=== PATIENT | female | born 1950 | race Caucasian/White ===

== ENCOUNTER 2020-03-21 10:30 | Outpatient (REF) | payer MEDICARE, SELFPAY ==
--- NOTE | 2020-03-21 | XR_ITS ---
EXAMINATION: XR CHEST CLINICAL INFORMATION: Asthma COMPARISON: 06/15/2019 TECHNIQUE: 2 views of the chest were obtained. FINDINGS: No focal consolidation, pulmonary edema, or pleural effusion. The lungs are hyperinflated. Stable cardiomediastinal silhouette. IMPRESSION: No acute cardiopulmonary findings. COPD.
== END 2020-03-21 10:31 | disposition home or self-care (01) ==
LOC: HO.HMGCX 10:30
PROVIDERS: PCP Family Medicine; Visit Provider Internal Medicine
DX: J45.40 Moderate persistent asthma, uncomplicated (principal)
CPT/HCPCS: 71046

== ENCOUNTER → 2020-07-17 11:40 | Outpatient (BNV) | payer MEDICARE, SELFPAY | PROVIDERS: Visit Provider Internal Medicine Medical Oncology | DX: D64.9 Anemia, unspecified (principal); D51.9 Vitamin B12 deficiency anemia, unspecified | CPT/HCPCS: 99213; 99214; 99443 ==

== ENCOUNTER → 2020-07-23 08:25 | Outpatient (BNVA) | payer MEDICARE, SELFPAY | PROVIDERS: PCP Nurse Practitioner Family; Referring Provider Nurse Practitioner Family; Visit Provider Internal Medicine Endocrinology, Diabetes & Metabolism | DX: M81.0 Age-related osteoporosis without current pathological fracture (principal); E03.9 Hypothyroidism, unspecified; E55.9 Vitamin D deficiency, unspecified | CPT/HCPCS: 99212 ==

== ENCOUNTER 2020-07-23 09:04 | Outpatient (REF) | payer MEDICARE, SELFPAY ==
[2020-07-23 10:10] LABS: Basophils Percent Auto 1.2 % (0-2); Eosinophils Absolute Auto 0.1 X10*3/uL (0.0-0.4); Eosinophils Percent Auto 2.4 % (0-4); Hematocrit 33.9 % (37-47); Hemoglobin 10.5 g/dl (12.0-16.0); Lymphocytes Absolute Auto 1.3 X10*3/uL (1.2-4.9); Lymphocytes Percent Auto 39.4 % (20-40); MANUAL DIFF FLAG NO; Mean Corpuscular Hemoglobin 28.1 pg (27.0-33.0); Mean Corpuscular Volume 90.6 fL (80-98); Mean Platelet Volume 10.5 fL (9.4-12.3); Monocytes Absolute Auto 0.4 X10*3/uL (0.1-1.2); Monocytes Percent Auto 11.6 % (2-11); Neutrophils Absolute Auto 1.5 X10*3/uL (2.0-8.3); Neutrophils Percent Auto 45.4 % (45-73); Platelet Count 278 X10*3/uL (160-400); Red Blood Count 3.74 X10*6/uL (4.20-5.50); Red Cell Distribution Width 14.9 % (11.0-16.0); White Blood Count 3.4 X10*3/uL (4.8-10.8)
[2020-07-23 11:09] LABS: Ferritin 7 ng/mL (10-250)
[2020-07-23 11:20] LABS: Alanine Aminotransferase 12 U/L (0-31); Albumin Level 4.1 g/dL (3.5-5.0); Alkaline Phosphatase 48 U/L (39-117); Anion Gap 10 (12-20); Aspartate Amino Transferase 20 U/L (5-31); Bilirubin Total 0.4 mg/dL (0.0-1.0); Blood Urea Nitrogen 18 mg/dL (9-16); Calcium 9.3 mg/dL (8.4-10.2); Carbon Dioxide 26 mmol/L (22-29); Chloride 108 mmol/L (96-108); Estimated Glomerular Filt Rate 59; Glucose Random 125 mg/dL (60-115); Iron 69 mcg/dL (30-160); Percent Iron Saturation 17 % (15-50); Sodium 139 mmol/L (135-145); Total Iron Binding Capacity 409 mcg/dL (228-428); Total Protein 6.6 g/dL (6.5-8.0); Unsaturated Iron Binding 340 ug/dL
[2020-07-23 11:21] LABS: Folate > 20.0 ng/mL (> or = 4.0); Vitamin B12 165 pg/mL (200-900)
[2020-07-23 11:30] LABS: Free T4 (Free Thyroxine) 1.44 ng/dL (0.71-1.85); Thyroid Stimulating Hormone 0.07 uIU/mL (0.32-4.0); Vitamin D 25-OH Total 115.8 ng/mL (>30)
[2020-07-24 09:53] LABS: Calcium (PTHI) 9.7 mg/dL (8.6-10.4); PTHI 34 pg/mL (14-64)
[2020-07-27 14:56] LABS: N-Telopeptide 38 (see note); NTXCreaRU 123 mg/dL (20-275)
== END 2020-07-23 09:05 | disposition home or self-care (01) ==
LOC: HO.10HDL 09:04
PROVIDERS: Internal Medicine Medical Oncology; Visit Provider Internal Medicine Endocrinology, Diabetes & Metabolism
DX: M81.0 Age-related osteoporosis without current pathological fracture (principal); D50.9 Iron deficiency anemia, unspecified
CPT/HCPCS: 36415; 80053; 82306; 82523; 82607; 82728; 82746; 83540; 83970; 84439; 84443; 85025

== ENCOUNTER 2020-08-06 10:15 | Outpatient (REF) | payer MEDICARE, SELFPAY ==
[2020-08-06 12:56] LABS: Glucose Urine UA NEG (NEG); Leukocyte Esterase Urine 1+ (NEG); Nitrite Urine POS (NEG); PH 6.5 (5.0-8.0); Urine Blood NEG (NEG); Urine Ketones NEG (NEG); Urine Protein NEG (NEG-TRACE)
[2020-08-06 13:03] LABS: Bacteria Urine 3+ /LPF; Mucus Urine TRACE /LPF; RBC Urine 0 /HPF (0); Squamous Epithelial Cell Urine TRACE /LPF
[2020-08-06 13:56] LABS: Appearance Urine CLOUDY; Color Urine YELLOW
== END 2020-08-06 10:16 | disposition home or self-care (01) ==
LOC: HO.LAB 10:15
PROVIDERS: PCP Family Medicine; Visit Provider Internal Medicine
DX: R30.0 Dysuria (principal); E03.9 Hypothyroidism, unspecified; E53.8 Deficiency of other specified B group vitamins; E55.9 Vitamin D deficiency, unspecified; D50.9 Iron deficiency anemia, unspecified; M81.0 Age-related osteoporosis without current pathological fracture; Z79.82 Long term (current) use of aspirin; Z79.84 Long term (current) use of oral hypoglycemic drugs; Z79.899 Other long term (current) drug therapy
CPT/HCPCS: 81001; 87040; 87086; 87186; Q3014

== ENCOUNTER → 2020-08-10 10:25 | Outpatient (BNVA) | payer MEDICARE, SELFPAY | PROVIDERS: PCP Family Medicine; Visit Provider Nurse Practitioner | DX: Z13.89 Encounter for screening for other disorder (principal) | CPT/HCPCS: Q3014 ==

== ENCOUNTER → 2020-09-11 10:27 | Outpatient (BNVA) | payer MEDICARE, SELFPAY | PROVIDERS: PCP Family Medicine; Visit Provider Nurse Practitioner | DX: K59.04 Chronic idiopathic constipation (principal); K21.9 Gastro-esophageal reflux disease without esophagitis; K31.84 Gastroparesis | CPT/HCPCS: Q3014 ==

== ENCOUNTER → 2020-09-12 13:35 | Outpatient (BNVA) | payer MEDICARE, SELFPAY | PROVIDERS: PCP Family Medicine; Visit Provider Urology | DX: N39.0 Urinary tract infection, site not specified (principal) | CPT/HCPCS: 81002; 99202 ==

== ENCOUNTER 2020-09-19 09:05 | Outpatient (REF) | payer MEDICARE, SELFPAY ==
--- NOTE | ~2020-09-19 | MM_ITS ---
EXAMINATION: BONE DENSITOMETRY CLINICAL INDICATION: Osteoporosis. COMPARISON: Previous BD dated 09/10/2018 and baseline BD dated 09/29/2008. TECHNIQUE: Using a [employer] DXA System (software version: 13.1) manufactured by [employer], dual-energy x-ray absorptiometry was performed of the lumbar spine and left hip. The images are of good technical quality. Summary results are attached. FINDINGS: AP SPINE L1-L4: Current: BMD 0.707 g/cm2, Z-score -1.7, T-score -3.9, osteoporosis, 4.6% decrease from previous, 24.2% decrease from baseline (<5% change is not significant). Prior: BMD 0.741 g/cm2. Baseline: BMD 0.933 g/cm2. LEFT FEMUR, NECK: Current: BMD 0.783 g/cm2, Z-score 0.2, T-score -1.8, osteopenia. Prior: BMD 0.813 g/cm2. Baseline: BMD 0.914 g/cm2. LEFT FEMUR, TOTAL: Current: BMD 0.872 g/cm2, Z-score 0.7, T-score -1.1, osteopenia, 2.9% decrease from previous, 12.2% decrease from baseline (<5% change is not significant). Prior: BMD 0.898 g/cm2. Baseline: BMD 0.993 g/cm2. IDENTIFIED RISK FACTORS: Early menopause, osteoporosis, renal, rheumatoid arthritis, secondary osteoporosis, anticonvulsant. HISTORY OF FRACTURE: None listed. MEDICATIONS: Calcium, vitamin D. MM/XR DEXA axial skeleton IMPRESSION: 1. DIAGNOSIS: Osteoporosis based on the lowest T-score value of -3.9 in the lumbar spine applying World Health Organization criteria. 2. 10-YEAR FRACTURE RISK PREDICTION, FRAX: According to the guidelines, FRAX calculation should only be performed on patients in the osteopenia bone density category. Therefore, FRAX was not performed on this patient. 3. Treatment Recommendations: NOF guidelines recommend consideration for treatment in postmenopausal women and men age 50 and older presenting with the following: -A hip or vertebral (clinical or morphometric) fracture. -T-score less than or equal to -2.5 at the femoral neck or spine after appropriate evaluation to exclude secondary causes. -Low bone mass at the hip or spine and a 10-year fracture probability by FRAX of greater than or equal to 3% for hip fracture or greater than or equal to 20% for major osteoporotic fracture based on the [place] adapted WHO algorithm. 4. Other Recommendations: All treatment decisions require clinical judgment and consideration of individual patient factors, including patient preferences, comorbidities, previous drug use, risk factors not captured in the FRAX model (e.g. frailty, falls, vitamin D deficiency, increased bone turnover, interval significant decline in bone density) and possible under or overestimation of fracture risk by FRAX. Additional medical evaluation for secondary cause of low bone mineral density may be appropriate. FUTURE SCAN RECOMMENDATION: People with diagnosed cases of osteoporosis or at high risk for fracture should have regular bone mineral density tests. For patients eligible for Medicare, routine testing is allowed once every 2 years. The testing frequency can be increased to one year for patients who have rapidly progressing disease, those who are receiving or discontinuing medical therapy to restore bone mass, or have additional risk factors.
== END 2020-09-19 09:06 | disposition home or self-care (01) ==
LOC: HO.MAMMO 09:05
PROVIDERS: PCP Family Medicine; Visit Provider Internal Medicine Endocrinology, Diabetes & Metabolism
DX: M81.0 Age-related osteoporosis without current pathological fracture (principal); M06.9 Rheumatoid arthritis, unspecified; Z78.0 Asymptomatic menopausal state; Z79.899 Other long term (current) drug therapy
CPT/HCPCS: 77080

== ENCOUNTER 2020-10-04 10:32 | Emergency (ER) | payer MEDICARE, SELFPAY ==
--- NOTE | ~2020-10-04 | XR_ITS ---
EXAMINATION: XR LUMBOSACRAL SPINE CLINICAL INFORMATION: Pain. No trauma. COMPARISON: February 28, 2019 TECHNIQUE: Three views of the lumbosacral spine. FINDINGS: There is osteopenia visualized bones. There are 5 nonrib bearing lumbar vertebra. No acute fracture identified. There is narrowing of the L5-S1 disc space with mild grade 1 spondylolisthesis L5-S1. There is bilateral facet arthropathy at L5-S1. Pedicles intact. No evidence of widening or fusion of the sacroiliac joints. Status post previous abdominal surgery. There are prominent vascular calcifications present. XR/XR lumbar spine 2-3V IMPRESSION: No acute fracture identified. Osteopenia. Degenerative disc disease with bilateral facet arthropathy L5-S1
[2020-10-04 10:49] VITALS: BP 124/64; PULSE 84; RESP 18; TEMP 36.1; O2SAT 100; BMI 18.6
--- NOTE | 2020-10-04 10:50 | ED.BACK ---
HPI - Back Pain/Injury General Chief Complaint: General Medical Stated Complaint: back pain Time Seen by Provider: 10/04/20 10:38 Source: patient and educational interpreter Mode of arrival: ambulatory Limitations: language barrier History of Present Illness HPI Narrative: 69 yo female with a past medical history of hypertension, hyperlipidemia, hypothyroidism, fibromyalgia, diabetes, asthma, iron deficiency anemia, recurrent urinary tract infection, GERD, osteoporosis, IBS, vitamin-D deficiency here with complaints of entire back pain for 4 days. No injury or trauma. Taking tramadol with continued pain. Also having some suprapubic discomfort with urinary frequency. No dysuria, flank pain, nausea, vomiting, fevers, chills. Pain radiates to bilateral legs. There is no numbness or tingling. No bowel or bladder incontinence. MD elicited complaint: back pain Related Data Home Medications Medication Instructions Recorded Confirmed ascorbic acid (vitamin C) [Vitamin 500 mg PO BID 07/17/20 09/11/20 C] aspirin [Aspir-81] 81 mg PO DAILY 07/17/20 09/11/20 clonazepam 0.5 mg PO TID 07/17/20 09/11/20 cyanocobalamin (vitamin B-12) 1,000 mcg PO DAILY 07/17/20 09/11/20 ferrous sulfate [Iron (ferrous 325 mg PO TID 07/17/20 09/11/20 sulfate)] gabapentin 100 mg PO TID 07/17/20 09/11/20 metformin 500 mg PO DAILY 07/17/20 09/11/20 metoprolol succinate 25 mg PO DAILY 07/17/20 09/11/20 zolpidem 5 mg PO BEDTIME PRN 07/17/20 09/11/20 topiramate 50 mg tablet 0 mg PO 07/23/20 09/11/20 cyanocobalamin (vitamin B-12) 1,000 mcg SUBLINGUAL DAILY 08/10/20 09/11/20 1,000 mcg sublingual tablet fluticasone 500 mcg-salmeterol 50 ea INHALATION 08/10/20 09/11/20 mcg/dose blistr powdr for inhalation montelukast 10 mg tablet 10 mg PO DAILY 08/10/20 09/11/20 venlafaxine 150 mg 150 mg PO DAILY 08/10/20 09/11/20 capsule,extended release 24 hr zolpidem 10 mg tablet 10 mg PO BEDTIME PRN 08/10/20 09/11/20 blood sugar diagnostic #10 ea 09/12/20 calcium citrate 200 mg 2 tab PO BID 09/12/20 calcium-vitamin D3 6.25 mcg (250 unit) tablet clonazepam 1 mg tablet 1 mg PO TID PRN 09/12/20 dulaglutide 0.75 mg/0.5 mL 1.5 mg SUBCUT QWEEK 09/12/20 subcutaneous pen injector folic acid 1 mg tablet 1 mg PO DAILY 09/12/20 gabapentin 400 mg capsule 400 mg PO BID 09/12/20 lancets 33 gauge #100 ea 09/12/20 metformin 500 mg tablet,extended 500 mg PO BID 09/12/20 release 24 hr multivitamin-ferrous 0 tab PO 09/12/20 fumarate-folic acid 18 mg-400 mcg tablet sennosides 8.6 mg tablet 17.2 mg PO BEDTIME PRN 09/12/20 tiotropium bromide 1.25 2 puff PO DAILY 09/12/20 mcg/actuation mist for inhalation venlafaxine 75 mg capsule,extended 75 mg PO DAILY 09/12/20 release 24 hr Previous Rx's Medication Instructions Recorded prucalopride 2 mg tablet 2 mg PO DAILY #30 tab 03/21/20 tramadol 50 mg tablet 50 mg PO Q6H #120 tab 05/02/20 Tirosint 112 mcg capsule 112 mcg PO DAILY 30 Days #30 cap NS 07/23/20 cholecalciferol (vitamin D3) 50 50 mcg PO DAILY 30 Days #30 cap 07/23/20 mcg (2,000 unit) capsule calcium citrate 500 mg PO BID 30 Days #120 tab 08/10/20 metoclopramide HCl 10 mg tablet 10 mg PO .tid ac 30 Days #90 tab 08/10/20 omeprazole 40 mg capsule,delayed 40 mg PO BID 30 Days #60 cap 08/10/20 release sennosides 8.6 mg capsule 17.2 mg PO BEDTIME 30 Days #60 cap 08/10/20 simethicone 180 mg capsule 180 mg PO QID 30 Days #120 cap 08/10/20 methenamine hippurate 1 gram tablet 1 g PO BID 30 Days #60 tab 09/12/20 sulfamethoxazole 800 1 tab PO BID 14 Days #28 tab 03/31/21 mg-trimethoprim 160 mg tablet sulfamethoxazole 800 1 tab PO BID 14 Days #28 tab 09/12/20 mg-trimethoprim 160 mg tablet [id number] 1 cap PO QID #120 cap 09/27/20 24,000-76,000-120,000 unit capsule,delayed rel oxycodone 5 mg PO Q6H PRN #5 tab 10/04/20 sulfamethoxazole-trimethoprim 1 tab PO BID #14 tab 10/04/20 [Bactrim DS] Allergies Allergy/AdvReac Type Severity Reaction Status Date / Time No Known Allergies Allergy Verified 09/11/20 10:29 [No Known Allergies*] Review of Systems Review of Systems: Yes all other systems are reviewed and are negative Constitutional: Constitutional: Reports no additional constitutional complaints, Denies body ache(s), Denies chills, Denies fever(s), Denies headache(s) and Denies weakness Eyes: Eyes: Reports no additional eye complaints and Denies change in vision ENT: Reports system reviewed and no additional complaints, except as documented, Denies dizziness, Denies headache(s), Denies nasal congestion, Denies nasal discharge and Denies neck pain Cardiovascular: Cardiovascular: Reports no additional cardiovascular complaints, Denies chest pain, Denies leg edema and Denies dyspnea Respiratory: Respiratory: Reports no additional respiratory complaints, Denies cough and Denies dyspnea Gastrointestinal: Gastrointestinal: Reports no additional gastrointestinal complaints, Denies abdominal pain, Denies diarrhea, Denies nausea and Denies vomiting Comments: +suprapubic discomfort Genitourinary: Genitourinary: Reports no additional female genitourinary complaints and Denies urinary incontinence Musculoskeletal: Musculoskeletal: Reports no additional musculoskeletal complaints, Reports back pain, Denies arthralgias, Denies joint swelling, Denies neck pain, Denies numbness and Denies tingling Integumentary/Breasts: Skin/Breast: Reports system reviewed and no additional complaints, except as docu and Denies rash Neurologic: Reports system reviewed and no additional complaints, except as documented, Denies Abnormal speech present, Denies dizziness, Denies headache(s), Denies numbness, Denies tingling and Denies weakness PMFSH Past Medical History Medical History B12 deficiency Dysuria Hypothyroidism Iron deficiency anemia Osteoporosis Vitamin D deficiency Surgical History History of arthroscopy of left shoulder History of esophagogastroduodenoscopy (EGD) Hx of colonoscopy Family History Family History Father No problems noted. Mother Heart attack Diabetes mellitus CVD (cardiovascular disease) Arthritis of knee Stomach cancer Sister ROZ-19 Social History Social History Household Members: None Alcohol intake: current Alcohol intake frequency: does not drink Smoking Status: Never smoker Advance Directives: No Advance Directives Information Provided: No Physical Exam Vital Signs: Vital Signs: Last Vital Signs Temp 97.0 F 10/04/20 10:49 Pulse 84 10/04/20 10:49 Resp 18 10/04/20 10:49 BP 124/64 10/04/20 10:49 Pulse Ox 100 10/04/20 10:49 Body Mass Index 18.6 Const: General: cooperative, healthy appearing, comfortable and no acute distress Orientation/consciousness: patient oriented x3 Limitations: no limitations HENMT: Head: Yes normal to inspection Ears: hearing grossly normal bilaterally General nose exam: Normal external nose present Face and sinus: Yes normal facial exam Mouth: Normal oral and palatal mucosa present Throat: Yes posterior oropharynx normal Eyes: General: appearance normal, both eyes and all related structures Pupils: Equal, round and reactive pupils present Neck: Neck: Yes normal visual inspection Chest: Chest palpation & inspection: normal inspection of the chest Resp: Effort & Inspection: normal respiratory effort Auscultation: clear to auscultation bilaterally Cardio: Rate: regular rate Rhythm: regular rhythm Peripheral pulses: Peripheral pulses 2+ throughout GI: Inspection: Yes normal to inspection Palpation (GI): Soft to palpation and nontender Auscultation: normal bowel sounds Back/Spine/Pelvis: Other: Entire back tenderness more focal in the lumbar mid spine with no step-offs deformities. No flank pain. No upper midline tenderness. Pain is worsened with flexion and extension of the lumbar spine. Worsened with straight leg raise Thoracic/Lumbar Spine: thoracic and lumbar spine normal to inspection Skin: General skin exam: no rashes or lesions noted Neuro: General: patient oriented x3, no focal motor deficits and normal sensation to monofilament Cranial nerves: Yes Equal, round and reactive pupils present Cognition (Neuro): normal cognition Speech: No Abnormal speech present Gait exam (Neuro): Normal gait present Motor exam (neuro): 5/5 motor strength present throughout Sensory Exam: Normal double simultaneous stimulation for sensation Deep tendon reflexes (DTR's): Right patellar reflex intensity grade: 2+ and Left patellar reflex intensity grade: 2+ Extrem: General: Yes normal to inspection Course Course Course Narrative: 69-year-old female here with atraumatic back pain. Will check x-rays, UA. 1240-x-ray showed no acute bony abnormality. UA is consistent with the UTI. Patient has urine cultures with ESBL. Sensitive to Bactrim only. Will give course of Bactrim. There is no CVA tenderness, vomiting, fever. Patient is well-appearing. Less likely pyelonephritis. Reviewed worrisome signs and symptoms with patient with japanese interpreter. Comfortable with discharge home. Spoke to pharmacy. D/t contraindication will hold methenamine when taking bactrim. MDM - Back Pain/Injury Medical Records Attestation: I reviewed the patient's medical records. Lab Data Attestation: I reviewed the patient's lab results. Labs: Lab Results 10/04/20 Range/Units 11:23 Urine Color YELLOW Urine Appearance HAZY Urine pH 5.5 (5.0-8.0) Ur Specific [place] >= 1.030 H (1.005-1.025) Urine Protein NEG (NEG-TRACE) MG/DL Urine Glucose (UA) NEG (NEG) MG/DL Urine Ketones NEG (NEG) MG/DL Urine Blood NEG (NEG) Urine Nitrite POS H (NEG) Ur Leukocyte Esterase NEG (NEG) Urine RBC 0 (0) /HPF Urine WBC 10-14 H (0-4) /HPF Ur Squamous Epith Cells TRACE /LPF Urine Bacteria 4+ /LPF Imaging Data lumbar xray: Attestation: I personally reviewed and interpreted this imaging study as follows: Radiologist's impression: [address] [id number] ReportSigned Patient: Slade MarcaMR#: [id number]: 2Acct:[id number]/Sex: 69 / FADM Date: 10/04/20Loc: HO.EDAttending Dr: Ordering Physician: PHILIPPE GREENE NP Date of Service: 10/04/20 Procedure(s): XR lumbar spine 2-3V Accession Number(s): [id number] cc: PHILIPPE GREENE NP~ EXAMINATION: XR LUMBOSACRAL SPINE CLINICAL INFORMATION: Pain. No trauma. COMPARISON: February 28, 2019 TECHNIQUE: Three views of the lumbosacral spine. FINDINGS: There is osteopenia visualized bones. There are 5 nonrib bearing lumbar vertebra. No acute fracture identified. There is narrowing of the L5-S1 disc space with mild grade 1 spondylolisthesis L5-S1. There is bilateral facet arthropathy at L5-S1. Pedicles intact. No evidence of widening or fusion of the sacroiliac joints. Status post previous abdominal surgery. There are prominent vascular calcifications present. XR/XR lumbar spine 2-3V IMPRESSION: No acute fracture identified. Osteopenia. Degenerative disc disease with bilateral facet arthropathy L5-S1 Discharge Plan Discharge Clinical Impression: Recurrent UTI (urinary tract infection), Lumbar back pain Patient Disposition: Home, Self-Care Instructions: Back Pain (ED), Urinary Tract Infection in Older Adults (ED) Additional Instructions: Heat or ice Gentle stretching Start antibiotics today Follow with Urology for your recurrent urinary tract infections Return for fever greater than 100.4, 2 or more episodes of vomiting Prescriptions: New sulfamethoxazole-trimethoprim [Bactrim DS] 800-160 mg tablet 1 tab PO BID Qty: 14 RF: 0 oxycodone 5 mg tablet 5 mg PO Q6H PRN (Reason: pain) Qty: 5 RF: 0 No Action Motegrity 2 mg tablet 2 mg PO DAILY Qty: 30 RF: 3 tramadol 50 mg tablet 50 mg PO Q6H Qty: 120 RF: 5 levothyroxine [Tirosint] 112 mcg capsule 112 mcg PO DAILY 30 Days Qty: 30 RF: 6 cholecalciferol (vitamin D3) 50 mcg (2,000 unit) capsule 50 mcg PO DAILY 30 Days Qty: 30 RF: 6 calcium citrate 250 mg calcium tablet 500 mg PO BID 30 Days Qty: 120 RF: 6 methenamine hippurate 1 gram tablet 1 g PO BID 30 Days Qty: 60 RF: 11 [id number] [Creon] 24,000-76,000 -120,000 unit capsule,delayed release(DR/EC) 1 cap PO QID Qty: 120 RF: 0 metformin 500 mg Tablet 500 mg PO DAILY RF: 0 clonazepam 0.5 mg Tablet 0.5 mg PO TID RF: 0 aspirin [Aspir-81] 81 mg Tablet,Delayed Release (Dr/Ec) 81 mg PO DAILY RF: 0 ascorbic acid (vitamin C) [Vitamin C] 500 mg Tablet 500 mg PO BID RF: 0 ferrous sulfate [Iron (ferrous sulfate)] 325 mg (65 mg iron) Tablet 325 mg PO TID RF: 0 zolpidem 5 mg Tablet 5 mg PO BEDTIME PRN (Reason: Insomnia) RF: 0 gabapentin 100 mg Capsule 100 mg PO TID RF: 0 metoprolol succinate 25 mg Tablet Extended Release 24 Hr 25 mg PO DAILY RF: 0 cyanocobalamin (vitamin B-12) 1,000 mcg Capsule 1,000 mcg PO DAILY RF: 0 sulfamethoxazole-trimethoprim [Bactrim DS] 800-160 mg tablet 1 tab PO BID 14 Days Qty: 28 RF: 0 sulfamethoxazole-trimethoprim [Bactrim DS] 800-160 mg tablet 1 tab PO BID 14 Days Qty: 28 RF: 0 topiramate 50 mg tablet 0 mg PO RF: 0 montelukast 10 mg tablet 10 mg PO DAILY RF: 0 cyanocobalamin (vitamin B-12) 1,000 mcg tablet, sublingual 1,000 mcg sublingual DAILY RF: 0 fluticasone propion-salmeterol 500-50 mcg/dose blister with device inhalation RF: 0 venlafaxine 150 mg capsule,extended release 24hr 150 mg PO DAILY RF: 0 zolpidem 10 mg tablet 10 mg PO BEDTIME PRNRF: 0 omeprazole 40 mg capsule,delayed release(DR/EC) 40 mg PO BID 30 Days Qty: 60 RF: 4 metoclopramide HCl [Reglan] 10 mg tablet 10 mg PO .tid ac 30 Days Qty: 90 RF: 4 senna 8.6 mg capsule 17.2 mg PO BEDTIME 30 Days Qty: 60 RF: 3 simethicone 180 mg capsule 180 mg PO QID 30 Days Qty: 120 RF: 3 Referrals: Ryan Burrows MD [Physician] - 2 days Interventions: ED Discharge Assessment Last Done: 10/04/20 12:20 Discharge Date/Time: 10/04/20 12:22 Print Language: Beninese
[2020-10-04 11:52] LABS: Glucose Urine UA NEG (NEG); Leukocyte Esterase Urine NEG (NEG); Nitrite Urine POS (NEG); PH 5.5 (5.0-8.0); Specific Gravity - Urine >= 1.030 (1.005-1.025); UACC Culture Trigger YES; Urine Blood NEG (NEG); Urine Ketones NEG (NEG); Urine Protein NEG (NEG-TRACE)
[2020-10-04 11:55] LABS: Appearance Urine HAZY; Color Urine YELLOW
[2020-10-04 12:08] LABS: Bacteria Urine 4+ /LPF; RBC Urine 0 /HPF (0); Squamous Epithelial Cell Urine TRACE /LPF
== END 2020-10-04 12:22 | disposition home or self-care (01) ==
PROVIDERS: Nurse Practitioner Family; Emergency Provider Emergency Medicine; PCP Family Medicine
DX: N39.0 Urinary tract infection, site not specified (principal); Z87.440 Personal history of urinary (tract) infections; M54.5 Low back pain
CPT/HCPCS: 72100; 81001; 81003; 87086; 87088; 87186; 99283

== ENCOUNTER → 2020-10-05 08:29 | Outpatient (BNVA) | payer MEDICARE, SELFPAY | PROVIDERS: PCP Family Medicine; Visit Provider Student in an Organized Health Care Education/Training Program | DX: M54.40 Lumbago with sciatica, unspecified side (principal) | CPT/HCPCS: 99212 ==

== ENCOUNTER 2020-10-09 07:51 | Inpatient (IN) | payer MEDICARE, SELFPAY ==
--- NOTE | ~2020-10-09 | CT_ITS ---
EXAMINATION: CT HEAD WITHOUT CONTRAST CT CERVICAL SPINE WITHOUT CONTRAST CLINICAL INFORMATION: Fall. COMPARISON: Previous head and cervical spine CT February 2019 TECHNIQUE: Axial images through the head and cervical spine without contrast. Sagittal and coronal reconstructions on the technologist workstation were performed. Patient Dose: 593 plus 272 mGy-cm. This CT examination was performed using dose optimization techniques as appropriate, variously including the following: *Automated exposure control *Adjustment of mA and/or kV according to patient size (this includes techniques or standardized protocols for targeted exams where dose is matched to indication/reason for exam; i.e. extremities or head) *Use of iterative reconstruction technique FINDINGS: HEAD CT: There is no evidence of an extra-axial collection. There is no evidence of intra-axial or extra-axial hemorrhage. The ventricles and extra-axial CSF spaces are prominent suggestive of mild generalized atrophy. There is low-attenuation seen in the periventricular white matter. There is a small right basal ganglia lacunar infarct. No mass, mass effect or acute infarct is seen. Review of bone windows is normal. No skull fracture is seen. Visualized paranasal sinuses are clear. The middle ears are clear. There is increased sclerosis and soft tissue opacification of the right mastoid air cells. This is unchanged from previous exams. CERVICAL SPINE: Bone alignment is normal. No fracture or dislocation is seen. There are postsurgical changes with anterior fusion hardware seen at C3-C4. There is bony ankylosis of the C3-C4 disc space level. There is degenerative spondylosis and degenerative disc disease at C4-C5. There is degenerative spondylosis at C5-C6. There are soft tissue calcifications or ossifications adjacent to the C5 and C6 spinous processes likely related to old soft tissue trauma. Prevertebral soft tissues are normal. There is bilateral carotid calcification. There is airspace disease seen in the right upper lobe. There is well-corticated soft tissue ossification adjacent to the right medial superior clavicular head likely related to old trauma. CT/CT cervical spine wo con IMPRESSION: HEAD CT: No acute findings. Mild generalized atrophy and nonspecific periventricular white matter disease. CERVICAL SPINE CT: No fracture or dislocation seen. Postsurgical changes at C3-C4 and degenerative changes. Airspace disease in the right upper lobe questionable for pneumonia.
--- NOTE | ~2020-10-09 | CT_ITS ---
EXAM: CT scan of the chest, abdomen, and pelvis. INDICATION: Fall down stairs COMPARISON: Chest x-ray March 21, [address] abdomen pelvis June 15, 2019 TECHNIQUE: Multidetector helical imaging of the chest, abdomen, and pelvis was obtained from the thoracic inlet through the pubic symphysis. Coronal and sagittal reformatted images that were obtained were also reviewed. Evaluation of solid organs is limited given lack of IV contrast. DLP: 775 mGy-cm FINDINGS: CHEST: Nodular airspace disease is present within the right upper and lower lobes. There is no pleural effusion. No pneumothorax identified. Mild dependent atelectasis is appreciated. The heart is normal in size. Coronary artery calcifications are present. There is no pericardial effusion. No gross mediastinal lymphadenopathy appreciated on today's noncontrast imaging. ABDOMEN/PELVIS: The liver is normal in size. The gallbladder is surgically absent. Fatty atrophy of the pancreas. The spleen and adrenal glands are unremarkable. Symmetrically enhancing kidneys without renal calculi or hydronephrosis. Postsurgical changes of the stomach consistent with gastric bypass. Normal caliber loops of small bowel. Moderate stool burden throughout the entirety of the colon. Normal appendix. Nonaneurysmal abdominal aorta. The bladder is well-distended but otherwise unremarkable in appearance. Unremarkable CT appearance of the uterus. No gross free pelvic fluid. No inguinal lymphadenopathy. OSSEOUS STRUCTURES Diffuse osteopenia. Mild to moderate diffuse degenerative changes of the thoracolumbar spine. No rib fracture identified. Small sclerotic foci within the bony pelvis are stable and likely benign. CT/CT abdomen pelvis wo con IMPRESSION: 1. Nodular airspace disease is present within the right upper and lower lobe. Findings are most suggestive of multilobar pneumonia. Clinical correlation recommended. Follow-up imaging suggested status post treatment to ensure resolution. 2. No CT evidence for acute abnormality within the abdomen or pelvis. This CT examination was performed using dose optimization techniques as appropriate, variously including the following: *Automated exposure control *Adjustment of mA and/or kV according to patient size (this includes techniques or standardized protocols for targeted exams where dose is matched to indication/reason for exam; i.e. extremities or head) *Use of iterative reconstruction technique
--- NOTE | ~2020-10-09 | FL_ITS ---
EXAMINATION: FL MODIFIED BARIUM SWALLOW CLINICAL INFORMATION: Possible aspiration. Difficulty swallowing. COMPARISON: CT chest non-contrast 10/09/2020. TECHNIQUE: Modified barium swallow examination is performed with imaging in the lateral view and the presence of the speech pathologist using a variety of barium consistencies. The exam is performed with fluoroscopic evaluation, videofluoroscopy, and some fluoroscopic spot views. Fluoroscopy time: 2.8 minutes DAP: 1.12 Gycm2 Fluoroscopic spot images: 2 FINDINGS: There is no aspiration or laryngeal penetration. No nasopharyngeal reflux. There is intermittent posterior lingual escape with contrast entering the vallecula and piriform sinuses prior to intentional swallowing. A few episodes of mild retention of contrast in the vallecula is present after swallowing with thicker barium consistencies. See speech pathologist report for further assessment and recommendation. FL/FL barium swallow modified IMPRESSION: 1. No aspiration or laryngeal penetration. 2. See speech pathologist report for further assessment and recommendation.
--- NOTE | 2020-10-09 08:08 | ECG_ITS ---
Test Reason : FALL Blood Pressure : / mmHG Vent. Rate : 102 BPM Atrial Rate : 102 BPM P-R Int : 152 ms QRS Dur : 084 ms QT Int : 334 ms P-R-T Axes : 060 027 022 degrees QTc Int : 435 ms Sinus tachycardia Otherwise normal ECG When compared with ECG of 15-JUN-2019 11:51, Non-specific change in ST segment in Anterior leads Referred By: Mariela Almonte Electronically Signed By:CINDY WASHINGTON MD
[2020-10-09 08:13] LABS: Glucose, Whole Blood 71 mg/dL (60-115)
[2020-10-09 08:28] VITALS: BP 127/64; PULSE 100; RESP 18; TEMP 38.5; O2SAT 98; BMI 18.7
--- NOTE | 2020-10-09 08:28 | ED_ITS ---
HPI - Altered Mental Status General Chief Complaint: Fall Stated Complaint: FALL,BACK/NECK PAIN Time Seen by Provider: 10/09/20 08:06 Source: patient, EMS and house visitor Mode of arrival: EMS Limitations: altered mental status History of Present Illness HPI narrative: 69 yo female with recurrent ESBL+ UTI, GERD, IBS, back pain - just dx with E. Coli UTI S to bactrim (+ESBL) only started on 10/04 - comes in with c/o fall but unsure when family stated today she notes 1 month ago but she is confused, c/o back pain MD complaint: altered mental status, confusion and other (fall) Onset (ago): unknown Severity: moderate Consistency of symptoms: constant Context: history of similar presentation, trauma and other (recurrent UTI) Associated symptoms: chills, malaise and weakness Related Data Home Medications Medication Instructions Recorded Confirmed ascorbic acid (vitamin C) [Vitamin 500 mg PO BID 07/17/20 10/09/20 C] aspirin [Aspir-81] 81 mg PO DAILY 07/17/20 10/09/20 ferrous sulfate [Iron (ferrous 325 mg PO TID 07/17/20 10/09/20 sulfate)] topiramate 50 mg tablet 50 mg PO BEDTIME 07/23/20 10/09/20 cyanocobalamin (vitamin B-12) 1,000 mcg SUBLINGUAL DAILY 08/10/20 10/09/20 1,000 mcg sublingual tablet fluticasone 500 mcg-salmeterol 50 1 inh INHALATION BID 08/10/20 10/09/20 mcg/dose blistr powdr for inhalation montelukast 10 mg tablet 10 mg PO BEDTIME 08/10/20 10/09/20 venlafaxine 150 mg 150 mg PO DAILY 08/10/20 10/09/20 capsule,extended release 24 hr zolpidem 10 mg tablet 10 mg PO BEDTIME 08/10/20 10/09/20 blood sugar diagnostic #10 ea 09/12/20 calcium citrate 200 mg 2 tab PO BID 09/12/20 10/09/20 calcium-vitamin D3 6.25 mcg (250 unit) tablet clonazepam 1 mg tablet 1 mg PO TID PRN 09/12/20 10/09/20 dulaglutide 0.75 mg/0.5 mL 0.75 mg SUBCUT QWEEK 09/12/20 10/09/20 subcutaneous pen injector folic acid 1 mg tablet 1 mg PO DAILY 09/12/20 10/09/20 gabapentin 400 mg capsule 400 mg PO TID 09/12/20 10/09/20 lancets 33 gauge #100 ea 09/12/20 metformin 500 mg tablet,extended 500 mg PO BID 09/12/20 10/09/20 release 24 hr multivitamin-ferrous 1 tab PO DAILY 09/12/20 10/09/20 fumarate-folic acid 18 mg-400 mcg tablet sennosides 8.6 mg tablet 17.2 mg PO BEDTIME PRN 09/12/20 10/09/20 tiotropium bromide 1.25 2 puff PO DAILY 09/12/20 10/09/20 mcg/actuation mist for inhalation venlafaxine 75 mg capsule,extended 75 mg PO DAILY 09/12/20 10/09/20 release 24 hr Creon 1 cap PO QIDWMHS 10/09/20 10/09/20 metoclopramide HCl [Reglan] 10 mg PO TIDAC 10/09/20 10/09/20 oxycodone 5 mg PO Q6H PRN 10/09/20 10/09/20 Previous Rx's Medication Instructions Recorded Tirosint 112 mcg capsule 112 mcg PO DAILY 30 Days #30 cap NS 07/23/20 cholecalciferol (vitamin D3) 50 50 mcg PO DAILY 30 Days #30 cap 07/23/20 mcg (2,000 unit) capsule omeprazole 40 mg capsule,delayed 40 mg PO BID 30 Days #60 cap 08/10/20 release simethicone 180 mg capsule 180 mg PO QID 30 Days #120 cap 08/10/20 sulfamethoxazole-trimethoprim 1 tab PO BID #14 tab 10/04/20 [Bactrim DS] tramadol 50 mg tablet 50 mg PO Q6H #120 tab 10/05/20 Allergies Allergy/AdvReac Type Severity Reaction Status Date / Time No Known Allergies Allergy Verified 10/05/20 08:34 [No Known Allergies*] Review of Systems Review of Systems: ROS unable to be obtained due to altered mental status PMFSH Past Medical History Attestation statement: The following information was validated with the patient. Medical History B12 deficiency Dysuria Hypothyroidism Iron deficiency anemia Osteoporosis Vitamin D deficiency Surgical History History of arthroscopy of left shoulder History of esophagogastroduodenoscopy (EGD) Hx of colonoscopy Family History Family History Father No problems noted. Mother Heart attack Diabetes mellitus CVD (cardiovascular disease) Arthritis of knee Stomach cancer Sister COVID-19 Social History Social History Household Members: None Alcohol intake: current Alcohol intake frequency: does not drink Smoking Status: Never smoker Advance Directives: No Advance Directives Information Provided: No Physical Exam Vital Signs: Vital Signs: Last Vital Signs Temp 98.6 F 10/09/20 11:43 Pulse 92 10/09/20 11:43 Resp 22 H 10/09/20 11:43 BP 108/50 L 10/09/20 11:43 Pulse Ox 98 10/09/20 11:43 Body Mass Index 18.7 Appearance: Alert. Oriented X2. Mild acute distress. Eyes: Pupils equal, round and reactive to light. ENT: Pharynx normal. Neck: Normal inspection. Neck supple. cevical collar in place CVS: tachycardic heart rate and rhythm. Pulses normal. Respiratory: No respiratory distress. Breath sounds normal. Abdomen: Soft and nontender. Back: ttp along lower lumbar spine Skin: Skin warm and dry. Normal skin color. Normal skin turgor. Extremities: No lower extremity edema. No calf ttp Neuro: Oriented X 2. No motor deficit. No sensory deficit. Course Course Course Narrative: added on doxy for possible pneumonia, planned admit, still has bacteria in her urine MDM - Altered Mental Status MDM Narrative Medical decision making narrative: 69 yo female comes in with c/o fall one month ago c/o back pain since then she is febrile and altered at this time, no obvious trauma but limited history will obtain trauma imaging of brain/cspine/chest/abdomen - she just had UTI with +ESBL started on bactrim but has had failure in the past labs, cultures, COVID swab, empiric meropenem likely admssion suspect her encephalopathy is from her UTI and fever, planned admit Lab Data Result diagrams: 10/09/20 08:46 10/09/20 08:46 Labs: Lab Results 10/09/20 10/09/20 10/09/20 Range/Units 08:10 08:27 08:44 WBC (4.8-10.8) X10*3/uL RBC (4.20-5.50) X10*6/uL Hgb (12.0-16.0) g/dl Hct (37-47) % MCV (80-98) fL MCH (27.0-33.0) pg MCHC (31.0-35.0) g/dl RDW (11.0-16.0) % Plt Count (160-400) X10*3/uL MPV (9.4-12.3) fL Immature Gran % (Auto) (0.0-0.4) % Neut % (Auto) (45-73) % Lymph % (Auto) (20-40) % [place] % (Auto) (2-11) % Eos % (Auto) (0-4) % Baso % (Auto) (0-2) % Lymph # (Auto) (1.2-4.9) X10*3/uL [place] # (Auto) (0.1-1.2) X10*3/uL Eos # (Auto) (0.0-0.4) X10*3/uL Baso # (Auto) (0.0-0.2) X10*3/uL Abs Immat Gran (auto) (0.00-0.03) X10*3/uL Absolute Neuts (auto) (2.0-8.3) X10*3/uL Absolute Nucleated RBC (0.0-0.012) X10*3/uL Nucleated RBC % (auto) (0.0-0.2) /100WBC PT (10.8-13.0) SEC INR (0.9-1.1) APTT (24.1-38.0) SEC Sodium (135-145) mmol/L Potassium (3.3-5.1) mmol/L Chloride (96-108) mmol/L Carbon Dioxide (22-29) mmol/L Anion Gap (12-20) BUN (9-16) mg/dL Creatinine (0.5-1.4) mg/dL Estim Creat Clear Calc Estimated GFR POC Glucose 71 (60-115) mg/dL Random Glucose (60-115) mg/dL Lactic Acid (0.5-2.0) mmol/L Calcium (8.4-10.2) mg/dL Magnesium (1.6-2.6) mg/dL Total Bilirubin (0.0-1.0) mg/dL Direct Bilirubin (0.0-0.5) mg/dL AST (5-31) U/L ALT (0-31) U/L Alkaline Phosphatase (39-117) U/L Total Creatine Kinase (26-140) U/L Troponin I High Sens (<3.5-17.0) ng/L Total Protein (6.5-8.0) g/dL Albumin (3.5-5.0) g/dL Lipase (8-78) U/L Urine Color STRAW Urine Appearance HAZY Urine pH 7.0 (5.0-8.0) Ur Specific [place] 1.015 (1.005-1.025) Urine Protein NEG (NEG-TRACE) MG/DL Urine Glucose (UA) NEG (NEG) MG/DL Urine Ketones NEG (NEG) MG/DL Urine Blood TRACE (NEG) Urine Nitrite NEG (NEG) Ur Leukocyte Esterase NEG (NEG) Urine RBC 1-4 (0) /HPF Urine WBC 1-4 (0-4) /HPF Ur Squamous Epith Cells TRACE /LPF Urine Bacteria 3+ /LPF COVID-19 (MARLY) Negative (Negative) COVID-19 Clin Com See Note 10/09/20 10/09/20 10/09/20 Range/Units 08:46 08:46 08:46 WBC 12.1 H (4.8-10.8) X10*3/uL RBC 3.88 L (4.20-5.50) X10*6/uL Hgb 10.7 L (12.0-16.0) g/dl Hct 33.8 L (37-47) % MCV 87.1 (80-98) fL MCH 27.6 (27.0-33.0) pg MCHC 31.7 (31.0-35.0) g/dl RDW 15.0 (11.0-16.0) % Plt Count 256 (160-400) X10*3/uL MPV 10.4 (9.4-12.3) fL Immature Gran % (Auto) 0.7 H (0.0-0.4) % Neut % (Auto) 85.7 H (45-73) % Lymph % (Auto) 5.8 L (20-40) % [place] % (Auto) 7.5 (2-11) % Eos % (Auto) 0.1 (0-4) % Baso % (Auto) 0.2 (0-2) % Lymph # (Auto) 0.7 L (1.2-4.9) X10*3/uL [place] # (Auto) 0.9 (0.1-1.2) X10*3/uL Eos # (Auto) 0.0 (0.0-0.4) X10*3/uL Baso # (Auto) 0.0 (0.0-0.2) X10*3/uL Abs Immat Gran (auto) 0.08 H (0.00-0.03) X10*3/uL Absolute Neuts (auto) 10.4 H (2.0-8.3) X10*3/uL Absolute Nucleated RBC 0.000 (0.0-0.012) X10*3/uL Nucleated RBC % (auto) 0.0 (0.0-0.2) /100WBC PT 11.5 (10.8-13.0) SEC INR 1.0 (0.9-1.1) APTT 29.8 (24.1-38.0) SEC Sodium 139 (135-145) mmol/L Potassium 3.9 D (3.3-5.1) mmol/L Chloride 105 (96-108) mmol/L Carbon Dioxide 25 (22-29) mmol/L Anion Gap 13 (12-20) BUN 15 (9-16) mg/dL Creatinine 0.86 (0.5-1.4) mg/dL Estim Creat Clear Calc 43.0 Estimated GFR > 60 POC Glucose (60-115) mg/dL Random Glucose 83 D (60-115) mg/dL Lactic Acid (0.5-2.0) mmol/L Calcium 9.5 (8.4-10.2) mg/dL Magnesium 1.9 (1.6-2.6) mg/dL Total Bilirubin 0.7 (0.0-1.0) mg/dL Direct Bilirubin 0.3 (0.0-0.5) mg/dL AST 35 H D (5-31) U/L ALT 36 H (0-31) U/L Alkaline Phosphatase 65 D (39-117) U/L Total Creatine Kinase 105 (26-140) U/L Troponin I High Sens (<3.5-17.0) ng/L Total Protein 6.6 (6.5-8.0) g/dL Albumin 4.1 (3.5-5.0) g/dL Lipase 8 (8-78) U/L Urine Color Urine Appearance Urine pH (5.0-8.0) Ur Specific [place] (1.005-1.025) Urine Protein (NEG-TRACE) MG/DL Urine Glucose (UA) (NEG) MG/DL Urine Ketones (NEG) MG/DL Urine Blood (NEG) Urine Nitrite (NEG) Ur Leukocyte Esterase (NEG) Urine RBC (0) /HPF Urine WBC (0-4) /HPF Ur Squamous Epith Cells /LPF Urine Bacteria /LPF COVID-19 (MALRY) (Negative) COVID-19 Clin Com 10/09/20 10/09/20 Range/Units 08:46 08:46 WBC (4.8-10.8) X10*3/uL RBC (4.20-5.50) X10*6/uL Hgb (12.0-16.0) g/dl Hct (37-47) % MCV (80-98) fL MCH (27.0-33.0) pg MCHC (31.0-35.0) g/dl RDW (11.0-16.0) % Plt Count (160-400) X10*3/uL MPV (9.4-12.3) fL Immature Gran % (Auto) (0.0-0.4) % Neut % (Auto) (45-73) % Lymph % (Auto) (20-40) % [place] % (Auto) (2-11) % Eos % (Auto) (0-4) % Baso % (Auto) (0-2) % Lymph # (Auto) (1.2-4.9) X10*3/uL [place] # (Auto) (0.1-1.2) X10*3/uL Eos # (Auto) (0.0-0.4) X10*3/uL Baso # (Auto) (0.0-0.2) X10*3/uL Abs Immat Gran (auto) (0.00-0.03) X10*3/uL Absolute Neuts (auto) (2.0-8.3) X10*3/uL Absolute Nucleated RBC (0.0-0.012) X10*3/uL Nucleated RBC % (auto) (0.0-0.2) /100WBC PT (10.8-13.0) SEC INR (0.9-1.1) APTT (24.1-38.0) SEC Sodium (135-145) mmol/L Potassium (3.3-5.1) mmol/L Chloride (96-108) mmol/L Carbon Dioxide (22-29) mmol/L Anion Gap (12-20) BUN (9-16) mg/dL Creatinine (0.5-1.4) mg/dL Estim Creat Clear Calc Estimated GFR POC Glucose (60-115) mg/dL Random Glucose (60-115) mg/dL Lactic Acid 1.1 (0.5-2.0) mmol/L Calcium (8.4-10.2) mg/dL Magnesium (1.6-2.6) mg/dL Total Bilirubin (0.0-1.0) mg/dL Direct Bilirubin (0.0-0.5) mg/dL AST (5-31) U/L ALT (0-31) U/L Alkaline Phosphatase (39-117) U/L Total Creatine Kinase (26-140) U/L Troponin I High Sens 10.3 (<3.5-17.0) ng/L Total Protein (6.5-8.0) g/dL Albumin (3.5-5.0) g/dL Lipase (8-78) U/L Urine Color Urine Appearance Urine pH (5.0-8.0) Ur Specific [place] (1.005-1.025) Urine Protein (NEG-TRACE) MG/DL Urine Glucose (UA) (NEG) MG/DL Urine Ketones (NEG) MG/DL Urine Blood (NEG) Urine Nitrite (NEG) Ur Leukocyte Esterase (NEG) Urine RBC (0) /HPF Urine WBC (0-4) /HPF Ur Squamous Epith Cells /LPF Urine Bacteria /LPF COVID-19 (MARLY) (Negative) COVID-19 Clin Com ECG Data ECG #1: Attestation: I personally reviewed and interpreted this ECG as follows: ECG interpretation date: 10/09/20 ECG interpretation time: 08:29 Interpretation: Rate: 102 Rhythm: sinus tachycardia [place]: normal Normal P waves. Normal SOHA. Normal QRS complex. ST T wave : no JORY, nonspecific qTC: normal prior studies: no sig change, artifact noted The study has been interpreted contemporaneously by me. . Discharge Plan Discharge Clinical Impression: Fever, Cystitis, Leukocytosis, Toxic encephalopathy, Pneumonia Patient Disposition: Admitted As Inpatient
[2020-10-09 08:37] LABS: Glucose Urine UA NEG (NEG); Leukocyte Esterase Urine NEG (NEG); Nitrite Urine NEG (NEG); Specific Gravity - Urine 1.015 (1.005-1.025); Urine Blood TRACE (NEG); Urine Ketones NEG (NEG); Urine Protein NEG (NEG-TRACE)
[2020-10-09 08:39] LABS: Appearance Urine HAZY; Color Urine STRAW
[2020-10-09 08:43] LABS: Bacteria Urine 3+ /LPF; Squamous Epithelial Cell Urine TRACE /LPF
[2020-10-09 08:51] LABS: MANUAL DIFF FLAG NO
[2020-10-09 08:56] LABS: Basophils Percent Auto 0.2 % (0-2); Eosinophils Percent Auto 0.1 % (0-4); Hematocrit 33.8 % (37-47); Hemoglobin 10.7 g/dl (12.0-16.0); Imm Gran Abs Auto 0.08 X10*3/uL (0.00-0.03); Imm Gran Pct Auto 0.7 % (0.0-0.4); Lymphocytes Absolute Auto 0.7 X10*3/uL (1.2-4.9); Lymphocytes Percent Auto 5.8 % (20-40); Mean Corpuscular HGB Conc 31.7 g/dl (31.0-35.0); Mean Corpuscular Hemoglobin 27.6 pg (27.0-33.0); Mean Corpuscular Volume 87.1 fL (80-98); Mean Platelet Volume 10.4 fL (9.4-12.3); Monocytes Absolute Auto 0.9 X10*3/uL (0.1-1.2); Monocytes Percent Auto 7.5 % (2-11); Neutrophils Absolute Auto 10.4 X10*3/uL (2.0-8.3); Neutrophils Percent Auto 85.7 % (45-73); Platelet Count 256 X10*3/uL (160-400); Red Blood Count 3.88 X10*6/uL (4.20-5.50); White Blood Count 12.1 X10*3/uL (4.8-10.8)
[2020-10-09 09:02] LABS: Prothrombin Time 11.5 SEC (10.8-13.0)
[2020-10-09 09:04] LABS: Partial Thromboplastin Time 29.8 SEC (24.1-38.0)
[2020-10-09 09:10] LABS: COVID-19 Test Negative (Negative)
[2020-10-09 09:20] LABS: Lactic Acid 1.1 mmol/L (0.5-2.0)
[2020-10-09 09:27] LABS: Alanine Aminotransferase 36 U/L (0-31); Albumin Level 4.1 g/dL (3.5-5.0); Alkaline Phosphatase 65 U/L (39-117); Anion Gap 13 (12-20); Aspartate Amino Transferase 35 U/L (5-31); Bilirubin Direct 0.3 mg/dL (0.0-0.5); Bilirubin Total 0.7 mg/dL (0.0-1.0); Blood Urea Nitrogen 15 mg/dL (9-16); Calcium 9.5 mg/dL (8.4-10.2); Carbon Dioxide 25 mmol/L (22-29); Chloride 105 mmol/L (96-108); Estimated Glomerular Filt Rate > 60; Glucose Random 83 mg/dL (60-115); Lipase 8 U/L (8-78); Magnesium 1.9 mg/dL (1.6-2.6); Potassium 3.9 mmol/L (3.3-5.1); Sodium 139 mmol/L (135-145); Total Protein 6.6 g/dL (6.5-8.0)
[2020-10-09 09:30] LABS: Troponin-I High Sensitivity 10.3 ng/L (<3.5-17.0)
[2020-10-09] MEDS: 0.9 % Sodium Chloride 500 ML IV (10:08)
[2020-10-09] MEDS: Acetaminophen 325 MG TABLET 650 MG PO ×2 (10:08→16:56)
[2020-10-09] MEDS: Doxycycline Hyclate 100 MG in 0.9 % Sodium Chloride 250 ML 166.67 MG IV ×2 (11:41→22:31)
[2020-10-09 11:43] VITALS: BP 108/50; PULSE 92; RESP 22; TEMP 37; O2SAT 98
[2020-10-09] MEDS: Gabapentin 400 MG CAPSULE PO ×2 (14:00→20:27)
[2020-10-09] MEDS: Ferrous Sulfate 324 MG TABLET.DR 325 MG PO ×2 (14:00→20:28)
[2020-10-09] MEDS: traMADoL HCL 50 MG TABLET PO ×2 (14:00→20:27)
--- NOTE | 2020-10-09 14:07 | P.EN_ITS ---
Event Note Date of Service: 10/09/20 Event Note: Attending Admission Note: Patient seen and examined independently. I was present during aragon portion of E/M service. Agree with Gaudencio Montes NP's history, physical, assessment, and plan. History obtained with the help of a american sign language interpreter. In brief, this is a 69 yo F with a PMH of recurrent history of ESBL UTI who presents to the hospital with multiple complaints including back and neck pain, generalized weakness and malaise, productive cough (yellow/green sputum). Patient was treated with oral Bactrim for her history of ESBL E. Coli (sensitive to bactrim) for what appears to be multiple courses. She was in the ED about 5 days ago at which point she was diagnosed with UTI and was discharged from the ED with another course of Bactrim. During this ED, she was noted to be febrile to 101.3 with leukocytosis of 12 (10% Bands). CT scan of the chest showed right sided infiltrates. Do to her history of ESBL, she was given a dose of Merrem along with Doxy for pneumonia coverage and admission was requested. Assessment & Plan: 69 yo F with recurrent ESBL resistant UTI. Now presenting with multitude of complaints. She meets sepsis criteria with leukocytosis/bandemia + fevers. Source not entirely clear -- vs Pulmonary. 1. Continue IV antibiotics and consult ID 2. F/U cultures 3. Remainder per H&P
[2020-10-09 16:46] VITALS: BP 105/54; PULSE 88; RESP 22; TEMP 37.4; O2SAT 96
[2020-10-09] MEDS: Metoclopramide HCl 10 MG TABLET PO (16:52)
--- NOTE | 2020-10-09 18:23 | P.HPHOSP_ITS ---
History of Present Illness Date of Service: 10/09/20 Chief Complaint: uti 69-year-old Monegasque-speaking woman presented with multiple complaints including back and neck pain. She presented with a productive cough with yellow-green sputum. She denied chest pain, shortness of breath, nausea, vomiting, diarrhea. She was recently treated with Bactrim for ESBL E coli urinary tract infection, appears to have had multiple courses of this, possible failure. She presented with fever, leukocytosis, tachycardia, tachypnea. Chest CT did show right-sided infiltrates multi lobar pneumonia likely aspiration. Blood pressure noted to be in the softer side. She was started on ertapenem, doxycycline given half a L of IV fluid. She will be admitted for further management and treatment of aspiration pneumonia and ESBL UTI with sepsis. Review of Systems Review of Systems: Denies any recent fever chills or decrease in appetite respiratory denies any shortness of breath coverage production cardiovascular is adjustment of any PND or edema gastrointestinal denies any dysphagia abdominal pain nausea vomiting or diarrhea genitourinary See HPI musculoskeletal Chronic back pain neuropsych denies any weakness or seizures all other systems reviewed are negative [facility] Medical History B12 deficiency Dysuria Hypothyroidism Iron deficiency anemia Osteoporosis Vitamin D deficiency Family History Father No problems noted. Mother Heart attack Diabetes mellitus CVD (cardiovascular disease) Arthritis of knee Stomach cancer Sister COVID-19 Surgical History History of arthroscopy of left shoulder History of esophagogastroduodenoscopy (EGD) Hx of colonoscopy Social History Household Members: None Alcohol intake: current Alcohol intake frequency: does not drink Smoking Status: Never smoker Advance Directives: No Advance Directives Information Provided: No Meds Allergies Allergy/AdvReac Type Severity Reaction Status Date / Time No Known Allergies Allergy Verified 10/05/20 08:34 [No Known Allergies*] Active Medications: Current Medications Generic Name Dose Route Start Last Admin Trade Name Freq PRN Reason Stop Dose Admin Acetaminophen 650 mg 10/09/20 12:10 10/09/20 16:56 Acetaminophen 325 Mg Tablet PO 650 mg Q6H PRN Administration Pain, Mild (Pain Scale 1-3) Lipase/Protease/Amylase 1 cap 10/09/20 17:00 Lipase/Prot/Amylase 24/76/120k 1 Cap Capsule. PO QIDWMHS [facility] Ascorbic Acid 500 mg 10/09/20 21:00 Ascorbic Acid 500 Mg Tablet PO BID [facility] Aspirin 81 mg 10/10/20 09:00 Aspirin Enteric Coated 81 Mg Tablet. PO DAILY [facility] Clonazepam 1 mg 10/09/20 12:10 Clonazepam 1 Mg Tablet PO TID PRN Anxiety Cyanocobalamin 1,000 mcg 10/10/20 09:00 Cyanocobalamin (Vitamin B-12) 1,000 Mcg Tablet PO DAILY [facility] Ferrous Sulfate 325 mg 10/09/20 15:00 10/09/20 14:00 Ferrous Sulfate 324 Mg Tablet. PO 325 mg TID AMINA Administration Fluticasone/Vilanterol 1 puff 10/10/20 08:00 Fluticasone/Vilanterol 200/25 Blst.W.Dev INHALE RDAILY [facility] Folic Acid 1 mg 10/10/20 09:00 Folic Acid 1 Mg Tablet PO DAILY [facility] Gabapentin 400 mg 10/09/20 15:00 10/09/20 14:00 Gabapentin 400 Mg Capsule PO 400 mg TID [facility] Administration Doxycycline Hyclate 100 mg/ 250 mls @ 166.67 mls/hr 10/09/20 22:00 Sodium Chloride IV Q12H [facility] Meropenem 1 gm/ Sodium 100 mls @ 100 mls/hr 10/09/20 16:00 10/09/20 16:49 Chloride IV 100 mls/hr Q8H [facility] Administration Levothyroxine Sodium 112 mcg 10/10/20 09:00 Levothyroxine Sodium 112 Mcg Tablet PO DAILY [facility] Metoclopramide HCl 10 mg 10/09/20 16:30 10/09/20 16:52 Metoclopramide Hcl 10 Mg Tablet PO 10 mg TIDAC [facility] Administration Montelukast Sodium 10 mg 10/09/20 21:00 Montelukast Sodium 10 Mg Tablet PO BEDTIME [facility] Multivitamins/Minerals 1 tab 10/10/20 09:00 Multivitamin With Minerals Tablet PO DAILY [facility] Non-Formulary Medication 0.75 mg 10/09/20 12:15 Dulaglutide SUBCUT Q7D [facility] Non-Formulary Medication 180 mg 10/09/20 13:00 Simethicone PO QID [facility] Omeprazole 40 mg 10/09/20 21:00 Omeprazole 40 Mg Capsule.Dr PO BID [facility] Oxycodone HCl 5 mg 10/09/20 12:10 Oxycodone Hcl Immed Release 5 Mg Tablet PO Q6H PRN Pain, Severe Pharmacy Consult 1 each 10/09/20 08:06 Consult Rx Perform Med Rec MISCELLANE ONCE PRN Consult order Senna 17.2 mg 10/09/20 12:10 Sennosides 8.6 Mg Tablet PO BEDTIME PRN constipation Sodium Chloride 3 ml 10/09/20 16:00 10/09/20 16:49 0.9 % Sodium Chloride Flush 3 Ml Syringe IVFLUSH Not Given QSHIFT [facility] Topiramate 50 mg 10/09/20 21:00 Topiramate 25 Mg Tablet PO BEDTIME [facility] Tramadol HCl 50 mg 10/09/20 13:00 10/09/20 14:00 Tramadol Hcl 50 Mg Tablet PO 50 mg Q6H [facility] Administration Venlafaxine HCl 75 mg 10/10/20 09:00 Venlafaxine Hcl Er 75 Mg Cap.Er.24h PO DAILY [facility] Venlafaxine HCl 150 mg 10/10/20 09:00 Venlafaxine Hcl Er 150 Mg Cap.Er.24h PO DAILY [facility] Vitamin D 50 mcg 10/10/20 09:00 Cholecalciferol (Vitamin D3) 25 Mcg Tablet PO DAILY [facility] Zolpidem Tartrate 10 mg 10/09/20 21:00 Zolpidem Tartrate 5 Mg Tablet PO BEDTIME [facility] Home Medications Medication Instructions Recorded Confirmed Last Taken Type ascorbic acid (vitamin C) [Vitamin 500 mg PO BID 07/17/20 10/09/20 Unknown History C] aspirin [Aspir-81] 81 mg PO DAILY 07/17/20 10/09/20 Unknown History ferrous sulfate [Iron (ferrous 325 mg PO TID 07/17/20 10/09/20 Unknown History sulfate)] topiramate 50 mg tablet 50 mg PO BEDTIME 07/23/20 10/09/20 Unknown History cyanocobalamin (vitamin B-12) 1,000 mcg SUBLINGUAL DAILY 08/10/20 10/09/20 Unknown History 1,000 mcg sublingual tablet fluticasone 500 mcg-salmeterol 50 1 inh INHALATION BID 08/10/20 10/09/20 Unknown History mcg/dose blistr powdr for inhalation montelukast 10 mg tablet 10 mg PO BEDTIME 08/10/20 10/09/20 Unknown History venlafaxine 150 mg 150 mg PO DAILY 08/10/20 10/09/20 Unknown History capsule,extended release 24 hr zolpidem 10 mg tablet 10 mg PO BEDTIME 08/10/20 10/09/20 Unknown History blood sugar diagnostic #10 ea 09/12/20 Unknown History calcium citrate 200 mg 2 tab PO BID 09/12/20 10/09/20 Unknown History calcium-vitamin D3 6.25 mcg (250 unit) tablet clonazepam 1 mg tablet 1 mg PO TID PRN 09/12/20 10/09/20 Unknown History dulaglutide 0.75 mg/0.5 mL 0.75 mg SUBCUT QWEEK 09/12/20 10/09/20 Unknown History subcutaneous pen injector folic acid 1 mg tablet 1 mg PO DAILY 09/12/20 10/09/20 Unknown History gabapentin 400 mg capsule 400 mg PO TID 09/12/20 10/09/20 Unknown History lancets 33 gauge #100 ea 09/12/20 Unknown History metformin 500 mg tablet,extended 500 mg PO BID 09/12/20 10/09/20 Unknown History release 24 hr multivitamin-ferrous 1 tab PO DAILY 09/12/20 10/09/20 Unknown History fumarate-folic acid 18 mg-400 mcg tablet sennosides 8.6 mg tablet 17.2 mg PO BEDTIME PRN 09/12/20 10/09/20 Unknown History tiotropium bromide 1.25 2 puff PO DAILY 09/12/20 10/09/20 Unknown History mcg/actuation mist for inhalation venlafaxine 75 mg capsule,extended 75 mg PO DAILY 09/12/20 10/09/20 Unknown History release 24 hr Creon 1 cap PO QIDWMHS 10/09/20 10/09/20 Unknown History metoclopramide HCl [Reglan] 10 mg PO TIDAC 10/09/20 10/09/20 Unknown History oxycodone 5 mg PO Q6H PRN 10/09/20 10/09/20 Unknown History Physical Exam Vital Signs and Narrative: Vital Signs: Last Vital Signs Temp 99.4 F 10/09/20 16:46 Pulse 88 10/09/20 16:46 Resp 22 H 10/09/20 16:46 BP 105/54 L 10/09/20 16:46 Pulse Ox 96 10/09/20 16:46 Body Mass Index 18.7 Appearing in no acute distress head is normocephalic atraumatic eyes pupils are PERRLA sclera is anicteric mouth throat mucous membranes are intact and moist neck is supple no lymphadenopathy, no JVD noted lung sounds are clear to auscultation heart regular rate rhythm, clear S1, S2 positive bowel sounds, abdomen is soft, nontender neuro patient is alert x3, no focal deficits Results Labs CBC and Chem 7: 10/09/20 08:46 10/09/20 08:46 Labs: Laboratory Results - last 24 hr 10/09/20 10/09/20 10/09/20 08:10 08:27 08:44 MCV MCH MCHC RDW Plt Count MPV Immature Gran % (Auto) Neut % (Auto) Lymph % (Auto) Callahan % (Auto) Eos % (Auto) Baso % (Auto) Lymph # (Auto) Callahan # (Auto) Eos # (Auto) Baso # (Auto) Abs Immat Gran (auto) Absolute Neuts (auto) Absolute Nucleated RBC Nucleated RBC % (auto) PT INR APTT Anion Gap Estim Creat Clear Calc Estimated GFR POC Glucose 71 Random Glucose Lactic Acid Calcium Magnesium Total Bilirubin Direct Bilirubin AST ALT Alkaline Phosphatase Total Creatine Kinase Troponin I High Sens Total Protein Albumin Lipase Urine Color STRAW Urine Appearance HAZY Urine pH 7.0 Ur Specific [place] 1.015 Urine Protein NEG Urine Glucose (UA) NEG Urine Ketones NEG Urine Blood TRACE Urine Nitrite NEG Ur Leukocyte Esterase NEG Urine RBC 1-4 Urine WBC 1-4 Ur Squamous Epith Cells TRACE Urine Bacteria 3+ COVID-19 (MARLY) Negative COVID-19 Clin Com See Note 10/09/20 10/09/20 10/09/20 08:46 08:46 08:46 MCV 87.1 MCH 27.6 MCHC 31.7 RDW 15.0 Plt Count 256 MPV 10.4 Immature Gran % (Auto) 0.7 H Neut % (Auto) 85.7 H Lymph % (Auto) 5.8 L [place] % (Auto) 7.5 Eos % (Auto) 0.1 Baso % (Auto) 0.2 Lymph # (Auto) 0.7 L [place] # (Auto) 0.9 Eos # (Auto) 0.0 Baso # (Auto) 0.0 Abs Immat Gran (auto) 0.08 H Absolute Neuts (auto) 10.4 H Absolute Nucleated RBC 0.000 Nucleated RBC % (auto) 0.0 PT 11.5 INR 1.0 APTT 29.8 Anion Gap 13 Estim Creat Clear Calc 43.0 Estimated GFR > 60 POC Glucose Random Glucose 83 D Lactic Acid Calcium 9.5 Magnesium 1.9 Total Bilirubin 0.7 Direct Bilirubin 0.3 AST 35 H D ALT 36 H Alkaline Phosphatase 65 D Total Creatine Kinase 105 Troponin I High Sens Total Protein 6.6 Albumin 4.1 Lipase 8 Urine Color Urine Appearance Urine pH Ur Specific [place] Urine Protein Urine Glucose (UA) Urine Ketones Urine Blood Urine Nitrite Ur Leukocyte Esterase Urine RBC Urine WBC Ur Squamous Epith Cells Urine Bacteria COVID-19 (MARLY) COVID-19 WISErg Com 10/09/20 10/09/20 08:46 08:46 MCV MCH MCHC RDW Plt Count MPV Immature Gran % (Auto) Neut % (Auto) Lymph % (Auto) Callahan % (Auto) Eos % (Auto) Baso % (Auto) Lymph # (Auto) [place]ahan # (Auto) Eos # (Auto) Baso # (Auto) Abs Immat Gran (auto) Absolute Neuts (auto) Absolute Nucleated RBC Nucleated RBC % (auto) PT INR APTT Anion Gap Estim Creat Clear Calc Estimated GFR POC Glucose Random Glucose Lactic Acid 1.1 Calcium Magnesium Total Bilirubin Direct Bilirubin AST ALT Alkaline Phosphatase Total Creatine Kinase Troponin I High Sens 10.3 Total Protein Albumin Lipase Urine Color Urine Appearance Urine pH Ur Specific [place] Urine Protein Urine Glucose (UA) Urine Ketones Urine Blood Urine Nitrite Ur Leukocyte Esterase Urine RBC Urine WBC Ur Squamous Epith Cells Urine Bacteria COVID-19 (MARLY) COVID-19 Clin Com Imaging Radiologist's Impressions: Impressions Abdomen/Pelvis CT 10/09/20 08:08 IMPRESSION: 1. Nodular airspace disease is present within the right upper and lower lobe. Findings are most suggestive of multilobar pneumonia. Clinical correlation recommended. Follow-up imaging suggested status post treatment to ensure resolution. 2. No CT evidence for acute abnormality within the abdomen or pelvis. This CT examination was performed using dose optimization techniques as appropriate, variously including the following: *Automated exposure control *Adjustment of mA and/or kV according to patient size (this includes techniques or standardized protocols for targeted exams where dose is matched to indication/reason for exam; i.e. extremities or head) *Use of iterative reconstruction technique Cervical Spine CT 10/09/20 08:08 IMPRESSION: HEAD CT: No acute findings. Mild generalized atrophy and nonspecific periventricular white matter disease. CERVICAL SPINE CT: No fracture or dislocation seen. Postsurgical changes at C3-C4 and degenerative changes. Airspace disease in the right upper lobe questionable for pneumonia. Chest CT 10/09/20 08:08 IMPRESSION: 1. Nodular airspace disease is present within the right upper and lower lobe. Findings are most suggestive of multilobar pneumonia. Clinical correlation recommended. Follow-up imaging suggested status post treatment to ensure resolution. 2. No CT evidence for acute abnormality within the abdomen or pelvis. This CT examination was performed using dose optimization techniques as appropriate, variously including the following: *Automated exposure control *Adjustment of mA and/or kV according to patient size (this includes techniques or standardized protocols for targeted exams where dose is matched to indication/reason for exam; i.e. extremities or head) *Use of iterative reconstruction technique Head CT 10/09/20 08:08 IMPRESSION: HEAD CT: No acute findings. Mild generalized atrophy and nonspecific periventricular white matter disease. CERVICAL SPINE CT: No fracture or dislocation seen. Postsurgical changes at C3-C4 and degenerative changes. Airspace disease in the right upper lobe questionable for pneumonia. Assessment and Plan (1) Cystitis: Status: Acute 69-year-old Monegasque-speaking woman admitted to the hospital with likely aspiration pneumonia and ESBL urinary tract infection failed outpatient treatment with Bactrim Sepsis. Fever, tachycardia, tachypnea, leukocytosis. Normal lactic acid. -follow blood and urine cultures ESBL UTI. Has had recurrent urinary tract infections. Has failed Bactrim in t he past most recently started a few days ago. -meropenem -id consult -follow urine cultures Aspiration pneumonia. Right-sided multilobar pneumonia noted on chest CT. Also septic. -will be treated with meropenem for urinary tract infections with should cover will also add doxycycline. -Follow blood cultures -no hypoxia noted but may use supplemental oxygen if needed Diabetes mellitus. - sliding scale -ADA diet GERD -ppi Chronic pain -continue oxycodone, gabapentin Depression/anxiety -continue home medications DVT prophylaxis with Lovenox Attending: Dr. Nuñez
[2020-10-09 19:22] LABS: Glucose, Whole Blood 74 mg/dL (60-115)
[2020-10-09] MEDS: Topiramate 25 MG TABLET 50 MG PO (20:28)
[2020-10-09] MEDS: Montelukast Sodium 10 MG TABLET PO (20:28)
[2020-10-09] MEDS: Enoxaparin Sodium 40 MG/0.4 ML SYRINGE SUBCUT (20:29)
[2020-10-09] MEDS: Ascorbic Acid 500 MG TABLET PO (20:29)
[2020-10-09] MEDS: Zolpidem Tartrate 5 MG TABLET 10 MG PO (20:29)
[2020-10-09] MEDS: Omeprazole 40 MG CAPSULE.DR PO (20:29)
[2020-10-09] MEDS: Lipase/Prot/Amylase 24/76/120K 1 CAP CAPSULE.DR PO (20:30)
[2020-10-09 20:37] VITALS: BP 100/53; PULSE 87; RESP 16; O2SAT 97
--- NOTE | 2020-10-09 20:37 | PC.NURSE ---
PATIENT AMBULATED TO THE BATHROOM WITH A STEADY GAIT, CLEANED SELF UP. MEDICATED PER ORDERS.
--- NOTE | 2020-10-09 20:39 | PC.NURSE ---
attempted to call report- private secretary is paging the RN and will call back
[2020-10-09 20:41] LABS: Glucose, Whole Blood 66 mg/dL (60-115)
[2020-10-09] MEDS: clonazePAM 1 MG TABLET PO (22:08)
[2020-10-10] MEDS: traMADoL HCL 50 MG TABLET PO ×4 (00:44→20:27)
[2020-10-10 03:39] VITALS: BP 113/67; PULSE 83; RESP 18; TEMP 37; O2SAT 98
[2020-10-10 06:11] LABS: MANUAL DIFF FLAG NO
[2020-10-10 06:17] LABS: Basophils Percent Auto 0.2 % (0-2); Eosinophils Absolute Auto 0.3 X10*3/uL (0.0-0.4); Hematocrit 30.4 % (37-47); Hemoglobin 9.5 g/dl (12.0-16.0); Imm Gran Abs Auto 0.07 X10*3/uL (0.00-0.03); Imm Gran Pct Auto 0.5 % (0.0-0.4); Lymphocytes Absolute Auto 1.5 X10*3/uL (1.2-4.9); Lymphocytes Percent Auto 11.4 % (20-40); Mean Corpuscular HGB Conc 31.3 g/dl (31.0-35.0); Mean Corpuscular Hemoglobin 27.6 pg (27.0-33.0); Mean Corpuscular Volume 88.4 fL (80-98); Mean Platelet Volume 10.9 fL (9.4-12.3); Monocytes Percent Auto 7.8 % (2-11); Neutrophils Absolute Auto 9.9 X10*3/uL (2.0-8.3); Neutrophils Percent Auto 78.1 % (45-73); Platelet Count 234 X10*3/uL (160-400); Red Blood Count 3.44 X10*6/uL (4.20-5.50); Red Cell Distribution Width 15.1 % (11.0-16.0); White Blood Count 12.8 X10*3/uL (4.8-10.8)
[2020-10-10 06:50] LABS: Anion Gap 10 (12-20); Blood Urea Nitrogen 15 mg/dL (9-16); Calcium 8.4 mg/dL (8.4-10.2); Carbon Dioxide 24 mmol/L (22-29); Chloride 111 mmol/L (96-108); Creatinine Clr Calc Pharmacy 47.4; Estimated Glomerular Filt Rate > 60; Glucose Random 67 mg/dL (60-115); Potassium 4.2 mmol/L (3.3-5.1); Sodium 141 mmol/L (135-145)
[2020-10-10 07:13] VITALS: BP 114/56; PULSE 80; RESP 18; TEMP 36.8; O2SAT 99
[2020-10-10 07:13] LABS: Glucose, Whole Blood 74 mg/dL (60-115)
[2020-10-10] MEDS: Fluticasone/Vilanterol 200/25 BLST.W.DEV 1 PUFF INHALE (07:14)
--- NOTE | 2020-10-10 08:34 | P.CDIC_ITS ---
CDI Concurrent Query Service Date: 10/10/20 Documentation Clarification: Please clarify if you are treating a proba ble/suspected/likely or confirmed: Toxic encephalopathy (POA, resolved) Metabolic encephalopathy Septic encephalopathy Please specify if known or other Not encephalopathic Provider Response: Other Other Diagnosis: Not encephalopathic PLEASE DO NOT DELETE/MODIFY EXISTING CONTENT Additional information is needed in order to code to the highest accuracy and appropriate Severity of Illness (SOI). Please clarify the information noted below in your progress notes and discharge summary. Risk Factors/Clinical Indicators/Treatments ED: Suspected encephalopathy is from her UTI, fever altered mental status/Sepsis Temp 101.3 IV antibiotics CDS: Shira Perez CCS, CDIS Contact Number: Please Review the information above and exercise your independent professional judgment in responding to the query. If you concur, pleas document in the PROGRESS NOTES and DISCHARGE SUMMARY. If you do not agree with the query, please document in the query above. THIS QUERY IS PART OF THE PERMANENT MEDICAL RECORD
[2020-10-10] MEDS: Ascorbic Acid 500 MG TABLET PO ×2 (09:26→20:28)
[2020-10-10] MEDS: Venlafaxine HCl ER 150 MG CAP.ER.24H PO (09:26)
[2020-10-10] MEDS: Lipase/Prot/Amylase 24/76/120K 1 CAP CAPSULE.DR PO ×3 (09:26→20:28)
[2020-10-10] MEDS: Cyanocobalamin (Vitamin B-12) 1,000 MCG TABLET 1000 MCG PO (09:27)
[2020-10-10] MEDS: Cholecalciferol (Vitamin D3) 25 MCG TABLET 50 MCG PO (09:27)
[2020-10-10] MEDS: Venlafaxine HCl ER 75 MG CAP.ER.24H PO (09:27)
[2020-10-10] MEDS: Gabapentin 400 MG CAPSULE PO ×3 (09:27→20:26)
[2020-10-10] MEDS: Levothyroxine Sodium 112 MCG TABLET PO (09:27)
[2020-10-10] MEDS: Aspirin Enteric Coated 81 MG TABLET.DR PO (09:27)
[2020-10-10] MEDS: Folic Acid 1 MG TABLET PO (09:27)
[2020-10-10] MEDS: Omeprazole 40 MG CAPSULE.DR PO ×2 (09:27→20:26)
[2020-10-10] MEDS: 0.9 % Sodium Chloride Flush 3 ML SYRINGE IVFLUSH ×3 (09:28→20:29)
[2020-10-10] MEDS: Ferrous Sulfate 324 MG TABLET.DR PO ×3 (09:29→20:28)
--- NOTE | 2020-10-10 09:47 | MHC.CM.PN ---
with interpertaor met with pt who reports thta she has [facility] [employer] [facility] ,pt reports hs ehas a ride home whendcd
[2020-10-10] MEDS: Doxycycline Hyclate 100 MG in 0.9 % Sodium Chloride 250 ML 166.67 MG IV ×2 (10:10→22:26)
[2020-10-10 11:02] VITALS: BP 120/53; PULSE 89; RESP 18; TEMP 36.7; O2SAT 99
[2020-10-10 11:07] LABS: Glucose, Whole Blood 181 mg/dL (60-115)
[2020-10-10] MEDS: Metoclopramide HCl 10 MG TABLET PO ×2 (11:28→16:19)
[2020-10-10] MEDS: Insulin Lispro 100 UNIT/ML 3 ML VIAL SUBCUT (11:28)
[2020-10-10] MEDS: Simethicone 80 MG TAB.CHEW 160 MG PO ×3 (14:35→20:29)
[2020-10-10 15:04] VITALS: BP 112/57; PULSE 80; RESP 18; TEMP 36.7; O2SAT 97
--- NOTE | 2020-10-10 15:33 | P.PNIM_ITS ---
Subjective Subjective Date of Service: 10/10/20 <Ladi Montes NP - Last Filed: 10/10/20 15:44> 10/16/20 <Scout Nuñez MD - Last Filed: 10/16/20 08:04> Interval History: Follow up aspiration pna and uti. No pain or sob, mild cough <Ladi Montes NP - Last Filed: 10/10/20 15:44> Physical Exam Vital Signs: Vital Signs: Last Vital Signs Temp 98.1 F 10/10/20 15:04 Pulse 80 10/10/20 15:04 Resp 18 10/10/20 15:04 BP 112/57 L 10/10/20 15:04 Pulse Ox 97 10/10/20 15:04 Body Mass Index 18.7 <Ladi Montes NP - Last Filed: 10/10/20 15:44> Appearing in no acute distress lung sounds are clear to auscultation heart regular rate rhythm, clear S1, S2 positive bowel sounds, abdomen is soft, nontender neuro patient is alert x3, no focal deficits <Ladi Montes NP - Last Filed: 10/10/20 15:44> Objective Data Current Medications Generic Name Dose Route Start Last Admin Trade Name Freq PRN Reason Stop Dose Admin Acetaminophen 650 mg 10/09/20 12:10 10/09/20 16:56 Acetaminophen 325 Mg Tablet PO 650 mg Q6H PRN Administration Pain, Mild (Pain Scale 1-3) Lipase/Protease/Amylase 1 cap 10/09/20 17:00 10/10/20 12:07 Lipase/Prot/Amylase 24/76/120k 1 Cap Capsule. PO Not Given QIDWMHS [facility] Ascorbic Acid 500 mg 10/09/20 21:00 10/10/20 09:26 Ascorbic Acid 500 Mg Tablet PO 500 mg BID [facility] Administration Aspirin 81 mg 10/10/20 09:00 10/10/20 09:27 Aspirin Enteric Coated 81 Mg Tablet. PO 81 mg DAILY [facility] Administration Clonazepam 1 mg 10/09/20 12:10 10/09/20 22:08 Clonazepam 1 Mg Tablet PO 1 mg TID PRN Administration Anxiety Cyanocobalamin 1,000 mcg 10/10/20 09:00 10/10/20 09:27 Cyanocobalamin (Vitamin B-12) 1,000 Mcg Tablet PO 1,000 mcg DAILY [facility] Administration Enoxaparin Sodium 40 mg 10/09/20 18:45 10/09/20 20:29 Enoxaparin Sodium 40 Mg/0.4 Ml Syringe SUBCUT 40 mg Q24H [facility] Administration Ferrous Sulfate 324 mg 10/10/20 15:00 10/10/20 14:35 Ferrous Sulfate 324 Mg Tablet.Dr PO 324 mg TID [facility] Administration Fluticasone/Vilanterol 1 puff 10/10/20 08:00 10/10/20 07:14 Fluticasone/Vilanterol 200/25 Blst.W.Dev INHALE 1 puff RDAILY [facility] Administration Folic Acid 1 mg 10/10/20 09:00 10/10/20 09:27 Folic Acid 1 Mg Tablet PO 1 mg DAILY [facility] Administration Gabapentin 400 mg 10/09/20 15:00 10/10/20 14:35 Gabapentin 400 Mg Capsule PO 400 mg TID [facility] Administration Doxycycline Hyclate 100 mg/ 250 mls @ 166.67 mls/hr 10/09/20 22:00 10/10/20 12:08 Sodium Chloride IV Infused Q12H [facility] Infusion Meropenem 1 gm/ Sodium 100 mls @ 100 mls/hr 10/09/20 16:00 10/10/20 10:36 Chloride IV Infused Q8H [facility] Infusion Insulin Human Lispro 0 unit 10/09/20 21:00 10/10/20 11:28 Insulin Lispro 100 Unit/Ml 3 Ml Vial SUBCUT 2 unit QIDACHS [facility] Administration Protocol Levothyroxine Sodium 112 mcg 10/10/20 09:00 10/10/20 09:27 Levothyroxine Sodium 112 Mcg Tablet PO 112 mcg DAILY [facility] Administration Metoclopramide HCl 10 mg 10/09/20 16:30 10/10/20 11:28 Metoclopramide Hcl 10 Mg Tablet PO 10 mg TIDAC [facility] Administration Montelukast Sodium 10 mg 10/09/20 21:00 10/09/20 20:28 Montelukast Sodium 10 Mg Tablet PO 10 mg BEDTIME [facility] Administration Multivitamins/Minerals 1 tab 10/10/20 09:00 10/10/20 09:27 Multivitamin With Minerals Tablet PO 1 tab DAILY [facility] Administration Non-Formulary Medication 0.75 mg 10/09/20 12:15 Dulaglutide SUBCUT Q7D [facility] Omeprazole 40 mg 10/09/20 21:00 10/10/20 09:27 Omeprazole 40 Mg Capsule.Dr PO 40 mg BID [facility] Administration Oxycodone HCl 5 mg 10/09/20 12:10 Oxycodone Hcl Immed Release 5 Mg Tablet PO Q6H PRN Pain, Severe Pharmacy Consult 1 each 10/09/20 08:06 Consult Rx Perform Med Rec MISCELLANE ONCE PRN Consult order Senna 17.2 mg 10/09/20 12:10 Sennosides 8.6 Mg Tablet PO BEDTIME PRN constipation Simethicone 160 mg 10/10/20 13:00 10/10/20 14:35 Simethicone 80 Mg Tab.Chew PO 160 mg QID [facility] Administration Sodium Chloride 3 ml 10/09/20 16:00 10/10/20 09:28 0.9 % Sodium Chloride Flush 3 Ml Syringe IVFLUSH 3 ml QSHIFT [facility] Administration Topiramate 50 mg 10/09/20 21:00 10/09/20 20:28 Topiramate 25 Mg Tablet PO 50 mg BEDTIME [facility] Administration Tramadol HCl 50 mg 10/09/20 13:00 10/10/20 14:34 Tramadol Hcl 50 Mg Tablet PO 50 mg Q6H [facility] Administration Venlafaxine HCl 75 mg 10/10/20 09:00 10/10/20 09:27 Venlafaxine Hcl Er 75 Mg Cap.Er.24h PO 75 mg DAILY [facility] Administration Venlafaxine HCl 150 mg 10/10/20 09:00 10/10/20 09:26 Venlafaxine Hcl Er 150 Mg Cap.Er.24h PO 150 mg DAILY [facility] Administration Vitamin D 50 mcg 10/10/20 09:00 10/10/20 09:27 Cholecalciferol (Vitamin D3) 25 Mcg Tablet PO 50 mcg DAILY [facility] Administration Zolpidem Tartrate 10 mg 10/09/20 21:00 10/09/20 20:29 Zolpidem Tartrate 5 Mg Tablet PO 10 mg BEDTIME [facility] Administration <Ladi Montes NP - Last Filed: 10/10/20 15:44> Labs CBC & Chem 7: : 10/11/20 05:39 10/12/20 07:00 <Ladi Montes NP - Last Filed: 10/10/20 15:44> Microbiology Microbiology Results: Microbiology 10/09/20 08:51 Blood - Venous Blood Culture - Preliminary No growth after 24 hours. 10/09/20 08:46 Blood - Venous Blood Culture - Preliminary No growth after 24 hours. <Ladi Montes NP - Last Filed: 10/10/20 15:44> Assessment and Plan (1) Cystitis: Assessment and Plan: 69-year-old Kittitian-speaking woman admitted to the hospital with likely aspiration pneumonia and ESBL urinary tract infection failed outpatient treatment with Bactrim Sepsis. Resolved. -follow blood cx -urine cx from 10/04 showed ESBL ecoli ESBL UTI. Has had recurrent urinary tract infections. Has failed Bactrim in the past most recently started a few days ago. -meropenem -id consult -follow urine cultures Aspiration pneumonia. Right-sided multilobar pneumonia noted on chest CT. Also septic. -will be treated with meropenem for urinary tract infections with should cover will also add doxycycline. -Follow blood cultures -no hypoxia noted but may use supplemental oxygen if needed -cough -[employer] eval Diabetes mellitus. - sliding scale -ADA diet GERD -ppi Chronic pain -continue oxycodone, gabapentin Depression/anxiety -continue home medications DVT prophylaxis with Lovenox Attending: Dr. Nuñez <Ladi Montes NP - Last Filed: 10/10/20 15:44>
[2020-10-10 16:00] LABS: Glucose, Whole Blood 86 mg/dL (60-115)
[2020-10-10] MEDS: Enoxaparin Sodium 40 MG/0.4 ML SYRINGE SUBCUT (17:41)
[2020-10-10 19:01] VITALS: BP 135/64; PULSE 85; RESP 18; TEMP 36.9; O2SAT 96
[2020-10-10 20:13] LABS: Glucose, Whole Blood 90 mg/dL (60-115)
[2020-10-10] MEDS: Montelukast Sodium 10 MG TABLET PO (20:26)
[2020-10-10] MEDS: Zolpidem Tartrate 5 MG TABLET 10 MG PO (20:26)
[2020-10-10] MEDS: Topiramate 25 MG TABLET 50 MG PO (20:28)
--- NOTE | 2020-10-10 22:13 | P.CNID_ITS ---
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 She has abdominal discomfort and dysuria for two days and no hematuria Review of Systems Review of Systems: Yes all other systems are reviewed and are negative PMFSH Past Medical History Medical History B12 deficiency Dysuria Hypothyroidism Iron deficiency anemia Osteoporosis Vitamin D deficiency Family History Family History Father No problems noted. Mother Heart attack Diabetes mellitus CVD (cardiovascular disease) Arthritis of knee Stomach cancer Sister COVID-19 Surgical History Surgical History History of arthroscopy of left shoulder History of esophagogastroduodenoscopy (EGD) Hx of colonoscopy Social History Social History Household Members: Spouse Housing: House Unable to assess alcohol history related to: Unknown Alcohol intake: current Alcohol intake frequency: does not drink Smoking Status: Never smoker Use of substances other than those prescribed or required for medical reasons: Unknown Currently Displaying Signs/Symptoms of Drug Intoxication Withdrawal: No Advance Directives: No Advance Directives Information Provided: No Do you have thoughts of harming others: None Do you have a plan to hurt others: No Plan Recently lost weight without trying: Unsure service: No Meds Allergies Allergy/AdvReac Type Severity Reaction Status Date / Time No Known Allergies Allergy Verified 10/05/20 08:34 [No Known Allergies*] Active Medications: Current Medications Generic Name Dose Route Start Last Admin Trade Name Freq PRN Reason Stop Dose Admin Acetaminophen 650 mg 10/09/20 12:10 10/09/20 16:56 Acetaminophen 325 Mg Tablet PO 650 mg Q6H PRN Administration Pain, Mild (Pain Scale 1-3) Lipase/Protease/Amylase 1 cap 10/09/20 17:00 10/10/20 20:28 Lipase/Prot/Amylase 24/76/120k 1 Cap Capsule.Dr PO 1 cap QIDWMHS [facility]INA Administration Ascorbic Acid 500 mg 10/09/20 21:00 10/10/20 20:28 Ascorbic Acid 500 Mg Tablet PO 500 mg BID [facility] Administration Aspirin 81 mg 10/10/20 09:00 10/10/20 09:27 Aspirin Enteric Coated 81 Mg Tablet. PO 81 mg DAILY [facility] Administration Clonazepam 1 mg 10/09/20 12:10 10/09/20 22:08 Clonazepam 1 Mg Tablet PO 1 mg TID PRN Administration Anxiety Cyanocobalamin 1,000 mcg 10/10/20 09:00 10/10/20 09:27 Cyanocobalamin (Vitamin B-12) 1,000 Mcg Tablet PO 1,000 mcg DAILY [facility] Administration Enoxaparin Sodium 40 mg 10/09/20 18:45 10/10/20 17:41 Enoxaparin Sodium 40 Mg/0.4 Ml Syringe SUBCUT 40 mg Q24H [facility] Administration Ferrous Sulfate 324 mg 10/10/20 15:00 10/10/20 20:28 Ferrous Sulfate 324 Mg Tablet. PO 324 mg TID [facility] Administration Fluticasone/Vilanterol 1 puff 10/10/20 08:00 10/10/20 07:14 Fluticasone/Vilanterol 200/25 Blst.W.Dev INHALE 1 puff RDAILY [facility] Administration Folic Acid 1 mg 10/10/20 09:00 10/10/20 09:27 Folic Acid 1 Mg Tablet PO 1 mg DAILY AMINA Administration Gabapentin 400 mg 10/09/20 15:00 10/10/20 20:26 Gabapentin 400 Mg Capsule PO 400 mg TID [facility] Administration Doxycycline Hyclate 100 mg/ 250 mls @ 166.67 mls/hr 10/09/20 22:00 10/10/20 12:08 Sodium Chloride IV Infused Q12H [facility] Infusion Meropenem 1 gm/ Sodium 100 mls @ 100 mls/hr 10/09/20 16:00 10/10/20 17:23 Chloride IV Infused Q8H [facility] Infusion Insulin Human Lispro 0 unit 10/09/20 21:00 10/10/20 20:29 Insulin Lispro 100 Unit/Ml 3 Ml Vial SUBCUT Not Given QIDACHS [facility] Protocol Levothyroxine Sodium 112 mcg 10/10/20 09:00 10/10/20 09:27 Levothyroxine Sodium 112 Mcg Tablet PO 112 mcg DAILY [facility] Administration Metoclopramide HCl 10 mg 10/09/20 16:30 10/10/20 16:19 Metoclopramide Hcl 10 Mg Tablet PO 10 mg TIDAC [facility] Administration Montelukast Sodium 10 mg 10/09/20 21:00 10/10/20 20:26 Montelukast Sodium 10 Mg Tablet PO 10 mg BEDTIME [facility] Administration Multivitamins/Minerals 1 tab 10/10/20 09:00 10/10/20 09:27 Multivitamin With Minerals Tablet PO 1 tab DAILY [facility] Administration Non-Formulary Medication 0.75 mg 10/09/20 12:15 Dulaglutide SUBCUT Q7D [facility] Omeprazole 40 mg 10/09/20 21:00 10/10/20 20:26 Omeprazole 40 Mg Capsule.Dr PO 40 mg BID [facility] Administration Oxycodone HCl 5 mg 10/09/20 12:10 Oxycodone Hcl Immed Release 5 Mg Tablet PO Q6H PRN Pain, Severe Pharmacy Consult 1 each 10/09/20 08:06 Consult Rx Perform Med Rec MISCELLANE ONCE PRN Consult order Senna 17.2 mg 10/09/20 12:10 Sennosides 8.6 Mg Tablet PO BEDTIME PRN constipation Simethicone 160 mg 10/10/20 13:00 10/10/20 20:29 Simethicone 80 Mg Tab.Chew PO 160 mg QID [facility] Administration Sodium Chloride 3 ml 10/09/20 16:00 10/10/20 20:29 0.9 % Sodium Chloride Flush 3 Ml Syringe IVFLUSH 3 ml QSHIFT [facility] Administration Topiramate 50 mg 10/09/20 21:00 10/10/20 20:28 Topiramate 25 Mg Tablet PO 50 mg BEDTIME [facility] Administration Tramadol HCl 50 mg 10/09/20 13:00 10/10/20 20:27 Tramadol Hcl 50 Mg Tablet PO 50 mg Q6H [facility] Administration Venlafaxine HCl 75 mg 10/10/20 09:00 10/10/20 09:27 Venlafaxine Hcl Er 75 Mg Cap.Er.24h PO 75 mg DAILY [facility] Administration Venlafaxine HCl 150 mg 10/10/20 09:00 10/10/20 09:26 Venlafaxine Hcl Er 150 Mg Cap.Er.24h PO 150 mg DAILY [facility] Administration Vitamin D 50 mcg 10/10/20 09:00 10/10/20 09:27 Cholecalciferol (Vitamin D3) 25 Mcg Tablet PO 50 mcg DAILY [facility] Administration Zolpidem Tartrate 10 mg 10/09/20 21:00 10/10/20 20:26 Zolpidem Tartrate 5 Mg Tablet PO 10 mg BEDTIME [facility] Administration Home Medications Medication Instructions Recorded Confirmed Last Taken Type ascorbic acid (vitamin C) [Vitamin 500 mg PO BID 07/17/20 10/09/20 Unknown History C] aspirin [Aspir-81] 81 mg PO DAILY 07/17/20 10/09/20 Unknown History ferrous sulfate [Iron (ferrous 325 mg PO TID 07/17/20 10/09/20 Unknown History sulfate)] topiramate 50 mg tablet 50 mg PO BEDTIME 07/23/20 10/09/20 Unknown History cyanocobalamin (vitamin B-12) 1,000 mcg SUBLINGUAL DAILY 08/10/20 10/09/20 Unknown History 1,000 mcg sublingual tablet fluticasone 500 mcg-salmeterol 50 1 inh INHALATION BID 08/10/20 10/09/20 Unknown History mcg/dose blistr powdr for inhalation montelukast 10 mg tablet 10 mg PO BEDTIME 08/10/20 10/09/20 Unknown History venlafaxine 150 mg 150 mg PO DAILY 08/10/20 10/09/20 Unknown History capsule,extended release 24 hr zolpidem 10 mg tablet 10 mg PO BEDTIME 08/10/20 10/09/20 Unknown History blood sugar diagnostic #10 ea 09/12/20 Unknown History calcium citrate 200 mg 2 tab PO BID 09/12/20 10/09/20 Unknown History calcium-vitamin D3 6.25 mcg (250 unit) tablet clonazepam 1 mg tablet 1 mg PO TID PRN 09/12/20 10/09/20 Unknown History dulaglutide 0.75 mg/0.5 mL 0.75 mg SUBCUT QWEEK 09/12/20 10/09/20 Unknown History subcutaneous pen injector folic acid 1 mg tablet 1 mg PO DAILY 09/12/20 10/09/20 Unknown History gabapentin 400 mg capsule 400 mg PO TID 09/12/20 10/09/20 Unknown History lancets 33 gauge #100 ea 09/12/20 Unknown History metformin 500 mg tablet,extended 500 mg PO BID 09/12/20 10/09/20 Unknown History release 24 hr multivitamin-ferrous 1 tab PO DAILY 09/12/20 10/09/20 Unknown History fumarate-folic acid 18 mg-400 mcg tablet sennosides 8.6 mg tablet 17.2 mg PO BEDTIME PRN 09/12/20 10/09/20 Unknown History tiotropium bromide 1.25 2 puff PO DAILY 09/12/20 10/09/20 Unknown History mcg/actuation mist for inhalation venlafaxine 75 mg capsule,extended 75 mg PO DAILY 09/12/20 10/09/20 Unknown History release 24 hr Creon 1 cap PO QIDWMHS 10/09/20 10/09/20 Unknown History metoclopramide HCl [Reglan] 10 mg PO TIDAC 10/09/20 10/09/20 Unknown History oxycodone 5 mg PO Q6H PRN 10/09/20 10/09/20 Unknown History Physical Exam Vital Signs: Vital Signs: Last Vital Signs Temp 98.5 F 10/10/20 19:01 Pulse 85 10/10/20 19:01 Resp 18 10/10/20 19:01 BP 135/64 10/10/20 19:01 Pulse Ox 96 10/10/20 19:01 Body Mass Index 18.7 Const: General: cooperative HENMT: Head: Yes normal to inspection Mouth: Normal oral and palatal mucosa present Eyes: General: appearance normal, both eyes and all related structures Resp: Effort & Inspection: normal respiratory effort Cardio: Rate: regular rate Rhythm: regular rhythm GI: Palpation (GI): Soft to palpation and nontender Skin: General skin exam: no rashes or lesions noted Extrem: General: Yes normal to inspection Results Labs CBC & Chem 7: 10/10/20 05:31 10/10/20 05:31 Labs: Short CBC 10/10/20 Range/Units 05:31 WBC 12.8 H (4.8-10.8) X10*3/uL Hgb 9.5 L (12.0-16.0) g/dl Hct 30.4 L (37-47) % Plt Count 234 (160-400) X10*3/uL BMP 10/10/20 05:31 Sodium 141 Potassium 4.2 Chloride 111 H Carbon Dioxide 24 BUN 15 Creatinine 0.78 Calcium 8.4 D Microbiology Microbiology Results: Microbiology 10/09/20 08:51 Blood - Venous Blood Culture - Preliminary No growth after 24 hours. 10/09/20 08:46 Blood - Venous Blood Culture - Preliminary No growth after 24 hours. Assessment and Plan (1) Leukocytosis: Qualifiers: Leukocytosis type: unspecified Qualified Code(s): D72.829 - Elevated white blood cell count, unspecified Status: Acute (2) Toxic encephalopathy: Problem details: Unfortunately,urine likely cause of encephalopathy E coli ESBL concern She has possible sensitivity to merepenem Status: Acute Continue Merem Await blood and urine cultures May need IV antibiotics 14 days Ertapenem as outpatient if sensitive but recurrence may occur Need to improve urinary flow,see Urology while in house
[2020-10-10 23:14] VITALS: BP 113/55; PULSE 102; RESP 18; TEMP 37.3; O2SAT 98
[2020-10-11] VITALS (7 sets, daily range): BP systolic 108–149; BP diastolic 55–75; PULSE 78–98; RESP 18–20; TEMP 36.1–36.8; O2SAT 94–98
[2020-10-11] MEDS: traMADoL HCL 50 MG TABLET PO ×3 (01:32→20:53)
[2020-10-11 06:57] LABS: Basophils Percent Auto 0.2 % (0-2); Eosinophils Absolute Auto 0.2 X10*3/uL (0.0-0.4); Eosinophils Percent Auto 2.2 % (0-4); Hematocrit 29.1 % (37-47); Hemoglobin 9.2 g/dl (12.0-16.0); Imm Gran Abs Auto 0.04 X10*3/uL (0.00-0.03); Imm Gran Pct Auto 0.4 % (0.0-0.4); Lymphocytes Absolute Auto 1.6 X10*3/uL (1.2-4.9); Lymphocytes Percent Auto 16.9 % (20-40); MANUAL DIFF FLAG NO; Mean Corpuscular HGB Conc 31.6 g/dl (31.0-35.0); Mean Corpuscular Hemoglobin 27.7 pg (27.0-33.0); Mean Corpuscular Volume 87.7 fL (80-98); Mean Platelet Volume 11.1 fL (9.4-12.3); Monocytes Absolute Auto 1.1 X10*3/uL (0.1-1.2); Monocytes Percent Auto 11.5 % (2-11); Neutrophils Absolute Auto 6.7 X10*3/uL (2.0-8.3); Neutrophils Percent Auto 68.8 % (45-73); Platelet Count 232 X10*3/uL (160-400); Red Blood Count 3.32 X10*6/uL (4.20-5.50); Red Cell Distribution Width 15.4 % (11.0-16.0); White Blood Count 9.7 X10*3/uL (4.8-10.8)
[2020-10-11 07:29] LABS: Glucose, Whole Blood 61 mg/dL (60-115)
[2020-10-11 07:37] LABS: Anion Gap 10 (12-20); Blood Urea Nitrogen 12 mg/dL (9-16); Calcium 8.3 mg/dL (8.4-10.2); Carbon Dioxide 26 mmol/L (22-29); Chloride 110 mmol/L (96-108); Creatinine Clr Calc Pharmacy 49.3; Estimated Glomerular Filt Rate > 60; Glucose Random 55 mg/dL (60-115); Potassium 4.5 mmol/L (3.3-5.1); Sodium 141 mmol/L (135-145)
[2020-10-11] MEDS: Fluticasone/Vilanterol 200/25 BLST.W.DEV 1 PUFF INHALE (07:59)
[2020-10-11] MEDS: Simethicone 80 MG TAB.CHEW 160 MG PO ×4 (09:17→20:53)
[2020-10-11] MEDS: 0.9 % Sodium Chloride Flush 3 ML SYRINGE IVFLUSH ×3 (09:17→20:54)
[2020-10-11] MEDS: Lipase/Prot/Amylase 24/76/120K 1 CAP CAPSULE.DR PO ×4 (09:18→20:51)
[2020-10-11] MEDS: Aspirin Enteric Coated 81 MG TABLET.DR PO (09:18)
[2020-10-11] MEDS: Ascorbic Acid 500 MG TABLET PO ×2 (09:18→20:53)
[2020-10-11] MEDS: Metoclopramide HCl 10 MG TABLET PO ×3 (09:18→16:51)
[2020-10-11] MEDS: Gabapentin 400 MG CAPSULE PO ×3 (09:18→20:53)
[2020-10-11] MEDS: Venlafaxine HCl ER 75 MG CAP.ER.24H PO (09:18)
[2020-10-11] MEDS: Venlafaxine HCl ER 150 MG CAP.ER.24H PO (09:18)
[2020-10-11] MEDS: Ferrous Sulfate 324 MG TABLET.DR PO ×3 (09:18→20:53)
[2020-10-11] MEDS: Levothyroxine Sodium 112 MCG TABLET PO (09:18)
[2020-10-11] MEDS: Cyanocobalamin (Vitamin B-12) 1,000 MCG TABLET 1000 MCG PO (09:18)
[2020-10-11] MEDS: Folic Acid 1 MG TABLET PO (09:19)
[2020-10-11] MEDS: Cholecalciferol (Vitamin D3) 25 MCG TABLET 50 MCG PO (09:19)
[2020-10-11] MEDS: Omeprazole 40 MG CAPSULE.DR PO ×2 (09:19→20:53)
[2020-10-11] MEDS: Doxycycline Hyclate 100 MG in 0.9 % Sodium Chloride 250 ML 166.67 MG IV ×2 (10:30→21:04)
[2020-10-11 10:31] LABS: Glucose, Whole Blood 140 mg/dL (60-115)
--- NOTE | 2020-10-11 10:51 | MHC.SL.SWA ---
Speech Pathologist Impression: Risk of Aspiration Oralpharyngeal Dysphagia Dysphasia Diet Status: Downgrade Liquid Consistency and Strategies for Safe Swallow: Liquid Intake Recommendation: Thin Liquid Intake Strategies: Double Swallow Solid Food Consistency: Dietary Recommendations: Chopped/Advanced (NDD3) Oral Medication Intake: Whole with Puree Compensatory Strategies and Precautions to be Taken for Safe Swallow: Sitting Upright (90 deg) Double Swallow Small Bites and Sips Alternate Liquids/Solids Rate of Ingestion Change Supervision While Eating and Drinking for Safe Swallow: Total Supervision (1:1) Swallowing Recommended Treatments: Compens. Strategy Educat. Recommendation for Speech: Inpatient Speech Therapy Modified Barium Swallow Study - Inpatient Modified Barium Swallow Study - Outpatient Comment: ADMIN ASSISTANT will continue to follow to monitor tolerance. No overt s/s of aspiration at bedside. However, chest CT right upper and lower lobe airspace disease is concerning for aspiration pneumonia. Patient complains of globus sensation with solids and liquids. Patient may benefit from MBSS on inpatient or outpatient basis to rule in/out silent aspiration. Chair Frame Builder Clinican/Clinical Fellow: No Supervisory Statement: I have reviewed and agree with the student/clinical fellow's documentation: N/A Speech Language Pathologist: Senait Nguyen M.A., CCC-ADMIN ASSISTANT
--- NOTE | 2020-10-11 11:03 | MHC.CM.PN ---
CM attempted to call Patient's Son/Gilberto @ [phone] to discuss dc planning and to determine what Patient's support system is but CM was unable to leave a message, mailbox is full. Per RN, Patient has a Sitter r/t Confusion and risk for elopement and would not likely be able to manage home IV ABT. CM will continue to attempt to reach Gilberto to determine if home with VNA & LT IVABT VS STR is the best dc plan.
--- NOTE | 2020-10-11 11:29 | MHC.CM.PN ---
CM was able to speak with Son/Gilberto. Patient lives with Gilberto and her . Gilberto is willing and prefers to be taught how to administer IV ABT at home, instead of considering a SNF. CM has made a new referral to [facility] (will need [facility] approval to use [facility]) and to [facility] Medical has been made aware of who Patient has for home support and that the goal for dc is to return home with services and family support. Gilberto has indicated that Patient's Daughter from [place] will be visiting and can also assist with care. CM will follow for possible need to adjust the dc plan.
[2020-10-11 11:34] LABS: Glucose, Whole Blood 62 mg/dL (60-115)
--- NOTE | 2020-10-11 11:56 | P.CNUR_ITS ---
History of Present Illness Consult details Consult date: 10/11/20 Narrative: Hayley is a Haitian-speaking female Known to Urology Was evaluated in August for recurring UTI Prescribed Estrace cream in order to be used 3 times weekly for the foreseeable future This is not on her current medication list Would make sure that she is on Estrace cream as this is 1 of the few things that will prevent these recurrences Is seen by infectious disease who is suggesting up to 14 days with IV therapy Would also add methenamine with her vitamin C to try to create a more hostile urine environment Difficult to determine if has issues with bladder emptying - recommend PVR x3 to determine emptying PMFSH Past Medical History Medical History B12 deficiency Dysuria Hypothyroidism Iron deficiency anemia Osteoporosis Vitamin D deficiency Family History Family History Father No problems noted. Mother Heart attack Diabetes mellitus CVD (cardiovascular disease) Arthritis of knee Stomach cancer Sister COVID-19 Surgical History Surgical History History of arthroscopy of left shoulder History of esophagogastroduodenoscopy (EGD) Hx of colonoscopy Social History Social History Household Members: Spouse Housing: House Alcohol intake: current Alcohol intake frequency: does not drink Smoking Status: Never smoker service: No Meds Allergies Allergy/AdvReac Type Severity Reaction Status Date / Time No Known Allergies Allergy Verified 10/05/20 08:34 [No Known Allergies*] Active Medications: Current Medications Generic Name Dose Route Start Last Admin Trade Name Freq PRN Reason Stop Dose Admin Acetaminophen 650 mg 10/09/20 12:10 10/09/20 16:56 Acetaminophen 325 Mg Tablet PO 650 mg Q6H PRN Administration Pain, Mild (Pain Scale 1-3) Lipase/Protease/Amylase 1 cap 10/09/20 17:00 10/11/20 09:18 Lipase/Prot/Amylase 24/76/120k 1 Cap Capsule. PO 1 cap QIDWMHS AMINA Administration Ascorbic Acid 500 mg 10/09/20 21:00 10/11/20 09:18 Ascorbic Acid 500 Mg Tablet PO 500 mg BID AMINA Administration Aspirin 81 mg 10/10/20 09:00 10/11/20 09:18 Aspirin Enteric Coated 81 Mg Tablet. PO 81 mg DAILY AMINA Administration Clonazepam 1 mg 10/09/20 12:10 10/09/20 22:08 Clonazepam 1 Mg Tablet PO 1 mg TID PRN Administration Anxiety Cyanocobalamin 1,000 mcg 10/10/20 09:00 10/11/20 09:18 Cyanocobalamin (Vitamin B-12) 1,000 Mcg Tablet PO 1,000 mcg DAILY AMINA Administration Enoxaparin Sodium 40 mg 10/09/20 18:45 10/10/20 17:41 Enoxaparin Sodium 40 Mg/0.4 Ml Syringe SUBCUT 40 mg Q24H AMINA Administration Ferrous Sulfate 324 mg 10/10/20 15:00 10/11/20 09:18 Ferrous Sulfate 324 Mg Tablet. PO 324 mg TID AMINA Administration Fluticasone/Vilanterol 1 puff 10/10/20 08:00 10/11/20 07:59 Fluticasone/Vilanterol 200/25 Blst.W.Dev INHALE 1 puff RDAILY AMINA Administration Folic Acid 1 mg 10/10/20 09:00 10/11/20 09:19 Folic Acid 1 Mg Tablet PO 1 mg DAILY AMINA Administration Gabapentin 400 mg 10/09/20 15:00 10/11/20 09:18 Gabapentin 400 Mg Capsule PO 400 mg TID AMINA Administration Doxycycline Hyclate 100 mg/ 250 mls @ 166.67 mls/hr 10/09/20 22:00 10/11/20 01:32 Sodium Chloride IV Infused Q12H AMINA Infusion Meropenem 1 gm/ Sodium 100 mls @ 100 mls/hr 10/09/20 16:00 10/11/20 10:17 Chloride IV Infused Q8H AMINA Infusion Insulin Human Lispro 0 unit 10/09/20 21:00 10/11/20 11:44 Insulin Lispro 100 Unit/Ml 3 Ml Vial SUBCUT Not Given QIDACHS [facility] Protocol Levothyroxine Sodium 112 mcg 10/10/20 09:00 10/11/20 09:18 Levothyroxine Sodium 112 Mcg Tablet PO 112 mcg DAILY AMINA Administration Metoclopramide HCl 10 mg 10/09/20 16:30 10/11/20 09:18 Metoclopramide Hcl 10 Mg Tablet PO 10 mg TIDAC AMINA Administration Montelukast Sodium 10 mg 10/09/20 21:00 10/10/20 20:26 Montelukast Sodium 10 Mg Tablet PO 10 mg BEDTIME AMINA Administration Multivitamins/Minerals 1 tab 10/10/20 09:00 10/11/20 09:18 Multivitamin With Minerals Tablet PO 1 tab DAILY AMINA Administration Omeprazole 40 mg 10/09/20 21:00 10/11/20 09:19 Omeprazole 40 Mg Capsule.Dr PO 40 mg BID AMINA Administration Oxycodone HCl 5 mg 10/09/20 12:10 Oxycodone Hcl Immed Release 5 Mg Tablet PO Q6H PRN Pain, Severe Pharmacy Consult 1 each 10/09/20 08:06 Consult Rx Perform Med Rec MISCELLANE ONCE PRN Consult order Senna 17.2 mg 10/09/20 12:10 Sennosides 8.6 Mg Tablet PO BEDTIME PRN constipation Simethicone 160 mg 10/10/20 13:00 10/11/20 09:17 Simethicone 80 Mg Tab.Chew PO 160 mg QID AMINA Administration Sodium Chloride 3 ml 10/09/20 16:00 10/11/20 09:17 0.9 % Sodium Chloride Flush 3 Ml Syringe IVFLUSH 3 ml QSHIFT AMINA Administration Topiramate 50 mg 10/09/20 21:00 10/10/20 20:28 Topiramate 25 Mg Tablet PO 50 mg BEDTIME AMINA Administration Tramadol HCl 50 mg 10/09/20 13:00 10/11/20 05:46 Tramadol Hcl 50 Mg Tablet PO Not Given Q6H AMINA Venlafaxine HCl 75 mg 10/10/20 09:00 10/11/20 09:18 Venlafaxine Hcl Er 75 Mg Cap.Er.24h PO 75 mg DAILY AMINA Administration Venlafaxine HCl 150 mg 10/10/20 09:00 10/11/20 09:18 Venlafaxine Hcl Er 150 Mg Cap.Er.24h PO 150 mg DAILY AMINA Administration Vitamin D 50 mcg 10/10/20 09:00 10/11/20 09:19 Cholecalciferol (Vitamin D3) 25 Mcg Tablet PO 50 mcg DAILY AMINA Administration Zolpidem Tartrate 10 mg 10/09/20 21:00 10/10/20 20:26 Zolpidem Tartrate 5 Mg Tablet PO 10 mg BEDTIME AMINA Administration Home Medications Medication Instructions Recorded Confirmed Last Taken Type ascorbic acid (vitamin C) [Vitamin 500 mg PO BID 07/17/20 10/09/20 Unknown His tory C] aspirin [Aspir-81] 81 mg PO DAILY 07/17/20 10/09/20 Unknown History ferrous sulfate [Iron (ferrous 325 mg PO TID 07/17/20 10/09/20 Unknown History sulfate)] topiramate 50 mg tablet 50 mg PO BEDTIME 07/23/20 10/09/20 Unknown History cyanocobalamin (vitamin B-12) 1,000 mcg SUBLINGUAL DAILY 08/10/20 10/09/20 Unknown History 1,000 mcg sublingual tablet fluticasone 500 mcg-salmeterol 50 1 inh INHALATION BID 08/10/20 10/09/20 Unknown History mcg/dose blistr powdr for inhalation montelukast 10 mg tablet 10 mg PO BEDTIME 08/10/20 10/09/20 Unknown History venlafaxine 150 mg 150 mg PO DAILY 08/10/20 10/09/20 Unknown History capsule,extended release 24 hr zolpidem 10 mg tablet 10 mg PO BEDTIME 08/10/20 10/09/20 Unknown History blood sugar diagnostic #10 ea 09/12/20 Unknown History calcium citrate 200 mg 2 tab PO BID 09/12/20 10/09/20 Unknown History calcium-vitamin D3 6.25 mcg (250 unit) tablet clonazepam 1 mg tablet 1 mg PO TID PRN 09/12/20 10/09/20 Unknown History dulaglutide 0.75 mg/0.5 mL 0.75 mg SUBCUT QWEEK 09/12/20 10/09/20 Unknown History subcutaneous pen injector folic acid 1 mg tablet 1 mg PO DAILY 09/12/20 10/09/20 Unknown History gabapentin 400 mg capsule 400 mg PO TID 09/12/20 10/09/20 Unknown History lancets 33 gauge #100 ea 09/12/20 Unknown History metformin 500 mg tablet,extended 500 mg PO BID 09/12/20 10/09/20 Unknown History release 24 hr multivitamin-ferrous 1 tab PO DAILY 09/12/20 10/09/20 Unknown History fumarate-folic acid 18 mg-400 mcg tablet sennosides 8.6 mg tablet 17.2 mg PO BEDTIME PRN 09/12/20 10/09/20 Unknown History tiotropium bromide 1.25 2 puff PO DAILY 09/12/20 10/09/20 Unknown History mcg/actuation mist for inhalation venlafaxine 75 mg capsule,extended 75 mg PO DAILY 09/12/20 10/09/20 Unknown History release 24 hr Creon 1 cap PO QIDWMHS 10/09/20 10/09/20 Unknown History metoclopramide HCl [Reglan] 10 mg PO TIDAC 10/09/20 10/09/20 Unknown History oxycodone 5 mg PO Q6H PRN 10/09/20 10/09/20 Unknown History Physical Exam Vital Signs: Vital Signs: Last Vital Signs Temp 98.1 F 10/11/20 10:47 Pulse 83 10/11/20 10:47 Resp 18 10/11/20 10:47 BP 111/56 L 10/11/20 10:47 Pulse Ox 95 10/11/20 10:47 Body Mass Index 18.7 Const: General: cooperative, healthy appearing, comfortable and no acute distress Nutritional Appearance: average body habitus Orientation/consci ousness: oriented to person, oriented to place and oriented to time Eyes: General: appearance normal, both eyes and all related structures Chest: Chest palpation & inspection: normal inspection of the chest Resp: Effort & Inspection: normal respiratory effort Cardio: Rate: regular rate GI: Inspection: Yes normal to inspection Skin: Hair: normal Neuro: General: oriented to person, oriented to place and oriented to time Extrem: General: Yes normal to inspection Results Labs Result diagrams: 10/11/20 05:39 10/11/20 05:39 Labs: Abnormal lab results 10/11/20 10/11/20 10/11/20 Range/Units 05:39 05:39 10:28 RBC 3.32 L (4.20-5.50) X10*6/uL Hgb 9.2 L (12.0-16.0) g/dl Hct 29.1 L (37-47) % Lymph % (Auto) 16.9 L (20-40) % [place] % (Auto) 11.5 H (2-11) % Abs Immat Gran (auto) 0.04 H (0.00-0.03) X10*3/uL Chloride 110 H (96-108) mmol/L Anion Gap 10 L (12-20) POC Glucose 140 H (60-115) mg/dL Random Glucose 55 L* (60-115) mg/dL Calcium 8.3 L (8.4-10.2) mg/dL Short CBC 10/11/20 Range/Units 05:39 WBC 9.7 (4.8-10.8) X10*3/uL Hgb 9.2 L (12.0-16.0) g/dl Hct 29.1 L (37-47) % Plt Count 232 (160-400) X10*3/uL BMP 10/11/20 05:39 Sodium 141 Potassium 4.5 Chloride 110 H Carbon Dioxide 26 BUN 12 Creatinine 0.75 Calcium 8.3 L Urine 10/09/20 Range/Units 08:27 Urine Color STRAW Urine Appearance HAZY Urine pH 7.0 (5.0-8.0) Ur Specific [place] 1.015 (1.005-1.025) Urine Protein NEG (NEG-TRACE) MG/DL Urine Glucose (UA) NEG (NEG) MG/DL All other labs normal. Assessment and Plan (1) Recurrent UTI (urinary tract infection): Status: Acute In-hospital follow ID recommendations for treatment On discharge needs to use methenamine 1 g p.o. daily and restart Estrace cream Given UTI recurrence would suggest Estrace applied daily for 1-2 months
--- NOTE | 2020-10-11 12:28 | HO.PM.IMPN ---
Subjective Subjective Date of Service: 10/11/20 Interval History: follow up pneumonia, UTI reports decreased energy this morning, decreased PO intake - doesn't like hospital food some abdominal pain, nausea; no vomiting no shortness of breath, some cough Physical Exam Vital Signs: Vital Signs: Last Vital Signs Temp 98.1 F 10/11/20 10:47 Pulse 83 10/11/20 10:47 Resp 18 10/11/20 10:47 BP 111/56 L 10/11/20 10:47 Pulse Ox 95 10/11/20 10:47 Body Mass Index 18.7 Const: General: comfortable, no acute distress, alert and awake Nutritional Appearance: well nourished HENMT: Head: Yes normocephalic and Yes atraumatic Eyes: Sclerae: sclerae normal Chest: Chest palpation & inspection: normal inspection of the chest Resp: Effort & Inspection: normal respiratory effort and no respiratory distress Cardio: Rate: regular rate Rhythm: regular rhythm GI: Palpation (GI): Soft to palpation Neuro: Cranial nerves: Yes CN's II-XII intact bilaterally and Yes Bilaterally intact EOM present Extrem: General: Yes normal to inspection Objective Data Current Medications Generic Name Dose Route Start Last Admin Trade Name Freq PRN Reason Stop Dose Admin Acetaminophen 650 mg 10/09/20 12:10 10/09/20 16:56 Acetaminophen 325 Mg Tablet PO 650 mg Q6H PRN Administration Pain, Mild (Pain Scale 1-3) Lipase/Protease/Amylase 1 cap 10/09/20 17:00 10/11/20 11:51 Lipase/Prot/Amylase 24/76/120k 1 Cap Capsule. PO 1 cap QIDWMHS AMINA Administration Ascorbic Acid 500 mg 10/09/20 21:00 10/11/20 09:18 Ascorbic Acid 500 Mg Tablet PO 500 mg BID AMINA Administration Aspirin 81 mg 10/10/20 09:00 10/11/20 09:18 Aspirin Enteric Coated 81 Mg Tablet. PO 81 mg DAILY MAINA Administration Clonazepam 1 mg 10/09/20 12:10 10/09/20 22:08 Clonazepam 1 Mg Tablet PO 1 mg TID PRN Administration Anxiety Cyanocobalamin 1,000 mcg 10/10/20 09:00 10/11/20 09:18 Cyanocobalamin (Vitamin B-12) 1,000 Mcg Tablet PO 1,000 mcg DAILY AMINA Administration Enoxaparin Sodium 40 mg 10/09/20 18:45 10/10/20 17:41 Enoxaparin Sodium 40 Mg/0.4 Ml Syringe SUBCUT 40 mg Q24H AMINA Administration Ferrous Sulfate 324 mg 10/10/20 15:00 10/11/20 09:18 Ferrous Sulfate 324 Mg Tablet. PO 324 mg TID AMINA Administration Fluticasone/Vilanterol 1 puff 10/10/20 08:00 10/11/20 07:59 Fluticasone/Vilanterol 200/25 Blst.W.Dev INHALE 1 puff RDAILY AMINA Administration Folic Acid 1 mg 10/10/20 09:00 10/11/20 09:19 Folic Acid 1 Mg Tablet PO 1 mg DAILY AMINA Administration Gabapentin 400 mg 10/09/20 15:00 10/11/20 09:18 Gabapentin 400 Mg Capsule PO 400 mg TID AMINA Administration Doxycycline Hyclate 100 mg/ 250 mls @ 166.67 mls/hr 10/09/20 22:00 10/11/20 10:30 Sodium Chloride IV 166.67 mls/hr Q12H AMINA Administration Meropenem 1 gm/ Sodium 100 mls @ 100 mls/hr 10/09/20 16:00 10/11/20 10:17 Chloride IV Infused Q8H AMINA Infusion Insulin Human Lispro 0 unit 10/09/20 21:00 10/11/20 11:44 Insulin Lispro 100 Unit/Ml 3 Ml Vial SUBCUT Not Given QIDACHS [facility] Protocol Levothyroxine Sodium 112 mcg 10/10/20 09:00 10/11/20 09:18 Levothyroxine Sodium 112 Mcg Tablet PO 112 mcg DAILY AMINA Administration Metoclopramide HCl 10 mg 10/09/20 16:30 10/11/20 11:50 Metoclopramide Hcl 10 Mg Tablet PO 10 mg TIDAC AMINA Administration Montelukast Sodium 10 mg 10/09/20 21:00 10/10/20 20:26 Montelukast Sodium 10 Mg Tablet PO 10 mg BEDTIME AMINA Administration Multivitamins/Minerals 1 tab 10/10/20 09:00 10/11/20 09:18 Multivitamin With Minerals Tablet PO 1 tab DAILY AMINA Administration Omeprazole 40 mg 10/09/20 21:00 10/11/20 09:19 Omeprazole 40 Mg Capsule.Dr PO 40 mg BID AMINA Administration Oxycodone HCl 5 mg 10/09/20 12:10 Oxycodone Hcl Immed Release 5 Mg Tablet PO Q6H PRN Pain, Severe Pharmacy Consult 1 each 10/09/20 08:06 Consult Rx Perform Med Rec MISCELLANE ONCE PRN Consult order Senna 17.2 mg 10/09/20 12:10 Sennosides 8.6 Mg Tablet PO BEDTIME PRN constipation Simethicone 160 mg 10/10/20 13:00 10/11/20 11:51 Simethicone 80 Mg Tab.Chew PO 160 mg QID AMINA Administration Sodium Chloride 3 ml 10/09/20 16:00 10/11/20 09:17 0.9 % Sodium Chloride Flush 3 Ml Syringe IVFLUSH 3 ml QSHIFT AMINA Administration Topiramate 50 mg 10/09/20 21:00 10/10/20 20:28 Topiramate 25 Mg Tablet PO 50 mg BEDTIME AMINA Administration Tramadol HCl 50 mg 10/09/20 13:00 10/11/20 11:50 Tramadol Hcl 50 Mg Tablet PO 50 mg Q6H AMINA Administration Venlafaxine HCl 75 mg 10/10/20 09:00 10/11/20 09:18 Venlafaxine Hcl Er 75 Mg Cap.Er.24h PO 75 mg DAILY AMINA Administration Venlafaxine HCl 150 mg 10/10/20 09:00 10/11/20 09:18 Venlafaxine Hcl Er 150 Mg Cap.Er.24h PO 150 mg DAILY AMINA Administration Vitamin D 50 mcg 10/10/20 09:00 10/11/20 09:19 Cholecalciferol (Vitamin D3) 25 Mcg Tablet PO 50 mcg DAILY AMINA Administration Zolpidem Tartrate 10 mg 10/09/20 21:00 10/10/20 20:26 Zolpidem Tartrate 5 Mg Tablet PO 10 mg BEDTIME AMINA Administration Labs CBC & Chem 7: 10/11/20 05:39 10/11/20 05:39 Microbiology Microbiology Results: Microbiology 10/09/20 08:51 Blood - Venous Blood Culture - Preliminary No growth after 48 hours. 10/09/20 08:46 Blood - Venous Blood Culture - Preliminary No growth after 48 hours. Assessment and Plan (1) Cystitis: Status: Acute Assessment and Plan: 69-year-old German-speaking woman admitted to the hospital with likely aspiration pneumonia and ESBL urinary tract infection failed outpatient treatment with Bactrim Sepsis. Resolved. poa underlying pneumonia, uti BCx neg x 48 hours ESBL UTI. h/o recurrent UTIs. Has failed Bactrim in past, most recently started a few days ago. Final UCx susceptible to ertapenem, will need midline for IV abx on d/c -Continue IV meropenem started on 10/09 -ID following, rec inpatient urology evaluation -seen by urology rec, estrace cream 3x/week and methanamine on discharge; check PVR x 3 -midline for IV abx Aspiration pneumonia. Right-sided multilobar pneumonia noted on chest CT. -will be treated with meropenem for urinary tract infections with should cover will also add doxycycline. 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 hold metformin -SSI, POCs -ADA diet GERD -ppi Chronic pain -continue oxycodone, gabapentin, tramadol Depression/anxiety -continue clonazepam, venlafaxine Hypothyroidism -continue levothyroxine DVT prophylaxis with Lovenox disposition - home with [facility]NA when medically ready, possibly tomorrow Attending: Dr. Nuñez
--- NOTE | 2020-10-11 13:12 | MHC.CM.PN ---
Patient's Son/Gilberto will receive his first, TEACH, for home IV ABT administration tomorrow at 1 PM in Patient's room. [employer] Metallurgist may need assist reaching a Wheel Polisher.
[2020-10-11 15:42] LABS: Glucose, Whole Blood 100 mg/dL (60-115)
--- NOTE | 2020-10-11 15:47 | HO.MIDLINE_ITS ---
PICC Line Insertion MIDLINE INSERTION Diagnosis: ESBL UTI Indication: QUALITY ASSURANCE SPECIALIST IV ANTIBIOTICS Pertinent Labs: REVIEWED Technique: Using sterile technique including cap and mask, glove and drape, the RIGHT arm was prepped and draped in the usual sterile fashion of full barrier technique with CHG. Using ultrasound guidance, BASILIC vein access was obtained IN SINGLE ATTEMPT BY THIS RN. A SINGLE LUMEN, NON-PASV, (20G x 8 CM) MIDLINE was positioned. The procedure was performed in 453-1. Ultrasound was used to document vein patency and for needle entry. A formal ultrasound picture was recorded. Vascular Biomedical Engineering Director has released the line for use and it is currently dressed with a StatLock, Tegaderm, and CHG disc. Verification has been performed for blood return and line patency. Arm Circumference: 26 CM Equipment: [employer] POWERGLIDE PRO MIDLINE Catheter Type: SINGLE LUMEN, NON-PASV, ([id number]) Lot #: [id number]
[2020-10-11] MEDS: Heparin Sodium,Porcine Flush 50 UNITS, 0.9 % Sodium Chloride Flush 5 ML IVFLUSH ×2 (16:51→21:49)
[2020-10-11] MEDS: Enoxaparin Sodium 40 MG/0.4 ML SYRINGE SUBCUT (18:04)
[2020-10-11 19:38] LABS: Glucose, Whole Blood 61 mg/dL (60-115)
[2020-10-11] MEDS: Montelukast Sodium 10 MG TABLET PO (20:51)
[2020-10-11] MEDS: Zolpidem Tartrate 5 MG TABLET 10 MG PO (20:52)
[2020-10-11] MEDS: Topiramate 25 MG TABLET 50 MG PO (20:53)
--- NOTE | 2020-10-12 01:45 | PC.NURSE ---
Pt cared for by this nurse for the past two nights 10/10 and 10/11. Upon first night pt was with a sitter, presenting A&O, calm and cooperative. dog or animal sitter was removed for this reason. Pt was medicated with scheduled bedtime meds and shortly after became anxious, confused, getting out of bed and trying to leave. Sitter was placed back. Pt once again calm and cooperative. On the second night with this patient, she is once again calm and with sitter. This time sitter remained with patient after this nurse gave her scheduled bedtime medications. Shortly after this patient became very confused and hallucinating similar to previous night. Sitter reported significant change in patient behavior. Pt is better re-oriented with a sitter but ? if bedtime medication regimen should be reviewed. Will report to oncoming RN to pass to day team.
[2020-10-12 04:00] VITALS: BP 138/68; PULSE 78; RESP 18; TEMP 36.3; O2SAT 96
[2020-10-12 07:11] VITALS: BP 114/60; PULSE 76; RESP 17; TEMP 37.3; O2SAT 96
[2020-10-12 07:16] LABS: Glucose, Whole Blood 75 mg/dL (60-115)
[2020-10-12] MEDS: Fluticasone/Vilanterol 200/25 BLST.W.DEV 1 PUFF INHALE (07:27)
[2020-10-12 07:29] VITALS: PULSE 84; O2SAT 96
[2020-10-12] MEDS: Metoclopramide HCl 10 MG TABLET PO ×2 (07:41→11:36)
[2020-10-12] MEDS: Lipase/Prot/Amylase 24/76/120K 1 CAP CAPSULE.DR PO ×2 (07:41→11:36)
[2020-10-12] MEDS: traMADoL HCL 50 MG TABLET PO ×2 (07:41→14:21)
[2020-10-12 07:46] LABS: Estimated Glomerular Filt Rate > 60
[2020-10-12] MEDS: Levothyroxine Sodium 112 MCG TABLET PO (09:05)
[2020-10-12] MEDS: Venlafaxine HCl ER 75 MG CAP.ER.24H PO (09:05)
[2020-10-12] MEDS: Gabapentin 400 MG CAPSULE PO ×2 (09:06→14:22)
[2020-10-12] MEDS: Ascorbic Acid 500 MG TABLET PO (09:06)
[2020-10-12] MEDS: Omeprazole 40 MG CAPSULE.DR PO (09:06)
[2020-10-12] MEDS: Cyanocobalamin (Vitamin B-12) 1,000 MCG TABLET 1000 MCG PO (09:06)
[2020-10-12] MEDS: Venlafaxine HCl ER 150 MG CAP.ER.24H PO (09:06)
[2020-10-12] MEDS: Folic Acid 1 MG TABLET PO (09:06)
[2020-10-12] MEDS: Cholecalciferol (Vitamin D3) 25 MCG TABLET 50 MCG PO (09:07)
[2020-10-12] MEDS: Simethicone 80 MG TAB.CHEW 160 MG PO ×2 (09:07→14:21)
[2020-10-12] MEDS: Aspirin Enteric Coated 81 MG TABLET.DR PO (09:08)
[2020-10-12] MEDS: Heparin Sodium,Porcine Flush 50 UNITS, 0.9 % Sodium Chloride Flush 5 ML IVFLUSH ×2 (09:09→14:22)
[2020-10-12] MEDS: Doxycycline Hyclate 100 MG in 0.9 % Sodium Chloride 250 ML 166.67 MG IV (09:10)
[2020-10-12] MEDS: Ferrous Sulfate 324 MG TABLET.DR PO ×2 (09:18→14:22)
--- NOTE | 2020-10-12 09:37 | P.DS_ITS ---
DS: Providers Provider Date of Service: 10/12/20 Date of admission: 10/09/20 12:10 Primary care physician: Natalee Rooney MD Consults: 10/09/20 12:10 Consult to Infectious Diseases Routine Consulting Provider: Luh Johnson Reason for consultation: ASPIRATION PNA, ESBL UTI Has provider been notified: No Consult to Infectious Diseases Routine Consulting Provider: Luh Johnson Reason for consultation: ASPIRATION, ESBL UTI Has provider been notified: No 10/11/20 08:27 Consult to Urology Routine Consulting Provider: Ryan Burrows Reason for consultation: recurrent uti Has provider been notified: No DS: Diagnosis Discharge Diagnosis (1) Sepsis: Status: Acute (2) Cystitis: Status: Acute (3) Pneumonia: Status: Acute (4) Dysphagia: Status: Acute DS: Medications Discharge Medications Home Medications: Home Medications Medication Instructions Recorded Confirmed ascorbic acid (vitamin C) [Vitamin 500 mg PO BID 07/17/20 10/09/20 C] aspirin [Aspir-81] 81 mg PO DAILY 07/17/20 10/09/20 ferrous sulfate [Iron (ferrous 325 mg PO TID 07/17/20 10/09/20 sulfate)] topiramate 50 mg tablet 50 mg PO BEDTIME 07/23/20 10/09/20 cyanocobalamin (vitamin B-12) 1,000 mcg SUBLINGUAL DAILY 08/10/20 10/09/20 1,000 mcg sublingual tablet fluticasone 500 mcg-salmeterol 50 1 inh INHALATION BID 08/10/20 10/09/20 mcg/dose blistr powdr for inhalation montelukast 10 mg tablet 10 mg PO BEDTIME 08/10/20 10/09/20 venlafaxine 150 mg 150 mg PO DAILY 08/10/20 10/09/20 capsule,extended release 24 hr zolpidem 10 mg tablet 10 mg PO BEDTIME 08/10/20 10/09/20 blood sugar diagnostic #10 ea 09/12/20 calcium citrate 200 mg 2 tab PO BID 09/12/20 10/09/20 calcium-vitamin D3 6.25 mcg (250 unit) tablet clonazepam 1 mg tablet 1 mg PO TID PRN 09/12/20 10/09/20 dulaglutide 0.75 mg/0.5 mL 0.75 mg SUBCUT QWEEK 09/12/20 10/09/20 subcutaneous pen injector folic acid 1 mg tablet 1 mg PO DAILY 09/12/20 10/09/20 gabapentin 400 mg capsule 400 mg PO TID 09/12/20 10/09/20 lancets 33 gauge #100 ea 09/12/20 metformin 500 mg tablet,extended 500 mg PO BID 09/12/20 10/09/20 release 24 hr multivitamin-ferrous 1 tab PO DAILY 09/12/20 10/09/20 fumarate-folic acid 18 mg-400 mcg tablet sennosides 8.6 mg tablet 17.2 mg PO BEDTIME PRN 09/12/20 10/09/20 tiotropium bromide 1.25 2 puff PO DAILY 09/12/20 10/09/20 mcg/actuation mist for inhalation venlafaxine 75 mg capsule,extended 75 mg PO DAILY 09/12/20 10/09/20 release 24 hr Creon 1 cap PO QIDWMHS 10/09/20 10/09/20 metoclopramide HCl [Reglan] 10 mg PO TIDAC 10/09/20 10/09/20 oxycodone 5 mg PO Q6H PRN 10/09/20 10/09/20 estradiol 1 g VAGINAL 3XW 10/11/20 10/11/20 Previous Rx's Medication Instructions Recorded Tirosint 112 mcg capsule 112 mcg PO DAILY 30 Days #30 cap NS 07/23/20 cholecalciferol (vitamin D3) 50 50 mcg PO DAILY 30 Days #30 cap 07/23/20 mcg (2,000 unit) capsule omeprazole 40 mg capsule,delayed 40 mg PO BID 30 Days #60 cap 08/10/20 release simethicone 180 mg capsule 180 mg PO QID 30 Days #120 cap 08/10/20 sulfamethoxazole-trimethoprim 1 tab PO BID #14 tab 10/04/20 [Bactrim DS] tramadol 50 mg tablet 50 mg PO Q6H #120 tab 10/05/20 DS: Summary Hospital Course Hospital Course: This is a 69-year-old Macedonian-speaking woman presented with multiple complaints including back and neck pain. She presented with a productive cough with yellow-green sputum. She denied chest pain, shortness of breath, nausea, vomiting, diarrhea. She was recently treated with Bactrim for ESBL E coli urinary tract infection, appears to have had multiple courses of this, possible failure. She presented with fever, leukocytosis, tachycardia, tachypnea. Chest CT did show right-sided infiltrates multi lobar pneumonia likely aspiration. Blood pressure noted to be in the softer side. She was started on ertapenem, doxycycline given half a L of IV fluid. She will be admitted for further management and treatment of aspiration pneumonia and ESBL UTI with sepsis. Sepsis patient met sepsis criteria on admission. Source urine vs pulmonary. She was sta rted on antibiotics to cover UTI as well as pneumonia. Blood cultures remain negative. Patient has been afebrile since day of admission. UTI UCx grew ESBL positive E coli sensitive to ertapenem. She was started on meropenem in the hospital. She was seen in consultation by Infectious Diseases who recommended 14 days of IV antibiotics. She will be transitioned to IV ertapenem to complete total of 14 days as an outpatient. A midline was placed 10/11. She was evaluated by Urology who recommended resuming Estrace cream and starting methenamine 1 gm daily due to recurrent UTIs. She should call to schedule follow up appointment with urology. She will be discharged home with visiting nursing. Blood cultures have remained negative. PNA CT scan on admission showed multi lobar pneumonia. She was treated with antibiotics and will be discharged home to complete course. She had no hypoxia during hospital stay. Dysphagia Patient was evaluated by speech who recommended MBSS. No aspiration or laryngeal penetration. Speech recommended ground diet with thin liquids and bills crushed with puree. Can consider outpatient GI evaluation. Time Spent with Patient Time attestation: Total time spent providing and/or coordinating discharge services: Discharge coordination time: Greater than 30 minutes Physical Exam Vital Signs: Vital Signs: Last Vital Signs Temp 99.2 F 10/12/20 07:11 Pulse 76 10/12/20 07:11 Resp 17 10/12/20 07:11 BP 114/60 10/12/20 07:11 Pulse Ox 96 10/12/20 07:11 Body Mass Index 18.7 Const: General: comfortable, no acute distress, alert and awake Nutritional Appearance: well nourished and thin HENMT: Head: Yes normocephalic and Yes atraumatic Eyes: Sclerae: sclerae normal Chest: Chest palpation & inspection: normal inspection of the chest Resp: Effort & Inspection: normal respiratory effort and no respiratory distress GI: Palpation (GI): Soft to palpation and nontender Neuro: Cranial nerves: Yes CN's II-XII intact bilaterally and Yes Bilaterally intact EOM present DS: Data Data Completed and Pending Labs on day of discharge: Laboratory Results - last 24 hr 10/11/20 10/11/20 10/11/20 10:28 11:29 15:38 Creatinine Estim Creat Clear Calc Estimated GFR POC Glucose 140 H 62 100 10/11/20 10/12/20 10/12/20 19:34 07:00 07:09 Creatinine 0.74 Estim Creat Clear Calc 50.0 Estimated GFR > 60 POC Glucose 61 75 Preliminary micro results at discharge 10/09/20 08:51 Blood Culture - Preliminary Blood - Venous No growth after 48 hours. 10/09/20 08:46 Blood Culture - Preliminary Blood - Venous No growth after 48 hours. Discharge Plan Discharge Patient Disposition: Home Health Service Discharge Diagnosis: Sepsis UTI Pneumonia Dysphagia Referrals: [facility] [Other] - 1 Week Tequ[facility] [Outside] - 1 Week Ryan Burrows MD [Physician] - 1 Week Natalee Rooney MD [Primary Care Provider] - 1 Week Discharge Medications: New ertapenem 1 gram recon soln 1 g IV DAILY 11 Days RF: 0 methenamine hippurate 1 gram tablet 1 g PO DAILY 30 Days Qty: 30 RF: 0 doxycycline hyclate 100 mg capsule 100 mg PO BID 2 Days Qty: 4 RF: 0 Continued levothyroxine [Tirosint] 112 mcg capsule 112 mcg PO DAILY 30 Days Qty: 30 RF: 6 cholecalciferol (vitamin D3) 50 mcg (2,000 unit) capsule 50 mcg PO DAILY 30 Days Qty: 30 RF: 6 tramadol 50 mg tablet 50 mg PO Q6H Qty: 120 RF: 5 aspirin 81 mg Tablet,Delayed Release (Dr/Ec) 81 mg PO DAILY RF: 0 ascorbic acid (vitamin C) [Vitamin C] 500 mg Tablet 500 mg PO BID RF: 0 ferrous sulfate [Iron (ferrous sulfate)] 325 mg (65 mg iron) Tablet 325 mg PO TID RF: 0 metoclopramide HCl [Reglan] 10 mg tablet 10 mg PO TIDAC RF: 0 Creon 24,000-76,000 -120,000 unit capsule,delayed release(DR/EC) 1 cap PO QIDWMHS RF: 0 oxycodone 5 mg tablet 5 mg PO Q6H PRN (Reason: Pain, Severe) RF: 0 estradiol 0.01 % (0.1 mg/gram) cream 1 g vaginal 3XW RF: 0 clonazepam 1 mg tablet 1 mg PO TID PRN (Reason: Anxiety) RF: 0 dulaglutide 0.75 mg/0.5 mL pen injector 0.75 mg subcut QWEEK RF: 0 tiotropium bromide 1.25 mcg/actuation mist 2 puff PO DAILY RF: 0 gabapentin 400 mg capsule 400 mg PO TID RF: 0 venlafaxine 75 mg capsule,extended release 24hr 75 mg PO DAILY RF: 0 sennosides 8.6 mg tablet 17.2 mg PO BEDTIME PRN (Reason: constipation) RF: 0 (DME) lancets 33 gauge misc See Rx Instructions ea Not Applicable BID Qty: 100 RF: 0 (DME) blood sugar diagnostic Strip See Rx Instructions strip Not Applicable BID Qty: 10 RF: 0 calcium citrate-vitamin D3 200 mg-6.25 mcg (250 unit) tablet 2 tab PO BID RF: 0 cnjgttbktkns-dzyp-wbnbs acid 18-400 mg-mcg tablet 1 tab PO DAILY RF: 0 metformin 500 mg tablet extended release 24 hr 500 mg PO BID RF: 0 folic acid 1 mg tablet 1 mg PO DAILY RF: 0 topiramate 50 mg tablet 50 mg PO BEDTIME RF: 0 montelukast 10 mg tablet 10 mg PO BEDTIME RF: 0 cyanocobalamin (vitamin B-12) 1,000 mcg tablet, sublingual 1,000 mcg sublingual DAILY RF: 0 fluticasone propion-salmeterol 500-50 mcg/dose blister with device 1 inh inhalation BID RF: 0 venlafaxine 150 mg capsule,extended release 24hr 150 mg PO DAILY RF: 0 zolpidem 10 mg tablet 10 mg PO BEDTIME RF: 0 omeprazole 40 mg capsule,delayed release(DR/EC) 40 mg PO BID 30 Days Qty: 60 RF: 4 simethicone 180 mg capsule 180 mg PO QID 30 Days Qty: 120 RF: 3 Discontinued sulfamethoxazole-trimethoprim [Bactrim DS] 800-160 mg tablet 1 tab PO BID Qty: 14 RF: 0 Discharge Orders: Discharge Order (Routine); Ordered 10/12/20 Ordered By: Charlee Arnold Diet: other Activity on Discharge: As tolerated Stand Alone Forms: Patient Portal Discharge page Care Plan Goals: See below Health Concerns: Sepsis UTI Dysphagia PNA Plan of Treatment: UTI - Finish course of antibiotics. Resume using estrace cream, start methenamine. Call urology to schedule follow up appointment Pneumonia - Finish course of antibiotics Dysphagia - you have been seen by the speech pathologist who has recommended: -Ground diet with foods to be served with sauce or gravy when possible. Soft foods. -Sit upright at 90 degree angle during meals and for at least 30 minutes after -Avoid use of straws due to delay in swallow trigger -Take small bites and chew food well -Alternate each bite of food with sip of liquid -Multiple swallow strategy -Individual sips of liquid, no consecutive sips or ?chugging? of liquid Assessment: See discharge summary Discharge Date/Time: 10/12/20 16:16
[2020-10-12 11:19] LABS: Glucose, Whole Blood 82 mg/dL (60-115)
--- NOTE | 2020-10-12 11:24 | W.MHC.F2F ---
Service Date Service Date: 10/12/20 Encounter Date of encounter: 10/12/20 Reasons for Services Reason for senior living: administration of IV, SQ, or IM injection and medication management MD Overseeing Care: Natalee Rooney Homebound: Leaving the home is medically contraindicated at this time without the asist of a device and/or another person due th the listed conditions above and below. Reason homebound: weakness related to hospital stay Certification: Based on the above findings, I certify that this patient is confined to the home and needs intermittent senior living care, physical therapy and/or speech therapy, or continues to need occupational therapy. The patient is under my care, and I have initiated the establishment of the plan of care. The patient will be followed by a physician who will periodically review the plan of care.
[2020-10-12 11:54] VITALS: BP 124/83; PULSE 85; RESP 20; TEMP 36.6; O2SAT 97
--- NOTE | 2020-10-12 12:44 | MHC.SL.IMP ---
Date of Plan of Treatment: 10/11/20 Onset of Symptoms/Illness: 10/11/20 Date Treatment Started: 10/11/20 Admitting Diagnosis: Aspiration pneumonia, UTI Primary Speech & Language Diagnosis: R13.12 Oropharyngeal Phase Dysphagia Reason for Today's Visit: 52477 Modified Barium Swallow Study Pre-evaluation Dietary Consistencies: Regular Pre-evaluation Liquid Consistency: Thin Pre-evaluation Medication Administration: Whole with Liquid Medical History: Comments: Modified Barium Swallow Study Fluoroscopic Evaluation of Swallowing Function CPT Code 90993 Evaluation Year: 2020 Reason for Study: Patient reports globus sensation. Referring Physician: Scout Nuñez MD Evaluating Clinician: Senait Nguyen M.A., CCC-READING RECOVERY TEACHER Study Number: 1 Patient Name: Hayley Wang Status: Inpatient, Wheelchair Age: 69 Gender: Female MEDICAL HISTORY: Primary (admitting) Diagnosis: Aspiration pneumonia UTI Year of Onset or Diagnosis: 2020 Comorbidities: Recurrent UTI B12 deficiency Dysuria Hypothyroidism Iron deficiency anemia Osteoporosis Vitamin D deficiency Current (pre-evaluation) Intake/Diet: Route: PO Diet Grade: Regular Liquid Consistencies: Thin Pre-Study Functional Oral Intake Scale (FOIS): 5- Total oral intake of multiple consistencies requiring special preparation Pain: None reported at time of study SUBJECTIVE: Patient is a 69 year old woman who presented in the ED with complaints of neck and back pain, generalized weakness and malaise, productive cough with yellow/green sputum. Patient was admitted for fever, cystitis, leukocytosis, toxic encephalopathy, and pneumonia. Patient was recently discharged from ED 5 days ago diagnosed with UTI. Patient's head CT showed, no acute findings; mild generalized atrophy and nonspecific periventricular white matter disease. Chest CT showed, nodular airspace disease present within right upper and lower lobe suggestive of multilobar pneumonia. RN reports that patient swallowed several pills with water without difficulty. Patient reports globus sensation and needing to swallow several times for both solids and liquids. Oral Motor Exam Facial Symmetry: Symmetrical Facial Movement: Controlled Mouth Occlusion: Normal Oral-Facial Teeth Characteristics: Intact/Normal Oral-Facial Lip Pucker Description: Normal Oral-Facial Smile (Lips) Description: Normal Oral-Facial Puff Cheeks Description: Normal Tongue Size: Normal Tongue Frenum Length: Normal Tongue Excursion Description: Normal Tongue Range of Movement Description: Reduced Tongue Speed of Movement Description: Reduced Tongue Strength of Movement (against opposing pressure): Reduced Tongue Movement Characteristics: Normal/Absent Is patient able to manage secretions?: Yes Is patient able to produce volitional cough?: Yes Food and Liquid Trials: Oral Impairment: Lip Closure: 0=No labial escape Oral Impairment: Tongue Control During Bolus Hold: 2=Posterior escape of less than half of bolus Oral Impairment: Bolus Preparation/Mastication: 1=Slow prolonged chewing/mashing with complete re-collection Oral Impairment: Bolus Transport/Lingual Motion: 2=Slowed tongue motion Oral Impairment: Oral Residue: 2=Residue collection on oral structures Oral Impairment:Initiation of Pharyngeal Swallow: 3=Bolus head in pyriforms Pharyngeal Impairment: Soft Palate Elevation: 0=No bolus between soft palate (SP)/pharyngeal wall (PW) Pharyngeal Impairment: Laryngeal Elevation: 2=Minimal superior movement of thyroid cartilage (see description) Pharyngeal Impairment: Anterior Hyoid Excursion: 1=Partial anterior movement Pharyngeal Impairment: Epiglottic Movement: 1=Partial inversion Pharyngeal Impairment: Laryngeal Vestibular Closure:: 0=Complete: no air/contrast in laryngeal vestibule Pharyngeal Impairment: Pharyngeal Stripping Wave: 2=Absent Pharyngeal Impairment: Pharyngeal Contraction: Did not test Pharyngeal Impairment: Pharyngoesophageal Segment Openin=Partial distention/partial duration: partial obstruction of flow Pharyngeal Impairment: Tongue Base (TB) Retraction: 3=Wide column of contrast/air between TB and posterior PW Pharyngeal Impairment: Pharyngeal Residue: 3=Majority of contrast within or on pharyngeal structures Pharyngeal Impairment: Esophageal Clearance Upright Position: Did not test Impressions and Recommendations Clinical Observations: OBJECTIVE: Time-out: performed at 03:00 Evaluation Start: 02:45; Stop: 02:50 Patient Positioning: Seated 70-90 degrees Viewing Planes: LATERAL ONLY Contrast: MBSImP? Standardized Protocol using commercially prepared, standardized Barium viscosities, including: Varibar? THIN LIQUID (40% w/v, <15 cps) , Varibar? NECTAR (40% w/v, <150-450 cps) , Varibar? THIN HONEY (40% w/v, <800-1800 cps) , 1/2 Shortbread Cookie (1 x1 x.25 ) MBSImP ID: [id number] Results: Lip closure for intraoral bolus containment resulted in no labial escape. Tongue control during bolus hold resulted in posterior escape of less than half of the bolus. Bolus preparation and mastication resulted in slow, prolonged chewing/mashing but with complete re-collection. Bolus transport/lingual motion was with slowed tongue motion. Oral residue was a collection on oral structures. Initiation of the pharyngeal swallow occurred when the bolus head was in the pyriform sinuses. Soft palate elevation resulted in no bolus between the soft palate and the pharyngeal wall. Laryngeal elevation was incomplete, as indicated through minimal superior movement of the thyroid cartilage with minimal approximation of the arytenoids to the epiglottic petiole. Anterior hyoid excursion demonstrated partial anterior movement. Epiglottic movement resulted in partial inversion. Laryngeal vestibular closure was complete, as indicated by no air or contrast within the laryngeal vestibule at the height of the swallow. Pharyngeal stripping wave was absent. Pharyngeal contraction could not be determined due to logistical reasons not related to physiologic impairment. Pharyngoesophageal segment opening demonstrated partial distension/partial duration, with partial obstruction of bolus flow. Tongue base retraction allowed a wide column of contrast or air between the retracted tongue base and the posterior pharyngeal wall. Pharyngeal residue was the majority of contrast within or on pharyngeal structures. Esophageal clearance in the upright position could not be assessed due to logistical reasons not related to physiologic impairment. Oral Impairment Score: 10 Pharyngeal Impairment Score: 13 (absence of score, component 13) Esophageal Impairment Score: --- (absence of score, component 17) Laryngeal Penetration and Aspiration: Neither penetration nor aspiration was observed in today's study with Cookie, Honey-thick, [place]-thick, Thin. ASSESSMENT: This exam was conducted by speech language pathologist and radiologist. Patient was seated upright in chair for lateral view only. Patient trialed the following liquid and solid consistencies: -nectar thick liquid barium -honey thick liquid barium -thin liquid barium -pureed solid (applesauce mixed with barium paste) -ground solid (chicken salad mixed with barium paste) -regular solid (Yessenia Doone cookie coated in barium paste) Patient was able to feed herself without difficulty. Patient demonstrates mild to moderate oropharyngeal dysphagia, characterized by impairments in the following components of swallow physiology: ORAL PHASE: -posterior escape of less than half of bolus before pharyngeal swallow trigger -prolonged mastication -slow posterior tongue movement -mild to moderate oral residue when eating solids -delayed pharyngeal swallow trigger when bolus head reached pyriform sinuses PHARYNGEAL PHASE: -minimal to partial laryngeal elevation -partial anterior hyoid movement with partial epiglottic inversion -partial obstruction of flow/ partial distention through PES -reduced tongue base retraction -moderate pharyngeal retention in valleculae, pyriform sinuses, on tongue base, and on posterior pharyngeal wall No aspiration or penetration evident during this exam. Mastication was prolonged, and characterized by piece meal deglutition pattern. Patient chewed solid, swallowed, and continued to chew remainder of bolus. Multiple swallows with each bite to clear entire bolus. Significantly more residue on tongue base and along posterior pharyngeal wall when eating hard solids. This required 3 swallows to clear with patient requesting sip of liquid. Liquid wash effectively cleared residue. Improved clearance when patient trialed ground solid. Visualized pharyngeal retention, but cleared with multiple swallows. Patient swallowed 2-3 times each sip of liquid, which effectively eliminated pharyngeal pooling. Liquid Intake Recommendation: Thin Liquid Intake Strategies: Small Sips No Straws Dietary Recommendations: Grnd/Mech Altered (NDD2) Medication Administration: Crushed with Puree Compensatory Strategies Recommended: Sitting Upright (90 deg) Double Swallow No Straw Small Bites and Sips Alternate Liquids/Solids Rate of Ingestion Change Avoid Specific Foods Supervision during eating and or drinking: Intermittent Supervision Recommended Treatments: Pharyngeal Resistive Exer Recommendation for Speech Therapy: Inpatient Speech Therapy Text Comment: PLAN: Intake Recommendations: Route: PO Diet Grade: Mechanical Soft Liquid Consistencies: Thin Post-Study Functional Oral Intake Scale (FOIS): 5- Total oral intake of multiple consistencies requiring special preparation Patient complains of difficulty swallowing harder solids. She reports increased globus sensation when ?[she] does not chew food enough.? Evidence of pharyngeal retention on this exam. No evidence of aspiration or penetration. Recommend GROUND/MECH ALTERED (NDD2) solids. Food to be served with sauce or gravy when possible. Patient may consider chopped diet (advanced national dysphagia level 3) if she is able to self-select soft food items only. Following precautions apply: -sit upright at 90 degree angle during meals and for at least 30 minutes afterwards -avoid use of straws due to delay in swallow trigger -take small bites and chew food well -alternate each bite of food with sip of liquid -multiple swallow strategy -individual sips of liquid -no consecutive sips or ?chugging? of liquids READING RECOVERY TEACHER will continue to follow patient during inpatient stay to monitor tolerance and provide further support. Suggested Referrals: The patient might benefit from a referral to: Gastroenterology Therapy Recommendations: Therapy will be continued Prognosis for Improvement: The prognosis for the patient to meet nutritional needs by mouth is fair based on degree of impairment. Prison Goals: ? The patient and/or family will participate in further education for swallowing goals. Short Term Goals: ? Diet - The patient will tolerate a mechanical soft diet with thin liquids without signs or symptoms of penetration/aspiration 100% of the time. - The patient will participate in therapeutic PO trials with the READING RECOVERY TEACHER. ? Guidelines - The patient will comply with/recall the following guidelines/strategies 100% of the time with moderate cuing: Bolus Volume Change, Rate of Ingestion Change, Liquid Wash, Additional Swallow(s) per Bolus. ? Education - The patient, family, caregiver, nurse will verbalize/demonstrate understanding of the results of this evaluation, the above recommendations, and the swallowing guidelines. Clinician - Supplemental, Miscellaneous Communication: It is important to note MBSS objective studies are snapshots in time and Patient function might vary with factors such as time of day or concomitant medical conditions. For this reason, the final treatment plan for this patient should rest with their medical care team. Additional recommendations should be considered with the totality of the Patient in mind. Thank for the opportunity to participate in the care of this patient. If you have any questions about the content of this report, please contact the [facility] at [facility]. Education: Education regarding findings from today's study and plans for therapy were provided to Patient only through Verbal Instruction. Frequency/Duration: Date Range for Service Requested: Timeline to reassess: Bushing And Broach Operator Clinician/Clinical Fellow: No Supervisory Statement: N/A Speech Language Pathologist: Senait Nguyen M.A., [facility]-READING RECOVERY TEACHER
--- NOTE | 2020-10-12 12:46 | MHC.SLORD ---
Speech Language Pathology Order Status: GENERAL OFFICE ASSISTANT attempted to see patient this morning but patient was speaking on the phone. GENERAL OFFICE ASSISTANT checked in with RN this morning and briefly reviewed results of MBSS from yesterday. Checked diet order in [facility] and it has been changed to appropriate consistencies. Recommend GROUND/MECH ALTERED (NDD2) solids and THIN liquids. Please refer to full MBSS report from 10/11/20.
[2020-10-12] MEDS: Ertapenem Sodium 1 GM in 0.9 % Sodium Chloride 50 ML IV (13:43)
--- NOTE | 2020-10-12 14:27 | MHC.CM.PN ---
Patient will be discharged home today with [facility] services and [facility] for IV care. Family will provide transport. Patient, family and nurse are aware.
== END 2020-10-12 16:16 | disposition home health service (06) | DRG 871 ==
LOC: HO.ED 10:33 → HO.EDOVER 13:43 → HO.IMC 20:27
PROVIDERS: Internal Medicine; Nurse Practitioner Acute Care; Admitting Provider Family Medicine; Emergency Provider Emergency Medicine; PCP Family Medicine; Visit Provider Family Medicine
DX: A41.9 Sepsis, unspecified organism (principal); J18.1 Lobar pneumonia, unspecified organism; N39.0 Urinary tract infection, site not specified; Z16.12 Extended spectrum beta lactamase (ESBL) resistance; K21.9 Gastro-esophageal reflux disease without esophagitis; F41.9 Anxiety disorder, unspecified; F32.9 Major depressive disorder, single episode, unspecified; E11.9 Type 2 diabetes mellitus without complications; G89.29 Other chronic pain; E03.9 Hypothyroidism, unspecified; B96.20 Unspecified Escherichia coli [E. coli] as the cause of diseases classified elsewhere; Z87.440 Personal history of urinary (tract) infections; Z20.822 Contact with and (suspected) exposure to COVID-19; Z79.82 Long term (current) use of aspirin; Z79.51 Long term (current) use of inhaled steroids; Z79.899 Other long term (current) drug therapy
CPT/HCPCS: 36410; 36415; 70450; 71250; 72125; 74176; 74230; 80048; 80076; 81001; 82550; 82565; 82947; 83605; 83690; 83735; 84484; 85025; 85610; 85730; 87040; 87635; 92610; 92611; 93005; 96365; 96366; 96367; 96368; 99285; J1335; J1642; J1650; J2185

== ENCOUNTER 2020-10-17 16:57 | Emergency (ER) | payer MEDICARE, SELFPAY ==
--- NOTE | ~2020-10-17 | XR_ITS ---
EXAMINATION: XR CHEST CLINICAL INFORMATION: Right upper extremity PICC line assessment COMPARISON: Chest CT 10/09/2020 and chest x-ray 03/21/2020 TECHNIQUE: Frontal view of the chest was obtained. FINDINGS: Cardiac silhouette is normal in size. Atherosclerotic disease of the aortic arch. Lungs are well aerated. There is no lobar consolidation. No pleural effusion or pneumothorax. Mild degenerative changes of the spine. Suspected old posttraumatic changes of the left acromioclavicular joint. No PICC line appreciated. XR/XR chest 1V IMPRESSION: -No acute pulmonary pathology. -No PICC line appreciated.
[2020-10-17 18:07] VITALS: BP 133/72; PULSE 76; RESP 16; TEMP 36.8; O2SAT 100; BMI 18.7
--- NOTE | 2020-10-17 22:17 | ED.GENADULT ---
HPI - General Adult General Chief complaint: General Medical Stated complaint: ?PORT Time Seen by Provider: 10/17/20 22:17 Source: patient and desk manager Mode of arrival: ambulatory History of Present Illness HPI narrative: 69-year-old female currently receiving antibiotics via a right upper extremity midline and presents with some difficulty with infusing the antibiotic at home and comes in for evaluation., chills, shortness of breath, chest pain/palpitations, abdominal pain, redness/swelling at right upper extremity. In addition, she denies any numbness/tingling/weakness of the right upper extremity. Related Data Home Medications Medication Instructions Recorded Confirmed ascorbic acid (vitamin C) [Vitamin 500 mg PO BID 07/17/20 10/09/20 C] aspirin 81 mg PO DAILY 07/17/20 10/09/20 ferrous sulfate [Iron (ferrous 325 mg PO TID 07/17/20 10/09/20 sulfate)] topiramate 50 mg tablet 50 mg PO BEDTIME 07/23/20 10/09/20 cyanocobalamin (vitamin B-12) 1,000 mcg SUBLINGUAL DAILY 08/10/20 10/09/20 1,000 mcg sublingual tablet fluticasone 500 mcg-salmeterol 50 1 inh INHALATION BID 08/10/20 10/09/20 mcg/dose blistr powdr for inhalation montelukast 10 mg tablet 10 mg PO BEDTIME 08/10/20 10/09/20 venlafaxine 150 mg 150 mg PO DAILY 08/10/20 10/09/20 capsule,extended release 24 hr zolpidem 10 mg tablet 10 mg PO BEDTIME 08/10/20 10/09/20 blood sugar diagnostic #10 ea 09/12/20 calcium citrate 200 mg 2 tab PO BID 09/12/20 10/09/20 calcium-vitamin D3 6.25 mcg (250 unit) tablet clonazepam 1 mg tablet 1 mg PO TID PRN 09/12/20 10/09/20 dulaglutide 0.75 mg/0.5 mL 0.75 mg SUBCUT QWEEK 09/12/20 10/09/20 subcutaneous pen injector folic acid 1 mg tablet 1 mg PO DAILY 09/12/20 10/09/20 gabapentin 400 mg capsule 400 mg PO TID 09/12/20 10/09/20 lancets 33 gauge #100 ea 09/12/20 metformin 500 mg tablet,extended 500 mg PO BID 09/12/20 10/09/20 release 24 hr multivitamin-ferrous 1 tab PO DAILY 09/12/20 10/09/20 fumarate-folic acid 18 mg-400 mcg tablet sennosides 8.6 mg tablet 17.2 mg PO BEDTIME PRN 09/12/20 10/09/20 tiotropium bromide 1.25 2 puff PO DAILY 09/12/20 10/09/20 mcg/actuation mist for inhalation venlafaxine 75 mg capsule,extended 75 mg PO DAILY 09/12/20 10/09/20 release 24 hr Creon 1 cap PO QIDWMHS 10/09/20 10/09/20 metoclopramide HCl [Reglan] 10 mg PO TIDAC 10/09/20 10/09/20 oxycodone 5 mg PO Q6H PRN 10/09/20 10/09/20 estradiol 1 g VAGINAL 3XW 10/11/20 10/11/20 Previous Rx's Medication Instructions Recorded Tirosint 112 mcg capsule 112 mcg PO DAILY 30 Days #30 cap NS 07/23/20 cholecalciferol (vitamin D3) 50 50 mcg PO DAILY 30 Days #30 cap 07/23/20 mcg (2,000 unit) capsule omeprazole 40 mg capsule,delayed 40 mg PO BID 30 Days #60 cap 08/10/20 release simethicone 180 mg capsule 180 mg PO QID 30 Days #120 cap 08/10/20 tramadol 50 mg tablet 50 mg PO Q6H #120 tab 10/05/20 doxycycline hyclate 100 mg PO BID 2 Days #4 cap 10/12/20 ertapenem 1 g IV DAILY 11 Days ea 10/12/20 methenamine hippurate 1 g PO DAILY 30 Days #30 tab 10/12/20 Allergies Allergy/AdvReac Type Severity Reaction Status Date / Time No Known Allergies Allergy Verified 10/05/20 08:34 [No Known Allergies*] Review of Systems Review of Systems: Pertinent positives and negatives as stated in HPI 10 point review of systems otherwise negative. [facility] Past Medical History Source: nursing notes reviewed Medical History B12 deficiency Cystitis Dysuria Hypothyroidism Iron deficiency anemia Osteoporosis Pneumonia Recurrent UTI (urinary tract infection) Vitamin D deficiency Surgical History History of arthroscopy of left shoulder History of esophagogastroduodenoscopy (EGD) Hx of colonoscopy Family History Family History Father No problems noted. Mother Heart attack Diabetes mellitus CVD (cardiovascular disease) Arthritis of knee Stomach cancer Sister COVID-19 Social History Social History Household Members: Spouse Housing: House Alcohol intake: current Alcohol intake frequency: does not drink Smoking Status: Never smoker Advance Directives: No service: No Physical Exam Vital Signs: Vital Signs: Last Vital Signs Temp 98.3 F 10/17/20 18:07 Pulse 76 10/17/20 18:07 Resp 16 10/17/20 18:07 BP 133/72 10/17/20 18:07 Pulse Ox 100 10/17/20 18:07 Body Mass Index 18.7 VITAL SIGNS: Reviewed. GENERAL: Well developed, well nourished, in no acute distress. HEAD: Normocephalic/atraumatic OROPHARYNX: no oral lesions noted, posterior pharynx clear NECK: Supple, no adenopathy LUNGS: Normal breath sounds. No adventitious sounds or accessory muscle use. SpO2<100> CARDIOVASCULAR: Regular rate and rhythm without noted murmurs ABDOMEN: Soft, non-tender, non-distended with bowel sounds. RIGHT UPPER EXTREMITY: No erythema/swelling/induration noted at the site, neurovascularly intact distal, no cords palpated SKIN: Inspection of the skin reveals no rashes NEUROLOGIC: Alert and oriented x 4. Course Course Course Narrative: 69-year-old female with history and clinical presentation concerning for possible clogged midline, however nursing staff was able to successfully flush the line. Decision was made to administer patient is scheduled dose of ertapenem for the day here in the ER and instructed to then follow up outpatient as scheduled with the visiting nurse tomorrow morning. On re-evaluation and review of x-ray there are no acute findings, patient received infusion of antibiotics without complications and will be discharged home in stable condition. Discharge Plan Discharge Clinical Impression: Malfunction of peripheral inserted central catheter Patient Disposition: Home, Self-Care Additional Instructions: Resume all home medication. Return to the emergency department for any acute worsening of symptoms. Prescriptions: No Action levothyroxine [Tirosint] 112 mcg capsule 112 mcg PO DAILY 30 Days Qty: 30 RF: 6 cholecalciferol (vitamin D3) 50 mcg (2,000 unit) capsule 50 mcg PO DAILY 30 Days Qty: 30 RF: 6 tramadol 50 mg tablet 50 mg PO Q6H Qty: 120 RF: 5 aspirin 81 mg Tablet,Delayed Release (Dr/Ec) 81 mg PO DAILY RF: 0 ascorbic acid (vitamin C) [Vitamin C] 500 mg Tablet 500 mg PO BID RF: 0 ferrous sulfate [Iron (ferrous sulfate)] 325 mg (65 mg iron) Tablet 325 mg PO TID RF: 0 metoclopramide HCl [Reglan] 10 mg tablet 10 mg PO TIDAC RF: 0 Creon 24,000-76,000 -120,000 unit capsule,delayed release(DR/EC) 1 cap PO QIDWMHS RF: 0 oxycodone 5 mg tablet 5 mg PO Q6H PRN (Reason: Pain, Severe) RF: 0 estradiol 0.01 % (0.1 mg/gram) cream 1 g vaginal 3XW RF: 0 ertapenem 1 gram recon soln 1 g IV DAILY 11 Days RF: 0 methenamine hippurate 1 gram tablet 1 g PO DAILY 30 Days Qty: 30 RF: 0 doxycycline hyclate 100 mg capsule 100 mg PO BID 2 Days Qty: 4 RF: 0 clonazepam 1 mg tablet 1 mg PO TID PRN (Reason: Anxiety) RF: 0 dulaglutide 0.75 mg/0.5 mL pen injector 0.75 mg subcut QWEEK RF: 0 tiotropium bromide 1.25 mcg/actuation mist 2 puff PO DAILY RF: 0 gabapentin 400 mg capsule 400 mg PO TID RF: 0 venlafaxine 75 mg capsule,extended release 24hr 75 mg PO DAILY RF: 0 sennosides 8.6 mg tablet 17.2 mg PO BEDTIME PRN (Reason: constipation) RF: 0 (DME) lancets 33 gauge misc See Rx Instructions ea Not Applicable BID Qty: 100 RF: 0 (DME) blood sugar diagnostic Strip See Rx Instructions strip Not Applicable BID Qty: 10 RF: 0 calcium citrate-vitamin D3 200 mg-6.25 mcg (250 unit) tablet 2 tab PO BID RF: 0 vxjwlejemxdj-gfjf-vpekx acid 18-400 mg-mcg tablet 1 tab PO DAILY RF: 0 metformin 500 mg tablet extended release 24 hr 500 mg PO BID RF: 0 folic acid 1 mg tablet 1 mg PO DAILY RF: 0 topiramate 50 mg tablet 50 mg PO BEDTIME RF: 0 montelukast 10 mg tablet 10 mg PO BEDTIME RF: 0 cyanocobalamin (vitamin B-12) 1,000 mcg tablet, sublingual 1,000 mcg sublingual DAILY RF: 0 fluticasone propion-salmeterol 500-50 mcg/dose blister with device 1 inh inhalation BID RF: 0 venlafaxine 150 mg capsule,extended release 24hr 150 mg PO DAILY RF: 0 zolpidem 10 mg tablet 10 mg PO BEDTIME RF: 0 omeprazole 40 mg capsule,delayed release(DR/EC) 40 mg PO BID 30 Days Qty: 60 RF: 4 simethicone 180 mg capsule 180 mg PO QID 30 Days Qty: 120 RF: 3 Referrals: Natalee Rooney MD [Primary Care Provider] - 2 days (Re-evaluation after seen in the ER for malfunctioning midline catheter in the right upper extremity for antibiotics at home. Catheter is working fine.) Print Language: Lao
[2020-10-17] MEDS: Ertapenem Sodium 1 GM in 0.9 % Sodium Chloride 50 ML IV (22:25)
--- NOTE | 2020-10-17 22:56 | PC.NURSE ---
This RN able to flush peripheral IV access with saline flush. IV is patent/functional but positional. No infiltration, pain, discoloration, or other complications noted. Invanz infusing as ordered, with plan to follow up with home nurse tomorrow for new dressing application.
== END 2020-10-18 00:17 | disposition home or self-care (01) ==
PROVIDERS: Emergency Provider Student in an Organized Health Care Education/Training Program; PCP Family Medicine
DX: T82.898A Other specified complication of vascular prosthetic devices, implants and grafts, initial encounter (principal); X58.XXXA Exposure to other specified factors, initial encounter; Z87.440 Personal history of urinary (tract) infections; Z79.2 Long term (current) use of antibiotics; Z79.82 Long term (current) use of aspirin
CPT/HCPCS: 71045; 96365; 99283; 99284; J1335

== ENCOUNTER → 2020-10-18 08:28 | Outpatient (BNVA) | payer MEDICARE, SELFPAY | PROVIDERS: PCP Family Medicine; Visit Provider Urology | DX: N39.0 Urinary tract infection, site not specified (principal) | CPT/HCPCS: 81002; 99212 ==

== ENCOUNTER → 2020-10-29 15:07 | Outpatient (BNVA) | payer MEDICARE, SELFPAY | PROVIDERS: PCP Family Medicine; Visit Provider Internal Medicine | DX: N39.0 Urinary tract infection, site not specified (principal) | CPT/HCPCS: 99212 ==

== ENCOUNTER 2020-11-27 10:29 | Outpatient (REF) | payer MEDICARE, SELFPAY ==
[2020-11-27 14:00] LABS: Glucose Urine UA NEG (NEG); Leukocyte Esterase Urine NEG (NEG); Nitrite Urine NEG (NEG); Specific Gravity - Urine >= 1.030 (1.005-1.025); Urine Blood NEG (NEG); Urine Ketones NEG (NEG); Urine Protein NEG (NEG-TRACE)
[2020-11-27 14:18] LABS: Appearance Urine HAZY; Color Urine YELLOW
[2020-11-27 14:46] LABS: Mucus Urine 3+ /LPF; Squamous Epithelial Cell Urine 1+ /LPF
== END 2020-11-27 10:30 | disposition home or self-care (01) ==
LOC: HO.LAB 10:29
PROVIDERS: PCP Family Medicine; Visit Provider Internal Medicine
DX: N39.0 Urinary tract infection, site not specified (principal)
CPT/HCPCS: 81001; 87086; 99212

== ENCOUNTER 2020-12-03 11:28 | Outpatient (REF) | payer MEDICARE, SELFPAY ==
--- NOTE | ~2020-12-03 | MM_ITS ---
EXAMINATION: MM SCREENING DIGITAL BREAST TOMOSYNTHESIS, BILATERAL CLINICAL INFORMATION: Screening. Asymptomatic. The lifetime risk of breast cancer based on the Tyrer-Cuzick Model is 2%. COMPARISON: Mammography: 09/10/2018, 07/29/2017, 05/07/2016 TECHNIQUE: Digital breast tomosynthesis is performed in both the craniocaudal and mediolateral oblique views along with computer-aided detection (CAD). Synthesized 2D images are generated from the tomosynthesis. FINDINGS: There are scattered areas of fibroglandular density (ACR BI-RADS breast composition Category b). There are no significant masses, abnormal calcifications, or other abnormalities. The axilla and skin contours are unremarkable. MM/MM tomosynthesis screening BI IMPRESSION: No mammographic evidence of malignancy. ASSESSMENT: BI-RADS 1: Negative RECOMMENDATION: Routine annual mammography screening. This patient's information was entered into a reminder system with a target due date for their next mammogram.
== END 2020-12-03 11:29 | disposition home or self-care (01) ==
LOC: HO.MAMMO 11:28
PROVIDERS: Visit Provider Family Medicine
DX: Z12.31 Encounter for screening mammogram for malignant neoplasm of breast (principal)
CPT/HCPCS: 77063; 77067

== ENCOUNTER → 2020-12-25 10:19 | Outpatient (BNVA) | payer MEDICARE, SELFPAY | PROVIDERS: PCP Family Medicine; Visit Provider Internal Medicine | DX: N39.0 Urinary tract infection, site not specified (principal) | CPT/HCPCS: 99212 ==

== ENCOUNTER → 2020-12-27 08:58 | Outpatient (BNVA) | payer MEDICARE, SELFPAY | PROVIDERS: PCP Family Medicine; Visit Provider Nurse Practitioner | DX: Z13.89 Encounter for screening for other disorder (principal) | CPT/HCPCS: Q3014 ==

== ENCOUNTER → 2021-01-10 13:20 | Outpatient (BNVA) | payer MEDICARE, SELFPAY | PROVIDERS: PCP Family Medicine; Visit Provider Nurse Practitioner | DX: R13.10 Dysphagia, unspecified (principal); K59.04 Chronic idiopathic constipation; K21.9 Gastro-esophageal reflux disease without esophagitis; K58.9 Irritable bowel syndrome, unspecified; K31.84 Gastroparesis | CPT/HCPCS: Q3014 ==

== ENCOUNTER → 2021-01-25 09:24 | Outpatient (BNVA) | payer MEDICARE, SELFPAY | PROVIDERS: PCP Family Medicine; Visit Provider Nurse Practitioner | DX: K59.04 Chronic idiopathic constipation (principal); K21.9 Gastro-esophageal reflux disease without esophagitis; K31.84 Gastroparesis; K28.9 Gastrojejunal ulcer, unspecified as acute or chronic, without hemorrhage or perforation; R13.10 Dysphagia, unspecified | CPT/HCPCS: Q3014 ==

== ENCOUNTER 2021-02-13 09:15 | Outpatient (REF) | payer MEDICARE, SELFPAY ==
[2021-02-13 10:21] LABS: MANUAL DIFF FLAG NO
[2021-02-13 10:29] LABS: Basophils Percent Auto 0.8 % (0-2); Eosinophils Absolute Auto 0.1 X10*3/uL (0.0-0.4); Eosinophils Percent Auto 2.3 % (0-4); Hematocrit 35.1 % (37-47); Hemoglobin 10.9 g/dl (12.0-16.0); Imm Gran Abs Auto 0.01 X10*3/uL (0.00-0.03); Imm Gran Pct Auto 0.3 % (0.0-0.4); Lymphocytes Absolute Auto 1.1 X10*3/uL (1.2-4.9); Lymphocytes Percent Auto 31.6 % (20-40); Mean Corpuscular HGB Conc 31.1 g/dl (31.0-35.0); Mean Corpuscular Hemoglobin 27.7 pg (27.0-33.0); Mean Corpuscular Volume 89.3 fL (80-98); Monocytes Absolute Auto 0.4 X10*3/uL (0.1-1.2); Monocytes Percent Auto 9.9 % (2-11); Neutrophils Percent Auto 55.1 % (45-73); Platelet Count 330 X10*3/uL (160-400); Red Blood Count 3.93 X10*6/uL (4.20-5.50); Red Cell Distribution Width 16.3 % (11.0-16.0); White Blood Count 3.5 X10*3/uL (4.8-10.8)
[2021-02-13 11:37] LABS: Appearance Urine CLEAR; Color Urine YELLOW; Glucose Urine UA NEG (NEG); Leukocyte Esterase Urine NEG (NEG); Nitrite Urine NEG (NEG); PH 6.5 (5.0-8.0); Specific Gravity - Urine 1.015 (1.005-1.025); Urine Blood NEG (NEG); Urine Ketones NEG (NEG); Urine Protein NEG (NEG-TRACE)
[2021-02-13 11:40] LABS: Vitamin D 25-OH Total 60.7 ng/mL (>30)
[2021-02-13 11:41] LABS: Albumin Level 4.1 g/dL (3.5-5.0); Anion Gap 12 (12-20); Blood Urea Nitrogen 11 mg/dL (9-16); Carbon Dioxide 26 mmol/L (22-29); Chloride 108 mmol/L (96-108); Estimated Glomerular Filt Rate > 60; Iron 52 mcg/dL (30-160); Magnesium 2.5 mg/dL (1.6-2.6); Percent Iron Saturation 13 % (15-50); Phosphorus 3.9 mg/dL (2.7-4.5); Potassium 4.9 mmol/L (3.3-5.1); Sodium 141 mmol/L (135-145); Total Iron Binding Capacity 416 mcg/dL (228-428); Unsaturated Iron Binding 364 ug/dL
[2021-02-13 11:59] LABS: Creatinine Urine 91.67 mg/dL; Microalbum/Creatinine Ratio Ur 5.4 ug/mg cr; Protein/Creatinine Ratio, Ur 0.09 (<0.2); Total Protein Urine Random 8 mg/dL (<12)
[2021-02-14 16:16] LABS: Calcium (PTHI) 9.7 mg/dL (8.6-10.4); PTHI 33 pg/mL (14-64)
== END 2021-02-13 09:16 | disposition home or self-care (01) ==
LOC: HO.LAB 09:15
PROVIDERS: PCP Family Medicine; Visit Provider Internal Medicine Nephrology
DX: I12.9 Hypertensive chronic kidney disease with stage 1 through stage 4 chronic kidney disease, or unspecified chronic kidney disease (principal); N18.2 Chronic kidney disease, stage 2 (mild); E11.22 Type 2 diabetes mellitus with diabetic chronic kidney disease; E11.21 Type 2 diabetes mellitus with diabetic nephropathy
CPT/HCPCS: 36415; 80051; 81003; 82040; 82043; 82306; 82310; 82565; 83540; 83735; 83970; 84100; 84156; 84520; 85025; 87086

== ENCOUNTER → 2021-03-08 15:18 | Outpatient (BNVA) | payer MEDICARE, SELFPAY | PROVIDERS: PCP Family Medicine; Visit Provider Nurse Practitioner | DX: Z13.89 Encounter for screening for other disorder (principal) | CPT/HCPCS: Q3014 ==

== ENCOUNTER 2021-03-20 11:17 | Emergency (ER) | payer MEDICARE, SELFPAY ==
[2021-03-20] VITALS (8 sets, daily range): BP systolic 127–178; BP diastolic 54–87; PULSE 64–78; RESP 14–16; TEMP 36.1–37.1; O2SAT 96–100; BMI 20.7
--- NOTE | ~2021-03-20 | XR_ITS ---
EXAMINATION: XR ELBOW, RIGHT CLINICAL INFORMATION: Fall. Right elbow pain. COMPARISON: None TECHNIQUE: AP, lateral, and oblique views of the right elbow. FINDINGS: The bones and soft tissues are normal. No fracture or joint effusion. Alignment is anatomic. Joint spaces are maintained. XR/XR elbow RT min 3V IMPRESSION: Unremarkable examination.
--- NOTE | ~2021-03-20 | CT_ITS ---
EXAMINATION: CT HEAD WITHOUT CONTRAST CT CERVICAL SPINE WITHOUT CONTRAST CLINICAL INFORMATION: Dizziness. Falls. Weakness. COMPARISON: CT head and cervical spine dated 10/09/2020. TECHNIQUE: Contiguous axial imaging was performed from the skull base to vertex without intravenous administration of contrast. Contiguous axial CT images of the cervical spine were obtained without contrast. Sagittal and coronal reformats were provided and reviewed. This CT examination was performed using dose optimization techniques as appropriate, variously including the following: *Automated exposure control *Adjustment of mA and/or kV according to patient size (this includes techniques or standardized protocols for targeted exams where dose is matched to indication/reason for exam; i.e. extremities or head) *Use of iterative reconstruction technique DLP: 760 mGy-cm FINDINGS: HEAD: There is no evidence of acute intracranial hemorrhage or territorial infarction. No abnormal mass effect or midline shift is seen. Davis to white matter differentiation is well preserved. No extra-axial fluid collections are identified. The ventricles are normal in size. There is no abnormal attenuation within the brain parenchyma. The osseous structures and soft tissues are normal. The mastoid air cells and visualized portions of the paranasal sinuses are well aerated. CERVICAL SPINE: Normal vertebral body alignment. The normal cervical lordosis is maintained. No acute fracture or subluxation. Anterior stabilization hardware with fusion of the vertebral bodies redemonstrated at C3-C4. No hardware fracture or perihardware lucency to suggest loosening or infection. Prominent loss of intervertebral disc height with endplate osteophytes at C5-C6, unchanged. Mild multilevel bilateral neural foraminal stenosis is unchanged. No lytic or blastic osseous lesion. Unremarkable prevertebral soft tissues. No abnormal soft tissue mass or fluid collection. Thyroid is atrophic. Visualized lung apices are clear. Mild bilateral neural foraminal stenosis at C5-C6, unchanged. CT/CT cervical spine wo con IMPRESSION: HEAD: No acute intracranial hemorrhage or mass effect. CERVICAL SPINE: No acute fracture or subluxation. Anterior stabilization hardware at C3-C4 without evidence of hardware complication. Degenerative disc disease with bilateral facet arthropathy and neural foraminal stenosis at C5-C6, unchanged.
--- NOTE | 2021-03-20 11:34 | ECG_ITS ---
Test Reason : DIZINESS Blood Pressure : / mmHG Vent. Rate : 065 BPM Atrial Rate : 065 BPM P-R Int : 146 ms QRS Dur : 080 ms QT Int : 412 ms P-R-T Axes : 060 022 038 degrees QTc Int : 428 ms Normal sinus rhythm Normal ECG When compared with ECG of 09-OCT-2020 08:14, Vent. rate has decreased BY 37 BPM Non-specific change in ST segment in Anterior leads Nonspecific T wave abnormality, improved in Inferior leads Referred By: Pauly Mehta Electronically Signed By:JARRED RICH
--- NOTE | 2021-03-20 11:35 | ED_ITS ---
HPI - Dizziness General Chief Complaint: Dizziness Stated Complaint: NAUSEA AND VOMITING Time Seen by Provider: 03/20/21 11:31 Source: patient Mode of arrival: ambulatory Limitations: no limitations History of Present Illness HPI Narrative: 70 y/o female with history of recurring UTIs (hx ESBL), history of aspiration pneumonia, history of dysphagia, hypothyroidism, anemia, irritable bowel syndrome, sciatica who presents to the ER from her primary care doctor's office via ambulance with ongoing dizziness for the last 8 days as well as a fall at home. Patient reports for the last 8 days she has felt like the room is spinning intermittently. She feels like she cannot get her balance. She does not recall what she was doing when her dizziness started. She fell a few days ago onto her right elbow and has some pain in her elbow and neck. She has had a very poor appetite and not eating and drinking very well. She feels generally weak, no weakness, numbness, tingling in any of her extremities. She has had no fever, chills, nausea, vomiting, abdominal pain, shortness of breath, urinary symptoms. MD elicited complaint: dizziness Onset (ago): day(s) (8) Timing: gradual onset Severity: severe Description: room spinning History of similar symptoms: No Exacerbating factors: movement/ambulation and change in body position Relieving factors: remaining still Associated symptoms: malaise and weakness Related Data Home Medications Medication Instructions Recorded Confirmed ascorbic acid (vitamin C) 500 mg 500 mg PO BID 07/17/20 03/20/21 tablet (Vitamin C) aspirin 81 mg tablet,delayed 81 mg PO DAILY 07/17/20 03/20/21 release cyanocobalamin (vitamin B-12) 1,000 mcg SUBLINGUAL DAILY 08/10/20 03/20/21 1,000 mcg sublingual tablet fluticasone 500 mcg-salmeterol 50 1 inh INHALATION BID 08/10/20 03/20/21 mcg/dose blistr powdr for inhalation montelukast 10 mg tablet 10 mg PO BEDTIME 08/10/20 03/20/21 venlafaxine 150 mg 150 mg PO DAILY 08/10/20 03/20/21 capsule,extended release 24 hr blood sugar diagnostic #10 ea 09/12/20 03/20/21 clonazepam 1 mg tablet 1 mg PO TID PRN 09/12/20 03/20/21 dulaglutide 0.75 mg/0.5 mL 0.75 mg SUBCUT QWEEK 09/12/20 03/20/21 subcutaneous pen injector folic acid 1 mg tablet 1 mg PO DAILY 09/12/20 03/20/21 gabapentin 400 mg capsule 400 mg PO TID 09/12/20 03/20/21 lancets 33 gauge #100 ea 09/12/20 03/20/21 metformin 500 mg tablet,extended 500 mg PO BID 09/12/20 03/20/21 release 24 hr venlafaxine 75 mg capsule,extended 75 mg PO DAILY 09/12/20 03/20/21 release 24 hr estradiol 1 g VAGINAL 3XW 10/11/20 03/20/21 plecanatide 3 mg tablet (Trulance) 1 tab PO QAM 03/20/21 03/20/21 zolpidem 10 mg tablet 1 tab PO BEDTIME 03/20/21 03/20/21 Previous Rx's Medication Instructions Recorded cholecalciferol (vitamin D3) 50 50 mcg PO DAILY 30 Days #30 cap 07/23/20 mcg (2,000 unit) capsule tramadol 50 mg tablet 50 mg PO Q6H #120 tab 10/05/20 methenamine hippurate 1 gram tablet 1 g PO DAILY 90 Days #90 tab 10/18/20 [id number] 1 cap PO QID #120 cap 12/05/20 24,000-76,000-120,000 unit capsule,delayed rel (Creon) plecanatide 3 mg tablet (Trulance) 3 mg PO DAILY 30 Days #30 tab 12/27/20 omeprazole 40 mg capsule,delayed 40 mg PO BID 30 Days #60 cap 01/21/21 release famotidine 20 mg tablet (Pepcid) 20 mg PO BID 30 Days #60 tab 01/25/21 Tirosint 112 mcg capsule 112 mcg PO DAILY 30 Days #30 cap NS 02/19/21 (levothyroxine) sennosides 8.6 mg tablet (senna) 17.2 mg PO BEDTIME PRN #60 tab 02/19/21 simethicone 180 mg capsule 180 mg PO QID 30 Days #120 cap 02/19/21 dicyclomine 20 mg tablet 40 mg PO QIDACHS 30 Days #240 tab 03/08/21 Allergies Allergy/AdvReac Type Severity Reaction Status Date / Time No Known Allergies Allergy Verified 01/25/21 09:25 [No Known Allergies*] Review of Systems Review of Systems: Constitutional: No Fever, No Chills ENT/Mouth: No sore throat, No Rhinorrhea, No Swallowing Difficulty Eyes: No Eye Pain, No Swelling, No Redness Cardiovascular: No Chest Pain, No SOB, No Orthopnea, No Edema Respiratory: No Cough, No Sputum, No Wheezing, No dyspnea Gastrointestinal: No Nausea, No Vomiting, No Diarrhea, No abdominal Pain, No Hematochezia, No Melena Genitourinary: No Dysuria, No Urinary Frequency, No Hematuria Musculoskeletal: No joint pain, No Myalgias Skin: No Skin Lesions, No rash Neuro: + Weakness, No Numbness, + Dizziness, No Headache Psych: No Anxiety/Panic, + Depression Heme/Lymph: No Bruising, No Lymphadenopathy Endocrine: No Polyuria, No Polydipsia PMFSH Past Medical History Attestation statement: The following information was validated with the patient. Medical History B12 deficiency Cystitis Dysuria Hypothyroidism Iron deficiency anemia Osteoporosis Pneumonia Recurrent UTI (urinary tract infection) Vitamin D deficiency Surgical History History of arthroscopy of left shoulder History of esophagogastroduodenoscopy (EGD) Hx of colonoscopy Family History Family History Father No problems noted. Mother Heart attack Diabetes mellitus CVD (cardiovascular disease) Arthritis of knee Stomach cancer Sister COVID-19 Social History Social History Household Members: Spouse Housing: House Unable to assess alcohol history related to: Unknown Alcohol intake: current Alcohol intake frequency: does not drink Advance Directives: No service: No Physical Exam Vital Signs: Vital Signs: Last Vital Signs Temp 97.8 F 03/20/21 15:33 Pulse 78 03/20/21 17:03 Resp 16 03/20/21 15:33 BP 137/64 03/20/21 17:03 Pulse Ox 99 03/20/21 15:33 Body Mass Index 20.7 Appearance: Alert. Oriented X3. No acute distress. Frail elderly female, appears older than stated age. Head: Normocephalic, atraumatic. Eyes: Pupils equal, round and reactive to light. EOMI, no nystagmus. ENT: Pharynx normal. Neck: Normal inspection. Neck supple. CVS: Normal heart rate and rhythm. Pulses normal. Respiratory: No respiratory distress. Breath sounds normal. Abdomen: Soft and nontender. +BS x4 Skin: Skin warm and dry. Normal skin color. Normal skin turgor. No rashes. Extremities: No lower extremity edema. Atraumatic x4. Neuro: Oriented X 3. Bilateral lower extremity weakness, she is able to lift her legs slightly off the bed but not against resistance. She is able to perform heel to ahn and finger to nose tasks bilaterally. Equal and symmetrical upper extremity strength. No sensory deficits. Course Course Course Narrative: 70-year-old female with multiple medical problems presents to the ER with 8 days of dizziness, generalized weakness, poor p.o. intake. POC arrival to the ER is 77. The only thing she had today was coffee, no breakfast or lunch. Will check basic labs, CT head, EKG, orthostatics vital signs. She has a nonfocal neuro exam but complains of vertigo type dizziness. Will give her IV fluids and a dose of meclizine and reassess. Reevaluation(s) Reevaluation #1: Labs showing mild hyperkalemia with potassium of 5.5, her last potassium was 5.4 less than a month ago. She has no peaked T-waves or EKG changes. Her H&H is at her baseline. Her troponin is negative. Show no acute injury or strokes. She has hardware in her neck without hardware complication. X-ray is normal. Her orthostatic vital signs are positive. Will give 2nd L of IV fluids and reassess. She may require admission to the hospital. Reevaluation #2: After 2nd L of IV fluids patient's orthostatic vital signs are negative. She denies dizziness after dose of meclizine. Doubt posterior circulation stroke. She continues to feel generally weak but is nonfocal on exam. Her fingersticks are 70s to 80s. Given a sandwich. Given her ongoing generalized weakness and fall at home will have Physical therapy evaluate her for possible placement to short-term rehab. Consult for PT and Case Management have been placed. Patient updated on plan of care. Physician observation started at 5:15pm. Patient placed in physician observation because patient is awaiting PT evaluation for the possible need short term rehab. At the time observation was started patient's vital signs were stable. Patient is alert and oriented. Neuro exam is non-focal. CV: RRR and lungs are clear. Will continue to monitor. MDM - Dizziness Differential Diagnosis Differential diagnosis: Likely adverse reaction to drug, benign paroxysmal positional vertigo, vertebral basilar insufficiency and cerebrovascular accident Medical Records Attestation: I reviewed the patient's medical records. Lab Data Attestation: I reviewed the patient's lab results. Result diagrams: 03/20/21 11:46 03/20/21 11:46 Labs: Lab Results 03/20/21 03/20/21 03/20/21 Range/Units 11:44 11:46 11:46 WBC 4.7 L (4.8-10.8) X10*3/uL RBC 3.86 L (4.20-5.50) X10*6/uL Hgb 10.8 L (12.0-16.0) g/dl Hct 34.5 L (37-47) % MCV 89.4 (80-98) fL MCH 28.0 (27.0-33.0) pg MCHC 31.3 (31.0-35.0) g/dl RDW 15.9 (11.0-16.0) % Plt Count 335 (160-400) X10*3/uL MPV 10.1 (9.4-12.3) fL Immature Gran % (Auto) 0.2 (0.0-0.4) % Neut % (Auto) 47.9 (45-73) % Lymph % (Auto) 37.7 (20-40) % Placer % (Auto) 12.1 H (2-11) % Eos % (Auto) 1.7 (0-4) % Baso % (Auto) 0.4 (0-2) % Lymph # (Auto) 1.8 (1.2-4.9) X10*3/uL Placer # (Auto) 0.6 (0.1-1.2) X10*3/uL Eos # (Auto) 0.1 (0.0-0.4) X10*3/uL Baso # (Auto) 0.0 (0.0-0.2) X10*3/uL Abs Immat Gran (auto) 0.01 (0.00-0.03) X10*3/uL Absolute Neuts (auto) 2.3 (2.0-8.3) X10*3/uL Absolute Nucleated RBC 0.000 (0.0-0.012) X10*3/uL Nucleated RBC % (auto) 0.0 (0.0-0.2) /100WBC Sodium 139 (135-145) mmol/L Potassium 5.5 H (3.3-5.1) mmol/L Chloride 107 (96-108) mmol/L Carbon Dioxide 27 (22-29) mmol/L Anion Gap 11 L (12-20) BUN 13 (9-16) mg/dL Creatinine 0.84 (0.5-1.4) mg/dL Estim Creat Clear Calc 52.3 Estimated GFR > 60 POC Glucose 77 (60-115) mg/dL Random Glucose 86 (60-115) mg/dL Calcium 9.5 (8.4-10.2) mg/dL Magnesium 2.5 (1.6-2.6) mg/dL Total Bilirubin 0.5 (0.0-1.0) mg/dL Direct Bilirubin 0.2 (0.0-0.5) mg/dL AST 35 H D (5-31) U/L ALT 25 (0-31) U/L Alkaline Phosphatase 64 (39-117) U/L Troponin I High Sens (<3.5-17.0) ng/L Total Protein 6.9 (6.5-8.0) g/dL Albumin 4.2 (3.5-5.0) g/dL Urine Color Urine Appearance Urine pH (5.0-8.0) Ur Specific [place] (1.005-1.025) Urine Protein (NEG-TRACE) MG/DL Urine Glucose (UA) (NEG) MG/DL Urine Ketones (NEG) MG/DL Urine Blood (NEG) Urine Nitrite (NEG) Ur Leukocyte Esterase (NEG) Urine Opiates Screen (Not Detect) Urine Fentanyl Screen (Not Detect) Ur Barbiturates Screen (Not Detect) Ur Phencyclidine Scrn (Not Detect) Ur Amphetamines Screen (Not Detect) U Benzodiazepines Scrn (Not Detect) Urine Cocaine Screen (Not Detect) U Marijuana (THC) Screen (Not Detect) COVID-19 (MARLY) (Negative) COVID-19 Clin Com 03/20/21 03/20/21 03/20/21 Range/Units 11:46 11:46 13:09 WBC (4.8-10.8) X10*3/uL RBC (4.20-5.50) X10*6/uL Hgb (12.0-16.0) g/dl Hct (37-47) % MCV (80-98) fL MCH (27.0-33.0) pg MCHC (31.0-35.0) g/dl RDW (11.0-16.0) % Plt Count (160-400) X10*3/uL MPV (9.4-12.3) fL Immature Gran % (Auto) (0.0-0.4) % Neut % (Auto) (45-73) % Lymph % (Auto) (20-40) % Placer % (Auto) (2-11) % Eos % (Auto) (0-4) % Baso % (Auto) (0-2) % Lymph # (Auto) (1.2-4.9) X10*3/uL Placer # (Auto) (0.1-1.2) X10*3/uL Eos # (Auto) (0.0-0.4) X10*3/uL Baso # (Auto) (0.0-0.2) X10*3/uL Abs Immat Gran (auto) (0.00-0.03) X10*3/uL Absolute Neuts (auto) (2.0-8.3) X10*3/uL Absolute Nucleated RBC (0.0-0.012) X10*3/uL Nucleated RBC % (auto) (0.0-0.2) /100WBC Sodium (135-145) mmol/L Potassium (3.3-5.1) mmol/L Chloride (96-108) mmol/L Carbon Dioxide (22-29) mmol/L Anion Gap (12-20) BUN (9-16) mg/dL Creatinine (0.5-1.4) mg/dL Estim Creat Clear Calc Estimated GFR POC Glucose 71 (60-115) mg/dL Random Glucose (60-115) mg/dL Calcium (8.4-10.2) mg/dL Magnesium (1.6-2.6) mg/dL Total Bilirubin (0.0-1.0) mg/dL Direct Bilirubin (0.0-0.5) mg/dL AST (5-31) U/L ALT (0-31) U/L Alkaline Phosphatase (39-117) U/L Troponin I High Sens < 3.5 (<3.5-17.0) ng/L Total Protein (6.5-8.0) g/dL Albumin (3.5-5.0) g/dL Urine Color Urine Appearance Urine pH (5.0-8.0) Ur Specific [place] (1.005-1.025) Urine Protein (NEG-TRACE) MG/DL Urine Glucose (UA) (NEG) MG/DL Urine Ketones (NEG) MG/DL Urine Blood (NEG) Urine Nitrite (NEG) Ur Leukocyte Esterase (NEG) Urine Opiates Screen (Not Detect) Urine Fentanyl Screen (Not Detect) Ur Barbiturates Screen (Not Detect) Ur Phencyclidine Scrn (Not Detect) Ur Amphetamines Screen (Not Detect) U Benzodiazepines Scrn (Not Detect) Urine Cocaine Screen (Not Detect) U Marijuana (THC) Screen (Not Detect) COVID-19 (MARLY) Negative (Negative) COVID-19 Clin Com See Note 03/20/21 03/20/21 03/20/21 Range/Units 13:12 13:12 15:42 WBC (4.8-10.8) X10*3/uL RBC (4.20-5.50) X10*6/uL Hgb (12.0-16.0) g/dl Hct (37-47) % MCV (80-98) fL MCH (27.0-33.0) pg MCHC (31.0-35.0) g/dl RDW (11.0-16.0) % Plt Count (160-400) X10*3/uL MPV (9.4-12.3) fL Immature Gran % (Auto) (0.0-0.4) % Neut % (Auto) (45-73) % Lymph % (Auto) (20-40) % Placer % (Auto) (2-11) % Eos % (Auto) (0-4) % Baso % (Auto) (0-2) % Lymph # (Auto) (1.2-4.9) X10*3/uL Placer # (Auto) (0.1-1.2) X10*3/uL Eos # (Auto) (0.0-0.4) X10*3/uL Baso # (Auto) (0.0-0.2) X10*3/uL Abs Immat Gran (auto) (0.00-0.03) X10*3/uL Absolute Neuts (auto) (2.0-8.3) X10*3/uL Absolute Nucleated RBC (0.0-0.012) X10*3/uL Nucleated RBC % (auto) (0.0-0.2) /100WBC Sodium (135-145) mmol/L Potassium (3.3-5.1) mmol/L Chloride (96-108) mmol/L Carbon Dioxide (22-29) mmol/L Anion Gap (12-20) BUN (9-16) mg/dL Creatinine (0.5-1.4) mg/dL Estim Creat Clear Calc Estimated GFR POC Glucose 86 (60-115) mg/dL Random Glucose (60-115) mg/dL Calcium (8.4-10.2) mg/dL Magnesium (1.6-2.6) mg/dL Total Bilirubin (0.0-1.0) mg/dL Direct Bilirubin (0.0-0.5) mg/dL AST (5-31) U/L ALT (0-31) U/L Alkaline Phosphatase (39-117) U/L Troponin I High Sens (<3.5-17.0) ng/L Total Protein (6.5-8.0) g/dL Albumin (3.5-5.0) g/dL Urine Color YELLOW Urine Appearance CLEAR Urine pH 6.0 (5.0-8.0) Ur Specific [place] <= 1.005 (1.005-1.025) Urine Protein NEG (NEG-TRACE) MG/DL Urine Glucose (UA) NEG (NEG) MG/DL Urine Ketones NEG (NEG) MG/DL Urine Blood NEG (NEG) Urine Nitrite NEG (NEG) Ur Leukocyte Esterase NEG (NEG) Urine Opiates Screen Not Detected (Not Detect) Urine Fentanyl Screen Not Detected (Not Detect) Ur Barbiturates Screen Not Detected (Not Detect) Ur Phencyclidine Scrn Not Detected (Not Detect) Ur Amphetamines Screen Not Detected (Not Detect) U Benzodiazepines Scrn Not Detected (Not Detect) Urine Cocaine Screen Not Detected (Not Detect) U Marijuana (THC) Screen Not Detected (Not Detect) COVID-19 (MARLY) (Negative) COVID-19 Clin Com ECG Data Attestation: I personally reviewed and interpreted this ECG as follows: ECG interpretation date: 03/20/21 ECG interpretation time: 15:16 Prior ECG tracings: available for review Interpretation: Normal sinus rhythm, heart rate 65 beats per minute, nonspecific ST changes in the anterior leads, t-wave inversion in lead V1. Critical Care Time Critical Care Time Critical Care Time: Yes Total Critical Care Time: 38 Attestation: I have personally provided critical care time exclusive of time spent on separately billable procedures. Time includes review of lab data, radiology results, discussion with consultants, and monitoring for potential decompensation. Intervention performed as documented. Discharge Plan Discharge Clinical Impression: Dizziness, Weakness, Poor fluid intake Prescriptions: No Action cholecalciferol (vitamin D3) 50 mcg (2,000 unit) capsule 50 mcg PO DAILY 30 Days Qty: 30 RF: 6 tramadol 50 mg tablet 50 mg PO Q6H Qty: 120 RF: 5 [id number] [Creon] 24,000-76,000 -120,000 unit capsule,delayed release(DR/EC) 1 cap PO QID Qty: 120 RF: 2 omeprazole 40 mg capsule,delayed release(DR/EC) 40 mg PO BID 30 Days Qty: 60 RF: 4 levothyroxine [Tirosint] 112 mcg capsule 112 mcg PO DAILY 30 Days Qty: 30 RF: 1 simethicone 180 mg capsule 180 mg PO QID 30 Days Qty: 120 RF: 2 sennosides [senna] 8.6 mg tablet 17.2 mg PO BEDTIME PRN (Reason: for constipation) Qty: 60 RF: 2 aspirin 81 mg Tablet,Delayed Release (Dr/Ec) 81 mg PO DAILY RF: 0 ascorbic acid (vitamin C) [Vitamin C] 500 mg Tablet 500 mg PO BID RF: 0 estradiol 0.01 % (0.1 mg/gram) cream 1 g vaginal 3XW RF: 0 zolpidem 10 mg tablet 1 tab PO BEDTIME RF: 0 Trulance 3 mg tablet 1 tab PO QAM RF: 0 clonazepam 1 mg tablet 1 mg PO TID PRN (Reason: Anxiety) RF: 0 dulaglutide 0.75 mg/0.5 mL pen injector 0.75 mg subcut QWEEK RF: 0 gabapentin 400 mg capsule 400 mg PO TID RF: 0 venlafaxine 75 mg capsule,extended release 24hr 75 mg PO DAILY RF: 0 (DME) lancets 33 gauge misc See Rx Instructions ea Not Applicable BID Qty: 100 RF: 0 (DME) blood sugar diagnostic Strip See Rx Instructions strip Not Applicable BID Qty: 10 RF: 0 metformin 500 mg tablet extended release 24 hr 500 mg PO BID RF: 0 folic acid 1 mg tablet 1 mg PO DAILY RF: 0 Trulance 3 mg tablet 3 mg PO DAILY 30 Days Qty: 30 RF: 6 famotidine [Pepcid] 20 mg tablet 20 mg PO BID 30 Days Qty: 60 RF: 6 montelukast 10 mg tablet 10 mg PO BEDTIME RF: 0 cyanocobalamin (vitamin B-12) 1,000 mcg tablet, sublingual 1,000 mcg sublingual DAILY RF: 0 fluticasone propion-salmeterol 500-50 mcg/dose blister with device 1 inh inhalation BID RF: 0 venlafaxine 150 mg capsule,extended release 24hr 150 mg PO DAILY RF: 0 methenamine hippurate 1 gram tablet 1 g PO DAILY 90 Days Qty: 90 RF: 1 dicyclomine 20 mg tablet 40 mg PO QIDACHS 30 Days Qty: 240 RF: 3
[2021-03-20 11:48] LABS: Glucose, Whole Blood 77 mg/dL (60-115)
[2021-03-20 11:50] LABS: MANUAL DIFF FLAG NO
[2021-03-20] MEDS: 0.9 % Sodium Chloride 1,000 ML 999 ML IVCONT ×2 (11:50→16:04)
[2021-03-20 11:54] LABS: Basophils Percent Auto 0.4 % (0-2); Eosinophils Absolute Auto 0.1 X10*3/uL (0.0-0.4); Eosinophils Percent Auto 1.7 % (0-4); Hematocrit 34.5 % (37-47); Hemoglobin 10.8 g/dl (12.0-16.0); Imm Gran Abs Auto 0.01 X10*3/uL (0.00-0.03); Imm Gran Pct Auto 0.2 % (0.0-0.4); Lymphocytes Absolute Auto 1.8 X10*3/uL (1.2-4.9); Lymphocytes Percent Auto 37.7 % (20-40); Mean Corpuscular HGB Conc 31.3 g/dl (31.0-35.0); Mean Corpuscular Volume 89.4 fL (80-98); Mean Platelet Volume 10.1 fL (9.4-12.3); Monocytes Absolute Auto 0.6 X10*3/uL (0.1-1.2); Monocytes Percent Auto 12.1 % (2-11); Neutrophils Absolute Auto 2.3 X10*3/uL (2.0-8.3); Neutrophils Percent Auto 47.9 % (45-73); Platelet Count 335 X10*3/uL (160-400); Red Blood Count 3.86 X10*6/uL (4.20-5.50); Red Cell Distribution Width 15.9 % (11.0-16.0); White Blood Count 4.7 X10*3/uL (4.8-10.8)
[2021-03-20 12:14] LABS: Alanine Aminotransferase 25 U/L (0-31); Albumin Level 4.2 g/dL (3.5-5.0); Alkaline Phosphatase 64 U/L (39-117); Anion Gap 11 (12-20); Aspartate Amino Transferase 35 U/L (5-31); Bilirubin Direct 0.2 mg/dL (0.0-0.5); Bilirubin Total 0.5 mg/dL (0.0-1.0); Blood Urea Nitrogen 13 mg/dL (9-16); Calcium 9.5 mg/dL (8.4-10.2); Carbon Dioxide 27 mmol/L (22-29); Chloride 107 mmol/L (96-108); Creatinine Clr Calc Pharmacy 52.3; Estimated Glomerular Filt Rate > 60; Glucose Random 86 mg/dL (60-115); Magnesium 2.5 mg/dL (1.6-2.6); Potassium 5.5 mmol/L (3.3-5.1); Sodium 139 mmol/L (135-145); Total Protein 6.9 g/dL (6.5-8.0)
[2021-03-20 12:18] LABS: Troponin-I High Sensitivity < 3.5 ng/L (<3.5-17.0)
[2021-03-20 12:25] LABS: COVID-19 Test Negative (Negative)
--- NOTE | 2021-03-20 13:10 | PC.NURSE ---
pt ambulated well to bathroom. on way back pt became shaky and weak. pt unable to bear weight. stretcher brought to bathroom. poc 72 and vss
[2021-03-20 13:12] LABS: Glucose, Whole Blood 71 mg/dL (60-115)
[2021-03-20 13:24] LABS: Appearance Urine CLEAR; Color Urine YELLOW; Glucose Urine UA NEG (NEG); Leukocyte Esterase Urine NEG (NEG); Nitrite Urine NEG (NEG); Specific Gravity - Urine <= 1.005 (1.005-1.025); Urine Blood NEG (NEG); Urine Ketones NEG (NEG); Urine Protein NEG (NEG-TRACE)
[2021-03-20 13:38] LABS: Amphetamine Screen Urine Not Detected (Not Detect); Barbiturates, Urine Not Detected (Not Detect); Benzodiazepines Screen Urine Not Detected (Not Detect); Cannabinoid Screen Urine Not Detected (Not Detect); Cocaine Screen Urine Not Detected (Not Detect); Fentanyl, urine Not Detected (Not Detect); Opiate Screen Urine Not Detected (Not Detect); Phencyclidine Screen Urine Not Detected (Not Detect)
--- NOTE | 2021-03-20 15:42 | PC.NURSE ---
PATIENT WAS ASSISTED UNTO BED SIDE COMMODE BY THIS PCT ,PATIENT HAD A HAM SANDWICH AND ORANGE JUICE .
[2021-03-20 15:58] LABS: Glucose, Whole Blood 86 mg/dL (60-115)
[2021-03-20] MEDS: Meclizine HCl 25 MG TABLET PO (16:13)
--- NOTE | 2021-03-20 16:13 | PC.NURSE ---
PT RESTING QUIETLY. SECOND LITER INFUSING . MEDICATED FOR CONTINUED DIZZINESS
--- NOTE | 2021-03-20 19:43 | MHC.CM.ED ---
CM met with patient at request of Pauly Emery hourly sign language interpreter used as pt is Occitan Speaking only. Pt is requesting to go home. Pt is refusing STR. Pt states she has a PT evaluation scheduled at home for 03/29 from [facility]. Pt states she is safe to go home. Pt lives alone. Uses a cane and walker. Has 3 hours of [employer] services, 7 days/week. Pt states her son Gilberto also helps her. Pt is fully vaccinated with Moderna. Pt is A&O. Dr. Bryant aware of above and will d/c patient home. Pt to arrange transportation home. Pt encouraged to call her son and let him know she will be going home. RN aware of above. CM to follow for d/c needs.
--- NOTE | 2021-03-20 19:53 | MHC.CM.ED ---
Pt called family for transportation home. Pt dressed herself and is ready to go. Happy to be going home.
== END 2021-03-20 20:07 | disposition home or self-care (01) ==
PROVIDERS: Physician Assistant; Emergency Provider Emergency Medicine
DX: R42 Dizziness and giddiness (principal); R53.1 Weakness; R63.8 Other symptoms and signs concerning food and fluid intake; E87.5 Hyperkalemia; Z79.82 Long term (current) use of aspirin; Z79.899 Other long term (current) drug therapy; Z91.81 History of falling; Z20.822 Contact with and (suspected) exposure to COVID-19
CPT/HCPCS: 36415; 70450; 72125; 73080; 80048; 80076; 80307; 81003; 82947; 83735; 84484; 85025; 87635; 93005; 96360; 96361; 99284; 99285; 99291

== ENCOUNTER → 2021-04-19 15:36 | Outpatient (BNVA) | payer MEDICARE, SELFPAY | PROVIDERS: Visit Provider Nurse Practitioner | DX: Z13.89 Encounter for screening for other disorder (principal) | CPT/HCPCS: Q3014 ==

== ENCOUNTER → 2021-05-13 10:23 | Outpatient (BNVA) | payer MEDICARE, SELFPAY | PROVIDERS: Visit Provider Internal Medicine | DX: B53.8 Other malaria, not elsewhere classified (principal); E03.9 Hypothyroidism, unspecified; D50.9 Iron deficiency anemia, unspecified; M81.0 Age-related osteoporosis without current pathological fracture; E55.9 Vitamin D deficiency, unspecified; N39.0 Urinary tract infection, site not specified | CPT/HCPCS: 99212 ==

== ENCOUNTER → 2021-05-17 15:39 | Outpatient (BNVA) | payer MEDICARE, SELFPAY | PROVIDERS: Visit Provider Nurse Practitioner | CPT/HCPCS: Q3014 ==

== ENCOUNTER → 2021-06-20 13:51 | Outpatient (BNVA) | payer MEDICARE, SELFPAY | PROVIDERS: Visit Provider Nurse Practitioner ==

== ENCOUNTER 2021-06-26 08:52 | Emergency (ER) | payer MEDICARE, SELFPAY ==
--- NOTE | ~2021-06-26 | CT_ITS ---
EXAMINATION: CT ABDOMEN AND PELVIS WITH CONTRAST CLINICAL INFORMATION: Right lower quadrant abdominal pain. COMPARISON: CT scan abdomen pelvis 10/09/2020 TECHNIQUE: Multidetector volumetric images were obtained from the superior aspect of the liver through the pubic symphysis following administration 85 mL of Omnipaque 350 intravenous contrast. Sagittal and coronal reformatted images were obtained on the technologist's workstation. Oral contrast: No This CT examination was performed using dose optimization techniques as appropriate, variously including the following: *Automated exposure control *Adjustment of mA and/or kV according to patient size (this includes techniques or standardized protocols for targeted exams where dose is matched to indication/reason for exam; i.e. extremities or head) *Use of iterative reconstruction technique DLP: 427 mGy-cm FINDINGS: LUNG BASES: The visualized lung bases are unremarkable. LIVER, GALLBLADDER, AND BILIARY TREE: The liver is normal in size, shape, and attenuation. No focal hepatic lesion or biliary ductal dilatation is present. Status post cholecystectomy. PANCREAS: Unremarkable. SPLEEN: Unremarkable. ADRENAL GLANDS: Unremarkable. KIDNEYS AND URETERS: The kidneys are normal in size, shape, and attenuation. No hydronephrosis, hydroureter, or calculi seen. No perinephric stranding. BLADDER: Unremarkable. GASTROINTESTINAL TRACT: No acute change of bowel. There is no bowel wall thickening /edema. There is no bowel obstruction. There is a moderate to large volume of stool in the colon. The appendix is normal . Status post gastric bypass surgery. There is no hiatal hernia. ABDOMINAL WALL: No significant hernia is appreciated. LYMPH NODES: Normal. VASCULAR: Atherosclerotic vascular calcifications of aorta and iliac arteries. There is no aneurysm. PELVIC VISCERA: Uterus is anteverted and atrophic. There is no adnexal abnormality. OSSEOUS STRUCTURES: Unremarkable. CT/CT abdomen pelvis w con IMPRESSION: No acute abnormality CT scan abdomen pelvis. Fleischner guidelines were followed.
[2021-06-26 09:20] VITALS: BP 137/68; PULSE 78; RESP 19; TEMP 36.6; O2SAT 100; BMI 28.3
[2021-06-26 12:44] LABS: MANUAL DIFF FLAG NO
[2021-06-26 12:48] LABS: Basophils Percent Auto 0.4 % (0-2); Eosinophils Absolute Auto 0.1 X10*3/uL (0.0-0.4); Eosinophils Percent Auto 1.3 % (0-4); Hematocrit 38.1 % (37.0-47.0); Hemoglobin 11.8 g/dl (12.0-16.0); Imm Gran Abs Auto 0.01 X10*3/uL (0.00-0.03); Imm Gran Pct Auto 0.2 % (0.0-0.4); Lymphocytes Absolute Auto 1.8 X10*3/uL (1.2-4.9); Lymphocytes Percent Auto 39.3 % (20-40); Mean Corpuscular Hemoglobin 27.9 pg (27.0-33.0); Mean Corpuscular Volume 90.1 fL (80.0-98.0); Mean Platelet Volume 10.1 fL (9.4-12.3); Monocytes Absolute Auto 0.4 X10*3/uL (0.1-1.2); Monocytes Percent Auto 9.9 % (2-11); Neutrophils Absolute Auto 2.2 x10*3/uL (2.0-8.3); Neutrophils Percent Auto 48.9 % (45-73); Platelet Count 291 X10*3/uL (160-400); Red Blood Count 4.23 X10*6/uL (4.20-5.50); Red Cell Distribution Width 15.9 % (11.0-16.0); White Blood Count 4.5 X10*3/uL (4.8-10.8)
[2021-06-26 13:00] LABS: COVID-19 Test Negative (Negative)
[2021-06-26 13:01] LABS: Alanine Aminotransferase 20 U/L (0-31); Albumin Level 4.2 g/dL (3.5-5.0); Alkaline Phosphatase 66 U/L (39-117); Anion Gap 13 (12-20); Aspartate Amino Transferase 27 U/L (5-31); Bilirubin Direct 0.2 mg/dL (0.0-0.5); Bilirubin Total 0.6 mg/dL (0.0-1.0); Blood Urea Nitrogen 12 mg/dL (9-16); Calcium 9.8 mg/dL (8.4-10.2); Carbon Dioxide 27 mmol/L (22-29); Chloride 109 mmol/L (96-108); Creatinine Clr Calc Pharmacy 52.8; Estimated Glomerular Filt Rate > 60; Glucose Random 100 mg/dL (60-115); Lipase 18 U/L (8-78); Potassium 4.8 mmol/L (3.3-5.1); Sodium 144 mmol/L (135-145); Total Protein 7.1 g/dL (6.5-8.0)
[2021-06-26 13:15] LABS: Appearance Urine CLEAR; Color Urine YELLOW; Glucose Urine UA NEG (NEG); Leukocyte Esterase Urine NEG (NEG); Nitrite Urine NEG (NEG); Specific Gravity - Urine 1.025 (1.005-1.025); UACC Culture Trigger NO; Urine Blood TRACE (NEG); Urine Ketones NEG (NEG); Urine Protein NEG (NEG-TRACE)
[2021-06-26 13:25] LABS: Granular Casts Urine 0-2 /LPF; Mucus Urine 2+ /LPF; Squamous Epithelial Cell Urine 1+ /LPF; WBC Urine 0-2 /HPF (0-4)
[2021-06-26 15:10] VITALS: BP 159/56; PULSE 55; RESP 16; TEMP 36.4; O2SAT 98
--- NOTE | 2021-06-26 15:43 | ED_ITS ---
HPI - Abdominal Pain General Chief Complaint: Abdominal Pain Stated Complaint: sore throat Time Seen by Provider: 06/26/21 15:32 Source: patient and old records reviewed History of Present Illness HPI narrative: Patient complains of right lower quadrant abdominal pain radiating to her umbilicus for the past 2 and half weeks. No prior history of pain in this area before. Positive nausea and vomiting which is worse than her baseline. Patient has a history of chronic abdominal pain which is typically epigastric. She has a remote history of gastric bypass surgery and cholecystectomy over 20 years ago. No fevers or chills No diarrhea No causative factors that she knows of She called her PCP who recommended she come to the emergency department for CT scan to rule out appendicitis. No urinary symptoms Related Data Home Medications Medication Instructions Recorded Confirmed ascorbic acid (vitamin C) 500 mg 500 mg PO BID 07/17/20 03/20/21 tablet (Vitamin C) aspirin 81 mg tablet,delayed 81 mg PO DAILY 07/17/20 03/20/21 release cyanocobalamin (vitamin B-12) 1,000 mcg SUBLINGUAL DAILY 08/10/20 03/20/21 1,000 mcg sublingual tablet fluticasone 500 mcg-salmeterol 50 1 inh INHALATION BID 08/10/20 03/20/21 mcg/dose blistr powdr for inhalation montelukast 10 mg tablet 10 mg PO BEDTIME 08/10/20 03/20/21 venlafaxine 150 mg 150 mg PO DAILY 08/10/20 03/20/21 capsule,extended release 24 hr blood sugar diagnostic #10 ea 09/12/20 03/20/21 clonazepam 1 mg tablet 1 mg PO TID PRN 09/12/20 03/20/21 dulaglutide 0.75 mg/0.5 mL 0.75 mg SUBCUT QWEEK 09/12/20 03/20/21 subcutaneous pen injector folic acid 1 mg tablet 1 mg PO DAILY 09/12/20 03/20/21 gabapentin 400 mg capsule 400 mg PO TID 09/12/20 03/20/21 lancets 33 gauge #100 ea 09/12/20 03/20/21 metformin 500 mg tablet,extended 500 mg PO BID 09/12/20 03/20/21 release 24 hr venlafaxine 75 mg capsule,extended 75 mg PO DAILY 09/12/20 03/20/21 release 24 hr estradiol 1 g VAGINAL 3XW 10/11/20 03/20/21 zolpidem 10 mg tablet 1 tab PO BEDTIME 03/20/21 03/20/21 Previous Rx's Medication Instructions Recorded cholecalciferol (vitamin D3) 50 50 mcg PO DAILY 30 Days #30 cap 07/23/20 mcg (2,000 unit) capsule Tirosint 112 mcg capsule 112 mcg PO DAILY 30 Days #30 cap NS 02/19/21 (levothyroxine) meclizine 12.5 mg tablet 12.5 mg PO TID PRN #20 tab 03/20/21 tramadol 50 mg tablet 50 mg PO Q6H #120 tab 04/05/21 dicyclomine 20 mg tablet 20 mg PO QIDACHS 30 Days #240 tab 04/19/21 metoclopramide HCl 10 mg tablet 10 mg PO .TIDAC 30 Days #90 tab 04/19/21 (Reglan) methenamine hippurate 1 gram tablet 1 g PO DAILY 90 Days #90 tab 04/24/21 bisacodyl 5 mg tablet,delayed 10 mg PO BEDTIME 30 Days #60 tab 05/17/21 release (Dulcolax (bisacodyl)) famotidine 20 mg tablet (Pepcid) 20 mg PO DAILY 30 Days #30 tab 05/17/21 omeprazole 40 mg capsule,delayed 40 mg PO BID 30 Days #60 cap 05/17/21 release plecanatide 3 mg tablet (Trulance) 3 mg PO DAILY 30 Days #30 tab 05/17/21 simethicone 180 mg capsule 180 mg PO QID #120 cap 06/12/21 magnesium citrate 300 ml PO DAILY PRN #296 ml 06/26/21 Allergies Allergy/AdvReac Type Severity Reaction Status Date / Time No Known Allergies Allergy Verified 06/20/21 14:53 [No Known Allergies*] Review of Systems Comments: No fevers or chills. Positive general malaise Comments: No chest pain Comments: No cough or dyspnea Comments: Abdominal pain is described Comments: No dysuria hesitancy frequency Comments: No musculoskeletal complaint Comments: No rash Comments: No focal neuro deficits Comments: No diabetes. Positive weight loss, unintentional, over the past few months Physical Exam Vital Signs: Vital Signs: Last Vital Signs Temp 97.5 F 06/26/21 15:10 Pulse 55 06/26/21 15:10 Resp 16 06/26/21 15:10 BP 159/56 H 06/26/21 15:10 Pulse Ox 98 06/26/21 15:10 BMI result Body Mass Index 28.3 Const: Other: Awake alert no acute distress. Thin Resp: Other: Clear and equal bilaterally without wheezes rales or rhonchi Cardio: Other: Regular rate and rhythm without murmurs rubs or gallops GI: Other: Soft and nondistended but very tender to palpation in the right lower quadrant with guarding and rebound. No left-sided abdominal tenderness. No upper abdominal tenderness. No flank tenderness Skin: Other: Warm pink and dry with poor turgor. No rash Neuro: Other: Nonfocal Extrem: Other: Normal Course Course Course Narrative: Abdominal pain Appendicitis Urinary tract infection Kidney stone Diverticulitis Adhesions Bowel obstruction IV fluids IV Zofran Lab work shows low normal white count. Chemistries include creatinine are normal. LFTs are normal. Lipase is normal CT scan ordered 6:06 p.m.. Workup shows normal white count of 4.9 Chemistries are normal. Urinalysis is normal An CT scan is without evidence of appendicitis. There is evidence of constipation however. No other pathologic findings to explain the pain. Will discharge home with treatment for abdominal pain and constipation. MDM - Abdominal Pain Lab Data Result diagrams: 06/26/21 12:39 06/26/21 12:39 Labs: Lab Results 06/26/21 06/26/21 06/26/21 Range/Units 12:39 12:39 12:39 WBC 4.5 L (4.8-10.8) X10*3/uL RBC 4.23 (4.20-5.50) X10*6/uL Hgb 11.8 L (12.0-16.0) g/dl Hct 38.1 (37.0-47.0) % MCV 90.1 (80.0-98.0) fL MCH 27.9 (27.0-33.0) pg MCHC 31.0 (31.0-35.0) g/dl RDW 15.9 (11.0-16.0) % Plt Count 291 (160-400) X10*3/uL MPV 10.1 (9.4-12.3) fL Immature Gran % (Auto) 0.2 (0.0-0.4) % Neut % (Auto) 48.9 (45-73) % Lymph % (Auto) 39.3 (20-40) % [place]undy % (Auto) 9.9 (2-11) % Eos % (Auto) 1.3 (0-4) % Baso % (Auto) 0.4 (0-2) % Lymph # (Auto) 1.8 (1.2-4.9) X10*3/uL [place] # (Auto) 0.4 (0.1-1.2) X10*3/uL Eos # (Auto) 0.1 (0.0-0.4) X10*3/uL Baso # (Auto) 0.0 (0.0-0.2) X10*3/uL Abs Immat Gran (auto) 0.01 (0.00-0.03) X10*3/uL Absolute Neuts (auto) 2.2 (2.0-8.3) x10*3/uL Absolute Nucleated RBC 0.000 (0.0-0.012) X10*3/uL Nucleated RBC % (auto) 0.0 (0.0-0.2) /100WBC Sodium 144 (135-145) mmol/L Potassium 4.8 (3.3-5.1) mmol/L Chloride 109 H (96-108) mmol/L Carbon Dioxide 27 (22-29) mmol/L Anion Gap 13 (12-20) BUN 12 (9-16) mg/dL Creatinine 0.85 (0.5-1.4) mg/dL Estim Creat Clear Calc 52.8 Estimated GFR > 60 Random Glucose 100 (60-115) mg/dL Calcium 9.8 (8.4-10.2) mg/dL Total Bilirubin 0.6 (0.0-1.0) mg/dL Direct Bilirubin 0.2 (0.0-0.5) mg/dL AST 27 (5-31) U/L ALT 20 (0-31) U/L Alkaline Phosphatase 66 (39-117) U/L Total Protein 7.1 (6.5-8.0) g/dL Albumin 4.2 (3.5-5.0) g/dL Lipase 18 (8-78) U/L Urine Color Urine Appearance Urine pH (5.0-8.0) Ur Specific [place] (1.005-1.025) Urine Protein (NEG-TRACE) MG/DL Urine Glucose (UA) (NEG) MG/DL Urine Ketones (NEG) MG/DL Urine Blood (NEG) Urine Nitrite (NEG) Ur Leukocyte Esterase (NEG) Urine RBC (0) /HPF Urine WBC (0-4) /HPF Ur Squamous Epith Cells /LPF Urine Bacteria /LPF Granular Casts /LPF Urine Mucus /LPF COVID-19 (MARLY) Negative (Negative) COVID-19 Clin Com See Note 06/26/21 Range/Units 12:56 WBC (4.8-10.8) X10*3/uL RBC (4.20-5.50) X10*6/uL Hgb (12.0-16.0) g/dl Hct (37.0-47.0) % MCV (80.0-98.0) fL MCH (27.0-33.0) pg MCHC (31.0-35.0) g/dl RDW (11.0-16.0) % Plt Count (160-400) X10*3/uL MPV (9.4-12.3) fL Immature Gran % (Auto) (0.0-0.4) % Neut % (Auto) (45-73) % Lymph % (Auto) (20-40) % [place] % (Auto) (2-11) % Eos % (Auto) (0-4) % Baso % (Auto) (0-2) % Lymph # (Auto) (1.2-4.9) X10*3/uL [place] # (Auto) (0.1-1.2) X10*3/uL Eos # (Auto) (0.0-0.4) X10*3/uL Baso # (Auto) (0.0-0.2) X10*3/uL Abs Immat Gran (auto) (0.00-0.03) X10*3/uL Absolute Neuts (auto) (2.0-8.3) x10*3/uL Absolute Nucleated RBC (0.0-0.012) X10*3/uL Nucleated RBC % (auto) (0.0-0.2) /100WBC Sodium (135-145) mmol/L Potassium (3.3-5.1) mmol/L Chloride (96-108) mmol/L Carbon Dioxide (22-29) mmol/L Anion Gap (12-20) BUN (9-16) mg/dL Creatinine (0.5-1.4) mg/dL Estim Creat Clear Calc Estimated GFR Random Glucose (60-115) mg/dL Calcium (8.4-10.2) mg/dL Total Bilirubin (0.0-1.0) mg/dL Direct Bilirubin (0.0-0.5) mg/dL AST (5-31) U/L ALT (0-31) U/L Alkaline Phosphatase (39-117) U/L Total Protein (6.5-8.0) g/dL Albumin (3.5-5.0) g/dL Lipase (8-78) U/L Urine Color YELLOW Urine Appearance CLEAR Urine pH 6.0 (5.0-8.0) Ur Specific [place] 1.025 (1.005-1.025) Urine Protein NEG (NEG-TRACE) MG/DL Urine Glucose (UA) NEG (NEG) MG/DL Urine Ketones NEG (NEG) MG/DL Urine Blood TRACE (NEG) Urine Nitrite NEG (NEG) Ur Leukocyte Esterase NEG (NEG) Urine RBC 1-4 (0) /HPF Urine WBC 0-2 (0-4) /HPF Ur Squamous Epith Cells 1+ /LPF Urine Bacteria NONE /LPF Granular Casts 0-2 /LPF Urine Mucus 2+ /LPF COVID-19 (MARLY) (Negative) COVID-19 Clin Com Discharge Plan Discharge Clinical Impression: Abdominal pain, Constipation Patient Disposition: Home, Self-Care Instructions: Constipation (ED), Abdominal Pain (ED) Prescriptions: New magnesium citrate Solution 300 ml PO DAILY PRN (Reason: constipation) Qty: 296 RF: 0 No Action cholecalciferol (vitamin D3) 50 mcg (2,000 unit) capsule 50 mcg PO DAILY 30 Days Qty: 30 RF: 6 levothyroxine [Tirosint] 112 mcg capsule 112 mcg PO DAILY 30 Days Qty: 30 RF: 1 tramadol 50 mg tablet 50 mg PO Q6H Qty: 120 RF: 5 methenamine hippurate 1 gram tablet 1 g PO DAILY 90 Days Qty: 90 RF: 1 simethicone 180 mg capsule 180 mg PO QID Qty: 120 RF: 2 aspirin 81 mg Tablet,Delayed Release (Dr/Ec) 81 mg PO DAILY RF: 0 ascorbic acid (vitamin C) [Vitamin C] 500 mg Tablet 500 mg PO BID RF: 0 estradiol 0.01 % (0.1 mg/gram) cream 1 g vaginal 3XW RF: 0 zolpidem 10 mg tablet 1 tab PO BEDTIME RF: 0 meclizine 12.5 mg tablet 12.5 mg PO TID PRN (Reason: dizziness) Qty: 20 RF: 0 clonazepam 1 mg tablet 1 mg PO TID PRN (Reason: Anxiety) RF: 0 dulaglutide 0.75 mg/0.5 mL pen injector 0.75 mg subcut QWEEK RF: 0 gabapentin 400 mg capsule 400 mg PO TID RF: 0 venlafaxine 75 mg capsule,extended release 24hr 75 mg PO DAILY RF: 0 (DME) lancets 33 gauge misc See Rx Instructions ea Not Applicable BID Qty: 100 RF: 0 (DME) blood sugar diagnostic Strip See Rx Instructions strip Not Applicable BID Qty: 10 RF: 0 metformin 500 mg tablet extended release 24 hr 500 mg PO BID RF: 0 folic acid 1 mg tablet 1 mg PO DAILY RF: 0 montelukast 10 mg tablet 10 mg PO BEDTIME RF: 0 cyanocobalamin (vitamin B-12) 1,000 mcg tablet, sublingual 1,000 mcg sublingual DAILY RF: 0 fluticasone propion-salmeterol 500-50 mcg/dose blister with device 1 inh inhalation BID RF: 0 venlafaxine 150 mg capsule,extended release 24hr 150 mg PO DAILY RF: 0 metoclopramide HCl [Reglan] 10 mg tablet 10 mg PO .TIDAC 30 Days Qty: 90 RF: 6 dicyclomine 20 mg tablet 20 mg PO QIDACHS 30 Days Qty: 240 RF: 3 bisacodyl [Dulcolax (bisacodyl)] 5 mg tablet,delayed release (DR/EC) 10 mg PO BEDTIME 30 Days Qty: 60 RF: 6 Trulance 3 mg tablet 3 mg PO DAILY 30 Days Qty: 30 RF: 6 omeprazole 40 mg capsule,delayed release(DR/EC) 40 mg PO BID 30 Days Qty: 60 RF: 6 famotidine [Pepcid] 20 mg tablet 20 mg PO DAILY 30 Days Qty: 30 RF: 6 PMFSH Past Medical History Medical History B12 deficiency Cystitis Dysuria Hypothyroidism Iron deficiency anemia Osteoporosis Pneumonia Recurrent UTI (urinary tract infection) Vitamin D deficiency Surgical History History of arthroscopy of left shoulder History of esophagogastroduodenoscopy (EGD) Hx of colonoscopy Family History Family History Father No problems noted. Mother Heart attack Diabetes mellitus CVD (cardiovascular disease) Arthritis of knee Stomach cancer Sister COVID-19 Social History Social History Household Members: Spouse Housing: House Unable to assess alcohol history related to: Unknown Alcohol intake: current Alcohol intake frequency: does not drink Advance Directives: No Advance Directives Information Provided: No service: No
[2021-06-26] MEDS: iohexoL 350 MG/ML 100 ML INFUS..BTL 85 ML IV (17:05)
[2021-06-26] MEDS: 0.9 % Sodium Chloride 1,000 ML 999 ML IV (17:15)
[2021-06-26] MEDS: ondansetron HCL 4 MG/2 ML VIAL IVPUSH (17:15)
== END 2021-06-26 18:26 | disposition home or self-care (01) ==
PROVIDERS: Emergency Provider Emergency Medicine; PCP Internal Medicine
DX: R10.9 Unspecified abdominal pain (principal); K59.00 Constipation, unspecified; Z20.822 Contact with and (suspected) exposure to COVID-19; Z98.84 Bariatric surgery status; Z90.49 Acquired absence of other specified parts of digestive tract; Z79.82 Long term (current) use of aspirin
CPT/HCPCS: 74177; 80048; 80076; 81001; 83690; 85025; 87635; 96361; 96374; 99284; J2405; Q9967

== ENCOUNTER → 2021-09-17 08:49 | Outpatient (BNVA) | payer OTHER, SELFPAY | PROVIDERS: PCP Nurse Practitioner Family; Referring Provider Nurse Practitioner Family; Visit Provider Nurse Practitioner | DX: K59.04 Chronic idiopathic constipation (principal); K21.9 Gastro-esophageal reflux disease without esophagitis | CPT/HCPCS: 99212 ==

== ENCOUNTER 2021-09-26 12:45 | Outpatient (REF) | payer MEDICARE, SELFPAY ==
--- NOTE | ~2021-09-26 | MM_ITS ---
EXAMINATION: MM DIAGNOSTIC DIGITAL BREAST TOMOSYNTHESIS, BILATERAL US DIAGNOSTIC ULTRASOUND BREAST, RIGHT CLINICAL INFORMATION: Right breast tenderness lower outer breast. Also palpable area on clinical exam right parasternal region. Due for yearly. The lifetime risk of breast cancer based on the Tyrer-Cuzick Model is 5%. COMPARISON: Mammography: 12/03/2020, 11/10/2018, 07/29/2017 TECHNIQUE: Digital breast tomosynthesis is performed in both the craniocaudal and mediolateral oblique views along with computer-aided detection (CAD). Synthesized 2D images are generated from the tomosynthesis. Additional right MLO view is provided. Ultrasound right breast is targeted to the inferior lateral breast as well as the right parasternal region. Grayscale imaging and color Doppler are performed without and with harmonics. FINDINGS: There are scattered areas of fibroglandular density (ACR BI-RADS breast composition Category b). Parenchymal pattern is similar to prior studies. There is no developing density or interval mass or architectural abnormality. There is no skin thickening or coarsening of the Sanchez's ligaments. The axilla and skin contours are unremarkable. Ultrasound demonstrates no cystic or solid mass or architectural abnormality. There is no skin thickening or edema tracking in soft tissue planes. Results are discussed with the patient at time of visit. MM/MM tomosynthesis diagnostic BI IMPRESSION: -No mammographic evidence of malignancy or inflammatory changes. -Unremarkable targeted right breast ultrasound. ASSESSMENT: BI-RADS 1: Negative RECOMMENDATION: 1. Patient should be managed based on the clinical impression. If there is still clinically palpable concern, surgical consult may be considered for further assessment. Decision to proceed with biopsy should be based on clinical grounds and degree of clinical concern. 2. Otherwise, routine annual screening mammography. This patient's information was entered into a reminder system with a target due date for their next mammogram.
== END 2021-09-26 12:46 | disposition home or self-care (01) ==
LOC: HO.MAMMO 12:45
PROVIDERS: PCP Nurse Practitioner Family; Visit Provider Nurse Practitioner Family
DX: N64.4 Mastodynia (principal)
CPT/HCPCS: 76642; 77062; 77066

== ENCOUNTER 2021-10-09 09:26 | Outpatient (REF) | payer OTHER, SELFPAY ==
--- NOTE | ~2021-10-09 | XR_ITS ---
EXAMINATION: XR KNEE, RIGHT CLINICAL INFORMATION: Pain COMPARISON: Knee x-ray May 2017 TECHNIQUE: 3 views of the right knee. FINDINGS: Bones and soft tissues are normal. No fracture or joint effusion. Alignment is anatomic. Joint spaces are well maintained. There is atherosclerotic disease. XR/XR knee RT 3V IMPRESSION: Normal right knee.
== END 2021-10-09 09:27 | disposition home or self-care (01) ==
LOC: HO.XRAY 09:26
PROVIDERS: PCP Nurse Practitioner Family; Visit Provider Nurse Practitioner Family
DX: M25.561 Pain in right knee (principal); M54.40 Lumbago with sciatica, unspecified side
CPT/HCPCS: 73562; 99212

== ENCOUNTER 2021-11-01 08:34 | Outpatient (REF) | payer OTHER, SELFPAY ==
--- NOTE | ~2021-11-01 | XR_ITS ---
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 COMPARISON: None TECHNIQUE: Frontal, both oblique, lateral views of the lumbosacral spine were obtained. Lateral views were obtained in neutral, flexion and extension positions. Frontal, lateral views of the sacrococcygeal spine were also obtained. FINDINGS: Lumbosacral spine: Mild mid to upper lumbar dextroscoliosis is present. Mild diffuse osteopenia is noted. Grade 1 anterolisthesis of L5 over S1 vertebral body is noted. The remainder of the lumbar spine show satisfactory alignment. The heights are normal. The posterior appendages are intact. No evidence of any compression fracture. No significant neural foraminal narrowing is noted on either side. There is no change in alignment noted between neutral, flexion and extension lateral views. Sacrococcygeal spine: Mild diffuse osteopenia is noted. The bony alignments are intact. The cortices are intact. The soft tissues are unremarkable. XR/XR lumbar spine 6V w bending IMPRESSION: 1. Mild diffuse osteopenia. 2. The lumbosacral spine shows mild mid to upper lumbar dextroscoliosis and grade 1 anterolisthesis of L5 over S1 vertebral body. 3. No radiographic evidence of any change in alignment between the neutral, flexion and extension lateral view 4. Intact sacrococcygeal spine.
--- NOTE | ~2021-11-01 | XR_ITS ---
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 COMPARISON: None TECHNIQUE: Frontal, both oblique, lateral views of the lumbosacral spine were obtained. Lateral views were obtained in neutral, flexion and extension positions. Frontal, lateral views of the sacrococcygeal spine were also obtained. FINDINGS: Lumbosacral spine: Mild mid to upper lumbar dextroscoliosis is present. Mild diffuse osteopenia is noted. Grade 1 anterolisthesis of L5 over S1 vertebral body is noted. The remainder of the lumbar spine show satisfactory alignment. The heights are normal. The posterior appendages are intact. No evidence of any compression fracture. No significant neural foraminal narrowing is noted on either side. There is no change in alignment noted between neutral, flexion and extension lateral views. Sacrococcygeal spine: Mild diffuse osteopenia is noted. The bony alignments are intact. The cortices are intact. The soft tissues are unremarkable. XR/XR sacrum coccyx min 2V IMPRESSION: 1. Mild diffuse osteopenia. 2. The lumbosacral spine shows mild mid to upper lumbar dextroscoliosis and grade 1 anterolisthesis of L5 over S1 vertebral body. 3. No radiographic evidence of any change in alignment between the neutral, flexion and extension lateral view 4. Intact sacrococcygeal spine.
== END 2021-11-01 08:35 | disposition home or self-care (01) ==
LOC: HO.XRAY 08:34
PROVIDERS: PCP Nurse Practitioner Family; Visit Provider Nurse Practitioner Family
DX: M47.816 Spondylosis without myelopathy or radiculopathy, lumbar region (principal); M54.16 Radiculopathy, lumbar region; M53.3 Sacrococcygeal disorders, not elsewhere classified; R29.6 Repeated falls
CPT/HCPCS: 72114; 72220; 99212

== ENCOUNTER → 2021-12-02 14:17 | Outpatient (BNVA) | payer OTHER, SELFPAY | PROVIDERS: PCP Nurse Practitioner Family; Visit Provider Nurse Practitioner Family | DX: M53.3 Sacrococcygeal disorders, not elsewhere classified (principal); M25.561 Pain in right knee; M25.512 Pain in left shoulder; M54.16 Radiculopathy, lumbar region; M47.816 Spondylosis without myelopathy or radiculopathy, lumbar region; G89.29 Other chronic pain | CPT/HCPCS: 99212 ==

== ENCOUNTER 2021-12-06 07:27 | Outpatient (REF) | payer OTHER, SELFPAY ==
--- NOTE | ~2021-12-06 | XR_ITS ---
EXAMINATION: XR SHOULDER, LEFT CLINICAL INFORMATION: Pain. COMPARISON: None TECHNIQUE: AP external rotation, Grashey, scapular Y, and axillary views of the left shoulder. FINDINGS: The glenohumeral joint space is maintained normal. There the left acromion is incompletely developed or fragmented from previous injury. The AC joint space is maintained normal considering the fragmented acromion is unchanged since chest X-ray of 10/17/2020. The soft tissues are normal. No bony erosive changes or loose body seen. XR/XR shoulder LT min 2V IMPRESSION: Deformity of the acromion with fragmentation likely old injury or developmental. It is unchanged to 10/17/2020 chest x-ray. Rest of the left shoulder is unremarkable.
== END 2021-12-06 07:28 | disposition home or self-care (01) ==
LOC: HO.HOSX 07:27
PROVIDERS: Visit Provider Physician Assistant
DX: M25.512 Pain in left shoulder (principal); M54.12 Radiculopathy, cervical region
CPT/HCPCS: 73030; 99202

== ENCOUNTER 2021-12-09 08:46 | Outpatient (REF) | payer OTHER, SELFPAY ==
--- NOTE | ~2021-12-09 | MR_ITS ---
MR LUMBAR SPINE WITHOUT CONTRAST CLINICAL INFORMATION: Repeated falls. COMPARISON: Lumbar spine radiographs 11/01/2021 and lumbar spine MRI 11/22/2016. TECHNIQUE: MRI of the lumbar spine was obtained using routine sequences without contrast. FINDINGS: There are 5 nonrib-bearing lumbar-type vertebral bodies. S1 is lumbarized, sharing a rudimentary disc with S2. There is heterogeneous bone marrow signal throughout the anterior and posterior elements of the lumbar spine, the partially imaged thoracic spine, and the partially imaged sacrum and bony pelvis. A whole-body bone scan would be helpful in assessing for evidence of malignant bone marrow placement. Findings could alternatively be seen in the setting of anemia/red marrow conversion and can be correlated with CBC. Vertebral body heights are maintained. There is grade 1 degenerative anterolisthesis of L5 on S1. There is moderate disc volume loss at L5-S1. There is disc desiccation at all lumbar levels. There are no significant extraspinal soft tissue findings. Conus terminates at the L1-L2 level. L1-L2: Diffuse annular disc bulge. There is no central canal stenosis and there is no foraminal stenosis. L2-L3: Disc contour is normal. Mild bilateral facet arthropathy. No central canal stenosis. There is mild foraminal encroachment bilaterally. L3-L4: There is a right lateral disc osteophyte complex resulting in mass effect on the extraforaminal right L3 nerve root. There is no central canal stenosis. Mild foraminal encroachment bilaterally. L4-L5: Diffuse annular disc bulge and moderate bilateral hypertrophic facet arthropathy. No central canal stenosis and no foraminal stenosis. L5-S1: Grade 1 degenerative anterolisthesis. Severe bilateral facet arthropathy and ligamentum flavum thickening. Uncovered disc with a superimposed diffuse annular disc bulge. Findings in concert result in bilateral subarticular zone stenosis with mass effect on the traversing S1 nerve roots bilaterally and a right lateral disc protrusion results in severe right-sided foraminal stenosis with compression of the exiting right L5 nerve root. Mild to moderate left foraminal encroachment. MR/MR lumbar spine wo con IMPRESSION: - There is heterogeneous bone marrow signal throughout the anterior and posterior elements of the lumbar spine, the partially imaged thoracic spine, and the partially imaged sacrum and bony pelvis. A whole-body bone scan would be helpful in assessing for evidence of malignant bone marrow placement to suggest underlying metastatic disease or alternative malignant pathology. Findings could alternatively be seen in the setting of anemia/red marrow conversion and can be correlated with CBC. - At L5-S1, there is grade 1 degenerative anterolisthesis in the setting of advanced bilateral facet arthropathy that along with uncovered disc results in bilateral subarticular zone stenosis with mass effect on the traversing S1 nerve roots bilaterally. A right lateral disc protrusion at L5-S1 results in severe right-sided foraminal stenosis with compression of the exiting right L5 nerve root. - At L3-L4, a right lateral disc osteophyte protrusion results in mass effect on the extraforaminal right L3 nerve root.
== END 2021-12-09 08:47 | disposition home or self-care (01) ==
LOC: HO.MRI 08:46
PROVIDERS: Visit Provider Nurse Practitioner Family
DX: M47.816 Spondylosis without myelopathy or radiculopathy, lumbar region (principal); M54.16 Radiculopathy, lumbar region; R29.6 Repeated falls
CPT/HCPCS: 72148

== ENCOUNTER → 2021-12-17 10:08 | Outpatient (BNVA) | payer OTHER, SELFPAY | PROVIDERS: PCP Nurse Practitioner Family; Visit Provider Nurse Practitioner Family | DX: M47.26 Other spondylosis with radiculopathy, lumbar region (principal); M53.3 Sacrococcygeal disorders, not elsewhere classified; G89.29 Other chronic pain; M25.561 Pain in right knee; M25.512 Pain in left shoulder | CPT/HCPCS: 99212 ==

== ENCOUNTER → 2021-12-27 10:11 | Outpatient (REF) | payer OTHER, SELFPAY ==
--- NOTE | ~2021-12-27 | NM_ITS ---
EXAMINATION: NM BONE SCAN OF THE WHOLE BODY CLINICAL INFORMATION: Abnormal MRI the spine. COMPARISON: No previous bone scan is available for comparison. Radiographs of the left shoulder dated 12/06/2021 and the lumbar spine and sacrum dated 11/01/2021 are available for comparison. MRI of the lumbar spine dated 12/09/2021 is available for comparison. TECHNIQUE: Multiple gamma scintillation camera images of the whole body were performed 3 hours following the intravenous administration of 21 mCi Tc-99m MDP. FINDINGS: In the head, there is mildly increased activity in a bilaterally symmetrical distribution in the frontal skull. This is probably due to hyperostosis frontalis interna. In the thoracic cage and upper extremities, there is mildly increased activity in the right acromioclavicular and sternoclavicular joints an very faintly in the glenohumeral articulations of both shoulders, all likely arthritic or degenerative. In the spine, there is mildly increased activity bilaterally in the posterior elements at L5/S1, probably due to facet arthropathy. In the pelvis, no significant abnormalities are present. In the lower extremities, there is mildly increased activity in the patellar compartments of both knees and very faintly in the mid feet bilaterally. No other definite bony abnormalities are noted. The urinary bladder and faint visualization of both kidneys are noted. The 12/09/2021 MRI of the lumbar spine show diffuse heterogeneous marrow uptake. No corresponding abnormalities on this bone scan are present in the vertebral bodies. There is moderately severe bilateral facet arthropathy that corresponds to the bone scan abnormalities at this level described above. NM/SC bone scan whole body IMPRESSION: 1. No significant lumbar spine vertebral body abnormalities are present that correspond to the heterogeneous signal visualized on the 12/09/2021 MRI. 2. A few mild nonspecific abnormalities are noted as described above and these are all likely arthritic or traumatic in etiology. None of these abnormalities is strongly suspicious for metastatic disease.
== END ==
LOC: HO.NUCMED 10:11
PROVIDERS: PCP Nurse Practitioner Family; Visit Provider Internal Medicine Medical Oncology
DX: R93.7 Abnormal findings on diagnostic imaging of other parts of musculoskeletal system (principal)
CPT/HCPCS: 78306; A9503

== ENCOUNTER → 2022-02-11 11:26 | Outpatient (BNVA) | payer OTHER, SELFPAY | PROVIDERS: PCP Nurse Practitioner Family; Visit Provider Nurse Practitioner | DX: K21.9 Gastro-esophageal reflux disease without esophagitis (principal); K31.84 Gastroparesis; K59.04 Chronic idiopathic constipation; R11.2 Nausea with vomiting, unspecified | CPT/HCPCS: 99212 ==

== ENCOUNTER → 2022-03-04 12:16 | Outpatient (BNVA) | payer OTHER, SELFPAY | PROVIDERS: PCP Nurse Practitioner Family; Visit Provider Nurse Practitioner | DX: K59.04 Chronic idiopathic constipation (principal); K21.9 Gastro-esophageal reflux disease without esophagitis; K28.9 Gastrojejunal ulcer, unspecified as acute or chronic, without hemorrhage or perforation; R11.2 Nausea with vomiting, unspecified | CPT/HCPCS: 99212 ==

== ENCOUNTER → 2022-03-21 08:05 | Outpatient (BNVA) | payer OTHER, SELFPAY | PROVIDERS: PCP Internal Medicine; Visit Provider Nurse Practitioner Family | DX: M47.816 Spondylosis without myelopathy or radiculopathy, lumbar region (principal); M51.36 Other intervertebral disc degeneration, lumbar region; M48.062 Spinal stenosis, lumbar region with neurogenic claudication; M81.0 Age-related osteoporosis without current pathological fracture | CPT/HCPCS: 99212 ==

== ENCOUNTER → 2022-04-10 08:28 | Outpatient (BNVA) | payer OTHER, SELFPAY | PROVIDERS: PCP Nurse Practitioner Family; Visit Provider Nurse Practitioner Family | DX: M54.40 Lumbago with sciatica, unspecified side (principal); M25.561 Pain in right knee; M51.36 Other intervertebral disc degeneration, lumbar region; M54.12 Radiculopathy, cervical region; M47.816 Spondylosis without myelopathy or radiculopathy, lumbar region | CPT/HCPCS: 99212 ==

== ENCOUNTER 2022-04-16 09:40 | Outpatient (REF) | payer OTHER, SELFPAY ==
[2022-04-16 09:55] LABS: MANUAL DIFF FLAG NO
[2022-04-16 10:27] LABS: Basophils Percent Auto 0.5 % (0-2); Eosinophils Absolute Auto 0.1 X10*3/uL (0.0-0.4); Eosinophils Percent Auto 2.1 % (0-4); Hematocrit 37.1 % (37.0-47.0); Hemoglobin 11.7 g/dl (12.0-16.0); Imm Gran Abs Auto 0.01 X10*3/uL (0.00-0.03); Imm Gran Pct Auto 0.3 % (0.0-0.4); Lymphocytes Absolute Auto 1.4 X10*3/uL (1.2-4.9); Lymphocytes Percent Auto 36.6 % (20-40); Mean Corpuscular HGB Conc 31.5 g/dl (31.0-35.0); Mean Corpuscular Volume 91.8 fL (80.0-98.0); Mean Platelet Volume 10.5 fL (9.4-12.3); Monocytes Absolute Auto 0.4 X10*3/uL (0.1-1.2); Neutrophils Absolute Auto 1.9 x10*3/uL (2.0-8.3); Neutrophils Percent Auto 50.5 % (45-73); Platelet Count 267 X10*3/uL (160-400); Red Blood Count 4.04 X10*6/uL (4.20-5.50); Red Cell Distribution Width 16.1 % (11.0-16.0); White Blood Count 3.8 X10*3/uL (4.8-10.8)
[2022-04-16 11:13] LABS: Alanine Aminotransferase 58 U/L (0-31); Albumin Level 4.1 g/dL (3.5-5.0); Alkaline Phosphatase 80 U/L (39-117); Anion Gap 15 (12-20); Aspartate Amino Transferase 71 U/L (5-31); Bilirubin Total 0.5 mg/dL (0.0-1.0); Blood Urea Nitrogen 13 mg/dL (9-16); Calcium 9.2 mg/dL (8.4-10.2); Carbon Dioxide 24 mmol/L (22-29); Chloride 107 mmol/L (96-108); Estimated Glomerular Filt Rate > 60; Gamma Glutamyl Transpeptidase 149 U/L (7-33); Glucose Random 127 mg/dL (60-115); Potassium 5.3 mmol/L (3.3-5.1); Sodium 141 mmol/L (135-145); Total Protein 6.6 g/dL (6.5-8.0)
[2022-04-16 11:23] LABS: HBS Num1 9.21 mIU/mL (0-7.99); HBc Num1 0.06 S/CO (0.00-0.79); HBsAGNum1 0.25 S/CO (0.00-0.99); HIV AB/AG Nonreactive (Nonreactive); HIV Num 1 0.07 S/CO (0.00-0.99); Hepatitis A Antibody IgM 0.16 Index (0-0.79); Hepatitis B Core Antibody Nonreactive (Nonreactive); Hepatitis B Surface Antigen Negative (Negative); ~HepC Num1 0.06 S/CO (0.00-0.79); ~Hepatitis A Antibody IgM Nonreactive (Nonreactive); ~Hepatitis C Antibody Nonreactive (Nonreactive)
[2022-04-16 11:29] LABS: Estimated Average Glucose 131 mg/dL; Hemoglobin A1c % 6.2 %
[2022-04-16 11:30] LABS: Ferritin 21 ng/mL (10-250)
[2022-04-16 12:18] LABS: HBS Num2 6.83 mIU/mL (0-7.99); HBS Num3 7.11 mIU/mL (0-7.99); ~Hepatitis B Surface Antibody NONREACTIVE (Nonreactive)
[2022-04-18 13:56] LABS: Alpha Fetoprotein 4.8 ng/mL
[2022-04-21 11:23] LABS: Mitochondrial Antibodies NEGATIVE (NEGATIVE)
[2022-04-22 06:57] LABS: Smooth Muscle Antibody <20 U (<20)
== END 2022-04-16 09:41 | disposition home or self-care (01) ==
LOC: HO.LAB 09:40
PROVIDERS: PCP Internal Medicine; Visit Provider Nurse Practitioner
DX: Z11.4 Encounter for screening for human immunodeficiency virus [HIV] (principal); K59.04 Chronic idiopathic constipation; K21.9 Gastro-esophageal reflux disease without esophagitis; K22.4 Dyskinesia of esophagus; K28.9 Gastrojejunal ulcer, unspecified as acute or chronic, without hemorrhage or perforation; R13.10 Dysphagia, unspecified; R11.2 Nausea with vomiting, unspecified; R79.89 Other specified abnormal findings of blood chemistry
CPT/HCPCS: 36415; 80053; 82105; 82728; 82977; 83036; 85025; 86015; 86255; 86256; 86704; 86706; 86709; 86803; 87340; 87389; 99212

== ENCOUNTER 2022-05-02 11:18 | Outpatient (REF) | payer OTHER, SELFPAY ==
--- NOTE | ~2022-05-02 | XR_ITS ---
EXAMINATION: XR CHEST CLINICAL INFORMATION: Difficulty breathing and chest pain COMPARISON: None TECHNIQUE: 2 views of the chest were obtained. FINDINGS: Lungs grossly are clear. No pleural effusions. Heart and pulmonary vessels normal. Postsurgical change seen in the C-spine. There are surgical clips in the upper abdomen. XR/XR chest 2V IMPRESSION: No active disease.
[2022-05-02 12:34] LABS: B Type Natriuretic Peptide 59 pg/mL (<100)
[2022-05-02 12:42] LABS: Anion Gap 14 (12-20); Blood Urea Nitrogen 16 mg/dL (9-16); Calcium 9.7 mg/dL (8.4-10.2); Carbon Dioxide 25 mmol/L (22-29); Chloride 108 mmol/L (96-108); Estimated Glomerular Filt Rate > 60; Glucose Random 115 mg/dL (60-115); Potassium 5.4 mmol/L (3.3-5.1); Sodium 142 mmol/L (135-145)
== END 2022-05-02 11:19 | disposition home or self-care (01) ==
LOC: HO.XRAY 11:18
PROVIDERS: PCP Internal Medicine; Visit Provider Internal Medicine Cardiovascular Disease
DX: R07.9 Chest pain, unspecified (principal)
CPT/HCPCS: 36415; 71046; 80048; 83880

== ENCOUNTER 2022-05-15 11:33 | Day surgery (SDC) | payer OTHER, SELFPAY ==
[2022-05-12 15:23] VITALS: BMI 25.8
--- NOTE | 2022-05-14 12:28 | P.CONAN_ITS ---
Documented by User: Jessica Martel NP 05/14/22 12:29 HPI - Anesthesia Eval Consult details Narrative: 71yo F for Upper Endoscopy PMFSH Active Problems Active Problems: All Active Problems (Updated 05/12/22 @ 15:27 by Poornima Milligan RN) IBS (irritable bowel syndrome) (Acute) Anemia (Acute) GERD (gastroesophageal reflux disease) (Acute) Chronic idiopathic constipation (Acute) Lumbago with sciatica (Acute) Sepsis (Acute) Dysphagia (Acute) Chronic UTI (urinary tract infection) (Acute) Esophageal candidiasis (Acute) Esophageal dysmotilities (Acute) Anastomotic ulcer (Acute) Lumbar spondylosis (Acute) Right lumbar radiculopathy (Acute) Recurrent falls while walking (Acute) Coccygodynia (Acute) Right anterior knee pain (Acute) Patellofemoral arthralgia of right knee (Acute) Chronic left shoulder pain (Acute) Radiculopathy of cervical spine (Acute) Abnormal findings on diagnostic imaging of musculoskeletal system (Acute) Nausea and vomiting (Acute) Lumbar degenerative disc disease (Acute) Elevated LFTs (Acute) Dysuria (Acute) Vitamin D deficiency (Acute) Hypothyroidism (Acute) Osteoporosis (Chronic) Past Medical History Medical History (Updated 05/12/22 @ 15:27 by Poornima Milligan RN) B12 deficiency Cystitis Diabetes Dysuria Hypothyroidism Iron deficiency anemia Osteoporosis Pneumonia Recurrent UTI (urinary tract infection) Vitamin D deficiency Family History Family History Father No problems noted. Mother Stomach cancer Diabetes mellitus CVD (cardiovascular disease) Heart attack Arthritis of knee Sister COVID-19 Paternal Aunt Cancer Maternal Aunt Cancer Paternal Uncle Cancer Surgical History Surgical History (Updated 05/12/22 @ 15:21 by Poornima Milligan RN) History of arthroscopy of left shoulder History of esophagogastroduodenoscopy (EGD) Hx of colonoscopy Hx of gastric bypass Social History Social History Household Members: Spouse Housing: House Are you a primary director of healthcare systems to a significant other at home: No Do you presently have visiting nurse or other home services: No (unable to determine) Unable to assess alcohol history related to: Unknown Alcohol intake: current Alcohol intake frequency: does not drink Patient Tobacco Use Status: Never used Tobacco service: No Current occupational status: disabled Meds Allergies Allergy/AdvReac Type Severity Reaction Status Date / Time No Known Allergies Allergy Verified 04/16/22 08:43 [No Known Allergies*] Home Medications Medication Instructions Recorded Confirmed Last Taken Type ascorbic acid (vitamin C) 500 mg 500 mg PO BID 07/17/20 03/13/22 Unknown History tablet (Vitamin C) aspirin 81 mg tablet,delayed 81 mg PO DAILY 07/17/20 03/13/22 Unknown History release montelukast 10 mg tablet 10 mg PO BEDTIME 08/10/20 03/13/22 Unknown History blood sugar diagnostic #10 ea 09/12/20 03/13/22 Unknown History clonazepam 1 mg tablet 1 mg PO TID PRN Anxiety 09/12/20 03/13/22 Unknown History dulaglutide 0.75 mg/0.5 mL 0.75 mg subcut QWEEK 09/12/20 03/13/22 Unknown History subcutaneous pen injector gabapentin 400 mg capsule 400 mg PO TID 09/12/20 03/13/22 Unknown History lancets 33 gauge #100 ea 09/12/20 03/13/22 Unknown History metformin 500 mg tablet,extended 500 mg PO BID 09/12/20 03/13/22 Unknown History release 24 hr venlafaxine 75 mg capsule,extended 75 mg PO DAILY 09/12/20 03/13/22 Unknown History release 24 hr estradiol 0.01% (0.1 mg/gram) 1 g vaginal 3XW 10/11/20 03/13/22 Unknown History vaginal cream zolpidem 10 mg tablet 1 tab PO BEDTIME 03/20/21 03/13/22 Unknown History acetaminophen 500 mg tablet 500 mg PO Q6-8H PRN Pain 12/02/21 03/13/22 Unknown History albuterol sulfate 90 mcg/actuation 0 mcg inhalation DAILY 12/02/21 03/13/22 Unknown History aerosol inhaler (Ventolin HFA) amlodipine 5 mg tablet 5 mg PO QAM 12/02/21 03/13/22 Unknown History levothyroxine 125 mcg tablet 125 mcg PO QAM 12/02/21 03/13/22 Unknown History (Synthroid) mupirocin 2 % topical ointment 1 appl topical TID 12/02/21 03/13/22 Unknown History rosuvastatin 40 mg tablet 40 mg PO DAILY 12/02/21 03/13/22 Unknown History topiramate 50 mg tablet 50 mg PO BEDTIME 12/02/21 03/13/22 Unknown History fluticasone fur. 100 mcg-umeclid 1 ea inhalation DAILY 12/17/21 03/13/22 Unknown History 62.5 mcg-vilant 25 mcg inhalat.powder (Trelegy Ellipta) ipratropium 0.5 mg-albuterol 3 mg 3 ml inhalation QID 12/17/21 03/13/22 Unknown History (2.5 mg base)/3 mL nebulization soln multivitamin-ferrous 1 tab PO DAILY 12/17/21 03/13/22 Unknown History fumarate-folic acid 18 mg-400 mcg tablet (Certavite-Antioxidant) diclofenac sodium 1 % topical gel 1 g topical BID 02/11/22 03/13/22 Unknown History methenamine hippurate 1 gram tablet 1 g PO DAILY 02/11/22 03/13/22 Unknown History venlafaxine 150 mg 150 mg PO DAILY 03/21/22 Unknown History capsule,extended release 24 hr sstemc-[id number]-nxtpmai 1 cap PO BID 04/16/22 04/16/22 Unknown History 24,000-76,000-120,000 unit capsule,delayed rel (Creon) Exam Exam Date and Time: May 14, 2022 1228 Height,Weight and Vital Signs: Height 5 ft Weight 60 kg Pertinent Lab Results Pertinent Lab Results: Laboratory Tests 04/16/22 05/02/22 09:54 11:34 WBC 3.8 L Hgb 11.7 L Hct 37.1 Plt Count 267 Carbon Dioxide 25 BUN 16 Creatinine 0.86 Assessment and Plan Assessment Anesthesia Assessment: Chart Reviewed Documented by User: Ronnie Salazar MD 05/15/22 17:42 HPI - Anesthesia Eval Consult details Narrative: 71yo F for Upper Endoscopy Chronic hyperkalemia , case discussed with . He will follow-up with the patient and PCP . patient asymptomatic , patient counselled to seek medical attention immediately if starting to feel any symptoms. [facility] Past Medical History Medical History (Updated 05/12/22 @ 15:27 by Poornima Milligan RN) B12 deficiency Cystitis Diabetes Dysuria Hypothyroidism Iron deficiency anemia Osteoporosis Pneumonia Recurrent UTI (urinary tract infection) Vitamin D deficiency Functional capacity: independent ambulation Family History Family History Father No problems noted. Mother Stomach cancer Diabetes mellitus CVD (cardiovascular disease) Heart attack Arthritis of knee Sister COVID-19 Paternal Aunt Cancer Maternal Aunt Cancer Paternal Uncle Cancer Family history of problems with anesthesia: No Surgical History Surgical History (Updated 05/12/22 @ 15:21 by Poornima Milligan RN) History of arthroscopy of left shoulder History of esophagogastroduodenoscopy (EGD) Hx of colonoscopy Hx of gastric bypass History of Problems with Anesthesia: No Social History Social History Household Members: Spouse Housing: House Are you a primary director of healthcare systems to a significant other at home: No Do you presently have visiting nurse or other home services: No (unable to determine) Unable to assess alcohol history related to: Unknown Alcohol intake: current Alcohol intake frequency: does not drink Patient Tobacco Use Status: Never used Tobacco service: No Current occupational status: disabled Meds Allergies Allergy/AdvReac Type Severity Reaction Status Date / Time No Known Allergies Allergy Verified 04/16/22 08:43 [No Known Allergies*] Home Medications Medication Instructions Recorded Confirmed Last Taken Type ascorbic acid (vitamin C) 500 mg 500 mg PO BID 07/17/20 03/13/22 Unknown History tablet (Vitamin C) aspirin 81 mg tablet,delayed 81 mg PO DAILY 07/17/20 03/13/22 Unknown History release montelukast 10 mg tablet 10 mg PO BEDTIME 08/10/20 03/13/22 Unknown History blood sugar diagnostic #10 ea 09/12/20 03/13/22 Unknown History clonazepam 1 mg tablet 1 mg PO TID PRN Anxiety 09/12/20 03/13/22 Unknown History dulaglutide 0.75 mg/0.5 mL 0.75 mg subcut QWEEK 09/12/20 03/13/22 Unknown History subcutaneous pen injector gabapentin 400 mg capsule 400 mg PO TID 09/12/20 03/13/22 Unknown History lancets 33 gauge #100 ea 09/12/20 03/13/22 Unknown History metformin 500 mg tablet,extended 500 mg PO BID 09/12/20 03/13/22 Unknown History release 24 hr venlafaxine 75 mg capsule,extended 75 mg PO DAILY 09/12/20 03/13/22 Unknown History release 24 hr estradiol 0.01% (0.1 mg/gram) 1 g vaginal 3XW 10/11/20 03/13/22 Unknown History vaginal cream zolpidem 10 mg tablet 1 tab PO BEDTIME 03/20/21 03/13/22 Unknown History acetaminophen 500 mg tablet 500 mg PO Q6-8H PRN Pain 12/02/21 03/13/22 Unknown History albuterol sulfate 90 mcg/actuation 0 mcg inhalation DAILY 12/02/21 03/13/22 Unknown History aerosol inhaler (Ventolin HFA) amlodipine 5 mg tablet 5 mg PO QAM 12/02/21 03/13/22 Unknown History levothyroxine 125 mcg tablet 125 mcg PO QAM 12/02/21 03/13/22 Unknown History (Synthroid) mupirocin 2 % topical ointment 1 appl topical TID 12/02/21 03/13/22 Unknown History rosuvastatin 40 mg tablet 40 mg PO DAILY 12/02/21 03/13/22 Unknown History topiramate 50 mg tablet 50 mg PO BEDTIME 12/02/21 03/13/22 Unknown History fluticasone fur. 100 mcg-umeclid 1 ea inhalation DAILY 12/17/21 03/13/22 Unknown History 62.5 mcg-vilant 25 mcg inhalat.powder (Trelegy Ellipta) ipratropium 0.5 mg-albuterol 3 mg 3 ml inhalation QID 12/17/21 03/13/22 Unknown History (2.5 mg base)/3 mL nebulization soln multivitamin-ferrous 1 tab PO DAILY 12/17/21 03/13/22 Unknown History fumarate-folic acid 18 mg-400 mcg tablet (Certavite-Antioxidant) diclofenac sodium 1 % topical gel 1 g topical BID 02/11/22 03/13/22 Unknown History methenamine hippurate 1 gram tablet 1 g PO DAILY 02/11/22 03/13/22 Unknown History venlafaxine 150 mg 150 mg PO DAILY 03/21/22 Unknown History capsule,extended release 24 hr nqeaac-roisttpx-qrdamqk 1 cap PO BID 04/16/22 04/16/22 Unknown History 24,000-76,000-120,000 unit capsule,delayed rel (Creon) Exam Airway Mallampati Class: III TM Dist: >3cm Denture: Upper and Lower Loose/Missing/Broken Teeth: Yes Heart: S1,S2 Lungs: b/l breath sounds Assessment and Plan Assessment Anesthesia Assessment: Anesthesia Plan Discussed Final Anesthetic Review Family History of Problems with Anesthesia: No History of Problems with Anesthesia: No NPO: Yes ASA Class: III Final Preanesthetic Review: Meds/Allgs Chart Reviewed, Consent Obtained/Reviewed and Anes Risks/Benef Reviewed Patient Risk: Intermediate Procedure Risk: Intermediate Anesthetic Plan Anesthetic Plan: MAC: Disposition: Standard PACU
[2022-05-15 12:24] VITALS: BP 141/55; PULSE 62; RESP 16; TEMP 36.7; O2SAT 97
[2022-05-15 12:26] LABS: Glucose, Whole Blood 107 mg/dL (60-115)
[2022-05-15 12:29] LABS: Anion Gap 16 (12-20); Carbon Dioxide 24 mmol/L (22-29); Chloride 107 mmol/L (96-108); Potassium 5.5 mmol/L (3.3-5.1); Sodium 141 mmol/L (135-145)
[2022-05-15] MEDS: Lactated Ringers 1,000 ML 100 ML IVCONT (12:33)
--- NOTE | 2022-05-15 12:58 | MHC.SHP ---
Pre-Procedural Eval Section A Date of Service: 05/15/22 Section B Chief Complaint: reflux,constipation Relevant Family History (Specify if Yes): No Relevant Social History: None Present Medications: see Short Stay Collaborative assessment Medical History: Significant History (B12 deficiency Cystitis Diabetes Dysuria Hypothyroidism Iron deficiency anemia Osteoporosis Pneumonia Recurrent UTI (urinary tract infection) Vitamin D deficiency) History of Previous Operations: Relevant previous surgery/procedure and date(s) (History of arthroscopy of left shoulder History of esophagogastroduodenoscopy (EGD) Hx of colonoscopy Hx of gastric bypass) Allergies: Allergies Allergy/AdvReac Type Severity Reaction Status Date / Time No Known Allergies Allergy Verified 04/16/22 08:43 [No Known Allergies*] Review of Systems Sugical H&P ROS: Negative: Constitution, Cardiovascular, Respiratory, Neurological, Psychiatric, Hem-Onc, Allergic/Immunologic, Gastrointestinal, Genitourinary, Musculoskeletal, Integumentary, Endocrine and Eyes/Ears/Nose/Throat Exam Surgical H&P Exam: Normal: HEENT, Normal: Heart, Normal: Lungs, Normal: Extremities, Normal: Abdomen, Normal: Skin and Normal: Neurological Plan Diagnosis/Plan: Unchanged I have reviewed the history and physical and performed a pertinent physical examination on my patient. No changes have occurred unless specified.
--- NOTE | 2022-05-15 14:35 | W.PM.OPN ---
Operative Note Operative Note Date of Service: 05/15/22 Narrative: Procedure Description: EGD Indication: [] Anesthesia: MAC FLEXIBLE TRANSORAL UPPER GASTROINTESTINAL ENDOSCOPY UPPER ENDOSCOPY Consent: Indications for the procedure and potential complications of bleeding, perforation, reaction to medications and missed diagnosis were discussed with the patient and informed consent was obtained. Instrument: Olympus GIF H 190 J mid size upper endoscope Monitoring: Vital signs and clinical assessment, continuous EKG monitoring, Pulse oximetry, Carbon Dioxide monitoring and blood pressure monitoring were done throughout the procedure. Procedure: The patient was placed in the left lateral decubitis position and pre-procedure medications were administered and a bite block was placed. The endoscope was inserted into the mouth and advanced under direct vision to the third part of duodenum. A careful inspection was made as the upper endoscope was withdrawn including a retroflexed examination of the proximal stomach; Findings and interventions are described below. Hx of gastric bypass Findings: Larynx:normal Esophagus: GE junction at 32 cm, diaphragm hiatus at 34 cm, consistent with 2 cm sliding hiatal hernia, mild esophagitis and schatzki ring noted, bx taken from GEJ and distal esophagus Stomach: Patchy gastric erythema in gastric pouch which was short. Biopsies were obtained. Grade 2 flap valve on retroflexed examination of the cardia. jejunum: Normal bulb, bx taken Intervention: Biopsies as noted above Impression/Findings: gastritis esophagitis schatzki ring PLAN: await path might need PPI (capsule form, opening capsule and mixing contents with apple sauce to improve absorption) if h pylori pos then treat
[2022-05-15 14:40] VITALS: BP 126/60; PULSE 82; RESP 16; TEMP 36.6; O2SAT 99
[2022-05-15 14:55] VITALS: BP 137/55; PULSE 63; RESP 16; TEMP 36.6; O2SAT 100
[2022-05-15 15:10] VITALS: BP 132/59; PULSE 58; RESP 16; TEMP 36.6; O2SAT 100
== END 2022-05-15 16:01 | disposition home or self-care (01) ==
PROVIDERS: Nurse Practitioner; PCP Internal Medicine; Visit Provider Internal Medicine Gastroenterology
PROC: 0DJ08ZZ Inspection of Upper Intestinal Tract, Via Natural or Artificial Opening Endoscopic (ICD-10-PCS; CPT 43235; principal; 2022-05-15 14:10)
DX: K21.9 Gastro-esophageal reflux disease without esophagitis (principal); K59.04 Chronic idiopathic constipation; K20.90 Esophagitis, unspecified without bleeding; K22.2 Esophageal obstruction; K22.4 Dyskinesia of esophagus; K44.9 Diaphragmatic hernia without obstruction or gangrene; K28.9 Gastrojejunal ulcer, unspecified as acute or chronic, without hemorrhage or perforation; D50.9 Iron deficiency anemia, unspecified; M81.0 Age-related osteoporosis without current pathological fracture; E11.9 Type 2 diabetes mellitus without complications; R79.89 Other specified abnormal findings of blood chemistry; Z79.84 Long term (current) use of oral hypoglycemic drugs; Z79.51 Long term (current) use of inhaled steroids; Z79.82 Long term (current) use of aspirin; Z79.899 Other long term (current) drug therapy; Z98.84 Bariatric surgery status
CPT/HCPCS: 43239; 36415; 80051; 82947; 88305; 88342

== ENCOUNTER 2022-05-23 07:56 | Outpatient (REF) | payer OTHER, SELFPAY ==
--- NOTE | ~2022-05-23 | US_ITS ---
EXAMINATION: US COMPLETE ABDOMEN WITH LIVER ELASTOGRAPHY CLINICAL INFORMATION: Other specified abnormal findings of blood chemistry. COMPARISON: None. TECHNIQUE: Real-time imaging of the abdominal viscera. Noninvasive ultrasound liver fibrosis assessment is performed using Dirk ElastPQ point quantification shear wave elastography (2D-SWE) with a C5-2 MHz transducer. Multiple elastography samples are obtained. FINDINGS: PANCREAS: The pancreas appears unremarkable, without masses or ductal dilatation, with the exception of the tail which is obscured by bowel gas. ABDOMINAL AORTA: The proximal and distal aortic segments are normal in caliber. Mid aorta it was obscured by bowel gas. INFERIOR VENA CAVA: Visualized portions are normal. LIVER: Normal. The liver demonstrates normal size, contour and echogenicity. No focal lesion or intrahepatic biliary duct dilatation. The right lobe measures 13.2 cm in length. The left lobe measures 10.6 cm in length. Portal flow is hepatopedal. Shear wave liver elastography median stiffness is 1.38 m/s (reference: normal median stiffness is 1.3 m/s or less). IQR/median stiffness to assess sampling precision is 0.14 (reference: good quality data set is IQR/median stiffness of 0.15 or less). GALLBLADDER: Status post cholecystectomy COMMON BILE DUCT: Normal in caliber measuring 0.3 cm in diameter. RIGHT KIDNEY: No hydronephrosis. No renal calculi or focal parenchymal lesions. The kidney measures 9.4 cm in maximum dimension. LEFT KIDNEY: No hydronephrosis. No renal calculi or focal parenchymal lesions. The kidney measures 10.5 cm in maximum dimension. SPLEEN: Normal. The spleen measures 8.7 cm in maximum dimension. FREE FLUID: None. US/US abdomen comp w elastography IMPRESSION: 1. Echogenic liver consistent with hepatic steatosis. 2. Liver elastography: In the absence of other known clinical signs, measurements rule out compensated advanced chronic liver disease. If there are known clinical signs, further testing may be needed for confirmation. REFERENCE: Society of Radiologists in Ultrasound Liver Stiffness Thresholds (2020): LIVER STIFFNESS THRESHOLDS: *Liver Stiffness equal or less than 1.3 m/s: High probability of being normal. *Liver Stiffness less than 1.7 m/s: In the absence of other known clinical signs, rules out compensated advanced chronic liver disease. *Liver Stiffness 1.7-2.1 m/s: Suggestive of compensated advanced chronic liver disease but need further test for confirmation. *Liver Stiffness over 2.1 m/s: Rules in compensated advanced chronic liver disease. *Liver Stiffness over 2.4 m/s: Suggestive of clinically significant portal hypertension. QUALITY OF DATA SET: *IQR/Median value equal or less than 0.15 implies a quality data set. *IQR/Median value over 0.15 implies a poor quality data set. SIGNIFICANT CHANGE FROM PRIOR EXAM: Significant change if liver stiffness measurement is 10% or greater from prior exam. OTHER CONSIDERATIONS: The stage of liver fibrosis may be overestimated in the setting of acute hepatitis, liver inflammation, elevated liver function tests, hepatic vascular congestion, obstructive cholestasis, non-fasting state, and infiltrative diseases such as amyloidosis and lymphoma. In some patients with NAFLD, the liver stiffness thresholds for compensated advanced chronic liver disease may be lower. In causes other than viral hepatitis and NAFLD, liver stiffness thresholds are not well established.
== END 2022-05-23 07:57 | disposition home or self-care (01) ==
LOC: HO.US 07:56
PROVIDERS: Visit Provider Nurse Practitioner
DX: R79.89 Other specified abnormal findings of blood chemistry (principal)
CPT/HCPCS: 76705; 76981

== ENCOUNTER → 2022-05-27 09:17 | Outpatient (BNVA) | payer OTHER, SELFPAY | PROVIDERS: PCP Internal Medicine; Visit Provider Nurse Practitioner | DX: K59.04 Chronic idiopathic constipation (principal); K21.9 Gastro-esophageal reflux disease without esophagitis; B37.81 Candidal esophagitis; B37.0 Candidal stomatitis; K75.81 Nonalcoholic steatohepatitis (NASH) | CPT/HCPCS: 99212 ==

== ENCOUNTER 2022-05-30 11:47 | Day surgery (SDC) | payer OTHER, SELFPAY ==
--- NOTE | 2022-05-29 10:32 | HO.ANESPROP2 ---
Documented by User: Jessica Martel NP 05/29/22 10:48 HPI - Anesthesia Eval Consult details Narrative: 71yo F for L5-S1 Interlaminar Epidural Steroid Injection midline s/p EGD 05/15/22 with MAC Per anesthesia preop eval Chronic hyperkalemia , ? case discussed with . He will follow-up with the patient and PCP . patient asymptomatic , patient counselled to seek medical attention immediately if starting to feel any symptoms. [facility] Active Problems Active Problems: All Active Problems (Updated 05/27/22 @ 17:07 by ABE Breen) VAZQUEZ (nonalcoholic steatohepatitis) (Acute) Candidiasis of mouth and esophagus (Acute) Anemia (Acute) GERD (gastroesophageal reflux disease) (Acute) Chronic idiopathic constipation (Acute) Lumbago with sciatica (Acute) Sepsis (Acute) Dysphagia (Acute) Chronic UTI (urinary tract infection) (Acute) Anastomotic ulcer (Acute) Lumbar spondylosis (Acute) Right lumbar radiculopathy (Acute) Recurrent falls while walking (Acute) Coccygodynia (Acute) Right anterior knee pain (Acute) Patellofemoral arthralgia of right knee (Acute) Chronic left shoulder pain (Acute) Radiculopathy of cervical spine (Acute) Abnormal findings on diagnostic imaging of musculoskeletal system (Acute) Nausea and vomiting (Acute) Lumbar degenerative disc disease (Acute) Dysuria (Acute) Vitamin D deficiency (Acute) Hypothyroidism (Acute) Osteoporosis (Chronic) Past Medical History Medical History B12 deficiency Cystitis Diabetes Dysuria Esophageal candidiasis Esophageal dysmotilities Hypothyroidism IBS (irritable bowel syndrome) Iron deficiency anemia Osteoporosis Pneumonia Recurrent UTI (urinary tract infection) Vitamin D deficiency Family History Family History Father No problems noted. Mother Stomach cancer Diabetes mellitus CVD (cardiovascular disease) Heart attack Arthritis of knee Sister COVID-19 Paternal Aunt Cancer Maternal Aunt Cancer Paternal Uncle Cancer Family history of problems with anesthesia: No Surgical History Surgical History History of arthroscopy of left shoulder History of esophagogastroduodenoscopy (EGD) Hx of colonoscopy Hx of gastric bypass History of Problems with Anesthesia: No Social History Social History Household Members: Spouse Housing: House Are you a primary home health care provider to a significant other at home: No Do you presently have visiting nurse or other home services: No (unable to determine) Unable to assess alcohol history related to: Unknown Alcohol intake: current Alcohol intake frequency: does not drink Patient Tobacco Use Status: Never used Tobacco Are you DNR?: No Advance Directives: No Advance Directives Information Provided: Yes Nutrition Risks: No Nutritional Risk service: No Current occupational status: disabled Meds Allergies Allergy/AdvReac Type Severity Reaction Status Date / Time No Known Allergies Allergy Verified 05/30/22 14:51 [No Known Allergies*] Home Medications Medication Instructions Recorded Confirmed Last Taken Type ascorbic acid (vitamin C) 500 mg 500 mg PO BID 07/17/20 05/30/22 Unknown History tablet (Vitamin C) aspirin 81 mg tablet,delayed 81 mg PO DAILY 07/17/20 05/30/22 05/15/22 History release montelukast 10 mg tablet 10 mg PO BEDTIME 08/10/20 05/30/22 Unknown History blood sugar diagnostic #10 ea 09/12/20 03/13/22 Unknown History clonazepam 1 mg tablet 1 mg PO TID PRN Anxiety 09/12/20 05/30/22 Unknown History dulaglutide 0.75 mg/0.5 mL 0.75 mg subcut QWEEK 09/12/20 05/30/22 Unknown History subcutaneous pen injector gabapentin 400 mg capsule 400 mg PO TID 09/12/20 05/30/22 Unknown History lancets 33 gauge #100 ea 09/12/20 03/13/22 Unknown History metformin 500 mg tablet,extended 500 mg PO BID 09/12/20 05/30/22 Unknown History release 24 hr venlafaxine 75 mg capsule,extended 75 mg PO DAILY 09/12/20 05/30/22 Unknown History release 24 hr estradiol 0.01% (0.1 mg/gram) 1 g vaginal 3XW 10/11/20 05/30/22 Unknown History vaginal cream zolpidem 10 mg tablet 1 tab PO BEDTIME 03/20/21 05/30/22 Unknown History acetaminophen 500 mg tablet 500 mg PO Q6-8H PRN Pain 12/02/21 05/30/22 Unknown History albuterol sulfate 90 mcg/actuation 0 mcg inhalation DAILY 12/02/21 05/30/22 Unknown History aerosol inhaler (Ventolin HFA) amlodipine 5 mg tablet 5 mg PO QAM 12/02/21 05/30/22 Unknown History levothyroxine 125 mcg tablet 125 mcg PO QAM 12/02/21 05/30/22 Unknown History (Synthroid) mupirocin 2 % topical ointment 1 appl topical TID 12/02/21 05/30/22 Unknown History rosuvastatin 40 mg tablet 40 mg PO DAILY 12/02/21 05/30/22 Unknown History topiramate 50 mg tablet 50 mg PO BEDTIME 12/02/21 05/30/22 Unknown History fluticasone fur. 100 mcg-umeclid 1 ea inhalation DAILY 12/17/21 05/30/22 Unknown History 62.5 mcg-vilant 25 mcg inhalat.powder (Trelegy Ellipta) ipratropium 0.5 mg-albuterol 3 mg 3 ml inhalation QID 12/17/21 05/30/22 Unknown History (2.5 mg base)/3 mL nebulization soln multivitamin-ferrous 1 tab PO DAILY 12/17/21 05/30/22 Unknown History fumarate-folic acid 18 mg-400 mcg tablet (Certavite-Antioxidant) diclofenac sodium 1 % topical gel 1 g topical BID 02/11/22 05/30/22 Unknown History methenamine hippurate 1 gram tablet 1 g PO DAILY 02/11/22 05/30/22 Unknown History venlafaxine 150 mg 150 mg PO DAILY 03/21/22 05/30/22 Unknown History capsule,extended release 24 hr wirsow-acooaayv-jsjrmoj 1 cap PO BID 04/16/22 05/30/22 Unknown History 24,000-76,000-120,000 unit capsule,delayed rel (Creon) furosemide 20 mg tablet 20 mg PO DAILY 05/27/22 05/30/22 Unknown History Exam Exam Date and Time: May 29, 2022 1032 Pertinent Lab Results Pertinent Lab Results: Laboratory Tests 04/16/22 05/02/22 05/15/22 09:54 11:34 11:48 WBC 3.8 L Hgb 11.7 L Hct 37.1 Plt Count 267 Carbon Dioxide 24 BUN 16 Creatinine 0.86 Assessment and Plan Assessment Anesthesia Assessment: Chart Reviewed Final Anesthetic Review Family History of Problems with Anesthesia: No History of Problems with Anesthesia: No Documented by User: Yennifer Harris MD 05/30/22 16:52 [facility] Past Medical History Medical History B12 deficiency Cystitis Diabetes Dysuria Esophageal candidiasis Esophageal dysmotilities Hypothyroidism IBS (irritable bowel syndrome) Iron deficiency anemia Osteoporosis Pneumonia Recurrent UTI (urinary tract infection) Vitamin D deficiency Family History Family History Father No problems noted. Mother Stomach cancer Diabetes mellitus CVD (cardiovascular disease) Heart attack Arthritis of knee Sister COVID-19 Paternal Aunt Cancer Maternal Aunt Cancer Paternal Uncle Cancer Surgical History Surgical History History of arthroscopy of left shoulder History of esophagogastroduodenoscopy (EGD) Hx of colonoscopy Hx of gastric bypass Social History Social History Household Members: Spouse Housing: House Are you a primary home health care provider to a significant other at home: No Do you presently have visiting nurse or other home services: No (unable to determine) Unable to assess alcohol history related to: Unknown Alcohol intake: current Alcohol intake frequency: does not drink Patient Tobacco Use Status: Never used Tobacco Are you DNR?: No Advance Directives: No Advance Directives Information Provided: Yes Nutrition Risks: No Nutritional Risk service: No Current occupational status: disabled Meds Allergies Allergy/AdvReac Type Severity Reaction Status Date / Time No Known Allergies Allergy Verified 05/30/22 14:51 [No Known Allergies*] Home Medications Medication Instructions Recorded Confirmed Last Taken Type ascorbic acid (vitamin C) 500 mg 500 mg PO BID 07/17/20 05/30/22 Unknown History tablet (Vitamin C) aspirin 81 mg tablet,delayed 81 mg PO DAILY 07/17/20 05/30/22 05/15/22 History release montelukast 10 mg tablet 10 mg PO BEDTIME 08/10/20 05/30/22 Unknown History blood sugar diagnostic #10 ea 09/12/20 03/13/22 Unknown History clonazepam 1 mg tablet 1 mg PO TID PRN Anxiety 09/12/20 05/30/22 Unknown History dulaglutide 0.75 mg/0.5 mL 0.75 mg subcut QWEEK 09/12/20 05/30/22 Unknown History subcutaneous pen injector gabapentin 400 mg capsule 400 mg PO TID 09/12/20 05/30/22 Unknown History lancets 33 gauge #100 ea 09/12/20 03/13/22 Unknown History metformin 500 mg tablet,extended 500 mg PO BID 09/12/20 05/30/22 Unknown History release 24 hr venlafaxine 75 mg capsule,extended 75 mg PO DAILY 09/12/20 05/30/22 Unknown History release 24 hr estradiol 0.01% (0.1 mg/gram) 1 g vaginal 3XW 10/11/20 05/30/22 Unknown History vaginal cream zolpidem 10 mg tablet 1 tab PO BEDTIME 03/20/21 05/30/22 Unknown History acetaminophen 500 mg tablet 500 mg PO Q6-8H PRN Pain 12/02/21 05/30/22 Unknown History albuterol sulfate 90 mcg/actuation 0 mcg inhalation DAILY 12/02/21 05/30/22 Unknown History aerosol inhaler (Ventolin HFA) amlodipine 5 mg tablet 5 mg PO QAM 12/02/21 05/30/22 Unknown History levothyroxine 125 mcg tablet 125 mcg PO QAM 12/02/21 05/30/22 Unknown History (Synthroid) mupirocin 2 % topical ointment 1 appl topical TID 12/02/21 05/30/22 Unknown History rosuvastatin 40 mg tablet 40 mg PO DAILY 12/02/21 05/30/22 Unknown History topiramate 50 mg tablet 50 mg PO BEDTIME 12/02/21 05/30/22 Unknown History fluticasone fur. 100 mcg-umeclid 1 ea inhalation DAILY 12/17/21 05/30/22 Unknown History 62.5 mcg-vilant 25 mcg inhalat.powder (Trelegy Ellipta) ipratropium 0.5 mg-albuterol 3 mg 3 ml inhalation QID 12/17/21 05/30/22 Unknown History (2.5 mg base)/3 mL nebulization soln multivitamin-ferrous 1 tab PO DAILY 12/17/21 05/30/22 Unknown History fumarate-folic acid 18 mg-400 mcg tablet (Certavite-Antioxidant) diclofenac sodium 1 % topical gel 1 g topical BID 02/11/22 05/30/22 Unknown History methenamine hippurate 1 gram tablet 1 g PO DAILY 02/11/22 05/30/22 Unknown History venlafaxine 150 mg 150 mg PO DAILY 03/21/22 05/30/22 Unknown History capsule,extended release 24 hr nwhkyj-vahorbpd-cghmhoc 1 cap PO BID 04/16/22 05/30/22 Unknown History 24,000-76,000-120,000 unit capsule,delayed rel (Creon) furosemide 20 mg tablet 20 mg PO DAILY 05/27/22 05/30/22 Unknown History Exam Airway Loose/Missing/Broken Teeth: Yes, Upper and Lower Heart: rr Lungs: cta Assessment and Plan Final Anesthetic Review ASA Class: II Final Preanesthetic Review: No Changes in Pt Med Stat, Meds/Allgs Chart Reviewed, Consent Obtained/Reviewed and Anes Risks/Benef Reviewed Patient Risk: Low Procedure Risk: Low Anesthetic Plan Anesthetic Plan: MAC: Disposition: Standard PACU
--- NOTE | ~2022-05-30 | FL_ITS ---
EXAMINATION: XR FLUOROSCOPY WITH IMAGES CLINICAL INFORMATION: Intralaminar epidural steroid injection at L5-S1. COMPARISON: None. TECHNIQUE: Fluoroscopy Supervised By: Dr. Stiven Pizano Fluoroscopy Time: 0.4 minutes. Cumulative Dose: 9.25 mGy. DAP: 1.83 Gycm2. Images: 2. FINDINGS: Fluoroscopy guidance was provided to referring physician for pain management. There is contrast visualized within the spinal canal likely subdural. Visualized lumbar vertebral heights and disc spaces are normal. FL/FL guidance in OR IMPRESSION: Fluoroscopy guidance was provided to referring physician for pain management.
[2022-05-30 14:04] LABS: Glucose, Whole Blood 94 mg/dL (60-115)
[2022-05-30 14:29] VITALS: BMI 25.2
[2022-05-30 14:31] VITALS: BP 141/54; PULSE 64; RESP 18; TEMP 36.9; O2SAT 99
[2022-05-30] MEDS: Lactated Ringers 1,000 ML 100 ML IVCONT (14:32)
[2022-05-30 15:51] LABS: Anion Gap 12 (12-20); Carbon Dioxide 23 mmol/L (22-29); Chloride 112 mmol/L (96-108); Potassium 5.8 mmol/L (3.3-5.1); Sodium 141 mmol/L (135-145)
--- NOTE | 2022-05-30 16:01 | MHC.SHP ---
Pre-Procedural Eval Section A Date of Service: 05/30/22 The patient is an INPATIENT: No Changes since office visit: Yes Patient answered all questions The History & Physical has been completed within 30 days and I have reviewed it.: No Section B Chief Complaint: Spinal stenosis, lumbar region Details of Present Illness: as above Relevant Social History: None Present Medications: None Medical History: No relevant PMH History of Previous Operations: No relevant previous surgery Allergies: Allergies Allergy/AdvReac Type Severity Reaction Status Date / Time No Known Allergies Allergy Verified 05/30/22 14:51 [No Known Allergies*] Review of Systems Sugical H&P ROS: Negative: Constitution, Cardiovascular, Respiratory, Neurological, Psychiatric, Hem-Onc, Allergic/Immunologic, Gastrointestinal, Genitourinary, Musculoskeletal, Integumentary, Endocrine and Eyes/Ears/Nose/Throat Exam Surgical H&P Exam: Normal: HEENT, Normal: Heart, Normal: Lungs, Normal: Extremities, Normal: Abdomen, Normal: Skin and Normal: Neurological Plan Diagnosis/Plan: Unchanged I have reviewed the history and physical and performed a pertinent physical examination on my patient. No changes have occurred unless specified. Time Spent With Patient Time: Total time managing care of this patient today _10___ minutes.
[2022-05-30 17:23] VITALS: BP 125/62; PULSE 69; RESP 16; TEMP 37.1; O2SAT 100
--- NOTE | 2022-05-30 17:23 | PM.OP ---
Brief Operative Note Date of Service: 05/30/22 Pre-op diagnosis: disc degeneration lumbar with radiculopathy Post-op diagnosis: same Procedure: Interlaminar L5- S1 Epidural steroid injection Surgeon: Stiven Pizano MD Was an User Acceptance Tester used for this Procedure?: No Estimated blood loss (mL): 0 Condition: stable Disposition: PACU
--- NOTE | 2022-05-30 17:24 | P.OP_ITS ---
Operative Note Operative Note Date of Service: 05/30/22 Narrative: Interlaminar L5-S1 epidural steroid injection. Informed consent was thoroughly explained to the patient using hospital certified speech and language specialist arm under. All risks and benefits were delineated. All questions were answered. The patient was taking into the operating room where she was positioned prone wrapping table with pillow under her abdomen. The lower back was prepped with ChloraPrep and draped with sterile utility towels. C-arm was brought over the operating field and image of the L5 and S1 vertebra as were demonstrated on the screen. Tilting the C-arm cephalad the sq image of L5 vertebra was demonstrated on the screen. The target was chosen as the most medial upper portion of the lamina office 1 closed as much as possible to the spinous process. Projection of the point of interest to the skin was injected with lidocaine 1% 2 mL. After that 22 gauge 3 and half inch Touhy needle was advanced into the back of the patient under anterior posterior and lateral view using loss of resistance technique to air to locate epidural space. When on the lateral view the tip of the needle was advanced to the most posterior portion of the spinal canal loss of resistant was still not detected, injection of the contrast was performed and demonstrated intrathecal spread of the contrast. After that the needle gently withdrawn few mm and repeat of the injection of the contrast was performed this time demonstrating epidural space. After that injection of the 5 cc of lidocaine preservative-free mixed with Kenalog 40 mg was performed into the patient's epidural space. The patient tolerated procedure well. She was taking outside of the operating room to recovery room where she recovered uneventfully.
[2022-05-30 17:38] VITALS: BP 134/70; PULSE 71; RESP 16; TEMP 36.9; O2SAT 100
[2022-05-30 17:53] VITALS: BP 148/60; PULSE 66; RESP 18; TEMP 36.4; O2SAT 100
== END 2022-05-30 18:10 | disposition home or self-care (01) ==
PROVIDERS: Nurse Practitioner; PCP Internal Medicine; Visit Provider Anesthesiology
PROC: 3E0R33Z Introduction of Anti-inflammatory into Spinal Canal, Percutaneous Approach (ICD-10-PCS; CPT 62323; principal; 2022-05-30 13:30)
DX: M48.062 Spinal stenosis, lumbar region with neurogenic claudication (principal); M47.816 Spondylosis without myelopathy or radiculopathy, lumbar region; M51.36 Other intervertebral disc degeneration, lumbar region; M81.0 Age-related osteoporosis without current pathological fracture; E55.9 Vitamin D deficiency, unspecified; E53.8 Deficiency of other specified B group vitamins; D50.9 Iron deficiency anemia, unspecified; E11.9 Type 2 diabetes mellitus without complications; G47.9 Sleep disorder, unspecified; N39.0 Urinary tract infection, site not specified; Z87.01 Personal history of pneumonia (recurrent); Z91.81 History of falling; Z79.4 Long term (current) use of insulin; Z79.82 Long term (current) use of aspirin; Z79.899 Other long term (current) drug therapy
CPT/HCPCS: 62323; 36415; 80051; 82947; J3301

== ENCOUNTER → 2022-07-03 08:52 | Outpatient (BNVA) | payer OTHER, SELFPAY | PROVIDERS: PCP Internal Medicine; Visit Provider Nurse Practitioner Family | DX: M53.3 Sacrococcygeal disorders, not elsewhere classified (principal); M25.552 Pain in left hip; M47.816 Spondylosis without myelopathy or radiculopathy, lumbar region; M51.36 Other intervertebral disc degeneration, lumbar region; M48.062 Spinal stenosis, lumbar region with neurogenic claudication; M81.0 Age-related osteoporosis without current pathological fracture | CPT/HCPCS: 99212 ==

== ENCOUNTER → 2022-07-04 07:31 | Outpatient (REF) | payer OTHER, SELFPAY ==
--- NOTE | ~2022-07-04 | NM_ITS ---
Myocardial perfusion study Indication: Chest pain to evaluate for myocardial ischemia Technique: The patient was brought in for a Lexiscan perfusion study on 07/04/2022. Patient performed low-level exercise and was injected 0.4 mg of Lexiscan intravenously. Within a minute of injection, 25 mCi of sestamibi was given intravenously. Images were obtained using the SPECT gamma camera interlaced with the gating device. Images were obtained in supine position. Resting perfusion study was performed on 07/07/2022. Patient was administered 25 mCi of sestamibi intravenously at rest. Images were then obtained in supine position. Images obtained with and without CT attenuation. Total DLP 75 mGy-cm. Images were processed with the software and compared side to side in short axis, horizontal long axis and vertical long axis views. Findings: The stress perfusion study showed non attenuated images show minimal thinning of the basal and mid inferior wall of the LV myocardium. Remainder of the LV myocardium perfused. There is minimally reduced uptake in the apex of the LV myocardium.. The gated study shows normal LV systolic function with visually estimated LVEF of greater than 60%. LV cavity is normal in size. The gated study shows normal systolic wall thickening and contraction of segments. Resting study shows non attenuated images show improved uptake in the inferior wall. Attenuation corrected images show improved uptake in the apex. Gating at rest reveals normal systolic wall motion with ejection fraction at 57%. The findings are consistent with equivocal for apical ischemia. NM/NM gerardo perf SPECT rest & str Impression: 1. Myocardial perfusion imaging study shows equivocal for apical ischemia 2. Gated LVEF is 70% 3. Transient ischemic dilatation not present EKG is nondiagnostic for ischemia
--- NOTE | ~2022-07-04 | XR_ITS ---
EXAMINATION: XR BILATERAL HIPS WITH AP PELVIS CLINICAL INFORMATION: Pain COMPARISON: None TECHNIQUE: AP view of the pelvis and single views of each hip were obtained. FINDINGS: The bones and soft tissues are normal. No fracture. Sacroiliac and hip joints are normal. Pubic symphysis is normal. No abnormal soft tissue calcifications. XR/XR hip BI w PEL1V IMPRESSION: Normal pelvis and hips.
--- NOTE | 2022-07-04 07:35 | CA_ITS ---
Acquisition Time: 2022-07-04 08:03:03 Total Exercise Time: 00:02:00 Test Indications: CP Medications: SEE CHART Protocol: LEXISCAN Max HR: 088 BPM 58% of Pred: 150 BPM Max BP: 120/078 mmHG Max Work Load: 1.0 METS Pharmacological stress test with Lexiscan injection, while sitting and kicking her legs, without anginal symptoms, without arrythmia, with normotensive response to injection, with nondiagnostic EKG for ischemia. In recovery she was treated with aminophylline 75mg IVP to reverse Lexiscan. Nuclear images pending. Test reviewed with Dr Colindres. Referred By: Greg Leonard Overread By: BLANCA MASTERS
== END ==
LOC: HO.CARD 07:31
PROVIDERS: PCP Internal Medicine; Visit Provider Internal Medicine Cardiovascular Disease
DX: R07.9 Chest pain, unspecified (principal); M53.3 Sacrococcygeal disorders, not elsewhere classified; M25.552 Pain in left hip
CPT/HCPCS: 73521; 78452; 93017; A9500; J0280; J2785

== ENCOUNTER → 2022-07-08 09:18 | Outpatient (BNVA) | payer OTHER, SELFPAY | PROVIDERS: PCP Internal Medicine; Visit Provider Nurse Practitioner | DX: K59.04 Chronic idiopathic constipation (principal); K75.81 Nonalcoholic steatohepatitis (NASH); K21.9 Gastro-esophageal reflux disease without esophagitis; Z79.899 Other long term (current) drug therapy | CPT/HCPCS: 99212 ==

== ENCOUNTER 2022-08-08 09:03 | Outpatient (REF) | payer OTHER, SELFPAY ==
[2022-08-08 09:11] LABS: MANUAL DIFF FLAG NO
[2022-08-08 09:21] LABS: Basophils Percent Auto 0.9 % (0-2); Eosinophils Absolute Auto 0.1 X10*3/uL (0.0-0.4); Eosinophils Percent Auto 3.1 % (0-4); Hematocrit 39.2 % (37.0-47.0); Hemoglobin 12.4 g/dl (12.0-16.0); Imm Gran Abs Auto 0.01 X10*3/uL (0.00-0.03); Imm Gran Pct Auto 0.2 % (0.0-0.4); Lymphocytes Percent Auto 43.8 % (20-40); Mean Corpuscular HGB Conc 31.6 g/dl (31.0-35.0); Mean Corpuscular Hemoglobin 29.4 pg (27.0-33.0); Mean Corpuscular Volume 92.9 fL (80.0-98.0); Monocytes Absolute Auto 0.5 X10*3/uL (0.1-1.2); Monocytes Percent Auto 10.3 % (2-11); Neutrophils Absolute Auto 1.9 x10*3/uL (2.0-8.3); Neutrophils Percent Auto 41.7 % (45-73); Platelet Count 286 X10*3/uL (160-400); Red Blood Count 4.22 X10*6/uL (4.20-5.50); Red Cell Distribution Width 15.3 % (11.0-16.0); White Blood Count 4.5 X10*3/uL (4.8-10.8)
[2022-08-08 09:59] LABS: Alanine Aminotransferase 26 U/L (0-31); Alkaline Phosphatase 68 U/L (39-117); Anion Gap 10 (12-20); Aspartate Amino Transferase 29 U/L (5-31); Bilirubin Total 0.6 mg/dL (0.0-1.0); Blood Urea Nitrogen 11 mg/dL (9-16); Calcium 8.8 mg/dL (8.4-10.2); Carbon Dioxide 24 mmol/L (22-29); Chloride 113 mmol/L (96-108); Estimated Glomerular Filt Rate > 60; Glucose Random 164 mg/dL (60-115); Potassium 4.2 mmol/L (3.3-5.1); Sodium 143 mmol/L (135-145); Total Protein 6.2 g/dL (6.5-8.0)
[2022-08-08 10:31] LABS: Ferritin 20 ng/mL (10-250); Vitamin B12 522 pg/mL (200-900)
== END 2022-08-08 09:04 | disposition home or self-care (01) ==
LOC: HO.LAB 09:03
PROVIDERS: PCP Internal Medicine; Visit Provider Internal Medicine Medical Oncology
DX: D64.9 Anemia, unspecified (principal)
CPT/HCPCS: 36415; 80053; 82607; 82728; 85025

== ENCOUNTER 2022-09-18 09:08 | Outpatient (REF) | payer OTHER, SELFPAY ==
[2022-09-18 14:03] LABS: Amphetamine Screen Urine Not Detected (Not Detect); Barbiturates, Urine Not Detected (Not Detect); Benzodiazepines Screen Urine Not Detected (Not Detect); Cannabinoid Screen Urine Not Detected (Not Detect); Cocaine Screen Urine Not Detected (Not Detect); Fentanyl, urine Not Detected (Not Detect); Opiate Screen Urine Not Detected (Not Detect); Phencyclidine Screen Urine Not Detected (Not Detect)
[2022-09-24 07:52] LABS: Desmethyltramadol, Ur >10000
[2022-09-24 07:54] LABS: Tramadol, Ur >10000
== END 2022-09-18 09:09 | disposition home or self-care (01) ==
LOC: HO.LAB 09:08
PROVIDERS: PCP Internal Medicine; Visit Provider Nurse Practitioner Family
DX: D50.9 Iron deficiency anemia, unspecified (principal); Z51.81 Encounter for therapeutic drug level monitoring; Z79.899 Other long term (current) drug therapy
CPT/HCPCS: 36415; 80307; 80373

== ENCOUNTER 2022-10-09 08:18 | Outpatient (REF) | payer OTHER, SELFPAY ==
--- NOTE | ~2022-10-09 | XR_ITS ---
EXAMINATION: XR KNEE, RIGHT CLINICAL INFORMATION: Pain COMPARISON: None available. TECHNIQUE: AP, lateral and sunrise views of the right knee are submitted. FINDINGS: Bones and soft tissues are normal. No fracture or joint effusion. Alignment is anatomic. Joint spaces are well maintained. No abnormal soft tissue calcification. There are diffuse atherosclerotic calcifications. XR/XR knee RT 3V IMPRESSION: Normal right knee. EXAMINATION: XR KNEE, LEFT CLINICAL INFORMATION: Pain. COMPARISON: None available. TECHNIQUE: AP, lateral and sunrise views of the left knee are submitted. FINDINGS: Bones and soft tissues are normal. No fracture or joint effusion. Alignment is anatomic. Joint spaces are well maintained. No abnormal soft tissue calcification. There are diffuse atherosclerotic calcifications. IMPRESSION: Normal left knee.
--- NOTE | ~2022-10-09 | XR_ITS ---
EXAMINATION: XR KNEE, RIGHT CLINICAL INFORMATION: Pain COMPARISON: None available. TECHNIQUE: AP, lateral and sunrise views of the right knee are submitted. FINDINGS: Bones and soft tissues are normal. No fracture or joint effusion. Alignment is anatomic. Joint spaces are well maintained. No abnormal soft tissue calcification. There are diffuse atherosclerotic calcifications. XR/XR knee LT 3V IMPRESSION: Normal right knee. EXAMINATION: XR KNEE, LEFT CLINICAL INFORMATION: Pain. COMPARISON: None available. TECHNIQUE: AP, lateral and sunrise views of the left knee are submitted. FINDINGS: Bones and soft tissues are normal. No fracture or joint effusion. Alignment is anatomic. Joint spaces are well maintained. No abnormal soft tissue calcification. There are diffuse atherosclerotic calcifications. IMPRESSION: Normal left knee.
== END 2022-10-09 08:19 | disposition home or self-care (01) ==
LOC: HO.XRAY 08:18
PROVIDERS: PCP Internal Medicine; Visit Provider Nurse Practitioner Family
DX: M25.561 Pain in right knee (principal); M25.562 Pain in left knee; M51.36 Other intervertebral disc degeneration, lumbar region; M54.12 Radiculopathy, cervical region; M47.816 Spondylosis without myelopathy or radiculopathy, lumbar region; M54.40 Lumbago with sciatica, unspecified side
CPT/HCPCS: 73562; 99212

== ENCOUNTER → 2022-10-22 10:04 | Day surgery (SDC) | payer OTHER, SELFPAY ==
--- NOTE | 2022-10-21 10:55 | HO.ANESPROP2 ---
Documented by User: Jessica Martel NP 10/21/22 11:02 HPI - Anesthesia Eval Consult details Narrative: 71yo F for Bilateral Minimally Invasive Lumbar Decompression of L5-S1 s/p epidural injection 05/2022 with MAC Cardiac office visit 09/2022: recent eval for CP, palps with cardiac cath and echo nml. Started on imdur PMFSH Active Problems Active Problems: All Active Problems (Updated 10/20/22 @ 10:50 by Petty Prakash RN) Anemia (Acute) GERD (gastroesophageal reflux disease) (Acute) Chronic idiopathic constipation (Acute) Lumbago with sciatica (Acute) Sepsis (Acute) Dysphagia (Acute) Chronic UTI (urinary tract infection) (Acute) Anastomotic ulcer (Acute) Lumbar spondylosis (Acute) Right lumbar radiculopathy (Acute) Recurrent falls while walking (Acute) Coccygodynia (Acute) Right anterior knee pain (Acute) Patellofemoral arthralgia of right knee (Acute) Chronic left shoulder pain (Acute) Radiculopathy of cervical spine (Acute) Abnormal findings on diagnostic imaging of musculoskeletal system (Acute) Nausea and vomiting (Acute) Lumbar degenerative disc disease (Acute) Candidiasis of mouth and esophagus (Acute) VAZQUEZ (nonalcoholic steatohepatitis) (Acute) Medication monitoring encounter (Acute) Sacroiliac joint pain (Acute) Left hip pain (Acute) Dysuria (Acute) Vitamin D deficiency (Acute) Hypothyroidism (Acute) Osteoporosis (Chronic) Past Medical History Medical History (Updated 10/20/22 @ 10:50 by Petty Prakash RN) B12 deficiency Cystitis Diabetes Dysuria Esophageal candidiasis Esophageal dysmotilities Hypothyroidism IBS (irritable bowel syndrome) Iron deficiency anemia ANGIE (obstructive sleep apnea) Osteoporosis Pneumonia Recurrent UTI (urinary tract infection) Vitamin D deficiency Family History Family History Father No problems noted. Mother Stomach cancer Diabetes mellitus CVD (cardiovascular disease) Heart attack Arthritis of knee Sister COVID-19 Paternal Aunt Cancer Maternal Aunt Cancer Paternal Uncle Cancer Family history of problems with anesthesia: No Surgical History Surgical History History of arthroscopy of left shoulder History of esophagogastroduodenoscopy (EGD) Hx of colonoscopy Hx of gastric bypass History of Problems with Anesthesia: No Social History Social History Household Members: Spouse Housing: House Are you a primary healthcare project manager to a significant other at home: No Do you presently have visiting nurse or other home services: No (unable to determine) Unable to assess alcohol history related to: Unknown Alcohol intake: current Alcohol intake frequency: does not drink Patient Tobacco Use Status: Never used Tobacco Use of substances other than those prescribed or required for medical reasons: No Are you DNR?: No Advance Directives: No Advance Directives Information Provided: Yes service: No Current occupational status: disabled Meds Allergies Allergy/AdvReac Type Severity Reaction Status Date / Time No Known Allergies Allergy Verified 10/09/22 09:26 [No Known Allergies*] Home Medications Medication Instructions Recorded Confirmed Last Taken Type ascorbic acid (vitamin C) 500 mg 500 mg PO BID 07/17/20 10/09/22 Unknown History tablet (Vitamin C) aspirin 81 mg tablet,delayed 81 mg PO DAILY 07/17/20 10/09/22 05/15/22 History release montelukast 10 mg tablet 10 mg PO BEDTIME 08/10/20 10/09/22 Unknown History blood sugar diagnostic #10 ea 09/12/20 10/09/22 Unknown History clonazepam 1 mg tablet 1 mg PO TID PRN Anxiety 09/12/20 10/09/22 Unknown History dulaglutide 0.75 mg/0.5 mL 0.75 mg subcut QWEEK 09/12/20 10/09/22 Unknown History subcutaneous pen injector gabapentin 400 mg capsule 400 mg PO TID 09/12/20 10/09/22 Unknown History lancets 33 gauge #100 ea 09/12/20 10/09/22 Unknown History metformin 500 mg tablet,extended 500 mg PO BID 09/12/20 10/09/22 Unknown History release 24 hr venlafaxine 75 mg capsule,extended 75 mg PO DAILY 09/12/20 10/09/22 Unknown History release 24 hr estradiol 0.01% (0.1 mg/gram) 1 g vaginal 3XW 10/11/20 10/09/22 Unknown History vaginal cream zolpidem 10 mg tablet 1 tab PO BEDTIME 03/20/21 10/09/22 Unknown History acetaminophen 500 mg tablet 500 mg PO Q6-8H PRN Pain 12/02/21 10/09/22 Unknown History albuterol sulfate 90 mcg/actuation 0 mcg inhalation DAILY 12/02/21 10/09/22 Unknown History aerosol inhaler (Ventolin HFA) amlodipine 5 mg tablet 5 mg PO QAM 12/02/21 10/09/22 Unknown History levothyroxine 125 mcg tablet 125 mcg PO QAM 12/02/21 10/09/22 Unknown History (Synthroid) mupirocin 2 % topical ointment 1 appl topical TID 12/02/21 10/09/22 Unknown History rosuvastatin 40 mg tablet 40 mg PO DAILY 12/02/21 10/09/22 Unknown History topiramate 50 mg tablet 50 mg PO BEDTIME 12/02/21 10/09/22 Unknown History fluticasone fur. 100 mcg-umeclid 1 ea inhalation DAILY 12/17/21 10/09/22 Unknown History 62.5 mcg-vilant 25 mcg inhalat.powder (Trelegy Ellipta) ipratropium 0.5 mg-albuterol 3 mg 3 ml inhalation QID 12/17/21 10/09/22 Unknown History (2.5 mg base)/3 mL nebulization soln multivitamin-ferrous 1 tab PO DAILY 12/17/21 10/09/22 Unknown History fumarate-folic acid 18 mg-400 mcg tablet (Certavite-Antioxidant) diclofenac sodium 1 % topical gel 1 g topical BID 02/11/22 10/09/22 Unknown History methenamine hippurate 1 gram tablet 1 g PO DAILY 02/11/22 10/09/22 Unknown History venlafaxine 150 mg 150 mg PO DAILY 03/21/22 10/09/22 Unknown History capsule,extended release 24 hr furosemide 20 mg tablet 20 mg PO DAILY 05/27/22 10/09/22 Unknown History cyanocobalamin (vitamin B-12) 1,000 mcg PO DAILY 07/08/22 10/09/22 Unknown History 1,000 mcg tablet amlodipine 10 mg tablet 10 mg PO QAM 10/09/22 10/09/22 Unknown History isosorbide mononitrate 30 mg 30 mg PO DAILY 10/09/22 10/09/22 Unknown History tablet,extended release 24 hr fqsmxn-wfnyxspo-puuqykm 1 cap PO 10/09/22 10/09/22 Unknown History 24,000-76,000-120,000 unit capsule,delayed rel (Creon) metoprolol succinate 50 mg 50 mg PO DAILY 10/09/22 10/09/22 Unknown History tablet,extended release 24 hr Exam Exam Date and Time: October 21, 2022 1055 Pertinent Lab Results Pertinent Lab Results: Laboratory Tests 08/08/22 08/08/22 09:09 09:09 WBC 4.5 L Hgb 12.4 Hct 39.2 Plt Count 286 Sodium 143 Potassium 4.2 D Chloride 113 H Carbon Dioxide 24 BUN 11 Creatinine 0.84 Narrative Narrative: NM gerardo perf SPECT rest & str 06/2022 Impression: ? 1.? Myocardial perfusion imaging study shows equivocal for apical ischemia 2.? Gated LVEF is 70% 3. Transient ischemic dilatation not present ? EKG is nondiagnostic for ischemia Per 10/07/22 cardiac office visit note: Echo nml Cardiac cath: revealed nonobstructive CAD with 60% lesion that was FFR which was not significant. Rest of coronary anatomy is stable Assessment and Plan Final Anesthetic Review Family History of Problems with Anesthesia: No History of Problems with Anesthesia: No Documented by User: Safia Scott MD 10/22/22 11:02 [facility] Past Medical History Medical History (Updated 10/20/22 @ 10:50 by Petty Prakash RN) B12 deficiency Cystitis Diabetes Dysuria Esophageal candidiasis Esophageal dysmotilities Hypothyroidism IBS (irritable bowel syndrome) Iron deficiency anemia ANGIE (obstructive sleep apnea) Osteoporosis Pneumonia Recurrent UTI (urinary tract infection) Vitamin D deficiency Family History Family History Father No problems noted. Mother Stomach cancer Diabetes mellitus CVD (cardiovascular disease) Heart attack Arthritis of knee Sister COVID-19 Paternal Aunt Cancer Maternal Aunt Cancer Paternal Uncle Cancer Surgical History Surgical History History of arthroscopy of left shoulder History of esophagogastroduodenoscopy (EGD) Hx of colonoscopy Hx of gastric bypass Social History Social History Household Members: Spouse Housing: House Are you a primary healthcare project manager to a significant other at home: No Do you presently have visiting nurse or other home services: No (unable to determine) Unable to assess alcohol history related to: Unknown Alcohol intake: current Alcohol intake frequency: does not drink Patient Tobacco Use Status: Never used Tobacco Use of substances other than those prescribed or required for medical reasons: No Are you DNR?: No Advance Directives: No Advance Directives Information Provided: Yes service: No Current occupational status: disabled Meds Allergies Allergy/AdvReac Type Severity Reaction Status Date / Time No Known Allergies Allergy Verified 10/09/22 09:26 [No Known Allergies*] Home Medications Medication Instructions Recorded Confirmed Last Taken Type ascorbic acid (vitamin C) 500 mg 500 mg PO BID 07/17/20 10/09/22 Unknown History tablet (Vitamin C) aspirin 81 mg tablet,delayed 81 mg PO DAILY 07/17/20 10/09/22 05/15/22 History release montelukast 10 mg tablet 10 mg PO BEDTIME 08/10/20 10/09/22 Unknown History blood sugar diagnostic #10 ea 09/12/20 10/09/22 Unknown History clonazepam 1 mg tablet 1 mg PO TID PRN Anxiety 09/12/20 10/09/22 Unknown History dulaglutide 0.75 mg/0.5 mL 0.75 mg subcut QWEEK 09/12/20 10/09/22 Unknown History subcutaneous pen injector gabapentin 400 mg capsule 400 mg PO TID 09/12/20 10/09/22 Unknown History lancets 33 gauge #100 ea 09/12/20 10/09/22 Unknown History metformin 500 mg tablet,extended 500 mg PO BID 09/12/20 10/09/22 Unknown History release 24 hr venlafaxine 75 mg capsule,extended 75 mg PO DAILY 09/12/20 10/09/22 Unknown History release 24 hr estradiol 0.01% (0.1 mg/gram) 1 g vaginal 3XW 10/11/20 10/09/22 Unknown History vaginal cream zolpidem 10 mg tablet 1 tab PO BEDTIME 03/20/21 10/09/22 Unknown History acetaminophen 500 mg tablet 500 mg PO Q6-8H PRN Pain 12/02/21 10/09/22 Unknown History albuterol sulfate 90 mcg/actuation 0 mcg inhalation DAILY 12/02/21 10/09/22 Unknown History aerosol inhaler (Ventolin HFA) amlodipine 5 mg tablet 5 mg PO QAM 12/02/21 10/09/22 Unknown History levothyroxine 125 mcg tablet 125 mcg PO QAM 12/02/21 10/09/22 Unknown History (Synthroid) mupirocin 2 % topical ointment 1 appl topical TID 12/02/21 10/09/22 Unknown History rosuvastatin 40 mg tablet 40 mg PO DAILY 12/02/21 10/09/22 Unknown History topiramate 50 mg tablet 50 mg PO BEDTIME 12/02/21 10/09/22 Unknown History fluticasone fur. 100 mcg-umeclid 1 ea inhalation DAILY 12/17/21 10/09/22 Unknown History 62.5 mcg-vilant 25 mcg inhalat.powder (Trelegy Ellipta) ipratropium 0.5 mg-albuterol 3 mg 3 ml inhalation QID 12/17/21 10/09/22 Unknown History (2.5 mg base)/3 mL nebulization soln multivitamin-ferrous 1 tab PO DAILY 12/17/21 10/09/22 Unknown History fumarate-folic acid 18 mg-400 mcg tablet (Certavite-Antioxidant) diclofenac sodium 1 % topical gel 1 g topical BID 02/11/22 10/09/22 Unknown History methenamine hippurate 1 gram tablet 1 g PO DAILY 02/11/22 10/09/22 Unknown History venlafaxine 150 mg 150 mg PO DAILY 03/21/22 10/09/22 Unknown History capsule,extended release 24 hr furosemide 20 mg tablet 20 mg PO DAILY 05/27/22 10/09/22 Unknown History cyanocobalamin (vitamin B-12) 1,000 mcg PO DAILY 07/08/22 10/09/22 Unknown History 1,000 mcg tablet amlodipine 10 mg tablet 10 mg PO QAM 10/09/22 10/09/22 Unknown History isosorbide mononitrate 30 mg 30 mg PO DAILY 10/09/22 10/09/22 Unknown History tablet,extended release 24 hr vncyei-vndahsrr-zwwtvme 1 cap PO 10/09/22 10/09/22 Unknown History 24,000-76,000-120,000 unit capsule,delayed rel (Creon) metoprolol succinate 50 mg 50 mg PO DAILY 10/09/22 10/09/22 Unknown History tablet,extended release 24 hr Exam Airway Mallampati Class: II TM Dist: >3cm Neck ROM: Full Denture: Upper and Lower Heart: rrr Lungs: cta Assessment and Plan Assessment Anesthesia Assessment: Anesthesia Plan Discussed and Chart Reviewed Final Anesthetic Review NPO: Yes ASA Class: III Final Preanesthetic Review: No Changes in Pt Med Stat, Meds/Allgs Chart Reviewed, Consent Obtained/Reviewed and Anes Risks/Benef Reviewed Patient Risk: Intermediate Procedure Risk: Intermediate Anesthetic Plan Anesthetic Plan: MAC: Disposition: Standard PACU
--- NOTE | ~2022-10-22 | FL_ITS ---
EXAMINATION: XR FLUOROSCOPY WITH IMAGES CLINICAL INFORMATION: L5-S1 pain. COMPARISON: None available. TECHNIQUE: Fluoroscopy Supervised By: Dr. Jevon Hooks. Fluoroscopy Time: 8.9 minutes. Cumulative Dose: 171 mGy. DAP: 8.48 Gycm2. Images: 6. FINDINGS: There is a needle positioned posterior to L5-S1 disc level with contrast opacifying the epidural space. Visualized bones are grossly unremarkable. FL/FL guidance in OR IMPRESSION: Fluoroscopy was provided to referring physician for pain management.
[2022-10-22 10:41] VITALS: BP 138/52; PULSE 67; RESP 16; TEMP 36.7; O2SAT 98; BMI 23.2
[2022-10-22 10:42] LABS: Glucose, Whole Blood 163 mg/dL (60-115)
[2022-10-22] MEDS: Lactated Ringers 1,000 ML 100 ML IVCONT (11:01)
[2022-10-22 12:44] VITALS: BP 136/64; PULSE 70; RESP 16; TEMP 36.6; O2SAT 98
[2022-10-22 13:00] VITALS: BP 130/50; PULSE 60; RESP 16; O2SAT 98
[2022-10-22 13:15] VITALS: BP 142/79; PULSE 61; RESP 16; O2SAT 100
--- NOTE | 2022-10-22 13:17 | PM.EVENT ---
Documented by User: Lady Palacios MD 10/22/22 13:18 Event Note Date of Service: 10/22/22 Time Spent With Patient Time: Total time managing care of this patient today ____ minutes. Documented by User: Jevon Hooks MD 10/22/22 15:12 Event Note Date of Service: 10/22/22
[2022-10-22 13:30] VITALS: BP 113/54; PULSE 61; RESP 16; O2SAT 100
[2022-10-22 13:45] VITALS: BP 136/55; PULSE 65; RESP 18; TEMP 36.9; O2SAT 100
--- NOTE | 2022-10-22 15:12 | MHC.SHP ---
Pre-Procedural Eval Section A Date of Service: 10/22/22 The patient is an INPATIENT: No Changes since office visit: Yes Patient answered all questions The History & Physical has been completed within 30 days and I have reviewed it.: Yes Section B Chief Complaint: Spinal stenosis, intervertebral disc degeneration Relevant Family History (Specify if Yes): No Relevant Social History: None Present Medications: see Short Stay Collaborative assessment Medical History: No relevant PMH History of Previous Operations: No relevant previous surgery Allergies: Allergies Allergy/AdvReac Type Severity Reaction Status Date / Time No Known Allergies Allergy Verified 10/22/22 11:09 [No Known Allergies*] Review of Systems Sugical H&P ROS: Negative: Constitution, Cardiovascular and Respiratory Exam Surgical H&P Exam: Normal: HEENT, Normal: Heart and Normal: Lungs Plan Diagnosis/Plan: Unchanged I have reviewed the history and physical and performed a pertinent physical examination on my patient. No changes have occurred unless specified. Time Spent With Patient Time: Total time managing care of this patient today ____ minutes.
--- NOTE | 2022-10-22 15:12 | PM.OP ---
Brief Operative Note Date of Service: 10/22/22 Pre-op diagnosis: Lumbar spinal stenosis with neurogenic claudication Post-op diagnosis: same Procedure: L5-S1 bilateral minimally invasive lumbar decompression Implants: None Surgeon: Jevon Hooks MD Anesthesia: MAC Was an Window And Siding Craftsman used for this Procedure?: No Estimated blood loss (mL): 2 Pathology: none sent Condition: stable Disposition: same day
--- NOTE | 2022-10-22 15:13 | P.OP_ITS ---
Operative Note Operative Note Date of Service: 10/22/22 Narrative: Minimally Invasive Lumbar Decompression, Bilateral, L5/S1 After informed consent, patient was brought to the operating room. The patient was placed in the prone position in the fluoroscopy suite with blankets (bolster) under the hips to assist with reversing lordosis of the spine. Following IV sedation and antibiotic administration, the patient was prepped and draped in my usual standard fashion. Time-out was performed to confirm site and level of intervention. Ample amounts of local anesthetic were used to anesthetize the skin and deep facial planes after topographical landmarks were identified. Procedural safety barriers were established by utilizing a contralateral oblique (MARILU) view to visualize the ventral interlaminar line (VILL). Instruments remained posterior to the VILL during the percutaneous lumbar decompression procedure. A small midline incision was made with a sharp scalpel blade, and a trocar with portal was inserted percutaneously under fluoroscopic guidance to contact the la bartolome indicated. The trocar and portal were tugged to the right side to approach the right interlaminar space first. A bone-sculpting rongeur was inserted to remove adequate amounts of lamina (laminotomy) from the superior surface of the inferior operative lamina site and from the inferior aspect of the lamina above it. The laminotomy created a passage for the tissue sculpting instrument used in debulking the ligamentum flavum. The ligamentum flavum was debulked until diminished returns. A similar procedure was performed on the contralateral side. There were no complications or difficulties noted with these procedures. Upon completion of the procedure, instruments were removed, hemostasis was achieved by direct pressure, and wound closure was performed with dermabond and steristrips. The patient tolerated the procedure well. Upon transferring the patient to the recovery room, the patient?s vital signs remained stable and without any neurologic deficits. The patient was discharged with instructions to rest, continue with ice, and to demonstrate progressive mobility. The patient was given a follow-up exam time and date along with instructions and contact information for any questions or concerns. The patient is to be followed up in the office for further evaluation and treatment, as deemed appropriate and necessary, and for any concerns regarding the procedure.
== END | disposition home or self-care (01) ==
PROVIDERS: PCP Internal Medicine; Visit Provider Internal Medicine
PROC: (CPT 0275T; principal; 2022-10-22 11:30)
DX: M48.062 Spinal stenosis, lumbar region with neurogenic claudication (principal); M51.36 Other intervertebral disc degeneration, lumbar region; M47.816 Spondylosis without myelopathy or radiculopathy, lumbar region; M81.0 Age-related osteoporosis without current pathological fracture; Z00.6 Encounter for examination for normal comparison and control in clinical research program; I10 Essential (primary) hypertension; E11.9 Type 2 diabetes mellitus without complications; E78.5 Hyperlipidemia, unspecified; I86.8 Varicose veins of other specified sites; E03.9 Hypothyroidism, unspecified; D50.9 Iron deficiency anemia, unspecified; G47.33 Obstructive sleep apnea (adult) (pediatric); E55.9 Vitamin D deficiency, unspecified; Z79.82 Long term (current) use of aspirin; Z79.899 Other long term (current) drug therapy; Z79.84 Long term (current) use of oral hypoglycemic drugs; Z98.84 Bariatric surgery status
CPT/HCPCS: 0275T; 82947; C1889; J0690; J1020; J2795

== ENCOUNTER → 2022-11-04 12:47 | Outpatient (BNVA) | payer OTHER, SELFPAY | PROVIDERS: PCP Internal Medicine; Visit Provider Nurse Practitioner Family | DX: M54.16 Radiculopathy, lumbar region (principal); M47.816 Spondylosis without myelopathy or radiculopathy, lumbar region; M53.3 Sacrococcygeal disorders, not elsewhere classified; M48.062 Spinal stenosis, lumbar region with neurogenic claudication; G57.02 Lesion of sciatic nerve, left lower limb | CPT/HCPCS: 99212 ==

== ENCOUNTER → 2022-12-11 13:12 | Outpatient (BNVA) | payer OTHER, SELFPAY | PROVIDERS: PCP Internal Medicine; Visit Provider Orthopaedic Surgery | DX: M54.40 Lumbago with sciatica, unspecified side (principal); M54.16 Radiculopathy, lumbar region; M47.816 Spondylosis without myelopathy or radiculopathy, lumbar region; M53.3 Sacrococcygeal disorders, not elsewhere classified; M25.561 Pain in right knee | CPT/HCPCS: 99202 ==

== ENCOUNTER 2023-01-08 12:01 | Outpatient (REF) | payer OTHER, SELFPAY ==
--- NOTE | ~2023-01-08 | MM_ITS ---
EXAMINATION: MM SCREENING DIGITAL BREAST TOMOSYNTHESIS, BILATERAL CLINICAL INFORMATION: Screening. Asymptomatic. The lifetime risk of breast cancer based on the Tyrer-Cuzick Model is 1.7%. COMPARISON: Mammography: 09/26/2021, 12/03/2020, 11/10/2018, 07/29/2017 TECHNIQUE: Digital breast tomosynthesis is performed in both the craniocaudal and mediolateral oblique views along with computer-aided detection (CAD). Synthesized 2D images are generated from the tomosynthesis. An additional right 3-D MLO view was performed with nipple in profile. FINDINGS: There are scattered areas of fibroglandular density (ACR BI-RADS breast composition Category b). There are no suspicious masses, suspicious grouped calcifications, or areas of architectural distortion. The parenchymal pattern is stable from prior exams. There are bilateral vascular calcifications. MM/MM tomosynthesis screening BI IMPRESSION: No mammographic evidence of malignancy. ASSESSMENT: BI-RADS BI-RADS 2 - Benign Findings RECOMMENDATION: Routine annual mammography screening. 1 year F/U This examination should not preclude the clinical evaluation of a suspicious palpable abnormality. This patient's information was entered into a reminder system with a target due date for their next mammogram.
== END 2023-01-08 12:02 | disposition home or self-care (01) ==
LOC: HO.MAMMO 12:01
PROVIDERS: PCP Internal Medicine; Visit Provider Internal Medicine
DX: Z12.31 Encounter for screening mammogram for malignant neoplasm of breast (principal)
CPT/HCPCS: 77063; 77067

== ENCOUNTER → 2023-01-08 13:00 | Outpatient (BNV) | payer OTHER, SELFPAY | PROVIDERS: PCP Internal Medicine; Visit Provider Radiology Diagnostic Radiology | DX: Z12.31 Encounter for screening mammogram for malignant neoplasm of breast (principal) | CPT/HCPCS: 77063; 77067 ==

== ENCOUNTER 2023-01-16 07:43 | Outpatient (REF) | payer OTHER, SELFPAY ==
--- NOTE | ~2023-01-16 | MR_ITS ---
EXAMINATION: MR LUMBAR SPINE WITHOUT CONTRAST CLINICAL INFORMATION: Lower back pain, neurogenic claudication COMPARISON: MRI lumbar spine 12/09/2021, nuclear medicine bone scan 12/27/2021 TECHNIQUE: MRI of the lumbar spine was obtained using routine sequences without contrast. FINDINGS: Stable grade 1 anterolisthesis of L5 on S1. Stable heterogeneous marrow signal with areas of apparent fatty marrow as well as patchy T1 hypointense marrow signal, the latter of which may reflect sequela of red marrow reconversion given unremarkable nuclear medicine bone scan. The vertebral body heights are maintained. Mild multilevel disc desiccation and height loss, most pronounced at L5-S1. The conus medullaris terminates at the level of L2. The distal spinal cord is normal in appearance. The cauda equina nerve roots appear normal. No significant abnormalities of the paraspinal musculature. Limited evaluation of the intra-abdominal structures without significant abnormalities. The abdominal aorta is of normal contour and caliber. SPINAL LEVELS: T12-L1: No significant spinal canal or neural foraminal narrowing L1-L2: No significant spinal canal or neuroforaminal narrowing. L2-L3: Mild facet arthropathy. No significant central spinal canal stenosis. Stable mild bilateral neural foraminal narrowing. L3-L4: Shallow right eccentric disc bulge and mild facet arthropathy. No significant central spinal canal stenosis. Stable mild bilateral neural foraminal narrowing with possible extraforaminal impingement of the right L3 nerve root. L4-L5: No significant spinal canal or neuroforaminal narrowing. Minimal disc bulge and mild facet arthropathy. L5-S1: Moderate facet arthropathy. Anterolisthesis with posterior disc uncovering and superimposed disc bulge. Stable bilateral subarticular zone narrowing with likely mass effect on the traversing S1 nerve root, mild to moderate left neural foraminal narrowing and severe right neural foraminal narrowing with likely impingement of the exiting right L5 nerve root. MR/MR lumbar spine wo con IMPRESSION: 1. Stable appearance of heterogeneous marrow signal with possible areas of red marrow reconversion 2. At L5-S1, there is stable grade 1 anterolisthesis related to facet arthropathy with resultant subarticular zone narrowing with likely mass effect on the traversing S1 nerve roots, severe right neural foraminal narrowing with likely impingement of the exiting right L5 nerve root, and mild to moderate left neural foraminal narrowing. 3. Additional mild multilevel degenerative changes of the lumbar spine have not significantly progressed compared to MRI from 12/09/2021.
== END 2023-01-16 07:44 | disposition home or self-care (01) ==
LOC: HO.MRI 07:43
PROVIDERS: PCP Internal Medicine; Visit Provider Internal Medicine
DX: M48.061 Spinal stenosis, lumbar region without neurogenic claudication (principal)
CPT/HCPCS: 72148

== ENCOUNTER 2023-01-16 11:00 | Outpatient (RCR) | payer OTHER, SELFPAY ==
--- NOTE | 2022-12-23 08:57 | MHC.PT.EP ---
[facility] [place] [facility] [place] Office [place] Office [address] [phone] F: [phone] F: [phone] F: [phone] F: [phone] Physical Therapy Plan of Care Date of Evaluation: Date of Surgery: NA Diagnosis: WALDO KNEE PAIN Assessment: AMARILIS IS A PLEASANT 72 YO FEMALE WITH A COMPLEX MEDICAL HISTORY. SHE ARRIVES WITH DIAGNOSIS OF WALDO KNEE PAIN . ALONG LATERAL CALF THERE IS A SOFT TISSUE DEFECT WHICH MAY BE DUE TO PARTIAL TEAR OF GASTROC WHICH IS EXTREMELY TENDER TO PALPATE. HER LOW BACK IS ALSO IMPACTING WALDO LE WITH INCREASED RADICULAR PAIN AND SOME ALTERED SENSATION. UPON EXAM SHE DEMONSTRATES IMPAIRMENTS OF DECREASED STRENGTH OF CORE AND LOWER EXTREMITIES, DECREASED TRUNK ROM, ALTERED POSTURE AND POSITIONING, ALTERED GAIT PATTERN AND INCREASED PAIN. FUNCTIONAL LIMITATIONS INCLUDE DECREASED TOLERANCE TO HOMEMAKING AND SELF CARE TASKS, DECREASED ABILITY TO PERFORM LIFTING, BENDING, SQUATTING, PUSHING AND PULLING. SHE REPORTS DECREASED PARTICIPATION IN COMMUNITY AND RECREATIONAL ACTIVITIES. Frequency and Duration: The patient will be seen 2 X WEEK FOR 4 WEEKS Short Term Goals: INITIATE HEP AND PROMOTE SELF MANAGEMENT OF SYMPTOMS Warp Starter Goals: TO DEMONSTRATE FULL KNEE ROM, EQUAL WALDO TO DEMONSTRATE FULL LE STRENGTH, EQUAL WALDO TO ASCEND AND DESCEND STAIRS WITH RECIPROCAL GAIT WITHOUT PAIN GREATER THAN 2/10 TO AMBULATE AD RA ON LEVEL AND UNEVEN SURFACES FOR FITNESS WITHOUT PAIN GREATER THAN 2/1 Treatment Plan: Modalities to reduce pain, spasms and effusion. Manual therapy to restore motion and function. Therapeutic exercise to improve strength and flexibility. Neuromuscular re-education for posture and balance. Therapeutic activities to return to functional activities of daily living. Electronically signed by: UDAY RODRIGUEZ PT DPT Please sign and return to therapist. Thank you for your referral.
== END 2023-02-02 08:42 | disposition home or self-care (01) ==
LOC: HO.PT 11:00
PROVIDERS: PCP Internal Medicine; Visit Provider Nurse Practitioner Family
DX: M25.561 Pain in right knee (principal); M25.562 Pain in left knee
CPT/HCPCS: 97110; 97116; 97162; 97163

== ENCOUNTER 2023-01-21 06:04 | Outpatient (REF) | payer OTHER, SELFPAY ==
--- NOTE | ~2023-01-21 | FL_ITS ---
EXAMINATION: XR FLUOROSCOPY WITH IMAGES CLINICAL INFORMATION: Lesion of sciatic nerve, left lower limb. COMPARISON: None available. TECHNIQUE: Fluoroscopy Supervised By: Dr. Jevon Hooks. Fluoroscopy Time: 0.2 minutes. Cumulative Dose: 2.96 mGy. DAP: 0.517 Gycm2. Images: 2. FINDINGS: There is a needle positioned along the right greater sciatic notch with contrast opacifying the soft tissues. Visualized bones and the right hip joint appears unremarkable. FL/FL guidance in treatment room IMPRESSION: Fluoroscopy was provided to referring physician for pain management.
== END 2023-01-21 06:05 | disposition home or self-care (01) ==
LOC: CF 06:04
PROVIDERS: Visit Provider Internal Medicine
DX: G57.02 Lesion of sciatic nerve, left lower limb (principal); M79.18 Myalgia, other site
CPT/HCPCS: 20552; J3301

== ENCOUNTER 2023-01-21 09:42 | Outpatient (AMB) | payer OTHER, SELFPAY ==
[2023-01-21 09:49] VITALS: BP 98/60; PULSE 63; RESP 14; O2SAT 96; BMI 24.8
--- NOTE | 2023-01-21 09:49 | A.OFFVIS_ITS ---
Intake Vital Signs 01/21/23 09:49 01/21/23 10:57 Height 5 ft 5 ft Weight 127 lb 127 lb BMI 24.8 24.8 BP 98/60 112/70 Blood Pressure Location Rt brachial Rt brachial Position Sitting Sitting Respiration 14 14 Pulse 63 62 Pulse Source Pulse Oximeter Pulse Oximeter Pulse Oximetry (%) 96 100 Oxygen Delivery Method Room Air Room Air Comment Pre-op Post-op Intake Visit Reasons: LEFT PIRIFORMIS INJECTION Allergies No Known Allergies [No Known Allergies*] Allergy (Verified 01/21/23 10:58) HPI LEFT PIRIFORMIS INJECTION HPI Details Patient presents for scheduled procedure. Denies any recent cough, cold, infection, fever or other significant changes in medical history since last office visit. [facility] Medical History B12 deficiency Cystitis Diabetes Dysuria Esophageal candidiasis Esophageal dysmotilities Hypothyroidism IBS (irritable bowel syndrome) Iron deficiency anemia ANGIE (obstructive sleep apnea) Osteoporosis Pneumonia Recurrent UTI (urinary tract infection) Vitamin D deficiency Surgical History History of arthroscopy of left shoulder History of esophagogastroduodenoscopy (EGD) Hx of colonoscopy Hx of gastric bypass Family History Father No problems noted. Mother Stomach cancer Diabetes mellitus CVD (cardiovascular disease) Heart attack Arthritis of knee Sister COVID-19 Paternal Aunt Cancer Maternal Aunt Cancer Paternal Uncle Cancer Social History Household Members: Spouse Housing: House Are you a primary healthcare marketer to a significant other at home: No Do you presently have visiting nurse or other home services: No (unable to determine) Unable to assess alcohol history related to: Unknown Alcohol intake: current Alcohol intake frequency: does not drink Patient Tobacco Use Status: Never used Tobacco service: No Current occupational status: disabled Physical Exam Vital Signs: Last Vital Signs Pulse 62 01/21/23 10:57 Resp 14 01/21/23 10:57 BP 112/70 01/21/23 10:57 Pulse Ox 100 01/21/23 10:57 Oxygen Delivery Method Room Air 01/21/23 10:57 BMI result Body Mass Index 24.8 Office Procedures Injection-Therapetic Trigger Single Point: 49643-[id number] point injection, 1 or 2 Piriformis Muscle Injection, Left The procedure, its benefits, and its risks were explained and written informed consent was obtained from the patient. Immediately prior to starting the procedure, a time-out safety check was conducted. The patient's identification, procedure name, procedure site, and procedure laterality were confirmed with the patient. ? Patient was placed lateral on the fluoroscopy table and the lumbosacral area was prepped using ChloraPrep and draped with sterile drape in standard fashion. The C-arm was placed in an AP orientation. The skin and subcutaneous tissue was anesthetized using 1 mL of 0.75% plain lidocaine with 1.5-inch 25-gauge needle in the middle region of the line between the sacrum and greater trochanter.? A 3.5-inch 25-gauge spinal needle was slowly advanced towards the expected course of the muscle. Intra-muscular position was confirmed with contrast injection and spread pattern consistent with the piriformis muscle.? A total volume of 3 mL of solution containing 40 mg Kenalog and rest 0.5% of ropivacaine was injected intra-muscularly. The stylet was reinserted and needle was removed. The patient tolerated the procedure well. Patient denied any lower extremity weakness or numbness. Patient was observed for 30 min and was discharged after fulfilling the standard discharge criteria. Assessment & Plan Assessment & Plan (1) Piriformis syndrome of left side: Code(s): G57.02 - Lesion of sciatic nerve, left lower limb Plan Patient is status post left piriformis muscle injection. Patient tolerated procedure well and was discharged home in stable condition with discharge instructions. All questions were answered. We will follow-up via telephone or in clinic to assess response to therapy. A follow-up appointment was made during today's visit. Orders: Orders FL guidance in treatment room Today G57.02 - Lesion of sciatic nerve, left lower limb Coding Level of Care Code Procedure Only Diagnoses Piriformis syndrome of left side G57.02 CPT Codes Details - Trigger Single Point: [id number] point injection, 1 or 2 ([id number])
[2023-01-21 10:57] VITALS: BP 112/70; PULSE 62; RESP 14; O2SAT 100; BMI 24.8
== END 2023-01-21 10:38 | disposition home or self-care (01) ==
PROVIDERS: PCP Internal Medicine; Visit Provider Internal Medicine
DX: G57.02 Lesion of sciatic nerve, left lower limb (principal)
CPT/HCPCS: 20552

== ENCOUNTER 2023-01-26 08:56 | Outpatient (AMB) | payer OTHER, SELFPAY ==
--- NOTE | 2023-01-26 08:53 | A.OFFVIS_ITS ---
Intake Vital Signs 01/26/23 08:57 Height 5 ft BP 127/57 L Respiration 14 Pulse 68 Pulse Source Pulse Oximeter Pulse Oximetry (%) 98 Oxygen Delivery Method Room Air Intake Visit Reasons: s/p left Dx pirformis inj (Per Feliberto- ok to DB) Insurance Customer Service Specialist Required: Yes Insurance Customer Service Specialist Name: [id number] Allergies No Known Allergies [No Known Allergies*] Allergy (Verified 01/21/23 10:58) HPI s/p left Dx pirformis inj (Per Feliberto- ok to DB) HPI Details 72-year-old female who presents today in the office for a status post left Piriformis muscle injection. The patient reports 80% relief following the procedure. She currently denies any pain in her back region. She reports right knee pain, which is bothersome. She tried physical therapy in the past with no benefit. She also reports mild swelling in her leg. She has been using compression stockings and occasionally uses knee braces along with stockings. Past procedures: 01/21/23: Piriformis Muscle Injection, Left: 80% relief. 10/22/22; Minimally Invasive Lumbar Decompression, Bilateral, L5/S1: 70% relief. [facility] Medical History B12 deficiency Cystitis Diabetes Dysuria Esophageal candidiasis Esophageal dysmotilities Hypothyroidism IBS (irritable bowel syndrome) Iron deficiency anemia ANGIE (obstructive sleep apnea) Osteoporosis Pneumonia Recurrent UTI (urinary tract infection) Vitamin D deficiency Surgical History History of arthroscopy of left shoulder History of esophagogastroduodenoscopy (EGD) Hx of colonoscopy Hx of gastric bypass Family History Father No problems noted. Mother Stomach cancer Diabetes mellitus CVD (cardiovascular disease) Heart attack Arthritis of knee Sister COVID-19 Paternal Aunt Cancer Maternal Aunt Cancer Paternal Uncle Cancer Social History Household Members: Spouse Housing: House Are you a primary healthcare specialist to a significant other at home: No Do you presently have visiting nurse or other home services: No (unable to determine) Unable to assess alcohol history related to: Unknown Alcohol intake: current Alcohol intake frequency: does not drink Patient Tobacco Use Status: Never used Tobacco service: No Current occupational status: disabled Review of Systems Const All systems reviewed & are unremarkable except as noted in HPI and below Physical Exam Vital Signs: Last Vital Signs Pulse 68 01/26/23 08:57 Resp 14 01/26/23 08:57 BP 127/57 L 01/26/23 08:57 Pulse Ox 98 01/26/23 08:57 Oxygen Delivery Method Room Air 01/26/23 08:57 General: Appears afebrile. Alert and oriented. Mood and affect appropriate. Follows and participates in conversation appropriately. Respiratory effort is unlabored. Able to transition from sit to stand unassisted. Ambulates with bilaterally normal heel strike and toe off. Results Reviewed Results Reviewed: The x-ray of the knee was reviewed, showing normal knee joints, and the MRI of the lumbar spine revealed normal knee joints as well as L5 foraminal stenosis. Assessment & Plan Assessment & Plan (1) Right knee pain: Code(s): M25.561 - Pain in right knee (2) Lumbago with sciatica: Code(s): M54.40 - Lumbago with sciatica, unspecified side Plan The patient continues to have some right lower extremity pain, which is unclear if it is because of a knee source or from the foraminal stenosis at right L5 level. Her knee x-rays are within normal limits, but could still have a soft tissue injury. I offered a diagnostic right knee nerve block to differentiate between the knee and the lower back, but the patient declined that at this time. The patient will let us know when her pain is severe enough to merit an intervention. Scribed for Dr. Hooks by Petar Foley, medical research tech, on 01/26/2023. I, Dr. Hooks, have personally reviewed and agree with the information entered by the scribe. Coding Level of Care Code Est Pt Level 3 (40684) Diagnoses Right knee pain M25.561 Lumbago with sciatica M54.40
[2023-01-26 08:57] VITALS: BP 127/57; PULSE 68; RESP 14; O2SAT 98
== END 2023-01-26 09:28 | disposition home or self-care (01) ==
PROVIDERS: PCP Internal Medicine; Visit Provider Internal Medicine
DX: M25.561 Pain in right knee (principal); M54.41 Lumbago with sciatica, right side
CPT/HCPCS: 99213

== ENCOUNTER → 2023-01-26 08:56 | Outpatient (BNVA) | payer OTHER, SELFPAY | PROVIDERS: PCP Internal Medicine; Visit Provider Internal Medicine | DX: M25.561 Pain in right knee (principal); M54.40 Lumbago with sciatica, unspecified side | CPT/HCPCS: 99212 ==

== ENCOUNTER 2023-01-28 10:55 | Outpatient (AMB) | payer OTHER, SELFPAY ==
--- NOTE | 2023-01-28 10:58 | MHC.OFFVIS ---
Intake Vital Signs 01/28/23 10:59 Height 5 ft Weight 130 lb BMI 25.4 BP 107/63 Blood Pressure Location Rt brachial Pulse 74 Intake Visit Reasons: 6 month follow up Intake Note: Hayley presents in the office as a 6 months follow up of abdominal pain. CC: She c/o heartburn, constipation, and epigastric pain. Patient reports having imbalance. Denies other GI symptoms. Poultry Offal Icer Required: Yes Allergies No Known Allergies [No Known Allergies*] Allergy (Verified 01/28/23 11:01) HPI 6 month follow up HPI Details Assessment & Plan (1) Chronic idiopathic constipation: ?Code(s): K59.04 - Chronic idiopathic constipation ?Plan: CITIZ[place] live He is unclear about what medicine she taking.? We stopped the dicyclomine and the Creon but she has or yes, yes? every medicine when I ask her, despite the fact that I had every medicine written out for her in [place] to stop and start at the last visit. She is still complaining of a great deal of acid brash especially when she lays down at night. This is despite taking bid protonix and having pepcid 20mg for breakthrough and taking TUMS at night. She also claims to be taking the reglan 10mg qidachs. We review the diet and lifestyle changes needed to manage GERD since her medication therapy is maxed. I reiterate she should not eat 4 hours before bed and I print a diet for GERD from site. She just had a cardiac study at [facility] this week, so it is good given her lack of GERD resolution that atypical ACS is being ruled out. She continues on her LInzess and says she is moving her bowels well, she also has bisacodyl for breakthrough and simethicone. She asks about her next colonoscopy, and she had a normal study in 2018 and given her hx of TA she will be due in 2023. I will defer VAZQUEZ labs until her next visit, she had a CT in May and is a little out of step with this. ROV 6 mos. (2) GERD (gastroesophageal reflux disease): ?Code(s): K21.9 - Gastro-esophageal reflux disease without esophagitis (3) VAZQUEZ (nonalcoholic steatohepatitis): ?Comment: BASELINE LABS ?03/13/22 Plt Count 258 Estimated GFR > 60 Ferritin 43 Total Bilirubin 0.8 AST 179 H ALT 108 H Alkaline Phosphatase 106? D 04/16/22 Plt Count 267 Hemoglobin A1c % 6.2 Ferritin 21 Total Bilirubin 0.5 GGT 149 H AST 71 H ALT 58 H Anti-Mitochondrial Ab NEGATIVE Anti-Smooth Muscle Ab <20 Hepatitis A IgM Ab Nonreactive Hep Bs Antigen Negative Hep Bs Antibody NONREACTIVE Hep B Core Total Ab Nonreactive Hepatitis C Ab (EIA) Nonreactive HIV 1&2 Ab/P24 Ag 4thGn Nonreactive She does not drink ETOH ULTRASOUND THE ABDOMEN WITH ELASTOGRAPHY (F0-F1) ULTRASOUND THE ABDOMEN WITH ELASTOGRAPHY (F0-F1) 05/23/22? IMPRESSION: ? 1. Echogenic liver consistent with hepatic steatosis. ? 2. Liver elastography:? In the absence of other known clinical signs, measurements rule out compensated advanced chronic liver disease.? If there are known clinical signs, further testing may be needed for confirmation. ?Code(s): K75.81 - Nonalcoholic steatohepatitis (VAZQUEZ) ? ? ? Medications: Refilled pantoprazole (Prot ayaan) 40 mg? PO BID 30 d ays 60 tabs 6RF K21.9 - Gastro-eso phageal reflux dis ease without esoph agitis, K28.9 - Ga strojejunal ulcer, unspecified as ac ishmael or chronic, wi thout hemorrhage o r perforation ? simethicone 180 mg? PO QID 120 caps 2RF ? ? metoclopramide HCl 10 mg? PO QIDACHS 120 tabs 6RF K31.84 - Gastropar esis ? linaclotide (Linze ss) 290 mcg? PO QAM 30 days 30 caps 6RF K K59.04 - Chronic i diopathic constipa tion ? famotidine (Pepcid ) 20 mg? PO DAILY 30 days 30 tabs 6RF K K28.9 - Gastrojeju nal ulcer, unspeci fied as acute or c hronic, without he morrhage or perfor ation ? bisacodyl (Dulcola x (bisacodyl)) 15 mg (3 x 5 mg) P O BEDTIME 30 days 90 tabs 6RF K59.04 - Chronic i diopathic constipa tion ? Discontinued dicyclomine ?? Dis continued Reason:? Doctor's Order 20 mg? PO QID 120 tabs 3RF K21.9 - Gastro-eso phageal reflux dis ease without esoph agitis, K22.4 - Dy skinesia of esopha raquel, K58.9 - Irrit able bowel syndrom e without diarrhea ? fluconazole (Diflu can) ?? Pt advised to stop rouvastat in during this the rapy ?? Discontinu ed Reason:? Patien t Completed Course 100 mg? PO DAILY 1 0 days 10 tabs 0RF B37.0 - Candidal s tomatitis, B37.81 - Candidal esophag itis TODAY'S VISIT CITIZEN [place] She says her GERD is much better but since we did not change anything, and her metoprolol dose was changed I wonder if part of her problem was actually cardiac. She confirms that her pain also resolved with sub lingual nitro, so it seems this was mostly cardiac. She has an upcoming nuc stress test next week. She continues on her pantoprazole bid and simethicone. She is moving her bowels well with her LInzess and bisacodyl. She also takes reglan qidachs. She still does not know her medications well, but I describe the pills to her. She feels that she does not have much appetite, but wt records over the past few years do not support this. She was at a low of 109 in 2020 but she has been around 130 over the past 2 years only going up and down a few lbs. She does a lot of walking, she will walk to appts all the way from where she lives, close to the [facility] in [place]. She only drinks full caffeinated coffee, no water or non caffeinated beverages. Explains her CiC as well! She had a colonoscopy with us in 2019 that was negative, but she says she had a colonoscopy with polyps bu Dr. Pablo (I can't find the record) and her son has colon polyps, so I think we should err on the side of caution and repeat this next year in 2023. ROV 6 mos. [facility] Medical History B12 deficiency Cystitis Diabetes Dysuria Esophageal candidiasis Esophageal dysmotilities Hypothyroidism IBS (irritable bowel syndrome) Iron deficiency anemia ANGIE (obstructive sleep apnea) Osteoporosis Pneumonia Recurrent UTI (urinary tract infection) Vitamin D deficiency Surgical History History of arthroscopy of left shoulder History of esophagogastroduodenoscopy (EGD) Hx of colonoscopy Hx of gastric bypass Family History Father No problems noted. Mother Stomach cancer Diabetes mellitus CVD (cardiovascular disease) Heart attack Arthritis of knee Sister COVID-19 Paternal Aunt Cancer Maternal Aunt Cancer Paternal Uncle Cancer Social History Household Members: Spouse Housing: House Are you a primary child care coordinator to a significant other at home: No Do you presently have visiting nurse or other home services: No (unable to determine) Unable to assess alcohol history related to: Unknown Alcohol intake: current Alcohol intake frequency: does not drink Patient Tobacco Use Status: Never used Tobacco service: No Current occupational status: disabled Review of Systems Const Denies fatigue, Denies fever(s), Denies night sweats, Reports poor appetite and Denies weight loss ENT Reports Normal hearing present, Denies dental pain, Denies dysphagia, Denies hearing loss, Denies mouth pain, Denies odynophagia, Denies throat swelling, Denies tongue swelling and Reports other (Dentition adequate) Card Reports chest pain at rest Resp Reports no additional complaints GI Denies abdominal pain, Denies melena, Denies bloating, Denies hematochezia, Reports constipation, Denies GI cramping, Denies dysphagia, Denies excessive flatus, Denies early satiety, Reports heartburn, Denies diarrhea, Denies nausea, Denies odynophagia, Denies vomiting and Denies hematemesis Skin/Breast Denies pruritus, Denies lesions, Denies rash and Denies jaundice Neuro Reports Normal hearing present and Denies Abnormal speech present Endo Denies fatigue Aller/Immun Denies throat swelling and Denies tongue swelling Physical Exam Vital Signs: Last Vital Signs Pulse 74 01/28/23 10:59 BP 107/63 01/28/23 10:59 BMI result Body Mass Index 25.4 Const General: cooperative, no acute distress, well developed and well groomed Nutritional Appearance: average body habitus and well nourished Orientation/consciousness: oriented to person, oriented to place and oriented to time Limitations: language barrier HEENT Head: Yes normocephalic and Yes atraumatic Eyes General: appearance normal, both eyes and all related structures Pupils: Equal, round and reactive pupils present Neck Neck: Yes normal visual inspection and Yes no lymphadenopathy Thyroid: Thyroid normal Resp Effort & Inspection: normal respiratory effort and able to speak in complete sentences Auscultation: clear to auscultation bilaterally Cardio Rate: regular rate Rhythm: regular rhythm Heart sounds: Normal, physiologic split S2 sound present Peripheral pulses: radial pulses present and posterior tibial pulses present GI Inspection: No distended and No Abdominal panniculus present Palpation (GI): Soft to palpation, nontender, no guarding, not rigid and No hepatosplenomegaly present Percussion: Yes normal to percussion Auscultation: normal bowel sounds Rectal Exam - Female: deferred Skin General skin exam: no rashes or lesions noted, turgor normal, skin not dry, no jaundice, No spider nevi and no striae Rashes: no rashes Nails: normal Neuro General: oriented to person, oriented to place and oriented to time Cranial nerves: Yes Equal, round and reactive pupils present and Yes Normal hearing present Speech: No Abnormal speech present Extrem General: Yes normal to inspection, No clubbing, No cyanosis and No edema Psych Appearance: grossly normal and well kempt Mental Status: mental status grossly normal Speech and movement: Normal speech and movement present Affect: normal affect Attitude: cooperative Thought process: Normal thought process present and not confabulating Thought content: Normal thought content present Insight: Limited insight present (Psych) Judgement: Limited judgement present (Psych) Assessment & Plan Assessment & Plan (1) GERD (gastroesophageal reflux disease): Code(s): K21.9 - Gastro-esophageal reflux disease without esophagitis Plan: CITIZEN [place] She says her GERD is much better but since we did not change anything, and her metoprolol dose was changed I wonder if part of her problem was actually cardiac. She confirms that her pain also resolved with sub lingual nitro, so it seems this was mostly cardiac. She has an upcoming nuc stress test next week. She continues on her pantoprazole bid and simethicone. She is moving her bowels well with her LInzess and bisacodyl. She also takes reglan qidachs. She still does not know her medications well, but I describe the pills to her. She feels that she does not have much appetite, but wt records over the past few years do not support this. She was at a low of 109 in 2020 but she has been around 130 over the past 2 years only going up and down a few lbs. She does a lot of walking, she will walk to appts all the way from where she lives, close to the [facility] in [place]. She only drinks full caffeinated coffee, no water or non caffeinated beverages. Explains her CiC as well! She had a colonoscopy with us in 2018 that was negative, but she says she had a colonoscopy with polyps bu Dr. Pablo (I can't find the record) and her son has colon polyps, so I think we should err on the side of caution and repeat this next year in 2023. ROV 6 mos. (2) Chronic idiopathic constipation: Code(s): K59.04 - Chronic idiopathic constipation (3) VAZQUEZ (nonalcoholic steatohepatitis): Comment: BASELINE LABS 03/13/22 Plt Count 258 Estimated GFR > 60 Ferritin 43 Total Bilirubin 0.8 AST 179 H ALT 108 H Alkaline Phosphatase 106 D 04/16/22 Plt Count 267 Hemoglobin A1c % 6.2 Ferritin 21 Total Bilirubin 0.5 GGT 149 H AST 71 H ALT 58 H Anti-Mitochondrial Ab NEGATIVE Anti-Smooth Muscle Ab <20 Hepatitis A IgM Ab Nonreactive Hep Bs Antigen Negative Hep Bs Antibody NONREACTIVE Hep B Core Total Ab Nonreactive Hepatitis C Ab (EIA) Nonreactive HIV 1&2 Ab/P24 Ag 4thGn Nonreactive She does not drink ETOH ULTRASOUND THE ABDOMEN WITH ELASTOGRAPHY (F0-F1) ULTRASOUND THE ABDOMEN WITH ELASTOGRAPHY (F0-F1) 05/23/22? IMPRESSION: ? 1. Echogenic liver consistent with hepatic steatosis. ? 2. Liver elastography:? In the absence of other known clinical signs, measurements rule out compensated advanced chronic liver disease.? If there are known clinical signs, further testing may be needed for confirmation. Code(s): K75.81 - Nonalcoholic steatohepatitis (VAZQUEZ) Orders: Orders Alpha Fetoprotein Today K75.81 - Nonalcoholic steatohepatitis (VAZQUEZ) Liver Panel Today K75.81 - Nonalcoholic steatohepatitis (VAZQUEZ) US abdomen complete Today K75.81 - Nonalcoholic steatohepatitis (VAZQUEZ) Medications: Refilled pantoprazole (Protonix) 40 mg PO BID 30 days 60 tabs 6RF K21.9 - Gastro-esophageal reflux disease without esophagitis, K28.9 - Gastrojejunal ulcer, unspecified as acute or chronic, without hemorrhage or perforation simethicone 180 mg PO QID 120 caps 2RF metoclopramide HCl 10 mg PO QIDACHS 120 tabs 6RF K31.84 - Gastroparesis bisacodyl (Dulcolax (bisacodyl)) 15 mg (3 x 5 mg) PO BEDTIME 30 days 90 tabs 6RF K59.04 - Chronic idiopathic constipation famotidine (Pepcid) 20 mg PO DAILY 30 days 30 tabs 6RF K28.9 - Gastrojejunal ulcer, unspecified as acute or chronic, without hemorrhage or perforation linaclotide (Linzess) 290 mcg PO QAM 30 days 30 caps 6RF K59.04 - Chronic idiopathic constipation Discontinued magnesium citrate Discontinued Reason: Doctor's Order 300 mL PO DAILY PRN 296 mL 0RF constipation Coding Level of Care Code Est Pt Level 3 (07276) Diagnoses GERD (gastroesophageal reflux disease) K21.9 Chronic idiopathic constipation K59.04 VAZQUEZ (nonalcoholic steatohepatitis) K75.81
[2023-01-28 10:59] VITALS: BP 107/63; PULSE 74; BMI 25.4
== END 2023-01-28 11:51 | disposition home or self-care (01) ==
PROVIDERS: Visit Provider Nurse Practitioner
DX: K21.9 Gastro-esophageal reflux disease without esophagitis (principal); K59.04 Chronic idiopathic constipation; K75.81 Nonalcoholic steatohepatitis (NASH)
CPT/HCPCS: 99213

== ENCOUNTER → 2023-01-28 10:55 | Outpatient (BNVA) | payer OTHER, SELFPAY | PROVIDERS: Visit Provider Nurse Practitioner | DX: K21.9 Gastro-esophageal reflux disease without esophagitis (principal); K59.04 Chronic idiopathic constipation; K75.81 Nonalcoholic steatohepatitis (NASH) | CPT/HCPCS: 99212 ==

== ENCOUNTER 2023-02-18 07:48 | Outpatient (REF) | payer OTHER, SELFPAY ==
--- NOTE | ~2023-02-18 | US_ITS ---
EXAMINATION: US ABDOMEN COMPLETE CLINICAL INFORMATION: Nonalcoholic steatohepatitis. COMPARISON: Ultrasound abdomen complete 05/23/2022 and 03/28/2019. CT abdomen and pelvis 06/26/2021. TECHNIQUE: Real-time imaging of the abdominal viscera. FINDINGS: PANCREAS: Largely obscured by overlapping bowel gas. ABDOMINAL AORTA: The proximal segment is obscured by overlapping bowel gas. The mid and distal segments are normal in caliber. INFERIOR VENA CAVA: Visualized portions are normal. LIVER: The liver is normal in size. The liver contour is normal. There is diffuse increased liver parenchymal echogenicity. No focal hepatic lesion. There is no intrahepatic biliary duct dilatation seen. A right hepatic lobe capsular calcification is redemonstrated. GALLBLADDER: Surgically absent. COMMON BILE DUCT: Normal in caliber measuring 0.4 cm in diameter. RIGHT KIDNEY: Normal. No hydronephrosis. No renal calculi or focal parenchymal lesions. The kidney measures 9.6 cm in maximum dimension. LEFT KIDNEY: Normal. No hydronephrosis. No renal calculi or focal parenchymal lesions. The kidney measures 10.3 cm in maximum dimension. SPLEEN: Normal. The spleen measures 8.4 cm in maximum dimension. FREE FLUID: None. US/US abdomen complete IMPRESSION: 1. There is generalized increase in hepatic echotexture, consistent with fatty infiltration or hepatocellular disease. Please correlate clinically. No focal hepatic mass or intrahepatic biliary dilatation is seen. 2. The gallbladder is surgically absent. 3. Technically limited ultrasound examination of the pancreas and abdominal great vessels.
== END 2023-02-18 07:49 | disposition home or self-care (01) ==
LOC: HO.US 07:48
PROVIDERS: PCP Internal Medicine; Visit Provider Nurse Practitioner
DX: K75.81 Nonalcoholic steatohepatitis (NASH) (principal)
CPT/HCPCS: 76700

== ENCOUNTER 2023-02-24 09:01 | Outpatient (REF) | payer OTHER, SELFPAY ==
--- NOTE | ~2023-02-24 | XR_ITS ---
EXAMINATION: XR CHEST CLINICAL INFORMATION: Cough for one week, fever COMPARISON: 05/02/2022 TECHNIQUE: 2 views of the chest were obtained. FINDINGS: Aortic calcifications again identified. Heart, mediastinum and pulmonary vessels within normal limits. Mild increased markings at the right base on frontal view without reproduction on lateral view likely represent confluence of structures. Bony structures are intact. XR/XR chest 2V IMPRESSION: No acute cardiopulmonary disease.
[2023-02-24 18:32] LABS: Influenza A PCR NEGATIVE (Negative); Influenza B PCR NEGATIVE (Negative); Resp Syncy Virus RNA Qual PCR NEGATIVE (Negative); SARS COV2 PCR INHOUSE NEGATIVE (Negative)
== END 2023-02-24 09:02 | disposition home or self-care (01) ==
LOC: HO.HHCX 09:01
PROVIDERS: Visit Provider Emergency Medicine
DX: Z20.822 Contact with and (suspected) exposure to COVID-19 (principal); R68.89 Other general symptoms and signs
CPT/HCPCS: 0241U; 71046; 87070

== ENCOUNTER 2023-02-24 09:26 | Outpatient (REF) | payer OTHER, SELFPAY ==
[2023-02-24 11:43] LABS: Alanine Aminotransferase 53 U/L (0-31); Alkaline Phosphatase 57 U/L (39-117); Anion Gap 11 (12-20); Aspartate Amino Transferase 48 U/L (5-31); Bilirubin Total 0.5 mg/dL (0.0-1.0); Blood Urea Nitrogen 10 mg/dL (9-16); Calcium 9.3 mg/dL (8.4-10.2); Carbon Dioxide 24 mmol/L (22-29); Chloride 114 mmol/L (96-108); Estimated Glomerular Filt Rate > 60; Glucose Random 96 mg/dL (60-115); Potassium 4.5 mmol/L (3.3-5.1); Sodium 144 mmol/L (135-145)
[2023-02-24 12:36] LABS: Free T4 (Free Thyroxine) 0.89 ng/dL (0.71-1.85)
== END 2023-02-24 09:27 | disposition home or self-care (01) ==
LOC: HO.HHCL 09:26
PROVIDERS: Visit Provider Internal Medicine
DX: E03.9 Hypothyroidism, unspecified (principal); I12.9 Hypertensive chronic kidney disease with stage 1 through stage 4 chronic kidney disease, or unspecified chronic kidney disease; E11.22 Type 2 diabetes mellitus with diabetic chronic kidney disease; N18.9 Chronic kidney disease, unspecified
CPT/HCPCS: 36415; 80053; 84439; 84443

== ENCOUNTER 2023-03-24 09:59 | Outpatient (AMB) | payer OTHER, SELFPAY ==
[2023-03-24 10:30] VITALS: BP 110/70; PULSE 79; O2SAT 100; BMI 27.1
--- NOTE | 2023-03-24 10:30 | MHC.OFFVIS ---
Intake Vital Signs 03/24/23 10:30 Height 5 ft Weight 138 lb 14.259 oz BMI 27.1 BP 110/70 Blood Pressure Location Rt brachial Position Sitting Pulse 79 Pulse Source Pulse Oximeter Pulse Oximetry (%) 100 Oxygen Delivery Method Room Air Intake Visit Reasons: asthma/angie Video Engineer Required: No Allergies No Known Allergies [No Known Allergies*] Allergy (Verified 03/24/23 10:33) HPI HPI Comments History of Present Illness Details The patient is here for pulmonary evaluation. The patient is a 72-year-old woman with the history of asthma in addition to obstructive sleep apnea. Apparently she has been on the Trelegy inhaler in addition to her rescue inhaler. Seems like she is not using the Trelegy. She does not like the powder and this med is helping her. She does use a Ventolin inhaler multiple times a day however. Denies any significant cough chest congestion. She has many chest tightness and wheezing at times. I do believe that she may do better with Symbicort as it is more potent and she may feel the affects of bed and she understands that she will use it twice a day. In the meantime the patient also has underlying daytime drowsiness. Her Avon score is elevated 10/24. The patient does have significant snoring at nighttime. She did undergo a sleep study that was done back in 01/2023 demonstrating mild sleep apnea with significant hypoxia. The patient will benefit from starting CPAP at this time. She is looking for to using it and using a small mask. [facility] Medical History (Updated 03/24/23 @ 21:17 by Darrick Montes MD) Asthma ANGIE (obstructive sleep apnea) Diabetes Esophageal dysmotilities Esophageal candidiasis Pneumonia Cystitis Recurrent UTI (urinary tract infection) Dysuria Vitamin D deficiency Hypothyroidism Osteoporosis B12 deficiency Iron deficiency anemia IBS (irritable bowel syndrome) Surgical History Hx of gastric bypass History of esophagogastroduodenoscopy (EGD) Hx of colonoscopy History of arthroscopy of left shoulder Family History Father No problems noted. Mother Stomach cancer Diabetes mellitus CVD (cardiovascular disease) Heart attack Arthritis of knee Sister COVID-19 Paternal Aunt Cancer Maternal Aunt Cancer Paternal Uncle Cancer Social History Household Members: Spouse Housing: House Are you a primary manager urgent care to a significant other at home: No Do you presently have visiting nurse or other home services: No (unable to determine) Unable to assess alcohol history related to: Unknown Alcohol intake: current Alcohol intake frequency: does not drink Patient Tobacco Use Status: Never used Tobacco service: No Current occupational status: disabled Review of Systems Const Reports daytime sleepiness, Reports difficulty sleeping and Reports snoring ENT Reports nasal congestion and Reports nasal discharge Card Denies chest pain Resp Reports cough, Reports snoring and Reports wheezing GI Denies abdominal pain Musc Reports no additional complaints Skin/Breast Denies rash Neuro Reports no additional complaints Endo Reports no additional complaints Luis Miguel/Lymph Denies lymphadenopathy Aller/Immun Reports wheezing Physical Exam Vital Signs: Last Vital Signs Pulse 79 03/24/23 10:30 BP 110/70 03/24/23 10:30 Pulse Ox 100 03/24/23 10:30 Oxygen Delivery Method Room Air 03/24/23 10:30 BMI result Body Mass Index 27.1 Const General: comfortable HEENT Head: Yes normocephalic Eyes General: appearance normal, both eyes and all related structures Neck Neck: Yes supple Chest Chest palpation & inspection: normal inspection of the chest Resp Effort & Inspection: normal respiratory effort and prolonged expiratory phase Auscultation: diminished lung sounds Cardio Rate: regular rate Rhythm: regular rhythm Heart sounds: S1 normal heart sound present and S2 normal heart sound present GI Palpation (GI): Soft to palpation Skin General skin exam: no rashes or lesions noted Extrem General: Yes no clubbing, cyanosis or edema Assessment & Plan Assessment & Plan (1) Asthma: Code(s): J45.909 - Unspecified asthma, uncomplicated Qualifiers: Asthma severity: moderate Asthma persistence: persistent Asthma complication type: uncomplicated Qualified Code(s): J45.40 - Moderate persistent asthma, uncomplicated (2) ANGIE (obstructive sleep apnea): Code(s): G47.33 - Obstructive sleep apnea (adult) (pediatric) Plan Stop Trelegy start Symbicort AMANDA as needed start APAP F/U 3 months Medications: New budesonide-formoterol 160-4.5 mcg/actuation (Symbicort) 2 puffs inhalation BID 30 days 10.2 grams 11RF J44.89 - Other specified chronic obstructive pulmonary disease Coding Level of Care Code New Pt Level 4 (48673) Diagnoses Moderate persistent asthma without complication J45.40 Asthma severity: moderate Asthma persistence: persistent Asthma complication type: uncomplicated ANGIE (obstructive sleep apnea) G47.33 Time Spent (min) 35
== END 2023-03-24 10:54 | disposition home or self-care (01) ==
PROVIDERS: PCP Internal Medicine; Referring Provider Internal Medicine; Visit Provider Hospitalist
DX: J45.40 Moderate persistent asthma, uncomplicated (principal); G47.33 Obstructive sleep apnea (adult) (pediatric)
CPT/HCPCS: 99204

== ENCOUNTER → 2023-03-24 09:59 | Outpatient (BNVA) | payer OTHER, SELFPAY | PROVIDERS: PCP Internal Medicine; Visit Provider Hospitalist ==

== ENCOUNTER 2023-04-07 09:07 | Outpatient (AMB) | payer OTHER, SELFPAY ==
--- NOTE | 2023-04-07 09:09 | A.OFFVIS_ITS ---
Intake Vital Signs 04/07/23 09:10 Height 5 ft Weight 141 lb 15.643 oz BMI 27.7 BP 92/60 Blood Pressure Location Lt brachial Position Sitting Pulse 67 Pulse Source Pulse Oximeter Temp 97.6 F Temp Source Skin Pulse Oximetry (%) 98 Oxygen Delivery Method Room Air Intake Visit Reasons: Lumbar spondylosis Intake Note: Patient presents today to follow up on knee pain and lumbar spondylosis. Reports she thinks has been retaining fluid. States she drinks fluids and does not void during the day, only in the morning and at night, very minimally. Global Program Manager Required: Yes Global Program Manager Language: Remote Sensing Analyst Name: Rachael [id number] Information Interpreted: clinical only Accompanied by: Self / Same As Patient Allergies No Known Allergies [No Known Allergies*] Allergy (Verified 04/07/23 09:09) Medication List - Last Reconciled 04/07/23 by Abdoul Camacho MD acetaminophen 500 mg PO Q6-8H PRN albuterol sulfate 90 mcg/actuation (Ventolin HFA) 0 mcg inhalation DAILY amlodipine 5 mg PO QAM amlodipine 10 mg PO QAM ascorbic acid (vitamin C) (Vitamin C) 500 mg PO BID aspirin 81 mg PO DAILY bisacodyl (Dulcolax (bisacodyl)) 15 mg (3 x 5 mg) PO BEDTIME 30 days blood sugar diagnostic As directed budesonide-formoterol 160-4.5 mcg/actuation (Symbicort) 2 puffs inhalation BID 30 days cholecalciferol (vitamin D3) 50 mcg PO DAILY 30 days clonazepam 1 mg PO TID PRN CPAP (CPAP Machine/Device) As directed cyanocobalamin (vitamin B-12) 1,000 mcg PO DAILY diclofenac sodium 1% 1 g topical BID dulaglutide 0.75 mg subcut QWEEK estradiol 0.01%(0.1mg/gram) 1 g vaginal 3XW famotidine (Pepcid) 20 mg PO DAILY 30 days ferrous sulfate (iron) 325 mg PO DAILY folic acid 1 mg PO DAILY furosemide 20 mg PO DAILY gabapentin 600 mg PO TID ipratropium-albuterol 0.5 mg-3 mg(2.5 mg base)/3 mL 3 mL inhalation QID isosorbide mononitrate ER 60 mg PO DAILY lancets As directed levothyroxine 112 mcg PO DAILY lidocaine 5% 1 patch topical DAILY 30 days linaclotide (Linzess) 290 mcg PO QAM 30 days govgpl-eweccghv-tsuwhua 24,000-76,000 -120,000 unit (Creon) caps PO BID meclizine 12.5 mg PO TID PRN metformin ER 500 mg PO BID methenamine hippurate 1 g PO DAILY metoclopramide HCl 10 mg PO QIDACHS metoprolol succinate ER 50 mg PO DAILY montelukast 10 mg PO BEDTIME ogytrvoljlrt-tybl-mhvlj acid 18-400 mg-mcg (Certavite-Antioxidant) 1 tab PO DAILY mupirocin 2% 1 appl topical TID nitroglycerin 0.4 mg sublingual DAILY pantoprazole (Protonix) 40 mg PO BID 30 days rosuvastatin 40 mg PO DAILY simethicone 180 mg PO QID Tirosint (levothyroxine) 112 mcg PO DAILY 30 days NS topiramate 50 mg PO BEDTIME tramadol 50 mg PO Q6H PRN venlafaxine ER 75 mg PO DAILY venlafaxine ER 150 mg PO DAILY zolpidem 1 tab PO BEDTIME HPI HPI Comments History of Present Illness Details The patient returns for evaluation of her osteoarthritis and tramadol usage. The [employer] service was used to facilitate the visit. The patient has been on tramadol for a number of years for her osteoarthritis. Symptomatic regions include the left shoulder, right knee, and the lower back. She has received occasional corticosteroid injections from pain management that have been helpful for the back pain. Most of the back pain is in the left lumbar region with radiation to the left hip. That pain ih recent months has tended to radiate laterally and also into the left groin. It is worse with walking. She has a walker and a cane at home that she uses to get around. She is also on acetaminophen that she takes about 3 times a day. She says she gets a fever in the afternoons if she does not take the Tylenol. She says the fever problem has been present for about 3 years. It is not clear whether her body temperature has been measured lately. It sounds as if she had febrile illnesses in the past related to UTI. She is on multiple medications for diabetes. She is also taking gabapentin at 600 mg 3 times a day. She is also on venlafaxine and at zolpidem. She relates that the left shoulder was operated on in the past but I do not find any scars in the shoulder region. She was told that the problem with the shoulder was a complication of her diabetes. She uses the tramadol 50 mg 4 times a day. It does not seem to cause any sedation.. [facility] Medical History (Updated 03/24/23 @ 21:17 by Darrick Montes MD) Asthma ANGIE (obstructive sleep apnea) Diabetes Esophageal dysmotilities Esophageal candidiasis Pneumonia Cystitis Recurrent UTI (urinary tract infection) Dysuria Vitamin D deficiency Hypothyroidism Osteoporosis B12 deficiency Iron deficiency anemia IBS (irritable bowel syndrome) Surgical History Hx of gastric bypass History of esophagogastroduodenoscopy (EGD) Hx of colonoscopy History of arthroscopy of left shoulder Family History Father No problems noted. Mother Stomach cancer Diabetes mellitus CVD (cardiovascular disease) Heart attack Arthritis of knee Sister COVID-19 Paternal Aunt Cancer Maternal Aunt Cancer Paternal Uncle Cancer Social History (Updated 04/07/23 @ 09:13 by HAMZAH Melissa) Household Members: Spouse Housing: House Are you a primary healthcare analyst to a significant other at home: No Do you presently have visiting nurse or other home services: No (unable to determine) Alcohol intake: never Patient Tobacco Use Status: Never used Tobacco service: No Current occupational status: disabled Review of Systems Const Details: Low energy. Reportedly has fevers every afternoon for the past 3 years. She says her temperature goes up to 100.3. It is not clear she measures it that often. She has trouble walking because of hip pain and back pain. Negative for appetite change, weight change, chills, malaise Card Details: Negative chest pain, edema and syncope Resp Details: Negative for SOB, cough and wheezing GI Details: Negative indigestion/heartburn, nausea, abdominal pain, bowel changes, diarrhea, constipation and bloody stool. Details: Negative for dysuria, hematuria, nocturia, decreased force/flow and genital discharge Endo Details: Negative for polyuria and polydypsia Luis Miguel/Lymph Details: Negative for excessive bruising or bleeding. Physical Exam Vital Signs: Last Vital Signs Temp 97.6 F 04/07/23 09:10 Pulse 67 04/07/23 09:10 BP 92/60 04/07/23 09:10 Pulse Ox 98 04/07/23 09:10 Oxygen Delivery Method Room Air 04/07/23 09:10 BMI result Body Mass Index 27.7 APPEARANCE: Patient in no acute distress EYES no redness, pupils equal and reactive to light, eyelids normal. No temporal artery tenderness, redness or swelling. EXTREMITIES: No edema, no calf tenderness, normal peripheral pulses. SKIN: No inflammatory or neoplastic lesions. Normal color and turgor JOINT EXAM:.?? Cervical Spine:? Mild pain with extremes of normal range of motion with some cervical muscle tenderness. Thoracic Spine:? No tenderness on palpation. Lumbar Spine:? Alignment normal.?Able to flex forward up to 50-60 degrees and extend to 5 degrees before experiencing moderate lumbar pain. Tenderness to palpation over the left paraspinal muscle region. The Hands:? Normal pain-free range of motion without tenderness, swelling, increased warmth or erythema. 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 Wrists:? Normal pain-free range of motion without tenderness, swelling, increased warmth or erythema. Elbows: Normal pain-free range of motion without tenderness, swelling, increased warmth or erythema. Shoulders:? LEFT: Mild to moderate pain with abduction at 90 degrees. Passive motion beyond that is not possible. There is mild anterior and subacromial tenderness without swelling swelling, redness or effusion. Questionable abductor weakness but no adenopathy. RIGHT: Mild discomfort with extremes of range of motion. Slight anterior tenderness without weakness, adenopathy,, swelling, increased warmth or erythema. Hips: Full range of motion without pain. Hip bursa:? No tenderness. Knees: Left:? Pain with full extension. Tenderness to palpation of the medial and lateral joint line. No swelling, increased warmth or erythema.? There is no effusion or crepitation Right: Pain with full extension. Tenderness to palpation of the medial and lateral joint line. No swelling, increased warmth or erythema.? There is no effusion or crepitation Ankles:? Normal pain-free range of motion without tenderness, swelling, increased warmth or erythema. Feet: Normal pain-free range of motion without tenderness, swelling, increased warmth or erythema. Decreased sensation to light touch reported bilaterally extending just above the ankles Tender points: Mild tenderness to digital palpation at the occiput, trapezius, second rib, lateral epicondyle, knees, greater trochanter and gluteal area bilaterally. ? Results Reviewed Results Reviewed: [address] [address] XRay Report Signed Patient: Hayley Marc MR#: [id number] : 1950 Acct:[id number] Age/Sex: 71 / F ADM Date: 10/09/[address]: Aubrie Hardin NP Ordering Physician: Aubrie Hardin NP Date of Service: 10/09/22 Procedure(s): XR knee RT 3V Accession Number(s): [id number] cc: Aubrie Hardin [employer]BINES ASSEMBLER~ EXAMINATION: XR KNEE, RIGHT CLINICAL INFORMATION: Pain COMPARISON: None available. TECHNIQUE: AP, lateral and sunrise views of the right knee are submitted. FINDINGS: Bones and soft tissues are normal. No fracture or joint effusion. Alignment is anatomic. Joint spaces are well maintained. No abnormal soft tissue calcification. There are diffuse atherosclerotic calcifications. XR/XR knee RT 3V IMPRESSION: Normal right knee. EXAMINATION: XR KNEE, LEFT CLINICAL INFORMATION: Pain. COMPARISON: None available. TECHNIQUE: AP, lateral and sunrise views of the left knee are submitted. FINDINGS: Bones and soft tissues are normal. No fracture or joint effusion. Alignment is anatomic. Joint spaces are well maintained. No abnormal soft tissue calcification. There are diffuse atherosclerotic calcifications. IMPRESSION: Normal left knee. Dictated By: Darnell San MD [address] [address] XRay Report Signed Patient: Hayley Marc MR#: [id number] : 1950 Acct:[id number] Age/Sex: 71 / F ADM Date: 07/04/[address]: Greg Leonard MD Ordering Physician: Nandini Eisenberg Date of Service: 07/04/22 Procedure(s): XR hip BI w PEL1V Accession Number(s): [id number] cc: Nandini Eisenberg~ EXAMINATION: XR BILATERAL HIPS WITH AP PELVIS CLINICAL INFORMATION: Pain COMPARISON: None TECHNIQUE: AP view of the pelvis and single views of each hip were obtained. FINDINGS: The bones and soft tissues are normal. No fracture. Sacroiliac and hip joints are normal. Pubic symphysis is normal. No abnormal soft tissue calcifications. XR/XR hip BI w PEL1V IMPRESSION: Normal pelvis and hips. Dictated By: Cathy Clarke MD Signed By: <Electronically signed by Cathy Clarke MD in OV> 07/07/[address] [address] Magnetic Resonance Report Signed Patient: Hayley Marc MR#: [id number] : 1950 Acct:[id number] Age/Sex: 72 / F ADM Date: 01/16/[address]: Mary Rivera MD Ordering Physician: Mary Rod MD Date of Service: 01/16/23 Procedure(s): MR lumbar spine wo con Accession Number(s): [id number] cc: Mary Rod MD~ EXAMINATION: MR LUMBAR SPINE WITHOUT CONTRAST CLINICAL INFORMATION: Lower back pain, neurogenic claudication COMPARISON: MRI lumbar spine 12/09/2021, nuclear medicine bone scan 12/27/2021 TECHNIQUE: MRI of the lumbar spine was obtained using routine sequences without contrast. FINDINGS: Stable grade 1 anterolisthesis of L5 on S1. Stable heterogeneous marrow signal with areas of apparent fatty marrow as well as patchy T1 hypointense marrow signal, the latter of which may reflect sequela of red marrow reconversion given unremarkable nuclear medicine bone scan. The vertebral body heights are maintained. Mild multilevel disc desiccation and height loss, most pronounced at L5-S1. The conus medullaris terminates at the level of L2. The distal spinal cord is normal in appearance. The cauda equina nerve roots appear normal. No significant abnormalities of the paraspinal musculature. Limited evaluation of the intra-abdominal structures without significant abnormalities. The abdominal aorta is of normal contour and caliber. SPINAL LEVELS: T12-L1: No significant spinal canal or neural foraminal narrowing L1-L2: No significant spinal canal or neuroforaminal narrowing. L2-L3: Mild facet arthropathy. No significant central spinal canal stenosis. Stable mild bilateral neural foraminal narrowing. L3-L4: Shallow right eccentric disc bulge and mild facet arthropathy. No significant central spinal canal stenosis. Stable mild bilateral neural foraminal narrowing with possible extraforaminal impingement of the right L3 nerve root. L4-L5: No significant spinal canal or neuroforaminal narrowing. Minimal disc bulge and mild facet arthropathy. L5-S1: Moderate facet arthropathy. Anterolisthesis with posterior disc uncovering and superimposed disc bulge. Stable bilateral subarticular zone narrowing with likely mass effect on the traversing S1 nerve root, mild to moderate left neural foraminal narrowing and severe right neural foraminal narrowing with likely impingement of the exiting right L5 nerve root. MR/MR lumbar spine wo con IMPRESSION: 1. Stable appearance of heterogeneous marrow signal with possible areas of red marrow reconversion 2. At L5-S1, there is stable grade 1 anterolisthesis related to facet arthropathy with resultant subarticular zone narrowing with likely mass effect on the traversing S1 nerve roots, severe right neural foraminal narrowing with likely impingement of the exiting right L5 nerve root, and mild to moderate left neural foraminal narrowing. 3. Additional mild multilevel degenerative changes of the lumbar spine have not significantly progressed compared to MRI from 12/09/2021. Dictated By: Polol Anthony Signed By: <Electronically signed by Pollo Anthony in OV> Assessment & Plan Assessment & Plan (1) Chronic left shoulder pain: Code(s): M25.512 - Pain in left shoulder; G89.29 - Other chronic pain (2) Medication monitoring encounter: Comment: Tramadol pain contract [id number]/2022 Code(s): Z51.81 - Encounter for therapeutic drug level monitoring (3) Left hip pain: Code(s): M25.552 - Pain in left hip (4) Lumbar spondylosis: Code(s): M47.816 - Spondylosis without myelopathy or radiculopathy, lumbar region Plan She has had many years of pain mostly involving the lumbar spine where there is well documented lumbar osteoarthritis and degenerative disc disease. Interventions with pain management has been to some extent successful. She is still requiring the tramadol which she thinks is helpful. She seems to have no side effects with that and is compliant with the prescriptions so I think it can be continued. There are many tender points as well suggesting some underlying fibromyalgia. She is already on gabapentin and an antidepressant for that so I do not think additional treatment is appropriate for now. I encouraged her to continue with physical therapy exercises that have been taught to her. She que stions about electrical stimulators for the back pain; I suggested she review that with pain management. Looking at her chest x-ray it looks like the left shoulder is involved with osteoarthritis and perhaps rotator cuff damage. We will check an x-ray of that to try to confirm that. Additionally she has some painful range of motion in the left hip. Hip views on her sacroiliac films from earlier this year seem to show the joint was okay but I think a repeat hip x-ray seems reasonable at this point. We will continue to supply her with the prescriptions for the tramadol. A follow-up in 6 months seems reasonable. Orders: Orders XR hip LT min 2V Today M25.551 - Pain in right hip, M25.552 - Pain in left hip XR shoulder LT min 2V Today G89.29 - Other chronic pain, M25.512 - Pain in left shoulder Coding Level of Care Code Est Pt Level 3 (00139) Diagnoses Chronic left shoulder pain M25.512; G89.29 Medication monitoring encounter Z51.81 Left hip pain M25.552 Lumbar spondylosis M47.816
[2023-04-07 09:10] VITALS: BP 92/60; PULSE 67; TEMP 36.4; O2SAT 98; BMI 27.7
== END 2023-04-07 10:21 | disposition home or self-care (01) ==
PROVIDERS: PCP Internal Medicine; Referring Provider Internal Medicine; Visit Provider Internal Medicine Rheumatology
DX: M25.512 Pain in left shoulder (principal); G89.29 Other chronic pain; Z51.81 Encounter for therapeutic drug level monitoring; M25.552 Pain in left hip; M47.816 Spondylosis without myelopathy or radiculopathy, lumbar region
CPT/HCPCS: 99213

== ENCOUNTER → 2023-04-07 09:07 | Outpatient (BNVA) | payer OTHER, SELFPAY | PROVIDERS: PCP Internal Medicine; Visit Provider Internal Medicine Rheumatology | DX: M25.551 Pain in right hip (principal); M25.552 Pain in left hip; M25.512 Pain in left shoulder; G89.29 Other chronic pain; M47.816 Spondylosis without myelopathy or radiculopathy, lumbar region; Z79.899 Other long term (current) drug therapy; Z51.81 Encounter for therapeutic drug level monitoring | CPT/HCPCS: 99212 ==

== ENCOUNTER 2023-04-09 10:30 | Outpatient (REF) | payer OTHER, SELFPAY ==
--- NOTE | ~2023-04-09 | XR_ITS ---
EXAMINATION: XR HIP, LEFT XR SHOULDER, LEFT CLINICAL INFORMATION: Left hip pain. Left shoulder pain. COMPARISON: AP pelvis 07/04/2022 including hips. Left shoulder 12/06/2021. TECHNIQUE: AP and frog lateral views of the left hip. 3 views of the left shoulder. FINDINGS: LEFT SHOULDER: Glenohumeral joint space is maintained. Left acromioclavicular space appears similarly widened with interval increase of previously noted ossification/calcification projecting within the acromial space. The bones are diffusely demineralized. LEFT HIP: Advanced degenerative changes on limited images of the sacroiliac joint. Extensive vascular calcifications. Bones are diffusely demineralized. Moderate degenerative changes left hip with joint space narrowing and hypertrophic change. XR/XR hip LT min 2V IMPRESSION: 1. Appearance compatible with previously stated history of prior resection of the acromion with increased dystrophic ossification/calcification. 2. Moderate degenerative changes left hip. 3. Advanced degenerative changes on limited views of the left sacroiliac joint. Additional imaging with CT scan or MRI should be considered for better visualization as these modalities are much more sensitive for detection of fracture or other underlying pathology.
--- NOTE | ~2023-04-09 | XR_ITS ---
EXAMINATION: XR HIP, LEFT XR SHOULDER, LEFT CLINICAL INFORMATION: Left hip pain. Left shoulder pain. COMPARISON: AP pelvis 07/04/2022 including hips. Left shoulder 12/06/2021. TECHNIQUE: AP and frog lateral views of the left hip. 3 views of the left shoulder. FINDINGS: LEFT SHOULDER: Glenohumeral joint space is maintained. Left acromioclavicular space appears similarly widened with interval increase of previously noted ossification/calcification projecting within the acromial space. The bones are diffusely demineralized. LEFT HIP: Advanced degenerative changes on limited images of the sacroiliac joint. Extensive vascular calcifications. Bones are diffusely demineralized. Moderate degenerative changes left hip with joint space narrowing and hypertrophic change. XR/XR shoulder LT min 2V IMPRESSION: 1. Appearance compatible with previously stated history of prior resection of the acromion with increased dystrophic ossification/calcification. 2. Moderate degenerative changes left hip. 3. Advanced degenerative changes on limited views of the left sacroiliac joint. Additional imaging with CT scan or MRI should be considered for better visualization as these modalities are much more sensitive for detection of fracture or other underlying pathology.
== END 2023-04-09 10:31 | disposition home or self-care (01) ==
LOC: HO.XRAY 10:30
PROVIDERS: PCP Internal Medicine; Visit Provider Internal Medicine Rheumatology
DX: G89.29 Other chronic pain (principal); M25.512 Pain in left shoulder; M25.551 Pain in right hip; M25.552 Pain in left hip
CPT/HCPCS: 73030; 73502

== ENCOUNTER 2023-04-09 11:00 | Outpatient (RCR) | payer OTHER, SELFPAY ==
--- NOTE | 2023-03-03 12:31 | MHC.PT.EP ---
[facility] [place] [facility] [place] [facility] [place] [facility] [address] Dontrell Reaves [address] [phone] F: [phone] F: [phone] F: [phone] F: [phone] Physical Therapy Plan of Care Date of Evaluation: 03/03/23 Date of Surgery: 10/22/22 Diagnosis: LBP s/p minimally invasive lumbar decompression b/l L5-S1 Assessment: Pt is a 72yo female who is 3.5 months s/p MILD procedure who continues to have difficulty ambulating and is unable to sleep in her bed due to low back and hip pain. Skilled PT indicated to teach patient how to move safely and protect her low back, techniques to reduce pain, promote increased ROM of hips/low back, maximize hip and core strength to reduce risk for falls and improve functional mobility. Frequency and Duration: The patient will be seen 2x/week, x 4 weeks Short Term Goals: 1. Pt will be able to sit upright on edge of bed and activate TAC x 15 seconds. 2. Increase lumbar flexion AROM to 25%. 3. Pt will be able to complete sit>sidelying transfer and then assume hooklying position with log roll technique correctly with Min V/C's and no physical assist. Junk Removal Specialist Goals: 1. Pt will be able to ambulate x 500 feet without rest break with 4WW. 2. Pt will be able to go up and down 4 stairs with reciprocal pattern and UE support. 3. Pt will demonstrate overall improved function with score of <= 50% on CORAL. Treatment Plan: Modalities to reduce pain, spasms and effusion. Manual therapy to restore motion and function. Therapeutic exercise to improve strength and flexibility. Neuromuscular re-education for posture and balance. Therapeutic activities to return to functional activities of daily living. Electronically signed by: Alysia Up PT, DPT Please sign and return to therapist. Thank you for your referral.
== END 2023-05-20 12:53 | disposition home or self-care (01) ==
LOC: HO.PT 11:00
PROVIDERS: PCP Internal Medicine; Visit Provider Nurse Practitioner Family
DX: M54.40 Lumbago with sciatica, unspecified side (principal); M51.36 Other intervertebral disc degeneration, lumbar region; M54.16 Radiculopathy, lumbar region
CPT/HCPCS: 97014; 97110; 97112; 97140; 97162; 97530

== ENCOUNTER 2023-04-27 09:37 | Outpatient (AMB) | payer OTHER, SELFPAY ==
--- NOTE | 2023-04-27 09:40 | A.OFFVIS_ITS ---
Intake Vital Signs 04/27/23 09:42 Height 5 ft Weight 144 lb BMI 28.1 Blood Pressure Location Lt brachial Position Sitting Respiration 12 Pulse Source Pulse Oximeter Pulse Oximetry (%) 97 Oxygen Delivery Method Room Air Intake Visit Reasons: DISCUSSION FOR POSSIBLE HIP INJ/CONFIRMED Energy Infrastructure Engineer Required: Yes Energy Infrastructure Engineer Name: [id number] Marah Allergies No Known Allergies [No Known Allergies*] Allergy (Verified 04/27/23 09:44) HPI DISCUSSION FOR POSSIBLE HIP INJ/CONFIRMED HPI Details 72-year-old female who presents today to the office for a discussion regarding low back pain. A certified curriculum development manager was present during the visit. She states that her pain initially improved after the mild procedure, but it started worsening later. She has pain with her movements. Her pain is worse on the left side and radiates down to posterior side of the left leg. She has difficulty walking. She reports swelling in her leg. She used to wear compression socks in the past but discontinued them as they were not effective. She sleeps on the sofa. She is interested in trialing epidural steroid injection for her radicular symptoms. Past procedures: 01/21/23: Piriformis Muscle Injection, L eft: 80% relief. 10/22/22; Minimally Invasive Lumbar Deco mpression, Bilateral, L5/S1: 70% relief. [facility] Medical History (Updated 04/28/23 @ 11:59 by Jevon Hooks MD) Asthma ANGIE (obstructive sleep apnea) Diabetes Esophageal dysmotilities Esophageal candidiasis Pneumonia Cystitis Recurrent UTI (urinary tract infection) Dysuria Vitamin D deficiency Hypothyroidism Osteoporosis B12 deficiency Iron deficiency anemia IBS (irritable bowel syndrome) Surgical History Hx of gastric bypass History of esophagogastroduodenoscopy (EGD) Hx of colonoscopy History of arthroscopy of left shoulder Family History Father No problems noted. Mother Stomach cancer Diabetes mellitus CVD (cardiovascular disease) Heart attack Arthritis of knee Sister COVID-19 Paternal Aunt Cancer Maternal Aunt Cancer Paternal Uncle Cancer Social History (Updated 04/07/23 @ 09:13 by HAMZAH Melissa) Household Members: Spouse Housing: House Are you a primary manager urgent care to a significant other at home: No Do you presently have visiting nurse or other home services: No (unable to determine) Alcohol intake: never Patient Tobacco Use Status: Never used Tobacco service: No Current occupational status: disabled Review of Systems Const All systems reviewed & are unremarkable except as noted in HPI and below Physical Exam Vital Signs: Last Vital Signs Resp 12 04/27/23 09:42 Pulse Ox 97 04/27/23 09:42 Oxygen Delivery Method Room Air 04/27/23 09:42 BMI result Body Mass Index 28.1 General: Appears afebrile. Alert and oriented. Mood and affect appropriate. Follows and participates in conversation appropriately. Respiratory effort is unlabored. Able to transition from sit to stand unassisted. Ambulates with bilaterally normal heel strike and toe off. There is tenderness on the left sacroiliac joint more than the right sacroiliac joint. Results Reviewed Results Reviewed: No imaging is available for review. Assessment & Plan Assessment & Plan (1) Left lumbar radiculitis: Code(s): M54.16 - Radiculopathy, lumbar region (2) Sacroiliac joint dysfunction: Code(s): M53.3 - Sacrococcygeal disorders, not elsewhere classified Plan Symptoms appear to be a combination of sacroiliac joint dysfunction causing left axial low back pain as well as lumbar radiculitis causing left lower extremity symptoms. Will schedule her for a left sacroiliac joint injection followed by left L5-S1 TFESI if the SI joint injection does not relieve her lower extremity symptoms. Discussed the risks and benefits of the procedure with the patient in detail. All questions were answered. The patient is on board with the plan. Justification for interventional therapy: ? Patient with average pain > 6/10 ? Patient has exhausted conservative therapy ? Patient unable to tolerate physical therapy due to pain Scribed for Dr. Hooks by Petar Foley medical sales associate, on 04/27/2023. I, Dr. Hooks, have personally reviewed and agree with the information entered by the scribe. Coding Level of Care Code Est Pt Level 4 (50425) Diagnoses Left lumbar radiculitis M54.16 Sacroiliac joint dysfunction M53.3
[2023-04-27 09:42] VITALS: RESP 12; O2SAT 97; BMI 28.1
== END 2023-04-27 09:59 | disposition home or self-care (01) ==
PROVIDERS: PCP Internal Medicine; Visit Provider Internal Medicine
DX: M54.16 Radiculopathy, lumbar region (principal); M53.3 Sacrococcygeal disorders, not elsewhere classified
CPT/HCPCS: 99214

== ENCOUNTER → 2023-04-27 09:37 | Outpatient (BNVA) | payer OTHER, SELFPAY | PROVIDERS: PCP Internal Medicine; Visit Provider Internal Medicine | DX: M54.16 Radiculopathy, lumbar region (principal); M53.3 Sacrococcygeal disorders, not elsewhere classified | CPT/HCPCS: 99212 ==

== ENCOUNTER 2023-06-16 10:43 | Outpatient (REF) | payer OTHER, SELFPAY ==
[2023-06-16 12:56] LABS: TSH reflex Free T4 7.52 uIU/mL (0.32-4.0)
[2023-06-16 13:55] LABS: Free T4 (Free Thyroxine) 0.65 ng/dL (0.71-1.85)
== END 2023-06-16 10:44 | disposition home or self-care (01) ==
LOC: HO.LAB 10:43
PROVIDERS: PCP Internal Medicine; Visit Provider Internal Medicine
DX: E03.9 Hypothyroidism, unspecified (principal)
CPT/HCPCS: 36415; 84439; 84443

== ENCOUNTER 2023-06-22 08:58 | Outpatient (AMB) | payer OTHER, SELFPAY ==
--- NOTE | 2023-06-22 09:54 | MHC.OFFVIS ---
Intake Vital Signs 06/22/23 09:55 Height 5 ft Weight 153 lb 3.54 oz BMI 29.9 BP 102/60 Blood Pressure Location Lt brachial Position Sitting Pulse 66 Pulse Source Doppler Pulse Oximetry (%) 98 Oxygen Delivery Method Room Air Intake Visit Reasons: asthma/angie Allergies No Known Allergies [No Known Allergies*] Allergy (Verified 06/22/23 09:58) HPI HPI Comments History of Present Illness Details The patient is a 72-year-old woman with the history of asthma in addition to obstructive sleep apnea. Apparently she has been on the Trelegy inhaler in addition to her rescue inhaler. Seems like she is not using the Trelegy. She does not like the powder and this med is helping her. She does use a Ventolin inhaler multiple times a day however. Denies any significant cough chest congestion. She has many chest tightness and wheezing at times. I do believe that she may do better with Symbicort as it is more potent and she may feel the affects of bed and she understands that she will use it twice a day. In the meantime the patient also has underlying daytime drowsiness. Her Groom score is elevated 10/24. The patient does have significant snoring at nighttime. She did undergo a sleep study that was done back in 01/2023 demonstrating mild sleep apnea with significant hypoxia. The patient will benefit from starting CPAP at this time. She is looking for to using it and using a small mask. 06/22/2023 the patient is here for a pulmonary follow-up visit. Overall the patient has been doing fairly well from a respiratory status. She does have some musculoskeletal back pain when she is breathing and doing certain house chores. Otherwise, denies any wheezing or chest tightness. She continues on the inhalers with good response. In addition to that she does have daytime drowsiness. Her Groom score is elevated 11/24. She did get her new CPAP. However she does not know how to use it. She did bring it in. We did take time to teach her how to set up. We did set up with the right mask which is the N20 small mask with the slight and tubing and also decreased her pressures to 4-8 maximum. The patient may also benefit from a chin strap. The patient will start using her CPAP every night for 4 hours. She will return in a couple months with the machine needs we can help her further get used to it. It is difficult for to get used to the equipment, but, in no will help her when she gets comfortable with the equipment in the mask and we can set the right pressure settings for her. [facility] Medical History (Updated 04/28/23 @ 11:59 by Jevon Hooks MD) Asthma ANGIE (obstructive sleep apnea) Diabetes Esophageal dysmotilities Esophageal candidiasis Pneumonia Cystitis Recurrent UTI (urinary tract infection) Dysuria Vitamin D deficiency Hypothyroidism Osteoporosis B12 deficiency Iron deficiency anemia IBS (irritable bowel syndrome) Surgical History Hx of gastric bypass History of esophagogastroduodenoscopy (EGD) Hx of colonoscopy History of arthroscopy of left shoulder Family History Father No problems noted. 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 Patient Tobacco Use Status: Never used Tobacco service: No Current occupational status: disabled Review of Systems Const Reports daytime sleepiness, Reports difficulty sleeping and Reports snoring ENT Reports nasal congestion and Reports nasal discharge Card Denies chest pain Resp Reports cough, Reports snoring and Reports wheezing GI Denies abdominal pain Musc Reports no additional complaints Skin/Breast Denies rash Neuro Reports no additional complaints Endo Reports no additional complaints Luis Miguel/Lymph Denies lymphadenopathy Aller/Immun Reports wheezing Physical Exam Vital Signs: Last Vital Signs Pulse 66 06/22/23 09:55 BP 102/60 06/22/23 09:55 Pulse Ox 98 06/22/23 09:55 Oxygen Delivery Method Room Air 06/22/23 09:55 BMI result Body Mass Index 29.9 Const General: comfortable HEENT Head: Yes normocephalic Eyes General: appearance normal, both eyes and all related structures Neck Neck: Yes supple Chest Chest palpation & inspection: normal inspection of the chest Resp Effort & Inspection: normal respiratory effort and No prolonged expiratory phase Auscultation: diminished lung sounds Cardio Rate: regular rate Rhythm: regular rhythm Heart sounds: S1 normal heart sound present and S2 normal heart sound present GI Palpation (GI): Soft to palpation Skin General skin exam: no rashes or lesions noted Extrem General: Yes no clubbing, cyanosis or edema Assessment & Plan Assessment & Plan (1) Asthma: Code(s): J45.909 - Unspecified asthma, uncomplicated Qualifiers: Asthma severity: moderate Asthma persistence: persistent Asthma complication type: uncomplicated Qualified Code(s): J45.40 - Moderate persistent asthma, uncomplicated (2) ANGIE (obstructive sleep apnea): Code(s): G47.33 - Obstructive sleep apnea (adult) (pediatric) Plan continue Symbicort AMANDA as needed start APAP, adjusted pressures 4-8, N20 small F/U 2-3 months Coding Level of Care Code Est Pt Level 4 (77233) Diagnoses Moderate persistent asthma without complication J45.40 Asthma severity: moderate Asthma persistence: persistent Asthma complication type: uncomplicated ANGIE (obstructive sleep apnea) G47.33 Time Spent (min) 18
[2023-06-22 09:55] VITALS: BP 102/60; PULSE 66; O2SAT 98; BMI 29.9
== END 2023-06-22 10:19 | disposition home or self-care (01) ==
PROVIDERS: PCP Internal Medicine; Visit Provider Hospitalist
DX: J45.40 Moderate persistent asthma, uncomplicated (principal); G47.33 Obstructive sleep apnea (adult) (pediatric)
CPT/HCPCS: 99214

== ENCOUNTER → 2023-06-22 08:58 | Outpatient (BNVA) | payer OTHER, SELFPAY | PROVIDERS: PCP Internal Medicine; Visit Provider Hospitalist | DX: J45.40 Moderate persistent asthma, uncomplicated (principal); G47.33 Obstructive sleep apnea (adult) (pediatric) | CPT/HCPCS: 99212 ==

== ENCOUNTER 2023-07-07 12:01 | Outpatient (REF) | payer OTHER, SELFPAY ==
--- NOTE | ~2023-07-07 | US_ITS ---
EXAMINATION: US THYROID CLINICAL INFORMATION: Enlarged thyroid, problems swallowing. COMPARISON: None available. TECHNIQUE: Linear transducer melvin-scale and color Doppler examination with attention to the region of the thyroid. FINDINGS: SIZE: Measurements of the thyroid lobes and nodules are given in sagittal, anteroposterior and transverse dimensions respectively. Right Thyroid Lobe: 2.7 x 0.8 x 1.0 cm, volume 1.2 mL. Parenchyma: The gland echotexture is homogeneous. Thyroid vascularity is normal. Left Thyroid Lobe: 2.4 x 0.5 x 0.9 cm, volume 0.6 mL. Parenchyma: The gland echotexture is homogeneous. Thyroid vascularity is normal. Isthmus: 0.2 cm in maximum AP dimension. No focal thyroid nodule is seen. NODES: No lymphadenopathy is seen in the tissue surrounding the thyroid gland. US/US thyroid IMPRESSION: No significant thyroid nodule. No FNA or follow up. ACR TI-RADS RECOMMENDATION REFERENCE: Ultrasound-guided fine-needle aspiration, followup ultrasound, no further follow up. * TR1 (0 point) and TR2 (2 points): No FNA or follow up. * TR3 (3 points): FNA if more than or equal to 2.5 cm in maximum dimension, followup ultrasound in 1, 3 and 5 years if 1.5 to 2.4 cm in maximum dimension. * TR4 (4-6 points): FNA if more than or equal to 1.5 cm in maximum dimension, followup ultrasound in 1, 2, 3 and 5 years if 1 to 1.4 cm in maximum dimension. * TR5 (more than or equal to 7 points): FNA if more than or equal to 1 cm in maximum dimension, followup ultrasound every year for 5 years if 0.5 to 0.9 cm in maximum dimension. * TR3, TR4 or TR5 nodules that are below the size threshold for followup receive no follow up.
== END 2023-07-07 12:02 | disposition home or self-care (01) ==
LOC: HO.US 12:01
PROVIDERS: PCP Internal Medicine; Visit Provider Internal Medicine
DX: E04.9 Nontoxic goiter, unspecified (principal)
CPT/HCPCS: 76536

== ENCOUNTER 2023-07-10 09:24 | Outpatient (AMB) | payer OTHER, SELFPAY ==
--- NOTE | 2023-07-10 09:53 | MHC.OFFVIS ---
Intake Vital Signs 07/10/23 09:55 Height 5 ft Weight 150 lb BMI 29.3 BP 116/58 L Blood Pressure Location Lt brachial Position Sitting Respiration 12 Pulse 71 Pulse Source Pulse Oximeter Pulse Oximetry (%) 98 Oxygen Delivery Method Room Air Intake Visit Reasons: Follow Up/Back Pain Outside Food Server Required: Yes Outside Food Server Name: [id number] Allergies No Known Allergies [No Known Allergies*] Allergy (Verified 07/10/23 09:57) Medication List - Last Reconciled 07/10/23 by Jesenia Terrell LPN acetaminophen 500 mg PO Q6-8H PRN albuterol sulfate 90 mcg/actuation (Ventolin HFA) 0 mcg inhalation DAILY amlodipine 5 mg PO QAM amlodipine 10 mg PO QAM ascorbic acid (vitamin C) (Vitamin C) 500 mg PO BID aspirin 81 mg PO DAILY bisacodyl (Dulcolax (bisacodyl)) 15 mg (3 x 5 mg) PO BEDTIME 30 days blood sugar diagnostic As directed budesonide-formoterol 160-4.5 mcg/actuation (Symbicort) 2 puffs inhalation BID 30 days cholecalciferol (vitamin D3) 50 mcg PO DAILY 30 days clonazepam 1 mg PO TID PRN CPAP (CPAP Machine/Device) As directed cyanocobalamin (vitamin B-12) 1,000 mcg PO DAILY diclofenac sodium 1% 1 g topical BID dulaglutide 0.75 mg subcut QWEEK estradiol 0.01%(0.1mg/gram) 1 g vaginal 3XW famotidine (Pepcid) 20 mg PO DAILY 30 days ferrous sulfate (iron) 325 mg PO DAILY folic acid 1 mg PO DAILY furosemide 20 mg PO DAILY gabapentin 600 mg PO TID ipratropium-albuterol 0.5 mg-3 mg(2.5 mg base)/3 mL 3 mL inhalation QID isosorbide mononitrate ER 60 mg PO DAILY lancets As directed levothyroxine 112 mcg PO DAILY lidocaine 5% 1 patch topical DAILY 30 days linaclotide (Linzess) 290 mcg PO QAM 30 days [id number] 24,000-76,000 -120,000 unit (Creon) 24,000 caps PO BID meclizine 12.5 mg PO TID PRN metformin ER 500 mg PO BID methenamine hippurate 1 g PO DAILY metoclopramide HCl 10 mg PO QIDACHS metoprolol succinate ER 50 mg PO DAILY montelukast 10 mg PO BEDTIME rwkrdjahgqxl-[id number] acid 18-400 mg-mcg (Certavite-Antioxidant) 1 tab PO DAILY mupirocin 2% 1 appl topical TID nitroglycerin 0.4 mg sublingual DAILY pantoprazole (Protonix) 40 mg PO BID 30 days rosuvastatin 40 mg PO DAILY simethicone 180 mg PO QID Tirosint (levothyroxine) 112 mcg PO DAILY 30 days NS topiramate 50 mg PO BEDTIME tramadol 50 mg PO QID PRN venlafaxine ER 75 mg PO DAILY venlafaxine ER 150 mg PO DAILY zolpidem 1 tab PO BEDTIME HPI Follow Up/Back Pain HPI Details 72-year-old female who presents today to the office for a follow-up back pain. A certified spanish interpreter/translator was present during the visit. The patient reports severe bilateral low back pain. She is unable to tolerate the pain. She had difficulty walking. She has tried tramadol with no relief. She has difficulty sleeping and turning on the sides at night due to pain. She is walking with the help of a cane or walker. She had not received any calls to schedule injections that were discussed in the April 2023 visit. She has been following up with an oncologist for chronic anemia. She follows her oncologist with blood work every three months. Past procedures: 01/21/23: Piriformis Muscle Injection, Left: 80% relief. 10/22/22; Minimally Invasive Lumbar Decompression, Bilateral, L5/S1: 70% relief. [facility] Medical History (Updated 07/09/23 @ 09:47 by Charles Clemons MD) Asthma ANGIE (obstructive sleep apnea) Diabetes Esophageal dysmotilities Esophageal candidiasis Pneumonia Cystitis Recurrent UTI (urinary tract infection) Dysuria Vitamin D deficiency Hypothyroidism Osteoporosis B12 deficiency Iron deficiency anemia IBS (irritable bowel syndrome) Surgical History Hx of gastric bypass History of esophagogastroduodenoscopy (EGD) Hx of colonoscopy History of arthroscopy of left shoulder Family History Father No problems noted. 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 Alert and oriented. Mood and affect appropriate. Follows and participates in conversation appropriately. Respiratory effort is unlabored. Able to transition from sit to stand unassisted. Ambulates with bilaterally normal heel strike and toe off. Lumbar extension is severely limited. Facet loading is positive. Results Reviewed Results Reviewed: No imaging is available for review. Assessment & Plan Assessment & Plan (1) Lumbar spondylosis: Code(s): M47.816 - Spondylosis without myelopathy or radiculopathy, lumbar region Plan The patient is interested in proceeding with more diagnostic injections. Informed the patient that insurance approval is required. We will file a PA for approval and keep her updated. Once we receive the approval, we will schedule her for a bilateral diagnostic L3-L4-L5 medial branch block. Discussed the risks and benefits of the procedure with the patient in detail. All questions were answered. The patient is on board with the plan. Justification for interventional therapy: ? Patient with average pain > 6/10 ? Patient has exhausted conservative therapy Scribed for Dr. Hooks by Petar Foley, medical geneticist, on 07/10/2023. I, Dr. Hooks, have personally reviewed and agree with the information entered by the scribe. Coding Level of Care Code Est Pt Level 3 (95721) Diagnoses Lumbar spondylosis M47.816
[2023-07-10 09:55] VITALS: BP 116/58; PULSE 71; RESP 12; O2SAT 98; BMI 29.3
== END 2023-07-10 10:28 | disposition home or self-care (01) ==
PROVIDERS: PCP Internal Medicine; Visit Provider Internal Medicine
DX: M47.816 Spondylosis without myelopathy or radiculopathy, lumbar region (principal)
CPT/HCPCS: 99213

== ENCOUNTER → 2023-07-10 09:24 | Outpatient (BNVA) | payer OTHER, SELFPAY | PROVIDERS: PCP Internal Medicine; Visit Provider Internal Medicine | DX: M47.816 Spondylosis without myelopathy or radiculopathy, lumbar region (principal) | CPT/HCPCS: 99212 ==

== ENCOUNTER 2023-07-31 10:39 | Outpatient (AMB) | payer OTHER, SELFPAY ==
[2023-07-31 10:46] VITALS: BP 108/57; PULSE 69; BMI 29.9
--- NOTE | 2023-07-31 10:46 | A.OFFVIS_ITS ---
Intake Vital Signs 07/31/23 10:46 Height 5 ft Weight 153 lb 0.013 oz BMI 29.9 BP 108/57 L Blood Pressure Location Lt brachial Position Sitting Pulse 69 Intake Visit Reasons: 6 month fu Intake Note: Hayley presents in the office as a 6 months follow up of labs and US. CC: She states that she c/o heartburn, constipation, and epigastric pain. Per patient she would like to have EGD done. Patient c/o pain from left heel and irritation and lower back pain. Denies other GI symptoms. 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 She confirms that her pain also resolved with sub lingual nitro, so it seems this was mostly cardiac. She has an upcoming nuc stress test next week. She continues on her pantoprazole bid and simethicone. She is moving her bowels well with her LInzess and bisacodyl. She also takes reglan qidachs. She still does not know her medications well, but I describe the pills to her. She feels that she does not have much appetite, but wt records over the past few years do not support this. She was at a low of 109 in 2020 but she has been around 130 over the past 2 years only going up and down a few lbs. She does a lot of walking, she will walk to appts all the way from where she lives, close to the [facility]. She only drinks full caffeinated coffee, no water or non caffeinated beverages. Explains her CiC as well! She had a colonoscopy with us in 2019 that was negative, but she says she had a colonoscopy with polyps bu Dr. Pablo (I can't find the record) and her son has colon polyps, so I think we should err on the side of caution and repeat this next year in 2023. ROV 6 mos. (2) Chronic idiopathic constipation: Code(s): K59.04 - Chronic idiopathic constipation (3) VAZQUEZ (nonalcoholic steatohepatitis): Comment: BASELINE LABS 03/13/22 Plt Count 258 Estimated GFR > 60 Ferritin 43 Total Bilirubin 0.8 AST 179 H ALT 108 H Alkaline Phosphatase 106 D 04/16/22 Plt Count 267 Hemoglobin A1c % 6.2 Ferritin 21 Total Bilirubin 0.5 GGT 149 H AST 71 H ALT 58 H Anti-Mitochondrial Ab NEGATIVE Anti-Smooth Muscle Ab <20 Hepatitis A IgM Ab Nonreactive Hep Bs Antigen Negative Hep Bs Antibody NONREACTIVE Hep B Core Total Ab Nonreactive Hepatitis C Ab (EIA) Nonreactive HIV 1&2 Ab/P24 Ag 4thGn Nonreactive She does not drink ETOH ULTRASOUND THE ABDOMEN WITH ELASTOGRAPHY (F0-F1) ULTRASOUND THE ABDOMEN WITH ELASTOGRAPHY (F0-F1) 05/23/22? IMPRESSION: ? 1. Echogenic liver consistent with hepat ic steatosis. ? 2. Liver elastography:? In the absence o f other known clinical signs, measurements rule out compensated advanced chronic liver disease.? If there are known clinical signs, further testing may be needed for confirmation. Code(s): K75.81 - Nonalcoholic steatohepatitis (VAZQUEZ) Orders: Orders Alpha Fetoprotein Today K75.81 - Nonalcoho lic steatohepatiti s (VAZQUEZ) Liver Panel Today K75.81 - Nonalcoho lic steatohepatiti s (VAZQUEZ) US abdomen complet e Today K75.81 - Nonalcoho lic steatohepatiti s (VAZQUEZ) Medications: Refilled pantoprazole (Prot ayaan) 40 mg PO BID 30 d ays 60 tabs 6RF K21.9 - Gastro-eso phageal reflux dis ease without esoph agitis, K28.9 - Ga strojejunal ulcer, unspecified as ac cantwell or chronic, wi thout hemorrhage o r perforation simethicone 180 mg PO QID 120 caps 2RF metoclopramide HCl 10 mg PO QIDACHS 120 tabs 6RF K31.84 - Gastropar esis bisacodyl (Dulcola x (bisacodyl)) 15 mg (3 x 5 mg) P O BEDTIME 30 days 90 tabs 6RF K59.04 - Chronic i diopathic constipa tion famotidine (Pepcid ) 20 mg PO DAILY 30 days 30 tabs 6RF K28.9 - Gastrojeju nal ulcer, unspeci fied as acute or c hronic, without he morrhage or perfor ation linaclotide (Linze ss) 290 mcg PO QAM 30 days 30 caps 6RF K59.04 - Chronic i diopathic constipa tion Discontinued magnesium citrate Discontinued Re ason: Doctor's Or dennise 300 mL PO DAILY P RN 296 mL 0RF cons tipation Laboratory Tests 06/16/23 07/09/23 07/09/23 10:52 09:41 09:41 Estim Creat Clear Calc 41.4 Estimated GFR 50 Random Glucose 128 H Ferritin 62 Total Bilirubin 0.5 AST 35 H ALT 26 Alkaline Phosphata se 69 TSH 7.52 H Free T4 0.65 L US of abdomen 02/19/23 FINDINGS: PANCREAS: Largely obscured by overlapping bowel gas. ABDOMINAL AORTA: The proximal segment is obscured by overlapping bowel gas. The mid and distal segments are normal in caliber. INFERIOR VENA CAVA: Visualized portions are normal. LIVER: The liver is normal in size. The liver contour is normal. There is diffuse increased liver parenchymal echogenicity. No focal hepatic lesion. There is no intrahepatic biliary duct dilatation seen. A right hepatic lobe capsular calcification is redemonstrated. GALLBLADDER: Surgically absent. COMMON BILE DUCT: Normal in caliber measuring 0.4 cm in diameter. RIGHT KIDNEY: Normal. No hydronephrosis. No renal calculi or focal parenchymal lesions. The kidney measures 9.6 cm in maximum dimension. LEFT KIDNEY: Normal. No hydronephrosis. No renal calculi or focal parenchymal lesions. The kidney measures 10.3 cm in maximum dimension. SPLEEN: Normal. The spleen measures 8.4 cm in maximum dimension. FREE FLUID: None. US/US abdomen complete IMPRESSION: 1. There is generalized increase in hepa tic echotexture, consistent with fatty infiltration or hepatocellular disease. Please correlate clinically. No focal hepatic mass or intrahepatic biliary dilatation is seen. 2. The gallbladder is surgically absent. 3. Technically limited ultrasound examin ation of the pancreas and abdominal great vessels. TODAY'S VISIT MALAWIAN #Ana Maria Live She has had increasing trouble with CIC, but she also has seemingly, new onset thyroid disease. They seem to be in the process of titrating the replacement medication. This is severely complicating her constipation and causing her a lot of bloating pain and cramping especially periumbilically and in the lower abdomen. Also, she says she drinks a lot of water but when I question her more thoroughly she only seems to drink what might be an 8 oz glass twice a day. She also tells me she only urinates twice a day. Clearly she has not drinking anywhere near enough water and I educate her that she needs to fill a 2 L bottle with water and try to drink that amount slowly throughout the day. This will help her not only with her stooling (especially since we have maximized many chronic constipation medicines) but also with her recurrent urine tract infections and her general health. She continues on her pantoprazole bid, simethicone, LInzess and bisacodyl. She also takes reglan qidachs. She tells me her diabetes has also been more poorly controlled recently this may be also related to her thyroid. She has continuous trouble with opening fissures on her left foot, appears to be r/t diabetic skin and cracking. She is using a cream. She will be seeing a senior core java developer soon and I encouraged her to show this to them as well to see if they can do something to promote good healing. A med try adding lactulose to her already complex regimen of Linzess once a day bisacodyl 3 at night and metoclopramide 10 mg 4 times a day. She is also having worse acid reflux which would be expected given the severity of the constipation. For now she continues on her pantoprazole 40 mg in the day and famotidine at night. Return office visit in 4 weeks to evaluate her response to lactulose. [facility], LAT[facility] Medical History (Updated 08/05/23 @ 17:02 by ABE Breen) Asthma ANGIE (obstructive sleep apnea) Diabetes Esophageal dysmotilities Esophageal candidiasis Pneumonia Cystitis Recurrent UTI (urinary tract infection) Dysuria Vitamin D deficiency Hypothyroidism Osteoporosis B12 deficiency Iron deficiency anemia IBS (irritable bowel syndrome) Surgical History Hx of gastric bypass History of esophagogastroduodenoscopy (EGD) Hx of colonoscopy History of arthroscopy of left shoulder Family History Father No problems noted. 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 Patient Tobacco Use Status: Never used Tobacco service: No Current occupational status: disabled Review of Systems Const Denies fatigue, Denies fever(s), Denies night sweats, Denies poor appetite and Denies weight loss ENT Reports Normal hearing present, Denies dental pain, Denies dysphagia, Denies hearing loss, Denies mouth pain, Denies odynophagia, Denies throat swelling, Denies tongue swelling and Reports other (Dentition adequate) Card Reports no additional complaints Resp Reports no additional complaints GI Details: Denies abdominal pain, Denies melena, Reports bloating, Denies hematochezia, Reports constipation, Denies GI cramping, Denies dysphagia, Denies excessive flatus, Denies early satiety, Reports heartburn, Denies diarrhea, Denies nausea, Denies odynophagia, Denies vomiting and Denies hematemesis Skin/Breast Reports dry skin, Denies pruritus, Denies lesions, Reports new lesions, Denies rash and Denies jaundice Neuro Reports Normal hearing present and Denies Abnormal speech present Endo Denies fatigue Aller/Immun Denies throat swelling and Denies tongue swelling Physical Exam Vital Signs: Last Vital Signs Pulse 69 07/31/23 10:46 BP 108/57 L 07/31/23 10:46 BMI result Body Mass Index 29.9 Const General: cooperative, no acute distress, well developed and well groomed Nutritional Appearance: well nourished and overweight Orientation/consciousness: oriented to person, oriented to place and oriented to time Limitations: language barrier HEENT Head: Yes normocephalic and Yes atraumatic Eyes General: appearance normal, both eyes and all related structures Pupils: Equal, round and reactive pupils present Neck Neck: Yes normal visual inspection and Yes no lymphadenopathy Thyroid: Thyroid normal Resp Effort & Inspection: normal respiratory effort and able to speak in complete sentences Auscultation: clear to auscultation bilaterally Cardio Rate: regular rate Rhythm: regular rhythm Heart sounds: Normal, physiologic split S2 sound present Peripheral pulses: radial pulses present and posterior tibial pulses present GI Inspection: No distended, No Abdominal panniculus present and Yes obesity Palpation (GI): Soft to palpation, nontender, no guarding, not rigid and No hepatosplenomegaly present Percussion: Yes normal to percussion Auscultation: normal bowel sounds Rectal Exam - Female: deferred Skin Other: Dry cracking calluses on heel and soles of her feet General skin exam: dry skin, no jaundice, No spider nevi and no striae Rashes: no rashes Nails: normal Neuro General: oriented to person, oriented to place and oriented to time Cranial nerves: Yes Equal, round and reactive pupils present and Yes Normal hearing present Speech: No Abnormal speech present Extrem General: Yes normal to inspection, No clubbing, No cyanosis and No edema Psych Appearance: grossly normal and well kempt Mental Status: mental status grossly normal Speech and movement: Normal speech and movement present Affect: normal affect Attitude: cooperative Thought process: Normal thought process present and not confabulating Thought content: Normal thought content present Insight: Limited insight present (Psych) Judgement: Limited judgement present (Psych) Results Reviewed Results Reviewed: Laboratory Tests 06/16/23 07/09/23 07/09/23 10:52 09:41 09:41 Estim Creat Clear Calc 41.4 Estimated GFR 50 Random Glucose 128 H Ferritin 62 Total Bilirubin 0.5 AST 35 H ALT 26 Alkaline Phosphatase 69 TSH 7.52 H Free T4 0.65 L US of abdomen 02/19/23 FINDINGS: PANCREAS: Largely obscured by overlapping bowel gas. ABDOMINAL AORTA: The proximal segment is obscured by overlapping bowel gas. The mid and distal segments are normal in caliber. INFERIOR VENA CAVA: Visualized portions are normal. LIVER: The liver is normal in size. The liver contour is normal. There is diffuse increased liver parenchymal echogenicity. No focal hepatic lesion. There is no intrahepatic biliary duct dilatation seen. A right hepatic lobe capsular calcification is redemonstrated. GALLBLADDER: Surgically absent. COMMON BILE DUCT: Normal in caliber measuring 0.4 cm in diameter. RIGHT KIDNEY: Normal. No hydronephrosis. No renal calculi or focal parenchymal lesions. The kidney measures 9.6 cm in maximum dimension. LEFT KIDNEY: Normal. No hydronephrosis. No renal calculi or focal parenchymal lesions. The kidney measures 10.3 cm in maximum dimension. SPLEEN: Normal. The spleen measures 8.4 cm in maximum dimension. FREE FLUID: None. US/US abdomen complete IMPRESSION: 1. There is generalized increase in hepatic echotexture, consistent with fatty infiltration or hepatocellular disease. Please correlate clinically. No focal hepatic mass or intrahepatic biliary dilatation is seen. 2. The gallbladder is surgically absent. 3. Technically limited ultrasound examination of the pancreas and abdominal great vessels. Assessment & Plan Assessment & Plan (1) Chronic idiopathic constipation: Code(s): K59.04 - Chronic idiopathic constipation (2) VAZQUEZ (nonalcoholic steatohepatitis): Comment: BASELINE LABS 03/13/22 Plt Count 258 Estimated GFR > 60 Ferritin 43 Total Bilirubin 0.8 AST 179 H ALT 108 H Alkaline Phosphatase 106 D 04/16/22 Plt Count 267 Hemoglobin A1c % 6.2 Ferritin 21 Total Bilirubin 0.5 GGT 149 H AST 71 H ALT 58 H Anti-Mitochondrial Ab NEGATIVE Anti-Smooth Muscle Ab <20 Hepatitis A IgM Ab Nonreactive Hep Bs Antigen Negative Hep Bs Antibody NONREACTIVE Hep B Core Total Ab Nonreactive Hepatitis C Ab (EIA) Nonreactive HIV 1&2 Ab/P24 Ag 4thGn Nonreactive She does not drink ETOH ULTRASOUND THE ABDOMEN WITH ELASTOGRAPHY (F0-F1) CURRENT LABS ULTRASOUND THE ABDOMEN WITH ELASTOGRAPHY (F0-F1) 06/16/2400 10:5209:4109:41 Estim Creat Clear Calc 41.4 Estimated GFR 50 Random Glucose 128 H Ferritin 62 Total Bilirubin 0.5 AST 35 H ALT 26 Alkaline Phosphatase 69 TSH 7.52 H Free T4 0.65 L US of abdomen 02/19/23 US/US abdomen complete IMPRESSION: 1. There is generalized increase in hepatic echotexture, consistent with fatty infiltration or hepatocellular disease. Please correlate clinically. No focal hepatic mass or intrahepatic biliary dilatation is seen. 2. The gallbladder is surgically absent. 3. Technically limited ultrasound examination of the pancreas and abdominal great vessels. Code(s): K75.81 - Nonalcoholic steatohepatitis (VAZQUEZ) (3) GERD (gastroesophageal reflux disease): Code(s): K21.9 - Gastro-esophageal reflux disease without esophagitis Plan MALAWIAN #Ana Maria Live She has had increasing trouble with CIC, but she also has seemingly, new onset thyroid disease. They seem to be in the process of titrating the replacement medication. This is severely complicating her constipation and causing her a lot of bloating pain and cramping especially periumbilically and in the lower abdomen. Also, she says she drinks a lot of water but when I question her more thoroughly she only seems to drink what might be an 8 oz glass twice a day. She also tells me she only urinates twice a day. Clearly she has not drinking anywhere near enough water and I educate her that she needs to fill a 2 L bottle with water and try to drink that amount slowly throughout the day. This will help her not only with her stooling (especially since we have maximized many chronic constipation medicines) but also with her recurrent urine tract infections and her general health. She continues on her pantoprazole bid, simethicone, LInzess and bisacodyl. She also takes reglan qidachs. She tells me her diabetes has also been more poorly controlled recently this may be also related to her thyroid. She has continuous trouble with opening fissures on her left foot, appears to be r/t diabetic skin and cracking. She is using a cream. She will be seeing a senior core java developer soon and I encouraged her to show this to them as well to see if they can do something to promote good healing. A med try adding lactulose to her already complex regimen of Linzess once a day bisacodyl 3 at night and metoclopramide 10 mg 4 times a day. She is also having worse acid reflux which would be expected given the severity of the constipation. For now she continues on her pantoprazole 40 mg in the day and famotidine at night. Return office visit in 4 weeks to evaluate her response to lactulose. Medications: New lactulose 20 grams (30 mL) PO TID 3,000 mL 6RF K59.04 - Chronic idiopathic constipation Coding Level of Care Code Est Pt Level 3 (38419) Diagnoses Chronic idiopathic constipation K59.04 VAZQUEZ (nonalcoholic steatohepatitis) K75.81 GERD (gastroesophageal reflux disease) K21.9
== END 2023-07-31 11:22 | disposition home or self-care (01) ==
PROVIDERS: PCP Internal Medicine; Visit Provider Nurse Practitioner
DX: K59.04 Chronic idiopathic constipation (principal); K75.81 Nonalcoholic steatohepatitis (NASH); K21.9 Gastro-esophageal reflux disease without esophagitis
CPT/HCPCS: 99213

== ENCOUNTER → 2023-07-31 10:39 | Outpatient (BNVA) | payer OTHER, SELFPAY | PROVIDERS: PCP Internal Medicine; Visit Provider Nurse Practitioner | DX: K59.04 Chronic idiopathic constipation (principal); K75.81 Nonalcoholic steatohepatitis (NASH); K21.9 Gastro-esophageal reflux disease without esophagitis | CPT/HCPCS: 99212 ==

== ENCOUNTER 2023-08-20 06:16 | Outpatient (REF) | payer OTHER, SELFPAY ==
--- NOTE | ~2023-08-20 | FL_ITS ---
EXAMINATION: XR FLUOROSCOPY WITH IMAGES CLINICAL INFORMATION: Spondylosis without myelopathy or radiculopathy, lumbar region. COMPARISON: None available. TECHNIQUE: Fluoroscopy Supervised By: Dr. Hooks. Fluoroscopy Time: 0.1 min. Cumulative Dose: 2.10 mGy. DAP: 0.294 Gy-cm2. Images: 2. FINDINGS: 2 images demonstrate 4 needles overlying the lower lumbosacral spine with contrast injected near the needle tips. Please see Dr. Hooks' procedure report for full details. FL/FL guidance in treatment room IMPRESSION: Fluoroscopy and spot films provided during lumbar injection.
== END 2023-08-20 06:17 | disposition home or self-care (01) ==
LOC: CF 06:16
PROVIDERS: Visit Provider Internal Medicine
DX: M47.816 Spondylosis without myelopathy or radiculopathy, lumbar region (principal)
CPT/HCPCS: 64493; 64494; J2795; Q9967

== ENCOUNTER 2023-08-20 08:13 | Outpatient (AMB) | payer OTHER, SELFPAY ==
--- NOTE | 2023-08-20 08:21 | A.OFFVIS_ITS ---
Intake Vital Signs 08/20/23 08:22 08/20/23 09:33 Height 5 ft Weight 153 lb BMI 29.9 BP 126/70 124/60 Blood Pressure Location Lt brachial Lt brachial Position Sitting Sitting Respiration 18 18 Pulse 72 74 Pulse Source Pulse Oximeter Pulse Oximeter Pulse Oximetry (%) 96 98 Oxygen Delivery Method Room Air Room Air Comment Pre-Op Post-Op Intake Visit Reasons: BILATERAL DIAGNOSTIC L3, L4, DRL5 MBB Allergies No Known Allergies [No Known Allergies*] Allergy (Verified 07/31/23 10:51) HPI BILATERAL DIAGNOSTIC L3, L4, DRL5 MBB HPI Details Patient presents for scheduled procedure. Denies any recent cough, cold, infection, fever or other significant changes in medical history since last office visit. [facility] Medical History (Updated 08/05/23 @ 17:02 by ABE Breen) Asthma ANGIE (obstructive sleep apnea) Diabetes Esophageal dysmotilities Esophageal candidiasis Pneumonia Cystitis Recurrent UTI (urinary tract infection) Dysuria Vitamin D deficiency Hypothyroidism Osteoporosis B12 deficiency Iron deficiency anemia IBS (irritable bowel syndrome) Surgical History Hx of gastric bypass History of esophagogastroduodenoscopy (EGD) Hx of colonoscopy History of arthroscopy of left shoulder Family History Father No problems noted. 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 The patient was placed in a prone position. The respective lumbosacral area was prepped with chloraprep and draped in sterile fashion. The skin over the target medial branch nerves was anesthetized with 0.5% lidocaine. A 22 gauge 3.5 inch needle was inserted into the target medial branch nerve under fluoroscopic guidance. No paresthesias were elicited with needle placement and aspiration was negative for blood and CSF. Next, 0.2cc of omnipaque 180 was injected to verify positioning. Next 0.5 ml 0.5% ropivicaine was injected (0.5cc total per level). The identical procedure was performed at the remaining levels. The skin was cleansed and a sterile bandage was applied. Following the procedure the patient's vital signs were stable. The patient tolerated the procedure well and no complications were encountered. Following the procedure the patient's vital signs were stable. The patient was discharged home in good condition with post-procedural instructions. Time Out: Immediately prior to the procedure, the following was verbally confirmed that there is a signed consent form and that the correct patient, planned procedure, site and side are consistent with documentation and that necessary equipment and/or blood products are available prior to the start of the case. Complications: none EBL: <5 cc 17535 - second level, with Fluoroscopy (bilateral) Procedure code (CPT) selection complete Assessment & Plan Assessment & Plan (1) Lumbar spondylosis: Code(s): M47.816 - Spondylosis without myelopathy or radiculopathy, lumbar region Plan Patient is status post bilateral diagnostic L3, L4 medial branches and L5 dorsal ramus blocks. Patient tolerated procedure well and was discharged home in stable condition with discharge instructions. All questions were answered. We will follow-up via telephone or in clinic to assess response to therapy. A follow-up appointment was made during today's visit. Orders: Orders FL guidance in treatment room Today M47.816 - Spondylosis without myelopathy or radiculopathy, lumbar region Coding Level of Care Code Procedure Only Diagnoses Lumbar spondylosis M47.816 CPT Codes Facet Injection-Lumbar/Sacral - CPT: 48407 - second level, with Fluoroscopy ([id number])
[2023-08-20 08:22] VITALS: BP 126/70; PULSE 72; RESP 18; O2SAT 96; BMI 29.9
[2023-08-20 09:33] VITALS: BP 124/60; PULSE 74; RESP 18; O2SAT 98
== END 2023-08-20 09:30 | disposition home or self-care (01) ==
PROVIDERS: PCP Internal Medicine; Visit Provider Internal Medicine
DX: M47.816 Spondylosis without myelopathy or radiculopathy, lumbar region (principal)
CPT/HCPCS: 64493; 64494

== ENCOUNTER 2023-08-28 08:58 | Outpatient (AMB) | payer OTHER, SELFPAY ==
--- NOTE | 2023-08-28 09:04 | A.OFFVIS_ITS ---
Intake Vital Signs 08/28/23 09:05 Height 5 ft Weight 155 lb 10.342 oz BMI 30.4 BP 116/55 L Blood Pressure Location Rt brachial Position Sitting Pulse 79 Intake Visit Reasons: 4 week follow up Intake Note: Hayley returns to in office visit today in follow up of CIC. CC: Patient states that the Lactulose has helped her with constipation and she is feeling well. Denies having any new GI concerns today. Behavioral Assistant Required: Yes Allergies No Known Allergies [No Known Allergies*] Allergy (Verified 08/28/23 09:08) HPI 4 week follow up HPI Details Assessment & Plan (1) Chronic idiopathic constipation: Code(s): K59.04 - Chronic idiopathic constipation (2) VAZQUEZ (nonalcoholic steatohepatitis): Comment: BASELINE LABS 03/13/22 Plt Count 258 Estimated GFR > 60 Ferritin 43 Total Bilirubin 0.8 AST 179 H ALT 108 H Alkaline Phosphatase 106 D 04/16/22 Plt Count 267 Hemoglobin A1c % 6.2 Ferritin 21 Total Bilirubin 0.5 GGT 149 H AST 71 H ALT 58 H Anti-Mitochondrial Ab NEGATIVE Anti-Smooth Muscle Ab <20 Hepatitis A IgM Ab Nonreactive Hep Bs Antigen Negative Hep Bs Antibody NONREACTIVE Hep B Core Total Ab Nonreactive Hepatitis C Ab (EIA) Nonreactive HIV 1&2 Ab/P24 Ag 4thGn Nonreactive She does not drink ETOH ULTRASOUND THE ABDOMEN WITH ELASTOGRAPHY (F0-F1) CURRENT LABS ULTRASOUND THE ABDOMEN WITH ELASTOGRAPHY (F0-F1) 06/16/2400/ 10:5209:[id number]:41 Estim Creat Clear Calc 41.4 Estimated GFR 50 Random Glucose 128 H Ferritin 62 Total Bilirubin 0.5 AST 35 H ALT 26 Alkaline Phosphatase 69 TSH 7.52 H Free T4 0.65 L US of abdomen 02/19/23 US/US abdomen complete IMPRESSION: 1. There is generalized increase in hepa tic echotexture, consistent with fatty infiltration or hepatocellular disease. Please correlate clinically. No focal hepatic mass or intrahepatic biliary dilatation is seen. 2. The gallbladder is surgically absent. 3. Technically limited ultrasound examin ation of the pancreas and abdominal great vessels. Code(s): K75.81 - Nonalcoholic steatohepatitis (VAZQUEZ) (3) GERD (gastroesophageal reflux diseas e): Code(s): K21.9 - Gastro-esophageal reflux disease without esophagitis Plan [facility] She has had increasing trouble with CIC, but she also has seemingly, new onset thyroid disease. They seem to be in the process of titrating the replacement medication. This is severely complicating her constipation and causing her a lot of bloating pain and cramping especially periumbilically and in the lower abdomen. Also, she says she drinks a lot of water but when I question her more thoroughly she only seems to drink what might be an 8 oz glass twice a day. She also tells me she only urinates twice a day. Clearly she has not drinking anywhere near enough water and I educate her that she needs to fill a 2 L bottle with water and try to drink that amount slowly throughout the day. This will help her not only with her stooling (especially since we have maximized many chronic constipation medicines) but also with her recurrent urine tract infections and her general health. She continues on her pantoprazole bid, simethicone, LInzess and bisacodyl. She also takes reglan qidachs. She tells me her diabetes has also been more poorly controlled recently this may be also related to her thyroid. She has continuous trouble with opening fissures on her left foot, appears to be r/t diabetic skin and cracking. She is using a cream. She will be seeing a pathology lab technician soon and I encouraged her to show this to them as well to see if they can do something to promote good healing. A med try adding lactulose to her already complex regimen of Linzess once a day bisacodyl 3 at night and metoclopramide 10 mg 4 times a day. She is also having worse acid reflux which would be expected given the severity of the constipation. For now she continues on her pantoprazole 40 mg in the day and famotidine at night. Return office visit in 4 weeks to evaluate her response to lactulose. Medications: New lactulose 20 grams (30 mL) P O TID 3,000 mL 6RF K59.04 - Chronic i diopathic constipa tion TODAY'S VISIT [facility] She expresses concern that she needs a repeat colonoscopy, she thought she had a hx of polyps, but she has not had any scope that were not at this facility and I research back to 2011 and she has never had any colon polyps. She has had some gastric polyps biopsied in the past so I think this has confused her. The only family member who had polyps was a cousin. I advise her that she is not due until 2028 - I will send a note to her PCP who though that the pt was due but her last was in 2019. She continues on her pantoprazole bid, simethicone, LInzess and bisacodyl. She also takes reglan qidachs. She just had a back injection, she has not yet felt relief but this could take some time. ROV 6 mos. The lactulose along with her other medications is now controlling her CIC well. [facility], [facility] Medical History (Updated 08/28/23 @ 16:28 by ABE Breen) Asthma ANGIE (obstructive sleep apnea) Diabetes Esophageal dysmotilities Esophageal candidiasis Pneumonia Cystitis Recurrent UTI (urinary tract infection) Dysuria Vitamin D deficiency Hypothyroidism Osteoporosis B12 deficiency Iron deficiency anemia IBS (irritable bowel syndrome) Surgical History Hx of gastric bypass History of esophagogastroduodenoscopy (EGD) Hx of colonoscopy History of arthroscopy of left shoulder Family History Father No problems noted. 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 Patient Tobacco Use Status: Never used Tobacco service: No Current occupational status: disabled Review of Systems Const Denies fatigue, Denies fever(s), Denies night sweats, Denies poor appetite and Denies weight loss ENT Reports Normal hearing present, Denies dental pain, Denies dysphagia, Denies hearing loss, Denies mouth pain, Denies odynophagia, Denies throat swelling, Denies tongue swelling and Reports other (Dentition adequate) Card Reports no additional complaints Resp Reports no additional complaints GI Details: Denies abdominal pain, Denies melena, Reports bloating, Denies hematochezia, Reports constipation, Denies GI cramping, Denies dysphagia, Denies excessive flatus, Denies early satiety, Reports heartburn, Denies diarrhea, Denies nausea, Denies odynophagia, Denies vomiting and Denies hematemesis Skin/Breast Denies pruritus, Denies lesions, Denies rash and Denies jaundice Neuro Reports Normal hearing present and Denies Abnormal speech present Endo Denies fatigue Aller/Immun Denies throat swelling and Denies tongue swelling Physical Exam Vital Signs: Last Vital Signs Pulse 79 08/28/23 09:05 BP 116/55 L 08/28/23 09:05 BMI result Body Mass Index 30.4 Const General: cooperative, no acute distress, well developed and well groomed Nutritional Appearance: well nourished and obese Orientation/consciousness: oriented to person, oriented to place and oriented to time Limitations: language barrier HEENT Head: Yes normocephalic and Yes atraumatic Eyes General: appearance normal, both eyes and all related structures Pupils: Equal, round and reactive pupils present Neck Neck: Yes normal visual inspection and Yes no lymphadenopathy Thyroid: Thyroid normal Resp Effort & Inspection: normal respiratory effort and able to speak in complete sentences Auscultation: clear to auscultation bilaterally Cardio Rate: regular rate Rhythm: regular rhythm Heart sounds: Normal, physiologic split S2 sound present Peripheral pulses: radial pulses present and posterior tibial pulses present GI Inspection: No distended, No Abdominal panniculus present and Yes obesity Palpation (GI): Soft to palpation, nontender, no guarding, not rigid and No hepatosplenomegaly present Percussion: Yes normal to percussion Auscultation: normal bowel sounds Rectal Exam - Female: deferred Skin General skin exam: no rashes or lesions noted, turgor normal, skin not dry, no jaundice, No spider nevi and no striae Rashes: no rashes Nails: normal Neuro General: oriented to person, oriented to place and oriented to time Cranial nerves: Yes Equal, round and reactive pupils present and Yes Normal hearing present Speech: No Abnormal speech present Extrem General: Yes normal to inspection, No clubbing, No cyanosis and No edema Psych Appearance: grossly normal and well kempt Mental Status: mental status grossly normal Speech and movement: Normal speech and movement present Affect: normal affect Attitude: cooperative Thought process: Normal thought process present and not confabulating Thought content: Normal thought content present Insight: Limited insight present (Psych) Judgement: Limited judgement present (Psych) Results Reviewed Results Reviewed: Laboratory Tests 07/09/23 09:41 Total Bilirubin 0.5 AST 35 H ALT 26 Alkaline Phosphatase 69 ULTRASOUND OF THE ABDOMEN 02/19/23 IMPRESSION: 1. There is generalized increase in hepatic echotexture, consistent with fatty infiltration or hepatocellular disease. Please correlate clinically. No focal hepatic mass or intrahepatic biliary dilatation is seen. 2. The gallbladder is surgically absent. 3. Technically limited ultrasound examination of the pancreas and abdominal great vessels. Assessment & Plan Assessment & Plan (1) GERD (gastroesophageal reflux disease): Code(s): K21.9 - Gastro-esophageal reflux disease without esophagitis (2) Chronic idiopathic constipation: Code(s): K59.04 - Chronic idiopathic constipation (3) Dysphagia: Comment: . HE EGD 09/2019 Esophagus: Tortuous esophagus with increased tertiary contractions without stricture or ring. GE junction at 34 cms. No esophagitis or [place] s. Stomach: Maurice en Y gastric bypass status. Gastric remnant from 34 to 36 cms. Normal anastomosis without ulcers. Mild gastric erythema. Biopsies were obtained. BARIUM SWALLOW 09/2020 IMPRESSION: 1. No aspiration or laryngeal penetration. 2. See speech pathologist report for further assessment and recommendation. Code(s): R13.10 - Dysphagia, unspecified (4) VAZQUEZ (nonalcoholic steatohepatitis): Comment: HER liver enzymes are not terribly deranged this can be monitored by her primary care provider at 6 month intervals and she can be return to our service for surveillance if the transaminases become greater than twice the upper limit of n ormal BASELINE LABS 03/13/22 Plt Count 258 Estimated GFR > 60 Ferritin 43 Total Bilirubin 0.8 AST 179 H ALT 108 H Alkaline Phosphatase 106 D 04/16/22 Plt Count 267 Hemoglobin A1c % 6.2 Ferritin 21 Total Bilirubin 0.5 GGT 149 H AST 71 H ALT 58 H Anti-Mitochondrial Ab NEGATIVE Anti-Smooth Muscle Ab <20 Hepatitis A IgM Ab Nonreactive Hep Bs Antigen Negative Hep Bs Antibody NONREACTIVE Hep B Core Total Ab Nonreactive Hepatitis C Ab (EIA) Nonreactive HIV 1&2 Ab/P24 Ag 4thGn Nonreactive She does not drink ETOH ULTRASOUND THE ABDOMEN WITH ELASTOGRAPHY (F0-F1) Laboratory Tests 07/09/23 09:41 Total Bilirubin 0.5 AST 35 H ALT 26 Alkaline Phosphatase 69 ULTRASOUND OF THE ABDOMEN 02/19/23 IMPRESSION: 1. There is generalized increase in hepatic echotexture, consistent with fatty infiltration or hepatocellular disease. Please correlate clinically. No focal hepatic mass or intrahepatic biliary dilatation is seen. 2. The gallbladder is surgically absent. 3. Technically limited ultrasound examination of the pancreas and abdominal great vessels. Code(s): K75.81 - Nonalcoholic steatohepatitis (VAZQUEZ) Plan [facility] She expresses concern that she needs a repeat colonoscopy, she thought she had a hx of polyps, but she has not had any scope that were not at this facility and I research back to 2011 and she has never had any colon polyps. She has had some gastric polyps biopsied in the past so I think this has confused her. The only family member who had polyps was a cousin. I advise her that she is not due until 2028 - I will send a note to her PCP who though that the pt was due but her last was in 2019. She continues on her pantoprazole bid, simethicone, LInzess and bisacodyl. She also takes reglan qidachs. She just had a back injection, she has not yet felt relief but this could take some time. WE REVIEW THE LABS AND SINCE HER liver enzymes are not terribly deranged this can be monitored by her primary care provider at 6 month intervals and she can be return to our service for surveillance if the transaminases become greater than twice the upper limit of normal. ROV 6 mos. The lactulose along with her other medications is now controlling her CIC well. Coding Level of Care Code Est Pt Level 3 (74402) Diagnoses GERD (gastroesophageal reflux disease) K21.9 Chronic idiopathic constipation K59.04 Dysphagia R13.10 VAZQUEZ (nonalcoholic steatohepatitis) K75.81
[2023-08-28 09:05] VITALS: BP 116/55; PULSE 79; BMI 30.4
== END 2023-08-28 09:41 | disposition home or self-care (01) ==
PROVIDERS: PCP Internal Medicine; Visit Provider Nurse Practitioner
DX: K21.9 Gastro-esophageal reflux disease without esophagitis (principal); K59.04 Chronic idiopathic constipation; R13.10 Dysphagia, unspecified; K75.81 Nonalcoholic steatohepatitis (NASH)
CPT/HCPCS: 99213

== ENCOUNTER → 2023-08-28 08:58 | Outpatient (BNVA) | payer OTHER, SELFPAY | PROVIDERS: PCP Internal Medicine; Visit Provider Nurse Practitioner | DX: K59.04 Chronic idiopathic constipation (principal); K21.9 Gastro-esophageal reflux disease without esophagitis; R13.10 Dysphagia, unspecified; K75.81 Nonalcoholic steatohepatitis (NASH) | CPT/HCPCS: 99212 ==

== ENCOUNTER 2023-08-31 13:00 | Outpatient (RCR) | payer OTHER, SELFPAY | END 2023-10-16 08:23 | disposition home or self-care (01) | LOC: HO.PT 13:00 | PROVIDERS: PCP Internal Medicine; Visit Provider Internal Medicine | DX: M54.9 Dorsalgia, unspecified (principal) | CPT/HCPCS: 97140; 97162; 97530; 97535 ==

== ENCOUNTER 2023-09-06 11:11 | Emergency (ER) | payer OTHER, SELFPAY ==
--- NOTE | ~2023-09-06 | XR_ITS ---
EXAMINATION: XR CHEST CLINICAL INFORMATION: Chest pain. COMPARISON: 02/24/2023. TECHNIQUE: Portable AP view of the chest was obtained. FINDINGS: No significant abnormality is noted involving the heart, lungs, bony thorax or soft tissues. Mildly atherosclerotic aorta. No evidence of adenopathy. XR/XR chest 1V IMPRESSION: Essentially unremarkable examination.
--- NOTE | 2023-09-06 11:15 | ECG_ITS ---
Test Reason : CP Blood Pressure : / mmHG Vent. Rate : 063 BPM Atrial Rate : 063 BPM P-R Int : 150 ms QRS Dur : 082 ms QT Int : 398 ms P-R-T Axes : 044 -03 032 degrees QTc Int : 407 ms Normal sinus rhythm Minimal voltage criteria for LVH, may be normal variant ( R in aVL ) Borderline ECG When compared with ECG of 20-MAR-2021 11:30, Nonspecific T wave abnormality now evident in Anterior leads Referred By: Jesenia Ho Electronically Signed By:Elver Ashton
[2023-09-06 11:16] VITALS: BP 132/78; BP 138/52; PULSE 65; PULSE 66; RESP 18; TEMP 36.5; O2SAT 99; BMI 28.1
[2023-09-06 11:47] LABS: MANUAL DIFF FLAG NO
--- NOTE | 2023-09-06 11:47 | PC.NURSE ---
patient a&ox3, iv inserted, labs drawn, nasal swab obtained, ekg performed, deputy building guard applied, pt left heel looked at per pt request, noted was no open wound- however the skin looks to be peeling in sections- pt educated about keeping feet dry as she is diabetic. call [facility] within reach, will continue to monitor
[2023-09-06 11:53] LABS: Basophils Percent Auto 0.6 % (0-2); Eosinophils Absolute Auto 0.1 X10*3/uL (0.0-0.4); Eosinophils Percent Auto 1.3 % (0-4); Hematocrit 40.1 % (37.0-47.0); Hemoglobin 12.8 g/dl (12.0-16.0); Imm Gran Abs Auto 0.01 X10*3/uL (0.00-0.03); Imm Gran Pct Auto 0.2 % (0.0-0.4); Lymphocytes Absolute Auto 0.8 X10*3/uL (1.2-4.9); Lymphocytes Percent Auto 16.1 % (20-40); Mean Corpuscular HGB Conc 31.9 g/dl (31.0-35.0); Mean Corpuscular Hemoglobin 30.9 pg (27.0-33.0); Mean Corpuscular Volume 96.9 fL (80.0-98.0); Mean Platelet Volume 10.6 fL (9.4-12.3); Monocytes Absolute Auto 0.4 X10*3/uL (0.1-1.2); Monocytes Percent Auto 7.6 % (2-11); Neutrophils Absolute Auto 3.5 x10*3/uL (2.0-8.3); Neutrophils Percent Auto 74.2 % (45-73); Platelet Count 227 X10*3/uL (160-400); Red Blood Count 4.14 X10*6/uL (4.20-5.50); Red Cell Distribution Width 13.5 % (11.0-16.0); White Blood Count 4.7 X10*3/uL (4.8-10.8)
[2023-09-06 11:59] LABS: INTERNATIONAL NORM RATIO 0.9 (0.9-1.1); Prothrombin Time 10.9 SEC (11.1-13.3)
[2023-09-06 12:01] LABS: Partial Thromboplastin Time 27.7 SEC (26.0-36.8)
[2023-09-06 12:07] LABS: Alanine Aminotransferase 141 U/L (0-31); Albumin Level 3.7 g/dL (3.5-5.0); Alkaline Phosphatase 94 U/L (39-117); Anion Gap 10 (12-20); Aspartate Amino Transferase 215 U/L (5-31); Bilirubin Total 0.4 mg/dL (0.0-1.0); Blood Urea Nitrogen 20 mg/dL (9-16); Calcium 8.9 mg/dL (8.4-10.2); Carbon Dioxide 22 mmol/L (22-29); Chloride 114 mmol/L (96-108); Estimated Glomerular Filt Rate > 60; Glucose Random 299 mg/dL (60-115); Magnesium 2.1 mg/dL (1.6-2.6); Potassium 4.6 mmol/L (3.3-5.1); Sodium 141 mmol/L (135-145); Total Protein 6.3 g/dL (6.5-8.0)
[2023-09-06 12:18] LABS: Troponin-I High Sensitivity 3068.9 ng/L (<3.5-17.0)
[2023-09-06 12:31] LABS: Influenza A PCR NEGATIVE (Negative); Influenza B PCR NEGATIVE (Negative); Resp Syncy Virus RNA Qual PCR NEGATIVE (Negative); SARS COV2 PCR INHOUSE NEGATIVE (Negative)
[2023-09-06 12:46] VITALS: BP 121/63; PULSE 77; RESP 16; TEMP 36.7; O2SAT 100
[2023-09-06] MEDS: Metoprolol Tartrate 12.5 MG HALFTAB PO (12:49)
[2023-09-06] MEDS: Aspirin 81 MG TAB.CHEW PO (12:49)
[2023-09-06 12:54] VITALS: BP 95/65; O2SAT 100
--- NOTE | 2023-09-06 12:54 | ED_ITS ---
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 felt nauseous and had 1 time vomiting, No fever, no chills, no abdominal pain, no diarrhea. Pertinent history of HTN, HDL, thyroid disease, DM. Related Data Home Medications Medication Instructions Recorded Confirmed ascorbic acid (vitamin C) 500 mg 500 mg PO BID 07/17/20 07/10/23 tablet (Vitamin C) aspirin 81 mg tablet,delayed 81 mg PO DAILY 07/17/20 07/10/23 release montelukast 10 mg tablet 10 mg PO BEDTIME 08/10/20 07/10/23 blood sugar diagnostic #10 ea 09/12/20 07/10/23 clonazepam 1 mg tablet 1 mg PO TID PRN Anxiety 09/12/20 07/10/23 dulaglutide 0.75 mg/0.5 mL 0.75 mg subcut QWEEK 09/12/20 07/10/23 subcutaneous pen injector lancets 33 gauge #100 ea 09/12/20 07/10/23 metformin 500 mg tablet,extended 500 mg PO BID 09/12/20 07/10/23 release 24 hr estradiol 0.01% (0.1 mg/gram) 1 g vaginal 3XW 10/11/20 07/10/23 vaginal cream zolpidem 10 mg tablet 1 tab PO BEDTIME 03/20/21 07/10/23 acetaminophen 500 mg tablet 500 mg PO Q6-8H PRN Pain 12/02/21 07/10/23 albuterol sulfate 90 mcg/actuation 0 mcg inhalation DAILY 12/02/21 07/10/23 aerosol inhaler (Ventolin HFA) mupirocin 2 % topical ointment 1 appl topical TID 12/02/21 07/10/23 rosuvastatin 40 mg tablet 40 mg PO DAILY 12/02/21 07/10/23 topiramate 50 mg tablet 50 mg PO BEDTIME 12/02/21 07/10/23 ipratropium 0.5 mg-albuterol 3 mg 3 ml inhalation QID 12/17/21 07/10/23 (2.5 mg base)/3 mL nebulization soln multivitamin-ferrous 1 tab PO DAILY 12/17/21 07/10/23 fumarate-folic acid 18 mg-400 mcg tablet (Certavite-Antioxidant) diclofenac sodium 1 % topical gel 1 g topical BID 02/11/22 07/10/23 methenamine hippurate 1 gram tablet 1 g PO DAILY 02/11/22 07/10/23 furosemide 20 mg tablet 20 mg PO DAILY 05/27/22 07/10/23 amlodipine 10 mg tablet 10 mg PO QAM 10/09/22 07/10/23 metoprolol succinate 50 mg 50 mg PO DAILY 10/09/22 07/10/23 tablet,extended release 24 hr gabapentin 600 mg tablet 600 mg PO TID 11/04/22 07/10/23 nitroglycerin 0.4 mg sublingual 0.4 mg sublingual DAILY 11/04/22 07/10/23 tablet isosorbide mononitrate 60 mg 60 mg PO DAILY 01/28/23 07/10/23 tablet,extended release 24 hr CPAP (CPAP Machine/Device) 03/24/23 07/10/23 rhketo-pfchyxta-sxyxqlp 24,000 cap PO BID 04/07/23 07/10/23 24,000-76,000-120,000 unit capsule,delayed rel (Creon) CPAP (CPAP Machine/Device) 07/31/23 levothyroxine 125 mcg tablet 125 mcg PO DAILY 07/31/23 venlafaxine 75 mg capsule,extended 75 mg PO DAILY 08/28/23 release 24 hr Previous Rx's Medication Instructions Recorded cholecalciferol (vitamin D3) 50 50 mcg PO DAILY 30 days #30 caps 07/23/20 mcg (2,000 unit) capsule meclizine 12.5 mg tablet 12.5 mg PO TID PRN dizziness #20 03/20/21 tabs lidocaine 5 % topical patch 1 patch topical DAILY 30 days #30 11/01/21 ea ferrous sulfate 325 mg (65 mg 325 mg PO DAILY #90 tabs 04/01/22 iron) tablet (iron) bisacodyl 5 mg tablet,delayed 15 mg (3 x 5 mg) PO BEDTIME 30 01/28/23 release (Dulcolax (bisacodyl)) days #90 tabs famotidine 20 mg tablet (Pepcid) 20 mg PO DAILY 30 days #30 tabs 01/28/23 linaclotide 290 mcg capsule 290 mcg PO QAM 30 days #30 caps 01/28/23 (Linzess) metoclopramide HCl 10 mg tablet 10 mg PO QIDACHS #120 tabs 01/28/23 pantoprazole 40 mg tablet,delayed 40 mg PO BID 30 days #60 tabs 01/28/23 release (Protonix) budesonide-formoterol HFA 160 2 puff inhalation BID 30 days 03/24/23 mcg-4.5 mcg/actuation aerosol #10.2 grams inhaler (Symbicort) cyanocobalamin (vitamin B-12) 1,000 mcg PO DAILY 06/16/23 1,000 mcg tablet folic acid 1 mg tablet 1 mg PO DAILY #90 tabs 06/21/23 lactulose 20 gram/30 mL oral 20 g (30 mL) PO TID #3,000 mL 07/31/23 solution simethicone 180 mg capsule 180 mg PO QID #120 caps 08/13/23 tramadol 50 mg tablet 50 mg PO QID PRN pain #120 tabs 09/03/23 Allergies Allergy/AdvReac Type Severity Reaction Status Date / Time No Known Allergies Allergy Verified 09/06/23 11:16 [No Known Allergies*] Review of Systems 2 Review of Systems: All other systems are reviewed and are negative Constitutional: Reports as per HPI and Reports no additional constitutional complaints Eyes: Reports as per HPI and Reports no additional eye complaints Reports system reviewed and no additional complaints, except as documented Cardiovascular: Reports as per HPI and Reports no additional cardiovascular complaints Respiratory: Reports as per HPI and Reports no additional respiratory complaints Gastrointestinal: Reports as per HPI and Reports no additional gastrointestinal complaints Genitourinary: Reports no additional female genitourinary complaints Musculoskeletal: Reports no additional musculoskeletal complaints Skin/Breast: Reports system reviewed and no additional complaints, except as docu Psychiatric: Reports no additional psychiatric complaints Endocrine: Reports no additional endocrine complaints Hematologic/Lymphatic: Reports no additional hematologic/lymphatic complaints Allergic/Immunologic: Reports no additional allergic/immunologic complaints Reports system reviewed and no additional complaints, except as documented and Reports Abnormal speech present FOR[facility]LY [facility], [facility] Past Medical History Medical History Asthma ANGIE (obstructive sleep apnea) Diabetes Esophageal dysmotilities Esophageal candidiasis Pneumonia Cystitis Recurrent UTI (urinary tract infection) Dysuria Vitamin D deficiency Hypothyroidism Osteoporosis B12 deficiency Iron deficiency anemia IBS (irritable bowel syndrome) Surgical History Hx of gastric bypass History of esophagogastroduodenoscopy (EGD) Hx of colonoscopy History of arthroscopy of left shoulder Family History Family History Father No problems noted. 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 Blood pressure on the low normal limit.. Heart rate normal. Respiratory rate normal. Temperature normal. Oxygen saturation normal. Appearance: Alert. Oriented X3. No acute distress. Head: Normal external exam. Normocephalic. Atraumatic. No Swan signs noted. No raccoon eyes noted Eyes: PERRLA. EOMI. Conjunctiva and sclera normal. Eyelids normal. ENT: TM's Normal. Pharynx normal. Uvula midline. Moist mucous membranes. No trismus noted. No drooling noted. No muffled voice noted. Neck: Normal inspection. Neck supple. FROM. No adenopathy. Thyroid Normal. No meningeal signs. No neck mass noted. CVS: Normal heart rate and rhythm. Heart sound normal. No murmurs noted. Pulses normal throughout. Respiratory: No respiratory distress. Painless inspiration. Breath sounds normal. No wheezes/rales/rhonchi noted. Chest nontender. No accessory muscle usage noted or decreased air movement noted. Abdomen: Soft and nontender. Bowel sounds normal in all 4 quadrants. No distention noted. No organomegaly noted. No visible injury noted. Back: No CVA tenderness. Full range of motion noted. Skin: Skin warm and dry. Normal skin color. Normal skin turgor. No rashes/lesions/lacerations noted. Extremities: No lower extremity edema. Extremities exhibit normal range of motion. Extremities nontender. Neuro: Oriented X 3. Cranial nerve exam: II-XII are grossly intact No motor deficit. No sensory deficit. Reflexes normal. Course Reevaluation(s) Reevaluation #1: 72-year-old female speaking history of HTN, HDL, DM with NSTEMI, given ASA, metoprolol 1 dose, blood pressure is really borderline will start fluids, consider to start the patient on nitro drip If blood pressure permits, morphine p.r.n., heparin drip. A case discussed with Dr. Huerta who recommended to transfer the patient to [facility]. Time: 13:14 Reevaluation #2: the case was discussed with Dr. Cassidy at [facility] patient was accepted to PCU at [facility] will arrange for ALS ambulance for transport. Patient's blood pressure is at the lower side I do not think it will tolerate nitro drip, patient was given IV fluids and nitro paste with 1 mg of morphine that bring patient has pain from 10/10 to 5/10. Time: 14:09 Medications Administered Generic Name Dose Route Start Last Admin Trade Name Freq PRN Reason Stop Dose Admin Heparin Sodium/Sodium Chloride 25,000 unit in 250 mls @ 0 mls/hr 09/06/23 12:45 09/06/23 13:05 Heparin Sodium,Porcine/1/2ns IVCONT 12 units/kg/hr .Q0M AMINA 7.82 mls/hr Administration Protocol Per Protocol Discontinued Medications Generic Name Dose Route Start Last Admin Trade Name Julia PRN Reason Stop Dose Admin Aspirin 81 mg 09/06/23 12:33 09/06/23 12:49 Aspirin 81 Mg Tab.Chew PO 09/06/23 12:34 81 mg ONCE ONE Administration Sodium Chloride 1,000 mls @ 999 mls/hr 09/06/23 13:08 09/06/23 13:25 Ns IV 09/06/23 14:08 999 mls/hr .Q1H1M ONE Administration Metoprolol Tartrate 12.5 mg 09/06/23 12:33 09/06/23 12:49 Metoprolol Tartrate 12.5 Mg Halftab PO 09/06/23 12:34 12.5 mg ONCE ONE Administration Protocol Morphine Sulfate 1 mg 09/06/23 13:08 09/06/23 13:25 Morphine Sulfate 2 Mg/Ml Cartridge IVPUSH 09/06/23 13:09 1 mg ONCE ONE Administration Protocol Nitroglycerin 0.5 inch 09/06/23 12:33 09/06/23 12:54 Nitroglycerin 2 % Oint 1 Gm Packet TRANSDERMA 09/06/23 12:34 Not Given ONCE ONE Medical Decision Making Differential Diagnosis Differential Diagnoses: The differential diagnosis associated with the presentation includes ( Pneumonia, pneumothorax, pleural effusion, ACS, electrolyte derangement, Severe anemia.) Admission/Observation Consideration of admission/observation: Escalation of care including admission/observation considered Consult Healthcare Provider Management of the patient was discussed with: [employer] ( Dr. Huerta) Lab Data MDM Lab Attestation statement: I reviewed the patient's lab results. 09/06/23 11:43 09/06/23 11:43 Labs: Lab Results 09/06/23 Range/Units 11:43 WBC 4.7 L (4.8-10.8) X10*3/uL RBC 4.14 L (4.20-5.50) X10*6/uL Hgb 12.8 (12.0-16.0) g/dl Hct 40.1 (37.0-47.0) % MCV 96.9 (80.0-98.0) fL MCH 30.9 (27.0-33.0) pg MCHC 31.9 (31.0-35.0) g/dl RDW 13.5 (11.0-16.0) % Plt Count 227 (160-400) X10*3/uL MPV 10.6 (9.4-12.3) fL Immature Gran % (Auto) 0.2 (0.0-0.4) % Neut % (Auto) 74.2 H (45-73) % Lymph % (Auto) 16.1 L (20-40) % Delta % (Auto) 7.6 (2-11) % Eos % (Auto) 1.3 (0-4) % Baso % (Auto) 0.6 (0-2) % Lymph # (Auto) 0.8 L (1.2-4.9) X10*3/uL Delta # (Auto) 0.4 (0.1-1.2) X10*3/uL Eos # (Auto) 0.1 (0.0-0.4) X10*3/uL Baso # (Auto) 0.0 (0.0-0.2) X10*3/uL Abs Immat Gran (auto) 0.01 (0.00-0.03) X10*3/uL Absolute Neuts (auto) 3.5 (2.0-8.3) x10*3/uL Absolute Nucleated RBC 0.000 (0.0-0.012) X10*3/uL Nucleated RBC % (auto) 0.0 (0.0-0.2) /100WBC PT 10.9 L (11.1-13.3) SEC INR 0.9 (0.9-1.1) APTT 27.7 (26.0-36.8) SEC Sodium 141 (135-145) mmol/L Potassium 4.6 (3.3-5.1) mmol/L Chloride 114 H (96-108) mmol/L Carbon Dioxide 22 (22-29) mmol/L Anion Gap 10 L (12-20) BUN 20 H (9-16) mg/dL Creatinine 0.82 (0.5-1.4) mg/dL Estim Creat Clear Calc 53.0 Estimated GFR > 60 Random Glucose 299 H (60-115) mg/dL Calcium 8.9 (8.4-10.2) mg/dL Magnesium 2.1 (1.6-2.6) mg/dL Total Bilirubin 0.4 (0.0-1.0) mg/dL AST 215 H (5-31) U/L ALT 141 H (0-31) U/L Alkaline Phosphatase 94 (39-117) U/L Troponin I High Sens 3068.9 H* (<3.5-17.0) ng/L Total Protein 6.3 L (6.5-8.0) g/dL Albumin 3.7 (3.5-5.0) g/dL Influenza Type A (PCR) NEGATIVE (Negative) Influenza Type B (PCR) NEGATIVE (Negative) RSV RNA Qual (PCR) NEGATIVE (Negative) SARS-CoV-2 RNA (RT-PCR) NEGATIVE (Negative) Independent Interpretation I performed an independent interpretation of an: EKG ( Normal sinus rhythm at 63 beats per minutes. No ST-T changes.) and Plain X-Ray ( chest: Unremarkable x-ray.) Radiology Impression Discussion of test interpretation with radiology: I have reviewed the radiologist's reading. Chronic Conditions Patient?s care impacted by: Diabetes and Hypertension Critical Care Time Critical Care Time Critical Care Time: Yes Total Critical Care Time: 60 Attestation: I spent 60 minutes providing critical care service to the patient, this including time spent at the bedside to evaluate the patient, reassess the patient, monitoring vital signs, review labs, and radiographic studies, counseling the patient/family, discussing the case with consultants, disposition the patient. Discharge Plan Discharge Clinical Impression: Non-ST elevated myocardial infarction (non-STEMI) Patient Disposition: [facility] Transfer Details: CCU at [facility]. Prescriptions: No Action cholecalciferol (vitamin D3) 50 mcg (2,000 unit) capsule 50 mcg PO DAILY 30 Days Qty: 30 6RF Rx Instructions: Dose decreased to 2000 international units daily. cyanocobalamin (vitamin B-12) 1,000 mcg tablet 1,000 mcg PO DAILY 5RF folic acid 1 mg Tablet 1 mg PO DAILY Qty: 90 5RF simethicone 180 mg capsule 180 mg PO QID Qty: 120 2RF tramadol 50 mg tablet 50 mg PO QID PRN (Reason: pain) Qty: 120 3RF aspirin 81 mg Tablet,Delayed Release (Dr/Ec) 81 mg PO DAILY ascorbic acid (vitamin C) [Vitamin C] 500 mg Tablet 500 mg PO BID ferrous sulfate [iron] 325 mg (65 mg iron) Tablet 325 mg PO DAILY Qty: 90 3RF estradiol 0.01 % (0.1 mg/gram) cream 1 g vaginal 3XW Patient Comments: add as new rx upon dc zolpidem 10 mg tablet 1 tab PO BEDTIME meclizine 12.5 mg tablet 12.5 mg PO TID PRN (Reason: dizziness) Qty: 20 0RF clonazepam 1 mg tablet 1 mg PO TID PRN (Reason: Anxiety) dulaglutide 0.75 mg/0.5 mL pen injector 0.75 mg subcut QWEEK (DME) lancets 33 gauge misc See Rx Instructions Not Applicable BID Qty: 100 Rx Instructions: As directed (DME) blood sugar diagnostic Strip See Rx Instructions Not Applicable BID Qty: 10 Rx Instructions: As directed metformin 500 mg tablet extended release 24 hr 500 mg PO BID montelukast 10 mg tablet 10 mg PO BEDTIME lidocaine 5 % adhesive patch,medicated 1 patch topical DAILY 30 Days Qty: 30 0RF Rx Instructions: leave on most painful area for up to 12 hrs Certavite-Antioxidant 18-400 mg-mcg tablet 1 tab PO DAILY ipratropium-albuterol 0.5 mg-3 mg(2.5 mg base)/3 mL solution for nebulization 3 ml inhalation QID methenamine hippurate 1 gram tablet 1 g PO DAILY diclofenac sodium 1 % gel 1 g topical BID nitroglycerin 0.4 mg tablet, sublingual 0.4 mg sublingual DAILY gabapentin 600 mg tablet 600 mg PO TID albuterol sulfate [Ventolin HFA] 90 mcg/actuation HFA aerosol inhaler 0 mcg inhalation DAILY mupirocin 2 % ointment 1 appl topical TID acetaminophen 500 mg tablet 500 mg PO Q6-8H PRN (Reason: Pain) topiramate 50 mg tablet 50 mg PO BEDTIME rosuvastatin 40 mg tablet 40 mg PO DAILY furosemide 20 mg tablet 20 mg PO DAILY amlodipine 10 mg tablet 10 mg PO QAM metoprolol succinate 50 mg tablet extended release 24 hr 50 mg PO DAILY isosorbide mononitrate 60 mg tablet extended release 24 hr 60 mg PO DAILY pantoprazole [Protonix] 40 mg tablet,delayed release (DR/EC) 40 mg PO BID 30 Days Qty: 60 6RF metoclopramide HCl 10 mg tablet 10 mg PO QIDACHS Qty: 120 6RF bisacodyl [Dulcolax (bisacodyl)] 5 mg tablet,delayed release (DR/EC) 15 mg PO BEDTIME 30 Days Qty: 90 6RF famotidine [Pepcid] 20 mg tablet 20 mg PO DAILY 30 Days Qty: 30 6RF Linzess 290 mcg capsule 290 mcg PO QAM 30 Days Qty: 30 6RF Creon 24,000-76,000 -120,000 unit capsule,delayed release(DR/EC) 24,000 cap PO BID levothyroxine 125 mcg tablet 125 mcg PO DAILY (DME) CPAP Machine/Device Device See Rx Instructions .ROUTE Rx Instructions: As directed lactulose 20 gram/30 mL solution 20 g PO TID Qty: 3000 6RF venlafaxine 75 mg capsule,extended release 24hr 75 mg PO DAILY (DME) CPAP Machine/Device Device See Rx Instructions .Route Rx Instructions: As directed budesonide-formoterol [Symbicort] 160-4.5 mcg/actuation HFA aerosol inhaler 2 puff inhalation BID 30 Days Qty: 10.2 11RF
--- NOTE | 2023-09-06 12:54 | PC.NURSE ---
holding nitro per provider due to pt BP fluctuations
[2023-09-06] MEDS: Heparin Sodium,Porcine/1/2NS 25,000 UNIT/250 ML IV.SOLN 7.82 UNIT IVCONT (13:05)
[2023-09-06] MEDS: 0.9 % Sodium Chloride 1,000 ML 999 ML IV (13:25)
[2023-09-06] MEDS: Morphine Sulfate 2 MG/ML CARTRIDGE 1 MG IVPUSH (13:25)
--- NOTE | 2023-09-06 13:29 | PC.NURSE ---
ivf started per order, hep drip started per order, pt medicated for pain.
[2023-09-06 14:25] VITALS: BP 118/51; PULSE 61; RESP 16; TEMP 36.6; O2SAT 94
--- NOTE | 2023-09-06 14:27 | PC.NURSE ---
report called to [facility] to Angelica.
[2023-09-06 14:41] VITALS: BP 118/51; PULSE 61; RESP 16; TEMP 36.6; O2SAT 94
== END 2023-09-06 14:42 | disposition short-term general hospital (02) ==
PROVIDERS: Physician Assistant Medical; Emergency Provider Emergency Medicine
DX: I21.4 Non-ST elevation (NSTEMI) myocardial infarction (principal); E11.9 Type 2 diabetes mellitus without complications; I10 Essential (primary) hypertension; Z11.52 Encounter for screening for COVID-19; Z20.828 Contact with and (suspected) exposure to other viral communicable diseases
CPT/HCPCS: 0241U; 71045; 80053; 83735; 84484; 85025; 85610; 85730; 93005; 96361; 96374; 96375; 99285; J1644; J2270

== ENCOUNTER → 2023-09-06 11:15 | Outpatient (BNV) | payer OTHER, SELFPAY | PROVIDERS: Emergency Provider Emergency Medicine; Visit Provider Internal Medicine Cardiovascular Disease | DX: R07.9 Chest pain, unspecified (principal) | CPT/HCPCS: 93010 ==

== ENCOUNTER 2023-09-25 09:17 | Outpatient (AMB) | payer OTHER, SELFPAY ==
[2023-09-25 09:27] VITALS: BP 100/48; PULSE 62; O2SAT 98; BMI 29.3
--- NOTE | 2023-09-25 09:27 | MHC.OFFVIS ---
Intake Vital Signs 09/25/23 09:27 Height 5 ft Weight 150 lb BMI 29.3 BP 100/48 L Blood Pressure Location Lt brachial Position Sitting Pulse 62 Pulse Source Pulse Oximeter Pulse Oximetry (%) 98 Oxygen Delivery Method Room Air Intake Visit Reasons: asthma/angie Allergies No Known Allergies [No Known Allergies*] Allergy (Verified 09/25/23 09:29) HPI HPI Comments History of Present Illness Details The patient is a 72-year-old woman with the history of asthma in addition to obstructive sleep apnea. Apparently she has been on the Trelegy inhaler in addition to her rescue inhaler. Seems like she is not using the Trelegy. She does not like the powder and this med is helping her. She does use a Ventolin inhaler multiple times a day however. Denies any significant cough chest congestion. She has many chest tightness and wheezing at times. I do believe that she may do better with Symbicort as it is more potent and she may feel the affects of bed and she understands that she will use it twice a day. In the meantime the patient also has underlying daytime drowsiness. Her [place] score is elevated 10/24. The patient does have significant snoring at nighttime. She did undergo a sleep study that was done back in 01/2023 demonstrating mild sleep apnea with significant hypoxia. The patient will benefit from starting CPAP at this time. She is looking for to using it and using a small mask. 06/22/2023 the patient is here for a pulmonary follow-up visit. Overall the patient has been doing fairly well from a respiratory status. She does have some musculoskeletal back pain when she is breathing and doing certain house chores. Otherwise, denies any wheezing or chest tightness. She continues on the inhalers with good response. In addition to that she does have daytime drowsiness. Her [place] score is elevated 11/24. She did get her new CPAP. However she does not know how to use it. She did bring it in. We did take time to teach her how to set up. We did set up with the right mask which is the N20 small mask with the slight and tubing and also decreased her pressures to 4-8 maximum. The patient may also benefit from a chin strap. The patient will start using her CPAP every night for 4 hours. She will return in a couple months with the machine needs we can help her further get used to it. It is difficult for to get used to the equipment, but, in no will help her when she gets comfortable with the equipment in the mask and we can set the right pressure settings for her. 09/25/2023 the patient is here for pulmonary follow-up visit. Overall the patient is doing fair. She recently was hospitalized with a non ST elevation ID. She was initially evaluated at [facility] and then transferred over to [facility] where she underwent PCI. The patient had an echocardiogram with an EF of 40%. She is still weak and she still recovering. But she is feeling better. She has been using a new CPAP. The CPAP therapy has been affecting beneficial. She does use it for more than 4 hours a night. The average pressure comes out to be around 7 cm of pressure. The patient sometimes opens her mouth and she does have an air leak. I will request a chinstrap from her [employer], [place]. Her respiratory medications are stable right now. The patient overall has been recovering. She is awaiting to get a little stronger to go to rehabilitation. [facility] Medical History Asthma ANGIE (obstructive sleep apnea) Diabetes Esophageal dysmotilities Esophageal candidiasis Pneumonia Cystitis Recurrent UTI (urinary tract infection) Dysuria Vitamin D deficiency Hypothyroidism Osteoporosis B12 deficiency Iron deficiency anemia IBS (irritable bowel syndrome) Surgical History Hx of gastric bypass History of esophagogastroduodenoscopy (EGD) Hx of colonoscopy History of arthroscopy of left shoulder Family History Father No problems noted. 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 Patient Tobacco Use Status: Never used Tobacco service: No Current occupational status: disabled Review of Systems Const Denies daytime sleepiness, Reports difficulty sleeping and Denies snoring ENT Reports nasal congestion and Reports nasal discharge Card Denies chest pain Resp Reports cough, Denies snoring and Denies wheezing GI Denies abdominal pain Musc Reports no additional complaints Skin/Breast Denies rash Neuro Reports no additional complaints Endo Reports no additional complaints Luis Miguel/Lymph Denies lymphadenopathy Aller/Immun Denies wheezing Physical Exam Vital Signs: Last Vital Signs Pulse 62 09/25/23 09:27 BP 100/48 L 09/25/23 09:27 Pulse Ox 98 09/25/23 09:27 Oxygen Delivery Method Room Air 09/25/23 09:27 BMI result Body Mass Index 29.3 Const General: comfortable HEENT Head: Yes normocephalic Eyes General: appearance normal, both eyes and all related structures Neck Neck: Yes supple Chest Chest palpation & inspection: normal inspection of the chest Resp Effort & Inspection: normal respiratory effort and No prolonged expiratory phase Auscultation: diminished lung sounds Cardio Rate: regular rate Rhythm: regular rhythm Heart sounds: S1 normal heart sound present and S2 normal heart sound present GI Palpation (GI): Soft to palpation Skin General skin exam: no rashes or lesions noted Extrem General: Yes no clubbing, cyanosis or edema Assessment & Plan Assessment & Plan (1) Asthma: Code(s): J45.909 - Unspecified asthma, uncomplicated Qualifiers: Asthma complication type: uncomplicated Asthma persistence: persistent Asthma severity: moderate Qualified Code(s): J45.40 - Moderate persistent asthma, uncomplicated (2) ANGIE (obstructive sleep apnea): Code(s): G47.33 - Obstructive sleep apnea (adult) (pediatric) Plan continue Symbicort AMANDA as needed start APAP, adjusted pressures 4-8, N20 small. Needs a chin strap F/U 6-8 months Coding Level of Care Code Est Pt Level 4 (63647) Diagnoses Moderate persistent asthma without complication J45.40 Asthma complication type: uncomplicated Asthma persistence: persistent Asthma severity: moderate ANGIE (obstructive sleep apnea) G47.33 Time Spent (min) 17
== END 2023-09-25 09:43 | disposition home or self-care (01) ==
PROVIDERS: PCP Internal Medicine; Visit Provider Hospitalist
DX: J45.40 Moderate persistent asthma, uncomplicated (principal); G47.33 Obstructive sleep apnea (adult) (pediatric)
CPT/HCPCS: 99214

== ENCOUNTER → 2023-09-25 09:17 | Outpatient (BNVA) | payer OTHER, SELFPAY | PROVIDERS: PCP Internal Medicine; Visit Provider Hospitalist | DX: G47.33 Obstructive sleep apnea (adult) (pediatric) (principal); J45.40 Moderate persistent asthma, uncomplicated | CPT/HCPCS: 99212 ==

== ENCOUNTER → 2023-09-27 12:29 | Outpatient (BNV) | payer OTHER, SELFPAY | PROVIDERS: Emergency Provider Student in an Organized Health Care Education/Training Program; PCP Internal Medicine; Visit Provider Internal Medicine | DX: R07.9 Chest pain, unspecified (principal) | CPT/HCPCS: 93010 ==

== ENCOUNTER 2023-09-27 12:36 | Emergency (ER) | payer OTHER, SELFPAY ==
--- NOTE | ~2023-09-27 | XR_ITS ---
EXAMINATION: XR CHEST CLINICAL INFORMATION: Chest pain COMPARISON: None available. TECHNIQUE: Frontal view of the chest was obtained. FINDINGS: No significant abnormality is noted involving the heart, lungs, mediastinum, bony thorax or soft tissues. XR/XR chest 1V IMPRESSION: Unremarkable examination.
--- NOTE | ~2023-09-27 | CT_ITS ---
EXAMINATION: CT HEAD WITHOUT CONTRAST CLINICAL INFORMATION: Headache and dizziness COMPARISON: 03/20/2021 TECHNIQUE: Contiguous axial imaging was performed from the skull base to vertex without intravenous administration of contrast. This CT examination was performed using dose optimization techniques as appropriate, variously including the following: *Automated exposure control *Adjustment of mA and/or kV according to patient size (this includes techniques or standardized protocols for targeted exams where dose is matched to indication/reason for exam; i.e. extremities or head) *Use of iterative reconstruction technique DLP: 512 mGy-cm FINDINGS: There is no evidence of acute intracranial hemorrhage or territorial infarction. No abnormal mass effect or midline shift is seen. Davis to white matter differentiation is well preserved. No extra-axial fluid collections are identified. The ventricles are normal in size. Symmetrical white matter changes most consistent with terminal supply white matter chronic lacunar ischemic/infarct involving the wick radiata and centrum semiovale. The osseous structures and soft tissues are normal. The mastoid air cells and visualized portions of the paranasal sinuses are well-aerated. CT/CT head/brain wo IV con IMPRESSION: No acute intracranial pathology.
--- NOTE | 2023-09-27 12:29 | ECG_ITS ---
Test Reason : CHEST PAIN Blood Pressure : / mmHG Vent. Rate : 065 BPM Atrial Rate : 065 BPM P-R Int : 162 ms QRS Dur : 080 ms QT Int : 376 ms P-R-T Axes : 032 018 043 degrees QTc Int : 391 ms Normal sinus rhythm Normal ECG When compared with ECG of 06-SEP-2023 11:26, No significant change was found Referred By: Nya Adler Electronically Signed By:IVAN MARIN
--- NOTE | 2023-09-27 12:33 | ED_ITS ---
HPI - General Adult General Chief complaint: Chest Pain Stated complaint: CP DIZZINESS Time Seen by Provider: 09/27/23 16:26 Source: patient and EMS Mode of arrival: EMS Limitations: other (Poor historian) History of Present Illness HPI narrative: This is a 72-year-old female history of hypertension, NAGIE, asthma, recurrent UTIs, nonalcoholic steatohepatitis, hypothyroidism presenting to the emergency department with complaints of substernal chest pressure and difficulty with deep breathing x3 days. Patient reports very hard for her to take a deep breath in it does not bother her to take a breath out. Denies chest trauma. Not on a blood thinner. She is also reporting dizziness described as lightheadedness and room spinning it started 3 days ago and it is associated with diffuse headache with intermittent blurred vision. Not blurred at this time. Patient denies recent falls or trauma. Denies fevers, chills, nausea, vomiting, abdominal pain, diarrhea, weakness. LKWT - 3 days ago NIHSS-0 Related Data Home Medications ?Medication ?Instructions ?Recorded ?Confirmed ascorbic acid (vitamin C) 500 mg 500 mg PO BID 07/17/20 07/10/23 tablet (Vitamin C) aspirin 81 mg tablet,delayed 81 mg PO DAILY 07/17/20 07/10/23 release montelukast 10 mg tablet 10 mg PO BEDTIME 08/10/20 07/10/23 blood sugar diagnostic #10 ea 09/12/20 07/10/23 clonazepam 1 mg tablet 1 mg PO TID PRN Anxiety 09/12/20 07/10/23 dulaglutide 0.75 mg/0.5 mL 0.75 mg subcut QWEEK 09/12/20 07/10/23 subcutaneous pen injector lancets 33 gauge #100 ea 09/12/20 07/10/23 metformin 500 mg tablet,extended 500 mg PO BID 09/12/20 07/10/23 release 24 hr estradiol 0.01% (0.1 mg/gram) 1 g vaginal 3XW 10/11/20 07/10/23 vaginal cream zolpidem 10 mg tablet 1 tab PO BEDTIME 03/20/21 07/10/23 acetaminophen 500 mg tablet 500 mg PO Q6-8H PRN Pain 12/02/21 07/10/23 albuterol sulfate 90 mcg/actuation 0 mcg inhalation DAILY 12/02/21 07/10/23 aerosol inhaler (Ventolin HFA) mupirocin 2 % topical ointment 1 appl topical TID 12/02/21 07/10/23 rosuvastatin 40 mg tablet 40 mg PO DAILY 12/02/21 07/10/23 topiramate 50 mg tablet 50 mg PO BEDTIME 12/02/21 07/10/23 ipratropium 0.5 mg-albuterol 3 mg 3 ml inhalation QID 12/17/21 07/10/23 (2.5 mg base)/3 mL nebulization soln multivitamin-ferrous 1 tab PO DAILY 12/17/21 07/10/23 fumarate-folic acid 18 mg-400 mcg tablet (Certavite-Antioxidant) diclofenac sodium 1 % topical gel 1 g topical BID 02/11/22 07/10/23 methenamine hippurate 1 gram tablet 1 g PO DAILY 02/11/22 07/10/23 furosemide 20 mg tablet 20 mg PO DAILY 05/27/22 07/10/23 amlodipine 10 mg tablet 10 mg PO QAM 10/09/22 07/10/23 metoprolol succinate 50 mg 50 mg PO DAILY 10/09/22 07/10/23 tablet,extended release 24 hr gabapentin 600 mg tablet 600 mg PO TID 11/04/22 07/10/23 nitroglycerin 0.4 mg sublingual 0.4 mg sublingual DAILY 11/04/22 07/10/23 tablet isosorbide mononitrate 60 mg 60 mg PO DAILY 01/28/23 07/10/23 tablet,extended release 24 hr CPAP (CPAP Machine/Device) 03/24/23 07/10/23 [id number]-[id number] 24,000 cap PO BID 04/07/23 07/10/23 24,000-76,000-120,000 unit capsule,delayed rel (Creon) CPAP (CPAP Machine/Device) 07/31/23 levothyroxine 125 mcg tablet 125 mcg PO DAILY 07/31/23 venlafaxine 75 mg capsule,extended 75 mg PO DAILY 08/28/23 release 24 hr Previous Rx's ?Medication ?Instructions ?Recorded cholecalciferol (vitamin D3) 50 50 mcg PO DAILY 30 days #30 caps 07/23/20 mcg (2,000 unit) capsule meclizine 12.5 mg tablet 12.5 mg PO TID PRN dizziness #20 03/20/21 tabs lidocaine 5 % topical patch 1 patch topical DAILY 30 days #30 11/01/21 ea ferrous sulfate 325 mg (65 mg 325 mg PO DAILY #90 tabs 04/01/22 iron) tablet (iron) bisacodyl 5 mg tablet,delayed 15 mg (3 x 5 mg) PO BEDTIME 30 01/28/23 release (Dulcolax (bisacodyl)) days #90 tabs budesonide-formoterol HFA 160 2 puff inhalation BID 30 days 03/24/23 mcg-4.5 mcg/actuation aerosol #10.2 grams inhaler (Symbicort) cyanocobalamin (vitamin B-12) 1,000 mcg PO DAILY 06/16/23 1,000 mcg tablet folic acid 1 mg tablet 1 mg PO DAILY #90 tabs 06/21/23 lactulose 20 gram/30 mL oral 20 g (30 mL) PO TID #3,000 mL 07/31/23 solution simethicone 180 mg capsule 180 mg PO QID #120 caps 08/13/23 tramadol 50 mg tablet 50 mg PO QID PRN pain #120 tabs 09/03/23 famotidine 20 mg tablet 20 mg PO DAILY #30 tabs 09/07/23 linaclotide 290 mcg capsule 290 mcg PO QAM #30 caps 09/07/23 (Linzess) metoclopramide HCl 10 mg tablet 10 mg PO QID #120 tabs 09/07/23 pantoprazole 40 mg tablet,delayed 40 mg PO BID #60 tabs 09/07/23 release Allergies Allergy/AdvReac Type Severity Reaction Status Date / Time No Known Allergies Allergy Verified 09/27/23 12:41 [No Known Allergies*] Review of Systems 2 Review of Systems: Yes all other systems are reviewed and are negative PMFSH Past Medical History Attestation statement: The following information was validated with the patient. Source: old records reviewed and nursing notes reviewed Medical History Asthma ANGIE (obstructive sleep apnea) Diabetes Esophageal dysmotilities Esophageal candidiasis Pneumonia Cystitis Recurrent UTI (urinary tract infection) Dysuria Vitamin D deficiency Hypothyroidism Osteoporosis B12 deficiency Iron deficiency anemia IBS (irritable bowel syndrome) Surgical History Hx of gastric bypass History of esophagogastroduodenoscopy (EGD) Hx of colonoscopy History of arthroscopy of left shoulder Family History Family History Father No problems noted. 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 Oriented X3.? No acute distress.? Head: Normocephalic, atraumatic, no step-offs or deformities Eyes: Pupils equal, round and reactive to light.? ENT: Pharynx normal.? Neck: Normal inspection.? Neck supple.? CVS: Normal heart rate and rhythm.? Pulses normal.? Respiratory: No respiratory distress.? Breath sounds normal.? Abdomen: Soft and nontender.? Skin: Skin warm and dry.? Normal skin color.? Normal skin turgor.? Extremities: No lower extremity edema.? No calf ttp. Global weakness Back: No midline tenderness, no C-spine tenderness, full range of motion, no CVA tenderness bilaterally Neuro: Oriented X 3.? No motor deficit.? No sensory deficit. CN 2-12 intact . Negative Romberg and pronator drift. Normal arnbmr-ax-etss, axny-iq-vokq. Course Reevaluation(s) Reevaluation #1: CBC unremarkable. Chemistry with elevated potassium 5.610 of Lokelma ordered, transaminases elevated AST 466, ALT 350, no abdominal tenderness on exam, no indication for imaging patient does have chronically elevated transaminases however today slightly higher than usual. Patient's troponin 7.5, EKG nonischemic. Will obtain a 2nd troponin at the 3 hour jameel. BNP unremarkable. D-dimer 254, unlikely PE please refer to below results. Imaging, urine pending. Age-Adjusted D-dimer for Venous Thromboembolism (VTE) from [facility] on 09/27/2023 All calculations should be rechecked by clinician prior to use RESULT SUMMARY: 355 ?g/L Age-adjusted D-dimer cutoff, DDU VTE unlikely Reported D-dimer is less than or equal to cutoff; consider alternative diagnosis INPUTS: Age ?> 72 years D-dimer level reported by lab ?> 254 ?g/L D-dimer unit type ?> 1 = DDU (unadjusted cutoff typically 230-250 or 0.23-0.25) Time: 13:53 Reevaluation #2: Repeat troponin and repeat K pending Sign out to Madhuri NEWELL Time: 16:22 Medications Administered Discontinued Medications Generic Name Dose Route Start Last Admin Trade Name Freq PRN Reason Stop Dose Admin Acetaminophen 975 mg 09/27/23 12:32 09/27/23 13:14 Acetaminophen 325 Mg Tablet PO 09/27/23 12:33 975 mg ONCE ONE Administration Sodium Zirconium Cyclosilicate 10 gm 09/27/23 13:51 09/27/23 14:54 Sodium Zirconium Cyclosilicate 10 Gm Powd.Pack PO 09/27/23 13:52 10 gm ONCE ONE Administration Medical Decision Making Medical Decision Making [facility] Narrative: 1236 72-year-old female presents with substernal chest pressure, difficulty with deep breathing and dizziness times a week. Physical exam global weakness. NIH stroke scale 0. History and physical exam concerning for possible metabolic derangements versus viral illness versus vertigo versus BPPV. Unlikely ACS, PE, dissection, stroke, posterior stroke. Will rule out orthostatic hypotension Plan labs, urine, imaging, orthostatic vitals. Differential Diagnosis Differential Diagnoses: The differential diagnosis associated with the presentation includes History and physical exam concerning for possible metabolic derangements versus viral illness versus vertigo versus BPPV. Unlikely ACS, PE, dissection, stroke, posterior stroke. Will rule out orthostatic hypotension Admission/Observation Consideration of admission/observation: Escalation of care including admission/observation considered Lab Data [facility] Lab Attestation statement: I reviewed the patient's lab results. 09/27/23 12:53 09/27/23 12:53 Labs: Lab Results 09/27/23 09/27/23 Range/Units 12:53 12:54 WBC 5.3 (4.8-10.8) X10*3/uL RBC 4.22 (4.20-5.50) X10*6/uL Hgb 12.9 (12.0-16.0) g/dl Hct 38.9 (37.0-47.0) % MCV 92.2 (80.0-98.0) fL MCH 30.6 (27.0-33.0) pg MCHC 33.2 (31.0-35.0) g/dl RDW 14.0 (11.0-16.0) % Plt Count 291 D (160-400) X10*3/uL MPV 10.7 (9.4-12.3) fL Immature Gran % (Auto) 0.2 (0.0-0.4) % Neut % (Auto) 58.5 (45-73) % Lymph % (Auto) 26.3 (20-40) % [place] % (Auto) 11.6 H (2-11) % Eos % (Auto) 2.8 (0-4) % Baso % (Auto) 0.6 (0-2) % Lymph # (Auto) 1.4 (1.2-4.9) X10*3/uL [place] # (Auto) 0.6 (0.1-1.2) X10*3/uL Eos # (Auto) 0.2 (0.0-0.4) X10*3/uL Baso # (Auto) 0.0 (0.0-0.2) X10*3/uL Abs Immat Gran (auto) 0.01 (0.00-0.03) X10*3/uL Absolute Neuts (auto) 3.1 (2.0-8.3) x10*3/uL Absolute Nucleated RBC 0.000 (0.0-0.012) X10*3/uL Nucleated RBC % (auto) 0.0 (0.0-0.2) /100WBC PT 11.3 (11.1-13.3) SEC INR 0.9 (0.9-1.1) D-Dimer High Sensitivty 254 NG/ML Sodium 141 (135-145) mmol/L Potassium 5.6 H D (3.3-5.1) mmol/L Chloride 110 H (96-108) mmol/L Carbon Dioxide 24 (22-29) mmol/L Anion Gap 13 (12-20) BUN 16 (9-16) mg/dL Creatinine 0.93 (0.5-1.4) mg/dL Estim Creat Clear Calc 54.2 Estimated GFR 59 Random Glucose 92 (60-115) mg/dL Calcium 9.5 D (8.4-10.2) mg/dL Magnesium 2.5 (1.6-2.6) mg/dL Total Bilirubin 0.7 (0.0-1.0) mg/dL AST 466 H (5-31) U/L ALT 350 H (0-31) U/L Alkaline Phosphatase 145 H (39-117) U/L Troponin I High Sens 7.5 D (<3.5-17.0) ng/L B-Natriuretic Peptide 46 (<100) pg/mL Total Protein 6.8 (6.5-8.0) g/dL Albumin 3.8 (3.5-5.0) g/dL Independent Interpretation I performed an independent interpretation of an: Plain X-Ray ( XR/XR chest 1V IMPRESSION: Unremarkable examination. ) and CT Scan (CT/CT head/brain wo IV con IMPRESSION: No acute intracranial pathology.) Radiology Impression Discussion of test interpretation with radiology: I have reviewed the radiologist's reading. Chronic Conditions Patient?s care impacted by: Other (angie, asthma ) Critical Care Time Critical Care Time Critical Care Time: No Discharge Plan Discharge Clinical Impression: Chest pain Patient Disposition: Still a Patient Prescriptions: No Action cholecalciferol (vitamin D3) 50 mcg (2,000 unit) capsule 50 mcg PO DAILY 30 Days Qty: 30 6RF Rx Instructions: Dose decreased to 2000 international units daily. cyanocobalamin (vitamin B-12) 1,000 mcg tablet 1,000 mcg PO DAILY 5RF folic acid 1 mg Tablet 1 mg PO DAILY Qty: 90 5RF simethicone 180 mg capsule 180 mg PO QID Qty: 120 2RF tramadol 50 mg tablet 50 mg PO QID PRN (Reason: pain) Qty: 120 3RF famotidine 20 mg tablet 20 mg PO DAILY Qty: 30 6RF Linzess 290 mcg capsule 290 mcg PO QAM Qty: 30 6RF pantoprazole 40 mg tablet,delayed release (DR/EC) 40 mg PO BID Qty: 60 6RF metoclopramide HCl 10 mg tablet 10 mg PO QID Qty: 120 6RF aspirin 81 mg Tablet,Delayed Release (Dr/Ec) 81 mg PO DAILY ascorbic acid (vitamin C) [Vitamin C] 500 mg Tablet 500 mg PO BID ferrous sulfate [iron] 325 mg (65 mg iron) Tablet 325 mg PO DAILY Qty: 90 3RF estradiol 0.01 % (0.1 mg/gram) cream 1 g vaginal 3XW Patient Comments: add as new rx upon dc zolpidem 10 mg tablet 1 tab PO BEDTIME meclizine 12.5 mg tablet 12.5 mg PO TID PRN (Reason: dizziness) Qty: 20 0RF clonazepam 1 mg tablet 1 mg PO TID PRN (Reason: Anxiety) dulaglutide 0.75 mg/0.5 mL pen injector 0.75 mg subcut QWEEK (DME) lancets 33 gauge misc See Rx Instructions Not Applicable BID Qty: 100 Rx Instructions: As directed (DME) blood sugar diagnostic Strip See Rx Instructions Not Applicable BID Qty: 10 Rx Instructions: As directed metformin 500 mg tablet extended release 24 hr 500 mg PO BID montelukast 10 mg tablet 10 mg PO BEDTIME lidocaine 5 % adhesive patch,medicated 1 patch topical DAILY 30 Days Qty: 30 0RF Rx Instructions: leave on most painful area for up to 12 hrs Certavite-Antioxidant 18-400 mg-mcg tablet 1 tab PO DAILY ipratropium-albuterol 0.5 mg-3 mg(2.5 mg base)/3 mL solution for nebulization 3 ml inhalation QID methenamine hippurate 1 gram tablet 1 g PO DAILY diclofenac sodium 1 % gel 1 g topical BID nitroglycerin 0.4 mg tablet, sublingual 0.4 mg sublingual DAILY gabapentin 600 mg tablet 600 mg PO TID albuterol sulfate [Ventolin HFA] 90 mcg/actuation HFA aerosol inhaler 0 mcg inhalation DAILY mupirocin 2 % ointment 1 appl topical TID acetaminophen 500 mg tablet 500 mg PO Q6-8H PRN (Reason: Pain) topiramate 50 mg tablet 50 mg PO BEDTIME rosuvastatin 40 mg tablet 40 mg PO DAILY furosemide 20 mg tablet 20 mg PO DAILY amlodipine 10 mg tablet 10 mg PO QAM metoprolol succinate 50 mg tablet extended release 24 hr 50 mg PO DAILY isosorbide mononitrate 60 mg tablet extended release 24 hr 60 mg PO DAILY bisacodyl [Dulcolax (bisacodyl)] 5 mg tablet,delayed release (DR/EC) 15 mg PO BEDTIME 30 Days Qty: 90 6RF Creon 24,000-76,000 -120,000 unit capsule,delayed release(DR/EC) 24,000 cap PO BID levothyroxine 125 mcg tablet 125 mcg PO DAILY (DME) CPAP Machine/Device Device See Rx Instructions .ROUTE Rx Instructions: As directed lactulose 20 gram/30 mL solution 20 g PO TID Qty: 3000 6RF venlafaxine 75 mg capsule,extended release 24hr 75 mg PO DAILY (DME) CPAP Machine/Device Device See Rx Instructions .Route Rx Instructions: As directed budesonide-formoterol [Symbicort] 160-4.5 mcg/actuation HFA aerosol inhaler 2 puff inhalation BID 30 Days Qty: 10.2 11RF Print Language: Divehi
[2023-09-27 12:40] VITALS: BP 141/59; PULSE 64; RESP 16; TEMP 36.5; O2SAT 99; BMI 25.4
[2023-09-27 13:00] LABS: MANUAL DIFF FLAG NO
[2023-09-27 13:01] LABS: Basophils Percent Auto 0.6 % (0-2); Eosinophils Absolute Auto 0.2 X10*3/uL (0.0-0.4); Eosinophils Percent Auto 2.8 % (0-4); Hematocrit 38.9 % (37.0-47.0); Hemoglobin 12.9 g/dl (12.0-16.0); Imm Gran Abs Auto 0.01 X10*3/uL (0.00-0.03); Imm Gran Pct Auto 0.2 % (0.0-0.4); Lymphocytes Absolute Auto 1.4 X10*3/uL (1.2-4.9); Lymphocytes Percent Auto 26.3 % (20-40); Mean Corpuscular HGB Conc 33.2 g/dl (31.0-35.0); Mean Corpuscular Hemoglobin 30.6 pg (27.0-33.0); Mean Corpuscular Volume 92.2 fL (80.0-98.0); Mean Platelet Volume 10.7 fL (9.4-12.3); Monocytes Absolute Auto 0.6 X10*3/uL (0.1-1.2); Monocytes Percent Auto 11.6 % (2-11); Neutrophils Absolute Auto 3.1 x10*3/uL (2.0-8.3); Neutrophils Percent Auto 58.5 % (45-73); Platelet Count 291 X10*3/uL (160-400); Red Blood Count 4.22 X10*6/uL (4.20-5.50); White Blood Count 5.3 X10*3/uL (4.8-10.8)
[2023-09-27 13:05] LABS: INTERNATIONAL NORM RATIO 0.9 (0.9-1.1); Prothrombin Time 11.3 SEC (11.1-13.3)
--- OUTSIDE RECORDS SUMMARY | 2023-09-27 13:06 | XMS_ITS | Continuity of Care Document ---
Author Organization [facility] Address [address] [place] [id number]- Care Team Providers Care Firing Pin Gauger Name Role Phone Cherelle Rivera MD, Mary Espinal Primary Care Physici an Encounter [facility] [place] Date(s): 04/23/23 - 04/30/23 [facility] [address] [place] [address]- Attending Physician: Not on Staff, Attending MD Allergies, Adverse Reactions, Alerts No Known Allergies Medications 20/30 knee high compression stockings with zipper 20/30 knee high compression stockings with zipper, See Instructions, # 4 pair, Refills 4, Tot. Refills 4, Maintenance, Apply daily in the am and remove at bedtime, 03/26/17 9:37:30, Compound Start Date: 03/26/17 Status: Ordered Ambien 10 mg oral tablet 1 tablet = 10 mg, By Mouth, Daily at bedtime, 0 Refills, Maintenance Start Date: 03/02/12 Status: Ordered amitriptyline 100 mg oral tablet 1 tablet = 100 mg, By Mouth, Daily at bedtime, 0 Refills, Maintenance, 09/23/18 10:59:44 EDT Start Date: 09/23/18 Status: Ordered aspirin 81 mg oral enteric coated tablet 1 tablet = 81 mg, By Mouth, Daily, 0 Refills, Maintenance Start Date: 05/17/13 Status: Ordered Ativan 1 mg oral tablet See Instructions, take 1 tablet at bedtime the night before the procedure and 1 tablet 1-1/2 hour prior to the procedure, # 2 tablet, 0 Refills, Maintenance, 03/26/16 15:05:51, Tablet Start Date: 03/26/16 Status: Ordered cerovite cerovite, Refills 0, Maintenance, 09/11/17 8:56:15 EDT, Compound Start Date: 09/11/17 Status: Ordered clonazepam 0.5 mg oral tablet 1 tablet = 0.5 mg, By Mouth, 3 times a day, 0 Refills, Maintenance Start Date: 03/02/12 Status: Ordered Compression Stockings See Instructions, # 1 each, Refills 0, Tot. Refills 0, Maintenance, surgical, calf length 20-30 mm Hg, 04/14/22 13:46:00 EDT, Supply Start Date: 04/14/22 Status: Ordered Compression stockings Compression stockings, See Instructions, # 2 pair, Refills 2, Tot. 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, 12/02/13 9:58:22, Compound Start Date: 12/02/13 Status: Ordered cyanocobalamin 1000 mcg/ml injectable solution Intramuscular, Every 28 days, 0 Refills, Maintenance Start Date: 03/02/12 Status: Ordered folic acid 1 mg oral tablet 1 mg, 1, tablet, By Mouth, Daily, # 30 tablet, Refills 0, Maintenance, 01/04/19 10:15:51 EDT Start Date: 01/04/19 Status: Ordered gabapentin 400 mg oral capsule 1 capsule = 400 mg, By Mouth, 3 times a day, 0 Refills, Maintenance Start Date: 05/17/13 Status: Ordered glucose 4 gm oral tablet, chewable 4 tablet = 16 Gm, Once, 0 Refills, Maintenance Start Date: 03/02/12 Status: Ordered Juxtafit Knee-high Compression Garments(bilateral, left, right) with 2 pairs of liners Juxtafit Knee-high Compression Garments(bilateral, left, right) with 2 pairs of liners, See Instructions, # 1 kit, Refills 0, Tot. Refills 0, Maintenance, as directed 20/30 mmhg, 04/29/22 16:11:00 EST, Supply Start Date: 04/29/22 Status: Ordered levothyroxine 0.1 mg oral tablet 1 tablet = 100 mcg, By Mouth, Daily, 0 Refills, Maintenance Start Date: 03/02/12 Status: Ordered metformin 500 mg oral tablet 1 tablet = 500 mg, By Mouth, 2 times a day, 0 Refills, Maintenance Start Date: 03/02/12 Status: Ordered metoprolol 25 mg oral tablet 0.5 tablet = 12.5 mg, By Mouth, 2 times a day, # 30 tablet, 6 Refills, Maintenance, 09/28/13 15:19:29, Tablet, 0.5 tablet By Mouth 2 times a day,x30 days Start Date: 09/28/13 Stop Date: 04/26/14 Status: Ordered montelukast 10 mg oral tablet 10 mg, 1, tablet, By Mouth, Daily, Refills 0, Maintenance, 01/04/19 10:17:08 EDT Start Date: 01/04/19 Status: Ordered omeprazole 40 mg oral enteric coated capsule 1 capsule = 40 mg, By Mouth, Daily, 0 Refills, Maintenance, 09/23/18 11:00:23 EDT Start Date: 09/23/18 Status: Ordered Percocet-5/325 325 mg-5 mg oral tablet See Instructions, PRN, 1-2 tablet By Mouth at night, # 30 tablet, Refills 0, Tot. Refills 0, Maintenance, for pain, 04/29/16 15:05:58, Instructions Replace Required Details, Print Requisition, Tablet Start Date: 04/29/16 Status: Ordered ProAir HFA 90 mcg/inh inhalation aerosol with adapter 2 puffs, Inhalation, 4 times a day, 0 Refills, Maintenance Start Date: 03/02/12 Status: Ordered Protonix 40 mg oral enteric coated tablet 1 tablet = 40 mg, By Mouth, Daily, 0 Refills, Maintenance Start Date: 03/02/12 Status: Ordered Pulmicort Flexhaler 180 mcg Inhalation, 2 times a day, 0 Refills, Maintenance Start Date: 05/17/13 Status: Ordered Qvar 80 mcg/inh inhalation aerosol with adapter 1 puffs, Inhalation, 2 times a day, 0 Refills, Maintenance Start Date: 03/02/12 Status: Ordered rosuvastatin 40 mg oral tablet 1 tablet = 40 mg, By Mouth, Daily at bedtime, 0 Refills, Maintenance, 09/23/18 11:00:47 EDT Start Date: 09/23/18 Status: Ordered topiramate 100 mg oral tablet 1 tablet = 100 mg, By Mouth, 2 times a day, 0 Refills, Maintenance, 09/23/18 11:01:05 EDT Start Date: 09/23/18 Status: Ordered Tramadol By Mouth, 0 Refills, Maintenance, 01/04/19 10:30:20 EDT Start Date: 01/04/19 Status: Ordered Trulicity Pen Subcutaneous Infusion, Every week, 0 Refills, Maintenance, 04/14/22 13:15:00 EDT, Partial fill uponpatient request if the prescription is for a schedule II opioid drug. Start Date: 04/14/22 Status: Ordered Tums 500 = 1,250 mg, 3 times a day, 0 Refills, Maintenance Start Date: 03/02/12 Status: Ordered venlafaxine 75 mg oral capsule, extended release 75 mg, 1, capsule, By Mouth, Daily, Refills 0, Maintenance, 09/23/18 11:01:36 EDT Start Date: 09/23/18 Status: Ordered Vitamin D3 5000 intl units oral capsule 1 capsule = 5,000 International_Units, By Mouth, Daily, 0 Refills, Maintenance, 09/23/18 11:01:54 EDT Start Date: 09/23/18 Status: Ordered Zestril 5 mg oral tablet 1 tablet = 5 mg, By Mouth, Daily, 0 Refills, Maintenance Start Date: 03/02/12 Status: Ordered Problem List Condition Confirmation Course Effective Dates Status H ealth Status Informant Abdominal pain Confirmed Active Failure to thrive in adult Confirmed Active Rhinitis, allergic Confirmed Active Anemia Confirmed Active Asthma Confirmed Active Chronic kidney disease stage 2 Confirmed Active Constipation Confirmed Active Depression Confirmed Active Diabetes mellitus without mention of complication Confirmed Active Lower Urinary tract symptoms Confirmed Active Dyslipidemia Confirmed Active Dysphagia Confirmed Active Edema Confirmed Active GERD (gastroesophageal reflux disease) Confirmed Active Glaucoma Confirmed Active Gastric bypass status for obesity Confirmed Active S/p cholecystectomy Confirmed Active Hyperlipidemia Confirmed Active Essential (primary)Hypertension Confirmed Active HTN (hypertension) Confirmed Active unspeicified acquired Hypothyroidism Confirmed Active Pain in joint involving shoulder region Confirmed Active Anorexia Confirmed Active Nephritis NOS in other disease Confirmed Active Diabetic neuropathy Confirmed Active Obstructive sleep apnea Confirmed Active Osteoporosis Confirmed Active background Diabetic retinopathy Confirmed Active DM (diabetes mellitus), type 2 Confirmed Active Varicose vein Confirmed Active Varicose veins of left lower extremity Confirmed Active Vitamin B deficiency Confirmed Active Vitamin D deficiency Confirmed Active Vital Signs Most recent to oldest [Reference Range]: 1 Height 152.4 cm (04/23/23 1:33 PM) Weight 53.52 kg (04/23/23 1:33 PM) Oxygen Saturation [94-100 %] 99 % (04/23/23 1:33 PM) Pulse Rate [55-90 bpm] 81 bpm (04/23/23 1:33 PM) Body Mass Index [18.5-24.99 kg/m2] 23.04 kg/m2 (04/23/23 1:33 PM) Blood Pressure [90-138/55-84 mm Hg] 104/ 60mm Hg (04/23/23 1:33 PM) Mode of Delivery (Oxygen) Room air (04/23/23 1:33 PM) Blood pressure sites Arm, left (04/23/23 1:33 PM) Weight Obtained Via Patient/family state d (04/23/23 1:33 PM) Social History Social History Type Response Smoking Status Never smoker entered on: 11/26/16 Sex Note * Kelsie Perez: PERFORM, SIGN, VERIFY Event Display: Patient Education/Instruction Authored Date: [id number] [facility] *[facility] [address] Clinical Summary Name AMARILIS OG Age 72 Years 1950 PCP Mary Rod MD PCP Visit Date 04/23/2023 12:02:00 Additional Instructions: Scheduled Appointments?? Future Appointments ?No Future Appointments Scheduled Follow-Up Instructions ?? With: Address: When: [place], [place] Vancee Comments: as needed Diagnosis Medications: Please continue your medications until treatment is completed or stopped by your provider. Discuss any questions related to medications with your provider. Medications to Continue with No Changes These medications were not printed or sent to your pharmacy Albuterol (ProAir HFA 90 mcg/inh inhalation aerosol with adapter) 2 puff(s) Inhalation 4 times a day. Next Dose: amiTRIPTYLINE (amitriptyline 100 mg oral tablet) 1 tab(s) Oral Daily at Bedtime. Next Dose: Aspirin (aspirin 81 mg oral enteric coated tablet) 1 tab(s) Oral Daily. Next Dose: Beclomethasone (Qvar 80 mcg/inh inhalation aerosol with adapter) 1 puff(s) Inhalation twice a day. Next Dose: Budesonide (Pulmicort Flexhaler 180 mcg) Inhalation twice a day. Next Dose: Calcium Carbonate (Tums 500) 1,250 Milligram 3 times a day. Next Dose: Cholecalciferol (Vitamin D3 5000 intl units oral capsule) 1 capsule Oral Daily. Next Dose: Clonazepam (clonazepam 0.5 mg oral tablet) 1 tab(s) Oral 3 times a day. Next Dose: Cyanocobalamin (cyanocobalamin 1000 mcg/ml injectable solution) Intramuscular Every 28 days. Next Dose: dulaglutide (Trulicity Pen) Subcutaneous Infusion every week. Next Dose: Durable Medical Equipment (20/30 knee high compression stockings with zipper) Apply daily in the amand remove at bedtime. Refills: 4. 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 Refills: 2. Next Dose: Durable Medical Equipment (Compression Stockings) surgical, calf length 20-30 mm Hg. Refills: 0. Next Dose: Durable Medical Equipment (Juxtafit Knee-high Compression Garments(bilateral, left, right) with 2 pairs of liners) as directed 20/30 mmhg. Refills: 0. Next Dose: Folic Acid (folic acid 1 mg oral tablet) 1 tab(s) Oral Daily. Next Dose: Gabapentin (gabapentin 400 mg oral capsule) 1 capsule Oral 3 times a day. Next Dose: Glucose (glucose 4 gm oral tablet, chewable) 4 tab(s) once. Next Dose: Levothyroxine (levothyroxine 0.1 mg oral tablet) 1 tab(s) Oral Daily. Next Dose: Lisinopril (Zestril 5 mg oral tablet) 1 tab(s) Oral Daily. Next Dose: Lorazepam (Ativan 1 mg oral tablet) take 1 tablet at bedtime the night before the procedure and 1 tablet 1-1/2 hour prior to the procedure. Refills: 0. Next Dose: Metformin (metformin 500 mg oral tablet) 1 tab(s) Oral twice a day. Next Dose: Metoprolol (metoprolol 25 mg oral tablet) 0.5 tab(s) Oral twice a day for 30 Days. Refills: 6. Next Dose: Miscellaneous Rx (cerovite) Next Dose: Montelukast (montelukast 10 mg oral tablet) 1 tab(s) Oral Daily. Next Dose: Omeprazole (omeprazole 40 mg oral enteric coated capsule) 1 capsule Oral Daily. Next Dose: Oxycodone / Acetaminophen (Percocet-5/325 325 mg-5 mg oral tablet) 1-2 tablet By Mouth at night; asneeded for pain. Refills: 0. Next Dose: Pantoprazole (Protonix 40 mg oral enteric coated tablet) 1 tab(s) Oral Daily. Next Dose: Rosuvastatin (rosuvastatin 40 mg oral tablet) 1 tab(s) Oral Daily at Bedtime. Next Dose: Topiramate (topiramate 100 mg oral tablet) 1 tab(s) Oral twice a day. Next Dose: Tramadol Oral. Next Dose: Venlafaxine (venlafaxine 75 mg oral capsule, extended release) 1 capsule Oral Daily. Next Dose: Zolpidem (Ambien 10 mg oral tablet) 1 tab(s) Oral Daily at Bedtime. Next Dose: Allergy Info:?? NKA Medications Given This Visit Future Orders ?No future orders Vital Signs Height 152.4 cm Weight 53.52 kg BMI 23.04 kg/m2 Blood Pressure 104 mm Hg/60 mm Hg Temperature Pulse Rate 81 bpm Respiratory Rate 02 Sat Mode of Delivery 99 %/Room air You can now view a summary of your hospital visit from the comfort of your home through a free online portal called [facility]. [facility] is a website that allows you to securely view your medical information including discharge summary, medications and follow-up visits. ??You can alsosend a secure electronic message to your doctor???s office to request appointments, renew medications or just ask a question. You can enroll at [email or web address] or register during your next office visit. Disclaimer:?? The information provided is of a general nature and is intended to be used in conjunction with the recommendations and advice of your health care practitioner. ??Every effort has been made to ensure that the information provided is accurate and complete at the time it is provided to you however, as your needs change, or, as new ??information becomes available, different or additional instructions may be required. If you have questions, please consult with your primary care provider or pharmacist, as appropriate. ??This information is not intended to serve as substitution for assessment and evaluation by a qualified health care provider. If you do not have a primary care provider, you may find a [facility] provider by calling [facility] at [phone]. [facility], in keeping with [facility] guidance, no longer requires face masks for staff, patientsor visitors in most situations. Similar to time spent indoors at other locations, there is the chance that you were exposed to respiratory viruses during your time with us (such as flu or COVID-19).? If you develop symptoms concerning for a viral respiratory infection, please seek testing (and treatment if indicated) from your medical provider or home test kit. For information about the plan of care including goals and instructions for your diagnosis, please see the patient education orders section of this document. Patient Education Materials?? The content of this educational material or handout may have been modified, supplemented, or adapted from its original content and format to support your individualized medical care. Patient Care team information Care Team Personnel Name: Mary Rod MD Position: [facility] Outreach Member Role: PCP Address: Address: [address] [place] [address] [address] [place] [address]- Name: Yue Mazariegos RN Position: [facility] SN RN Member Role: Primary Care Nurse Care Team Related Persons Name: KARI ROMÁN Address: home [address] [place] [address] Name: AKOSUA PEREZ AND JERONIMO HERNANDEZ Address: home [address] [place] [address]
[2023-09-27 13:07] LABS: D Dimer High Sensitivity 254 NG/ML
--- OUTSIDE RECORDS SUMMARY | 2023-09-27 13:07 | XMS_ITS | Continuity of Care Document ---
Author Organization [facility] Address [address] [place] [address]- Care Team Providers Care Clip Baker Name Role Phone Cherelle Rivera MD, Mary Espinal Primary Care Physici an Encounter [facility] [place] Date(s): 04/20/23 - 05/20/23 [facility] [address] [place] [address]- Allergies, Adverse Reactions, Alerts No Known Allergies [...] Confirmed Active Vitamin D deficiency Confirmed Active Social History Social History Type Response Smoking Status Never smoker entered on: 11/26/16 Sex Patient Care team information Care Team Personnel Name: Mary Rod MD Position: [facility] Outreach Member Role: PCP Address: Address: [address] [place] [address] [address] [place] [address]- Name: Delilah RN, Yue Position: S SN RN Member Role: Primary Care Nurse Care Team Related Persons Name: ROMÁN PIERCE Address: home [address] [place] [address] Name: GUDELIA PEREZ Address: home [address] [place] [address]
--- OUTSIDE RECORDS SUMMARY | 2023-09-27 13:07 | XMS_ITS | Continuity of Care Document ---
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 Refills 4, Maintenance, Apply daily in the am and remove at bedtime, 03/26/17 9:37:30, Compound Start Date: 03/26/17 Status: Ordered Acetaminophen Tablet 650 mg, Tablet, By Mouth, Every 4 hours, PRN for Pain , Mild, Temperature Greater than 100.5, Routine, 09/06/23 15:43:00 EDT Start Date: 09/06/23 Stop Date: 09/10/23 Status: Discontinued albuterol-ipratropium 3 mg-0.5 mg/3 ml inhalation solution 3 mL, Neb, 4 times a day, # 30 each, 0 Refills, Maintenance, 09/06/23 15:38:00 EDT, Solution, Partial fill upon patient request if the prescription is for a schedule II opioid drug. Start Date: 09/06/23 Status: Ordered Ambien 10 mg oral tablet 1 tablet = 10 mg, By Mouth, Daily at bedtime, 0 Refills, Maintenance Start Date: 03/02/12 Status: Ordered aspirin 81 mg oral delayed release tablet 81 mg, 1, tablet, By Mouth, Daily, # 30 tablet, Refills 0, Tot. Refills 0, Maintenance, 09/09/23 14:59:00 EDT, Route to Pharmacy Electronically, [facility], Partial fill upon patient request if the prescription is for a schedule II opioi... Start Date: 09/09/23 Status: Ordered clonazepam 0.5 mg oral tablet 2 tablet = 1 mg, By Mouth, 3 times a day, 0 Refills, Maintenance, 03/02/12 13:26:38 EDT Start Date: 03/02/12 Status: Ordered Compression Stockings [...] 9:58:22, Compound Start Date: 12/02/13 Status: Ordered dapagliflozin 10 mg oral tablet = 10 mg, By Mouth, Daily, # 30 tablet, 3 Refills, Maintenance, 09/09/23 14:59:00 EDT, Tablet, [facility], Partial fill upon patient request if the prescription is for a schedule II opioid drug., 152.4, cm, 04/23/23 13:33:00 EST, Height,... Start Date: 09/09/23 Status: Ordered furosemide 20 mg oral tablet 20 mg, 1, tablet, By Mouth, Daily, # 30 tablet, Refills 0, Maintenance, 09/06/23 15:37:00 EDT, Partial fill upon patient request if the prescription is for a schedule II opioid drug. Start Date: 09/06/23 Status: Ordered gabapentin 300 mg oral capsule 600 mg, Capsule, By Mouth, 09/09/23 15:00:00 EDT Start Date: 09/09/23 Stop Date: 09/09/23 Status: Completed gabapentin 600 mg oral tablet 1 tablet = 600 mg, By Mouth, 3 times a day, # 90 tablet, 5 Refills, Maintenance, 09/06/23 15:37:00 EDT, Tablet, Partial fill upon patient request if the prescription is for a schedule II opioid drug. Start Date: 09/06/23 Status: Ordered Juxtafit Knee-high Compression Garments(bilateral, left, right) with 2 pairs of liners Juxtafit Knee-high Compression Garments(bilateral, left, right) with 2 pairs of liners, See Instructions, # 1 kit, Refills 0, Tot. Refills 0, Maintenance, as directed 20/30 mmhg, 04/29/22 16:11:00 EST, Supply Start Date: 04/29/22 Status: Ordered levothyroxine 125 mcg (0.125 mg) oral capsule 1 capsule = 125 mcg, By Mouth, Daily, # 30 capsule, 0 Refills, Maintenance, 09/06/23 15:35:00 EDT, Capsule, Partial fill upon patient request if the prescription is for a schedule II opioid drug. Start Date: 09/06/23 Status: Ordered losartan 25 mg oral tablet 25 mg, By Mouth, Daily, # 30 tablet, Refills 5, Tot. Refills 5, Maintenance, 09/09/23 14:59:00 EDT,Route to Pharmacy Electronically, [facility], Partial fill upon patient request if the prescription is for a schedule II opioid drug., 15... Start Date: 09/09/23 Status: Ordered losartan 25 mg oral tablet 25 mg, Tablet, By Mouth, 09/09/23 12:15:00 EDT Start Date: 09/09/23 Stop Date: 09/09/23 Status: Completed metformin 500 mg oral tablet 1 tablet = 500 mg, By Mouth, 2 times a day, 0 Refills, Maintenance Start Date: 03/02/12 Status: Ordered metoprolol 25 mg oral tablet, extended release 25 mg, XL Tablet, By Mouth, 09/09/23 9:00:00 EDT Start Date: 09/09/23 Stop Date: 09/09/23 Status: Completed Metoprolol Succinate ER 50 mg oral tablet, extended release 1 tablet = 50 mg, By Mouth, Daily, # 30 tablet, 0 Refills, Maintenance, 09/09/23 15:00:00 EDT, XL Tablet, [facility], Partial fill upon patient request if the prescription is for a schedule II opioid drug., 152.4, cm, 04/23/23 13:33:00 E... Start Date: 09/09/23 Status: Ordered montelukast 10 mg oral tablet 10 mg, 1, tablet, By Mouth, Daily, Refills 0, Maintenance, 01/04/19 10:17:08 EDT Start Date: 01/04/19 Status: Ordered nitroglycerin 0.4 mg sublingual tablet 1 tablet = 0.4 mg, Sublingual, Every 5 minutes, PRN as needed for chest pain, not to exceed 3 doses/15 min--if pain persists, seek medical attention, # 25 tablet, 0 Refills, Maintenance, 09/09/23 15:15:00 EDT, Tablet, [facility], Partial... Start Date: 09/09/23 Status: Ordered ProAir HFA 90 mcg/inh inhalation aerosol with adapter 2 puffs, Inhalation, 4 times a day, 0 Refills, Maintenance Start Date: 03/02/12 Status: Ordered Protonix 40 mg oral enteric coated tablet 1 tablet = 40 mg, By Mouth, Daily, 0 Refills, Maintenance Start Date: 03/02/12 Status: Ordered Qvar 80 mcg/inh inhalation aerosol with adapter 1 puffs, Inhalation, 2 times a day, 0 Refills, Maintenance Start Date: 03/02/12 Status: Ordered rosuvastatin 40 mg oral tablet 1 tablet = 40 mg, By Mouth, Daily at bedtime, # 30 tablet, 0 Refills, Maintenance, 09/09/23 15:00:00 EDT, Tablet, [facility], Partial fill upon patient request if the prescription is for a schedule II opioid drug., 152.4, cm, 04/23/23 13... Start Date: 09/09/23 Status: Ordered ticagrelor 90 mg oral tablet 1 tablet = 90 mg, By Mouth, 2 times a day, # 60 tablet, 0 Refills, Maintenance, 09/09/23 14:59:00 EDT, Tablet, [facility], Partial fill upon patient request if the prescription is for aschedule II opioid drug., 152.4, cm, 11/09/23 13:33... Start Date: 09/09/23 Status: Ordered topiramate 100 mg oral tablet 1 tablet = 100 mg, By Mouth, 2 times a day, 0 Refills, Maintenance, 09/23/18 11:01:05 EDT Start Date: 09/23/18 Status: Ordered Trulicity Pen Subcutaneous Infusion, Every week, 0 Refills, Maintenance, 04/14/22 13:15:00 EDT, Partial fill uponpatient request if the prescription is for a schedule II opioid drug. Start Date: 04/14/22 Status: Ordered venlafaxine 75 mg oral capsule, extended release 75 mg, 1, capsule, By Mouth, Daily, Refills 0, Maintenance, 09/23/18 11:01:36 EDT Start Date: 09/23/18 Status: Ordered Vitamin D3 5000 intl units oral capsule 1 capsule = 5,000 International_Units, By Mouth, Daily, 0 Refills, Maintenance, 09/23/18 11:01:54 EDT Start Date: 09/23/18 Status: Ordered Problem List Condition Confirmation Course [...] Confirmed Active Vitamin D deficiency Confirmed Active Results Radiology Reports * Exam Date Time Procedure Performing Provider Status 09/06/23 3:36 PM Chest Portable Juan Parsons; Auth (Ve rified) Notes: (Chest Portable) Reason For Exam: CHF RESULT: Chest Portable Chest Portable Reason: CHF; Clinical Question(s): CHF COMPARISON: None. FINDINGS: LINES AND TUBES: None. LUNGS AND PLEURA: Clear lungs. Normal pulmonary vascularity. No pleural effusion. No pneumothorax. HEART, MEDIASTINUM AND STEPHY: Heart is normal in size. Aorta is calcified. BONES AND SOFT TISSUES: No acute abnormality. Mild degenerative changes of the acromioclavicular joints bilaterally, left greater than right. Partially visualized lower cervical spine ACDF hardware. IMPRESSION: No radiographic evidence of an acute cardiopulmonary process. WSN: [id number] Ordering Physician: Demetrius Jenkins Dictated By: Pollo Drew MD Dictated Date/Time: 09/06/23 3:51 pm Reviewed By: Pollo Drew MD Signed By: Pollo Drew MD Signed Date/Time: 09/06/23 3:51 pm Transcribed By: GIANCARLO Transcribed Date/Time: 09/06/23 3:49 pm Vital Signs Most recent to oldest [Reference Range]: 1 2 3 Weight 69.0 kg (09/09/23 6:37 AM) 69.0 kg (09/08/23 4:04 AM) 69.2 kg (09/07/23 4:36 PM) Oxygen Saturation [94-100 %] 100 % (09/09/23 1:33 PM) 98 % (09/09/23 7:59 AM) 98 % (09/09/23 2:11 AM) Pulse Rate [55-90 bpm] 77 bpm (09/09/23 1:33 PM) 83 bpm (09/09/23 8:52 AM) 83 bpm (09/09/23 7:59 AM) Blood Pressure [90-138/55-84 mm Hg] 119/72mm Hg (09/09/23 2:01 PM) 119/72mm Hg (09/09/23 1:33 PM) 126/72mm Hg (09/09/23 8:52 AM) Respiratory Rate [16-30 br/min] 16 br/min (09/09/23 3:01 PM) 16 br/min (09/09/23 3:01 PM) 16 br/min (09/09/23 2:01 PM) Temperature [96.8-100.4 DegF] 97.8 DegF (09/09/23 1:33 PM) 97.6 DegF (09/09/23 7:59 AM) 97.1 DegF (09/09/23 2:11 AM) Mode of Delivery (Oxygen) Room air (09/09/23 1:33 PM) Room air (09/09/23 7:59 AM) Room air (09/09/23 2:11 AM) Blood pressure sites Arm, left (09/09/23 1:33 PM) Arm, left (09/09/23 7:59 AM) Arm, left (09/09/23 2:11 AM) Temperature Route Temporal (09/09/23 1:33 PM) Temporal (09/09/23 7:59 AM) Temporal (09/09/23 2:11 AM) Dry Weight 68.9 kg (09/06/23 3:15 PM) Weight Obtained Via Bed scale (09/09/23 6:37 AM) Bed scale (09/08/23 4:04 AM) Bed scale (09/07/23 4:36 PM) Dry Weight Obtained Via Bed scale (09/06/23 3:15 PM) Social History Social History Type Response Smoking Status Never smoker entered on: 11/26/16 Sex Note * Krista Adames RN: PERFORM Event Display: Discharge/Transfer Note Hospital Authored Date: [id number] Nursing Discharge Note Entered On: 09/09/2023 17:39 EDT Performed On: 09/09/2023 17:38 EDT by Krista Adames RN Nursing Discharge Note 2 Discharge Time : 09/09/2023 17:15 EDT Discharge Level of Care at Discharge : Homehealth/VNA Discharge VNA/Hospice/Home Care(v001) : [facility] [phone] Patient Left Unit Via : Wheelchair Patient Accompanied Off Unit with : Responsible adult DC Instructions Provided & Signed by Pt : Yes Patient Understands D/C Instructions : Yes Patient Instructions Discharge Signed : Yes Did Pt have Specialty Bed or Wound Vac : No Krista Adames RN - 09/09/2023 17:38 EDT * Guille Reed DO: PERFORM, MODIFY, MODIFY Event Display: Discharge/Transfer Note Hospital Authored Date: [id number] Patient: ??MINA CORNELIUSZQUEAMARILIS Sage ? Age:??72 Years?Sex:??Female?:??1950?? Patient Information Discharge Location: 7 Primary Care Physician: Mary Rod MD Admit Date/Time: 09/06/23 15:01 Discharge Date: 09/09/2023 Discharge Disposition Discharge Disposition: Home with Home Health Discharge Diagnosis NSTEMI (non-ST elevated myocardial infarction) (I21.4) ?? _ Discharge Medications Albuterol (ProAir HFA 90 mcg/inh inhalation aerosol with adapter)?2?puff(s)?Inhalation?4 times a day Albuterol/Ipratropium (albuterol-ipratropium 3 mg-0.5 mg/3 ml inhalation solution)?3?Milliliter?Neb?4 times a day Aspirin (aspirin 81 mg oral delayed release tablet)?81?Milligram?1?tablet?By Mouth?Daily Beclomethasone (Qvar 80 mcg/inh inhalation aerosol with adapter)?1?puff(s)?Inhalation?2times a day Cholecalciferol (Vitamin D3 5000 intl units oral capsule)?1?capsule?5,000?InternationalUnit?By Mouth?Daily Clonazepam (clonazepam 0.5 mg oral tablet)?2?tab(s)?1?Milligram?By Mouth?3 times a day dapagliflozin (dapagliflozin 10 mg oral tablet)?10?Milligram?By Mouth?Daily dulaglutide (Trulicity Pen)?Subcutaneous Infusion?Every week Furosemide (furosemide 20 mg oral tablet)?20?Milligram?1?tablet?By Mouth?Daily Gabapentin (gabapentin 600 mg oral tablet)?1?tab(s)?600?Milligram?By Mouth?3 times a day Levothyroxine (levothyroxine 125 mcg (0.125 mg) oral capsule)?1?capsule?125?Microgram?By Mouth?Daily Losartan (losartan 25 mg oral tablet)?25?Milligram?By Mouth?Daily Metformin (metformin 500 mg oral tablet)?1?tab(s)?500?Milligram?By Mouth?2 times a day Metoprolol (Metoprolol Succinate ER 50 mg oral tablet, extended release)?1?tab(s)?50?Milligram?By Mouth?Daily Montelukast (montelukast 10 mg oral tablet)?10?Milligram?1?tablet?By Mouth?Daily Nitroglycerin (nitroglycerin 0.4 mg sublingual tablet)?1?tab(s)?0.4?Milligram?Sublingual?Every 5 minutes?as needed?as needed for chest pain?not to exceed 3 doses/15 min--ifpain persists, seek medical attention Pantoprazole (Protonix 40 mg oral enteric coated tablet)?1?tab(s)?40?Milligram?By Mouth?Daily Rosuvastatin (rosuvastatin 40 mg oral tablet)?1?tab(s)?40?Milligram?By Mouth?Daily at bedtime Ticagrelor (ticagrelor 90 mg oral tablet)?1?tab(s)?90?Milligram?By Mouth?2 times a day Topiramate (topiramate 100 mg oral tablet)?1?tab(s)?100?Milligram?By Mouth?2 times a day Venlafaxine (venlafaxine 75 mg oral capsule, extended release)?75?Milligram?1?capsule?By Mouth?Daily Zolpidem (Ambien 10 mg oral tablet)?1?tab(s)?10?Milligram?By Mouth?Daily at bedtime Medications Started Aspirin (aspirin 81 mg oral delayed release tablet)?81?Milligram?1?tablet?By Mouth?Daily Dapagliflozin (dapagliflozin 10 mg oral tablet)?10?Milligram?By Mouth?Daily Losartan (losartan 25 mg oral tablet)?25?Milligram?By Mouth?Daily Metoprolol (Metoprolol Succinate ER 50 mg oral tablet, extended release)?1?tab(s)?50?Milligram?By Mouth?Daily Rosuvastatin (rosuvastatin 40 mg oral tablet)?1?tab(s)?40?Milligram?By Mouth?Daily at bedtime Ticagrelor (ticagrelor 90 mg oral tablet)?1?tab(s)?90?Milligram?By Mouth?2 times a day Nitroglycerin (nitroglycerin 0.4 mg sublingual tablet)?1?tab(s)?0.4?Milligram?Sublingual?Every 5 minutes?as needed?as needed for chest pain?not to exceed 3 doses/15 min--ifpain persists, seek medical attention Medications Discontinued Amlodipine 10 mg PO QD Isosorbide Mononitrate (isosorbide mononitrate 60 mg oral tablet, extended release)?1?tab(s)?60?Milligram?By Mouth?Daily in AM PCP Follow-Up/Heads-Up Patient was seen at [facility] in setting of NSTEMI. ??She??had a stent placed to mid LAD. ??She started on GDMT for??slightly reduced ejection fraction. ??Please follow-up with patient regarding medication??adherence??and titration.?? Please also repeat a basic metabolic panel to??assess kidney function and potassium levels.?? Please encourage patient to attend cardiac rehab. Hospital Course 72-year-old [place]an-speaking only female with a past medical history concerning for hypertension, hyperlipidemia, thyroid disease mild coronary disease, mild coronary artery disease diabetes mellitus, CKD, chronic lower back pain, anxiety/depression [facility] based on EKG. Cath with 90% stenosis at mid subsection of mid LAD which is culprit lesion confirming CHANA. Now s/p successful PCI of mid LAD. ?? Objective Assessment and Plan Non-ST Elevation Myocardial Infarction Occlusion??Miocardial Infarction Presented with 1 day history of chest pain, nausea/vomiting, diaphoresis + SOB EKG revealed??T wave inversion in Lead 3, minimal ST elevations not meeting criteria in Leads 2/3 Troponin of??3068 (troponin I at [place]) Does describe prior symptoms of angina + b/l LE swelling RF: HLD, HTN, DM, prior positive stress test, prior h/o CAD [facility] in September, revealing 60-70% RCA stenosis with IFR of 0.94; left system with <30% lesions IVUS guided successful PCI of the mid LAD on 09/05 LVEF 40-45% on echo ?? Recommendations: - continue metoprolol and lisinopril - Continue with aspirin and brilinta - Continue Rosuvastatin 40mg -??Stop Imdur -??Continue furosemide - SL NG - Cardiac Rehab - Manager Adobe regarding dietary modification, regular physical activity, weight loss, and smoking cessation ?? Chronic Medical Conditions: Levothyroxine: continue levothyroxine HTN: hold amlodipine Chronic pain (back/fibromyalgia): continue gabapentin Anxiety: continue clonazepam (scheduled) as patient takes daily, continue venlafaxine, continue topiramate Asthma: continue albuterol, PRN duonebs, Breo Ellipta inpatient (on beclomethasone outpatient) ?? Vital Signs?? Temperature: 97.8 DegF (09/09/23 13:33:00) Temperature Route: Temporal (09/09/23 13:33:00) Pulse Rate: 77 bpm (09/09/23 13:33:00) Pulse Rate, Lyin bpm (09/09/23 15:09:00) Systolic Blood Pressure, Lyin mm Hg (09/09/23 15:09:00) Diastolic Blood Pressure, Lyin mm Hg (09/09/23 15:09:00) Pulse Rate, Sittin bpm (09/09/23 15:09:00) Systolic Blood Pressure, Sittin mm Hg (09/09/23 15:09:00) Diastolic Blood Pressure, Sittin mm Hg (09/09/23 15:09:00) Pulse Rate, Standin bpm (09/09/23 15:09:00) Systolic Blood Pressure, Standin mm Hg (09/09/23 15:09:00) Diastolic Blood Pressure, Standin mm Hg (09/09/23 15:09:00) Respiratory Rate: 16 br/min (09/09/23 14:01:00) Systolic Blood Pressure: 119 mm Hg (09/09/23 14:01:00) Diastolic Blood Pressure: 72 mm Hg (09/09/23 14:01:00) Blood pressure sites: Arm, left (09/09/23 13:33:00) Mean Arterial Pressure: 88 mm Hg (09/09/23 13:33:00) Pulse Pressure: 47 mm Hg (09/09/23 13:33:00) Oxygen Saturation: 100 % (09/09/23 13:33:00) Mode of Delivery (Oxygen): Room air (09/09/23 13:33:00) Early Warning Score: 2 (09/09/23 14:05:37) ? . Physical Exam Constitutional: Alert, in no distress. Mental Status: Oriented to person, place and time. Respiratory: Clear to auscultation. No wheezing, rales or rhonchi. Cardiovascular: S1 S2 regular. No murmurs, rubs or gallops. Gastrointestinal: Abdomen soft, diffuse mild tenderness, non-distended. Normal bowel sounds. No pulsatile mass. No hepatosplenomegaly. Genitourinary: No costovertebral angle tenderness. Neurologic: Moves all extremities spontaneously. Sensation intact bilaterally. Psychiatric: Normal mood and affect Pending Results CBC ordered on 09/06/2023 Patient Education Titles Web[employer] Patient Education - Heart Health: What Is a Heart Attack??? Follow-Up Appointments Added Follow Up ?Time Frame ?Comments Cherelle Rivera MD, Mary Espinal?1 to 2 weeks Patient Instructions DIAGNOSIS:??Non-ST Elevation Myocardial??Infarction (Heart Attack) ? TEST RESULTS: Cardiac catheterization showed a blockage in one of the arteries supplying blood to your heart. This was treated with a stent to restore blood flow. ? 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 It is alsoencouraged that you attend a program called cardiac rehabilitation.?? Please take the medications??as prescribed. ? MEDICATIONS (what medications you should start (or stop) taking): Medications to Stop: Amlodipine 10 mg Isosorbide Mononitrate 60 mg ?? Medications to start: Aspirin 81 mg daily Brilinta (Ticagrelor) 90 mg twice per day Rosuvastatin 40 mg once per day Losartan 25 mg once per day Farxiga (Dapagliflozin) 10 mg once per day Home Health Face to Face *Denotes mandatory camacho ?? *I certify that this patient is under my care and that I or an allowed non- physician working with me had a face to face encounter with the patient on this date:??09/09/2023 15:19 ?? *The encounter with the patient was in whole, or in part, for the following medical condition, which is the primary diagnosis(es) for home health care:??NSTEMI (non-ST elevated myocardial infarction)(I21.4) ? *Select the indications for the discipline/s that are being arranged for this patient. Nursing (select all that apply): [_] None [X] Medication management (reconciliation, teaching)?? [_] Chronic disease management?? [_] Wound care and treatment?? [_] Home safety evaluation [_] Administer SQ/IM/IV medications?? [_] Cath care?? [_] Drain care?? [_] Trach or GT care?? Other _ Occupation Therapy (select all that apply): [_] None [_] ADL Management [_] Fall prevention training [_] Energy conservation [_] Cognitive training Other _ Physical Therapy (select all that apply): [_] None [X] Functional mobility training [X] Home exercise program to strengthen [X] Increase ROM?? [X] Falls prevention training [X] Home maintenance program for chronic disease Other _ Speech Therapy (select all that apply): [_] None [_] Swallow evaluation and training [_] Speech and language training [_] Cognitive training to process, organize, and/or recall information Other _ ? *Homebound due to (select all that apply): [_] Inability to leave home without assistance/supervision [_] Inability to ambulate without assistance [_] Pain [X] Decreased strength and endurance [_] Unsteady gait [_] Severe SOB and fatigue [_] Impaired transfers [_] Inability to negotiate stairs [_] Limited weight bearing [_] Mental status change? *Physician Signature:??Guille Reed, DO ?? *By signing this, I certify that I have personally evaluated the patient and agree with the findings and recommendations as documented above. ? Results Discharge Labs BLOOD COUNT & DIFF WBC 9.0 k/mm3 ()?? 09/09/2023 00:30 RBC 4.10 m/mm3 (Low)?? 09/09/2023 00:30 Hgb 12.3 Gm/dL ()?? 09/09/2023 00:30 Hct 38.2 % ()?? 09/09/2023 00:30 MCV 93.2 femtoliters ()?? 09/09/2023 00:30 MCH 30.0 pg ()?? 09/09/2023 00:30 MCHC 32.2 g/dL (Low)?? 09/09/2023 00:30 Platelet Count 229 k/mm3 ()?? 09/09/2023 00:30 RDW-SD 45.6 femtoliters ()?? 09/09/2023 00:30 MPV 11.3 femtoliters ()?? 09/09/2023 00:30 Nucleated RBC (Automated) 0.0 #/100 WBC'S ()?? 09/09/2023 00:30 Abs. NRBC 0.0 k/mm3 ()?? 09/09/2023 00:30 Abs. Neut 4.5 k/mm3 ()?? 09/06/2023 15:48 Abs. Lymph 1.7 k/mm3 ()?? 09/06/2023 15:48 Abs. Bell 0.4 k/mm3 ()?? 09/06/2023 15:48 Abs. Eo 0.1 k/mm3 ()?? 09/06/2023 15:48 Abs. Baso 0.0 k/mm3 ()?? 09/06/2023 15:48 Neut % 67.5 % ()?? 09/06/2023 15:48 Lymph % 24.6 % ()?? 09/06/2023 15:48 Bell % 6.3 % ()?? 09/06/2023 15:48 Eos % 0.9 % ()?? 09/06/2023 15:48 Baso % 0.4 % ()?? 09/06/2023 15:48 Imm Gran 0.3 % ()?? 09/06/2023 15:48 Abs. Imm Gran 0.0 k/mm3 ()?? 09/06/2023 15:48 ?? CARDIAC Nt-Probnp 466 pg/mL (High)?? 09/06/2023 15:48 High Sensitivity Troponin (HSTnT) 809 ng/L (Critical)?? 09/06/2023 15:48 ?? CHEM GENERAL Sodium 138 mmol/L ()?? 09/09/2023 06:58 Potassium 4.2 mmol/L ()?? 09/09/2023 06:58 Chloride 105 mmol/L ()?? 09/09/2023 06:58 Bicarbonate Level 22 mmol/L ()?? 09/09/2023 06:58 Anion Gap 11 ()?? 09/09/2023 06:58 Glucose Level 158 mg/dL (High)?? 09/09/2023 06:58 Glucose, POC 102 mg/dL (High)?? 09/09/2023 11:14 Hemoglobin A1C (Monitoring) 6.7 % (High)?? 09/06/2023 15:48 BUN 20 mg/dL ()?? 09/09/2023 06:58 Creatinine-Blood 0.9 mg/dL ()?? 09/09/2023 06:58 Estimated GFR Creatinine 66 ML/MIN/1.73 M2 ()?? 09/09/2023 06:58 Calcium 9.0 mg/dL ()?? 09/09/2023 06:58 Phosphorus 2.7 mg/dL ()?? 09/07/2023 00:21 Magnesium 2.2 mg/dL ()?? 09/09/2023 06:58 Protein, Total 5.9 Gm/dL (Low)?? 09/09/2023 06:58 Albumin 3.9 Gm/dL ()?? 09/09/2023 06:58 AG Ratio 2.0 ()?? 09/09/2023 06:58 Alkaline Phosphatase 104 units/L ()?? 09/09/2023 06:58 AST (SGOT) 139 units/L (High)?? 09/09/2023 06:58 ALT (SGPT) 118 units/L (High)?? 09/09/2023 06:58 Bilirubin, Total 0.5 mg/dL ()?? 09/09/2023 06:58 Lactate 1.0 mmol/L ()?? 09/06/2023 15:48 ?? COAG POC ACT-LR 283.0 seconds ()?? 09/06/2023 17:46 ? ENDOCRINE/TUMOR MARKER TSH 2.57 uIU/mL ()?? 09/06/2023 15:48 ? LIPID STUDIES Cholesterol 136 mg/dL ()?? 09/06/2023 15:48 Triglycerides 71 mg/dL ()?? 09/06/2023 15:48 HDL Cholesterol 62 mg/dL ()?? 09/06/2023 15:48 LDL Cholesterol 60 mg/dL ()?? 09/06/2023 15:48 Non HDL Cholesterol 74 mg/dL ()?? 09/06/2023 15:48 ? Procedures(s) ?Cardiac Seed [facility] Report ?? 09/06/2023 17:34??by Cristino Best MD ?Diagnostic Summary ??72-year-old female with history of hypertension, hyperlipidemia, diabetes ??mellitus type 2 who presented to the hospital with NSTEMI. ?? LVEDP 13 mmHg. ??No significant pullback gradient across aortic valve. ?? Diagnostic angiogram revealed mild luminal irregularities of the LMCA, 90% ??stenosis at the mid subsection of mid LAD just before the bifurcation with ??D2 which is the culprit lesion, 30% stenosis in the proximal subsection of ??OM 2 and 60% stenosis in the distal subsection of distal RCA which is ??unchanged from prior angiogram. ?? Proceed with intervention of the mid LAD culprit lesion. ?? Diagnostic Recommendations ??Proceed with intervention of the mid LAD culprit lesion. ?? Interventional Summary ??Mid LAD: ??IVUS guided successful PCI of the mid LAD using 3.0 mm X 15 mm Hobson frontier ??RENNY. ?? Interventional Recommendations ??Continue aspirin 81 mg p.o. indefinitely and Brilinta 90 mg p.o. twice daily ??1 year postintervention. ??Check lipid panel, echocardiogram tomorrow and hemoglobin A1c. ??Guideline directed medical management for coronary artery disease. ??Cardiac rehab as outpatient. ? Imaging(s) ?Chest Portable ?? 09/06/2023 15:36??by Pollo Drew MD ?IMPRESSION: ?? No radiographic evidence of an acute cardiopulmonary process. ?ECG 12-Lead ?? 09/07/2023 06:58??by [place] ARRIAGA, Gary Almonte ?Ventricular Rate: 67 BPM Atrial Rate: 67 BPM P-R Interval: 154 ms QRS Duration: 82 ms Q-T Interval: 426 ms QTC Calculation(Bazett): 450 ms P [place]: 28 degrees R [place]: 20 degrees T [place]: 76 degrees Normal sinus rhythm Low voltage QRS Nonspecific T wave abnormality Abnormal ECG When compared with ECG of 06-SEP-2023 15:18, No significant change ?Echocardiogram - Complete ?? 09/07/2023 11:37??by Wang Rashid MD ?Summary ??The left ventricle is poorly visualized but improved with contrast ??enhancement. The apical views are still foreshortened.The left ventricular ??size is normal. The left ventricular wall thickness is mildly increased. The ??LV systolic function is moderately reduced . The left ventricular ejection ??fraction is 35-40 %. The mid to distal anteroseptal, inferoseptal wall is ??akinetic . The apex is dyskinetic . There is no evidence of left ventricular ??thrombus. Grade I, mild diastolic dysfunction with impaired LV relaxation. ?? The right ventricular size and function appears normal. ? 38??minutes spent on discharge * Fercho Rodriguez MD: PERFORM Event Display: Discharge/Transfer Note Hospital Authored Date: Attending Attestation: I have seen and evaluated this patient??on the day that the below note was prepared.??I have discussed the case and its management with the house staff/advanced practitioner and agree with the findings and plan as documented in the above note with the following modifications/additions (if any): ?? 25 minutes personally spent on discharge activities. ?? The above note was prepared with the help of voice recognition software. Please excuse any grammatical or spelling errors that may have occurred. ?? Thank you for involving me in the care of this patient. Please do not hesitate to contact me with questions or concerns. ?? Fercho Rodriguez MD [facility] [phone] ?? [address] [place] [phone] ? * Becky Boland RN: PERFORM Event Display: Patient Education/Instruction Authored Date: Inpatient Adult Discharge Instructions. [address] [address] Name: AMARILIS MAJOR : 1950?? Visit: 09/06/2023 15:01?? Current Date: 09/09/2023 16:19 ?? Account: [id number]?? Inpatient Adult Discharge Instructions We would like to thank you for allowing us to assist you with your healthcare needs. The following includes patient education materials and information regarding your injury/illness. Our entire staffstrives to provide an excellent experience for our patients and their families. PLEASE ENSURE YOU FOLLOW-UP PER THE INSTRUCTIONS BELOW! ?? YOUR OPINION IS IMPORTANT TO US! Please complete the survey you may receive by mail or email. Your feedback will be used to make improvements to the healthcare experiences of our patients and their families. Surveys are administered by [employer] ?? If further treatment with your primary care physician or another doctor is recommended, it is important for you to keep the appointment. Call your primary care physician or return to the Emergency Department immediately if your condition worsens, fails to improve, or new symptoms develop. If you need to find a doctor, you can call [facility] Link for a referral at [phone] or toll free at [phone] ([phone]) or log in to [email or web address].. ?? [facility], in keeping with [facility] guidance, no longer requires face masks for staff, patientsor visitors in most situations. Similiar to time spent indoors at other locations, there is the chance that you were exposed to repiratory viruses during your time with us (such as flu or COVID-19). If you develop symptoms concerning for a viral respiratory infection, please seek testing (and treatment if indicated) from your medical provider or home test kit. ?? You can view and manage your care through the patient portal or by using a health care jen of your choosing. [employer] is a website that allows you to securely view your medical information including your hospital discharge summary, office visit summaries, medications and follow-up visits. You can also request appointments, renew medications, and request access to your medical information using a health care jen of your choosing, or just ask a question. You can enroll at [email or web address] or register during your next office visit. You have been discharged from [facility], Patient Care Unit: M7??. If you have any questions regarding these instructions, including results of studies pending, afteryou leave, please call us and we will be happy to assist you 05/01. [facility] Your Care Team Attending Physician Fercho Rodriguez MD?? Consulting Providers Fercho Rodriguez MD?? Discharging Providers Guille Reed DO Your Diagnosis NSTEMI (non-ST elevated myocardial infarction) Tests Performed Below is a partial list of the tests performed during your hospitalization. You may have had other tests and procedures not included in this list. Please discuss all test results with your provider. CBC CBC w/ Differential Comprehensive Metabolic Panel GLUCOSE POC Hemoglobin A1c, (Diagnostic) Lactate Level Lipid Panel Magnesium Level NT ProBNP Phosphorus Level POC Hemochron ACT-LR Troponin T, High Sensitivity TSH CXR Portable CBC?? Primary Care Provider Cherelle Rivera MD, Mary Espinal? Advance Directive Health Care Proxy on File Yes - Health Care Proxy Discharge Vitals Temperature: 97.8 DegF Weight: 69 kg Pulse Rate: 77 bpm ?? Respiratory Rate: 16 br/min ?? Systolic Blood Pressure: 119 mm Hg ?? Diastolic Blood Pressure: 72 mm Hg ?? Oxygen Saturation: 100 % ?? Studies Pending All studies ordered during this hospital stay have been completed unless listed below. Please discuss all pending results with your provider listed above in these instructions. ?? CBC?? What to do next Instructions From Your Doctor DIAGNOSIS:??Non-ST Elevation Myocardial??Infarction (Heart Attack) ? TEST RESULTS: Cardiac catheterization showed a blockage in one of the arteries supplying blood to your heart. This was treated with a stent to restore blood flow. ? 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 It is alsoencouraged that you attend a program called cardiac rehabilitation.?? Please take the medications??as prescribed. ? MEDICATIONS (what medications you should start (or stop) taking): Medications to Stop: Amlodipine 10 mg Isosorbide Mononitrate 60 mg ?? Medications to start: Aspirin 81 mg daily Brilinta (Ticagrelor) 90 mg twice per day Rosuvastatin 40 mg once per day Losartan 25 mg once per day Farxiga (Dapagliflozin) 10 mg once per day ?? Orders? 09/09/23 15:28:00 EDT?? Prescriptions??, ??09/09/23 15:28:00 EDT?? You Need to Schedule the Following Appointments Follow Up with??Cherelle Rivera MD, Mary Espinal When:??Within 1 to 2 weeks Where: [address] [place] [address] [address] [place] [address]- Discharge Medications AMARILIS OG :1950 Visit Date:09/06/2023 Medications: Please continue your medications until treatment is completed or stopped by your provider. Medications not listed below should be discontinued. Discuss any questions related to medications with your provider. What How Much When Why Instructions Next Dose New dapagliflozin (dapagliflozin 10 mg oral tablet) 10 Milligram Oral Daily Refills: 3 Pickup at [facility] 3 tomorrow at 8am New Losartan (losartan 25 mg oral tablet) 25 Milligram Oral Daily Refills: 5 Pickup at [facility] 3 tomorrow at 8am New Nitroglycerin (nitroglycerin 0.4 mg sublingual tablet) 1 tab(s) Sublingual Every 5 minutes as needed for as needed for chest pain not to exceed 3 doses/ 15 min--if pain persists, seek medical attention ?? Pickup at [facility] 3 Every 5 minutes as needed for as needed for chest pain ?? not to exceed 3 doses/ 15 min--if pain persists, seek medical attention New Ticagrelor (ticagrelor 90 mg oral tablet) 1 tab(s) Oral Twice a day Pickup at [facility] 3 tonight at 8pm Changed Aspirin (aspirin 81 mg oral delayed release tablet) 1 tab(s) Oral Daily Pickup at [place] [address] tomorrow at 8am Changed Gabapentin (gabapentin 600 mg oral tablet) 1 tab(s) Oral 3 times a day tonight at 10pm Changed Levothyroxine (levothyroxine 125 mcg (0.125 mg) oral capsule) 1 capsule Oral Daily tomorrow at 8am Changed Metoprolol (Metoprolol Succinate ER 50 mg oral tablet, extended release) 1 tab(s) Oral Daily Pickup at [place] [address] tomorrow at 8am Changed Rosuvastatin (rosuvastatin 40 mg oral tablet) 1 tab(s) Oral Daily at Bedtime Pickup at [place] [address] bedtime Unchanged Albuterol (ProAir HFA 90 mcg/ inh inhalation aerosol with adapter) 2 puff(s) Inhalation 4 times a day tonight at 10pm Unchanged Albuterol/ Ipratropium (albuterol-ipratropium 3 mg-0.5 mg/ 3 ml inhalation solution) 3 Milliliter Nebulized inhalation 4 times a day tonight at 10pm Unchanged Beclomethasone (Qvar 80 mcg/ inh inhalation aerosol with adapter) 1 puff(s) Inhalation Twice a day tonight at 8pm Unchanged Cholecalciferol (Vitamin D3 5000 intl units oral capsule) 1 capsule Oral Daily tomorrow at 8am Unchanged Clonazepam (clonazepam 0.5 mg oral tablet) 2 tab(s) Oral 3 times a day tonight at 10pm Unchanged dulaglutide (Trulicity Pen) Subcutaneous Infusion Every week resume prior schedule Unchanged Durable Medical Equipment (20/ 30 knee high compression stockings with zipper) See instructions Apply daily in the am and remove at bedtime ?? Equipment Unchanged Durable Medical Equipment (Compression stockings) See instructions Thigh high compression stockings strength 20-30 mmHG, Dx: deep and superficial vein reflux s/ p Right GSV ablation ?? Equipment Unchanged Durable Medical Equipment (Compression Stockings) See instructions surgical, calf length 20-30 mm Hg ?? Equipment Unchanged Durable Medical Equipment (Juxtafit Knee-high Compression Garments(bilateral, left, right) with 2 pairs of liners) See instructions Varicose veins of bilateral lower extremities with pain as directed 20/ 30 mmhg ?? Equipment Unchanged Furosemide (furosemide 20 mg oral tablet) 1 tab(s) Oral Daily tomorrow at 8am Unchanged Metformin (metformin 500 mg oral tablet) 1 tab(s) Oral Twice a day tonight at 8pm Unchanged Montelukast (montelukast 10 mg oral tablet) 1 tab(s) Oral Daily tomorrow at 8am Unchanged Pantoprazole (Protonix 40 mg oral enteric coated tablet) 1 tab(s) Oral Daily tomorrow at 8am Unchanged Topiramate (topiramate 100 mg oral tablet) 1 tab(s) Oral Twice a day tonight at 8pm Unchanged Venlafaxine (venlafaxine 75 mg oral capsule, extended release) 1 capsule Oral Daily tomorrow at 8am Unchanged Zolpidem (Ambien 10 mg oral tablet) 1 tab(s) Oral Daily at Bedtime bedtime [facility] Information [facility] [address], [place] [id number] [phone] ?? What How Much When Comments Stop Taking amiTRIPTYLINE (amitriptyline 100 mg oral tablet) 1 tab(s) Oral Daily at Bedtime stop Stop Taking Amlodipine (amLODIPine 10 mg oral tablet) 1 tab(s) Oral Daily stop Stop Taking Budesonide (Pulmicort Flexhaler 180 mcg) Inhalation Twice a day stop Stop Taking Calcium Carbonate (Tums 500) 1,250 Milligram 3 times a day stop Stop Taking Cyanocobalamin (cyanocobalamin 1000 mcg/ ml injectable solution) Intramuscular Every 28 days stop Stop Taking Folic Acid (folic acid 1 mg oral tablet) 1 tab(s) Oral Daily stop Stop Taking Glucose (glucose 4 gm oral tablet, chewable) 4 tab(s) Once stop Stop Taking Isosorbide Mononitrate (isosorbide mononitrate 60 mg oral tablet, extended release) 1 tab(s) Oral Daily in the morning stop Stop Taking Lisinopril (Zestril 5 mg oral tablet) 1 tab(s) Oral Daily stop Stop Taking Lorazepam (Ativan 1 mg oral tablet) See instructions take 1 tablet at bedtime the night before the procedure and 1 tablet 1-1/ 2 hour prior to the procedure ?? stop Stop Taking Miscellaneous Rx (cerovite) stop Stop Taking Omeprazole (omeprazole 40 mg oral enteric coated capsule) 1 capsule Oral Daily stop Stop Taking Oxycodone / Acetaminophen (Percocet-5/ 325 325 mg-5 mg oral tablet) See instructions 1-2 tablet By Mouth at night, As needed for for pain ?? stop Stop Taking Tramadol Oral stop Prescription Given During Visit Aspirin (aspirin 81 mg oral delayed release tablet) - 1 tablet = 81 mg, By Mouth, Daily, # 30 tablet, 0 Refills, [place] [address] [phone]?? Losartan (losartan 25 mg oral tablet) - 25 mg, By Mouth, Daily, # 30 tablet, 5 Refills, [place] [address] [phone]?? Metoprolol (Metoprolol Succinate ER 50 mg oral tablet, extended release) - 1 tablet = 50 mg, By Mouth, Daily, # 30 tablet, 0 Refills, [place] [address] [phone]?? Nitroglycerin (nitroglycerin 0.4 mg sublingual tablet) - 1 tablet = 0.4 mg, Sublingual, Every 5 minutes, # 25 tablet, 0 Refills, not to exceed 3 doses/15 min--if pain persists, seek medical attention, [place] [address] [phone]?? Rosuvastatin (rosuvastatin 40 mg oral tablet) - 1 tablet = 40 mg, By Mouth, Daily at bedtime, # 30 tablet, 0 Refills, [place] [address] [phone]?? Ticagrelor (ticagrelor 90 mg oral tablet) - 1 tablet = 90 mg, By Mouth, 2 times a day, # 60 tablet,0 Refills, [place] [address] [phone]?? dapagliflozin (dapagliflozin 10 mg oral tablet) - 10 mg, By Mouth, Daily, # 30 tablet, 3 Refills, [place] [address] [phone]?? Laboratory Results Below is a partial list of the most recent Laboratory test results done prior to this discharge. You may have had other tests and procedures not included in this list. Please discuss all test resultswith your provider. CBC (09/09/2023) ???WBC - 9.0 k/mm3???RBC - 4.10 m/mm3???Hgb - 12.3 Gm/dL???Hct - 38.2 %???MCV - 93.2 femtoliters???MCH - 30.0 pg???MCHC - 32.2 g/dL???Platelet Count - 229 k/mm3???RDW-SD - 45.6 femtoliters???MPV - 11.3 femtoliters???Nucleated RBC (Automated) - 0.0 #/100 WBC'S???Abs. NRBC - 0.0 k/mm3 CBC w/ Differential (09/06/2023) ???WBC - 6.7 k/mm3???RBC - 4.17 m/mm3???Hgb - 12.8 Gm/dL???Hct - 39.3 %???MCV - 94.2 femtoliters???MCH - 30.7 pg???MCHC - 32.6 g/dL???Platelet Count - 232 k/mm3???RDW-SD - 46.5 femtoliters???MPV - 10.9 femtoliters???Nucleated RBC (Automated) - 0.0 #/100 WBC'S???Abs. NRBC - 0.0 k/mm3???Abs. Neut - 4.5 k/mm3???Abs. Lymph - 1.7 k/mm3???Abs. Bell - 0.4 k/mm3???Abs. Eo - 0.1 k/mm3???Abs. Baso - 0.0 k/mm3???Neut % - 67.5 %???Lymph % - 24.6 %???Bell % - 6.3 %???Eos % - 0.9 %???Baso % - 0.4 %???Imm Gran - 0.3 %???Abs. Imm Gran - 0.0 k/mm3 Comprehensive Metabolic Panel (09/09/2023) ???Sodium - 138 mmol/L???Potassium - 4.2 mmol/L???Chloride - 105 mmol/L???Bicarbonate Level - 22 mmol/L???Anion Gap - 11???Glucose Level - 158 mg/dL???BUN - 20 mg/dL???Creatinine-Blood - 0.9 mg/dL???Estimated GFR Creatinine - 66 ML/MIN/1.73 M2???Calcium - 9.0 mg/dL???Protein, Total - 5.9 Gm/dL???Alb umin - 3.9 Gm/dL???AG Ratio - 2.0???Alkaline Phosphatase - 104 units/L???AST (SGOT) - 139 units/L???ALT (SGPT) - 118 units/L???Bilirubin, Total - 0.5 mg/dL GLUCOSE POC (09/09/2023) ???Glucose, POC - 102 mg/dL Hemoglobin A1c, (Diagnostic) (09/06/2023) ???Hemoglobin A1C (Monitoring) - 6.7 % Lactate Level (09/06/2023) ???Lactate - 1.0 mmol/L Lipid Panel (09/06/2023) ???Cholesterol - 136 mg/dL???Triglycerides - 71 mg/dL???HDL Cholesterol - 62 mg/dL???LDL Cholesterol - 60 mg/dL???Non HDL Cholesterol - 74 mg/dL Magnesium Level (09/09/2023) ???Magnesium - 2.2 mg/dL NT ProBNP (09/06/2023) ???Nt-Probnp - 466 pg/mL Phosphorus Level (09/07/2023) ???Phosphorus - 2.7 mg/dL POC Hemochron ACT-LR (09/06/2023) ???POC ACT-LR - 283.0 seconds Troponin T, High Sensitivity (09/06/2023) ???High Sensitivity Troponin (HSTnT) - 809 ng/L TSH (09/06/2023) ???TSH - 2.57 uIU/mL Allergies (NKA means No Known Allergies) NKA Problems Active Problems??(33) ??Lower Urinary tract symptoms?? Abdominal pain?? Anemia?? Anorexia?? Asthma?? background Diabetic retinopathy?? Chronic kidney disease stage 2?? Constipation?? Depression?? Diabetes mellitus without mention of complication?? Diabetic neuropathy?? DM (diabetes mellitus), type 2?? Dyslipidemia?? Dysphagia?? Edema?? Essential (primary)Hypertension?? Failure to thrive in adult?? Gastric bypass status for obesity?? GERD (gastroesophageal reflux disease)?? Glaucoma?? HTN (hypertension)?? Hyperlipidemia?? Nephritis NOS in other disease?? Obstructive sleep apnea?? Osteoporosis?? Pain in joint involving shoulder region?? Rhinitis, allergic?? S/p cholecystectomy?? unspeicified acquired Hypothyroidism?? Varicose vein?? Varicose veins of left lower extremity?? Vitamin B deficiency?? Vitamin D deficiency?? Education Materials Below is the list of Educational Leaflet Providered with your Discharge Instructions. [employer] Patient Education - What is a Heart Stent??? [employer] Patient Education - Understanding Transradial Cardiac Catheterization?? [employer] Patient Education - Rosuvastatin Oral Tablet?? [employer] Patient Education - Nitroglycerin Sublingual Tablet?? [employer] Patient Education - Dapagliflozin Oral Tablet?? [employer] Patient Education - Metoprolol Oral Tablet?? [employer] Patient Education - Losartan Oral Tablet?? [employer] Patient Education - Furosemide Oral Tablet?? [employer] Patient Education - Ticagrelor Oral Tablet?? [employer] Patient Education - Clonazepam Oral Tablet?? [employer] Patient Education - Heart Failure: Making Changes to Your Diet?? [employer] Patient Education - Heart Failure: Know Your Baselines?? [employer] Patient Education - Heart Failure?? [employer] Patient Education - Heart Failure Zones?? [employer] Patient Education - Understanding Coronary Artery Disease (CAD)?? Web[employer] Patient Education - Coronary Artery Disease?? [employer] Patient Education - Heart Health: What Is a Heart Attack??? Valuables and Belongings I fully understand and agree that [facility] accepts no responsibility for all my personal property including clothing, toilet articles, radios, jewelry, dentures, hearing aids, rings, money, or any other property that is in my possession or is brought to me after admission. I understand certain valuables may be placed in a hospital safe for a short period of time. I understand that the hospital is not liable for loss or damage due to accident, fire, or other natural occurrence while said property is in the safe. I accept full responsibility for any personal property that I keep with me, and will not hold the hospital responsible in case of loss or disappearance. I acknowledge that i have been encouraged to send valuables and belongings home. ? Other Discharge Information ? Case Management Discharge Plan?? Discharge Plan?? Discharge Agency Information?? Discharge Level of Care at Discharge: Homehealth/VNA Agency [facility]: Intake Discharge Rx Program: Discharge Prescription Program Service Categories #1: Physical Therapy, Senior Care Discharge VNA/Hospice/Home Care: [facility] [phone] Service Comments #1: A nurse will call you to arrange a visit with you at your home. If you do not hear from agency, please call them. ?? Pulmonary Rehab Status?? Pulmonary Rehab Discharge Status?? Respiratory Rate: 16 br/min ? Cardiac Rehab Assessment?? Cardiac Rehab Inpatient Assessment?? 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 Act FAST and Check for these signs: FACE Does the face look uneven? ARM Does one arm drift down? SPEECH Does their speech sound strange? TIME Call at any sign of stroke ?? Heart Attack Signs Chest discomfort: Most heart attacks involve discomfort in the center of the chest and lasts more than a few minutes, or goes away and comes back. It can feel like uncomfortable pressure, squeezing, fullness or pain. Discomfort in upper body: Symptoms can include pain or discomfort in one or both arms, back, neck, jaw or stomach. Shortness of breath: With or without discomfort. Other signs: Breaking out in a cold sweat, nausea, or lightheaded. Remember, MINUTES DO MATTER. If you experience any of these heart attack warning signs, call to get immediate medical attention! ?? Smoking can increase your chances of developing chronic health problems and can cause harmful effects to other family members in your house. If you smoke, you are strongly encouraged to quit. Please call [facility] Link at [phone] or [phone] ([phone]) or log in to [email or web address] for referrals to smoking cessation programs. ?? 020 Suicide & Crisis Lifeline is available 05/01 if you or someone you know needs to find a reason to keep living. By calling 198 you'll be connected to a skilled, trained counselor at a crisis center in your area. INPATIENT DISCHARGE INSTRUCTIONS SIGNATURE PAGE MINA CRAIGQUEAMARILIS Sage Location:[facility] Registration Date and Time:09/06/2023 15:01 EDT Primary Care Physician: Cherelle Rivera MD, Mary Espinal, Attending Physician: Michael ARRIAGA, Fercho Adair, I AMARILIS OG, have received the above patient education materials/instructions and have verbalized understanding. If ambulance or transport services are being used I further acknowledge being given a choice of service. ?? If you need to contact me, please call me at this number: . Patient/Supervisor [employer] Name: Patient/Supervisor [employer] Signature: Relationship to Patient: Witness Name/Signature: Date: * Becky Boland RN: PERFORM Event Display: Patient Education Leaflets Authored Date: What is a Heart Stent? ?? What is a Heart Stent? - Video See how two types of this forensic medical examiner are used to improve the health of your heart. To view the video go to this web address: [email or web address] Or, scan this QR code with your smart phone ?? [employer] ?? * Becky Boland RN: PERFORM Event Display: Patient Education Leaflets Authored Date: Understanding Transradial Cardiac Catheterization ?? 93772 Understanding Transradial Cardiac Catheterization Cardiac catheterization (cardiac cath) is a common, non-surgical procedure. During the procedure, your doctor will insert a long, thin tube (catheter) into an artery and move it up into your heart. Transradial means the catheter is inserted into an artery in the wrist (the radial artery) rather than the groin (the femoral artery). This procedure can be used to diagnose and treat certain heart problems. Why do I need a transradial cardiac cath? You may need a cardiac cath if signs indicate a problem with your heart. These may include: ??? Symptoms of chest pain, tightness, or heaviness (known as angina). This is a common symptom of blocked heart arteries, known as coronary artery disease. ??? Symptoms of weakness, dizziness, trouble breathing, or swollen legs or feet. These may be symptoms of a problem with a heart valve or the heart muscle. ??? Other test results show heart problems. Tests may include stress tests, heart scans, and echocardiography. During a cardiac cath, your doctor can see the condition of the coronary arteries and heart valves.They can also check how well the heart pumps and the flow of blood through the heart. Your doctor can also measure pressures and take blood samples. And, if needed, they can open blocked arteries. This can help reduce symptoms of angina. Cardiac cath is often done using a catheter inserted into an artery in the groin. During transradial cardiac cath, the catheter is inserted into an artery in the wrist. This can mean less bleeding and a faster recovery. Some people may have blockages in the groin arteries as well as in the heart arteries, making it hard to reach the heart. The transradial approach can be used to get around this problem.? What happens during a transradial cardiac cath? The procedure is done in the hospital or a surgery center. First, an IV line is put in your arm or hand to deliver fluids and medicines. You will likely be given medicine to relax you and make you drowsy. When the procedure starts: ??? You lie on an X-ray table. ??? The skin over the insertion sitein your wrist is numbed. ??? The doctor makes a tiny puncture or incision into the artery in the wrist. They then insert a catheter and threads it through the blood vessel into your heart. ? Thedoctor may inject a contrast fluid through the catheter into the arteries. This fluid makes the arteries show up better on X-rays. ??? Tests may be done to check the condition of your heart and arteries. If needed, the doctor can clear blockages in the arteries or do other repairs. ??? When the doctor is finished, they will remove the catheter and put pressure on the site to prevent bleeding. They could use a special device to reduce how long the pressure needs to be on. Or they could use an inflatable band to keep pressure on the site. Nursing staff will gradually reduce the pressure in the band after your procedure. ??? You will stay for a time to recover, and then go home. If this was anemergency procedure, you will likely stay in the hospital at least overnight. ?? What are the risks of transradial cardiac cath? These include: ??? Bleeding, bruising, infection, or blood clots ??? Damage to the radial artery that may cause injury to the hand ??? Nerve damage to the hand ??? Allergic reaction to the contrast fluid ??? Abnormal heartbeat (arrhythmia) ??? Damage to blood vessels or tissues ??? Kidney damage orfailure ??? The need for emergency heart surgery ??? Heart attack, stroke, or ?? Last Reviewed Date: 2021 ?? [employer]. All rights reserved. This information is not intended as a substitute for professional medical care. Always follow your healthcare professional's instructions. ?? * Becky Boland RN: PERFORM Event Display: Patient Education Leaflets Authored Date: [id number] Rosuvastatin Oral Tablet ?? [id number] Rosuvastatin Oral Tablet Brands: Crestor Us[employer] Para reducir los niveles altos de grasa en la kym. ?? Instrucciones Trague el medicamento sin aplastarlo o masticarlo. Violeta medicamento se puede madhu con o sin alimentos. Mantenga el medicamento a temperatura ambiente, alejado pino y el calor. No tome violeta medicamento con anti??cidos. Es importante que contin??e tomando todas las dosis de violeta medicamento a la hora indicada aunque se sienta rosita. Si olvida madhu lilian dosis a tiempo, t??samuel irizarry pronto lo recuerde. Si faltan menos de 12 horas para la siguiente dosis, no tome la dosis olvidada. Vuelva al horario normal de las dosis. No tome dos dosis al mismo tiempo. Informe a schuster m??dico y a schuster farmac??utico acerca de todos los medicamentos que usa. [place] incluye medicamentos con y sin receta m??dica, vitaminas y medicamentos a base de hierbas. Es muy importante que siga las instrucciones de schuster m??dico para todos los an??lisis de kym. ?? Precauciones Informe a schuster m??dico y a schuster farmac??utico si alguna vez jiménez tenido lilian reacci??n al??rgica a un medicamento. No use el medicamento m??s veces de lo indicado. Consulte a schuster m??dico antes de beber alcohol mientras usa violeta medicamento. Llame al m??dico si observa alg??n cambio en la cantidad de orina o si ??sta es oscura. No amamante mientras est?? usando violeta medicamento. Violeta medicamento puede pasar al beb?? a danny??edge stitcher la leche materna. Madeline el embarazo, violeta medicamento solo debe usarse cuando sea claramente necesario. Hable con schuster m??dico acerca de los riesgos y beneficios. No empiece ni deje de madhu otros medicamentos sin hablar fermin con el m??dico o farmac??utico. No comparta violeta medicamento con otras personas a quienes no se les recet??. ?? Efectos Secundarios Llame al m??dico u obtenga atenci??n m??dica de inmediato si nota cualquiera de estos efectos secundarios m??s graves: ??? falta de energ??a y cansancio ??? signos de da??o hep??yo (tales guy ojos o piel amarillentos, orina oscura o cansancio inusual) ??? dolor muscular ??? n??usea ??? indigesti??n estomacal o dolor abdominal Algunas personas podr??an tener reacciones al??rgicas a violeta medicamento. Entre los s??ntomas pueden incluirse: dificultad para respirar, erupci??n en la piel, comez??n, hinchaz??n o mareos intensos.Si nota algunos de estos s??ntomas, busque asistencia m??dica r??pidamente. ?? Extra Hable con schuster m??dico, enfermero o farmac??utico si tiene alguna pregunta acerca de violeta medicamento. ?? [email or web address] NOTA IMPORTANTE: En violeta documento hay lilian explicaci??n breve sobre c??mo usar el medicamento, perono incluye todo lo que hay que saber acerca del medicamento. Schuster m??dico o schuster farmac??utico podr??a suministrarle otros documentos acerca de schuster medicamento. Comun??quese con ellos si tiene alguna pregunta. Siga siempre uriel consejos. Lilian descripci??n m??s completa de violeta medicamento est?? disponibleen ingl??s. Escanee violeta c??digo en schuster tel??fono inteligente o en schuster tableta, o use la direcci??n web que aparece a continuaci??n. Tambi??n puede pedirle a schuster farmac??utico lilian copia impresa. Si tiene alguna pregunta, h??gasela a schuster farmac??utico. La exhibici??n y el uso de esta informaci??n sobre f??rmacos est?? sujeta a los T??rminos de Uso. Copyright(c) 2022 [employer] ?? 8480-8501 [employer]. All rights reserved. This information is not intended as a substitute for professional medical care. Always follow your healthcare professional's instructions. ?? * Event Display: Hemodynamic Procedure Report Authored Date: * Serg HASSAN, Tonya Payne: PERFORM, SIGN, VERIFY Event Display: Cardiac Rehab Note Authored Date: Patient: AMARILIS OG Age: 72 years Sex: Female : 1950 Associated Diagnoses: None Author: Serg HASSAN, Tonya Payne Diagnosis Cardiac Rehab Diagnosis: NSTEMI RENNY to LAD- Stratus Serging Machine Operator Vladimir, #[id number] assisted with translation during visit. Pre-exercise Vitals Vital Signs: 77 SR HR, 102/75 BP Supine, 100% room air SaO2. Vital Signs Comment: Reviewed in [facility]IS. Pre-exercise Physical Examination Neurologic: alert & oriented. Cardiovascular: heart rate regular. Lungs: Normal I:E. Activity Activity tolerance: Change in activity tolerance Pt states she has been ambulating back and forth to bathroom with minimal assist, uses walker at baseline at home. Assistive Devices Assistive Device: Wheeled walker. Compliance problems: Compliance problems: diet, exercise. . Patient Education Education: Route Contractor present, Written material included, Post procedure guidelines, Stent card reviewed, radial site care/ management, importance of taking anti-platelet medications, mediterranean diet discussed with pt. . Education topic Teachback comprehension 75% Topic: Pathophysiology, Lipid management, Diabetes management, Medication education, Role of exercise, Home activity guidelines/limits, Infarct recovery guidelines. Recommendation and Plan Ambulate: 4-6 times/day, with assistive device. Encourage: ADLs, AROM. Outpatient follow up recommended: Discussed option to attend outpatient phase 2 cardiac rehab with pt. Available at both [facility] and [facility]. Pt declines, does not have a car, has Parkinsons and also does not drive. Pt does not have transportation to attend. Pt provided with exercise routine to start with at home, starting with 5-10 minute walk with LPN CARE MANAGER twice a day, increasing as tole rated. Discussed goal of >150 minutes of exercise a week. . Cardiac Rehab: Will sign off at this time, Please page [phone] with questions or if pts condition changes. Cardiac catheterization study * Event Display: Cardiac [facility] Report Authored Date: Cardiac Diagnostic + PCI Report Demographics Patient Name MINA OLMOS Gender Female Corporate Race Unknown Facility Room Number M510 Height 60 inches Date of 1950 Weight 130.07 pounds Age 72 year(s) BSA 1.55 m2 Accession Number [id number] BMI 25.4 kg/m2 Referring Physician Blanquita Olmstead MD Date of Study 09/06/2023 Performing Physician Cristino Best MD Fellow Montana Eckert MD Interventional Physician Cristino Best MD Procedure Procedure Type Diagnostic procedure:Coronary Angiography with [facility] PCI procedure:Coronary IVUS, Stent (Drug Eluting) Miscellaneous:ACT [facility] Diagnostic Catheterization Status:Urgent [facility] Interventional Catheterization Status:Urgent Indications Indications: NSTEMI. Clinical History Clinical Evaluation Leading to Procedure - The patient's CAD presentation was assessed as: Non-STEMI. - The patient's anginal syndrome during the past two weeks was assessed as: Class III according to the [place] Cardiovascular Society Classification System (CCS). ACC Risk Factors The patient risk factors include:treated hypercholesterolemia, treated hypertension, diabetes mellitus, last creatinine: 0.7 mg/dl, creatinine clearance: 68.66 ml/min and dyslipidemia. Additional Clinical History:72-year-old female with history of hypertension, hyperlipidemia, diabetes mellitus type 2 who presented to the hospital with NSTEMI. She continued to have chest pain despite nitroglycerin drip. Initial troponin was 890. She is brought to cardiac [facility] emergently for unstable NSTEMI. Creatinine is 0.7 Procedure Data Procedure Date Date: 09/06/2023Start: 17:34End: 18:07 The procedure was explained in detail to the patient. Risks, complications and alternative treatments were reviewed. Written consent was obtained. Entry Locations - Retrograde Percutaneous access was performed through the Right Radial artery. A 6 Fr sheath was inserted. Hemostasis was successfully obtained using TR Band. Procedure Medications - Versed (Midazolam) I.V. 1 mg. - Fentanyl I.V. 50 mcg. - Oxygen NC 2 l/min. - Lidocaine 2% S.C. Right Wrist 5 ml. - Nitroglycerin I.A. 200 mcg. - Heparin I.V. 5000 units. - Ticagrelor P.O. 180 mg. - Heparin I.V. 2000 units. Sedation: My in-service moderate sedation time was from 1730 to 1804. Refer to the procedural log for detailed chronological information. Contrast Material - Omnipaque 45 ml Diagnostic Catheters - ADxTerity 5F 100 cm JR 4.0was used for: Left heart catheterization. - ADxTerity 5F 100 cm JR 4.0was used for: Right coronary angiography. - ADxTerity 5F 100 cm JL 3.5was used for: Left coronary angiography. - ALAUNCHER 6F 100 cm EBU 3.5was used for: PCI. Fluoroscopy Time: PCI: 7:31 minutes. Total: 7:31 minutes. Fluoroscopy Dose: PCI: 191 mGy. Total: 191 mGy. Dose Area Product:PCI: 60116 mGy/cm2. Total: 64948 mGy/cm2. Procedure Narrative Patient is seen and examined in the [facility]. The description of the procedure and the risk and benefit including bleeding, radial spasm, contrast-induced nephropathy, DC, stroke, , angioplasty related dissection or perforation were mentioned to the patient. The patient understood and agreed to proceed with the procedure. Right radial artery access was obtained and a 6 Lao sheath was placed. The diagnostic angiogram was performed with JL 3.5 and JR4 diagnostic catheter. LVEDP was measured along with pullback gradient across aortic valve. Additional heparin was given and ACT was achieved more than 250 seconds. A run-through coronary wire was advanced into the distal LAD and a standard coronary wire was placed in D1. The lesion was predilated with 2.5 mm X12 millimeter semicompliant balloon. Then IVUS was performed. Then we placed a 3.0 mm X 15 mm Bhanu frontier RENNY. Due to step up and step down, we decided not to postdilate the stent any further. At the end of the procedure, the sheath was removed and a TR band was placed. Angiographic Findings Cardiac Arteries and Lesion Findings LMCA: Mild luminal irregularities (<30%). LAD: Lesion in Mid LAD: Mid subsection.95% stenosis 8 mm length. Pre procedure SATISH III flow was noted. Good runoff was present.Culprit lesion. LCx: Lesion in 2nd Ob Bella: Proximal subsection.30% stenosis . RCA: Lesion in Dist RCA: Distal subsection.60% stenosis . Comments:Unchanged from prior angiogram. Hemodynamics Condition: Rest O2 Consumption: Estimated: 210.80Heart Rate: 121 bpm Pressures (mmHg) +-----+ + !Site !Pressure ! +-----+ + !LV !62/-2 ,13 ! +-----+ + !AO !133/59 (88)! +-----+ + !LV !93/0 ,12 ! +-----+ + !AO !138/57 (89)! +-----+ + Valve Gradients and Areas +------+----+----+----+-----+----+------+ !Valve !Peak!Mean!Area!Index!Flow!Source! +------+----+----+----+-----+----+------+ !Aortic!0 ! ! ! ! ! ! +------+----+----+----+-----+----+------+ !Aortic!0 ! ! ! ! ! ! +------+----+----+----+-----+----+------+ Shunts Oxygen Values O2 Consumption 210.8 Interventional Procedure Cardiac lesions LAD: Lesion in Mid LAD: Mid subsection.95% stenosis 8 mm length reduced to 0%. Pre procedure SATISH III flow was noted. Post Procedure SATISH III flow was present. Good runoff was present.The guidewire cross was successful.Culprit lesion. Devices used - Runthrough NS 0.014 in 180 cm Extra Floppy. Number of passes: 1. - Emerge 2.50 mm 12 mm RX. Diameter: 2.5 mm. Length: 12 mm. 1 inflation(s) to a max pressure of: 14 noemí. - [place] 2.9F/3.5F 150 cm .014 in. Number of passes: 1. - [place] 3.00 mm 15 mm RX. Diameter: 3 mm. Length: 15 mm. 1 inflation(s) to a max pressure of: 12 noemí. Conclusions Diagnostic Summary 72-year-old female with history of hypertension, hyperlipidemia, diabetes mellitus type 2 who presented to the hospital with NSTEMI. LVEDP 13 mmHg. No significant pullback gradient across aortic valve. Diagnostic angiogram revealed mild luminal irregularities of the LMCA, 90% stenosis at the mid subsection of mid LAD just before the bifurcation with D2 which is the culprit lesion, 30% stenosis in the proximal subsection of OM 2 and 60% stenosis in the distal subsection of distal RCA which is unchanged from prior angiogram. Proceed with intervention of the mid LAD culprit lesion. Diagnostic Recommendations Proceed with intervention of the mid LAD culprit lesion. Interventional Summary Mid LAD: IVUS guided successful PCI of the mid LAD using 3.0 mm X 15 mm Bhanu frontier RENNY. Interventional Recommendations Continue aspirin 81 mg p.o. indefinitely and Brilinta 90 mg p.o. twice daily 1 year postintervention. Check lipid panel, echocardiogram tomorrow and hemoglobin A1c. Guideline directed medical management for coronary artery disease. Cardiac rehab as outpatient. Signatures * Event Display: Cardiac [facility] Report Authored Date: Admission evaluation note * Demetrius Jenkins MD: MODIFY, MODIFY, MODIFY, PERFORM, MODIFY, MODIFY, MODIFY Event Display: Admission Note Authored Date: Patient: ??AMARILIS OG ? Age:??72 Years?Sex:??Female?:??1950?? Chief Complaint/Reason for Consultation NSTEMI History of Present Illness This is a case of a 72-year-old Comoran-speaking only female with a past medical history concerningfor hypertension, hyperlipidemia, thyroid disease mild coronary disease, mild coronary artery disease diabetes mellitus, CKD, chronic lower back pain, anxiety/depression who initially presented to [facility] in the setting of persistent chest pain.?? Patient states that she started experiencing central, inferior chest pressure yesterday on 09/04 that was associated with radiation to her left upper extremity and left lower extremity, in addition to her left jaw/face.?? She also endorses multiple episodes of vomiting, nausea, diaphoresis and shortness of breath.?? The patient otherwise denies fever, chills, abdominal pain, diarrhea/constipation. ?? She was initially evaluated at [facility] and was given 1 L fluids given borderline hypotensive blood pressures.?? IV morphine, heparin, metoprolol were given.?? The patient was found to have very minimal changes on EKG (compared to previous) including T wave inversion on lead III, withminimal ST elevations in inferior leads.?? The patient was also given aspirin 81 mg and given nitroglycerin topical paste (1 continues with minimal relief in chest pain.?? After speaking to cardiology [facility], the patient was transferred.?? Troponin I obtained at [place] was found to be >3000. ?? During my evaluation at bedside in the intermediate care unit, we continue to uptitrate the nitroglycerin with the patient's pain being relieved from 10/10 to 8/10 nearing 80 mcg/min of nitroglycerin.?? The patient states that this is the worst pain that she has felt and continues to feel chest pressure.The patient does not have any dynamic EKG changes when evaluated at bedside with this chest pain.?? Troponin obtained here was found to be 809.?? After evaluating about symptoms interventional cardiology, given RENNY her symptoms and elevated troponin known coronary disease, the decision was made to take the patient for urgent cardiac catheterization. ?Interventional Summary for [facility]??in September,: ??1. Right dominant circulation. ??2. Left main large sized vessel with no significant disease. ??3. LAD is a large sized vessel there is a 30% proximal LAD stenosis. There??is a 20% mid LAD stenosis. ??4. Circumflex is a large sized vessel. There is a 30% mid OM1 stenosis. ??5. RCA is a large sized vessel. There is a 60-70% distal RCA stenosis at the proximal bifurcationthat is hemodynamically insignificant by IFR assessment of 0.94. ??6. LVEDP is 4 mmHg. ?? Extensive medication reconciliation completed with patient. All medications are up to date. Review of Systems Constitutional:??No weight loss, fever, chills, weakness or fatigue. Respiratory:??Shortness of breath Cardiovascular:??Chest pain/pressure Gastrointestinal: Nausea/vomiting.??No abdominal pain or blood in stool. Genitourinary:??No burning micturition. No urinary frequency or incontinence. Neurologic:??No headache, dizziness, syncope, unilateral weakness, ataxia, numbness or tingling in the extremities. No change in bowel or bladder control. Psychiatric:??No depression or anxiety. Objective Vital Signs?? Temperature: 97.7 DegF (09/06/23 15:00:00) Temperature Route: Oral (09/06/23 15:00:00) Heart Rate Monitored: 66 bpm (09/06/23 16:00:00) Respiratory Rate:??15 br/min??Low (09/06/23 16:00:00) Systolic Blood Pressure:??149 mm Hg??High (09/06/23 16:00:00) Diastolic Blood Pressure:??87 mm Hg??High (09/06/23 16:00:00) Pulse Pressure: 62 mm Hg (09/06/23 16:00:00) Oxygen Saturation: 100 % (09/06/23 16:00:00) Mode of Delivery (Oxygen): Room air (09/06/23 15:55:00) Early Warning Score: 2 (09/06/23 16:32:12) ? Intake/Output? No Data Available ? Physical Exam Constitutional: Alert, in no distress. Mental Status: Oriented to person, place and time. Respiratory: Clear to auscultation. No wheezing, rales or rhonchi. Cardiovascular: S1 S2 regular. No murmurs, rubs or gallops. Gastrointestinal: Abdomen soft, non-tender, non-distended. Normal bowel sounds. No pulsatile mass. No hepatosplenomegaly. Genitourinary: No costovertebral angle tenderness. Neurologic: Moves all extremities spontaneously. Sensation intact bilaterally. Psychiatric: Normal mood and affect Assessment/Plan This is a case of a 72-year-old Comoran-speaking only female with a past medical history concerningfor hypertension, hyperlipidemia, thyroid disease mild coronary disease, mild coronary artery disease diabetes mellitus, CKD, chronic lower back pain, anxiety/depression who initially presented to [facility] in the setting of persistent chest pain.? Non-ST Elevation Myocardial Infarction Presented with 1 day history of chest pain, nausea/vomiting, diaphoresis + SOB EKG revealed??T wave inversion in Lead 3, minimal ST elevations not meeting criteria in Leads 2/3 Troponin of??3068 (troponin I at [place]) Does describe prior symptoms of angina + b/l LE swelling RF: HLD, HTN, DM, prior positive stress test, prior h/o CAD LHC in September, revealing 60-70% RCA stenosis with IFR of 0.94; left system with <30% lesions ?? Plan: - Continue heparin drip - Consult IC for??cardiac catheterization - Continue with aspirin (?+ DAPT depending on [facility]) - Continue Rosuvastatin 40mg - Hold Imdur/metoprolol - Hold furosemide - EKG PRN chest pain with SL NG - Echo,??A1c,??lipid panel - Cardiac Rehab - Manager Adobe regarding dietary modification, regular physical activity, weight loss, and smoking cessation ?? Chronic Medical Conditions: Levothyroxine: continue levothyroxine HTN: hold amlodipine Chronic pain (back/fibromyalgia): continue gabapentin Anxiety: continue clonazepam (scheduled) as patient takes daily, continue venlafaxine, continue topiramate Asthma: continue albuterol, PRN Maximiliano oliver Ellipta inpatient (on beclomethasone outpatient) ?? Quality Measures: Code Status:??Full resuscitation Diet:??NPO DVT Prophylaxis:??Heparin gtt ?? Patient has been??seen and discussed with Dr. Penn ?? Dr. Demetrius Jenkins PGY2 Pager: [phone]?? Histories Past Medical History/Problem List Active Problems(33) Lower Urinary tract symptoms Abdominal pain Anemia Anorexia Asthma background Diabetic retinopathy Chronic kidney disease stage 2 Constipation Depression Diabetes mellitus without mention of complication Diabetic neuropathy DM (diabetes mellitus), type 2 Dyslipidemia Dysphagia Edema Essential (primary)Hypertension Failure to thrive in adult Gastric bypass status for obesity GERD (gastroesophageal reflux disease) Glaucoma HTN (hypertension) Hyperlipidemia Nephritis NOS in other disease Obstructive sleep apnea Osteoporosis Pain in joint involving shoulder region Rhinitis, allergic S/p cholecystectomy unspeicified acquired Hypothyroidism Varicose vein Varicose veins of left lower extremity Vitamin B deficiency Vitamin D deficiency ? Past Surgical History No surgery history documented. ? Social History Alcohol Details:??Use: Never. Employment/School Details:??Status: Retired. 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 Hasn't worked since moving to [place]. Exercise Details:??Self assessment: Poor condition. Home/Environment Details:??Living situation: Home/Independent. ??Lives with: Significant other. ??Other: Carpet in home, baesboard heating; uses dust covers on mattress and pillows, no humidifier, uses air purifier;. Other Details:??Name: moved from [place] approx. 20 years ago. Substance Abuse Details:??Use: Never. Tobacco Details:??Never smoker ? Family History Mother: Cancer of stomach ? Medications Home Medications Albuterol (ProAir HFA 90 mcg/inh inhalation aerosol with adapter)?2?puff(s)?Inhalation?4 times a day Albuterol/Ipratropium (albuterol-ipratropium 3 mg-0.5 mg/3 ml inhalation solution)?3?Milliliter?Neb?4 times a day Amlodipine (amLODIPine 10 mg oral tablet)?1?tab(s)?10?Milligram?By Mouth?Daily Aspirin (aspirin 81 mg oral enteric coated tablet)?1?tab(s)?81?Milligram?By Mouth?Daily Beclomethasone (Qvar 80 mcg/inh inhalation aerosol with adapter)?1?puff(s)?Inhalation?2times a day Cholecalciferol (Vitamin D3 5000 intl units oral capsule)?1?capsule?5,000?InternationalUnit?By Mouth?Daily Clonazepam (clonazepam 0.5 mg oral tablet)?2?tab(s)?1?Milligram?By Mouth?3 times a day dulaglutide (Trulicity Pen)?Subcutaneous Infusion?Every week Durable Medical Equipment (Compression stockings)?See Instructions?Thigh high compression stockings strength 20-30 mmHG, Dx: deep and superficial vein reflux s/p Right GSV ablation Durable Medical Equipment (20/30 knee high compression stockings with zipper)?See Instructions?Apply daily in the am and remove at bedtime Durable Medical Equipment (Compression Stockings)?See Instructions?surgical, calf length 20-30 mm Hg Durable Medical Equipment (Juxtafit Knee-high Compression Garments(bilateral, left, right) with 2 pairs of liners)?See Instructions?as zxziqiti20/30 mmhg Furosemide (furosemide 20 mg oral tablet)?20?Milligram?1?tablet?By Mouth?Daily Gabapentin (gabapentin 600 mg oral tablet)?1?tab(s)?600?Milligram?By Mouth?3 times a day Isosorbide Mononitrate (isosorbide mononitrate 60 mg oral tablet, extended release)?1?tab(s)?60?Milligram?By Mouth?Daily in AM Levothyroxine (levothyroxine 125 mcg (0.125 mg) oral capsule)?1?capsule?125?Microgram?By Mouth?Daily Metformin (metformin 500 mg oral tablet)?1?tab(s)?500?Milligram?By Mouth?2 times a day Metoprolol (Metoprolol Succinate ER 50 mg oral tablet, extended release)?1?tab(s)?50?Milligram?By Mouth?Daily Montelukast (montelukast 10 mg oral tablet)?10?Milligram?1?tablet?By Mouth?Daily Pantoprazole (Protonix 40 mg oral enteric coated tablet)?1?tab(s)?40?Milligram?By Mouth?Daily Rosuvastatin (rosuvastatin 40 mg oral tablet)?1?tab(s)?40?Milligram?By Mouth?Daily at bedtime Topiramate (topiramate 100 mg oral tablet)?1?tab(s)?100?Milligram?By Mouth?2 times a day Venlafaxine (venlafaxine 75 mg oral capsule, extended release)?75?Milligram?1?capsule?By Mouth?Daily Zolpidem (Ambien 10 mg oral tablet)?1?tab(s)?10?Milligram?By Mouth?Daily at bedtime ? Inpatient Medications Medications (25) Active SCHEDULED: (11) Amitriptyline 25 mg Tablet (amitriptyline 25 mg oral tablet) ??100 mg, By Mouth, Daily at bedtime Aspirin 81 mg EC Tablet (aspirin 81 mg oral delayed release tablet) ??81 mg, By Mouth, Daily Clonazepam 1 mg Tablet (clonazePAM 1 mg oral tablet) ??1 mg, By Mouth, 3 times a day Gabapentin 300 mg Capsule (gabapentin 300 mg oral capsule) ??600 mg, By Mouth, 3 times a day Levothyroxine 125 mcg Tablet (levothyroxine 125 mcg (0.125 mg) oral tablet) ??125 mcg, By Mouth, Daily Montelukast 10 mg Tablet (montelukast 10 mg oral tablet) ??10 mg, By Mouth, Daily at bedtime NaCl 0.9% Flush 3ml (NaCL 0.9% Flush) ??3 mL, IV Push, Every 8 hours Pantoprazole 40 mg EC Tablet (Protonix 40 mg oral delayed release tablet) ??40 mg, By Mouth, Daily Rosuvastatin 20 mg Tablet (rosuvastatin 40 mg oral tablet) ??40 mg, By Mouth, Daily at bedtime Topiramate 100 mg Tablet (Topamax Tablet) ??100 mg, By Mouth, 2 times a day Venlafaxine 37.5 mg XR Capsule (venlafaxine 37.5 mg oral capsule, extended release) ??75 mg, By Mouth, Daily CONTINUOUS: (2) Heparin 25,000 units / 250 mL D5W premix 25,000 units [12 units/kg/hr] + D5%W Premixed IV 250 mL (Heparin 25,000 units in 250 mL Premix 25,000 units [12 units/kg/hr] + D5%W Premixed IV 250 mL) ??250 mL, IV Infusion, 8.27 mL/hr Nitroglycerin 100 mg Cont IV 100 mg (Nitroglycerin 100 mg/250 mL D5W 100 mg) ??100 mg 250 mL, IV Infusion PRN: (12) Acetaminophen 325 mg Tablet (Acetaminophen Tablet) ??650 mg, By Mouth, Every 4 hours Albuterol 90mcg/Inhalation Inhaler HFA (albuterol CFC free 90 mcg/inh inhalation aerosol) ??90 mcg 1 puffs, Inhalation, Every 4 hours Dextromethorphan-Guaifenesin 20 mg-200 mg/10 mL Liqu UD (Robitussin DM Liquid) ??10 mL, By Mouth, Every 4 hours Docusate Sodium 100 mg Capsule (Docusate Sodium Capsule) ??100 mg 1 capsule, By Mouth, 2 times a day Heparin 5000 units/mL Inj (1 mL) (Heparin Inj) ??4,000 units 0.8 mL, IV Push, Every 6 hours Heparin 5000 units/mL Inj (1 mL) (Heparin Inj) ??2,000 units 0.4 mL, IV Push, Every 6 hours Melatonin 3 mg Tablet (Melatonin Tablet) ??3 mg, By Mouth, Daily at bedtime NaCl 0.9% Flush 3ml (NaCL 0.9% Flush) ??3 mL, IV Push, Every 8 hours Polyethylene Glycol 17 Gm Powder (MiraLax Powder) ??17 Gm 1 pack/packet, By Mouth, Daily Senna Tablet ??8.6 mg 1 tablet, By Mouth, 2 times a day Simethicone 80 mg Chewable Tablet (Simethicone Tablet) ??80 mg, Chew, 3 times a day TraMADOL 50 mg Tablet (traMADol 50 mg oral tablet) ??50 mg, By Mouth, Every 6 hours ? Results Recent Labs BLOOD COUNT & DIFF WBC 6.7 k/mm3 ()?? 09/06/2023 15:48 RBC 4.17 m/mm3 (Low)?? 09/06/2023 15:48 Hgb 12.8 Gm/dL ()?? 09/06/2023 15:48 Hct 39.3 % ()?? 09/06/2023 15:48 MCV 94.2 femtoliters ()?? 09/06/2023 15:48 MCH 30.7 pg ()?? 09/06/2023 15:48 MCHC 32.6 g/dL (Low)?? 09/06/2023 15:48 Platelet Count 232 k/mm3 ()?? 09/06/2023 15:48 RDW-SD 46.5 femtoliters ()?? 09/06/2023 15:48 MPV 10.9 femtoliters ()?? 09/06/2023 15:48 Nucleated RBC (Automated) 0.0 #/100 WBC'S ()?? 09/06/2023 15:48 Abs. NRBC 0.0 k/mm3 ()?? 09/06/2023 15:48 Abs. Neut 4.5 k/mm3 ()?? 09/06/2023 15:48 Abs. Lymph 1.7 k/mm3 ()?? 09/06/2023 15:48 Abs. Bell 0.4 k/mm3 ()?? 09/06/2023 15:48 Abs. Eo 0.1 k/mm3 ()?? 09/06/2023 15:48 Abs. Baso 0.0 k/mm3 ()?? 09/06/2023 15:48 Neut % 67.5 % ()?? 09/06/2023 15:48 Lymph % 24.6 % ()?? 09/06/2023 15:48 Bell % 6.3 % ()?? 09/06/2023 15:48 Eos % 0.9 % ()?? 09/06/2023 15:48 Baso % 0.4 % ()?? 09/06/2023 15:48 Imm Gran 0.3 % ()?? 09/06/2023 15:48 Abs. Imm Gran 0.0 k/mm3 ()?? 09/06/2023 15:48 ?? CARDIAC High Sensitivity Troponin (HSTnT) 809 ng/L (Critical)?? 09/06/2023 15:48 ?? CHEM GENERAL Sodium 141 mmol/L ()?? 09/06/2023 15:48 Potassium 4.6 mmol/L ()?? 09/06/2023 15:48 Chloride 110 mmol/L (High)?? 09/06/2023 15:48 Bicarbonate Level 23 mmol/L ()?? 09/06/2023 15:48 Anion Gap 8 ()?? 09/06/2023 15:48 Glucose Level 112 mg/dL (High)?? 09/06/2023 15:48 BUN 17 mg/dL ()?? 09/06/2023 15:48 Creatinine-Blood 0.7 mg/dL ()?? 09/06/2023 15:48 Estimated GFR Creatinine 93 ML/MIN/1.73 M2 ()?? 09/06/2023 15:48 Calcium 8.9 mg/dL ()?? 09/06/2023 15:48 Protein, Total 6.3 Gm/dL ()?? 09/06/2023 15:48 Albumin 4.3 Gm/dL ()?? 09/06/2023 15:48 AG Ratio 2.2 ()?? 09/06/2023 15:48 Alkaline Phosphatase 107 units/L (High)?? 09/06/2023 15:48 AST (SGOT) 244 units/L (High)?? 09/06/2023 15:48 ALT (SGPT) 151 units/L (High)?? 09/06/2023 15:48 Bilirubin, Total 0.4 mg/dL ()?? 09/06/2023 15:48 Lactate 1.0 mmol/L ()?? 09/06/2023 15:48 ?? LIPID STUDIES Cholesterol 136 mg/dL ()?? 09/06/2023 15:48 Triglycerides 71 mg/dL ()?? 09/06/2023 15:48 HDL Cholesterol 62 mg/dL ()?? 09/06/2023 15:48 LDL Cholesterol 60 mg/dL ()?? 09/06/2023 15:48 Non HDL Cholesterol 74 mg/dL ()?? 09/06/2023 15:48 ? * Fili ARRIAGA, Mango N: PERFORM Event Display: Admission Note Authored Date: I have seen and evaluated the patient and discussed the plan as outlined??below with the mobile paramedical examiner. I have spent a substantive time in chart review, history, ROS, and physical exam. I have personally reviewed the patient's lab and imaging studies. I agree with the assessment and plan outlined below with any addendum/exception noted here (if any). 72F known moderate CAD multiple risk factors presents with acute onset CP since midnight, severe in intensity waxing and waning in nature. ECG with nonspecific changes. Trops ruled in for NSTEMI. Transferred from [place] to [facility] for IV NTG. Hadsoft BPs at [place] which seemed to have improved here. Initiated on IV NTG at high dose with persistent severe CP (slight improvement). Given ongoing CP, urgent cardiac cath recommended to evaluate for high suspicion of plaque rupture explaining her symptoms. After a long discussion with the patient utilizing a sewer tapper, patient agreed to proceed. I discussed the case with the on-callinterventional team who will be taking the patient to the lab director for an urgent coronary angiogramwith the intent of revascularization if necessary. Keep NPO. ?? CCT 95 mins ?? Mango Penn MD Interventional Cardiology - [facility] [id number] EKG study * Event Display: EKG Authored Date: * Event Display: ECG 12-Lead Authored Date: Please click on pdf link to open report * Event Display: ECG 12-Lead Authored Date: [id number] Ventricular Rate: 67 BPM Atrial Rate: 67 BPM P-R Interval: 154 ms QRS Duration: 82 ms Q-T Interval: 426 ms QTC Calculation(Bazett): 450 ms P [place]: 28 degrees R [place]: 20 degrees T [place]: 76 degrees Normal sinus rhythm Low voltage QRS Nonspecific T wave abnormality Abnormal ECG When compared with ECG of 06-SEP-2023 15:18, No significant change Confirmed by GARY BARLOW ([id number]) on 09/07/2023 7:35:11 AM [place]: GARY BARLOW * Event Display: ECG 12-Lead Authored Date: [id number] Please click on pdf link to open report * Event Display: ECG 12-Lead Authored Date: [id number] Ventricular Rate: 59 BPM Atrial Rate: 59 BPM P-R Interval: 152 ms QRS Duration: 78 ms Q-T Interval: 418 ms QTC Calculation(Bazett): 413 ms P [place]: 64 degrees R [place]: 27 degrees T [place]: 50 degrees Sinus bradycardia Low voltage QRS Nonspecific T wave abnormality Abnormal ECG When compared with ECG of 05-SEP-2022 12:38, Nonspecific T wave abnormality now evident in Anterior leads Confirmed by GARY BARLOW ([id number]) on 09/07/2023 7:34:27 AM [place]: GARY BARLOW US Heart * Event Display: Echocardiogram - Complete Authored Date: [id number] Transthoracic Echocardiography Report (TTE) Patient Demographics Patient Name MINA MAJOR, Date of Study 09/07/2023 AMARILIS [employer] Gender Female Facility Race Unknown Ethnicity or Date of 1950 Height: 60 inches Age 72 year(s) Weight: 130.07 pounds Accession Number [id number] BSA: 1.55 m2 Room Number [id number] BMI: 25.4 kg/m2 Referring Physician Gregory Romo MD Interpreting Wang Rashid MD Physician Manager Fine Dining Rose Mary Phillip MD Fellow Rose Mary Phillip MD [facility] Indications STEMI. Clinical History HLD. HTN. Diabetes. Chest pain. Study Data Type of Study TTE procedure:Echo Complete-(Doppler, Colorflow) with Contrast. Procedure Information:Definity was administered by Cooking Show Host . Study Date09/07/2023 Start Time: 11:37 AM Study Location: [facility] Adult Echo Study Status: Bedside Patient Status: Routine Technical Quality: Adequate due to body habitus. Blood Pressure:100/60 mmHg EKG: Within normal limits HR: 77 bpm Contrast Medium: Definity. Amount - 2 ml Allergies - No known allergies. 2D Measurements LV Diastolic Dimension: 3.87 cm LV Systolic Dimension: 3.06 cm LV Septum Diastolic: 1.07 cm LV PW Diastolic: 1.07 cm AO Root Dimension: 2.7 cm LA Dimension: 3 cm LVOT Stroke Volume: 44.41 ml LVOT: 1.82 cm Stroke Volume Index28.65 ml/m2 Ascending Aorta:3.2 cm Cardiac Index:2.21 l/min/m2 Doppler Measurements AV Peak Velocity: 112 cm/s MV Peak E-Wave: 55.3 cm/s AV Peak Gradient: 5.02 mmHg MV Peak A-Wave: 91.6 cm/s MV E/A Ratio: 0.6 LVOT Peak Velocity: 76.5 cm/s MV P1/2t: 69 msec LVOT VTI17.08 cm MV Deceleration Time: 243 msec TR Velocity:212 cm/s MV Area (PHT): 3.19 cm2 TR Gradient:17.98 mmHg PV Peak Velocity: 82.7 cm/s E' Septal Velocity: 4.57 cm/s PV Peak Gradient: 2.74 mmHg E' Lateral Velocity: 6.42 cm/s E/Med E':12.08597 E/Lat E':8.443770 Cardiac Anatomy Left Ventricle/Interventricular Septum The left ventricle is poorly visualized but improved with contrast enhancement. The apical views are still foreshortened.The left ventricular size is normal. The left ventricular wall thickness is mildly increased. The LV systolic function is moderately reduced . The left ventricular ejection fraction is 35-40 %. The mid to distal anteroseptal, inferoseptal wall is akinetic . The apex is dyskinetic . There is no evidence of left ventricular thrombus. Grade I, mild diastolic dysfunction with impaired LV relaxation. Left Atrium/Interatrial Septum The left atrium is normal in size. Aortic Valve The aortic valve is trileaflet. There is aortic sclerosis without stenosis. There is no aortic regurgitation. Mitral Valve The mitral valve leaflet excursion is normal. There is no significant stenosis or regurgitation. Aorta The ascending aorta and aortic root are normal in size. Right Ventricle The right ventricular size and function appears normal. Right Atrium The right atrium is normal in size. Pulmonic Valve The pulmonic valve is poorly visualized. The pulmonic valve is functionally normal. Tricuspid Valve The tricuspid valve appears normal. There is trace tricuspid regurgitation. Pumonary Artery The PASP is within normal limits. Venous Structures The inferior vena cava is poorly visualized. Pericardium/Extracardiac There is no pericardial effusion. Summary The left ventricle is poorly visualized but improved with contrast enhancement. The apical views are still foreshortened.The left ventricular size is normal. The left ventricular wall thickness is mildly increased. The LV systolic function is moderately reduced . The left ventricular ejection fraction is 35-40 %. The mid to distal anteroseptal, inferoseptal wall is akinetic . The apex is dyskinetic . There is no evidence of left ventricular thrombus. Grade I, mild diastolic dysfunction with impaired LV relaxation. The right ventricular size and function appears normal. Comparison No prior study available for comparison. Signature * Event Display: Echocardiogram - Complete Authored Date: Cardiology * Event Display: Cardiac Rhythm Strips Authored Date: * Event Display: Cardiac Rhythm Strips Authored Date: Hospital Progress note * Chele Crouch DO: PERFORM Event Display: Progress Note Hospital Authored Date: Patient: ??MINA MAJOR AMARILIS ? Age:??72 Years?Sex:??Female?:??1950?? Subjective overnight patient reporting some mild abdominal discomfort and nausea imprvoed some with zofran has not had BM in 5 days according to patient has some dizziness with ambulation denies SOB, chest pain, headache, increased swelling in extremities Review of Systems A 10 point review of systems has been completed and is otherwise negative except for HPI. Objective Vital Signs?? Temperature: 97.6 DegF (09/09/23 07:59:00) Temperature Route: Temporal (09/09/23 07:59:00) Pulse Rate: 83 bpm (09/09/23 08:52:00) Respiratory Rate: 16 br/min (09/09/23 08:51:00) Systolic Blood Pressure: 126 mm Hg (09/09/23 08:52:00) Diastolic Blood Pressure: 72 mm Hg (09/09/23 08:52:00) Blood pressure sites: Arm, left (09/09/23 07:59:00) Mean Arterial Pressure: 90 mm Hg (09/09/23 07:59:00) Pulse Pressure: 54 mm Hg (09/09/23 07:59:00) Oxygen Saturation: 98 % (09/09/23 07:59:00) Mode of Delivery (Oxygen): Room air (09/09/23 07:59:00) Early Warning Score: 2 (09/09/23 11:20:00) ? Physical Exam Constitutional: Alert, in no distress. Mental Status: Oriented to person, place and time. Respiratory: Clear to auscultation. No wheezing, rales or rhonchi. Cardiovascular: S1 S2 regular. No murmurs, rubs or gallops. Gastrointestinal: Abdomen soft, diffuse mild tenderness, non-distended. Normal bowel sounds. No pulsatile mass. No hepatosplenomegaly. Genitourinary: No costovertebral angle tenderness. Neurologic: Moves all extremities spontaneously. Sensation intact bilaterally. Psychiatric: Normal mood and affect Results Recent Labs BLOOD COUNT & DIFF WBC 9.0 k/mm3 ()?? 09/09/2023 00:30 RBC 4.10 m/mm3 (Low)?? 09/09/2023 00:30 Hgb 12.3 Gm/dL ()?? 09/09/2023 00:30 Hct 38.2 % ()?? 09/09/2023 00:30 MCV 93.2 femtoliters ()?? 09/09/2023 00:30 MCH 30.0 pg ()?? 09/09/2023 00:30 MCHC 32.2 g/dL (Low)?? 09/09/2023 00:30 Platelet Count 229 k/mm3 ()?? 09/09/2023 00:30 RDW-SD 45.6 femtoliters ()?? 09/09/2023 00:30 MPV 11.3 femtoliters ()?? 09/09/2023 00:30 Nucleated RBC (Automated) 0.0 #/100 WBC'S ()?? 09/09/2023 00:30 Abs. NRBC 0.0 k/mm3 ()?? 09/09/2023 00:30 ?? CHEM GENERAL Sodium 138 mmol/L ()?? 09/09/2023 06:58 Potassium 4.2 mmol/L ()?? 09/09/2023 06:58 Chloride 105 mmol/L ()?? 09/09/2023 06:58 Bicarbonate Level 22 mmol/L ()?? 09/09/2023 06:58 Anion Gap 11 ()?? 09/09/2023 06:58 Glucose Level 158 mg/dL (High)?? 09/09/2023 06:58 Glucose, POC 102 mg/dL (High)?? 09/09/2023 11:14 BUN 20 mg/dL ()?? 09/09/2023 06:58 Creatinine-Blood 0.9 mg/dL ()?? 09/09/2023 06:58 Estimated GFR Creatinine 66 ML/MIN/1.73 M2 ()?? 09/09/2023 06:58 Calcium 9.0 mg/dL ()?? 09/09/2023 06:58 Magnesium 2.2 mg/dL ()?? 09/09/2023 06:58 Protein, Total 5.9 Gm/dL (Low)?? 09/09/2023 06:58 Albumin 3.9 Gm/dL ()?? 09/09/2023 06:58 AG Ratio 2.0 ()?? 09/09/2023 06:58 Alkaline Phosphatase 104 units/L ()?? 09/09/2023 06:58 AST (SGOT) 139 units/L (High)?? 09/09/2023 06:58 ALT (SGPT) 118 units/L (High)?? 09/09/2023 06:58 Bilirubin, Total 0.5 mg/dL ()?? 09/09/2023 06:58 ? Assessment/Plan ??This is a case of a 72-year-old Comoran-speaking only female with a past medical history concerning for hypertension, hyperlipidemia, thyroid disease mild coronary disease, mild coronary artery disease diabetes mellitus, CKD, chronic lower back pain, anxiety/depression who initially presented to [facility] in the setting of persistent chest pain with presumed NSTEMI based on EKG. Cath with 90% stenosis at mid subsection of mid LAD which is culprit lesion confirming CHANA. Now s/p successful PCI of mid LAD. ?? Non-ST Elevation Myocardial Infarction Occlusion??Miocardial Infarction Presented with 1 day history of chest pain, nausea/vomiting, diaphoresis + SOB EKG revealed??T wave inversion in Lead 3, minimal ST elevations not meeting criteria in Leads 2/3 Troponin of??3068 (troponin I at [place]) Does describe prior symptoms of angina + b/l LE swelling RF: HLD, HTN, DM, prior positive stress test, prior h/o CAD [facility] in September, revealing 60-70% RCA stenosis with IFR of 0.94; left system with <30% lesions IVUS guided successful PCI of the mid LAD on 09/05 LVEF 40-45% on echo ?? Plan: - continue metoprolol and lisinopril - Continue with aspirin and brilinta - Continue Rosuvastatin 40mg - Hold Imdur - Hold furosemide - EKG PRN chest pain with SL NG - Cardiac Rehab - Manager Adobe regarding dietary modification, regular physical activity, weight loss, and smoking cessation ?? Chronic Medical Conditions: Levothyroxine: continue levothyroxine HTN: hold amlodipine Chronic pain (back/fibromyalgia): continue gabapentin Anxiety: continue clonazepam (scheduled) as patient takes daily, continue venlafaxine, continue topiramate Asthma: continue albuterol, PRN duonebs, Breo Ellipta inpatient (on beclomethasone outpatient) ?? Quality Measures: Code Status:??Full resuscitation Diet:??NPO DVT Prophylaxis:??Enoxaparin ?? Discharge planning: Orthostatics obtained due to dizziness PT evaluation Hopeful discharge tomorrow ?? Patient seen and discussed with the attending physician, Dr. Rodriguez Chele Crouch DO, [place] Emergency Medicine Resident Pager #[phone] ?? This note was dictated??by [employer] voice detection software,??for any errors??or clarifications, please do not hesitate to reach out for clarifications.?? * Michael ARRIAGA, Fercho Adair: PERFORM Event Display: Progress Note Hospital Authored Date: [id number] Attending Attestation: I have seen and evaluated this patient??on the day that the below note was prepared.??I have discussed the case and its management with the house staff/advanced practitioner and agree with the findings and plan as documented in the above note with the following modifications/additions (if any): ?? The above note was prepared with the help of voice recognition software. Please excuse any grammatical or spelling errors that may have occurred. ?? Thank you for involving me in the care of this patient. Please do not hesitate to contact me with questions or concerns. ?? Fercho Rodriguez MD [facility] [phone] ?? [address] [place] [phone] ? * Anca May RN: VERIFY, PERFORM, SIGN Event Display: Progress Note Hospital Authored Date: [id number] Patient: AMARILIS OG Age: 72 years Sex: Female : 1950 Associated Diagnoses: None Author: Anca May RN Findings Problem Related to Alteration in Cardiac Function (new) : Alteration in Cardiac Function/new 09/08/2023 21:00 EDT Alteration in Cardiac Status Related to Cardiac Procedure, Chest pain Goals & Outcomes, Cardiac Status Pt will resume/maintain adequate cardiac output, Pt will resume/maintain adequate hemodynamic status, Pt will resume/maintain adequate respiratory function, Pt will resume/maintain intact neuro function, Pt will maintain adequate GI/ function appropriate for pt, Pt will maintain adequate nutrition status, Pt/caregiver will state understanding of diagnosis, Pt/caregiver will state strategies to reduce risk factors Cardiac Interventions Implemented Assess/monitor cardiac status, Assess/monitor neuro status, Assess/monitor respiratory status BH Goals/Interventions, Cardiac Yes Cardiac, Problem Start 09/06/2023 16:00 Reviewed Plan with, Cardiac Status Patient Patient Progression, Cardiac Status Patient progressing according to plan . Nursing Data Cardiac Data. : Cardiac Data. 09/08/2023 20:00 EDT Cardiovascular Symptoms Edema present Heart Sounds S1, S2 Cardiac Rhythm Normal sinus rhythm Edema, Left Pretibial 1+ trace Edema, Right Pretibial 1+ trace Ankle, left 1+ trace Ankle, right 1+ trace Pedal, left 1+ trace Pedal, right 1+ trace health service worker Yes Cardiovascular WNL except . Neurological Data. : Neurological Data. 09/08/2023 22:30 EDT Stimulation None needed Pain Intensity 3 Pain relief acceptable Yes 09/08/2023 20:00 EDT Pain Location Abdomen, left upper, Abdomen, right upper Pain Intensity 5 1 - 10 Pain Scale Score 5 Quality Aching, Pressure Pain relief acceptable Yes Neuro WNL . Respiratory/Pulmonary Data. : Respiratory/Pulmonary Data. 09/09/2023 2:11 EDT Mode of Delivery (Oxygen) Room air 09/08/2023 20:00 EDT Respiratory Symptoms Dyspnea with exertion Left Upper Lobe Breath Sounds Clear Right Upper Lobe Breath Sounds Clear Right Middle Lobe Breath Sounds Clear Left Lower Lobe Breath Sounds Fine crackles Right Lower Lobe Breath Sounds Fine crackles Respiratory WNL except . Vital Signs : VITAL SIGNS SECTION 09/09/2023 2:11 EDT Early Warning Score 2.00 09/09/2023 2:11 EDT Temperature 97.1 DegF Temperature Route Temporal Pulse Rate 82 bpm Respiratory Rate 18 br/min Systolic Blood Pressure 102 mm Hg Diastolic Blood Pressure 56 mm Hg Blood pressure sites Arm, left Mean Arterial Pressure 71 mm Hg Pulse Pressure 46 mm Hg Oxygen Saturation 98 % Mode of Delivery (Oxygen) Room air 09/08/2023 19:58 EDT Temperature 97.7 DegF Temperature Route Temporal Pulse Rate 87 bpm Respiratory Rate 18 br/min Systolic Blood Pressure 107 mm Hg (Modified) Diastolic Blood Pressure 56 mm Hg (Modified) Blood pressure sites Arm, right (Modified) Mean Arterial Pressure 73 mm Hg (Modified) Pulse Pressure 51 mm Hg (Modified) Oxygen Saturation 97 % Mode of Delivery (Oxygen) Room air . Evaluation Pt received AO x 4. SR on tele. VS as noted above. Satting 97% on RA. LBM 09/04 - senna and colace given. Voiding yellow urine via primafit. Pt refused to get out of bed overnight. Skin intact. Explained meds and plan of care for the night to patient. Instructed patient to utilize call norton for assistance. Call norton and personal belongings within reach. Bed locked and in lowest position. . * Helder HASSAN , Vandana Monteiro: VERIFY, PERFORM, SIGN Event Display: Progress Note Hospital Authored Date: [id number] Patient: AMARILIS OG Age: 72 years Sex: Female : 1950 Associated Diagnoses: None Author: Helder HASSAN , Vandana Monteiro Findings Evaluation (Patient A+Ox3. Comoran speaking, bowling ball assembler accessed for translation. Denies pain. Tele monitor shows SR. Lungs clear,+BS, no edema. Right radial site dry and intact. Feeling weak. Resting in bed. Will monitor.) Patient Care team information Care Team Personnel Name: Mary Rod MD [facility] Outreach Member Role: PCP Address: Address: [address] [place] [address] [address] [place] [address]- Name: Yue Mazariegos RN Position[facility] SN RN Member Role: Primary Care Nurse Name: Mona Bello RN Position[facility] RN Member Role: Primary Care Nurse Name: Kelsie Kennedy RN [facility] RN Member Role: Primary Care Nurse Care Team Related Persons Name: ROMÁN PIERCE Address: [address] [place] [address] Name: AKOSUA PEREZ AND JERONIMO HERNANDEZ Address: [address] [place] [address]
--- OUTSIDE RECORDS SUMMARY | 2023-09-27 13:07 | XMS_ITS | Continuity of Care Document ---
Author Organization [facility] Address [address] [place] [address]- Care Team Providers Care Dust Brush Assembler Name Role Phone Cherelle Rivera MD, Mary Espinal Primary Care Physici an Encounter [facility] [place] Date(s): 04/23/23 - 05/23/23 [facility] [address] [place], [place] [address] Attending Physician: Jorge A Tony Admitting Physician: AdmtrJorge A Referring Physician: Admtr, ArLorene Allergies, Adverse Reactions, Alerts No Known Allergies [...] Team Personnel Name: Mary Rod MD Position: [facility] Outreach Member Role: PCP Address: Address: [address] [place] [address] [address] [place] [address]- Name: Yue Mazariegos RN Position: [facility] SN RN Member Role: Primary Care Nurse Care Team Related Persons Name: ROMÁN PIERCE Address: [address] [place] [address] Name: GUDELIA PEREZ Address: [address] [place] [address]
[2023-09-27] MEDS: Acetaminophen 325 MG TABLET 975 MG PO (13:14)
[2023-09-27 13:18] LABS: B Type Natriuretic Peptide 46 pg/mL (<100)
[2023-09-27 13:20] LABS: Alanine Aminotransferase 350 U/L (0-31); Albumin Level 3.8 g/dL (3.5-5.0); Alkaline Phosphatase 145 U/L (39-117); Anion Gap 13 (12-20); Aspartate Amino Transferase 466 U/L (5-31); Bilirubin Total 0.7 mg/dL (0.0-1.0); Blood Urea Nitrogen 16 mg/dL (9-16); Calcium 9.5 mg/dL (8.4-10.2); Carbon Dioxide 24 mmol/L (22-29); Chloride 110 mmol/L (96-108); Creatinine Clr Calc Pharmacy 54.2; Estimated Glomerular Filt Rate 59; Glucose Random 92 mg/dL (60-115); Magnesium 2.5 mg/dL (1.6-2.6); Potassium 5.6 mmol/L (3.3-5.1); Sodium 141 mmol/L (135-145); Total Protein 6.8 g/dL (6.5-8.0)
[2023-09-27 13:30] LABS: Troponin-I High Sensitivity 7.5 ng/L (<3.5-17.0)
[2023-09-27 14:54] VITALS: BP 134/69; PULSE 61; RESP 14; O2SAT 97
[2023-09-27] MEDS: Sodium Zirconium Cyclosilicate 10 GM POWD.PACK PO (14:54)
--- NOTE | 2023-09-27 15:02 | PC.NURSE ---
IV established, labs obtained and sent. patient medicated per the MAR, aware of need for repeat troponin. call norton remains within reach.
[2023-09-27 17:12] LABS: Anion Gap 13 (12-20); Blood Urea Nitrogen 17 mg/dL (9-16); Calcium 9.4 mg/dL (8.4-10.2); Carbon Dioxide 20 mmol/L (22-29); Chloride 110 mmol/L (96-108); Creatinine Clr Calc Pharmacy 58.7; Estimated Glomerular Filt Rate > 60; Glucose Random 75 mg/dL (60-115); Sodium 138 mmol/L (135-145)
[2023-09-27 17:20] LABS: Troponin-I High Sensitivity 9.2 ng/L (<3.5-17.0)
[2023-09-27 17:38] LABS: Influenza A PCR NEGATIVE (Negative); Influenza B PCR NEGATIVE (Negative); Resp Syncy Virus RNA Qual PCR NEGATIVE (Negative); SARS COV2 PCR INHOUSE NEGATIVE (Negative)
[2023-09-27] MEDS: Meclizine HCl 25 MG TABLET PO (18:14)
[2023-09-27 18:15] VITALS: BP 134/69; PULSE 61; RESP 16; TEMP 36.6; O2SAT 97
--- NOTE | 2023-09-28 11:41 | MHC.CM.PN ---
BILL RECEIVED FROM [facility] STATING THIS PT IS ACTIVE WITH THEM AND REQUESTING HER ED NOTE BE SENT TO THEM. DC NOTE SENT VIA [facility]
== END 2023-09-27 18:17 | disposition home or self-care (01) ==
PROVIDERS: Physician Assistant; Emergency Provider Student in an Organized Health Care Education/Training Program; PCP Internal Medicine
DX: R07.9 Chest pain, unspecified (principal); I10 Essential (primary) hypertension; E11.9 Type 2 diabetes mellitus without complications; J45.909 Unspecified asthma, uncomplicated; Z03.818 Encounter for observation for suspected exposure to other biological agents ruled out
CPT/HCPCS: 0241U; 36415; 70450; 71045; 80048; 80053; 83735; 83880; 84484; 85025; 85379; 85610; 93005; 99284; 99285

== ENCOUNTER 2023-09-30 09:07 | Outpatient (AMB) | payer OTHER, SELFPAY ==
--- NOTE | 2023-09-30 10:02 | MHC.OFFVIS ---
Vital Signs 09/30/23 10:14 Height 5 ft 5 in Weight 149 lb 11.102 oz BMI 24.9 BP 90/52 L Blood Pressure Location Rt brachial Position Sitting Pulse 74 Pulse Source Pulse Oximeter Pulse Oximetry (%) 97 Oxygen Delivery Method Room Air Intake Visit Reasons: oa on tramadol with shearer screen measurer and trimmer Intake Note: Patient last seen 04/07/23, presents today for follow up and test results. Reports having a heart attack. Seen at [facility], transferred to [facility] where she had heart surgery. Pt unable to provide accurate medication reconciliation. Client Technical Support Associate Required: Yes Client Technical Support Associate Language: Dispatcher Service Chief Name: Sean Edge290 Information Interpreted: non-clinical & clinical Accompanied by: Self / Same As Patient Allergies No Known Allergies [No Known Allergies*] Allergy (Verified 09/30/23 10:12) HPI Comments Details: Ms. Wang 72yoF returns for evaluation of her osteoarthritis and tramadol usage. The [employer] service was used to facilitate the visit. The patient has been on tramadol for a number of years for her osteoarthritis. Symptomatic regions include the left shoulder, right knee, and the lower back. She has received occasional corticosteroid injections from pain management that have been helpful for the back pain. Most of the back pain is in the left lumbar region with radiation to the left hip. That pain ih recent months has tended to radiate laterally and also into the left groin. It is worse with walking. She has a walker and a cane at home that she uses to get around. She is also on acetaminophen that she takes about 3 times a day. She continues to say she gets a fever in the afternoons if she does not take the Tylenol. She says the fever problem has been present for about 3 years. It is not clear whether her body temperature has been measured lately. Last UTI 4 months ago. She is on multiple medications for diabetes. She is also taking gabapentin at 600 mg 3 times a day. She is also on venlafaxine and at zolpidem. She relates that the left shoulder was operated on in the past but I do not find any scars in the shoulder region. She was told that the problem with the shoulder was a complication of her diabetes. She uses the tramadol 50 mg 4 times a day. It does not seem to cause any sedation. August 2023: Cardiac surgery - Stent and metal placed per patient [facility] Medical History (Updated 09/30/23 @ 10:47 by MONSE Vaughan) Elevated liver enzymes Myocardial infarction Asthma ANGIE (obstructive sleep apnea) Diabetes Esophageal dysmotilities Esophageal candidiasis Pneumonia Cystitis Recurrent UTI (urinary tract infection) Dysuria Vitamin D deficiency Hypothyroidism Osteoporosis B12 deficiency Iron deficiency anemia IBS (irritable bowel syndrome) Surgical History (Updated 09/30/23 @ 10:11 by HAMZAH Giron) H/O heart surgery Hx of gastric bypass History of esophagogastroduodenoscopy (EGD) Hx of colonoscopy History of arthroscopy of left shoulder Family History Father No problems noted. 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 Constitutional: Non-toxic appearing. No acute distress. Well-developed and well-nourished. HEENT: Normocephalic and atraumatic. External auditory canals without erythema or edema bilaterally. Dry mucous membranes. No pharyngeal erythema or exudates. Skin: Warm and dry. No rashes or lesions noted. Neck: Full and painless range of motion. No cervical lymphadenopathy. Cardio: Regular rate and rhythm. No murmurs, gallops, or rubs. No lower extremity edema. No JVD. Pulmonary: No respiratory distress. No accessory muscle usage. Gastrointestinal: Soft, nontender, and nondistended in all 4 quadrants. Normoactive bowel sounds in all 4 quadrants. Genitourinary: No CVA tenderness. Musculoskeletal: Normal range of motion in joints throughout the body. No deformity or other signs of injury. Neuro: Alert and oriented x4. Cranial nerves 2-12 grossly intact. No focal deficits appreciated. Assessment & Plan Assessment & Plan (1) Chronic left shoulder pain: Code(s): M25.512 - Pain in left shoulder; G89.29 - Other chronic pain Category: Medical (2) Medication monitoring encounter: Comment: Tramadol pain contract [id number]/2022 Code(s): Z51.81 - Encounter for therapeutic drug level monitoring Category: Medical (3) Left hip pain: Code(s): M25.552 - Pain in left hip Category: Medical (4) Lumbar spondylosis: Code(s): M47.816 - Spondylosis without myelopathy or radiculopathy, lumbar region Category: Medical (5) Elevated liver enzymes: Code(s): R74.8 - Abnormal levels of other serum enzymes Category: Medical Plan #OA/Multiple Joint pain: Ms Wang has had many years of pain mostly involving the lumbar spine where there is well documented lumbar osteoarthritis and degenerative disc disease. Interventions with pain management has been to some extent successful and she will follow as needed. She is still requiring the tramadol which she thinks is helpful. She seems to have no side effects with that and is compliant with the prescriptions so we will continue to prescribe. There are many tender points as well suggesting some underlying fibromyalgia. She continues on gabapentin and an antidepressant. She tries to do the physical therapy exercises that have been taught to her. We will continue to supply her with the prescriptions for the tramadol. #Elevated Liver Enzymes: The etiology of this is not clear. However, Tramadol is metabolized by the liver so I am concerned about toxicity at this point. The patient is not a good storyteller and cannot recount any relevant information concerning this. I will reach out to PCP and GI about this. A follow-up in 6 months seems reasonable. 20 minutes spent reviewing chart, evaluating patient and documenting Coding Level of Care Code Est Pt Level 3 (56249) Diagnoses Chronic left shoulder pain M25.512; G89.29 Medication monitoring encounter Z51.81 Left hip pain M25.552 Lumbar spondylosis M47.816 Elevated liver enzymes R74.8
[2023-09-30 10:14] VITALS: BP 90/52; PULSE 74; O2SAT 97; BMI 24.9
== END 2023-09-30 10:42 | disposition home or self-care (01) ==
PROVIDERS: PCP Internal Medicine; Visit Provider Nurse Practitioner Family
DX: M25.512 Pain in left shoulder (principal); G89.29 Other chronic pain; Z51.81 Encounter for therapeutic drug level monitoring; M25.552 Pain in left hip; M47.816 Spondylosis without myelopathy or radiculopathy, lumbar region; R74.8 Abnormal levels of other serum enzymes
CPT/HCPCS: 99213

== ENCOUNTER → 2023-09-30 09:07 | Outpatient (BNVA) | payer OTHER, SELFPAY | PROVIDERS: PCP Internal Medicine; Visit Provider Nurse Practitioner Family | DX: Z51.81 Encounter for therapeutic drug level monitoring (principal); F11.20 Opioid dependence, uncomplicated; M25.512 Pain in left shoulder; M25.552 Pain in left hip; M47.816 Spondylosis without myelopathy or radiculopathy, lumbar region; R74.8 Abnormal levels of other serum enzymes; G89.29 Other chronic pain | CPT/HCPCS: 99212 ==

== ENCOUNTER 2023-10-08 12:51 | Outpatient (REF) | payer OTHER, SELFPAY ==
[2023-10-08 14:34] LABS: B Type Natriuretic Peptide 59 pg/mL (<100)
[2023-10-08 15:16] LABS: Anion Gap 9 (12-20); Blood Urea Nitrogen 9 mg/dL (9-16); Calcium 9.2 mg/dL (8.4-10.2); Carbon Dioxide 25 mmol/L (22-29); Chloride 109 mmol/L (96-108); Estimated Glomerular Filt Rate 49; Glucose Random 208 mg/dL (60-115); Potassium 4.1 mmol/L (3.3-5.1); Sodium 139 mmol/L (135-145)
[2023-10-08 15:17] LABS: Anion Gap 8 (12-20); Blood Urea Nitrogen 9 mg/dL (9-16); Calcium 9.2 mg/dL (8.4-10.2); Carbon Dioxide 26 mmol/L (22-29); Chloride 109 mmol/L (96-108); Estimated Glomerular Filt Rate 49; Glucose Random 205 mg/dL (60-115); Potassium 3.4 mmol/L (3.3-5.1); Sodium 140 mmol/L (135-145)
== END 2023-10-08 12:52 | disposition home or self-care (01) ==
LOC: HO.LAB 12:51
PROVIDERS: Absent Provider Internal Medicine Cardiovascular Disease; PCP Internal Medicine; Visit Provider Internal Medicine
DX: I25.10 Atherosclerotic heart disease of native coronary artery without angina pectoris (principal); I10 Essential (primary) hypertension
CPT/HCPCS: 36415; 80048; 83880

== ENCOUNTER 2023-10-30 09:40 | Outpatient (REF) | payer OTHER, SELFPAY ==
--- NOTE | ~2023-10-30 | XR_ITS ---
EXAMINATION: XR CHEST CLINICAL INFORMATION: Dyspnea, recent KS, possible asthma exacerbation, rule out CHF. COMPARISON: 09/27/2023, 09/06/2023. TECHNIQUE: 3 views of the chest. FINDINGS: The lungs are well inflated. Heart size is normal. Dextroscoliosis of the thoracolumbar spine with multilevel degenerative changes. No gross pleural effusion. No focal consolidation to suggest pneumonia. Surgical clips in the upper abdomen. Mild degenerative changes in the thoracic spine. No new focal consolidation to suggest pneumonia. XR/XR chest 2V IMPRESSION: Well-inflated lungs. No evidence of pneumonia.
== END 2023-10-30 09:41 | disposition home or self-care (01) ==
LOC: HO.XRAY 09:40
PROVIDERS: PCP Internal Medicine; Visit Provider Student in an Organized Health Care Education/Training Program
DX: J45.41 Moderate persistent asthma with (acute) exacerbation (principal)
CPT/HCPCS: 71046

== ENCOUNTER 2023-12-07 08:22 | Outpatient (AMB) | payer OTHER, SELFPAY ==
--- NOTE | 2023-12-07 08:39 | MHC.OFFVIS ---
Vital Signs 12/07/23 08:42 Height 5 ft 5 in Weight 149 lb BMI 24.8 BP 112/62 Blood Pressure Location Lt brachial Position Sitting Respiration 14 Pulse 80 Pulse Source Pulse Oximeter Pulse Oximetry (%) 98 Oxygen Delivery Method Room Air Intake Visit Reasons: Low back pain Intake Note: [id number] [employer] Maintenance Technician Required: Yes Allergies No Known Allergies [No Known Allergies*] Allergy (Verified 12/07/23 08:43) Medication List - Last Reconciled 12/07/23 by Jesenia Terrell LPN acetaminophen 500 mg PO Q6-8H PRN albuterol sulfate 90 mcg/actuation (Ventolin HFA) 0 mcg inhalation DAILY amlodipine 10 mg PO QAM ascorbic acid (vitamin C) (Vitamin C) 500 mg PO BID aspirin 81 mg PO DAILY bisacodyl (Dulcolax (bisacodyl)) 15 mg (3 x 5 mg) PO BEDTIME 30 days blood sugar diagnostic As directed budesonide-formoterol 160-4.5 mcg/actuation (Symbicort) 2 puffs inhalation BID 30 days cholecalciferol (vitamin D3) 50 mcg PO DAILY 30 days clonazepam 1 mg PO TID PRN CPAP (CPAP Machine/Device) As directed CPAP (CPAP Machine/Device) As directed cyanocobalamin (vitamin B-12) 1,000 mcg PO DAILY dapagliflozin propanediol (Farxiga) 10 mg PO DAILY diclofenac sodium 1% 1 g topical BID dulaglutide 0.75 mg subcut QWEEK estradiol 0.01%(0.1mg/gram) 1 g vaginal 3XW famotidine 20 mg PO DAILY ferrous sulfate (iron) 325 mg PO DAILY folic acid 1 mg PO DAILY furosemide 20 mg PO DAILY gabapentin 600 mg PO TID ipratropium-albuterol 0.5 mg-3 mg(2.5 mg base)/3 mL 3 mL inhalation QID isosorbide mononitrate ER 60 mg PO DAILY lactulose 20 grams (30 mL) PO TID lancets As directed levothyroxine 125 mcg PO DAILY lidocaine 5% 1 patch topical DAILY 30 days linaclotide (Linzess) 290 mcg PO QAM tjfmsd-wwejedfa-kusjozy 24,000-76,000 -120,000 unit (Creon) 24,000 caps PO BID losartan 25 mg PO DAILY meclizine 12.5 mg PO TID PRN metformin ER 500 mg PO BID methenamine hippurate 1 g PO DAILY metoclopramide HCl 10 mg PO QID metoprolol succinate ER 50 mg PO DAILY montelukast 10 mg PO BEDTIME phtikgtyfwzi-cbyz-ofwgv acid 18-400 mg-mcg (Certavite-Antioxidant) 1 tab PO DAILY mupirocin 2% 1 appl topical TID nitroglycerin 0.4 mg sublingual DAILY pantoprazole 40 mg PO BID rosuvastatin 40 mg PO DAILY sacubitril-valsartan 24-26 mg (Entresto) 1 tab PO BID simethicone 180 mg PO QID ticagrelor (Brilinta) 90 mg PO BID topiramate 50 mg PO BEDTIME tramadol 50 mg PO QID PRN venlafaxine ER 75 mg PO DAILY zolpidem 1 tab PO BEDTIME HPI HPI Low back pain: Details: 73-year-old female who presents today to the office for follow-up on low back pain. A certified roughener was present during the visit. The patient reports more than 75 % relief following the last diagnostic medial branch block procedure. She then did not return for follow-up as she was doing well but has been experiencing worsening pain over the past few weeks. The pain is described in the axial low back that is now starting to travel towards the upper part of the lower back. It is similar in nature to her previous pain. She has been having difficulty with her daily activities. She previously had a bone scan that was unremarkable for metastatic disease. She has a scheduled appointment with the oncologist in late December; I am not sure if there is concern for some kind of metastatic bone process. She states she had a visit with an oncologist, who diagnosed her with anemia. She has a history of osteoporosis and never had any treatment. Past procedures 08/20/23: Lumbar Medial Branch Block, Bilateral L3, L4 medial branches and L5 Dorsal Ramus (2 levels, 3 nerves): >75% relief. 01/21/23: Piriformis Muscle Injection, Left: 80% relief. 10/22/22; Minimally Invasive Lumbar Decompression, Bilateral, L5/S1: 70% relief. [facility] Medical History (Updated 09/30/23 @ 10:47 by LUIS Vaughan-RASHID) Elevated liver enzymes Myocardial infarction Asthma ANGIE (obstructive sleep apnea) Diabetes Esophageal dysmotilities Esophageal candidiasis Pneumonia Cystitis Recurrent UTI (urinary tract infection) Dysuria Vitamin D deficiency Hypothyroidism Osteoporosis B12 deficiency Iron deficiency anemia IBS (irritable bowel syndrome) Surgical History (Updated 09/30/23 @ 10:11 by HAMZAH Giron) H/O heart surgery Hx of gastric bypass History of esophagogastroduodenoscopy (EGD) Hx of colonoscopy History of arthroscopy of left shoulder Family History Father No problems noted. 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 Alert and oriented. Mood and affect appropriate. Follows and participates in conversation appropriately. Respiratory effort is unlabored. Able to transition from sit to stand unassisted. Ambulates with bilaterally normal heel strike and toe off. Results Reviewed Results Reviewed: No imaging is available for review. Assessment & Plan Assessment & Plan (1) Lumbar spondylosis: Code(s): M47.816 - Spondylosis without myelopathy or radiculopathy, lumbar region Category: Medical Plan We will schedule her for a second round of Lumbar Medial Branch Block, Bilateral L3, L4 medial branches and L5 Dorsal Ramus (2 levels, 3 nerves) in consideration of potential lumbar medial branch radiofrequency ablation. Discussed the risks and benefits of the procedure with the patient in detail. All questions were answered. The patient is on board with the plan. I also counseled her to keep her appointment with oncology. She is not aware of any ongoing malignant process, and I cannot see any oncology notes, so I recommended that she keep the appointment so we could make sure that there is no malignant process in her spine that might be a source of her pain symptoms. I also recommended that she discuss treatment for her osteoporosis at her next appointment with a interlibrary loan services librarian. Her T score in 2020 was notable for severe osteoporosis, which was never treated. The patient expressed understanding of all of these points. Justification for interventional therapy: ? Patient with average pain > 6/10 ? Patient has exhausted conservative therapy ? Previous injection provided >75% relief . Patient has a good understanding of their pain condition and has appropriate mental and social support Scribed for Dr. Hooks by Petar Foley, medical communication specialist, on 12/07/2023. I, Dr. Hooks, have personally reviewed and agree with the information entered by the scribe. Coding Level of Care Code Est Pt Level 4 (35391) Diagnoses Lumbar spondylosis M47.816
[2023-12-07 08:42] VITALS: BP 112/62; PULSE 80; RESP 14; O2SAT 98; BMI 24.8
== END 2023-12-07 09:05 | disposition home or self-care (01) ==
PROVIDERS: PCP Internal Medicine; Visit Provider Internal Medicine
DX: M47.816 Spondylosis without myelopathy or radiculopathy, lumbar region (principal)
CPT/HCPCS: 99214

== ENCOUNTER → 2023-12-07 08:22 | Outpatient (BNVA) | payer OTHER, SELFPAY | PROVIDERS: PCP Internal Medicine; Visit Provider Internal Medicine | DX: M47.816 Spondylosis without myelopathy or radiculopathy, lumbar region (principal) | CPT/HCPCS: 99212 ==

== ENCOUNTER 2023-12-24 08:35 | Outpatient (REF) | payer OTHER, SELFPAY ==
[2023-12-24 12:08] LABS: Alanine Aminotransferase 131 U/L (0-31); Albumin Level 3.7 g/dL (3.5-5.0); Alkaline Phosphatase 85 U/L (39-117); Anion Gap 8 (12-20); Aspartate Amino Transferase 205 U/L (5-31); Bilirubin Direct 0.2 mg/dL (0.0-0.5); Bilirubin Total 0.5 mg/dL (0.0-1.0); Blood Urea Nitrogen 12 mg/dL (9-16); Calcium 9.6 mg/dL (8.4-10.2); Carbon Dioxide 26 mmol/L (22-29); Chloride 113 mmol/L (96-108); Estimated Glomerular Filt Rate 49; Glucose Random 154 mg/dL (60-115); Potassium 5.5 mmol/L (3.3-5.1); Sodium 141 mmol/L (135-145); Total Protein 6.4 g/dL (6.5-8.0)
[2023-12-24 12:24] LABS: B Type Natriuretic Peptide 90 pg/mL (<100)
[2023-12-25 12:43] LABS: Alpha Fetoprotein 3.8 ng/mL
== END 2023-12-24 08:36 | disposition home or self-care (01) ==
LOC: HO.HHCL 08:35
PROVIDERS: Visit Provider Nurse Practitioner
DX: K75.81 Nonalcoholic steatohepatitis (NASH) (principal)
CPT/HCPCS: 36415; 80048; 80076; 82105; 83880

== ENCOUNTER 2023-12-31 06:29 | Outpatient (REF) | payer OTHER, SELFPAY ==
--- NOTE | ~2023-12-31 | FL_ITS ---
EXAMINATION: XR FLUOROSCOPY WITH IMAGES CLINICAL INFORMATION: Lumbar spondylosis. COMPARISON: None available. TECHNIQUE: Fluoroscopy Supervised By: Dr. Jevon Hooks. Fluoroscopy Time: 0.2 minutes. Cumulative Dose: 1.57 mGy. DAP: 0.0185 Gy-cm2. Images: 2. FINDINGS: Intraoperative fluoroscopy and spot films were performed during a procedure in the OR. Transforaminal epidural needles are present at 2 consecutive levels bilaterally in the lumbar spine. Precise levels can not be ascertained secondary to marked coning of the images with lack of appropriate landmarks. Please correlate with Dr. Jevon Hooks' report for complete details as well as levels treated. FL/FL guidance in treatment room IMPRESSION: Intraoperative fluoroscopy and spot films were obtained. Please see Dr. Jevon Hooks' report for complete details.
== END 2023-12-31 06:30 | disposition home or self-care (01) ==
LOC: CF 06:29
PROVIDERS: Visit Provider Internal Medicine
DX: M47.816 Spondylosis without myelopathy or radiculopathy, lumbar region (principal)
CPT/HCPCS: 64493; 64494; J2795; Q9967

== ENCOUNTER 2023-12-31 13:44 | Outpatient (AMB) | payer OTHER, SELFPAY ==
[2023-12-31 13:45] VITALS: BP 89/64; PULSE 70; RESP 14; O2SAT 98; BMI 20.5
--- NOTE | 2023-12-31 13:45 | MHC.OFFVIS ---
Vital Signs 12/31/23 13:45 12/31/23 14:54 Height 5 ft 5 in Weight 123 lb BMI 20.5 BP 89/64 L 120/58 L Blood Pressure Location Lt brachial Lt brachial Position Sitting Sitting Respiration 14 14 Pulse 70 72 Pulse Source Pulse Oximeter Pulse Oximeter Pulse Oximetry (%) 98 98 Oxygen Delivery Method Room Air Room Air Comment Pre-Op Post-Op Intake Visit Reasons: repeat Chalo Dx L3-L4-DR-L5 MBB/ativan Cooker Sulfate Required: Yes Cooker Sulfate Language: Luxembourger Accompanied by: Self / Same As Patient Allergies No Known Allergies [No Known Allergies*] Allergy (Verified 12/31/23 13:46) HPI HPI repeat Chalo Dx L3-L4-DR-L5 MBB/ativan: Details: Patient presents for scheduled procedure. Denies any recent cough, cold, infection, fever or other significant changes in medical history since last office visit. [facility] Medical History (Updated 09/30/23 @ 10:47 by LUIS Vaughan-RASHID) Elevated liver enzymes Myocardial infarction Asthma ANGIE (obstructive sleep apnea) Diabetes Esophageal dysmotilities Esophageal candidiasis Pneumonia Cystitis Recurrent UTI (urinary tract infection) Dysuria Vitamin D deficiency Hypothyroidism Osteoporosis B12 deficiency Iron deficiency anemia IBS (irritable bowel syndrome) Surgical History (Updated 09/30/23 @ 10:11 by HAMZAH Giron) H/O heart surgery Hx of gastric bypass History of esophagogastroduodenoscopy (EGD) Hx of colonoscopy History of arthroscopy of left shoulder Family History Father No problems noted. 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 Patient Tobacco Use Status: Never used Tobacco service: No Current occupational status: disabled Physical Exam Vital Signs: Last Vital Signs Pulse 70 12/31/23 13:45 Resp 14 12/31/23 13:45 BP 89/64 L 12/31/23 13:45 Pulse Ox 98 12/31/23 13:45 Oxygen Delivery Method Room Air 12/31/23 13:45 BMI result Body Mass Index 20.5 Office Procedures Lumbar/Sacral Facet Inj Details: Lumbar Medial Branch Block, Bilateral L3, L4 medial branches and L5 Dorsal Ramus (2 levels, 3 nerves) After obtaining written consent, pre-procedure blood pressure and pulse were recorded and are in the nursing record for review. The patient was placed in a prone position. The respective lumbosacral area was prepped with chloraprep and draped in sterile fashion. The skin over the target medial branch nerves was anesthetized with 0.5% lidocaine. A 22 gauge 3.5 inch needle was inserted into the target medial branch nerve under fluoroscopic guidance. No paresthesias were elicited with needle placement and aspiration was negative for blood and CSF. Next, 0.2cc of omnipaque 180 was injected to verify positioning. Next 0.5 ml 0.5% ropivicaine was injected (0.5cc total per level). The identical procedure was performed at the remaining levels. The skin was cleansed and a sterile bandage was applied. Following the procedure the patient's vital signs were stable. The patient tolerated the procedure well and no complications were encountered. Following the procedure the patient's vital signs were stable. The patient was discharged home in good condition with post-procedural instructions. Time Out: Immediately prior to the procedure, the following was verbally confirmed that there is a signed consent form and that the correct patient, planned procedure, site and side are consistent with documentation and that necessary equipment and/or blood products are available prior to the start of the case. Complications: none EBL: <5 cc 63283 - with Fluoroscopy 84877 - second level, with Fluoroscopy (Bilateral) Procedure code (CPT) selection complete Assessment & Plan Assessment & Plan (1) Lumbar spondylosis: Code(s): M47.816 - Spondylosis without myelopathy or radiculopathy, lumbar region Category: Medical Plan Patient is status post bilateral diagnostic lumbar medial branch blocks. Patient tolerated procedure well and was discharged home in stable condition with discharge instructions. All questions were answered. We will follow-up via telephone or in clinic to assess response to therapy. A follow-up appointment was made during today's visit. Coding Level of Care Code Procedure Only Diagnoses Lumbar spondylosis M47.816 CPT Codes Facet Injection-Lumbar/Sacral - CPT: 78325 - with Fluoroscopy ([id number]) Facet Injection-Lumbar/Sacral - CPT: 62403 - second level, with Fluoroscopy ([id number])
--- OUTSIDE RECORDS SUMMARY | 2023-12-31 13:45 | XMS_ITS | Continuity of Care Document ---
Author Organization [facility] er Address [address] [place] [address]- Care Team Providers Care Online Banking Specialist Name Role Phone Cherelle Rivera MD, Mary Espinal Primary Care Physici an Encounter [facility] Date(s): 09/10/23 - 10/10/[address] [address]- Allergies, Adverse Reactions, Alerts No Known Allergies Medications 20/30 knee high compression stockings with zipper 20/30 knee high compression stockings with zipper, See Instructions, # 4 pair, Refills 4, Tot. Refills 4, Maintenance, Apply daily in the am and remove at bedtime, 03/26/17 9:37:30, Compound Start Date: 03/26/17 Status: Ordered albuterol-ipratropium 3 mg-0.5 mg/3 ml inhalation solution [...] 09/09/23 14:59:00 EDT, Route to Pharmacy Electronically, [facility], Partial fill upon patient request if [...] 3 Refills, Maintenance, 09/09/23 14:59:00 EDT, Tablet, [facility], Partial fill upon patient request if [...] drug. Start Date: 09/06/23 Status: Ordered gabapentin 600 mg oral tablet 1 tablet [...] Maintenance, 09/09/23 14:59:00 EDT,Route to Pharmacy Electronically, [facility], Partial fill upon patient request if the prescription is for a schedule II opioid drug., 15... Start Date: 09/09/23 Status: Ordered metformin 500 mg oral tablet 1 tablet = 500 mg, By Mouth, 2 times a day, 0 Refills, Maintenance Start Date: 03/02/12 Status: Ordered Metoprolol Succinate ER 50 mg oral tablet, extended release 1 tablet = 50 mg, By Mouth, Daily, # 30 tablet, 0 Refills, Maintenance, 09/09/23 15:00:00 EDT, XL Tablet, [facility], Partial fill upon patient request [...] 0 Refills, Maintenance, 09/09/23 15:15:00 EDT, Tablet, [facility], Partial... Start Date: 09/09/23 Status: Ordered [...] 0 Refills, Maintenance, 09/09/23 15:00:00 EDT, Tablet, [facility], Partial fill upon patient request if the prescription is for a schedule II opioid drug., 152.4, cm, 04/23/23 13... Start Date: 09/09/23 Status: Ordered ticagrelor 90 mg oral tablet 1 tablet = 90 mg, By Mouth, 2 times a day, # 60 tablet, 0 Refills, Maintenance, 09/09/23 14:59:00 EDT, Tablet, [facility], Partial fill upon patient request if the prescription is for aschedule II opioid drug., 152.4, cm, 04/23/23 13:33... Start Date: 09/09/23 Status: Ordered topiramate [...] Team Personnel Name: Mary Rod MD Position: [facility] Outreach Member Role: PCP Address: Address: [address] [place] [address] [address] [place] [address]- Name: Yue Mazariegos RN Position: [facility] RN Member Role: Primary Care Nurse Name: Mona Bello RN Position: S RN Member Role: Primary Care Nurse Care Team Related Persons Name: KARI ROMÁN Address: home [address] [place] [address] Name: AKOSUA PEREZ AND JERONIMO CORDELLCANELO Address: home [address] [place] [address]
--- OUTSIDE RECORDS SUMMARY | 2023-12-31 13:46 | XMS_ITS | Continuity of Care Document ---
Author Organization [facility] ter Address [address] [place] [address]- Care Team Providers Care Sizing Machine Operator Name Role Phone Cherelle Rivera MD, Mary Espinal Primary Care Physici an Encounter [facility] Date(s): 09/08/23 - 10/08/[address] [address]- Attending Physician: Not on Staff, Attending MD Admitting Physician: Not on Staff, Admitting MD Referring Physician: Not on Staff, Referring MD [...] 09/09/23 14:59:00 EDT, Route to Pharmacy Electronically, [facility], Partial fill upon patient [...] 3 Refills, Maintenance, 09/09/23 14:59:00 EDT, Tablet, [facility], Partial fill upon patient request [...] Maintenance, 09/09/23 14:59:00 EDT,Route to Pharmacy Electronically, [facility], Partial fill upon patient [...] Refills, Maintenance, 09/09/23 15:00:00 EDT, XL Tablet, [facility], Partial fill upon patient [...] 0 Refills, Maintenance, 09/09/23 15:15:00 EDT, Tablet, [facility], Partial... Start Date: 09/09/23 [...] 0 Refills, Maintenance, 09/09/23 15:00:00 EDT, Tablet, [facility], Partial fill upon patient request if the prescription is for a schedule II opioid drug., 152.4, cm, 04/23/23 13... Start Date: 09/09/23 Status: Ordered ticagrelor 90 mg oral tablet 1 tablet = 90 mg, By Mouth, 2 times a day, # 60 tablet, 0 Refills, Maintenance, 09/09/23 14:59:00 EDT, Tablet, [facility], Partial fill upon patient [...] Team Personnel Name: Mary Rod MD Position: [facility] Outreach Member Role: PCP Address: Address: [address] [place] [address] [address] [place] [address]- Name: Yue Mazariegos RN Position: [facility] RN Member Role: Primary Care Nurse Name: Mona Bello RN Position: [facility] RN Member Role: Primary Care Nurse Care Team Related Persons Name: ROMÁN PIERCE Address: home [address] [place] [address] Name: AKOSUA PEREZ AND JERONIMO HERNANDEZ Address: home [address] [place] [address]
--- OUTSIDE RECORDS SUMMARY | 2023-12-31 13:46 | XMS_ITS | Continuity of Care Document ---
Author Organization [facility] Address [address] [place] [address]- Care Team Providers Care Director [employer]gen [employer] Engineering Name Role Phone Cherelle Rivera MD, Mary Espianl Primary Care Physici an Encounter 09/10/23 - 10/16/23 [facility] [address] [place] [address]- Discharge Disposition: GOALS MET Allergies, Adverse Reactions, Alerts No Known Allergies [...] 09/09/23 14:59:00 EDT, Route to Pharmacy Electronically, [facility], Partial fill upon [...] 3 Refills, Maintenance, 09/09/23 14:59:00 EDT, Tablet, [facility], Partial fill upon patient request if [...] Maintenance, 09/09/23 14:59:00 EDT,Route to Pharmacy Electronically, [facility], Partial fill upon [...] Refills, Maintenance, 09/09/23 15:00:00 EDT, XL Tablet, [facility], Partial fill upon [...] 0 Refills, Maintenance, 09/09/23 15:15:00 EDT, Tablet, [facility], Partial... Start Date: [...] 0 Refills, Maintenance, 09/09/23 15:00:00 EDT, Tablet, [facility], Partial fill upon patient request if the prescription is for a schedule II opioid drug., 152.4, cm, 04/23/23 13... Start Date: 09/09/23 Status: Ordered ticagrelor 90 mg oral tablet 1 tablet = 90 mg, By Mouth, 2 times a day, # 60 tablet, 0 Refills, Maintenance, 09/09/23 14:59:00 EDT, Tablet, [facility], Partial fill upon [...] Team Personnel Name: Mary Rod MD Position: [facility] Outreach Member Role: PCP Address: Address: [address] [place] [address] [address] [place] [address]- Name: Yue Mazariegos RN Position: [facility] SN RN Member Role: Primary Care Nurse Name: Mona Bello RN Position: S RN Member Role: Primary Care Nurse Care Team Related Persons Name: ROMÁN PIERCE Address: home [address] [place] [address] Name: CONSTANTINO PEREZ TUCHRIS HERNANDEZ Address: home [address] [place] [address]
--- OUTSIDE RECORDS SUMMARY | 2023-12-31 13:46 | XMS_ITS | Continuity of Care Document ---
Author Organization [facility] Address [address] [place] [address]- Care Team Providers Care Fitting Room Associate Name Role Phone Cherelle Rivera MD, Mary Espinal Primary Care Physici an Encounter [facility] Date(s): 09/10/23 - 10/10/[address] [address]- Allergies, Adverse Reactions, Alerts No Known Allergies [...] 09/09/23 14:59:00 EDT, Route to Pharmacy Electronically, [facility], Partial fill upon patient request if [...] 3 Refills, Maintenance, 09/09/23 14:59:00 EDT, Tablet, [facility], Partial fill upon patient request if [...] Maintenance, 09/09/23 14:59:00 EDT,Route to Pharmacy Electronically, [facility], Partial fill upon patient [...] Refills, Maintenance, 09/09/23 15:00:00 EDT, XL Tablet, [facility], Partial fill upon patient [...] 0 Refills, Maintenance, 09/09/23 15:15:00 EDT, Tablet, [facility], Partial... Start Date: 09/09/23 [...] 0 Refills, Maintenance, 09/09/23 15:00:00 EDT, Tablet, [facility], Partial fill upon patient request if the prescription is for a schedule II opioid drug., 152.4, cm, 04/23/23 13... Start Date: 09/09/23 Status: Ordered ticagrelor 90 mg oral tablet 1 tablet = 90 mg, By Mouth, 2 times a day, # 60 tablet, 0 Refills, Maintenance, 09/09/23 14:59:00 EDT, Tablet, [facility], Partial fill upon patient [...] Team Personnel Name: Mary Rod MD Position: [facility] Outreach Member Role: PCP Address: Address: [address] [place] [address] [address] [place] [address]- Name: Yue Mazariegos RN Position: [facility] RN Member Role: Primary Care Nurse Name: Mona Bello RN Position: S RN Member Role: Primary Care Nurse Care Team Related Persons Name: KARI ROMÁN Address: home [address] [place] [address] Name: AKOSUA PEREZ AND JERONIMO CORDELLCANELO Address: home [address] [place] [address]
[2023-12-31 14:54] VITALS: BP 120/58; PULSE 72; RESP 14; O2SAT 98
== END 2023-12-31 14:51 | disposition home or self-care (01) ==
LOC: HO.PMCPRC 13:44
PROVIDERS: PCP Internal Medicine; Visit Provider Internal Medicine
DX: M47.816 Spondylosis without myelopathy or radiculopathy, lumbar region (principal)
CPT/HCPCS: 64493; 64494

== ENCOUNTER 2024-01-11 08:36 | Outpatient (AMB) | payer OTHER, SELFPAY ==
--- NOTE | 2024-01-11 08:42 | MHC.OFFVIS ---
Vital Signs 01/11/24 08:44 Height 5 ft 5 in Weight 123 lb BMI 20.5 BP 100/48 L Blood Pressure Location Lt brachial Position Sitting Respiration 14 Pulse 81 Pulse Source Pulse Oximeter Pulse Oximetry (%) 98 Oxygen Delivery Method Room Air Intake Visit Reasons: s/p repeat Chalo Dx L3-L4-DR-L5 MBB Director Of Resource Development Required: Yes Director Of Resource Development Name: [id number] Ninet Allergies No Known Allergies [No Known Allergies*] Allergy (Verified 01/11/24 08:47) Medication List - Last Reconciled 01/11/24 by Jesenia Terrell LPN acetaminophen 500 mg PO Q6-8H PRN albuterol sulfate 90 mcg/actuation (Ventolin HFA) 0 mcg inhalation DAILY amlodipine 10 mg PO QAM ascorbic acid (vitamin C) (Vitamin C) 500 mg PO BID aspirin 81 mg PO DAILY bisacodyl (Dulcolax (bisacodyl)) 15 mg (3 x 5 mg) PO BEDTIME 30 days blood sugar diagnostic As directed budesonide-formoterol 160-4.5 mcg/actuation (Symbicort) 2 puffs inhalation BID 30 days cholecalciferol (vitamin D3) 50 mcg PO DAILY 30 days clonazepam 1 mg PO TID PRN CPAP (CPAP Machine/Device) As directed CPAP (CPAP Machine/Device) As directed cyanocobalamin (vitamin B-12) 1,000 mcg PO DAILY dapagliflozin propanediol (Farxiga) 10 mg PO DAILY diclofenac sodium 1% 1 g topical BID dulaglutide 0.75 mg subcut QWEEK estradiol 0.01%(0.1mg/gram) 1 g vaginal 3XW famotidine 20 mg PO DAILY ferrous sulfate (iron) 325 mg PO DAILY folic acid 1 mg PO DAILY furosemide 20 mg PO DAILY gabapentin 600 mg PO TID ipratropium-albuterol 0.5 mg-3 mg(2.5 mg base)/3 mL 3 mL inhalation QID isosorbide mononitrate ER 60 mg PO DAILY lactulose 20 grams (30 mL) PO TID lancets As directed levothyroxine 125 mcg PO DAILY lidocaine 5% 1 patch topical DAILY 30 days linaclotide (Linzess) 290 mcg PO QAM loplel-lcyjvbrq-cjrelva 24,000-76,000 -120,000 unit (Creon) 24,000 caps PO BID lorazepam (Ativan) 1 mg PO ONCE losartan 25 mg PO DAILY meclizine 12.5 mg PO TID PRN metformin ER 500 mg PO BID methenamine hippurate 1 g PO DAILY metoclopramide HCl 10 mg PO QID metoprolol succinate ER 50 mg PO DAILY montelukast 10 mg PO BEDTIME svrdbhqajpde-yhjw-uloze acid 18-400 mg-mcg (Certavite-Antioxidant) 1 tab PO DAILY mupirocin 2% 1 appl topical TID nitroglycerin 0.4 mg sublingual DAILY pantoprazole 40 mg PO BID rosuvastatin 40 mg PO DAILY sacubitril-valsartan 24-26 mg (Entresto) 1 tab PO BID simethicone 180 mg PO QID ticagrelor (Brilinta) 90 mg PO BID topiramate 50 mg PO BEDTIME tramadol 50 mg PO QID PRN venlafaxine ER 75 mg PO DAILY zolpidem 1 tab PO BEDTIME HPI HPI s/p repeat Chalo Dx L3-L4-DR-L5 MBB: Details: 73-year-old female who presents today to the office for a status post repeat bilateral diagnostic L3-L4-L5 MBB The patient reports 80% relief following the procedure that is ongoing. She has similar pain relief as she had from the previous injection. Her left side pain is worse compared to the right side. She is amenable to proceed with radiofrequency ablation for senior care relief. She reports pain and pressure in her left leg. She has limited weight bearing on the left leg. Past procedures 12/31/23: Lumbar Medial Branch Block, Bilateral L3, L4 medial branches and L5 Dorsal Ramus (2 levels, 3 nerves): 80% relief. 08/20/23: Lumbar Medial Branch Block, Bilateral L3, L4 medial branches and L5 Dorsal Ramus (2 levels, 3 nerves): >75% relief. 01/21/23: Piriformis Muscle Injection, Left: 80% relief. 10/22/22; Minimally Invasive Lumbar Decompression, Bilateral, L5/S1: 70% relief. [facility] Medical History (Updated 09/30/23 @ 10:47 by MONSE Vaughan) Elevated liver enzymes Myocardial infarction Asthma ANGIE (obstructive sleep apnea) Diabetes Esophageal dysmotilities Esophageal candidiasis Pneumonia Cystitis Recurrent UTI (urinary tract infection) Dysuria Vitamin D deficiency Hypothyroidism Osteoporosis B12 deficiency Iron deficiency anemia IBS (irritable bowel syndrome) Surgical History (Updated 09/30/23 @ 10:11 by HAMZAH Giron) H/O heart surgery Hx of gastric bypass History of esophagogastroduodenoscopy (EGD) Hx of colonoscopy History of arthroscopy of left shoulder Family History Father No problems noted. 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 Alert and oriented. Mood and affect appropriate. Follows and participates in conversation appropriately. Respiratory effort is unlabored. Able to transition from sit to stand unassisted. Ambulates with bilaterally normal heel strike and toe off. Results Reviewed Results Reviewed: No imaging is available for review. Assessment & Plan Assessment & Plan (1) Lumbar spondylosis: Code(s): M47.816 - Spondylosis without myelopathy or radiculopathy, lumbar region Category: Medical Plan We will schedule her for a L3-L4 medial branch and L5-DR radiofrequency ablation. Discussed the risks and benefits of the procedure with the patient in detail. All questions were answered. The patient is on board with the plan. Justification for interventional therapy: ? Patient with average pain > 6/10 ? Patient has exhausted conservative therapy ? Patient unable to tolerate physical therapy due to pain. ? Previous diagnostic injection provided 80% relief. . Patient has a good understanding of their pain condition and has appropriate mental and social support Scribed for Dr. Hooks by Petar Foley, medical director, on 01/11/2024. I, Dr. Hooks, have personally reviewed and agree with the information entered by the scribe. Coding Level of Care Code Est Pt Level 3 (77183) Diagnoses Lumbar spondylosis M47.816
[2024-01-11 08:44] VITALS: BP 100/48; PULSE 81; RESP 14; O2SAT 98; BMI 20.5
== END 2024-01-11 09:04 | disposition home or self-care (01) ==
LOC: HO.PMC 08:36
PROVIDERS: PCP Internal Medicine; Visit Provider Internal Medicine
DX: M47.816 Spondylosis without myelopathy or radiculopathy, lumbar region (principal)
CPT/HCPCS: 99213

== ENCOUNTER → 2024-01-11 08:36 | Outpatient (BNVA) | payer OTHER, SELFPAY | PROVIDERS: PCP Internal Medicine; Visit Provider Internal Medicine | DX: M47.816 Spondylosis without myelopathy or radiculopathy, lumbar region (principal) | CPT/HCPCS: 99212 ==

== ENCOUNTER 2024-02-17 12:16 | Outpatient (REF) | payer OTHER, SELFPAY ==
[2024-02-17 14:08] LABS: TSH reflex Free T4 8.39 uIU/mL (0.32-4.0)
[2024-02-17 14:51] LABS: Free T4 (Free Thyroxine) 0.55 ng/dL (0.71-1.85)
== END 2024-02-17 12:17 | disposition home or self-care (01) ==
LOC: HO.HHCL 12:16
PROVIDERS: Visit Provider Internal Medicine
DX: E03.9 Hypothyroidism, unspecified (principal)
CPT/HCPCS: 36415; 84439; 84443

== ENCOUNTER 2024-03-07 06:56 | Outpatient (REF) | payer OTHER, SELFPAY ==
[2024-03-07 08:27] LABS: TSH reflex Free T4 8.87 uIU/mL (0.32-4.0)
[2024-03-07 09:20] LABS: Free T4 (Free Thyroxine) 0.97 ng/dL (0.71-1.85)
== END 2024-03-07 06:57 | disposition home or self-care (01) ==
LOC: HO.LAB 06:56
PROVIDERS: PCP Internal Medicine; Visit Provider Family Medicine
DX: E03.9 Hypothyroidism, unspecified (principal)
CPT/HCPCS: 36415; 84439; 84443

== ENCOUNTER → 2024-03-21 08:19 | Outpatient (BNVA) | payer OTHER, SELFPAY | PROVIDERS: PCP Internal Medicine; Visit Provider Internal Medicine ==

== ENCOUNTER 2024-03-24 12:54 | Outpatient (AMB) | payer OTHER, SELFPAY ==
--- NOTE | 2024-03-24 12:56 | MHC.OFFVIS ---
Vital Signs 03/24/24 13:17 Height 5 ft Weight 149 lb 14.629 oz BMI 29.3 BP 112/55 L Blood Pressure Location Lt brachial Position Sitting Pulse 74 Intake Visit Reasons: Follow up lab results r/s from 03/16 Intake Note: Hayley presents to in office follow up of abdominal pain. CC: Pt c/p constipation, epigastric pain, gain weight, and nausea sometimes. She also c/o bruising on different parts of her body. 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 HE EGD 09/2019 Esophagus: Tortuous esophagus with increased tertiary contractions without stricture or ring. GE junction at 34 cms. No esophagitis or Car[place]quillo s. Stomach: Maurice en Y gastric bypass status. Gastric remnant from 34 to 36 cms. Normal anastomosis without ulcers. Mild gastric erythema. Biopsies were obtained. BARIUM SWALLOW 09/2020 IMPRESSION: 1. No aspiration or laryngeal penetration. 2. See speech pathologist report for further assessment and recommendation. Code(s): R13.10 - Dysphagia, unspecified (4) VAZQUEZ (nonalcoholic steatohepatitis): Comment: HER liver enzymes are not terribly deranged this can be monitored by her primary care provider at 6 month intervals and she can be return to our service for surveillance if the transaminases become greater than twice the upper limit of normal BASELINE LABS 03/13/22 Plt Count 258 Estimated GFR > 60 Ferritin 43 Total Bilirubin 0.8 AST 179 H ALT 108 H Alkaline Phosphatase 106 D 04/16/22 Plt Count 267 Hemoglobin A1c % 6.2 Ferritin 21 Total Bilirubin 0.5 GGT 149 H AST 71 H ALT 58 H Anti-Mitochondrial Ab NEGATIVE Anti-Smooth Muscle Ab <20 Hepatitis A IgM Ab Nonreactive Hep Bs Antigen Negative Hep Bs Antibody NONREACTIVE Hep B Core Total Ab Nonreactive Hepatitis C Ab (EIA) Nonreactive HIV 1&2 Ab/P24 Ag 4thGn Nonreactive She does not drink ETOH ULTRASOUND THE ABDOMEN WITH ELASTOGRAPHY (F0-F1) Laboratory Tests 07/09/23 09:41 Total Bilirubin 0.5 AST 35 H ALT 26 Alkaline Phosphatase 69 ULTRASOUND OF THE ABDOMEN 02/19/23 IMPRESSION: 1. There is generalized increase in hepatic echotexture, consistent with fatty infiltration or hepatocellular disease. Please correlate clinically. No focal hepatic mass or intrahepatic biliary dilatation is seen. 2. The gallbladder is surgically absent. 3. Technically limited ultrasound examination of the pancreas and abdominal great vessels. Code(s): K75.81 - Nonalcoholic steatohepatitis (VAZQUEZ) Plan [place] #[employer] [employer] She expresses concern that she needs a repeat colonoscopy, she thought she had a hx of polyps, but she has not had any scope that were not at this facility and I research back to 2011 and she has never had any colon polyps. She has had some gastric polyps biopsied in the past so I think this has confused her. The only family member who had polyps was a cousin. I advise her that she is not due until 2028 - I will send a note to her PCP who though that the pt was due but her last was in 2019. She continues on her pantoprazole bid, simethicone, LInzess and bisacodyl. She also takes reglan qidachs. She just had a back injection, she has not yet felt relief but this could take some time. WE REVIEW THE LABS AND SINCE HER liver enzymes are not terribly deranged this can be monitored by her primary care provider at 6 month intervals and she can be return to our service for surveillance if the transaminases become greater than twice the upper limit of normal. ROV 6 mos. The lactulose along with her other medications is now controlling her CIC well. TODAY'S VISIT [place] #Natalee and Marta Armando She continues on her pantoprazole bid, simethicone, LInzess, lactulose and bisacodyl. She also takes reglan qidachs. 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 She continues to work with ortho about this, she had an injection that did not help. She asks me if we can change her Trulicity to Mounjaro because I keep gaining weight. I advise her that this needs to be addressed by her PCP who manages her diabetes. This is Mary Rivera. She is c/o easy bruising, but she is on brillenta and asa for cardiac prophylaxis which can cause this but it is more annoying than harmful. She has a cardiac stent. She was educated that this medication is necessary but will cause easy bruising that is more of an annoyance that it is harmful to her. She felt reassured by this Education. She confirms that she is satisfied with her current GI regimen and has no complaints as far as that goes. I will relay her concerns to her primary care provider/diabetes management provider. Return office visit in 6 months. [facility] Medical History (Updated 03/24/24 @ 17:15 by ABE Breen) Left hip pain Sacroiliac joint pain Elevated liver enzymes Right knee pain Left lumbar radiculitis Lumbago with sciatica Sepsis Right anterior knee pain Nausea and vomiting Candidiasis of mouth and esophagus Dysuria Medication monitoring encounter Abnormal findings on diagnostic imaging of musculoskeletal system Myocardial infarction Asthma ANGIE (obstructive sleep apnea) Diabetes Esophageal dysmotilities Esophageal candidiasis Pneumonia Cystitis Recurrent UTI (urinary tract infection) Vitamin D deficiency Hypothyroidism Osteoporosis B12 deficiency Iron deficiency anemia IBS (irritable bowel syndrome) Surgical History H/O heart surgery Hx of gastric bypass History of esophagogastroduodenoscopy (EGD) Hx of colonoscopy History of arthroscopy of left shoulder Family History Father No problems noted. 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 Tobacco Use Status: Never used Tobacco service: No Current occupational status: disabled Review of Systems Const Denies fatigue, Denies fever(s), Denies night sweats, Denies poor appetite, Reports weight gain and Denies weight loss ENT Reports Normal hearing present, Denies dental pain, Denies dysphagia, Denies hearing loss, Denies mouth pain, Denies odynophagia, Denies throat swelling, Denies tongue swelling and Reports other (Dentition adequate) Card Reports no additional complaints Resp Reports no additional complaints GI Details: Denies abdominal pain, Denies melena, Reports bloating, Denies hematochezia, Reports constipation, Denies GI cramping, Denies dysphagia, Denies excessive flatus, Reports early satiety, Reports heartburn, Denies diarrhea, Denies nausea, Denies odynophagia, Denies vomiting and Denies hematemesis Skin/Breast Denies pruritus, Denies lesions, Denies rash and Denies jaundice Neuro Reports Normal hearing present and Denies Abnormal speech present Endo Denies fatigue Luis Miguel/Lymph Reports easy bruising Aller/Immun Denies throat swelling and Denies tongue swelling Physical Exam Vital Signs: Last Vital Signs Pulse 74 03/24/24 13:17 BP 112/55 L 03/24/24 13:17 BMI result Body Mass Index 29.3 Const General: cooperative, no acute distress, well developed and well groomed Nutritional Appearance: well nourished and overweight Orientation/consciousness: oriented to person, oriented to place and oriented to time Limitations: language barrier HEENT Head: Yes normocephalic and Yes atraumatic Eyes General: appearance normal, both eyes and all related structures Pupils: Equal, round and reactive pupils present Neck Neck: Yes normal visual inspection and Yes no lymphadenopathy Thyroid: Thyroid normal Resp Effort & Inspection: normal respiratory effort and able to speak in complete sentences Auscultation: clear to auscultation bilaterally Cardio Rate: regular rate Rhythm: regular rhythm Heart sounds: Normal, physiologic split S2 sound present Peripheral pulses: radial pulses present and posterior tibial pulses present GI Inspection: No distended, No Abdominal panniculus present and Yes obesity Palpation (GI): Soft to palpation, nontender, no guarding, not rigid and No hepatosplenomegaly present Percussion: Yes normal to percussion Auscultation: normal bowel sounds Rectal Exam - Female: deferred Skin Other: Small areas of bruising on the back of the hand and forearm that are resolving well General skin exam: turgor normal, skin not dry, no jaundice, No spider nevi and no striae Rashes: no rashes Nails: normal Neuro General: oriented to person, oriented to place and oriented to time Cranial nerves: Yes Equal, round and reactive pupils present and Yes Normal hearing present Speech: No Abnormal speech present Extrem General: Yes normal to inspection, No clubbing, No cyanosis and No edema Psych Appearance: grossly normal and well kempt Mental Status: mental status grossly normal Speech and movement: Normal speech and movement present Affect: normal affect Attitude: cooperative Thought process: Circumstantial thought process present and not confabulating Thought content: Normal thought content present Insight: Limited insight present (Psych) Judgement: Limited judgement present (Psych) Assessment & Plan Assessment & Plan (1) GERD (gastroesophageal reflux disease): Code(s): K21.9 - Gastro-esophageal reflux disease without esophagitis Category: Medical (2) Chronic idiopathic constipation: Code(s): K59.04 - Chronic idiopathic constipation Category: Medical (3) Diabetes: Code(s): E11.9 - Type 2 diabetes mellitus without complications Category: Medical (4) Non-ST elevated myocardial infarction (non-STEMI): Code(s): I21.4 - Non-ST elevation (NSTEMI) myocardial infarction Category: Medical Plan [place] #Natalee and Marta LIve She continues on her pantoprazole bid, simethicone, LInzess, lactulose and bisacodyl. She also takes reglan qidachs. 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 She continues to work with ortho about this, she had an injection that did not help. She asks me if we can change her Trulicity to Mounjaro because I keep gaining weight. I advise her that this needs to be addressed by her PCP who manages her diabetes. This is Mary Rivera. She is c/o easy bruising, but she is on brillenta and asa for cardiac prophylaxis which can cause this but it is more annoying than harmful. She has a cardiac stent. She was educated that this medication is necessary but will cause easy bruising that is more of an annoyance that it is harmful to her. She felt reassured by this Education. She confirms that she is satisfied with her current GI regimen and has no complaints as far as that goes. I will relay her concerns to her primary care provider/diabetes management provider. Return office visit in 6 months. Medications: New pbucjp-xvybnthu-vtonest 24,000-76,000 -120,000 unit (Creon) 24,000 caps PO BID 120 caps 6RF Refilled linaclotide (Linzess) 290 mcg PO QAM 30 caps 6RF K59.04 - Chronic idiopathic constipation famotidine 20 mg PO DAILY 30 tabs 6RF K28.9 - Gastrojejunal ulcer, unspecified as acute or chronic, without hemorrhage or perforation metoclopramide HCl 10 mg PO QID 120 tabs 6RF K31.84 - Gastroparesis pantoprazole 40 mg PO BID 60 tabs 6RF K21.9 - Gastro-esophageal reflux disease without esophagitis, K28.9 - Gastrojejunal ulcer, unspecified as acute or chronic, without hemorrhage or perforation simethicone (Gas Relief (simethicone)) 180 mg PO QID 120 caps 2RF Coding Level of Care Code Est Pt Level 4 (80872) Diagnoses GERD (gastroesophageal reflux disease) K21.9 Chronic idiopathic constipation K59.04 Diabetes E11.9 Non-ST elevated myocardial infarction (non-STEMI) I21.4 Time Spent (min) 37
[2024-03-24 13:17] VITALS: BP 112/55; PULSE 74; BMI 29.3
== END 2024-03-24 13:36 | disposition home or self-care (01) ==
PROVIDERS: PCP Internal Medicine; Visit Provider Nurse Practitioner
DX: K21.9 Gastro-esophageal reflux disease without esophagitis (principal); K59.04 Chronic idiopathic constipation; E11.9 Type 2 diabetes mellitus without complications; I21.4 Non-ST elevation (NSTEMI) myocardial infarction
CPT/HCPCS: 99214

== ENCOUNTER → 2024-03-24 12:54 | Outpatient (BNVA) | payer OTHER, SELFPAY | PROVIDERS: PCP Internal Medicine; Visit Provider Nurse Practitioner | DX: K21.9 Gastro-esophageal reflux disease without esophagitis (principal); K59.04 Chronic idiopathic constipation; E11.9 Type 2 diabetes mellitus without complications; I21.4 Non-ST elevation (NSTEMI) myocardial infarction | CPT/HCPCS: 99212 ==

== ENCOUNTER 2024-03-29 09:00 | Outpatient (AMB) | payer OTHER, SELFPAY ==
--- NOTE | 2024-03-29 09:40 | A.OFFVIS_ITS ---
Vital Signs 03/29/24 09:41 Height 5 ft Weight 147 lb 14.883 oz BMI 28.9 BP 122/70 Blood Pressure Location Lt brachial Position Sitting Pulse 72 Pulse Source Pulse Oximeter Pulse Oximetry (%) 99 Oxygen Delivery Method Room Air Intake Visit Reasons: Asthma/ANGIE Set Up Technician Required: No Allergies No Known Allergies [No Known Allergies*] Allergy (Verified 03/29/24 09:44) HPI Comments Details: The patient is a 73-year-old woman with the history of asthma in addition to obstructive sleep apnea. Apparently she has been on the Trelegy inhaler in addition to her rescue inhaler. Seems like she is not using the Trelegy. She does not like the powder and this med is helping her. She does use a Ventolin inhaler multiple times a day however. Denies any significant cough chest congestion. She has many chest tightness and wheezing at times. I do believe that she may do better with Symbicort as it is more potent and she may feel the affects of bed and she understands that she will use it twice a day. In the meantime the patient also has underlying daytime drowsiness. Her [place] score is elevated 10/24. The patient does have significant snoring at nighttime. She did undergo a sleep study that was done back in 01/2023 demonstrating mild sleep apnea with significant hypoxia. The patient will benefit from starting CPAP at this time. She is looking for to using it and using a small mask. 06/22/2023 the patient is here for a pulmonary follow-up visit. Overall the patient has been doing fairly well from a respiratory status. She does have some musculoskeletal back pain when she is breathing and doing certain house chores. Otherwise, denies any wheezing or chest tightness. She continues on the inhalers with good response. In addition to that she does have daytime drowsiness. Her Lansing score is elevated 11/24. She did get her new CPAP. However she does not know how to use it. She did bring it in. We did take time to teach her how to set up. We did set up with the right mask which is the N20 small mask with the slight and tubing and also decreased her pressures to 4-8 maximum. The patient may also benefit from a chin strap. The patient will start using her CPAP every night for 4 hours. She will return in a couple months with the machine needs we can help her further get used to it. It is difficult for to get used to the equipment, but, in no will help her when she gets comfortable with the equipment in the mask and we can set the right pressure settings for her. 09/25/2023 the patient is here for pulmonary follow-up visit. Overall the patient is doing fair. She recently was hospitalized with a non ST elevation DC. She was initially evaluated at [facility] and then transferred over to [facility] where she underwent PCI. The patient had an echocardiogram with an EF of 40%. She is still weak and she still recovering. But she is feeling better. She has been using a new CPAP. The CPAP therapy has been affecting beneficial. She does use it for more than 4 hours a night. The average pressure comes out to be around 7 cm of pressure. The patient sometimes opens her mouth and she does have an air leak. I will request a chinstrap from her [employer], [employer]. Her respiratory medications are stable right now. The patient overall has been recovering. She is awaiting to get a little stronger to go to rehabilitation. 03/29/2024 the patient is here for a pulmonary follow-up visit. Overall the patient is doing okay. She did get the CPAP. The patient has not been using it as regularly. She still trying to get used to it. I will request access to her airway count in order to be able to adjust the machine accordingly. She understands that she needs to use it at least 4 hours a day. In addition to that the patient is taking a cardioprotective medications at this time because of her underlying heart attack and CAD. Her major complaint is the fact that she can not lose any weight. She feels that the weight is bothers her breathing and overall quality of life. She is on Trulicity. She is wondering about any other medications. I did give her some names but ultimately it would have to be discussed with her component engineer her doctors that are prescribing the medication. [facility], [facility] Medical History (Updated 03/24/24 @ 17:15 by ABE Breen) Left hip pain Sacroiliac joint pain Elevated liver enzymes Right knee pain Left lumbar radiculitis Lumbago with sciatica Sepsis Right anterior knee pain Nausea and vomiting Candidiasis of mouth and esophagus Dysuria Medication monitoring encounter Abnormal findings on diagnostic imaging of musculoskeletal system Myocardial infarction Asthma ANGIE (obstructive sleep apnea) Diabetes Esophageal dysmotilities Esophageal candidiasis Pneumonia Cystitis Recurrent UTI (urinary tract infection) Vitamin D deficiency Hypothyroidism Osteoporosis B12 deficiency Iron deficiency anemia IBS (irritable bowel syndrome) Surgical History H/O heart surgery Hx of gastric bypass History of esophagogastroduodenoscopy (EGD) Hx of colonoscopy History of arthroscopy of left shoulder Family History Father No problems noted. 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 Tobacco Use Status: Never used Tobacco service: No Current occupational status: disabled Review of Systems Const Denies daytime sleepiness, Reports difficulty sleeping and Denies snoring ENT Reports nasal congestion and Reports nasal discharge Card Denies chest pain Resp Reports cough, Denies snoring and Denies wheezing GI Denies abdominal pain Musc Reports no additional complaints Skin/Breast Denies rash Neuro Reports no additional complaints Endo Reports no additional complaints Luis Miguel/Lymph Denies lymphadenopathy Aller/Immun Denies wheezing Physical Exam Vital Signs: Last Vital Signs Pulse 72 03/29/24 09:41 BP 122/70 03/29/24 09:41 Pulse Ox 99 03/29/24 09:41 Oxygen Delivery Method Room Air 03/29/24 09:41 BMI result Body Mass Index 28.9 Const General: comfortable HEENT Head: Yes normocephalic Eyes General: appearance normal, both eyes and all related structures Neck Neck: Yes supple Chest Chest palpation & inspection: normal inspection of the chest Resp Effort & Inspection: normal respiratory effort and prolonged expiratory phase Auscultation: rhonchi, wheezes and diminished lung sounds Cardio Rate: regular rate Rhythm: regular rhythm Heart sounds: S1 normal heart sound present and S2 normal heart sound present GI Palpation (GI): Soft to palpation Skin General skin exam: no rashes or lesions noted Extrem General: Yes no clubbing, cyanosis or edema Assessment & Plan Assessment & Plan (1) Asthma: Code(s): J45.909 - Unspecified asthma, uncomplicated Category: Medical Qualifiers: Asthma complication type: uncomplicated Asthma persistence: persistent Asthma severity: moderate Qualified Code(s): J45.40 - Moderate persistent asthma, uncomplicated (2) ANGIE (obstructive sleep apnea): Code(s): G47.33 - Obstructive sleep apnea (adult) (pediatric) Category: Medical Plan stop spiriva start Trelegy AMANDA as needed continue APAP, adjusted pressures 4-8, N20 small. Needs a chin strap F/U 3-4 months Medications: New qglixmaimaj-rucylkait-ljxtyaix 200-62.5-25 mcg (Trelegy Ellipta) 1 inh inhalation DAILY 60 ea 12RF 30 days Coding Level of Care Code Est Pt Level 4 (81488) Diagnoses Moderate persistent asthma without complication J45.40 Asthma complication type: uncomplicated Asthma persistence: persistent Asthma severity: moderate ANGIE (obstructive sleep apnea) G47.33 Time Spent (min) 17
[2024-03-29 09:41] VITALS: BP 122/70; PULSE 72; O2SAT 99; BMI 28.9
== END 2024-03-29 10:00 | disposition home or self-care (01) ==
PROVIDERS: PCP Internal Medicine; Visit Provider Hospitalist
DX: J45.40 Moderate persistent asthma, uncomplicated (principal); G47.33 Obstructive sleep apnea (adult) (pediatric)
CPT/HCPCS: 99214

== ENCOUNTER → 2024-03-29 09:00 | Outpatient (BNVA) | payer OTHER, SELFPAY | PROVIDERS: PCP Internal Medicine; Visit Provider Hospitalist | DX: J45.40 Moderate persistent asthma, uncomplicated (principal); G47.33 Obstructive sleep apnea (adult) (pediatric) | CPT/HCPCS: 99212 ==

== ENCOUNTER 2024-03-31 08:21 | Emergency (ER) | payer OTHER, SELFPAY ==
[2024-03-31] VITALS (7 sets, daily range): BP systolic 108–123; BP diastolic 32–79; PULSE 63–74; RESP 16–20; TEMP 36.2–37; O2SAT 95–100; BMI 34.7
--- NOTE | ~2024-03-31 | XR_ITS ---
EXAMINATION: LEFT CHEST, LEFT SHOULDER, LEFT ELBOW, LEFT FOREARM, LEFT HAND AND WRIST CLINICAL INFORMATION: Pain after fall COMPARISON: None available. TECHNIQUE: Single view chest, 2 views left shoulder, single view elbow, 2 views left forearm, 2 views hand and wrist CHEST: No significant abnormality is seen involving the heart, lungs, mediastinum or bony thorax. Surgical clips are present in the gallbladder fossa. Mild degenerative changes are present in the spine. LEFT SHOULDER: No shoulder fracture or dislocation is seen. LEFT ELBOW: Limited views of the elbow show no evidence of a fracture. LEFT FOREARM, HAND AND WRIST: There is an impacted fracture mildly comminuted involving the distal radius with dorsal displacement of the distal fracture fragment along with dorsal angulation there is mild medial displacement as well. No ulnar fracture is visualized. No other fractures are seen. XR/XR forearm LT 2V IMPRESSION: Distal radial fracture as described above. Electronically signed by: Francisco Abdi MD 03/31/2024 12:28 PM EDT
--- NOTE | ~2024-03-31 | XR_ITS ---
EXAMINATION: LEFT CHEST, LEFT SHOULDER, LEFT ELBOW, LEFT FOREARM, LEFT HAND AND WRIST CLINICAL INFORMATION: Pain after fall COMPARISON: None available. TECHNIQUE: Single view chest, 2 views left shoulder, single view elbow, 2 views left forearm, 2 views hand and wrist CHEST: No significant abnormality is seen involving the heart, lungs, mediastinum or bony thorax. Surgical clips are present in the gallbladder fossa. Mild degenerative changes are present in the spine. LEFT SHOULDER: No shoulder fracture or dislocation is seen. LEFT ELBOW: Limited views of the elbow show no evidence of a fracture. LEFT FOREARM, HAND AND WRIST: There is an impacted fracture mildly comminuted involving the distal radius with dorsal displacement of the distal fracture fragment along with dorsal angulation there is mild medial displacement as well. No ulnar fracture is visualized. No other fractures are seen. XR/XR hand wrist LT IMPRESSION: Distal radial fracture as described above. Electronically signed by: Francisco Abdi MD 03/31/2024 12:28 PM EDT
--- NOTE | ~2024-03-31 | XR_ITS ---
EXAMINATION: XR WRIST, LEFT CLINICAL INFORMATION: Post reduction COMPARISON: None available. TECHNIQUE: Two views of the left wrist. FINDINGS: A cast has been placed and once again seen is a comminuted distal radial fracture with significantly improved and relatively normal in alignment compared with the prior study. There remains some mild lateral displacement of the distal fracture fragment. A relatively nondisplaced ulnar styloid fracture is better appreciated on these images. XR/XR wrist LT min 3V IMPRESSION: Improved alignment of distal radial fracture. Ulnar styloid fracture present as well. Electronically signed by: Francisco Abdi MD 03/31/2024 04:08 PM EDT
--- NOTE | ~2024-03-31 | XR_ITS ---
EXAMINATION: LEFT CHEST, LEFT SHOULDER, LEFT ELBOW, LEFT FOREARM, LEFT HAND AND WRIST CLINICAL INFORMATION: Pain after fall COMPARISON: None available. TECHNIQUE: Single view chest, 2 views left shoulder, single view elbow, 2 views left forearm, 2 views hand and wrist CHEST: No significant abnormality is seen involving the heart, lungs, mediastinum or bony thorax. Surgical clips are present in the gallbladder fossa. Mild degenerative changes are present in the spine. LEFT SHOULDER: No shoulder fracture or dislocation is seen. LEFT ELBOW: Limited views of the elbow show no evidence of a fracture. LEFT FOREARM, HAND AND WRIST: There is an impacted fracture mildly comminuted involving the distal radius with dorsal displacement of the distal fracture fragment along with dorsal angulation there is mild medial displacement as well. No ulnar fracture is visualized. No other fractures are seen. XR/XR elbow LT min 3V IMPRESSION: Distal radial fracture as described above. Electronically signed by: Francisco Abdi MD 03/31/2024 12:28 PM EDT RP
--- NOTE | ~2024-03-31 | XR_ITS ---
EXAMINATION: LEFT CHEST, LEFT SHOULDER, LEFT ELBOW, LEFT FOREARM, LEFT HAND AND WRIST CLINICAL INFORMATION: Pain after fall COMPARISON: None available. TECHNIQUE: Single view chest, 2 views left shoulder, single view elbow, 2 views left forearm, 2 views hand and wrist CHEST: No significant abnormality is seen involving the heart, lungs, mediastinum or bony thorax. Surgical clips are present in the gallbladder fossa. Mild degenerative changes are present in the spine. LEFT SHOULDER: No shoulder fracture or dislocation is seen. LEFT ELBOW: Limited views of the elbow show no evidence of a fracture. LEFT FOREARM, HAND AND WRIST: There is an impacted fracture mildly comminuted involving the distal radius with dorsal displacement of the distal fracture fragment along with dorsal angulation there is mild medial displacement as well. No ulnar fracture is visualized. No other fractures are seen. XR/XR chest 1V IMPRESSION: Distal radial fracture as described above. Electronically signed by: Francisco Abdi MD 03/31/2024 12:28 PM EDT
--- NOTE | ~2024-03-31 | CT_ITS ---
EXAM: Noncontrast CT scan of the head and cervical spine. INDICATION: Fall with head injury and pain. COMPARISON: Head CT September 27, 2023 TECHNIQUE: Axial slices were obtained from skull base to vertex and displayed. This was followed by helical, multislice, multidetector axial images from the occiput to the upper thorax. Coronal and sagittal reformats of the cervical spine in addition to coronal reformats of the head were obtained at the technologist workstation. DLP: 899 mGy-cm FINDINGS: HEAD: There is no evidence of acute intracranial hemorrhage or territorial infarction. No abnormal mass effect or midline shift is appreciated. Davis-white differentiation is well preserved. No extra-axial fluid collections. The ventricular system and cortical sulci are prominent, consistent with volume loss. There are areas of low density in the periventricular and subcortical white matter, most consistent with sequelae of microvascular ischemic change. The osseous structures and soft tissues are normal. There are calcifications of the cavernous internal carotid arteries. The visualized paranasal sinuses and mastoid air cells are well aerated. SPINE: Normal alignment of the cervical spine. Patient is status post anterior fusion of C3 on C4. Cervical vertebral body heights are maintained. There is mild narrowing of the C5/6 and C6/7 disc space heights. Small osteophytes are present within the lower cervical spine. Mild diffuse facet hypertrophy bilaterally. Visualized lung apices demonstrate mild emphysematous changes and suspected atelectasis. CT/CT head/brain wo IV con IMPRESSION: 1. No acute intracranial pathology. 2. No fractures or dislocations of the cervical spine. Electronically signed by: Herson Mann MD 03/31/2024 10:23 AM EDT
--- NOTE | ~2024-03-31 | CT_ITS ---
EXAM: Noncontrast CT scan of the head and cervical spine. INDICATION: Fall with head injury and pain. COMPARISON: Head CT September 27, 2023 TECHNIQUE: Axial slices were obtained from skull base to vertex and displayed. This was followed by helical, multislice, multidetector axial images from the occiput to the upper thorax. Coronal and sagittal reformats of the cervical spine in addition to coronal reformats of the head were obtained at the technologist workstation. DLP: 899 mGy-cm FINDINGS: HEAD: There is no evidence of acute intracranial hemorrhage or territorial infarction. No abnormal mass effect or midline shift is appreciated. Davis-white differentiation is well preserved. No extra-axial fluid collections. The ventricular system and cortical sulci are prominent, consistent with volume loss. There are areas of low density in the periventricular and subcortical white matter, most consistent with sequelae of microvascular ischemic change. The osseous structures and soft tissues are normal. There are calcifications of the cavernous internal carotid arteries. The visualized paranasal sinuses and mastoid air cells are well aerated. SPINE: Normal alignment of the cervical spine. Patient is status post anterior fusion of C3 on C4. Cervical vertebral body heights are maintained. There is mild narrowing of the C5/6 and C6/7 disc space heights. Small osteophytes are present within the lower cervical spine. Mild diffuse facet hypertrophy bilaterally. Visualized lung apices demonstrate mild emphysematous changes and suspected atelectasis. CT/CT cervical spine wo IV con IMPRESSION: 1. No acute intracranial pathology. 2. No fractures or dislocations of the cervical spine. Electronically signed by: Herson Mann MD 03/31/2024 10:23 AM EDT
--- NOTE | ~2024-03-31 | XR_ITS ---
EXAMINATION: LEFT CHEST, LEFT SHOULDER, LEFT ELBOW, LEFT FOREARM, LEFT HAND AND WRIST CLINICAL INFORMATION: Pain after fall COMPARISON: None available. TECHNIQUE: Single view chest, 2 views left shoulder, single view elbow, 2 views left forearm, 2 views hand and wrist CHEST: No significant abnormality is seen involving the heart, lungs, mediastinum or bony thorax. Surgical clips are present in the gallbladder fossa. Mild degenerative changes are present in the spine. LEFT SHOULDER: No shoulder fracture or dislocation is seen. LEFT ELBOW: Limited views of the elbow show no evidence of a fracture. LEFT FOREARM, HAND AND WRIST: There is an impacted fracture mildly comminuted involving the distal radius with dorsal displacement of the distal fracture fragment along with dorsal angulation there is mild medial displacement as well. No ulnar fracture is visualized. No other fractures are seen. XR/XR shoulder LT min 2V IMPRESSION: Distal radial fracture as described above. Electronically signed by: Francisco Abdi MD 03/31/2024 12:28 PM EDT RP
--- NOTE | 2024-03-31 08:53 | ED_ITS ---
HPI - General Adult General Chief complaint: Fall Stated complaint: TRIP/FALL,L WRIST PAIN/DEFORMITY,HIT HEAD PER EMS Time Seen by Provider: 03/31/24 08:53 Source: patient, family (patient's son), EMS and seismic interpreter (all interactions with this patient were facilitated with an [facility] park interpreter) Mode of arrival: EMS Limitations: language barrier (all interactions with this patient were facilitated with an [facility] park interpreter) History of Present Illness ED Provider: Jesenia Ho PA-C HPI narrative: Patient is a 73 year old assigned female at with a history of LAD stent in 08/2023 on Brilinta and ASA, asthma, anemia, GERD, and VAZQUEZ presenting to the emergency department today with left wrist pain after a fall. Patient states that she got up and opened the fridge, got dizzy, and fell landing on an out stretched left hand. Patient denies any dizziness, lightheadedness, abdominal pain, nausea, vomiting, fever, chills, blurry vision, double vision, loss of vision, chest pain, difficulty breathing, shortness of breath, back pain, night sweats, pain with urination, increased urinary frequency, increased urinary urgency, blood in his urine or stool, syncope or a near syncopal episode, bowel incontinence, bladder incontinence, or any other complaints at this time. Associated symptoms: denies other symptoms Treatments prior to arrival: none Related Data Home Medications ?Medication ?Instructions ?Recorded ?Confirmed ascorbic acid (vitamin C) 500 mg 500 mg PO BID 07/17/20 02/12/24 tablet (Vitamin C) aspirin 81 mg tablet,delayed 81 mg PO DAILY 07/17/20 02/12/24 release montelukast 10 mg tablet 10 mg PO BEDTIME 08/10/20 02/12/24 blood sugar diagnostic #10 ea 09/12/20 02/12/24 clonazepam 1 mg tablet 1 mg PO TID PRN Anxiety 09/12/20 02/12/24 dulaglutide 0.75 mg/0.5 mL 0.75 mg subcut QWEEK 09/12/20 02/12/24 subcutaneous pen injector lancets 33 gauge #100 ea 09/12/20 02/12/24 metformin 500 mg tablet,extended 500 mg PO BID 09/12/20 02/12/24 release 24 hr estradiol 0.01% (0.1 mg/gram) 1 g vaginal 3XW 10/11/20 02/12/24 vaginal cream zolpidem 10 mg tablet 1 tab PO BEDTIME 03/20/21 02/12/24 acetaminophen 500 mg tablet 500 mg PO Q6-8H PRN Pain 12/02/21 02/12/24 albuterol sulfate 90 mcg/actuation 0 mcg inhalation DAILY 12/02/21 02/12/24 aerosol inhaler (Ventolin HFA) mupirocin 2 % topical ointment 1 appl topical TID 12/02/21 02/12/24 rosuvastatin 40 mg tablet 40 mg PO DAILY 12/02/21 02/12/24 ipratropium 0.5 mg-albuterol 3 mg 3 ml inhalation QID 12/17/21 02/12/24 (2.5 mg base)/3 mL nebulization soln multivitamin-ferrous 1 tab PO DAILY 12/17/21 02/12/24 fumarate-folic acid 18 mg-400 mcg tablet (Certavite-Antioxidant) diclofenac sodium 1 % topical gel 1 g topical BID 02/11/22 02/12/24 methenamine hippurate 1 gram tablet 1 g PO DAILY 02/11/22 02/12/24 furosemide 20 mg tablet 20 mg PO DAILY 05/27/22 02/12/24 amlodipine 10 mg tablet 10 mg PO QAM 10/09/22 02/12/24 metoprolol succinate 50 mg 50 mg PO DAILY 10/09/22 02/12/24 tablet,extended release 24 hr gabapentin 600 mg tablet 600 mg PO TID 11/04/22 02/12/24 nitroglycerin 0.4 mg sublingual 0.4 mg sublingual DAILY 11/04/22 02/12/24 tablet CPAP (CPAP Machine/Device) 03/24/23 02/12/24 CPAP (CPAP Machine/Device) 07/31/23 02/12/24 levothyroxine 125 mcg tablet 125 mcg PO DAILY 07/31/23 02/12/24 dapagliflozin propanediol 10 mg 10 mg PO DAILY 09/30/23 02/12/24 tablet (Farxiga) losartan 25 mg tablet 25 mg PO DAILY 09/30/23 02/12/24 sacubitril 24 mg-valsartan 26 mg 1 tab PO BID 09/30/23 02/12/24 tablet (Entresto) ticagrelor 90 mg tablet (Brilinta) 90 mg PO BID 09/30/23 02/12/24 isosorbide mononitrate 30 mg 30 mg PO DAILY 03/24/24 tablet,extended release 24 hr topiramate 25 mg tablet 25 mg PO DAILY 03/24/24 venlafaxine 150 mg 150 mg PO DAILY 03/24/24 capsule,extended release 24 hr Previous Rx's ?Medication ?Instructions ?Recorded cholecalciferol (vitamin D3) 50 50 mcg PO DAILY 30 days #30 caps 07/23/20 mcg (2,000 unit) capsule meclizine 12.5 mg tablet 12.5 mg PO TID PRN dizziness #20 03/20/21 tabs lidocaine 5 % topical patch 1 patch topical DAILY 30 days #30 11/01/21 ea ferrous sulfate 325 mg (65 mg 325 mg PO DAILY #90 tabs 04/01/22 iron) tablet (iron) bisacodyl 5 mg tablet,delayed 15 mg (3 x 5 mg) PO BEDTIME 30 01/28/23 release (Dulcolax (bisacodyl)) days #90 tabs budesonide-formoterol HFA 160 2 puff inhalation BID 30 days 03/24/23 mcg-4.5 mcg/actuation aerosol #10.2 grams inhaler (Symbicort) cyanocobalamin (vitamin B-12) 1,000 mcg PO DAILY 06/16/23 1,000 mcg tablet folic acid 1 mg tablet 1 mg PO DAILY #90 tabs 06/21/23 lactulose 20 gram/30 mL oral 20 g (30 mL) PO TID #3,000 mL 07/31/23 solution lorazepam 1 mg tablet (Ativan) 1 mg PO ONCE anxiety #1 tab 12/28/23 tramadol 50 mg tablet 50 mg PO QID PRN pain #120 tabs 12/29/23 famotidine 20 mg tablet 20 mg PO DAILY #30 tabs 03/24/24 linaclotide 290 mcg capsule 290 mcg PO QAM #30 caps 03/24/24 (Linzess) hzqtli-eiuyefgi-nusyttw 24,000 cap PO BID #120 caps 03/24/24 24,000-76,000-120,000 unit capsule,delayed rel (Creon) metoclopramide HCl 10 mg tablet 10 mg PO QID #120 tabs 03/24/24 pantoprazole 40 mg tablet,delayed 40 mg PO BID #60 tabs 03/24/24 release simethicone 180 mg capsule (Gas 180 mg PO QID #120 caps 03/24/24 Relief (simethicone)) fluticasone fur. 200 mcg-umeclid 1 inh inhalation DAILY 30 days #60 03/29/24 62.5 mcg-vilant 25 mcg ea inhalat.powder (Trelegy Ellipta) Allergies Allergy/AdvReac Type Severity Reaction Status Date / Time No Known Allergies Allergy Verified 03/31/24 08:41 [No Known Allergies*] Review of Systems 2 Constitutional: Constitutional: Reports no additional constitutional complaints, Denies chills, Denies fever(s) and Denies night sweats Eyes: Eyes: Reports no additional eye complaints, Denies blurry vision, Denies change in vision, Denies diplopia, Denies eye discharge, Denies loss of vision and Denies eye pain ENT: Denies dizziness Cardiovascular: Cardiovascular: Reports no additional cardiovascular complaints, Denies chest pain, Denies lightheadedness, Denies Loss of Consciousness and Denies dyspnea Respiratory: Respiratory: Reports no additional respiratory complaints and Denies dyspnea Gastrointestinal: Gastrointestinal: Reports no additional gastrointestinal complaints, Denies abdominal pain, Denies melena, Denies hematochezia, Denies change in bowel habits and Denies change in stool character Genitourinary: Genitourinary: Denies hematuria, Denies urinary frequency, Denies dysuria, Denies urinary incontinence, Denies urinary hesitancy and Denies urinary urgency Musculoskeletal: Musculoskeletal: Reports no additional musculoskeletal complaints, Denies numbness and Denies tingling Comments: left wrist pain Neurologic: Denies dizziness, Denies loss of vision, Denies numbness and Denies tingling Psychiatric: Psychiatric: Reports no additional psychiatric complaints Endocrine: Endocrine: Reports no additional endocrine complaints Hematologic/Lymphatic: Hematologic/Lymphatic: Reports no additional hematologic/lymphatic complaints Allergic/Immunologic: Allergic/Immunologic: Reports no additional allergic/immunologic complaints PMFSH Past Medical History Attestation statement: The following information was validated with the patient. (patient's son validated all information) Source: old records reviewed, obtained from family (patient's son provided additional history and confirmed the history provided by the patient) and nursing notes reviewed Medical History Left hip pain Sacroiliac joint pain Elevated liver enzymes Right knee pain Left lumbar radiculitis Lumbago with sciatica Sepsis Right anterior knee pain Nausea and vomiting Candidiasis of mouth and esophagus Dysuria Medication monitoring encounter Abnormal findings on diagnostic imaging of musculoskeletal system Myocardial infarction Asthma ANGIE (obstructive sleep apnea) Diabetes Esophageal dysmotilities Esophageal candidiasis Pneumonia Cystitis Recurrent UTI (urinary tract infection) Vitamin D deficiency Hypothyroidism Osteoporosis B12 deficiency Iron deficiency anemia IBS (irritable bowel syndrome) Surgical History H/O heart surgery Hx of gastric bypass History of esophagogastroduodenoscopy (EGD) Hx of colonoscopy History of arthroscopy of left shoulder Family History Family History Father No problems noted. 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 Patient Tobacco Use Status: Never used Tobacco service: No Current occupational status: disabled Physical Exam ED Vital Signs: Vital Signs - 24 hr 03/31/24 08:37 03/31/24 08:49 03/31/24 09:46 Temperature 97.6 F 97.6 F Pulse Rate 73 73 66 Respiratory Rate 20 20 16 Blood Pressure 108/51 L 108/51 L 109/32 L Pulse Oximetry 100 100 95 Oxygen Delivery Method Room Air Room Air Room Air 03/31/24 10:21 03/31/24 11:18 03/31/24 13:37 Temperature 97.2 F Pulse Rate 69 70 64 Respiratory Rate 20 16 18 Blood Pressure 123/57 L 115/48 L Pulse Oximetry 98 97 98 Oxygen Delivery Method Room Air Room Air 03/31/24 15:09 Temperature 98.6 F Pulse Rate 63 Respiratory Rate 16 Blood Pressure 114/53 L Pulse Oximetry 97 Oxygen Delivery Method Room Air BMI result Body Mass Index 34.7 Const General: cooperative, no acute distress, alert and awake Nutritional Appearance: well nourished Orientation/consciousness: patient oriented x3 Limitations: no limitations HENMT Head: Yes normal to inspection and Yes atraumatic Ears: hearing grossly normal bilaterally and external ears normal General nose exam: Normal external nose present, no nasal discharge noted and no epistaxis Face and sinus: Yes normal facial exam, No abrasion and No laceration Mouth: Normal oral and palatal mucosa present, no drooling and no muffled voice Eyes General: appearance normal, both eyes and all related structures Periorbital: periorbital findings normal Eyelids: Yes eyelids normal Conjunctivae: conjunctivae normal Pupils: Equal, round and reactive pupils present EOM: EOMs intact bilaterally Neck Neck: Yes normal visual inspection, Yes full ROM and Yes no lymphadenopathy Chest Chest palpation & inspection: normal inspection of the chest Resp Effort & Inspection: normal respiratory effort and able to speak in complete sentences GI Inspection: Yes normal to inspection Neuro General: patient oriented x3 and moves all extremities Cranial nerves: Yes Equal, round and reactive pupils present Cognition (Neuro): normal cognition Extrem Other: left wrist deformity pain with left wrist ROM General: Yes capillary refill normal Psych Appearance: grossly normal Mental Status: mental status grossly normal Affect: normal affect Attitude: cooperative Thought process: Normal thought process present Thought content: Normal thought content present Insight: Good insight present (Psych) Medications Administered Discontinued Medications Generic Name Dose Route Start Last Admin Trade Name Freq PRN Reason Stop Dose Admin Fentanyl 25 mcg 03/31/24 09:42 03/31/24 10:38 Fentanyl Citrate/Pf 100 Mcg/2 Ml Vial IVPUSH 03/31/24 09:43 25 mcg ONCE ONE Administration Protocol Sodium Chloride 1,000 mls @ 999 mls/hr 03/31/24 10:30 03/31/24 11:31 Ns IV 03/31/24 11:30 Infused .Q1H1M AMINA Infusion Lorazepam 1 mg 03/31/24 10:28 03/31/24 10:35 Lorazepam 2 Mg/Ml Vial IVPUSH 03/31/24 10:29 1 mg ONCE ONE Administration Morphine Sulfate 4 mg 03/31/24 10:28 03/31/24 10:35 Morphine Sulfate 4 Mg/Ml Cartridge IVPUSH 03/31/24 10:29 4 mg ONCE ONE Administration Protocol Propofol 100 mg 03/31/24 12:54 03/31/24 13:40 Propofol 200 Mg/20 Ml Vial IVPUSH 03/31/24 12:55 50 mg ONCE ONE Administration Procedures Orthopedic Fracture Reduction Fracture #1: Time Out Performed: Yes Side: left Fracture Reduction Location: radius Analgesia: procedural sedation Technique: direct manipulation Post Reduction X-rays Demonstrate: anatomical reduction Post-reduction neuro exam: intact Post-reduction vascular exam: intact Splint Applied: Yes Patient Tolerated Procedure: well Orthopedic Splinting/Casting Injury #1: Side: left Upper Extremity Injury Location: wrist Upper Extremity Immobilizer: sling/shoulder immobilizer and sugar tong splint Procedural Sedation Indication: fracture/dislocation reduction ASA Class: III Mallampati Class: I Preparation: cardiac nurse applied, pulse oximeter, capnometry used, supplemental O2 applied, suction/airway equipment at bedside and IV secured IV Propofol dose (mg): 50 Patient Tolerated Procedure: well Complications: none Medical Decision Making Medical Decision Making MDM Narrative: Patient is a 73 year old assigned female at with a history of LAD stent in 08/2023 on Brilinta and ASA, asthma, anemia, GERD, and VAZQUEZ presenting to the emergency department today with left wrist pain after a fall. Patient's physical exam was as noted in the physical exam portion of this note. Patient's blood work showed a mild hyperkalemia of 5.3 but were otherwise unremarkable. Patient's EKG was unremarkable. Patient's left shoulder, left elbow, and chest x-rays showed no acute process. Patient's left wrist and forearm x-ray showed a distal radial fracture. Patient's CT head and c-spine showed no acute process. I spoke to the orthopedic team who recommended reduction in the ED, splinting, and having the patient follow up in the office on 04/05 at 1030 am. They recommended surgery on the left wrist on 04/07/2024 IF the patient holds her Bilinta appropriately. I spoke to the bindery worker about the patient holding her Brilinta prior to the surgery. He recommended having the patient's final dose of Brilinta on 04/03/2024. I explained my physical exam findings as well as all test results to the patient and the patient's son. I answered all questions asked by the patient and the patient's son. Patient received IV Fentanyl, morphine, and ativan which, upon re-evaluation, she stated it helped her symptoms significantly. My attending physician Dr. Almonte and I performed a conscious sedation reduction of the patient's left wrist fracture, without incident. Patient's repeat left wrist x-ray post reduction showed improved alignment of the radius and an ulnar styloid fracture. I applied a sugar tong splint to the left wrist and place the wrist in a sling, without incident. Patient's PMS was intact prior to and after reduction, splint, and sling placement.I stressed the importance of the patient taking her medication as directed (either prescribed or as the over the counter packaging recommends). I stressed the importance of the patient following up with her primary care provider and the orthopedic provider as scheduled. I stressed the importance of the patient returning to the emergency department immediately if her symptoms were to worsen or if she were to develop any dizziness, shortness of breath, difficulty breathing, chest pain, blurry vision, loss of vision, nausea, vomiting, abdominal pain, fever, chills, back pain, or any other complaints. Patient and the patient's son verbalized agreement and understanding with this treatment plan and discharge. Differential Diagnosis Differential Diagnoses: The differential diagnosis associated with the presentation includes Wrist fracture Fall Admission/Observation Consideration of admission/observation: Escalation of care including admission/observation considered Patient would have been admitted to the hospital had her work up had any findings where hospital admission was appropriate and her clinical presentation warranted hospital admission. Consult Healthcare Provider Management of the patient was discussed with: Distribution Spec (spoke to the orthopedic and blood typer as noted in the MDM Rationale portion of this note.) Lab Data [facility] Lab Attestation statement: I reviewed the patient's lab results. My interpretation of these results are in the MDM Rationale portion of this note. 03/31/24 09:35 03/31/24 09:35 Labs: Lab Results 03/31/24 Range/Units 09:35 WBC 8.1 (4.8-10.8) X10*3/uL RBC 3.87 L (4.20-5.50) X10*6/uL Hgb 12.0 (12.0-16.0) g/dl Hct 36.8 L (37.0-47.0) % MCV 95.1 (80.0-98.0) fL MCH 31.0 (27.0-33.0) pg MCHC 32.6 (31.0-35.0) g/dl RDW 15.5 (11.0-16.0) % Plt Count 245 (160-400) X10*3/uL MPV 10.6 (9.4-12.3) fL Immature Gran % (Auto) 0.4 (0.0-0.4) % Neut % (Auto) 69.0 (45-73) % Lymph % (Auto) 18.1 L (20-40) % Citrus % (Auto) 8.9 (2-11) % Eos % (Auto) 3.0 (0-4) % Baso % (Auto) 0.6 (0-2) % Lymph # (Auto) 1.5 (1.2-4.9) X10*3/uL Citrus # (Auto) 0.7 (0.1-1.2) X10*3/uL Eos # (Auto) 0.2 (0.0-0.4) X10*3/uL Baso # (Auto) 0.1 (0.0-0.2) X10*3/uL Abs Immat Gran (auto) 0.03 (0.00-0.03) X10*3/uL Absolute Neuts (auto) 5.6 (2.0-8.3) x10*3/uL Absolute Nucleated RBC 0.000 (0.0-0.012) X10*3/uL Nucleated RBC % (auto) 0.0 (0.0-0.2) /100WBC Sodium 139 (135-145) mmol/L Potassium 5.3 H D (3.3-5.1) mmol/L Chloride 109 H (96-108) mmol/L Carbon Dioxide 25 (22-29) mmol/L Anion Gap 10 L (12-20) BUN 14 (9-16) mg/dL Creatinine 1.23 (0.5-1.4) mg/dL Estim Creat Clear Calc 38.8 Estimated GFR 43 Random Glucose 95 (60-115) mg/dL Calcium 9.1 D (8.4-10.2) mg/dL Total Bilirubin 0.4 (0.0-1.0) mg/dL AST 31 (5-31) U/L ALT 17 (0-31) U/L Alkaline Phosphatase 63 (39-117) U/L Total Protein 6.4 L (6.5-8.0) g/dL Albumin 3.8 (3.5-5.0) g/dL Influenza Type A (PCR) NEGATIVE (Negative) Influenza Type B (PCR) NEGATIVE (Negative) RSV RNA Qual (PCR) NEGATIVE (Negative) SARS-CoV-2 RNA (RT-PCR) NEGATIVE (Negative) Independent Interpretation I performed an independent interpretation of an: EKG, Plain X-Ray and CT Scan Interpretation: My interpretation is in agreement with the radiologist's impression of these imaging studies. L EXAMINATION: LEFT CHEST, LEFT SHOULDER, LEFT ELBOW, LEFT FOREARM, LEFT HAND AND WRIST CLINICAL INFORMATION: Pain after fall COMPARISON: None available. TECHNIQUE: Single view chest, 2 views left shoulder, single view elbow, 2 views left forearm, 2 views hand and wrist CHEST: No significant abnormality is seen involving the heart, lungs, mediastinum or bony thorax. Surgical clips are present in the gallbladder fossa. Mild degenerative changes are present in the spine. LEFT SHOULDER: No shoulder fracture or dislocation is seen. LEFT ELBOW: Limited views of the elbow show no evidence of a fracture. LEFT FOREARM, HAND AND WRIST: There is an impacted fracture mildly comminuted involving the distal radius with dorsal displacement of the distal fracture fragment along with dorsal angulation there is mild medial displacement as well. No ulnar fracture is visualized. No other fractures are seen. XR/XR elbow LT min 3V IMPRESSION: Distal radial fracture as described above. Electronically signed by: Francisco Abdi MD 03/31/2024 12:28 PM EDT Dictated By: Francisco Abdi MD Signed By: Electronically signed by Francisco Abdi MD 03/31/24 1228 EXAM: Noncontrast CT scan of the head and cervical spine. INDICATION: Fall with head injury and pain. COMPARISON: Head CT September 27, 2023 TECHNIQUE: Axial slices were obtained from skull base to vertex and displayed. This was followed by helical, multislice, multidetector axial images from the occiput to the upper thorax. Coronal and sagittal reformats of the cervical spine in addition to coronal reformats of the head were obtained at the technologist workstation. DLP: 899 mGy-cm FINDINGS: HEAD: There is no evidence of acute intracranial hemorrhage or territorial infarction. No abnormal mass effect or midline shift is appreciated. Davis-white differentiation is well preserved. No extra-axial fluid collections. The ventricular system and cortical sulci are prominent, consistent with volume loss. There are areas of low density in the periventricular and subcortical white matter, most consistent with sequelae of microvascular ischemic change. The osseous structures and soft tissues are normal. There are calcifications of the cavernous internal carotid arteries. The visualized paranasal sinuses and mastoid air cells are well aerated. SPINE: Normal alignment of the cervical spine. Patient is status post anterior fusion of C3 on C4. Cervical vertebral body heights are maintained. There is mild narrowing of the C5/6 and C6/7 disc space heights. Small osteophytes are present within the lower cervical spine. Mild diffuse facet hypertrophy bilaterally. Visualized lung apices demonstrate mild emphysematous changes and suspected atelectasis. CT/CT head/brain wo IV con IMPRESSION: 1. No acute intracranial pathology. 2. No fractures or dislocations of the cervical spine. Electronically signed by: Herson Mann MD 03/31/2024 10:23 AM EDT Dictated By: Herson Mann MD Signed By: Electronically signed by Herson Mann MD 03/31/24 1023 EXAMINATION: XR WRIST, LEFT CLINICAL INFORMATION: Post reduction COMPARISON: None available. TECHNIQUE: Two views of the left wrist. FINDINGS: A cast has been placed and once again seen is a comminuted distal radial fracture with significantly improved and relatively normal in alignment compared with the prior study. There remains some mild lateral displacement of the distal fracture fragment. A relatively nondisplaced ulnar styloid fracture is better appreciated on these images. XR/XR wrist LT min 3V IMPRESSION: Improved alignment of distal radial fracture. Ulnar styloid fracture present as well. Electronically signed by: Francisco Abdi MD 03/31/2024 04:08 PM EDT RP Dictated By: Francisco Abdi MD Signed By: Electronically signed by Francisco Abdi MD 03/31/24 5499 Radiology Impression Discussion of test interpretation with radiology: I have reviewed the radiologist's reading. Independent Historian Clinical information obtained from an independent historian. History obtained from or confirmed by: EMS (EMS provided additional history and confirmed the history provided by the patient.) and Other (patient's son provided additional history and confirmed the history provided by the patient.) Critical Care Time Critical Care Time Critical Care Time: Yes Total Critical Care Time: 64 Attestation: I spent 64 minutes of Critical Care Time with this patient. This does not include time spent on separately reported billable procedures. Discharge Plan Discharge Clinical Impression: Fracture of wrist, Fall Patient Disposition: Home, Self-Care Instructions: Wrist Fracture in Adults (ED), Fall Prevention for Older Adults (ED) Additional Instructions: Do NOT remove the splint. Do NOT get the splint wet. If you start to have any numbness / tingling in your left fingers, you may loosen the outter ANTOIENTTE wrap of the splint. If you find yourself loosening to the point where you see white underneath - STOP and return to the ER immediately. Wear your sling when ambulating. YOUR LAST DOSE OF BRILINTA (ticagrelor) SHOULD BE ON 03/27/2024. DO NOT TAKE IT AFTER THAT UNTIL YOU ARE TOLD TO DO SO. This is critical for you to be able to have surgery next week. You have an appointment with the orthopedic doctor on 04/05/2024 at 1030am. Return to the emergency department immediately if your symptoms worsen or if you develop any dizziness, shortness of breath, difficulty breathing, chest pain, blurry vision, loss of vision, nausea, vomiting, abdominal pain, fever, chills, back pain, or any other complaints. NO retire la f?brandt. NO moje la f?brandt. Si empieza a tener entumecimiento / hormigueo en los dedos izquierdos, puede aflojar la envoltura ANTOINETTE exterior de la f?brandt. Si nota que se afloja hasta el punto de mary butterfield por debajo, DET?NGASE y vuelva a Urgencias inmediatamente. Lleve el cabestrillo cuando deambule. [place]AVA[place]UGH ?LTIMA DOSIS DE BRILINTA (ticagrelor) DEBER?A SER EL 27/03/2024. NO LO TOME DESPU?S HASTA QUE SE LO INDIQUEN. [place] es fundamental para que pueda operarse la semana que viene. Tiene thea con el traumat?logo el 05/04/2024 a las 10:30h. Vuelva al servicio de urgencias inmediatamente si uriel s?ntomas empeoran o si presenta mareos, falta de aliento, dificultad para respirar, dolor en el pecho, visi?n borrosa, p?rdida de visi?n, n?useas, v?mitos, dolor abdominal, fiebre, escalofr?os, dolor de espalda o cualquier otra molestia. Traducci?n realizada con la versi?n gratuita del traductor [email or web address] Prescriptions: No Action cholecalciferol (vitamin D3) 50 mcg (2,000 unit) capsule 50 mcg PO DAILY 30 Days Qty: 30 6RF Rx Instructions: Dose decreased to 2000 international units daily. cyanocobalamin (vitamin B-12) 1,000 mcg tablet 1,000 mcg PO DAILY 5RF folic acid 1 mg Tablet 1 mg PO DAILY Qty: 90 5RF lorazepam [Ativan] 1 mg tablet 1 mg PO ONCE Qty: 1 0RF Rx Instructions: Take 30 minutes prior to arrival to procedure tramadol 50 mg tablet 50 mg PO QID PRN (Reason: pain) Qty: 120 3RF aspirin 81 mg Tablet,Delayed Release (Dr/Ec) 81 mg PO DAILY ascorbic acid (vitamin C) [Vitamin C] 500 mg Tablet 500 mg PO BID ferrous sulfate [iron] 325 mg (65 mg iron) Tablet 325 mg PO DAILY Qty: 90 3RF estradiol 0.01 % (0.1 mg/gram) cream 1 g vaginal 3XW Patient Comments: add as new rx upon dc zolpidem 10 mg tablet 1 tab PO BEDTIME meclizine 12.5 mg tablet 12.5 mg PO TID PRN (Reason: dizziness) Qty: 20 0RF clonazepam 1 mg tablet 1 mg PO TID PRN (Reason: Anxiety) dulaglutide 0.75 mg/0.5 mL pen injector 0.75 mg subcut QWEEK (DME) lancets 33 gauge misc See Rx Instructions Not Applicable BID Qty: 100 Rx Instructions: As directed (DME) blood sugar diagnostic Strip See Rx Instructions Not Applicable BID Qty: 10 Rx Instructions: As directed metformin 500 mg tablet extended release 24 hr 500 mg PO BID montelukast 10 mg tablet 10 mg PO BEDTIME lidocaine 5 % adhesive patch,medicated 1 patch topical DAILY 30 Days Qty: 30 0RF Rx Instructions: leave on most painful area for up to 12 hrs Certavite-Antioxidant 18-400 mg-mcg tablet 1 tab PO DAILY ipratropium-albuterol 0.5 mg-3 mg(2.5 mg base)/3 mL solution for nebulization 3 ml inhalation QID methenamine hippurate 1 gram tablet 1 g PO DAILY diclofenac sodium 1 % gel 1 g topical BID nitroglycerin 0.4 mg tablet, sublingual 0.4 mg sublingual DAILY gabapentin 600 mg tablet 600 mg PO TID albuterol sulfate [Ventolin HFA] 90 mcg/actuation HFA aerosol inhaler 0 mcg inhalation DAILY mupirocin 2 % ointment 1 appl topical TID acetaminophen 500 mg tablet 500 mg PO Q6-8H PRN (Reason: Pain) rosuvastatin 40 mg tablet 40 mg PO DAILY furosemide 20 mg tablet 20 mg PO DAILY amlodipine 10 mg tablet 10 mg PO QAM metoprolol succinate 50 mg tablet extended release 24 hr 50 mg PO DAILY bisacodyl [Dulcolax (bisacodyl)] 5 mg tablet,delayed release (DR/EC) 15 mg PO BEDTIME 30 Days Qty: 90 6RF levothyroxine 125 mcg tablet 125 mcg PO DAILY (DME) CPAP Machine/Device Device See Rx Instructions .Route Rx Instructions: As directed lactulose 20 gram/30 mL solution 20 g PO TID Qty: 3000 6RF Entresto 24-26 mg tablet 1 tab PO BID dapagliflozin propanediol [Farxiga] 10 mg tablet 10 mg PO DAILY Brilinta 90 mg tablet 90 mg PO BID losartan 25 mg tablet 25 mg PO DAILY (DME) CPAP Machine/Device Device See Rx Instructions .Route Rx Instructions: As directed budesonide-formoterol [Symbicort] 160-4.5 mcg/actuation HFA aerosol inhaler 2 puff inhalation BID 30 Days Qty: 10.2 11RF Trelegy Ellipta 200-62.5-25 mcg blister with device 1 inh inhalation DAILY 30 Days Qty: 60 12RF topiramate 25 mg tablet 25 mg PO DAILY venlafaxine 150 mg capsule,extended release 24hr 150 mg PO DAILY isosorbide mononitrate 30 mg tablet extended release 24 hr 30 mg PO DAILY famotidine 20 mg tablet 20 mg PO DAILY Qty: 30 6RF Linzess 290 mcg capsule 290 mcg PO QAM Qty: 30 6RF metoclopramide HCl 10 mg tablet 10 mg PO QID Qty: 120 6RF pantoprazole 40 mg tablet,delayed release (DR/EC) 40 mg PO BID Qty: 60 6RF simethicone [Gas Relief (simethicone)] 180 mg capsule 180 mg PO QID Qty: 120 2RF Creon 24,000-76,000 -120,000 unit capsule,delayed release(DR/EC) 24,000 cap PO BID Qty: 120 6RF Referrals: [facility] [Provider Group] (You have an appointment on 04/05/2024 at 1030am. PLEASE DO NOT MISS THIS APPOINTMENT. Usted tiene lilian thea el 05/04/2024 a las 1030am. POR FAVOR NO FALTE A ESTA THEA.) Mary Rod MD [Primary Care Provider] - Interventions: ED Discharge Assessment Last Done: 03/31/24 15:09 Discharge Date/Time: 03/31/24 15:10 Print Language: Mozambican
--- NOTE | 2024-03-31 08:55 | ECG_ITS ---
Test Reason : fall/dizziness Blood Pressure : / mmHG Vent. Rate : 064 BPM Atrial Rate : 064 BPM P-R Int : 168 ms QRS Dur : 080 ms QT Int : 396 ms P-R-T Axes : 052 029 041 degrees QTc Int : 408 ms Normal sinus rhythm Normal EKG When compared with ECG of 27-SEP-2023 12:40, No significant change was found Referred By: Jesenia Ho Electronically Signed By:IVAN MARIN
[2024-03-31 09:41] LABS: MANUAL DIFF FLAG NO
[2024-03-31 09:44] LABS: Basophils Absolute Auto 0.1 X10*3/uL (0.0-0.2); Basophils Percent Auto 0.6 % (0-2); Eosinophils Absolute Auto 0.2 X10*3/uL (0.0-0.4); Hematocrit 36.8 % (37.0-47.0); Imm Gran Abs Auto 0.03 X10*3/uL (0.00-0.03); Imm Gran Pct Auto 0.4 % (0.0-0.4); Lymphocytes Absolute Auto 1.5 X10*3/uL (1.2-4.9); Lymphocytes Percent Auto 18.1 % (20-40); Mean Corpuscular HGB Conc 32.6 g/dl (31.0-35.0); Mean Corpuscular Volume 95.1 fL (80.0-98.0); Mean Platelet Volume 10.6 fL (9.4-12.3); Monocytes Absolute Auto 0.7 X10*3/uL (0.1-1.2); Monocytes Percent Auto 8.9 % (2-11); Neutrophils Absolute Auto 5.6 x10*3/uL (2.0-8.3); Platelet Count 245 X10*3/uL (160-400); Red Blood Count 3.87 X10*6/uL (4.20-5.50); Red Cell Distribution Width 15.5 % (11.0-16.0); White Blood Count 8.1 X10*3/uL (4.8-10.8)
[2024-03-31 09:58] LABS: Alanine Aminotransferase 17 U/L (0-31); Albumin Level 3.8 g/dL (3.5-5.0); Alkaline Phosphatase 63 U/L (39-117); Anion Gap 10 (12-20); Aspartate Amino Transferase 31 U/L (5-31); Bilirubin Total 0.4 mg/dL (0.0-1.0); Blood Urea Nitrogen 14 mg/dL (9-16); Calcium 9.1 mg/dL (8.4-10.2); Carbon Dioxide 25 mmol/L (22-29); Chloride 109 mmol/L (96-108); Creatinine Clr Calc Pharmacy 38.8; Estimated Glomerular Filt Rate 43; Glucose Random 95 mg/dL (60-115); Potassium 5.3 mmol/L (3.3-5.1); Sodium 139 mmol/L (135-145); Total Protein 6.4 g/dL (6.5-8.0)
[2024-03-31 10:22] LABS: Influenza A PCR NEGATIVE (Negative); Influenza B PCR NEGATIVE (Negative); Resp Syncy Virus RNA Qual PCR NEGATIVE (Negative); SARS COV2 PCR INHOUSE NEGATIVE (Negative)
[2024-03-31] MEDS: Morphine Sulfate 4 MG/ML CARTRIDGE IVPUSH (10:35)
[2024-03-31] MEDS: LORazepam 2 MG/ML VIAL 1 MG IVPUSH (10:35)
[2024-03-31] MEDS: 0.9 % Sodium Chloride 1,000 ML 999 ML IV (10:36)
[2024-03-31] MEDS: fentaNYL citrate/PF 100 MCG/2 ML VIAL 25 MCG IVPUSH (10:38)
--- NOTE | 2024-03-31 10:39 | PC.NURSE ---
notified Jesenia NEWELL of pts cold and purple discolored L hand, gave fentanyl 25mcg IVP immediately for reduction of wrist for improved circulation. improved circulation post reduction.
--- NOTE | 2024-03-31 13:02 | P.CONOP_ITS ---
History of Present Illness HPI Consult date: 03/31/24 Chief complaint: TRIP/FALL,L WRIST PAIN/DEFORMITY,HIT HEAD PER EMS Narrative: Patient is a 73-year-old female who presents to the emergency room after a fall earlier today. Since that time, the patient was noticed a very significant deformity in her left wrist, with associated pain. Patient was evaluated in the emergency department and x-rays were taken, revealing a displaced fracture of the left distal radius. Of note, while she was in the ED, she was noted to have a cold and purple hand, although this improved with attempted reduction of the fracture, however the patient was unable to tolerate further attempted reduction at that time, as she reported intractable pain. Of note, the patient also had a NSTEMI earlier this year, and is on Brilinta for anticoagulation as she has a stent in place. The patient also reports diminished sensation in the left hand. Patient was evaluated with Dr. Peterson in the emergency department. [facility] Past Medical History Medical History Left hip pain Sacroiliac joint pain Elevated liver enzymes Right knee pain Left lumbar radiculitis Lumbago with sciatica Sepsis Right anterior knee pain Nausea and vomiting Candidiasis of mouth and esophagus Dysuria Medication monitoring encounter Abnormal findings on diagnostic imaging of musculoskeletal system Myocardial infarction Asthma ANGIE (obstructive sleep apnea) Diabetes Esophageal dysmotilities Esophageal candidiasis Pneumonia Cystitis Recurrent UTI (urinary tract infection) Vitamin D deficiency Hypothyroidism Osteoporosis B12 deficiency Iron deficiency anemia IBS (irritable bowel syndrome) Family History Family History Father No problems noted. Mother Stomach cancer Diabetes mellitus CVD (cardiovascular disease) Heart attack Arthritis of knee Sister COVID-19 Paternal Aunt Cancer Maternal Aunt Cancer Paternal Uncle Cancer Surgical History Surgical History H/O heart surgery Hx of gastric bypass History of esophagogastroduodenoscopy (EGD) Hx of colonoscopy History of arthroscopy of left shoulder Social History Social History Household Members: Spouse Housing: House Are you a primary lawn care worker to a significant other at home: No Do you presently have visiting nurse or other home services: No (unable to determine) Alcohol intake: never 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 Patient Tobacco Use Status: Never used Tobacco service: No Current occupational status: disabled Meds Allergies Allergy/AdvReac Type Severity Reaction Status Date / Time No Known Allergies Allergy Verified 03/31/24 08:41 [No Known Allergies*] Home Medications ?Medication ?Instructions ?Recorded ?Confirmed ?Last Taken ?Type ascorbic acid (vitamin C) 500 mg 500 mg PO BID 07/17/20 02/12/24 Unknown History tablet (Vitamin C) aspirin 81 mg tablet,delayed 81 mg PO DAILY 07/17/20 02/12/24 10/15/22 History release montelukast 10 mg tablet 10 mg PO BEDTIME 08/10/20 02/12/24 Unknown History blood sugar diagnostic #10 ea 09/12/20 02/12/24 Unknown History clonazepam 1 mg tablet 1 mg PO TID PRN Anxiety 09/12/20 02/12/24 Unknown History dulaglutide 0.75 mg/0.5 mL 0.75 mg subcut QWEEK 09/12/20 02/12/24 10/19/22 History subcutaneous pen injector lancets 33 gauge #100 ea 09/12/20 02/12/24 Unknown History metformin 500 mg tablet,extended 500 mg PO BID 09/12/20 02/12/24 10/20/22 History release 24 hr estradiol 0.01% (0.1 mg/gram) 1 g vaginal 3XW 10/11/20 02/12/24 Unknown History vaginal cream zolpidem 10 mg tablet 1 tab PO BEDTIME 03/20/21 02/12/24 Unknown History acetaminophen 500 mg tablet 500 mg PO Q6-8H PRN Pain 12/02/21 02/12/24 Unknown History albuterol sulfate 90 mcg/actuation 0 mcg inhalation DAILY 12/02/21 02/12/24 Unknown History aerosol inhaler (Ventolin HFA) mupirocin 2 % topical ointment 1 appl topical TID 12/02/21 02/12/24 Unknown History rosuvastatin 40 mg tablet 40 mg PO DAILY 12/02/21 02/12/24 Unknown History ipratropium 0.5 mg-albuterol 3 mg 3 ml inhalation QID 12/17/21 02/12/24 Unknown History (2.5 mg base)/3 mL nebulization soln multivitamin-ferrous 1 tab PO DAILY 12/17/21 02/12/24 Unknown History fumarate-folic acid 18 mg-400 mcg tablet (Certavite-Antioxidant) diclofenac sodium 1 % topical gel 1 g topical BID 02/11/22 02/12/24 Unknown History methenamine hippurate 1 gram tablet 1 g PO DAILY 02/11/22 02/12/24 Unknown History furosemide 20 mg tablet 20 mg PO DAILY 05/27/22 02/12/24 Unknown History amlodipine 10 mg tablet 10 mg PO QAM 10/09/22 02/12/24 10/20/22 History metoprolol succinate 50 mg 50 mg PO DAILY 10/09/22 02/12/24 10/20/22 History tablet,extended release 24 hr gabapentin 600 mg tablet 600 mg PO TID 11/04/22 02/12/24 Unknown History nitroglycerin 0.4 mg sublingual 0.4 mg sublingual DAILY 11/04/22 02/12/24 Unknown History tablet CPAP (CPAP Machine/Device) 03/24/23 02/12/24 Unknown History CPAP (CPAP Machine/Device) 07/31/23 02/12/24 Unknown History levothyroxine 125 mcg tablet 125 mcg PO DAILY 07/31/23 02/12/24 Unknown History dapagliflozin propanediol 10 mg 10 mg PO DAILY 09/30/23 02/12/24 Unknown History tablet (Farxiga) losartan 25 mg tablet 25 mg PO DAILY 09/30/23 02/12/24 Unknown History sacubitril 24 mg-valsartan 26 mg 1 tab PO BID 09/30/23 02/12/24 Unknown History tablet (Entresto) ticagrelor 90 mg tablet (Brilinta) 90 mg PO BID 09/30/23 02/12/24 Unknown History isosorbide mononitrate 30 mg 30 mg PO DAILY 03/24/24 Unknown History tablet,extended release 24 hr topiramate 25 mg tablet 25 mg PO DAILY 03/24/24 Unknown History venlafaxine 150 mg 150 mg PO DAILY 03/24/24 Unknown History capsule,extended release 24 hr Physical Exam 2 Vital Signs: Vital Signs: Last Vital Signs Temp 97.6 F 03/31/24 08:49 Pulse 70 03/31/24 11:18 Resp 16 03/31/24 11:18 BP 123/57 L 03/31/24 11:18 Pulse Ox 97 03/31/24 11:18 O2 Del Method Room Air 03/31/24 11:18 BMI result Body Mass Index 34.7 Extrem: Other: Patient is alert, oriented, and in no acute distress. Neuro: Patient reports diminished sensation in the right hand at this time Vascular: Cap refill brisk Pain: Patient reports very significant tenderness to palpation throughout the entire left hand and wrist, and states that gentle palpation of the fingers of the left causes her very significant pain. Of note, when the patient was distracted, palpation of the fingers does not appear to cause significant discomfort. Skin: No lacerations or abrasions. General: There is ecchymosis noted circumferentially about the left wrist There is noted to be a significant visible deformity in the patient's left wrist No erythema, or evidence of infection. Psych: Appears grossly normal Affect normal Attitude cooperative Results Labs 03/31/24 09:35 03/31/24 09:35 Labs: Abnormal lab results 03/31/24 Range/Units 09:35 RBC 3.87 L (4.20-5.50) X10*6/uL Hct 36.8 L (37.0-47.0) % Lymph % (Auto) 18.1 L (20-40) % Potassium 5.3 H D (3.3-5.1) mmol/L Chloride 109 H (96-108) mmol/L Anion Gap 10 L (12-20) Total Protein 6.4 L (6.5-8.0) g/dL H & H 03/31/24 Range/Units 09:35 Hgb 12.0 (12.0-16.0) g/dl Hct 36.8 L (37.0-47.0) % All other labs normal. Diagnostic results Wrist/Hand x-ray: report reviewed and image reviewed (X-rays obtained in the office today and independently reviewed by me, Gerardo Brizuela PA-C, demonstrate displaced fracture of the left distal radius with significant dorsal angulation of the distal fracture fragment and intra-articular involvement. ) Assessment and Plan (1) Closed fracture of left distal radius: Status: Acute Plan 1. Left distal radius fracture Date of injury 03/31/2024 Patient is evaluated with Dr. Peterson, who is available to see the patient with me in the ED, and a collaborative treatment plan was formed: Closed reduction is to be attempted in the emergency department under conscious sedation to improve alignment of the fracture Patient will require open reduction internal fixation of her left distal radius in the coming few days However, patient is anticoagulated with Brilinta, and per Cardiology, this must be held for at least 3 days prior to surgery Plan is for Brilinta to be held starting Thursday, final dose on Thursday, for surgery on 04/07/2024 I educated the patient about the condition. I discussed both operative and nonoperative treatment options. The patient would like to proceed with surgery. The risks and benefits of operative treatment were discussed with the patient and the patient wishes to proceed with surgery. These risks include, but are not limited to, risk of damage to blood vessels, nerves, tendons, infection, recurrence, incomplete relief of preoperative symptoms, persistent pain, possible need for further surgery, and the risks associated with regional blocks and/or anesthesia. Plan is to take the patient to the operating room at some point in the next few days for the following procedures: 1. Left distal radius ORIF All of the preoperative paperwork was discussed today Patient will follow-up in our clinic with Dr. Peterson on 04/05/2024 for preoperative evaluation Patient was currently anticoagulated with Brilinta, which per cardiology will need to be held for 3 days prior to surgery, last dose Thursday Procedures Date of Service Date of Service: 03/31/24
[2024-03-31] MEDS: propofoL 200 MG/20 ML VIAL 100 MG IVPUSH (13:40)
--- NOTE | 2024-03-31 13:59 | PC.NURSE ---
L wrist reduction under conscious sedation 50 propofol given successful wRory Ba and Dr. Almonte. Patient tolerated procedure well, L arm wrapped, sling to be applied.
== END 2024-03-31 15:10 | disposition home or self-care (01) ==
PROVIDERS: Physician Assistant Medical; Emergency Provider Emergency Medicine; PCP Internal Medicine
DX: S62.102A Fracture of unspecified carpal bone, left wrist, initial encounter for closed fracture (principal); R42 Dizziness and giddiness; R51.9 Headache, unspecified; M54.2 Cervicalgia; M79.602 Pain in left arm; M79.601 Pain in right arm; M25.532 Pain in left wrist; R07.89 Other chest pain; W18.30XA Fall on same level, unspecified, initial encounter; Y93.89 Activity, other specified; Y92.89 Other specified places as the place of occurrence of the external cause; Y99.8 Other external cause status; Z03.818 Encounter for observation for suspected exposure to other biological agents ruled out; Z79.899 Other long term (current) drug therapy
CPT/HCPCS: 0241U; 25605; 29125; 36415; 70450; 71045; 72125; 73030; 73080; 73090; 73110; 73130; 80053; 85025; 93005; 96361; 96374; 96375; 99285; J2060; J2270; J2704; J3010

== ENCOUNTER → 2024-03-31 08:46 | Outpatient (BNV) | payer OTHER, SELFPAY | PROVIDERS: Emergency Provider Emergency Medicine; PCP Internal Medicine | DX: S52.502A Unspecified fracture of the lower end of left radius, initial encounter for closed fracture (principal) | CPT/HCPCS: 99284 ==

== ENCOUNTER → 2024-03-31 08:55 | Outpatient (BNV) | payer OTHER, SELFPAY | PROVIDERS: Emergency Provider Emergency Medicine; PCP Internal Medicine; Visit Provider Internal Medicine | DX: R55 Syncope and collapse (principal) | CPT/HCPCS: 93010 ==

== ENCOUNTER 2024-04-05 09:33 | Outpatient (AMB) | payer OTHER, SELFPAY ==
--- NOTE | 2024-04-05 10:42 | MHC.OFFVIS ---
Vital Signs 04/05/24 10:43 Height 5 ft Weight 177 lb BMI 34.6 Intake Visit Reasons: FC- ED f/u for L distal radius fx Intake Note: Hayley is a 73 yo right hand dominant female who presents today for a fracture care s/p left distal radius fracture, DOI 03/31/24. Patient states she got up and opened the fridge, got dizzy, and fell landing on her out stretched left hand. Patient is currently taking Tramadol for her pain. Reports numbness and tingling throughout the left hand and forearm. She is not able to move her fingers a lot. Patient also complains today the splint is too far back to her elbow and is irritating her skin. Patient denies any surgeries or injuries to the left hand or wrist? Nursing Program Director Required: Yes Nursing Program Director Services: Nursing Program Director Present Nursing Program Director Name: HAMZAH De Los Santos/RADHA Accompanied by: Daughter Allergies No Known Allergies [No Known Allergies*] Allergy (Verified 04/05/24 11:00) HPI HPI FC- ED f/u for L distal radius fx: Details: Hayley is a 73 year old right hand dominant Diabetic Azeri speaking woman who presents for a left distal radius fracture, S/P fall, DOI: 03/31/24. She was seen in the ED the same day where her fracture was reduced and she was placed in a Fibreglass splint. She complains of pain in her left hand & wrist. She says her current splint is causing her pain & irritation near her elbow. She complains of numbness to her left median nerve distribution, since her injury. She denies any numbness prior to her injury. She has a Hx of MO and had a Stent placed earlier this year. She is on Brilinta and has been holding this since Thursday night in order to proceed with surgery. [facility] Medical History (Updated 04/05/24 @ 11:20 by Kalpesh Garcia) Left hip pain Sacroiliac joint pain Elevated liver enzymes Right knee pain Left lumbar radiculitis Lumbago with sciatica Sepsis Right anterior knee pain Nausea and vomiting Candidiasis of mouth and esophagus Dysuria Medication monitoring encounter Abnormal findings on diagnostic imaging of musculoskeletal system Myocardial infarction Asthma ANGIE (obstructive sleep apnea) Diabetes Esophageal dysmotilities Esophageal candidiasis Pneumonia Cystitis Recurrent UTI (urinary tract infection) Vitamin D deficiency Hypothyroidism Osteoporosis B12 deficiency Iron deficiency anemia IBS (irritable bowel syndrome) Surgical History H/O heart surgery Hx of gastric bypass History of esophagogastroduodenoscopy (EGD) Hx of colonoscopy History of arthroscopy of left shoulder Family History Father No problems noted. 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 Patient Tobacco Use Status: Never used Tobacco service: No Current occupational status: disabled Review of Systems Const All systems reviewed & are unremarkable except as noted in HPI and below Physical Exam Vital Signs: BMI result Body Mass Index 34.6 Const General: cooperative, healthy appearing and no acute distress Orientation/consciousness: patient oriented x3 HEENT Head: Yes normocephalic and Yes atraumatic Eyes EOM: EOMs intact bilaterally Resp Effort & Inspection: normal respiratory effort and able to speak in complete sentences Cardio Jugular venous distension: no JVD Skin General skin exam: turgor normal Rashes: no rashes Neuro General: patient oriented x3 Extrem Other: Evaluation of Left Upper Extremity: The patient is alert, oriented, and in no acute distress She is in a sugar-tong splint and a sling which is all clean dry and intact. The sugar-tong splint goes around the thumb and the fingers with just the tips of the finger sticking out. Cap refill is brisk She has dense numbness in the median nerve distribution Radiographs: 3 views of the left wrist from 03/31/24 were reviewed by me. They show a left distal radius fracture with significantly improved alignment following reduction in the emergency department., Psych Appearance: grossly normal Affect: normal affect Attitude: cooperative Assessment & Plan Assessment & Plan (1) Closed fracture of left distal radius: Code(s): S52.502A - Unspecified fracture of the lower end of left radius, initial encounter for closed fracture Category: Medical (2) Numbness and tingling in left hand: Code(s): R20.0 - Anesthesia of skin; R20.2 - Paresthesia of skin Category: Medical (3) Diabetes: Code(s): E11.9 - Type 2 diabetes mellitus without complications Category: Medical (4) Myocardial infarction: Comment: S/P Stent, DOS: 08/2023 Code(s): I21.9 - Acute myocardial infarction, unspecified Category: Medical (5) Current use of anticoagulant therapy: Code(s): 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 Left distal radius fracture, S/P fall DOI: 03/31/24 Seen in ED, reduced, and splinted, on 03/31/24 2. Left hand numbness In the median nerve distribution Began S/P fall, DOI: 03/31/24 I educated her about this condition I discussed operative and non-operative treatment options The patient would like to proceed with surgery The risks and benefits of operative treatment were discussed with the patient and the patient wishes to proceed with surgery. These risks include, but are not limited to risk of damage to blood vessels, nerves, tendons, infection, recurrence, incomplete relief of preoperative symptoms, persistent pain, possible need for further surgery and the risks associated with regional blocks and anesthesia. The plan is to take the patient to the operating room sometime on 04/07/24 for the following procedures: 1. Left distal radius ORIF, under general 2. Left carpal tunnel release, under general All of the preoperative paperwork including the consent was reviewed today. All the patient's questions were answered. The patient understands that they will be contacted by our plastic surgery manager soon to schedule this procedure She denies any lung or kidney issues She is a Diabetic, which is well-controlled She has a Hx of MO, and has a stent. She is on Brilinta, which she has been holding since 04/02/24. This should be held for 3 days prior to surgery She has a Hx of Asthma and ANGIE, which she uses a CPAP machine for. Scribed for Ruth Peterson MD by Kalpesh Garcia, medical videographer, on 04/05/24 at 11:20 AM, EST. Coding Level of Care Code New Pt Level 4 (82143) Diagnoses Closed fracture of left distal radius S52.502A Numbness and tingling in left hand R20.0; R20.2 Diabetes E11.9 Myocardial infarction I21.9 Current use of anticoagulant therapy Z79.01
[2024-04-05 10:43] VITALS: BMI 34.6
== END 2024-04-05 11:55 | disposition home or self-care (01) ==
PROVIDERS: PCP Internal Medicine; Visit Provider Orthopaedic Surgery
DX: S52.502A Unspecified fracture of the lower end of left radius, initial encounter for closed fracture (principal); G56.02 Carpal tunnel syndrome, left upper limb; R20.2 Paresthesia of skin; E11.9 Type 2 diabetes mellitus without complications; I21.9 Acute myocardial infarction, unspecified; Z79.01 Long term (current) use of anticoagulants
CPT/HCPCS: 99214

== ENCOUNTER → 2024-04-05 09:33 | Outpatient (BNVA) | payer OTHER, SELFPAY | PROVIDERS: PCP Internal Medicine; Visit Provider Orthopaedic Surgery | DX: S52.502A Unspecified fracture of the lower end of left radius, initial encounter for closed fracture (principal); W18.39XA Other fall on same level, initial encounter; Y93.F9 Activity, other caregiving; Y92.000 Kitchen of unspecified non-institutional (private) residence as the place of occurrence of the external cause; Y99.9 Unspecified external cause status; R20.0 Anesthesia of skin; R20.2 Paresthesia of skin; E11.9 Type 2 diabetes mellitus without complications; I21.9 Acute myocardial infarction, unspecified; Z95.5 Presence of coronary angioplasty implant and graft; Z79.01 Long term (current) use of anticoagulants | CPT/HCPCS: 99212 ==

== ENCOUNTER 2024-04-07 05:42 | Day surgery (SDC) | payer OTHER, SELFPAY ==
--- NOTE | 2024-04-06 09:35 | P.CONAN_ITS ---
Documented by User: Jessica Martel NP 04/06/24 12:40 HPI - Anesthesia Eval Consult details Narrative: 73yo F for Left Radius Distal Fracture ORIF, Carpal Tunnel Release Follows [facility] Cardiology for CAD with CA s/p stent 08/2023. Last seen 02/2024 for CP. 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 EKG NSR Case reviewed with Dr Scott Anesthesia Pre-Procedure Meds Is the patient on any of the following meds?: GLP1/DPP4 and SGLT2 Inhib PMFSH Active Problems Active Problems: All Active Problems Current use of anticoagulant therapy (Acute) Myocardial infarction (Acute) Numbness and tingling in left hand (Acute) Closed fracture of left distal radius (Acute) Diabetes (Acute) Sacroiliac joint dysfunction (Acute) ANGIE (obstructive sleep apnea) (Acute) Asthma (Acute) Piriformis syndrome of left side (Acute) Anemia (Acute) GERD (gastroesophageal reflux disease) (Acute) Chronic idiopathic constipation (Acute) Dysphagia (Acute) Chronic UTI (urinary tract infection) (Acute) Anastomotic ulcer (Acute) Lumbar spondylosis (Acute) Right lumbar radiculopathy (Acute) Recurrent falls while walking (Acute) Coccygodynia (Acute) Patellofemoral arthralgia of right knee (Acute) Chronic left shoulder pain (Acute) Radiculopathy of cervical spine (Acute) Lumbar degenerative disc disease (Acute) VAZQUEZ (nonalcoholic steatohepatitis) (Acute) Vitamin D deficiency (Acute) Hypothyroidism (Acute) Osteoporosis (Chronic) Past Medical History Medical History (Updated 04/05/24 @ 11:20 by Kalpesh Garcia) Left hip pain Sacroiliac joint pain Elevated liver enzymes Right knee pain Left lumbar radiculitis Lumbago with sciatica Sepsis Right anterior knee pain Nausea and vomiting Candidiasis of mouth and esophagus Dysuria Medication monitoring encounter Abnormal findings on diagnostic imaging of musculoskeletal system Myocardial infarction Asthma ANGIE (obstructive sleep apnea) Diabetes Esophageal dysmotilities Esophageal candidiasis Pneumonia Cystitis Recurrent UTI (urinary tract infection) Vitamin D deficiency Hypothyroidism Osteoporosis B12 deficiency Iron deficiency anemia IBS (irritable bowel syndrome) Family History Family History Father No problems noted. Mother Stomach cancer Diabetes mellitus CVD (cardiovascular disease) Heart attack Arthritis of knee Sister COVID-19 Paternal Aunt Cancer Maternal Aunt Cancer Paternal Uncle Cancer Family history of problems with anesthesia: No Surgical History Surgical History H/O heart surgery Hx of gastric bypass History of esophagogastroduodenoscopy (EGD) Hx of colonoscopy History of arthroscopy of left shoulder History of Problems with Anesthesia: No Social History Social History Household Members: Spouse Housing: House Are you a primary wound care coordinator to a significant other at home: No Do you presently have visiting nurse or other home services: No (unable to determine) Alcohol intake: never 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 Patient Tobacco Use Status: Never used Tobacco service: No Current occupational status: [employer] Allergies Allergy/AdvReac Type Severity Reaction Status Date / Time No Known Allergies Allergy Verified 04/05/24 11:00 [No Known Allergies*] Home Medications ?Medication ?Instructions ?Recorded ?Confirmed ?Last Taken ?Type ascorbic acid (vitamin C) 500 mg 500 mg PO BID 07/17/20 02/12/24 Unknown History tablet (Vitamin C) aspirin 81 mg tablet,delayed 81 mg PO DAILY 07/17/20 02/12/24 10/15/22 History release montelukast 10 mg tablet 10 mg PO BEDTIME 08/10/20 02/12/24 Unknown History blood sugar diagnostic #10 ea 09/12/20 02/12/24 Unknown History clonazepam 1 mg tablet 1 mg PO TID PRN Anxiety 09/12/20 02/12/24 Unknown History dulaglutide 0.75 mg/0.5 mL 0.75 mg subcut QWEEK 09/12/20 02/12/24 10/19/22 History subcutaneous pen injector lancets 33 gauge #100 ea 09/12/20 02/12/24 Unknown History metformin 500 mg tablet,extended 500 mg PO BID 09/12/20 02/12/24 10/20/22 History release 24 hr estradiol 0.01% (0.1 mg/gram) 1 g vaginal 3XW 10/11/20 02/12/24 Unknown History vaginal cream zolpidem 10 mg tablet 1 tab PO BEDTIME 03/20/21 02/12/24 Unknown History acetaminophen 500 mg tablet 500 mg PO Q6-8H PRN Pain 12/02/21 02/12/24 Unknown History albuterol sulfate 90 mcg/actuation 0 mcg inhalation DAILY 12/02/21 02/12/24 Unknown History aerosol inhaler (Ventolin HFA) mupirocin 2 % topical ointment 1 appl topical TID 12/02/21 02/12/24 Unknown History rosuvastatin 40 mg tablet 40 mg PO DAILY 12/02/21 02/12/24 Unknown History ipratropium 0.5 mg-albuterol 3 mg 3 ml inhalation QID 12/17/21 02/12/24 Unknown History (2.5 mg base)/3 mL nebulization soln multivitamin-ferrous 1 tab PO DAILY 12/17/21 02/12/24 Unknown History fumarate-folic acid 18 mg-400 mcg tablet (Certavite-Antioxidant) diclofenac sodium 1 % topical gel 1 g topical BID 02/11/22 02/12/24 Unknown History methenamine hippurate 1 gram tablet 1 g PO DAILY 02/11/22 02/12/24 Unknown History furosemide 20 mg tablet 20 mg PO DAILY 05/27/22 02/12/24 Unknown History amlodipine 10 mg tablet 10 mg PO QAM 10/09/22 02/12/24 10/20/22 History metoprolol succinate 50 mg 50 mg PO DAILY 10/09/22 02/12/24 10/20/22 History tablet,extended release 24 hr gabapentin 600 mg tablet 600 mg PO TID 11/04/22 02/12/24 Unknown History nitroglycerin 0.4 mg sublingual 0.4 mg sublingual DAILY 11/04/22 02/12/24 Unknown History tablet CPAP (CPAP Machine/Device) 03/24/23 02/12/24 Unknown History CPAP (CPAP Machine/Device) 07/31/23 02/12/24 Unknown History levothyroxine 125 mcg tablet 125 mcg PO DAILY 07/31/23 02/12/24 Unknown History dapagliflozin propanediol 10 mg 10 mg PO DAILY 09/30/23 02/12/24 Unknown History tablet (Farxiga) losartan 25 mg tablet 25 mg PO DAILY 09/30/23 02/12/24 Unknown History sacubitril 24 mg-valsartan 26 mg 1 tab PO BID 09/30/23 02/12/24 Unknown History tablet (Entresto) ticagrelor 90 mg tablet (Brilinta) 90 mg PO BID 09/30/23 02/12/24 Unknown History isosorbide mononitrate 30 mg 30 mg PO DAILY 03/24/24 Unknown History tablet,extended release 24 hr topiramate 25 mg tablet 25 mg PO DAILY 03/24/24 Unknown History venlafaxine 150 mg 150 mg PO DAILY 03/24/24 Unknown History capsule,extended release 24 hr Exam Pertinent Lab Results Pertinent Lab Results: Laboratory Tests 03/31/24 09:35 WBC 8.1 Hgb 12.0 Hct 36.8 L Plt Count 245 Sodium 139 Potassium 5.3 H D Chloride 109 H Carbon Dioxide 25 BUN 14 Creatinine 1.23 Narrative Narrative: EKG 03/2024 Vent. Rate : 064 BPM Atrial Rate : 064 BPM P-R Int : 168 ms QRS Dur : 080 ms QT Int : 396 ms P-R-T Axes : 052 029 041 degrees QTc Int : 408 ms Normal sinus rhythm Normal EKG When compared with ECG of 27-SEP-2023 12:40, No significant change was found Assessment and Plan Assessment Anesthesia Assessment: Chart Reviewed Final Anesthetic Review Family History of Problems with Anesthesia: No History of Problems with Anesthesia: No Documented by User: Jean Paul Cantu MD 04/07/24 08:30 [facility] Past Medical History Medical History (Updated 04/05/24 @ 11:20 by Kalpesh Garcia) Left hip pain Sacroiliac joint pain Elevated liver enzymes Right knee pain Left lumbar radiculitis Lumbago with sciatica Sepsis Right anterior knee pain Nausea and vomiting Candidiasis of mouth and esophagus Dysuria Medication monitoring encounter Abnormal findings on diagnostic imaging of musculoskeletal system Myocardial infarction Asthma ANGIE (obstructive sleep apnea) Diabetes Esophageal dysmotilities Esophageal candidiasis Pneumonia Cystitis Recurrent UTI (urinary tract infection) Vitamin D deficiency Hypothyroidism Osteoporosis B12 deficiency Iron deficiency anemia IBS (irritable bowel syndrome) Family History Family History Father No problems noted. 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: never 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 Patient Tobacco Use Status: Never used Tobacco service: No Current occupational status: [employer] Allergies Allergy/AdvReac Type Severity Reaction Status Date / Time No Known Allergies Allergy Verified 04/05/24 11:00 [No Known Allergies*] Home Medications ?Medication ?Instructions ?Recorded ?Confirmed ?Last Taken ?Type ascorbic acid (vitamin C) 500 mg 500 mg PO BID 07/17/20 02/12/24 Unknown History tablet (Vitamin C) aspirin 81 mg tablet,delayed 81 mg PO DAILY 07/17/20 02/12/24 10/15/22 History release montelukast 10 mg tablet 10 mg PO BEDTIME 08/10/20 02/12/24 Unknown History blood sugar diagnostic #10 ea 09/12/20 02/12/24 Unknown History clonazepam 1 mg tablet 1 mg PO TID PRN Anxiety 09/12/20 02/12/24 Unknown History dulaglutide 0.75 mg/0.5 mL 0.75 mg subcut QWEEK 09/12/20 02/12/24 10/19/22 History subcutaneous pen injector lancets 33 gauge #100 ea 09/12/20 02/12/24 Unknown History metformin 500 mg tablet,extended 500 mg PO BID 09/12/20 02/12/24 10/20/22 History release 24 hr estradiol 0.01% (0.1 mg/gram) 1 g vaginal 3XW 10/11/20 02/12/24 Unknown History vaginal cream zolpidem 10 mg tablet 1 tab PO BEDTIME 03/20/21 02/12/24 Unknown History acetaminophen 500 mg tablet 500 mg PO Q6-8H PRN Pain 12/02/21 02/12/24 Unknown History albuterol sulfate 90 mcg/actuation 0 mcg inhalation DAILY 12/02/21 02/12/24 Unknown History aerosol inhaler (Ventolin HFA) mupirocin 2 % topical ointment 1 appl topical TID 12/02/21 02/12/24 Unknown History rosuvastatin 40 mg tablet 40 mg PO DAILY 12/02/21 02/12/24 Unknown History ipratropium 0.5 mg-albuterol 3 mg 3 ml inhalation QID 12/17/21 02/12/24 Unknown History (2.5 mg base)/3 mL nebulization soln multivitamin-ferrous 1 tab PO DAILY 12/17/21 02/12/24 Unknown History fumarate-folic acid 18 mg-400 mcg tablet (Certavite-Antioxidant) diclofenac sodium 1 % topical gel 1 g topical BID 02/11/22 02/12/24 Unknown History methenamine hippurate 1 gram tablet 1 g PO DAILY 02/11/22 02/12/24 Unknown History furosemide 20 mg tablet 20 mg PO DAILY 05/27/22 02/12/24 Unknown History amlodipine 10 mg tablet 10 mg PO QAM 10/09/22 02/12/24 10/20/22 History metoprolol succinate 50 mg 50 mg PO DAILY 10/09/22 02/12/24 10/20/22 History tablet,extended release 24 hr gabapentin 600 mg tablet 600 mg PO TID 11/04/22 02/12/24 Unknown History nitroglycerin 0.4 mg sublingual 0.4 mg sublingual DAILY 11/04/22 02/12/24 Unknown History tablet CPAP (CPAP Machine/Device) 03/24/23 02/12/24 Unknown History CPAP (CPAP Machine/Device) 07/31/23 02/12/24 Unknown History levothyroxine 125 mcg tablet 125 mcg PO DAILY 07/31/23 02/12/24 Unknown History dapagliflozin propanediol 10 mg 10 mg PO DAILY 09/30/23 02/12/24 Unknown History tablet (Farxiga) losartan 25 mg tablet 25 mg PO DAILY 09/30/23 02/12/24 Unknown History sacubitril 24 mg-valsartan 26 mg 1 tab PO BID 09/30/23 02/12/24 Unknown History tablet (Entresto) ticagrelor 90 mg tablet (Brilinta) 90 mg PO BID 09/30/23 02/12/24 Unknown History isosorbide mononitrate 30 mg 30 mg PO DAILY 03/24/24 Unknown History tablet,extended release 24 hr topiramate 25 mg tablet 25 mg PO DAILY 03/24/24 Unknown History venlafaxine 150 mg 150 mg PO DAILY 03/24/24 Unknown History capsule,extended release 24 hr Exam Airway Mallampati Class: II TM Dist: >3cm Neck ROM: Full Denture: Upper and Lower Heart: ok. see above. Lungs: ok Assessment and Plan Assessment Anesthesia Assessment: Anesthesia Plan Discussed Final Anesthetic Review NPO: Yes ASA Class: IV Final Preanesthetic Review: No Changes in Pt Med Stat, Meds/Allgs Chart Reviewed, Consent Obtained/Reviewed and Anes Risks/Benef Reviewed Patient Risk: High Procedure Risk: Low Anesthetic Plan Anesthetic Plan: GA, Regional Block and Agree w/ Assess. and Plan Disposition: Standard PACU
[2024-04-07] VITALS (8 sets, daily range): BP systolic 129–153; BP diastolic 52–80; PULSE 72–87; RESP 16–18; TEMP 36.3–36.5; O2SAT 94–99; BMI 24.2
[2024-04-07] MEDS: Lactated Ringers 1,000 ML 100 ML IVCONT (06:48)
[2024-04-07 06:49] LABS: Glucose, Whole Blood 110 mg/dL (60-115)
--- NOTE | 2024-04-07 07:42 | MHC.SHP ---
Pre-Procedural Eval Section A - 24 Hr Update-Section A only Date of Service: 04/07/24 The patient is an INPATIENT: No Changes since office visit: No Cold of Flu in the past 2 weeks, No New Medical Problems, No Changes in Medication and No Patient answered all questions The patient has been examined within 24 hours of the surgical procedure. The History & Physical has been completed within 30 days and I have reviewed it.: Yes Section B - Complete if H&P > 30 days Chief Complaint: fracture of the lower end of left,carpal tunnel Allergies: Allergies Allergy/AdvReac Type Severity Reaction Status Date / Time No Known Allergies Allergy Verified 04/05/24 11:00 [No Known Allergies*] Plan I have reviewed the history and physical and performed a pertinent physical examination on my patient. No changes have occurred unless specified. Time Spent With Patient Time: Total time managing care of this patient today ____ minutes.
--- NOTE | 2024-04-07 07:43 | W.PM.OPN ---
Operative Note Operative Note Date of Service: 04/07/24 Narrative: Operative Note Narrative: Preop diagnosis: 1. Left Distal radius fracture, intra-articular 2. Left ulnar styloid fracture 3. 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 Left Distal radius fracture open reduction internal fixation , 2 part intra-articular 2. Left DRUJ reduction and percutaneous pinning 3. Left carpal tunnel release Surgeon: Ruth Peterson MD Family Member Caretaker: Gerardo NEWELL Anesthesia: General anesthesia plus regional block Findings: DRUJ instability when tested after fixation of the distal radius. Implants: A 3 hole Accu Med volar locking plate, with 5 X 2.3 mm locking pegs/screws, and 3 x 3.5 mm cortical screws, and one 0.062 K-wire Tourniquet time: 75 minutes EBL: 5.0 ml Specimen: None Drains: None Complications: None Disposition: Brought to the recovery room in stable condition Plan: Follow-up in 10-14 days for wound check, suture removal and postop radiographs. Please note patient unable to pronate because of K-wire across DRUJ. The patient will be placed in a [place] cast with the wrist at supination. Anticipate removal of the [place] cast in K-wire at 5 weeks postop Encouraged no lifting of anything heavier than a cell phone. Please encourage active and passive range of motion of the digits. Indications: The patient is a 73 year old left woman with a distal radius fracture . The risks and benefits of operative treatment, including but not limited to risk of damage to blood vessels, nerves, tendons, infection, recurrence, persistent pain or numbness, incomplete resolution of preoperative symptoms, or need for further surgery were discussed with the patient and they wished to proceed with surgery. Procedure: Once consent was obtained patient was brought back to the operating suite and placed in the operating table in a supine position. A regional block was performed by the anesthesia team. Perioperative antibiotics and anesthesia was administered by the anesthesia team. A tourniquet was applied to the proximal aspect of the left upper extremity and the limb was prepped and draped in a standard surgical fashion. The limb was elevated exsanguinated with Esmarch bandage and the tourniquet inflated to 250 mm of mercury for a total tourniquet time of 75 minutes. The FluoroScan was used throughout the case to assess our reduction, and facilitate implant placement. A gentle closed reduction was 1st performed on the patient's left distal radius fracture. Was assessed radiographically before proceeding with the reduction internal fixation. I then made an 8 cm longitudinal incision over the distal aspect of the flexor carpi radialis tendon. The incision was made through the skin to the subcutaneous tissue using a 15. Blade. Then carefully dissected down to flexor carpi radialis tendon she tenotomy scissors. The FCR tendon sheath was then incised longitudinally using tenotomy scissors under direct visualization. The FCR tendon was then retracted ulnarly. I then made a longitudinal incision in the volar forearm fascia through the floor of FCR tendon sheath using tenotomy scissors under direct visualization. I identified the interval between the radial artery and the flexor tendons. This interval was developed further with my index finger, releasing some of the muscular fibers of the flexor pollicis longus. A dull weatlander retractor was then placed. I then created an ulnarly based flap of the pronator quadratus by releasing the radial and distal edges using a 15. Blade. A King elevator was used to elevate the pronator quadratus from the volar surface of the distal radius. This then revealed to us our distal radius fracture. The fracture also had an intra-articular split that was fairly stable. The fracture line also extended very distally as we proceeded towards the ulnar facet. I released the brachioradialis tendon from its insertion in the radial styloid to facilitate our reduction. An open reduction was then performed on our distal radius fracture. I secured it temporarily with a single retrograde 0.062 K-wire that was placed through the radial styloid, and advanced retrograde and obliquely across the fracture site. I then placed a short narrow [facility] on the volar surface of the distal radius. I placed 2 K-wires through the distal aspect of the plate and into the distal radius. This was assessed using fluoroscopic images. I was satisfied with the placement of our plate. I then placed 5 X 2.3 mm locking screws/pegs in the distal aspect of the plate and distal radius by 1st drilling bicortically with a 1.8 mm drill bit, measuring with a depth gauge, and placing the appropriate length locking screws/pegs. The placement of our plate and screws was then assessed again using fluoroscopic images. The once satisfied with the placement of the volar locking plate and screws on the distal aspect of the distal radius, the plate was then reduced to the shaft of the radius. I then placed 3 3.5 mm cortical screws to the proximal aspect of the plate and into the shaft of the radius. This was done by 1st drilling bicortically with a 2.8 mm drill bit, measuring with a depth gauge, and placing the appropriate length screw. The temporary K-wire through the radial styloid was removed prior to tightening of the 1st cortical screw in the shaft. Radiographs were then obtained. The DRUJ was assessed and found to be unstable on exam. I then placed the wrist into supination and placed a single 0.062 K-wire transversely through the head of the ulna, across the DRUJ and then across the metaphysis of the distal radius to secure our DRUJ. I was satisfied with our reduction and placement of all implants. The K-wire was then bent cut short had a pin cap applied. Final radiographs were then obtained. A 2.0 cm longitudinal incision was made centered over the left carpal tunnel. The incision was made through the skin to the subcutaneous tissues using a #15 blade. Dissection was made down to the level of the transverse carpal ligament with care being taken to protect the palmar cutaneous nerve. Once the transverse carpal ligament was clearly visualized, a longitudinal incision was made in the transverse carpal ligament 1st using a #15 blade, then using tenotomy scissors under direct visualization. Care was taken to look for and protect the motor branch of the median nerve when seen in this area. Once satisfied with our carpal tunnel release the wound was irrigated with normal saline. At this point the wounds were irrigated with normal saline. The tourniquet was then deflated and hemostasis was obtained with a brief period of local pressure and bipolar monopolar electrocautery. The subcutaneous layer was then reapproximated using some 4-0 Vicryl suture, and the skin edges were reapproximated using some 5 0 Prolene suture. The wounds were then infiltrated with some 1% lidocaine with epinephrine postop pain control. A sterile dressing and a sugar-tong splint holding the wrist in supination, and allowing for active flexion and extension of the digits was applied. The patient appears to have tolerated the procedure well and with no complications. All digits were well vascularized conclusion of the case.
[2024-04-07] MEDS: fentaNYL citrate/PF 100 MCG/2 ML VIAL 25 MCG IVPUSH (10:26)
== END 2024-04-07 12:05 | disposition home or self-care (01) ==
PROVIDERS: PCP Internal Medicine; Visit Provider Orthopaedic Surgery
PROC: (CPT 25608; principal; 2024-04-07 07:30)
PROC: (CPT 64721; 2024-04-07 07:30)
DX: S52.572A Other intraarticular fracture of lower end of left radius, initial encounter for closed fracture (principal); S52.612A Displaced fracture of left ulna styloid process, initial encounter for closed fracture; W01.0XXA Fall on same level from slipping, tripping and stumbling without subsequent striking against object, initial encounter; Y93.89 Activity, other specified; Y92.000 Kitchen of unspecified non-institutional (private) residence as the place of occurrence of the external cause; Y99.9 Unspecified external cause status; M25.332 Other instability, left wrist; G56.02 Carpal tunnel syndrome, left upper limb; R20.0 Anesthesia of skin; R20.2 Paresthesia of skin; E11.9 Type 2 diabetes mellitus without complications; I21.9 Acute myocardial infarction, unspecified; Z95.5 Presence of coronary angioplasty implant and graft; J45.909 Unspecified asthma, uncomplicated; G47.33 Obstructive sleep apnea (adult) (pediatric); Z79.01 Long term (current) use of anticoagulants; Z79.82 Long term (current) use of aspirin; Z79.84 Long term (current) use of oral hypoglycemic drugs; Z79.85 Long-term (current) use of injectable non-insulin antidiabetic drugs; Z79.899 Other long term (current) drug therapy; Z99.89 Dependence on other enabling machines and devices; Z98.84 Bariatric surgery status; Z98.890 Other specified postprocedural states
CPT/HCPCS: 25608; 25651; 64721; 82947; C1713; J0131; J0665; J0690; J1100; J2003; J2004; J2250; J2371; J2704; J3010

== ENCOUNTER → 2024-04-07 05:42 | Outpatient (BNV) | payer OTHER, SELFPAY | PROVIDERS: PCP Internal Medicine; Visit Provider Orthopaedic Surgery | DX: G56.02 Carpal tunnel syndrome, left upper limb (principal); S52.572A Other intraarticular fracture of lower end of left radius, initial encounter for closed fracture | CPT/HCPCS: 25608; 64721 ==

== ENCOUNTER 2024-04-07 06:16 | Outpatient (REF) | payer OTHER, SELFPAY | END 2024-04-07 06:17 | disposition home or self-care (01) | LOC: CF 06:16 | PROVIDERS: Visit Provider Internal Medicine | DX: Z13.89 Encounter for screening for other disorder (principal) ==

== ENCOUNTER 2024-04-08 11:01 | Outpatient (AMB) | payer OTHER, SELFPAY ==
--- NOTE | 2024-04-08 11:04 | A.OFFVIS_ITS ---
Intake Visit Reasons: PO-Lt Distal Rad ORIF 04/04/24 Intake Note: Hayley is a 73 year old female that presents in the office today for her first post operative appointment. Patient states the she is in extreme pain. Patient states that the kumar meds helps a little, but her arms is rubbing against the cast and its causes her not to sleep. Director Social Service Required: Yes Director Social Service Language: Global Position System Technician Services: Director Social Service Present Director Social Service Name: Magali CAROLA/RADHA Allergies No Known Allergies [No Known Allergies*] Allergy (Verified 04/08/24 11:10) HPI HPI PO-Lt Distal Rad ORIF 04/04/24: Details: Patient is a 73-year-old female who presents for splint change status post left distal radius ORIF, DOS 04/04/[address] Peterson. The patient states that the splint has been digging into her elbow, and this is causing her extreme discomfort and causing her to lose sleep. The patient reports that her pain at the surgery site by comparison is quite minimal. The patient states that the pain medication she was prescribed after surgery did help with her postoperative pain in her wrist, but did not help with the pain in her elbow. No other acute complaints or concerns at this time. [facility] Medical History (Updated 04/05/24 @ 11:20 by Kalpesh Garcia) Left hip pain Sacroiliac joint pain Elevated liver enzymes Right knee pain Left lumbar radiculitis Lumbago with sciatica Sepsis Right anterior knee pain Nausea and vomiting Candidiasis of mouth and esophagus Dysuria Medication monitoring encounter Abnormal findings on diagnostic imaging of musculoskeletal system Myocardial infarction Asthma ANGIE (obstructive sleep apnea) Diabetes Esophageal dysmotilities Esophageal candidiasis Pneumonia Cystitis Recurrent UTI (urinary tract infection) Vitamin D deficiency Hypothyroidism Osteoporosis B12 deficiency Iron deficiency anemia IBS (irritable bowel syndrome) Surgical History H/O heart surgery Hx of gastric bypass History of esophagogastroduodenoscopy (EGD) Hx of colonoscopy History of arthroscopy of left shoulder Family History Father No problems noted. 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 Neuro: Normal sensation of the tips of all digits of the L hand at this time Vascular: Cap refill brisk Pain: Patient reports very mild tenderness to palpation about the volar aspect of her left wrist The patient does report significant tenderness to palpation along the flexor surface and medial and lateral epicondyles of the left elbow, where there is significant irritation. Skin: Well approximated and well healing incision site noted on the volar aspect of the left wrist General: There is some erythematous irritation noted on the patient's left elbow in the area where the splint was irritating her skin. Psych: Appears grossly normal Affect normal Attitude cooperative Office Procedures Casting/Splints 05466-[place] Splint Application Procedure code (CPT) selection complete Assessment & Plan Assessment & Plan (1) Closed fracture of left distal radius: Code(s): S52.502A - Unspecified fracture of the lower end of left radius, initial encounter for closed fracture Category: Medical Plan 1. Left distal radius fracture status post ORIF 2. Left carpal tunnel syndrome status post carpal tunnel release DOS 04/04/[address] Peterson Splint changed in office today Patient reports that this is much more comfortable Patient was advised that she should continue to keep the splint clean, dry, intact just as she had the last 1 Patient expresses understanding of this Patient should keep previously scheduled postoperative appointment for re- evaluation and placement into a cast Coding Level of Care Code Global (10195) Diagnoses Closed fracture of left distal radius S52.502A CPT Codes Splint - CPT: 13317-Pjsazae Splint Application ([id number])
== END 2024-04-08 12:16 | disposition home or self-care (01) ==
PROVIDERS: PCP Internal Medicine
DX: S52.502A Unspecified fracture of the lower end of left radius, initial encounter for closed fracture (principal)
CPT/HCPCS: 29125; 99024

== ENCOUNTER → 2024-04-08 11:01 | Outpatient (BNVA) | payer OTHER, SELFPAY | PROVIDERS: PCP Internal Medicine | DX: S52.502A Unspecified fracture of the lower end of left radius, initial encounter for closed fracture (principal) | CPT/HCPCS: 99212 ==

== ENCOUNTER 2024-04-19 13:27 | Outpatient (REF) | payer OTHER, SELFPAY ==
--- NOTE | ~2024-04-19 | XR_ITS ---
EXAMINATION: XR WRIST LEFT 3 VIEWS CLINICAL INFORMATION: Pain in left wrist M25.532. COMPARISON: XR Left wrist 03/31/2024. TECHNIQUE: PA, lateral, and oblique views of the left wrist. FINDINGS: Distal radial stabilization plate with fixation screws. Orthopedic pin extending through the distal radius and distal ulna. No hardware fracture or perihilar where lucency to suggest loosening or infection. The previously seen distal radial fractures in improved anatomic alignment. Ulnar styloid fracture is redemonstrated. No new fracture or dislocation. Atherosclerotic calcifications. Mild circumferential soft tissue swelling. XR/XR wrist LT w scaphoid IMPRESSION: 1. Distal radial ORIF without evidence of hardware complication. Distal radial and ulnar fractures in improved anatomic alignment. 2. Ulnar styloid fracture redemonstrated. 3. Mild circumferential soft tissue swelling. Electronically signed by: Vance Manzano MD 06/24/2024 09:26 AM VLADISLAV SHORT
== END 2024-04-19 13:28 | disposition home or self-care (01) ==
LOC: HO.HOSX 13:27
PROVIDERS: PCP Internal Medicine
DX: M25.532 Pain in left wrist (principal); S52.502D Unspecified fracture of the lower end of left radius, subsequent encounter for closed fracture with routine healing; R20.0 Anesthesia of skin; Z98.890 Other specified postprocedural states
CPT/HCPCS: 29075; 73110; 99212

== ENCOUNTER 2024-04-19 13:27 | Outpatient (AMB) | payer OTHER, SELFPAY ==
--- NOTE | 2024-04-19 13:28 | A.OFFVIS_ITS ---
Intake Visit Reasons: PO-Lt Distal Rad ORIF 04/04/24 Intake Note: Hayley is a 73 year old right hand dominant female who presents today for a post operative visit s/p left distal radius fracture ORIF, left DRUJ reduction and percutaneous pinning, and left carpal tunnel release w/ Dr Peterson DOS: 04/07/2024. Patient reports that she is doing well, she still complains of pain in the arm. Denies numbness and tingling. Splint removed. reports that she ran out of medication Aircraft Instrument Tester Required: Yes Aircraft Instrument Tester Language: Pyrometer Temperature Regulator Name: Denia Barnes [id number] Allergies No Known Allergies [No Known Allergies*] Allergy (Verified 05/04/24 13:04) HPI HPI PO-Lt Distal Rad ORIF 04/04/24: Details: Patient is a 73-year-old female who presents for postoperative evaluation status post left distal radius ORIF and CRPP of DRUJ of the left wrist, DOS 04/04/[address] Peterson. Today, the patient reports that she is feeling better, but she is still experiencing significant pain in her left wrist. Patient reports that her new splint that was placed approximately 1 week ago is much more comfortable in the last one. Patient reports that she has been largely not moving the hand since previous evaluation. No numbness or tingling in the left hand. No other acute complaints or concerns at this time. [facility] Medical History (Updated 04/05/24 @ 11:20 by Kalpesh Garcia) Left hip pain Sacroiliac joint pain Elevated liver enzymes Right knee pain Left lumbar radiculitis Lumbago with sciatica Sepsis Right anterior knee pain Nausea and vomiting Candidiasis of mouth and esophagus Dysuria Medication monitoring encounter Abnormal findings on diagnostic imaging of musculoskeletal system Myocardial infarction Asthma ANGIE (obstructive sleep apnea) Diabetes Esophageal dysmotilities Esophageal candidiasis Pneumonia Cystitis Recurrent UTI (urinary tract infection) Vitamin D deficiency Hypothyroidism Osteoporosis B12 deficiency Iron deficiency anemia IBS (irritable bowel syndrome) Surgical History H/O heart surgery Hx of gastric bypass History of esophagogastroduodenoscopy (EGD) Hx of colonoscopy History of arthroscopy of left shoulder Family History Father No problems noted. 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 Neuro: Normal sensation of the tips of all digits of the L hand at this time Vascular: Cap refill brisk Pain: Patient reports very mild tenderness to palpation about the volar aspect of her left wrist The patient does report continued tenderness to palpation along the flexor surface and medial and lateral epicondyles of the left elbow, where there is irritation, but this has improved since last visit Skin: Well approximated and well healing incision site noted on the volar aspect of the left wrist General: There is some erythematous irritation noted on the patient's left elbow in the area where the splint was irritating her skin. Mild erythema also around the pin site Psych: Appears grossly normal Affect normal Attitude cooperative Office Procedures Casting/Splints Details: [place] cast 15137-Dotw[employer]z Cast Application Procedure code (CPT) selection complete Results Reviewed Results Reviewed: X-rays obtained in the office today and independently reviewed by me, Gerardo Brizuela PA-C, demonstrate surgically corrected fracture of the left distal radius in satisfactory clinical alignment and with all orthopedic hardware in place. Pin also noted to be in place across the DRUJ of the left wrist. Assessment & Plan Assessment & Plan (1) Closed fracture of left distal radius: Code(s): S52.502A - Unspecified fracture of the lower end of left radius, initial e ncounter for closed fracture Category: Medical (2) Numbness and tingling in left hand: Code(s): R20.0 - Anesthesia of skin; R20.2 - Paresthesia of skin Category: Medical Plan 1. Fracture of the left distal radius status post ORIF DOS 04/04/2024 Patient appears to be recovering moderately well postoperatively Patient is educated about the typical recovery course At this time, patient will be placed into a [place] cast to allow for flexion and extension of the elbow without allowing for pronation or supination in order to prevent snapping of the pin across the DRUJ of her right wrist Patient was amenable to this plan Patient is educated about proper cast care and precautions In the meantime, patient was educated that she should continue to attempt movement of her right hand, particularly of the fingers, to prevent stiffness Patient was amenable to this plan Patient will follow-up in 2 weeks with repeat x-rays, sooner with any acute concerns Orders: Orders XR wrist LT w scaphoid 04/19/24 M25.532 - Pain in left wrist Coding Level of Care Code Global (62863) Diagnoses Closed fracture of left distal radius S52.502A Numbness and tingling in left hand R20.0; R20.2 CPT Codes Casting - CPT: 48559-[place] Cast Application ([id number])
== END 2024-04-19 15:23 | disposition home or self-care (01) ==
LOC: HO.HOS 13:28
PROVIDERS: PCP Internal Medicine
DX: S52.502A Unspecified fracture of the lower end of left radius, initial encounter for closed fracture (principal)
CPT/HCPCS: 29075; 99024

== ENCOUNTER 2024-05-04 07:54 | Outpatient (REF) | payer OTHER, SELFPAY | END 2024-05-04 07:55 | disposition home or self-care (01) | LOC: HO.HOSX 07:54 | DX: M25.532 Pain in left wrist (principal); S52.502A Unspecified fracture of the lower end of left radius, initial encounter for closed fracture; R20.0 Anesthesia of skin; Z98.890 Other specified postprocedural states | CPT/HCPCS: 73110; 99212 ==

== ENCOUNTER 2024-05-04 12:42 | Outpatient (AMB) | payer OTHER, SELFPAY ==
--- NOTE | 2024-05-04 13:04 | A.OFFVIS_ITS ---
Intake Visit Reasons: PO-Lt Distal Rad/Ulnar Styloid ORIF & CTR04/07/24 Intake Note: Hayley is a 73 year old right hand dominant female who presents today for a post operative visit s/p left distal radius fracture ORIF, left DRUJ reduction and percutaneous pinning, and left carpal tunnel release w/ Dr Peterson DOS: 04/07/2024. Pt states she is still having a lot pain in her wrist and palm as well as some pain in her elbow. Water Plant Pump Operator Supervisor Required: Yes Water Plant Pump Operator Supervisor Language: Adoption Coordinator Services: Water Plant Pump Operator Supervisor Present Water Plant Pump Operator Supervisor Name: Candida([phone]) Allergies No Known Allergies [No Known Allergies*] Allergy (Verified 05/04/24 13:04) HPI HPI PO-Lt Distal Rad/Ulnar Styloid ORIF & CTR04/07/24: Details: Patient is a 73-year-old female who presents for postoperative evaluation status post left distal radius ORIF and CRPP of DRUJ of the left wrist, DOS 04/04/[address] Peterson. Today, the patient reports that she is feeling better, but she is still experiencing significant pain in her left wrist, extending all the way down to proximal forearm left. No numbness or tingling in the left hand. No other acute complaints or concerns at this time. [facility] Medical History (Updated 04/05/24 @ 11:20 by Kalpesh Garcia) Left hip pain Sacroiliac joint pain Elevated liver enzymes Right knee pain Left lumbar radiculitis Lumbago with sciatica Sepsis Right anterior knee pain Nausea and vomiting Candidiasis of mouth and esophagus Dysuria Medication monitoring encounter Abnormal findings on diagnostic imaging of musculoskeletal system Myocardial infarction Asthma ANGIE (obstructive sleep apnea) Diabetes Esophageal dysmotilities Esophageal candidiasis Pneumonia Cystitis Recurrent UTI (urinary tract infection) Vitamin D deficiency Hypothyroidism Osteoporosis B12 deficiency Iron deficiency anemia IBS (irritable bowel syndrome) Surgical History H/O heart surgery Hx of gastric bypass History of esophagogastroduodenoscopy (EGD) Hx of colonoscopy History of arthroscopy of left shoulder Family History Father No problems noted. 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 Neuro: Normal sensation of the tips of all digits of the L hand at this time Vascular: Cap refill brisk Pain: Patient reports very mild tenderness to palpation about the volar aspect of her left wrist The patient does report continued tenderness to palpation along the flexor surface and medial and lateral epicondyles of the left elbow, where there is irritation, but this has improved since last visit Skin: Well approximated and well healing incision site noted on the volar aspect of the left wrist General: There is some erythematous irritation noted on the patient's left elbow in the area where the splint was irritating her skin. Mild erythema also around the pin site Of note, there does appear to be some granulation tissue that has started to form around the pin, as well as some dry and skin Psych: Appears grossly normal Affect normal Attitude cooperative Results Reviewed Results Reviewed: X-rays obtained in the office today and independently reviewed by me, Gerardo Brizuela PA-C, demonstrate surgically corrected fracture of the left distal radius in satisfactory clinical alignment and with all orthopedic hardware in place. Pin also noted to be in place across the DRUJ of the left wrist. Assessment & Plan Assessment & Plan (1) Closed fracture of left distal radius: Code(s): S52.502A - Unspecified fracture of the lower end of left radius, initial encounter for closed fracture Category: Medical (2) Numbness and tingling in left hand: Code(s): R20.0 - Anesthesia of skin; R20.2 - Paresthesia of skin Category: Medical Plan 1. Fracture of the left distal radius status post ORIF DOS 04/04/2024 Patient is evaluated with Dr. Peterson, and a collaborative treatment plan was formed: Patient appears to be recovering moderately well postoperatively Patient is educated about the typical recovery course DRUJ pin pulled today Due to mild surrounding erythema of the pin site, patient's Augmentin prescription is refill Patient was amenable to this plan Patient was placed into a short-arm cast at this time, and is educated that she should not be doing any aggressive pronation or supination, but rather can begin to very gently pronate and supinate the left wrist Patient is educated about proper cast care and precautions In the meantime, patient was educated that she should continue to attempt movement of her right hand, particularly of the fingers, to prevent stiffness Patient was amenable to this plan Patient will follow-up in [address] Peterson with repeat x-rays, sooner with any acute concerns Orders: Orders XR wrist LT min 3V Today M25.532 - Pain in left wrist Medications: Refilled amoxicillin-pot clavulanate 875-125 mg 1 tab PO BID 14 days 28 tabs 0RF Coding Level of Care Code Global (05761) Diagnoses Closed fracture of left distal radius S52.502A Numbness and tingling in left hand R20.0; R20.2
== END 2024-05-04 14:01 | disposition home or self-care (01) ==
PROVIDERS: PCP Internal Medicine
DX: S52.502A Unspecified fracture of the lower end of left radius, initial encounter for closed fracture (principal); R20.0 Anesthesia of skin; R20.2 Paresthesia of skin
CPT/HCPCS: 99024

== ENCOUNTER 2024-05-18 09:00 | Outpatient (REF) | payer OTHER, SELFPAY | END 2024-05-18 09:01 | disposition home or self-care (01) | LOC: HO.HOSX 09:00 | PROVIDERS: Visit Provider Orthopaedic Surgery | DX: M25.532 Pain in left wrist (principal); S62.502A Fracture of unspecified phalanx of left thumb, initial encounter for closed fracture; S52.615S Nondisplaced fracture of left ulna styloid process, sequela; G56.02 Carpal tunnel syndrome, left upper limb; M25.339 Other instability, unspecified wrist; E11.9 Type 2 diabetes mellitus without complications | CPT/HCPCS: 73110; 97140; 99212 ==

== ENCOUNTER 2024-05-18 09:46 | Outpatient (AMB) | payer OTHER, SELFPAY ==
--- NOTE | 2024-05-18 10:06 | A.OFFVIS_ITS ---
Vital Signs 05/18/24 10:32 Height 5 ft Weight 140 lb BMI 27.3 Intake Visit Reasons: PO-Lt Distal Rad/Ulnar Styloid ORIF & CTR 04/07/24 Intake Note: Hayley is a 73 year old right hand dominant female who presents today postoperatively for a ROM check s/p left distal radius and ulnar styloid ORIF, left carpal tunnel release by Dr. Peterson, DOS: 04/07/2024. Patient reports she is still having pain especially in the night time. Cast removed and xrays updated. Allergies No Known Allergies [No Known Allergies*] Allergy (Verified 05/18/24 10:48) HPI HPI PO-Lt Distal Rad/Ulnar Styloid ORIF & CTR 04/07/24: Details: Hayley is a 73 year old right hand dominant Diabetic Syriac speaking woman who presents S/P left distal radius ORIF, DRUJ pinning, and carpal tunnel release, DOS: 04/07/24. She fell while at home on 03/31/24. She says she is doing fine. She has been trying to move her fingers at home but she has difficulty with stiffness. She reports some occasional pain in her wrist, primarily at night. She is happy to be out of her cast today. [facility] Medical History (Updated 05/18/24 @ 10:38 by Ruth Peterson MD) Left hip pain Sacroiliac joint pain Elevated liver enzymes Right knee pain Left lumbar radiculitis Lumbago with sciatica Sepsis Right anterior knee pain Nausea and vomiting Candidiasis of mouth and esophagus Dysuria Medication monitoring encounter Abnormal findings on diagnostic imaging of musculoskeletal system Myocardial infarction Asthma ANGIE (obstructive sleep apnea) Diabetes Esophageal dysmotilities Esophageal candidiasis Pneumonia Cystitis Recurrent UTI (urinary tract infection) Vitamin D deficiency Hypothyroidism Osteoporosis B12 deficiency Iron deficiency anemia IBS (irritable bowel syndrome) Surgical History H/O heart surgery Hx of gastric bypass History of esophagogastroduodenoscopy (EGD) Hx of colonoscopy History of arthroscopy of left shoulder Family History Father No problems noted. 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 Patient Tobacco Use Status: Never used Tobacco service: No Current occupational status: disabled Review of Systems Const All systems reviewed & are unremarkable except as noted in HPI and below Physical Exam Vital Signs: BMI result Body Mass Index 27.3 Const General: no acute distress and alert Orientation/consciousness: patient oriented x3 Neuro General: patient oriented x3 Extrem Other: Evaluation of Left Upper Extremity: The patient is alert, oriented, and in no acute distress Neuro: Median, Ulnar, Radial nerves motor and sensory intact and sensation is normal to the tips of all digits Vascular: Cap refill brisk ROM: She was anxious about moving her hand and wrist today in clinic. Her cast was removed today in clinic, so she has some wrist stiffness as expected She also has some stiffness in her hand, as I believe she finds it painful to move her fingers and is reticent to do so. With encouragement she could almost bring her fingers closed to a fist and back into extension More than 15 minutes was spent today working on hand and wrist range of motion exercises. Wrist ROM: ~40 degrees pronation ~30 degrees supination ~10 degrees extension ~20 degrees flexion DRUJ stable on exam Fracture site non-tender Radiographs: 3 views of the left wrist were taken & viewed by me today in clinic. They show a distal radius fracture with satisfactory fracture alignment and position of all implants. There is also an ulnar styloid fracture with satisfactory fracture alignment Psych Appearance: grossly normal Affect: normal affect Attitude: cooperative Office Procedures AMB Fracture Care Details: No fracture billing, manual therapy for hand and wrist more than 15 minutes [id number] Fracture Billing Code: Fracture Billing Code Assessment & Plan Assessment & Plan (1) Closed fracture of left distal radius: Code(s): S52.502A - Unspecified fracture of the lower end of left radius, initial encounter for closed fracture Category: Medical (2) Nondisplaced fracture of left ulna styloid process, sequela: Code(s): S52.615S - Nondisplaced fracture of left ulna styloid process, sequela Category: Medical (3) Carpal tunnel syndrome of left wrist: Code(s): G56.02 - Carpal tunnel syndrome, left upper limb Category: Medical (4) DRUJ (distal radioulnar joint) instability, post-traumatic: Code(s): M25.339 - Other instability, unspecified wrist Category: Medical (5) Diabetes: Code(s): E11.9 - Type 2 diabetes mellitus without complications Category: Medical Plan Assessment & Plan: 1. Left distal radius fracture, S/P ORIF & DRUJ pinning DOS: 04/07/24 2. Left carpal tunnel syndrome, S/P release DOS: 04/07/24 Now with normal sensation 3. Left ulnar styloid fracture This was managed non-operatively 4. DRUJ instability Status post DRUJ pinning, and removal of K-wire at 4 weeks S/P fall, DOI: 03/31/24 The patient appears to be doing well post-operatively I educated her about the post-operative course She was placed in a velcro wrist splint, to be worn when out of the house with daily activities for the next 4 weeks She will work on ROM exercises at home, out of her splint. She will also remove her splint when at rest & at night I discussed activity modification, she is to lift lightweight objects and slowly increase her weight limit as tolerated over the next 4 weeks We did work on range of motion exercises for her hand and wrist today, more than 15 minutes. I ordered OT hand therapy to work on ROM, and normalizing function She will follow up in 4 weeks for a ROM check with REECE Carrillo, no X-rays unless she has a new injury or fall Scribed for Ruth Peterson MD by Kalpesh Garcia, medical administrative specialist, on 05/18/24 at 10:45 AM, EST. Orders: Orders XR wrist LT min 3V Today M25.532 - Pain in left wrist OT Evaluation and Treatment Today G56.02 - Carpal tunnel syndrome, left upper limb, M25.339 - Other instability, unspecified wrist, S52.502A - Unspecified fracture of the lower end of left radius, initial encounter for closed fracture, S52.615S - Nondisplaced fracture of left ulna styloid process, sequela Scribe Plan - Not visible on output: Scribed for Ruth Peterson MD by Kalpesh Garcia, medical administrative specialist, on [ ] at [ ], EST. Coding Level of Care Code Global (45115) Diagnoses Closed fracture of left distal radius S52.502A Nondisplaced fracture of left ulna styloid process, sequela S52.615S Carpal tunnel syndrome of left wrist G56.02 DRUJ (distal radioulnar joint) instability, post-traumatic M25.339 Diabetes E11.9 CPT Codes Fracture Care - Fracture Billing Code: Fracture Billing Code ([id number])
[2024-05-18 10:32] VITALS: BMI 27.3
== END 2024-05-18 10:56 | disposition home or self-care (01) ==
PROVIDERS: PCP Internal Medicine; Visit Provider Orthopaedic Surgery
DX: S52.502A Unspecified fracture of the lower end of left radius, initial encounter for closed fracture (principal); S52.615S Nondisplaced fracture of left ulna styloid process, sequela; G56.02 Carpal tunnel syndrome, left upper limb; M25.339 Other instability, unspecified wrist; E11.9 Type 2 diabetes mellitus without complications
CPT/HCPCS: 99024

== ENCOUNTER 2024-06-07 09:07 | Outpatient (REF) | payer OTHER, SELFPAY ==
--- NOTE | ~2024-06-07 | XR_ITS ---
EXAMINATION: XR WRIST, LEFT CLINICAL INFORMATION: Pain in left wrist M25.532. COMPARISON: X-ray left wrist 05/18/2024. TECHNIQUE: 3 views of the left wrist. FINDINGS: Redemonstration of distal radial ORIF with stabilization plate with fixation screws spanning distal radial fractures. There appears to be more dorsal displacement of distal fracture fragments on the lateral view. Redemonstration of rounded lucency in the distal ulna, characteristic of postsurgical change. Redemonstration of fracture of the ulnar styloid. Diffuse soft tissue swelling at the wrist. Atherosclerotic calcifications. Diffuse demineralization. XR/XR wrist LT min 3V IMPRESSION: 1. Redemonstration of distal radial ORIF with stabilization plate with fixation screws spanning distal radial fractures. There appears to be more dorsal displacement of distal fracture fragments on the lateral view. 2. Redemonstration of rounded lucency in the distal ulna, characteristic of postsurgical change. Redemonstration of fracture of the ulnar styloid. Electronically signed by: Miriam Bonilla MD 06/29/2024 06:25 AM VLADISLAV SHORT
== END 2024-06-07 09:08 | disposition home or self-care (01) ==
LOC: HO.HOSX 09:07
DX: S52.502A Unspecified fracture of the lower end of left radius, initial encounter for closed fracture (principal); S52.615S Nondisplaced fracture of left ulna styloid process, sequela; G56.02 Carpal tunnel syndrome, left upper limb; M25.332 Other instability, left wrist; E11.9 Type 2 diabetes mellitus without complications
CPT/HCPCS: 73110; 99212

== ENCOUNTER 2024-06-07 11:06 | Outpatient (AMB) | payer OTHER, SELFPAY ==
--- NOTE | 2024-06-07 11:17 | MHC.OFFVIS ---
Intake Visit Reasons: PO-Lt Distal Rad/Ulnar Styloid ORIF & CTR 04/07/24 Intake Note: Hayley is a 73 year old right hand dominant female who presents today postoperatively for a ROM check s/p left distal radius and ulnar styloid ORIF, left carpal tunnel release by Dr. Peterson, DOS: 04/07/2024. At her last visit she was placed in a Velcro wrist splint to be worn when out of the house with daily activities for the next 4 weeks. Patient reports she has been trying to work on her ROM however she is having extreme pain on both the dorsal and volar aspect of the left wrist and her left digits. She is having extreme stiffness, unable to make a full closed fist. She reports she is unable to keep grey roll man of objects so she has been dropping things lately. She has had difficulty sleeping due to her symptoms. She says she starts OT on 06/09/24. Single Fold Machine Operator Required: Yes Single Fold Machine Operator Language: [employer] Name: [id number] Allergies No Known Allergies [No Known Allergies*] Allergy (Verified 06/07/24 11:19) HPI HPI PO-Lt Distal Rad/Ulnar Styloid ORIF & CTR 04/07/24: Details: Patient is a 73-year-old female who presents for postoperative evaluation status post left distal radius ORIF and carpal tunnel release, DOS 04/07/2024. Today, the patient reports that she is still experiencing significant pain in the left hand and wrist, and also has severely limited range of motion in this area. The patient reports that she has had a lot of apprehension and difficulty with practicing range of motion at home, and states that she is quite nervous about moving her wrist due to her previous injury. Patient states she has only had 1 appointment with occupational therapy so far. Denies any ongoing numbness or tingling in the left hand. No other acute complaints or concerns at this time [facility] Medical History Left hip pain Sacroiliac joint pain Elevated liver enzymes Right knee pain Left lumbar radiculitis Lumbago with sciatica Sepsis Right anterior knee pain Nausea and vomiting Candidiasis of mouth and esophagus Dysuria Medication monitoring encounter Abnormal findings on diagnostic imaging of musculoskeletal system Myocardial infarction Asthma ANGIE (obstructive sleep apnea) Diabetes Esophageal dysmotilities Esophageal candidiasis Pneumonia Cystitis Recurrent UTI (urinary tract infection) Vitamin D deficiency Hypothyroidism Osteoporosis B12 deficiency Iron deficiency anemia IBS (irritable bowel syndrome) Surgical History H/O heart surgery Hx of gastric bypass History of esophagogastroduodenoscopy (EGD) Hx of colonoscopy History of arthroscopy of left shoulder Family History Father No problems noted. 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 Patient Tobacco Use Status: Never used Tobacco service: No Current occupational status: disabled Review of Systems Const All systems reviewed & are unremarkable except as noted in HPI and below Physical Exam Const General: no acute distress and alert Orientation/consciousness: patient oriented x3 Neuro General: patient oriented x3 Extrem Other: Evaluation of Left Upper Extremity: The patient is alert, oriented, and in no acute distress Neuro: Median, Ulnar, Radial nerves motor and sensory intact and sensation is normal to the tips of all digits Vascular: Cap refill brisk ROM: She was anxious about moving her hand and wrist today in clinic. With encouragement she could almost bring her fingers closed to a fist and back into extension Patient does report significant pain when doing this Wrist ROM: ~50 degrees pronation ~50 degrees supination ~20 degrees extension ~20 degrees flexion DRUJ stable on exam Fracture site non-tender Radiographs: 3 views of the left wrist were taken & viewed by me today in clinic. They show a distal radius fracture with satisfactory fracture alignment and position of all implants. There is also an ulnar styloid fracture with satisfactory fracture alignment Psych Appearance: grossly normal Affect: normal affect Attitude: cooperative Assessment & Plan Assessment & Plan (1) Closed fracture of left distal radius: Code(s): S52.502A - Unspecified fracture of the lower end of left radius, initial encounter for closed fracture Category: Medical (2) Nondisplaced fracture of left ulna styloid process, sequela: Code(s): S52.615S - Nondisplaced fracture of left ulna styloid process, sequela Category: Medical (3) Carpal tunnel syndrome of left wrist: Code(s): G56.02 - Carpal tunnel syndrome, left upper limb Category: Medical (4) DRUJ (distal radioulnar joint) instability, post-traumatic: Code(s): M25.339 - Other instability, unspecified wrist Category: Medical (5) Diabetes: Code(s): E11.9 - Type 2 diabetes mellitus without complications Category: Medical Plan Assessment & Plan: 1. Left distal radius fracture, S/P ORIF & DRUJ pinning DOS: 04/07/24 2. Left carpal tunnel syndrome, S/P release DOS: 04/07/24 Now with normal sensation 3. Left ulnar styloid fracture This was managed non-operatively 4. DRUJ instability Status post DRUJ pinning, and removal of K-wire at 4 weeks S/P fall, DOI: 03/31/24 The patient appears to be doing well post-operatively I educated her about the post-operative course Patient was advised that she should only be wearing her Velcro wrist splint in high-risk or crowded situations at this time, and otherwise should not be wearing it and working on range of motion of her left hand and wrist She will work on ROM exercises at home, out of her splint. I discussed activity modification, she is to lift lightweight objects and slowly increase her weight limit as tolerated over the next 4 weeks Patient should continue with occupational therapy She will follow up in 6-8 weeks for a ROM check, sooner with any acute concerns Scribed for Ruth Peterson MD by Kalpesh Garcia, medical physics researcher, on 05/18/24 at 10:45 AM, EST. Orders: Orders XR wrist LT min 3V 06/07/24 M25.532 - Pain in left wrist Coding Level of Care Code Global (93274) Diagnoses Closed fracture of left distal radius S52.502A Nondisplaced fracture of left ulna styloid process, sequela S52.615S Carpal tunnel syndrome of left wrist G56.02 DRUJ (distal radioulnar joint) instability, post-traumatic M25.339 Diabetes E11.9
== END 2024-06-07 11:42 | disposition home or self-care (01) ==
PROVIDERS: PCP Internal Medicine
DX: S52.502A Unspecified fracture of the lower end of left radius, initial encounter for closed fracture (principal); S52.615S Nondisplaced fracture of left ulna styloid process, sequela; G56.02 Carpal tunnel syndrome, left upper limb; M25.339 Other instability, unspecified wrist; E11.9 Type 2 diabetes mellitus without complications
CPT/HCPCS: 99024

== ENCOUNTER 2024-06-20 11:14 | Outpatient (AMB) | payer OTHER, SELFPAY ==
--- NOTE | 2024-06-20 11:18 | A.OFFVIS_ITS ---
Intake Visit Reasons: PO-Lt Distal Rad/Ulnar Styloid ORIF & CTR 04/07/24 Intake Note: Hayley is a 73 year old right hand dominant female who presents today postoperatively for a ROM check s/p left distal radius and ulnar styloid ORIF, left carpal tunnel release by Dr. Petreson, DOS: 04/07/2024. Patient presents to day with complaints of pain on the ulnar aspect of her left wrist and swelling. She states she has not been able to lift or carrying things in the left hand due to her pain. She reports she is still in OT and finding little help. Graphic Specialist Required: Yes Graphic Specialist Language: Veterinary Manager Name: [phone] Allergies No Known Allergies [No Known Allergies*] Allergy (Verified 06/20/24 11:21) HPI HPI PO-Lt Distal Rad/Ulnar Styloid ORIF & CTR 04/07/24: Details: Patient is a 73-year-old female who presents for postoperative evaluation status post left distal radius ORIF and carpal tunnel release, DOS 04/07/2024. Today, the patient reports that she is still experiencing significant pain in the left hand and wrist, and also has severely limited range of motion in this area. Patient states that she has had improvement in her range of motion of her left wrist since starting occupational therapy, but she is still experiencing significant pain with motion of the left hand wrist. Patient also reports that her left wrist distal swollen. Denies any ongoing numbness or tingling in the left hand. No other acute complaints or concerns at this time [facility] Medical History Left hip pain Sacroiliac joint pain Elevated liver enzymes Right knee pain Left lumbar radiculitis Lumbago with sciatica Sepsis Right anterior knee pain Nausea and vomiting Candidiasis of mouth and esophagus Dysuria Medication monitoring encounter Abnormal findings on diagnostic imaging of musculoskeletal system Myocardial infarction Asthma ANGIE (obstructive sleep apnea) Diabetes Esophageal dysmotilities Esophageal candidiasis Pneumonia Cystitis Recurrent UTI (urinary tract infection) Vitamin D deficiency Hypothyroidism Osteoporosis B12 deficiency Iron deficiency anemia IBS (irritable bowel syndrome) Surgical History H/O heart surgery Hx of gastric bypass History of esophagogastroduodenoscopy (EGD) Hx of colonoscopy History of arthroscopy of left shoulder Family History Father No problems noted. Mother Stomach cancer Diabetes mellitus CVD (cardiovascular disease) Heart attack Arthritis of knee Sister COVID-19 Paternal Aunt Cancer Maternal Aunt Cancer Paternal Uncle Cancer Social History Household Members: Spouse Housing: House Are you a primary medical care manager to a significant other at home: No Do you presently have visiting nurse or other home services: No (unable to determine) Alcohol intake: never 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 Patient Tobacco Use Status: Never used Tobacco service: No Current occupational status: disabled Review of Systems Const All systems reviewed & are unremarkable except as noted in HPI and below Physical Exam Const General: no acute distress and alert Orientation/consciousness: patient oriented x3 Neuro General: patient oriented x3 Extrem Other: Evaluation of Left Upper Extremity: The patient is alert, oriented, and in no acute distress Neuro: Median, Ulnar, Radial nerves motor and sensory intact and sensation is normal to the tips of all digits Vascular: Cap refill brisk ROM: She was anxious about moving her hand and wrist today in clinic. With encouragement she could almost bring her fingers closed to a fist and back into extension Patient does report significant pain when doing this Wrist ROM: ~50 degrees pronation ~50 degrees supination ~15 degrees extension ~30 degrees flexion DRUJ stable on exam Fracture site non-tender Psych Appearance: grossly normal Affect: normal affect Attitude: cooperative Assessment & Plan Assessment & Plan (1) Closed fracture of left distal radius: Code(s): S52.502A - Unspecified fracture of the lower end of left radius, initial encounter for closed fracture Category: Medical (2) Nondisplaced fracture of left ulna styloid process, sequela: Code(s): S52.615S - Nondisplaced fracture of left ulna styloid process, sequela Category: Medical (3) Carpal tunnel syndrome of left wrist: Code(s): G56.02 - Carpal tunnel syndrome, left upper limb Category: Medical (4) DRUJ (distal radioulnar joint) instability, post-traumatic: Code(s): M25.339 - Other instability, unspecified wrist Category: Medical (5) Diabetes: Code(s): E11.9 - Type 2 diabetes mellitus without complications Category: Medical Plan Assessment & Plan: 1. Left distal radius fracture, S/P ORIF & DRUJ pinning DOS: 04/07/24 2. Left carpal tunnel syndrome, S/P release DOS: 04/07/24 Now with normal sensation 3. Left ulnar styloid fracture This was managed non-operatively 4. DRUJ instability Status post DRUJ pinning, and removal of K-wire at 4 weeks S/P fall, DOI: 03/31/24 The patient appears to be doing well post-operatively I educated her about the post-operative course Patient was advised that she should only be wearing her Velcro wrist splint in high-risk or crowded situations at this time, and otherwise should not be wearing it and working on range of motion of her left hand and wrist She will work on ROM exercises at home, out of her splint. I discussed activity modification, she is to lift lightweight objects and slowly increase her weight limit as tolerated over the next 4 weeks Patient should continue with occupational therapy She will follow up for previously scheduled ROM check, sooner with any acute concerns Scribed for Ruth Peterson MD by Kalpesh Garcia, medical office administrator, on 05/18/24 at 10:45 AM, EST. Coding Level of Care Code Global (02665) Diagnoses Closed fracture of left distal radius S52.502A Nondisplaced fracture of left ulna styloid process, sequela S52.615S Carpal tunnel syndrome of left wrist G56.02 DRUJ (distal radioulnar joint) instability, post-traumatic M25.339 Diabetes E11.9
== END 2024-06-20 11:34 | disposition home or self-care (01) ==
LOC: HO.HOS 11:14
PROVIDERS: PCP Internal Medicine
DX: S52.502A Unspecified fracture of the lower end of left radius, initial encounter for closed fracture (principal); S52.615S Nondisplaced fracture of left ulna styloid process, sequela; G56.02 Carpal tunnel syndrome, left upper limb; M25.339 Other instability, unspecified wrist; E11.9 Type 2 diabetes mellitus without complications
CPT/HCPCS: 99024

== ENCOUNTER → 2024-06-20 11:14 | Outpatient (BNVA) | payer OTHER, SELFPAY | PROVIDERS: PCP Internal Medicine | DX: Z47.89 Encounter for other orthopedic aftercare (principal); S52.502D Unspecified fracture of the lower end of left radius, subsequent encounter for closed fracture with routine healing; S52.615D Nondisplaced fracture of left ulna styloid process, subsequent encounter for closed fracture with routine healing; G56.02 Carpal tunnel syndrome, left upper limb; M25.339 Other instability, unspecified wrist; E11.9 Type 2 diabetes mellitus without complications | CPT/HCPCS: 99212 ==

== ENCOUNTER 2024-07-19 08:23 | Outpatient (AMB) | payer OTHER, SELFPAY ==
--- OUTSIDE RECORDS SUMMARY | 2024-07-19 08:38 | XMS_ITS | Encounter Summary ---
Author Organization [employer] Address [address] [facility] [address] [place] [address] Care Team Providers Care Check Writer Salesperson Name Role Phone Mary Rod MD Primary Care Provide r Reason for Visit * Reason Comments Med Refill Encounter Details Date Type Department Care Team (Late st Contact Info) Description 07/13/2024 Refill [facility] P[facility]S [address] [place], [place] [phone] Mary Rod MD [address] [place] [address] Social History Tobacco Use Types Packs/Day Years Used Date Smoking Tobacco: Never Passive Smoke Exposure: Never Smokeless Tobacco: Never Alcohol Use Standard Drinks/Week Comments Never 0 (1 standard drink = 0.6 oz pur e alcohol) Depression Answer Date Recorded Patient Health Questionnaire-9 Score 0 01/07/2024 Patient Health Questionnaire-9 Score 0 01/07/2024 Last PHQ-9: Questionnaire Data Not on file 0 01/07/2024 Housing Stability Answer Date Recorded What is your housing situation today? I have luisa caicedo 01/07/[address] you li ve. Do you have problems with any of the following? None of the above 01/07/2024 Food Insecurity Answer Date Recorded Within the past 12 months, y ou worried that your food would run out before you got money to buy more: Never True 01/07/2024 Within the past 12 months,th e food you bought just didn't last and you didn't have enough money to get more: Never True Transportation Answer Date Recorded In the past 12 months, has l ack of transportation kept you from medical appts, meetings, work or from getting things needed for daily living? No 01/07/2024 Utilities Answer Date Recorded In the past 12 months, has t he electric, gas, oil or water company threatened to shut off services in your home? No 01/07/2024 Depression Answer Date Recorded Patient Health Questionnaire-2 Score 0 01/07/2024 Internet Access Answer Date Recorded Internet Access Q1 No 02/12/2024 Internet Access Q2 I do not want or need it 01/15 Comments Unknown Sex and Gender Information Value Date Recorded Sex Assigned at Female 04/14/2022 10:15 AM EDT Legal Sex Female 10:15 AM EDT Gender Identity Female 04/14/2022 10:15 AM EDT Sexual Orientation Choose not to disclose 2021 10:15 AM EDT documented as of this encounter Plan of Treatment Upcoming Encounters Date Type Department Care Team (Late st Contact Info) Description 08/12/2024 11:15 AM EST Office Visit [facility] MEDICINE [address] [place] [address] Mary Rod MD [address] [place] [address] documented as of this encounter Goals Goal Patient Goal Type Associated Problems Recent Progress Patient-Stated? Author Record your blood pressure once per day Blood Pressure Giovany Dixon PharmD Note: When you receive your new BP monitor Short-term: Promote adherence to treatment regimen General Giovany Dixon PharmD documented as of this encounter Visit Diagnoses Not on filedocumented in this encounter Additional Health Concerns Assessment Noted Time PHQ-9 Depression Total Score: 0 01/07/20 24 9:26 AM EDT documented as of this encounter Care Teams Check Writer Salesperson Relationship Specialty Start Date End Date Mary Rod MD [address] [place] [address] PCP - General Family Medicine 02/07/22 documented as of this encounter
--- OUTSIDE RECORDS SUMMARY | 2024-07-19 08:38 | XMS_ITS | Encounter Summary ---
Author Organization [employer] Address [address] [facility] [address] [place] [address] Care Team Providers Care Biometrics Head Name Role Phone Mary Rod MD Primary Care Provide r Reason for Visit * Reason Comments Med Refill Encounter Details Date Type Department Care Team (Late st Contact Info) Description 06/21/2024 Refill [facility] MEDICINE [address] [place], [place] [phone] Mary Rod MD [address] [place] [address] Type 2 diabetes mellitus with chronic kidney disease, without long-term current use of insulin, unspecified CKD stage (CMS/HCC); Spinal stenosis of lumbar region, unspecified whether neurogenic claudication present Social History Tobacco Use Types Packs/Day Years [...] Description 08/12/2024 11:15 AM EST Office Visit [facility] MEDICINE [address] [place] [phone] Mary Rod MD [address] [place] [address] documented as of this encounter Goals Goal Patient Goal Type Associated Problems Recent Progress Patient-Stated? Author Record your blood pressure once per day Blood Pressure Giovany Dixon PharmD Note: When you receive your new BP monitor Short-term: Promote adherence to treatment regimen General No Giovany Lin PharmD documented as of this encounter Visit Diagnoses Diagnosis Type 2 diabetes mellitus with chronic kidney disease, without long-term current use of insulin, unspecified CKD stage (CMS/HCC) Spinal stenosis of lumbar region, unspecified whether neurogenic claudication present documented in this encounter Additional Health Concerns Assessment Noted Time PHQ-9 Depression Total Score: 0 01/07/20 24 9:26 AM EDT documented as of this encounter Care Teams Biometrics Head Relationship Specialty Start Date End Date Mary Rod MD [address] [place] [address] PCP - General Family Medicine 02/07/22 documented as of this encounter
--- OUTSIDE RECORDS SUMMARY | 2024-07-19 08:38 | XMS_ITS | Encounter Summary ---
Author Organization [employer] Address [address] [facility] [address] [place] [address] Care Team Providers Care Tower Climber Name Role Phone Mary Rod MD Primary Care Provide r Encounter Details Date Type Department Care Team (Late st Contact Info) Description 11/12/2022 [facility] Information Management [address] [place] [address] Mary Rod MD [address] [place] [address] Social History Tobacco Use Types Packs/Day Years Used Date Smoking Tobacco: Never Passive Smoke Exposure: Never Smokeless Tobacco: Never Depression Answer Date Recorded Patient Health Questionnaire-9 Score 0 10/28/2022 Depression Answer Date Recorded Patient Health Questionnaire-2 Score 0 10/28/2022 Comments Unknown Sex and Gender Information Value Date Recorded Sex Assigned at Female 04/14/2022 10:15 AM EDT Legal Sex Female 10:15 AM EDT Gender Identity Female 04/14/2022 10:15 AM EDT Sexual Orientation Choose not to disclose 2021 10:15 AM EDT COVID-19 Exposure Response Date Recorded In the last 10 days, have yo u been in contact with someone who was confirmed or suspected to have Coronavirus/COVID-19? No / Unsure 11/04/2022 10:33 AM EDT documented as of this encounter Plan of Treatment Upcoming Encounters Date Type Department Care Team (Late st Contact Info) Description 08/12/2024 11:15 AM EST Office Visit [facility] MEDICINE [address] [place] [address] Mary Rod MD [address] [place] [address] documented as of this encounter Goals Goal [...] Noted Time PHQ-9 Depression Total Score: 0 10/29/19 23 9:50 AM EDT documented as of this encounter Care Teams Tower Climber Relationship Specialty Start Date End Date Mary Rod MD [address] [place] [address] PCP - General Family Medicine 02/07/22 documented as of this encounter
--- OUTSIDE RECORDS SUMMARY | 2024-07-19 08:38 | XMS_ITS | Encounter Summary ---
Author Organization [employer] Address [address] [facility] [address] [place] [address] Care Team Providers Care Soda Dispenser Name Role Phone Mary Rod MD Primary Care Provide r Encounter Details Date Type Department Care Team (Late st Contact Info) Description 03/24/2023 Abstract [facility] MEDICINE [address] [place] [address] Tonia Cardoza Social History Tobacco Use Types Packs/Day Years Used Date Smoking Tobacco: Never Passive Smoke Exposure: Never Smokeless Tobacco: Never Alcohol Use Standard Drinks/Week Comments Never 0 (1 standard drink = 0.6 oz pur e alcohol) Depression Answer Date Recorded Patient Health Questionnaire-9 Score 0 10/28/2022 Housing Stability Answer Date Recorded What is your housing situation today? I have luisa caicedo 03/23/[address] you li ve. Do you have problems with any of the following? None of the above 03/23/2023 Food Insecurity Answer Date Recorded Within the past 12 months, y ou worried that your food would run out before you got money to buy more: Never True 03/23/2023 Within the past 12 months,th e food you bought just didn't last and you didn't have enough money to get more: Never True 02/2023 Transportation Answer Date Recorded In the past 12 months, has l ack of transportation kept you from medical appts, meetings, work or from getting things needed for daily living? No 03/23/2023 Utilities Answer Date Recorded In the past 12 months, has t he electric, gas, oil or water company threatened to shut off services in your home? No 03/23/2023 Depression Answer Date Recorded Patient Health Questionnaire-2 [...] 08/12/2024 11:15 AM EST Office Visit [facility] MEDICINE [address] [place], [place] [phone] Mary Rod MD [address] [place], [place] [phone] documented as of this encounter Goals Goal Patient Goal Type Associated Problems Recent Progress Patient-Stated? Author Record your blood pressure once per day Blood Pressure No Giovany Lin PharmD Note: When you receive your new BP monitor Short-term: Promote adherence to treatment regimen General No Giovany Lin, PharmD documented as of this encounter Visit Diagnoses Not on filedocumented in this encounter Additional Health Concerns Assessment Noted Time PHQ-9 Depression Total Score: 0 10/29/19 23 9:50 AM EDT documented as of this encounter Care Teams Soda Dispenser Relationship Specialty Start Date End Date Mary Rod MD [address] [place], [place] [phone] PCP - General Family Medicine 02/07/22 documented as of this encounter
--- OUTSIDE RECORDS SUMMARY | 2024-07-19 08:38 | XMS_ITS | Encounter Summary ---
Author Organization [employer] Address [address] [facility] [address] [place] [address] Care Team Providers Care Auto Collision Repair Instructor Name Role Phone Mary Rod MD Primary Care Provide r Encounter Details Date Type Department Care Team (Late st Contact Info) Description 04/19/2024 Orders Only [facility] External Provider, [facility] Social History Tobacco Use Types Packs/Day Years [...] Description 08/12/2024 11:15 AM EST Office Visit [facility] [address] [place], [place] [phone] Mary Rod MD [address] [place] [address] documented as of this encounter Goals Goal Patient Goal Type Associated Problems Recent Progress Patient-Stated? Author Record your blood pressure once per day Blood Pressure No Giovany Lin PharmD Note: When you receive your new BP monitor Short-term: Promote adherence to treatment regimen General No Giovany Lin PharmD documented as of this encounter Procedures Procedure Name Priority Date/Time Associated Diagnosis Comments XR WRIST LT W SCAPHOID Routine 04/19/2024 2:12 PM EST documented in this encounter Results * XR WRIST LT W SCAPHOID (04/19/2024 2:12 PM EST) Anatomical Region Laterality Modality Upper Extremities, Wrist Left Radiogr aphic Imaging 04/19/2024 2:12 PM EST Narrative 06/24/2024 9:28 AM EST ? [facility] ? [address] ?[place] [address] ?XRay Report ? Signed ? Patient: Shannon Felipe,Hayley ?MR#: [id number] ?? [id number] ? : 1950 ?Acct:[id number] ? Age/Sex: 73 / F ?ADM Date: 11/05/24 ? Loc: HO.HOSX ? Attending Dr: Gerardo NEWELL ? Ordering Physician: Gerardo Brizuela ?? Date of Service: 04/19/24 ?? Procedure(s): XR wrist LT w scaphoid ?? Accession Number(s): [id number] ? cc: Gerardo Brizuela; Mary Rod MD ? EXAMINATION: ?? XR WRIST LEFT 3 VIEWS ? CLINICAL INFORMATION: ?? Pain in left wrist M25.532. ? COMPARISON: ?? XR Left wrist 03/31/2024. ? TECHNIQUE: ?? PA, lateral, and oblique views of the left wrist. ? FINDINGS: ?? Distal radial stabilization plate with fixation screws. Orthopedic pin ?? extending through the distal radius and distal ulna. No hardware ?? fracture or perihilar where lucency to suggest loosening or infection. ?? The previously seen distal radial fractures in improved anatomic ?? alignment. Ulnar styloid fracture is redemonstrated. No new fracture or ?? dislocation. Atherosclerotic calcifications. Mild circumferential soft ?? tissue swelling. ? XR/XR wrist LT w scaphoid ?? IMPRESSION: ?? 1. Distal radial ORIF without evidence of hardware complication. Distal ?? radial and ulnar fractures in improved anatomic alignment. ?? 2. Ulnar styloid fracture redemonstrated. ?? 3. Mild circumferential soft tissue swelling. ? Electronically signed by: ??Vance Manzano MD ??06/24/2024 09:26 AM EST ? Dictated By: ?Vance Manzano MD ? Signed By: ?<Electronically signed by Vance Manzano MD in OV> ?06/24/24925 ? DD/ 1412 ? TD/TT: 04/19/24 1415 ? Shingles Roofer Helper: SR ? Procedure Note Yariel, Image - 06/24/2024 [facility] [address] [place] [address] [address] [place] [address] XRay Report Signed Patient: Susan Marc#: [id number] : 2Acct:[id number] Age/Sex: 73 / FADM Date: 04/19/24 Loc: HO.HOSX Attending Dr: Gerardo NEWELL Ordering Physician: Gerardo Brizuela Date of Service: 04/19/24 Procedure(s): XR wrist LT w scaphoid Accession Number(s): [id number] cc: Gerardo Brizuela; Mary Rod MD EXAMINATION: XR WRIST LEFT 3 VIEWS CLINICAL INFORMATION: Pain in left wrist M25.532. COMPARISON: XR Left wrist 03/31/2024. TECHNIQUE: PA, lateral, and oblique views of the left wrist. FINDINGS: Distal radial stabilization plate with fixation screws. Orthopedic pin extending through the distal radius and distal ulna. No hardware fracture or perihilar where lucency to suggest loosening or infection. The previously seen distal radial fractures in improved anatomic alignment. Ulnar styloid fracture is redemonstrated. No new fracture or dislocation. Atherosclerotic calcifications. Mild circumferential soft tissue swelling. XR/XR wrist LT w scaphoid IMPRESSION: 1. Distal radial ORIF without evidence of hardware complication. Distal radial and ulnar fractures in improved anatomic alignment. 2. Ulnar styloid fracture redemonstrated. 3. Mild circumferential soft tissue swelling. Electronically signed by: Vance Manzano MD 06/24/2024 09:26 AM [facility] Dictated By: Vance Manzano MD Signed By: <Electronically signed by Vance Manzano MD in OV> 06/24/24925 DD/ 1412 TD/TT: 04/19/24 1415 Shingles Roofer Helper: [facility] External Provider IMG XR PROCEDURES Final Result documented in this encounter Visit Diagnoses Not on filedocumented in this encounter Additional Health Concerns Assessment Noted Time PHQ-9 Depression Total Score: 0 01/07/20 9:26 AM EDT documented as of this encounter Care Teams Auto Collision Repair Instructor Relationship Specialty Start Date End Date Mary Rod MD [address] [place] [id number] PCP - General Family Medicine 02/07/22 documented as of this encounter
--- OUTSIDE RECORDS SUMMARY | 2024-07-19 08:38 | XMS_ITS | Encounter Summary ---
Author Organization [employer] Address [address] [facility] [address] [place] [address] Care Team Providers Care Autoclave Operator Name Role Phone Mary Rod MD Primary Care Provide r Encounter Details Date Type Department Care Team ([facility] st Contact Info) Description 03/25/2023 Orders Only [facility] [address] [place] [address] ProviderLinsey MD Social History Tobacco Use Types Packs/Day Years [...] Description 08/12/2024 11:15 AM EST Office Visit [facility] [address] [place], [place] [phone] Mary Rod MD [address] [place], [place] [phone] documented as of this encounter Goals Goal Patient Goal Type Associated Problems Recent Progress Patient-Stated? Author Record your blood pressure once per day Blood Pressure No Giovany Lin PharmD Note: When you receive your new BP monitor Short-term: Promote adherence to treatment regimen General No Giovany Lin PharmD documented as of this encounter Procedures Procedure Name Priority Date/Time Associated Diagnosis Comments HM COLONOSCOPY Routine 02/16/2023 documented in this encounter Results * Hm Colonoscopy (02/16/2023) Historical Provider HEALTH MAINTENANCE Final Result documented in this encounter Visit Diagnoses Not on filedocumented in this encounter Additional Health Concerns Assessment Noted Time PHQ-9 Depression Total Score: 0 10/29/19 23 9:50 AM EDT documented as of this encounter Care Teams Autoclave Operator Relationship Specialty Start Date End Date Mary Rod MD [address] [place], [place] [phone] PCP - General Family Medicine 02/07/22 documented as of this encounter
--- OUTSIDE RECORDS SUMMARY | 2024-07-19 08:38 | XMS_ITS | Clinical Summary ---
Author Organization [employer] Address [address] [place] [address] Care Team Providers Care Shelf Filler Name Role Phone Mary Rod MD Primary Care Provide r Allergies No known active allergies Medications Bisacodyl EC 5 MG EC tablet Take 3 tablets by mouth at bedtime. 023 Active clonazePAM (KlonoPIN) 1 MG tablet Take 1 tablet by mouth if needed in the morning, at noon, and at bedtime. 023 Active famotidine (Pepcid) 20 MG tablet Take 1 tablet by mouth 1 (one) time each day. 023 Active folic acid (Folvite) 1 MG tablet TAKE 1 TABLET BY MOUTH EVERY MORNING 023 Active FREESTYLE LITE test strip TEST BLOOD SUGAR TWICE DAILY 023 Active TRUEplus Lancets 33G misc TEST BLOOD SUGAR TWICE DAILY 023 Active Linzess 290 MCG capsule TAKE 1 CAPSULE BY MOUTH EVERY MORNING 023 Active metoclopramide (Reglan) 10 MG tablet TAKE 1 TABLET BY MOUTH FOUR TIMES DAILY (BEFORE MEALS AND AT BEDTIME) 023 Active mupirocin (Bactroban) 2 % ointment APPLY A THIN LAYER AFFECTED AREA(S) THREE TIMES DAILY 022 Active nitroglycerin (Nitrostat) 0.[address] 1 TABLET UNDER THE TONGUE NEEDED FOR CHEST PAIN - MAY REPEAT IN 5 MINUTES TWICE. IF NO RELIEF CALL 911 OR GO TO EMERGENCY ROOM. 023 Active pantoprazole (ProtoNix) 40 MG EC tablet Take 1 tablet by mouth 2 times daily. Active Simethicone Ultra Strength 180 MG capsule Take 1 capsule by mouth 4 times daily. Active traMADol (Ultram) 50 MG tablet Take 50 mg by mouth every 6 (six) hours if needed. Active venlafaxine XR (Effexor XR) 150 MG 24 hr capsule Take 1 capsule by mouth in the morning. Active venlafaxine XR (Effexor XR) 75 MG 24 hr capsule Take 1 capsule by mouth in the morning. Active zolpidem (Ambien) 10 MG tablet Take 1 tablet by mouth at bedtime. Active Blood Pressure Monitoring (Omron 3 Series BP Monitor) device USE DIRECTED ONCE DAILY 1 each Active acetaminophen (Tylenol) 500 MG tablet Take 2 tablets (1,000 mg) by mouth every 6 (six) hours if needed for moderate pain or fever for up to 25 doses. 40 tablet 023 Active ipratropium-albut heriberto (Duo-Neb) 0.5-2.5 mg/3 mL nebulizer solution INHALE 1 AMPULE USING A NEBULIZER FOUR TIMES DAILY 180 mL 1 023 Active terbinafine (LamISIL AT) 1 % creamIndications: Tinea pedis of both feet Apply topically 2 times daily. 30 g 023 Active Additional Information Patient not taking.Reported on 10/28/2023 dulaglutide (Trulicity) 0.75 MG/0.5ML solution pen-injector INJECT ONE PEN (=0.75MG) SUBCUTANEOUSLY ONCE A WEEK DIRECTED 6 mL 3 024 Active budesonide-formot heriberto (Symbicort) 160-4.5 MCG/ACT inhaler INHALE 2 PUFFS BY MOUTH TWICE DAILY. RINSE MOUTH AFTER USING. 024 Active sacubitril-valsar irizarry (Entresto) 24-26 MG tablet Take 1 tablet by mouth 2 times daily. Active rosuvastatin (Crestor) 40 MG tablet TAKE 1 TABLET BY MOUTH AT BEDTIME 90 tablet 3 Active aspirin (Aspirin Adult Low Strength) 81 MG EC tablet TAKE 1 TABLET BY MOUTH EVERY MORNING 90 tablet 3 Active metoprolol succinate XL (Toprol-XL) 50 MG 24 hr tabletIndications :Primary hypertension Take 1 tablet (50 mg) by mouth in the morning. 30 tablet 11 Active albuterol (Ventolin HFA) 108 (90 Base) MCG/ACT inhaler INHALE 2 PUFFS BY MOUTH EVERY 4 HOURS NEEDED 18 g 3 Active bacitracin 500 UNIT/GM ointment APPLY 1 GRAM TOPICALLY TWICE DAILY TO BOTH HEELS Active clotrimazole (Lotrimin) 1 % cream APPLY TO SKIN AND TOENAILS EVERY DAY FOR 12 WEEKS Active lactulose (Chronulac) 10 GM/15ML solution TAKE 30 ML BY MOUTH THREE TIMES DAILY Active Multiple Vitamins-Iron (Tab-A-Star/Iron/ Beta Carotene) tablet Take 1 tablet by mouth every morning with food Active cyanocobalamin (Vitamin B-12) 1000 MCG tablet Take 1,000 mcg by mouth Once per day. Active pancrelipase, Dzt-Hvhz-Xalm, (Creon) 95801-51381 units capsuleIndication s:Pancreatic insufficiency TAKE 1 CAPSULE BY MOUTH FOUR TIMES DAILY WITH FOOD AND 1 CAPSULE WITH SNACKS DO NOT BREAK, CRUSH, DISSOLVE OR CHEW 120 capsule 3 Active Nyamyc 458394 UNIT/GM powderIndications :Intertrigo APPLY TOPICALLY TO AFFECTED AREA(S) TWICE DAILY 60 g 1 Active levothyroxine (Synthroid, Levoxyl) 125 MCG tabletIndications :Acquired hypothyroidism TAKE 1 TABLET BY MOUTH EVERY MORNING BEFORE BREAKFAST 30 tablet 024 Active Brilinta 90 MG tabletIndications :Essential hypertension TAKE 1 TABLET BY MOUTH TWICE DAILY IN THE MORNING AND IN THE EVENING 60 tablet 3 Active montelukast (Singulair) 10 MG tablet TAKE 1 TABLET AT BEDTIME 30 tablet 3 024 Active lidocaine (Xylocaine) 5 % ointmentIndicatio ns:Closed fracture of distal end of left radius, unspecified fracture morphology, initial encounter Apply topically if needed for mild pain. 50 g 1 024 2024 Active Farxiga 10 MGIndications:Typ e 2 diabetes mellitus with chronic kidney disease, without long-term current use of insulin, unspecified CKD stage (CMS/HCC) TAKE 1 TABLET BY MOUTH EVERY MORNING 30 tablet 2 025 Active gabapentin (Neurontin) 600 MG tabletIndications :Spinal stenosis of lumbar region, unspecified whether neurogenic claudication present TAKE 1 TABLET BY MOUTH THREE TIMES DAILY IN THE MORNING, AT NOON, AND AT BEDTIME 90 tablet 2 025 Active topiramate (Topamax) 25 MG tablet TAKE 1 TABLET BY MOUTH EVERY EVENING 30 tablet 025 Active metFORMIN XR (Glucophage-XR) 500 MG 24 hr tablet TAKE 1 TABLET BY MOUTH TWICE DAILY IN THE MORNING AND IN THE EVENING WITH FOOD 180 tablet 025 Active Farxiga 10 MGIndications:Typ e 2 diabetes mellitus with chronic kidney disease, without long-term current use of insulin, unspecified CKD stage (CMS/HCC) TAKE 1 TABLET BY MOUTH EVERY MORNING 30 tablet 2 024 2024 Discontinued metFORMIN XR (Glucophage-XR) 500 MG 24 hr tablet TAKE 1 TABLET BY MOUTH TWICE DAILY IN THE MORNING AND IN THE EVENING WITH FOOD 180 tablet 1 024 2024 Discontinued topiramate (Topamax) 25 MG tablet Take 1 tablet (25 mg) by mouth Once per day. Take 1 tablet by mouth every evening 30 tablet 3 024 2024 Discontinued gabapentin (Neurontin) 600 MG tabletIndications :Spinal stenosis of lumbar region, unspecified whether neurogenic claudication present TAKE 1 TABLET BY MOUTH THREE TIMES DAILY IN THE MORNING, AT NOON, AND AT BEDTIME 90 tablet 024 2024 Discontinued Active Problems Problem Noted Date Diagnosed Date Unstable gait 05/20/2024 Assessment & Plan (05/24/2024 4:52 PM EST): I will prescribe for patient a quad cane Closed fracture of left distal radius 05/20/2024 Assessment & Plan (05/24/2024 4:53 PM EST): Continue to follow with specialist Coronary artery disease invo lving [place] coronary artery of [place] heart 05/20/2024 Ecchymoses, spontaneous 02/02/2024 Assessment & Plan (02/02/2024 12:00 PM EDT): - most likely side effect of ASA and Brilinta - discussed with pt relatively mild side effects of medications above compared to risk of discontinuing medications - reassurance, pt agreed to continue using ASA and Brilinta and will use heat to affected area and/or Diclofenac gel PRN Intertrigo 01/07/2024 Assessment & Plan (01/07/2024 10:12 AM EDT): Maintain area dry and clean Nystatin powder prescribed Moderate asthma with exacerbation 10/28/2023 Assessment & Plan (10/29/2023 10:19 AM EDT): 10/07 ProBNP wnl Symptoms are associated w asthma exacerbation,w bl wheezing , CV exam normal , no LE edema , no crackles on exam Here Flu and COVID 19 test are neg -referred for CXR today -continue AMANDA prn, symbicort 160/4.5 2 puffs BID ,Duoneb prn,.montelukast -Denies hx of GI bleeding---prednisone 40 daily for 5 days -contiue Ppis in fasting -alarm signs and symptoms discussed w pt if having CP not associated w SOB and wheezing which denies at this time and symptoms improve w Duoneb NBZ but 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 needed -has apt w toter in 12/2023 Hyperkalemia 09/30/2023 Assessment & Plan (09/30/2023 3:04 PM EDT): I will repeat BMP to monitor her K level NSTEMI (non-ST elevated myocardial infarction) 0 09/17/2023 Assessment & Plan (09/30/2023 3:02 PM EDT): Continue to follow with cardiology C/w cardiac rehab Assessment & Plan (09/17/2023 10:26 AM EDT): HDF appoitnments with me and pharmacy will be arrange for patient C/w brillinta and ASA Upper back pain on right side 07/20/2023 Assessment & Plan (07/20/2023 5:16 PM EST): Apply heat on affected area I added today flexeril and lidocaine patch PT referral Chronic pain of both feet 06/12/2023 Onychomycosis 06/12/2023 Tinea pedis of both feet 06/12/2023 Enlarged thyroid 06/12/2023 Acute kidney injury superimposed on CKD ([facility] ) 01/19/2023 Assessment & Plan (01/19/2023 4:49 PM EDT): maintain good control of blood pressure and glucose Do not take NSAIDs Drink plenty of water Other intervertebral disc degeneration, lumbar r egion 10/28/2022 Assessment & Plan (01/19/2023 4:46 PM EDT): I will generate prescription for recliner Assessment & Plan (10/28/2022 10:40 AM EDT): I incease her gabapentin to 600mg TID C/w tramadol 50mg Q 6hrs PRN C/w acetaminophen Continue with pain management Referral to neurosurgery for further input done today Spinal stenosis of lumbar region 10/28/2022 Assessment & Plan (09/17/2023 10:27 AM EDT): Continue to follow with pain management Patient ask for tramadol refill (it is prescribe by another provider but refill is ready for her at pharmacy) Assessment & Plan (03/18/2023 12:25 PM EDT): Continue PT Continue to follow with pain management Recliner prescription already done Assessment & Plan (01/19/2023 4:47 PM EDT): I will generate prescription for recliner Colon cancer screening 10/17/2022 Lower urinary tract symptoms 10/14/2022 Lumbar disc disease 07/15/2022 Overview (07/15/2022): S/p MILD procedure 06/2022 Assessment & Plan (09/30/2023 3:02 PM EDT): C/w tramadol PRN and f/u with pain management Assessment & Plan (01/19/2023 4:48 PM EDT): I will generate prescription for recliner C/w tramadol C/w acetaminophen C/w lidocaine patches Assessment & Plan (10/17/2022 2:56 PM EDT): I will try to find out what procedure she will have by pain management and if MRI is pending C/w tramadol and gabapentin I added today acetaminophen Abnormal magnetic resonance imaging study 2021 Obstructive sleep apnea syndrome 08/13/2021 Diffuse spasm of esophagus 06/25/2021 Gastroparesis 06/25/2021 Stage 3a chronic kidney disease 04/23/2021 Hypertensive renal disease 01/07/2021 Essential hypertension 03/30/2017 Assessment & Plan (05/24/2024 4:53 PM EST): Stable c/w current interventions Assessment & Plan (01/07/2024 10:11 AM EDT): Controlled it was advise: - Aerobic exercise to reduce BP. Initial goal of 30 min walk 3-5x/week. Increase as tolerated. - low-sodium diet (goal: <2g/day) and heart healthy diet such as DASH to reduce BP and prevent ASCVD. - Home BP monitoring 1-2 x day with goal of <140/90. - Seek immediate medical attention for chest pain, palpitations, SOB, syncope, or sudden changes in mental status. - Do not change or discontinue current prescriptions without first consulting health care provider Assessment & Plan (09/30/2023 3:02 PM EDT): C/w same interventions Assessment & Plan (09/17/2023 10:25 AM EDT): It was discontinue amlodipine and isosorbide, she will continue to take losartan 25mg daily, metoprolol 50mg daily Assessment & Plan (07/20/2023 5:14 PM EST): I have notice on several visits her BP is now on the low side, I decided to go down on her amlodipine Assessment & Plan (03/18/2023 12:23 PM EDT): - Aerobic exercise to reduce BP. Initial goal of 30 min walk 3-5x/week. Increase as tolerated. - low-sodium diet (goal: <2g/day) and heart healthy diet such as DASH to reduce BP and prevent ASCVD. - Home BP monitoring 1-2 x day with goal of <140/90. - Seek immediate medical attention for chest pain, palpitations, SOB, syncope, or sudden changes in mental status. - Do not change or discontinue current prescriptions without first consulting health care provider Assessment & Plan (01/19/2023 4:46 PM EDT): - Aerobic exercise to reduce BP. Initial goal of 30 min walk 3-5x/week. Increase as tolerated. - low-sodium diet (goal: <2g/day) and heart healthy diet such as DASH to reduce BP and prevent ASCVD. - Home BP monitoring 1-2 x day with goal of <140/90. - Seek immediate medical attention for chest pain, palpitations, SOB, syncope, or sudden changes in mental status. - Do not change or discontinue current prescriptions without first consulting health care provider Assessment & Plan (10/28/2022 10:39 AM EDT): Controlled continue with same interventions Assessment & Plan (10/17/2022 2:55 PM EDT): Maintenance: BMP: ordered today Lipid Panel: ordered today ASCVD Risk: Calculate pending updated labs EKG: Obtain baseline at f/u - Aerobic exercise to reduce BP. Initial goal of 30 min walk 3-5x/week. Increase as tolerated. - low-sodium diet (goal: <2g/day) and heart healthy diet such as DASH to reduce BP and prevent ASCVD. - Home BP monitoring 1-2 x day with goal of <140/90. - Seek immediate medical attention for chest pain, palpitations, SOB, syncope, or sudden changes in mental status. 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 Abdominal pain 01/12/2014 Dyslipidemia 09/14/2012 Hypertension 07/06/2012 Anemia 01/19/2012 Varicose veins of lower extremity 01/19/2012 Asthma 01/05/2012 Acquired hypothyroidism 12/11/2011 Assessment & Plan (03/18/2023 12:24 PM EDT): Medication recently adjusted synthroid decrease to 112mcg Adult failure to thrive syndrome 12/11/2011 Constipation 12/11/2011 Depressive disorder 12/11/2011 Assessment & Plan (09/30/2023 3:03 PM EDT): Continue to follow with psychiatry, medication adjustment as per discretion of specialist Diabetes mellitus 12/11/2011 Assessment & Plan (01/07/2024 10:12 AM EDT): Diabetes is: controlled - Lab Results Component Value Date HGBA1C 6.2 (A) 01/07/2024 HGBA1C 6.4 (A) 07/20/2023 HGBA1C 6.2 (A) 03/18/2023 - Lab Results Component Value Date MICROALBUR 0.6 04/19/2021 CREATININE 1.10 10/08/2023 CREATININE 1.09 10/08/2023 -Changes: none - Diabetic eye exam:referral today - Diabetic foot exam:up to date - Continue lifestyle modifications - Continue current medications - Follow up: 3 months Assessment & Plan (09/17/2023 10:21 AM EDT): Diabetes is: controlled - Lab Results Component Value Date HGBA1C 6.4 (A) 07/20/2023 HGBA1C 6.2 (A) 03/18/2023 HGBA1C 5.8 10/17/2022 - Lab Results Component Value Date MICROALBUR 0.6 04/19/2021 CREATININE 0.74 02/24/2023 -Changes: none - Diabetic eye exam: - Diabetic foot exam: - Continue lifestyle modifications - Continue current medications - Follow up: 3 months Assessment & Plan (07/20/2023 5:15 PM EST): - Lab Results Component Value Date HGBA1C 6.4 (A) 07/20/2023 HGBA1C 6.2 (A) 03/18/2023 HGBA1C 5.8 10/17/2022 - Lab Results Component Value Date MICROALBUR 0.6 04/19/2021 CREATININE 0.74 02/24/2023 - Diabetic eye exam: pending - Diabetic foot exam:up to date - Continue lifestyle modifications - Continue current medications Assessment & Plan (06/12/2023 1:14 PM EST): Controlled c/w current interventions Assessment & Plan (03/18/2023 12:24 PM EDT): - Lab Results Component Value Date HGBA1C 6.2 (A) 03/18/2023 HGBA1C 5.8 10/17/2022 HGBA1C 6.1 (H) 04/19/2021 - Lab Results Component Value Date MICROALBUR 0.6 04/19/2021 CREATININE 0.74 02/24/2023 - Continue lifestyle modifications - Continue current medications - Assessment & Plan (10/28/2022 10:39 AM EDT): Controlled continue with same interventions Assessment & Plan (10/17/2022 2:57 PM EDT): - Lab Results Component Value Date HGBA1C 5.8 10/17/2022 HGBA1C 6.1 (H) 04/19/2021 HGBA1C 5.9 (H) 03/02/2020 HGBA1C 5.9 (H) 03/02/2020 HGBA1C 5.9 (H) 03/02/2020 HGBA1C 5.9 (H) 03/02/2020 HGBA1C 5.9 (H) 03/02/2020 HGBA1C 5.9 (H) 03/02/2020 - Lab Results Component Value Date MICROALBUR 0.6 04/19/2021 CREATININE 0.84 08/08/2022 - - Diabetic eye exam: pending - Diabetic foot exam: pending - Continue lifestyle modifications - Continue current medications Dysphagia 12/11/2011 Loss of appetite 12/11/2011 Osteoporosis 12/11/2011 Shoulder joint pain 12/11/2011 Vitamin B deficiency 12/11/2011 Resolved Problems Problem Noted Date Diagnosed Date Resolved Date Glaucoma 05/22/2014 05/17/2024 Nonproliferative diabetic retinopathy 08/11/2013 05/17/2024 Encounters Date Type Department Care Team Description 07/13/2024 Refill [facility] [address] [place] [address] Mary Rod MD 07/10/2024 Refill [facility] [address] [place] [address] Mary Rod MD 06/21/2024 Refill [facility] [address] [place] [address] Mary Rod MD Type 2 diabetes mellitus with chronic kidney disease, without long-term current use of insulin, unspecified CKD stage ([facility]); Spinal stenosis of lumbar region, unspecified whether neurogenic claudication present 06/06/2024 Telephone [facility] [address] [place] [address] Mary Rod MD Nurse Triage 05/26/2024 Telephone [facility] [address] [place] [address] Clyde Prakash MA Durable Medical Equipment 05/23/2024 Telephone [facility] [address] [place] [address] Clyde Prakash [place] Durable Medical Equipment 05/20/2024 11:00 AM EST Telemedicine [facility] [address] [place] [address] Mary Rod MD Unstable gait (Primary Dx); Closed fracture of distal end of left radius, unspecified fracture morphology, initial encounter; Essential hypertension 05/20/2024 Travel 05/19/2024 Refill [facility] [address] [place] [address] Mary Rod MD Spinal stenosis of lumbar region, unspecified whether neurogenic claudication present 05/17/2024 9:00 AM EST Office Visit [facility] [address] [place] [address] Tonya Brennan, OD Visual field defect (Primary Dx); 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, without long-term current use of insulin ([facility]/HCC); Macular hole of left eye; Regular astigmatism of both eyes 05/17/2024 Travel 04/25/2024 Refill [facility] [address] [place] [address] Mary Rod MD Essential hypertension; Spinal stenosis of lumbar region, unspecified whether neurogenic claudication present 04/20/2024 Travel 04/19/2024 Orders Only [facility] External Provider, [facility] from Last 3 Months Immunizations Name Administration Dates Next Due Diphtheria antitoxin 04/22/2004 HPV, Quadrivalent 05/16/2009,01/31/2008,07/28/19 07 Influenza High-dose Quadriva lent Preservative Free 03/18/2023,03/10/2022,03/06/2020 Influenza Quadrivalent Adjuvanted 03/04/2021 Influenza injectable quadriv alent IIV4 with preservative 03/08/2015 Influenza injectable quadriv alent preservative free 03/19/2021,03/29/2019,03/30/2018,04/30 Influenza, High Dose Seasona l, Preservative Free 03/03/2017 Influenza, IIV3, injectable 03/20/2014, 7 Influenza, Injectable, MDCK, preservative free 08/23/2015 Influenza, Split (incl. sonia fied surface antigen) 03/09/2013 Influenza, Unspecified 03/10/2022,2019,03/20/2014,04/07 Influenza, seasonal, injecta ble, preservative free 04/05/2012 Novel [id number] 05/14/2016 Pfizer Covid-19 Vaccine 12+ 06/18/2023 Pneumococcal Conjugate PCV 13 04/23/2021 Pneumococcal Polysaccharide PPSV23 04/26,04/05/2012,04/17/2011,03/15 RSV Bivalent 07/20/2023 TD (adult), 2 Lf tetanus tox oid, preservative free, adsorbed 04/07/2007 Tdap 08/27/2017 Zoster, Recombinant 03/31/2022,01/28/2022 Zoster, live 03/31/2022,01/28/2022,03/21/2014 Family History Medical History Relation Name Comments Glaucoma Mother Relation Name Status Comments Mother Social History Tobacco Use Types Packs/Day Years Used Date Smoking Tobacco: Never Passive Smoke Exposure: Never Smokeless Tobacco: Never Tobacco Cessation:Counseling Given: Not Answered Alcohol Use Standard Drinks/Week Comments Never 0 [...] not to disclose 2021 10:15 AM EDT Last Filed Vital Signs Vital Sign Reading Time Taken Comments Blood Pressure 112/65 02/02/2024 11:01 AM EDT Pulse 62 02/02/2024 11:01 AM EDT Temperature 36.3 ??C (97.3 ??F) 02/02/2024 11:01 AM E DT Respiratory Rate 16 02/02/2024 11:01 AM EDT Oxygen Saturation 100% 02/02/2024 11:01 AM EDT Inhaled Oxygen Concentration - - Weight 65.3 kg (144 lb) 02/02/2024 11:01 AM EDT Height 154.9 cm (5' 1 ) 02/02/2024 11:01 AM EDT Body Mass Index 27.21 02/02/2024 11:01 AM EDT Plan of Treatment Upcoming Encounters Date Type Department Care Team (Late st Contact Info) Description 08/12/2024 11:15 AM EST Office Visit [facility] [address], [place] [id number] Mary Rod MD [address] [place] [address] Health Maintenance Due Date Last Done Comments CT Colonography 1951 FIT DNA/Cologuard 1951 FIT 1951 FOBT 1950 Sigmoidoscopy 1950 Diabetes: Foot Exam 11/14/1961 Alcohol/Substance Use Screening 1963 Hepatitis C Screening 11/14/1969 Hepatitis A Vaccines (1 of 2 - Risk 2-dose series) 11/14/1970 Hepatitis B Vaccines (1 of 3 - Risk 3-dose series) 2011 Lipid Panel 11/27/2023 11/26/2022, 11/0 10/2020, 03/02/2020 COVID-19 Vaccine ( season) 2024 06/18/2023, 03/21/2022, 10/08/2021, Additional history exists Influenza Vaccine (#1) 2024 , 03/10/2022, 03/10/2022, Additional history exists Diabetes: Hemoglobin A1C 07/09/2024 024, 07/20/2023, 03/18/2023, Additional history exists Depression Screening 01/06/2025 01/07/2024, 01/07/20 24 SDOH Screening 01/06/2025 01/07/2024 Mammogram 01/08/2025 01/08/2023, 09/13, 09/26/2021, Additional history exists Eye Exam 05/17/2025 05/17/2024, 08/2023, 05/17/2024, Additional history exists Tobacco Screening 05/17/2025 05/17/2024 DTaP/Tdap/Td Vaccines (2 - Td or Tdap) 08/28/2027 08/27/2017, 04/07/2007 Colonoscopy 02/17/2028 02/16/2023 Colorectal Cancer Screening 02/17/2028 HPV Vaccines Aged Out 05/16/2009, 01/13, 07/28/2006 No longer eligible based on patient's age to complete this topic Pneumococcal Vaccine: 50+ Years Completed 04/23/2021, 04/26/2017, 04/05/2012, Additional history exists Zoster Vaccines Completed 03/31/2022, 03/15, 01/28/2022, Additional history exists RSV Patients and Patients Aged 60 years or older Completed 07/20/2023 HIB Vaccines Aged Out No longer eligi ble based on patient's age to complete this topic IPV Vaccines Aged Out No longer eligi ble based on patient's age to complete this topic Meningococcal Vaccine Aged Out No andrea kenneth eligible based on patient's age to complete this topic RSV under 20 months Aged Out No longe r eligible based on patient's age to complete this topic Rotavirus Vaccines Aged Out No longer eligible based on patient's age to complete this topic Goals Goal Patient Goal Type Associated Problems Recent Progress Patient-Stated? 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, without long-term current use of insulin (CMS/HCC) Macular hole of left eye AUTOMATED VISUAL FIELD, EXTENDED - OU - BOTH EYES Routine 05/17/2024 9:00 AM EST Visual field defect XR WRIST LT W SCAPHOID Routine 04/19/2024 2:12 PM EST POCT GLYCATED HEMOGLOBIN, TOTAL Routine 01/07/2024 9:27 AM EDT Type 2 diabetes mellitus with chronic kidney disease, without long-term current use of insulin, unspecified CKD stage (CMS/HCC) HM COLONOSCOPY Routine 02/16/2023 BI MAMMOGRAM SCREENING TOMOSYNTHESIS BILATERAL Routine 01/08/2023 12:20 PM EDT LIPID PANEL, STANDARD Routine 11/26/2022 8:01 AM EDT Essential hypertension Type 2 diabetes mellitus with chronic kidney disease, without long-term current use of insulin, unspecified CKD stage (CMS/HCC) from Last 3 Months or Most Recently Relevant to Health Maintenance Results * OCT, Retina - OU - Both Eyes (05/17/2024 9:00 AM EST) Tonya Pascual, OD - 05/18/2024 2:13 PM EST OCT MACULA INTERPRETATION Optical Coherence Tomography Interpretation Report Reliability: OD: 65 (good quality image) OS: 69 (good quality image) Measurements: Subfoveal central thickness OD: ??235 microns OS: ??241 microns Test findings: OD: Grid laser page temporal to macula, one large exudate temporal, (-) IRF/SRF OS: Lamellar hole, (+) epiretinal membrane (ERM), extra-macular atrophy associated with laser page, (-) IRF/SRF Impression and Plan: Lamellar hole left eye (OS). RTC 4 months Ganglion Cell Analysis Report Reliable scans both eyes (OU) Right eye (OD): Some asymmetry along vertical midline with thinner ganglion cell layer (GCL) temporally, likely related to temporal laser page Left eye (OS): Some asymmetry along vertical midline with thinner ganglion cell layer (GCL) temporally, likely related to temporal laser page No homonymous ganglion cell layer (GCL) thinning - no indication of ischemic event Tonya Brennan OD OPHTH TOMOGRAPHY Edited * Automated Visual Field, Extended - OU - Both Eyes (05/17/2024 9:00 AM EST) Narrative Tonya Brennan, OD - 05/19/2024 8:49 AM EST VISUAL FIELD INTERPRETATION Visual Field Interpretation Reason for testing: Possible left inf homonymous quadranopsia on CFF Reliability Indices: False positive errors OD: 0/13 OS: 0/13 False negative errors OD: 10/14 (71%) OS: 9/13 (69%) Examiner comment on fixation: OD: Excessive head movement, had to recenter multiple times. Fixation OK OS: Excessive head movement, had to recenter multiple times. Fixation OK Reliability: OD: Poor reliability OS: Poor reliability Statistical Indices: MD: OD: 16.5 dB OS: 21.1 dB sLV/PSD: OD: 7.6 dB OS: 4.7 dB Impression: Right eye (OD): Diffusely reduced visual field (VF), slight clover leaf pattern? No significant deficit inferior nasal Left eye (OS): Diffusely reduced visual field (VF), Management Plan: No evidence of ischemic event affecting visual pathway us Tonya Brennan OD OPHTH VISUAL FIELD Final Result * XR WRIST LT W SCAPHOID (04/19/2024 2:12 PM EST) Anatomical Region Laterality Modality Upper Extremities, Wrist Left Radiogr aphic Imaging 04/19/2024 2:12 PM EST Narrative 06/24/2024 9:28 AM EST ? [facility] ? [address] ?[place] [address] ?XRay Report ? Signed ? Patient: Shannon Felipe,Hayley ?MR#: MM ?? [id number] ? : 1950 ?Acct:[id number] ? Age/Sex: 73 / F ?ADM Date: 11/05/24 ? Loc: HO.HOSX ? Attending Dr: Gerardo NEWELL ? Ordering Physician: Gerardo Brizuela ?? Date of Service: 04/19/24 ?? Procedure(s): XR wrist LT w scaphoid ?? Accession Number(s): [id number] ? cc: Gerardo Briuzela; Mary Rod MD ? EXAMINATION: ?? XR [...] DD/ 1412 ? TD/TT: 04/19/24 1415 ? Housekeeper And Laundry Assistant: SR ? Procedure Note Twila Saldivar - 06/24/2024 [facility] [address] [place] [address] [address] [place] [address] XRay Report Signed Patient: Susan Marc#: [id number] : 2Acct:[id number] Age/Sex: 73 / FADM Date: 04/19/24 Loc: TYREL Attending Dr: Gerardo NEWELL Ordering Physician: Gerardo Brizuela Date of Service: 04/19/24 Procedure(s): XR wrist LT w scaphoid Accession Number(s): [id number] cc: Gerardo Brizuela; Mary Rod MD EXAMINATION: [...] by: Vance Manzano MD 06/24/2024 09:26 AM EST Dictated By: Vance Manzano MD Signed By: <Electronically signed by Vance Manzano MD in OV> 06/24/24 0926 DD/ 1412 TD/TT: 04/19/24 1415 Housekeeper And Laundry Assistant: [facility] External Provider IMG XR PROCEDURES Final Result * (ABNORMAL) POCT HGB A1C (01/07/2024 9:27 AM EDT) Hemoglobin A1C 6.2(A) 4.0 - 6.0 % QC Media Lot # [id number] Lot# Expiration Date [id number] Blood 01/07/2024 9:27 AM EDT Mary Rivera MD POINT OF CARE TEST EN TER/EDIT ORDERABLES Final Result * Hm Colonoscopy (02/16/2023) Historical Provider HEALTH MAINTENANCE Final Result * BI Mammogram Screening Tomosynthesis Bilateral (01/08/2023 12:20 PM EDT) Anatomical Region Laterality Modality Breast Bilateral Mammography 01/08/2023 12:2 0 PM EDT Narrative 01/30/2023 10:10 AM EDT ? [facility] ? [address] [place] ?[place] [address] ? Mammography Report ? Signed ? Patient: Shannon Felipe,Hayley ?MR#: MM ?? [id number] ? : 1950 ?Acct:[id number] ? Age/Sex: 72 / F ?ADM Date: 01/08/23 ? Loc: HO.MAMMO ? Attending Dr: Mary Rivera MD ? Ordering Physician: Mary Rod MD ?Results: ? Date of Service: 01/08/23 ?Follow Up: ? Procedure(s): MM tomosynthesis screening BI ?? Accession Number(s): [id number] ? cc: Mary Rod MD ? EXAMINATION: ?? MM SCREENING DIGITAL BREAST TOMOSYNTHESIS, BILATERAL ? CLINICAL INFORMATION: ? Screening. Asymptomatic. ? The lifetime risk of breast cancer based on the Tyrer-Cuzick Model is ?? 1.7%. ? COMPARISON: ?? Mammography: 09/26/2021, 12/03/2020, 11/10/2018, 07/29/2017 ? TECHNIQUE: ?? Digital breast tomosynthesis is performed in both the craniocaudal and ?? mediolateral oblique views along with computer-aided detection (CAD). ?? Synthesized 2D images are generated from the tomosynthesis. ??An ?? additional right 3-D MLO view was performed with nipple in profile. ? FINDINGS: ?? There are scattered areas of fibroglandular density (ACR BI-RADS breast ?? composition Category b). ? There are no suspicious masses, suspicious grouped calcifications, or ?? areas of architectural distortion. The parenchymal pattern is stable ?? from prior exams. ??There are bilateral vascular calcifications. ? MM/MM tomosynthesis screening BI ?? IMPRESSION: ?? No mammographic evidence of malignancy. ? ASSESSMENT: ? BI-RADS BI-RADS 2 - Benign Findings ? RECOMMENDATION: ?? Routine annual mammography screening. ? 1 year F/U ? This examination should not preclude the clinical evaluation of a ?? suspicious palpable abnormality. ? This patient's information was entered into a reminder system with a ?? target due date for their next mammogram. ? Dictated By: ?Chris Adames MD ? Signed By: ?<Electronically signed by Chris Adames MD in OV> ?01/30/23 1007 ? DD/ 1220 ? TD/TT: ? Housekeeper And Laundry Assistant: ? Procedure Note Donayoangelinainterpreter, Image - 01/30/2023 [facility] [address] [place] [address] Mammography Report Signed Patient: Josselin MarcR#: [id number] : 2Acct:[id number] Age/Sex: 72 / FADM Date: 01/08/23 Loc: HO.MAMMO Attending Dr: Mary Rivera MD Ordering Physician: Mary Rodesults: Date of Service: 01/08/23Follow Up: Procedure(s): MM tomosynthesis screening BI Accession Number(s): [id number] cc: Mary Rod MD EXAMINATION: MM SCREENING DIGITAL BREAST TOMOSYNTHESIS, BILATERAL CLINICAL INFORMATION: Screening. Asymptomatic. The lifetime risk of breast cancer based on the Tyrer-Cuzick Model is 1.7%. COMPARISON: Mammography: 09/26/2021, 12/03/2020, 11/10/2018, 07/29/2017 TECHNIQUE: Digital breast tomosynthesis is performed in both the craniocaudal and mediolateral oblique views along with computer-aided detection (CAD). Synthesized 2D images are generated from the tomosynthesis. An additional right 3-D MLO view was performed with nipple in profile. FINDINGS: There are scattered areas of fibroglandular density (ACR BI-RADS breast composition Category b). There are no suspicious masses, suspicious grouped calcifications, or areas of architectural distortion. The parenchymal pattern is stable from prior exams. There are bilateral vascular calcifications. MM/MM tomosynthesis screening BI IMPRESSION: No mammographic evidence of malignancy. ASSESSMENT: BI-RADS BI-RADS 2 - Benign Findings RECOMMENDATION: Routine annual mammography screening. 1 year F/U This examination should not preclude the clinical evaluation of a suspicious palpable abnormality. This patient's information was entered into a reminder system with a target due date for their next mammogram. Dictated By: Chris Adames MD Signed By: <Electronically signed by Chris Adames MD in OV> 01/30/23 1007 DD/ 1220 TD/TT: Housekeeper And Laundry Assistant: Mary Rivera MD IMG BI PROCEDURES Kar peter Result - Final * Lipid Panel, Standard (11/26/2022 8:01 AM EDT) Cholesterol, Total 116 <200 mg/dL [facility] HDL Cholesterol 63 > OR = 50 mg/dL [facility] Triglycerides 63 <150 mg/dL [facility] LDL Cholesterol 39 mg/dL (calc) [facility] Comment: Reference range: <100 Desirable range <100 mg/dL for primary prevention; ?? <70 mg/dL for patients with CHD or diabetic patients with > or = 2 CHD risk factors. LDL-C is now calculated using the Kirill-Aguirre calculation, which is a validated novel method providing better accuracy than the Friedewald equation in the estimation of LDL-C. Kirill SS et al. ALEXANDER. 2013;310(19): 8277-1362 (http://education.[employer]/faq/MXJ725) Chol/HDLC Ratio 1.8 <5.0 (calc) [facility] Non-HDL Cholesterol 53 <130 mg/dL (calc) [facility] Comment: For patients with diabetes plus 1 major ASCVD risk factor, treating to a non-HDL-C goal of <100 mg/dL (LDL-C of <70 mg/dL) is considered a therapeutic option. Blood Venous blood specimen / Unknown 11/26/2022 8:01 AM EDT 11/26/2022 8:01 AM EDT Narrative [facility] - 11/26/2022 10:02 PM EDT FASTING:YES FASTING: YES Mary Rivera MD LAB BLOOD ORDERABLES Final Result [facility] [address], [place] [address] [facility] [place] [facility] [address] [place] [address] from Last 3 Months or Most Recently Relevant to Health Maintenance Insurance [facility] Care Teams Shelf Filler Relationship Specialty Start Date End Date Mary Rod MD [address] [place] [id number] PCP - General Family Medicine 02/07/22
--- OUTSIDE RECORDS SUMMARY | 2024-07-19 08:38 | XMS_ITS | Encounter Summary ---
Author Organization [facility] Address [address] [facility] [address] [place] [address] Care Team Providers Care Prosthetist Name Role Phone Mary Rod MD Primary Care Provide r Reason for Visit * Reason Comments Med Refill Encounter Details Date Type Department Care Team (Late st Contact Info) Description 07/10/2024 Refill [facility] MED[facility]INE [address] [place] [address] Mary Rod MD [address] [place] [address] Social History Tobacco Use Types Packs/Day Years [...] Description 08/12/2024 11:15 AM EST Office Visit [facility]INE [address] [place] [address] Mary Rod MD [address] [place] [address] documented as of this encounter Goals Goal [...] documented as of this encounter Care Teams Prosthetist Relationship Specialty Start Date End Date Mary Rod MD [address] [place] [address] PCP - General Family Medicine 02/07/22 documented as of this encounter
--- OUTSIDE RECORDS SUMMARY | 2024-07-19 08:39 | XMS_ITS | Encounter Summary ---
Author Organization [facility] Address [address] [facility] [address] [place] [address] Care Team Providers Care Welder Boilermaker Name Role Phone Mary Rod MD Primary Care Provide r Reason for Visit * Reason Comments Med Refill Encounter Details Date Type Department Care Team (Late st Contact Info) Description 04/13/2023 Refill [facility] MEDICINE [address] [place] [address] Yara Tompkins MD [address] [place] [address] Social History Tobacco Use Types Packs/Day Years Used Date Smoking Tobacco: Never Passive Smoke Exposure: Never Smokeless Tobacco: Never Alcohol Use Standard Drinks/Week Comments Never 0 (1 standard drink = 0.6 oz pur e alcohol) Depression Answer Date Recorded Patient Health Questionnaire-9 Score 0 10/28/2022 Housing Stability Answer Date Recorded What is your housing situation today? I have luisa sascha 04/07/[address] you li ve. Do you have problems with any of the following? None of the above 04/07/2023 Food Insecurity Answer Date Recorded Within the past 12 months, y ou worried that your food would run out before you got money to buy more: Never True 04/07/2023 Within the past 12 months,th e food you bought just didn't last and you didn't have enough money to get more: Never True Transportation Answer Date Recorded In the past 12 months, has l ack of transportation kept you from medical appts, meetings, work or from getting things needed for daily living? No 04/07/2023 Utilities Answer Date Recorded In the past 12 months, has t he electric, gas, oil or water company threatened to shut off services in your home? No 04/07/2023 Depression Answer Date Recorded Patient Health Questionnaire-2 [...] Description 08/12/2024 11:15 AM EST Office Visit [facility] [address] [place], [place] [phone] Mary Rod MD [address] [place], [place] [phone] documented as of this encounter Goals Goal [...] documented as of this encounter Care Teams Welder Boilermaker Relationship Specialty Start Date End Date Mary Rod MD [address] [place], [place] [phone] PCP - General Family Medicine 02/07/22 documented as of this encounter
--- OUTSIDE RECORDS SUMMARY | 2024-07-19 08:39 | XMS_ITS | Encounter Summary ---
Author Organization [facility] Address [address] [address] Phone Care Team Providers Care Marine Welder Name Role Phone Natalee Rooney MD Primary Care Provider [phone] Encounter Details Date Type Department Care Team (Late st Contact Info) Description 07/05/2024 Orders Only [facility] [address] [place] [address] Rober Acharya MD [address] [address] Stage 3a chronic kidney disease (HCC); Renal disorder due to type 2 diabetes mellitus <Diabetic nephropathy> (HCC) Social History Tobacco Use Types Packs/Day Years Used Date Smoking Tobacco: Never Smokeless Tobacco: Never Alcohol Use Standard Drinks/Week Comments No 0 (1 standard drink = 0.6 oz pur e alcohol) Comments Unknown Sex and Gender Information Value Date Recorded Sex Assigned at Not on file Legal Sex Female 5:23 PM EST Gender Identity Not on file Sexual Orientation Not on file documented as of this encounter Plan of Treatment Upcoming Encounters Date Type Department Care Team (Late st Contact Info) Description 10/10/2024 2:00 PM EDT Office Visit [facility] [address] [place] [address] Rober Acharya MD [address] [address] documented as of this encounter Visit Diagnoses Diagnosis Stage 3a chronic kidney disease (HCC) Renal disorder due to type 2 diabetes mellitus <Diabetic nephropathy> (HCC) documented in this encounter Care Teams Marine Welder Relationship Specialty Start Date End Date Natalee Rooney MD PCP - General Family Medicine 02/05/21 documented as of this encounter
--- OUTSIDE RECORDS SUMMARY | 2024-07-19 08:39 | XMS_ITS | Clinical Summary ---
Author Organization [facility] Address [address] [address] Care Team Providers Care Diabetes Educator Name Role Phone Natalee Rooney MD Primary Care Provider [phone] Allergies Active Allergy Reactions Criticality Noted Date Comments Oxycodone-Acetaminophen 01/07/2021 Medications aspirin (ST AMISHA) 81 MG EC tablet Take 81 mg by mouth 1 (one) time each day Active Multiple Vitamins-Minera ls (CENTRUM ADULTS PO) Take 1 tablet by mouth 1 (one) time each day Active venlafaxine XR (EFFEXOR-XR) 75 MG 24 hr capsule Take 75 mg by mouth 1 (one) time each day Active venlafaxine XR (EFFEXOR-XR) 150 MG 24 hr capsule Take 150 mg by mouth 1 (one) time each day 12/31/2020 Active folic acid (FOLVITE) 1 MG tablet Take 1,000 mcg by mouth 1 (one) time each day 12/31/2020 Active metFORMIN XR (GLUCOPHAGE-XR) 500 MG 24 hr tablet Take 500 mg by mouth 2 (two) times a day 12/31/2020 Active omeprazole (PriLOSEC) [address] capsule Take 40 mg by mouth 2 (two) times a day Active topiramate (TOPAMAX) 100 MG tablet Take 100 mg by mouth 1 (one) time each day Active calcium carbonate (Tums Ultra 1000) 1000 MG chewable tablet Chew 1 tablet 2 (two) times a day Active Acetaminophen (Tylenol) 325 MG capsule Take 2 capsules by mouth 4 (four) times a day if needed Active Cholecalciferol 125 MCG (5000 UT) tablet Take 2 tablets by mouth 1 (one) time each day Active gabapentin (NEURONTIN) 400 MG capsule Take 400 mg by mouth 3 (three) times a day Active Active Problems Problem Noted Date Diagnosed Date Type 2 diabetes mellitus 01/26/2023 023 Edema 01/26/2023 01/26/2023 Chronic kidney disease, stage 2 (mild) 3 Acute nontraumatic kidney injury 01/19/2023 Overview (01/26/2023): Last Assessment & Plan: maintain good control of blood pressure and glucose Do not take NSAIDs Drink plenty of water Degeneration of lumbar intervertebral disc 10/2801/26/2023 Overview (01/26/2023): Last Assessment & Plan: I will generate prescription for recliner Disorder of lumbar disc 07/15/2022 01/27/20 23 Overview (01/26/2023): S/p MILD procedure 06/2022 Last Assessment & Plan: I will generate prescription for recliner C/w tramadol C/w acetaminophen C/w lidocaine patches Stage 3a chronic kidney disease 01/07/2022 Diffuse spasm of esophagus 06/25/202101/26 Hypertensive renal disease 01/07/2021 Renal disorder due to type 2 diabetes mellitus 0 01/07/2021 Allergic rhinitis 05/22/2014 01/26/2023 Gastroesophageal reflux disease 05/22/2014 01/26/2023 Abdominal pain 01/12/2014 01/26/2023 Chronic kidney disease stage 2 12/29/2012 Dyslipidemia 09/14/2012 01/26/2023 Essential hypertension 07/06/2012 3 Overview (01/26/2023): Last Assessment & Plan: - Aerobic exercise to reduce BP. Initial [...] prescriptions without first consulting health care provider Anemia 01/19/2012 01/26/2023 Asthma 01/05/2012 01/26/2023 Depressive disorder 12/11/2011 01/26/2023 Constipation 12/11/2011 01/26/2023 Adult failure to thrive 12/11/2011 01/27/20 23 Acquired hypothyroidism 12/11/2011 01/27/20 23 Diabetes mellitus 12/11/2011 01/26/2023 Overview (01/26/2023): Last Assessment & Plan: Controlled continue with same interventions Dysphagia 12/11/2011 01/26/2023 Resolved Problems Problem Noted Date Diagnosed Date Resolved Date Left flank pain 01/07/2021 01/07/2021 Encounters Date Type Department Care Team Description 07/05/2024 Orders Only [facility] [address] [place], [place] [address] Rober Acharya MD Stage 3a chronic kidney disease (HCC); Renal disorder due to type 2 diabetes mellitus <Diabetic nephropathy> (HCC) from Last 3 Months Immunizations Name Administration Dates Next Due H1N1 Inj 05/14/2016 HPV, Quadrivalent 05/16/2009,01/31/2008,07/28/19 07 Influenza (IM) Preservative Free 04/05/2012 Influenza Split 03/09/2013 Influenza Split High Dose Pr eservative Free IM 03/03/2017 Influenza Vaccine, Quadrival ent, Adjuvanted 03/04/2021 Influenza, Injectable, Madin Franca Canine Kidney, Preservative Free 08/23/2015 Influenza, Quadrivalent, Pre servative Free 03/19/2021,03/29/2019,03/30/2018,04/30 Influenza, Quadrivalent, Wit h Preservative 03/08/2015 Influenza, Unspecified 03/10/2022,2019,03/20/2014,04/07 Pneumococcal Conjugate 13-Valent 04/23/2021 Pneumococcal Polysaccharide 04/26/2017,1 ,04/17/2011,03/15 Shingrix 03/31/2022,01/28/2022 Td 04/07/2007 Tdap 08/27/2017 Zoster 03/21/2014 Family History Medical History Relation Comments Cancer Mother stomach Diabetes Mother Kidney disease Mother Hypertension Sibling 1 Diabetes Sibling 2 Heart disease Sibling 3 Relation Status Comments Father Mother Sibling 1 Sibling 2 Sibling 3 Social History Tobacco Use Types Packs/Day Years Used Date Smoking Tobacco: Never Smokeless Tobacco: Never Alcohol Use Standard Drinks/Week Comments No 0 (1 standard drink = 0.6 oz pur e alcohol) Comments Unknown Sex and Gender Information Value Date Recorded Sex Assigned at Not on file Legal Sex Female 5:23 PM EST Gender Identity Not on file Sexual Orientation Not on file Last Filed Vital Signs Vital Sign Reading Time Taken Comments Blood Pressure 117/62 04/04/2024 3:25 PM EDT Pulse 97 04/04/2024 3:25 PM EDT Temperature - - Respiratory Rate - - Oxygen Saturation 97% 04/04/2024 3:25 PM EDT Inhaled Oxygen Concentration - - Weight 64.1 kg (141 lb 6.4 oz) 04/04/2024 3:25 P M EDT Height 152.4 cm (5') 04/04/2024 3:25 PM EDT Body Mass Index 27.62 04/04/2024 3:25 PM EDT Plan of Treatment Upcoming Encounters Date Type Department Care Team (Late st Contact Info) Description 10/10/2024 2:00 PM EDT Office Visit [facility] [address] [place] [address] Rober Acharya MD [address] [facility] [address] [place] [address] Health Maintenance Due Date Last Done Comments Breast Cancer Screening 1950 Colorectal Cancer Screening: Annual FOBT 11/14/2000 Colorectal Cancer Screening: Colonoscopy 11/14/2000 Colorectal Cancer Screening: Sigmoidoscopy 11/14/2000 Diabetes: Ophthalmology Exam 07/16/2020 Diabetes: Pedal Pulse Checked 07/16/2020 Diabetes: Sensory Foot Exam 07/16/2020 Diabetes: Visual Foot Exam 07/16/2020 Influenza Vaccine (#1) 2024 , 03/19/2021, 03/04/2021, Additional history exists Diabetes: Hemoglobin A1C 04/08/2024 01/07/2024 Pneumococcal Vaccine: 65+ Years Completed 04/23/2021, 04/26/2017, 04/05/2012, Additional history exists Hepatitis B Vaccine Aged Out No longe r eligible based on patient's age to complete this topic Insurance [facility] ([id number]) [facility] ([id number]) Care Teams Diabetes Educator Relationship Specialty Start Date End Date Natalee Rooney MD PCP - General Family Medicine 02/05/21
--- OUTSIDE RECORDS SUMMARY | 2024-07-19 08:39 | XMS_ITS | Data Portability ---
Author Organization [employer], [place] [facility] Address [address] [place] [address] Care Team Providers Care Physician Anesthesiologist Name Role Phone HIM [facility] OTHER [facility] Referring Provider Assessment Encounter Date Assessment Date Assessment LastModified by Organization Details LastModified Time 12/14/2023 12/14/2023 Ms. Hayley Shannon is a 73yoF w/ a PmHx of CHF (EF 20-30%), Dm2, CKD, recent NSTEMI who is seen today for further evaluation of a headache. Ms. Shannon reports that she has had a mild diffuse headache for the past few days that radiates towards her neck and shoulder. She has been taking OTC medication at home without significant relief and today requested an [facility] evaluation. No vision changes or trauma. She believes that her headache is 2/2 dehydration, noting that she just doesn't feel thirsty but has noticed that she had darker urine and just overall feels dehydrated. VSS> Medic on site reports no acute distress, no LE edema. Given 250cc of IVF which she tolerated well and then given an additional 250cc (total 500cc). She continues to endorse muscle pain and a headache and is given 1g of IV magnesium. Not a great toradol candidate given brilinta and underlying CHF and will avoid today. [email or web address] Not available 12/14/2023 12:22:02 06/06/2024 06/06/2024 I provided real -time medical direction via phone for this encounter, and was available for additional phone based assistance as needed. I have reviewed and agree with the Assessment and Plan as documented by the Program Supervisor. We discussed the diagnostic uncertainty of home visits and the risk associated with this. In this case the patient and I felt this to be an acceptable and reasonable amount of risk given the benefit of avoiding an ED visit. The patient given the opportunity to ask questions. Advised if develops increasing or changing CP/severe SOB/turning blue/uncontrolle d n/v/d or black/bloody emesis or stool/ AMS/ syncope/ hi fever unresponsive to APAP(patient has Tylenol at night advised may take it 4 times a day )to call 911- verbalized understanding of instruction [email or web address] Not available 06/06/2024 22:29:59 Plan of Treatment Reminders Order Date Submit Date Provider Last Modified By Organization Details Last Modified Time Details Appointments None recorded. Lab rapid flu (A+B) 2023 [email or web address] [facility], [address] [place] [address], [id number], 4 12:27:12 rapid SARS CoV 2 Ag, QL IA, respiratory specimen 2023 [email or web address] 0 [facility], [address] [place] [address], [id number], 4 12:27:12 rapid strep group A, throat 2023 [email or web address] 0 [facility], [address] [place] [address], [id number], 4 12:27:12 BMP, serum or plasma 2023 [email or web address] 0 [facility], [address] [place] [address], [id number], 12:27:12 Referral None recorded. Procedures None recorded. Surgeries None recorded. Imaging None recorded. Medication Orders albuterol sulfate 2.5 mg/3 mL (0.083 %) solution for nebulizatio n 2023 [email or web address] 0 Not available 12:27:12 azithromyci n 250 mg tablet 2023 024 [email or web address] 0 Not available 4 12:27:12 azithromyci n 250 mg tablet 2023 [facility], [address], [place], [id number], 4 10:06:34 potassium chloride ER 20 mEq tablet,exte nded release 2023 [email or web address] 0 Not available 4 12:27:12 prednisone 20 mg tablet 2023 [email or web address] Not available 4 12:27:12 prednisone 20 mg tablet 2023 [facility], [address] [place] [address], [id number], 4 10:06:35 Mucinex DM 30 mg-600 mg tablet,exte nded release 12 hr 2023 [facility], [address] [place] [address], [id number], 4 12:41:21 Patient TargetsNo targets recorded. Patient InstructionsNo instructions recorded. Reason for Referral None Reported. Results Created Date Observation Date Name Description Value Unit Range Abnormal Flag Note LastModifiedBy Organization Detail LastModifiedTime 06/06/20 24 06/06/2024 rapid strep group A, throa t Strep negati ve Not Available [facility] [address] [place] [address], [id number], 06/06/2024 11:26:51 06/06/20 24 06/06/2024 rapid SARS CoV 2 Ag, QL IA, respi rator y speci men rapid SARS CoV 2 Ag, QL IA, respiratory specimen negati ve Not Available [facility] [address] [place] [address], [id number], 06/06/2024 11:26:50 06/06/20 24 06/06/2024 rapid flu (A+B) Flu negati ve Not Available [facility] [address] [place] [address], [id number], 06/06/2024 11:26:49 Result Notes None recorded. Medical Equipment None Reported. Allergies No known drug allergies Medications Name Sig Start Date Stop Date Status Note LastModified by Organization Details LastModified Time medbox status USE DIRECTED active Not Available Not Available No t Available sorbugen/cet iriz/albuter ol 50 each RICARDO 10 CC/ML FRANCESCA GARVIN active Not Available Not Available N ot Available cyclobenzapr ine 10 mg tablet TAKE 1 TABLET BY MOUTH AT BEDTIME FOR 10 DAYS active Not Available Not Available No t Available amoxicillin 500 mg capsule TAKE 1 CAPSULE BY MOUTH EVERY MORNING, NOON, AND EVENING active Not Available Not Available No t Available terbinafine HCl 1 % topical cream APPLY TOPICALLY TO AFFECTED AREA(S) TWICE DAILY active Not Available Not Available Not Available acetaminophe n 325 mg tablet TAKE 2 TABLETS BY MOUTH EVERY 6 HOURS NEEDED FOR PAIN OR FEVER FOR FOURTEEN DAYS active Not Available Not Available No t Available venlafaxine ER 75 mg capsule,exte nded release 24 hr TAKE 1 CAPSULE BY MOUTH EVERY MORNING active Not Available Not Available No t Available gabapentin 600 mg tablet TAKE 1 TABLET BY MOUTH THREE TIMES DAILY IN THE MORNING, AT NOON, AND AT BEDTIME active Not Available Not Available N ot Available ipratropium 0.5 mg-albuterol 3 mg (2.5 mg base)/3 mL nebulization soln INHALE 1 AMPULE USING A NEBULIZER FOUR TIMES DAILY active Not Available Not Available No t Available albuterol sulfate 2.5 mg/3 mL (0.083 %) solution for nebulization Inhale 3 mL by nebulizatio n route. 2023 active Not Available Not Available Not Avai lable azithromycin 250 mg tablet TAKE 1 TABLET BY MOUTH EVERY DAY WITH FOOD FOR 4 DAYS. START 06/07. active Not Available Not Available No t Available nitroglyceri n 0.3 mg sublingual tablet DISSOLVE 1 TABLET UNDER THE TONGUE EVERY 5 MINUTES NEEDED FOR CHEST PAIN. CALL 911 IF NO RELIEF active Not Available Not Available No t Available metoprolol succinate ER 50 mg tablet,exten ded release 24 hr TAKE 1 TABLET BY MOUTH EVERY MORNING active Not Available Not Available No t Available prednisone 20 mg tablet TAKE 2 TABLETS BY MOUTH EVERY DAY FOR 3 DAYS. START 06/07. active Not Available Not Available No t Available isosorbide mononitrate ER 30 mg tablet,exten ded release 24 hr TAKE 1 TABLET BY MOUTH EVERY MORNING active Not Available Not Available No t Available clonazepam 1 mg tablet TAKE 1 TABLET BY MOUTH THREE TIMES DAILY NEEDED active Not Available Not Available No t Available venlafaxine ER 150 mg capsule,exte nded release 24 hr TAKE 1 CAPSULE BY MOUTH EVERY MORNING active Not Available Not Available No t Available cyanocobalam in (vit B-12) 1,000 mcg tablet TAKE 1 TABLET BY MOUTH EVERY MORNING active Not Available Not Available No t Available bacitracin 500 unit/gram topical ointment APPLY 1 GRAM TOPICALLY TWICE DAILY TO BOTH HEELS active Not Available Not Available No t Available topiramate 25 mg tablet TAKE 1 TABLET BY MOUTH EVERY EVENING active Not Available Not Available No t Available amlodipine 5 mg tablet TAKE 1 TABLET BY MOUTH EVERY MORNING active Not Available Not Available No t Available valacyclovir 500 mg tablet TAKE 1 TABLET BY MOUTH TWICE DAILY IN THE MORNING AND IN THE EVENING FOR 3 DAYS active Not Available Not Available No t Available aspirin 81 mg tablet,delay ed release TAKE 1 TABLET BY MOUTH EVERY MORNING active Not Available Not Available No t Available tramadol 50 mg tablet TAKE 1 TABLET BY MOUTH FOUR TIMES DAILY active Not Available Not Available Not Available acetaminophe n 500 mg tablet TAKE 2 TABLETS BY MOUTH EVERY 6 HOURS NEEDED FOR PAIN OR FEVER active Not Available Not Available No t Available acetaminophe n ER 650 mg tablet,exten ded release TAKE 2 TABLETS BY MOUTH EVERY 8 HOURS NEEDED FOR MILD PAIN. DO NOT BREAK, CRUSH, DISSOLVE OR CHEW. active Not Available Not Available No t Available oxycodone-ac etaminophen 5 mg-325 mg tablet TAKE 1 TABLET BY MOUTH EVERY 6 HOURS NEEDED FOR SEVERE PAIN active Not Available Not Available Not Available isosorbide mononitrate ER 60 mg tablet,exten ded release 24 hr TAKE 1 TABLET BY MOUTH EVERY MORNING active Not Available Not Available No t Available famotidine 20 mg tablet TAKE 1 TABLET BY MOUTH EVERY DAY active Not Available Not Available No t Available amlodipine 10 mg tablet TAKE 1 TABLET BY MOUTH EVERY MORNING active Not Available Not Available No t Available pantoprazole 40 mg tablet,delay ed release TAKE 1 TABLET BY MOUTH TWICE DAILY IN THE MORNING AND IN THE EVENING active Not Available Not Available No t Available levothyroxin e 125 mcg tablet TAKE 1 TABLET EVERY MORNING BEFORE BREAKFAST active Not Available Not Available No t Available lidocaine 5 % topical patch APPLY 1 PATCH TOPICALLY TO SKIN, LEAVE ON FOR 12 HOURS AND OFF FOR 12 HOURS DIRECTED active Not Available Not Available No t Available albuterol sulfate 2 mg/5 mL oral syrup active Not Available Not Available Not Available losartan 25 mg tablet TAKE 1 TABLET BY MOUTH DAILY active Not Available Not Available Not Available nitroglyceri n 0.4 mg sublingual tablet DISSOLVE 1 TABLET UNDER THE TONGUE EVERY 5 MINUTES NEEDED FOR CHEST PAIN. CALL 911 IF NO RELIEF. maximum 3 TABLETS active Not Available Not Available No t Available folic acid 1 mg tablet TAKE 1 TABLET BY MOUTH EVERY MORNING active Not Available Not Available No t Available montelukast 10 mg tablet TAKE 1 TABLET BY MOUTH AT BEDTIME active Not Available Not Available No t Available bisacodyl 5 mg tablet,delay ed release TAKE 3 TABLETS BY MOUTH EVERY DAY AT BEDTIME active Not Available Not Available No t Available furosemide 20 mg tablet TAKE 1 TABLET BY MOUTH EVERY OTHER DAY active Not Available Not Available No t Available lorazepam 1 mg tablet TAKE 1 TABLET BY MOUTH 30 MINUTES prior TO llegando a el procedimien to active Not Available Not Available No t Available zolpidem 10 mg tablet TAKE 1 TABLET BY MOUTH AT BEDTIME active Not Available Not Available No t Available metformin ER 500 mg tablet,exten ded release 24 hr TAKE 1 TABLET BY MOUTH TWICE DAILY IN THE MORNING AND IN THE EVENING WITH FOOD active Not Available Not Available No t Available clotrimazole 1 % topical cream APPLY TO SKIN AND TOENAILS EVERY DAY FOR 12 WEEKS active Not Available Not Available No t Available metocloprami de 10 mg tablet TAKE 1 TABLET BY MOUTH FOUR TIMES DAILY active Not Available Not Available Not Available levothyroxin e 112 mcg tablet TAKE 1 TABLET BY MOUTH EVERY DAY BEFORE BREAKFAST active Not Available Not Available No t Available amoxicillin 875 mg-potassium clavulanate 125 mg tablet TAKE 1 TABLET BY MOUTH TWICE DAILY FOR FOURTEEN DAYS active Not Available Not Available No t Available Ventolin HFA 90 mcg/actuatio n aerosol inhaler INHALE 2 PUFFS BY MOUTH EVERY 4 HOURS NEEDED active Not Available Not Available No t Available Gas Relief (simethicone ) 180 mg capsule TAKE 1 CAPSULE BY MOUTH FOUR TIMES DAILY active Not Available Not Available Not Available azithromycin 500 mg tablet TOME RAS TABLETA DIARIAMENTE active Not Available Not Available Not Available rosuvastatin 40 mg tablet TAKE 1 TABLET BY MOUTH AT BEDTIME active Not Available Not Available No t Available topiramate 50 mg tablet TAKE 1 TABLET BY MOUTH AT BEDTIME active Not Available Not Available No t Available Mucinex DM 30 mg-600 mg tablet,exten ded release 12 hr Take 1 tablet every 12 hours by oral route, for cough/conge stion. 2023 active Not Available Not Available Not Avai lable lactulose 10 gram/15 mL oral solution TAKE 30 ML BY MOUTH THREE TIMES DAILY active Not Available Not Available No t Available Nyamyc 100,000 unit/gram topical powder APPLY TO THE AFFECTED AREA(S) TOPICALLY TWICE DAILY active Not Available Not Available Not Available budesonide-f ormoterol HFA 160 mcg-4.5 mcg/actuatio n aerosol inhaler INHALE 2 PUFFS BY MOUTH TWICE DAILY. RINSE MOUTH AFTER USING. active Not Available Not Available No t Available FeroSul 325 mg (65 mg iron) tablet TAKE 1 TABLET BY MOUTH EVERY MORNING active Not Available Not Available No t Available diclofenac 1 % topical gel APPLY 2 GRAMS TO AFFECTED AREA(S) TWICE DAILY IN THE MORNING AND AT BEDTIME NEEDED FOR PAIN active Not Available Not Available No t Available Creon 24,000-76,00 0-120,000 unit capsule,samara yed release TAKE 1 CAPSULE BY MOUTH TWICE DAILY active Not Available Not Available No t Available Certavite-An tioxidant 18 mg-400 mcg tablet TAKE 1 TABLET BY MOUTH EVERY MORNING WITH FOOD active Not Available Not Available No t Available Brilinta 90 mg tablet TAKE 1 TABLET BY MOUTH TWICE DAILY IN THE MORNING AND IN THE EVENING active Not Available Not Available No t Available Linzess 290 mcg capsule TAKE 1 CAPSULE BY MOUTH EVERY MORNING active Not Available Not Available No t Available Farxiga 10 mg tablet TAKE 1 TABLET BY MOUTH EVERY MORNING active Not Available Not Available No t Available potassium chloride ER 20 mEq tablet,exten ded release Take 2 tablets by oral route. 2023 active Not Available Not Available Not Avai lable Trulicity 0.75 mg/0.5 mL subcutaneous pen injector INJECT ONE PEN (=0.75MG) SUBCUTANEOU SLY ONCE A WEEK DIRECTED active Not Available Not Available No t Available Entresto 24 mg-26 mg tablet TAKE 1 TABLET BY MOUTH TWICE DAILY IN THE MORNING AND IN THE EVENING active Not Available Not Available No t Available Dologesic (w-dexbromph enirmn) 500 mg-1 mg tablet TOME DOS TABLETA CADA SEIS HORAS active Not Available Not Available No t Available Trelepaddy Ellipta 200 mcg-62.5 mcg-25 mcg powder for inhalation INHALE 1 PUFF BY MOUTH EVERY DAY AT THE SAME TIME RINSE MOUTH AFTER USING active Not Available Not Available Not Available Vitals Date Recorded Body weight Respiratory rate Body temperature Body height Oxygen saturation Oxygen saturation in Arterial blood by Pulse oximetry Heart rate Systolic blood pressure Diastolic blood pressure Provider Name and Address Organization Details Last Updated DateTime 4 59703.0 4 g 16 /min 98 [degF] 152.4 cm 100 % 100 % 68 /min 100 mm[Hg] 69 mm[Hg] Not Available [facility] - [facility] 4 11:40:00 Date Recorded Heart rate Oxygen saturation Oxygen saturation in Arterial blood by Pulse oximetry Respiratory rate Body temperature Systolic blood pressure Diastolic blood pressure Provider Name and Address Organization Details Last Updated DateTime 4 78 /min 100 % 100 % 18 /min 98 [degF] 106 mm[Hg] 53 mm[Hg] Not Available [facility] 4 11:21:28 Date Recorded Body height Provider Name an d Address Organization Details Last Updated DateTime 06/06/2024 152.4 cm Suzy Caldera [address] [place] [address],[address], [place], [address], [place] [facility] 06/06/2024 12:10:31 Social History None recorded. Functional Status None recorded. Mental Status None recorded. Family History Nothing Reported. Medical History No medical history recorded. Gynecological HistoryNo gynecological history recorded. Obstetrics History GPAL:G 0 P 0 0 0 0 Past Encounters Encounter ID Performer Location Encounter Start Date Encounter Closed Date Diagnosis/Indication Diagnosis SNOMED-CT Code Diagnosis ICD10 Code Diagnosis Note [id number] Katelyn Rodriguez MD Main - [address] [address] 12/14/2023 11:35:06 12/14/2023 18:48:14 Headache 45030417 R51.9 [id number] Leilani Pendleton MD [facility] [address] [place] [phone] 06/06/2024 11:21:26 06/06/2024 23:50:20 Upper respiratory infection 95256611 J06.9 w/ exacerbati on of asthma- improved after neb lungs cta but increased cough Will cover with azithromyc in and steroids/v ia Ghanaian language line interprete r made patient aware prednisone will bump her blood sugar over the next few days-blood sugars currently in good control. Advised important to stay hydrated with sugar-free fluids/to use MDI every 4 hours she has 181 pumps left per medic-will call in Mucinex DM made patient aware it is not covered to help loosen sputum and decrease cough.Give n 1 dose long-actin g KCl as prednisone can lower potassium slightly/ and she is currently at 3.6Advised to follow-up with PCP later this week and please call us if she feels she wants/need s another visit. Allergies and pharmacy reviewed Health Concerns Section Related Observation LastModified by Organization Detai ls LastModified Time None Recorded Concern Status LastModified by Organization Details LastModified Time None Recorded Advance Directives Directive None Recorded Payers Encounter Date Sequence Insurance Name Policy Number Policy Vivar Covered Member ID Vivar Member ID Guarantor Name 12/14/2023 1 [facility] - DOS ON OR AFTER 2022 - DUAL ELIGIBLE - FDC OPTIONS AND ONE CARE (MEDICARE REPLACEMENT/ADV ANTAGE - HMO) Hayley Shannon [id number] Hayley Shannon 06/06/2024 1 [facility] - DOS ON OR AFTER 2022 - DUAL ELIGIBLE - FDC OPTIONS AND ONE CARE (MEDICARE REPLACEMENT/ADV ANTAGE - HMO) Hayley Shannon [id number] Hayley Shannon Notes Date Note Type Note Provider Name and Address Organization Details Recorded Time 12/14/2023 text/html HPI: Call returned to Hayley Wang to triage below. Reports having headache x 4 days. Pt also having dizziness. Pt has been using Tylenol and ibuprofen with mild relief. Per pt SBP 130-[address], fever, congestion. Per pt having some intermittent SOB. Pt also endorses back pain. No injury. Pt advised of disposition. Agrees to [facility] as not able to come into [facility]. Confirmed allergies and that no pets in home. Reviewed home care advise, ER precautions and reasons to call back. ................... ................... ................... ................... ................... ................... ................... ........ [facility] Nurse Triage Notes (Rachael Lo): Comments: HPI reviewed. No further information needed to process visit. Program Supervisor POC Test Results from [facility]ardo [facility] - [facility] iSTAT Chem8+ (13:24:48) Na: 142 mEq/L K: 5.0 mEq/L Cl: 110 mEq/L iCa: 1.21 mmol/L TCO2: 22 mmol/L Glu: 86 mg/dL BUN: 11 mg/dL Crea: 0.9 mg/dL Hct: 39 % Hb: 13.3 g/dL A ................... ................... ................... ................... ................... ................... ................... ........ Program Supervisor Note From Gerardo Lazar: [facility] visit for female patient. Pt presents conscious and alert. Pt Ghanaian speaking only so target protection specialist services were used. Pt reports 4 days of headache still present after taking tylenol and ibuprofen. Pt also having pain in area localized to her trapezius muscles bilaterally. Pt acknowledges poor PO intake, and has not been drinking that much water stating she doesn't feel thirsty . Dark colored urine reported. Pt also notes the pain in traps, no clear exertion or strain at onset. Traps palpated and noted to feel tense and inflamed, tender on palpation. V/S taken with BP a little bit low. Pt afebrile. Consulted with [facility] Dr. Rodriguez who advised blood drawn BMP and IV fluids. IV placed and BMP drawn and uploaded to [employer] jen. Dr. Rodriguez ordered 500 cc of normal saline in addition to 1 gram of IV magnesium, both given on scene. Reviewed red flags for ED and PT education provided. ................... ................... ................... ................... ................... ................... ................... ........ Disposition: Fulfilled Katelyn Rodriguez MD [address] [facility],[address], [place], [address], [facility] 12/14/2023 15:10:31 06/06/2024 text/html HPI: Call returned to Hayley Wang to triage below. Reports having asthma sx x 4 days. Pt having cough, fever and wheezing. Pt having to use inhaler Q4H. Pt also endorses ST. Pt had negative home kit for COVID-19 yesterday. Pt having chest tightness with cough. Pt advised of disposition, agrees to [facility] for eval as unable to come into walk in center. Confirmed demographics and allergies. ................... ................... ................... ................... ................... ................... ................... ........ [facility] Nurse Triage Notes (Nayely Arango - RN): Chief Complaints: Asthma, Cough PMH: COPD/Asthma, Hypertension, Hypothyroidism, Asthma, Diabetes Mellitus Type 2, Coronary Artery Disease Comments: HPI reviewed Program Supervisor Organization Information for [facility] Business Legal Name: [employer] Address: [address] [place] [address], Senior Energy Analyst: Mj Krause MD [place] No.: [id number] Program Supervisor POC Test Results from [facility] Rapid COVID antigen (11:12:56) COVID: - Rapid influenza antigen (11:12:57) Flu: - Rapid strep test (11:44:53) Strep: - iSTAT Chem8+ (11:45:02) Na: 144 mEq/L K: 3.6 mEq/L Cl: 110 mEq/L iCa: 1.22 mmol/L TCO2: 22 mmol/L Glu: 132 mg/dL BUN: 11 mg/dL Crea: 0.8 mg/dL Hct: 41 % Hb: 13.9 g/dL A Attachments uploaded as part of this test result can be found under Documents section. ................... ................... ................... ................... ................... ................... ................... ........ Program Supervisor Note From [facility]: [facility] makes pt contact a 73 yo FF CC of cough/cold like [facility] obtains vital signs, [facility] uses target protection specialist services due to language barrier. PT explains she has been sick for 9 days including a fever, cough, congestion, productive phlegm consisting of dark green, pt has a hx of asthma, pt has a metal plate in chest from a resuscitation 4 months ago. PT is complaining of chest pain from the cough and not being able to sleep. [facility] tests for flu and covid, negative, tests for strep negative. PT has no allergies, a medication list is provided to [facility] contacts [facility], [facility] requests an istat which is obtained via butterfly in the left AC and bandaged appropriately, and uploaded. [facility] advises pt has bronchitis. [facility] orders 500mg of azithromycin, 40mg of prednisone, 40meq of potassium which is given po. [facility] also orders a nebulized albuterol treatment, PT reports minor relief from albuterol although pts lungs on reassessment are free of any wheezes. PT is also prescribed antibiotics which she is instructed to began taking tomorrow. [facility] explains red flags such as severe chest pain, severe sob, uncontrolled fever she should call us back or go to the hospital. [facility] also explains pt should stay hydrated and use the prescribed cough syrup to try and loosen up the pehlgm and also reduce her coughing. PT understands. [facility] clears ................... ................... ................... ................... ................... ................... ................... ........ [facility] Consulted: Leilani Pendleton ................... ................... ................... ................... ................... ................... ................... ........ Disposition: Fulfilled Leilani Pendleton MD [address] [facility],[address] [facility], [place], [phone], [facility] [place] 06/06/2024 22:30:16 OBGyn Episode No OBEpisode recorded.
--- NOTE | 2024-07-19 08:54 | A.OFFVIS_ITS ---
Intake Visit Reasons: OV-Lt Distal Rad/Ulnar Styloid ORIF & CTR 04/07/24 Intake Note: Hayley is a 73 year old right hand dominant female who presents today for a follow up and ROM check of her left wrist. She is s/p Left Distal Radius & Ulnar Styloid CRPP & CTR 04/07/24 w/ AR. Patient report intermittent pain that comes and goes. She states OTC medication does not offer her any kind of relief. She finished OT on 07/21/24. Her pain in location on the ulnar aspect of the left wrist and on her left hand palm. Allergies No Known Allergies [No Known Allergies*] Allergy (Verified 07/19/24 08:56) HPI HPI OV-Lt Distal Rad/Ulnar Styloid ORIF & CTR 04/07/24: Details: Hayley is a 73 year old right hand dominant female who presents today for a follow up and ROM check of her left wrist. She is s/p Left Distal Radius & Ulnar Styloid CRPP & CTR 04/07/24 w/ AR. Patient report intermittent pain that comes and goes. She states OTC medication does not offer her any kind of relief. She finished OT on 07/21/24. Her pain in location on the ulnar aspect of the left wrist and on her left hand palm. [facility] Medical History Left hip pain Sacroiliac joint pain Elevated liver enzymes Right knee pain Left lumbar radiculitis Lumbago with sciatica Sepsis Right anterior knee pain Nausea and vomiting Candidiasis of mouth and esophagus Dysuria Medication monitoring encounter Abnormal findings on diagnostic imaging of musculoskeletal system Myocardial infarction Asthma ANGIE (obstructive sleep apnea) Diabetes Esophageal dysmotilities Esophageal candidiasis Pneumonia Cystitis Recurrent UTI (urinary tract infection) Vitamin D deficiency Hypothyroidism Osteoporosis B12 deficiency Iron deficiency anemia IBS (irritable bowel syndrome) Surgical History H/O heart surgery Hx of gastric bypass History of esophagogastroduodenoscopy (EGD) Hx of colonoscopy History of arthroscopy of left shoulder Family History Father No problems noted. 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 With encouragement she could almost bring her fingers closed to a fist and back into extension Patient does report significant pain when doing this Wrist ROM: ~80 degrees pronation ~50 degrees supination ~15 degrees extension ~30 degrees flexion DRUJ stable on exam Fracture site non-tender Psych Appearance: grossly normal Affect: normal affect Attitude: cooperative Assessment & Plan Assessment & Plan (1) Carpal tunnel syndrome of left wrist: Code(s): G56.02 - Carpal tunnel syndrome, left upper limb Category: Medical (2) Closed fracture of left distal radius: Code(s): S52.502A - Unspecified fracture of the lower end of left radius, initial encounter for closed fracture Category: Medical Plan 1. Severe stiffness of left hand and wrist status post left distal radius ORIF DOS 04/07/2024 Patient appears to be recovering fairly well postoperatively Patient is educated about the typical recovery course Occupational therapy reordered for this patient, as I do feel she is benefitting from it and should have more than 1 more appointment Patient is educated on the potential effects of not pushing past minimal discomfort for range of motion of the hand, such as permanent limited function by virtue of stiffness Patient states understanding of this Patient will follow-up in 6 weeks for repeat [id number] check, sooner with any acute concerns Orders: Orders OT Evaluation and Treatment Today G56.02 - Carpal tunnel syndrome, left upper limb, S52.502A - Unspecified fracture of the lower end of left radius, initial encounter for closed fracture Coding Level of Care Code Est Pt Level 3 (06076) Diagnoses Carpal tunnel syndrome of left wrist G56.02 Closed fracture of left distal radius S52.502A
== END 2024-07-19 09:16 | disposition home or self-care (01) ==
PROVIDERS: PCP Internal Medicine
DX: G56.02 Carpal tunnel syndrome, left upper limb (principal); S52.502A Unspecified fracture of the lower end of left radius, initial encounter for closed fracture
CPT/HCPCS: 99213

== ENCOUNTER → 2024-07-19 08:23 | Outpatient (BNVA) | payer OTHER, SELFPAY | PROVIDERS: PCP Internal Medicine | DX: S52.502D Unspecified fracture of the lower end of left radius, subsequent encounter for closed fracture with routine healing (principal); G56.02 Carpal tunnel syndrome, left upper limb | CPT/HCPCS: 99212 ==

== ENCOUNTER 2024-08-25 10:45 | Outpatient (RCR) | payer OTHER, SELFPAY ==
--- NOTE | 2024-06-10 10:24 | MHC.OT.OEV ---
[address] [phone] F: [phone] Occupational Therapy Evaluation Patient Name: Hayley Wang Diagnosis: (L)Ulna styloid process ORIF Date of Onset: 03/31/24 Date of Surgery: 04/07/24 Attending Provider: Ruth Peterson Prescribed Treatment: Follow Up Appointment: History of Current Condition: Patient is a 73 year old female with PMHX of but not limited to [place], DM, Osteoporosis who sustained syncopial episode fall on 03/31 resulting in a fracture of left ulna styloid process. She had a left distal radius ORIF, DRUJ pinning, and carpal tunnel release on 04/07. She was referred by Dr. Peterson for limited ROM and pain. Patient reports 7/10 pain at rest that comes and goes 10/10 with movement. She lives with who has health issues. Her son assist with her and now her. She reported her PLOF (I)ADLs/IADLS but now has difficulty with brushing, bathing, cooking and tying shoes. Significant Medical History: Left hip pain Sacroiliac joint pain Elevated liver enzymes Right knee pain Left lumbar radiculitis Lumbago with sciatica Sepsis Right anterior knee pain Nausea and vomiting Candidiasis of mouth and esophagus Dysuria Medication monitoring encounter Abnormal findings on diagnostic imaging of musculoskeletal system Myocardial infarction Asthma ANGIE (obstructive sleep apnea) Diabetes Esophageal dysmotilities Esophageal candidiasis Pneumonia Cystitis Recurrent UTI (urinary tract infection) Vitamin D deficiency Hypothyroidism Osteoporosis B12 deficiency Iron deficiency anemia IBS Precautions/Contraindications: s/p lumbar decompression Patient Goals: I was dizzy in the kitchen and fell. [place] [facility] [place] Dominance: Observations: QuickDASH Score: Prior Level of Function and Occupation Self Care, Employment, Leisure: (I)ADLs/IADLs watches T.V Living Situation, Family and/or Social Support: , son Current Level of Function and Occupation Self Care, Employment, Leisure: mod (A)ADLs/IADLs Sleep: Impacting sleep Driving: Vision: Balance: Pain Assessment Pain Score: (L)wrist Pain Scale Used: Pain Location and Description: 7/10 at rest that comes and goes 10/10 during movement Aggravating Factors: Alleviating Factors: Tylenol, using ice packs Skin and Soft Tissue Assessment Skin and Soft Tissue: Comments: Nerve assessment Ulnar Nerve: Median Nerve: Radial Nerve: Comments: Sensory Assessment Temperature: Light Touch: Proprioception: Vibration: Comments: Edema Assessment Upper Extremity: Left Impaired Lower Extremity: Comments: Edema Dexterity Assessment Dexterity: Comments: 9 Peg Hole Test= 55.43 Special Tests Comments: AROM(PROM) Strength Cervical Cervical Flexion: Cervical Extension: Cervical Lateral Flexion: Cervical Rotation: Comments: Shoulder Flexion: Extension: Abduction: Internal Rotation: External Rotation: Comments: Flexion: Extension: Abduction: Internal Rotation: External Rotation: Comments: Elbow Flexion: Extension: Pronation: Supination: Comments: Flexion: Extension: Pronation: Supination: Comments: Wrist Flexion: 26* Extension: 7* Ulnar Deviation: 5 Radial Deviation: 7* Comments: Flexion: Extension: Ulnar Deviation: Radial Deviation: Comments: Thumb Thumb CMC Flexion: Thumb MCP Flexion: Thumb IP Flexion: Radial Abduction: Palmar Abduction: [place] (Kapandji 0-10): Comments: Digits Index MCP: PIP: DIP: Long MCP: PIP: DIP: Ring MCP: PIP: DIP: Small MCP: PIP: DIP: Comments: Gross Grasp: Lateral Pinch: Two-Point Pinch: Three-Jaw Jose Martin: Comments: Patient Education Primary Language: Geriatric Case Manager Required: Yes Current Knowledge: Teaching Method: Education Needs Identified on Evaluation: How did patient/family demonstrate learning? Barriers to Learning: Readiness for Learning: Who was educated? Comments: Plan of Care Assessment: Based on initial evaluation patient presents with impaired ROM, pain, edema, and impaired strength. Her CLOF is mod(A) ADLs/IADLs and would benefit from skilled OT therapy in order for her to achieve her PLOF of (I) during self care tasks. Thank your for your referral. STG Duration: 2 weeks Short Term Goals: Patient will report 5/10 pain in wrist Patient will increase wrist extension by 10* Patient will increase wrist flexion by 10* Patient will be (I) with edema management techniques LTG Duration: 4 weeks Nutritional Assistant Goals: Patient will be (I) with HEP Patient will have full wrist AROM Frequency and Duration: The patient will be seen 2x a week for 4weeks Treatment Plan: Therapeutic Exercise Therapeutic Activity Home Exercise Program Patient Education Edema Control ADL Training Ultrasound NMES Iontophoresis Paraffin Fluidotherapy MHP Cold Packs Joint Mobilization Soft Tissue Mobilization Kinesiotaping Other (see comments) Electronically Signed By: Jessica Hemphill OTR/[place]mer, SCOTTT Reviewed/agree with student documentation: Therapist: Please sign and return to therapist, Thank you for your referral.
--- NOTE | 2024-07-29 14:56 | MHC.OT.OP ---
[address] [phone] F: [phone] Occupational Therapy Progress Note Patient Name: Hayley Wang Diagnosis: (L)Ulna styloid process ORIF Date of Surgery: 04/07/24 Date of Evaluation: 06/09/24 Treatments to Date: 11 Cancellations to Date: No Shows to Date: Subjective: It's a lot of pain. Pain Score: 7 Pain Location: (R)wrist Objective Measures: Quick DASH= 47.7 ROM: Wrist extension 15/ 34, flexion 35/59, UD 5, RD 5 Status: Progressing Assessment: Patient was seen for skilled OT progress note. Patient has been willing and eager to participate in therapy but is slowly progressing towards her goals. Since her initial evaluation she has increased her wrist flexion by 9* and extension by 8*. Edema is still present and patient reports sever pain, however it has been noted that when patient performs ROM exercises her pain dramatically decreases. Patient's frequency has been increased to work on ROM to regain function of hand and decrease edema. She continues to require skilled OT intervention for improved wrist ROM, edema management and pain management. Short Term Goals: Patient will report 5/10 pain in wrist Patient will increase wrist extension by 10* Patient will increase wrist flexion by 10* Patient will be (I) with edema management techniques Half-Way Goals: Patient will be (I) with HEP Patient will have full wrist AROM Frequency and Duration: The patient will be seen 3x a week for 4 weeks Treatment Plan: Therapeutic Exercise Therapeutic Activity Home Exercise Program Splinting Patient Education Desensitization/Sensory Re-ed ADL Training Ultrasound NMES Iontophoresis Paraffin Fluidotherapy MHP Cold Packs Joint Mobilization Soft Tissue Mobilization Kinesiotaping Other (see comments) Electronically Signed By: ADRIANE Montalvo/Elmer, CLT Reviewed/agree with student documentation: Therapist:
--- NOTE | 2024-10-11 10:54 | MHC.OT.DC ---
[address] [phone] F: [phone] Occupational Therapy Discharge Note Patient Name: Hayley Wang Provider: Ruth Peterson Diagnosis: (L)Ulna styloid process ORIF Date of Surgery: 04/07/24 Date of Evaluation: 06/09/24 Date of Discharge: Treatments to Date: 15 Cancellations to Date: No Shows to Date: Discharge Status: Discharge Summary: Patient did not return to therapy. Electronically Signed By: ADRIANE Montalvo/Elmer, CLT Reviewed/agree with student documentation: Therapist: Please Sign and return to therapist, thank you for your referral.
== END 2024-10-11 10:54 | disposition home or self-care (01) ==
LOC: HO.OT 10:45
PROVIDERS: PCP Internal Medicine; Visit Provider Orthopaedic Surgery
DX: S52.502D Unspecified fracture of the lower end of left radius, subsequent encounter for closed fracture with routine healing (principal); S52.615D Nondisplaced fracture of left ulna styloid process, subsequent encounter for closed fracture with routine healing; G56.02 Carpal tunnel syndrome, left upper limb
CPT/HCPCS: 97110; 97140; 97165

== ENCOUNTER 2024-09-19 13:22 | Outpatient (REF) | payer OTHER, SELFPAY ==
--- OUTSIDE RECORDS SUMMARY | 2024-09-19 15:51 | XMS_ITS | Clinical Summary ---
Author Organization [employer] Address [address] [place] [address] Care Team Providers Care Senior Systems Programmer Name Role Phone Mary Rod MD Primary [...] for up to 25 doses. 40 tablet Active ipratropium-albut heriberto (Duo-Neb) 0.5-2.5 mg/3 mL nebulizer solution INHALE 1 AMPULE USING A NEBULIZER FOUR TIMES DAILY 180 mL 1 Active terbinafine (LamISIL AT) 1 % creamIndications: Tinea pedis of both feet Apply topically 2 times daily. 30 g Active Additional Information Patient not taking.Reported on 10/28/2023 budesonide-formot heriebrto (Symbicort) 160-4.5 MCG/ACT inhaler INHALE 2 PUFFS BY MOUTH TWICE DAILY. RINSE MOUTH AFTER USING. Active sacubitril-valsar irizarry (Entresto) 24-26 MG tablet [...] mouth in the morning. 30 tablet 11 05/22/2 024 Active albuterol (Ventolin HFA) 108 (90 Base) MCG/ACT inhaler INHALE 2 PUFFS BY MOUTH EVERY 4 HOURS NEEDED 18 g 3 024 Active bacitracin 500 UNIT/GM ointment APPLY 1 [...] by mouth Once per day. Active pancrelipase, Zal-Hchg-Ogie, (Creon) 12020-16476 units capsuleIndication s:Pancreatic insufficiency TAKE 1 CAPSULE BY MOUTH FOUR TIMES DAILY WITH FOOD AND 1 CAPSULE WITH SNACKS DO NOT BREAK, CRUSH, DISSOLVE OR CHEW 120 capsule 3 Active Nyamyc 482955 UNIT/GM powderIndications :Intertrigo APPLY TOPICALLY TO AFFECTED AREA(S) TWICE DAILY 60 g 1 024 Active levothyroxine (Synthroid, Levoxyl) 125 MCG tabletIndications :Acquired hypothyroidism TAKE 1 TABLET BY MOUTH EVERY MORNING BEFORE BREAKFAST 30 tablet Active lidocaine (Xylocaine) 5 % ointmentIndicatio ns:Closed fracture of distal end of left radius, unspecified fracture morphology, initial encounter Apply topically if needed for mild pain. 50 g 1 024 2024 Active metFORMIN XR (Glucophage-XR) 500 MG 24 hr tablet TAKE 1 TABLET BY MOUTH TWICE DAILY IN THE MORNING AND IN THE EVENING WITH FOOD 180 tablet Active Brilinta 90 MG tabletIndications :Essential hypertension TAKE 1 TABLET BY MOUTH TWICE DAILY IN THE MORNING AND IN THE EVENING 60 tablet 3 025 Active montelukast (Singulair) 10 MG tablet TAKE 1 TABLET BY MOUTH AT BEDTIME 30 tablet 3 025 Active sucralfate (Carafate) 1 g tabletIndications :Epigastric pain Take 1 tablet (1 g) by mouth before breakfast, before lunch, before evening meal, and at bedtime. 120 tablet 025 2025 Active Diclofenac Sodium 1 % gelIndications:Le ft hand pain Apply 1 Application topically every 12 (twelve) hours if needed (apply on affected area). 100 g 1 025 Active topiramate (Topamax) 25 MG tablet TAKE 1 TABLET BY MOUTH EVERY EVENING 30 tablet 025 Active Trulicity 0.75 MG/0.5ML solution auto-injector INJECT ONE PEN (=0.75MG) SUBCUTANEOUSLY ONCE A WEEK DIRECTED 6 mL 3 025 Active Farxiga 10 MGIndications:Typ e 2 [...] AT BEDTIME 90 tablet 2 025 Active dulaglutide (Trulicity) 0.75 MG/0.5ML solution pen-injector INJECT ONE PEN (=0.75MG) SUBCUTANEOUSLY ONCE A WEEK DIRECTED 6 mL 3 024 2024 Discontinued Farxiga 10 MGIndications:Typ e 2 diabetes mellitus with chronic kidney disease, without long-term current use of insulin, unspecified CKD stage (CMS/HCC) TAKE 1 TABLET BY MOUTH EVERY MORNING 30 tablet 2 025 2024 Discontinued gabapentin (Neurontin) 600 MG tabletIndications :Spinal stenosis of lumbar region, unspecified whether neurogenic claudication present TAKE 1 TABLET BY MOUTH THREE TIMES DAILY IN THE MORNING, AT NOON, AND AT BEDTIME 90 tablet 2 025 2024 Discontinued Active Problems Problem Noted Date Diagnosed Date Epigastric pain 08/12/2024 Assessment & Plan (08/12/2024 4:25 PM EST): I advise patient to avoid NSAIDs, spicy and acid food, I advise to eat at the same time every day, I advise to elevate the head of the bed and take medications as prescribe Continue with pantoprazole twice daily I will add today sucralfate 1 g before meals as needed Patient will be tested for H. pylori Left hand pain 08/12/2024 Assessment & Plan (08/12/2024 4:25 PM EST): Continue with acetaminophen as needed I will prescribe today diclofenac gel to apply twice a day as needed Unstable gait 05/20/2024 Assessment & Plan (05/24/2024 4:52 PM EST): I will prescribe for patient a quad cane Closed fracture of left distal radius 05/20/2024 Assessment & Plan (05/24/2024 4:53 PM EST): Continue to follow with specialist Coronary artery disease invo lving [place] coronary artery of [place] heart 05/20/2024 Ecchymoses, spontaneous 02/02/2024 Assessment & [...] at this time and symptoms improve w Eduarda FELIX but advise to see her 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 superintendent if needed -has apt w administrative underwriter in 12/2023 Hyperkalemia 09/30/2023 Assessment & Plan [...] 06/12/2023 Acute kidney injury superimposed on CKD ([facility] 01/19/2023 Assessment & Plan (01/19/2023 4:49 [...] specialist Diabetes mellitus 12/11/2011 Assessment & Plan (08/12/2024 4:26 PM EST): Diabetes is: controlled - Lab Results Component Value Date HGBA1C 6.2 (A) 08/12/2024 HGBA1C 6.2 (A) 01/07/2024 HGBA1C 6.4 (A) 07/20/2023 - Lab Results Component Value Date MICROALBUR 0.6 04/19/2021 CREATININE 1.23 03/31/2024 -Changes: none - Diabetic eye exam:up to date - Diabetic foot exam:pending - Continue lifestyle modifications - Continue current medications - Follow up: 3 months Assessment & Plan (01/07/2024 10:12 AM EDT): [...] Encounters Date Type Department Care Team Description 09/09/2024 Refill [facility] [address] [place] [address] Mary Rod MD Type 2 diabetes mellitus with chronic kidney disease, without long-term current use of insulin, unspecified CKD stage (CMS/HCC); Spinal stenosis of lumbar region, unspecified whether neurogenic claudication present 09/07/2024 Refill [facility] [address] [place] [phone] Mary Rod MD 08/18/2024 10:50 AM EST Immunization [facility] [address] [place] [phone] Alexia Guthrie LPN Encounter for immunization (Primary Dx) 08/17/2024 Refill [facility] [address] [place] [phone] Yara Tompkins MD 08/12/2024 11:15 AM EST Office Visit [facility] [address] [place] [phone] Mary Rod MD Epigastric pain (Primary Dx); Type 2 diabetes mellitus with chronic kidney disease, without long-term current use of insulin, unspecified CKD stage (CMS/HCC); Left hand pain 08/12/2024 Travel 08/12/2024 Refill [facility] [address] [place] [phone] Mary Rod MD Essential hypertension 07/29/2024 Patient Outreach [facility] [address] [place] [phone] Mary Rod MD Pre-visit Planning ((Unable to reach for PVP screening, LVM)) 07/13/2024 Refill [facility] [address] [place], [place] [phone] Mary Rod MD 07/10/2024 Refill [facility] [address], [place] [phone] Mary Rod MD 06/21/2024 Refill [facility] [address] [place] [phone] Mary Rod MD Type 2 diabetes mellitus with chronic kidney disease, without long-term current use of insulin, unspecified CKD stage (CMS/HCC); Spinal stenosis of lumbar region, unspecified whether neurogenic claudication present from Last 3 Months Immunizations Name Administration Dates Next Due Diphtheria antitoxin 04/22/2004 HPV, Quadrivalent 05/16/2009,01/31/2008,07/28/19 07 Influenza High-dose Quadriva lent Preservative Free 03/18/2023,03/10/2022,03/06/2020 Influenza Quadrivalent Adjuvanted 03/04/2021 Influenza injectable quadriv alent IIV4 with preservative 03/08/2015 Influenza injectable quadriv alent preservative free 03/19/2021,03/29/2019,03/30/2018,04/30 Influenza, High Dose Seasona l, Preservative Free 08/18/2024,03/03/2017 Influenza, IIV3, injectable 03/20/2014, 7 Influenza, Injectable, MDCK, preservative free 08/23/2015 Influenza, Split (incl. sonia fied surface antigen) 03/09/2013 Influenza, Unspecified 03/10/2022,2019,03/20/2014,04/07 Influenza, seasonal, injecta ble, preservative free 04/05/2012 Novel [id number] 05/14/2016 Pfizer Covid-19 Vaccine 12+ 06/18/2023 Pneumococcal [...] Sign Reading Time Taken Comments Blood Pressure 105/65 08/12/2024 10:44 AM EST Pulse 78 08/12/2024 10:44 AM EST Temperature 37.1 ??C (98.7 ??F) 08/12/2024 10:[address] Respiratory Rate 14 08/12/2024 10:44 AM EST Oxygen Saturation 100% 02/02/2024 11:01 AM EDT Inhaled Oxygen Concentration - - Weight 60 kg (132 lb 3.2 oz) 08/12/2024 10:44 AM EST Height 154.9 cm (5' 1 ) 08/12/2024 10:44 AM EST Body Mass Index 24.98 08/12/2024 10:44 AM EST Plan of Treatment Health Maintenance Due Date Last Done Comments CT Colonography 1950 FIT DNA/Cologuard 1950 FIT 1950 FOBT 1950 Sigmoidoscopy 1950 Diabetes: Foot Exam 11/14/1961 Alcohol/Substance Use Screening 1963 Hepatitis C Screening 11/14/1969 Hepatitis A Vaccines (1 of 2 - Risk 2-dose series) 11/14/1970 Hepatitis B Vaccines (1 of 3 - Risk 3-dose series) 2011 Lipid Panel 11/27/2023 11/26/2022, 110 10/2020, 03/02/2020 COVID-19 Vaccine ( season) 2024 06/18/2023, 03/21/2022, 10/08/2021, Additional history exists Depression Screening 01/06/2025 01/07/2024, 01/07/20 24 SDOH Screening 01/06/2025 01/07/2024 Mammogram 01/08/2025 01/08/2023, 09/13, 09/26/2021, Additional history exists Diabetes: Hemoglobin A1C 02/09/2025 025, 01/07/2024, 07/20/2023, Additional history exists Eye Exam 05/17/2025 05/17/2024, [...] Aged 60 years or older Completed 07/20/2023 Influenza Vaccine Completed 08/18/2024, , 03/10/2022, Additional history exists HIB Vaccines Aged Out No longer eligi [...] Procedure Name Priority Date/Time Associated Diagnosis Comments POCT GLYCATED HEMOGLOBIN, TOTAL Routine 08/12/2024 10:46 AM EST Type 2 diabetes mellitus with chronic kidney disease, without long-term current use of insulin, unspecified CKD stage (CMS/HCC) POCT GLUCOSE Routine 08/12/2024 10:45 AM EST Type 2 diabetes mellitus with chronic kidney [...] Recently Relevant to Health Maintenance Results * (ABNORMAL) POCT HGB A1C (08/12/2024 10:46 AM EST) Hemoglobin A1C 6.2(A) 4.0 - 6.0 % QC Media Lot # [id number] Lot# Expiration Date 1187,026 Blood 08/12/2024 10:4 6 AM EST Mary Rivera MD POINT OF CARE TEST EN TER/EDIT ORDERABLES Final Result * POCT Glucose (08/12/2024 10:45 AM EST) Glucose Blood, POC 155 60 - 200 mg/dL Comment:Vinny BS QC Media Lot # [id number] Lot# Expiration Date [id number] Blood Capillary blood specimen / Unknown 08/12/2024 10:45 AM EST Mary Rivera MD POINT OF CARE TEST EN TER/EDIT ORDERABLES Final Result * Hm Colonoscopy (02/16/2023) Historical Provider HEALTH MAINTENANCE Final Result * BI Mammogram Screening Tomosynthesis Bilateral (01/08/2023 12:20 PM EDT) Anatomical Region Laterality Modality Breast Bilateral Mammography 01/08/2023 12:2 0 PM EDT Narrative 01/30/2023 10:10 AM EDT ? [facility] [place] ? [address] ?[place] [address] ? Mammography Report ? Signed ? Patient: Shannon Felipe,Hayley ?MR#: [id number] ?? [id number] ? : 1950 ?Acct:[id number] ? Age/Sex: 72 / F ?ADM Date: 07/27/23 ? Loc: HO.MAMMO ? Attending Dr: Mary Rivera MD ? Ordering Physician: Mary Rod MD ?Results: ? Date of Service: 01/08/23 ?Follow Up: ? Procedure(s): MM tomosynthesis screening BI ?? Accession Number(s): [id number] ? cc: Mary Rod MD ? EXAMINATION: [...] for their next mammogram. ? Dictated By: ?hCris Adames MD ? Signed By: ?<Electronically signed by Chris Adames MD in OV> ?01/30/23 1007 ? DD/ 1220 ? TD/TT: ? [place] Decorator: ? Procedure Note Donotuseinterpreter, Image - 01/30/2023 [place] [facility] [address] [place] [address] Mammography Report Signed Patient: Slade MarcaMR#: [id number] : 2Acct:[id number] Age/Sex: 72 / FADM Date: 01/08/23 Loc: HO.MAMMO Attending Dr: Mary Rivera MD Ordering Physician: Mary Rodesults: Date of Service: 01/08/23Follow Up: Procedure(s): MM tomosynthesis screening BI Accession Number(s): [id number] cc: Mary Rod MD EXAMINATION: MM SCREENING [...] in OV> 01/30/23 1007 DD/ 1220 TD/TT: [place] Decorator: Result [facility] Mary Rivera MD IMG BI PROCEDURES Kar peter Result - Final * Lipid Panel, Standard (11/26/2022 8:01 AM EDT) Cholesterol, Total 116 <200 mg/dL [employer] [place] [facility] HDL Cholesterol 63 > OR = 50 mg/dL [facility] [place] [facility] Triglycerides 63 <150 mg/dL [employer] [place] [facility] LDL Cholesterol 39 mg/dL (calc) [facility] Comment: Reference range: <100 Desirable range <100 mg/dL for primary prevention; ?? <70 mg/dL for patients with CHD or diabetic patients with > or = 2 CHD risk factors. LDL-C is now calculated using the Kirill-Aguirre calculation, which is a validated novel method providing better accuracy than the Friedewald equation in the estimation of LDL-C. Kirill SS et al. ALEXANDER. 2013;310(19): 9796-8878 (http://education.[employer].YellowHammer/faq/IVJ474) Chol/HDLC Ratio 1.8 <5.0 (calc) [employer] [place] [facility] Non-HDL Cholesterol 53 <130 mg/dL (calc) [facility] Comment: For patients with diabetes plus 1 major ASCVD risk factor, treating to a non-HDL-C goal of <100 mg/dL (LDL-C of <70 mg/dL) is considered a therapeutic option. Blood Venous blood specimen / Unknown 11/26/2022 8:01 AM EDT 11/26/2022 8:01 AM EDT Narrative [facility] - 11/26/2022 10:02 PM EDT FASTING:YES FASTING: YES Mary Rivera MD LAB BLOOD ORDERABLES Final Result [facility] [address] [facility], [place] [address] [facility] [address] [place] [phone] from Last 3 Months or Most Recently Relevant to Health Maintenance Insurance [facility] Care Teams Senior Systems Programmer Relationship Specialty Start Date End Date Mary Rod MD [address] [place] [phone] PCP - General Family Medicine 02/07/22
--- OUTSIDE RECORDS SUMMARY | 2024-09-19 15:51 | XMS_ITS | Encounter Summary ---
Author Organization [employer] Address [address] [place] [address] Care Team Providers Care Air Quality Manager Name Role Phone Mary Rod MD Primary Care Provide r Encounter Details Date Type Department Care Team (Late st Contact Info) Description 11/12/2022 [facility] Health Information Management [address] [place] [address] Mary Rod MD [address] [place] [address] Social History Tobacco Use Types Packs/Day Years [...] as of this encounter Plan of Treatment Not on file documented as of this encounter Goals Goal Patient Goal Type Associated Problems Recent Progress Patient-Stated? Author Record your blood pressure once per day Blood Pressure No Giovany Lin, PharmD Note: When you receive your new BP monitor Short-term: Promote adherence to treatment regimen General Giovany Dixon, PharmD documented as of this encounter Visit Diagnoses Not on filedocumented in this encounter Additional Health Concerns Assessment Noted Time PHQ-9 Depression Total Score: 0 10/29/19 23 9:50 AM EDT documented as of this encounter Care Teams Air Quality Manager Relationship Specialty Start Date End Date Mary Rod MD [address] [place] [phone] PCP - General Family Medicine 02/07/22 documented as of this encounter
--- OUTSIDE RECORDS SUMMARY | 2024-09-19 15:51 | XMS_ITS | Data Portability ---
Author Organization [employer], [place] [facility] [place] Address [address] [place] [address] Care Team Providers Care Sample Builder Name Role Phone HIM [facility] OTHER [facility] Referring Provider Assessment Encounter Date Assessment [...] Assessment and Plan as documented by the Retread Supervisor. We discussed the diagnostic uncertainty of [...] )to call 911- verbalized understanding of instruction [email or web address] Not available 06/06/2024 22:29:59 Plan of Treatment Reminders Order Date Submit Date Provider Last Modified By Organization Details Last Modified Time Details Appointments None recorded. Lab rapid flu (A+B) 2023 024 [email or web address] Main - [facility], [address] [place] [address], [id number] 4 12:27:12 rapid SARS CoV 2 Ag, QL IA, respiratory specimen 2023 024 [email or web address] 0 Main - [facility], [address] [place] [address], [id number] 4 12:27:12 rapid strep group A, throat 2023 024 [email or web address] 0 Main - [facility], [address] [place] [address], [id number] 4 12:27:12 BMP, serum or plasma 2023 024 [email or web address] 0 Main - [facility], [address] [place] [address], [id number] 4 12:27:12 Referral None recorded. Procedures None recorded. Surgeries None recorded. Imaging None recorded. Medication Orders albuterol sulfate 2.5 mg/3 mL (0.083 %) solution for nebulizatio n 2023 [email or web address] Not available 12:27:12 azithromyci n 250 mg tablet 2023 [email or web address] 0 Not available 12:27:12 azithromyci n 250 mg tablet 2023 [facility], [address] [place] [address], [id number], 10:06:34 potassium chloride ER 20 mEq tablet,exte nded release 2023 [email or web address] 0 Not available 4 12:27:12 prednisone 20 mg tablet 2023 [email or web address] 0 Not available 4 12:27:12 prednisone 20 mg tablet 2023 [facility], [address] [place] [address], [id number], 4 10:06:35 Mucinex DM 30 mg-600 mg tablet,exte nded release 12 hr 2023 [facility], [address] [place] [address], [id number], 5 11:34:59 Patient TargetsNo targets recorded. Patient InstructionsNo instructions recorded. Reason for Referral None Reported. Results Created Date Observation Date Name Description Value Unit Range Abnormal Flag Note LastModifiedBy Organization Detail LastModifiedTime 06/06/20 24 06/06/2024 rapid strep group A, throa t Strep negati ve Not Available Main - [facility] ed [address] [place] [address], [id number] 06/06/2024 11:26:51 06/06/20 24 06/06/2024 rapid SARS CoV 2 Ag, QL IA, respi rator y speci men rapid SARS CoV 2 Ag, QL IA, respiratory specimen negati ve Not Available Main - [facility] ed [address] [place] [address], [id number] 06/06/2024 11:26:50 06/06/20 24 06/06/2024 rapid flu (A+B) Flu negati ve Not Available Main - [facility] ed [address] [place] [address], [id number] 06/06/2024 11:26:49 Result Notes None recorded. Medical Equipment None Reported. Allergies No known drug allergies Medications Name Sig Start Date Stop Date Status Note LastModified by Organization Details LastModified Time medbox status USE DIRECTED active Not Available Not Available No t Available sorbugen/cet iriz/albuter ol 50 each RICARDO 10 CC/ML CADA SEIS HORAS active Not Available Not Available N ot [...] Not Available Not Available No t Available Trelegy Ellipta 200 mcg-62.5 mcg-25 mcg powder for [...] Address Organization Details Last Updated DateTime 4 93613.0 4 g 16 /min 98 [degF] 152.4 [...] Updated DateTime 06/06/2024 152.4 cm Suzy Caldera [address] [place] [address],[address], [place], [address], [facility] [employer] 06/06/2024 12:10:31 Social History None recorded. Functional Status None recorded. Mental Status None recorded. Family History Nothing Reported. Medical History No medical history recorded. Gynecological HistoryNo gynecological history recorded. Obstetrics History GPAL:G 0 P 0 0 0 0 Past Encounters Encounter ID Performer Location Encounter Start Date Encounter Closed Date Diagnosis/Indication Diagnosis SNOMED-CT Code Diagnosis ICD10 Code Diagnosis Note [id number] Katelyn Rodriguez MD [employer] [address] [place] [phone] 12/14/2023 11:35:06 12/14/2023 18:48:14 Headache 20894090 R51.9 [id number] [facility]ilani [facility]endleton [facility] [address] [place] [phone] 06/06/2024 11:21:26 06/06/2024 23:50:20 Upper respiratory infection 68490659 J06.9 w/ exacerbati on of asthma- improved after neb lungs cta but increased cough Will cover with azithromyc in and steroids/v ia Macanese language line interprete r made patient aware [...] Viv[employer] Member ID Guarantor Name 12/14/2023 1 [facility] - DOS ON OR AFTER 2022 - DUAL ELIGIBLE - PENITENTIARY OPTIONS AND ONE CARE (MEDICARE REPLACEMENT/ADV ANTAGE - HMO) Hayley Shannon [id number] Hayleyanthony Shannon 06/06/2024 1 [facility] - DOS ON OR AFTER 2022 - DUAL ELIGIBLE - PENITENTIARY OPTIONS AND ONE CARE (MEDICARE REPLACEMENT/ADV ANTAGE - HMO) Hayleyanthony Shannon [id number] [facility] Marian Shannon Notes Date Note Type Note Provider [...] injury. [facility]. [facility]. Confirmed allergies and that no pets in home. Reviewed home care advise, ER precautions and reasons to call back. ................... ................... ................... ................... ................... ................... ................... ........ CRC Nurse Triage Notes (Rachael Lo): Comments: HPI reviewed. No further information needed to process visit. Retread Supervisor POC Test Results from Gerardo Lazar - ALS iSTAT Chem8+ (13:24:48) Na: 142 mEq/L K: 5.0 mEq/L Cl: 110 mEq/L iCa: 1.21 mmol/L TCO2: 22 mmol/L Glu: 86 mg/dL BUN: 11 mg/dL Crea: 0.9 mg/dL Hct: 39 % Hb: 13.3 g/dL A ................... ................... ................... ................... ................... ................... ................... ........ Retread Supervisor Note From Gerardo Lazar: Smart[employer] visit for female patient. Pt presents conscious and alert. Pt Macanese speaking only so supervisor estimator and drafter services were used. Pt reports 4 days [...] little bit low. Pt afebrile. Consulted with [facility] Dr. Rodriguez who advised blood drawn BMP and IV fluids. IV placed and BMP drawn and uploaded to [facility] jen. Dr. Rodriguez ordered 500 cc of normal saline in addition to 1 gram of IV magnesium, both given on scene. Reviewed red flags for ED and PT education provided. ................... ................... ................... ................... ................... ................... ................... ........ Disposition: Fulfilled Katelyn Rodriguez MD [address] [facility],[address], [place], [address], [employer] 12/14/2023 15:10:31 06/06/2024 text/html HPI: Call returned to Hayley Wang to triage below. Reports having asthma sx x 4 days. Pt having cough, fever and wheezing. Pt having to use inhaler Q4H. Pt also endorses ST. Pt had negative home kit for COVID-19 yesterday. Pt having chest tightness with cough. Pt advised of disposition, agrees to [facility] for eval as unable to come into walk in center. Confirmed demographics and allergies. ................... ................... ................... ................... ................... ................... ................... ........ CRC Nurse Triage Notes (Nayely Arango - RN): Chief Complaints: Asthma, Cough PMH: COPD/Asthma, Hypertension, Hypothyroidism, Asthma, Diabetes Mellitus Type 2, Coronary Artery Disease Comments: HPI reviewed Retread Supervisor Organization Information for [employer] Legal Name: [employer] Address: [address] [place], [place] [address], [place] [address], Sld Inclusion Teacher: Mj Krause MD CLIA No.: [id number] Retread Supervisor POC Test Results from [employer] - ALS Rapid COVID antigen (11:12:56) COVID: - Rapid [...] ................... ................... ................... ................... ................... ................... ........ Retread Supervisor Note From [employer]: [facility] makes pt contact a 73 yo FF CC of cough/cold like [facility] obtains vital signs, [facility] uses supervisor estimator and drafter services due to language barrier. PT explains she has been sick for 9 days including a fever, cough, congestion, productive phlegm consisting of dark green, pt has a hx of asthma, pt has a metal plate in chest from a resuscitation 4 months ago. PT is complaining of chest pain from the cough and not being able to sleep. [facility] tests for flu and covid, negative, tests for strep negative. PT has no allergies, a medication list is provided to [facility] contacts [facility], [facility] requests an istat which is obtained via butterfly in the left AC and bandaged appropriately, and uploaded. [facility] advises pt has bronchitis. [facility] orders 500mg of azithromycin, 40mg of prednisone, 40meq of potassium which is given po. [facility] also orders a nebulized albuterol treatment, PT reports minor relief from albuterol although pts lungs on reassessment are free of any wheezes. PT is also prescribed antibiotics which she is instructed to began taking tomorrow. [facility] explains red flags such as severe chest pain, severe sob, uncontrolled fever she should call us back or go to the hospital. [facility] also explains pt should stay hydrated and use the prescribed cough syrup to try and loosen up the pehlgm and also reduce her coughing. PT understands. [facility] clears ................... ................... ................... ................... ................... ................... ................... ........ [facility] Consulted: Leilani Pendleton ................... ................... ................... ................... ................... ................... ................... ........ Disposition: Fulfilled Leilani Pendleton MD [address] [facility], [place], [address], [place] [employer] 06/06/2024 22:30:16 OBGyn Episode No OBEpisode recorded.
--- OUTSIDE RECORDS SUMMARY | 2024-09-19 15:51 | XMS_ITS | Encounter Summary ---
Author Organization [employer] Address [address] [facility] [address] [place] [address] Care Team Providers Care Acetylene Cylinder Packing Mixer Name Role Phone Mary Rod MD Primary Care Provide r Encounter Details Date Type Department Care Team (Late st Contact Info) Description 03/24/2023 Abstract [facility] MEDICINE [address] [place] [address] Tonia Cardoza Social History Tobacco Use Types [...] documented as of this encounter Care Teams Acetylene Cylinder Packing Mixer Relationship Specialty Start Date End Date Mary Rod MD [address] [place] [address] PCP - General Family Medicine 02/07/22 documented as of this encounter
--- OUTSIDE RECORDS SUMMARY | 2024-09-19 15:51 | XMS_ITS | Encounter Summary ---
Author Organization [employer] Address [address] [facility] [address] [place] [address] Care Team Providers Care Jewelry Bench Worker Name Role Phone Mary Rod MD Primary Care Provide r Encounter Details Date Type Department Care Team ([facility] st Contact Info) Description 03/25/2023 Orders Only [facility] MEDICINE [address] [place] [address] ProviderLinsey MD Social History Tobacco Use Types [...] documented as of this encounter Care Teams Jewelry Bench Worker Relationship Specialty Start Date End Date Mary Rod MD [address] [place] [address] PCP - General Family Medicine 02/07/22 documented as of this encounter
--- OUTSIDE RECORDS SUMMARY | 2024-09-19 15:52 | XMS_ITS | Clinical Summary ---
Author Organization [facility] Address [address] [address] Care Team Providers Care Admissions Clerk Name Role Phone Natalee Rooney MD Primary Care Provider [phone] Allergies Active Allergy Reactions Criticality Noted Date [...] Only [facility] [address] [place], [place] [address] Rober Acharya [...] Visit [facility] [address] [place] [address] Rober Acharya MD [address] [facility] [address] [place] [address] Health Maintenance Due Date Last Done Comments Breast Cancer Screening 1950 Colorectal Cancer Screening: Annual FOBT 11/14/2000 Colorectal Cancer Screening: Colonoscopy 11/14/2000 Colorectal Cancer Screening: Sigmoidoscopy 11/14/2000 Diabetes: Ophthalmology Exam 07/16/2020 Diabetes: Pedal Pulse Checked 07/16/2020 Diabetes: Sensory Foot Exam 07/16/2020 Diabetes: Visual Foot Exam 07/16/2020 Diabetes: Hemoglobin A1C 04/08/2024 01/07/2024 Influenza Vaccine (Season Ended) 2025 03/10/2022, 03/19/2021, 03/04/2021, Additional history exists Pneumococcal Vaccine: 65+ Years Completed 04/23/2021, 04/26/2017, 04/05/2012, Additional history exists Hepatitis B Vaccine Aged Out No longe r eligible based on patient's age to complete this topic Insurance [facility] MCR ([id number]) [facility] MCR ([id number]) Care Teams Admissions Clerk Relationship Specialty Start Date End Date Natalee Rooney MD PCP - General Family Medicine 02/05/21
--- OUTSIDE RECORDS SUMMARY | 2024-09-19 15:52 | XMS_ITS | Encounter Summary ---
Author Organization [employer] Address [address] [facility] [address] [place] [address] Care Team Providers Care Evaporative Cooler Installer Name Role Phone Mary Rod MD Primary Care Provide r Reason for Visit * Reason Comments Med Refill Encounter Details Date Type Department Care Team (Late st Contact Info) Description 04/13/2023 Refill [facility] MEDICINE [address] [place] [address] Yara Tompkins MD [address] [place] [address] Social History Tobacco Use Types Packs/Day Years [...] to treatment regimen General No Giovany Lin, JaredD documented as of this encounter Visit Diagnoses Not on filedocumented in this encounter Additional Health Concerns Assessment Noted Time PHQ-9 Depression Total Score: 0 10/29/19 23 9:50 AM EDT documented as of this encounter Care Teams Evaporative Cooler Installer Relationship Specialty Start Date End Date Mary Rod MD [address] [place] [id number] PCP - General Family Medicine 02/07/22 documented as of this encounter
== END 2024-09-19 13:23 | disposition home or self-care (01) ==
LOC: HO.LNP 13:22
PROVIDERS: Visit Provider Internal Medicine
DX: R10.13 Epigastric pain (principal)
CPT/HCPCS: 87338

== ENCOUNTER 2024-09-29 08:12 | Outpatient (AMB) | payer OTHER, SELFPAY ==
--- OUTSIDE RECORDS SUMMARY | 2024-09-29 08:26 | XMS_ITS | Data Portability ---
Author Organization [employer] [employer] [facility] [employer] Address [address] [place] [address] Care Team Providers Care Inside Sales Recruiter Name Role Phone HIM [facility] OTHER [facility] Referring Provider Assessment Encounter Date Assessment [...] Assessment and Plan as documented by the Pediatric Psychologist. We discussed the diagnostic uncertainty of home [...] )to call 911- verbalized understanding of instruction [email or web address] Not available 06/06/2024 22:29:59 Plan of Treatment Reminders Order Date Submit Date Provider Last Modified By Organization Details Last Modified Time Details Appointments None recorded. Lab rapid flu (A+B) 2023 024 [email or web address] Main - [facility], [address] [place] [address], [id number] 4 12:27:12 rapid SARS CoV 2 Ag, QL IA, respiratory specimen 2023 024 [email or web address] 0 Main - [facility], [address] [place] [address], [id number] 4 12:27:12 rapid strep group A, throat 2023 024 [email or web address] 0 Main - [facility], [address] [place] [address], [id number] 4 12:27:12 BMP, serum or plasma 2023 024 [email or web address] 0 Main - [facility], [address] [place] [address], [id number] 4 12:27:12 Referral None recorded. Procedures None recorded. Surgeries None recorded. Imaging None recorded. Medication Orders albuterol sulfate 2.5 mg/3 mL (0.083 %) solution for nebulizatio n 2023 [email or web address] Not available 12:27:12 azithromyci n 250 mg tablet 2023 [email or web address] 0 Not available 12:27:12 azithromyci n 250 mg tablet 2023 [facility], [address] [place] [address], [id number], 10:06:34 potassium chloride ER 20 mEq tablet,exte nded release 2023 [email or web address] 0 Not available 4 12:27:12 prednisone 20 mg tablet 2023 [email or web address] 0 Not available 4 12:27:12 prednisone 20 mg tablet 2023 [facility], [address] [place] [address], [id number], 4 10:06:35 Mucinex DM 30 mg-600 mg tablet,exte nded release 12 hr 2023 [facility], [address] [place] [address], [id number], 5 11:34:59 Patient TargetsNo targets recorded. Patient InstructionsNo instructions recorded. Reason for Referral None Reported. Results Created Date Observation Date Name Description Value Unit Range Abnormal Flag Note LastModifiedBy Organization Detail LastModifiedTime 06/06/20 24 06/06/2024 rapid strep group A, throa t Strep negati ve Not Available Main - [facility] ed [address] [place] [address], [id number] 06/06/2024 11:26:51 06/06/20 24 06/06/2024 rapid SARS CoV 2 Ag, QL IA, respi rator y speci men rapid SARS CoV 2 Ag, QL IA, respiratory specimen negati ve Not Available Main - [facility] ed [address] [place] [address], [id number] 06/06/2024 11:26:50 06/06/20 24 06/06/2024 rapid flu (A+B) Flu negati ve Not Available Main - [facility] ed [address] [place] [address], [id number] 06/06/2024 11:26:49 Result Notes None recorded. Medical [...] Address Organization Details Last Updated DateTime 4 17379.0 4 g 16 /min 98 [degF] 152.4 [...] Updated DateTime 06/06/2024 152.4 cm Suzy Caldera [address] [place] [address],[address], [place], [phone], [facility] [employer] 06/06/2024 12:10:31 Social History None recorded. Functional Status None recorded. Mental Status None recorded. Family History Nothing Reported. Medical History No medical history recorded. Gynecological HistoryNo gynecological history recorded. Obstetrics History GPAL:G 0 P 0 0 0 0 Past Encounters Encounter ID Performer Location Encounter Start Date Encounter Closed Date Diagnosis/Indication Diagnosis SNOMED-CT Code Diagnosis ICD10 Code Diagnosis Note [id number] Katelyn Rodriguez MD [facility] [address] [place] [id number] 12/14/2023 11:35:06 12/14/2023 18:48:14 Headache 62397777 R51.9 [id number] Leilani Pendleton MD [facility] [address] [place] [phone] 06/06/2024 11:21:26 06/06/2024 23:50:20 Upper respiratory infection 02577568 J06.9 w/ exacerbati on of asthma- improved after neb lungs cta but increased cough Will cover with azithromyc in and steroids/v ia Panamanian language line interprete r made patient aware [...] Vivar Member ID Guarantor Name 12/14/2023 1 [facility] - DOS ON OR AFTER 2022 - DUAL ELIGIBLE - [employer] OPTIONS AND ONE CARE (MEDICARE REPLACEMENT/ADV ANTAGE - HMO) Hayley Shannon [id number] Hayleyanthony Shannon 06/06/2024 1 [facility] - DOS ON OR AFTER 2022 - DUAL ELIGIBLE - [employer] OPTIONS AND ONE CARE (MEDICARE REPLACEMENT/ADV ANTAGE - HMO) Hayleyanthony Shannon [id number] [facility] Marian Shannon Notes Date Note Type Note [...] injury. [facility]. Confirmed allergies and that no pets in home. Reviewed home care advise, ER precautions and reasons to call back. ................... ................... ................... ................... ................... ................... ................... ........ CRC Nurse Triage Notes (Rachael Lo): Comments: HPI reviewed. No further information needed to process visit. Pediatric Psychologist POC Test Results from Gerardo Lazar - ALS iSTAT Chem8+ (13:24:48) Na: 142 mEq/L K: 5.0 mEq/L Cl: 110 mEq/L iCa: 1.21 mmol/L TCO2: 22 mmol/L Glu: 86 mg/dL BUN: 11 mg/dL Crea: 0.9 mg/dL Hct: 39 % Hb: 13.3 g/dL A ................... ................... ................... ................... ................... ................... ................... ........ Pediatric Psychologist Note From Gerardo Lazar: Smart[employer] visit for female patient. Pt presents conscious and alert. Pt Panamanian speaking only so qi specialist services were used. Pt reports 4 [...] little bit low. Pt afebrile. Consulted with [facility] Dr. Rodriguez who advised blood drawn BMP and IV fluids. IV placed and BMP drawn and uploaded to [employer] jen. Dr. Rodriguez ordered 500 cc of normal saline in addition to 1 gram of IV magnesium, both given on scene. Reviewed red flags for ED and PT education provided. ................... ................... ................... ................... ................... ................... ................... ........ Disposition: Fulfilled Katelyn Rodriguez MD [address] [facility],[address], [place], [address], [employer] 12/14/2023 15:10:31 06/06/2024 text/html HPI: Call returned [...] 2, Coronary Artery Disease Comments: HPI reviewed Pediatric Psychologist Organization Information for [facility] [employer] Legal Name: [facility].? Address: [address] [place], [place] [address], [place] [address], Travel Assistant: Mj Krause MD CLIA No.: [id number] Pediatric Psychologist POC Test Results from [facility] - [...] ................... ................... ................... ................... ................... ................... ........ Pediatric Psychologist Note From [facility]: [facility] makes pt contact a 73 yo FF CC of cough/cold like [facility] obtains vital signs, [facility] uses qi specialist services due to language barrier. PT explains she has been sick for 9 days including a fever, cough, congestion, productive phlegm consisting of dark green, pt has a hx of asthma, pt has a metal plate in chest from a resuscitation 4 months ago. PT is complaining of chest pain from the cough and not being able to sleep. [facility] tests for flu and covid, negative, tests for strep negative. PT has no allergies, a medication list is provided to [facility] contacts [facility], [facility] requests an istat which is obtained via butterfly in the left AC and bandaged appropriately, and uploaded. [facility] advises pt has bronchitis. [facility] orders 500mg of azithromycin, 40mg of prednisone, 40meq of potassium which is given po. [facility] also orders a nebulized albuterol treatment, PT reports minor relief from albuterol although pts lungs on reassessment are free of any wheezes. PT is also prescribed antibiotics which she is instructed to began taking tomorrow. [facility] explains red flags such as severe chest pain, severe sob, uncontrolled fever she should call us back or go to the hospital. [facility] also explains pt should stay hydrated and use the prescribed cough syrup to try and loosen up the pehlgm and also reduce her coughing. PT understands. [facility] clears ................... ................... ................... ................... ................... ................... ................... ........ [facility] Consulted: Leilani Pendleton ................... ................... ................... ................... ................... ................... ................... ........ Disposition: Fulfilled Leilani Pendleton MD [address] [facility],[address], [place], [address], [place] [employer] 06/06/2024 22:30:16 OBGyn Episode No OBEpisode recorded.
--- OUTSIDE RECORDS SUMMARY | 2024-09-29 08:26 | XMS_ITS | Clinical Summary ---
Author Organization [facility] Facility Address [address] [address] Care Team Providers Care Cloth Shrinking Machine Operator Helper Name Role Phone Natalee Rooney MD Primary Care Provider [phone] Allergies Active Allergy Reactions Criticality Noted Date [...] Only [facility] [address] [place], [place] [address] Rober Acharya MD Stage 3a chronic kidney disease (HCC); Renal disorder due to type 2 diabetes mellitus <Diabetic nephropathy> (HCC) from Last 3 Months Immunizations Immunization Administration Dates Next Due H1N1 Inj 05/14/2016 [...] Visit [facility] [address] [place] [address] Rober Acharya MD [address] [facility] [address] [place] [address] Health Maintenance Due Date Last [...] 03/19/2021, 03/04/2021, Additional history exists Pneumococcal Vaccine: 50+ Years Completed 04/23/2021, 04/26/2017, 04/05/2012, Additional history exists Pneumococcal Vaccine: Peds (0 to 5 Years) and At-Risk Patients (6 to 49 Years) Discontinued 04/23/2021, 04/26/2017, 04/05/2012, Additional history exists Hepatitis B Vaccine Aged Out No longe r eligible based on patient's age to complete this topic Insurance [facility] ([id number]) [facility] ([id number]) [place]EE[place]UMAS [phone] Care Teams Cloth Shrinking Machine Operator Helper Relationship Specialty Start Date End Date Natalee Rooney MD PCP - General Family Medicine 02/05/21
[2024-09-29 08:54] VITALS: BP 105/61; PULSE 65; BMI 26.3
--- NOTE | 2024-09-29 08:54 | A.OFFVIS_ITS ---
Vital Signs 3 09/29/24 08:54 Height 5 ft Weight 134 lb 14.766 oz BMI 26.3 BP 105/61 Blood Pressure Location Rt brachial Position Sitting Pulse 65 Intake Visit Reasons: Follow up 6 months Intake Note: Hayley presents to in office follow up of abdominal pain. CC: Patient c/o epigastric pain and feeling that food gets stuck in her throat. She states she is not eating much and c/o constipation, and nausea. Shank Inspector Required: Yes Shank Inspector Language: Turkish Accompanied by: Self / Same As Patient Allergies No Known Allergies [No Known Allergies*] Allergy (Verified 09/29/24 09:05) HPI HPI Follow up 6 months: Details: Assessment & Plan (1) GERD (gastroesophageal reflux disease): Code(s): K21.9 - Gastro-esophageal reflux disease without esophagitis Category: Medical (2) Chronic idiopathic constipation: Code(s): K59.04 - Chronic idiopathic constipation Category: Medical (3) Diabetes: Code(s): E11.9 - Type 2 diabetes mellitus without complications Category: Medical (4) Non-ST elevated myocardial infarction (non-STEMI): Code(s): I21.4 - Non-ST elevation (NSTEMI) myocardial infarction Category: Medical Plan BAHAMIAN #Natalee and Marta LIve She continues on her pantoprazole bid, simethicone, LInzess, lactulose and bisacodyl. She also takes reglan qidachs. 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 She continues to work with ortho about this, she had an injection that did not help. She asks me if we can change her Trulicity to Mounjaro because I keep gaining weight. I advise her that this needs to be addressed by her PCP who manages her diabetes. This is Mayr Rivera. She is c/o easy bruising, but she is on brillenta and asa for cardiac prophylaxis which can cause this but it is more annoying than harmful. She has a cardiac stent. She was educated that this medication is necessary but will cause easy bruising that is more of an annoyance that it is harmful to her. She felt reassured by this Education. She confirms that she is satisfied with her current GI regimen and has no complaints as far as that goes. I will relay her concerns to her primary care provider/diabetes management provider. Return office visit in 6 months. Medications: New nsbfci-fhubnvvo-woghsss 24,000-76,000 -120,000 unit (Creon) 24,000 caps PO BID 120 caps 6RF Refilled linaclotide (Linzess) 290 mcg PO QAM 30 caps 6RF K59.04 - Chronic idiopathic constipation famotidine 20 mg PO DAILY 30 tabs 6RF K28.9 - Gastrojejunal ulcer, unspecified as acute or chronic, without hemorrhage or perforation metoclopramide HCl 10 mg PO QID 120 tabs 6RF K31.84 - Gastroparesis pantoprazole 40 mg PO BID 60 tabs 6RF K21.9 - Gastro-esophageal reflux disease without esophagitis, K28.9 - Gastrojejunal ulcer, unspecified as acute or chronic, without hemorrhage or perforation simethicone (Gas Relief (simethicone)) 180 mg PO QID 120 caps 2RF TODAY'S VISIT BAHAMIAN #Rachel Roberts She says she is having burning in her stomach and nausea. She tells me she is hardly eating. With further conversation she is also not moving her bowels but she says she had a very bad fall in April and fractured her left arm falling on outstretched arm. This was followed by a cast and then emergency surgery. Since then she has had unrelenting pain in the left hand and weakness that causes her not to be able to close into a fist or hold anything. She is dropping objects quite a lot. She describes the pain as a stabbing pain in the hand feels like ?it wants to explode outside of itself. ? Strangely the pain seems to have some referred aspects into the ulnar aspect of her arm even though it was a distal radial fracture. She also has distal palmar pain. It is 8/10 at all times. She says that the pain is making her not sleep and causing a lot of her anxiety and lack of appetite. She is on top tramadol for the pain which is not helping nor do any of the kylr-qdq-wbaeiwyp. I think she has got a multifactorial problem here affecting her GI stability. I verify that she is taking all of her medications including metoclopramide as directed. I think we need to address her pain and since opiates are not a good option (although oxycodone work well for her) I think I am going to try adding something for neuropathic pain and sleep. We will give her imipramine 10 mg at night titrate to affect her side effect. I will keep in mind that tramadol does have some anticholinergic and neuropathic crossover so will have to watch carefully if there is any interactions or it makes her sleepy. In the meantime I advised her to take 3 bisacodyl at night and continue with her Linzess in the morning to see if moving her bowels helps with her stomach issues. Despite the burning I am reluctant to give her sucralfate because of the constipation. She continues on pantoprazole bid, simethicone, LInzess, lactulose and bisacodyl. She also takes reglan qidachs. ROV 2 weeks to eval imipramine. ? EMG if not improving to see if ulnar entrapment. PENDING SALE TO [facility] Medical History Left hip pain Sacroiliac joint pain Elevated liver enzymes Right knee pain Left lumbar radiculitis Lumbago with sciatica Sepsis Right anterior knee pain Nausea and vomiting Candidiasis of mouth and esophagus Dysuria Medication monitoring encounter Abnormal findings on diagnostic imaging of musculoskeletal system Myocardial infarction Asthma ANGIE (obstructive sleep apnea) Diabetes Esophageal dysmotilities Esophageal candidiasis Pneumonia Cystitis Recurrent UTI (urinary tract infection) Vitamin D deficiency Hypothyroidism Osteoporosis B12 deficiency Iron deficiency anemia IBS (irritable bowel syndrome) Surgical History H/O heart surgery Hx of gastric bypass History of esophagogastroduodenoscopy (EGD) Hx of colonoscopy History of arthroscopy of left shoulder Family History Father No problems noted. Mother Stomach cancer Diabetes mellitus CVD (cardiovascular disease) Heart attack Arthritis of knee Sister COVID-19 Paternal Aunt Cancer Maternal Aunt Cancer Paternal Uncle Cancer Social History Household Members: Spouse Housing: House Are you a primary assistant child care teacher to a significant other at home: No Do you presently have visiting nurse or other home services: No (unable to determine) Alcohol intake: never Comment: macrina Patient Tobacco Use Status: Never used Tobacco Use of substances other than those prescribed or required for medical reasons: No Have you been hit, kicked, punched, or otherwise hurt by someone within the past year? If so, by whom?: No Do you feel safe in your current relationship?: Yes Do you have thoughts of harming others: None Do you have a plan to hurt others: No Plan Do you have the means to hurt others: No Recently lost weight without trying: Yes How much weight loss: Unsure Eating poorly because of decreased appetite: Yes Nutrition screen score: 5 Patient : No service: No Current occupational status: disabled Review of Systems Const Denies fatigue, Denies fever(s), Denies night sweats, Reports poor appetite and Reports weight loss ENT Reports Normal hearing present, Denies dental pain, Denies dysphagia, Denies hearing loss, Denies mouth pain, Denies odynophagia, Denies throat swelling, Denies tongue swelling and Reports other (Dentition adequate) Card Reports no additional complaints Resp Reports no additional complaints GI Details: Reports abdominal pain, Denies melena, Reports bloating, Denies hematochezia, Reports constipation, Denies GI cramping, Denies dysphagia, Denies excessive flatus, Denies early satiety, Reports heartburn, Denies diarrhea, Denies nausea, Denies odynophagia, Denies vomiting and Denies hematemesis Musc Reports back pain and Reports radiating pain into limb Skin/Breast Denies pruritus, Denies lesions, Denies rash and Denies jaundice Neuro Reports Normal hearing present, Denies Abnormal speech present, Reports focal weakness and Reports paresthesias Endo Denies fatigue Aller/Immun Denies throat swelling and Denies tongue swelling Physical Exam Vital Signs: Last Vital Signs Pulse 65 09/29/24 08:54 BP 105/61 09/29/24 08:54 BMI result Body Mass Index 26.3 Const General: cooperative, no acute distress, well developed and well groomed Nutritional Appearance: average body habitus and well nourished Orientation/consciousness: oriented to person, oriented to place and oriented to time Limitations: language barrier and other limitations (Left hand generalized weakness) HEENT Head: Yes normocephalic and Yes atraumatic Eyes General: appearance normal, both eyes and all related structures Pupils: Equal, round and reactive pupils present Neck Neck: Yes normal visual inspection and Yes no lymphadenopathy Thyroid: Thyroid normal Resp Effort & Inspection: normal respiratory effort and able to speak in complete sentences Auscultation: clear to auscultation bilaterally Cardio Rate: regular rate Rhythm: regular rhythm Heart sounds: Normal, physiologic split S2 sound present Peripheral pulses: radial pulses present and posterior tibial pulses present GI Inspection: No distended, No Abdominal panniculus present and Yes obesity Palpation (GI): Soft to palpation, nontender, no guarding, not rigid and No hepatosplenomegaly present Percussion: Yes normal to percussion Auscultation: normal bowel sounds Rectal Exam - Female: deferred Skin General skin exam: no rashes or lesions noted, turgor normal, skin not dry, no jaundice, No spider nevi and no striae Rashes: no rashes Nails: normal Neuro General: oriented to person, oriented to place and oriented to time Cranial nerves: Yes Equal, round and reactive pupils present and Yes Normal hearing present Speech: No Abnormal speech present Extrem General: No full ROM, No clubbing, No cyanosis and No edema Right upper extremity: normal to inspection Left upper extremity: hand Details: neuromotor exam abnormal Details: wrist extension abnormal Details: weak and limited by pain and fingers 2-5 ABduction abnormal Details: weak, tenderness Location: of the palm Location: at the thenar eminence and centrally and abnormal ROM of finger Details: unable to flex Location: of all digits Elbow/forearm/wrist images: 2 1. surgical scar 2. Psych Appearance: grossly normal and well kempt Mental Status: mental status grossly normal Speech and movement: Normal speech and movement present Affect: Anxious affect present Attitude: cooperative Thought process: Circumstantial thought process present and not confabulating Thought content: Normal thought content present Insight: Limited insight present (Psych) Judgement: Limited judgement present (Psych) Assessment & Plan Assessment & Plan (1) Numbness and tingling in left hand: Code(s): R20.0 - Anesthesia of skin; R20.2 - Paresthesia of skin Category: Medical (2) GERD (gastroesophageal reflux disease): Code(s): K21.9 - Gastro-esophageal reflux disease without esophagitis Category: Medical (3) Chronic idiopathic constipation: Code(s): K59.04 - Chronic idiopathic constipation Category: Medical (4) Dysphagia: Comment: . HE EGD 09/2019 Esophagus: Tortuous esophagus with increased tertiary contractions without stricture or ring. GE junction at 34 cms. No esophagitis or Carrasquillo s. Stomach: Maurice en Y gastric bypass status. Gastric remnant from 34 to 36 cms. Normal anastomosis without ulcers. Mild gastric erythema. Biopsies were obtained. BARIUM SWALLOW 09/2020 IMPRESSION: 1. No aspiration or laryngeal penetration. 2. See speech pathologist report for further assessment and recommendation. Code(s): R13.10 - Dysphagia, unspecified Category: Medical Plan BAHAMIAN #Rachel Roberts She says she is having burning in her stomach and nausea. She tells me she is hardly eating. With further conversation she is also not moving her bowels but she says she had a very bad fall in April and fractured her left arm falling on outstretched arm. This was followed by a cast and then emergency surgery. Since then she has had unrelenting pain in the left hand and weakness that causes her not to be able to close into a fist or hold anything. She is dropping objects quite a lot. She describes the pain as a stabbing pain in the hand feels like ?it wants to explode outside of itself. ? Strangely the pain seems to have some referred aspects into the ulnar aspect of her arm even though it was a distal radial fracture. She also has distal palmar pain. It is 8/10 at all times. She says that the pain is making her not sleep and causing a lot of her anxiety and lack of appetite. She is on top tramadol for the pain which is not helping nor do any of the hxka-cyz-fcnldabn. I think she has got a multifactorial problem here affecting her GI stability. I verify that she is taking all of her medications including metoclopramide as directed. I think we need to address her pain and since opiates are not a good option (although oxycodone work well for her) I think I am going to try adding something for neuropathic pain and sleep. We will give her imipramine 10 mg at night titrate to affect her side effect. I will keep in mind that tramadol does have some anticholinergic and neuropathic crossover so will have to watch carefully if there is any interactions or it makes her sleepy. In the meantime I advised her to take 3 bisacodyl at night and continue with her Linzess in the morning to see if moving her bowels helps with her stomach issues. Despite the burning I am reluctant to give her sucralfate because of the constipation. She continues on pantoprazole bid, simethicone, LInzess, lactulose and bisacodyl. She also takes reglan qidachs. ROV 2 weeks to eval imipramine. ? EMG if not improving to see if ulnar entrapment. Medications: New 2 imipramine HCl 10 mg PO BEDTIME 30 tabs 3RF 30 days R20.0 - Anesthesia of skin, R20.2 - Paresthesia of skin Refilled 2 bisacodyl (Dulcolax (bisacodyl)) 15 mg (3 x 5 mg) PO BEDTIME 90 tabs 6RF 30 days K59.04 - Chronic idiopathic constipation imvayy-qxjwixmw-dlnzyoc 24,000-76,000 -120,000 unit (Creon) 24,000 caps PO BID 120 caps 6RF pantoprazole 40 mg PO BID 60 tabs 6RF K21.9 - Gastro-esophageal reflux disease without esophagitis, K28.9 - Gastrojejunal ulcer, unspecified as acute or chronic, without hemorrhage or perforation linaclotide (Linzess) 290 mcg PO QAM 30 caps 6RF K59.04 - Chronic idiopathic constipation lactulose 20 grams (30 mL) PO TID 3,000 mL 6RF K59.04 - Chronic idiopathic constipation metoclopramide HCl 10 mg PO QID 120 tabs 6RF K31.84 - Gastroparesis simethicone (Gas Relief (simethicone)) 180 mg PO QID 120 ea 2RF Coding Level of Care Code Est Pt Level 4 (19689) Diagnoses Numbness and tingling in left hand R20.0; R20.2 GERD (gastroesophageal reflux disease) K21.9 Chronic idiopathic constipation K59.04 Dysphagia R13.10
== END 2024-09-29 09:50 | disposition home or self-care (01) ==
LOC: HO.HGI 08:13
PROVIDERS: PCP Internal Medicine; Visit Provider Nurse Practitioner
DX: R20.0 Anesthesia of skin (principal); R20.2 Paresthesia of skin; K21.9 Gastro-esophageal reflux disease without esophagitis; K59.04 Chronic idiopathic constipation; R13.10 Dysphagia, unspecified
CPT/HCPCS: 99214

== ENCOUNTER → 2024-09-29 08:12 | Outpatient (BNVA) | payer OTHER, SELFPAY | PROVIDERS: PCP Internal Medicine; Visit Provider Nurse Practitioner | DX: K31.84 Gastroparesis (principal); K59.04 Chronic idiopathic constipation; K21.9 Gastro-esophageal reflux disease without esophagitis; R10.9 Unspecified abdominal pain; E11.9 Type 2 diabetes mellitus without complications; I21.4 Non-ST elevation (NSTEMI) myocardial infarction; R20.0 Anesthesia of skin; R20.2 Paresthesia of skin; R13.10 Dysphagia, unspecified | CPT/HCPCS: 99212 ==

== ENCOUNTER 2024-09-30 08:13 | Outpatient (REF) | payer OTHER, SELFPAY ==
--- OUTSIDE RECORDS SUMMARY | 2024-09-30 08:33 | XMS_ITS | Encounter Summary ---
Author Organization [employer] Address [address] [place] [address] Care Team Providers Care Metal Cut Off Saw Tender Name Role Phone Mary Rod MD Primary Care Provide r Reason for Visit * Reason Comments Med Refill Encounter Details Date Type Department Care Team (Late st Contact Info) Description 04/13/2023 Refill [facility] [address] [place] [address] Yara Tompkins MD [address] [place] [address] Social History Tobacco Use Types Packs/Day Years [...] Care Team (Late st Contact Info) Description 11/10/2024 10:30 AM EDT Office Visit [facility] [address] [place] [address] TarkaTonya, OD [address] [place] [address] documented as of this encounter Goals Goal [...] documented as of this encounter Care Teams Metal Cut Off Saw Tender Relationship Specialty Start Date End Date Mary Rod MD [address] [place] [address] PCP - General Family Medicine 02/07/22 documented as of this encounter
--- OUTSIDE RECORDS SUMMARY | 2024-09-30 08:33 | XMS_ITS | Encounter Summary ---
Author Organization [employer] Address [address] [place] [address] Care Team Providers Care Director Of Market Analysis Name Role Phone Mary Rod MD Primary Care Provide r Encounter Details Date Type Department Care Team (Late Contact Info) Description 11/12/2022 [facility] [address] [place] [address] Mary Rod MD [address] [place] [address] Social History Tobacco Use Types Packs/Day Years [...] Description 11/10/2024 10:30 AM EDT Office Visit [facility] [address] [place] [address] Tonya Brennan, OD [address] [place] [address] documented as of this encounter Goals Goal Patient Goal Type Associated Problems Recent Progress Patient-Stated? Author Record your blood pressure once per day Blood Pressure No Giovany Lin, Sindi Note: When you receive your new BP monitor Short-term: Promote adherence to treatment regimen General No Giovany Lin, Sindi documented as of this encounter Visit Diagnoses Not on filedocumented in this encounter Additional Health Concerns Assessment Noted Time PHQ-9 Depression Total Score: 0 10/29/19 23 9:50 AM EDT documented as of this encounter Care Teams Director Of Market Analysis Relationship Specialty Start Date End Date Mary Rod MD [address] [place] [id number] PCP - General Family Medicine 02/07/22 documented as of this encounter
--- OUTSIDE RECORDS SUMMARY | 2024-09-30 08:33 | XMS_ITS | Data Portability ---
Author Organization [employer], [email or web address] Address [address] [place] [address] Care Team Providers Care Inspector Packer [employer] Name Role Phone HIM [facility] OTHER [facility] Referring Provider Assessment Encounter Date Assessment Date [...] Assessment and Plan as documented by the Autocad Electrical Designer. We discussed the diagnostic uncertainty of home [...] )to call 911- verbalized understanding of instruction [email or web address] Not available 06/06/2024 22:29:59 Plan of Treatment Reminders Order Date Submit Date Provider Last Modified By Organization Details Last Modified Time Details Appointments None recorded. Lab rapid flu (A+B) 2023 024 [email or web address] Main - [facility], [address] [place] [address], [id number] 4 12:27:12 rapid SARS CoV 2 Ag, QL IA, respiratory specimen 2023 024 [email or web address] Main - [facility], [address] [place] [address], [id number] 4 12:27:12 rapid strep group A, throat 2023 024 [email or web address] 0 Main - [facility], [address] [place] [address], [id number] 4 12:27:12 BMP, serum or plasma 2023 024 [email or web address] 0 Main - [facility], [address] [place] [address], [id number] 4 12:27:12 Referral None recorded. Procedures None recorded. Surgeries None recorded. Imaging None recorded. Medication Orders albuterol sulfate 2.5 mg/3 mL (0.083 %) solution for nebulizatio n 2023 [email or web address] Not available 12:27:12 azithromyci n 250 mg tablet 2023 [email or web address] 0 Not available 12:27:12 azithromyci n 250 mg tablet 2023 [facility], [address] [place] [address], [id number], 10:06:34 potassium chloride ER 20 mEq tablet,exte nded release 2023 [email or web address] 0 Not available 4 12:27:12 prednisone 20 mg tablet 2023 [email or web address] Not available 4 12:27:12 prednisone 20 mg tablet 2023 [facility], [address] [place] [address], [id number], 4 10:06:35 Mucinex DM 30 mg-600 mg tablet,exte nded release 12 hr 2023 [facility], [address] [place] [address], [id number], 5 11:34:59 Patient TargetsNo targets recorded. Patient InstructionsNo instructions recorded. Reason for Referral None Reported. Results Created Date Observation Date Name Description Value Unit Range Abnormal Flag Note LastModifiedBy Organization Detail LastModifiedTime 06/06/20 24 06/06/2024 rapid strep group A, throa t Strep negati ve Not Available Main - [facility] ed [address] [place] [address], [id number] 06/06/2024 11:26:51 06/06/20 24 06/06/2024 rapid SARS CoV 2 Ag, QL IA, respi rator y speci men rapid SARS CoV 2 Ag, QL IA, respiratory specimen negati ve Not Available Main - [facility] ed [address] [place] [address], [id number] 06/06/2024 11:26:50 06/06/20 24 06/06/2024 rapid flu (A+B) Flu negati ve Not Available Main - [facility] ed [address] [place] [address], [id number] 06/06/2024 11:26:49 Result Notes None recorded. Medical [...] Address Organization Details Last Updated DateTime 4 93930.0 4 g 16 /min 98 [degF] 152.4 [...] Updated DateTime 06/06/2024 152.4 cm Suzy Caldera [address] [place] [address],[address], [place], [phone], [facility] [employer] 06/06/2024 12:10:31 Social History None recorded. Functional Status None recorded. Mental Status None recorded. Family History Nothing Reported. Medical History No medical history recorded. Gynecological HistoryNo gynecological history recorded. Obstetrics History GPAL:G 0 P 0 0 0 0 Past Encounters Encounter ID Performer Location Encounter Start Date Encounter Closed Date Diagnosis/Indication Diagnosis SNOMED-CT Code Diagnosis ICD10 Code Diagnosis Note [id number] Katelyn Rodriguez MD [facility] [address] [place] [phone] 12/14/2023 11:35:06 12/14/2023 18:48:14 Headache 47798204 R51.9 [id number] [email or web address] [address] [place] [phone] 06/06/2024 11:21:26 06/06/2024 23:50:20 Upper respiratory infection 49564894 J06.9 w/ exacerbati on of asthma- improved after neb lungs cta but increased cough Will cover with azithromyc in and steroids/v ia Kenyan language line interprete r made patient aware [...] Vivar Member ID Guarantor Name 12/14/[address] [facility] - DOS ON OR AFTER 2022 - DUAL ELIGIBLE - CORRECTION OPTIONS AND ONE CARE (MEDICARE REPLACEMENT/ADV ANTAGE - HMO) Hayley Shannon [id number] Hayleyanthony Shannon 06/06/[address] [facility] - DOS ON OR AFTER 2022 - DUAL ELIGIBLE - CORRECTION OPTIONS AND ONE CARE (MEDICARE REPLACEMENT/ADV ANTAGE - HMO) Hayleyanthony Shannon [id number] [facility] Marian Shannon Notes Date Note Type Note [...] injury. [facility]. [facility]. Confirmed allergies and that no pets in home. Reviewed home care advise, ER precautions and reasons to call back. ................... ................... ................... ................... ................... ................... ................... ........ [facility] Nurse Triage Notes (Rachael Lo): Comments: HPI reviewed. No further information needed to process visit. [employer]ocad Electrical Designer POC Test Results from Gerardo Lazar - ALS iSTAT Chem8+ (13:24:48) Na: 142 mEq/L K: 5.0 mEq/L Cl: 110 mEq/L iCa: 1.21 mmol/L TCO2: 22 mmol/L Glu: 86 mg/dL BUN: 11 mg/dL Crea: 0.9 mg/dL Hct: 39 % Hb: 13.3 g/dL A ................... ................... ................... ................... ................... ................... ................... ........ Autocad Electrical Designer Note From Gerardo Lazar: [facility] visit for female patient. Pt presents conscious and alert. Pt Kenyan speaking only so nail polish brush machine feeder services were used. Pt reports 4 days [...] little bit low. Pt afebrile. Consulted with [facility] Dr. Rodriguez who advised blood drawn BMP and IV fluids. IV placed and BMP drawn and uploaded to [employer] jen. Dr. Rodriguez ordered 500 cc of normal saline in addition to 1 gram of IV magnesium, both given on scene. Reviewed red flags for ED and PT education provided. ................... ................... ................... ................... ................... ................... ................... ........ Disposition: Fulfilled Katelyn Rodriguez MD [address] [facility],[address], [place], [phone], [employer] 12/14/2023 15:10:31 06/06/2024 text/html HPI: Call returned to Halyey Wang to triage below. Reports having asthma [...] 2, Coronary Artery Disease Comments: HPI reviewed [employer]ocad Electrical Designer Organization Information for [employer] Legal Name: [employer] Address: [address] [place], [place] [address], [place] [address], Order Picker: Mj Krause MD CLIA No.: [id number] [employer] Electrical Designer POC Test Results from [employer] - [...] ................... ................... ................... ................... ................... ................... ........ Autocad Electrical Designer Note From [employer]: [facility] makes pt contact a 73 yo FF CC of cough/cold like [facility] obtains vital signs, [facility] uses nail polish brush machine feeder services due to language barrier. PT explains she has been sick for 9 days including a fever, cough, congestion, productive phlegm consisting of dark green, pt has a hx of asthma, pt has a metal plate in chest from a resuscitation 4 months ago. PT is complaining of chest pain from the cough and not being able to sleep. [facility] tests for flu and covid, negative, tests for strep negative. PT has no allergies, a medication list is provided to [facility] contacts [facility], [facility] requests an istat which is obtained via butterfly in the left AC and bandaged appropriately, and uploaded. [facility] advises pt has bronchitis. [facility] orders 500mg of azithromycin, 40mg of prednisone, 40meq of potassium which is given po. [facility] also orders a nebulized albuterol treatment, PT reports minor relief from albuterol although pts lungs on reassessment are free of any wheezes. PT is also prescribed antibiotics which she is instructed to began taking tomorrow. [facility] explains red flags such as severe chest pain, severe sob, uncontrolled fever she should call us back or go to the hospital. [facility] also explains pt should stay hydrated and use the prescribed cough syrup to try and loosen up the pehlgm and also reduce her coughing. PT understands. [facility] clears ................... ................... ................... ................... ................... ................... ................... ........ [facility] Consulted: Leilani Pendleton ................... ................... ................... ................... ................... ................... ................... ........ Disposition: Fulfilled Leilani Pendleton MD [address] [facility],[address], [place], [address], [place] [facility] 06/06/2024 22:30:16 OBGyn Episode No OBEpisode recorded.
--- OUTSIDE RECORDS SUMMARY | 2024-09-30 08:33 | XMS_ITS | Encounter Summary ---
Author Organization [employer] Address [address] [facility] [address] [place] [address] Care Team Providers Care Eddy Current Inspector Name Role Phone Mary Rod MD Primary Care Provide r Encounter Details Date Type Department Care Team (Late st Contact Info) Description 03/24/2023 Abstract [facility] MED[facility] [address] [place] [address] Tonia Cardoza Social History Tobacco Use Types [...] Office Visit [facility] OPTOMETRY [address] [place], [place] [phone] Tarka, Tonya, OD [address] [place] [address] documented as of this encounter Goals Goal [...] documented as of this encounter Care Teams Eddy Current Inspector Relationship Specialty Start Date End Date Mary Rod MD [address] [place] [address] PCP - General Family Medicine 02/07/22 documented as of this encounter
--- OUTSIDE RECORDS SUMMARY | 2024-09-30 08:33 | XMS_ITS | Encounter Summary ---
Author Organization [employer] Address [address] [facility] [address] [place] [address] Care Team Providers Care Business Unit Leader Name Role Phone Mary Rod MD Primary Care Provide r Encounter Details Date Type Department Care Team ([facility] st Contact Info) Description 03/25/2023 Orders Only [facility] MEDICINE [address] [place] [address] ProviderLinsey MD Social History Tobacco Use Types [...] Description 11/10/2024 10:30 AM EDT Office Visit [facility] OPTOMETRY [address] [place], [place] [phone] Tarka, Tonya, OD [address] [place] [address] documented as of this encounter Goals Goal Patient Goal Type Associated Problems Recent Progress Patient-Stated? Author Record your blood pressure once per day Blood Pressure No Giovany Lin PharmD Note: When you receive your new BP monitor Short-term: Promote adherence to treatment regimen General No Giovany Lin, PharmD documented as of this encounter Procedures [...] documented as of this encounter Care Teams Business Unit Leader Relationship Specialty Start Date End Date Mary Rod MD [address] [place] [address] PCP - General Family Medicine 02/07/22 documented as of this encounter
--- OUTSIDE RECORDS SUMMARY | 2024-09-30 08:33 | XMS_ITS | Clinical Summary ---
Author Organization [facility] Address [address] [address] Care Team Providers Care Truck Leasing Manager Name Role Phone Natalee Rooney MD Primary Care Provider [phone] Allergies Active Allergy Reactions Criticality Noted Date [...] Only [facility] [address] [place], [place] [address] Rober Acharya [...] Visit [facility] [address] [place] [address] Rober Acharya MD [address] [facility] [address] [place] [address] Health Maintenance Due Date Last [...] patient's age to complete this topic Insurance [facility] ([id number]) [facility] ([id number]) REECE DUMAS [id number] Care Teams Truck Leasing Manager Relationship Specialty Start Date End Date Natalee Rooney MD PCP - General Family Medicine 02/05/21
--- OUTSIDE RECORDS SUMMARY | 2024-09-30 08:33 | XMS_ITS | Clinical Summary ---
Author Organization [employer] Address [address] [facility] [address] [place] [address] Care Team Providers Care Design Eng Name Role Phone Mary Rod MD Primary [...] Information Patient not taking.Reported on 10/28/2023 budesonide-formot heriberto (Symbicort) 160-4.5 MCG/ACT inhaler INHALE [...] 30 ML BY MOUTH THREE TIMES DAILY 024 Active Multiple Vitamins-Iron (Tab-A-Star/Iron/ Beta Carotene) tablet Take 1 tablet by mouth every morning with food Active cyanocobalamin (Vitamin B-12) 1000 MCG tablet Take 1,000 mcg by mouth Once per day. Active pancrelipase, Ypc-Pael-Wfyx, (Creon) 60440-75688 units capsuleIndication s:Pancreatic insufficiency TAKE 1 CAPSULE BY MOUTH FOUR TIMES DAILY WITH FOOD AND 1 CAPSULE WITH SNACKS DO NOT BREAK, CRUSH, DISSOLVE OR CHEW 120 capsule 3 024 Active Nyamyc 122734 UNIT/GM powderIndications :Intertrigo APPLY TOPICALLY TO AFFECTED AREA(S) TWICE DAILY 60 g 1 024 Active lidocaine (Xylocaine) 5 % ointmentIndicatio ns:Closed fracture of distal end of left radius, unspecified fracture morphology, initial encounter Apply topically if needed for mild pain. 50 g 1 024 2024 Active metFORMIN XR (Glucophage-XR) 500 MG 24 hr tablet TAKE 1 TABLET BY MOUTH TWICE DAILY IN THE MORNING AND IN THE EVENING WITH FOOD 180 tablet 025 Active Brilinta 90 MG tabletIndications :Essential hypertension TAKE 1 TABLET BY MOUTH TWICE DAILY IN THE MORNING AND IN THE EVENING 60 tablet 3 025 Active montelukast (Singulair) 10 MG tablet TAKE 1 TABLET BY MOUTH AT BEDTIME 30 tablet 3 025 Active Diclofenac Sodium 1 % gelIndications:Le ft hand pain Apply 1 Application topically every 12 (twelve) hours if needed (apply on affected area). 100 g 1 025 Active Trulicity 0.75 MG/0.5ML solution auto-injector INJECT ONE PEN (=0.75MG) SUBCUTANEOUSLY ONCE A WEEK DIRECTED 6 mL 3 025 Active Farxiga 10 MGIndications:Typ e 2 diabetes mellitus with chronic kidney disease, without long-term current use of insulin, unspecified CKD stage ([facility]) TAKE 1 TABLET BY MOUTH EVERY MORNING 30 tablet 2 Active gabapentin (Neurontin) 600 MG tabletIndications :Spinal stenosis of lumbar region, unspecified whether neurogenic claudication present TAKE 1 TABLET BY MOUTH THREE TIMES DAILY IN THE MORNING, AT NOON, AND AT BEDTIME 90 tablet 2 025 Active topiramate (Topamax) 25 MG tablet TAKE 1 TABLET BY MOUTH EVERY EVENING 30 tablet Active sucralfate (Carafate) 1 g tabletIndications :Epigastric pain TAKE 1 TABLET BY MOUTH FOUR TIMES DAILY BEFORE MEALS AND AT BEDTIME 120 tablet Active levothyroxine (Synthroid, Levoxyl) 125 MCG tabletIndications :Acquired hypothyroidism TAKE 1 TABLET EVERY MORNING BEFORE BREAKFAST 30 tablet Active dulaglutide (Trulicity) 0.75 MG/0.5ML solution pen-injector INJECT ONE PEN (=0.75MG) SUBCUTANEOUSLY ONCE A WEEK DIRECTED 6 mL 3 024 2024 Discontinued levothyroxine (Synthroid, Levoxyl) 125 MCG tabletIndications :Acquired hypothyroidism TAKE 1 TABLET BY MOUTH EVERY MORNING BEFORE BREAKFAST 30 tablet 024 2024 Discontinued Farxiga 10 MGIndications:Typ e 2 diabetes mellitus with chronic kidney disease, without long-term current use of insulin, unspecified CKD stage ([facility]) TAKE 1 TABLET BY MOUTH EVERY MORNING 30 tablet 2 025 2024 Discontinued gabapentin (Neurontin) 600 MG tabletIndications :Spinal stenosis of lumbar region, unspecified whether neurogenic claudication present TAKE 1 TABLET BY MOUTH THREE TIMES DAILY IN THE MORNING, AT NOON, AND AT BEDTIME 90 tablet 2 025 2024 Discontinued sucralfate (Carafate) 1 g tabletIndications :Epigastric pain Take 1 tablet (1 g) by mouth before breakfast, before lunch, before evening meal, and at bedtime. 120 tablet 025 2024 Discontinued topiramate (Topamax) 25 MG tablet TAKE 1 TABLET BY MOUTH EVERY EVENING 30 tablet 025 2024 Discontinued Active Problems Problem Noted [...] with specialist Coronary artery disease invo lving [place] coronary artery of [place] heart 05/20/2024 Ecchymoses, spontaneous 02/02/2024 Assessment & [...] Duoneb NBZ but advise to see her patient case manager if needed -has apt w [employer] developer in 12/2023 Hyperkalemia 09/30/2023 Assessment & Plan (09/30/2023 3:04 PM EDT): I will repeat BMP to monitor her K level NSTEMI (non-ST elevated myocardial infarction) 0 09/17/2023 Assessment & Plan (09/30/2023 3:02 PM EDT): Continue to follow with cardiology C/w cardiac rehab Assessment & Plan (09/17/2023 10:26 AM EDT): [facility] appoitnments with me and pharmacy will be [...] 06/12/2023 Acute kidney injury superimposed on CKD ([facility] ) 01/19/2023 Assessment & Plan (01/19/2023 [...] Encounters Date Type Department Care Team Description 09/20/2024 Refill [facility] MEDICINE [address] [place] [address] Mary Rod MD Epigastric pain; Acquired hypothyroidism 09/09/2024 Refill [facility] MEDICINE [address] [place] [address] Mary Rod MD Type 2 diabetes mellitus with chronic kidney disease, without long-term current use of insulin, unspecified CKD stage (CMS/HCC); Spinal stenosis of lumbar region, unspecified whether neurogenic claudication present 09/07/2024 Refill [facility] MEDICINE [address] [place] [address] Mary Rod MD 08/18/2024 10:50 AM EST Immunization [facility] MEDICINE [address] [place] [phone] Alexia Guthrie LPN Encounter for immunization (Primary Dx) 08/17/2024 Refill [facility] MEDICINE [address] [place] [address] Yara Tompkins MD 08/12/2024 11:15 AM EST Office Visit [facility] MEDICINE [address] [place] [phone] Mary Rod MD Epigastric pain (Primary Dx); Type 2 diabetes mellitus with chronic kidney disease, without long-term current use of insulin, unspecified CKD stage (CMS/HCC); Left hand pain 08/12/2024 Travel 08/12/2024 Refill [facility] MEDICINE [address] [place] [address] Mary Rod MD Essential hypertension 07/29/2024 Patient Outreach [facility]ICINE [address] [place] [address] Mary Rod MD Pre-visit Planning ((Unable to reach for PVP screening, LVM)) 07/13/2024 Refill [facility] MED & PEDS [address] [place] [address] Mary Rod MD 07/10/2024 Refill [facility] MEDICINE [address] [place] [address] Mary Rod MD from Last 3 Months Immunizations Name Administration [...] seasonal, injecta ble, preservative free 04/05/2012 Novel [id number] 05/14/2016 Pfizer Covid-19 Vaccine 12+ 06/18/2023 Pneumococcal [...] 08/12/2024 10:44 AM EST Plan of Treatment Upcoming Encounters Date Type Department Care Team (Late st Contact Info) Description 11/10/2024 10:30 AM EDT Office Visit [facility] OPTOMETRY [address] [place] [address] Joycemendoza Tonya, OD [address] [place] [address] Health Maintenance Due Date Last Done Comments CT Colonography 1950 FIT DNA/Cologuard 1950 FIT 1950 FOBT 1950 Sigmoidoscopy 1950 Diabetes: Foot Exam 11/14/1961 Alcohol/Substance Use Screening 1963 Hepatitis C Screening 11/14/1969 Hepatitis A Vaccines (1 of 2 - Risk 2-dose series) 11/14/1970 Hepatitis B Vaccines (1 of 3 - Risk 3-dose series) 2011 Lipid Panel 11/27/2023 11/26/2022, 10/2020, 03/02/2020 COVID-19 Vaccine ( season) 2024 [...] Procedure Name Priority Date/Time Associated Diagnosis Comments HELICOBACTER PYLORI AG, EIA, STOOL Routine 09/19/2024 7:30 AM EDT Epigastric pain POCT GLYCATED HEMOGLOBIN, TOTAL Routine 08/12/2024 10:46 [...] Recently Relevant to Health Maintenance Results * Helicobacter pylori??Antigen, EIA, Stool (09/19/2024 7:30 AM EDT) H pylori Ag Stool SEE NOTE [facility] Comment:HELICOBACTER PYLORI AG, EIA, STOOL Micro Number: [id number] Test Status: Final Specimen Source: Stool Specimen Quality: Adequate H.pylori Ag: Not Detected Antimicrobials, proton pump inhibitors, and bismuth preparations inhibit H. pylori and ingestion up to two weeks prior to testing may cause false negative results. If clinically indicated the test should be repeated on a new specimen obtained two weeks after discontinuing treatment. Reference Range: Not DetectedTHIS TEST WAS PERFORMED AT:[facility] [address] [id number] HO MD Stool Rectal contents / Unknown 09/19/2024 7:30 AM EDT 09/19/2024 1:23 PM EDT Mary Rivera MD LAB BODY FLUIDS AND S TOOLS ORDERABLES Final Result [facility] [address] [place] [phone] * (ABNORMAL) POCT HGB A1C (08/12/2024 10:46 AM EST) Hemoglobin A1C 6.2(A) 4.0 - 6.0 % QC Media Lot # [id number] Lot# Expiration Date [id number] Blood 08/12/2024 10:4 6 AM EST us Mary Rivera MD POINT OF CARE TEST EN TER/EDIT ORDERABLES Final Result * POCT Glucose (08/12/2024 10:45 AM EST) Glucose Blood, POC 155 60 - 200 mg/dL Comment:Vinny ALVAREZ QC Media Lot # [id number] Lot# Expiration Date 183 Blood Capillary blood specimen / Unknown 08/12/2024 10:45 AM EST us Mary Rivera MD POINT OF CARE TEST EN TER/EDIT ORDERABLES Final Result * Hm Colonoscopy (02/16/2023) Historical Provider HEALTH MAINTENANCE Final Result * BI Mammogram Screening Tomosynthesis Bilateral (01/08/2023 12:20 PM EDT) Anatomical Region Laterality Modality Breast Bilateral Mammography 01/08/2023 12:2 0 PM EDT Narrative 01/30/2023 10:10 AM EDT ? [facility] ? [address] ?[place] [address] ? Mammography Report ? Signed ? Patient: Shannon Felipe,Hayley ?MR#: [id number] ?? [id number] ? : 1950 ?Acct:[id number] ? Age/Sex: 72 / F ?ADM Date: 07/27/23 ? Loc: HO.MAMMO ? Attending Dr: Mary Rivera MD ? Ordering Physician: Mary Rod MD ?Results: ? Date of Service: 01/08/23 ?Follow Up: ? Procedure(s): MM tomosynthesis screening BI ?? Accession Number(s): [id number] ? cc: Mary Rod MD ? EXAMINATION: [...] 1007 ? DD/ 1220 ? TD/TT: ? Windrower Operator: ? Procedure Note Donotuseinterpreter, Image - 01/30/2023 Tequila [facility] [address] [place], [place] [address] Mammography Report Signed Patient: Slade MarcaMR#: [id number] : 2Acct:[id number] Age/Sex: 72 / FADM Date: 01/08/23 Loc: HO.MAMMO Attending Dr: Mary Rivera MD Ordering Physician: Mary Rod MDResults: Date of Service: 01/08/23Follow Up: Procedure(s): MM tomosynthesis screening BI Accession Number(s): [id number] cc: Mary Rod MD EXAMINATION: MM SCREENING [...] in OV> 01/30/23 1007 DD/ 1220 TD/TT: Windrower Operator: Mary Rivera MD IMG BI PROCEDURES Kar peter Result - Final * Lipid Panel, Standard (11/26/2022 8:01 AM EDT) Cholesterol, Total 116 <200 mg/dL [facility] HDL Cholesterol 63 > OR = 50 mg/dL [facility] Triglycerides 63 <150 mg/dL [facility] LDL Cholesterol 39 mg/dL (calc) [facility] Comment: Reference range: <100 Desirable range <100 mg/dL for primary prevention; ?? <70 mg/dL for patients with CHD or diabetic patients with > or = 2 CHD risk factors. LDL-C is now calculated using the Kirill-Aguirre calculation, which is a validated novel method providing better accuracy than the Friedewald equation in the estimation of LDL-C. Kirill SS et al. ALEXANDER. 2013;310(19): 6942-4963 (http://education.[employer]/faq/HBR820) Chol/HDLC Ratio 1.8 <5.0 (calc) [facility] Non-HDL Cholesterol 53 <130 mg/dL (calc) [facility] Comment: For patients with diabetes plus 1 major ASCVD risk factor, treating to a non-HDL-C goal of <100 mg/dL (LDL-C of <70 mg/dL) is considered a therapeutic option. Blood Venous blood specimen / Unknown 11/26/2022 8:01 AM EDT 11/26/2022 8:01 AM EDT Narrative [facility] - 11/26/2022 10:02 PM EDT FASTING:YES FASTING: YES Mary Rivera MD LAB BLOOD ORDERABLES Final Result [facility] [address] [facility], [place] [address] [facility] [address] [place] [address] from Last 3 Months or Most Recently Relevant to Health Maintenance Insurance [facility] Care Teams Design Eng Relationship Specialty Start Date End Date Mary Rod MD [address] [place] [address] PCP - General Family Medicine 02/07/22
[2024-09-30 08:47] LABS: Acetaminophen LAB < 3 mcg/mL (<30)
[2024-09-30 08:49] LABS: Alanine Aminotransferase 368 U/L (0-31); Albumin Level 3.7 g/dL (3.5-5.0); Alkaline Phosphatase 104 U/L (39-117); Amylase 61 U/L (28-100); Anion Gap 13 (12-20); Aspartate Amino Transferase 403 U/L (5-31); Bilirubin Direct 0.2 mg/dL (0.0-0.5); Bilirubin Total 0.5 mg/dL (0.0-1.0); Blood Urea Nitrogen 14 mg/dL (9-16); Calcium 8.5 mg/dL (8.4-10.2); Carbon Dioxide 22 mmol/L (22-29); Chloride 109 mmol/L (96-108); Estimated Glomerular Filt Rate > 60; Glucose Random 126 mg/dL (60-115); Lactate Dehydrogenase 527 U/L (122-220); Lipase 18 U/L (8-78); Potassium 4.5 mmol/L (3.3-5.1); Sodium 139 mmol/L (135-145); Total Protein 6.7 g/dL (6.5-8.0)
[2024-09-30 09:10] LABS: HBS Num1 6.91 mIU/mL (0-7.99); HBc Num1 0.06 S/CO (0.00-0.79); HBsAGNum1 0.24 S/CO (0.00-0.99); HIV AB/AG Nonreactive (Nonreactive); HIV Num 1 0.08 S/CO (0.00-0.99); Hepatitis B Core Antibody Nonreactive (Nonreactive); Hepatitis B Surface Antigen Negative (Negative); ~HepC Num1 0.09 S/CO (0.00-0.79); ~Hepatitis B Surface Antibody NONREACTIVE (Nonreactive); ~Hepatitis C Antibody Nonreactive (Nonreactive)
[2024-09-30 09:57] LABS: Monotest Negative (Negative)
[2024-10-04 08:39] LABS: Hepatitis A Antibody IgM 0.14 Index (0-0.79); ~Hepatitis A Antibody IgM Nonreactive (Nonreactive)
[2024-10-05 15:38] LABS: ANA Titer 2 1:40 titer; Anti Nuclear Antibody Pattern Nuclear, Speckled; Anti Nuclear Antibody Screen POSITIVE (NEGATIVE)
== END 2024-09-30 08:14 | disposition home or self-care (01) ==
LOC: HO.LAB 08:13
PROVIDERS: PCP Internal Medicine; Visit Provider Nurse Practitioner
DX: J45.40 Moderate persistent asthma, uncomplicated (principal); R74.01 Elevation of levels of liver transaminase levels; E11.22 Type 2 diabetes mellitus with diabetic chronic kidney disease
CPT/HCPCS: 36415; 80053; 80143; 82150; 82248; 83615; 83690; 86038; 86039; 86308; 86704; 86706; 86709; 86803; 87340; 87389; 99212

== ENCOUNTER 2024-09-30 08:33 | Outpatient (AMB) | payer OTHER, SELFPAY ==
--- OUTSIDE RECORDS SUMMARY | 2024-09-30 08:52 | XMS_ITS | Encounter Summary ---
Author Organization [employer] Address [address] [facility] [address] [place] [address] Care Team Providers Care Plug Drill Operator Name Role Phone Mary Rod MD Primary Care Provide r Encounter Details Date Type Department Care Team (Late st Contact Info) Description 09/30/2024 Orders Only GENERIC EXTERNAL DATA DEPARTMENT Provider, Generic External Data Social History Tobacco Use Types Packs/Day Years [...] is your housing situation today? I have luisamega caicedo 01/07/[address] you [...] Description 11/10/2024 10:30 AM EDT Office Visit [facility] OPTOMETRY [address] [place], [place] [phone] TarkaTonya, OD [address] [place] [address] documented as of this encounter Goals Goal Patient Goal Type Associated Problems Recent Progress Patient-Stated? Author Record your blood pressure once per day Blood Pressure No Giovany Lin PharmD Note: When you receive your new BP monitor Short-term: Promote adherence to treatment regimen General No Giovany Lin PharmD documented as of this encounter Procedures Procedure Name Priority Date/Time Associated Diagnosis Comments LIPASE Routine 09/30/2024 8:24 AM EDT LD Routine 09/30/2024 8:24 AM EDT AMYLASE Routine 09/30/2024 8:24 AM EDT ACETAMINOPHEN LEVEL Routine 09/30/2024 8 :24 AM EDT HEPATIC FUNCTION PANEL Routine 8:24 AM EDT COMPREHENSIVE METABOLIC PANEL Routine 09/30/2024 8:24 AM EDT documented in this encounter Results * Lipase (09/30/2024 8:24 AM EDT) Lipase 18 8 - 78 U/L [facility] 09/30/2024 8:24 AM EDT 09/30/2024 8:24 AM EDT Generic External Data Provider LAB BLOOD ORDERAB LES Final Result Performing Organization Address [facility] de Phone Number [facility] [address] [place] [phone] * Amylase (09/30/2024 8:24 AM EDT) Amylase 61 28 - 100 U/L [facility] 09/30/2024 8:24 AM EDT 09/30/2024 8:24 AM EDT Generic External Data Provider LAB BLOOD ORDERAB LES Final Result Performing Organization Address [facility] Phone Number [facility] [address] [place] [phone] * (ABNORMAL) Lactate Dehydrogenase (LD) (09/30/2024 8:24 AM EDT) Lactate Dehydrogenase 527(H) 122 - 220 U/L [facility] Comment:Slight Hemolysis.Int erpret result with caution. 09/30/2024 8:24 AM EDT 09/30/2024 8:24 AM EDT Generic External Data Provider LAB BLOOD ORDERAB LES Final Result Performing Organization Address [facility] de Phone Number [facility] [address] [place] [phone] * Hepatic Function Panel (09/30/2024 8:24 AM EDT) Bilirubin, Direct 0.2 0.0 - 0.5 mg/dL [facility] 09/30/2024 8:24 AM EDT 09/30/2024 8:24 AM EDT us Generic External Data Provider LAB BLOOD ORDERAB LES Final Result [facility] [address] [place] [phone] * (ABNORMAL) Comprehensive Metabolic Panel (09/30/2024 8:24 AM EDT) Sodium 139 135 - 145 mmol/L [facility] Potassium 4.5 3.3 - 5.1 mmol/L [facility] Comment:Slight Hemolysis.Int erpret result with caution. Chloride 109(H) 96 - 108 mmol/L [facility] Carbon Dioxide 22 22 - 29 mmol/L [facility] Anion Gap 13 12 - 20 [facility] Urea Nitrogen (BUN) 14 9 - 16 mg/dL [facility] Creatinine, Serum 0.76 0.5 - 1.4 mg/dL [facility] Estimated Glomerular Filt Rate >60 [facility] Comment:Chronic Kidney Disea se: Estimated GFR < 60 mL/min/1.79i8Hqnwuw Kidney Disease: Estimated GFR < 15 mL/min/1.73m2 Glucose 126(H) 60 - 115 mg/dL [facility] Calcium 8.5 8.4 - 10.2 mg/dL [facility] Bilirubin, Total 0.5 0.0 - 1.0 mg/dL [facility] Aspartate Amino Transferase 403(H) 5 - 31 U/L [facility] Comment:Slight Hemolysis.Int erpret result with caution. Alanine Aminotransferase 368(H) 0 - 31 U/L [facility] Total Protein 6.7 6.5 - 8.0 g/dL [facility] Albumin Level 3.7 3.5 - 5.0 g/dL [facility] Alkaline Phosphatase 104 39 - 117 U/L [facility] 09/30/2024 8:24 AM EDT 09/30/2024 8:24 AM EDT us Generic External Data Provider LAB BLOOD ORDERAB LES Final Result Performing Organization Address City/[facility]/ZIP Co de Phone Number [facility] [address] [place] [phone] * Acetaminophen level (09/30/2024 8:24 AM EDT) Acetaminophen LAB <3 <30 mcg/mL [facility] 09/30/2024 8:24 AM EDT 09/30/2024 8:24 AM EDT Generic External Data Provider LAB BLOOD ORDERAB LES Final Result Performing Organization Address [facility] Co de Phone Number [facility] [address] [place] [phone] documented in this encounter Visit Diagnoses Not on filedocumented in this encounter Additional Health Concerns Assessment Noted Time PHQ-9 Depression Total Score: 0 01/07/20 24 9:26 AM EDT documented as of this encounter Care Teams Plug Drill Operator Relationship Specialty Start Date End Date Mary Rod MD [address] [place] [phone] PCP - General Family Medicine 02/07/22 documented as of this encounter
[2024-09-30 09:28] VITALS: BP 110/52; PULSE 70; O2SAT 100; BMI 26.9
--- NOTE | 2024-09-30 09:28 | A.OFFVIS_ITS ---
Vital Signs 09/30/24 09:28 Height 5 ft Weight 137 lb 12.623 oz BMI 26.9 BP 110/52 L Blood Pressure Location Rt brachial Position Sitting Pulse 70 Pulse Source Pulse Oximeter Pulse Oximetry (%) 100 Oxygen Delivery Method Room Air Intake Visit Reasons: Asthma/ANGIE Allergies No Known Allergies [No Known Allergies*] Allergy (Verified 09/29/24 09:05) HPI Comments Details: The patient is a 73-year-old woman with the history of asthma in addition to obstructive sleep apnea. Apparently she has been on the Trelegy inhaler in addition to her rescue inhaler. Seems like she is not using the Trelegy. She does not like the powder and this med is helping her. She does use a Ventolin inhaler multiple times a day however. Denies any significant cough chest congestion. She has many chest tightness and wheezing at times. I do believe that she may do better with Symbicort as it is more potent and she may feel the affects of bed and she understands that she will use it twice a day. In the meantime the patient also has underlying daytime drowsiness. Her Guthrie score is elevated 10/24. The patient does have significant snoring at nighttime. She did undergo a sleep study that was done back in 01/2023 demonstrating mild sleep apnea with significant hypoxia. The patient will benefit from starting CPAP at this time. She is looking for to using it and using a small mask. 06/22/2023 the patient is here for a pulmonary follow-up visit. Overall the patient has been doing fairly well from a respiratory status. She does have some musculoskeletal back pain when she is breathing and doing certain house chores. Otherwise, denies any wheezing or chest tightness. She continues on the inhalers with good response. In addition to that she does have daytime drowsiness. Her Guthrie score is elevated 11/24. She did get her new CPAP. However she does not know how to use it. She did bring it in. We did take time to teach her how to set up. We did set up with the right mask which is the N20 small mask with the slight and tubing and also decreased her pressures to 4-8 maximum. The patient may also benefit from a chin strap. The patient will start using her CPAP every night for 4 hours. She will return in a couple months with the machine needs we can help her further get used to it. It is difficult for to get used to the equipment, but, in no will help her when she gets comfortable with the equipment in the mask and we can set the right pressure settings for her. 09/25/2023 the patient is here for pulmonary follow-up visit. Overall the patient is doing fair. She recently was hospitalized with a non ST elevation HI. She was initially evaluated at [place] and then transferred over to [facility] where she underwent PCI. The patient had an echocardiogram with an EF of 40%. She is still weak and she still recovering. But she is feeling better. She has been using a new CPAP. The CPAP therapy has been affecting beneficial. She does use it for more than 4 hours a night. The average pressure comes out to be around 7 cm of pressure. The patient sometimes opens her mouth and she does jiménez ve an air leak. I will request a chinstrap from her [employer] company, [email or web address]. Her respiratory medications are stable right now. The patient overall has been recovering. She is awaiting to get a little stronger to go to rehabilitation. 03/29/2024 the patient is here for a pulmonary follow-up visit. Overall the patient is doing okay. She did get the CPAP. The patient has not been using it as regularly. She still trying to get used to it. I will request access to her airway count in order to be able to adjust the machine accordingly. She understands that she needs to use it at least 4 hours a day. In addition to that the patient is taking a cardioprotective medications at this time because of her underlying heart attack and CAD. Her major complaint is the fact that she can not lose any weight. She feels that the weight is bothers her breathing and overall quality of life. She is on Trulicity. She is wondering about any other medications. 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 09/30/2024 the patient is here for a pulmonary follow-up visit. Overall the patient has been doing okay. She is recuperating after fracturing her left wrist. Number healed well. Having significant amount of pain. She is still working with orthopedic surgery. In addition to that she was having some GI symptoms. She was found to have significant hepatitis with significant elevation of the LFTs. She is following closely with GI. From a pulmonary standpoint she continues use her inhalers with good effect. Denies having to use any prednisone or rescue therapy. In addition to that she does use CPAP at night. CPAP therapy has been affecting beneficial. She does need to use more than 4 hours a night. Will request for supplies for her. [facility] Medical History Left hip pain Sacroiliac joint pain Elevated liver enzymes Right knee pain Left lumbar radiculitis Lumbago with sciatica Sepsis Right anterior knee pain Nausea and vomiting Candidiasis of mouth and esophagus Dysuria Medication monitoring encounter Abnormal findings on diagnostic imaging of musculoskeletal system Myocardial infarction Asthma ANGIE (obstructive sleep apnea) Diabetes Esophageal dysmotilities Esophageal candidiasis Pneumonia Cystitis Recurrent UTI (urinary tract infection) Vitamin D deficiency Hypothyroidism Osteoporosis B12 deficiency Iron deficiency anemia IBS (irritable bowel syndrome) Surgical History H/O heart surgery Hx of gastric bypass History of esophagogastroduodenoscopy (EGD) Hx of colonoscopy History of arthroscopy of left shoulder Family History Father No problems noted. 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 Patient Tobacco Use Status: Never used Tobacco service: No Current occupational status: disabled Review of Systems Const Denies daytime sleepiness, Reports difficulty sleeping and Denies snoring ENT Reports nasal congestion and Reports nasal discharge Card Denies chest pain Resp Reports cough, Denies snoring and Denies wheezing GI Denies abdominal pain Musc Reports no additional complaints Skin/Breast Denies rash Neuro Reports no additional complaints Endo Reports no additional complaints Luis Miguel/Lymph Denies lymphadenopathy Aller/Immun Denies wheezing Physical Exam Vital Signs: Last Vital Signs Pulse 70 09/30/24 09:28 BP 110/52 L 09/30/24 09:28 Pulse Ox 100 09/30/24 09:28 Oxygen Delivery Method Room Air 09/30/24 09:28 BMI result Body Mass Index 26.9 Const General: comfortable HEENT Head: Yes normocephalic Eyes General: appearance normal, both eyes and all related structures Neck Neck: Yes supple Chest Chest palpation & inspection: normal inspection of the chest Resp Effort & Inspection: normal respiratory effort and prolonged expiratory phase Auscultation: rhonchi, wheezes and diminished lung sounds Cardio Rate: regular rate Rhythm: regular rhythm Heart sounds: S1 normal heart sound present and S2 normal heart sound present GI Palpation (GI): Soft to palpation Skin General skin exam: no rashes or lesions noted Extrem General: Yes no clubbing, cyanosis or edema Assessment & Plan Assessment & Plan (1) Asthma: Code(s): J45.909 - Unspecified asthma, uncomplicated Category: Medical Qualifiers: Asthma complication type: uncomplicated Asthma persistence: persistent Asthma severity: moderate Qualified Code(s): J45.40 - Moderate persistent asthma, uncomplicated (2) ANGIE (obstructive sleep apnea): Code(s): G47.33 - Obstructive sleep apnea (adult) (pediatric) Category: Medical Plan Trelegy AMANDA as needed continue APAP, adjusted pressures 4-8, N20 small. Needs a chin strap F/U 8-12 months Coding Level of Care Code Est Pt Level 4 (48479) Diagnoses Moderate persistent asthma without complication J45.40 Asthma complication type: uncomplicated Asthma persistence: persistent Asthma severity: moderate ANGIE (obstructive sleep apnea) G47.33 Time Spent (min) 16
== END 2024-09-30 10:07 | disposition home or self-care (01) ==
LOC: HO.HPS 08:34
PROVIDERS: PCP Internal Medicine; Visit Provider Hospitalist
DX: J45.40 Moderate persistent asthma, uncomplicated (principal); G47.33 Obstructive sleep apnea (adult) (pediatric)
CPT/HCPCS: 99214

== ENCOUNTER 2024-10-12 09:39 | Outpatient (AMB) | payer OTHER, SELFPAY ==
--- NOTE | 2024-10-12 10:17 | MHC.OFFVIS ---
Vital Signs 10/12/24 10:22 Height 5 ft Weight 137 lb BMI 26.8 Intake Visit Reasons: OV- Lt Distal Rad/Ulnar Styloid ORIF&CTR 04/07/24 Intake Note: Hayley is a 73 year old right hand dominant female who presents today for a follow up of her left wrist. She is s/p Left Distal Radius & Ulnar Styloid CRPP & left Carpal Tunnel Release DOS: 04/07/[address] Ruth Peterson. States she is having weakness in hand, swelling and pain. Reports she has dropped about 8 plates and cups due to weakness and pain in hand. Hydraulic Jack Operator Name: Patti CCMA/LM Allergies No Known Allergies [No Known Allergies*] Allergy (Verified 10/14/24 09:42) HPI HPI OV- Lt Distal Rad/Ulnar Styloid ORIF&CTR 04/07/24: Details: Hayley is a 73 year old right hand dominant female who presents today for a follow up of her left wrist. She is s/p Left Distal Radius & Ulnar Styloid CRPP & left Carpal Tunnel Release DOS: 04/07/[address] Ruth Peterson. States she is having weakness in hand, swelling and pain. Reports she has dropped about 8 plates and cups due to weakness and pain in hand. [facility] Medical History (Updated 10/14/24 @ 10:30 by ABE Breen) Dysuria Myocardial infarction Left hip pain Sacroiliac joint pain Elevated liver enzymes Right knee pain Left lumbar radiculitis Lumbago with sciatica Sepsis Right anterior knee pain Nausea and vomiting Candidiasis of mouth and esophagus Medication monitoring encounter Abnormal findings on diagnostic imaging of musculoskeletal system Asthma ANGIE (obstructive sleep apnea) Diabetes Esophageal dysmotilities Esophageal candidiasis Pneumonia Cystitis Recurrent UTI (urinary tract infection) Vitamin D deficiency Hypothyroidism Osteoporosis B12 deficiency Iron deficiency anemia IBS (irritable bowel syndrome) Surgical History H/O heart surgery Hx of gastric bypass History of esophagogastroduodenoscopy (EGD) Hx of colonoscopy History of arthroscopy of left shoulder Family History Father No problems noted. 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 Patient Tobacco Use Status: Never used Tobacco service: No Current occupational status: disabled Review of Systems Const All systems reviewed & are unremarkable except as noted in HPI and below Physical Exam Vital Signs: BMI result Body Mass Index 26.8 Const General: no acute distress and alert Orientation/consciousness: patient oriented x3 Neuro General: patient oriented x3 Extrem Other: Evaluation of Left Upper Extremity: The patient is alert, oriented, and in no acute distress Neuro: Median, Ulnar, Radial nerves motor and sensory intact and sensation is normal to the tips of all digits Vascular: Cap refill brisk ROM: She was anxious about moving her hand and wrist today in clinic. With encouragement she could almost bring her fingers closed to a fist and back into extension Patient does report significant pain when doing this Wrist ROM: ~80 degrees pronation ~60 degrees supination ~ 20 degrees extension ~ 50 degrees flexion DRUJ stable on exam Fracture site non-tender Psych Appearance: grossly normal Affect: normal affect Attitude: cooperative Assessment & Plan Assessment & Plan (1) Carpal tunnel syndrome of left wrist: Code(s): G56.02 - Carpal tunnel syndrome, left upper limb Category: Medical (2) Nondisplaced fracture of left ulna styloid process, sequela: Code(s): S52.615S - Nondisplaced fracture of left ulna styloid process, sequela Category: Medical (3) Closed fracture of left distal radius: Code(s): S52.502A - Unspecified fracture of the lower end of left radius, initial encounter for closed fracture Category: Medical Plan 1. Severe stiffness of left hand and wrist status post left distal radius ORIF DOS 04/07/2024 Patient appears to be recovering fairly well postoperatively Patient is educated about the typical recovery course Occupational therapy reordered for this patient, as I do feel she is benefitting from it and should have more than 1 more appointment Patient is educated on the potential effects of not pushing past minimal discomfort for range of motion of the hand, such as permanent limited function by virtue of stiffness Patient states understanding of this Patient will follow-up in 6 weeks for repeat [id number] check, sooner with any acute concerns Orders: Orders OT Evaluation and Treatment 10/12/24 G56.02 - Carpal tunnel syndrome, left upper limb, S52.615S - Nondisplaced fracture of left ulna styloid process, sequela Coding Level of Care Code Est Pt Level 3 (59521) Diagnoses Carpal tunnel syndrome of left wrist G56.02 Nondisplaced fracture of left ulna styloid process, sequela S52.615S Closed fracture of left distal radius S52.502A
[2024-10-12 10:22] VITALS: BMI 26.8
--- OUTSIDE RECORDS SUMMARY | 2024-10-12 10:26 | XMS_ITS | Encounter Summary ---
Author Organization [employer] Address [address] [facility] [address] [place] [address] Care Team Providers Care Processing Manager Name Role Phone Mary Rod MD Primary Care Provide r Reason for Visit * Reason Comments Med Refill Encounter Details Date Type Department Care Team (Late st Contact Info) Description 10/11/2024 Refill [facility] MED & PEDS [address] [place], [place] [id number] [facility] [address] [place] [address] Social History Tobacco Use Types Packs/Day Years [...] Office Visit [facility] OPTOMETRY [address] [place] [address] TarkaTonya, OD [address] [place] [address] documented as of this encounter Goals Goal [...] documented as of this encounter Care Teams Processing Manager Relationship Specialty Start Date End Date Mary Rod MD [address] [place] [address] PCP - General Family Medicine 02/07/22 documented as of this encounter
--- OUTSIDE RECORDS SUMMARY | 2024-10-12 10:26 | XMS_ITS | Encounter Summary ---
Author Organization [employer] Address [address] [facility] [address] [place] [address] Care Team Providers Care Pure Culture Operator Name Role Phone Mary Rod MD Primary Care Provide r Encounter Details Date Type Department Care Team (Late st Contact Info) Description 03/24/2023 [facility] [address] [place] [address] Tonia Cardoza Social History Tobacco Use Types [...] Description 11/10/2024 10:30 AM EDT [facility] OPT[facility] [address] [place], [place] [phone] Tarka, Tonya, OD [address] [place] [address] documented as of this encounter Goals Goal [...] documented as of this encounter Care Teams Pure Culture Operator Relationship Specialty Start Date End Date Mary Rod MD [address] [place] [address] PCP - General Family Medicine 02/07/22 documented as of this encounter
--- OUTSIDE RECORDS SUMMARY | 2024-10-12 10:26 | XMS_ITS | Encounter Summary ---
Author Organization [employer] Address [address] [facility] [address] [address] Care Team Providers Care Justice Professor Name Role Phone Mary Rod MD Primary Care Provide r Reason for Visit * Reason Comments Med Refill Encounter Details Date Type Department Care Team (Late st Contact Info) Description 10/11/2024 Refill [facility] MEDICINE [address] [place] [address] Mary Rod MD [address] [place] [address] Social History Tobacco Use Types Packs/Day Years [...] 10:30 AM EDT Office Visit [facility] OPTOMETRY [address] [place] [address] TarkaTonya, OD [address] [place] [address] documented as of this encounter Goals Goal [...] documented as of this encounter Care Teams Justice Professor Relationship Specialty Start Date End Date Mary Rod MD [address] [place] [address] PCP - General Family Medicine 02/07/22 documented as of this encounter
--- OUTSIDE RECORDS SUMMARY | 2024-10-12 10:26 | XMS_ITS | Encounter Summary ---
Author Organization [facility] [employer] Address [address] [facility] [address] [address] Care Team Providers Care Supply Requirements Officer Name Role Phone Mary Rod MD Primary Care Provide r Encounter Details Date Type Department Care Team ([facility] st Contact Info) Description 03/25/2023 Orders Only [facility] MEDICINE [address] [place] [address] ProviderLinsey MD Social History Tobacco Use Types [...] Description 11/10/2024 10:30 AM EDT Office Visit [facility] OPTOMETRY [address] [place], [place] [phone] Tarka, Tonya, OD [address] [place] [address] documented as of this encounter Goals Goal [...] documented as of this encounter Care Teams Supply Requirements Officer Relationship Specialty Start Date End Date Mary Rod MD [address] [place] [address] PCP - General Family Medicine 02/07/22 documented as of this encounter
--- OUTSIDE RECORDS SUMMARY | 2024-10-12 10:26 | XMS_ITS | Encounter Summary ---
Author Organization [employer] Address [address] [facility] [address] [address] Care Team Providers Care Cpht Name Role Phone Mary Rod MD Primary Care Provide r Encounter Details Date Type Department Care Team (Late Contact Info) Description 11/12/2022 [facility] Health Information Management [address] [place] [address] Mary Rod MD [address] [place] [address] Social History Tobacco Use Types Packs/Day Years [...] Description 11/10/2024 10:30 AM EDT Office Visit [facility] OPTOMETRY [address] [place] [address] Tonya Brennan, OD [address] [place] [address] documented as of this encounter Goals Goal [...] documented as of this encounter Care Teams Cpht Relationship Specialty Start Date End Date Mary Rod MD [address] [place] [address] PCP - General Family Medicine 02/07/22 documented as of this encounter
--- OUTSIDE RECORDS SUMMARY | 2024-10-12 10:26 | XMS_ITS | Encounter Summary ---
Author Organization [employer] Address [address] [facility] [address] [place] [address] Care Team Providers Care Drying Room Operator Name Role Phone Mary Rod MD Primary Care Provide r Reason for Visit * Reason Onset Date Comments Med Refill 10/12/2024 Encounter Details Date Type Department Care Team ([facility] st Contact Info) Description 10/12/2024 Telephone [facility] MEDICINE [address] [place] [address] Mary Rod MD [address] [place] [address] Med Refill Social History Tobacco Use Types Packs/Day Years [...] AM EDT documented as of this encounter Miscellaneous Notes * Telephone Encounter - Catalina Nassar LPN - 10/12/2024 8:36 AM EDT MEDICAL RECEPTIONIST checked on 10/12/24 Ambien last filled on 08/04/24 by Mariaelena Yan. * Telephone Encounter - Michael Fabian - 10/12/2024 8:30 AM EDT TC from pt requesting medication refill. Medications needing refill : zolpidem (Ambien) 10 MG tablet To be sent to: [facility] - [place], [place] - [address] [facility] documented in this encounter Plan of Treatment Upcoming Encounters Date Type Department Care Team (Late st Contact Info) Description 11/10/2024 10:30 AM EDT Office Visit [facility] OPTOMETRY [address] [place] [address] Tonya Brennan, OD [address] [place] [address] documented as of this encounter Goals Goal [...] documented as of this encounter Care Teams Drying Room Operator Relationship Specialty Start Date End Date Mary Rod MD [address] [place] [address] PCP - General Family Medicine 02/07/22 documented as of this encounter
--- OUTSIDE RECORDS SUMMARY | 2024-10-12 10:27 | XMS_ITS | Clinical Summary ---
Author Organization [facility] Address [address] [address] Care Team Providers Care Program Manager Transportation Name Role Phone Natalee Rooney MD Primary Care Provider [phone] Allergies Active Allergy Reactions Criticality Noted Date [...] Resolved Date Left flank pain 01/07/2021 01/07/2021 Immunizations Immunization Administration Dates Next Due H1N1 [...] Care Team (Late st Contact Info) Description 05/15/2025 2:45 PM EST Office Visit [facility] [address] [place] [address] Rober Acharya MD [address] [facility] [address] [place] [address] Health Maintenance Due Date Last Done Comments Breast Cancer Screening 1950 Colorectal Cancer Screening: Annual FOBT 11/14/2000 Colorectal Cancer Screening: Colonoscopy 11/14/2000 Colorectal Cancer Screening: Sigmoidoscopy 11/14/2000 Diabetes: Ophthalmology Exam 07/16/2020 Diabetes: Pedal Pulse Checked 07/16/2020 Diabetes: Sensory Foot Exam 07/16/2020 Diabetes: Visual Foot Exam 07/16/2020 Diabetes: Hemoglobin A1C 11/09/2024 08/12/2024, 07/10/2023 Pneumococcal Vaccine: 50+ Years Completed 04/23/2021, 04/26/2017, 04/05/2012, Additional history exists Pneumococcal Vaccine: Peds (0 to 5 Years) and At-Risk Patients (6 to 49 Years) Discontinued 04/23/2021, 04/26/2017, 04/05/2012, Additional history exists Influenza Vaccine Completed 08/18/2024, , 03/19/2021, Additional history exists Hepatitis B Vaccine Aged Out No longe r eligible based on patient's age to complete this topic Insurance [facility] ([id number]) [facility] ([id number]) Care Teams Program Manager Transportation Relationship Specialty Start Date End Date Natalee Rooney MD PCP - General Family Medicine 02/05/21
--- OUTSIDE RECORDS SUMMARY | 2024-10-12 10:27 | XMS_ITS | Encounter Summary ---
Author Organization [employer] Address [address] [facility] [address] [place] [address] Care Team Providers Care [employer]erox Machine Operator Name Role Phone Mary Rod MD Primary Care Provide r Reason for Visit * Reason Comments Med Refill Encounter Details Date Type Department Care Team (Late st Contact Info) Description 04/13/2023 Refill [facility] MEDICINE [address] [place] [address] Yara Tompkins MD [address] [place] [address] Social History Tobacco Use Types Packs/Day Years [...] Description 11/10/2024 10:30 AM EDT Office Visit [facility] OPTOMETRY [address] [place] [address] TarkaTonya, OD [address] [place] [address] documented as of this encounter Goals Goal [...] documented as of this encounter Care Teams [employer] Machine Operator Relationship Specialty Start Date End Date Mary Rod MD [address] [place] [address] PCP - General Family Medicine 02/07/22 documented as of this encounter
--- OUTSIDE RECORDS SUMMARY | 2024-10-12 10:27 | XMS_ITS | Clinical Summary ---
Author Organization [employer] Address [address] [place] [address] Care Team Providers Care Senior Environmental Technician Name Role Phone Mary Rod MD Primary [...] to 25 doses. 40 tablet 023 Active ipratropium-albu terol (Duo-Neb) 0.5-2.5 mg/3 mL nebulizer solution INHALE 1 AMPULE USING A NEBULIZER FOUR TIMES DAILY 180 mL 1 Active terbinafine (LamISIL AT) 1 % creamIndications :Tinea pedis of both feet Apply topically 2 times daily. 30 g 023 Active Additional Information Patient not taking.Reported on 10/28/2023 budesonide-formo terol (Symbicort) 160-4.5 MCG/ACT inhaler INHALE 2 PUFFS BY MOUTH TWICE DAILY. RINSE MOUTH AFTER USING. Active sacubitril-valsa rtan (Entresto) 24-26 MG tablet Take 1 tablet by mouth 2 times daily. Active metoprolol succinate XL (Toprol-XL) 50 MG 24 hr tabletIndication s:Primary hypertension Take 1 tablet (50 mg) by [...] MOUTH THREE TIMES DAILY Active Multiple Vitamins-Iron (Tab-A-Star/Iron /Beta Carotene) tablet Take 1 tablet by mouth every morning with food Active cyanocobalamin (Vitamin B-12) 1000 MCG tablet Take 1,000 mcg by mouth Once per day. Active pancrelipase, Mvh-Ooun-Sfjq, (Creon) 21429-68705 units capsuleIndicatio ns:Pancreatic insufficiency TAKE 1 CAPSULE BY MOUTH FOUR TIMES DAILY WITH FOOD AND 1 CAPSULE WITH SNACKS DO NOT BREAK, CRUSH, DISSOLVE OR CHEW 120 capsule 3 Active Nyamyc [id number] UNIT/GM powderIndication s:Intertrigo APPLY TOPICALLY TO AFFECTED AREA(S) TWICE DAILY 60 g 1 Active lidocaine (Xylocaine) 5 % ointmentIndicati ons:Closed fracture of distal end of left radius, unspecified fracture morphology, initial encounter Apply topically if needed for mild pain. 50 g 1 024 2024 Active Brilinta 90 MG tabletIndication s:Essential hypertension TAKE 1 TABLET BY MOUTH TWICE DAILY IN THE MORNING AND IN THE EVENING 60 tablet 3 Active montelukast (Singulair) 10 MG tablet TAKE 1 TABLET BY MOUTH AT BEDTIME 30 tablet 3 Active Diclofenac Sodium 1 % gelIndications:L eft hand pain Apply 1 Application topically every 12 (twelve) hours if needed (apply on affected area). 100 g 1 Active Trulicity 0.75 MG/0.5ML solution auto-injector INJECT ONE PEN (=0.75MG) SUBCUTANEOUSLY ONCE A WEEK DIRECTED 6 mL 3 025 Active Farxiga 10 MGIndications:Ty pe 2 diabetes mellitus with chronic kidney disease, without long-term current use of insulin, unspecified CKD stage (CMS/HCC) TAKE 1 TABLET BY MOUTH EVERY MORNING 30 tablet 2 Active gabapentin (Neurontin) 600 MG tabletIndication s:Spinal stenosis of lumbar region, unspecified whether neurogenic claudication present TAKE 1 TABLET BY MOUTH THREE TIMES DAILY IN THE MORNING, AT NOON, AND AT BEDTIME 90 tablet 2 025 Active topiramate (Topamax) 25 MG tablet TAKE 1 TABLET BY MOUTH EVERY EVENING 30 tablet 025 Active sucralfate (Carafate) 1 g tabletIndication s:Epigastric pain TAKE 1 TABLET BY MOUTH FOUR TIMES DAILY BEFORE MEALS AND AT BEDTIME 120 tablet 025 Active levothyroxine (Synthroid, Levoxyl) 125 MCG tabletIndication s:Acquired hypothyroidism TAKE 1 TABLET EVERY MORNING BEFORE BREAKFAST 30 tablet Active aspirin (Aspirin Low Dose) 81 MG EC tablet TAKE 1 TABLET BY MOUTH EVERY MORNING 90 tablet 3 025 Active Multiple Vitamins-Mineral s (CertaVite/Antio xidants) tablet TAKE 1 TABLET BY MOUTH EVERY MORNING WITH FOOD 90 tablet 3 025 Active rosuvastatin (Crestor) 40 MG tablet TAKE 1 TABLET BY MOUTH AT BEDTIME 90 tablet 3 025 Active metFORMIN XR (Glucophage-XR) 500 MG 24 hr tablet TAKE 1 TABLET BY MOUTH TWICE DAILY IN THE MORNING AND IN THE EVENING WITH FOOD 180 tablet 025 Active rosuvastatin (Crestor) 40 MG tablet TAKE 1 TABLET BY MOUTH AT BEDTIME 90 tablet 3 024 2024 Discontinued aspirin (Aspirin Adult Low Strength) 81 MG EC tablet TAKE 1 TABLET BY MOUTH EVERY MORNING 90 tablet 3 024 2024 Discontinued levothyroxine (Synthroid, Levoxyl) 125 MCG tabletIndication s:Acquired hypothyroidism TAKE 1 TABLET BY MOUTH EVERY MORNING BEFORE BREAKFAST 30 tablet 024 2024 Discontinued metFORMIN XR (Glucophage-XR) 500 MG 24 hr tablet TAKE 1 TABLET BY MOUTH TWICE DAILY IN THE MORNING AND IN THE EVENING WITH FOOD 180 tablet 025 2024 Discontinued(R eorder (will not trigger notification to Pharmacy)) sucralfate (Carafate) 1 g tabletIndication s:Epigastric pain Take 1 tablet (1 g) by [...] with specialist Coronary artery disease invo lving [place] coronary artery of [place] heart 05/20/2024 Ecchymoses, spontaneous 02/02/2024 Assessment & [...] Duoneb NBZ but advise to see her heavy forger helper if needed -has apt w concrete block molder in 12/2023 Hyperkalemia 09/30/2023 Assessment & Plan (09/30/2023 3:04 PM EDT): I will repeat BMP to monitor her K level NSTEMI (non-ST elevated myocardial infarction) 0 09/17/2023 Assessment & Plan (09/30/2023 3:02 PM EDT): Continue to follow with cardiology C/w cardiac rehab Assessment & Plan (09/17/2023 10:26 AM EDT): [facility] appoitnments with me and pharmacy [...] 06/12/2023 Acute kidney injury superimposed on CKD ([facility] ) 01/19/2023 Assessment & Plan (01/19/2023 4:49 [...] Encounters Date Type Department Care Team Description 10/12/2024 Telephone [facility] [address] [place] [address] Mary Rod MD Med Refill 10/11/2024 Refill [facility] [address] [place] [address] [facility], [facility] 10/11/2024 Refill [facility] [address] [place] [address] Mary Rod MD 09/30/2024 Orders Only GENERIC EXTERNAL DATA DEPARTMENT Provider, Generic External Data 09/20/2024 Refill [facility] [address] [place] [address] Mary Rod MD Epigastric pain; Acquired hypothyroidism 09/09/2024 Refill [facility] [address] [place] [address] Mary Rod MD Type 2 diabetes mellitus with chronic kidney disease, without long-term current use of insulin, unspecified CKD stage ([facility]); Spinal stenosis of lumbar region, unspecified whether neurogenic claudication present 09/07/2024 Refill [facility] [address] [place] [address] Mary Rod MD 08/18/2024 10:50 AM EST Immunization [facility] [address] [place], [place] [phone] Alexia Guthrie LPN Encounter for immunization (Primary Dx) 08/17/2024 Refill [facility] [address] [place] [address] Zeinab Tompkins MD 08/12/2024 11:15 AM EST Office Visit [facility] [address] [place] [address] Mary Rod MD Epigastric pain (Primary Dx); Type 2 diabetes mellitus with chronic kidney disease, without long-term current use of insulin, unspecified CKD stage (CMS/HCC); Left hand pain 08/12/2024 Travel 08/12/2024 Refill [facility] [address] [place] [address] Mary Rod MD Essential hypertension 07/29/2024 Patient Outreach [facility] [address] [place] [address] Mary Rod MD Pre-visit Planning ((Unable to reach for PVP screening, LVM)) from Last 3 Months Immunizations Name Administration [...] seasonal, injecta ble, preservative free 04/05/2012 Novel [id number] 05/14/2016 Pfizer Covid-19 Vaccine 12+ 06/18/2023 Pneumococcal [...] Description 11/10/2024 10:30 AM EDT Office Visit [facility] [address] [place], [place] [phone] Tonya Brennan, OD [address] [place] [address] Health Maintenance Due Date Last Done Comments CT Colonography 1950 FIT DNA/Cologuard 1950 FIT 1950 FOBT 1950 Sigmoidoscopy 1950 Diabetes: Foot Exam 11/14/1961 Alcohol/Substance Use Screening 1962 Hepatitis A Vaccines (1 of 2 - [...] Completed 08/18/2024, , 03/10/2022, Additional history exists Hepatitis C Screening Completed 09/30/2024 HIB Vaccines Aged Out No longer eligi [...] Procedure Name Priority Date/Time Associated Diagnosis Comments ZEINAB SCREEN, IFA, W/REFL TITER AND PATTERN Routine 09/30/2024 8:24 AM EDT MONONUCLEOSIS TEST, QUALITATIVE Routine 09/30/2024 8:24 AM EDT HIV 1/2 ANTIGEN/ANTIBODY, FOURTH GENERATION W/RFL Routine 09/30/2024 8:24 AM EDT HEPATITIS PANEL, GENERAL Routine 09/30/2024 8:24 AM EDT LIPASE Routine 09/30/2024 8:24 AM EDT AMYLASE Routine 09/30/2024 8:24 AM EDT LD Routine 09/30/2024 8:24 AM EDT HEPATIC FUNCTION PANEL Routine 8:24 AM EDT COMPREHENSIVE METABOLIC PANEL Routine 09/30/2024 8:24 AM EDT ACETAMINOPHEN LEVEL Routine 09/30/2024 8 :24 AM EDT HELICOBACTER PYLORI AG, EIA, STOOL Routine 09/19/2024 [...] Recently Relevant to Health Maintenance Results * Hepatitis Panel, General (09/30/2024 8:24 AM EDT) Hepatitis A IgM Nonreactive Nonreactive [facility] Comment:IgM antibodies to LAZCANO V not detected; does not exclude earlyacute or recovered HAV infection. ~Hepatitis B Surface Antibody NONREACTIVE Nonreactive [facility] Comment:Nonreactive: < 8.00 mIU/mL Hepatitis B Core Antibody Nonreactive Nonreactive [facility] Hepatitis C Antibody Nonreactive Nonreactive [facility] Comment:Antibodies to HCV no t detected; does not exclude early acuteHCV infection. Hepatitis B Surface Ag Negative Negative [facility] 09/30/2024 8:24 AM EDT 09/30/2024 8:24 AM EDT Generic External Data Provider LAB BLOOD ORDERAB LES Final Result Performing Organization Address [facility]/ZIP Co de Phone Number [facility] [address] [place] [phone] * Mononucleosis Test, Qualitative (09/30/2024 8:24 AM EDT) Monotest Negative Negative [facility] 09/30/2024 8:24 AM EDT 09/30/2024 8:24 AM EDT Generic External Data Provider LAB BLOOD ORDERAB LES Final Result Performing Organization Address [facility] Co de Phone Number [facility] [address] [place] [phone] * HIV-1/2 Antigen and Antibodies, Fourth Generation, with Reflexes (09/30/2024 8:24 AM EDT) HIV AB/AG Nonreactive Nonreactive [facility] Comment:HIV-1 p24 Ag and/or HIV-1/HIV-2 Ab not detected.A test result that is nonreactive does not exclude thepossibility of exposure to or infection with HIV-1 and/orHIV-2. Nonreactive results in this assay for individualswith prior exposure to HIV-1 and/or HIV-2 may be due toantigen and antibody levels that are below the limit ofdetection of this assay.The [employer] HIV Ag/Ab Combo assay result andsupplemental assay results should be interpreted inconjunction with the patient's clinical presentation,history and other laboratory results. If the results areinconsistent with clinical evidence, additional testing issuggested to confirm the result. 09/30/2024 8:24 AM EDT 09/30/2024 8:24 AM EDT us Generic External Data Provider LAB BLOOD ORDERAB LES Final Result [facility] [address] [place] [phone] * (ABNORMAL) ZEINAB Screen,IFA, with Reflex to Titer and Pattern (09/30/2024 8:24 AM EDT) Anti Nuclear Antibody Screen POSITIVE (A) NEGATIVE [facility] Comment:ZEINAB IFA is a first l ine screen for detecting thepresence of up to approximately 150 autoantibodies invarious autoimmune diseases. A positive ZEINAB IFA resultis suggestive of autoimmune disease and reflexes totiter and pattern. Further laboratory testing may beconsidered if clinically indicated.For additional information, please refer tohttp://education.PerBlue/faq/HEH678(This link is being provided for informational/educational purposes only.) ZEINAB Titer 1:80(A) titer [facility] Comment:A low level ZEINAB tite r may be present in pre-clinicalautoimmune diseases and normal individuals. Reference Range <1:40 Negative 1:40-1:80 Low Antibody Level >1:80 Elevated Antibody Level ZEINAB Pattern Nuclear, Speckled (A) [facility] Comment:Speckled pattern is associated with mixed connectivetissue disease (MCTD), systemic lupus erythematosus(SLE), Sjogren's syndrome, dermatomyositis, andsystemic sclerosis/polymyositis overlap.AC-2,4,5,29: SpeckledInternational Consensus on ZEINAB Patterns(https://doi.org/10.1515/khac-1765-7858) ZEINAB TITER 2 (REF LAB) 1:40(A) titer [facility] Comment:A low level ZEINAB tite r may be present in pre-clinicalautoimmune diseases and normal individuals. Reference Range <1:40 Negative 1:40-1:80 Low Antibody Level >1:80 Elevated Antibody Level ZEINAB Pattern 2 (A) [facility] Comment:Cytoplasmic, Fine Sp eckled Abnormal Flag: AScattered small speckles in the cytoplasm mostly withhomogeneous or dense fine speckled background (e.g.,anti-Nicole-1). Pattern is associated with anti-synthetasesyndrome, polymyositis/dermatomyositis, limited systemicsclerosis, and idiopathic pleural effusion.AC-20: Fine SpeckledInternational Consensus on ZEINAB Patterns(https://doi.org/10.1515/aave-9388-4696)THIS TEST WAS PERFORMED AT:[facility] [place] [phone] HO MD ZEINAB TITER 3 TNP [facility] ZEINAB PATTERN 3 TNP [facility] 09/30/2024 8:24 AM EDT 09/30/2024 8:24 AM EDT us Generic External Data Provider LAB BLOOD ORDERAB LES Final Result Performing Organization Address [facility] Co de Phone Number [facility] [address] [place] [phone] * Lipase (09/30/2024 8:24 AM EDT) Lipase 18 8 - 78 U/L [facility] 09/30/2024 8:24 AM EDT 09/30/2024 8:24 AM EDT us Generic External Data Provider LAB BLOOD ORDERAB LES Final Result Performing Organization Address [facility] Co de Phone Number [facility] [address] [place] [phone] * (ABNORMAL) Lactate Dehydrogenase (LD) (09/30/2024 8:24 AM EDT) Lactate Dehydrogenase 527(H) 122 - 220 U/L [facility] Comment:Slight Hemolysis.Int erpret result with caution. 09/30/2024 8:24 AM EDT 09/30/2024 8:24 AM EDT us Generic External Data Provider LAB BLOOD ORDERAB LES Final Result Performing Organization Address [facility] Co de Phone Number [facility] [address] [place] [phone] * Amylase (09/30/2024 8:24 AM EDT) Amylase 61 28 - 100 U/L [facility] 09/30/2024 8:24 AM EDT 09/30/2024 8:24 AM EDT Generic External Data Provider LAB BLOOD ORDERAB LES Final Result Performing Organization Address [facility] Co de Phone Number [facility] [address] [place] [phone] * Acetaminophen level (09/30/2024 8:24 AM EDT) Acetaminophen LAB <3 <30 mcg/mL [facility] 09/30/2024 8:24 AM EDT 09/30/2024 8:24 AM EDT Generic External Data Provider LAB BLOOD ORDERAB LES Final Result Performing Organization Address [facility] de Phone Number [facility] [address] [place] [address] [phone] * Hepatic Function Panel (09/30/2024 8:24 AM EDT) Bilirubin, Direct 0.2 0.0 - 0.5 mg/dL [facility] 09/30/2024 8:24 AM EDT 09/30/2024 8:24 AM EDT us Generic External Data Provider LAB BLOOD ORDERAB LES Final Result [facility] [address] [place], [place] [phone] * (ABNORMAL) Comprehensive Metabolic Panel (09/30/2024 8:24 AM EDT) Sodium 139 135 - 145 mmol/L [facility] Potassium 4.5 3.3 - 5.1 mmol/L [facility] Comment:Slight Hemolysis.Int erpret result with caution. Chloride 109(H) 96 - 108 mmol/L [facility] Carbon Dioxide 22 22 - 29 mmol/L [facility] Anion Gap 13 12 - 20 [facility] Urea Nitrogen (BUN) 14 9 - 16 mg/dL [facility] Creatinine, Serum 0.76 0.5 - 1.4 mg/dL [facility] Estimated Glomerular Filt Rate >60 [facility] Comment:Chronic Kidney Disea se: Estimated GFR < 60 mL/min/1.70p1Icyqxh Kidney Disease: Estimated GFR < 15 mL/min/1.73m2 Glucose 126(H) 60 - 115 mg/dL [facility] Calcium 8.5 8.4 - 10.2 mg/dL [facility] Bilirubin, Total 0.5 0.0 - 1.0 mg/dL [facility] Aspartate Amino Transferase 403(H) 5 - 31 U/L [facility] Comment:Slight Hemolysis.Int erpret result with caution. Alanine Aminotransferase 368(H) 0 - 31 U/L [facility] Total Protein 6.7 6.5 - 8.0 g/dL [facility] Albumin Level 3.7 3.5 - 5.0 g/dL [facility] Alkaline Phosphatase 104 39 - 117 U/L [facility] 09/30/2024 8:24 AM EDT 09/30/2024 8:24 AM EDT us Generic External Data Provider LAB BLOOD ORDERAB LES Final Result Performing Organization Address [facility] Co de Phone Number [facility] [address] [place] [address] [phone] * Helicobacter pylori??Antigen, EIA, Stool (09/19/2024 7:30 AM EDT) H pylori Ag Stool SEE NOTE [facility] Comment:HELICOBACTER PYLORI AG, EIA, STOOL Micro Number: [id number] Test Status: Final Specimen Source: Stool Specimen Quality: Adequate H.pylori Ag: Not Detected Antimicrobials, proton pump inhibitors, and bismuth preparations inhibit H. pylori and ingestion up to two weeks prior to testing may cause false negative results. If clinically indicated the test should be repeated on a new specimen obtained two weeks after discontinuing treatment. Reference Range: Not DetectedTHIS TEST WAS PERFORMED AT:[facility] [place] [phone] HO MD Stool Rectal contents / Unknown 09/19/2024 7:30 AM EDT 09/19/2024 1:23 PM EDT us Mary Rivera MD LAB BODY FLUIDS AND S TOOLS ORDERABLES Final Result Performing Organization Address [facility] Co de Phone Number [facility] [address] [place] [address] [phone] * (ABNORMAL) POCT HGB A1C (08/12/2024 10:46 AM EST) Hemoglobin A1C 6.2(A) 4.0 - 6.0 % QC Media Lot # [id number] Lot# Expiration Date Blood 08/12/2024 10:4 6 AM EST us Mary Rivera MD POINT OF CARE TEST EN TER/EDIT ORDERABLES Final Result * POCT Glucose (08/12/2024 10:45 AM EST) Glucose Blood, POC 155 60 - 200 mg/dL Comment:Vinny ALVAREZ QC Media Lot # [id number] Lot# Expiration Date [id number] Blood Capillary blood specimen / Unknown 08/12/2024 10:45 AM EST us Mary Rivera MD POINT OF CARE TEST EN TER/EDIT ORDERABLES Final Result * Hm Colonoscopy (02/16/2023) us Historical Provider HEALTH MAINTENANCE Final Result * BI Mammogram Screening Tomosynthesis Bilateral (01/08/2023 12:20 PM EDT) Anatomical Region Laterality Modality Breast Bilateral Mammography 01/08/2023 12:2 0 PM EDT Narrative 01/30/2023 10:10 AM EDT ? [facility] ? [address] ?[place] [address] ? Mammography Report ? Signed ? Patient: Shiva Wang,Hayley ?MR#: [id number] ?? [id number] ? : 1950 ?Acct:[id number] ? Age/Sex: 72 / F ?ADM Date: 01/08/ ? Loc: HO.MAMMO ? Attending Dr: Mary Rivera MD ? Ordering Physician: Mary Rod MD ?Results: ? Date of Service: 01/08/23 ?Follow Up: ? Procedure(s): MM tomosynthesis screening BI ?? Accession Number(s): [id number] ? cc: Mary Rod MD ? EXAMINATION: [...] signed by Chris Adames MD in OV> ?08/18/23 1007 ? DD/ 1220 ? TD/TT: ? Chopper Operator: ? Procedure Note Donotuseinterpreter, Image - 01/30/2023 [facility] [address] [place] [address] Mammography Report Signed Patient: Josselin MarcR#: [id number] : 2Acct:[id number] Age/Sex: 72 / FADM Date: 01/08/23 Loc: HO.MAMMO Attending Dr: Mary Rivera MD Ordering Physician: Mary Rod MDResults: Date of Service: 01/08/23Follow Up: Procedure(s): MM tomosynthesis screening BI Accession Number(s): [id number] cc: Mary Rod MD EXAMINATION: MM SCREENING [...] in OV> 01/30/23 1007 DD/ 1220 TD/TT: Chopper Operator: Mary Rivera MD IMG BI PROCEDURES Kar peter Result - Final * Lipid Panel, Standard (11/26/2022 8:01 AM EDT) Cholesterol, Total 116 <200 mg/dL [facility] HDL Cholesterol 63 > OR = 50 mg/dL [facility] Triglycerides 63 <150 mg/dL [facility] LDL Cholesterol 39 mg/dL (calc) [facility] Comment: Reference range: <100 Desirable range <100 mg/dL for primary prevention; ?? <70 mg/dL for patients with CHD or diabetic patients with > or = 2 CHD risk factors. LDL-C is now calculated using the Sofie calculation, which is a validated novel method providing better accuracy than the Friedewald equation in the estimation of LDL-C. Kirill SS et al. ALEXANDER. 2013;310(19): 8447-0346 (http://education.PerBlue/faq/PQH094) Chol/HDLC Ratio 1.8 <5.0 (calc) [facility] Non-HDL Cholesterol 53 <130 mg/dL (calc) [facility] Comment: For patients with diabetes plus 1 major ASCVD risk factor, treating to a non-HDL-C goal of <100 mg/dL (LDL-C of <70 mg/dL) is considered a therapeutic option. Blood Venous blood specimen / Unknown 11/26/2022 8:01 AM EDT 11/26/2022 8:01 AM EDT Narrative [facility] - 11/26/2022 10:02 PM EDT FASTING:YES FASTING: YES Mary Rivera MD LAB BLOOD ORDERABLES Final Result [facility] [address], [place] [address] [facility] [address] [place] [phone] from Last 3 Months or Most Recently Relevant to Health Maintenance Insurance [facility] [employer] (HMO D-SNP) REECE DUMAS [id number] Care Teams Senior Environmental Technician Relationship Specialty Start Date End Date Mary Rod MD [address] [place] [phone] PCP - General Family Medicine 02/07/22
== END 2024-10-12 10:46 | disposition home or self-care (01) ==
LOC: HO.HOS 09:39
PROVIDERS: PCP Internal Medicine
DX: G56.02 Carpal tunnel syndrome, left upper limb (principal); S52.615S Nondisplaced fracture of left ulna styloid process, sequela; S52.502A Unspecified fracture of the lower end of left radius, initial encounter for closed fracture
CPT/HCPCS: 99213

== ENCOUNTER → 2024-10-12 09:39 | Outpatient (BNVA) | payer OTHER, SELFPAY | PROVIDERS: PCP Internal Medicine | DX: G56.02 Carpal tunnel syndrome, left upper limb (principal); S52.502S Unspecified fracture of the lower end of left radius, sequela; S52.615S Nondisplaced fracture of left ulna styloid process, sequela; X58.XXXS Exposure to other specified factors, sequela | CPT/HCPCS: 99212 ==

== ENCOUNTER 2024-10-14 09:39 | Outpatient (AMB) | payer OTHER, SELFPAY ==
--- NOTE | 2024-10-14 09:42 | MHC.OFFVIS ---
Vital Signs 10/14/24 09:43 Height 5 ft Weight 138 lb 7.205 oz BMI 27.0 BP 98/64 Blood Pressure Location Lt brachial Position Sitting Pulse 73 Pulse Source Pulse Oximeter Pulse Oximetry (%) 100 Oxygen Delivery Method Room Air Intake Visit Reasons: 2 wks, Per September, Epi & wrist pain Intake Note: Patient follow up for 2 wks, Per September, Epi & wrist pain and chronic constipation. Visitor Services Associate Required: Yes Visitor Services Associate Language: Data Communications Analyst Name: Singh ([id number]) Allergies No Known Allergies [No Known Allergies*] Allergy (Verified 10/14/24 09:42) HPI HPI 2 wks, Per September, Epi & wrist pain: Details: Assessment & Plan (1) Numbness and tingling in left hand: Code(s): R20.0 - Anesthesia of skin; R20.2 - Paresthesia of skin Category: Medical (2) GERD (gastroesophageal reflux disease): Code(s): K21.9 - Gastro-esophageal reflux disease without esophagitis Category: Medical (3) Chronic idiopathic constipation: Code(s): K59.04 - Chronic idiopathic constipation Category: Medical (4) Dysphagia: Comment: . HE EGD 09/2019 Esophagus: Tortuous esophagus with increased tertiary contractions without stricture or ring. GE junction at 34 cms. No esophagitis or Carrasquillo s. Stomach: Maurice en Y gastric bypass status. Gastric remnant from 34 to 36 cms. Normal anastomosis without ulcers. Mild gastric erythema. Biopsies were obtained. BARIUM SWALLOW 09/2020 IMPRESSION: 1. No aspiration or laryngeal penetration. 2. See speech pathologist report for further assessment and recommendation. Code(s): R13.10 - Dysphagia, unspecified Category: Medical Plan NIGERIEN #Rachel LIve She says she is having burning in her stomach and nausea. She tells me she is hardly eating. With further conversation she is also not moving her bowels but she says she had a very bad fall in April and fractured her left arm falling on outstretched arm. This was followed by a cast and then emergency surgery. Since then she has had unrelenting pain in the left hand and weakness that causes her not to be able to close into a fist or hold anything. She is dropping objects quite a lot. She describes the pain as a stabbing pain in the hand feels like ?it wants to explode outside of itself. ? Strangely the pain seems to have some referred aspects into the ulnar aspect of her arm even though it was a distal radial fracture. She also has distal palmar pain. It is 8/10 at all times. She says that the pain is making her not sleep and causing a lot of her anxiety and lack of appetite. She is on top tramadol for the pain which is not helping nor do any of the [id number]-mrugevmf. I think she has got a multifactorial problem here affecting her GI stability. I verify that she is taking all of her medications including metoclopramide as directed. I think we need to address her pain and since opiates are not a good option (although oxycodone work well for her) I think I am going to try adding something for neuropathic pain and sleep. We will give her imipramine 10 mg at night titrate to affect her side effect. I will keep in mind that tramadol does have some anticholinergic and neuropathic crossover so will have to watch carefully if there is any interactions or it makes her sleepy. In the meantime I advised her to take 3 bisacodyl at night and continue with her Linzess in the morning to see if moving her bowels helps with her stomach issues. Despite the burning I am reluctant to give her sucralfate because of the constipation. She continues on pantoprazole bid, simethicone, LInzess, lactulose and bisacodyl. She also takes reglan qidachs. ROV 2 weeks to eval imipramine. ? EMG if not improving to see if ulnar entrapment. Medications: New imipramine HCl 10 mg PO BEDTIME 30 tabs 3RF 30 days R20.0 - Anesthesia of skin, R20.2 - Paresthesia of skin Refilled bisacodyl (Dulcolax (bisacodyl)) 15 mg (3 x 5 mg) PO BEDTIME 90 tabs 6RF 30 days K59.04 - Chronic idiopathic constipation dxqtku-zblgunoa-wyfsgzw 24,000-76,000 -120,000 unit (Creon) 24,000 caps PO BID 120 caps 6RF pantoprazole 40 mg PO BID 60 tabs 6RF K21.9 - Gastro-esophageal reflux disease without esophagitis, K28.9 - Gastrojejunal ulcer, unspecified as acute or chronic, without hemorrhage or perforation linaclotide (Linzess) 290 mcg PO QAM 30 caps 6RF K59.04 - Chronic idiopathic constipation lactulose 20 grams (30 mL) PO TID 3,000 mL 6RF K59.04 - Chronic idiopathic constipation metoclopramide HCl 10 mg PO QID 120 tabs 6RF K31.84 - Gastroparesis simethicone (Gas Relief (simethicone)) 180 mg PO QID 120 ea 2RF Laboratory Tests 09/29/24 09/30/24 10:59 08:24 Estimated GFR > 60 Ferritin 304 H Total Bilirubin 0.5 Direct Bilirubin 0.2 AST 403 H ALT 368 H Alkaline Phosphatase 104 Lactate Dehydrogenase 527 H Amylase 61 Lipase 18 ZEINAB Screen POSITIVE A Hepatitis A IgM Ab Nonreactive Hep Bs Antigen Negative Hep Bs Antibody NONREACTIVE Hep B Core Total Ab Nonreactive Hepatitis C Ab (EIA) Nonreactive Monoscreen Negative HIV 1&2 Ab/P24 Ag 4thGn Nonreactive TODAY'S VISIT NIGERIEN #[id number], Singh (HOLD: monteleukast, rosuvastatin, entresto, metoprolol, reglan, metformin, losaartan, if pain not resolving with the imipramine) She is moving her bowels better. Overall her GI sx are improved, I believe that she was out of some of her GI medications and this was the problem with the N/V and burning pain. She continues to complain of her left hand pain and insomnia driven by this. This is status post distal ulnar fracture. I will increase the imipramine to 2 tabs qhs as she has tolerated it well. She is c/o dysuria and will get a UA. I noticed in passing that this has been a dramatic escalation of her transaminases, and this will bear further exploring. She has not gained a lot of weight so question whether this may be drug induced but we also need to screen for possible autoimmune escalation given a positive ZEINAB. We will have to address this at the next visit. She has no signs or symptoms reported of liver disease. ROV 4 weeks. [facility] Medical History (Reviewed 10/14/24 @ 09:47 by Josselin Jaime [facility]) Left hip pain Sacroiliac joint pain Elevated liver enzymes Right knee pain Left lumbar radiculitis Lumbago with sciatica Sepsis Right anterior knee pain Nausea and vomiting Candidiasis of mouth and esophagus Dysuria Medication monitoring encounter Abnormal findings on diagnostic imaging of musculoskeletal system Myocardial infarction Asthma ANGIE (obstructive sleep apnea) Diabetes Esophageal dysmotilities Esophageal candidiasis Pneumonia Cystitis Recurrent UTI (urinary tract infection) Vitamin D deficiency Hypothyroidism Osteoporosis B12 deficiency Iron deficiency anemia IBS (irritable bowel syndrome) Surgical History H/O heart surgery Hx of gastric bypass History of esophagogastroduodenoscopy (EGD) Hx of colonoscopy History of arthroscopy of left shoulder Family History Father No problems noted. 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 Patient Tobacco Use Status: Never used Tobacco service: No Current occupational status: disabled Review of Systems Const Reports difficulty sleeping, Denies fatigue, Denies fever(s), Denies night sweats, Denies poor appetite and Denies weight loss ENT Reports Normal hearing present, Denies dental pain, Denies dysphagia, Denies hearing loss, Denies mouth pain, Denies odynophagia, Denies throat swelling, Denies tongue swelling and Reports other (Dentition adequate) Card Reports no additional complaints Resp Reports no additional complaints GI Details: Denies abdominal pain, Denies melena, Denies bloating, Denies hematochezia, Denies constipation, Reports GI cramping, Denies dysphagia, Denies excessive flatus, Reports early satiety, Reports heartburn, Denies diarrhea, Denies nausea, Denies odynophagia, Denies vomiting and Denies hematemesis Reports urinary hesitancy Musc Reports deformity, Reports arthralgias, Reports muscle weakness and Reports tingling Skin/Breast Denies pruritus, Denies lesions, Denies rash and Denies jaundice Neuro Reports Normal hearing present, Denies Abnormal speech present and Reports tingling Endo Denies fatigue Aller/Immun Denies throat swelling and Denies tongue swelling Physical Exam Vital Signs: Last Vital Signs Pulse 73 10/14/24 09:43 BP 98/64 10/14/24 09:43 Pulse Ox 100 10/14/24 09:43 Oxygen Delivery Method Room Air 10/14/24 09:43 BMI result Body Mass Index 27.0 Const General: cooperative, no acute distress, well developed and well groomed Nutritional Appearance: average body habitus and well nourished Orientation/consciousness: oriented to person, oriented to place and oriented to time Limitations: language barrier and other limitations HEENT Head: Yes normocephalic and Yes atraumatic Eyes General: appearance normal, both eyes and all related structures Pupils: Equal, round and reactive pupils present Neck Neck: Yes normal visual inspection and Yes no lymphadenopathy Thyroid: Thyroid normal Resp Effort & Inspection: normal respiratory effort and able to speak in complete sentences Auscultation: clear to auscultation bilaterally Cardio Rate: regular rate Rhythm: regular rhythm Heart sounds: Normal, physiologic split S2 sound present Peripheral pulses: radial pulses present and posterior tibial pulses present GI Inspection: No distended, No Abdominal panniculus present and Yes obesity Palpation (GI): Soft to palpation, nontender, no guarding, not rigid and No hepatosplenomegaly present Percussion: Yes normal to percussion Auscultation: normal bowel sounds Rectal Exam - Female: deferred Skin General skin exam: no rashes or lesions noted, turgor normal, skin not dry, no jaundice, No spider nevi and no striae Rashes: no rashes Nails: normal Neuro General: oriented to person, oriented to place and oriented to time Cranial nerves: Yes Equal, round and reactive pupils present and Yes Normal hearing present Speech: No Abnormal speech present Extrem Other: Glove on left hand General: No clubbing, No cyanosis and No edema Psych Appearance: grossly normal and well kempt Mental Status: mental status grossly normal Speech and movement: Normal speech and movement present Affect: normal affect Attitude: cooperative Thought process: not confabulating and Impoverished thought process present Thought content: Normal thought content present Insight: Limited insight present (Psych) Judgement: Limited judgement present (Psych) Assessment & Plan Assessment & Plan (1) GERD (gastroesophageal reflux disease): Code(s): K21.9 - Gastro-esophageal reflux disease without esophagitis Category: Medical (2) Chronic idiopathic constipation: Code(s): K59.04 - Chronic idiopathic constipation Category: Medical (3) Dysuria: Comment: There is concern over recurrent persistent UTI She has no urinary obstruction seen She has appointment with Urology Code(s): R30.0 - Dysuria Category: Medical (4) Numbness and tingling in left hand: Code(s): R20.0 - Anesthesia of skin; R20.2 - Paresthesia of skin Category: Medical (5) VAZQUEZ (nonalcoholic steatohepatitis): Comment: HER liver enzymes are not terribly deranged this can be monitored by her primary care provider at 6 month intervals and she can be return to our service for surveillance if the transaminases become greater than twice the upper limit of normal BASELINE LABS 03/13/22 Plt Count 258 Estimated GFR > 60 Ferritin 43 Total Bilirubin 0.8 AST 179 H ALT 108 H Alkaline Phosphatase 106 D 04/16/22 Plt Count 267 Hemoglobin A1c % 6.2 Ferritin 21 Total Bilirubin 0.5 GGT 149 H AST 71 H ALT 58 H Anti-Mitochondrial Ab NEGATIVE Anti-Smooth Muscle Ab <20 Hepatitis A IgM Ab Nonreactive Hep Bs Antigen Negative Hep Bs Antibody NONREACTIVE Hep B Core Total Ab Nonreactive Hepatitis C Ab (EIA) Nonreactive HIV 1&2 Ab/P24 Ag 4thGn Nonreactive She does not drink ETOH ULTRASOUND THE ABDOMEN WITH ELASTOGRAPHY (F0-F1) Laboratory Tests 09/30/2503/18/25 10:5908:24 Estimated GFR > 60 Ferritin 304 H Total Bilirubin 0.5 Direct Bilirubin 0.2 AST 403 H ALT 368 H Alkaline Phosphatase 104 Lactate Dehydrogenase 527 H Amylase 61 Lipase 18 ZEINAB Screen POSITIVE A Hepatitis A IgM Ab Nonreactive Hep Bs Antigen Negative Hep Bs Antibody NONREACTIVE Hep B Core Total Ab Nonreactive Hepatitis C Ab (EIA) Nonreactive Monoscreen Negative HIV 1&2 Ab/P24 Ag 4thGn Nonreactive ULTRASOUND OF THE ABDOMEN 02/19/23 IMPRESSION: 1. There is generalized increase in hepatic echotexture, consistent with fatty infiltration or hepatocellular disease. Please correlate clinically. No focal hepatic mass or intrahepatic biliary dilatation is seen. 2. The gallbladder is surgically absent. 3. Technically limited ultrasound examination of the pancreas and abdominal great vessels. Code(s): K75.81 - Nonalcoholic steatohepatitis (VAZQUEZ) Category: Medical Plan NIGERIEN #[id number], Singh (HOLD: monteleukast, rosuvastatin, entresto, metoprolol, reglan, metformin, losaartan, if pain not resolving with the imipramine) She is moving her bowels better. Overall her GI sx are improved, I believe that she was out of some of her GI medications and this was the problem with the N/V and burning pain. She continues to complain of her left hand pain and insomnia driven by this. This is status post distal ulnar fracture. I will increase the imipramine to 2 tabs qhs as she has tolerated it well. She is c/o dysuria and will get a UA. I noticed in passing that this has been a dramatic escalation of her transaminases, and this will bear further exploring. She has not gained a lot of weight so question whether this may be drug induced but we also need to screen for possible autoimmune escalation given a positive ZEINAB. We will have to address this at the next visit. She has no signs or symptoms reported of liver disease. ROV 4 weeks. Orders: Orders UA CC w/rflx Micro + Cult Today R20.0 - Anesthesia of skin, R20.2 - Paresthesia of skin, R30.0 - Dysuria Medications: Changed From imipramine HCl 10 mg PO BEDTIME 30 days 30 tabs 3RF R20.0 - Anesthesia of skin, R20.2 - Paresthesia of skin To imipramine HCl 20 mg (2 x 10 mg) PO BEDTIME 30 days 60 tabs 3RF R20.0 - Anesthesia of skin, R20.2 - Paresthesia of skin Coding Level of Care Code Est Pt Level 3 (60694) Diagnoses GERD (gastroesophageal reflux disease) K21.9 Chronic idiopathic constipation K59.04 Dysuria R30.0 Numbness and tingling in left hand R20.0; R20.2 VAZQUEZ (nonalcoholic steatohepatitis) K75.81
[2024-10-14 09:43] VITALS: BP 98/64; PULSE 73; O2SAT 100; BMI 27.0
--- OUTSIDE RECORDS SUMMARY | 2024-10-14 10:27 | XMS_ITS | Encounter Summary ---
Author Organization [employer] Address [address] [facility] [address] [place] [address] Care Team Providers Care Discovery Guide Name Role Phone Mary Rod MD Primary Care Provide r Encounter Details Date Type Department Care Team (Late st Contact Info) Description 03/24/2023 Abstract [facility] MEDICINE [address] [place] [address] Tonia Cardoza Social History Tobacco Use Types [...] Description 11/10/2024 10:30 AM EDT Office Visit [facility] OPTOMETRY [address] [place], [place] [phone] Tarka, Tonya, OD [address] [place] [address] documented as of this encounter Goals Goal [...] documented as of this encounter Care Teams Discovery Guide Relationship Specialty Start Date End Date Mary Rod MD [address] [place] [address] PCP - General Family Medicine 02/07/22 documented as of this encounter
--- OUTSIDE RECORDS SUMMARY | 2024-10-14 10:27 | XMS_ITS | Encounter Summary ---
Author Organization [employer] Address [address] [facility] [address] [place] [address] Care Team Providers Care Insurance Verification Clerk Name Role Phone Mary Rod MD Primary Care Provide r Encounter Details Date Type Department Care Team (Late Contact Info) Description 11/12/2022 [facility] Health Information Management [address] [place] [address] Mary Rod MD [address] [place] [address] Social History Tobacco Use Types Packs/Day Years [...] Description 11/10/2024 10:30 AM EDT Office Visit [facility] OPTOMETRY [address] [place] [address] Tonya Brennan, OD [address] [place] [address] documented as of this encounter Goals Goal [...] documented as of this encounter Care Teams Insurance Verification Clerk Relationship Specialty Start Date End Date Mary Rod MD [address] [place] [id number] PCP - General Family Medicine 02/07/22 documented as of this encounter
--- OUTSIDE RECORDS SUMMARY | 2024-10-14 10:27 | XMS_ITS | Encounter Summary ---
Author Organization [employer] Address [address] [facility] [address] [place] [address] Care Team Providers Care Energy Conservation Specialist Name Role Phone Mary Rod MD Primary Care Provide r Reason for Visit * Reason Comments Med Refill Encounter Details Date Type Department Care Team (Late st Contact Info) Description 10/11/2024 Refill [facility] MEDICINE [address] [place] [address] Mary Rod MD [address] [place] [address] Social History Tobacco Use Types Packs/Day Years [...] Description 11/10/2024 10:30 AM EDT Office Visit [facility] OPTOMETRY [address] [place] [address] TarkaTonya, OD [address] [place] [address] documented as of this encounter Goals Goal [...] documented as of this encounter Care Teams Energy Conservation Specialist Relationship Specialty Start Date End Date Mary Rod MD [address] [place] [address] PCP - General Family Medicine 02/07/22 documented as of this encounter
--- OUTSIDE RECORDS SUMMARY | 2024-10-14 10:27 | XMS_ITS | Encounter Summary ---
Author Organization [employer] Address [address] [facility] [address] [place] [address] Care Team Providers Care Manager Enrollment Name Role Phone Mary Rod MD Primary Care Provide r Encounter Details Date Type Department Care Team ([facility] st Contact Info) Description 03/25/2023 Orders Only [facility] MEDICINE [address] [place] [address] ProviderLinsey MD Social History Tobacco Use Types [...] Description 11/10/2024 10:30 AM EDT Office Visit [facility] OPTOMETRY [address] [place], [place] [phone] Tarka, Tonya, OD [address] [place] [address] documented as of this encounter Goals Goal [...] documented as of this encounter Care Teams Manager Enrollment Relationship Specialty Start Date End Date Mary Rod MD [address] [place] [address] PCP - General Family Medicine 02/07/22 documented as of this encounter
--- OUTSIDE RECORDS SUMMARY | 2024-10-14 10:27 | XMS_ITS | Encounter Summary ---
Author Organization [employer] Address [address] [facility] [address] [place] [address] Care Team Providers Care Supervisor Soldering Name Role Phone Mary Rod MD Primary Care Provide r Reason for Visit * Reason Comments Med Refill Encounter Details Date Type Department Care Team (Late st Contact Info) Description 10/11/2024 Refill [facility] PEDS [address] [place], [place] [phone] [facility] [address] [place] [address] Social History Tobacco Use Types Packs/Day Years [...] 10:30 AM EDT Office Visit [facility] OPTOMETRY [address] [place] [address] TarkaTonya, OD [address] [place] [address] documented as of this encounter Goals Goal [...] documented as of this encounter Care Teams Supervisor Soldering Relationship Specialty Start Date End Date Mary Rod MD [address] [place] [address] PCP - General Family Medicine 02/07/22 documented as of this encounter
--- OUTSIDE RECORDS SUMMARY | 2024-10-14 10:27 | XMS_ITS | Encounter Summary ---
Author Organization [employer] Address [address] [facility] [address] [place] [address] Care Team Providers Care Pet Stylist Name Role Phone Mary Rod MD Primary Care Provide r Reason for Visit * Reason Onset Date Comments Med Refill 10/12/2024 Encounter Details Date Type Department Care Team ([facility] st Contact Info) Description 10/12/2024 Telephone [facility] MEDICINE [address] [place] [address] Mary Rod MD [address] [place] [address] Med Refill Social History Tobacco Use Types [...] Nassar LPN - 10/12/2024 8:36 AM EDT APPLICATIONS INTERN checked on 10/12/24 Ambien last filled on 08/04/24 by Mariaelena Yan. * Telephone Encounter - Michael Fabian - 10/12/2024 8:30 AM EDT TC from pt requesting medication refill. Medications needing refill : zolpidem (Ambien) 10 MG tablet To be sent to: [facility] - [place], [place] - [address] [facility] documented in this encounter Plan of Treatment Upcoming Encounters Date Type Department Care Team (Late st Contact Info) Description 11/10/2024 10:30 AM EDT Office Visit [facility] OPTOMETRY [address] [place] [address] Tonya Brennan, OD [address] [place] [address] documented as of this encounter Goals Goal [...] documented as of this encounter Care Teams Pet Stylist Relationship Specialty Start Date End Date Mary Rod MD [address] [place] [address] PCP - General Family Medicine 02/07/22 documented as of this encounter
--- OUTSIDE RECORDS SUMMARY | 2024-10-14 10:28 | XMS_ITS | Clinical Summary ---
Author Organization [facility] Facility Address [address] [address] Care Team Providers Care It Systems Engineer Name Role Phone Natalee Rooney MD Primary Care Provider [phone] Allergies Active Allergy Reactions Criticality Noted Date [...] Visit [facility] [address] [place] [address] Rober Acharya MD [address] [facility] [address] [place] [address] Health Maintenance Due Date Last Done Comments [...] patient's age to complete this topic Insurance [facility] ([id number]) [facility] ([id number]) Care Teams It Systems Engineer Relationship Specialty Start Date End Date Natalee Rooney MD PCP - General Family Medicine 02/05/21
--- OUTSIDE RECORDS SUMMARY | 2024-10-14 10:28 | XMS_ITS | Data Portability ---
Author Organization [employer] [employer] Address [address] [place] [address] Care Team Providers [facility] [employer] Team Member Name Role Phone HIM [facility] OTHER [facility] Referring Provider Assessment Encounter Date Assessment [...] Assessment and Plan as documented by the Security Assessor. We discussed the diagnostic uncertainty of home [...] )to call 911- verbalized understanding of instruction [email or web address] Not available 06/06/2024 22:29:59 Plan of Treatment Reminders Order Date Submit Date Provider Last Modified By Organization Details Last Modified Time Details Appointments None recorded. Lab rapid flu (A+B) 2023 024 [email or web address] [facility], [address] [place] [address], [id number] 4 12:27:12 rapid SARS CoV 2 Ag, QL IA, respiratory specimen 2023 024 [email or web address] 0 [facility] - [facility], [address] [place] [address], [id number] 4 12:27:12 rapid strep group A, throat 2023 024 [email or web address] 0 [facility] - [facility], [address] [place] [address], [id number] 4 12:27:12 BMP, serum or plasma 2023 024 [email or web address] 0 [facility], [address] [place] [address], [id number] 4 12:27:12 Referral None recorded. Procedures None recorded. Surgeries None recorded. Imaging None recorded. Medication Orders albuterol sulfate 2.5 mg/3 mL (0.083 %) solution for nebulizatio n 2023 [email or web address] 0 Not available 12:27:12 azithromyci n 250 mg tablet 2023 [email or web address] 0 Not available 12:27:12 azithromyci n 250 mg tablet 2023 [facility], [address] [place] [address], [id number], 10:06:34 potassium chloride ER 20 mEq tablet,exte nded release 2023 [email or web address] 0 Not available 4 12:27:12 prednisone 20 mg tablet 2023 [email or web address] 0 Not available 4 12:27:12 prednisone 20 mg tablet 2023 [facility], [address] [place] [address], [id number], 4 10:06:35 Mucinex DM 30 mg-600 mg tablet,exte nded release 12 hr 2023 [facility], [address] [place] [address], [id number], 5 11:34:59 Patient TargetsNo targets recorded. Patient InstructionsNo instructions recorded. Reason for Referral None Reported. Results Created Date Observation Date Name Description Value Unit Range Abnormal Flag Note LastModifiedBy Organization Detail LastModifiedTime 06/06/20 24 06/06/2024 rapid strep group A, throa t Strep negati ve Not Available [facility] - [facility] ed [address] [place] [address], [id number] 06/06/2024 11:26:51 06/06/20 24 06/06/2024 rapid SARS CoV 2 Ag, QL IA, respi rator y speci men rapid SARS CoV 2 Ag, QL IA, respiratory specimen negati ve Not Available [facility] - [facility] ed [address] [place] [address], [id number] 06/06/2024 11:26:50 06/06/20 24 06/06/2024 rapid flu (A+B) Flu negati ve Not Available [facility] - [facility] ed [address] [place] [address], [id number] 06/06/2024 11:26:49 Result Notes None recorded. Medical [...] Address Organization Details Last Updated DateTime 4 10929.0 4 g 16 /min 98 [degF] 152.4 [...] Updated DateTime 06/06/2024 152.4 cm Suzy Caldera [address] [place] [address],[address], [place], [phone], [facility] [employer] 06/06/2024 12:10:31 Social History None recorded. Functional Status None recorded. Mental Status None recorded. Family History Nothing Reported. Medical History No medical history recorded. Gynecological HistoryNo gynecological history recorded. Obstetrics History GPAL:G 0 P 0 0 0 0 Past Encounters Encounter ID Performer Location Encounter Start Date Encounter Closed Date Diagnosis/Indication Diagnosis SNOMED-CT Code Diagnosis ICD10 Code Diagnosis Note [id number] Katelyn Rodriguez MD [facility] [address] [place] [phone] 12/14/2023 11:35:06 12/14/2023 18:48:14 Headache 58273274 R51.9 [id number] [facility]endleton [facility] [address] [place] [phone] 06/06/2024 11:21:26 06/06/2024 23:50:20 Upper respiratory infection 88728898 J06.9 w/ exacerbati on of asthma- improved after neb lungs cta but increased cough Will cover with azithromyc in and steroids/v ia Albanian language line interprete r made patient aware [...] Member ID Guarantor Name 12/14/2023 1 [facility] - DOS ON OR AFTER 2022 - DUAL ELIGIBLE - CUSTODIAL OPTIONS AND ONE CARE (MEDICARE REPLACEMENT/ADV ANTAGE - HMO) Hayley Shannon [id number] Hayleyanthony Shannon 06/06/2024 1 [facility] - DOS ON OR AFTER 2022 - DUAL ELIGIBLE - CUSTODIAL OPTIONS AND ONE CARE (MEDICARE REPLACEMENT/ADV ANTAGE - HMO) Hayleyanthony Shannon [id number] [facility] Marian Shannon Notes Date Note [...] injury. [facility]. [facility]. Confirmed allergies and that no pets in home. Reviewed home care advise, ER precautions and reasons to call back. ................... ................... ................... ................... ................... ................... ................... ........ [facility] Nurse Triage Notes (Rachael Lo): Comments: HPI reviewed. No further information needed to process visit. Security Assessor POC Test Results from Gerardo Lazar - ALS iSTAT Chem8+ (13:24:48) Na: 142 mEq/L K: 5.0 mEq/L Cl: 110 mEq/L iCa: 1.21 mmol/L TCO2: 22 mmol/L Glu: 86 mg/dL BUN: 11 mg/dL Crea: 0.9 mg/dL Hct: 39 % Hb: 13.3 g/dL A ................... ................... ................... ................... ................... ................... ................... ........ Security Assessor Note From Gerardo Lazar: [employer] visit for female patient. Pt presents conscious and alert. Pt Albanian speaking only so interpreter translator services were used. Pt reports 4 days [...] little bit low. Pt afebrile. Consulted with [facility] Dr. Rodriguez who advised blood drawn BMP and IV fluids. IV placed and BMP drawn and uploaded to [facility]. Dr. Rodriguez ordered 500 cc of normal saline in addition to 1 gram of IV magnesium, both given on scene. Reviewed red flags for ED and PT education provided. ................... ................... ................... ................... ................... ................... ................... ........ Disposition: Fulfilled Katelyn Rodriguez MD [address] [facility],[address], [place], [address], [employer] [facility] [employer] 12/14/2023 15:10:31 06/06/2024 text/html HPI: Call returned [...] 2, Coronary Artery Disease Comments: HPI reviewed Security Assessor Organization Information for [employer] [facility] [employer] Legal Name: [employer] Address: [address] [place], [place] [address], [place] [address], Roll Operator: Mj Krause MD CLIA No.: [id number] Security Assessor POC Test Results from [facility] [facility] - [...] ................... ................... ................... ................... ................... ................... ........ Security Assessor Note From [facility]: [facility] makes pt contact a 73 yo FF CC of cough/cold like [facility] obtains vital signs, [facility] uses interpreter translator services due to language barrier. PT explains she has been sick for 9 days including a fever, cough, congestion, productive phlegm consisting of dark green, pt has a hx of asthma, pt has a metal plate in chest from a resuscitation 4 months ago. PT is complaining of chest pain from the cough and not being able to sleep. [facility] tests for flu and covid, negative, tests for strep negative. PT has no allergies, a medication list is provided to [facility] contacts [facility], [facility] requests an istat which is obtained via butterfly in the left AC and bandaged appropriately, and uploaded. [facility] advises pt has bronchitis. [facility] orders 500mg of azithromycin, 40mg of prednisone, 40meq of potassium which is given po. [facility] also orders a nebulized albuterol treatment, PT reports minor relief from albuterol although pts lungs on reassessment are free of any wheezes. PT is also prescribed antibiotics which she is instructed to began taking tomorrow. [facility] explains red flags such as severe chest pain, severe sob, uncontrolled fever she should call us back or go to the hospital. [facility] also explains pt should stay hydrated and use the prescribed cough syrup to try and loosen up the pehlgm and also reduce her coughing. PT understands. [facility] clears ................... ................... ................... ................... ................... ................... ................... ........ [facility] Consulted: Leilani Pendleton ................... ................... ................... ................... ................... ................... ................... ........ Disposition: Fulfilled Leilani Pendleton MD [address] [facility],[address], [place], [address], [place] [employer] 06/06/2024 22:30:16 OBGyn Episode No OBEpisode recorded.
--- OUTSIDE RECORDS SUMMARY | 2024-10-14 10:28 | XMS_ITS | Clinical Summary ---
Author Organization [employer] Address [address] [facility] [address] [place] [address] Care Team Providers Care [employer] Name Role Phone Mary Rod MD Primary [...] up to 25 doses. 40 tablet Active ipratropium-albu terol (Duo-Neb) 0.5-2.5 mg/3 mL [...] tablet by mouth 2 times daily. Active albuterol (Ventolin HFA) 108 (90 Base) [...] by mouth Once per day. Active pancrelipase, Pmv-Wkqh-Ugwx, (Creon) 10355-09830 units capsuleIndicatio ns:Pancreatic insufficiency TAKE 1 CAPSULE BY MOUTH FOUR TIMES DAILY WITH FOOD AND 1 CAPSULE WITH SNACKS DO NOT BREAK, CRUSH, DISSOLVE OR CHEW 120 capsule 3 Active Nyamyc 990997 UNIT/GM powderIndication s:Intertrigo APPLY TOPICALLY TO AFFECTED [...] 2 025 Active gabapentin (Neurontin) 600 MG tabletIndication s:Spinal stenosis of lumbar region, unspecified whether neurogenic claudication present TAKE 1 TABLET BY MOUTH THREE TIMES DAILY IN THE MORNING, AT NOON, AND AT BEDTIME 90 tablet 2 025 Active topiramate (Topamax) 25 MG tablet TAKE 1 TABLET BY MOUTH EVERY EVENING 30 tablet Active sucralfate (Carafate) 1 g tabletIndication s:Epigastric pain TAKE 1 TABLET BY MOUTH FOUR TIMES DAILY BEFORE MEALS AND AT BEDTIME 120 tablet 025 Active levothyroxine (Synthroid, Levoxyl) 125 MCG tabletIndication s:Acquired hypothyroidism TAKE 1 TABLET EVERY MORNING BEFORE BREAKFAST 30 tablet 025 Active aspirin (Aspirin Low Dose) 81 MG EC tablet TAKE 1 TABLET BY MOUTH EVERY MORNING 90 tablet 3 025 Active Multiple Vitamins-Mineral s (CertaVite/Antio xidants) tablet TAKE 1 TABLET BY MOUTH EVERY MORNING WITH FOOD 90 tablet 3 Active rosuvastatin (Crestor) 40 MG tablet TAKE 1 TABLET BY MOUTH AT BEDTIME 90 tablet 3 025 Active metFORMIN XR (Glucophage-XR) 500 MG 24 hr tablet TAKE 1 TABLET BY MOUTH TWICE DAILY IN THE MORNING AND IN THE EVENING WITH FOOD 180 tablet Active metoprolol succinate XL (Toprol-XL) 50 MG 24 hr tabletIndication s:Primary hypertension TAKE 1 TABLET BY MOUTH EVERY MORNING 30 tablet 11 025 Active rosuvastatin (Crestor) 40 MG tablet TAKE 1 TABLET BY MOUTH AT BEDTIME 90 tablet 3 024 2024 Discontinued aspirin (Aspirin Adult Low Strength) 81 MG EC tablet TAKE 1 TABLET BY MOUTH EVERY MORNING 90 tablet 3 024 2024 Discontinued metoprolol succinate XL (Toprol-XL) 50 MG 24 hr tabletIndication s:Primary hypertension Take 1 tablet (50 mg) by mouth in the morning. 30 tablet 11 024 2024 Discontinued levothyroxine (Synthroid, Levoxyl) 125 [...] with specialist Coronary artery disease invo lving zuni coronary artery of zuni heart 05/20/2024 Ecchymoses, spontaneous 02/02/2024 Assessment & [...] Duoneb NBZ but advise to see her budget analyst if needed -has apt w socket puller in 12/2023 Hyperkalemia 09/30/2023 Assessment & Plan (09/30/2023 3:04 PM EDT): I will repeat BMP to monitor her K level NSTEMI (non-ST elevated myocardial infarction) 0 09/17/2023 Assessment & Plan (09/30/2023 3:02 PM EDT): Continue to follow with cardiology C/w cardiac rehab Assessment & Plan (09/17/2023 10:26 AM EDT): F appoitnments with me and pharmacy will be [...] 06/12/2023 Acute kidney injury superimposed on CKD ([facility] ) 01/19/2023 Assessment & Plan (01/19/2023 4:49 [...] Encounters Date Type Department Care Team Description 10/13/[address] [facility] [address] [place] [address] Mary Rod MD Primary hypertension 10/12/[address] [facility] [address] [place] [address] Mary Rod MD Med Refill 10/11/[address] [facility] [address] [place], [place] [phone] [facility] 10/11/[address] [facility] [address] [place] [address] Mary Rod MD 09/30/2024 Orders Only GENERIC EXTERNAL DATA DEPARTMENT Provider, Generic External Data 09/20/[address] [facility] [address] [place] [address] Mary Rod MD Epigastric pain; Acquired hypothyroidism 09/09/[address] [facility] [address] [place] [address] Mary Rod MD Type 2 diabetes mellitus with chronic kidney disease, without long-term current use of insulin, unspecified CKD stage (CMS/HCC); Spinal stenosis of lumbar region, unspecified whether neurogenic claudication present 09/07/[address] [facility] [address] [place], [place] [phone] Mary Rod MD 08/18/2024 10:[address] [facility] [address] [place] [address] Alexia Guthrie LPN Encounter for immunization (Primary Dx) 08/17/[address] [facility] [address] [place] [address] Zeinab Tompkins MD 08/12/2024 11:15 AM EST Office Visit [facility] [address] [place] [address] Mary Rod MD Epigastric pain (Primary Dx); Type 2 diabetes mellitus with chronic kidney disease, without long-term current use of insulin, unspecified CKD stage (CMS/HCC); Left hand pain 08/12/2024 Travel 08/12/[address] [facility] [address] [place], [place] [phone] Mary Rod MD Essential hypertension 07/29/[address] [facility] [address] [place], [place] [phone] Mary Rod MD Pre-visit Planning ((Unable to [...] seasonal, injecta ble, preservative free 04/05/2012 Novel [id number] 05/14/2016 Pfizer Covid-19 Vaccine 12+ 06/18/2023 Pneumococcal [...] Description 11/10/2024 10:30 AM EDT Office Visit [facility] [address] [place] [address] Tonya Brennan, OD [address] [place] [address] Health Maintenance Due Date Last Done Comments [...] history exists Depression Screening 01/06/2025 01/07/2024, 01/07/20 SDOH Screening 01/06/2025 01/07/2024 Mammogram 01/08/2025 01/08/2023, [...] Promote adherence to treatment regimen General No Delia, Giovany, Sindi Procedures Procedure Name Priority Date/Time Associated Diagnosis [...] AM EDT) Hepatitis A IgM Nonreactive Nonreactive [facility] Comment:IgM antibodies to LAZCANO V not detected; does not exclude earlyacute or recovered HAV infection. ~Hepatitis B Surface Antibody NONREACTIVE Nonreactive [facility] Comment:Nonreactive: < 8.00 mIU/mL Hepatitis B Core Antibody Nonreactive Nonreactive [facility] Hepatitis C Antibody Nonreactive Nonreactive [facility] Comment:Antibodies to HCV no t detected; does not exclude early acuteHCV infection. Hepatitis B Surface Ag Negative Negative [facility] 09/30/2024 8:24 AM EDT 09/30/2024 8:24 AM EDT Generic External Data Provider LAB BLOOD ORDERAB LES Final Result Performing Organization Address City/[facility] Co de Phone Number [facility] [address] [place] [phone] * Mononucleosis Test, Qualitative (09/30/2024 8:24 AM EDT) Monotest Negative Negative [facility] 09/30/2024 8:24 AM EDT 09/30/2024 8:24 AM EDT us Generic External Data Provider LAB BLOOD ORDERAB LES Final Result Performing Organization Address [facility] Co de Phone Number [facility] [address] [place] [phone] * HIV-1/2 Antigen and Antibodies, Fourth Generation, with Reflexes (09/30/2024 8:24 AM EDT) HIV AB/AG Nonreactive Nonreactive [facility] Comment:HIV-1 p24 Ag and/or HIV-1/HIV-2 Ab not detected.A test result that is nonreactive does not exclude thepossibility of exposure to or infection with HIV-1 and/orHIV-2. Nonreactive results in this assay for individualswith prior exposure to HIV-1 and/or HIV-2 may be due toantigen and antibody levels that are below the limit ofdetection of this assay.The Naymit HIV Ag/Ab Combo assay result andsupplemental assay results should be interpreted inconjunction with the patient's clinical presentation,history and other laboratory results. If the results areinconsistent with clinical evidence, additional testing issuggested to confirm the result. 09/30/2024 8:24 AM EDT 09/30/2024 8:24 AM EDT us Generic External Data Provider LAB BLOOD ORDERAB LES Final Result [facility] [address] [place] [phone] * (ABNORMAL) ZEINAB Screen,IFA, with Reflex to Titer and Pattern (09/30/2024 8:24 AM EDT) Pathologist [facility] Anti Nuclear Antibody Screen POSITIVE (A) NEGATIVE [facility] Comment:ZEINAB IFA is a first l ine screen for detecting thepresence of up to approximately 150 autoantibodies invarious autoimmune diseases. A positive ZEINAB IFA resultis suggestive of autoimmune disease and reflexes totiter and pattern. Further laboratory testing may beconsidered if clinically indicated.For additional information, please refer tohttp://education.[employer]Kingmaker/faq/JZF786(This link is being provided for informational/educational purposes only.) ZEINAB Titer 1:80(A) titer [facility] Comment:A low level ZEINAB tite r may be present in pre-clinicalautoimmune diseases and normal individuals. Reference Range <1:40 Negative 1:40-1:80 Low Antibody Level >1:80 Elevated Antibody Level ZEINAB Pattern Nuclear, Speckled (A) [facility] Comment:Speckled pattern is associated with mixed connectivetissue disease (MCTD), systemic lupus erythematosus(SLE), Sjogren's syndrome, dermatomyositis, andsystemic sclerosis/polymyositis overlap.AC-2,4,5,29: SpeckledInternational Consensus on ZEINAB Patterns(https://doi.org/10.1515/zgas-9749-7173) ZEINAB TITER 2 (REF LAB) 1:40(A) titer [facility] Comment:A low level ZEINAB tite r may be present in pre-clinicalautoimmune diseases and normal individuals. Reference Range <1:40 Negative 1:40-1:80 Low Antibody Level >1:80 Elevated Antibody Level ZEINAB Pattern 2 (A) [facility] Comment:Cytoplasmic, Fine Sp eckled Abnormal Flag: AScattered small speckles in the cytoplasm mostly withhomogeneous or dense fine speckled background (e.g.,anti-Nicole-1). Pattern is associated with anti-synthetasesyndrome, polymyositis/dermatomyositis, limited systemicsclerosis, and idiopathic pleural effusion.AC-20: Fine SpeckledInternational Consensus on ZEINAB Patterns(https://doi.org/10.1515/edzm-8973-5695)THIS TEST WAS PERFORMED AT:[facility] [place] [phone] HO MD ZEINAB TITER 3 TNP [facility] ZEINAB PATTERN 3 [facility] 09/30/2024 8:24 AM EDT 09/30/2024 8:24 AM EDT us Generic External Data Provider LAB BLOOD ORDERAB LES Final Result [facility] [address] [place] [phone] [phone] * Lipase (09/30/2024 8:24 AM EDT) Lipase 18 8 - 78 U/L [facility] 09/30/2024 8:24 AM EDT 09/30/2024 8:24 AM EDT us Generic External Data Provider LAB BLOOD ORDERAB LES Final Result Performing Organization Address [facility] de Phone Number [facility] [address] [place] [phone] * (ABNORMAL) Lactate Dehydrogenase (LD) (09/30/2024 8:24 AM EDT) Lactate Dehydrogenase 527(H) 122 - 220 U/L [facility] Comment:Slight Hemolysis.Int erpret result with caution. 09/30/2024 8:24 AM EDT 09/30/2024 8:24 AM EDT us Generic External Data Provider LAB BLOOD ORDERAB LES Final Result Performing Organization Address [facility] de Phone Number [facility] [address] [place] [phone] * Amylase (09/30/2024 8:24 AM EDT) Amylase 61 28 - 100 U/L [facility] 09/30/2024 8:24 AM EDT 09/30/2024 8:24 AM EDT us Generic External Data Provider LAB BLOOD ORDERAB LES Final Result Performing Organization Address [facility] de Phone Number [facility] [address] [place] [phone] * Acetaminophen level (09/30/2024 8:24 AM EDT) Acetaminophen LAB <3 <30 mcg/mL [facility] 09/30/2024 8:24 AM EDT 09/30/2024 8:24 AM EDT Generic External Data Provider LAB BLOOD ORDERAB LES Final Result Performing Organization Address [facility]/ZIP Co de Phone Number [facility] [address] [place] [phone] * Hepatic Function Panel (09/30/2024 8:24 AM EDT) Bilirubin, Direct 0.2 0.0 - 0.5 mg/dL [facility] 09/30/2024 8:2 4 AM EDT 09/30/2024 8:24 AM EDT us Generic External Data Provider LAB BLOOD ORDERAB LES Final Result Performing Organization Address [facility] de Phone Number [facility] [address] [place] [address] [phone] * (ABNORMAL) Comprehensive Metabolic Panel (09/30/2024 8:24 AM EDT) [facility] Sodium 139 135 - 145 mmol/L [facility] Potassium 4.5 3.3 - 5.1 mmol/L [facility] Comment:Slight Hemolysis.Int erpret result with caution. Chloride 109(H) 96 - 108 mmol/L [facility] Carbon Dioxide 22 22 - 29 mmol/L [facility] Anion Gap 13 12 - 20 [facility] Urea Nitrogen (BUN) 14 9 - 16 mg/dL [facility] Creatinine, Serum 0.76 0.5 - 1.4 mg/dL [facility] Estimated Glomerular Filt Rate >60 [facility] Comment:Chronic Kidney Disea se: Estimated GFR < 60 mL/min/1.05o5Oobmmj Kidney Disease: Estimated GFR < 15 mL/min/1.73m2 Glucose 126(H) 60 - 115 mg/dL [facility] Calcium 8.5 8.4 - 10.2 mg/dL [facility] Bilirubin, Total 0.5 0.0 - 1.0 mg/dL [facility] Aspartate Amino Transferase 403(H) 5 - 31 U/L [facility] Comment:Slight Hemolysis.Int erpret result with caution. Alanine Aminotransferase 368(H) 0 - 31 U/L [facility] Total Protein 6.7 6.5 - 8.0 g/dL [facility] Albumin Level 3.7 3.5 - 5.0 g/dL [facility] Alkaline Phosphatase 104 39 - 117 U/L [facility] 09/30/2024 8:24 AM EDT 09/30/2024 8:24 AM EDT us Generic External Data Provider LAB BLOOD ORDERAB LES Final Result Performing Organization Address [facility] Co de Phone Number [facility] [address] [place] [phone] * Helicobacter pylori??Antigen, EIA, Stool (09/19/2024 7:30 AM EDT) H pylori Ag Stool SEE NOTE [facility] Comment:HELICOBACTER PYLORI AG, EIA, STOOL Micro Number: [id number] Test Status: Final Specimen Source: Stool Specimen Quality: Adequate H.pylori Ag: Not Detected Antimicrobials, proton pump inhibitors, and bismuth preparations inhibit H. pylori and ingestion up to two weeks prior to testing may cause false negative results. If clinically indicated the test should be repeated on a new specimen obtained two weeks after discontinuing treatment. Reference Range: Not DetectedTHIS TEST WAS PERFORMED AT:[facility] [place] [id number] HO MD Stool Rectal contents / Unknown 09/19/2024 7:30 AM EDT 09/19/2024 1:23 PM EDT us Mary Rivera MD LAB BODY FLUIDS AND S TOOLS ORDERABLES Final Result Performing Organization Address [facility] Co de Phone Number [facility] [address] [place] [phone] * (ABNORMAL) POCT HGB A1C (08/12/2024 10:46 AM EST) Hemoglobin A1C 6.2(A) 4.0 - 6.0 % QC Media Lot # [id number] Lot# Expiration Date [id number] Blood 08/12/2024 10:4 6 AM EST Mary Rivera MD POINT OF CARE TEST EN TER/EDIT ORDERABLES Final Result * POCT Glucose (08/12/2024 10:45 AM EST) Glucose Blood, POC 155 60 - 200 mg/dL Comment:Vinny ALVAREZ QC Media Lot # [id number] Lot# Expiration Date [id number] Blood Capillary blood specimen / Unknown 08/12/2024 10:45 AM EST Mary Rivera MD POINT OF CARE TEST EN TER/EDIT ORDERABLES Final Result * Hm Colonoscopy (02/16/2023) Historical Provider HEALTH MAINTENANCE Final Result * BI Mammogram Screening Tomosynthesis Bilateral (01/08/2023 12:20 PM EDT) Anatomical Region Laterality Modality Breast Bilateral Mammography 01/08/2023 12:2 0 PM EDT Narrative 01/30/2023 10:10 AM EDT ? [facility] ? [address] ?[place] [address] ? Mammography Report ? Signed ? Patient: Shannon Felipe,Hayley ?MR#: [id number] ?? [id number] ? : 1950 ?Acct:[id number] ? Age/Sex: 72 / F ?ADM Date: 07/27/23 ? Loc: HO.MAMMO ? Attending Dr: Mary Rivera MD ? Ordering Physician: Mary Rod MD ?Results: ? Date of Service: 01/08/23 ?Follow Up: ? Procedure(s): MM tomosynthesis screening BI ?? Accession Number(s): [id number] ? cc: Mary Rod MD ? EXAMINATION: [...] 1007 ? DD/ 1220 ? TD/TT: ? Corporate Safety Manager: ? Procedure Note Dondglenyter, Image - 01/30/2023 [facility] [address] [place] [address] Mammography Report Signed Patient: Slade MarcaMR#: [id number] : 1950cct:[id number] Age/Sex: 72 / FADM Date: 01/08/23 Loc: HO.MAMMO Attending Dr: Mary Rivera MD Ordering Physician: Mary Rodesults: Date of Service: 01/08/23Follow Up: Procedure(s): MM tomosynthesis screening BI Accession Number(s): [id number] cc: Mary Rod MD EXAMINATION: MM SCREENING [...] in OV> 01/30/23 1007 DD/ 1220 TD/TT: Corporate Safety Manager: Mary Rivera MD IMG BI PROCEDURES Kar peter Result - Final * Lipid Panel, Standard (11/26/2022 8:01 AM EDT) Cholesterol, Total 116 <200 mg/dL [facility] HDL Cholesterol 63 > OR = 50 mg/dL [facility] Triglycerides 63 <150 mg/dL [facility] LDL Cholesterol 39 mg/dL (calc) [facility] Comment: Reference range: <100 Desirable range <100 mg/dL for primary prevention; ?? <70 mg/dL for patients with CHD or diabetic patients with > or = 2 CHD risk factors. LDL-C is now calculated using the Kirill-Aguirre calculation, which is a validated novel method providing better accuracy than the Friedewald equation in the estimation of LDL-C. Kirill SS et al. ALEXANDER. 2013;310(19): 0926-6821 (http://education.[employer]Kingmaker/faq/VFT060) Chol/HDLC Ratio 1.8 <5.0 (calc) [facility] Non-HDL Cholesterol 53 <130 mg/dL (calc) [facility] Comment: For patients with diabetes plus 1 major ASCVD risk factor, treating to a non-HDL-C goal of <100 mg/dL (LDL-C of <70 mg/dL) is considered a therapeutic option. Blood Venous blood specimen / Unknown 11/26/2022 8:01 AM EDT 11/26/2022 8:01 AM EDT Narrative [facility] - 11/26/2022 10:02 PM EDT FASTING:YES FASTING: YES Mary Rivera MD LAB BLOOD ORDERABLES Final Result [facility] [address] [facility], [place] [address] [facility] [address] [place] [phone] from Last 3 Months or Most Recently Relevant to Health Maintenance Insurance [facility] [employer] (HMO D-SNP) REECE DUMAS [id number] Care Teams [employer] Relationship Specialty Start Date End Date Mary Rod MD [address] [place] [phone] PCP - General Family Medicine 02/07/22
--- OUTSIDE RECORDS SUMMARY | 2024-10-14 10:28 | XMS_ITS | Encounter Summary ---
Author Organization [employer] Address [address] [facility] [address] [place] [address] Care Team Providers Care Merchandise Examiner Name Role Phone Mary Rod MD Primary Care Provide r Reason for Visit * Reason Comments Med Refill Encounter Details Date Type Department Care Team (Late st Contact Info) Description 04/13/2023 Refill [facility] [address] [place] [address] Yara Tompkins MD [address] [place] [address] Social History Tobacco Use Types Packs/Day Years [...] Description 11/10/2024 10:30 AM EDT Office Visit [facility] [address] [place] [address] TarkaTonya, OD [address] [place] [address] documented as of this encounter Goals Goal [...] documented as of this encounter Care Teams Merchandise Examiner Relationship Specialty Start Date End Date Mary Rod MD [address] [place] [address] PCP - General Family Medicine 02/07/22 documented as of this encounter
--- OUTSIDE RECORDS SUMMARY | 2024-10-14 10:28 | XMS_ITS | Encounter Summary ---
Author Organization [employer] Address [address] [facility] [address] [place] [address] Care Team Providers Care Managed Care Liaison Name Role Phone Mary Rod MD Primary Care Provide r Reason for Visit * Reason Comments Med Refill Encounter Details Date Type Department Care Team (Late st Contact Info) Description 10/13/2024 Refill [facility] [address] [place] [address] Mary Rod MD [address] [place] [address] Primary hypertension Social History Tobacco Use Types Packs/Day Years [...] Description 11/10/2024 10:30 AM EDT Office Visit [facility] [address] [place] [address] TarkaXiaoTonya, OD [address] [place] [address] documented as of this encounter Goals Goal Patient Goal Type Associated Problems Recent Progress Patient-Stated? Author Record your blood pressure once per day Blood Pressure Giovany Dixon PharmD Note: When you receive your new BP monitor Short-term: Promote adherence to treatment regimen General No Giovany Lin PharmD documented as of this encounter Visit Diagnoses Diagnosis Primary hypertension Unspecified essential hypertension documented in this encounter Additional Health Concerns Assessment Noted Time PHQ-9 Depression Total Score: 0 01/07/20 24 9:26 AM EDT documented as of this encounter Care Teams Managed Care Liaison Relationship Specialty Start Date End Date Mary Rod MD [address] [place] [address] PCP - General Family Medicine 02/07/22 documented as of this encounter
== END 2024-10-14 10:25 | disposition home or self-care (01) ==
LOC: HO.HGI 09:40
PROVIDERS: PCP Internal Medicine; Visit Provider Nurse Practitioner
DX: K21.9 Gastro-esophageal reflux disease without esophagitis (principal); K59.04 Chronic idiopathic constipation; R30.0 Dysuria; R20.0 Anesthesia of skin; R20.2 Paresthesia of skin; K75.81 Nonalcoholic steatohepatitis (NASH)
CPT/HCPCS: 99213

== ENCOUNTER 2024-10-14 09:39 | Outpatient (REF) | payer OTHER, SELFPAY ==
--- OUTSIDE RECORDS SUMMARY | 2024-10-14 11:47 | XMS_ITS | Clinical Summary ---
Author Organization [facility] Address [address] [address] Care Team Providers Care Print Color Operator Name Role Phone Natalee Rooney MD Primary Care Provider [phone] Allergies Active Allergy Reactions Criticality Noted Date [...] Visit [facility] [address] [place] [address] Rober Acharya MD [address] [facility] [address] [place] [phone] Health Maintenance Due Date Last Done Comments [...] patient's age to complete this topic Insurance [facility] ([id number]) [facility] ([id number]) Care Teams Print Color Operator Relationship Specialty Start Date End Date Natalee Rooney MD PCP - General Family Medicine 02/05/21
--- OUTSIDE RECORDS SUMMARY | 2024-10-14 11:47 | XMS_ITS | Encounter Summary ---
Author Organization [employer] Address [address] [facility] [address] [place] [address] Care Team Providers Care Research Aide Name Role Phone Mary Rod MD Primary Care Provide r Encounter Details Date Type Department Care Team (Late Contact Info) Description 11/12/2022 [facility] Information Management [address] [place] [address] Mary Rod MD [address] [place] [address] Social History Tobacco Use Types Packs/Day Years [...] Description 11/10/2024 10:30 AM EDT Office Visit [facility] [address] [place] [address] Tonya Brennan, OD [address] [place] [address] documented as of this encounter Goals Goal [...] documented as of this encounter Care Teams Research Aide Relationship Specialty Start Date End Date Mary Rod MD [address] [place] [phone] PCP - General Family Medicine 02/07/22 documented as of this encounter
--- OUTSIDE RECORDS SUMMARY | 2024-10-14 11:47 | XMS_ITS | Encounter Summary ---
Author Organization [employer] Address 75 [facility] [address] [place] [address] Care Team Providers Care Resource Conservationist Name Role Phone Mary Rod MD Primary Care Provide r Reason for Visit * Reason Comments Med Refill Encounter Details Date Type Department Care Team (Late st Contact Info) Description 10/13/2024 Refill [facility] MEDICINE [address] [place] [address] Mary Rod MD [address] [place] [address] Primary hypertension Social History Tobacco Use Types [...] Description 11/10/2024 10:30 AM EDT Office Visit [facility] OPTOMETRY [address] [place] [address] TarkaXiaoTonya, OD 267 [place] [address] documented as of this encounter Goals Goal [...] documented as of this encounter Care Teams Resource Conservationist Relationship Specialty Start Date End Date Mary Rod MD 230 [place] [address] PCP - General Family Medicine 02/07/22 documented as of this encounter
--- OUTSIDE RECORDS SUMMARY | 2024-10-14 11:47 | XMS_ITS | Encounter Summary ---
Author Organization [employer] Address 75 [facility] [address] [place] [address] Care Team Providers Care Dining Room Cashier Name Role Phone Mary Rod MD Primary Care Provide r Reason for Visit * Reason Comments Med Refill Encounter Details Date Type Department Care Team (Late st Contact Info) Description 10/11/2024 Refill [facility] CHC MED & PEDS [address] [place], [place] [phone] [facility] 230 [place] [address] Social History Tobacco Use Types Packs/Day Years [...] Description 11/10/2024 10:30 AM EDT Office Visit [facility] OPTOMETRY [address] [place] [address] TarkaTonya, OD [address] [place] [address] documented as of this encounter Goals Goal [...] documented as of this encounter Care Teams Dining Room Cashier Relationship Specialty Start Date End Date Mary Rod MD [address] [place] [address] PCP - General Family Medicine 02/07/22 documented as of this encounter
--- OUTSIDE RECORDS SUMMARY | 2024-10-14 11:47 | XMS_ITS | Encounter Summary ---
Author Organization [employer] Address 75 [facility] [address] [address] Care Team Providers Care Applications Packager Name Role Phone Mary Rod MD Primary Care Provide r Reason for Visit * Reason Onset Date Comments Med Refill 10/12/2024 Encounter Details Date Type Department Care Team ([facility] st Contact Info) Description 10/12/2024 Telephone [facility] MEDICINE [address] [place] [address] Mary Rod MD 230 [place] [address] Med Refill Social History Tobacco Use Types [...] Nassar LPN - 10/12/2024 8:36 AM EDT KAIAWHINA KURA KAUPAPA MAORI checked on 10/12/24 Ambien last filled on 08/04/24 by Mariaelena Yan. * Telephone Encounter - Michael Fabian - 10/12/2024 8:30 AM EDT TC from pt requesting medication refill. Medications needing refill : zolpidem (Ambien) 10 MG tablet To be sent to: [facility] - [place], [place] - [address] [facility] documented in this encounter Plan of Treatment Upcoming Encounters Date Type Department Care Team (Late st Contact Info) Description 11/10/2024 10:30 AM EDT Office Visit [facility] OPTOMETRY [address] [place] [address] Tonya Brennan, OD [address] [place] [address] documented as of this encounter Goals Goal [...] documented as of this encounter Care Teams Applications Packager Relationship Specialty Start Date End Date Mary Rod MD 230 [place] [address] PCP - General Family Medicine 02/07/22 documented as of this encounter
--- OUTSIDE RECORDS SUMMARY | 2024-10-14 11:47 | XMS_ITS | Encounter Summary ---
Author Organization [employer] Address 75 [facility] [address] [address] Care Team Providers Care Mexican Food Maker Hand Name Role Phone Mary Rod MD Primary Care Provide r Encounter Details Date Type Department Care Team ([facility] st Contact Info) Description 03/25/2023 Orders Only [facility] MEDICINE [address] [place] [address] ProviderLinsey MD Social History Tobacco Use Types [...] Description 11/10/2024 10:30 AM EDT Office Visit [facility] OPTOMETRY [address] [place], [place] [phone] Tarka, Tonya, OD [address] [place] [address] documented as of this encounter Goals Goal [...] documented as of this encounter Care Teams Mexican Food Maker Hand Relationship Specialty Start Date End Date Mary Rod MD 230 [place] [address] PCP - General Family Medicine 02/07/22 documented as of this encounter
--- OUTSIDE RECORDS SUMMARY | 2024-10-14 11:47 | XMS_ITS | Encounter Summary ---
Author Organization [employer] Address 75 [facility] [address] [address] Care Team Providers Care Sheet Metal Duct Installer Name Role Phone Mary Rod MD Primary Care Provide r Encounter Details Date Type Department Care Team (Late st Contact Info) Description 03/24/[address] [facility] MEDICINE [address] [place] [address] Tonia Cardoza Social History Tobacco Use Types [...] 11/10/2024 10:30 AM EDT Office Visit [facility] OPTOMETRY [address] [place], [place] [phone] Tarka, Tonya, OD [address] [place] [address] documented as of this encounter Goals Goal [...] documented as of this encounter Care Teams Sheet Metal Duct Installer Relationship Specialty Start Date End Date Mary Rod MD 230 [place] [address] PCP - General Family Medicine 02/07/22 documented as of this encounter
--- OUTSIDE RECORDS SUMMARY | 2024-10-14 11:47 | XMS_ITS | Clinical Summary ---
Author Organization [employer] Address 75 [facility] [address] [address] Care Team Providers Care Pets Salesperson Name Role Phone Mary Rod MD [...] by mouth Once per day. Active pancrelipase, Wsf-Lobr-Hzzg, (Creon) 72800-38572 units capsuleIndicatio ns:Pancreatic insufficiency TAKE 1 CAPSULE BY MOUTH FOUR TIMES DAILY WITH FOOD AND 1 CAPSULE WITH SNACKS DO NOT BREAK, CRUSH, DISSOLVE OR CHEW 120 capsule 3 Active Nyamyc 426511 UNIT/GM powderIndication s:Intertrigo APPLY TOPICALLY TO AFFECTED [...] with specialist Coronary artery disease invo lving [place] coronary artery of [place] heart 05/20/2024 Ecchymoses, spontaneous 02/02/2024 Assessment & [...] Duoneb NBZ but advise to see her server engineer if needed -has apt w short order cook in 12/2023 Hyperkalemia 09/30/2023 Assessment & Plan [...] 06/12/2023 Acute kidney injury superimposed on CKD ([facility] ) 01/19/2023 Assessment & Plan [...] Type Department Care Team Description 10/13/2024 Refill [facility] MEDICINE [address] [place] [address] Mary Rod MD Primary hypertension 10/12/2024 Telephone [facility] MED[facility]INE [address] [place] [address] Mary Rod MD Med Refill 10/11/2024 Refill [facility] CHC MED & PEDS [address] [place], [place] [phone] [facility] 10/11/2024 Refill [facility] MEDICINE [address] [place] [address] Mary Rod MD 09/30/2024 Orders Only GENERIC EXTERNAL DATA DEPARTMENT Provider, Generic External Data 09/20/2024 Refill [facility] MED[facility] [address] [place] [address] Mary Rod MD Epigastric pain; Acquired hypothyroidism 09/09/2024 Refill [facility] [address] [place] [address] Mary Rod MD Type 2 diabetes mellitus with chronic kidney disease, without long-term current use of insulin, unspecified CKD stage (CMS/HCC); Spinal stenosis of lumbar region, unspecified whether neurogenic claudication present 09/07/2024 Refill [facility] MEDICINE [address] [place], [place] [phone] Mary Rod MD 08/18/2024 10:50 AM EST Immunization [facility] [address] [place] [address] Alexia Guthrie LPN Encounter for immunization (Primary Dx) 08/17/2024 Refill [facility] [address] [place] [address] Zeinab Tompkins MD 08/12/2024 11:15 AM EST Office Visit [facility] MEDICINE [address] [place] [address] Mary Rod MD Epigastric pain (Primary Dx); Type 2 diabetes mellitus with chronic kidney disease, without long-term current use of insulin, unspecified CKD stage (CMS/HCC); Left hand pain 08/12/2024 Travel 08/12/2024 Refill [facility] MED[facility]INE [address] [place], [place] [phone] Mary Rod MD Essential hypertension 07/29/2024 Patient Outreach [facility] [address] [place], [place] [phone] Mary Rod MD Pre-visit Planning ((Unable to [...] seasonal, injecta ble, preservative free 04/05/2012 Novel [id number] 05/14/2016 Pfizer Covid-19 Vaccine 12+ 06/18/2023 Pneumococcal [...] Office Visit [facility] OPTOMETRY [address] [place] [address] Tonya Brennan, OD [address] [place] [address] Health Maintenance Due Date Last Done Comments [...] AM EDT) Hepatitis A IgM Nonreactive Nonreactive [facility] Comment:IgM antibodies to LAZCANO V not detected; does not exclude earlyacute or recovered HAV infection. ~Hepatitis B Surface Antibody NONREACTIVE Nonreactive [facility] Comment:Nonreactive: < 8.00 mIU/mL Hepatitis B Core Antibody Nonreactive Nonreactive [facility] Hepatitis C Antibody Nonreactive Nonreactive [facility] Comment:Antibodies to HCV no t detected; does not exclude early acuteHCV infection. Hepatitis B Surface Ag Negative Negative [facility] 09/30/2024 8:24 AM EDT 09/30/2024 8:24 AM EDT Generic External Data Provider LAB BLOOD ORDERAB LES Final Result Performing Organization Address [facility] Co de Phone Number [facility] [address] [place] [phone] * Mononucleosis Test, Qualitative (09/30/2024 8:24 AM EDT) Monotest Negative Negative [facility] 09/30/2024 8:24 AM EDT 09/30/2024 8:24 AM EDT us Generic External Data Provider LAB BLOOD ORDERAB LES Final Result Performing Organization Address [facility] Co de Phone Number [facility] [address] [place] [phone] * HIV-1/2 Antigen and Antibodies, Fourth Generation, with Reflexes (09/30/2024 8:24 AM EDT) HIV AB/AG Nonreactive Nonreactive [facility] Comment:HIV-1 p24 Ag and/or HIV-1/HIV-2 Ab not detected.A test result that is nonreactive does not exclude thepossibility of exposure to or infection with HIV-1 and/orHIV-2. Nonreactive results in this assay for individualswith prior exposure to HIV-1 and/or HIV-2 may be due toantigen and antibody levels that are below the limit ofdetection of this assay.The [employer] HIV Ag/Ab Combo assay result andsupplemental assay results should be interpreted inconjunction with the patient's clinical presentation,history and other laboratory results. If the results areinconsistent with clinical evidence, additional testing issuggested to confirm the result. 09/30/2024 8:24 AM EDT 09/30/2024 8:24 AM EDT us Generic External Data Provider LAB BLOOD ORDERAB LES Final Result [facility] [address] [place] [phone] * (ABNORMAL) ZEINAB Screen,IFA, with Reflex to Titer and Pattern (09/30/2024 8:24 AM EDT) Pathologist [facility] Anti Nuclear Antibody Screen POSITIVE (A) NEGATIVE [facility] Comment:ZEINAB IFA is a first l ine screen for detecting thepresence of up to approximately 150 autoantibodies invarious autoimmune diseases. A positive ZEINAB IFA resultis suggestive of autoimmune disease and reflexes totiter and pattern. Further laboratory testing may beconsidered if clinically indicated.For additional information, please refer tohttp://education.SenseHere Technology.[email or web address] Energy/faq/ENP085(This link is being provided for informational/educational purposes only.) ZEINAB Titer 1:80(A) titer [facility] Comment:A low level ZEINAB tite r may be present in pre-clinicalautoimmune diseases and normal individuals. Reference Range <1:40 Negative 1:40-1:80 Low Antibody Level >1:80 Elevated Antibody Level ZEINAB Pattern Nuclear, Speckled (A) [facility] Comment:Speckled pattern is associated with mixed connectivetissue disease (MCTD), systemic lupus erythematosus(SLE), Sjogren's syndrome, dermatomyositis, andsystemic sclerosis/polymyositis overlap.AC-2,4,5,29: SpeckledInternational Consensus on ZEINAB Patterns(https://doi.org/10.1515/dulf-9637-8789) ZEINAB TITER 2 (REF LAB) 1:40(A) titer [facility] Comment:A low level ZEINAB tite r may be present in pre-clinicalautoimmune diseases and normal individuals. Reference Range <1:40 Negative 1:40-1:80 Low Antibody Level >1:80 Elevated Antibody Level ZEINAB Pattern 2 (A) [facility] Comment:Cytoplasmic, Fine Sp eckled Abnormal Flag: AScattered small speckles in the cytoplasm mostly withhomogeneous or dense fine speckled background (e.g.,anti-Nicole-1). Pattern is associated with anti-synthetasesyndrome, polymyositis/dermatomyositis, limited systemicsclerosis, and idiopathic pleural effusion.AC-20: Fine SpeckledInternational Consensus on ZEINAB Patterns(https://doi.org/10.1515/ubwn-2196-6228)THIS TEST WAS PERFORMED AT:[facility] [place] [phone] HO MD ZEINAB TITER 3 TNP [facility] ZEINAB PATTERN 3 [facility] 09/30/2024 8:24 AM EDT 09/30/2024 8:24 AM EDT us Generic External Data Provider LAB BLOOD ORDERAB LES Final Result [facility] [address] [place] [phone] [phone] * Lipase (09/30/2024 8:24 AM EDT) Lipase 18 8 - 78 U/L [facility] 09/30/2024 8:24 AM EDT 09/30/2024 8:24 AM EDT us Generic External Data Provider LAB BLOOD ORDERAB LES Final Result Performing Organization Address [facility] de Phone Number [facility] [address] [place] [phone] * (ABNORMAL) Lactate Dehydrogenase (LD) (09/30/2024 8:24 AM EDT) Lactate Dehydrogenase 527(H) 122 - 220 U/L [facility] Comment:Slight Hemolysis.Int erpret result with caution. 09/30/2024 8:24 AM EDT 09/30/2024 8:24 AM EDT us Generic External Data Provider LAB BLOOD ORDERAB LES Final Result Performing Organization Address [facility] de Phone Number [facility] [address] [place] [phone] * Amylase (09/30/2024 8:24 AM EDT) Amylase 61 28 - 100 U/L [facility] 09/30/2024 8:24 AM EDT 09/30/2024 8:24 AM EDT us Generic External Data Provider LAB BLOOD ORDERAB LES Final Result Performing Organization Address [facility] de Phone Number [facility] [address] [place] [phone] * Acetaminophen level (09/30/2024 8:24 AM EDT) Acetaminophen LAB <3 <30 mcg/mL [facility] 09/30/2024 8:24 AM EDT 09/30/2024 8:24 AM EDT Generic External Data Provider LAB BLOOD ORDERAB LES Final Result Performing Organization Address [facility]/ZIP Co de Phone Number [facility] [address] [place] [phone] * Hepatic Function Panel (09/30/2024 8:24 AM EDT) Bilirubin, Direct 0.2 0.0 - 0.5 mg/dL [facility] 09/30/2024 8:24 AM EDT 09/30/2024 8:24 AM EDT us Generic External Data Provider LAB BLOOD ORDERAB LES Final Result Performing Organization Address [facility] Co de Phone Number [facility] [address] [place] [phone] [phone] * (ABNORMAL) Comprehensive Metabolic Panel (09/30/2024 8:24 AM EDT) Pathologist [facility] Sodium 139 135 - 145 mmol/L [facility] Potassium 4.5 3.3 - 5.1 mmol/L [facility] Comment:Slight Hemolysis.Int erpret result with caution. Chloride 109(H) 96 - 108 mmol/L [facility] Carbon Dioxide 22 22 - 29 mmol/L [facility] Anion Gap 13 12 - 20 [facility] Urea Nitrogen (BUN) 14 9 - 16 mg/dL [facility] Creatinine, Serum 0.76 0.5 - 1.4 mg/dL [facility] Estimated Glomerular Filt Rate >60 [facility] Comment:Chronic Kidney Disea se: Estimated GFR < 60 mL/min/1.08y5Zqqrex Kidney Disease: Estimated GFR < 15 mL/min/1.73m2 Glucose 126(H) 60 - 115 mg/dL [facility] Calcium 8.5 8.4 - 10.2 mg/dL [facility] Bilirubin, Total 0.5 0.0 - 1.0 mg/dL [facility] Aspartate Amino Transferase 403(H) 5 - 31 U/L [facility] Comment:Slight Hemolysis.Int erpret result with caution. Alanine Aminotransferase 368(H) 0 - 31 U/L [facility] Total Protein 6.7 6.5 - 8.0 g/dL [facility] Albumin Level 3.7 3.5 - 5.0 g/dL [facility] Alkaline Phosphatase 104 39 - 117 U/L [facility] 09/30/2024 8:24 AM EDT 09/30/2024 8:24 AM EDT us Generic External Data Provider LAB BLOOD ORDERAB LES Final Result Performing Organization Address [facility] Co de Phone Number [facility] [address] [place] [phone] * Helicobacter pylori??Antigen, EIA, Stool (09/19/2024 7:30 AM EDT) H pylori Ag Stool SEE NOTE [facility] Comment:HELICOBACTER PYLORI AG, EIA, STOOL Micro Number: [id number] Test Status: Final Specimen Source: Stool Specimen Quality: Adequate H.pylori Ag: Not Detected Antimicrobials, proton pump inhibitors, and bismuth preparations inhibit H. pylori and ingestion up to two weeks prior to testing may cause false negative results. If clinically indicated the test should be repeated on a new specimen obtained two weeks after discontinuing treatment. Reference Range: Not DetectedTHIS TEST WAS PERFORMED AT:[facility] [place] [phone] HO MD Stool Rectal contents / Unknown 09/19/2024 7:30 AM EDT 09/19/2024 1:23 PM EDT us Mary Rivera MD LAB BODY FLUIDS AND S TOOLS ORDERABLES Final Result Performing Organization Address [facility] Co de Phone Number [facility] [address] [place] [phone] * (ABNORMAL) POCT HGB A1C (08/12/2024 10:46 AM EST) Hemoglobin A1C 6.2(A) 4.0 - 6.0 % QC Media Lot # [id number] Lot# Expiration Date [id number] Blood 08/12/2024 10:4 6 AM EST Mary Rivera MD POINT OF CARE TEST EN TER/EDIT ORDERABLES Final Result * POCT Glucose (08/12/2024 10:45 AM EST) Glucose Blood, POC 155 60 - 200 mg/dL Comment:Vinny ALVAREZ QC Media Lot # [id number] Lot# Expiration Date [id number] Blood Capillary blood specimen / Unknown 08/12/2024 10:45 AM EST Mary Rivera MD POINT OF CARE TEST EN TER/EDIT ORDERABLES Final Result * Hm Colonoscopy (02/16/2023) Historical Provider HEALTH MAINTENANCE Final Result * BI Mammogram Screening Tomosynthesis Bilateral (01/08/2023 12:20 PM EDT) Anatomical Region Laterality Modality Breast Bilateral Mammography 01/08/2023 12:2 0 PM EDT Narrative 01/30/2023 10:10 AM EDT ? [facility] [place] ? [address] ?[place] [address] ? Mammography Report ? Signed ? Patient: Shannon Felipe,Hayley ?MR#: [id number] ?? [id number] ? : 1950 ?Acct:[id number] ? Age/Sex: 72 / F ?ADM Date: 07/27/23 ? Loc: HO.MAMMO ? Attending Dr: Mary Rivera MD ? Ordering Physician: Mary Rod MD ?Results: ? Date of Service: 01/08/23 ?Follow Up: ? Procedure(s): MM tomosynthesis screening BI ?? Accession Number(s): [id number] ? cc: Mary Rod MD ? EXAMINATION: [...] 1007 ? DD/ 1220 ? TD/TT: ? Meter Reader Chief: ? Procedure Note Donotangelinainterpreter, Image - 01/30/2023 [facility] [address] [place], [place] [address] Mammography Report Signed Patient: Slade MarcaMR#: [id number] : 1950cct:[id number] Age/Sex: 72 / FADM Date: 01/08/23 Loc: HO.MAMMO Attending Dr: Mary Rivera MD Ordering Physician: Mary Rodesults: Date of Service: 01/08/23Follow Up: Procedure(s): MM tomosynthesis screening BI Accession Number(s): [id number] cc: Mary Rod MD EXAMINATION: MM SCREENING [...] in OV> 01/30/23 1007 DD/ 1220 TD/TT: Meter Reader Chief: Mary Rivera MD IMG BI PROCEDURES Kar peter Result - Final * Lipid Panel, Standard (11/26/2022 8:01 AM EDT) Cholesterol, Total 116 <200 mg/dL [facility] HDL Cholesterol 63 > OR = 50 mg/dL [facility] Triglycerides 63 <150 mg/dL [facility] LDL Cholesterol 39 mg/dL (calc) [facility] Comment: Reference range: <100 Desirable range <100 mg/dL for primary prevention; ?? <70 mg/dL for patients with CHD or diabetic patients with > or = 2 CHD risk factors. LDL-C is now calculated using the Kirill-Aguirre calculation, which is a validated novel method providing better accuracy than the Friedewald equation in the estimation of LDL-C. Kirill SS et al. ALEXANDER. 2013;310(19): 5018-9731 (http://education.EMOSpeech/faq/UTE858) Chol/HDLC Ratio 1.8 <5.0 (calc) [facility] Non-HDL Cholesterol 53 <130 mg/dL (calc) [facility] Comment: For patients with diabetes plus 1 major ASCVD risk factor, treating to a non-HDL-C goal of <100 mg/dL (LDL-C of <70 mg/dL) is considered a therapeutic option. Blood Venous blood specimen / Unknown 11/26/2022 8:01 AM EDT 11/26/2022 8:01 AM EDT Narrative [facility] - 11/26/2022 10:02 PM EDT FASTING:YES FASTING: YES Mary Rivera MD LAB BLOOD ORDERABLES Final Result [facility] [address] [facility], [facility], [place] [phone] [facility] [address] [place] [phone] from Last 3 Months or Most Recently Relevant to Health Maintenance Insurance [facility] [employer] OPTIONS (HMO D-SNP) REECE DUMAS [id number] Care Teams Pets Salesperson Relationship Specialty Start Date End Date Mary Rod MD [address] [place] [phone] PCP - General Family Medicine 02/07/22
--- OUTSIDE RECORDS SUMMARY | 2024-10-14 11:47 | XMS_ITS | Encounter Summary ---
Author Organization [employer] Address 75 [facility] [address] [place] [address] Care Team Providers Care Mushroom Growth Media Mixer Name Role Phone Mary Rod MD Primary Care Provide r Reason for Visit * Reason Comments Med Refill Encounter Details Date Type Department Care Team (Late st Contact Info) Description 10/11/[address] [facility] MEDICINE [address] [place] [address] Mary Rod MD [address] [place] [address] Social History Tobacco Use Types Packs/Day Years [...] Description 11/10/2024 10:30 AM EDT Office Visit [facility] OPTOMETRY [address] [place] [address] TarkaTonya, OD [address] [place] [address] documented as of this encounter Goals Goal [...] documented as of this encounter Care Teams Mushroom Growth Media Mixer Relationship Specialty Start Date End Date Mary Rod MD [address] [place] [address] PCP - General Family Medicine 02/07/22 documented as of this encounter
--- OUTSIDE RECORDS SUMMARY | 2024-10-14 11:47 | XMS_ITS | Encounter Summary ---
Author Organization [employer] Address 75 [facility] [address] [place] [address] Care Team Providers Care Manager Entry Name Role Phone Mary Rod MD Primary Care Provide r Reason for Visit * Reason Comments Med Refill Encounter Details Date Type Department Care Team (Late st Contact Info) Description 04/13/2023 Refill [facility] MEDICINE [address] [place] [address] Yara Tompkins MD [address] [place] [address] Social History Tobacco Use Types Packs/Day Years [...] Description 11/10/2024 10:30 AM EDT Office Visit [facility] OPTOMETRY [address] [place] [address] TarkaTonya, OD [address] [place] [address] documented as of this encounter Goals Goal [...] as of this encounter Care Teams Manager Entry Relationship Specialty Start Date End Date Mary Rod MD [address] [place] [address] PCP - General Family Medicine 02/07/22 documented as of this encounter
[2024-10-14 11:49] LABS: Appearance Urine Clear; Color Urine Yellow; Glucose Urine UA >=1000 mg/dL (Negative); Leukocyte Esterase Urine Negative (Negative); Nitrite Urine Negative (Negative); PH 5.5 (5.0-9.0); UMIC TRIGGER UACC YES; Urine Blood Negative (Negative); Urine Ketones Negative (Negative); Urine Protein Negative (Neg-Trace)
[2024-10-14 11:57] LABS: Bacteria Urine None Seen (None Seen); Hyaline Casts Urine 0-2 /LPF (0-2); RBC Urine 0-2 /HPF (0-2); Squamous Epithelial Cell Urine 0-2 /HPF (0-2); WBC Urine 0-5 /HPF (0-5)
== END 2024-10-14 09:40 | disposition home or self-care (01) ==
LOC: HO.LAB 09:39
PROVIDERS: PCP Internal Medicine; Visit Provider Nurse Practitioner
DX: K21.9 Gastro-esophageal reflux disease without esophagitis (principal); K59.04 Chronic idiopathic constipation; R30.0 Dysuria; R20.0 Anesthesia of skin; R20.2 Paresthesia of skin; K75.81 Nonalcoholic steatohepatitis (NASH)
CPT/HCPCS: 81001; 99212

== ENCOUNTER 2024-11-10 11:17 | Outpatient (REF) | payer OTHER, SELFPAY ==
--- NOTE | ~2024-11-10 | XR_ITS ---
EXAMINATION: XR WRIST, LEFT CLINICAL INFORMATION: Pain in left wrist COMPARISON: None available. TECHNIQUE: PA, lateral, and oblique views of the left wrist. FINDINGS: Redemonstration of volar plate and screw fixation of the distal radius, with fixation screws spanning distal radial fractures which appear healing. Stable alignment, which is anatomical. Hardware appears intact and well seated without complication. Ulnar styloid avulsion fracture, also healing. Soft tissue swelling has improved. Mild dorsal swelling persists. Vascular calcifications diffusely. XR/XR wrist LT min 3V IMPRESSION: 1. Redemonstration of distal radial ORIF with stabilization plate and fixation screws spanning distal radial fractures. There is healing appearance of the fractures in stable anatomical alignment. 2. Redemonstration of ulnar styloid avulsion fracture, also with appearance consistent with healing. 3. Mild residual dorsal soft tissue swelling. Electronically signed by: Chris Adames MD 11/10/2024 11:32 AM EDT
--- OUTSIDE RECORDS SUMMARY | 2024-11-10 11:41 | XMS_ITS | Encounter Summary ---
Author Organization [employer] Address [address] [facility] [address] [place] [address] Care Team Providers Care Rivet Machine Operator Name Role Phone Mary Rod MD Primary Care Provide r Encounter Details Date Type Department Care Team (Late st Contact Info) Description 03/24/2023 Abstract [facility] [address] [place], [place] [phone] Tonia Cardoza Social History Tobacco Use Types [...] Care Team (Late st Contact Info) Description 12/08/2024 1:45 PM EDT Office Visit [facility] [address] [place], [place] [phone] Mary Rod MD [address] [place], [place] [phone] documented as of this encounter Goals Goal [...] documented as of this encounter Care Teams Rivet Machine Operator Relationship Specialty Start Date End Date Mary Rod MD [address] [place], [place] [phone] PCP - General Family Medicine 02/07/22 documented as of this encounter
== END 2024-11-10 11:18 | disposition home or self-care (01) ==
LOC: HO.HHCX 11:17
PROVIDERS: PCP Internal Medicine; Visit Provider Family Medicine
DX: M25.532 Pain in left wrist (principal)
CPT/HCPCS: 73110

== ENCOUNTER → 2024-11-10 11:19 | Outpatient (BNV) | payer OTHER, SELFPAY | PROVIDERS: PCP Internal Medicine; Visit Provider Radiology Diagnostic Radiology | DX: M25.532 Pain in left wrist (principal); S52.612D Displaced fracture of left ulna styloid process, subsequent encounter for closed fracture with routine healing | CPT/HCPCS: 73110 ==

== ENCOUNTER 2024-11-11 08:50 | Outpatient (AMB) | payer OTHER, SELFPAY ==
--- OUTSIDE RECORDS SUMMARY | 2024-11-11 08:52 | XMS_ITS | Encounter Summary ---
Author Organization [employer] Address [address] [facility] [address] [place] [address] Care Team Providers Care Lump Maker Name Role Phone Mary Rod MD Primary Care Provide r Encounter Details Date Type Department Care Team (Late st Contact Info) Description 03/24/2023 Abstract [facility] [address] [place], [place] [phone] Tonia Cardoza Social History Tobacco Use Types [...] Description 12/08/2024 1:45 PM EDT Office Visit [facility] [address] [place], [place] [phone] Mary Rod MD [address] [place], [place] [phone] documented as of this encounter Goals Goal [...] documented as of this encounter Care Teams Lump Maker Relationship Specialty Start Date End Date Mary Rod MD [address] [place], [place] [phone] PCP - General Family Medicine 02/07/22 documented as of this encounter
--- NOTE | 2024-11-11 08:55 | MHC.OFFVIS ---
Vital Signs 11/11/24 09:14 Height 5 ft BMI Reason not done Patient refused/unable BP 110/58 L Blood Pressure Location Rt brachial Position Sitting Pulse 96 Pulse Source Pulse Oximeter Pulse Oximetry (%) 95 Oxygen Delivery Method Room Air Intake Visit Reasons: CIC, IBS, hand pain, insomna Intake Note: ESTABLISHED PATIENT for mgmt of CIC, IBS, hand pain, insomnia CC; C.O. severe nausea + vomiting, abd pain, diarrhea, lack of appetite. Pt states that she has been experiencing these sx for the last 3-4 days. Pt has not been consuming any solid foods but has been drinking water. Computer Trainer Required: Yes Computer Trainer Services: Computer Trainer Present Computer Trainer Name: [facility] + [phone] Information Interpreted: clinical only Accompanied by: Self / Same As Patient Allergies No Known Allergies [No Known Allergies*] Allergy (Verified 11/11/24 10:01) HPI HPI CIC, IBS, hand pain, insomna: Details: Assessment & Plan (1) GERD (gastroesophageal reflux disease): Code(s): K21.9 - Gastro-esophageal reflux disease without esophagitis Category: Medical (2) Chronic idiopathic constipation: Code(s): K59.04 - Chronic idiopathic constipation Category: Medical (3) Dysuria: Comment: There is concern over recurrent persistent UTI She has no urinary obstruction seen She has appointment with Urology Code(s): R30.0 - Dysuria Category: Medical (4) Numbness and tingling in left hand: Code(s): R20.0 - Anesthesia of skin; R20.2 - Paresthesia of skin Category: Medical (5) VAZQUEZ (nonalcoholic steatohepatitis): Comment: HER liver enzymes are not terribly deranged this can be monitored by her primary care provider at 6 month intervals and she can be return to our service for surveillance if the transaminases become greater than twice the upper limit of normal BASELINE LABS 03/13/22 Plt Count 258 Estimated GFR > 60 Ferritin 43 Total Bilirubin 0.8 AST 179 H ALT 108 H Alkaline Phosphatase 106 D 04/16/22 Plt Count 267 Hemoglobin A1c % 6.2 Ferritin 21 Total Bilirubin 0.5 GGT 149 H AST 71 H ALT 58 H Anti-Mitochondrial Ab NEGATIVE Anti-Smooth Muscle Ab <20 Hepatitis A IgM Ab Nonreactive Hep Bs Antigen Negative Hep Bs Antibody NONREACTIVE Hep B Core Total Ab Nonreactive Hepatitis C Ab (EIA) Nonreactive HIV 1&2 Ab/P24 Ag 4thGn Nonreactive She does not drink ETOH ULTRASOUND THE ABDOMEN WITH ELASTOGRAPHY (F0-F1) Laboratory Tests 09/30/2503/18/25 10:5908:24 Estimated GFR > 60 Ferritin 304 H Total Bilirubin 0.5 Direct Bilirubin 0.2 AST 403 H ALT 368 H Alkaline Phosphatase 104 Lactate Dehydrogenase 527 H Amylase 61 Lipase 18 ZEINAB Screen POSITIVE A Hepatitis A IgM Ab Nonreactive Hep Bs Antigen Negative Hep Bs Antibody NONREACTIVE Hep B Core Total Ab Nonreactive Hepatitis C Ab (EIA) Nonreactive Monoscreen Negative HIV 1&2 Ab/P24 Ag 4thGn Nonreactive ULTRASOUND OF THE ABDOMEN 02/19/23 IMPRESSION: 1. There is generalized increase in hepatic echotexture, consistent with fatty infiltration or hepatocellular disease. Please correlate clinically. No focal hepatic mass or intrahepatic biliary dilatation is seen. 2. The gallbladder is surgically absent. 3. Technically limited ultrasound examination of the pancreas and abdominal great vessels. Code(s): K75.81 - Nonalcoholic steatohepatitis (VAZQUEZ) Category: Medical Plan NIUEAN #[id number], Singh (HOLD: monteleukast, rosuvastatin, entresto, metoprolol, reglan, metformin, losaartan, if pain not resolving with the imipramine) She is moving her bowels better. Overall her GI sx are improved, I believe that she was out of some of her GI medications and this was the problem with the N/V and burning pain. She continues to complain of her left hand pain and insomnia driven by this. This is status post distal ulnar fracture. I will increase the imipramine to 2 tabs qhs as she has tolerated it well. She is c/o dysuria and will get a UA. I noticed in passing that this has been a dramatic escalation of her transaminases, and this will bear further exploring. She has not gained a lot of weight so question whether this may be drug induced but we also need to screen for possible autoimmune escalation given a positive ZEINAB. We will have to address this at the next visit. She has no signs or symptoms reported of liver disease. ROV 4 weeks. Orders: Orders UA CC w/rflx Micro + Cult Today R20.0 - Anesthesia of skin, R20.2 - Paresthesia of skin, R30.0 - Dysuria Medications: Changed From imipramine HCl 10 mg PO BEDTIME 30 days 30 tabs 3RF R20.0 - Anesthesia of skin, R20.2 - Paresthesia of skin To imipramine HCl 20 mg (2 x 10 mg) PO BEDTIME 30 days 60 tabs 3RF R20.0 - Anesthesia of skin, R20.2 - Paresthesia of skin LABS: Not obtained TODAY'S VISIT NIUEAN #Natalee Parish (HOLD: monteleukast, rosuvastatin, entresto, metoprolol, reglan, metformin, losaartan, as a consideration for something that could be affecting her liver enzymes? ?) She says she was seen in the ER but what she actually means is that she was seen at the [facility] walk in clinic. She says they only focused on her hand and did nothing else. Get, the metoclopramide at maximum dose of 10 mg is not helping her. SHe is slumped over in a chair and is dry heaving today. She has been vomiting for 4-5 days. This was of sudden onset. She is also very dizzy and weak. She says she has been able to take her metoclopramide but not many of her other medications. She seems to be acutely ill, so I have my staff take her down to the ER for acute work up and treatment. Of concern in the long run is she is has triple digit and apparently rising transaminases, and actually her alk-phos has bumped 40 points. Yet, her pancreatic enzymes seem to be normal. At the time I noticed the initial BUN by did a hepatitis AB and C panel that was negative, she has a positive ZEINAB but it is a low 1-80 titer and is more common for connective tissue disorder then autoimmune liver disease. Also in the past her AMA and SMA antibodies were normal. It is possible may need to consider liver biopsy. She is on multiple meds that could be driving this including her statin, her Farxiga and her Trulicity. At 1st I think we need to see what the ER comes up with. We call her for a follow-up depending on the outcome of her emergency presentation. [facility] Medical History (Updated 11/11/24 @ 13:24 by ABE Breen) Abdominal pain Dysuria Myocardial infarction Left hip pain Sacroiliac joint pain Elevated liver enzymes Right knee pain Left lumbar radiculitis Lumbago with sciatica Sepsis Right anterior knee pain Nausea and vomiting Candidiasis of mouth and esophagus Medication monitoring encounter Abnormal findings on diagnostic imaging of musculoskeletal system Asthma ANGIE (obstructive sleep apnea) Diabetes Esophageal dysmotilities Esophageal candidiasis Pneumonia Cystitis Recurrent UTI (urinary tract infection) Vitamin D deficiency Hypothyroidism Osteoporosis B12 deficiency Iron deficiency anemia IBS (irritable bowel syndrome) Surgical History H/O hand surgery H/O heart surgery Hx of gastric bypass History of esophagogastroduodenoscopy (EGD) Hx of colonoscopy History of arthroscopy of left shoulder Family History Father No problems noted. 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 Patient Tobacco Use Status: Never used Tobacco Advance Directives: No Advance Directives Information Provided: Yes Do you have a plan to hurt others: No Plan service: No Current occupational status: disabled Review of Systems Const Reports body aches, Reports fatigue, Denies fever(s), Reports malaise, Denies night sweats, Reports poor appetite, Reports weakness and Denies weight loss ENT Reports Normal hearing present, Denies dental pain, Denies dysphagia, Denies hearing loss, Denies mouth pain, Reports neck pain, Denies odynophagia, Denies throat swelling, Denies tongue swelling and Reports other (Dentition adequate) Card Reports chest pain Resp Reports no additional complaints GI Details: Reports abdominal pain, Denies melena, Denies bloating, Denies hematochezia, Denies constipation, Denies GI cramping, Denies dysphagia, Denies excessive flatus, Denies early satiety, Reports heartburn, Denies diarrhea, Reports nausea, Denies odynophagia, Reports vomiting and Denies hematemesis Musc Reports back pain, Reports myalgias, Reports arthralgias, Reports muscle weakness and Reports neck pain Skin/Breast Denies pruritus, Denies lesions, Denies rash and Denies jaundice Neuro Reports Normal hearing present, Denies Abnormal speech present and Reports weakness Psych Reports anxiety Endo Reports fatigue Aller/Immun Denies throat swelling and Denies tongue swelling Physical Exam Vital Signs: Last Vital Signs Pulse 96 11/11/24 09:14 BP 110/58 L 11/11/24 09:14 Pulse Ox 95 11/11/24 09:14 Oxygen Delivery Method Room Air 11/11/24 09:14 Const General: cooperative, well developed, in distress moderate, severe and other, ill appearing acutely, tired appearing and well groomed Nutritional Appearance: well nourished and obese Orientation/consciousness: oriented to person, oriented to place and oriented to time Limitations: language barrier and wheelchair HEENT Head: Yes normocephalic and Yes atraumatic Eyes General: appearance normal, both eyes and all related structures Pupils: Equal, round and reactive pupils present Neck Neck: Yes normal visual inspection and Yes no lymphadenopathy Thyroid: Thyroid normal Resp Effort & Inspection: normal respiratory effort and able to speak in complete sentences Auscultation: clear to auscultation bilaterally Cardio Rate: regular rate Rhythm: regular rhythm Heart sounds: Normal, physiologic split S2 sound present Peripheral pulses: radial pulses present and posterior tibial pulses present GI Inspection: No distended, Yes Abdominal panniculus present and Yes obesity Palpation (GI): Soft to palpation, Tenderness to palpation present (GI) (Diffusely), no guarding, not rigid and No hepatosplenomegaly present Percussion: Yes normal to percussion Auscultation: normal bowel sounds Rectal Exam - Female: deferred Skin General skin exam: no rashes or lesions noted, turgor normal, skin not dry, no jaundice, No spider nevi and no striae Rashes: no rashes Nails: normal Neuro General: oriented to person, oriented to place and oriented to time Cranial nerves: Yes Equal, round and reactive pupils present and Yes Normal hearing present Speech: No Abnormal speech present Extrem General: Yes normal to inspection, No clubbing, No cyanosis and No edema Psych Appearance: grossly normal and disheveled Mental Status: mental status grossly normal Speech and movement: Slowed speech present (Psych) Affect: Blunted affect present Attitude: cooperative Thought process: not confabulating and Impoverished thought process present Thought content: Normal thought content present Insight: Poor insight present (Psych) Judgement: Poor judgement present (Psych) Assessment & Plan Assessment & Plan (1) GERD (gastroesophageal reflux disease): Code(s): K21.9 - Gastro-esophageal reflux disease without esophagitis Category: Medical (2) Chronic idiopathic constipation: Code(s): K59.04 - Chronic idiopathic constipation Category: Medical (3) VAZQUEZ (nonalcoholic steatohepatitis): Comment: HER liver enzymes are not terribly deranged this can be monitored by her primary care provider at 6 month intervals and she can be return to our service for surveillance if the transaminases become greater than twice the upper limit of normal BASELINE LABS 03/13/22 Plt Count 258 Estimated GFR > 60 Ferritin 43 Total Bilirubin 0.8 AST 179 H ALT 108 H Alkaline Phosphatase 106 D 04/16/22 Plt Count 267 Hemoglobin A1c % 6.2 Ferritin 21 Total Bilirubin 0.5 GGT 149 H AST 71 H ALT 58 H Anti-Mitochondrial Ab NEGATIVE Anti-Smooth Muscle Ab <20 Hepatitis A IgM Ab Nonreactive Hep Bs Antigen Negative Hep Bs Antibody NONREACTIVE Hep B Core Total Ab Nonreactive Hepatitis C Ab (EIA) Nonreactive HIV 1&2 Ab/P24 Ag 4thGn Nonreactive She does not drink ETOH ULTRASOUND THE ABDOMEN WITH ELASTOGRAPHY (F0-F1) Laboratory Tests 09/30/2503/18/25 10:5908:24 Estimated GFR > 60 Ferritin 304 H Total Bilirubin 0.5 Direct Bilirubin 0.2 AST 403 H ALT 368 H Alkaline Phosphatase 104 Lactate Dehydrogenase 527 H Amylase 61 Lipase 18 ZEINAB Screen POSITIVE A Hepatitis A IgM Ab Nonreactive Hep Bs Antigen Negative Hep Bs Antibody NONREACTIVE Hep B Core Total Ab Nonreactive Hepatitis C Ab (EIA) Nonreactive Monoscreen Negative HIV 1&2 Ab/P24 Ag 4thGn Nonreactive ULTRASOUND OF THE ABDOMEN 02/19/23 IMPRESSION: 1. There is generalized increase in hepatic echotexture, consistent with fatty infiltration or hepatocellular disease. Please correlate clinically. No focal hepatic mass or intrahepatic biliary dilatation is seen. 2. The gallbladder is surgically absent. 3. Technically limited ultrasound examination of the pancreas and abdominal great vessels. Code(s): K75.81 - Nonalcoholic steatohepatitis (VAZQUEZ) Category: Medical (4) Intractable nausea and vomiting: Code(s): R11.2 - Nausea with vomiting, unspecified Category: Medical (5) Abdominal pain: Code(s): R10.9 - Unspecified abdominal pain Category: Medical Qualifiers: Abdominal location: right lower quadrant Qualified Code(s): R10.31 - Right lower quadrant pain Plan NIUEAN #Natalee Live (HOLD: monteleukast, rosuvastatin, entresto, metoprolol, reglan, metformin, losaartan, as a consideration for something that could be affecting her liver enzymes? ?) She says she was seen in the ER but what she actually means is that she was seen at the [facility] walk in clinic. She says they only focused on her hand and did nothing else. Get, the metoclopramide at maximum dose of 10 mg is not helping her. SHe is slumped over in a chair and is dry heaving today. She has been vomiting for 4-5 days. This was of sudden onset. She is also very dizzy and weak. She says she has been able to take her metoclopramide but not many of her other medications. She seems to be acutely ill, so I have my staff take her down to the ER for acute work up and treatment. Of concern in the long run is she is has triple digit and apparently rising transaminases, and actually her alk-phos has bumped 40 points. Yet, her pancreatic enzymes seem to be normal. At the time I noticed the initial BUN by did a hepatitis AB and C panel that was negative, she has a positive ZEINAB but it is a low 1-80 titer and is more common for connective tissue disorder then autoimmune liver disease. Also in the past her AMA and SMA antibodies were normal. It is possible may need to consider liver biopsy. She is on multiple meds that could be driving this including her statin, her Farxiga and her Trulicity. At 1st I think we need to see what the ER comes up with. We call her for a follow-up depending on the outcome of her emergency presentation. Coding Level of Care Code Est Pt Level 3 (13371) Diagnoses GERD (gastroesophageal reflux disease) K21.9 Chronic idiopathic constipation K59.04 VAZQUEZ (nonalcoholic steatohepatitis) K75.81 Intractable nausea and vomiting R11.2 Abdominal pain R10.31 Abdominal location: right lower quadrant
[2024-11-11 09:14] VITALS: BP 110/58; PULSE 96; O2SAT 95
== END 2024-11-11 09:50 | disposition home or self-care (01) ==
LOC: HO.HGI 08:51
PROVIDERS: PCP Internal Medicine; Visit Provider Nurse Practitioner
DX: K21.9 Gastro-esophageal reflux disease without esophagitis (principal); K59.04 Chronic idiopathic constipation; K75.81 Nonalcoholic steatohepatitis (NASH); R11.2 Nausea with vomiting, unspecified; R10.31 Right lower quadrant pain
CPT/HCPCS: 99213

== ENCOUNTER 2024-11-11 09:52 | Inpatient (IN) | payer OTHER, SELFPAY ==
--- NOTE | ~2024-11-11 | CT_ITS ---
EXAMINATION: CT ABDOMEN PELVIS WITH IV CONTRAST HISTORY: abdominal pain, constipation, vomiting hx of gastric bypass COMPARISON: Comparison is made with the prior examination dated 06/26/2021. TECHNIQUE: CT scan of the abdomen and pelvis was performed following administration of 85 mL Omnipaque 350 using standard departmental protocol. Coronal and sagittal reformatted images were generated and reviewed. Oral contrast material was not administered at the request of the referring physician. This CT exam was performed with one or more of the following dose reduction techniques: automated exposure control, adjustment of the mA and/or kV according to patient size, use of iterative reconstruction technique. DLP: 499 mGy-cm FINDINGS: LOWER CHEST: There is dependent atelectasis at both lung bases. There is no pleural effusion. CARDIOVASCULATURE: The heart is normal in size. There is no pericardial effusion. LIVER: The liver is normal in size and contour. No liver mass is identified. The hepatic and portal veins are patent. GALLBLADDER / BILE DUCTS: The patient is status post cholecystectomy. Again seen is mild intra and extrahepatic biliary ductal dilatation without significant change. SPLEEN: The spleen is normal in size. No focal splenic lesion is identified. PANCREAS: The pancreas is atrophic. ADRENAL GLANDS: Within normal limits. KIDNEYS/RETROPERITONEUM: No renal calculi are identified. There is no hydronephrosis. No renal masses are identified. LYMPH NODES: No abdominal or pelvic lymphadenopathy. VASCULATURE: The abdominal aorta demonstrates atherosclerotic calcification, but is normal in caliber. MESENTERY/PERITONEUM: No free fluid. No masses. There is no free intraperitoneal gas. STOMACH: There is a small hiatal hernia. The patient is status post gastric bypass procedure. SMALL BOWEL: There is a small bowel anastomosis in the left mid abdomen. Abnormal focal wall thickening is seen in this region (series 3, image 32 and series 5, image 31). There is no evidence of small bowel obstruction. COLON: There is a large amount of stool throughout the colon. APPENDIX: Normal. URINARY BLADDER/PELVIC ORGANS: The urinary bladder is unremarkable. There are vascular calcifications of the uterus. BONES / SOFT TISSUES: No suspicious bony or soft tissue abnormalities. CT/CT abdomen pelvis w IV con IMPRESSION: 1. Abnormal small bowel wall thickening adjacent to an anastomosis in the left midabdomen. Neoplasm in this region is not excluded. 2. Large amount of stool throughout the colon. Electronically signed by: Frank Andersen MD 11/11/2024 01:46 PM EDT RP
--- NOTE | ~2024-11-11 | XR_ITS ---
EXAMINATION: XR CHEST CLINICAL INFORMATION: chest pain COMPARISON: 03/31/2024. TECHNIQUE: Frontal view of the chest was obtained. FINDINGS: The cardiac, hilar, and mediastinal contours are normal. Aortic mural calcifications. The lungs are clear bilaterally. No pneumothorax or effusion. No focal osseous or soft tissue abnormality. Mild spinal degenerative changes. XR/XR chest 1V IMPRESSION: No active pulmonary disease. Electronically signed by: Chris Adames MD 11/11/2024 10:35 AM EDT
--- NOTE | ~2024-11-11 | MR_ITS ---
CLINICAL HISTORY: Dilated CBD MR of the abdomen without contrast. MRCP was also performed. No comparison imaging. Findings: There is motion artifact. Question previous gastric bypass. There is prominent stool in the visualized portion of the colon. Suspect previous cholecystectomy. The common bile duct measures 10 mm. No choledocholithiasis is identified. The pancreatic duct is nondilated. There are several small cystic lesions in the pancreas measuring up to 3 mm. There is diffuse pancreatic atrophy. Impression: Suspect previous cholecystectomy. Diameter of the common bile duct with is within normal limits in the setting. Small cystic lesions in the pancreas are likely incidental. If clinically warranted consider comparison to previous or follow-up MR to assess for long-term stability. This document has been electronically signed by: Gonzalo Dougherty MD on 11/14/2024 17:19:50
[2024-11-11 09:57] VITALS: BP 130/64; PULSE 89; RESP 20; TEMP 36.2; O2SAT 97; BMI 25.4
--- NOTE | 2024-11-11 10:04 | ECG_ITS ---
Test Reason : CHEST PAIN Blood Pressure : */* mmHG Vent. Rate : 92 BPM Atrial Rate : 92 BPM P-R Int : 146 ms QRS Dur : 80 ms QT Int : 378 ms P-R-T Axes : 52 15 18 degrees QTcB Int : 467 ms Normal sinus rhythm Normal ECG When compared with ECG of 31-Mar-2024 09:10, QT has lengthened Referred By: Generic ED Physician Electronically Signed By: CINDY WASHINGTON MD
[2024-11-11 10:43] LABS: MANUAL DIFF FLAG NO
[2024-11-11 10:47] LABS: Basophils Percent Auto 0.4 % (0-2); Eosinophils Absolute Auto 0.3 X10*3/uL (0.0-0.4); Eosinophils Percent Auto 3.4 % (0-4); Hemoglobin 11.9 g/dl (12.0-16.0); Imm Gran Abs Auto 0.03 X10*3/uL (0.00-0.03); Imm Gran Pct Auto 0.3 % (0.0-0.4); Lymphocytes Absolute Auto 2.2 X10*3/uL (1.2-4.9); Lymphocytes Percent Auto 22.9 % (20-40); Mean Corpuscular HGB Conc 32.2 g/dl (31.0-35.0); Mean Corpuscular Volume 93.2 fL (80.0-98.0); Monocytes Absolute Auto 0.6 X10*3/uL (0.1-1.2); Monocytes Percent Auto 6.3 % (2-11); Neutrophils Absolute Auto 6.3 x10*3/uL (2.0-8.3); Neutrophils Percent Auto 66.7 % (45-73); Platelet Count 256 X10*3/uL (160-400); Red Blood Count 3.97 X10*6/uL (4.20-5.50); Red Cell Distribution Width 15.4 % (11.0-16.0); White Blood Count 9.4 X10*3/uL (4.8-10.8)
[2024-11-11 11:03] LABS: Alanine Aminotransferase 102 U/L (0-31); Albumin Level 3.9 g/dL (3.5-5.0); Alkaline Phosphatase 146 U/L (39-117); Anion Gap 13 (12-20); Aspartate Amino Transferase 550 U/L (5-31); Bilirubin Direct 0.2 mg/dL (0.0-0.5); Bilirubin Total 0.5 mg/dL (0.0-1.0); Blood Urea Nitrogen 15 mg/dL (9-16); Calcium 9.1 mg/dL (8.4-10.2); Carbon Dioxide 22 mmol/L (22-29); Chloride 109 mmol/L (96-108); Creatinine Clr Calc Pharmacy 47.4; Estimated Glomerular Filt Rate > 60; Glucose Random 166 mg/dL (60-115); Lipase 9 U/L (8-78); Potassium 3.6 mmol/L (3.3-5.1); Sodium 140 mmol/L (135-145); Total Protein 6.6 g/dL (6.5-8.0)
--- NOTE | 2024-11-11 11:04 | ED.CHESTPAIN ---
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 No passing of flatus today. She notes she is taking all of her medications as prescribed. She was seen in GI office today who noted a rise in her LFTs and her pain n/v referred to ED. She feels mildly short of breath but no fevers/cough and no dysuria. She denies GIB symptoms. She notes she tried nitro SL last night with minimal relief. Has had 10lb weight loss unintentional in the last few months. MD complaint: chest pain (abd pain) Onset (ago): day(s) (3) Timing of current episode: constant Prior episodes: Yes Onset: during rest Pain location: substernal and epigastric Pain radiation: none Severity: moderate Quality: burning Relieving factors: nothing Exacerbating factors: eating Context: other Associated symptoms: nausea, vomiting and other (dyspnea) Treatment prior to arrival: nitroglycerin Related Data Home Medications ?Medication ?Instructions ?Recorded ?Confirmed ascorbic acid (vitamin C) 500 mg 500 mg PO BID 07/17/20 05/16/24 tablet (Vitamin C) aspirin 81 mg tablet,delayed 81 mg PO DAILY 07/17/20 05/16/24 release montelukast 10 mg tablet 10 mg PO BEDTIME 08/10/20 05/16/24 blood sugar diagnostic #10 ea 09/12/20 05/16/24 clonazepam 1 mg tablet 1 mg PO TID PRN Anxiety 09/12/20 05/16/24 dulaglutide 0.75 mg/0.5 mL 0.75 mg subcut QWEEK 09/12/20 05/16/24 subcutaneous pen injector lancets 33 gauge #100 ea 09/12/20 05/16/24 metformin 500 mg tablet,extended 500 mg PO BID 09/12/20 05/16/24 release 24 hr estradiol 0.01% (0.1 mg/gram) 1 g vaginal 3XW 10/11/20 05/16/24 vaginal cream zolpidem 10 mg tablet 1 tab PO BEDTIME 03/20/21 05/16/24 albuterol sulfate 90 mcg/actuation 0 mcg inhalation DAILY 12/02/21 05/16/24 aerosol inhaler (Ventolin HFA) mupirocin 2 % topical ointment 1 appl topical TID 12/02/21 05/16/24 rosuvastatin 40 mg tablet 40 mg PO DAILY 12/02/21 05/16/24 ipratropium 0.5 mg-albuterol 3 mg 3 ml inhalation QID 12/17/21 05/16/24 (2.5 mg base)/3 mL nebulization soln multivitamin-ferrous 1 tab PO DAILY 12/17/21 05/16/24 fumarate-folic acid 18 mg-400 mcg tablet (Certavite-Antioxidant) diclofenac sodium 1 % topical gel 1 g topical BID 02/11/22 05/16/24 methenamine hippurate 1 gram tablet 1 g PO DAILY 02/11/22 05/16/24 furosemide 20 mg tablet 20 mg PO DAILY 05/27/22 05/16/24 amlodipine 10 mg tablet 10 mg PO QAM 10/09/22 05/16/24 metoprolol succinate 50 mg 50 mg PO DAILY 10/09/22 05/16/24 tablet,extended release 24 hr gabapentin 600 mg tablet 600 mg PO TID 11/04/22 05/16/24 CPAP (CPAP Machine/Device) 03/24/23 05/16/24 CPAP (CPAP Machine/Device) 07/31/23 05/16/24 levothyroxine 125 mcg tablet 125 mcg PO DAILY 07/31/23 05/16/24 dapagliflozin propanediol 10 mg 10 mg PO DAILY 09/30/23 05/16/24 tablet (Farxiga) losartan 25 mg tablet 25 mg PO DAILY 09/30/23 05/16/24 sacubitril 24 mg-valsartan 26 mg 1 tab PO BID 09/30/23 05/16/24 tablet (Entresto) ticagrelor 90 mg tablet (Brilinta) 90 mg PO BID 09/30/23 05/16/24 isosorbide mononitrate 30 mg 30 mg PO DAILY 03/24/24 05/16/24 tablet,extended release 24 hr topiramate 25 mg tablet 25 mg PO DAILY 03/24/24 05/16/24 venlafaxine 75 mg capsule,extended 75 mg PO DAILY 09/29/24 release 24 hr nitroglycerin 0.3 mg sublingual 0.3 mg sublingual DIRECTED 11/11/24 tablet Previous Rx's ?Medication ?Instructions ?Recorded cholecalciferol (vitamin D3) 50 50 mcg PO DAILY 30 days #30 caps 07/23/20 mcg (2,000 unit) capsule meclizine 12.5 mg tablet 12.5 mg PO TID PRN dizziness #20 03/20/21 tabs lidocaine 5 % topical patch 1 patch topical DAILY 30 days #30 11/01/21 ea ferrous sulfate 325 mg (65 mg 325 mg PO DAILY #90 tabs 04/01/22 iron) tablet (iron) budesonide-formoterol HFA 160 2 puff inhalation BID 30 days 03/24/23 mcg-4.5 mcg/actuation aerosol #10.2 grams inhaler (Symbicort) cyanocobalamin (vitamin B-12) 1,000 mcg PO DAILY 06/16/23 1,000 mcg tablet fluticasone fur. 200 mcg-umeclid 1 inh inhalation DAILY 30 days #60 03/29/24 62.5 mcg-vilant 25 mcg ea inhalat.powder (Trelegy Ellipta) lorazepam 1 mg tablet (Ativan) 1 mg PO ONCE anxiety #1 tab 04/01/24 acetaminophen 325 mg tablet 650 mg (2 x 325 mg) PO Q6H PRN 04/21/24 fever or pain 14 days #120 tabs tramadol 50 mg tablet 50 mg PO QID #120 tabs 08/15/24 folic acid 1 mg tablet 1 mg PO DAILY #90 tabs 09/13/24 bisacodyl 5 mg tablet,delayed 15 mg (3 x 5 mg) PO BEDTIME 30 09/29/24 release (Dulcolax (bisacodyl)) days #90 tabs lactulose 20 gram/30 mL oral 20 g (30 mL) PO TID #3,000 mL 09/29/24 solution linaclotide 290 mcg capsule 290 mcg PO QAM #30 caps 09/29/24 (Linzess) cibevu-rkmeheic-vlddkbg 24,000 cap PO BID #120 caps 09/29/24 24,000-76,000-120,000 unit capsule,delayed rel (Creon) metoclopramide HCl 10 mg tablet 10 mg PO QID #120 tabs 09/29/24 pantoprazole 40 mg tablet,delayed 40 mg PO BID #60 tabs 09/29/24 release simethicone 180 mg capsule (Gas 180 mg PO QID #120 ea 09/29/24 Relief (simethicone)) famotidine 20 mg tablet 20 mg PO DAILY #30 tabs 10/13/24 imipramine HCl 10 mg tablet 20 mg (2 x 10 mg) PO BEDTIME 30 10/14/24 days #60 tabs Allergies Allergy/AdvReac Type Severity Reaction Status Date / Time No Known Allergies Allergy Verified 11/11/24 10:01 [No Known Allergies*] Review of Systems Review of Systems: Constitutional : No Weight loss, No Fever, No Chills ENT/Mouth : No sore throat, No Rhinorrhea Eyes: No Swelling, No Redness Cardiovascular : pos Chest Pain, pos SOB, NoEdema Respiratory : No Cough, No Sputum, No Wheezing Gastrointestinal : Positive Nausea, Positive Vomiting, no Diarrhea, positive abdominal Pain, No Hematochezia, No Melena Genitourinary : No Dysuria, No Urinary Frequency, No Hematuria, No Urgency Musculoskeletal : No joint pain, No Myalgias, No Joint Swelling Skin : No Skin Lesions, No rash Neuro : No Weakness, No Numbness, No Dizziness, No Headache Psych : No Anxiety/Panic, No Depression All other systems reviewed and are negative. [facility] Past Medical History Attestation statement: The following information was validated with the patient. Source: old records reviewed Medical History (Updated 11/11/24 @ 14:00 by Zuly Almonte DO) Abdominal pain Dysuria Myocardial infarction Left hip pain Sacroiliac joint pain Elevated liver enzymes Right knee pain Left lumbar radiculitis Lumbago with sciatica Sepsis Right anterior knee pain Nausea and vomiting Candidiasis of mouth and esophagus Medication monitoring encounter Abnormal findings on diagnostic imaging of musculoskeletal system Asthma ANGIE (obstructive sleep apnea) Diabetes Esophageal dysmotilities Esophageal candidiasis Pneumonia Cystitis Recurrent UTI (urinary tract infection) Vitamin D deficiency Hypothyroidism Osteoporosis B12 deficiency Iron deficiency anemia IBS (irritable bowel syndrome) Surgical History H/O hand surgery H/O heart surgery Hx of gastric bypass History of esophagogastroduodenoscopy (EGD) Hx of colonoscopy History of arthroscopy of left shoulder Family History Family History Father No problems noted. 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 Oriented X3. No acute distress. Eyes: Pupils equal, round and reactive to light. ENT: Pharynx normal. Neck: Normal inspection. Neck supple. CVS: Normal heart rate and rhythm. Pulses normal. Respiratory: No respiratory distress. Breath sounds normal. Abdomen: Soft with moderate diffuse ttp no rebound Skin: Skin warm and dry. Normal skin color. Normal skin turgor. Extremities: No lower extremity edema. No calf ttp Neuro: Oriented X 3. No motor deficit. No sensory deficit. CN2-12 intact Medications Administered Discontinued Medications Generic Name Dose Route Start Last Admin Trade Name Freq PRN Reason Stop Dose Admin Lactated Ringer's 1,000 mls @ 999 mls/hr 11/11/24 11:12 11/11/24 12:23 Lr IV 11/11/24 12:12 999 mls/hr .Q1H1M ONE Administration Iohexol 100 ml 11/11/24 13:17 11/11/24 13:18 Iohexol 350 Mg/Ml 100 Ml Infus..Btl IV 11/11/24 13:18 85 ml ONCE ONE Administration Morphine Sulfate 4 mg 11/11/24 11:12 11/11/24 12:22 Morphine Sulfate 4 Mg/Ml Cartridge IVPUSH 11/11/24 11:13 4 mg ONCE ONE Administration Protocol Ondansetron HCl 4 mg 11/11/24 11:12 11/11/24 12:22 Ondansetron Hcl 4 Mg/2 Ml Vial IVPUSH 11/11/24 11:13 4 mg ONCE ONE Administration Pantoprazole Sodium 40 mg 11/11/24 11:12 11/11/24 12:22 Pantoprazole Sodium 40 Mg/10 Ml Vial IVPUSH 11/11/24 11:13 40 mg ONCE ONE Administration Medical Decision Making Medical Decision Making [facility] Narrative: 73 yo female with PMH of DM, ANGIE, asthma, dysphagia, UTI, VAZQUEZ, gastric bypass, CAD s/p stent in 2003, hypothyroidism here with c/o burning chest pain and abdominal pain with n/v x 3 days she has no fevers, no GIB symptoms, denies dysuria. She has pain that is more suggestive of a GI pathology but given her CAD risk she will get EKG, trop x 1 as pain present x 3 days. She has no tachycardia, signs of DVT, hypoxia to suggest VTE. Suspect SBO, gastritis, esophagitis, pancreatitis, pathology related to gastric bypass, atypical ACS Differential Diagnosis Differential Diagnoses: The differential diagnosis associated with the presentation includes atypical chest pain, SBO, gastritis, esophagitis, pancreatitis, Admission/Observation Consideration of admission/observation: Escalation of care including admission/observation considered admit for intractable n/v as well as change in LFTs and possible SB mass with repeat visits to GI Consult Healthcare Provider Management of the patient was discussed with: Hospitalist (will admit) Lab Data [facility] Lab Attestation statement: I reviewed the patient's lab results. 11/11/24 10:18 11/11/24 10:18 Labs: Lab Results 11/11/24 Range/Units 10:18 WBC 9.4 (4.8-10.8) X10*3/uL RBC 3.97 L (4.20-5.50) X10*6/uL Hgb 11.9 L (12.0-16.0) g/dl Hct 37.0 (37.0-47.0) % MCV 93.2 (80.0-98.0) fL MCH 30.0 (27.0-33.0) pg MCHC 32.2 (31.0-35.0) g/dl RDW 15.4 (11.0-16.0) % Plt Count 256 (160-400) X10*3/uL MPV 11.0 (9.4-12.3) fL Immature Gran % (Auto) 0.3 (0.0-0.4) % Neut % (Auto) 66.7 (45-73) % Lymph % (Auto) 22.9 (20-40) % Shelby % (Auto) 6.3 (2-11) % Eos % (Auto) 3.4 (0-4) % Baso % (Auto) 0.4 (0-2) % Lymph # (Auto) 2.2 (1.2-4.9) X10*3/uL Shelby # (Auto) 0.6 (0.1-1.2) X10*3/uL Eos # (Auto) 0.3 (0.0-0.4) X10*3/uL Baso # (Auto) 0.0 (0.0-0.2) X10*3/uL Abs Immat Gran (auto) 0.03 (0.00-0.03) X10*3/uL Absolute Neuts (auto) 6.3 (2.0-8.3) x10*3/uL Absolute Nucleated RBC 0.000 (0.0-0.012) X10*3/uL Nucleated RBC % (auto) 0.0 (0.0-0.2) /100WBC Sodium 140 (135-145) mmol/L Potassium 3.6 (3.3-5.1) mmol/L Chloride 109 H (96-108) mmol/L Carbon Dioxide 22 (22-29) mmol/L Anion Gap 13 (12-20) BUN 15 (9-16) mg/dL Creatinine 0.86 (0.5-1.4) mg/dL Estim Creat Clear Calc 47.4 Estimated GFR > 60 Random Glucose 166 H (60-115) mg/dL Calcium 9.1 D (8.4-10.2) mg/dL Total Bilirubin 0.5 (0.0-1.0) mg/dL Direct Bilirubin 0.2 (0.0-0.5) mg/dL AST 550 H (5-31) U/L ALT 102 H (0-31) U/L Alkaline Phosphatase 146 H (39-117) U/L Troponin I High Sens < 2.7 D (<3.5-17.0) ng/L Total Protein 6.6 (6.5-8.0) g/dL Albumin 3.9 (3.5-5.0) g/dL Lipase 9 (8-78) U/L Independent Interpretation I performed an independent interpretation of an: EKG, Plain X-Ray (normal ) and CT Scan (abnormal possible SB mass) Interpretation: Rate: 92 Rhythm: NSR Ross: Normal P waves. Normal SOHA. Normal QRS complex. ST T wave : inverted t waves III and V3, no JORY qTC: 467 prior studies: new T wave inversions The study has been interpreted contemporaneously by me. . Radiology Impression Discussion of test interpretation with radiology: I have reviewed the radiologist's reading. External Record Review External record reviewed: Inpatient record and Outpatient record Critical Care Time Critical Care Time Critical Care Time: Yes Total Critical Care Time: 35 Attestation: Time is exclusive of separately billable procedures. Time includes: direct patient care, patient reassessment, coordination of patient care, interpretation of data (laboratory data, pulse oximetry, CT scans, review of patient's medical records, medical consultation and documentation of patient care. Repeat IV morphine with some improvement in pain. Procedures excluded from critical care time: electrocardiography. I attest to this time spent taking care of the patient Discharge Plan Discharge Clinical Impression: Abnormal transaminases, Abdominal pain, Atypical chest pain, Abnormal CT scan Patient Disposition: Admitted As Inpatient Print Language: Bahamian
[2024-11-11 11:06] LABS: Troponin-I High Sensitivity < 2.7 ng/L (<3.5-17.0)
[2024-11-11 11:14] VITALS: BP 120/54; PULSE 73; RESP 16; O2SAT 99
--- NOTE | 2024-11-11 11:42 | PC.NURSE ---
Addendum entered by Mabel Merrill RN 11/11/24 11:44: 73 yo female with PMH of DM, ANGIE, asthma, dysphagia, UTI, VAZQUEZ, gastric bypass, CAD s/p stent in 2003, hypothyroidism here with c/o sternal to belly button pain x 2 to 3 days with poor PO intake, burning pain, n/v and constipation. No passing of flatus today. She notes she is taking all of her medications as prescribed. She was seen in GI office today who noted a rise in her LFTs and her pain n/v referred to ED. She feels mildly short of breath but no fevers/cough and no dysuria. She denies GIB symptoms. She notes she tried nitro SL last night with minimal relief. Patient alert and oriented, primarily estonian speaking. Lungs essentially clear. Respirations even and non-labored. Abdomen soft, with positive bowel sounds. c/o epigatric pain. Wrist cock-up splint noted to left side. Positive pedal pulses with no edema noted. Original Note: Medical History Dysuria Myocardial infarction Left hip pain Sacroiliac joint pain Elevated liver enzymes Right knee pain Left lumbar radiculitis Lumbago with sciatica Sepsis Right anterior knee pain Nausea and vomiting Candidiasis of mouth and esophagus Medication monitoring encounter Abnormal findings on diagnostic imaging of musculoskeletal system Asthma ANGIE (obstructive sleep apnea) Diabetes Esophageal dysmotilities Esophageal candidiasis Pneumonia Cystitis Recurrent UTI (urinary tract infection) Vitamin D deficiency Hypothyroidism Osteoporosis B12 deficiency Iron deficiency anemia IBS (irritable bowel syndrome)
[2024-11-11 12:00] VITALS: BP 121/53; PULSE 78; RESP 14; O2SAT 98
[2024-11-11] MEDS: Morphine Sulfate 4 MG/ML CARTRIDGE IVPUSH ×2 (12:22→14:11)
[2024-11-11] MEDS: ondansetron HCL 4 MG/2 ML VIAL IVPUSH ×2 (12:22→14:11)
[2024-11-11] MEDS: Pantoprazole Sodium 40 MG/10 ML VIAL IVPUSH (12:22)
[2024-11-11] MEDS: Lactated Ringers 1,000 ML 999 ML IV (12:23)
[2024-11-11] MEDS: iohexoL 350 MG/ML 100 ML INFUS..BTL IV (13:18)
[2024-11-11 14:00] VITALS: BP 127/59; PULSE 78; RESP 14; O2SAT 100
--- NOTE | 2024-11-11 14:10 | PM.IMHP ---
History of Present Illness Date of Service: 11/11/24 Chief Complaint: abd pain, intractable vomiting A 73 years old lady with PMH of type II DM, asthma, VAZQUEZ, Hx Gastric vypass, CAD s\p PCI 2003, hypothyroid among others who presented to ED complaininf of abdominal and chest pain for the last 3 days. She was unable to tolerate food or drink with severe burning sensation associated with nausea and vomiting. no reported hematemesis or melena. No chest pain, palpitations, SOB, diarrhea or urinary symptoms. She reports weight loss of almost 10 lbs last 3-4 months. She was noted to have progressive transaminitis by GI provider and asked to come to ED for further work up and evaluation. In ED had a CT scan of abdomen showing signfiicant constipation and Abnormal small bowel wall thickening adjacent to an anastomosis in the left midabdomen. Neoplasm in this region is not excluded. she will be admitted for further evalaution and possible GI intervention. Review of Systems Review of Systems: No fever, chills but has generalized weakness No chest pain, palpitation No shortness of breath or coughing having abdominal pain, with nausea or vomiting No urinary symptoms No any rash or wounds PMFSH Medical History Abdominal pain Dysuria Myocardial infarction Left hip pain Sacroiliac joint pain Elevated liver enzymes Right knee pain Left lumbar radiculitis Lumbago with sciatica Sepsis Right anterior knee pain Nausea and vomiting Candidiasis of mouth and esophagus Medication monitoring encounter Abnormal findings on diagnostic imaging of musculoskeletal system Asthma ANGIE (obstructive sleep apnea) Diabetes Esophageal dysmotilities Esophageal candidiasis Pneumonia Cystitis Recurrent UTI (urinary tract infection) Vitamin D deficiency Hypothyroidism Osteoporosis B12 deficiency Iron deficiency anemia IBS (irritable bowel syndrome) Family History Father No problems noted. Mother Stomach cancer Diabetes mellitus CVD (cardiovascular disease) Heart attack Arthritis of knee Sister COVID-19 Paternal Aunt Cancer Maternal Aunt Cancer Paternal Uncle Cancer Surgical History H/O hand surgery H/O heart surgery Hx of gastric bypass History of esophagogastroduodenoscopy (EGD) Hx of colonoscopy History of arthroscopy of left shoulder Social History Household Members: Spouse Housing: House Are you a primary respiratory care technician to a significant other at home: No Do you presently have visiting nurse or other home services: Yes (SENIOR OFFICER.) Alcohol intake: never 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 If so, by whom?: No Do you feel safe in your current relationship?: Yes Is there a partner from a previous relationship who is making you feel unsafe now?: No Are you made to feel afraid or neglected: No Denominational Healthcare Practices: Hinduism. Advance Directives: No Advance Directives Information Provided: Yes Do you have a plan to hurt others: No Plan Recently lost weight without trying: Yes How much weight loss: 2-13 pounds Eating poorly because of decreased appetite: Yes Nutrition screen score: 4 Nutrition Risks: Poor intake 0-25% >4 days Patient : No : No Poor oral hygiene: No service: No Current occupational status: disabled Meds Allergies Allergy/AdvReac Type Severity Reaction Status Date / Time No Known Allergies Allergy Verified 11/11/24 10:01 [No Known Allergies*] Home Medications ?Medication ?Instructions ?Recorded ?Confirmed ?Last Taken ?Type ascorbic acid (vitamin C) 500 mg 500 mg PO BID 07/17/20 11/11/24 11/10/24 History tablet (Vitamin C) aspirin 81 mg tablet,delayed 81 mg PO DAILY 07/17/20 11/11/24 11/10/24 History release montelukast 10 mg tablet 10 mg PO BEDTIME 08/10/20 11/11/24 11/10/24 History blood sugar diagnostic #10 ea 09/12/20 05/16/24 Unknown History clonazepam 1 mg tablet 1 mg PO BID PRN Anxiety 09/12/20 11/11/24 Unknown History dulaglutide 0.75 mg/0.5 mL 0.75 mg subcut MO 09/12/20 11/11/24 11/07/24 History subcutaneous pen injector lancets 33 gauge #100 ea 09/12/20 05/16/24 Unknown History metformin 500 mg tablet,extended 500 mg PO BID 09/12/20 11/11/24 11/10/24 History release 24 hr albuterol sulfate 90 mcg/actuation 2 inh inhalation Q4H PRN Shortness 12/02/21 11/11/24 Unknown History aerosol inhaler (Ventolin HFA) Of Breath Or Wheezing rosuvastatin 40 mg tablet 40 mg PO DAILY 12/02/21 11/11/24 11/10/24 History multivitamin-ferrous 1 tab PO DAILY 12/17/21 11/11/24 11/10/24 History fumarate-folic acid 18 mg-400 mcg tablet (Certavite-Antioxidant) diclofenac sodium 1 % topical gel 1 g topical BID PRN Pain 02/11/22 11/11/24 Unknown History metoprolol succinate 50 mg 50 mg PO DAILY 10/09/22 11/11/24 11/10/24 History tablet,extended release 24 hr gabapentin 600 mg tablet 600 mg PO TID 11/04/22 11/11/24 11/10/24 History CPAP (CPAP Machine/Device) 03/24/23 05/16/24 Unknown History CPAP (CPAP Machine/Device) 07/31/23 05/16/24 Unknown History levothyroxine 125 mcg tablet 125 mcg PO DAILY@0600 07/31/23 11/11/24 11/10/24 History dapagliflozin propanediol 10 mg 10 mg PO DAILY 09/30/23 11/11/24 11/10/24 History tablet (Farxiga) ticagrelor 90 mg tablet (Brilinta) 90 mg PO BID 09/30/23 11/11/24 11/10/24 History isosorbide mononitrate 30 mg 30 mg PO DAILY 03/24/24 11/11/24 11/10/24 History tablet,extended release 24 hr topiramate 25 mg tablet 25 mg PO DAILY 03/24/24 11/11/24 11/10/24 History venlafaxine 75 mg capsule,extended 75 mg PO DAILY 09/29/24 11/11/24 11/10/24 History release 24 hr bisacodyl 5 mg tablet,delayed 15 mg PO BEDTIME PRN Constipation 11/11/24 11/11/24 Unknown History release (Dulcolax (bisacodyl)) clotrimazole 1 % topical cream 1 appl topical DAILY 11/11/24 11/11/24 11/10/24 History lactulose 10 gram/15 mL oral 30 ml PO TID PRN Constipation 11/11/24 11/11/24 11/10/24 History solution linaclotide 290 mcg capsule 290 mcg PO DAILY 11/11/24 11/11/24 11/10/24 History (Linzess) mirtazapine 7.5 mg tablet 7.5 mg PO BEDTIME 11/11/24 11/11/24 11/10/24 History nitroglycerin 0.3 mg sublingual 0.3 mg sublingual DIRECTED 11/11/24 11/11/24 11/10/24 History tablet nystatin 100,000 unit/gram topical 1 appl topical BID 11/11/24 11/11/24 11/10/24 History powder pantoprazole 40 mg tablet,delayed 40 mg PO BID@0630,1630 11/11/24 11/11/24 11/10/24 History release venlafaxine 150 mg 150 mg PO DAILY 11/11/24 11/11/24 11/10/24 History capsule,extended release 24 hr adrxmg-mdsvhnyh-hkjqrah 1 cap PO BID 11/12/24 11/12/24 11/10/24 History 24,000-76,000-120,000 unit capsule,delayed rel (Creon) Physical Exam Vital Signs and Narrative: Vital Signs: Last Vital Signs Temp 97.2 F 11/11/24 09:57 Pulse 78 11/11/24 14:00 Resp 14 11/11/24 14:00 BP 127/59 L 11/11/24 14:00 Pulse Ox 100 11/11/24 14:00 O2 Del Method Room Air 11/11/24 14:00 BMI result Body Mass Index 25.4 Const: Other: Constitutional : interactive, not in distress Cardiovascular : no JVP, no lower extremity edema Respiratory : bilateral chest movement, not in resp distress Gastrointestinal: soft, lax, generalized tenderness, no surgical signs Skin : Warm, Dry Neurological : Alert & oriented , No focal deficit Results Labs 11/12/24 07:53 11/12/24 07:53 Labs: Laboratory Results - last 24 hr 11/11/24 10:18 MCV 93.2 MCH 30.0 MCHC 32.2 RDW 15.4 Plt Count 256 MPV 11.0 Immature Gran % (Auto) 0.3 Neut % (Auto) 66.7 Lymph % (Auto) 22.9 [place] % (Auto) 6.3 Eos % (Auto) 3.4 Baso % (Auto) 0.4 Lymph # (Auto) 2.2 [place] # (Auto) 0.6 Eos # (Auto) 0.3 Baso # (Auto) 0.0 Abs Immat Gran (auto) 0.03 Absolute Neuts (auto) 6.3 Absolute Nucleated RBC 0.000 Nucleated RBC % (auto) 0.0 Anion Gap 13 Estim Creat Clear Calc 47.4 Estimated GFR > 60 Random Glucose 166 H Calcium 9.1 D Total Bilirubin 0.5 Direct Bilirubin 0.2 AST 550 H ALT 102 H Alkaline Phosphatase 146 H Troponin I High Sens < 2.7 D Total Protein 6.6 Albumin 3.9 Lipase 9 Imaging Radiologist's Impressions: Impressions Chest X-Ray 11/11/24 10:04 IMPRESSION: No active pulmonary disease. Electronically signed by: Chris Adames MD 11/11/2024 10:35 AM EDT RP Abdomen/Pelvis CT 11/11/24 13:09 IMPRESSION: 1. Abnormal small bowel wall thickening adjacent to an anastomosis in the left midabdomen. Neoplasm in this region is not excluded. 2. Large amount of stool throughout the colon. Electronically signed by: Frank Andersen MD 11/11/2024 01:46 PM EDT RP Assessment and Plan (1) Abnormal CT scan: Status: Acute (2) Atypical chest pain: Status: Acute (3) Abdominal pain: Status: Acute (4) Intractable nausea and vomiting: Status: Acute (5) Mural thickening of small intestine: Status: Acute Plan A 73 years old lady with PMH of type II DM, asthma, VAZQUEZ, Hx Gastric vypass, CAD s\p PCI 2003, hypothyroid among others who presented to ED complaininf of abdominal and chest pain for the last 3 days. Intractable nausea and vomiting could be related to peptic ulcer, mass CT scan of abd concerning for possible gastric mass EKG and Trop negative start IV Pantoprazole GI consult avoid NSAIDs IVF clear liquid, advance as tolerated Hold Brilinta and Aspirin for planned EGD Thursday morning Transaminitis Hx of Fatty liver , worsening overtime hold Statin concerning for malignancy per GI team check AFP monitor LFT DMII SSI , diabetic diet Constipation Lactulose Anxiety PRn clonazepam SNRI GERD PPI, Famotidine Neuropathy Gabapentin Hypothyroid Levothyroxine Hx CAD MEtoprolo, Statin, Imdur ASA and Brilinta on hold DVT PPx Lovenox The patient will need 2 overnight hospital stay for evaluation of abdominal pain, weight loss and suspected gastric mass pending advancing diet and tolerance of food Quality Stroke Does the patient have a stroke diagnosis?: No VTE Prior VTE?: No VTE Risk Level:: Medical - moderate - high VTE Device Contraindication: Treatment Not Indicated VTE Drug Contraindication: N/A - Med Ordered
[2024-11-11 14:29] LABS: Gamma Glutamyl Transpeptidase 221 U/L (7-33); Lactate Dehydrogenase 514 U/L (122-220)
--- NOTE | 2024-11-11 15:27 | P.CNGI_ITS ---
History of Present Illness Data of Consult Service Date: 11/11/24 Requesting physician: Neetu Esquivel Primary Care Provider: Mary Rivera MD HPI Reason for consult: Abdominal pain, gastric mass 73 year old Niuean-speaking female with type II DM, asthma, VAZQUEZ, Hx Gastric vypass, CAD s\p PCI 2004, hypothyroid among others seen at [facility] [place] ED on 11/11/24 with abdominal and chest pain for 2 weeks. She was unable to tolerate food or drink and unable to sleep due to severe burning sensation associated with nausea and vomiting. Pt reports she has noted similar symptoms in the past and were not as severe. She describes the pain as intermittent, stabbing and area feels numb and swollen, 9/10 in intensity on admission Pt notes intermittent heartburn dysphagia to solids and liquids. Pt complains of constipation and states she has not had a BM for the past 8 days. Pt complains of chills and sweating and denies hematemesis or melena, chest pain, palpitations, SOB, diarrhea or urinary symptoms. She reports weight loss of almost 10 lbs last 3-4 months. Pt was seen by Aniya Barahona NP in the GI clinic on 11/11/24 and advised to go to the ED for further work up and evaluation of progressive transaminitis. Pt denies smoking or ETOH abuse. Pt reports having a Lap Daniela and Gastric Bypass surgery at [facility] by Dr Hoff 20 years ago. Family Hx; Pt's son had cancerous polyps removed. Her mom at age 52 years with stomach cancer. She was admitted for further evalaution and possible GI intervention. 11/11/[address] SCAN SHOWED: 1. Abnormal small bowel wall thickening adjacent to an anastomosis in the left midabdomen. Neoplasm in this region is not excluded. 2. Large amount of stool throughout the colon. PAST GI HX BY REVIEW OF MEDICAL RECORDS: 08/2019 EGD SHOWED: Impression and Post Procedure Diagnosis: LARYNX Normal ESOPHAGUS: Tortuous esophagus with increased tertiary contractions without stricture. STOMACH: Maurice en Y gastric bypass status. Gastric remnant from 34 to 36 cms. Normal anastomosis without ulcers. Mild gastric erythema. Biopsies were obtained. JEJUNUM: Normal Plan: Continue present medications Patient has an appointment on 10/03/2019 in the GI Clinic with Aniya Barahona NP BIOPSIES SHOWED: A. Small bowel, biopsy: Small intestinal mucosa within normal limits. B. Stomach, biopsy: Oxyntic mucosa with moderate chronic, focally active, inflammation and focal intestinal metaplasia; no dysplasia seen; no Helicobacter organisms seen. 01/[address] Kellogg showed small gastric remnant, small hiatal hernia and anastomotic ulcers 2012 EGD and Colon were performed by Dr Pablo and showed small hiatal hernia, small gastric remnant, mild sigmoid diverticulosis and minimal internal hemorrhoids. Follow-up colonoscopy was advised in 5 years due to history of adenomatous colon polyps. Review of Systems 2 Review of Systems: Yes all other systems are reviewed and are negative [facility] Past Medical History Medical History Abdominal pain Dysuria Myocardial infarction Left hip pain Sacroiliac joint pain Elevated liver enzymes Right knee pain Left lumbar radiculitis Lumbago with sciatica Sepsis Right anterior knee pain Nausea and vomiting Candidiasis of mouth and esophagus Medication monitoring encounter Abnormal findings on diagnostic imaging of musculoskeletal system Asthma ANGIE (obstructive sleep apnea) Diabetes Esophageal dysmotilities Esophageal candidiasis Pneumonia Cystitis Recurrent UTI (urinary tract infection) Vitamin D deficiency Hypothyroidism Osteoporosis B12 deficiency Iron deficiency anemia IBS (irritable bowel syndrome) Family History Family History Father No problems noted. Mother Stomach cancer Diabetes mellitus CVD (cardiovascular disease) Heart attack Arthritis of knee Sister COVID-19 Paternal Aunt Cancer Maternal Aunt Cancer Paternal Uncle Cancer Surgical History Surgical History H/O hand surgery H/O heart surgery Hx of gastric bypass History of esophagogastroduodenoscopy (EGD) Hx of colonoscopy History of arthroscopy of left shoulder Social History Social History Household Members: Spouse Housing: House Are you a primary client care representative to a significant other at home: No Do you presently have visiting nurse or other home services: No Alcohol intake: never 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 If so, by whom?: No Do you feel safe in your current relationship?: Yes Advance Directives Date on File: 11/12/24 Do you have thoughts of harming others: None Do you have a plan to hurt others: No Plan Do you have the means to hurt others: No Recently lost weight without trying: Yes How much weight loss: Unsure Eating poorly because of decreased appetite: Yes Nutrition screen score: 5 Patient : No service: No Current occupational status: disabled Meds Allergies Allergy/AdvReac Type Severity Reaction Status Date / Time No Known Allergies Allergy Verified 11/14/24 13:02 [No Known Allergies*] Active Medications: Current Medications Acetaminophen (Acetaminophen 325 Mg Tablet) 650 mg PO Q6H PRN PRN Reason: Pain, Mild 1-3,fever,headache Calcium Carbonate (Calcium Carbonate 750 Mg Tab.Chew) 750 mg PO Q4H PRN PRN Reason: Heartburn Lactated Ringer's (Lr) 1,000 mls @ 100 mls/hr IVCONT .Q10H AMINA Lactulose (Lactulose 20 Gm/30 Ml Solution) 20 gm PO BID AMINA Magnesium Hydroxide (Milk Of Magnesia 30 Ml Oral.Susp) 30 ml PO DAILY PRN PRN Reason: Constipation Melatonin (Melatonin 3 Mg Tablet) 6 mg PO BEDTIME PRN PRN Reason: Insomnia Morphine Sulfate (Morphine Sulfate 4 Mg/Ml Cartridge) 2 mg IVPUSH Q4H PRN; Protocol PRN Reason: Pain, Severe (Pain Scale 7-10) Ondansetron HCl (Ondansetron Hcl 4 Mg/2 Ml Vial) 4 mg IVPUSH Q8H PRN PRN Reason: Nausea and Vomiting Sodium Chloride (0.9 % Sodium Chloride Flush 3 Ml Syringe) 3 ml IVFLUSH QSHICHI [facility] Home Medications ?Medication ?Instructions ?Recorded ?Confirmed ?Last Taken ?Type ascorbic acid (vitamin C) 500 mg 500 mg PO BID 07/17/20 11/11/24 11/10/24 History tablet (Vitamin C) aspirin 81 mg tablet,delayed 81 mg PO DAILY 07/17/20 11/11/24 11/10/24 History release montelukast 10 mg tablet 10 mg PO BEDTIME 08/10/20 11/11/24 11/10/24 History blood sugar diagnostic #10 ea 09/12/20 05/16/24 Unknown History clonazepam 1 mg tablet 1 mg PO BID PRN Anxiety 09/12/20 11/11/24 Unknown History dulaglutide 0.75 mg/0.5 mL 0.75 mg subcut QWEEK 09/12/20 11/14/24 11/07/24 History subcutaneous pen injector lancets 33 gauge #100 ea 09/12/20 05/16/24 Unknown History metformin 500 mg tablet,extended 500 mg PO BID 09/12/20 11/11/24 11/10/24 History release 24 hr albuterol sulfate 90 mcg/actuation 2 inh inhalation Q4H PRN Shortness 12/02/21 11/11/24 Unknown History aerosol inhaler (Ventolin HFA) Of Breath Or Wheezing rosuvastatin 40 mg tablet 40 mg PO DAILY 12/02/21 11/11/24 11/10/24 History multivitamin-ferrous 1 tab PO DAILY 12/17/21 11/11/24 11/10/24 History fumarate-folic acid 18 mg-400 mcg tablet (Certavite-Antioxidant) diclofenac sodium 1 % topical gel 1 g topical BID PRN Pain 02/11/22 11/11/24 Unknown History metoprolol succinate 50 mg 50 mg PO DAILY 10/09/22 11/11/24 11/10/24 History tablet,extended release 24 hr gabapentin 600 mg tablet 600 mg PO TID 11/04/22 11/11/24 11/10/24 History CPAP (CPAP Machine/Device) 03/24/23 05/16/24 Unknown History CPAP (CPAP Machine/Device) 07/31/23 05/16/24 Unknown History levothyroxine 125 mcg tablet 125 mcg PO DAILY@0600 07/31/23 11/11/24 11/10/24 History dapagliflozin propanediol 10 mg 10 mg PO DAILY 09/30/23 11/11/24 11/10/24 History tablet (Farxiga) isosorbide mononitrate 30 mg 30 mg PO DAILY 03/24/24 11/11/24 11/10/24 History tablet,extended release 24 hr topiramate 25 mg tablet 25 mg PO DAILY 03/24/24 11/11/24 11/10/24 History venlafaxine 75 mg capsule,extended 75 mg PO DAILY 09/29/24 11/11/24 11/10/24 History release 24 hr bisacodyl 5 mg tablet,delayed 15 mg PO BEDTIME PRN Constipation 11/11/24 11/11/24 Unknown History release (Dulcolax (bisacodyl)) clotrimazole 1 % topical cream 1 appl topical DAILY 11/11/24 11/11/24 11/10/24 History lactulose 10 gram/15 mL oral 30 ml PO TID PRN Constipation 11/11/24 11/11/24 11/10/24 History solution linaclotide 290 mcg capsule 290 mcg PO DAILY 11/11/24 11/11/24 11/10/24 History (Linzess) mirtazapine 7.5 mg tablet 7.5 mg PO BEDTIME 11/11/24 11/11/24 11/10/24 History nitroglycerin 0.3 mg sublingual 0.3 mg sublingual DIRECTED 11/11/24 11/11/24 11/10/24 History tablet nystatin 100,000 unit/gram topical 1 appl topical BID 11/11/24 11/11/24 11/10/24 History powder venlafaxine 150 mg 150 mg PO DAILY 11/11/24 11/11/24 11/10/24 History capsule,extended release 24 hr dzyqor-ifamsxbx-rnlzovr 1 cap PO BID 11/12/24 11/12/24 11/10/24 History 24,000-76,000-120,000 unit capsule,delayed rel (Creon) Physical Exam 2 Vital Signs: Vital Signs: Last Vital Signs Temp 97.2 F 11/11/24 09:57 Pulse 78 11/11/24 14:00 Resp 14 11/11/24 14:00 BP 127/59 L 11/11/24 14:00 Pulse Ox 100 11/11/24 14:00 O2 Del Method Room Air 11/11/24 14:00 BMI result Body Mass Index 25.4 Const: General: healthy appearing and no acute distress Nutritional Appearance: overweight Orientation/consciousness: patient oriented x3 L imitations: language barrier HEENT: Head: Yes normal to inspection Ears: hearing grossly normal bilaterally Mouth: Normal oral and palatal mucosa present Eyes: Sclerae: sclerae normal Pupils: Equal, round and reactive pupils present Neck: Neck: Yes normal visual inspection Chest: Chest palpation & inspection: normal inspection of the chest Resp: Effort & Inspection: normal respiratory effort Auscultation: clear to auscultation bilaterally Cardio: Palpation: normal PMI Rate: regular rate Rhythm: regular rhythm Heart sounds: S1 normal heart sound present, S2 normal heart sound present and no murmurs GI: Palpation (GI): Soft to palpation, Tenderness to palpation present (GI) (Mild generalized tenderness without rebound) and No hepatosplenomegaly present Auscultation: normal bowel sounds Rectal Exam - Female: deferred Skin: General skin exam: no rashes or lesions noted Neuro: General: patient oriented x3, gait normal and moves all extremities Cranial nerves: Yes Equal, round and reactive pupils present Psych: Appearance: grossly normal Mental Status: mental status grossly normal Results Labs 11/15/24 05:09 11/15/24 05:09 Labs: Short CBC 11/11/24 Range/Units 10:18 WBC 9.4 (4.8-10.8) X10*3/uL Hgb 11.9 L (12.0-16.0) g/dl Hct 37.0 (37.0-47.0) % Plt Count 256 (160-400) X10*3/uL BMP 11/11/24 10:18 Sodium 140 Potassium 3.6 Chloride 109 H Carbon Dioxide 22 BUN 15 Creatinine 0.86 Calcium 9.1 D Liver Function 11/11/24 Range/Units 10:18 Total Bilirubin 0.5 (0.0-1.0) mg/dL Direct Bilirubin 0.2 (0.0-0.5) mg/dL GGT 221 H (7-33) U/L AST 550 H (5-31) U/L ALT 102 H (0-31) U/L Alkaline Phosphatase 146 H (39-117) U/L Albumin 3.9 (3.5-5.0) g/dL Assessment and Plan (1) Dilated cbd, acquired: Status: Inactive (2) Mural thickening of small intestine: Status: Inactive (3) Intractable nausea and vomiting: Status: Resolved (4) Dysuria: Status: Resolved (5) Elevated LFTs: Status: Inactive Plan 73 year old Niuean-speaking female with type II DM, asthma, VAZQUEZ, Hx Gastric vypass, CAD s\p PCI 2003, hypothyroid among others seen at [facility] [facility] on 11/11/24 with abdominal and chest pain for 2 weeks. She was unable to tolerate food or drink and unable to sleep due to severe burning sensation associated with nausea and vomiting. Pt notes intermittent heartburn dysphagia to solids and liquids. Pt complains of constipation and states she has not had a BM for the past 8 days. She reports weight loss of almost 10 lbs last 3-4 months. Pt admits to history of sleep apnea and uses a CPAP machine. 11/11/[address] SCAN SHOWED: 1. Abnormal small bowel wall thickening adjacent to an anastomosis in the left midabdomen. Neoplasm in this region is not excluded. 2. Large amount of stool throughout the colon. Abdominal pain possibly due to recurrent anastomotic ulcers, narrowing/ulceration at Maurice loop anastomosis or related to constipation Elevated LFTs ? due to biliary obstuction RECOMMENDATIONS: 1. Agree with IV PPI, antiemetics, pain medications and lactulose. 2. MRCP since abd CT scan showed mild intra and extrahepatic biliary ductal dilatation 3. Pt will be scheduled for an EGD with small bowel enteroscopy on 11/14/2024 MRCP SHOWED: Suspect previous cholecystectomy. Diameter of the common bile duct with is within normal limits in the setting. Small cystic lesions in the pancreas are likely incidental. If clinically warranted consider comparison to previous or follow-up MR to assess for long- term stability. Procedures Date of Service Date of Service: 11/26/24
[2024-11-11] MEDS: Lactulose 20 GM/30 ML SOLUTION PO ×2 (16:30→21:26)
[2024-11-11] MEDS: Famotidine/PF 20 MG/2 ML VIAL IVPUSH (16:30)
[2024-11-11] MEDS: Lactated Ringers 1,000 ML 100 ML IVCONT (16:30)
--- NOTE | 2024-11-11 16:55 | PHA.MEDREC ---
Addendum entered by Mauro Gastelum [facility] 11/11/24 17:17: Med rec reviewed Original Note: Pharmacy Consult ? Medication Reconciliation Pharmacy has completed the medication reconciliation. Spoke with pt utilizing hand upper and bottom lacer and pt was poor historian and wasnt able to confirm her medications. Pt was able to confirm her Trulicity once a week on Mondays and confirmed she took it this past Thursday. Pt confirmed she fills all her medications at [facility]; I called [facility] and they were able to verbally confirm all the pt active medications with me.
[2024-11-11 18:13] VITALS: BMI 27.7
[2024-11-11 18:15] VITALS: BP 131/66; PULSE 69; RESP 18; TEMP 36.7; O2SAT 100
[2024-11-11 19:14] VITALS: BP 136/64; PULSE 75; RESP 20; TEMP 36.6; O2SAT 96
[2024-11-11 20:01] LABS: Glucose, Whole Blood 152 mg/dL (60-115)
[2024-11-11] MEDS: Insulin Lispro 100 UNIT/ML 3 ML VIAL SUBCUT (21:26)
[2024-11-11] MEDS: Melatonin 3 MG TABLET 6 MG PO (22:27)
[2024-11-11] MEDS: clonazePAM 1 MG TABLET PO (22:27)
[2024-11-12] VITALS (7 sets, daily range): BP systolic 114–137; BP diastolic 56–67; PULSE 63–85; RESP 14–18; TEMP 36.7–37.4; O2SAT 94–97
[2024-11-12] MEDS: Lactated Ringers 1,000 ML 100 ML IVCONT ×3 (02:03→20:20)
[2024-11-12] MEDS: Acetaminophen 325 MG TABLET 650 MG PO ×2 (06:17→15:58)
[2024-11-12] MEDS: Levothyroxine Sodium 125 MCG TABLET PO (06:47)
[2024-11-12] MEDS: Omeprazole 20 MG CAPSULE.DR PO ×2 (06:47→15:56)
[2024-11-12 07:35] LABS: Glucose, Whole Blood 77 mg/dL (60-115)
[2024-11-12 08:10] LABS: MANUAL DIFF FLAG NO
[2024-11-12 08:12] LABS: Basophils Percent Auto 0.4 % (0-2); Eosinophils Absolute Auto 0.4 X10*3/uL (0.0-0.4); Eosinophils Percent Auto 5.2 % (0-4); Hematocrit 34.6 % (37.0-47.0); Hemoglobin 11.5 g/dl (12.0-16.0); Imm Gran Abs Auto 0.03 X10*3/uL (0.00-0.03); Imm Gran Pct Auto 0.4 % (0.0-0.4); Lymphocytes Absolute Auto 1.1 X10*3/uL (1.2-4.9); Lymphocytes Percent Auto 14.6 % (20-40); Mean Corpuscular HGB Conc 33.2 g/dl (31.0-35.0); Mean Corpuscular Hemoglobin 30.5 pg (27.0-33.0); Mean Corpuscular Volume 91.8 fL (80.0-98.0); Mean Platelet Volume 10.4 fL (9.4-12.3); Monocytes Absolute Auto 0.7 X10*3/uL (0.1-1.2); Monocytes Percent Auto 10.3 % (2-11); Neutrophils Percent Auto 69.1 % (45-73); Platelet Count 248 X10*3/uL (160-400); Red Blood Count 3.77 X10*6/uL (4.20-5.50); Red Cell Distribution Width 15.4 % (11.0-16.0); White Blood Count 7.2 X10*3/uL (4.8-10.8)
[2024-11-12] MEDS: Metoprolol Succinate ER 50 MG TAB.ER.24H PO (08:14)
[2024-11-12] MEDS: Topiramate 25 MG TABLET PO (08:14)
[2024-11-12] MEDS: Venlafaxine HCl ER 75 MG CAP.ER.24H PO (08:17)
[2024-11-12] MEDS: Multivitamin TABLET 1 TAB PO (08:17)
[2024-11-12] MEDS: Gabapentin 600 MG TABLET PO ×3 (08:17→20:16)
[2024-11-12] MEDS: Famotidine 20 MG TABLET PO (08:17)
[2024-11-12] MEDS: Venlafaxine HCl ER 150 MG CAP.ER.24H PO (08:17)
[2024-11-12] MEDS: Folic Acid 1 MG TABLET PO (08:17)
[2024-11-12] MEDS: Isosorbide Mononitrate 30 MG TAB.ER.24H PO (08:17)
[2024-11-12] MEDS: Ascorbic Acid 500 MG TABLET PO ×2 (08:17→20:16)
[2024-11-12] MEDS: Cholecalciferol (Vitamin D3) 25 MCG TABLET 50 MCG PO (08:17)
[2024-11-12] MEDS: Lactulose 20 GM/30 ML SOLUTION PO ×2 (08:18→20:16)
[2024-11-12 08:33] LABS: Alanine Aminotransferase 403 U/L (0-31); Albumin Level 3.3 g/dL (3.5-5.0); Alkaline Phosphatase 149 U/L (39-117); Anion Gap 12 (12-20); Aspartate Amino Transferase 373 U/L (5-31); Bilirubin Direct 0.2 mg/dL (0.0-0.5); Bilirubin Total 0.4 mg/dL (0.0-1.0); Blood Urea Nitrogen 7 mg/dL (9-16); Calcium 8.7 mg/dL (8.4-10.2); Carbon Dioxide 26 mmol/L (22-29); Chloride 109 mmol/L (96-108); Creatinine Clr Calc Pharmacy 59.1; Estimated Glomerular Filt Rate > 60; Gamma Glutamyl Transpeptidase 217 U/L (7-33); Glucose Random 71 mg/dL (60-115); Potassium 4.6 mmol/L (3.3-5.1); Sodium 142 mmol/L (135-145); Total Protein 5.9 g/dL (6.5-8.0)
[2024-11-12] MEDS: Lipase/Prot/Amylase 24/76/120K 1 CAP CAPSULE.DR PO ×2 (10:00→20:16)
[2024-11-12 11:07] LABS: Glucose, Whole Blood 167 mg/dL (60-115)
--- NOTE | 2024-11-12 11:23 | MHC.CM.PN ---
PT LIVES W/ HAS A [employer] DAILY HAS OWN RIDE HOME DC PLAN HOME N/S
--- NOTE | 2024-11-12 11:24 | HO.PM.IMPN ---
Subjective Subjective Date of Service: 11/12/24 Interval History: seen and evaluated feels little better, less nausea tolerating clears plan for EGD Thursday Review of Systems Review of Systems: Yes all other systems are reviewed and are negative Physical Exam Vital Signs: Vital Signs: Last Vital Signs Temp 98.3 F 11/12/24 07:14 Pulse 67 11/12/24 08:14 Resp 14 11/12/24 07:14 BP 115/56 L 11/12/24 08:17 Pulse Ox 94 11/12/24 07:14 O2 Del Method Room Air 11/12/24 07:14 BMI result Body Mass Index 27.7 Const: Other: Constitutional : interactive, not in distress Cardiovascular : no JVP, no lower extremity edema Respiratory : bilateral chest movement, not in resp distress Gastrointestinal: soft, lax, mild generalized tenderness more in RUQ with no surgical signs Skin : Warm, Dry Neurological : Alert & oriented , No focal deficit Objective Data Active Medications Acetaminophen (Acetaminophen 325 Mg Tablet) 650 mg PO Q6H PRN PRN Reason: Pain, Mild 1-3,fever,headache Last Admin: 11/12/24 06:17 Dose: 650 mg Documented By: BEVERLY Lipase/Protease/Amylase (Lipase/Prot/Amylase 24/76/120k 1 Cap Capsule.) 1 cap PO BID COUNTS INCLUDE 234 BEDS AT THE [facility] Last Admin: 11/12/24 10:00 Dose: 1 cap Documented By: SONG Lipase/Protease/Amylase (Lipase/Prot/Amylase 24/76/120k 1 Cap Capsule.) 1 cap PO BID COUNTS INCLUDE 234 BEDS AT THE [facility] Ascorbic Acid (Ascorbic Acid 500 Mg Tablet) 500 mg PO BID COUNTS INCLUDE 234 BEDS AT THE [facility] Last Admin: 11/12/24 08:17 Dose: 500 mg Documented By: SONG Calcium Carbonate (Calcium Carbonate 750 Mg Tab.Chew) 750 mg PO Q4H PRN PRN Reason: Heartburn Clonazepam (Clonazepam 1 Mg Tablet) 1 mg PO BID PRN PRN Reason: Anxiety Clotrimazole (Clotrimazole 1 % Cream 15 Gm Tube) 1 appl TOPICAL DAILY COUNTS INCLUDE 234 BEDS AT THE [facility]; Protocol Last Admin: 11/12/24 08:26 Dose: Not Given Documented By: SONG Non-Admin Reason: Patient Refused Enoxaparin Sodium (Enoxaparin Sodium 40 Mg/0.4 Ml Syringe) 40 mg SUBCUT Q24H COUNTS INCLUDE 234 BEDS AT THE [facility] Famotidine (Famotidine 20 Mg Tablet) 20 mg PO DAILY COUNTS INCLUDE 234 BEDS AT THE [facility] Last Admin: 11/12/24 08:17 Dose: 20 mg Documented By: SONG Fluticasone/Umeclidinium/Vilanterol (Fluticasone/Umeclidinium/Vilanterol 200/62.5 Blst.W.Dev) 1 puff INHALE RDAILY COUNTS INCLUDE 234 BEDS AT THE [facility] Last Admin: 11/12/24 08:04 Dose: Not Given Documented By: BIB Non-Admin Reason: Patient Asleep Folic Acid (Folic Acid 1 Mg Tablet) 1 mg PO DAILY COUNTS INCLUDE 234 BEDS AT THE [facility] Last Admin: 11/12/24 08:17 Dose: 1 mg Documented By: SONG Gabapentin (Gabapentin 600 Mg Tablet) 600 mg PO TID COUNTS INCLUDE 234 BEDS AT THE [facility] Last Admin: 11/12/24 08:17 Dose: 600 mg Documented By: SONG Lactated Ringer's (Lr) 1,000 mls @ 100 mls/hr IVCONT .Q10H COUNTS INCLUDE 234 BEDS AT THE [facility] Last Admin: 11/12/24 10:00 Dose: 100 mls/hr Documented By: SONG Insulin Human Lispro (Insulin Lispro 100 Unit/Ml 3 Ml Vial) 0 unit SUBCUT QIDACHS COUNTS INCLUDE 234 BEDS AT THE [facility]; Protocol Last Admin: 11/12/24 08:04 Dose: Not Given Documented By: SONG Non-Admin Reason: No Insulin Coverage Isosorbide Mononitrate (Isosorbide Mononitrate 30 Mg Tab.Er.24h) 30 mg PO DAILY COUNTS INCLUDE 234 BEDS AT THE [facility]; Protocol Last Admin: 11/12/24 08:17 Dose: 30 mg Documented By: SONG Lactulose (Lactulose 20 Gm/30 Ml Solution) 20 gm PO BID COUNTS INCLUDE 234 BEDS AT THE [facility] Last Admin: 11/12/24 08:18 Dose: 20 gm Documented By: SONG Lactulose (Lactulose 20 Gm/30 Ml Solution) 20 gm PO TID PRN PRN Reason: Constipation Levothyroxine Sodium (Levothyroxine Sodium 125 Mcg Tablet) 125 mcg PO DAILY@0600 COUNTS INCLUDE 234 BEDS AT THE [facility] Last Admin: 11/12/24 06:47 Dose: 125 mcg Documented By: ALLIE-CUBA Magnesium Hydroxide (Milk Of Magnesia 30 Ml Oral.Susp) 30 ml PO DAILY PRN PRN Reason: Constipation Melatonin (Melatonin 3 Mg Tablet) 6 mg PO BEDTIME PRN PRN Reason: Insomnia Last Admin: 11/11/24 22:27 Dose: 6 mg Documented By: BEVERLY Metoprolol Succinate (Metoprolol Succinate Er 50 Mg Tab.Er.24h) 50 mg PO DAILY COUNTS INCLUDE 234 BEDS AT THE [facility]; Protocol Last Admin: 11/12/24 08:14 Dose: 50 mg Documented By: SONG Mirtazapine (Mirtazapine 7.5 Mg Tablet) 7.5 mg PO BEDTIME COUNTS INCLUDE 234 BEDS AT THE [facility] Montelukast Sodium (Montelukast Sodium 10 Mg Tablet) 10 mg PO BEDTIME COUNTS INCLUDE 234 BEDS AT THE [facility] Morphine Sulfate (Morphine Sulfate 4 Mg/Ml Cartridge) 2 mg IVPUSH Q4H PRN; Protocol PRN Reason: Pain, Severe (Pain Scale 7-10) Multivitamins/Vitamin C (Multivitamin Tablet) 1 tab PO DAILY COUNTS INCLUDE 234 BEDS AT THE [facility] Last Admin: 11/12/24 08:17 Dose: 1 tab Documented By: SONG Nystatin (Nystatin Powder 15 Gm Bottle) 1 appl TOPICAL BID COUNTS INCLUDE 234 BEDS AT THE [facility]; Protocol Last Admin: 11/12/24 08:26 Dose: Not Given Documented By: SONG Non-Admin Reason: Patient Refused Omeprazole (Omeprazole 20 Mg Capsule.) 20 mg PO BID@0630,1630 COUNTS INCLUDE 234 BEDS AT THE [facility] Last Admin: 11/12/24 06:47 Dose: 20 mg Documented By: BEVERLY Ondansetron HCl (Ondansetron Hcl 4 Mg/2 Ml Vial) 4 mg IVPUSH Q8H PRN PRN Reason: Nausea and Vomiting Sodium Chloride (0.9 % Sodium Chloride Flush 3 Ml Syringe) 3 ml IVFLUSH QSHIFT COUNTS INCLUDE 234 BEDS AT THE [facility] Last Admin: 11/12/24 08:14 Dose: Not Given Documented By: SONG Non-Admin Reason: IV Running Topiramate (Topiramate 25 Mg Tablet) 25 mg PO DAILY COUNTS INCLUDE 234 BEDS AT THE [facility] Last Admin: 11/12/24 08:14 Dose: 25 mg Documented By: SONG Venlafaxine HCl (Venlafaxine Hcl Er 150 Mg Cap.Er.24h) 150 mg PO DAILY COUNTS INCLUDE 234 BEDS AT THE [facility] Last Admin: 11/12/24 08:17 Dose: 150 mg Documented By: SONG Venlafaxine HCl (Venlafaxine Hcl Er 75 Mg Cap.Er.24h) 75 mg PO DAILY COUNTS INCLUDE 234 BEDS AT THE [facility] Last Admin: 11/12/24 08:17 Dose: 75 mg Documented By: SONG Vitamin D (Cholecalciferol (Vitamin D3) 25 Mcg Tablet) 50 mcg PO DAILY [facility] Last Admin: 11/12/24 08:17 Dose: 50 mcg Documented By: SONG Labs 11/12/24 07:53 11/12/24 07:53 Labs: Laboratory Results - last 24 hr 11/11/24 11/11/24 11/12/24 10:18 19:16 07:17 MCV MCH MCHC RDW Plt Count MPV Immature Gran % (Auto) Neut % (Auto) Lymph % (Auto) Forest % (Auto) Eos % (Auto) Baso % (Auto) Lymph # (Auto) Forest # (Auto) Eos # (Auto) Baso # (Auto) Abs Immat Gran (auto) Absolute Neuts (auto) Absolute Nucleated RBC Nucleated RBC % (auto) Anion Gap Estim Creat Clear Calc Estimated GFR POC Glucose 152 H 77 Random Glucose Calcium Total Bilirubin Direct Bilirubin GGT 221 H AST ALT Alkaline Phosphatase Lactate Dehydrogenase 514 H Total Protein Albumin Alpha Fetoprotein Cancelled Carcinoembryonic Ag 11/12/24 11/12/24 07:53 10:57 MCV 91.8 MCH 30.5 MCHC 33.2 RDW 15.4 Plt Count 248 MPV 10.4 Immature Gran % (Auto) 0.4 Neut % (Auto) 69.1 Lymph % (Auto) 14.6 L Forest % (Auto) 10.3 Eos % (Auto) 5.2 H Baso % (Auto) 0.4 Lymph # (Auto) 1.1 L Forest # (Auto) 0.7 Eos # (Auto) 0.4 Baso # (Auto) 0.0 Abs Immat Gran (auto) 0.03 Absolute Neuts (auto) 5.0 Absolute Nucleated RBC 0.000 Nucleated RBC % (auto) 0.0 Anion Gap 12 Estim Creat Clear Calc 59.1 Estimated GFR > 60 POC Glucose 167 H Random Glucose 71 Calcium 8.7 Total Bilirubin 0.4 Direct Bilirubin 0.2 GGT 217 H AST 373 H ALT 403 H Alkaline Phosphatase 149 H Lactate Dehydrogenase Total Protein 5.9 L Albumin 3.3 L Alpha Fetoprotein Carcinoembryonic Ag 4.80 Assessment and Plan (1) Mural thickening of small intestine: Status: Acute (2) Abnormal CT scan: Status: Acute (3) Atypical chest pain: Status: Acute (4) Abdominal pain: Status: Acute (5) Dilated cbd, acquired: Status: Acute Plan A 73 years old lady with PMH of type II DM, asthma, VAZQUEZ, Hx Gastric vypass, CAD s\p PCI 2003, hypothyroid among others who presented to ED complaininf of abdominal and chest pain for the last 3 days. Intractable nausea and vomiting could be related to peptic ulcer, mass CT scan of abd concerning for possible gastric mass EKG and Trop negative start IV Pantoprazole GI consult avoid NSAIDs IVF clear liquid, advance as tolerated Hold Brilinta and Aspirin for planned EGD Thursday morning NPO for Thursday EGD Transaminitis Hx of Fatty liver , worsening overtime CT reporting mild intra and extrahepatic biliary ductal dilatation without significant change. hold Statin to check MRCP Thursday per GI check AFP monitor LFT DMII SSI , diabetic diet Constipation Lactulose Anxiety PRn clonazepam SNRI GERD PPI, Famotidine Neuropathy Gabapentin Hypothyroid Levothyroxine Hx CAD MEtoprolo, Statin, Imdur ASA and Brilinta on hold DVT PPx Lovenox The patient will need overnight hospital stay for evaluation of abdominal pain, weight loss and suspected gastric mass pending advancing diet and tolerance of food Quality Stroke Does the patient have a stroke diagnosis?: No VTE Prior VTE?: No VTE Risk Level:: Medical - moderate - high VTE Device Contraindication: Treatment Not Indicated VTE Drug Contraindication: N/A - Med Ordered
[2024-11-12] MEDS: Enoxaparin Sodium 40 MG/0.4 ML SYRINGE SUBCUT (11:37)
[2024-11-12] MEDS: Insulin Lispro 100 UNIT/ML 3 ML VIAL SUBCUT (12:33)
[2024-11-12 14:29] LABS: Glucose, Whole Blood 36 mg/dL (60-115)
[2024-11-12] MEDS: Dextrose 50 % 25 GM/50 ML SYRINGE IVPUSH (14:30)
[2024-11-12 14:42] LABS: Glucose, Whole Blood 177 mg/dL (60-115)
[2024-11-12 15:03] LABS: Glucose, Whole Blood 169 mg/dL (60-115)
[2024-11-12 15:45] LABS: Glucose, Whole Blood 116 mg/dL (60-115)
[2024-11-12 16:19] LABS: Glucose, Whole Blood 113 mg/dL (60-115)
--- NOTE | 2024-11-12 17:01 | PC.NURSE ---
Patient called this Nurse, stated she was feeling dizzy and lightheadedness,and stated that her sugar was low. Pt. was pale looking, speaking one word at a time, POC checked was 36. Rapid response called, Provider at bedside, pt. alert and oriented, 8 oz juice given and D50% 12.5 g given. POC was rechecked in 15 minutes and it was 177. Hypoglycemic Protocol followed.
[2024-11-12 19:50] LABS: Glucose, Whole Blood 113 mg/dL (60-115)
[2024-11-12] MEDS: Montelukast Sodium 10 MG TABLET PO (20:16)
[2024-11-12] MEDS: Mirtazapine 7.5 MG TABLET PO (20:16)
[2024-11-13 03:19] VITALS: BP 126/61; PULSE 63; RESP 18; TEMP 37.4; O2SAT 94
[2024-11-13] MEDS: Levothyroxine Sodium 125 MCG TABLET PO (05:29)
[2024-11-13] MEDS: Omeprazole 20 MG CAPSULE.DR PO ×2 (05:29→16:48)
[2024-11-13] MEDS: Lactated Ringers 1,000 ML 100 ML IVCONT (05:29)
[2024-11-13] MEDS: Acetaminophen 325 MG TABLET 650 MG PO ×3 (05:34→21:25)
[2024-11-13 07:16] VITALS: BP 156/63; PULSE 66; RESP 14; TEMP 36.8; O2SAT 95
[2024-11-13] MEDS: Metoprolol Succinate ER 50 MG TAB.ER.24H PO (07:42)
[2024-11-13] MEDS: Folic Acid 1 MG TABLET PO (07:42)
[2024-11-13] MEDS: Venlafaxine HCl ER 75 MG CAP.ER.24H PO (07:42)
[2024-11-13] MEDS: Venlafaxine HCl ER 150 MG CAP.ER.24H PO (07:42)
[2024-11-13] MEDS: Ascorbic Acid 500 MG TABLET PO ×2 (07:42→19:51)
[2024-11-13] MEDS: Famotidine 20 MG TABLET PO (07:42)
[2024-11-13] MEDS: Gabapentin 600 MG TABLET PO ×3 (07:42→19:51)
[2024-11-13] MEDS: Cholecalciferol (Vitamin D3) 25 MCG TABLET 50 MCG PO (07:42)
[2024-11-13] MEDS: Lactulose 20 GM/30 ML SOLUTION PO ×2 (07:43→19:51)
[2024-11-13] MEDS: Topiramate 25 MG TABLET PO (07:43)
[2024-11-13] MEDS: Multivitamin TABLET 1 TAB PO (07:43)
[2024-11-13] MEDS: Isosorbide Mononitrate 30 MG TAB.ER.24H PO (07:43)
[2024-11-13] MEDS: Lipase/Prot/Amylase 24/76/120K 1 CAP CAPSULE.DR PO ×2 (07:43→19:51)
[2024-11-13 07:50] LABS: Glucose, Whole Blood 81 mg/dL (60-115)
[2024-11-13] MEDS: Fluticasone/Umeclidinium/Vilanterol 200/62.5/25 BLST.W.DEV 1 PUFF INHALE (07:58)
[2024-11-13 07:59] VITALS: PULSE 66; RESP 18; O2SAT 95
[2024-11-13 11:28] LABS: Glucose, Whole Blood 148 mg/dL (60-115)
[2024-11-13] MEDS: Enoxaparin Sodium 40 MG/0.4 ML SYRINGE SUBCUT (12:17)
--- NOTE | 2024-11-13 13:56 | P.PNIM_ITS ---
Subjective Subjective Date of Service: 11/13/24 Interval History: seen and evaluated feels little better, less nausea tolerating clears plan for EGD tomorrow Review of Systems Review of Systems: Yes all other systems are reviewed and are negative Physical Exam 2 Vital Signs: Vital Signs: Last Vital Signs Temp 98.3 F 11/13/24 07:16 Pulse 66 11/13/24 07:59 Resp 18 11/13/24 07:59 BP 156/63 H 11/13/24 07:16 Pulse Ox 95 11/13/24 07:16 O2 Del Method Room Air 11/13/24 07:16 BMI result Body Mass Index 27.7 Const: Other: Constitutional : interactive, not in distress Cardiovascular : no JVP, no lower extremity edema Respiratory : bilateral chest movement, not in resp distress Gastrointestinal: soft, lax, mild generalized tenderness more in RUQ with no surgical signs Skin : Warm, Dry Neurological : Alert & oriented , No focal deficit Objective Data Active Medications Acetaminophen (Acetaminophen 325 Mg Tablet) 650 mg PO Q6H PRN PRN Reason: Pain, Mild 1-3,fever,headache Last Admin: 11/13/24 05:34 Dose: 650 mg Documented By: BILLIE Lipase/Protease/Amylase (Lipase/Prot/Amylase 24/76/120k 1 Cap Capsule.Dr) 1 cap PO BID [facility] Last Admin: 11/13/24 07:43 Dose: 1 cap Documented By: SONG Ascorbic Acid (Ascorbic Acid 500 Mg Tablet) 500 mg PO BID [facility] Last Admin: 11/13/24 07:42 Dose: 500 mg Documented By: SONG Calcium Carbonate (Calcium Carbonate 750 Mg Tab.Chew) 750 mg PO Q4H PRN PRN Reason: Heartburn Clonazepam (Clonazepam 1 Mg Tablet) 1 mg PO BID PRN PRN Reason: Anxiety Clotrimazole (Clotrimazole 1 % Cream 15 Gm Tube) 1 appl TOPICAL DAILY [facility]; Protocol Last Admin: 11/13/24 08:03 Dose: Not Given Documented By: SONG Non-Admin Reason: Patient Refused Dextrose (Dextrose 50 % 25 Gm/50 Ml Syringe) 25 gm IVPUSH Q15M PRN; Protocol PRN Reason: per Hypoglycemia Standing Ord. Last Admin: 11/12/24 14:30 Dose: 12.5 gm Documented By: SONG Comments: MD order Enoxaparin Sodium (Enoxaparin Sodium 40 Mg/0.4 Ml Syringe) 40 mg SUBCUT Q24H [facility] Last Admin: 11/13/24 12:17 Dose: 40 mg Documented By: SONG Famotidine (Famotidine 20 Mg Tablet) 20 mg PO DAILY [facility] Last Admin: 11/13/24 07:42 Dose: 20 mg Documented By: SONG Fluticasone/Umeclidinium/Vilanterol (Fluticasone/Umeclidinium/Vilanterol 200/62.5/25 Blst.W.Dev) 1 puff INHALE RDAILY [facility] Last Admin: 11/13/24 07:58 Dose: 1 puff Documented By: BIB Folic Acid (Folic Acid 1 Mg Tablet) 1 mg PO DAILY [facility] Last Admin: 11/13/24 07:42 Dose: 1 mg Documented By: SONG Gabapentin (Gabapentin 600 Mg Tablet) 600 mg PO TID [facility] Last Admin: 11/13/24 07:42 Dose: 600 mg Documented By: SONG Lactated Ringer's (Lr) 1,000 mls @ 100 mls/hr IVCONT .Q10H [facility] Last Admin: 11/13/24 05:29 Dose: 100 mls/hr Documented By: BILLIE Insulin Human Lispro (Insulin Lispro 100 Unit/Ml 3 Ml Vial) 0 unit SUBCUT QIDACHS [facility]; Protocol Last Admin: 11/13/24 11:35 Dose: Not Given Documented By: SONG Non-Admin Reason: No Insulin Coverage Isosorbide Mononitrate (Isosorbide Mononitrate 30 Mg Tab.Er.24h) 30 mg PO DAILY [facility]; Protocol Last Admin: 11/13/24 07:43 Dose: 30 mg Documented By: SONG Lactulose (Lactulose 20 Gm/30 Ml Solution) 20 gm PO BID [facility] Last Admin: 11/13/24 07:43 Dose: 20 gm Documented By: SONG Lactulose (Lactulose 20 Gm/30 Ml Solution) 20 gm PO TID PRN PRN Reason: Constipation Levothyroxine Sodium (Levothyroxine Sodium 125 Mcg Tablet) 125 mcg PO DAILY@0600 [facility] Last Admin: 11/13/24 05:29 Dose: 125 mcg Documented By: BILLIE Magnesium Hydroxide (Milk Of Magnesia 30 Ml Oral.Susp) 30 ml PO DAILY PRN PRN Reason: Constipation Melatonin (Melatonin 3 Mg Tablet) 6 mg PO BEDTIME PRN PRN Reason: Insomnia Last Admin: 11/11/24 22:27 Dose: 6 mg Documented By: BEVERLY Metoprolol Succinate (Metoprolol Succinate Er 50 Mg Tab.Er.24h) 50 mg PO DAILY [facility]; Protocol Last Admin: 11/13/24 07:42 Dose: 50 mg Documented By: SONG Mirtazapine (Mirtazapine 7.5 Mg Tablet) 7.5 mg PO BEDTIME [facility] Last Admin: 11/12/24 20:16 Dose: 7.5 mg Documented By: BILLIE Montelukast Sodium (Montelukast Sodium 10 Mg Tablet) 10 mg PO BEDTIME [facility] Last Admin: 11/12/24 20:16 Dose: 10 mg Documented By: BILLIE Morphine Sulfate (Morphine Sulfate 4 Mg/Ml Cartridge) 2 mg IVPUSH Q4H PRN; Protocol PRN Reason: Pain, Severe (Pain Scale 7-10) Multivitamins/Vitamin C (Multivitamin Tablet) 1 tab PO DAILY [facility] Last Admin: 11/13/24 07:43 Dose: 1 tab Documented By: SONG Nystatin (Nystatin Powder 15 Gm Bottle) 1 appl TOPICAL BID [facility]; Protocol Last Admin: 11/13/24 08:03 Dose: Not Given Documented By: SOGN Non-Admin Reason: Patient Refused Omeprazole (Omeprazole 20 Mg Shanna.) 20 mg PO BID@1630,0836 [facility] Last Admin: 11/13/24 05:29 Dose: 20 mg Documented By: BILLIE Ondansetron HCl (Ondansetron Hcl 4 Mg/2 Ml Vial) 4 mg IVPUSH Q8H PRN PRN Reason: Nausea and Vomiting Sodium Chloride (0.9 % Sodium Chloride Flush 3 Ml Syringe) 3 ml IVFLUSH QSHIFT [facility] Last Admin: 11/13/24 07:45 Dose: Not Given Documented By: SONG Non-Admin Reason: IV Running Topiramate (Topiramate 25 Mg Tablet) 25 mg PO DAILY [facility] Last Admin: 11/13/24 07:43 Dose: 25 mg Documented By: SONG Venlafaxine HCl (Venlafaxine Hcl Er 150 Mg Cap.Er.24h) 150 mg PO DAILY [facility] Last Admin: 11/13/24 07:42 Dose: 150 mg Documented By: SONG Venlafaxine HCl (Venlafaxine Hcl Er 75 Mg Cap.Er.24h) 75 mg PO DAILY [facility] Last Admin: 11/13/24 07:42 Dose: 75 mg Documented By: SONG Vitamin D (Cholecalciferol (Vitamin D3) 25 Mcg Tablet) 50 mcg PO DAILY [facility] Last Admin: 11/13/24 07:42 Dose: 50 mcg Documented By: SONG Labs 11/12/24 07:53 11/12/24 07:53 Labs: Laboratory Results - last 24 hr 11/12/24 11/12/24 11/12/24 14:23 14:38 15:00 POC Glucose 36 L* 177 H 169 H 11/12/24 11/12/24 11/12/24 15:33 16:17 19:16 POC Glucose 116 H 113 113 11/13/24 11/13/24 07:18 11:02 POC Glucose 81 148 H Assessment and Plan (1) Dilated cbd, acquired: Status: Acute (2) Mural thickening of small intestine: Status: Acute (3) Abnormal CT scan: Status: Acute (4) Abdominal pain: Status: Acute Plan A 73 years old lady with PMH of type II DM, asthma, VAZQUEZ, Hx Gastric vypass, CAD s\p PCI 2003, hypothyroid among others who presented to ED complaininf of abdominal and chest pain for the last 3 days. Intractable nausea and vomiting could be related to peptic ulcer, mass CT scan of abd concerning for possible gastric mass EKG and Trop negative IV Pantoprazole GI consult avoid NSAIDs IVF clear liquid, advance to regular Hold Brilinta and Aspirin for planned EGD NPO for EGD tomorrow Transaminitis Hx of Fatty liver , worsening overtime CT reporting mild intra and extrahepatic biliary ductal dilatation without significant change. hold Statin to check MRCP Thursday per GI check AFP monitor LFT DMII with hypoglycemic event random of 30s with near syncope, responded to IV Dextrose switch fluids for RLD5 overnight SSI , diabetic diet Constipation Lactulose Anxiety PRn clonazepam SNRI GERD PPI, Famotidine Neuropathy Gabapentin Hypothyroid Levothyroxine Hx CAD MEtoprolo, Statin, Imdur ASA and Brilinta on hold DVT PPx Lovenox The patient will need overnight hospital stay for evaluation of abdominal pain, weight loss and suspected gastric mass pending advancing diet and tolerance of food Quality Stroke Does the patient have a stroke diagnosis?: No VTE Prior VTE?: No VTE Risk Level:: Medical - moderate - high VTE Device Contraindication: Treatment Not Indicated VTE Drug Contraindication: N/A - Med Ordered
[2024-11-13 14:00] VITALS: BP 168/68; PULSE 67; RESP 14; TEMP 36.4; O2SAT 96
[2024-11-13] MEDS: Dextrose 5 % and Lactated Ring 1,000 ML 80 ML IVCONT (14:21)
[2024-11-13 16:03] LABS: Glucose, Whole Blood 119 mg/dL (60-115)
[2024-11-13] MEDS: Mirtazapine 7.5 MG TABLET PO (19:51)
[2024-11-13] MEDS: Morphine Sulfate 4 MG/ML CARTRIDGE 2 MG IVPUSH (19:52)
[2024-11-13] MEDS: Montelukast Sodium 10 MG TABLET PO (19:52)
[2024-11-13 20:33] LABS: Glucose, Whole Blood 93 mg/dL (60-115)
[2024-11-13] MEDS: Nystatin Powder 15 GM BOTTLE 1 APPL TOPICAL (21:15)
[2024-11-13] MEDS: Melatonin 3 MG TABLET 6 MG PO (21:30)
[2024-11-13 21:50] VITALS: BP 138/63; PULSE 68; RESP 18; TEMP 36.9; O2SAT 95
[2024-11-14] VITALS (9 sets, daily range): BP systolic 114–154; BP diastolic 48–67; PULSE 64–75; RESP 16–18; TEMP 36.2–37.1; O2SAT 93–98
[2024-11-14] MEDS: Dextrose 5 % and Lactated Ring 1,000 ML 80 ML IVCONT ×2 (01:30→17:12)
[2024-11-14] MEDS: Omeprazole 20 MG CAPSULE.DR PO ×2 (05:33→17:12)
[2024-11-14] MEDS: Levothyroxine Sodium 125 MCG TABLET PO (05:33)
[2024-11-14 05:39] LABS: MANUAL DIFF FLAG NO
[2024-11-14 05:43] LABS: Basophils Percent Auto 0.6 % (0-2); Eosinophils Absolute Auto 0.3 X10*3/uL (0.0-0.4); Hematocrit 38.4 % (37.0-47.0); Hemoglobin 12.6 g/dl (12.0-16.0); Imm Gran Abs Auto 0.02 X10*3/uL (0.00-0.03); Imm Gran Pct Auto 0.4 % (0.0-0.4); Lymphocytes Absolute Auto 1.5 X10*3/uL (1.2-4.9); Lymphocytes Percent Auto 31.4 % (20-40); Mean Corpuscular HGB Conc 32.8 g/dl (31.0-35.0); Mean Corpuscular Hemoglobin 30.4 pg (27.0-33.0); Mean Corpuscular Volume 92.5 fL (80.0-98.0); Mean Platelet Volume 10.7 fL (9.4-12.3); Monocytes Absolute Auto 0.5 X10*3/uL (0.1-1.2); Monocytes Percent Auto 11.5 % (2-11); Neutrophils Absolute Auto 2.3 x10*3/uL (2.0-8.3); Neutrophils Percent Auto 49.1 % (45-73); Platelet Count 270 X10*3/uL (160-400); Red Blood Count 4.15 X10*6/uL (4.20-5.50); White Blood Count 4.7 X10*3/uL (4.8-10.8)
[2024-11-14 05:59] LABS: Anion Gap 11 (12-20); Blood Urea Nitrogen 6 mg/dL (9-16); Calcium 8.9 mg/dL (8.4-10.2); Carbon Dioxide 25 mmol/L (22-29); Chloride 111 mmol/L (96-108); Creatinine Clr Calc Pharmacy 57.4; Estimated Glomerular Filt Rate > 60; Glucose Random 91 mg/dL (60-115); Potassium 5.1 mmol/L (3.3-5.1); Sodium 142 mmol/L (135-145)
[2024-11-14 07:47] LABS: Glucose, Whole Blood 108 mg/dL (60-115)
[2024-11-14] MEDS: Fluticasone/Umeclidinium/Vilanterol 200/62.5/25 BLST.W.DEV 1 PUFF INHALE (07:58)
[2024-11-14] MEDS: Morphine Sulfate 4 MG/ML CARTRIDGE 2 MG IVPUSH ×2 (09:55→15:33)
[2024-11-14] MEDS: Folic Acid 1 MG TABLET PO (09:56)
[2024-11-14] MEDS: Multivitamin TABLET 1 TAB PO (09:56)
[2024-11-14] MEDS: Venlafaxine HCl ER 150 MG CAP.ER.24H PO (09:56)
[2024-11-14] MEDS: Ascorbic Acid 500 MG TABLET PO ×2 (09:56→20:01)
[2024-11-14] MEDS: Cholecalciferol (Vitamin D3) 25 MCG TABLET 50 MCG PO (09:56)
[2024-11-14] MEDS: Isosorbide Mononitrate 30 MG TAB.ER.24H PO (09:56)
[2024-11-14] MEDS: Gabapentin 600 MG TABLET PO ×3 (09:56→20:01)
[2024-11-14] MEDS: Famotidine 20 MG TABLET PO (09:56)
[2024-11-14] MEDS: Lipase/Prot/Amylase 24/76/120K 1 CAP CAPSULE.DR PO ×2 (09:56→20:01)
[2024-11-14] MEDS: Metoprolol Succinate ER 50 MG TAB.ER.24H PO (09:56)
[2024-11-14] MEDS: Topiramate 25 MG TABLET PO (09:57)
[2024-11-14] MEDS: Venlafaxine HCl ER 75 MG CAP.ER.24H PO (09:57)
[2024-11-14] MEDS: Nystatin Powder 15 GM BOTTLE 1 APPL TOPICAL (10:00)
[2024-11-14 11:32] LABS: Glucose, Whole Blood 109 mg/dL (60-115)
--- NOTE | 2024-11-14 11:32 | P.PNIM_ITS ---
Subjective Subjective Date of Service: 11/14/24 Interval History: seen and evaluated feels little better, less nausea tolerating diet plan for EGD today pending MRCP Review of Systems Review of Systems: Yes all other systems are reviewed and are negative Physical Exam 2 Vital Signs: Vital Signs: Last Vital Signs Temp 98.4 F 11/14/24 07:21 Pulse 69 11/14/24 08:00 Resp 16 11/14/24 08:00 BP 132/59 L 11/14/24 09:56 Pulse Ox 96 11/14/24 07:21 O2 Del Method Room Air 11/14/24 07:21 BMI result Body Mass Index 27.7 Const: Other: Constitutional : interactive, not in distress Cardiovascular : no JVP, no lower extremity edema Respiratory : bilateral chest movement, not in resp distress Gastrointestinal: soft, lax, mild generalized tenderness more in RUQ with no surgical signs Skin : Warm, Dry Neurological : Alert & oriented , No focal deficit Objective Data Active Medications Acetaminophen (Acetaminophen 325 Mg Tablet) 650 mg PO Q6H PRN PRN Reason: Pain, Mild 1-3,fever,headache Last Admin: 11/13/24 21:25 Dose: 650 mg Documented By: RAHEEL Lipase/Protease/Amylase (Lipase/Prot/Amylase 24/76/120k 1 Cap Capsule.Dr) 1 cap PO BID AMINA Last Admin: 11/14/24 09:56 Dose: 1 cap Documented By: REBEKAH Ascorbic Acid (Ascorbic Acid 500 Mg Tablet) 500 mg PO BID AMINA Last Admin: 11/14/24 09:56 Dose: 500 mg Documented By: REBEKAH Calcium Carbonate (Calcium Carbonate 750 Mg Tab.Chew) 750 mg PO Q4H PRN PRN Reason: Heartburn Clonazepam (Clonazepam 1 Mg Tablet) 1 mg PO BID PRN PRN Reason: Anxiety Clotrimazole (Clotrimazole 1 % Cream 15 Gm Tube) 1 appl TOPICAL DAILY [facility]INA; Protocol Last Admin: 11/14/24 10:00 Dose: Not Given Documented By: REBEKAH Non-Admin Reason: Patient Refused Dextrose (Dextrose 50 % 25 Gm/50 Ml Syringe) 25 gm IVPUSH Q15M PRN; Protocol PRN Reason: per Hypoglycemia Standing Ord. Last Admin: 11/12/24 14:30 Dose: 12.5 gm Documented By: SONG Comments: order Enoxaparin Sodium (Enoxaparin Sodium 40 Mg/0.4 Ml Syringe) 40 mg SUBCUT Q24H [facility] Last Admin: 11/13/24 12:17 Dose: 40 mg Documented By: SONG Famotidine (Famotidine 20 Mg Tablet) 20 mg PO DAILY [facility] Last Admin: 11/14/24 09:56 Dose: 20 mg Documented By: REBEKAH Fluticasone/Umeclidinium/Vilanterol (Fluticasone/Umeclidinium/Vilanterol 200/62.5/ Blst.W.Dev) 1 puff INHALE RDAILY [facility] Last Admin: 11/14/24 07:58 Dose: 1 puff Documented By: SUKI Folic Acid (Folic Acid 1 Mg Tablet) 1 mg PO DAILY [facility] Last Admin: 11/14/24 09:56 Dose: 1 mg Documented By: REBEKAH Gabapentin (Gabapentin 600 Mg Tablet) 600 mg PO TID [facility] Last Admin: 11/14/24 09:56 Dose: 600 mg Documented By: REBEKAH Dextrose/Lactated Ringer's (D5lr) 1,000 mls @ 80 mls/hr IVCONT .[id number] [facility] Last Admin: 11/14/24 01:30 Dose: 80 mls/hr Documented By: RAHEEL Insulin Human Lispro (Insulin Lispro 100 Unit/Ml 3 Ml Vial) 0 unit SUBCUT QIDACHS [facility]; Protocol Last Admin: 11/14/24 07:51 Dose: Not Given Documented By: REBEKAH Non-Admin Reason: IV Running Isosorbide Mononitrate (Isosorbide Mononitrate 30 Mg Tab.Er.24h) 30 mg PO DAILY [facility]; Protocol Last Admin: 11/14/24 09:56 Dose: 30 mg Documented By: REBEKAH Lactulose (Lactulose 20 Gm/30 Ml Solution) 20 gm PO BID [facility] Last Admin: 11/14/24 10:01 Dose: Not Given Documented By: REBEKAH Non-Admin Reason: Patient Refused Lactulose (Lactulose 20 Gm/30 Ml Solution) 20 gm PO TID PRN PRN Reason: Constipation Levothyroxine Sodium (Levothyroxine Sodium 125 Mcg Tablet) 125 mcg PO DAILY@0600 [facility] Last Admin: 11/14/24 05:33 Dose: 125 mcg Documented By: RAHEEL Magnesium Hydroxide (Milk Of Magnesia 30 Ml Oral.Susp) 30 ml PO DAILY PRN PRN Reason: Constipation Melatonin (Melatonin 3 Mg Tablet) 6 mg PO BEDTIME PRN PRN Reason: Insomnia Last Admin: 11/13/24 21:30 Dose: 6 mg Documented By: RAHEEL Metoprolol Succinate (Metoprolol Succinate Er 50 Mg Tab.Er.24h) 50 mg PO DAILY [facility]; Protocol Last Admin: 11/14/24 09:56 Dose: 50 mg Documented By: REBEKAH Mirtazapine (Mirtazapine 7.5 Mg Tablet) 7.5 mg PO BEDTIME [facility] Last Admin: 11/13/24 19:51 Dose: 7.5 mg Documented By: RAHEEL Montelukast Sodium (Montelukast Sodium 10 Mg Tablet) 10 mg PO BEDTIME [facility] Last Admin: 11/13/24 19:52 Dose: 10 mg Documented By: RAHEEL Morphine Sulfate (Morphine Sulfate 4 Mg/Ml Cartridge) 2 mg IVPUSH Q4H PRN; Protocol PRN Reason: Pain, Severe (Pain Scale 7-10) Last Admin: 11/14/24 09:55 Dose: 2 mg Documented By: REBEKAH Multivitamins/Vitamin C (Multivitamin Tablet) 1 tab PO DAILY [facility] Last Admin: 11/14/24 09:56 Dose: 1 tab Documented By: REBEKAH Nystatin (Nystatin Powder 15 Gm Bottle) 1 appl TOPICAL BID [facility]; Protocol Last Admin: 11/14/24 10:00 Dose: 1 appl Documented By: REBEKAH Omeprazole (Omeprazole 20 Mg Capsule.Dr) 20 mg PO BID@0630,1630 [facility] Last Admin: 11/14/24 05:33 Dose: 20 mg Documented By: RAHEEL Ondansetron HCl (Ondansetron Hcl 4 Mg/2 Ml Vial) 4 mg IVPUSH Q8H PRN PRN Reason: Nausea and Vomiting Sodium Chloride (0.9 % Sodium Chloride Flush 3 Ml Syringe) 3 ml IVFLUSH QSHIFT [facility] Last Admin: 11/14/24 07:15 Dose: Not Given Documented By: REBEKAH Non-Admin Reason: IV Running Topiramate (Topiramate 25 Mg Tablet) 25 mg PO DAILY [facility] Last Admin: 11/14/24 09:57 Dose: 25 mg Documented By: REBEKAH Venlafaxine HCl (Venlafaxine Hcl Er 150 Mg Cap.Er.24h) 150 mg PO DAILY [facility] Last Admin: 11/14/24 09:56 Dose: 150 mg Documented By: REBEKAH Venlafaxine HCl (Venlafaxine Hcl Er 75 Mg Cap.Er.24h) 75 mg PO DAILY [facility] Last Admin: 11/14/24 09:57 Dose: 75 mg Documented By: REBEKAH Vitamin D (Cholecalciferol (Vitamin D3) 25 Mcg Tablet) 50 mcg PO DAILY [facility] Last Admin: 11/14/24 09:56 Dose: 50 mcg Documented By: REBEKAH Labs 11/14/24 05:30 11/14/24 05:30 Labs: Laboratory Results - last 24 hr 11/13/24 11/13/24 11/14/24 15:58 20:29 05:30 MCV 92.5 MCH 30.4 MCHC 32.8 RDW 15.0 Plt Count 270 MPV 10.7 Immature Gran % (Auto) 0.4 Neut % (Auto) 49.1 Lymph % (Auto) 31.4 Blair % (Auto) 11.5 H Eos % (Auto) 7.0 H Baso % (Auto) 0.6 Lymph # (Auto) 1.5 Blair # (Auto) 0.5 Eos # (Auto) 0.3 Baso # (Auto) 0.0 Abs Immat Gran (auto) 0.02 Absolute Neuts (auto) 2.3 Absolute Nucleated RBC 0.000 Nucleated RBC % (auto) 0.0 Anion Gap 11 L Estim Creat Clear Calc 57.4 Estimated GFR > 60 POC Glucose 119 H 93 Random Glucose 91 Calcium 8.9 11/14/24 07:24 MCV MCH MCHC RDW Plt Count MPV Immature Gran % (Auto) Neut % (Auto) Lymph % (Auto) Blair % (Auto) Eos % (Auto) Baso % (Auto) Lymph # (Auto) Blair # (Auto) Eos # (Auto) Baso # (Auto) Abs Immat Gran (auto) Absolute Neuts (auto) Absolute Nucleated RBC Nucleated RBC % (auto) Anion Gap Estim Creat Clear Calc Estimated GFR POC Glucose 108 Random Glucose Calcium Assessment and Plan (1) Dilated cbd, acquired: Status: Acute (2) Mural thickening of small intestine: Status: Acute (3) Abnormal CT scan: Status: Acute Plan A 73 years old lady with PMH of type II DM, asthma, VAZQUEZ, Hx Gastric vypass, CAD s\p PCI 2003, hypothyroid among others who presented to ED complaininf of abdominal and chest pain for the last 3 days. Intractable nausea and vomiting could be related to peptic ulcer, mass CT scan of abd concerning for possible gastric mass EKG and Trop negative IV Pantoprazole GI consult avoid NSAIDs on IVF advance to regular Hold Brilinta and Aspirin for planned EGD NPO for EGD today Transaminitis Hx of Fatty liver , worsening overtime CT reporting mild intra and extrahepatic biliary ductal dilatation without significant change. hold Statin For MRCP later today\tomorrow check AFP monitor LFT DMII with hypoglycemic event random of 30s with near syncope, responded to IV Dextrose switch fluids for RLD5 overnight SSI , diabetic diet Constipation Lactulose Anxiety PRn clonazepam SNRI GERD PPI, Famotidine Neuropathy Gabapentin Hypothyroid Levothyroxine Hx CAD MEtoprolo, Statin, Imdur ASA and Brilinta on hold DVT PPx Lovenox The patient will need overnight hospital stay for evaluation of abdominal pain, weight loss and suspected gastric mass pending advancing diet and tolerance of food Quality Stroke Does the patient have a stroke diagnosis?: No VTE Prior VTE?: No VTE Risk Level:: Medical - moderate - high VTE Device Contraindication: Treatment Not Indicated VTE Drug Contraindication: N/A - Med Ordered
--- NOTE | 2024-11-14 12:41 | MHC.SHP ---
Pre-Procedural Eval Section A - 24 Hr Update-Section A only Date of Service: 11/14/24 The patient is an INPATIENT: Yes Changes since office visit: Yes New Medical Problems, Yes Changes in Medication and Yes Patient answered all questions; No Cold of Flu in the past 2 weeks The patient has been examined within 24 hours of the surgical procedure. The History & Physical has been completed within 30 days and I have reviewed it.: Yes Section B - Complete if H&P > 30 days Chief Complaint: abdominal pain, abnormal CT scan Allergies: Allergies Allergy/AdvReac Type Severity Reaction Status Date / Time No Known Allergies Allergy Verified 11/11/24 10:01 [No Known Allergies*] Plan Diagnosis/Plan: Unchanged I have reviewed the history and physical and performed a pertinent physical examination on my patient. No changes have occurred unless specified. Time Spent With Patient Time: Total time managing care of this patient today ____ minutes.
--- NOTE | 2024-11-14 12:59 | HO.ANESPROP2 ---
[facility] Active Problems Active Problems: All Active Problems Dilated cbd, acquired (Acute) Mural thickening of small intestine (Acute) Abnormal CT scan (Acute) Atypical chest pain (Acute) Abdominal pain (Acute) Abnormal transaminases (Acute) Abdominal pain (Acute) Intractable nausea and vomiting (Acute) Dysuria (Acute) Transaminitis (Acute) DRUJ (distal radioulnar joint) instability, post-traumatic (Acute) Carpal tunnel syndrome of left wrist (Acute) Nondisplaced fracture of left ulna styloid process, sequela (Acute) Current use of anticoagulant therapy (Acute) Numbness and tingling in left hand (Acute) Closed fracture of left distal radius (Acute) Diabetes (Acute) Sacroiliac joint dysfunction (Acute) ANGIE (obstructive sleep apnea) (Acute) Asthma (Acute) Piriformis syndrome of left side (Acute) Anemia (Acute) GERD (gastroesophageal reflux disease) (Acute) Chronic idiopathic constipation (Acute) Dysphagia (Acute) Chronic UTI (urinary tract infection) (Acute) Anastomotic ulcer (Acute) Lumbar spondylosis (Acute) Right lumbar radiculopathy (Acute) Recurrent falls while walking (Acute) Coccygodynia (Acute) Patellofemoral arthralgia of right knee (Acute) Chronic left shoulder pain (Acute) Radiculopathy of cervical spine (Acute) Lumbar degenerative disc disease (Acute) VAZQUEZ (nonalcoholic steatohepatitis) (Acute) Vitamin D deficiency (Acute) Hypothyroidism (Acute) Osteoporosis (Chronic) Past Medical History Medical History Abdominal pain Dysuria Myocardial infarction Left hip pain Sacroiliac joint pain Elevated liver enzymes Right knee pain Left lumbar radiculitis Lumbago with sciatica Sepsis Right anterior knee pain Nausea and vomiting Candidiasis of mouth and esophagus Medication monitoring encounter Abnormal findings on diagnostic imaging of musculoskeletal system Asthma ANGIE (obstructive sleep apnea) Diabetes Esophageal dysmotilities Esophageal candidiasis Pneumonia Cystitis Recurrent UTI (urinary tract infection) Vitamin D deficiency Hypothyroidism Osteoporosis B12 deficiency Iron deficiency anemia IBS (irritable bowel syndrome) Family History Family History Father No problems noted. Mother Stomach cancer Diabetes mellitus CVD (cardiovascular disease) Heart attack Arthritis of knee Sister COVID-19 Paternal Aunt Cancer Maternal Aunt Cancer Paternal Uncle Cancer Family history of problems with anesthesia: No Surgical History Surgical History H/O hand surgery H/O heart surgery Hx of gastric bypass History of esophagogastroduodenoscopy (EGD) Hx of colonoscopy History of arthroscopy of left shoulder History of Problems with Anesthesia: No Social History Social History Household Members: Spouse Housing: House Are you a primary healthcare or medical to a significant other at home: No Do you presently have visiting nurse or other home services: Yes ([employer].) Alcohol intake: never 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 If so, by whom?: No Do you feel safe in your current relationship?: Yes Is there a partner from a previous relationship who is making you feel unsafe now?: No Are you made to feel afraid or neglected: No [facility] Practices: Christian. Advance Directives: No Advance Directives Information Provided: Yes Do you have a plan to hurt others: No Plan Recently lost weight without trying: Yes How much weight loss: 2-13 pounds Eating poorly because of decreased appetite: Yes Nutrition screen score: 4 Nutrition Risks: Poor intake 0-25% >4 days Patient : No : No Poor oral hygiene: No service: No Current occupational status: disabled Meds Allergies Allergy/AdvReac Type Severity Reaction Status Date / Time No Known Allergies Allergy Verified 11/14/24 13:02 [No Known Allergies*] Active Medications: Current Medications Acetaminophen (Acetaminophen 325 Mg Tablet) 650 mg PO Q6H PRN PRN Reason: Pain, Mild 1-3,fever,headache Last Admin: 11/13/24 21:25 Dose: 650 mg Lipase/Protease/Amylase (Lipase/Prot/Amylase 24/76/120k 1 Cap Capsule.Dr) 1 cap PO BID AMINA Last Admin: 11/14/24 09:56 Dose: 1 cap Ascorbic Acid (Ascorbic Acid 500 Mg Tablet) 500 mg PO BID [facility] Last Admin: 11/14/24 09:56 Dose: 500 mg Calcium Carbonate (Calcium Carbonate 750 Mg Tab.Chew) 750 mg PO Q4H PRN PRN Reason: Heartburn Clonazepam (Clonazepam 1 Mg Tablet) 1 mg PO BID PRN PRN Reason: Anxiety Clotrimazole (Clotrimazole 1 % Cream 15 Gm Tube) 1 appl TOPICAL DAILY [facility]; Protocol Last Admin: 11/14/24 10:00 Dose: Not Given Dextrose (Dextrose 50 % 25 Gm/50 Ml Syringe) 25 gm IVPUSH Q15M PRN; Protocol PRN Reason: per Hypoglycemia Standing Ord. Last Admin: 11/12/24 14:30 Dose: 12.5 gm Enoxaparin Sodium (Enoxaparin Sodium 40 Mg/0.4 Ml Syringe) 40 mg SUBCUT Q24H [facility] Last Admin: 11/14/24 11:40 Dose: Not Given Famotidine (Famotidine 20 Mg Tablet) 20 mg PO DAILY [facility] Last Admin: 11/14/24 09:56 Dose: 20 mg Fluticasone/Umeclidinium/Vilanterol (Fluticasone/Umeclidinium/Vilanterol 200/62.5/25 Blst.W.Dev) 1 puff INHALE RDAILY [facility] Last Admin: 11/14/24 07:58 Dose: 1 puff Folic Acid (Folic Acid 1 Mg Tablet) 1 mg PO DAILY [facility] Last Admin: 11/14/24 09:56 Dose: 1 mg Gabapentin (Gabapentin 600 Mg Tablet) 600 mg PO TID [facility] Last Admin: 11/14/24 09:56 Dose: 600 mg Dextrose/Lactated Ringer's (D5lr) 1,000 mls @ 80 mls/hr IVCONT .[id number] [facility] Last Infusion: 11/14/24 12:48 Dose: 0 mls/hr Insulin Human Lispro (Insulin Lispro 100 Unit/Ml 3 Ml Vial) 0 unit SUBCUT QIDACHS [facility]; Protocol Last Admin: 11/14/24 11:38 Dose: Not Given Isosorbide Mononitrate (Isosorbide Mononitrate 30 Mg Tab.Er.24h) 30 mg PO DAILY [facility]; Protocol Last Admin: 11/14/24 09:56 Dose: 30 mg Lactulose (Lactulose 20 Gm/30 Ml Solution) 20 gm PO BID [facility] Last Admin: 11/14/24 10:01 Dose: Not Given Lactulose (Lactulose 20 Gm/30 Ml Solution) 20 gm PO TID PRN PRN Reason: Constipation Levothyroxine Sodium (Levothyroxine Sodium 125 Mcg Tablet) 125 mcg PO DAILY@0600 [facility] Last Admin: 11/14/24 05:33 Dose: 125 mcg Magnesium Hydroxide (Milk Of Magnesia 30 Ml Oral.Susp) 30 ml PO DAILY PRN PRN Reason: Constipation Melatonin (Melatonin 3 Mg Tablet) 6 mg PO BEDTIME PRN PRN Reason: Insomnia Last Admin: 11/13/24 21:30 Dose: 6 mg Metoprolol Succinate (Metoprolol Succinate Er 50 Mg Tab.Er.24h) 50 mg PO DAILY [facility]; Protocol Last Admin: 11/14/24 09:56 Dose: 50 mg Mirtazapine (Mirtazapine 7.5 Mg Tablet) 7.5 mg PO BEDTIME [facility] Last Admin: 11/13/24 19:51 Dose: 7.5 mg Montelukast Sodium (Montelukast Sodium 10 Mg Tablet) 10 mg PO BEDTIME [facility] Last Admin: 11/13/24 19:52 Dose: 10 mg Morphine Sulfate (Morphine Sulfate 4 Mg/Ml Cartridge) 2 mg IVPUSH Q4H PRN; Protocol PRN Reason: Pain, Severe (Pain Scale 7-10) Last Admin: 11/14/24 09:55 Dose: 2 mg Multivitamins/Vitamin C (Multivitamin Tablet) 1 tab PO DAILY [facility] Last Admin: 11/14/24 09:56 Dose: 1 tab Nystatin (Nystatin Powder 15 Gm Bottle) 1 appl TOPICAL BID [facility]; Protocol Last Admin: 11/14/24 10:00 Dose: 1 appl Omeprazole (Omeprazole 20 Mg Capsule.Dr) 20 mg PO BID@0630,1630 [facility] Last Admin: 11/14/24 05:33 Dose: 20 mg Ondansetron HCl (Ondansetron Hcl 4 Mg/2 Ml Vial) 4 mg IVPUSH Q8H PRN PRN Reason: Nausea and Vomiting Sodium Chloride (0.9 % Sodium Chloride Flush 3 Ml Syringe) 3 ml IVFLUSH QSHIFT [facility] Last Admin: 11/14/24 07:15 Dose: Not Given Topiramate (Topiramate 25 Mg Tablet) 25 mg PO DAILY [facility] Last Admin: 11/14/24 09:57 Dose: 25 mg Venlafaxine HCl (Venlafaxine Hcl Er 150 Mg Cap.Er.24h) 150 mg PO DAILY [facility] Last Admin: 11/14/24 09:56 Dose: 150 mg Venlafaxine HCl (Venlafaxine Hcl Er 75 Mg Cap.Er.24h) 75 mg PO DAILY [facility] Last Admin: 11/14/24 09:57 Dose: 75 mg Vitamin D (Cholecalciferol (Vitamin D3) 25 Mcg Tablet) 50 mcg PO DAILY [facility] Last Admin: 11/14/24 09:56 Dose: 50 mcg Home Medications ?Medication ?Instructions ?Recorded ?Confirmed ?Last Taken ?Type ascorbic acid (vitamin C) 500 mg 500 mg PO BID 07/17/20 11/11/24 11/10/24 History tablet (Vitamin C) aspirin 81 mg tablet,delayed 81 mg PO DAILY 07/17/20 11/11/24 11/10/24 History release montelukast 10 mg tablet 10 mg PO BEDTIME 08/10/20 11/11/24 11/10/24 History blood sugar diagnostic #10 ea 09/12/20 05/16/24 Unknown History clonazepam 1 mg tablet 1 mg PO BID PRN Anxiety 09/12/20 11/11/24 Unknown History dulaglutide 0.75 mg/0.5 mL 0.75 mg subcut QWEEK 09/12/20 11/14/24 11/07/24 History subcutaneous pen injector lancets 33 gauge #100 ea 09/12/20 05/16/24 Unknown History metformin 500 mg tablet,extended 500 mg PO BID 09/12/20 11/11/24 11/10/24 History release 24 hr albuterol sulfate 90 mcg/actuation 2 inh inhalation Q4H PRN Shortness 12/02/21 11/11/24 Unknown History aerosol inhaler (Ventolin HFA) Of Breath Or Wheezing rosuvastatin 40 mg tablet 40 mg PO DAILY 12/02/21 11/11/24 11/10/24 History multivitamin-ferrous 1 tab PO DAILY 12/17/21 11/11/24 11/10/24 History fumarate-folic acid 18 mg-400 mcg tablet (Certavite-Antioxidant) diclofenac sodium 1 % topical gel 1 g topical BID PRN Pain 02/11/22 11/11/24 Unknown History metoprolol succinate 50 mg 50 mg PO DAILY 10/09/22 11/11/24 11/10/24 History tablet,extended release 24 hr gabapentin 600 mg tablet 600 mg PO TID 05/11/11/24 11/10/24 History CPAP (CPAP Machine/Device) 03/24/23 05/16/24 Unknown History CPAP (CPAP Machine/Device) 07/31/23 05/16/24 Unknown History levothyroxine 125 mcg tablet 125 mcg PO DAILY@0600 07/31/23 11/11/24 11/10/24 History dapagliflozin propanediol 10 mg 10 mg PO DAILY 09/30/23 11/11/24 11/10/24 History tablet (Farxiga) ticagrelor 90 mg tablet (Brilinta) 90 mg PO BID 09/30/23 11/11/24 11/10/24 History isosorbide mononitrate 30 mg 30 mg PO DAILY 03/24/24 11/11/24 11/10/24 History tablet,extended release 24 hr topiramate 25 mg tablet 25 mg PO DAILY 03/24/24 11/11/24 11/10/24 History venlafaxine 75 mg capsule,extended 75 mg PO DAILY 09/29/24 11/11/24 11/10/24 History release 24 hr bisacodyl 5 mg tablet,delayed 15 mg PO BEDTIME PRN Constipation 11/11/24 11/11/24 Unknown History release (Dulcolax (bisacodyl)) clotrimazole 1 % topical cream 1 appl topical DAILY 11/11/24 11/11/24 11/10/24 History lactulose 10 gram/15 mL oral 30 ml PO TID PRN Constipation 11/11/24 11/11/24 11/10/24 History solution linaclotide 290 mcg capsule 290 mcg PO DAILY 11/11/24 11/11/24 11/10/24 History (Linzess) mirtazapine 7.5 mg tablet 7.5 mg PO BEDTIME 11/11/24 11/11/24 11/10/24 History nitroglycerin 0.3 mg sublingual 0.3 mg sublingual DIRECTED 11/11/24 11/11/24 11/10/24 History tablet nystatin 100,000 unit/gram topical 1 appl topical BID 11/11/24 11/11/24 11/10/24 History powder pantoprazole 40 mg tablet,delayed 40 mg PO BID@0630,1630 11/11/24 11/11/24 11/10/24 History release venlafaxine 150 mg 150 mg PO DAILY 11/11/24 11/11/24 11/10/24 History capsule,extended release 24 hr [id number] 1 cap PO BID 11/12/24 11/12/24 11/10/24 History 24,000-76,000-120,000 unit capsule,delayed rel (Creon) Exam Height,Weight and Vital Signs: Height 5 ft Weight 64.3 kg Last Vital Signs Temp 98.4 F 11/14/24 07:21 Pulse 69 11/14/24 08:00 Resp 16 11/14/24 08:00 BP 132/59 L 11/14/24 09:56 Pulse Ox 96 11/14/24 07:21 O2 Del Method Room Air 11/14/24 07:21 Pertinent Lab Results Pertinent Lab Results: Laboratory Tests 11/11/24 11/11/24 11/12/24 10:18 19:16 07:17 WBC 9.4 RBC 3.97 L Hgb 11.9 L Hct 37.0 MCV 93.2 MCH 30.0 MCHC 32.2 RDW 15.4 Plt Count 256 MPV 11.0 Immature Gran % (Auto) 0.3 Neut % (Auto) 66.7 Lymph % (Auto) 22.9 Oliver % (Auto) 6.3 Eos % (Auto) 3.4 Baso % (Auto) 0.4 Lymph # (Auto) 2.2 Oliver # (Auto) 0.6 Eos # (Auto) 0.3 Baso # (Auto) 0.0 Abs Immat Gran (auto) 0.03 Absolute Neuts (auto) 6.3 Absolute Nucleated RBC 0.000 Nucleated RBC % (auto) 0.0 Sodium 140 Potassium 3.6 Chloride 109 H Carbon Dioxide 22 Anion Gap 13 BUN 15 Creatinine 0.86 Estim Creat Clear Calc 47.4 Estimated GFR > 60 POC Glucose 152 H 77 Random Glucose 166 H Calcium 9.1 D Total Bilirubin 0.5 Direct Bilirubin 0.2 GGT 221 H AST 550 H ALT 102 H Alkaline Phosphatase 146 H Lactate Dehydrogenase 514 H Troponin I High Sens < 2.7 D Total Protein 6.6 Albumin 3.9 Lipase 9 Alpha Fetoprotein Cancelled Carcinoembryonic Ag 11/12/24 11/12/24 11/12/24 07:53 10:57 14:23 WBC 7.2 RBC 3.77 L Hgb 11.5 L Hct 34.6 L MCV 91.8 MCH 30.5 MCHC 33.2 RDW 15.4 Plt Count 248 MPV 10.4 Immature Gran % (Auto) 0.4 Neut % (Auto) 69.1 Lymph % (Auto) 14.6 L Oliver % (Auto) 10.3 Eos % (Auto) 5.2 H Baso % (Auto) 0.4 Lymph # (Auto) 1.1 L Oliver # (Auto) 0.7 Eos # (Auto) 0.4 Baso # (Auto) 0.0 Abs Immat Gran (auto) 0.03 Absolute Neuts (auto) 5.0 Absolute Nucleated RBC 0.000 Nucleated RBC % (auto) 0.0 Sodium 142 Potassium 4.6 D Chloride 109 H Carbon Dioxide 26 Anion Gap 12 BUN 7 L Creatinine 0.72 Estim Creat Clear Calc 59.1 Estimated GFR > 60 POC Glucose 167 H 36 L* Random Glucose 71 Calcium 8.7 Total Bilirubin 0.4 Direct Bilirubin 0.2 GGT 217 H AST 373 H ALT 403 H Alkaline Phosphatase 149 H Lactate Dehydrogenase Troponin I High Sens Total Protein 5.9 L Albumin 3.3 L Lipase Alpha Fetoprotein Carcinoembryonic Ag 4.80 11/12/24 11/12/24 11/12/24 14:38 15:00 15:33 WBC RBC Hgb Hct MCV MCH MCHC RDW Plt Count MPV Immature Gran % (Auto) Neut % (Auto) Lymph % (Auto) Oliver % (Auto) Eos % (Auto) Baso % (Auto) Lymph # (Auto) Oliver # (Auto) Eos # (Auto) Baso # (Auto) Abs Immat Gran (auto) Absolute Neuts (auto) Absolute Nucleated RBC Nucleated RBC % (auto) Sodium Potassium Chloride Carbon Dioxide Anion Gap BUN Creatinine Estim Creat Clear Calc Estimated GFR POC Glucose 177 H 169 H 116 H Random Glucose Calcium Total Bilirubin Direct Bilirubin GGT AST ALT Alkaline Phosphatase Lactate Dehydrogenase Troponin I High Sens Total Protein Albumin Lipase Alpha Fetoprotein Carcinoembryonic Ag 11/12/24 11/12/24 11/13/24 16:17 19:16 07:18 WBC RBC Hgb Hct MCV MCH MCHC RDW Plt Count MPV Immature Gran % (Auto) Neut % (Auto) Lymph % (Auto) Oliver % (Auto) Eos % (Auto) Baso % (Auto) Lymph # (Auto) Oliver # (Auto) Eos # (Auto) Baso # (Auto) Abs Immat Gran (auto) Absolute Neuts (auto) Absolute Nucleated RBC Nucleated RBC % (auto) Sodium Potassium Chloride Carbon Dioxide Anion Gap BUN Creatinine Estim Creat Clear Calc Estimated GFR POC Glucose 113 113 81 Random Glucose Calcium Total Bilirubin Direct Bilirubin GGT AST ALT Alkaline Phosphatase Lactate Dehydrogenase Troponin I High Sens Total Protein Albumin Lipase Alpha Fetoprotein Carcinoembryonic Ag 11/13/24 11/13/24 11/13/24 11:02 15:58 20:29 WBC RBC Hgb Hct MCV MCH MCHC RDW Plt Count MPV Immature Gran % (Auto) Neut % (Auto) Lymph % (Auto) Oliver % (Auto) Eos % (Auto) Baso % (Auto) Lymph # (Auto) Oliver # (Auto) Eos # (Auto) Baso # (Auto) Abs Immat Gran (auto) Absolute Neuts (auto) Absolute Nucleated RBC Nucleated RBC % (auto) Sodium Potassium Chloride Carbon Dioxide Anion Gap BUN Creatinine Estim Creat Clear Calc Estimated GFR POC Glucose 148 H 119 H 93 Random Glucose Calcium Total Bilirubin Direct Bilirubin GGT AST ALT Alkaline Phosphatase Lactate Dehydrogenase Troponin I High Sens Total Protein Albumin Lipase Alpha Fetoprotein Carcinoembryonic Ag 11/14/24 11/14/24 11/14/24 05:30 07:24 11:15 WBC 4.7 L RBC 4.15 L Hgb 12.6 Hct 38.4 MCV 92.5 MCH 30.4 MCHC 32.8 RDW 15.0 Plt Count 270 MPV 10.7 Immature Gran % (Auto) 0.4 Neut % (Auto) 49.1 Lymph % (Auto) 31.4 Oliver % (Auto) 11.5 H Eos % (Auto) 7.0 H Baso % (Auto) 0.6 Lymph # (Auto) 1.5 Oliver # (Auto) 0.5 Eos # (Auto) 0.3 Baso # (Auto) 0.0 Abs Immat Gran (auto) 0.02 Absolute Neuts (auto) 2.3 Absolute Nucleated RBC 0.000 Nucleated RBC % (auto) 0.0 Sodium 142 Potassium 5.1 Chloride 111 H Carbon Dioxide 25 Anion Gap 11 L BUN 6 L Creatinine 0.73 Estim Creat Clear Calc 57.4 Estimated GFR > 60 POC Glucose 108 109 Random Glucose 91 Calcium 8.9 Total Bilirubin Direct Bilirubin GGT AST ALT Alkaline Phosphatase Lactate Dehydrogenase Troponin I High Sens Total Protein Albumin Lipase Alpha Fetoprotein Carcinoembryonic Ag Airway Mallampati Class: II (edentulous) TM Dist: >3cm Denture: Upper and Lower Loose/Missing/Broken Teeth: Yes, Upper and Lower Heart: RRR Lungs: CTA Assessment and Plan Assessment Anesthesia Assessment: Anesthesia Plan Discussed and Chart Reviewed Final Anesthetic Review Family History of Problems with Anesthesia: No History of Problems with Anesthesia: No NPO: Yes ASA Class: III Final Preanesthetic Review: Meds/Allgs Chart Reviewed, Consent Obtained/Reviewed and Anes Risks/Benef Reviewed Patient Risk: Intermediate Procedure Risk: Intermediate Anesthetic Plan Anesthetic Plan: MAC: Disposition: Standard PACU
[2024-11-14 13:22] LABS: Glucose, Whole Blood 109 mg/dL (60-115)
--- NOTE | 2024-11-14 13:43 | W.PM.OPN ---
Operative Note Operative Note Date of Service: 11/14/24 Narrative: FLEXIBLE TRANSORAL UPPER GASTROINTESTINAL ENDOSCOPY AND SMALL BOWEL ENTEROSCOPY WITH BIOPSIES Pre-op diagnosis: Abdominal pain, abnormal CT scan of abdomen Post-op diagnosis: Anatomotic ulcer at maurice loop anastomosis, Maurice en Y gastric bypass status Endoscopist:? Isabel Tovar MD Anesthesia:?MAC UPPER ENDOSCOPY Consent: Indications for the procedure and potential complications of bleeding, perforation, reaction to medications and missed diagnosis were discussed with the patient and informed consent was obtained. Instrument: Olympus CF 190 variable stiffness pediatric colonoscope Monitoring: Vital signs and clinical assessment, continuous EKG monitoring, Pulse oximetry, Carbon Dioxide monitoring and blood pressure monitoring were done throughout the procedure. Procedure: The patient was placed in the left lateral decubitis position and pre-procedure medications were administered and a bite block was placed. The endoscope was inserted into the mouth and advanced under direct vision to the third part of duodenum. A careful inspection was made as the upper endoscope was withdrawn including a retroflexed examination of the proximal stomach; Findings and interventions are described below. Findings: Larynx: Normal Esophagus: Tortuous esophagus with increased tertiary contractions without stricture or ring. GE junction at 32 cms. No esophagitis or Carrasquillo?s. Stomach: Maurice en Y gastric bypass status. Small gastric pouch from 32 to 35 cms. Normal anastomosis without ulcers. Mild gastric erythema. Biopsies were obtained from the gastric pouch. Duodenum/Jejunum: Maurice loop anastomosis reached at 120 cms - appeared patent without stenosis. A 2 cms long, 2-3 mm wide linear chronic appearing ulcer at anastomotic site - biopsies were obtained Intervention: Biopsies as noted above Impression and Post Procedure Diagnosis: Endoscopy Findings: ESOPHAGUS: Tortuous esophagus with increased tertiary contractions without stricture or ring. STOMACH: Small gastric pouch from 32 to 35 cms. Normal anastomosis without ulcers. Mild gastric erythema. Biopsies were obtained from the gastric pouch. DUODENUM/JEJUNUM: Maurice loop anastomosis reached at 120 cms - appeared patent without stenosis. A 2 cms long, 2-3 mm wide linear chronic appearing ulcer at anastomotic site - biopsies were obtained Abdominal pain possibly related to anatomotic ulcer versus constipation Plan: Continue Pantoprazole 40 mg twice a day for peptic ulcer disease. Await MRCP results. Pt can schedule a FU appointment with Aniya Barahona NP after she is discharged. Above findings were reviewed with the patient and relevant handouts were given and the discharge area. BIOPSIES SHOWED: A. Small bowel, anastomosis, biopsy: Duodenal mucosa with active duodenitis, focally flattened villi with evidence of chronic injury, and granulation tissue with erosion; no evidence of dysplasia or malignancy. B. Stomach, biopsy: Gastric body mucosa with minimal chronic inactive gastritis; negative for H.pylori, intestinal metaplasia and dysplasia
[2024-11-14] MEDS: 0.9 % Sodium Chloride Flush 3 ML SYRINGE IVFLUSH (15:36)
[2024-11-14 17:00] LABS: Glucose, Whole Blood 113 mg/dL (60-115)
[2024-11-14] MEDS: Acetaminophen 325 MG TABLET 650 MG PO (17:12)
[2024-11-14] MEDS: Lactulose 20 GM/30 ML SOLUTION PO (20:01)
[2024-11-14] MEDS: Montelukast Sodium 10 MG TABLET PO (20:01)
[2024-11-14] MEDS: Mirtazapine 7.5 MG TABLET PO (20:01)
[2024-11-14 20:25] LABS: Glucose, Whole Blood 145 mg/dL (60-115)
[2024-11-15 02:59] VITALS: BP 119/55; PULSE 76; RESP 18; TEMP 36.4; O2SAT 95
[2024-11-15] MEDS: Morphine Sulfate 4 MG/ML CARTRIDGE 2 MG IVPUSH (03:07)
[2024-11-15] MEDS: Acetaminophen 325 MG TABLET 650 MG PO (03:12)
[2024-11-15] MEDS: ondansetron HCL 4 MG/2 ML VIAL IVPUSH (03:22)
[2024-11-15] MEDS: Levothyroxine Sodium 125 MCG TABLET PO (05:25)
[2024-11-15] MEDS: Omeprazole 20 MG CAPSULE.DR PO (05:25)
[2024-11-15] MEDS: Dextrose 5 % and Lactated Ring 1,000 ML 80 ML IVCONT (05:28)
[2024-11-15 05:49] LABS: MANUAL DIFF FLAG NO
[2024-11-15 05:54] LABS: Basophils Absolute Auto 0.1 X10*3/uL (0.0-0.2); Eosinophils Absolute Auto 0.4 X10*3/uL (0.0-0.4); Eosinophils Percent Auto 6.4 % (0-4); Hemoglobin 12.6 g/dl (12.0-16.0); Imm Gran Abs Auto 0.02 X10*3/uL (0.00-0.03); Imm Gran Pct Auto 0.3 % (0.0-0.4); Lymphocytes Absolute Auto 1.6 X10*3/uL (1.2-4.9); Lymphocytes Percent Auto 27.1 % (20-40); Mean Corpuscular HGB Conc 32.3 g/dl (31.0-35.0); Mean Corpuscular Hemoglobin 30.4 pg (27.0-33.0); Mean Platelet Volume 10.8 fL (9.4-12.3); Monocytes Absolute Auto 0.6 X10*3/uL (0.1-1.2); Monocytes Percent Auto 10.3 % (2-11); Neutrophils Absolute Auto 3.2 x10*3/uL (2.0-8.3); Neutrophils Percent Auto 54.9 % (45-73); Platelet Count 301 X10*3/uL (160-400); Red Blood Count 4.15 X10*6/uL (4.20-5.50); White Blood Count 5.8 X10*3/uL (4.8-10.8)
[2024-11-15 06:11] LABS: Anion Gap 11 (12-20); Blood Urea Nitrogen 5 mg/dL (9-16); Calcium 9.1 mg/dL (8.4-10.2); Carbon Dioxide 27 mmol/L (22-29); Chloride 109 mmol/L (96-108); Creatinine Clr Calc Pharmacy 61.6; Estimated Glomerular Filt Rate > 60; Glucose Random 95 mg/dL (60-115); Potassium 4.1 mmol/L (3.3-5.1); Sodium 143 mmol/L (135-145)
[2024-11-15 07:22] VITALS: BP 134/65; PULSE 70; RESP 18; O2SAT 96
[2024-11-15] MEDS: Fluticasone/Umeclidinium/Vilanterol 200/62.5/25 BLST.W.DEV 1 PUFF INHALE (07:38)
[2024-11-15 07:40] VITALS: PULSE 67; RESP 18; O2SAT 96
[2024-11-15 07:44] LABS: Glucose, Whole Blood 95 mg/dL (60-115)
--- NOTE | 2024-11-15 08:32 | HO.POSTANES ---
Post Anesthesia Evaluation Post Anesthesia Evaluation Date of Service: 11/15/24 Vital Signs: Vital Signs Temp Pulse Resp BP Pulse Ox O2 Del Method 11/15/24 07:40 67 18 11/15/24 07:22 70 18 134/65 96 Room Air 11/15/24 02:59 97.6 F 76 18 119/55 L 95 Room Air 11/14/24 22:00 98.8 F 69 18 120/58 L 94 Room Air Anesthesia: Monitored Mental Status: Awake Pain Control: Satisfactory Nausea/Vomiting: None Hydration: Adequate Anesthesia-Related Issues: No Anes. Related Issues
[2024-11-15 09:31] VITALS: BP 134/65
[2024-11-15] MEDS: Lipase/Prot/Amylase 24/76/120K 1 CAP CAPSULE.DR PO (09:31)
[2024-11-15] MEDS: Topiramate 25 MG TABLET PO (09:31)
[2024-11-15] MEDS: Folic Acid 1 MG TABLET PO (09:31)
[2024-11-15] MEDS: Multivitamin TABLET 1 TAB PO (09:31)
[2024-11-15] MEDS: Metoprolol Succinate ER 50 MG TAB.ER.24H PO (09:31)
[2024-11-15] MEDS: Venlafaxine HCl ER 75 MG CAP.ER.24H PO (09:31)
[2024-11-15] MEDS: Venlafaxine HCl ER 150 MG CAP.ER.24H PO (09:31)
[2024-11-15] MEDS: Cholecalciferol (Vitamin D3) 25 MCG TABLET 50 MCG PO (09:31)
[2024-11-15] MEDS: Isosorbide Mononitrate 30 MG TAB.ER.24H PO (09:31)
[2024-11-15] MEDS: Gabapentin 600 MG TABLET PO (09:31)
[2024-11-15] MEDS: Ascorbic Acid 500 MG TABLET PO (09:32)
[2024-11-15] MEDS: Lactulose 20 GM/30 ML SOLUTION PO (09:32)
[2024-11-15] MEDS: Famotidine 20 MG TABLET PO (09:32)
[2024-11-15] MEDS: Nystatin Powder 15 GM BOTTLE 1 APPL TOPICAL (09:33)
[2024-11-15] MEDS: Ketorolac Tromethamine 15 MG/ML VIAL IVPUSH (10:17)
[2024-11-15] MEDS: Butalb/Acetamin/Caff 50/325/40 TABLET 2 TAB PO (10:21)
[2024-11-15 11:33] LABS: Glucose, Whole Blood 119 mg/dL (60-115)
[2024-11-15] MEDS: Enoxaparin Sodium 40 MG/0.4 ML SYRINGE SUBCUT (12:02)
--- NOTE | 2024-11-15 13:19 | P.DS_ITS ---
DS: Providers Provider Date of Service: 11/15/24 Date of admission: 11/11/24 14:06 Date of discharge: 11/15/24 Primary care physician: Mary Rivera MD Consults: 11/11/24 14:02 Consult to Gastroenterology Routine Consulting Provider: Isabel Tovar Reason for consultation: Abdominal pain, gastric mass DS: Diagnosis Discharge Diagnosis (1) Dilated cbd, acquired: Status: Acute (2) Mural thickening of small intestine: Status: Acute (3) Abnormal CT scan: Status: Acute (4) Anastomotic ulcer: Status: Acute DS: Summary Hospital Course Hospital Course: Admission note HPI A 73 years old lady with PMH of type II DM, asthma, VAZQUEZ, Hx Gastric vypass, CAD s\p PCI 2003, hypothyroid among others who presented to ED complaininf of abdominal and chest pain for the last 3 days. She was unable to tolerate food or drink with severe burning sensation associated with nausea and vomiting. no reported hematemesis or melena. No chest pain, palpitations, SOB, diarrhea or urinary symptoms. She reports weight loss of almost 10 lbs last 3-4 months. She was noted to have progressive transaminitis by GI provider and asked to come to ED for further work up and evaluation. In ED had a CT scan of abdomen showing signfiicant constipation and Abnormal small bowel wall thickening adjacent to an anastomosis in the left midabdomen. Neoplasm in this region is not excluded. she will be admitted for further evalaution and possible GI intervention. Hospital course The patient was treated for: Intractable nausea and vomiting which is likey a result of anastomasis site peptic ulcer with no evidence of mass as CT scan of abd concerning for possible gastric mass upon admission. EKG and Trop negative for atypical chest pain. Started on IV Pantoprazole as GI consulted and did EGD which found anastomasis site peptic ulcer and recommended Pantoprazole 40 mg bid and to avoid NSAIDs. To discontinue Brilinta on time of discharge as she had her PCI in 08/2023 and it has been more that 1 year for DAP. To continue baby Aspirin only after discussing with cardiology. She was also noted to have acute on chronic Transaminitis with Hx of Fatty liver , CT reported mild intra and extrahepatic biliary ductal dilatation without significant change that was evaluated by MRCP which showed previous cholecystectomy. Diameter of the common bile duct with is within normal limits in the setting. Small cystic lesions in the pancreas are likely incidental. If clinically warranted consider comparison to previous or follow-up MR to assess for long-term stability. to follow with primary GI as outpatient. AFP and CEA negative. She has DMII with hypoglycemic event as she was not eating. recovered. oral intake improved. started on diabetic diet with SSI. Discharge plan Stop Brilinta (Ticagrelor) Continue Pantoprazole 40 mg twice a day Continue Famotidine 20 mg daily Fiorecit as needed for headache Follow with [facility] as outpatient Time Attestation Discharge Coordination Time (in mins): 41 Quality: Safe Use of Opioids Does Pt have an Active Cancer Diagnosis on the Problem List?: No Quality: Stroke Does the patient have a stroke diagnosis?: No Physical Exam Vital Signs: Vital Signs: Last Vital Signs Temp 97.6 F 11/15/24 02:59 Pulse 67 11/15/24 07:40 Resp 18 11/15/24 07:40 BP 134/65 11/15/24 09:31 Pulse Ox 96 11/15/24 07:22 O2 Del Method Room Air 11/15/24 07:22 BMI result Body Mass Index 27.7 Const: Other: Constitutional : interactive, not in distress Cardiovascular : no JVP, no lower extremity edema Respiratory : bilateral chest movement, not in resp distress Gastrointestinal: soft, lax, no tenderness, no surgical signs Skin : Warm, Dry Neurological : Alert & oriented , No focal deficit DS: Data Data Completed and Pending Completed studies during hospitalization [Text1]: Procedures Insertion of Infusion Device into Right Basilic Vein, Percutaneous Approach (10/09/20) Pending studies at discharge: Pending at discharge 11/14/24 13:39 Surgical [PTH] Routine Labs on day of discharge: Laboratory Results - last 24 hr 11/14/24 11/14/24 11/14/24 13:10 16:56 20:21 WBC RBC Hgb Hct MCV MCH MCHC RDW Plt Count MPV Immature Gran % (Auto) Neut % (Auto) Lymph % (Auto) [place] % (Auto) Eos % (Auto) Baso % (Auto) Lymph # (Auto) [place] # (Auto) Eos # (Auto) Baso # (Auto) Abs Immat Gran (auto) Absolute Neuts (auto) Absolute Nucleated RBC Nucleated RBC % (auto) Sodium Potassium Chloride Carbon Dioxide Anion Gap BUN Creatinine Estim Creat Clear Calc Estimated GFR POC Glucose 109 113 145 H Random Glucose Calcium 11/15/24 11/15/24 11/15/24 05:09 07:40 11:28 WBC 5.8 RBC 4.15 L Hgb 12.6 Hct 39.0 MCV 94.0 MCH 30.4 MCHC 32.3 RDW 15.0 Plt Count 301 MPV 10.8 Immature Gran % (Auto) 0.3 Neut % (Auto) 54.9 Lymph % (Auto) 27.1 [place] % (Auto) 10.3 Eos % (Auto) 6.4 H Baso % (Auto) 1.0 Lymph # (Auto) 1.6 [place] # (Auto) 0.6 Eos # (Auto) 0.4 Baso # (Auto) 0.1 Abs Immat Gran (auto) 0.02 Absolute Neuts (auto) 3.2 Absolute Nucleated RBC 0.000 Nucleated RBC % (auto) 0.0 Sodium 143 Potassium 4.1 Chloride 109 H Carbon Dioxide 27 Anion Gap 11 L BUN 5 L Creatinine 0.68 Estim Creat Clear Calc 61.6 Estimated GFR > 60 POC Glucose 95 119 H Random Glucose 95 Calcium 9.1 Imaging MRI - abdomen: Radiologist's impression: ITS Impressions Chest X-Ray 11/11/24 10:04 IMPRESSION: No active pulmonary disease. Electronically signed by: Chris Adames MD 11/11/2024 10:35 AM EDT Abdomen/Pelvis CT 11/11/24 13:09 IMPRESSION: 1. Abnormal small bowel wall thickening adjacent to an anastomosis in the left midabdomen. Neoplasm in this region is not excluded. 2. Large amount of stool throughout the colon. Electronically signed by: Frank Andersen MD 11/11/2024 01:46 PM EDT RP MRCP: Suspect previous cholecystectomy. Diameter of the common bile duct with is within normal limits in the setting. Small cystic lesions in the pancreas are likely incidental. If clinically warranted consider comparison to previous or follow-up MR to assess for long-term stability. Discharge Plan Discharge Anticipated Discharge Date/Time: 11/15/24 13:03 Patient Disposition: Home Health Service Discharge Diagnosis: Anastamosis site ulcer Referrals: Mary Rod MD [Primary Care Provider] - 1 Week Discharge Medications: New fjhckcucbe-nymxwiezajkzx-obdu 50-325-40 mg Tablet 1 tab PO Q4H PRN (Reason: headache) Qty: 20 0RF Continued cholecalciferol (vitamin D3) 50 mcg (2,000 unit) capsule 50 mcg PO DAILY 30 Days Qty: 30 6RF Rx Instructions: Dose decreased to 2000 international units daily. acetaminophen 325 mg tablet 650 mg PO Q6H PRN (Reason: fever or pain) 14 Days Qty: 120 0RF tramadol 50 mg tablet 50 mg PO QID Qty: 120 4RF folic acid 1 mg Tablet 1 mg PO DAILY Qty: 90 5RF famotidine 20 mg tablet 20 mg PO DAILY Qty: 30 6RF aspirin 81 mg Tablet,Delayed Release (Dr/Ec) 81 mg PO DAILY ascorbic acid (vitamin C) [Vitamin C] 500 mg Tablet 500 mg PO BID ferrous sulfate [iron] 325 mg (65 mg iron) Tablet 325 mg PO DAILY Qty: 90 3RF venlafaxine 150 mg capsule,extended release 24hr 150 mg PO DAILY mirtazapine 7.5 mg tablet 7.5 mg PO BEDTIME nystatin 100,000 unit/gram powder 1 appl topical BID clotrimazole 1 % cream 1 appl topical DAILY Linzess 290 mcg capsule 290 mcg PO DAILY lactulose 10 gram/15 mL Solution 30 ml PO TID PRN (Reason: Constipation) bisacodyl [Dulcolax (bisacodyl)] 5 mg tablet,delayed release (DR/EC) 15 mg PO BEDTIME PRN (Reason: Constipation) Creon 24,000-76,000 -120,000 unit capsule,delayed release(DR/EC) 1 cap PO BID clonazepam 1 mg tablet 1 mg PO BID PRN (Reason: Anxiety) dulaglutide 0.75 mg/0.5 mL pen injector 0.75 mg subcut QWEEK Rx Instructions: weekly on mondays (DME) lancets 33 gauge misc See Rx Instructions Not Applicable BID Qty: 100 Rx Instructions: As directed (DME) blood sugar diagnostic Strip See Rx Instructions Not Applicable BID Qty: 10 Rx Instructions: As directed metformin 500 mg tablet extended release 24 hr 500 mg PO BID montelukast 10 mg tablet 10 mg PO BEDTIME Certavite-Antioxidant 18-400 mg-mcg tablet 1 tab PO DAILY diclofenac sodium 1 % gel 1 g topical BID PRN (Reason: Pain) gabapentin 600 mg tablet 600 mg PO TID albuterol sulfate [Ventolin HFA] 90 mcg/actuation HFA aerosol inhaler 2 inh inhalation Q4H PRN (Reason: Shortness Of Breath Or Wheezing) rosuvastatin 40 mg tablet 40 mg PO DAILY metoprolol succinate 50 mg tablet extended release 24 hr 50 mg PO DAILY levothyroxine 125 mcg tablet 125 mcg PO DAILY@0600 (DME) CPAP Machine/Device Device See Rx Instructions .Route Rx Instructions: As directed dapagliflozin propanediol [Farxiga] 10 mg tablet 10 mg PO DAILY venlafaxine 75 mg capsule,extended release 24hr 75 mg PO DAILY metoclopramide HCl 10 mg tablet 10 mg PO QID Qty: 120 6RF simethicone [Gas Relief (simethicone)] 180 mg capsule 180 mg PO QID Qty: 120 2RF nitroglycerin 0.3 mg tablet, sublingual 0.3 mg sublingual DIRECTED Rx Instructions: Taken daily with Isosorbide QD. (DME) CPAP Machine/Device Device See Rx Instructions .Route Rx Instructions: As directed Trelegy Ellipta 200-62.5-25 mcg blister with device 1 inh inhalation DAILY 30 Days Qty: 60 12RF topiramate 25 mg tablet 25 mg PO DAILY isosorbide mononitrate 30 mg tablet extended release 24 hr 30 mg PO DAILY imipramine HCl 10 mg tablet 20 mg PO BEDTIME 30 Days Qty: 60 3RF Changed pantoprazole 40 mg tablet,delayed release (DR/EC) 40 mg PO BID@0630,1630 Qty: 180 0RF Discontinued Brilinta 90 mg tablet 90 mg PO BID Discharge Orders: Discharge Order (Routine); Ordered 11/15/24 Ordered By: Neetu Esquivel Diet: Advance to usual diet Activity on Discharge: As tolerated Stand Alone Forms: Patient Portal Discharge page Print Language: Canadian Care Plan Goals: Stop Brilinta (Ticagrelor) Continue Pantoprazole 40 mg twice a day Continue Famotidine 20 mg daily Fiorecit as needed for headache Follow with [facility] as outpatient Health Concerns: Ulcer at surgical anastamosis site Plan of Treatment: Pantoprazole Stop Brilinta Assessment: as above
--- NOTE | 2024-11-15 13:47 | W.MHC.F2F ---
Service Date Service Date: 11/15/24 Encounter Date of encounter: 11/15/24 Reasons for Services Signs and symptoms assessed: physical deconditioning Reason for custodial: medication treatment and teach disease management Reason for physical therapy: home safety and mobility and therapeutic exercises Homebound: Leaving the home is medically contraindicated at this time without the asist of a device and/or another person due th the listed conditions above and below. Reason homebound: unable to drive Certification: Based on the above findings, I certify that this patient is confined to the home and needs intermittent custodial care, physical therapy and/or speech therapy, or continues to need occupational therapy. The patient is under my care, and I have initiated the establishment of the plan of care. The patient will be followed by a physician who will periodically review the plan of care. Time Spent With Patient Time: Total time managing care of this patient today ____ minutes.
== END 2024-11-15 15:35 | disposition home health service (06) | DRG 382 ==
LOC: HO.ED 14:00 → HO.EDOVER 14:23 → HO.S3 16:24
PROVIDERS: Admitting Provider Internal Medicine Gastroenterology; Emergency Provider Emergency Medicine; PCP Internal Medicine; Visit Provider Student in an Organized Health Care Education/Training Program
PROC: 0DJ08ZZ Inspection of Upper Intestinal Tract, Via Natural or Artificial Opening Endoscopic (ICD-10-PCS; CPT 43235; principal; 2024-11-14 12:40)
DX: K28.7 Chronic gastrojejunal ulcer without hemorrhage or perforation (principal); I25.10 Atherosclerotic heart disease of native coronary artery without angina pectoris; Z95.5 Presence of coronary angioplasty implant and graft; K75.81 Nonalcoholic steatohepatitis (NASH); K59.00 Constipation, unspecified; F41.9 Anxiety disorder, unspecified; K21.9 Gastro-esophageal reflux disease without esophagitis; E11.649 Type 2 diabetes mellitus with hypoglycemia without coma; E11.40 Type 2 diabetes mellitus with diabetic neuropathy, unspecified; E03.9 Hypothyroidism, unspecified; Z98.84 Bariatric surgery status; Z79.82 Long term (current) use of aspirin; Z79.51 Long term (current) use of inhaled steroids; Z79.85 Long-term (current) use of injectable non-insulin antidiabetic drugs; Z79.890 Hormone replacement therapy; Z79.899 Other long term (current) drug therapy
CPT/HCPCS: 36415; 71045; 73110; 74177; 74181; 80048; 80053; 80076; 82105; 82248; 82378; 82947; 82977; 83615; 83690; 84484; 85025; 88305; 88313; 88342; 93005; 94640; 99212; 99285; J1308; J1650; J1885; J2003; J2270; J2405; J2470; J2704; J7120; Q9967

== ENCOUNTER → 2024-11-11 10:04 | Outpatient (BNV) | payer OTHER, SELFPAY | PROVIDERS: Admitting Provider Student in an Organized Health Care Education/Training Program; Emergency Provider Emergency Medicine; PCP Internal Medicine; Visit Provider Internal Medicine Cardiovascular Disease | DX: R07.9 Chest pain, unspecified (principal) | CPT/HCPCS: 93010 ==

== ENCOUNTER → 2024-11-11 10:04 | Outpatient (BNV) | payer OTHER, SELFPAY | PROVIDERS: Emergency Provider Emergency Medicine; PCP Internal Medicine; Visit Provider Radiology Diagnostic Radiology | DX: K63.89 Other specified diseases of intestine (principal); K56.41 Fecal impaction; R07.9 Chest pain, unspecified | CPT/HCPCS: 71045; 74177 ==

== ENCOUNTER 2024-11-11 14:06 | Outpatient (BNV) | payer OTHER, SELFPAY | END 2024-11-14 16:08 | PROVIDERS: Admitting Provider Internal Medicine Gastroenterology; Emergency Provider Emergency Medicine; PCP Internal Medicine; Visit Provider Radiology Diagnostic Radiology | DX: K86.2 Cyst of pancreas (principal) | CPT/HCPCS: 74181 ==

== ENCOUNTER → 2024-11-11 14:06 | Outpatient (BNV) | payer OTHER, SELFPAY | PROVIDERS: Admitting Provider Student in an Organized Health Care Education/Training Program; Emergency Provider Emergency Medicine; PCP Internal Medicine; Visit Provider Student in an Organized Health Care Education/Training Program | DX: K83.8 Other specified diseases of biliary tract (principal); K63.9 Disease of intestine, unspecified; R93.89 Abnormal findings on diagnostic imaging of other specified body structures; K28.9 Gastrojejunal ulcer, unspecified as acute or chronic, without hemorrhage or perforation | CPT/HCPCS: 99223; 99232; 99239; G0180 ==

== ENCOUNTER → 2024-11-11 14:06 | Outpatient (BNV) | payer OTHER, SELFPAY | PROVIDERS: Admitting Provider Internal Medicine Gastroenterology; Emergency Provider Emergency Medicine; PCP Internal Medicine; Visit Provider Internal Medicine Gastroenterology | DX: K83.8 Other specified diseases of biliary tract (principal); K63.9 Disease of intestine, unspecified; R11.2 Nausea with vomiting, unspecified; R30.0 Dysuria; R79.89 Other specified abnormal findings of blood chemistry | CPT/HCPCS: 99222 ==

== ENCOUNTER → 2024-11-11 14:06 | Outpatient (BNV) | payer OTHER, SELFPAY | PROVIDERS: Admitting Provider Internal Medicine Gastroenterology; Emergency Provider Emergency Medicine; PCP Internal Medicine; Visit Provider Internal Medicine Gastroenterology | DX: R10.9 Unspecified abdominal pain (principal); K28.7 Chronic gastrojejunal ulcer without hemorrhage or perforation; Z98.84 Bariatric surgery status | CPT/HCPCS: 44361 ==

== ENCOUNTER 2024-11-23 08:05 | Outpatient (REF) | payer OTHER, SELFPAY ==
--- NOTE | ~2024-11-23 | US_ITS ---
EXAMINATION: US ABDOMEN COMPLETE WITH LIVER ELASTOGRAPHY HISTORY: Elevated LFTs TECHNIQUE: Real-time grayscale ultrasound imaging of the abdomen was performed and images were reviewed. COMPARISON: Comparison is made with the prior examinations dated 02/18/2023 and 05/23/2022. FINDINGS: Liver: The right lobe of the liver measures 13.8 cm in size. The left lobe of the liver measures 7.5 cm in size. The liver demonstrates normal homogeneous echotexture. There is a calcification in the right lobe. No focal mass is identified. There is mild prominence of intrahepatic biliary radicles. There is normal hepatopedal flow in the portal vein. Ultrasound elastography of the liver was performed with 10 separate measurements of the liver parenchyma with the patient in the supine position. Measurements were obtained approximately 2 cm below Demetrice's capsule and perpendicular to the capsule. The median shear wave velocity is 1.54 m/s (previously 1.38 m/s). The interquartile range/median (IQR/median) is 0.15. Gallbladder and biliary tree: The gallbladder is surgically absent. The common bile duct is normal in caliber measuring 5 mm. Kidneys: The right kidney measures 10.3 cm in length and demonstrates an extrarenal pelvis. The left kidney measures 9.3 cm in length. The kidneys are unremarkable, without evidence of masses, hydronephrosis, or calculi. Pancreas: The pancreas is obscured by bowel gas. Spleen: The spleen is normal in size and contour, measuring 7.2 cm in length. Abdominal aorta and inferior vena cava: The visualized portions of the abdominal aorta and inferior vena cava are normal in caliber. There is no free fluid in the abdomen. US/US abdomen comp w elastography IMPRESSION: Status post cholecystectomy. Mild intrahepatic biliary ductal dilatation is likely related to prior cholecystectomy. The median shear wave velocity in the liver is 1.54 m/s, corresponding to a median liver stiffness of 7.1 kPa. The IQR/median value is 0.15. This is indicative of a poor quality data set, and the estimated liver stiffness may be unreliable. Findings are indicative of a low elastography value which rules out advanced chronic liver disease in asymptomatic patients. REFERENCE: Society of Radiologists in Ultrasound Liver Stiffness Thresholds (2020): LIVER STIFFNESS THRESHOLDS: *Shear wave velocity less than 1.3 m/s (Liver Stiffness equal or less than 5 kPa): High probability of being normal. *Shear wave velocity less than 1.7 m/s (Liver Stiffness less than 9 kPa): In the absence of other known clinical signs, rules out compensated advanced chronic liver disease. *Shear wave velocity between 1.7-2.1 m/s (Liver Stiffness 9-13 kPa): Suggestive of compensated advanced chronic liver disease but need further test for confirmation. *Shear wave velocity between 2.1-2.4 m/s (Liver Stiffness 13-17 kPa): Rules in compensated advanced chronic liver disease. *Shear wave velocity greater than 2.4 m/s (Liver Stiffness over 17 kPa): Suggestive of clinically significant portal hypertension. QUALITY OF DATA SET: SIGNIFICANT CHANGE FROM PRIOR EXAM: Significant change if liver stiffness measurement is 10% or greater from prior exam. OTHER CONSIDERATIONS: The stage of liver fibrosis may be overestimated in the setting of acute hepatitis, liver inflammation, elevated liver function tests, hepatic vascular congestion, obstructive cholestasis, non-fasting state, and infiltrative diseases such as amyloidosis and lymphoma. In some patients with NAFLD, the liver stiffness thresholds for compensated advanced chronic liver disease may be lower. In causes other than viral hepatitis and NAFLD, liver stiffness thresholds are not well established. Electronically signed by: Frank Andersen MD 11/23/2024 09:39 AM EDT
--- OUTSIDE RECORDS SUMMARY | 2024-11-23 08:09 | XMS_ITS | Data Portability ---
Author Organization [facility], [employer] [facility] Address [address] [place] [address] Care Team Providers Care Wood Shingle Roofer Name Role Phone HIM [facility] OTHER [facility] Referring Provider Assessment Encounter Date Assessment [...] Assessment and Plan as documented by the Personnel Clerk. We discussed the diagnostic uncertainty of home [...] )to call 911- verbalized understanding of instruction [email or web address] Not available 06/06/2024 22:29:59 Plan of Treatment Reminders Order Date Submit Date Provider Last Modified By Organization Details Last Modified Time Details Appointments None recorded. Lab rapid flu (A+B) 2023 024 [email or web address] Main - [facility], [address] [place] [address], [id number] 4 12:27:12 rapid SARS CoV 2 Ag, QL IA, respiratory specimen 2023 024 [email or web address] Main - [facility], [address] [place] [address], [id number] 4 12:27:12 rapid strep group A, throat 2023 024 [email or web address] 0 Main - [facility], [address] [place] [address], [id number] 4 12:27:12 BMP, serum or plasma 2023 024 [email or web address] 0 Main - [facility], [address] [place] [address], [id number] 4 12:27:12 Referral None recorded. Procedures None recorded. Surgeries None recorded. Imaging None recorded. Medication Orders albuterol sulfate 2.5 mg/3 mL (0.083 %) solution for nebulizatio n 2023 [email or web address] 0 Not available 4 12:27:12 azithromyci n 250 mg tablet 2023 [email or web address] 0 Not available 12:27:12 azithromyci n [address] [facility], [address] [place] [address], [id number], 4 10:06:34 potassium chloride ER 20 mEq tablet,exte nded release 2023 [email or web address] 0 Not available 4 12:27:12 prednisone 20 mg tablet 2023 [email or web address] Not available 4 12:27:12 prednisone [address] [facility], [address] [place] [address], [id number], 4 10:06:35 Mucinex DM 30 mg-600 mg tablet,exte nded release [address] [facility], [address] [place] [address], [id number], 5 11:34:59 Patient TargetsNo targets recorded. Patient InstructionsNo instructions recorded. Reason for Referral None Reported. Results Created Date Observation Date Name Description Value Unit Range Abnormal Flag Note LastModifiedBy Organization Detail LastModifiedTime 06/06/20 24 06/06/2024 rapid strep group A, throa t Strep negati ve Not Available Main - [facility] ed [address] [place] [address], [phone] 06/06/2024 11:26:51 06/06/20 24 06/06/2024 rapid SARS CoV 2 Ag, QL IA, respi rator y speci men rapid SARS CoV 2 Ag, QL IA, respiratory specimen negati ve Not Available [facility] - [facility] [address] [place] [address], [id number] 06/06/2024 11:26:50 06/06/20 24 06/06/2024 rapid flu (A+B) Flu negati ve Not Available Main - [facility] ed [address] [place] [address], [id number] 06/06/2024 11:26:49 Result Notes None recorded. Medical [...] Address Organization Details Last Updated DateTime 4 10809.0 4 g 16 /min 98 [degF] 152.4 cm 100 % 100 % 68 /min 100 mm[Hg] 69 mm[Hg] Not Available [employer] - production 4 11:40:00 Date Recorded Body height Provider Name an d Address Organization Details Last Updated DateTime 06/06/2024 152.4 cm Suzy Caldera [address] [place] [address],[address], [place], [address], [place] - [employer] 06/06/2024 12:10:31 Date Recorded Heart rate Oxygen saturation Oxygen saturation in Arterial blood by Pulse oximetry Respiratory rate Body temperature Systolic blood pressure Diastolic blood pressure Provider Name and Address Organization Details Last Updated DateTime 4 78 /min 100 % 100 % 18 /min 98 [degF] 106 mm[Hg] 53 mm[Hg] Not Available [employer] - production 4 11:21:28 Social History None recorded. Functional Status None recorded. Mental Status None recorded. Family History Nothing Reported. Medical History No medical history recorded. Gynecological HistoryNo gynecological history recorded. Obstetrics History GPAL:G 0 P 0 0 0 0 Past Encounters Encounter ID Performer Location Encounter Start Date Encounter Closed Date Diagnosis/Indication Diagnosis SNOMED-CT Code Diagnosis ICD10 Code Diagnosis Note [id number] Katelyn Rodriguez MD Main [employer] [address] [place] [phone] 12/14/2023 11:35:06 12/14/2023 18:48:14 Headache 53535105 R51.9 [id number] Leilani Pendleton MD [facility] [address] [place] [phone] 06/06/2024 11:21:26 06/06/2024 23:50:20 Upper respiratory infection 87313146 J06.9 w/ exacerbati on of asthma- improved after neb lungs cta but increased cough Will cover with azithromyc in and steroids/v ia Malay language line interprete r made patient aware [...] Recorded Advance Directives Directive None Recorded Payers Insurance Date Sequence Insurance Name Policy Number Policy Vivar Covered Member ID Vivar Member ID Guarantor Name 06/06/2024 1 [facility] - DOS ON OR AFTER 2022 - DUAL ELIGIBLE - FDC OPTIONS AND ONE CARE (MEDICARE REPLACEMENT/ADV ANTAGE - HMO) Hayley Shannon [id number] Hayleyanthony Beltrana Notes Date Note Type Note Provider Name [...] injury. Pt [facility] of [facility]. [facility]. Confirmed allergies and that no pets in home. Reviewed home care advise, ER precautions and reasons to call back. ................... ................... ................... ................... ................... ................... ................... ........ CRC Nurse Triage Notes (Rachael Lo): Comments: HPI reviewed. No further information needed to process visit. Personnel Clerk POC Test Results from Gerardo Lazar - ALS iSTAT Chem8+ (13:24:48) Na: 142 mEq/L K: 5.0 mEq/L Cl: 110 mEq/L iCa: 1.21 mmol/L TCO2: 22 mmol/L Glu: 86 mg/dL BUN: 11 mg/dL Crea: 0.9 mg/dL Hct: 39 % Hb: 13.3 g/dL A ................... ................... ................... ................... ................... ................... ................... ........ Personnel Clerk Note From Gerardo Lazar: [employer] visit for female patient. Pt presents conscious and alert. Pt Malay speaking only so parks recreation coordinator services were used. Pt reports 4 days [...] little bit low. Pt afebrile. Consulted with [facility] [place]. Rodriguez who advised blood drawn BMP and IV fluids. IV placed and BMP drawn and uploaded to [facility] jen. Dr. Rodriguez ordered 500 cc of normal saline in addition to 1 gram of IV magnesium, both given on scene. Reviewed red flags for ED and PT education provided. ................... ................... ................... ................... ................... ................... ................... ........ Disposition: Leann Rodriguez MD [address] [facility],[address], [place], [phone], [facility] - [employer] [facility] 12/14/2023 15:10:31 06/06/2024 text/html HPI: Call returned to Hayley Wang to triage below. Reports having asthma sx x 4 days. Pt having cough, fever and wheezing. Pt having to use inhaler Q4H. Pt also endorses ST. Pt had negative home kit for COVID-19 yesterday. Pt having chest tightness with cough. Pt advised of disposition, agrees to [facility] for eval as unable to come into walk in center. Confirmed demographics and allergies. ................... ................... ................... ................... ................... ................... ................... ........ [facility] Nurse Triage Notes (Nayely Arango - RN): Chief Complaints: Asthma, Cough PMH: COPD/Asthma, Hypertension, Hypothyroidism, Asthma, Diabetes Mellitus Type 2, Coronary Artery Disease Comments: HPI reviewed Personnel Clerk Organization Information for [employer] Legal Name: [employer] Address: [address] [place] [id number], Director Of Customer Service: Mj Krause MD CLIA No.: [id number] Personnel Clerk POC Test Results from [employer] Rapid [...] ................... ................... ................... ................... ................... ................... ........ Personnel Clerk Note From [employer]: [facility] makes pt contact a 73 yo FF CC of cough/cold like [facility] obtains vital signs, [facility] uses parks recreation coordinator services due to language barrier. PT explains she has been sick for 9 days including a fever, cough, congestion, productive phlegm consisting of dark green, pt has a hx of asthma, pt has a metal plate in chest from a resuscitation 4 months ago. PT is complaining of chest pain from the cough and not being able to sleep. [facility] tests for flu and covid, negative, tests for strep negative. PT has no allergies, a medication list is provided to [facility] contacts [facility], [facility] requests an istat which is obtained via butterfly in the left AC and bandaged appropriately, and uploaded. [facility] advises pt has bronchitis. [facility] orders 500mg of azithromycin, 40mg of prednisone, 40meq of potassium which is given po. [facility] also orders a nebulized albuterol treatment, PT reports minor relief from albuterol although pts lungs on reassessment are free of any wheezes. PT is also prescribed antibiotics which she is instructed to began taking tomorrow. [facility] explains red flags such as severe chest pain, severe sob, uncontrolled fever she should call us back or go to the hospital. [facility] also explains pt should stay hydrated and use the prescribed cough syrup to try and loosen up the pehlgm and also reduce her coughing. PT understands. [facility] clears ................... ................... ................... ................... ................... ................... ................... ........ [facility] Consulted: Leilani Pendleton ................... ................... ................... ................... ................... ................... ................... ........ Disposition: Fulfilled Leilani Pendleton MD [address] [facility],[address], [place], [address], [employer] [facility] [employer] 06/06/2024 22:30:16 OBGyn Episode No OBEpisode recorded.
== END 2024-11-23 08:06 | disposition home or self-care (01) ==
LOC: HO.US 08:05
PROVIDERS: PCP Internal Medicine; Referring Provider Nurse Practitioner; Visit Provider Internal Medicine Medical Oncology
DX: R79.89 Other specified abnormal findings of blood chemistry (principal)
CPT/HCPCS: 76700; 76981

== ENCOUNTER → 2024-11-23 08:07 | Outpatient (BNV) | payer OTHER, SELFPAY | PROVIDERS: PCP Internal Medicine; Referring Provider Nurse Practitioner; Visit Provider Radiology Diagnostic Radiology | DX: R74.01 Elevation of levels of liver transaminase levels (principal) | CPT/HCPCS: 76700; 76981 ==

== ENCOUNTER 2024-12-02 11:30 | Emergency (ER) | payer OTHER, SELFPAY ==
--- NOTE | ~2024-12-02 | CT_ITS ---
EXAMINATION: CT HEAD WITHOUT CONTRAST CLINICAL INFORMATION: Headache COMPARISON: 03/31/2024. TECHNIQUE: Contiguous axial imaging was performed from the skull base to vertex without intravenous administration of contrast. This CT examination was performed using dose optimization techniques as appropriate, variously including the following: *Automated exposure control *Adjustment of mA and/or kV according to patient size (this includes techniques or standardized protocols for targeted exams where dose is matched to indication/reason for exam; i.e. extremities or head) *Use of iterative reconstruction technique FINDINGS: There is no evidence of intracranial hemorrhage or extra-axial fluid collection. There is no mass effect, or edema. No CT evidence of acute territorial infarct. Ventricles, sulci, and cisterns are normal in size and configuration for patient age. No hydrocephalus. No midline shift. Negative hyperdense MCA sign. Negative insular ribbon sign. Patchy periventricular and deep white matter hypoattenuation is consistent with mild to moderate small vessel ischemic changes. Old lacunar type infarct right caudate head. Partial empty sella. Mild atheromatous calcification of the bilateral carotid siphons. Globes and orbital contents image normally. There are bilateral lens replacements. No extracranial soft tissue abnormalities. There is a right mastoid tip effusion. Small fluid level right sphenoid sinus. The paranasal sinuses, mastoid air cells, and tympanic cavities are otherwise normally aerated. No suspicious bony abnormalities. There are no acute fractures evident. CT/CT head/brain wo IV con IMPRESSION: 1. No acute intracranial abnormality. 2. Small air-fluid level right sphenoid sinus. 3. Right mastoid tip effusion. Electronically signed by: Chris Adames MD 12/02/2024 04:11 PM EDT
--- NOTE | 2024-12-02 11:33 | ECG_ITS ---
Test Reason : chest pain Blood Pressure : */* mmHG Vent. Rate : 68 BPM Atrial Rate : 68 BPM P-R Int : 146 ms QRS Dur : 74 ms QT Int : 392 ms P-R-T Axes : 34 3 32 degrees QTcB Int : 416 ms Normal sinus rhythm Normal ECG When compared with ECG of 11-Nov-2024 10:07, QT has shortened Referred By: Generic ED Physician Electronically Signed By: Elver Ashton
[2024-12-02 11:34] VITALS: BP 138/78; PULSE 69; O2SAT 97
[2024-12-02 11:36] VITALS: BP 96/70; PULSE 67; RESP 12; TEMP 37.1; O2SAT 97; BMI 27.6
--- NOTE | 2024-12-02 11:43 | ED.CHESTPAIN ---
HPI - Chest Pain General Chief Complaint: Chest Pain Stated Complaint: Epigastric pain/N/V/CP Time Seen by Provider: 12/02/24 11:43 History of Present Illness ED Provider: Jackson HADLEY narrative: The patient is a 74-year-old woman with a history of coronary disease status post PCI in 2003. She also has a history of type 2 diabetes, nonalcoholic steatohepatitis, asthma, gastric bypass surgery, cholecystectomy, and hypothyroidism among other issues. She says she has not been feeling well for about 4 days. She has had a headache and she has also had epigastric pain and also chest pain. No fevers. She has had nausea and occasional vomiting when she eats. No diarrhea. she called an ambulance and was brought to the hospital. She says that her abdominal symptoms in her nausea and vomiting and her headache are all similar to symptoms that she experienced when she was hospitalized here a few weeks ago. 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 she was taken off Brilinta. She had her pantoprazole dosage increased. She will be given a prescription for butalbital for headaches. Addendum: The patient did not initially tell me this but later she told me that the direct reason that she was at the hospital was that a home physical therapist had come to her home to do home physical therapy and the patient's blood pressures were somewhat low. Apparently a different physical therapist had been at the home the day before and had also found the blood pressures to be somewhat low. Apparently the physical therapist today felt that given 2 days of relatively low blood pressures that the patient should come to the hospital for evaluation. Related Data Home Medications ?Medication ?Instructions ?Recorded ?Confirmed ascorbic acid (vitamin C) 500 mg 500 mg PO BID 07/17/20 11/11/24 tablet (Vitamin C) aspirin 81 mg tablet,delayed 81 mg PO DAILY 07/17/20 11/11/24 release montelukast 10 mg tablet 10 mg PO BEDTIME 08/10/20 11/11/24 blood sugar diagnostic #10 ea 09/12/20 05/16/24 clonazepam 1 mg tablet 1 mg PO BID PRN Anxiety 09/12/20 11/11/24 dulaglutide 0.75 mg/0.5 mL 0.75 mg subcut QWEEK 09/12/20 11/14/24 subcutaneous pen injector lancets 33 gauge #100 ea 09/12/20 05/16/24 metformin 500 mg tablet,extended 500 mg PO BID 09/12/20 11/11/24 release 24 hr albuterol sulfate 90 mcg/actuation 2 inh inhalation Q4H PRN Shortness 12/02/21 11/11/24 aerosol inhaler (Ventolin HFA) Of Breath Or Wheezing rosuvastatin 40 mg tablet 40 mg PO DAILY 12/02/21 11/11/24 multivitamin-ferrous 1 tab PO DAILY 12/17/21 11/11/24 fumarate-folic acid 18 mg-400 mcg tablet (Certavite-Antioxidant) diclofenac sodium 1 % topical gel 1 g topical BID PRN Pain 02/11/22 11/11/24 metoprolol succinate 50 mg 50 mg PO DAILY 10/09/22 11/11/24 tablet,extended release 24 hr gabapentin 600 mg tablet 600 mg PO TID 11/04/22 11/11/24 CPAP (CPAP Machine/Device) 03/24/23 05/16/24 CPAP (CPAP Machine/Device) 07/31/23 05/16/24 levothyroxine 125 mcg tablet 125 mcg PO DAILY@0600 07/31/23 11/11/24 dapagliflozin propanediol 10 mg 10 mg PO DAILY 09/30/23 11/11/24 tablet (Farxiga) isosorbide mononitrate 30 mg 30 mg PO DAILY 03/24/24 11/11/24 tablet,extended release 24 hr topiramate 25 mg tablet 25 mg PO DAILY 03/24/24 11/11/24 venlafaxine 75 mg capsule,extended 75 mg PO DAILY 09/29/24 11/11/24 release 24 hr bisacodyl 5 mg tablet,delayed 15 mg PO BEDTIME PRN Constipation 11/11/24 11/11/24 release (Dulcolax (bisacodyl)) clotrimazole 1 % topical cream 1 appl topical DAILY 11/11/24 11/11/24 lactulose 10 gram/15 mL oral 30 ml PO TID PRN Constipation 11/11/24 11/11/24 solution linaclotide 290 mcg capsule 290 mcg PO DAILY 11/11/24 11/11/24 (Linzess) mirtazapine 7.5 mg tablet 7.5 mg PO BEDTIME 11/11/24 11/11/24 nitroglycerin 0.3 mg sublingual 0.3 mg sublingual DIRECTED 11/11/24 11/11/24 tablet nystatin 100,000 unit/gram topical 1 appl topical BID 11/11/24 11/11/24 powder venlafaxine 150 mg 150 mg PO DAILY 11/11/24 11/11/24 capsule,extended release 24 hr cbdnqu-uijtirlg-fuubuca 1 cap PO BID 11/12/24 11/12/24 24,000-76,000-120,000 unit capsule,delayed rel (Creon) Previous Rx's ?Medication ?Instructions ?Recorded cholecalciferol (vitamin D3) 50 50 mcg PO DAILY 30 days #30 caps 07/23/20 mcg (2,000 unit) capsule ferrous sulfate 325 mg (65 mg 325 mg PO DAILY #90 tabs 04/01/22 iron) tablet (iron) fluticasone fur. 200 mcg-umeclid 1 inh inhalation DAILY 30 days #60 03/29/24 62.5 mcg-vilant 25 mcg ea inhalat.powder (Trelegy Ellipta) acetaminophen 325 mg tablet 650 mg (2 x 325 mg) PO Q6H PRN 04/21/24 fever or pain 14 days #120 tabs tramadol 50 mg tablet 50 mg PO QID #120 tabs 08/15/24 folic acid 1 mg tablet 1 mg PO DAILY #90 tabs 09/13/24 metoclopramide HCl 10 mg tablet 10 mg PO QID #120 tabs 09/29/24 simethicone 180 mg capsule (Gas 180 mg PO QID #120 ea 09/29/24 Relief (simethicone)) famotidine 20 mg tablet 20 mg PO DAILY #30 tabs 10/13/24 imipramine HCl 10 mg tablet 20 mg (2 x 10 mg) PO BEDTIME 30 10/14/24 days #60 tabs zakorijpcp-wwsgxxxjjwuwd-pqrnyjet 1 tab PO Q4H PRN headache #20 tabs 11/15/24 50 mg-325 mg-40 mg tablet pantoprazole 40 mg tablet,delayed 40 mg PO BID@0630,1630 #180 tabs 11/15/24 release hczhiscrsb-ruyumccfcvlwk-jpmeamvk 1 cap PO Q6H PRN headache #14 caps 12/02/24 50 mg-300 mg-40 mg capsule (Fioricet) ondansetron 4 mg disintegrating 4 mg PO Q6H PRN nausea and 12/02/24 tablet vomiting #10 tabs Allergies Allergy/AdvReac Type Severity Reaction Status Date / Time No Known Allergies (No Known Allergy Verified 12/02/24 11:37 Allergies*) Review of Systems Review of Systems: Yes all other systems are reviewed and are negative [facility] Past Medical History Medical History Abdominal pain Dysuria Myocardial infarction Left hip pain Sacroiliac joint pain Elevated liver enzymes Right knee pain Left lumbar radiculitis Lumbago with sciatica Sepsis Right anterior knee pain Nausea and vomiting Candidiasis of mouth and esophagus Medication monitoring encounter Abnormal findings on diagnostic imaging of musculoskeletal system Asthma ANGIE (obstructive sleep apnea) Diabetes Esophageal dysmotilities Esophageal candidiasis Pneumonia Cystitis Recurrent UTI (urinary tract infection) Vitamin D deficiency Hypothyroidism Osteoporosis B12 deficiency Iron deficiency anemia IBS (irritable bowel syndrome) Surgical History H/O hand surgery H/O heart surgery Hx of gastric bypass History of esophagogastroduodenoscopy (EGD) Hx of colonoscopy History of arthroscopy of left shoulder Family History Family History Father No problems noted. 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 She does not appear obviously acutely ill. She was cheerful and pleasant. Orientation/consciousness: patient oriented x3 HEENT: Other: Face is symmetrical, mucous membranes moist Mouth: Normal oral and palatal mucosa present and moist mucous membranes Eyes: General: appearance normal, both eyes and all related structures Neck: Neck: Yes normal visual inspection, Yes full ROM, Yes no meningeal signs and Yes no JVD Resp: Effort & Inspection: normal respiratory effort Auscultation: clear to auscultation bilaterally Cardio: Rate: regular rate Rhythm: regular rhythm Heart sounds: S1 normal heart sound present and S2 normal heart sound present GI: Other: the patient reports generalized abdominal tenderness with palpation throughout the abdomen. Her abdomen seems soft. Skin: Other: Skin is dry and unremarkable Neuro: General: patient oriented x3, tone normal, moves all extremities, no meningeal signs, no focal motor deficits and CN's II-XI intact bilaterally Extrem: Other: the legs does not appear swollen. She reports bilateral tenderness with palpation of both legs. No asymmetry. No edema. Medications Administered Discontinued Medications Generic Name Dose Route Start Last Admin Trade Name Freq PRN Reason Stop Dose Admin Diphenhydramine HCl 12.5 mg 12/02/24 12:27 12/02/24 13:14 Diphenhydramine Hcl 50 Mg/Ml Vial IVPUSH 12/02/24 12:28 12.5 mg ONCE ONE Administration Famotidine 20 mg 12/02/24 12:27 12/02/24 13:14 Famotidine/Pf 20 Mg/2 Ml Vial IVPUSH 12/02/24 12:28 20 mg ONCE ONE Administration Lactated Ringer's 1,000 mls @ 999 mls/hr 12/02/24 12:45 12/02/24 15:30 Lr IV 12/02/24 13:45 Infused .Q1H1M AMINA Infusion Lactated Ringer's 1,000 mls @ 999 mls/hr 12/02/24 14:45 12/02/24 15:30 Lr IV 12/02/24 15:45 Infused .Q1H1M AMINA Infusion Ketorolac Tromethamine 7.5 mg 12/02/24 14:32 12/02/24 14:43 Ketorolac Tromethamine 15 Mg/Ml Vial IVPUSH 12/02/24 14:33 7.5 mg ONCE ONE Administration Metoclopramide HCl 10 mg 12/02/24 12:27 12/02/24 13:14 Metoclopramide Hcl 10 Mg/2 Ml Vial IVPUSH 12/02/24 12:28 10 mg ONCE ONE Administration Morphine Sulfate 4 mg 12/02/24 12:27 12/02/24 13:14 Morphine Sulfate 4 Mg/Ml Cartridge IVPUSH 12/02/24 12:28 4 mg ONCE ONE Administration Protocol Sucralfate 1 gm 12/02/24 17:31 12/02/24 17:41 Sucralfate Oral Suspension 1 Gm/10 Ml Oral.Susp PO 12/02/24 17:32 1 gm ONCE ONE Administration Medical Decision Making Medical Decision Making [facility] Narrative: The patient is a 74-year-old woman who was brought to the hospital by ambulance. Initially my understanding has been that it was the patient's idea to come to the emergency room. Later I learned that the ambulance has been called at the recommendation of a visiting physical therapist who was concerned that the patient's blood pressure was somewhat low. The patient had multiple complaints including a headache, abdominal pain, and chest pain. Additionally she complained of pains in her legs. Clinically the patient did not look obviously acutely ill Despite her numerous complaints. These the patient said that the symptoms were fairly similar to symptoms that prompted a hospitalization at this hospital from November 11 through November 15, a proximally 3 weeks ago. At that hospitalization no remarkable findings were made aside from possibly some degree of gastritis. The the patient was initially treated with famotidine, morphine, metoclopramide, and diphenhydramine. My impression was that the headache might be a migraine headache. My further impression was that her abdominal pain was probably gastritis. With regard to her chest pain she had a normal EKG and an undetectable troponin after 4 days of symptoms. My suspicion for an acute coronary syndrome was very low. The patient has AST, ALT, and alk phos were all elevated but they were less elevated than during her most recent hospitalization. The patient reported that after the initial treatment that she still has a headache and so she was given a dose of ketorolac. At that point I ordered a head CT and it was negative. Ultimately the patient seemed to be feeling somewhat better and seemed pleased with the idea of going home. She has been given IV fluids with an increase in her blood pressure as well. My overall impression is that the patient might need a reduction of her cardiac medications. She is on metoprolol and isosorbide mononitrate. Her dosing of these medications may need to be reduced given her heart rate in the 60s and her relatively low blood pressures. She says that she has an appointment with the hamper maker machine next week. She will be discharged with a prescription for Fioricet and ondansetron. She should also follow up with her PCP. She should return if worse. Lab Data 12/02/24 12:09 12/02/24 12:09 Labs: Lab Results 12/02/24 12/02/24 12/02/24 Range/Units 12:09 12:21 13:35 WBC 8.5 (4.8-10.8) X10*3/uL RBC 3.88 L (4.20-5.50) X10*6/uL Hgb 12.1 (12.0-16.0) g/dl Hct 35.8 L (37.0-47.0) % MCV 92.3 (80.0-98.0) fL MCH 31.2 (27.0-33.0) pg MCHC 33.8 (31.0-35.0) g/dl RDW 15.1 (11.0-16.0) % Plt Count 270 (160-400) X10*3/uL MPV 11.1 (9.4-12.3) fL Immature Gran % (Auto) 0.2 (0.0-0.4) % Neut % (Auto) 64.4 (45-73) % Lymph % (Auto) 19.9 L (20-40) % [place] % (Auto) 9.5 (2-11) % Eos % (Auto) 5.3 H (0-4) % Baso % (Auto) 0.7 (0-2) % Lymph # (Auto) 1.7 (1.2-4.9) X10*3/uL [place] # (Auto) 0.8 (0.1-1.2) X10*3/uL Eos # (Auto) 0.5 H (0.0-0.4) X10*3/uL Baso # (Auto) 0.1 (0.0-0.2) X10*3/uL Abs Immat Gran (auto) 0.02 (0.00-0.03) X10*3/uL Absolute Neuts (auto) 5.5 (2.0-8.3) x10*3/uL Absolute Nucleated RBC 0.000 (0.0-0.012) X10*3/uL Nucleated RBC % (auto) 0.0 (0.0-0.2) /100WBC Sodium 140 (135-145) mmol/L Potassium 4.9 (3.3-5.1) mmol/L Chloride 110 H (96-108) mmol/L Carbon Dioxide 25 (22-29) mmol/L Anion Gap 10 L (12-20) BUN 13 (9-16) mg/dL Creatinine 0.94 (0.5-1.4) mg/dL Estim Creat Clear Calc 44.5 Estimated GFR 58 POC Glucose 78 (60-115) mg/dL Random Glucose 96 (60-115) mg/dL Calcium 8.9 (8.4-10.2) mg/dL Magnesium 2.6 (1.6-2.6) mg/dL Total Bilirubin 0.5 (0.0-1.0) mg/dL AST 329 H (5-31) U/L ALT 285 H (0-31) U/L Alkaline Phosphatase 118 H (39-117) U/L Troponin I High Sens < 2.7 (<3.5-17.0) ng/L C-Reactive Protein < 0.10 (< or = 0.50) mg/dL Total Protein 6.5 (6.5-8.0) g/dL Albumin 3.8 (3.5-5.0) g/dL Urine Color Yellow Urine Appearance Clear Urine pH 7.5 (5.0-9.0) Ur Specific [place] 1.010 (1.005-1.025) Urine Protein Negative (Neg-Trace) mg/dL Urine Glucose (UA) >=1000 H (Negative) mg/dL Urine Ketones Negative (Negative) mg/dL Urine Blood Small (1+) H (Negative) Urine Nitrite Negative (Negative) Ur Leukocyte Esterase Negative (Negative) Urine RBC 0-2 (0-2) /HPF Urine WBC 0-5 (0-5) /HPF Ur Squamous Epith Cells 0-2 (0-2) /HPF Urine Bacteria None Seen (None Seen) Hyaline Casts 0-2 (0-2) /LPF Independent Interpretation I performed an independent interpretation of an: EKG Interpretation: EKG at 11:45 shows normal sinus rhythm at 68 beats per minute. No acute ischemic changes. Discharge Plan Discharge Clinical Impression: Headache, Abdominal pain Patient Disposition: Home, Self-Care Additional Instructions: Your testing in the emergency room today seems reassuring. Please plan on following up with your regular doctor. Please also keep your appointment with your hamper maker machine next week. Please tell your hamper maker machine that your blood pressures has been running low. I think that perhaps some of your cardiac medications may need to be reduced in dose. I have sent a prescription for a headache medication, Fioricet, to your pharmacy which you may use as needed for headache. I have also sent a prescription for ondansetron which you may use as needed for nausea. Return to the emergency room if you feel significantly worse. Prescriptions: New pdnuxfpmir-clirfyspuhlgp-tltw [Fioricet] 50-300-40 mg capsule 1 cap PO Q6H PRN (Reason: headache) Qty: 14 0RF ondansetron 4 mg tablet,disintegrating 4 mg PO Q6H PRN (Reason: nausea and vomiting) Qty: 10 0RF No Action cholecalciferol (vitamin D3) 50 mcg (2,000 unit) capsule 50 mcg PO DAILY 30 Days Qty: 30 6RF Rx Instructions: Dose decreased to 2000 international units daily. acetaminophen 325 mg tablet 650 mg PO Q6H PRN (Reason: fever or pain) 14 Days Qty: 120 0RF tramadol 50 mg tablet 50 mg PO QID Qty: 120 4RF folic acid 1 mg Tablet 1 mg PO DAILY Qty: 90 5RF famotidine 20 mg tablet 20 mg PO DAILY Qty: 30 6RF aspirin 81 mg Tablet,Delayed Release (Dr/Ec) 81 mg PO DAILY ascorbic acid (vitamin C) [Vitamin C] 500 mg Tablet 500 mg PO BID ferrous sulfate [iron] 325 mg (65 mg iron) Tablet 325 mg PO DAILY Qty: 90 3RF venlafaxine 150 mg capsule,extended release 24hr 150 mg PO DAILY mirtazapine 7.5 mg tablet 7.5 mg PO BEDTIME nystatin 100,000 unit/gram powder 1 appl topical BID clotrimazole 1 % cream 1 appl topical DAILY Linzess 290 mcg capsule 290 mcg PO DAILY lactulose 10 gram/15 mL Solution 30 ml PO TID PRN (Reason: Constipation) bisacodyl [Dulcolax (bisacodyl)] 5 mg tablet,delayed release (DR/EC) 15 mg PO BEDTIME PRN (Reason: Constipation) Creon 24,000-76,000 -120,000 unit capsule,delayed release(DR/EC) 1 cap PO BID kkasjkztcv-oudjpaotbyqgx-mcwl 50-325-40 mg Tablet 1 tab PO Q4H PRN (Reason: headache) Qty: 20 0RF pantoprazole 40 mg tablet,delayed release (DR/EC) 40 mg PO BID@0630,1630 Qty: 180 0RF clonazepam 1 mg tablet 1 mg PO BID PRN (Reason: Anxiety) dulaglutide 0.75 mg/0.5 mL pen injector 0.75 mg subcut QWEEK Rx Instructions: weekly on mondays (DME) lancets 33 gauge misc See Rx Instructions Not Applicable BID Qty: 100 Rx Instructions: As directed (DME) blood sugar diagnostic Strip See Rx Instructions Not Applicable BID Qty: 10 Rx Instructions: As directed metformin 500 mg tablet extended release 24 hr 500 mg PO BID montelukast 10 mg tablet 10 mg PO BEDTIME Certavite-Antioxidant 18-400 mg-mcg tablet 1 tab PO DAILY diclofenac sodium 1 % gel 1 g topical BID PRN (Reason: Pain) gabapentin 600 mg tablet 600 mg PO TID albuterol sulfate [Ventolin HFA] 90 mcg/actuation HFA aerosol inhaler 2 inh inhalation Q4H PRN (Reason: Shortness Of Breath Or Wheezing) rosuvastatin 40 mg tablet 40 mg PO DAILY metoprolol succinate 50 mg tablet extended release 24 hr 50 mg PO DAILY levothyroxine 125 mcg tablet 125 mcg PO DAILY@0600 (DME) CPAP Machine/Device Device See Rx Instructions .Route Rx Instructions: As directed dapagliflozin propanediol [Farxiga] 10 mg tablet 10 mg PO DAILY venlafaxine 75 mg capsule,extended release 24hr 75 mg PO DAILY metoclopramide HCl 10 mg tablet 10 mg PO QID Qty: 120 6RF simethicone [Gas Relief (simethicone)] 180 mg capsule 180 mg PO QID Qty: 120 2RF nitroglycerin 0.3 mg tablet, sublingual 0.3 mg sublingual DIRECTED Rx Instructions: Taken daily with Isosorbide QD. (DME) CPAP Machine/Device Device See Rx Instructions .Route Rx Instructions: As directed Trelegy Ellipta 200-62.5-25 mcg blister with device 1 inh inhalation DAILY 30 Days Qty: 60 12RF topiramate 25 mg tablet 25 mg PO DAILY isosorbide mononitrate 30 mg tablet extended release 24 hr 30 mg PO DAILY imipramine HCl 10 mg tablet 20 mg PO BEDTIME 30 Days Qty: 60 3RF Referrals: Mary Rod MD [Primary Care Provider, Internal Medicine] Interventions: ED Discharge Assessment Last Done: 12/02/24 18:15 Discharge Date/Time: 12/02/24 18:53 Print Language: Hungarian
[2024-12-02 12:12] LABS: MANUAL DIFF FLAG NO
--- OUTSIDE RECORDS SUMMARY | 2024-12-02 12:13 | XMS_ITS | Encounter Summary ---
Author Organization [employer] Address [address] [place] [address] Care Team Providers Care Sports Medicine Coordinator Name Role Phone Mary Rod MD Primary Care Provide r Encounter Details Date Type Department Care Team (Late st Contact Info) Description 03/24/2023 Abstract [facility] [address] [place], [place] [id number] Tonia Cardoza Social History Tobacco Use Types [...] Description 12/08/2024 1:45 PM EDT Office Visit [facility] [address] [place] [address] Mary Rod MD [address] [place] [address] 05/15/2025 9:45 AM EST Office Visit [facility] [address] [place] [address] TarkaTonya, OD [address] [place] [address] documented as of this encounter Goals Goal [...] documented as of this encounter Care Teams Sports Medicine Coordinator Relationship Specialty Start Date End Date Mary Rod MD [address] [place] [address] [facility] - [facility] documented as of this encounter
[2024-12-02 12:14] LABS: Basophils Absolute Auto 0.1 X10*3/uL (0.0-0.2); Basophils Percent Auto 0.7 % (0-2); Eosinophils Absolute Auto 0.5 X10*3/uL (0.0-0.4); Eosinophils Percent Auto 5.3 % (0-4); Hematocrit 35.8 % (37.0-47.0); Hemoglobin 12.1 g/dl (12.0-16.0); Imm Gran Abs Auto 0.02 X10*3/uL (0.00-0.03); Imm Gran Pct Auto 0.2 % (0.0-0.4); Lymphocytes Absolute Auto 1.7 X10*3/uL (1.2-4.9); Lymphocytes Percent Auto 19.9 % (20-40); Mean Corpuscular HGB Conc 33.8 g/dl (31.0-35.0); Mean Corpuscular Hemoglobin 31.2 pg (27.0-33.0); Mean Corpuscular Volume 92.3 fL (80.0-98.0); Mean Platelet Volume 11.1 fL (9.4-12.3); Monocytes Absolute Auto 0.8 X10*3/uL (0.1-1.2); Monocytes Percent Auto 9.5 % (2-11); Neutrophils Absolute Auto 5.5 x10*3/uL (2.0-8.3); Neutrophils Percent Auto 64.4 % (45-73); Platelet Count 270 X10*3/uL (160-400); Red Blood Count 3.88 X10*6/uL (4.20-5.50); Red Cell Distribution Width 15.1 % (11.0-16.0); White Blood Count 8.5 X10*3/uL (4.8-10.8)
[2024-12-02 12:19] VITALS: PULSE 73
[2024-12-02 12:25] LABS: Glucose, Whole Blood 78 mg/dL (60-115)
[2024-12-02 12:34] LABS: Alanine Aminotransferase 285 U/L (0-31); Albumin Level 3.8 g/dL (3.5-5.0); Alkaline Phosphatase 118 U/L (39-117); Anion Gap 10 (12-20); Aspartate Amino Transferase 329 U/L (5-31); Bilirubin Total 0.5 mg/dL (0.0-1.0); Blood Urea Nitrogen 13 mg/dL (9-16); Calcium 8.9 mg/dL (8.4-10.2); Carbon Dioxide 25 mmol/L (22-29); Chloride 110 mmol/L (96-108); Creatinine Clr Calc Pharmacy 44.5; Estimated Glomerular Filt Rate 58; Glucose Random 96 mg/dL (60-115); Magnesium 2.6 mg/dL (1.6-2.6); Potassium 4.9 mmol/L (3.3-5.1); Sodium 140 mmol/L (135-145); Total Protein 6.5 g/dL (6.5-8.0)
[2024-12-02 12:45] LABS: Troponin-I High Sensitivity < 2.7 ng/L (<3.5-17.0)
[2024-12-02] MEDS: Famotidine/PF 20 MG/2 ML VIAL IVPUSH (13:14)
[2024-12-02] MEDS: Morphine Sulfate 4 MG/ML CARTRIDGE IVPUSH (13:14)
[2024-12-02] MEDS: Metoclopramide HCl 10 MG/2 ML VIAL IVPUSH (13:14)
[2024-12-02] MEDS: diphenhydrAMINE HCL 50 MG/ML VIAL 12.5 MG IVPUSH (13:14)
[2024-12-02] MEDS: Lactated Ringers 1,000 ML 999 ML IV ×2 (13:15→14:44)
[2024-12-02 13:41] LABS: Appearance Urine Clear; Color Urine Yellow; Glucose Urine UA >=1000 mg/dL (Negative); Leukocyte Esterase Urine Negative (Negative); Nitrite Urine Negative (Negative); PH 7.5 (5.0-9.0); UMIC TRIGGER UACC YES; Urine Blood Small (1+) (Negative); Urine Ketones Negative (Negative); Urine Protein Negative (Neg-Trace)
[2024-12-02 13:49] LABS: Bacteria Urine None Seen (None Seen); Hyaline Casts Urine 0-2 /LPF (0-2); Squamous Epithelial Cell Urine 0-2 /HPF (0-2); WBC Urine 0-5 /HPF (0-5)
[2024-12-02 13:50] LABS: RBC Urine 0-2 /HPF (0-2)
[2024-12-02 13:56] LABS: C Reactive Protein < 0.10 mg/dL (< or = 0.50)
[2024-12-02] MEDS: Ketorolac Tromethamine 15 MG/ML VIAL 7.5 MG IVPUSH (14:43)
[2024-12-02] MEDS: Sucralfate Oral Suspension 1 GM/10 ML ORAL.SUSP PO (17:41)
[2024-12-02 17:53] VITALS: BP 138/66; PULSE 60; RESP 14; TEMP 36.6; O2SAT 98
[2024-12-02 18:15] VITALS: BP 138/66; PULSE 60; RESP 14; TEMP 36.6; O2SAT 98
== END 2024-12-02 18:53 | disposition home or self-care (01) ==
PROVIDERS: Emergency Provider Emergency Medicine; PCP Internal Medicine
DX: R07.89 Other chest pain (principal); R10.13 Epigastric pain; R11.2 Nausea with vomiting, unspecified; I25.10 Atherosclerotic heart disease of native coronary artery without angina pectoris; R51.9 Headache, unspecified; Z79.899 Other long term (current) drug therapy
CPT/HCPCS: 36415; 70450; 80053; 81001; 82947; 83735; 84484; 85025; 86140; 93005; 96361; 96374; 96375; 99284; 99285; J1200; J1308; J1885; J2270; J2765; J7120

== ENCOUNTER → 2024-12-02 11:33 | Outpatient (BNV) | payer OTHER, SELFPAY | PROVIDERS: Emergency Provider Emergency Medicine; PCP Internal Medicine; Visit Provider Internal Medicine Cardiovascular Disease | DX: R07.9 Chest pain, unspecified (principal) | CPT/HCPCS: 93010 ==

== ENCOUNTER → 2024-12-02 14:31 | Outpatient (BNV) | payer OTHER, SELFPAY | PROVIDERS: Emergency Provider Emergency Medicine; PCP Internal Medicine; Visit Provider Radiology Diagnostic Radiology | DX: J34.89 Other specified disorders of nose and nasal sinuses (principal); H74.8X1 Other specified disorders of right middle ear and mastoid | CPT/HCPCS: 70450 ==

== ENCOUNTER 2024-12-07 14:55 | Outpatient (AMB) | payer OTHER, SELFPAY ==
--- NOTE | 2024-12-07 14:58 | MHC.OFFVIS ---
Vital Signs 12/07/24 15:05 Height 5 ft Weight 142 lb 13.753 oz BMI 27.9 BP 96/59 L Blood Pressure Location Lt brachial Position Sitting Pulse 73 Oxygen Delivery Method Room Air Intake Visit Reasons: Vomiting, gastric pain , f/u from ED Intake Note: Patient follow up for Vomiting, gastric pain , f/u from ED Patient cc: Nauseas, abdominal pain with bloating, chronic heartburn with burning sensation, poor appetite, constipation and swallowing difficulty with choking episode. Food And Bever[employer] Outlets Manager Required: Yes Food And Beverage Outlets Manager Name: C Interpeter Accompanied by: Self / Same As Patient Allergies No Known Allergies (No Known Allergies*) Allergy (Verified 12/07/24 14:58) HPI HPI Vomiting, gastric pain , f/u from ED: Details: Assessment & Plan (1) GERD (gastroesophageal reflux disease): Code(s): K21.9 - Gastro-esophageal reflux disease without esophagitis Category: Medical (2) Chronic idiopathic constipation: Code(s): K59.04 - Chronic idiopathic constipation Category: Medical (3) VAZQUEZ (nonalcoholic steatohepatitis): Comment: HER liver enzymes are not terribly deranged this can be monitored by her primary care provider at 6 month intervals and she can be return to our service for surveillance if the transaminases become greater than twice the upper limit of normal BASELINE LABS 03/13/22 Plt Count 258 Estimated GFR > 60 Ferritin 43 Total Bilirubin 0.8 AST 179 H ALT 108 H Alkaline Phosphatase 106 D 04/16/22 Plt Count 267 Hemoglobin A1c % 6.2 Ferritin 21 Total Bilirubin 0.5 GGT 149 H AST 71 H ALT 58 H Anti-Mitochondrial Ab NEGATIVE Anti-Smooth Muscle Ab <20 Hepatitis A IgM Ab Nonreactive Hep Bs Antigen Negative Hep Bs Antibody NONREACTIVE Hep B Core Total Ab Nonreactive Hepatitis C Ab (EIA) Nonreactive HIV 1&2 Ab/P24 Ag 4thGn Nonreactive She does not drink ETOH ULTRASOUND THE ABDOMEN WITH ELASTOGRAPHY (F0-F1) Laboratory Tests 09/30/2503/18/25 10:5908:24 Estimated GFR > 60 Ferritin 304 H Total Bilirubin 0.5 Direct Bilirubin 0.2 AST 403 H ALT 368 H Alkaline Phosphatase 104 Lactate Dehydrogenase 527 H Amylase 61 Lipase 18 ZEINAB Screen POSITIVE A Hepatitis A IgM Ab Nonreactive Hep Bs Antigen Negative Hep Bs Antibody NONREACTIVE Hep B Core Total Ab Nonreactive Hepatitis C Ab (EIA) Nonreactive Monoscreen Negative HIV 1&2 Ab/P24 Ag 4thGn Nonreactive ULTRASOUND OF THE ABDOMEN 02/19/23 IMPRESSION: 1. There is generalized increase in hepatic echotexture, consistent with fatty infiltration or hepatocellular disease. Please correlate clinically. No focal hepatic mass or intrahepatic biliary dilatation is seen. 2. The gallbladder is surgically absent. 3. Technically limited ultrasound examination of the pancreas and abdominal great vessels. Code(s): K75.81 - Nonalcoholic steatohepatitis (VAZQUEZ) Category: Medical (4) Intractable nausea and vomiting: Code(s): R11.2 - Nausea with vomiting, unspecified Category: Medical (5) Abdominal pain: Code(s): R10.9 - Unspecified abdominal pain Category: Medical Qualifiers: Abdominal location: right lower quadrant Qualified Code(s): R10.31 - Right lower quadrant pain Plan KOSOVAN #Natalee Live (HOLD: monteleukast, rosuvastatin, entresto, metoprolol, reglan, metformin, losaartan, as a consideration for something that could be affecting her liver enzymes? ?) She says she was seen in the ER but what she actually means is that she was seen at the [facility] walk in clinic. She says they only focused on her hand and did nothing else. Get, the metoclopramide at maximum dose of 10 mg is not helping her. SHe is slumped over in a chair and is dry heaving today. She has been vomiting for 4-5 days. This was of sudden onset. She is also very dizzy and weak. She says she has been able to take her metoclopramide but not many of her other medications. She seems to be acutely ill, so I have my staff take her down to the ER for acute work up and treatment. Of concern in the long run is she is has triple digit and apparently rising transaminases, and actually her alk-phos has bumped 40 points. Yet, her pancreatic enzymes seem to be normal. At the time I noticed the initial BUN by did a hepatitis AB and C panel that was negative, she has a positive ZEINAB but it is a low 1-80 titer and is more common for connective tissue disorder then autoimmune liver disease. Also in the past her AMA and SMA antibodies were normal. It is possible may need to consider liver biopsy. She is on multiple meds that could be driving this including her statin, her Farxiga and her Trulicity. At 1st I think we need to see what the ER comes up with. We call her for a follow-up depending on the outcome of her emergency presentation. TODAYS VISIT KOSOVAN #Charlee Parish Her GI regimen now consists of pantoprazole 40 mg twice a day, metoclopramide 10 mg 4 times a day, Creon 2 caps twice a day, lactulose as needed for constipation, bisacodyl 3 tabs as needed for constipation, Linzess 290 micro g, simethicone 4 times a day as needed for bloating. 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 I would also like to stop her vitamin C adn iron as these can also cause gastric ulcers. She is only taking the pantopraozle qd and I want to be sure she takes it bid. They also added both lactulose along with her Linzess and bisacodyl and she continues on these. She says that she is feeling generally better although she still has some abdominal pain bloating and heartburn. The persistent heartburn is a good reason why we need to get twice a day PPI on board. She says she is slowly and cautiously advancing her diet and doing okay with that. She is moving her bowels daily and she really likes the bisacodyl as she feels this is extremely effective along with the other medications. Hopefully she will continue to improve. I want to cautiously schedule her out for an 8 week follow-up. [facility] Medical History Abdominal pain Dysuria Myocardial infarction Left hip pain Sacroiliac joint pain Elevated liver enzymes Right knee pain Left lumbar radiculitis Lumbago with sciatica Sepsis Right anterior knee pain Nausea and vomiting Candidiasis of mouth and esophagus Medication monitoring encounter Abnormal findings on diagnostic imaging of musculoskeletal system Asthma ANGIE (obstructive sleep apnea) Diabetes Esophageal dysmotilities Esophageal candidiasis Pneumonia Cystitis Recurrent UTI (urinary tract infection) Vitamin D deficiency Hypothyroidism Osteoporosis B12 deficiency Iron deficiency anemia IBS (irritable bowel syndrome) Surgical History H/O hand surgery H/O heart surgery Hx of gastric bypass History of esophagogastroduodenoscopy (EGD) Hx of colonoscopy History of arthroscopy of left shoulder Family History Father No problems noted. 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 Patient Tobacco Use Status: Never used Tobacco Advance Directives Date on File: 11/12/24 service: No Current occupational status: disabled Review of Systems Const Denies fatigue, Denies fever(s), Denies night sweats, Denies poor appetite and Denies weight loss ENT Reports Normal hearing present, Denies dental pain, Denies dysphagia, Denies hearing loss, Denies mouth pain, Denies odynophagia, Denies throat swelling, Denies tongue swelling and Reports other (Dentition adequate) Card Reports no additional complaints Resp Reports no additional complaints GI Details: Denies abdominal pain, Denies melena, Reports bloating, Denies hematochezia, Reports constipation, Reports GI cramping, Denies dysphagia, Denies excessive flatus, Denies early satiety, Reports heartburn, Denies diarrhea, Reports nausea, Denies odynophagia, Denies vomiting and Denies hematemesis Skin/Breast Denies pruritus, Denies lesions, Denies rash and Denies jaundice Neuro Reports Normal hearing present and Denies Abnormal speech present Endo Denies fatigue Aller/Immun Denies throat swelling and Denies tongue swelling Physical Exam Vital Signs: Last Vital Signs Pulse 73 12/07/24 15:05 BP 96/59 L 12/07/24 15:05 Oxygen Delivery Method Room Air 12/07/24 15:05 BMI result Body Mass Index 27.9 Const General: cooperative, no acute distress, well developed and well groomed Nutritional Appearance: well nourished Orientation/consciousness: oriented to person, oriented to place and oriented to time Limitations: language barrier HEENT Head: Yes normocephalic and Yes atraumatic Eyes General: appearance normal, both eyes and all related structures Pupils: Equal, round and reactive pupils present Neck Neck: Yes normal visual inspection and Yes no lymphadenopathy Thyroid: Thyroid normal Resp Effort & Inspection: normal respiratory effort and able to speak in complete sentences Auscultation: clear to auscultation bilaterally Cardio Rate: regular rate Rhythm: regular rhythm Heart sounds: Normal, physiologic split S2 sound present Peripheral pulses: radial pulses present and posterior tibial pulses present GI Inspection: No distended and No Abdominal panniculus present Palpation (GI): Soft to palpation, nontender, no guarding, not rigid and No hepatosplenomegaly present Percussion: Yes normal to percussion Auscultation: normal bowel sounds Rectal Exam - Female: deferred Skin General skin exam: no rashes or lesions noted, turgor normal, skin not dry, no jaundice, No spider nevi and no striae Rashes: no rashes Nails: normal Neuro General: oriented to person, oriented to place and oriented to time Cranial nerves: Yes Equal, round and reactive pupils present and Yes Normal hearing present Speech: No Abnormal speech present Extrem General: Yes normal to inspection, No clubbing, No cyanosis and No edema Psych Appearance: grossly normal and well kempt Mental Status: mental status grossly normal Speech and movement: Normal speech and movement present Affect: normal affect Thought process: Normal thought process present and not confabulating Thought content: Normal thought content present Insight: Limited insight present (Psych) Judgement: Limited judgement present (Psych) Results Reviewed Results Reviewed: Laboratory Tests 04/16/22 09/30/24 12/02/24 09:54 08:24 12:09 WBC 8.5 Hgb 12.1 Hct 35.8 L MCV 92.3 MCH 31.2 Plt Count 270 Estimated GFR 58 Total Bilirubin 0.5 AST 329 H ALT 285 H Alkaline Phosphatase 118 H ZEINAB Screen POSITIVE A ZEINAB Titer 1:80 H ZEINAB Titer 2 1:40 H ZEINAB Pattern Nuclear, Speckled A ZEINAB Pattern 2 A Anti-Mitochondrial Ab NEGATIVE Anti-Smooth Muscle Ab <20 Hepatitis A IgM Ab Nonreactive Hep Bs Antigen Negative Hep Bs Antibody NONREACTIVE Hep B Core Total Ab Nonreactive Hepatitis C Ab (EIA) Nonreactive Monoscreen Negative HIV 1&2 Ab/P24 Ag 4thGn Nonreactive EGD 11/14/2024 Findings: Larynx: Normal Esophagus: Tortuous esophagus with increased tertiary contractions without stricture or ring. GE junction at 32 cms. No esophagitis or Carrasquillo?s. Stomach: Maurice en Y gastric bypass status. Small gastric pouch from 32 to 35 cms. Normal anastomosis without ulcers. Mild gastric erythema. Biopsies were obtained from the gastric pouch. Duodenum/Jejunum: Maurice loop anastomosis reached at 120 cms - appeared patent without stenosis. A 2 cms long, 2-3 mm wide linear chronic appearing ulcer at anastomotic site - biopsies were obtained Intervention: Biopsies as noted above Impression and Post Procedure Diagnosis: Endoscopy Findings: ESOPHAGUS: Tortuous esophagus with increased tertiary contractions without stricture or ring. STOMACH: Small gastric pouch from 32 to 35 cms. Normal anastomosis without ulcers. Mild gastric erythema. Biopsies were obtained from the gastric pouch. DUODENUM/JEJUNUM: Maurice loop anastomosis reached at 120 cms - appeared patent without stenosis. A 2 cms long, 2-3 mm wide linear chronic appearing ulcer at anastomotic site - biopsies were obtained Abdominal pain possibly related to anatomotic ulcer versus constipation Plan: Continue Pantoprazole 40 mg twice a day for peptic ulcer disease. Await MRCP results. Pt can schedule a FU appointment with Aniya Barahona NP after she is discharged. Above findings were reviewed with the patient and relevant handouts were given and the discharge area. BIOPSIES SHOWED: A. Small bowel, anastomosis, biopsy: Duodenal mucosa with active duodenitis, focally flattened villi with evidence of chronic injury, and granulation tissue with erosion; no evidence of dysplasia or malignancy. B. Stomach, biopsy: Gastric body mucosa with minimal chronic inactive gastritis; negative for H.pylori, intestinal metaplasia and dysplasia MRCP 11/14/2024 Findings: There is motion artifact. Question previous gastric bypass. There is prominent stool in the visualized portion of the colon. Suspect previous cholecystectomy. The common bile duct measures 10 mm. No choledocholithiasis is identified. The pancreatic duct is nondilated. There are several small cystic lesions in the pancreas measuring up to 3 mm. There is diffuse pancreatic atrophy. Impression: Suspect previous cholecystectomy. Diameter of the common bile duct with is within normal limits in the setting. Small cystic lesions in the pancreas are likely incidental. If clinically warranted consider comparison to previous or follow-up MR to assess for long-term stability. Assessment & Plan Assessment & Plan (1) VAZQUEZ (nonalcoholic steatohepatitis): Comment: BASELINE LABS 03/13/22 Plt Count 258 Estimated GFR > 60 Ferritin 43 Total Bilirubin 0.8 AST 179 H ALT 108 H Alkaline Phosphatase 106 D 04/16/22 Plt Count 267 Hemoglobin A1c % 6.2 Ferritin 21 Total Bilirubin 0.5 GGT 149 H AST 71 H ALT 58 H Anti-Mitochondrial Ab NEGATIVE Anti-Smooth Muscle Ab <20 Hepatitis A IgM Ab Nonreactive Hep Bs Antigen Negative Hep Bs Antibody NONREACTIVE Hep B Core Total Ab Nonreactive Hepatitis C Ab (EIA) Nonreactive HIV 1&2 Ab/P24 Ag 4thGn Nonreactive She does not drink ETOH ULTRASOUND THE ABDOMEN WITH ELASTOGRAPHY (F0-F1) Laboratory Tests 09/30/2503/18/25 10:5908:24 Estimated GFR > 60 Ferritin 304 H Total Bilirubin 0.5 Direct Bilirubin 0.2 AST 403 H ALT 368 H Alkaline Phosphatase 104 Lactate Dehydrogenase 527 H Amylase 61 Lipase 18 ZEINAB Screen POSITIVE A Hepatitis A IgM Ab Nonreactive Hep Bs Antigen Negative Hep Bs Antibody NONREACTIVE Hep B Core Total Ab Nonreactive Hepatitis C Ab (EIA) Nonreactive Monoscreen Negative HIV 1&2 Ab/P24 Ag 4thGn Nonreactive ULTRASOUND OF THE ABDOMEN 02/19/23 IMPRESSION: 1. There is generalized increase in hepatic echotexture, consistent with fatty infiltration or hepatocellular disease. Please correlate clinically. No focal hepatic mass or intrahepatic biliary dilatation is seen. 2. The gallbladder is surgically absent. 3. Technically limited ultrasound examination of the pancreas and abdominal great vessels. Code(s): K75.81 - Nonalcoholic steatohepatitis (VAZQUEZ) Category: Medical Plan KOSOVAN #Charlee Parish Her GI regimen now consists of pantoprazole 40 mg twice a day, metoclopramide 10 mg 4 times a day, Creon 2 caps twice a day, lactulose as needed for constipation, bisacodyl 3 tabs as needed for constipation, Linzess 290 micro g, simethicone 4 times a day as needed for bloating. 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 I would also like to stop her vitamin C adn iron as these can also cause gastric ulcers. She is only taking the pantopraozle qd and I want to be sure she takes it bid. They also added both lactulose along with her Linzess and bisacodyl and she continues on these. She says that she is feeling generally better although she still has some abdominal pain bloating and heartburn. The persistent heartburn is a good reason why we need to get twice a day PPI on board. She says she is slowly and cautiously advancing her diet and doing okay with that. She is moving her bowels daily and she really likes the bisacodyl as she feels this is extremely effective along with the other medications. Hopefully she will continue to improve. I want to cautiously schedule her out for an 8 week follow-up. Next office visit consider repeating labs for her transaminitis. Medications: New lactulose 30 mL PO TID PRN 3,000 mL 6RF Constipation bisacodyl (Dulcolax (bisacodyl)) 15 mg (3 x 5 mg) PO BEDTIME PRN 90 tabs 3RF Constipation Changed From [id number] 24,000-76,000 -120,000 unit (Creon) 1 cap PO BID To [id number] 24,000-76,000 -120,000 unit (Creon) 2 caps PO BID 60 caps 6RF From linaclotide (Linzess) 290 mcg PO DAILY To linaclotide (Linzess) 290 mcg PO DAILY 90 caps 0RF 90 days Refilled pantoprazole 40 mg PO BID@0630,1630 180 tabs 1RF simethicone (Gas Relief (simethicone)) 180 mg PO QID 120 ea 2RF metoclopramide HCl 10 mg PO QID 120 tabs 6RF K31.84 - Gastroparesis Discontinued famotidine Discontinued Reason: Doctor's Order 20 mg PO DAILY 30 tabs 6RF K28.9 - Gastrojejunal ulcer, unspecified as acute or chronic, without hemorrhage or perforation On Hold ferrous sulfate (iron) Hold Comment: Doctor's Order 325 mg PO DAILY 90 tabs 3RF Coding Level of Care Code Est Pt Level 4 (04306) Diagnoses VAZQUEZ (nonalcoholic steatohepatitis) K75.81 Time Spent (min) 40
[2024-12-07 15:05] VITALS: BP 96/59; PULSE 73; BMI 27.9
--- OUTSIDE RECORDS SUMMARY | 2024-12-07 17:50 | XMS_ITS | Data Portability ---
Author Organization [employer] [facility], [place] [employer] [facility] Address [address] [place] [address] Care Team Providers Care Fruit Grading Supervisor Name Role Phone HIM [facility] OTHER [facility] Referring Provider Assessment Encounter Date Assessment [...] Assessment and Plan as documented by the Air Quality Specialist. We discussed the diagnostic uncertainty of home [...] )to call 911- verbalized understanding of instruction [email or web address] Not available 06/06/2024 22:29:59 Plan of Treatment Reminders Order Date Submit Date Provider Last Modified By Organization Details Last Modified Time Details Appointments None recorded. Lab rapid flu (A+B) 2023 024 [email or web address] 0 Main - [facility], [address] [place] [address], [id number] 4 12:27:12 rapid SARS CoV 2 Ag, QL IA, respiratory specimen 2023 024 [email or web address] 0 Main - [facility], [address] [place] [address], [id number] 4 12:27:12 rapid strep group A, throat 2023 024 [email or web address] 0 Main - [facility], [address] [place] [address], [id number] 4 12:27:12 BMP, serum or plasma 2023 024 [email or web address] 0 Main - [facility], [address] [place] [address], [id number] 4 12:27:12 Referral None recorded. Procedures None recorded. Surgeries None recorded. Imaging None recorded. Medication Orders albuterol sulfate 2.5 mg/3 mL (0.083 %) solution for nebulizatio n 2023 [email or web address] 0 Not available 12:27:12 azithromyci n 250 mg tablet 2023 024 [email or web address] 0 Not available 12:27:12 azithromyci n 250 mg tablet 2023 [facility], [address] [place] [address], [id number], 12/24/202 4 10:06:34 potassium chloride ER 20 mEq tablet,exte nded release 2023 [email or web address] 0 Not available 4 12:27:12 prednisone 20 mg tablet 2023 024 [email or web address] 0 Not available 4 12:27:12 prednisone 20 mg tablet 2023 [facility], [address] [place] [address], [id number], 4 10:06:35 Mucinex DM 30 mg-600 mg tablet,exte nded release 12 hr 2023 [facility], [address] [place] [address], [id number], 5 11:34:59 Patient TargetsNo targets recorded. Patient InstructionsNo instructions recorded. Reason for Referral None Reported. Results Created Date Observation Date Name Description Value Unit Range Abnormal Flag Note LastModifiedBy Organization Detail LastModifiedTime 06/06/20 24 06/06/2024 rapid strep group A, throa t Strep negati ve Not Available Main - [facility] ed [address] [place] [address], [id number] 06/06/2024 11:26:51 06/06/20 24 06/06/2024 rapid SARS CoV 2 Ag, QL IA, respi rator y speci men rapid SARS CoV 2 Ag, QL IA, respiratory specimen negati ve Not Available Main - [facility] ed [address] [place] [address], [id number] 06/06/2024 11:26:50 06/06/20 24 06/06/2024 rapid flu (A+B) Flu negati ve Not Available [facility] - [facility] ed [address] [place] [address], [id number] 06/06/2024 11:26:49 Result Notes None recorded. Medical Equipment None Reported. Allergies No known drug allergies Medications Name Sig Start Date Stop Date Status Note LastModified by Organization Details LastModified Time sorbugen/cet iriz/albuter ol 50 each RICARDO 10 CC/ML CADA SEIS HORAS active Not Available Not Available N ot Available medbox status USE DIRECTED active Not Available Not Available No t Available cyclobenzapr ine 10 mg tablet TAKE [...] Address Organization Details Last Updated DateTime 4 52366.0 4 g 16 /min 98 [degF] 152.4 cm 100 % 100 % 68 /min 100 mm[Hg] 69 mm[Hg] Not Available [employer] 4 11:40:00 Date Recorded Body height Provider Name an d Address Organization Details Last Updated DateTime 06/06/2024 152.4 cm Suzy Caldera [address] [place] [address],[address], [place], [address], [place] [facility] [employer] 06/06/2024 12:10:31 Date Recorded Heart rate Oxygen saturation Oxygen saturation in Arterial blood by Pulse oximetry Respiratory rate Body temperature Systolic blood pressure Diastolic blood pressure Provider Name and Address Organization Details Last Updated DateTime 4 78 /min 100 % 100 % 18 /min 98 [degF] 106 mm[Hg] 53 mm[Hg] Not Available [employer] [facility] 11:21:28 Social History None recorded. Functional Status None recorded. Mental Status None recorded. Family History Nothing Reported. Medical History No medical history recorded. Gynecological HistoryNo gynecological history recorded. Obstetrics History GPAL:G 0 P 0 0 0 0 Past Encounters Encounter ID Performer Location Encounter Start Date Encounter Closed Date Diagnosis/Indication Diagnosis SNOMED-CT Code Diagnosis ICD10 Code Diagnosis Note [id number] [facility]atelyn Rodriguez [facility] [address] [place] [id number] 12/14/2023 11:35:06 12/14/2023 18:48:14 Headache 97135141 R51.9 [id number] [facility]ilani [facility]endleton [facility] [address] [place] [phone] 06/06/2024 11:21:26 06/06/2024 23:50:20 Upper respiratory infection 95654124 J06.9 w/ exacerbati on of asthma- improved after neb lungs cta but increased cough Will cover with azithromyc in and steroids/v ia Somali language line interprete r made patient aware [...] Vivar Member ID Guarantor Name 06/06/2024 1 [facility] - DOS ON OR AFTER 2022 - DUAL ELIGIBLE - SNF OPTIONS AND ONE CARE (MEDICARE REPLACEMENT/ADV ANTAGE - HMO) Hayley Beltrana [id number] Hayley Shannon Notes Date Note Type Note [...] [facility] as not able to come into [facility]. Confirmed allergies and that no pets in home. Reviewed home care advise, ER precautions and reasons to call back. ................... ................... ................... ................... ................... ................... ................... ........ CRC Nurse Triage Notes (Rachael Lo): Comments: HPI reviewed. No further information needed to process visit. Air Quality Specialist POC Test Results from Gerardo Lazar - ALS iSTAT Chem8+ (13:24:48) Na: 142 mEq/L K: 5.0 mEq/L Cl: 110 mEq/L iCa: 1.21 mmol/L TCO2: 22 mmol/L Glu: 86 mg/dL BUN: 11 mg/dL Crea: 0.9 mg/dL Hct: 39 % Hb: 13.3 g/dL A ................... ................... ................... ................... ................... ................... ................... ........ Air Quality Specialist Note From Gerardo Lazar: [facility] visit for female patient. Pt presents conscious and alert. Pt Somali speaking only so rehabilitation therapist services were used. Pt reports 4 days [...] little bit low. Pt afebrile. Consulted with [facility] Dr. Rodriguez who advised blood drawn BMP and IV fluids. IV placed and BMP drawn and uploaded to [facility] jen. Dr. Rodriguez ordered 500 cc of normal saline in addition to 1 gram of IV magnesium, both given on scene. Reviewed red flags for ED and PT education provided. ................... ................... ................... ................... ................... ................... ................... ........ Disposition: Fulfilled Katelyn Rodriguez MD [address] [facility],[address], [place], [address], [facility] - [employer] [facility] 12/14/2023 15:10:31 06/06/2024 text/html HPI: Call returned to Hayley Wang to triage below. Reports having asthma sx x 4 days. Pt having cough, fever and wheezing. Pt having to use inhaler Q4H. Pt also endorses ST. Pt had negative home kit for COVID-19 yesterday. Pt having chest tightness with cough. Pt advised of disposition, [facility] come into [facility] in center. Confirmed demographics and allergies. ................... ................... ................... ................... ................... ................... ................... ........ CRC Nurse Triage Notes (Nayely Arango - RN): Chief Complaints: Asthma, Cough PMH: COPD/Asthma, Hypertension, Hypothyroidism, Asthma, Diabetes Mellitus Type 2, Coronary Artery Disease Comments: HPI reviewed Air Quality Specialist Organization Information for [employer] Name: [employer] Address: [address] [place] [id number], Imaging Assistant: Mj Krause MD CLIA No.: [id number] Air Quality Specialist POC Test Results from [employer] Rapid [...] ................... ................... ................... ................... ................... ................... ........ Air Quality Specialist Note From [employer]: [facility] makes pt contact a 73 yo FF CC of cough/cold like [facility] obtains vital signs, [facility] uses rehabilitation therapist services due to language barrier. PT explains she has been sick for 9 days including a fever, cough, congestion, productive phlegm consisting of dark green, pt has a hx of asthma, pt has a metal plate in chest from a resuscitation 4 months ago. PT is complaining of chest pain from the cough and not being able to sleep. [facility] tests for flu and covid, negative, tests for strep negative. PT has no allergies, a medication list is provided to [facility] contacts [facility], [facility] requests an istat which is obtained via butterfly in the left AC and bandaged appropriately, and uploaded. [facility] advises pt has bronchitis. [facility] orders 500mg of azithromycin, 40mg of prednisone, 40meq of potassium which is given po. [facility] also orders a nebulized albuterol treatment, PT reports minor relief from albuterol although pts lungs on reassessment are free of any wheezes. PT is also prescribed antibiotics which she is instructed to began taking tomorrow. [facility] explains red flags such as severe chest pain, severe sob, uncontrolled fever she should call us back or go to the hospital. [facility] also explains pt should stay hydrated and use the prescribed cough syrup to try and loosen up the pehlgm and also reduce her coughing. PT understands. [facility] clears ................... ................... ................... ................... ................... ................... ................... ........ [facility] Consulted: Leilani Pendleton ................... ................... ................... ................... ................... ................... ................... ........ Disposition: Fulfilled Leilani Pendleton MD [address] [facility],[address], [place], [address], [employer] 06/06/2024 22:30:16 OBGyn Episode No OBEpisode recorded.
== END 2024-12-07 15:22 | disposition home or self-care (01) ==
LOC: HO.HGI 14:56
PROVIDERS: PCP Internal Medicine; Visit Provider Nurse Practitioner
DX: K75.81 Nonalcoholic steatohepatitis (NASH) (principal)
CPT/HCPCS: 99214

== ENCOUNTER → 2024-12-07 14:55 | Outpatient (BNVA) | payer OTHER, SELFPAY | PROVIDERS: PCP Internal Medicine; Visit Provider Nurse Practitioner | DX: K75.81 Nonalcoholic steatohepatitis (NASH) (principal); K21.9 Gastro-esophageal reflux disease without esophagitis; K59.04 Chronic idiopathic constipation; R11.2 Nausea with vomiting, unspecified; R10.31 Right lower quadrant pain | CPT/HCPCS: 99212 ==

== ENCOUNTER 2024-12-09 08:38 | Outpatient (REF) | payer OTHER, SELFPAY ==
--- OUTSIDE RECORDS SUMMARY | 2024-12-09 08:51 | XMS_ITS | Encounter Summary ---
Author Organization [employer] Address [address] [facility] [address] [place] [address] Care Team Providers Care Heddler Name Role Phone Mary Rod MD Primary Care Provide r Encounter Details Date Type Department Care Team (Late st Contact Info) Description 03/24/2023 Abstract [facility] MEDICINE [address], [place] [phone] Tonia Cardoza Social History Tobacco Use Types [...] Care Team (Late st Contact Info) Description 03/10/2025 9:45 AM EDT Office Visit [facility] MEDICINE [address] [place] [address] Mary Rod MD [address] [place] [address] 05/15/2025 9:45 AM EST Office Visit [facility] OPTOMETRY [address] [place] [address] TarkaTonya, OD [address] [place] [address] documented as of this encounter Goals Goal [...] documented as of this encounter Care Teams Heddler Relationship Specialty Start Date End Date Mary Rod MD [address] [place] [address] PCP [facility] documented as of this encounter
[2024-12-09 11:24] LABS: Appearance Urine Clear; Color Urine Yellow; Glucose Urine UA >=1000 mg/dL (Negative); Leukocyte Esterase Urine Negative (Negative); Nitrite Urine Negative (Negative); PH 6.5 (5.0-9.0); Specific Gravity - Urine >= 1.030 (1.005-1.025); UMIC TRIGGER UACC YES; Urine Blood Small (1+) (Negative); Urine Ketones Negative (Negative); Urine Protein 30 (1+) mg/dL (Neg-Trace)
[2024-12-09 11:32] LABS: Bacteria Urine None Seen (None Seen); WBC Urine 0-5 /HPF (0-5)
[2024-12-09 11:53] LABS: Microalbum/Creatinine Ratio Ur 46.1 ug/mg cr (<30)
[2024-12-09 12:04] LABS: Cholesterol 113 mg/dL (<200); HDL Cholesterol 48 mg/dL (>40); LDL Cholesterol Calculated 51 mg/dL (<100); Triglycerides 72 mg/dL (<150)
== END 2024-12-09 08:39 | disposition home or self-care (01) ==
LOC: HO.HHCL 08:38
PROVIDERS: Nurse Practitioner; PCP Internal Medicine; Visit Provider Internal Medicine
DX: E11.22 Type 2 diabetes mellitus with diabetic chronic kidney disease (principal); N18.9 Chronic kidney disease, unspecified
CPT/HCPCS: 36415; 80061; 81001; 81003; 82043; 82570

== ENCOUNTER 2025-01-11 09:07 | Outpatient (AMB) | payer OTHER, SELFPAY ==
--- NOTE | 2025-01-11 09:11 | MHC.OFFVIS ---
Vital Signs 01/11/25 09:16 Height 5 ft Weight 143 lb 1.28 oz BMI 27.9 BP 102/60 Blood Pressure Location Rt brachial Position Sitting Pulse 58 Pulse Source Pulse Oximeter Pulse Oximetry (%) 96 Oxygen Delivery Method Room Air Intake Visit Reasons: back pain Intake Note: Patient presents for back pain follow up. Patient Financial Representative Required: Yes Patient Financial Representative Language: Supervisor [employer] Services: Patient Financial Representative Present Patient Financial Representative Name: Mina [id number] Information Interpreted: non-clinical & clinical Allergies No Known Allergies (No Known Allergies*) Allergy (Verified 01/11/25 09:16) Medication List - Last Reconciled 01/11/25 by Apurva Scales MD acetaminophen 650 mg (2 x 325 mg) PO Q6H PRN 14 days albuterol sulfate 90 mcg/actuation (Ventolin HFA) 2 inhalations inhalation Q4H PRN aspirin 81 mg PO DAILY bisacodyl (Dulcolax (bisacodyl)) 15 mg (3 x 5 mg) PO BEDTIME PRN blood sugar diagnostic As directed ylnhijxuul-fuzpwbzzkezlc-egfu 50-300-40 mg (Fioricet) 1 cap PO Q6H PRN blolimigmi-njlpklgdrjvvf-yomp 50-325-40 mg 1 tab PO Q4H PRN cholecalciferol (vitamin D3) 50 mcg PO DAILY 30 days clonazepam 1 mg PO BID PRN clotrimazole 1% 1 appl topical DAILY CPAP (CPAP Machine/Device) As directed CPAP (CPAP Machine/Device) As directed dapagliflozin propanediol (Farxiga) 10 mg PO DAILY diclofenac sodium 1% 1 g topical BID PRN dulaglutide 0.75 mg subcut QWEEK ferrous sulfate (iron) 325 mg PO DAILY Held on 12/07/24. Instructions: Doctor's Order lmziihmfdrf-wtcspgmxa-ybfrqcny 200-62.5-25 mcg (Trelegy Ellipta) 1 inh inhalation DAILY 30 days folic acid 1 mg PO DAILY gabapentin 600 mg PO TID imipramine HCl 20 mg (2 x 10 mg) PO BEDTIME 30 days isosorbide mononitrate ER 30 mg PO DAILY lactulose 30 mL PO TID PRN lancets As directed levothyroxine 125 mcg PO DAILY@0600 linaclotide (Linzess) 290 mcg PO DAILY 90 days stosou-nvokaade-qisnetx 24,000-76,000 -120,000 unit (Creon) 2 caps PO BID metformin ER 500 mg PO BID metoclopramide HCl 10 mg PO QID metoprolol succinate ER 50 mg PO DAILY mirtazapine 7.5 mg PO BEDTIME montelukast 10 mg PO BEDTIME fczvogwwbyxu-uoks-gibie acid 18-400 mg-mcg (Certavite-Antioxidant) 1 tab PO DAILY nitroglycerin 0.3 mg sublingual DIRECTED nystatin 1 appl topical BID ondansetron 4 mg PO Q6H PRN pantoprazole 40 mg PO BID@0630,1630 rosuvastatin 40 mg PO DAILY simethicone (Gas Relief (simethicone)) 180 mg PO QID topiramate 25 mg PO DAILY tramadol 50 mg PO QID venlafaxine ER 150 mg PO DAILY venlafaxine ER 75 mg PO DAILY HPI Comments Details: Patient is a 74-year-old female with ANGIE on CPAP, diabetes, iron-deficiency anemia, hypertension complicated by coronary artery disease, hypothyroidism, GERD, hyperlipidemia, depression, polyarticular osteoarthritis and degenerative disease of the spine here today for follow up Interval History: Patient last seen 09/30/23 with Brittany Guaman - Following up for her OA - Multiple complaints including: left shoulder, right knee, and the lower back Today - complaining of left wrist pain (of note had a fall with fracture of the left wrist with ORIF, seeing hand surgery), back pain and shoulder pain - Tramadol and gabapentin help with the pain Rheumatologic History: OA and degenerative spine disease Current Rheumatology Medication(s): Tramadol 50mg qid PFSH Medical History Abdominal pain Dysuria Myocardial infarction Left hip pain Sacroiliac joint pain Elevated liver enzymes Right knee pain Left lumbar radiculitis Lumbago with sciatica Sepsis Right anterior knee pain Nausea and vomiting Candidiasis of mouth and esophagus Medication monitoring encounter Abnormal findings on diagnostic imaging of musculoskeletal system Asthma ANGIE (obstructive sleep apnea) Diabetes Esophageal dysmotilities Esophageal candidiasis Pneumonia Cystitis Recurrent UTI (urinary tract infection) Vitamin D deficiency Hypothyroidism Osteoporosis B12 deficiency Iron deficiency anemia IBS (irritable bowel syndrome) Surgical History H/O hand surgery H/O heart surgery Hx of gastric bypass History of esophagogastroduodenoscopy (EGD) Hx of colonoscopy History of arthroscopy of left shoulder Family History Father No problems noted. 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 Patient Tobacco Use Status: Never used Tobacco Advance Directives Date on File: 11/12/24 service: No Current occupational status: disabled Review of Systems Const Details: Review of Systems Constitutional: Denies fever, chills, weight loss ENT: Denies vision changes, eye pain or eye redness, dental caries, dry mouth GI: Denies nausea, vomiting, diarrhea, abdominal pain, change in BM Pulm: Denies SOB, PEÑA, hemoptysis, wheezing Cards: Denies chest pain, palpitations Skin: Denies Raynaud's, rash, nail changes, photosensitivity, COMBUSTION ANALYST: Denies headaches, weakness, paresthesias, recurrent falls MSK: as per HPI All other systems reviewed and are unremarkable except noted above Physical Exam Exam Exam: Vital signs reviewed Physical Examination CONSTITUITIONAL Patient alert and cooperative. Well appearing and in no apparent painful distress MSK Hands Right Hand: Able to make a fist. No swelling or tenderness to palpation of these joints. No deformities noted. Left Hand: Able to make a fist. No swelling or tenderness to palpation of these joints. No deformities noted. Herbedens nodes noted bilaterally Wrists Right Wrist: Full ROM. 70 degrees of wrist flexion, 80 degrees of wrist extension. No swelling or TTP Left Wrist: Decreased ROM with TTP of the joint Elbows Right Elbow: Full ROM. No swelling or TTP. No TTP of the medial and lateral epicondyles Left Elbow: Full ROM. No swelling or TTP. No TTP of the medial and lateral epicondyles Shoulders Right shoulder: Decreased ROM. No swelling noted. No TTP of the AC joint, subacromial bursa or posterior shoulder Left shoulder: Decreased ROM. No swelling noted. No TTP of the AC joint, subacromial bursa or posterior shoulder Knees Right knee: Full ROM. No swelling noted. No TTP of the knee joint lie or pes anserine bursa Left knee: Full ROM. No swelling noted. No TTP of the knee joint lie or pes anserine bursa. Crepitations felt bilaterally Ankles Right ankle: Good ankle dorsiflexion and plantar flexion. No swelling. No TTP of the ankle joint Left ankle: Good ankle dorsiflexion and plantar flexion. No swelling. No TTP of the ankle joint Feet Right foot: Negative squeeze test Left foot: Negative squeeze test Tender points? Tenderness to palpation of the bilateral trapezius, supraspinatus, anterior costochondral junctions, bilateral suboccipital muscle insertions SKIN No rashes Vital Signs: Last Vital Signs Pulse 58 01/11/25 09:16 BP 102/60 01/11/25 09:16 Pulse Ox 96 01/11/25 09:16 Oxygen Delivery Method Room Air 01/11/25 09:16 BMI result Body Mass Index 27.9 Results Reviewed Results Reviewed: Laboratory Tests 12/02/24 12:09 WBC 8.5 RBC 3.88 L Hgb 12.1 Hct 35.8 L Plt Count 270 Sodium 140 Potassium 4.9 Chloride 110 H Carbon Dioxide 25 BUN 13 Creatinine 0.94 AST 329 H ALT 285 H C-Reactive Protein < 0.10 US Abd w/ Elastography FINDINGS: Liver: The right lobe of the liver measures 13.8 cm in size. The left lobe of the liver measures 7.5 cm in size. The liver demonstrates normal homogeneous echotexture. There is a calcification in the right lobe. No focal mass is identified. There is mild prominence of intrahepatic biliary radicles. There is normal hepatopedal flow in the portal vein. Ultrasound elastography of the liver was performed with 10 separate measurements of the liver parenchyma with the patient in the supine position. Measurements were obtained approximately 2 cm below Demetrice's capsule and perpendicular to the capsule. The median shear wave velocity is 1.54 m/s (previously 1.38 m/s). The interquartile range/median (IQR/median) is 0.15. Gallbladder and biliary tree: The gallbladder is surgically absent. The common bile duct is normal in caliber measuring 5 mm. Kidneys: The right kidney measures 10.3 cm in length and demonstrates an extrarenal pelvis. The left kidney measures 9.3 cm in length. The kidneys are unremarkable, without evidence of masses, hydronephrosis, or calculi. Pancreas: The pancreas is obscured by bowel gas. Spleen: The spleen is normal in size and contour, measuring 7.2 cm in length. Abdominal aorta and inferior vena cava: The visualized portions of the abdominal aorta and inferior vena cava are normal in caliber. There is no free fluid in the abdomen. IMPRESSION: Status post cholecystectomy. Mild intrahepatic biliary ductal dilatation is likely related to prior cholecystectomy. The median shear wave velocity in the liver is 1.54 m/s, corresponding to a median liver stiffness of 7.1 kPa. The IQR/median value is 0.15. This is indicative of a poor quality data set, and the estimated liver stiffness may be unreliable. Findings are indicative of a low elastography value which rules out advanced chronic liver disease in asymptomatic patients. Assessment & Plan Assessment & Plan (1) Polyarticular osteoarthritis: Code(s): M15.9 - Polyosteoarthritis, unspecified Plan: #Polyarticular OA Patient is a 74-year-old female with polyarticular osteoarthritis including degenerative joint disease of the spine here today for follow up. Main complaint today is her left wrist which I informed her that she needs to follow up with her hand surgeon about because of the history of hardware there is nothing further I can do for that. With respect to her spine I recommended PT. We will refill her tramadol. Patient was asking for an increase in her gabapentin. We will facilitate this. Note is made of her significant LFTs for which she is following with GI for. Gabapentin in the setting of liver disease is not contraindicated and there is no current evidence of hepatic encephalopathy Plan - Gabapentin 800mg tid - Tramadol 50mg qid - RTC 1 year or sooner Plan I spent 20 minutes reviewing the record and labs, taking a history, examining the patient, discussing the treatment plan, ordering diagnostic work up and documenting in the medical record Medications: Changed From gabapentin 600 mg PO TID M47.816 - Spondylosis without myelopathy or radiculopathy, lumbar region To gabapentin 800 mg PO TID 90 tabs 5RF 30 days M47.816 - Spondylosis without myelopathy or radiculopathy, lumbar region Refilled tramadol 50 mg PO QID 120 tabs 4RF M54.40 - Lumbago with sciatica, unspecified side Coding Level of Care Code Est Pt Level 3 (59865) Diagnoses Polyarticular osteoarthritis M15.9
[2025-01-11 09:16] VITALS: BP 102/60; PULSE 58; O2SAT 96; BMI 27.9
--- OUTSIDE RECORDS SUMMARY | 2025-01-11 09:34 | XMS_ITS | Patient Health Record ---
Author Organization [facility] Address [address] [place] [address] Care Team Providers Care Control Clerk Name Role Phone Rogelio TOWNSEND, Laurent Primary Care Provider Frank Hernandez Unavailable [phone] Charles Clemons Unavailable Unavailable Reason For Referral No Information Medications Medication SIG (Take, Route, Frequency, Duration) Notes Start Date End Date Status Glucose Active Ketoconazole Active MiraLax Miralax as directed Orally t id for 30 days Active clonazePAM Active Reguloid Active ProAir HFA Active Zolpidem Tartrate Ac tive MiraLax Miralax as directed Orally t id for 30 days Active Pantoprazole Sodium Active Linzess 145 MCG 2 capsules Orally On ce a day for 30 day(s) 02/09/2014 Active Crestor Active Colace 100 MG 1 capsule as needed Orally bid for 30 day(s) Active metFORMIN HCl Active Colace 100 MG 1 capsule as needed Orally bid for 30 day(s) Active Calcium Active MiraLax Miralax as directed Orally t id for 30 days Active Gabapentin Active Metoprolol & Diet Manage Prod Active Effexor XR Active Calcitonin ([place]) Active Fluticasone Propionate Active Colace 100 MG 1 capsule as needed Orally bid for 30 day(s) Active Lisinopril Active Q-PAP Active Vitamin D Active Doc-Q-Lace 100mg 1 capsule oraly twic e a day for constipation for 30 days 11/11/2012 Active FreeStyle Lite Test Active Cyanocobalamin Activ e HYDROcodone-Acetaminophen BID Active Levothyroxine Sodium Active Problems Problem Type SNOMED Code ICD Code Onset Dates Problem Status W/U Status Risk Notes Problem 45700048 Slow transit constipation (K59.01) Active confirmed Plan Of Treatment Future Test Test Name Order Date UPPER GI ENDOSCOPY 12/01/2012 COLONOSCOPY 12/01/2012 Insurance Providers Payer Name Payer Address Payer Phone Subscriber Number Group Number Insured Name Patient Relationship to Insured Coverage Start Date Coverage End Date [facility] [address] [place] [id number] AMARILIS ENRIQUEZ Self - patient is the insured MEDICA[employer] OF [employer] [address] [place] [address] [id number] AMARILIS ENRIQUEZ Self - patient is the insured Medical (General) History Medical History History ICD Code NIDDM hypertension Denies CA,CVA,renal disease Colonoscopy in 08/2007 at [facility] C with Dr. Howe-1 tubular adenoma removed, but poor prep; F/U colonoscopy in 05/2008 at [facility] was negative and with an excellent prep as per the report asthma/bronchitis Depression Hypothyroidism hyperlipidemia GERD 02/2013-neg colonoscopy except diverticul osis and internal hemorrhoids 02/2013-EGD with a small HH and anatomy c /w her gastric bypass 04/2013 nd 12/2014-neg CT of abd/pelvis Chronic constipation Surgical History Surgery Date(Month/Year) cataracts gastric [id number] [facility]-lost 100 # [facility] Shoulder appendectomy varicose vein stripping
--- OUTSIDE RECORDS SUMMARY | 2025-01-11 09:34 | XMS_ITS | Clinical Summary ---
Author Organization [facility] Facility Address [address] [address] Care Team Providers Care Outside Sales Engineer Name Role Phone Natalee Rooney MD Primary Care Provider [phone] Allergies Active Allergy Reactions Criticality Noted Date [...] Quadrival ent, Adjuvanted 03/04/2021 Influenza, Injectable, Madin Mobile Canine Kidney, Preservative Free 08/23/2015 Influenza, Quadrivalent, [...] Visit [facility] [address] [place] [address] Rober Acharya MD [address] [facility] [address] [place] [address] Health Maintenance Due Date Last Done Comments Breast Cancer Screening 1950 Colorectal Cancer Screening: Annual FOBT 11/14/2000 Colorectal Cancer Screening: Colonoscopy 11/14/2000 Colorectal Cancer Screening: Sigmoidoscopy 11/14/2000 Diabetes: Ophthalmology Exam 07/16/2020 Diabetes: Pedal Pulse Checked 07/16/2020 Diabetes: Sensory Foot Exam 07/16/2020 Diabetes: Visual Foot Exam 07/16/2020 Diabetes: Hemoglobin A1C 11/09/2024 08/12/2024, 07/2 10/2023 Influenza Vaccine (#1) 2025 , 03/10/2022, 03/19/2021, Additional history exists Pneumococcal Vaccine: 50+ Years Completed 04/23/2021, 04/26/2017, 04/05/2012, Additional history exists Pneumococcal Vaccine: Peds (0 to 5 Years) and At-Risk Patients (6 to 49 Years) Discontinued 04/23/2021, 04/26/2017, 04/05/2012, Additional history exists Hepatitis B Vaccine Aged Out No longe r eligible based on patient's age to complete this topic Insurance [facility] ([id number]) [facility] ([id number]) Care Teams Outside Sales Engineer Relationship Specialty Start Date End Date Natalee Rooney MD PCP - General Family Medicine 02/05/21
--- OUTSIDE RECORDS SUMMARY | 2025-01-11 09:34 | XMS_ITS | Encounter Summary ---
Author Organization [employer] Address [address] [facility] [address] [place] [address] Care Team Providers Care Concentrator Operator Name Role Phone Mary Rod MD Primary Care Provide r Encounter Details Date Type Department Care Team (Late st Contact Info) Description 03/24/2023 Abstract [facility] MEDICINE [address] [place], [place] [id number] Tonia Cardoza Social History Tobacco Use Types [...] Description 03/10/2025 9:45 AM EDT Office Visit [facility] [address] [place] [address] Mary Rod MD [address] [place] [address] 05/15/2025 9:45 AM EST Office Visit [facility] OPTOMETRY [address] [place] [address] TarkaTonya, OD [address] [place] [address] documented as of this encounter Goals Goal [...] documented as of this encounter Care Teams Concentrator Operator Relationship Specialty Start Date End Date Mary Rod MD [address] [place] [address] PCP - General Family Medicine 02/07/22 [facility] 11[facility]16[facility]24 documented as of this encounter
== END 2025-01-11 09:50 | disposition home or self-care (01) ==
LOC: HO.RHE 09:07
PROVIDERS: PCP Internal Medicine; Visit Provider Student in an Organized Health Care Education/Training Program
DX: M15.9 Polyosteoarthritis, unspecified (principal)
CPT/HCPCS: 99213

== ENCOUNTER → 2025-01-11 09:07 | Outpatient (BNVA) | payer OTHER, SELFPAY | PROVIDERS: PCP Internal Medicine; Visit Provider Student in an Organized Health Care Education/Training Program | DX: M47.816 Spondylosis without myelopathy or radiculopathy, lumbar region (principal); M15.9 Polyosteoarthritis, unspecified | CPT/HCPCS: 99212 ==

== ENCOUNTER 2025-02-07 09:35 | Outpatient (REF) | payer OTHER, SELFPAY ==
[2025-02-07 11:05] LABS: MANUAL DIFF FLAG NO
[2025-02-07 11:29] LABS: Hematocrit 41.2 % (37.0-47.0); Hemoglobin 12.8 g/dl (12.0-16.0); Imm Gran Abs Auto 0.01 X10*3/uL (0.00-0.03); Imm Gran Pct Auto 0.2 % (0.0-0.4); Lymphocytes Absolute Auto 1.5 X10*3/uL (1.2-4.9); Mean Corpuscular HGB Conc 31.1 g/dl (31.0-35.0); Mean Corpuscular Hemoglobin 29.6 pg (27.0-33.0); Mean Corpuscular Volume 95.4 fL (80.0-98.0); NRBC Abs Auto 0.000 X10*3/uL (0.0-0.012); NRBC Pct Auto 0.0 /100WBC (0.0-0.2); Platelet Count 282 X10*3/uL (160-400); Red Blood Count 4.32 X10*6/uL (4.20-5.50); White Blood Count 4.3 X10*3/uL (4.8-10.8)
[2025-02-07 11:37] LABS: Appearance Urine Cloudy; Glucose Urine UA >=1000 mg/dL (Negative); PH 5.5 (5.0-9.0); Specific Gravity - Urine >= 1.030 (1.005-1.025); UMIC TRIGGER UACC YES
[2025-02-07 11:43] LABS: INTERNATIONAL NORM RATIO 0.9 (0.9-1.1); Prothrombin Time 9.9 SEC (10.9-12.4)
[2025-02-07 11:44] LABS: Hemoglobin A1C 164.5504 umol/L; Total Hemoglobin (HGBA1C) 3331.8076 umol/L
[2025-02-07 11:58] LABS: Other Crystals Urine Present
[2025-02-07 12:10] LABS: B Type Natriuretic Peptide 77 pg/mL (<100)
[2025-02-07 12:23] LABS: Alanine Aminotransferase 235 U/L (0-31); Albumin Level 4.2 g/dL (3.5-5.0); Alkaline Phosphatase 119 U/L (39-117); Anion Gap 13 (12-20); Aspartate Amino Transferase 259 U/L (5-31); Blood Urea Nitrogen 12 mg/dL (9-16); Calcium 9.2 mg/dL (8.4-10.2); Carbon Dioxide 23 mmol/L (22-29); Chloride 110 mmol/L (96-108); Estimated Glomerular Filt Rate 54; Potassium 4.8 mmol/L (3.3-5.1); Sodium 141 mmol/L (135-145); Total Protein 7.1 g/dL (6.5-8.0)
[2025-02-07 12:58] LABS: Free T4 (Free Thyroxine) 0.66 ng/dL (0.71-1.85)
== END 2025-02-07 09:36 | disposition home or self-care (01) ==
LOC: HO.LAB 09:35
PROVIDERS: PCP Internal Medicine; Visit Provider Nurse Practitioner
DX: E11.9 Type 2 diabetes mellitus without complications (principal); R10.31 Right lower quadrant pain; R74.01 Elevation of levels of liver transaminase levels; R30.0 Dysuria; R60.0 Localized edema; E03.9 Hypothyroidism, unspecified; Z79.01 Long term (current) use of anticoagulants; K28.9 Gastrojejunal ulcer, unspecified as acute or chronic, without hemorrhage or perforation; R29.6 Repeated falls; Z87.440 Personal history of urinary (tract) infections; K59.00 Constipation, unspecified; R14.0 Abdominal distension (gaseous)
CPT/HCPCS: 36415; 80053; 81001; 83036; 83880; 84439; 84443; 85025; 85610; 99212

== ENCOUNTER 2025-02-07 09:35 | Outpatient (AMB) | payer OTHER, SELFPAY ==
--- NOTE | 2025-02-07 09:39 | A.OFFVIS_ITS ---
Vital Signs 02/07/25 09:43 Height 5 ft Weight 138 lb 14.259 oz BMI 27.1 BP 124/60 Blood Pressure Location Lt brachial Position Sitting Pulse 68 Intake Visit Reasons: 8 wks f/u Intake Note: Hayley presents in the office as a 8 week follow up. CC: States that she is having bruises throuhout her arms. She states that she is retaining fluids and only urinating once a day. She states she is diabetic and she is having issues with her feet as well that is hurting her. She states that she gets reflux and stomach pains at times. Requirements Analyst Required: Yes Requirements Analyst Name: [id number] rossi Allergies No Known Allergies (No Known Allergies*) Allergy (Verified 01/11/25 09:16) HPI HPI 8 wks f/u: Details: Assessment & Plan (1) VAZQUEZ (nonalcoholic steatohepatitis): Comment: BASELINE LABS 03/13/22 Plt Count 258 Estimated GFR > 60 Ferritin 43 Total Bilirubin 0.8 AST 179 H ALT 108 H Alkaline Phosphatase 106 D 04/16/22 Plt Count 267 Hemoglobin A1c % 6.2 Ferritin 21 Total Bilirubin 0.5 GGT 149 H AST 71 H ALT 58 H Anti-Mitochondrial Ab NEGATIVE Anti-Smooth Muscle Ab <20 Hepatitis A IgM Ab Nonreactive Hep Bs Antigen Negative Hep Bs Antibody NONREACTIVE Hep B Core Total Ab Nonreactive Hepatitis C Ab (EIA) Nonreactive HIV 1&2 Ab/P24 Ag 4thGn Nonreactive She does not drink ETOH ULTRASOUND THE ABDOMEN WITH ELASTOGRAPHY (F0-F1) Laboratory Tests 09/30/2503/18/25 10:5908:24 Estimated GFR > 60 Ferritin 304 H Total Bilirubin 0.5 Direct Bilirubin 0.2 AST 403 H ALT 368 H Alkaline Phosphatase 104 Lactate Dehydrogenase 527 H Amylase 61 Lipase 18 ZEINAB Screen POSITIVE A Hepatitis A IgM Ab Nonreactive Hep Bs Antigen Negative Hep Bs Antibody NONREACTIVE Hep B Core Total Ab Nonreactive Hepatitis C Ab (EIA) Nonreactive Monoscreen Negative HIV 1&2 Ab/P24 Ag 4thGn Nonreactive ULTRASOUND OF THE ABDOMEN 02/19/23 IMPRESSION: 1. There is generalized increase in hepatic echotexture, consistent with fatty infiltration or hepatocellular disease. Please correlate clinically. No focal hepatic mass or intrahepatic biliary dilatation is seen. 2. The gallbladder is surgically absent. 3. Technically limited ultrasound examination of the pancreas and abdominal great vessels. Code(s): K75.81 - Nonalcoholic steatohepatitis (VAZQUEZ) Category: Medical Plan [facility] #[facility] Her GI regimen now consists of pantoprazole 40 mg twice a day, metoclopramide 10 mg 4 times a day, Creon 2 caps twice a day, lactulose as needed for constipation, bisacodyl 3 tabs as needed for constipation, Linzess 290 micro g, simethicone 4 times a day as needed for bloating. 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 I would also like to stop her vitamin C adn iron as these can also cause gastric ulcers. She is only taking the pantopraozle qd and I want to be sure she takes it bid. They also added both lactulose along with her Linzess and bisacodyl and she continues on these. She says that she is feeling generally better although she still has some abdominal pain bloating and heartburn. The persistent heartburn is a good reason why we need to get twice a day PPI on board. She says she is slowly and cautiously advancing her diet and doing okay with that. She is moving her bowels daily and she really likes the bisacodyl as she feels this is extremely effective along with the other medications. Hopefully she will continue to improve. I want to cautiously schedule her out for an 8 week follow-up. Next office visit consider repeating labs for her transaminitis. Medications: New lactulose 30 mL PO TID PRN 3,000 mL 6RF Constipation bisacodyl (Dulcolax (bisacodyl)) 15 mg (3 x 5 mg) PO BEDTIME PRN 90 tabs 3RF Constipation Changed From tbmiuy-tupfhqze-xmlcziu 24,000-76,000 -120,000 unit (Creon) 1 cap PO BID To pymlla-jnskdzrw-qhcydas 24,000-76,000 -120,000 unit (Creon) 2 caps PO BID 60 caps 6RF From linaclotide (Linzess) 290 mcg PO DAILY To linaclotide (Linzess) 290 mcg PO DAILY 90 caps 0RF 90 days Refilled pantoprazole 40 mg PO BID@0630,1630 180 tabs 1RF simethicone (Gas Relief (simethicone)) 180 mg PO QID 120 ea 2RF metoclopramide HCl 10 mg PO QID 120 tabs 6RF K31.84 - Gastroparesis Discontinued famotidine Discontinued Reason: Doctor's Order 20 mg PO DAILY 30 tabs 6RF K28.9 - Gastrojejunal ulcer, unspecified as acute or chronic, without hemorrhage or perforation On Hold ferrous sulfate (iron) Hold Comment: Doctor's Order 325 mg PO DAILY 90 tabs 3RF Laboratory Tests 04/16/22 09/30/24 12/02/24 09:54 08:24 12:09 Estimated GFR 58 Total Bilirubin 0.5 AST 329 H ALT 285 H Alkaline Phosphatase 118 H ZEINAB Screen POSITIVE A ZEINAB Titer 1:80 H ZEINAB Pattern Nuclear, Speckled A Anti-Mitochondrial Ab NEGATIVE Anti-Smooth Muscle Ab <20 Hepatitis A IgM Ab Nonreactive Hep Bs Antigen Negative Hep Bs Antibody NONREACTIVE Hep B Core Total Ab Nonreactive Hepatitis C Ab (EIA) Nonreactive Monoscreen Negative HIV 1&2 Ab/P24 Ag 4thGn Nonreactive Today's visit [facility] Her GI regimen now consists of pantoprazole 40 mg twice a day, metoclopramide 10 mg 4 times a day, Creon 2 caps twice a day, lactulose as needed for constipation, bisacodyl 3 tabs as needed for constipation, Linzess 290 micro g, simethicone 4 times a day as needed for bloating. senior risk manager Edgardo and Dr. Carrol Muro [facility] Medical History (Updated 02/07/25 @ 10:35 by ABE Breen) Dysuria Dilated cbd, acquired Mural thickening of small intestine Abdominal pain Myocardial infarction Left hip pain Sacroiliac joint pain Elevated liver enzymes Right knee pain Left lumbar radiculitis Lumbago with sciatica Sepsis Right anterior knee pain Nausea and vomiting Candidiasis of mouth and esophagus Medication monitoring encounter Abnormal findings on diagnostic imaging of musculoskeletal system Asthma ANGIE (obstructive sleep apnea) Diabetes Esophageal dysmotilities Esophageal candidiasis Pneumonia Cystitis Recurrent UTI (urinary tract infection) Vitamin D deficiency Hypothyroidism Osteoporosis B12 deficiency Iron deficiency anemia IBS (irritable bowel syndrome) Surgical History H/O hand surgery H/O heart surgery Hx of gastric bypass History of esophagogastroduodenoscopy (EGD) Hx of colonoscopy History of arthroscopy of left shoulder Family History Father No problems noted. 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 Patient Tobacco Use Status: Never used Tobacco Advance Directives Date on File: 11/12/24 service: No Current occupational status: disabled Review of Systems Const Reports difficulty sleeping, Denies fatigue, Denies fever(s), Reports frequent falls, Reports malaise, Denies night sweats, Reports poor appetite and Denies weight loss ENT Reports Normal hearing present, Denies dental pain, Denies dysphagia, Reports dizziness, Denies hearing loss, Denies mouth pain, Denies odynophagia, Reports disequilibrium, Denies throat swelling, Denies tongue swelling and Reports other (Dentition adequate) Card Reports leg edema and Reports dyspnea on exertion Resp Reports dyspnea on exertion and Reports wheezing GI Details: Reports abdominal pain, Denies melena, Denies bloating, Denies hematochezia, Reports constipation, Denies GI cramping, Denies dysphagia, Denies excessive flatus, Denies early satiety, Reports heartburn, Denies diarrhea, Denies nausea, Denies odynophagia, Denies vomiting and Denies hematemesis Details: difficulty urinating Musc Reports arthralgias and Reports muscle cramps Skin/Breast Reports dry skin, Denies pruritus, Reports lesions, Reports non-healing lesions, Denies rash and Denies jaundice Neuro Reports Normal hearing present, Denies Abnormal speech present, Reports di zziness, Reports frequent falls and Reports disequilibrium Psych Reports abnormal sleep pattern Endo Denies fatigue Luis Miguel/Lymph Reports easy bruising Aller/Immun Denies throat swelling, Denies tongue swelling and Reports wheezing Physical Exam Vital Signs: Last Vital Signs Pulse 68 08/26/25 09:43 BP 124/60 02/07/25 09:43 BMI result Body Mass Index 27.1 Const General: cooperative, no acute distress, well developed and well groomed Nutritional Appearance: well nourished and overweight Orientation/consciousness: oriented to person, oriented to place and oriented to time Limitations: language barrier and ambulation with cane HEENT Head: Yes normocephalic and Yes atraumatic Eyes General: appearance normal, both eyes and all related structures Pupils: Equal, round and reactive pupils present Neck Neck: Yes normal visual inspection and Yes no lymphadenopathy Thyroid: Thyroid normal Resp Effort & Inspection: normal respiratory effort and able to speak in complete sentences Auscultation: wheezes inspiratory wheezes and scattered wheezes Cardio Rate: regular rate Rhythm: regular rhythm Heart sounds: Normal, physiologic split S2 sound present Peripheral pulses: radial pulses present and posterior tibial pulses present GI Inspection: Yes distended and No Abdominal panniculus present Palpation (GI): Soft to palpation, nontender, no guarding, not rigid and No hepatosplenomegaly present Percussion: Yes normal to percussion Auscultation: normal bowel sounds Rectal Exam - Female: deferred Skin General skin exam: no rashes or lesions noted, turgor normal, skin not dry, no jaundice, No spider nevi and no striae Rashes: no rashes Nails: normal Neuro General: oriented to person, oriented to place and oriented to time Cranial nerves: Yes Equal, round and reactive pupils present and Yes Normal hearing present Speech: No Abnormal speech present Extrem Other: Areas of severe cracking laterally on the feet bile laterally as an diabetic foot disease noninfected that this moment General: Yes normal to inspection, No clubbing, No cyanosis and Yes edema (Mostly of feet mild on the legs) Psych Appearance: grossly normal and well kempt Mental Status: mental status grossly normal Speech and movement: Normal speech and movement present Affect: Labile affect present Attitude: cooperative Thought process: not confabulating and Tangential thought process present Thought content: Normal thought content present Insight: Poor insight present (Psych) Judgement: Poor judgement present (Psych) Results Reviewed Results Reviewed: CT of the brain 12/03/2024 FINDINGS: There is no evidence of intracranial hemorrhage or extra-axial fluid collection. There is no mass effect, or edema. No CT evidence of acute territorial infarct. Ventricles, sulci, and cisterns are normal in size and configuration for patient age. No hydrocephalus. No midline shift. Negative hyperdense MCA sign. Negative insular ribbon sign. Patchy periventricular and deep white matter hypoattenuation is consistent with mild to moderate small vessel ischemic changes. Old lacunar type infarct right caudate head. Partial empty sella. Mild atheromatous calcification of the bilateral carotid siphons. Globes and orbital contents image normally. There are bilateral lens replacements. No extracranial soft tissue abnormalities. There is a right mastoid tip effusion. Small fluid level right sphenoid sinus. The paranasal sinuses, mastoid air cells, and tympanic cavities are otherwise normally aerated. No suspicious bony abnormalities. There are no acute fractures evident. CT/CT head/brain wo IV con IMPRESSION: 1. No acute intracranial abnormality. 2. Small air-fluid level right sphenoid sinus. 3. Right mastoid tip effusion. Laboratory Tests 04/16/22 09/30/24 12/02/24 09:54 08:24 12:09 Estimated GFR 58 Total Bilirubin 0.5 AST 329 H ALT 285 H Alkaline Phosphatase 118 H ZEINAB Screen POSITIVE A ZEINAB Titer 1:80 H ZEINAB Pattern Nuclear, Speckled A Anti-Mitochondrial Ab NEGATIVE Anti-Smooth Muscle Ab <20 Hepatitis A IgM Ab Nonreactive Hep Bs Antigen Negative Hep Bs Antibody NONREACTIVE Hep B Core Total Ab Nonreactive Hepatitis C Ab (EIA) Nonreactive Monoscreen Negative HIV 1&2 Ab/P24 Ag 4thGn Nonreactive Assessment & Plan Assessment & Plan (1) Abdominal pain: Code(s): R10.9 - Unspecified abdominal pain Category: Medical Qualifiers: Abdominal location: right lower quadrant Qualified Code(s): R10.31 - Right lower quadrant pain (2) Diabetes: Code(s): E11.9 - Type 2 diabetes mellitus without complications Category: Medical (3) Transaminitis: Code(s): R74.01 - Elevation of levels of liver transaminase levels Category: Medical (4) Edema, lower extremity: Code(s): R60.0 - Localized edema Category: Medical (5) Dysuria: Comment: There is concern over recurrent persistent UTI She has no urinary obstruction seen She has appointment with Urology Code(s): R30.0 - Dysuria Category: Medical (6) Hypothyroidism: Code(s): E03.9 - Hypothyroidism, unspecified Category: Medical Qualifiers: Hypothyroidism type: acquired Qualified Code(s): E03.9 - Hypothyroidism, unspecified (7) Current use of anticoagulant therapy: Code(s): Z79.01 - [facility] (current) use of anticoagulants Category: Medical (8) Anastomotic ulcer: Code(s): K28.9 - Gastrojejunal ulcer, unspecified as acute or chronic, without hemorrhage or perforation Category: Medical (9) Recurrent falls while walking: Code(s): R29.6 - Repeated falls Category: Medical Plan She presents today saying she has been very unwell and has multiple complaints, some related directly to the GI system and others not. She says she has been having upper abdominal pain and bloating and isn't moving her bowels very well. She also has an extremely poor appetite related to the pain as it tends to w orsen when she eats. However she is also complaining of headaches, severe dizziness that has a affected her gait and cause multiple falls, spontaneous bruising without injury, extreme fatigue and malaise, and nonhealing wounds mostly from severe cracks on her feet due to diabetic calluses and skin disease. She endorses severe shortness of breath along with swelling of her lower extremities and difficulty urinating. She is also complaining of severe insomnia despite using zolpidem. Her GI regimen is supposed to consist of pantoprazole 40 mg twice a day, metoclopramide 10 mg 4 times a day, Creon 2 caps twice a day, lactulose as needed for constipation, bisacodyl 3 tabs as needed for constipation, Linzess 290 micro g, simethicone 4 times a day as needed for bloating. However, she says she receives all of her medications ?in a box? and she really does not know the names and whether or not she has taking or is adherent to all of her GI medications. She follows with our cardiology service here and with our pulmonology service for her cardiac and respiratory disease. It appears that these have been stable. Because of the wide range of her complaints I am going to get some general blood work along with a urinalysis a thyroid a hemoglobin A1c and a BNP. She had a recent head CT that did not seem to indicate any severe disease in terms of the dizziness. She also had a recent MRCP to investigate her upper abdominal pain and her sudden increase of her liver enzymes. Because she has been falling a lot I strongly recommended that she utilize a walker instead of a cane. She admits that the cane does not give her appropriate support, but the walker she has not home has loose handles and this is causing her problems. I do not know whether this is something that could be repaired. I am going to bring her back next week and I want her to bring her entire med box with her so that I can see whether any medications are not being appropriately administered. If she remembers to bring her walker we can also take a look at that. Return office visit next week Orders: Orders UA CC w/rflx Micro + Cult Today R30.0 - Dysuria, R63.4 - Abnormal weight loss TSH reflex Free T4 Today R30.0 - Dysuria, R63.4 - Abnormal weight loss Comprehensive Met. Panel Today E11.9 - Type 2 diabetes mellitus without complications, R10.31 - Right lower quadrant pain, R74.01 - Elevation of levels of liver transaminase levels Complete Blood Count Auto Diff Today E11.9 - Type 2 diabetes mellitus without complications, R10.31 - Right lower quadrant pain, R74.01 - Elevation of levels of liver transaminase levels Prothrombin Time INR Today E11.9 - Type 2 diabetes mellitus without complications, R10.31 - Right lower quadrant pain, R74.01 - Elevation of levels of liver transaminase levels Hemoglobin A1c Today E11.9 - Type 2 diabetes mellitus without complications, R10.31 - Right lower quadrant pain, R74.01 - Elevation of levels of liver transaminase levels B Type Natriuretic Peptide Today R60.0 - Localized edema Medications: Discontinued [id number]-dqxpvgendhivf-bcdm 50-325-40 mg Discontinued Reason: Duplicate 1 tab PO Q4H PRN 20 tabs 0RF headache Coding Level of Care Code Est Pt Level 4 (74134) Diagnoses Abdominal pain R10.31 Abdominal location: right lower quadrant Diabetes E11.9 Transaminitis R74.01 Edema, lower extremity R60.0 Dysuria R30.0 Acquired hypothyroidism E03.9 Hypothyroidism type: acquired Current use of anticoagulant therapy Z79.01 Anastomotic ulcer K28.9 Recurrent falls while walking R29.6 Time Spent (min) 40
[2025-02-07 09:43] VITALS: BP 124/60; PULSE 68; BMI 27.1
--- OUTSIDE RECORDS SUMMARY | 2025-02-07 10:13 | XMS_ITS | Encounter Summary ---
Author Organization [employer] Address [address] [facility] 7t [place] [address] Care Team Providers Care Veterinary Laboratory Technician Name Role Phone Mary Rod MD Primary Care Provide r Encounter Details Date Type Department Care Team (Late st Contact Info) Description 03/24/2023 Abstract [facility] MEDICINE [address] [place], [place] [phone] Tonia Cardoza Social History Tobacco Use Types [...] Description 03/10/2025 9:45 AM EDT Office Visit [facility] MEDICINE [address] [place] [address] Mary Rod MD [address] [place] [address] 05/15/2025 9:30 AM EST Office Visit [facility] OPTOMETRY [address] [place] [address] TarkaTonya, OD [address] [place] [address] documented as of this encounter Goals Goal [...] documented as of this encounter Care Teams Veterinary Laboratory Technician Relationship Specialty Start Date End Date Mary Rod MD [address] [place] [address] PCP - General Family Medicine 02/07/22 [facility] 11/16/24 01/15/25 documented as of this encounter
--- OUTSIDE RECORDS SUMMARY | 2025-02-07 10:13 | XMS_ITS | Encounter Summary ---
Author Organization [employer] Address [address] [facility] [address] [place] [address] Care Team Providers Care Horticulture Superintendent Name Role Phone Mary Rod MD Primary Care Provide r Reason for Visit * Reason Onset Date Comments Med Refill 10/12/2024 Encounter Details Date Type Department Care Team ([facility] st Contact Info) Description 10/12/[address] [facility] MEDICINE [address] [place], [place] [phone] Mary Rod MD [address] [place], [place] [phone] Med Refill Social History Tobacco Use Types [...] Nassar LPN - 10/12/2024 8:36 AM EDT SOFTWARE DEVELOPMENT ADVISOR checked on 10/12/24 Ambien last filled on 08/04/24 by Mariaelena Yan. * Telephone Encounter - Michael Fabian - 10/12/2024 8:30 AM EDT TC from pt requesting medication refill. Medications needing refill : zolpidem (Ambien) 10 MG tablet To be sent to: [facility] - [place], [place] - [address] [place] [address] documented in this encounter Plan of Treatment Upcoming Encounters Date Type Department Care Team (Late st Contact Info) Description 03/10/2025 9:45 AM EDT Office Visit [facility] MEDICINE [address] [place] [address] Mary Rod MD [address] [place] [address] 05/15/2025 9:30 AM EST Office Visit [facility] OPTOMETRY [address] [place] [address] Tonya Brennan, OD [address] [place] [address] documented as of this encounter Goals Goal [...] documented as of this encounter Care Teams Horticulture Superintendent Relationship Specialty Start Date End Date Mary Rod MD [address] [place] [id number] PCP - General Family Medicine 02/07/22 [facility] 11/16/24 01/15/25 documented as of this encounter
--- OUTSIDE RECORDS SUMMARY | 2025-02-07 10:13 | XMS_ITS | Encounter Summary ---
Author Organization [employer] Address [address] [place] [address] 7t [place] [address] Care Team Providers Care Panel Instrument Repairer Name Role Phone Mary Rod MD Primary Care Provide r Encounter Details Date Type Department Care Team (Late Contact Info) Description 11/12/2022 [facility] Advise Only Information Management [address] [place], [place] [phone] Mary Rod MD [address] [place] [address] Social History Tobacco Use Types Packs/Day Years [...] Description 03/10/2025 9:45 AM EDT Office Visit [facility] MEDICINE [address] [place] [address] Mary Rod MD [address] [place] [address] 05/15/2025 9:30 AM EST Office Visit [facility] OPTOMETRY [address] [place], [place] [phone] Tonya Brennan, OD [address] [place] [address] documented as of this encounter Goals Goal Patient Goal Type Associated Problems Recent Progress Patient-Stated? Author Record your blood pressure once per day Blood Pressure Giovany Dixon, JaredD Note: When you receive your new BP monitor Short-term: Promote adherence to treatment regimen General No Giovany Lin, PharmD documented as of this encounter Visit Diagnoses Not on filedocumented in this encounter Additional Health Concerns Assessment Noted Time PHQ-9 Depression Total Score: 0 10/29/19 23 9:50 AM EDT documented as of this encounter Care Teams Panel Instrument Repairer Relationship Specialty Start Date End Date Mary Rod MD [address] [place] [address] PCP - General Family Medicine 02/07/22 [facility] 11/16/24 01/15/25 documented as of this encounter
--- OUTSIDE RECORDS SUMMARY | 2025-02-07 10:13 | XMS_ITS | Encounter Summary ---
Author Organization [employer] Address [address] [facility] [address] [place] [address] Care Team Providers Care Immigration Judge Name Role Phone Mary Rod MD Primary Care Provide r Encounter Details Date Type Department Care Team ([facility] st Contact Info) Description 03/25/2023 Orders Only [facility] MEDICINE [address] [place], [place] [phone] ProviderLinsey MD Social History Tobacco Use Types [...] 9:45 AM EDT Office Visit [facility] MEDICINE [address] [place] [address] Mary Rod MD [address] [place] [address] 05/15/2025 9:30 AM EST Office Visit [facility] OPTOMETRY [address] [place] [address] TarkaTonya, OD [address] [place] [address] documented as of this encounter Goals Goal Patient Goal Type Associated Problems Recent Progress Patient-Stated? Author Record your blood pressure once per day Blood Pressure No Giovany Lin PharmD Note: When you receive your new BP monitor Short-term: Promote adherence to treatment regimen General No Giovany Lin PharmD documented as of this encounter Procedures Procedure Name Priority Date/Time Associated Diagnosis Comments COLONOSCOPY Routine 02/16/2023 documented in this encounter Results * Colonoscopy (02/16/2023) Historical Provider HEALTH MAINTENANCE Final Result documented in this encounter Visit Diagnoses Not on filedocumented in this encounter Additional Health Concerns Assessment Noted Time PHQ-9 Depression Total Score: 0 10/29/19 23 9:50 AM EDT documented as of this encounter Care Teams Immigration Judge Relationship Specialty Start Date End Date Mary Rod MD [address] [place] [address] PCP - General Family Medicine 02/07/22 Tequila MACIAS 11/16/24 01/15/25 documented as of this encounter
--- OUTSIDE RECORDS SUMMARY | 2025-02-07 10:13 | XMS_ITS | Clinical Summary ---
Author Organization [email or web address] Address [address] [facility] [address] [place] [address] Care Team Providers Care Plastic Tile Setter Name Role Phone Mary Rod MD Primary Care Provide r Allergies No known active allergies Medications Bisacodyl EC 5 MG EC tablet Take 3 tablets by mouth at bedtime. 10/18/19 23 Active clonazePAM (KlonoPIN) 1 MG tablet Take 1 tablet by mouth if needed in the morning, at noon, and at bedtime. 10/21/19 23 Active famotidine (Pepcid) 20 MG tablet Take 1 tablet by mouth 1 (one) time each day. 10/18/19 23 Active folic acid (Folvite) 1 MG tablet TAKE 1 TABLET BY MOUTH EVERY MORNING 09/20/19 23 Active FREESTYLE LITE test strip TEST BLOOD SUGAR TWICE DAILY 09/20/19 23 Active TRUEplus Lancets 33G misc TEST BLOOD SUGAR TWICE DAILY 09/20/19 23 Active Linzess 290 MCG capsule TAKE 1 CAPSULE BY MOUTH EVERY MORNING 09/20/19 23 Active metoclopramide (Reglan) 10 MG tablet TAKE 1 TABLET BY MOUTH FOUR TIMES DAILY (BEFORE MEALS AND AT BEDTIME) 10/18/19 23 Active mupirocin (Bactroban) 2 % ointment APPLY A THIN LAYER AFFECTED AREA(S) THREE TIMES DAILY 03/03/20 22 Active nitroglycerin (Nitrostat) 0.[address] 1 TABLET UNDER THE TONGUE NEEDED FOR CHEST PAIN - MAY REPEAT IN 5 MINUTES TWICE. IF NO RELIEF CALL 911 OR GO TO EMERGENCY ROOM. 07/31/19 23 Active pantoprazole (ProtoNix) 40 MG EC tablet Take 1 tablet by mouth 2 times daily. 10/18/19 Active Simethicone Ultra Strength 180 MG capsule Take 1 capsule by mouth 4 times daily. 10/18/19 Active traMADol (Ultram) 50 MG tablet Take 50 mg by mouth every 6 (six) hours if needed. 09/18/19 Active venlafaxine XR (Effexor XR) 150 MG 24 hr capsule Take 1 capsule by mouth in the morning. 10/18/19 Active venlafaxine XR (Effexor XR) 75 MG 24 hr capsule Take 1 capsule by mouth in the morning. 10/18/19 Active zolpidem (Ambien) 10 MG tablet Take 1 tablet by mouth at bedtime. 10/21/19 Active Blood Pressure Monitoring (Omron 3 Series BP Monitor) device USE DIRECTED ONCE DAILY 1 each 11/07/19 Active acetaminophen (Tylenol) 500 MG tablet Take 2 tablets (1,000 mg) by mouth every 6 (six) hours if needed for moderate pain or fever for up to 25 doses. 40 tablet 02/25/20 23 Active ipratropium-albute rol (Duo-Neb) 0.5-2.5 mg/3 mL nebulizer solution INHALE 1 AMPULE USING A NEBULIZER FOUR TIMES DAILY 180 mL 1 04/17/20 Active terbinafine (LamISIL AT) 1 % creamIndications:T inea pedis of both feet Apply topically 2 times daily. 30 g 06/12/20 Active Additional Information Patient not taking.Reported on 10/28/2023 budesonide-formote rol (Symbicort) 160-4.5 MCG/ACT inhaler INHALE 2 PUFFS BY MOUTH TWICE DAILY. RINSE MOUTH AFTER USING. 09/08/19 24 Active sacubitril-valsart an (Entresto) 24-26 MG tablet Take 1 tablet by mouth 2 times daily. Active albuterol (Ventolin HFA) 108 (90 Base) MCG/ACT inhaler INHALE 2 PUFFS BY MOUTH EVERY 4 HOURS NEEDED 18 g 3 11/16/19 24 Active bacitracin 500 UNIT/GM ointment APPLY 1 GRAM TOPICALLY TWICE DAILY TO BOTH HEELS 10/08/19 24 Active clotrimazole (Lotrimin) 1 % cream APPLY TO SKIN AND TOENAILS EVERY DAY FOR 12 WEEKS Active lactulose (Chronulac) 10 GM/15ML solution TAKE 30 ML BY MOUTH THREE TIMES DAILY 10/21/19 24 Active Multiple Vitamins-Iron (Tab-A-Star/Iron/B eta Carotene) tablet Take 1 tablet by mouth every morning with food 01/25/20 24 Active cyanocobalamin (Vitamin B-12) 1000 MCG tablet Take 1,000 mcg by mouth Once per day. Active pancrelipase, Yxm-Gyyt-Nuxj, (Creon) 17537-87910 units capsuleIndications :Pancreatic insufficiency TAKE 1 CAPSULE BY MOUTH FOUR TIMES DAILY WITH FOOD AND 1 CAPSULE WITH SNACKS DO NOT BREAK, CRUSH, DISSOLVE OR CHEW 120 capsule 3 02/12/20 24 Active lidocaine (Xylocaine) 5 % ointmentIndication s:Closed fracture of distal end of left radius, unspecified fracture morphology, initial encounter Apply topically if needed for mild pain. 50 g 1 05/20/20 24 025 Active Brilinta 90 MG tabletIndications: Essential hypertension TAKE 1 TABLET BY MOUTH TWICE DAILY IN THE MORNING AND IN THE EVENING 60 tablet 3 08/12/19 25 Active Trulicity 0.75 MG/0.5ML solution auto-injector INJECT ONE PEN (=0.75MG) SUBCUTANEOUSLY ONCE A WEEK DIRECTED 6 mL 3 09/09/19 25 Active aspirin (Aspirin Low Dose) 81 MG EC tablet TAKE 1 TABLET BY MOUTH EVERY MORNING 90 tablet 3 10/12/19 25 Active Multiple Vitamins-Minerals (CertaVite/Antioxi dants) tablet TAKE 1 TABLET BY MOUTH EVERY MORNING WITH FOOD 90 tablet 3 10/12/19 25 Active rosuvastatin (Crestor) 40 MG tablet TAKE 1 TABLET BY MOUTH AT BEDTIME 90 tablet 3 10/12/19 25 Active sucralfate (Carafate) 1 g tabletIndications: Epigastric pain TAKE 1 TABLET BY MOUTH FOUR TIMES DAILY BEFORE MEALS AND AT BEDTIME 120 tablet 10/19/19 25 Active Diclofenac Sodium 1 % gelIndications:Lef t hand pain APPLY 1 APPLICATION TOPICALLY TO AFFECTED AREA(S) EVERY TWELVE HOURS NEEDED 100 g 1 10/26/19 25 Active nystatin (Mycostatin) 602464 UNIT/GM powderIndications: Intertrigo APPLY TO THE AFFECTED AREA(S) TOPICALLY TWICE DAILY 60 g 1 11/01/19 25 Active montelukast (Singulair) 10 MG tablet TAKE 1 TABLET BY MOUTH AT BEDTIME 30 tablet 3 12/09/19 25 Active Farxiga 10 MGIndications:Type 2 diabetes mellitus with chronic kidney disease, without long-term current use of insulin, unspecified CKD stage ([facility]) TAKE 1 TABLET BY MOUTH EVERY MORNING 30 tablet 2 12/09/19 25 Active gabapentin (Neurontin) 600 MG tabletIndications: Spinal stenosis of lumbar region, unspecified whether neurogenic claudication present TAKE 1 TABLET BY MOUTH THREE TIMES DAILY IN THE MORNING, AT NOON, AND AT BEDTIME 90 tablet 2 12/23/19 25 Active metFORMIN XR (Glucophage-XR) 500 MG 24 hr tablet TAKE 1 TABLET BY MOUTH TWICE DAILY IN THE MORNING AND IN THE EVENING WITH FOOD 180 tablet 2 12/23/19 25 Active levothyroxine (Synthroid, Levoxyl) 125 MCG tabletIndications: Acquired hypothyroidism TAKE 1 TABLET BY MOUTH EVERY MORNING BEFORE BREAKFAST 30 tablet 2 12/23/19 25 Active topiramate (Topamax) 25 MG tablet TAKE 1 TABLET BY MOUTH EVERY EVENING 30 tablet 2 12/23/19 25 Active FREESTYLE LITE test stripIndications:D iabetic nephropathy associated with type 2 diabetes mellitus ([facility]/HCC) Use to test blood sugar 1 times daily 100 each 12 12/28/19 25 026 Active Lancets miscIndications: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 ([facility]/HCC) Use to test blood sugar 1 times daily 100 each 2 12/28/19 25 Active Alcohol Swabs 70 % padsIndications: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 ([facility]) Use to test blood sugar 1 times daily 100 each 12/28/19 25 Active Blood Glucose Monitoring Suppl (FreeStyle [employer]ite) w/Device kitIndications:Paty betic nephropathy associated with type 2 diabetes mellitus ([facility]) Use to test blood sugar 1 times daily 1 kit 12/28/19 25 Active metoprolol succinate XL (Toprol-XL) 50 MG 24 hr tabletIndications: Primary hypertension Take 0.5 tablets (25 mg) by mouth in the morning. 30 tablet 11 12/28/19 25 Active Active Problems Problem Noted Date Diagnosed Date Frequent falls 12/08/2024 Assessment & Plan (12/08/2024 3:28 PM EDT): Extensive counseling done, I advised to use proper footwear, use walker at all times, continue with physical therapy and vitamin D Metabolic dysfunction-associ ated steatotic liver disease (MASLD) 12/08/2024 Assessment & Plan (12/08/2024 3:27 PM EDT): Today extensive discussion was done about life style modifications I advise healthy diet (low calorie) and cardiovascular exercise Will continue to monitor with LFTS and US with electrography Left foot pain 12/08/2024 Assessment & Plan (12/08/2024 3:28 PM EDT): Podiatry referral done Epigastric pain 08/12/2024 Assessment & Plan (08/12/2024 [...] with specialist Coronary artery disease invo lving [place] coronary artery of [place] heart 05/20/2024 Ecchymoses, spontaneous 02/02/2024 Assessment & [...] Duoneb NBZ but advise to see her counter intelligence agent if needed -has apt w tennis ball cover cementer in 12/2023 Hyperkalemia 09/30/2023 Assessment & Plan [...] 06/12/2023 Acute kidney injury superimposed on CKD ([facility] ) 01/19/2023 Assessment & Plan (01/19/2023 4:49 [...] 06/25/2021 Stage 3a chronic kidney disease 04/23/2021 Assessment & Plan (12/08/2024 3:27 PM EDT): Stable It was advise good glucose and blood pressure control, maintain hydration and avoid nephrotoxic medications Hypertensive renal disease 01/07/2021 Essential hypertension 03/30/2017 [...] specialist Diabetes mellitus 12/11/2011 Assessment & Plan (12/08/2024 3:26 PM EDT): Diabetes is: controlled - Lab Results Component Value Date HGBA1C 6.2 (A) 08/12/2024 HGBA1C 6.2 (A) 01/07/2024 HGBA1C 6.4 (A) 07/20/2023 - Lab Results Component Value Date MICROALBUR 0.6 04/19/2021 CREATININE 0.94 12/02/2024 -Changes: none - Diabetic eye exam:up to date - Diabetic foot exam:pending - Continue lifestyle modifications - Continue current medications - Follow up: 3 months Assessment & Plan (08/12/2024 4:26 PM EST): [...] Encounters Date Type Department Care Team Description 12/27/2024 Orders Only [facility] [address] [place] [phone] Mary Rod MD Primary hypertension 12/27/2024 Telephone [facility] [address] [place] [phone] Mary Rod MD Call Back Request 12/22/2024 Refill [facility] [address] [place] [address] Mary Rdo MD Spinal stenosis of lumbar region, unspecified whether neurogenic claudication present; Acquired hypothyroidism 12/09/2024 Orders Only GENERIC EXTERNAL DATA DEPARTMENT Provider, Generic External Data 12/08/2024 1:45 PM EDT Office Visit [facility] [address] [place] [address] Mary Rod MD Unstable gait (Primary Dx); Type 2 diabetes mellitus with chronic kidney disease, without long-term current use of insulin, unspecified CKD stage (CMS/HCC); Frequent falls; Metabolic dysfunction-associated steatotic liver disease (MASLD); Stage 3a chronic kidney disease (CMS/HCC); Left foot pain; Encounter for immunization 12/08/2024 Travel 12/08/2024 Refill [facility] [address] [place] [address] Mary Rod MD Spinal stenosis of lumbar region, unspecified whether neurogenic claudication present; Type 2 diabetes mellitus with chronic kidney disease, without long-term current use of insulin, unspecified CKD stage ([facility]/HCC) 12/07/2024 Telephone [facility] [address] [place] [phone] Mary Rod MD chart prep 12/02/2024 Orders Only GENERIC EXTERNAL DATA DEPARTMENT Provider, Generic External Data 12/02/2024 Telephone [facility] [address] [place] [address] Mary Rod MD Nurse Triage 11/30/2024 Patient Outreach [facility] [address] [place] [address] Mary Rod MD Pre-visit Planning (Pre visit planning LVM ) 2024 Refill [facility] [address] [place] [address] Mary Rod MD Acquired hypothyroidism 11/11/2024 Results Follow-Up [facility] [address] [place] [address] Frank Anthony MD XR Wrist 3+ Views Left 11/11/2024 Orders Only GENERIC EXTERNAL DATA DEPARTMENT Provider, Generic External Data 11/10/2024 10:30 AM EDT Office Visit [facility] [address] [place] [address] Tonya Brennan, OD 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, without long-term current use of insulin ([facility]) (Primary Dx); Macular hole of left eye; Visual field defect; Dry eyes, bilateral 11/10/2024 9:40 AM EDT Office Visit [facility] [address] [address] Frank Anthony MD Left wrist pain (Primary Dx) 11/10/2024 Travel from Last 3 Months Immunizations Immunization Administration Dates Next Due Diphtheria antitoxin 04/22/2004 HPV, Quadrivalent 05/16/2009,01/31/2008,07/28/19 07 Hep B, adult 12/08/2024 Influenza High-dose Quadriva lent Preservative Free 03/18/2023,03/10/2022,03/06/2020 [...] seasonal, injecta ble, preservative free 04/05/2012 Novel [id number] 05/14/2016 Pfizer Covid-19 Vaccine 12+ 06/18/2023 Pneumococcal [...] housing situation today? I have luisa sascha 01/07/[address] you li [...] Sign Reading Time Taken Comments Blood Pressure 128/52 12/08/2024 1:37 PM EDT Pulse 84 12/08/2024 1:37 PM EDT Temperature 36.4 C (97.6 F) 12/08/2024 1:37 PM EDT Respiratory Rate 16 12/08/2024 1:37 PM EDT Oxygen Saturation 97% 12/08/2024 1:37 PM EDT Inhaled Oxygen Concentration - - Weight 64.2 kg (141 lb 9.6 oz) 12/08/2024 1:37 P M EDT Height 154.9 cm (5' 1 ) 12/08/2024 1:37 PM EDT Body Mass Index 26.76 12/08/2024 1:37 PM EDT Plan of Treatment Upcoming Encounters Date Type Department Care Team (Late st Contact Info) Description 03/10/2025 9:45 AM EDT Office Visit [facility] [address] [place] [address] Mary Rod MD [address] [place] [address] 05/15/2025 9:30 AM EST Office Visit [facility] [address] [place] [address] Tonya Brennan, OD [address] [place] [address] Health Maintenance Due Date Last Done Comments CT Colonography 1950 FIT DNA/Cologuard 1950 FIT 1950 FOBT 1950 Sigmoidoscopy 1950 Diabetes: Foot Exam 11/14/1961 Alcohol/Substance Use Screening 1963 Hepatitis A Vaccines (1 of 2 - Risk 2-dose series) 11/14/1970 COVID-19 Vaccine ( season) 2024 06/18/2023, 03/21/2022, 10/08/2021, Additional history exists Hepatitis B Vaccines (2 of 3 - Risk 3-dose series) 01/05/2025 12/08/2024 Depression Screening 01/06/2025 01/07/2024, 01/07/20 24 SDOH Screening 01/06/2025 01/07/2024 Mammogram 01/08/2025 01/08/2023, 09/13, 09/26/2021, Additional history exists Diabetes: Hemoglobin A1C 02/09/2025 025, 01/07/2024, 07/20/2023, Additional history exists Influenza Vaccine (#1) 2025 , 03/18/2023, 03/10/2022, Additional history exists Eye Exam 11/10/2025 11/10/2024, 10/14, 11/10/2024, Additional history exists Tobacco Screening 12/08/2025 12/08/2024 Lipid Panel 12/09/2025 12/09/2024, 11/13, 04/19/2021, Additional history exists DTaP/Tdap/Td Vaccines (2 - Td or Tdap) [...] Aged 60 years or older Completed 07/20/2023 Hepatitis C Screening Completed 09/30/2024 HIB Vaccines Aged Out No longer eligi ble based on patient's age to complete this topic IPV Vaccines Aged Out No longer eligi ble based on patient's age to complete this topic Meningococcal B Vaccine Aged Out No l onger eligible based on patient's age to complete [...] to treatment regimen General Giovany Dixon PharmD Procedures Procedure Name Priority Date/Time Associated Diagnosis Comments URINALYSIS, COMPLETE, WITH REFLEX TO CULTURE Routine 12/09/2024 8:53 AM EDT ALBUMIN, RANDOM URINE W/CREATININE Routine 12/09/2024 8:53 AM EDT Type 2 diabetes mellitus with chronic kidney disease, without long-term current use of insulin, unspecified CKD stage (CMS/HCC) LIPID PANEL, STANDARD Routine 12/09/2024 8:53 AM EDT Type 2 diabetes mellitus with chronic kidney disease, without long-term current use of insulin, unspecified CKD stage (CMS/HCC) POCT GLUCOSE Routine 12/08/2024 1:38 PM EDT Type 2 diabetes mellitus with chronic kidney disease, without long-term current use of insulin, unspecified CKD stage (CMS/HCC) CT HEAD WO CONTRAST Routine 12/02/2024 2 :41 PM EDT URINALYSIS, COMPLETE, WITH REFLEX TO CULTURE Routine 12/02/2024 1:35 PM EDT GLUCOSE, WHOLE BLOOD Routine 12/02/2024 12:21 PM EDT C-REACTIVE PROTEIN Routine 12/02/2024 12 :09 PM EDT HIGH SENSITIVITY TROPONIN I Routine 12/02/2024 12:09 PM EDT MAGNESIUM Routine 12/02/2024 12:09 PM EDT COMPREHENSIVE METABOLIC PANEL Routine 12/02/2024 12:09 PM EDT CBC WITH AUTO DIFFERENTIAL Routine 12/02/2024 12:09 PM EDT US ABDOMEN COMPLETE WITH ELASTOGRAPHY Routine 11/23/2024 8:17 AM EDT MR MRCP Routine 11/14/2024 5:[address] ABDOMEN PELVIS W CONTRAST Routine 11/11/2024 1:09 PM EDT HIGH SENSITIVITY TROPONIN I Routine 11/11/2024 10:18 AM EDT LIPASE Routine 11/11/2024 10:18 AM EDT BASIC METABOLIC PANEL Routine 11/11/2024 10:18 AM EDT HEPATIC FUNCTION PANEL Routine 11/11/2024 10:18 AM EDT CBC WITH AUTO DIFFERENTIAL Routine 11/11/2024 10:18 AM EDT XR CHEST 1 VIEW Routine 11/11/2024 10:04 AM EDT OCT, RETINA - OU - BOTH EYES Routine 11/10/2024 11:44 AM EDT Macular hole of left eye 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, without long-term current use of insulin (CMS/HCC) XR WRIST 3+ VIEWS LEFT Routine 11/10/2024 11:19 AM EDT Left wrist pain HEPATITIS PANEL, GENERAL Routine 09/30/2024 8:24 AM EDT POCT GLYCATED HEMOGLOBIN, TOTAL Routine 08/12/2024 10:46 AM EST Type 2 diabetes mellitus with chronic kidney disease, without long-term current use of insulin, unspecified CKD stage (CMS/HCC) HM COLONOSCOPY Routine 02/16/2023 BI MAMMOGRAM SCREENING TOMOSYNTHESIS BILATERAL Routine 01/08/2023 12:20 PM EDT from Last 3 Months or Most Recently Relevant to Health Maintenance Results * (ABNORMAL) Urinalysis, Complete, with Reflex to Culture (12/09/2024 8:53 AM EDT) Only the most recent of2 resultswithin the time period is included. Color Urine Yellow [facility] Appearance Urine Clear [facility] PH 6.5 5.0 - 9.0 [facility] Glucose Urine UA >=1000(A) Negative mg/dL [facility] Urine Blood Small (1+)(A) Negative [facility] Specific [place] - Urine >=1.030(H) 1.005 - 1.025 [facility] Urine Protein 30 (1+)(A) Neg-Trace mg/dL [facility] Urine Ketones Negative Negative mg/dL [facility] Nitrite Urine Negative Negative [facility] Leukocyte Esterase Urine Negative Negative [facility] RBC Urine 6-10(A) 0 - 2 /HPF [facility] Urine WBC 0-5 0 - 5 /HPF [facility] Urine Squamous Epithelial Cell 6-10 0 - 2 /HPF [facility] Urine Bacteria None Seen None Seen [facility] Hyaline Casts, Urine 3-5 0 - 2 /LPF [facility] 12/09/2024 8:53 AM EDT 12/09/2024 10:54 AM EDT Narrative [facility] - 12/09/2024 11:36 AM EDT Urine, Clean Catch us Generic External Data Provider LAB URINE ORDERAB LES Final Result [facility] [address] [place] [phone] * (ABNORMAL) Albumin, Random Urine W/Creatinine (12/09/2024 8:53 AM EDT) Creatinine, Urine 123.50 mg/dL [facility] Microalbumin Urine 57.0 mg/L H [facility] Microalbum Creatinine Ratio Ur 46.1(H) <30 ug/mg cr [facility] Comment:Albumin/Creatinine R atio Reference Ranges: Normal: < 30 ug/mg creatinine Microalbuminuria: 30 - 300 ug/mg creatinineClinical Albuminuria: > 300 ug/mg creatinine Urine (Urine, Random) 12/09/2024 8:53 AM EDT 12/09/2024 10:54 AM EDT Mary Rivera MD LAB URINE ORDERABLES Final Result Performing Organization Address [facility] Co de Phone Number [facility] [address] [place] [phone] * Lipid Panel, Standard (12/09/2024 8:53 AM EDT) Triglycerides 72 <150 mg/dL [facility] Comment:Desirable Triglyceri de: less than 150 mg/dLBorderline High Triglyceride 150-199 mg/dLHigh Triglyceride: 200-499 mg/dLVery High Triglyceride: greater than or equal to 5OO mg/dL Cholesterol 113 <200 mg/dL [facility] Comment:Desirable Cholestero l: less than 200 mg/dLBorderline High Cholesterol: 200-239 mg/dLHigh Cholesterol: greater than 239 mg/dL LDL Cholesterol Calculated 51 <100 mg/dL [facility] Comment:Desirable LDL: less than 100 mg/dLNear Optimal/Above Optimal LDL: 110- 129 mg/dLBorderline High LDL: 130-159 mg/dLHigh LDL: 160-189 mg/dLVery High LDL: greater than or equal to 190 mg/dL HDL Cholesterol 48 >40 mg/dL [facility] Comment:Desirable HDL: great er than 40 mg/dL Note: This HDL assay may give artificially low results in patients with liver disease. Blood Venous blood specimen / Unknown 12/09/2024 8:53 AM EDT 12/09/2024 11:08 AM EDT us Mary Rivera MD LAB BLOOD ORDERABLES Final Result Performing Organization Address [facility]/ZIP Co de Phone Number [facility] [address] [place] [phone] * (ABNORMAL) POCT Glucose (12/08/2024 1:38 PM EDT) Glucose Blood, POC 351(A) 60 - 200 mg/dL QC Media Lot # [id number] Lot# Expiration Date Blood Capillary blood specimen / Unknown 12/08/2024 1:38 PM EDT Mary Rivera MD POINT OF CARE TEST EN TER/EDIT ORDERABLES Final Result * CT Head w/o Contrast (12/02/2024 2:41 PM EDT) Anatomical Region Laterality Modality Head, Neck Computed Tomogra phy 12/02/2024 2:41 PM EDT Narrative 12/02/2024 4:14 PM EDT [place] [address] CT Scan Report Signed Patient: Hayley Marc MR#: [id number] : 1950 Acct:[id number] Age/Sex: 74 / F ADM Date: 12/02/24 Loc: HO.ED Attending Dr: Ordering Physician: Rafael Paz MD Date of Service: 12/02/24 Procedure(s): CT head/brain wo IV con Accession Number(s): [id number] cc: Mary Rod MD; Rafael Paz MD Report Number: [id number]: Total DLP = 564.00 mGy-cm EXAMINATION: CT HEAD WITHOUT CONTRAST CLINICAL INFORMATION: Headache COMPARISON: 03/31/2024. TECHNIQUE: Contiguous axial imaging was performed from the skull base to vertex without intravenous administration of contrast. This CT examination was performed using dose optimization techniques as appropriate, variously including the following: *Automated exposure control *Adjustment of mA and/or kV according to patient size (this includes techniques or standardized protocols for targeted exams where dose is matched to indication/reason for exam; i.e. extremities or head) *Use of iterative reconstruction technique FINDINGS: There is no evidence of intracranial hemorrhage or extra-axial fluid collection. There is no mass effect, or edema. No CT evidence of acute territorial infarct. Ventricles, sulci, and cisterns are normal in size and configuration for patient age. No hydrocephalus. No midline shift. Negative hyperdense MCA sign. Negative insular ribbon sign. Patchy periventricular and deep white matter hypoattenuation is consistent with mild to moderate small vessel ischemic changes. Old lacunar type infarct right caudate head. Partial empty sella. Mild atheromatous calcification of the bilateral carotid siphons. Globes and orbital contents image normally. There are bilateral lens replacements. No extracranial soft tissue abnormalities. There is a right mastoid tip effusion. Small fluid level right sphenoid sinus. The paranasal sinuses, mastoid air cells, and tympanic cavities are otherwise normally aerated. No suspicious bony abnormalities. There are no acute fractures evident. CT/CT head/brain wo IV con IMPRESSION: 1. No acute intracranial abnormality. 2. Small air-fluid level right sphenoid sinus. 3. Right mastoid tip effusion. Electronically signed by: Chris Adames MD 12/02/2024 04:11 PM EDT RP Dictated By: Chris Adames MD Signed By: <Electronically signed by Chris Adames MD in OV> 12/02/24 1611 DD/ 1441 TD/TT: 12/02/24 1555 Computer Forensics Investigator: Procedure Note Donotuseinterpreter, Image - 12/02/[address] [place] [address] [address] Scan Report Signed Patient: Susan Marc#: [id number] : 1950cct:[id number] Age/Sex: 74 / FADM Date: 12/02/24 Loc: HO.ED Attending Dr: Ordering Physician: Rafael Paz MD Date of Service: 12/02/24 Procedure(s): CT head/brain wo IV con Accession Number(s): [id number] cc: Mary Rod MD; Rafael Paz MD Report Number: [id number]: Total DLP = 564.00 mGy-cm EXAMINATION: CT HEAD WITHOUT CONTRAST CLINICAL INFORMATION: Headache COMPARISON: 03/31/2024. TECHNIQUE: Contiguous axial imaging was performed from the skull base to vertex without intravenous administration of contrast. This CT examination was performed using dose optimization techniques as appropriate, variously including the following: *Automated exposure control *Adjustment of mA and/or kV according to patient size (this includes techniques or standardized protocols for targeted exams where dose is matched to indication/reason for exam; i.e. extremities or head) *Use of iterative reconstruction technique FINDINGS: There is no evidence of intracranial hemorrhage or extra-axial fluid collection. There is no mass effect, or edema. No CT evidence of acute territorial infarct. Ventricles, sulci, and cisterns are normal in size and configuration for patient age. No hydrocephalus. No midline shift. Negative hyperdense MCA sign. Negative insular ribbon sign. Patchy periventricular and deep white matter hypoattenuation is consistent with mild to moderate small vessel ischemic changes. Old lacunar type infarct right caudate head. Partial empty sella. Mild atheromatous calcification of the bilateral carotid siphons. Globes and orbital contents image normally. There are bilateral lens replacements. No extracranial soft tissue abnormalities. There is a right mastoid tip effusion. Small fluid level right sphenoid sinus. The paranasal sinuses, mastoid air cells, and tympanic cavities are otherwise normally aerated. No suspicious bony abnormalities. There are no acute fractures evident. CT/CT head/brain wo IV con IMPRESSION: 1. No acute intracranial abnormality. 2. Small air-fluid level right sphenoid sinus. 3. Right mastoid tip effusion. Electronically signed by: Chris Adames MD 12/02/2024 04:11 PM EDT Dictated By: Chris Adames MD Signed By: <Electronically signed by Chris Adames MD in OV> 12/02/24 1611 DD/ 1441 TD/TT: 12/02/24 1555 Computer Forensics Investigator: us [facility] External Provider IMG CT PROCEDURES Final Result * Glucose, Whole Blood (12/02/2024 12:21 PM EDT) Glucose, Whole Blood 78 60 - 115 mg/dL [facility] Comment:METER #: [id number] 12/02/2024 12:2 1 PM EDT 12/02/2024 12:24 PM EDT Generic External Data Provider LAB BLOOD ORDERAB LES Final Result Performing Organization Address [facility] Co de Phone Number [facility] [address] [place] [phone] * High Sensitivity Troponin I (12/02/2024 12:09 PM EDT) Only the most recent of2 resultswithin the time period is included. [facility] TROPONIN I HIGH SENSITIVITY <2.7 <3.5 - 17.0 ng/L [facility] Comment:The [place] high sens itivity Troponin-I results should beused in conjunction with other diagnostic information suchas ECG, clinical observations and information, and patientsymptoms to aid in the diagnosis of [place]. 12/02/2024 12:0 9 PM EDT 12/02/2024 12:12 PM EDT Generic External Data Provider LAB BLOOD ORDERAB LES Final Result Performing Organization Address [facility] Co de Phone Number [facility] [address] [place] [phone] * (ABNORMAL) CBC auto differential (12/02/2024 12:09 PM EDT) Only the most recent of2 resultswithin the time period is included. Pathologist [facility] White Blood Count 8.5 4.8 - 10.8 X10*3/uL [facility] Red Blood Count 3.88(L) 4.20 - 5.50 X10*6/uL [facility] Hemoglobin 12.1 12.0 - 16.0 g/dl [facility] Hematocrit 35.8(L) 37.0 - 47.0 % [facility] Mean Corpuscular Volume 92.3 80.0 - 98.0 fL [facility] Mean Corpuscular Hemoglobin 31.2 27.0 - 33.0 pg [facility] Mean Corpuscular HGB Conc 33.8 31.0 - 35.0 g/dl [facility] Red Cell Distribution Width 15.1 11.0 - 16.0 % [facility] Platelet Count 270 160 - 400 X10*3/uL [facility] Mean Platelet Volume 11.1 9.4 - 12.3 fL [facility] Neutrophils Percent Auto 64.4 45 - 73 % [facility] Imm Gran Pct Auto 0.2 0.0 - 0.4 % [facility] Lymphocytes Percent Auto 19.9(L) 20 - 40 % [facility] Monocytes Percent Auto 9.5 2 - 11 % [facility] Eosinophils Percent Auto 5.3(H) 0 - 4 % [facility] Basophils Percent Auto 0.7 0 - 2 % [facility] NRBC Pct Auto 0.0 0.0 - 0.2 /100WBC [facility] Neutrophils Absolute Auto 5.5 2.0 - 8.3 x10*3/uL [facility] Imm Gran Abs Auto 0.02 0.00 - 0.03 X10*3/uL [facility] Lymphocytes Absolute Auto 1.7 1.2 - 4.9 X10*3/uL [facility] Monocytes Absolute Auto 0.8 0.1 - 1.2 X10*3/uL [facility] Eosinophils Absolute Auto 0.5(H) 0.0 - 0.4 X10*3/uL [facility] Basophils Absolute Auto 0.1 0.0 - 0.2 X10*3/uL [facility] NRBC Abs Auto 0.000 0.0 - 0.012 X10*3/uL [facility] 12/02/2024 12:0 9 PM EDT 12/02/2024 12:12 PM EDT us Generic External Data Provider LAB BLOOD ORDERAB LES Final Result [facility] [address] [place] [phone] * C-reactive Protein (12/02/2024 12:09 PM EDT) Pathologist [facility] C Reactive Protein <0.10 < or = 0.50 mg/dL [facility] 12/02/2024 12:0 9 PM EDT 12/02/2024 12:12 PM EDT Generic External Data Provider LAB BLOOD ORDERAB LES Final Result Performing Organization Address [facility] Co de Phone Number [facility] [address] [place] [phone] * Magnesium (12/02/2024 12:09 PM EDT) Pathologist [facility] Magnesium 2.6 1.6 - 2.6 mg/dL [facility] 12/02/2024 12:0 9 PM EDT 12/02/2024 12:12 PM EDT [employer] External Data Provider LAB BLOOD ORDERAB LES Final Result Performing Organization Address [facility] Co de Phone Number [facility] [address] [place] [phone] * (ABNORMAL) Comprehensive Metabolic Panel (12/02/2024 12:09 PM EDT) Pathologist [facility] Sodium 140 135 - 145 mmol/L [facility] Potassium 4.9 3.3 - 5.1 mmol/L [facility] Chloride 110(H) 96 - 108 mmol/L [facility] Carbon Dioxide 25 22 - 29 mmol/L [facility] Anion Gap 10(L) 12 - 20 [facility] Urea Nitrogen (BUN) 13 9 - 16 mg/dL [facility] Creatinine, Serum 0.94 0.5 - 1.4 mg/dL [facility] Creatinine Clr Calc Pharmacy 44.5 [facility] Comment:Provided height and weight: 152.4 cm,64.2 kg.eGFR (calculated from the MDRD study equation) and eCrCl(calculated from the Cockcroft-Gault equation) are based ondifferent parameters and may not yield comparable results.If eCrCl result is absurd, please check patient'sheight/weight. Estimated Glomerular Filt Rate 58 [facility] Comment:Chronic Kidney Disea se: Estimated GFR < 60 mL/min/1.44k3Pjutuz Kidney Disease: Estimated GFR < 15 mL/min/1.73m2 Glucose 96 60 - 115 mg/dL [facility] Calcium 8.9 8.4 - 10.2 mg/dL [facility] Bilirubin, Total 0.5 0.0 - 1.0 mg/dL [facility] Aspartate Amino Transferase 329(H) 5 - 31 U/L [facility] Alanine Aminotransferase 285(H) 0 - 31 U/L [facility] Total Protein 6.5 6.5 - 8.0 g/dL [facility] Albumin Level 3.8 3.5 - 5.0 g/dL [facility] Alkaline Phosphatase 118(H) 39 - 117 U/L [facility] 12/02/2024 12:0 9 PM EDT 12/02/2024 12:12 PM EDT us Generic External Data Provider LAB BLOOD ORDERAB LES Final Result Performing Organization Address City/State/[facility] Co de Phone Number [facility] [address] [place] [phone] * US Abdomen Comp w elastography (11/23/2024 8:17 AM EDT) Anatomical Region Laterality Modality Abdomen Ultrasound 11/23/2024 8:17 AM EDT Narrative 11/23/2024 9:41 AM EDT [address] [address] Ultrasound Report Signed Patient: Hayley Marc MR#: [id number] : 1950 Acct:[id number] Age/Sex: 74 / F ADM Date: 11/23/24 Loc: HO.US Attending Dr: Charles Clemons MD Ordering Physician: Chrales Clemons MD Date of Service: 11/23/24 Procedure(s): US abdomen comp w elastography Accession Number(s): [id number] cc: Mary Rod MD; Aniya Barahona-C; Charles Clemons MD EXAMINATION: US ABDOMEN COMPLETE WITH LIVER ELASTOGRAPHY HISTORY: Elevated LFTs TECHNIQUE: Real-time grayscale ultrasound imaging of the abdomen was performed and images were reviewed. COMPARISON: Comparison is made with the prior examinations dated 02/18/2023 and 05/23/2022. FINDINGS: Liver: The right lobe of the liver measures 13.8 cm in size. The left lobe of the liver measures 7.5 cm in size. The liver demonstrates normal homogeneous echotexture. There is a calcification in the right lobe. No focal mass is identified. There is mild prominence of intrahepatic biliary radicles. There is normal hepatopedal flow in the portal vein. Ultrasound elastography of the liver was performed with 10 separate measurements of the liver parenchyma with the patient in the supine position. Measurements were obtained approximately 2 cm below Demetrice's capsule and perpendicular to the capsule. The median shear wave velocity is 1.54 m/s (previously 1.38 m/s). The interquartile range/median (IQR/median) is 0.15. Gallbladder and biliary tree: The gallbladder is surgically absent. The common bile duct is normal in caliber measuring 5 mm. Kidneys: The right kidney measures 10.3 cm in length and demonstrates an extrarenal pelvis. The left kidney measures 9.3 cm in length. The kidneys are unremarkable, without evidence of masses, hydronephrosis, or calculi. Pancreas: The pancreas is obscured by bowel gas. Spleen: The spleen is normal in size and contour, measuring 7.2 cm in length. Abdominal aorta and inferior vena cava: The visualized portions of the abdominal aorta and inferior vena cava are normal in caliber. There is no free fluid in the abdomen. US/US abdomen comp w elastography IMPRESSION: Status post cholecystectomy. Mild intrahepatic biliary ductal dilatation is likely related to prior cholecystectomy. The median shear wave velocity in the liver is 1.54 m/s, corresponding to a median liver stiffness of 7.1 kPa. The IQR/median value is 0.15. This is indicative of a poor quality data set, and the estimated liver stiffness may be unreliable. Findings are indicative of a low elastography value which rules out advanced chronic liver disease in asymptomatic patients. REFERENCE: Society of Radiologists in Ultrasound Liver Stiffness Thresholds (2020): LIVER STIFFNESS THRESHOLDS: *Shear wave velocity less than 1.3 m/s (Liver Stiffness equal or less than 5 kPa): High probability of being normal. *Shear wave velocity less than 1.7 m/s (Liver Stiffness less than 9 kPa): In the absence of other known clinical signs, rules out compensated advanced chronic liver disease. *Shear wave velocity between 1.7-2.1 m/s (Liver Stiffness 9-13 kPa): Suggestive of compensated advanced chronic liver disease but need further test for confirmation. *Shear wave velocity between 2.1-2.4 m/s (Liver Stiffness 13-17 kPa): Rules in compensated advanced chronic liver disease. *Shear wave velocity greater than 2.4 m/s (Liver Stiffness over 17 kPa): Suggestive of clinically significant portal hypertension. QUALITY OF DATA SET: SIGNIFICANT CHANGE FROM PRIOR EXAM: Significant change if liver stiffness measurement is 10% or greater from prior exam. OTHER CONSIDERATIONS: The stage of liver fibrosis may be overestimated in the setting of acute hepatitis, liver inflammation, elevated liver function tests, hepatic vascular congestion, obstructive cholestasis, non-fasting state, and infiltrative diseases such as amyloidosis and lymphoma. In some patients with NAFLD, the liver stiffness thresholds for compensated advanced chronic liver disease may be lower. In causes other than viral hepatitis and NAFLD, liver stiffness thresholds are not well established. Electronically signed by: Frank Andersen MD 11/23/2024 09:39 AM EDT Dictated By: Frank Andersen MD Signed By: <Electronically signed by Frank Andersen MD in OV> 11/23/24 0939 DD/ 6 TD/TT: 11/23/24 0832 Computer Forensics Investigator: Procedure Note Donotuseinterpreter, Image - 11/23/[address] [address] Ultrasound Report Signed Patient: Slade MarcSimeonR#: [id number] : 1950cct:[id number] Age/Sex: 74 / FADM Date: 11/23/24 Loc: HO.US Attending Dr: Charles Clemons MD Ordering Physician: Charles Clemons MD Date of Service: 11/23/24 Procedure(s): US abdomen comp w elastography Accession Number(s): [id number] cc: Mary Rod MD; JunSeptember-C; Charles Clemons MD EXAMINATION: US ABDOMEN COMPLETE WITH LIVER ELASTOGRAPHY HISTORY: Elevated LFTs TECHNIQUE: Real-time grayscale ultrasound imaging of the abdomen was performed and images were reviewed. COMPARISON: Comparison is made with the prior examinations dated 02/18/2023 and 05/23/2022. FINDINGS: Liver: The right lobe of the liver measures 13.8 cm in size. The left lobe of the liver measures 7.5 cm in size. The liver demonstrates normal homogeneous echotexture. There is a calcification in the right lobe. No focal mass is identified. There is mild prominence of intrahepatic biliary radicles. There is normal hepatopedal flow in the portal vein. Ultrasound elastography of the liver was performed with 10 separate measurements of the liver parenchyma with the patient in the supine position. Measurements were obtained approximately 2 cm below Demetrice's capsule and perpendicular to the capsule. The median shear wave velocity is 1.54 m/s (previously 1.38 m/s). The interquartile range/median (IQR/median) is 0.15. Gallbladder and biliary tree: The gallbladder is surgically absent. The common bile duct is normal in caliber measuring 5 mm. Kidneys: The right kidney measures 10.3 cm in length and demonstrates an extrarenal pelvis. The left kidney measures 9.3 cm in length. The kidneys are unremarkable, without evidence of masses, hydronephrosis, or calculi. Pancreas: The pancreas is obscured by bowel gas. Spleen: The spleen is normal in size and contour, measuring 7.2 cm in length. Abdominal aorta and inferior vena cava: The visualized portions of the abdominal aorta and inferior vena cava are normal in caliber. There is no free fluid in the abdomen. US/US abdomen comp w elastography IMPRESSION: Status post cholecystectomy. Mild intrahepatic biliary ductal dilatation is likely related to prior cholecystectomy. The median shear wave velocity in the liver is 1.54 m/s, corresponding to a median liver stiffness of 7.1 kPa. The IQR/median value is 0.15. This is indicative of a poor quality data set, and the estimated liver stiffness may be unreliable. Findings are indicative of a low elastography value which rules out advanced chronic liver disease in asymptomatic patients. REFERENCE: Society of Radiologists in Ultrasound Liver Stiffness Thresholds (2020): LIVER STIFFNESS THRESHOLDS: *Shear wave velocity less than 1.3 m/s (Liver Stiffness equal or less than 5 kPa): High probability of being normal. *Shear wave velocity less than 1.7 m/s (Liver Stiffness less than 9 kPa): In the absence of other known clinical signs, rules out compensated advanced chronic liver disease. *Shear wave velocity between 1.7-2.1 m/s (Liver Stiffness 9-13 kPa): Suggestive of compensated advanced chronic liver disease but need further test for confirmation. *Shear wave velocity between 2.1-2.4 m/s (Liver Stiffness 13-17 kPa): Rules in compensated advanced chronic liver disease. *Shear wave velocity greater than 2.4 m/s (Liver Stiffness over 17 kPa): Suggestive of clinically significant portal hypertension. QUALITY OF DATA SET: SIGNIFICANT CHANGE FROM PRIOR EXAM: Significant change if liver stiffness measurement is 10% or greater from prior exam. OTHER CONSIDERATIONS: The stage of liver fibrosis may be overestimated in the setting of acute hepatitis, liver inflammation, elevated liver function tests, hepatic vascular congestion, obstructive cholestasis, non-fasting state, and infiltrative diseases such as amyloidosis and lymphoma. In some patients with NAFLD, the liver stiffness thresholds for compensated advanced chronic liver disease may be lower. In causes other than viral hepatitis and NAFLD, liver stiffness thresholds are not well established. Electronically signed by: Frank Andersen MD 11/23/2024 09:39 AM EDT Dictated By: Frank Andersen MD Signed By: <Electronically signed by Frank Andersen MD in OV> 11/23/24 0939 DD/ 6 TD/TT: 11/23/24831 Computer Forensics Investigator: us [facility] External Provider IMG US PROCEDURES Final Result * MR MRCP (11/14/2024 5:19 PM EDT) Anatomical Region Laterality Modality Lower Extremities Left Magnetic Reson ance 11/14/2024 5:19 PM EDT Narrative 11/14/2024 5:20 PM EDT [address] [address] Magnetic Resonance Report Signed Patient: Hayley Marc MR#: [id number] : 1950 Acct:[id number] Age/Sex: 74 / F ADM Date: 11/11/24 Loc: .S3 346-[address]: Neetu Esquivel MD Ordering Physician: Neetu Esquivel MD Date of Service: 11/14/24 Procedure(s): MR MRCP Accession Number(s): [id number] cc: Neetu Esquivel MD; Mary Rod MD CLINICAL HISTORY: Dilated CBD MR of the abdomen without contrast. MRCP was also performed. No comparison imaging. Findings: There is motion artifact. Question previous gastric bypass. There is prominent stool in the visualized portion of the colon. Suspect previous cholecystectomy. The common bile duct measures 10 mm. No choledocholithiasis is identified. The pancreatic duct is nondilated. There are several small cystic lesions in the pancreas measuring up to 3 mm. There is diffuse pancreatic atrophy. Impression: Suspect previous cholecystectomy. Diameter of the common bile duct with is within normal limits in the setting. Small cystic lesions in the pancreas are likely incidental. If clinically warranted consider comparison to previous or follow-up MR to assess for long-term stability. This document has been electronically signed by: Gonzalo Dougherty MD on 11/14/2024 17:19:50 Dictated By: Rober Ovalle MD Signed By: <Electronically signed by Rober Ovalle MD in OV> 11/14/24 1720 DD/ 171 TD/TT: 11/14/241718 Computer Forensics Investigator: Procedure Note Donotuseinterpreter, Image - 11/14/[address] [address] Magnetic Resonance Report Signed Patient: Slade MarcaMR#: [id number] : 1950cct:[id number] Age/Sex: 74 / FADM Date: 11/11/24 Loc: HO.S3 346-[address]: Neetu Esquivel MD Ordering Physician: Neetu Esquivel MD Date of Service: 11/14/24 Procedure(s): MR MRCP Accession Number(s): [id number] cc: Neetu Esquivel MD; Mary Rod MD CLINICAL HISTORY: Dilated CBD MR of the abdomen without contrast. MRCP was also performed. No comparison imaging. Findings: There is motion artifact. Question previous gastric bypass. There is prominent stool in the visualized portion of the colon. Suspect previous cholecystectomy. The common bile duct measures 10 mm. No choledocholithiasis is identified. The pancreatic duct is nondilated. There are several small cystic lesions in the pancreas measuring up to 3 mm. There is diffuse pancreatic atrophy. Impression: Suspect previous cholecystectomy. Diameter of the common bile duct with is within normal limits in the setting. Small cystic lesions in the pancreas are likely incidental. If clinically warranted consider comparison to previous or follow-up MR to assess for long-term stability. This document has been electronically signed by: Gonzalo Dougherty MD on 11/14/2024 17:19:50 Dictated By: Rober Ovalle MD Signed By: <Electronically signed by Rober Ovalle MD in OV> 11/14/24 1720 DD/ 1719 TD/TT: 11/14/24 1719 Computer Forensics Investigator: [facility] External Provider IMG MRI PROCEDURES Edited Result - Final * CT Abdomen Pelvis w/ Contrast (11/11/2024 1:09 PM EDT) Anatomical Region Laterality Modality Body, Pelvis, Abdomen Computed T omography 11/11/2024 1:09 PM EDT Narrative 11/11/2024 1:49 PM EDT [place] [address] CT Scan Report Signed Patient: Hayley Marc MR#: [id number] : 1950 Acct:[id number] Age/Sex: 73 / F ADM Date: 11/11/24 Loc: HO.ED Attending Dr: Ordering Physician: Zuly Almonte DO Date of Service: 11/11/24 Procedure(s): CT abdomen pelvis w IV con Accession Number(s): [id number] cc: Mary Rod MD; Zuly Almonte DO Report Number: [id number]: Total DLP = 499.00 mGy-cm EXAMINATION: CT ABDOMEN PELVIS WITH IV CONTRAST HISTORY: abdominal pain, constipation, vomiting hx of gastric bypass COMPARISON: Comparison is made with the prior examination dated 06/26/2021. TECHNIQUE: CT scan of the abdomen and pelvis was performed following administration of 85 mL Omnipaque 350 using standard departmental protocol. Coronal and sagittal reformatted images were generated and reviewed. Oral contrast material was not administered at the request of the referring physician. This CT exam was performed with one or more of the following dose reduction techniques: automated exposure control, adjustment of the mA and/or kV according to patient size, use of iterative reconstruction technique. DLP: 499 mGy-cm FINDINGS: LOWER CHEST: There is dependent atelectasis at both lung bases. There is no pleural effusion. CARDIOVASCULATURE: The heart is normal in size. There is no pericardial effusion. LIVER: The liver is normal in size and contour. No liver mass is identified. The hepatic and portal veins are patent. GALLBLADDER / BILE DUCTS: The patient is status post cholecystectomy. Again seen is mild intra and extrahepatic biliary ductal dilatation without significant change. SPLEEN: The spleen is normal in size. No focal splenic lesion is identified. PANCREAS: The pancreas is atrophic. ADRENAL GLANDS: Within normal limits. KIDNEYS/RETROPERITONEUM: No renal calculi are identified. There is no hydronephrosis. No renal masses are identified. LYMPH NODES: No abdominal or pelvic lymphadenopathy. VASCULATURE: The abdominal aorta demonstrates atherosclerotic calcification, but is normal in caliber. MESENTERY/PERITONEUM: No free fluid. No masses. There is no free intraperitoneal gas. STOMACH: There is a small hiatal hernia. The patient is status post gastric bypass procedure. SMALL BOWEL: There is a small bowel anastomosis in the left mid abdomen. Abnormal focal wall thickening is seen in this region (series 3, image 32 and series 5, image 31). There is no evidence of small bowel obstruction. COLON: There is a large amount of stool throughout the colon. APPENDIX: Normal. URINARY BLADDER/PELVIC ORGANS: The urinary bladder is unremarkable. There are vascular calcifications of the uterus. BONES / SOFT TISSUES: No suspicious bony or soft tissue abnormalities. CT/CT abdomen pelvis w IV con IMPRESSION: 1. Abnormal small bowel wall thickening adjacent to an anastomosis in the left midabdomen. Neoplasm in this region is not excluded. 2. Large amount of stool throughout the colon. Electronically signed by: Frank Andersen MD 11/11/2024 01:46 PM EDT RP Dictated By: Frank Andersen MD Signed By: <Electronically signed by Frank Andersen MD in OV> 11/11/24 1346 DD/ 1309 TD/TT: 11/11/24 1326 Computer Forensics Investigator: Procedure Note Donotuseinterpreter, Image - 11/11/[address] [place] [address] [address] Scan Report Signed Patient: Susan Marc#: [id number] : 1950cct:[id number] Age/Sex: 73 / FADM Date: 11/11/24 Loc: HO.ED Attending Dr: Ordering Physician: Zuly Almonte DO Date of Service: 11/11/24 Procedure(s): CT abdomen pelvis w IV con Accession Number(s): [id number] cc: Mary Rod MD; Zuly Almonte DO Report Number: [id number]: Total DLP = 499.00 mGy-cm EXAMINATION: CT ABDOMEN PELVIS WITH IV CONTRAST HISTORY: abdominal pain, constipation, vomiting hx of gastric bypass COMPARISON: Comparison is made with the prior examination dated 06/26/2021. TECHNIQUE: CT scan of the abdomen and pelvis was performed following administration of 85 mL Omnipaque 350 using standard departmental protocol. Coronal and sagittal reformatted images were generated and reviewed. Oral contrast material was not administered at the request of the referring physician. This CT exam was performed with one or more of the following dose reduction techniques: automated exposure control, adjustment of the mA and/or kV according to patient size, use of iterative reconstruction technique. DLP: 499 mGy-cm FINDINGS: LOWER CHEST: There is dependent atelectasis at both lung bases. There is no pleural effusion. CARDIOVASCULATURE: The heart is normal in size. There is no pericardial effusion. LIVER: The liver is normal in size and contour. No liver mass is identified. The hepatic and portal veins are patent. GALLBLADDER / BILE DUCTS: The patient is status post cholecystectomy. Again seen is mild intra and extrahepatic biliary ductal dilatation without significant change. SPLEEN: The spleen is normal in size. No focal splenic lesion is identified. PANCREAS: The pancreas is atrophic. ADRENAL GLANDS: Within normal limits. KIDNEYS/RETROPERITONEUM: No renal calculi are identified. There is no hydronephrosis. No renal masses are identified. LYMPH NODES: No abdominal or pelvic lymphadenopathy. VASCULATURE: The abdominal aorta demonstrates atherosclerotic calcification, but is normal in caliber. MESENTERY/PERITONEUM: No free fluid. No masses. There is no free intraperitoneal gas. STOMACH: There is a small hiatal hernia. The patient is status post gastric bypass procedure. SMALL BOWEL: There is a small bowel anastomosis in the left mid abdomen. Abnormal focal wall thickening is seen in this region (series 3, image 32 and series 5, image 31). There is no evidence of small bowel obstruction. COLON: There is a large amount of stool throughout the colon. APPENDIX: Normal. URINARY BLADDER/PELVIC ORGANS: The urinary bladder is unremarkable. There are vascular calcifications of the uterus. BONES / SOFT TISSUES: No suspicious bony or soft tissue abnormalities. CT/CT abdomen pelvis w IV con IMPRESSION: 1. Abnormal small bowel wall thickening adjacent to an anastomosis in the left midabdomen. Neoplasm in this region is not excluded. 2. Large amount of stool throughout the colon. Electronically signed by: Frank Andersen MD 11/11/2024 01:46 PM EDT Dictated By: Frank Andersen MD Signed By: <Electronically signed by Frank Andersen MD in OV> 11/11/24 1346 DD/ 1309 TD/TT: 11/11/24 1326 Computer Forensics Investigator: [facility] External Provider IMG CT PROCEDURES Edited Result - Final * Lipase (11/11/2024 10:18 AM EDT) Lipase 9 8 - 78 U/L [facility] 11/11/2024 10:1 8 AM EDT 11/11/2024 10:41 AM EDT Generic External Data Provider LAB BLOOD ORDERAB LES Final Result Performing Organization Address [facility]/ZIP Co de Phone Number [facility] [address] [place] [phone] * (ABNORMAL) Hepatic Function Panel (11/11/2024 10:18 AM EDT) Bilirubin, Total 0.5 0.0 - 1.0 mg/dL [facility] Bilirubin, Direct 0.2 0.0 - 0.5 mg/dL [facility] Aspartate Amino Transferase 550(H) 5 - 31 U/L [facility] Alanine Aminotransferase 102(H) 0 - 31 U/L [facility] Total Protein 6.6 6.5 - 8.0 g/dL [facility] Albumin Level 3.9 3.5 - 5.0 g/dL [facility] Alkaline Phosphatase 146(H) 39 - 117 U/L [facility] 11/11/2024 10:1 8 AM EDT 11/11/2024 10:41 AM EDT Generic External Data Provider LAB BLOOD ORDERAB LES Final Result Performing Organization Address [facility]/ZIP Co de Phone Number [facility] [address] [place] [phone] * (ABNORMAL) Basic Metabolic Panel (11/11/2024 10:18 AM EDT) Sodium 140 135 - 145 mmol/L [facility] Potassium 3.6 3.3 - 5.1 mmol/L [facility] Chloride 109(H) 96 - 108 mmol/L [facility] Carbon Dioxide 22 22 - 29 mmol/L [facility] Anion Gap 13 12 - 20 [facility] Urea Nitrogen (BUN) 15 9 - 16 mg/dL [facility] Creatinine, Serum 0.86 0.5 - 1.4 mg/dL [facility] Creatinine Clr Calc Pharmacy 47.4 [facility] Comment:Provided height and weight: 152.4 cm,58.967 kg.eGFR (calculated from the MDRD study equation) and eCrCl(calculated from the Cockcroft-Gault equation) are based ondifferent parameters and may not yield comparable results.If eCrCl result is absurd, please check patient'sheight/weight. Estimated Glomerular Filt Rate >60 [facility] Comment:Chronic Kidney Disea se: Estimated GFR < 60 mL/min/1.42t4Bpeyyv Kidney Disease: Estimated GFR < 15 mL/min/1.73m2 Glucose 166(H) 60 - 115 mg/dL [facility] Calcium 9.1 8.4 - 10.2 mg/dL [facility] 11/11/2024 10:1 8 AM EDT 11/11/2024 10:41 AM EDT us Generic External Data Provider LAB BLOOD ORDERAB LES Final Result [facility] [address] [place] [phone] * XR Chest 1 View (11/11/2024 10:04 AM EDT) Anatomical Region Laterality Modality Chest Radiographic Yoli ging 11/11/2024 10:0 4 AM EDT Narrative 11/11/2024 10:38 AM EDT [address] [address] XRay Report Signed Patient: Hayley Marc MR#: [id number] : 1950 Acct:[id number] Age/Sex: 73 / F ADM Date: 11/11/24 Loc: HO.ED Attending Dr: Ordering Physician: Generic ED Physician Date of Service: 11/11/24 Procedure(s): XR chest 1V Accession Number(s): [id number] cc: Mary Rod MD; Generic ED Physician EXAMINATION: XR CHEST CLINICAL INFORMATION: chest pain COMPARISON: 03/31/2024. TECHNIQUE: Frontal view of the chest was obtained. FINDINGS: The cardiac, hilar, and mediastinal contours are normal. Aortic mural calcifications. The lungs are clear bilaterally. No pneumothorax or effusion. No focal osseous or soft tissue abnormality. Mild spinal degenerative changes. XR/XR chest 1V IMPRESSION: No active pulmonary disease. Electronically signed by: Chris Adames MD 11/11/2024 10:35 AM EDT Dictated By: Chris Adames MD Signed By: <Electronically signed by Chris Adames MD in OV> 11/11/24 1035 DD/ 1004 TD/TT: 11/11/24 1027 Computer Forensics Investigator: Procedure Note Donotuseinterpreter, Image - 11/11/2024 [place] [address] XRay Report Signed Patient: Josselin MarcR#: [id number] : 1950cct:[id number] Age/Sex: 73 / FADM Date: 11/11/24 Loc: HO.ED Attending Dr: Ordering Physician: Generic ED Physician Date of Service: 11/11/24 Procedure(s): XR chest 1V Accession Number(s): [id number] cc: Mary Rod MD; Generic ED Physician EXAMINATION: XR CHEST CLINICAL INFORMATION: chest pain COMPARISON: 03/31/2024. TECHNIQUE: Frontal view of the chest was obtained. FINDINGS: The cardiac, hilar, and mediastinal contours are normal. Aortic mural calcifications. The lungs are clear bilaterally. No pneumothorax or effusion. No focal osseous or soft tissue abnormality. Mild spinal degenerative changes. XR/XR chest 1V IMPRESSION: No active pulmonary disease. Electronically signed by: Chris Adames MD 11/11/2024 10:35 AM EDT RP Dictated By: Chris Adames MD Signed By: <Electronically signed by Chris Adames MD in OV> 11/11/24 1035 DD/ 1004 TD/TT: 11/11/24 1027 Computer Forensics Investigator: [facility] External Provider IMG XR PROCEDURES Edited Result - Final * OCT, Retina - OU - Both Eyes (11/10/2024 11:44 AM EDT) Narrative Tonya Brennan, OD - 11/10/2024 11:44 AM EDT OCT RETINA INTERPRETATION Optical Coherence Tomography Interpretation Report Reliability: OD: SS 67 - good quality image OS: SS 69 - good quality image Measurements: Central subfoveal thickness OD: 260 microns OS: 254 microns Test findings: OD: Grid laser scarring temporal macula, scattered small hemes/MAs with some small cystic pockets temporal to fovea - increased temporal perifoveal thickness compared to last (276um today compared to 240um at last) Abnormal foveal contour - posterior hyaloid not visible in scan but possible some VMT present in temporal fovea OS: Lamellar hole, (+) epiretinal membrane (ERM), extra-macular atrophy associated with laser page, (-) IRF/subretinal fluid (SRF). Grossly stable to last. Impression and Plan: Type 2 diabetes mellitus (DM) with stable PDR both eyes (OU). Lamellar hole left eye (OS). RTC in 6 months for f/u Tonya Brennan OD OPHTH TOMOGRAPHY Final Result * XR Wrist 3+ Views Left (11/10/2024 11:19 AM EDT) Anatomical Region Laterality Modality Upper Extremities, Wrist Left Radiogr aphic Imaging 11/10/2024 11:1 9 AM EDT Narrative 11/10/2024 11:36 AM EDT [address] [address] XRay Report Signed Patient: Hayley Marc MR#: [id number] : 1950 Acct:[id number] Age/Sex: 73 / F ADM Date: 11/10/24 [facility]: Frank Anthony MD Ordering Physician: Frank Anthony MD Date of Service: 11/10/24 Procedure(s): XR wrist LT min 3V Accession Number(s): [id number] cc: Mary Rod MD; Frank Anthony MD EXAMINATION: XR WRIST, LEFT CLINICAL INFORMATION: Pain in left wrist COMPARISON: None available. TECHNIQUE: PA, lateral, and oblique views of the left wrist. FINDINGS: Redemonstration of volar plate and screw fixation of the distal radius, with fixation screws spanning distal radial fractures which appear healing. Stable alignment, which is anatomical. Hardware appears intact and well seated without complication. Ulnar styloid avulsion fracture, also healing. Soft tissue swelling has improved. Mild dorsal swelling persists. Vascular calcifications diffusely. XR/XR wrist LT min 3V IMPRESSION: 1. Redemonstration of distal radial ORIF with stabilization plate and fixation screws spanning distal radial fractures. There is healing appearance of the fractures in stable anatomical alignment. 2. Redemonstration of ulnar styloid avulsion fracture, also with appearance consistent with healing. 3. Mild residual dorsal soft tissue swelling. Electronically signed by: Chris Adames MD 11/10/2024 11:32 AM EDT Dictated By: Chris Adames MD Signed By: <Electronically signed by Chris Adames MD in OV> 11/10/24 1132 DD/ 1119 TD/TT: 11/10/24 1124 Computer Forensics Investigator: Procedure Note Donotuseinterpreter, Image - 11/10/[address] [address] XRay Report Signed Patient: Slade MarcaMR#: [id number] : 1950cct:[id number] Age/Sex: 73 / FADM Date: 11/10/24 [facility]: Frank Anthony MD Ordering Physician: Frank Anthony MD Date of Service: 11/10/24 Procedure(s): XR wrist LT min 3V Accession Number(s): [id number] cc: Mary Rod MD; Frank Anthony MD EXAMINATION: XR WRIST, LEFT CLINICAL INFORMATION: Pain in left wrist COMPARISON: None available. TECHNIQUE: PA, lateral, and oblique views of the left wrist. FINDINGS: Redemonstration of volar plate and screw fixation of the distal radius, with fixation screws spanning distal radial fractures which appear healing. Stable alignment, which is anatomical. Hardware appears intact and well seated without complication. Ulnar styloid avulsion fracture, also healing. Soft tissue swelling has improved. Mild dorsal swelling persists. Vascular calcifications diffusely. XR/XR wrist LT min 3V IMPRESSION: 1. Redemonstration of distal radial ORIF with stabilization plate and fixation screws spanning distal radial fractures. There is healing appearance of the fractures in stable anatomical alignment. 2. Redemonstration of ulnar styloid avulsion fracture, also with appearance consistent with healing. 3. Mild residual dorsal soft tissue swelling. Electronically signed by: Chris Adames MD 11/10/2024 11:32 AM EDT Dictated By: Chris Adames MD Signed By: <Electronically signed by Chris Adames MD in OV> 11/10/24 1132 DD/ 1119 TD/TT: 11/10/24 1124 Computer Forensics Investigator: Frank Anthony MD IMG XR PROCEDURES Final Result * Hepatitis Panel, General (09/30/2024 8:24 AM EDT) Hepatitis A IgM Nonreactive Nonreactive [facility] Comment:IgM antibodies to LAZ[place]O V not detected; does not exclude earlyacute or recovered HAV infection. ~Hepatitis B Surface Antibody NONREACTIVE Nonreactive [facility] Comment:Nonreactive: < 8.00 mIU/mL Hepatitis B Core Antibody Nonreactive Nonreactive [facility] Hepatitis C Antibody Nonreactive Nonreactive [facility] Comment:Antibodies to HCV no t detected; does not exclude early acuteHCV infection. Hepatitis B Surface Ag Negative Negative [facility] 09/30/2024 8:24 AM EDT 09/30/2024 8:24 AM EDT Generic External Data Provider LAB BLOOD ORDERAB LES Final Result [facility] [address] [place] [phone] * (ABNORMAL) POCT HGB A1C (08/12/2024 10:46 AM EST) Hemoglobin A1C 6.2(A) 4.0 - 6.0 % QC Media Lot # [id number] Lot# Expiration Date Blood 08/12/2024 10:4 6 AM EST Mary Rivera MD POINT OF CARE TEST EN TER/EDIT ORDERABLES Final Result * Hm Colonoscopy (02/16/2023) Historical Provider HEALTH MAINTENANCE Final Result * BI Mammogram Screening Tomosynthesis Bilateral (01/08/2023 12:20 PM EDT) Anatomical Region Laterality Modality Breast Bilateral Mammography 01/08/2023 12:2 0 PM EDT Narrative 01/30/2023 10:10 AM EDT [facility] [address] [place] [address] Mammography Report Signed Patient: Hayley Marc MR#: [id number] : 1950 Acct:[id number] Age/Sex: 72 / F ADM Date: 01/08/23 Loc: HO.MAMMO Attending Dr: Mary Rivera MD Ordering Physician: Mary Rod MD Results: Date of Service: 01/08/23 Follow Up: Procedure(s): MM tomosynthesis screening BI Accession Number(s): [id number] cc: Mary Rod MD EXAMINATION: MM SCREENING [...] in OV> 01/30/23 1007 DD/ 1220 TD/TT: Computer Forensics Investigator: Procedure Note Donotuseinterpreter, Image - 01/30/2023 [place] [facility] [address] [place] [address] Mammography Report Signed Patient: Susan Marc#: [id number] : 2Acct:[id number] Age/Sex: 72 / FADM Date: 01/08/23 Loc: HO.MAMMO Attending Dr: Mary Rivera MD Ordering Physician: Mary Rod MDResults: Date of Service: 01/08/23Follow Up: Procedure(s): MM tomosynthesis screening BI Accession Number(s): [id number] cc: Mary Rod MD EXAMINATION: MM SCREENING [...] in OV> 01/30/23 1007 DD/ 1220 TD/TT: Computer Forensics Investigator: Mary Rivera MD IMG BI PROCEDURES [place]eter Result - Final from Last 3 Months or Most Recently Relevant to Health Maintenance Insurance [facility] (O D-SNP) [place] [id number] Care Teams Plastic Tile Setter Relationship Specialty Start Date End Date Mary Rod MD [address] [place] [phone] PCP - General Family Medicine 02/07/22
--- OUTSIDE RECORDS SUMMARY | 2025-02-07 10:14 | XMS_ITS | Patient Health Record ---
Author Organization [facility] Address [address] [place] [address] Care Team Providers Care Dinkey Press Operator Name Role Phone Rogelio TOWNSEND, Laurent Primary Care Provider Frank Hernandez Unavailable [phone] Charles Clemons Unavailable Unavailable Reason For Referral [...] Manage Prod Active Effexor XR Active Calcitonin ([place]) Active Fluticasone Propionate Active Colace 100 MG [...] Problem Status W/U Status Risk Notes Problem [id number] Slow transit constipation (K59.01) Active confirmed Plan Of Treatment Future Test Test Name Order Date UPPER GI ENDOSCOPY 12/01/2012 COLONOSCOPY 12/01/2012 Insurance Providers Payer Name Payer Address Payer Phone Subscriber Number Group Number Insured Name Patient Relationship to Insured Coverage Start Date Coverage End Date [facility] [address] [place] [phone] [id number] AMARILIS ENRIQUEZ Self - patient is the insured MEDICA[employer] OF [employer] [address] [place] [address] [id number] AMARILIS ENRIQUEZ Self - patient is the insured Medical (General) History Medical History History ICD Code NIDDM hypertension Denies MT,CVA,renal disease Colonoscopy in 08/2007 at [facility] C with Dr. Howe-1 tubular adenoma removed, but poor prep; F/U colonoscopy in 05/2008 at [facility] [place] was negative and with an excellent prep as per the report asthma/bronchitis Depression Hypothyroidism hyperlipidemia GERD 02/2013-neg colonoscopy except diverticul osis and internal hemorrhoids 02/2013-EGD with a small HH and anatomy c /w her gastric bypass 04/2013 nd 12/2014-neg CT of abd/pelvis Chronic constipation Surgical History Surgery Date(Month/Year) cataracts gastric [id number] [facility] [place]-lost 100 # CCY Shoulder appendectomy varicose vein stripping
--- OUTSIDE RECORDS SUMMARY | 2025-02-07 10:14 | XMS_ITS | Clinical Summary ---
Author Organization [facility] Address [address] [address] Care Team Providers Care Contract Designer Name Role Phone Natalee Rooney MD Primary Care Provider [phone] Allergies Active Allergy Reactions Criticality Noted Date [...] Quadrival ent, Adjuvanted 03/04/2021 Influenza, Injectable, Madin Winston Canine Kidney, Preservative Free 08/23/2015 Influenza, Quadrivalent, [...] Visit [facility] [address] [place] [phone] Rober Acharya MD [address] [facility] [address] [place] [address] Health Maintenance Due Date Last Done Comments [...] patient's age to complete this topic Insurance [facility] ([id number]) [facility] ([id number]) Care Teams Contract Designer Relationship Specialty Start Date End Date Natalee Rooney MD PCP - General Family Medicine 02/05/21
--- OUTSIDE RECORDS SUMMARY | 2025-02-07 10:14 | XMS_ITS | Encounter Summary ---
Author Organization [employer] Address [address] [facility] [address] [place] [address] Care Team Providers Care Accounting Software Specialist Name Role Phone Mary Rod MD Primary Care Provide r Reason for Visit * Reason Comments Med Refill Encounter Details Date Type Department Care Team (Late st Contact Info) Description 04/13/2023 Refill [facility] [address] [place], [place] [phone] Yara Tompkins MD [address] [place], [place] [phone] Social History Tobacco Use Types Packs/Day Years [...] Description 03/10/2025 9:45 AM EDT Office Visit [facility] [address] [place] [address] Mary Rod MD [address] [place] [address] 05/15/2025 9:30 AM EST Office Visit [facility] [address] [place] [address] Tarka, Tonya, OD [address] [place] [address] documented as of this encounter Goals Goal [...] documented as of this encounter Care Teams Accounting Software Specialist Relationship Specialty Start Date End Date Mary Rod MD [address] [place] [address] PCP - General Family Medicine 02/07/22 [place] MCCURDYA 11/16/24 01/15/25 documented as of this encounter
== END 2025-02-07 10:32 | disposition home or self-care (01) ==
LOC: HO.HGI 09:36
PROVIDERS: PCP Internal Medicine; Visit Provider Nurse Practitioner
DX: R10.31 Right lower quadrant pain (principal); E11.9 Type 2 diabetes mellitus without complications; R74.01 Elevation of levels of liver transaminase levels; R60.0 Localized edema; R30.0 Dysuria; E03.9 Hypothyroidism, unspecified; Z79.01 Long term (current) use of anticoagulants; K28.9 Gastrojejunal ulcer, unspecified as acute or chronic, without hemorrhage or perforation; R29.6 Repeated falls
CPT/HCPCS: 99214

== ENCOUNTER 2025-02-10 13:09 | Outpatient (AMB) | payer OTHER, SELFPAY ==
[2025-02-10 13:19] VITALS: BMI 26.9
--- NOTE | 2025-02-10 13:19 | A.OFFVIS_ITS ---
Vital Signs 02/10/25 13:19 Height 5 ft Weight 138 lb BMI 26.9 Intake Visit Reasons: OV: left CTS Intake Note: Hayley is a 74 year old right hand dominant female who presents today for follow up s/p Left Distal Radius & Ulnar Styloid CRPP & Left Carpal Tunnel Release DOS: 04/07/[address] Peterson. Patient reports she finished going to OT as recommended however she continues having pain on the ulnar aspect of the left wrist. She also complains of numbness and tingling on the volar aspect of her left hand. [employer] Supervisor Required: Yes [employer] Utility Supervisor Language: Paper Cone Maker Services: [employer] Utility Supervisor Present [employer] Utility Supervisor Name: Magali, RMA/LM Allergies No Known Allergies (No Known Allergies*) Allergy (Verified 02/10/25 13:23) HPI HPI OV: left CTS: Details: Hayley is a 74 year old right hand dominant female who presents today for follow up s/p Left Distal Radius & Ulnar Styloid CRPP & Left Carpal Tunnel Release DOS: 04/07/[address] Peterson. Patient reports she finished going to OT as recommended however she continues having pain on the ulnar aspect of the left wrist. She also complains of numbness and tingling on the volar aspect of her left hand. The patient reports that her range of motion difficulties have been persistent since surgery and prior evaluations, and feels that her progress has plateaued with home occupational therapy. [facility] Medical History (Updated 02/10/25 @ 13:35 by REECE Bearden) Dysuria Dilated cbd, acquired Mural thickening of small intestine Abdominal pain Myocardial infarction Left hip pain Sacroiliac joint pain Elevated liver enzymes Right knee pain Left lumbar radiculitis Lumbago with sciatica Sepsis Right anterior knee pain Nausea and vomiting Candidiasis of mouth and esophagus Medication monitoring encounter Abnormal findings on diagnostic imaging of musculoskeletal system Asthma ANGIE (obstructive sleep apnea) Diabetes Esophageal dysmotilities Esophageal candidiasis Pneumonia Cystitis Recurrent UTI (urinary tract infection) Vitamin D deficiency Hypothyroidism Osteoporosis B12 deficiency Iron deficiency anemia IBS (irritable bowel syndrome) Surgical History H/O hand surgery H/O heart surgery Hx of gastric bypass History of esophagogastroduodenoscopy (EGD) Hx of colonoscopy History of arthroscopy of left shoulder Family History Father No problems noted. Mother Stomach cancer Diabetes mellitus CVD (cardiovascular disease) Heart attack Arthritis of knee Sister COVID-19 Paternal Aunt Cancer Maternal Aunt Cancer Paternal Uncle Cancer Social History Household Members: Spouse Housing: House Are you a primary special needs caregiver to a significant other at home: No Do you presently have visiting nurse or other home services: No Alcohol intake: never 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 Patient Tobacco Use Status: Never used Tobacco Advance Directives Date on File: 11/12/24 service: No Current occupational status: disabled Review of Systems Const All systems reviewed & are unremarkable except as noted in HPI and below Physical Exam Vital Signs: BMI result Body Mass Index 26.9 Const General: no acute distress and alert Orientation/consciousness: patient oriented x3 Neuro General: patient oriented x3 Extrem Other: Evaluation of Left Upper Extremity: The patient is alert, oriented, and in no acute distress Neuro: Median, Ulnar, Radial nerves motor and sensory intact and sensation is normal to the tips of all digits Vascular: Cap refill brisk ROM: She was anxious about moving her hand and wrist today in clinic. With encouragement she is able to get approximately 70% of the way to closed fist Patient does report significant pain when doing this Wrist ROM: ~80 degrees pronation ~60 degrees supination ~ 20 degrees extension ~ 50 degrees flexion DRUJ stable on exam Fracture site non-tender Psych Appearance: grossly normal Affect: normal affect Attitude: cooperative Assessment & Plan Assessment & Plan (1) Closed fracture of left distal radius: Code(s): S52.502A - Unspecified fracture of the lower end of left radius, initial encounter for closed fracture Category: Medical (2) Lateral epicondylitis of left elbow: Code(s): M77.12 - Lateral epicondylitis, left elbow Category: Medical (3) Stiffness of left hand joint: Code(s): M25.642 - Stiffness of left hand, not elsewhere classified Category: Medical (4) Nondisplaced fracture of left ulna styloid process, sequela: Code(s): S52.615S - Nondisplaced fracture of left ulna styloid process, sequela Category: Medical (5) Carpal tunnel syndrome of left wrist: Code(s): G56.02 - Carpal tunnel syndrome, left upper limb Category: Medical Plan 1. Severe stiffness of left hand and wrist status post left distal radius ORIF DOS 04/07/2024 Patient appears to be recovering fairly well postoperatively Patient is educated about the typical recovery course Occupational therapy ordered once again for this patient Patient is educated that due to the fact that she has an proximally 1 year out from the inciting event of her stiffness, in his going to be incredibly difficult for her to regain full function of the hand at this time, however OT is advisable to regain whatever function she can Patient will follow-up in 8-12 weeks for repeat [id number] check, sooner with any acute concerns Orders: Orders OT Evaluation and Treatment Today M25.642 - Stiffness of left hand, not elsewhere classified, M77.12 - Lateral epicondylitis, left elbow, S52.502A - Unspecified fracture of the lower end of left radius, initial encounter for closed fracture, S52.615S - Nondisplaced fracture of left ulna styloid process, sequela Coding Level of Care Code Est Pt Level 3 (24211) Diagnoses Closed fracture of left distal radius S52.502A Lateral epicondylitis of left elbow M77.12 Stiffness of left hand joint M25.642 Nondisplaced fracture of left ulna styloid process, sequela S52.615S Carpal tunnel syndrome of left wrist G56.02
--- OUTSIDE RECORDS SUMMARY | 2025-02-10 13:31 | XMS_ITS | Patient Health Record ---
Author Organization [facility] Address [address] [place] [address] Care Team Providers Care Touch Up Carver Name Role Phone Rogelio TOWNSEND, Laurent Primary Care Provider Frank Hernandez Unavailable [phone] Charles Clemons Unavailable Unavailable Reason For Referral [...] Manage Prod Active Effexor XR Active Calcitonin ([place]) Active Fluticasone Propionate Active Colace 100 MG [...] Problem Status W/U Status Risk Notes Problem [id number] Slow transit constipation (K59.01) Active confirmed Plan Of Treatment Future Test Test Name Order Date UPPER GI ENDOSCOPY 12/01/2012 COLONOSCOPY 12/01/2012 Insurance Providers Payer Name Payer Address Payer Phone Subscriber Number Group Number Insured Name Patient Relationship to Insured Coverage Start Date Coverage End Date [facility] [address] [place] [id number] AMARILIS ENRIQUEZ Self - patient is the insured MED[employer] OF [employer] [address] [place] [address] [id number] AMARILIS ENRIQUEZ Self - patient is the insured Medical (General) History Medical History History ICD Code NIDDM hypertension Denies AK,CVA,renal disease Colonoscopy in 08/2007 at [facility] C with Dr. Howe-1 tubular adenoma removed, but poor prep; F/U colonoscopy in 05/2008 at [facility] was negative and with an excellent prep as per the report asthma/bronchitis Depression Hypothyroidism hyperlipidemia GERD 02/2013-neg colonoscopy except diverticul osis and internal hemorrhoids 02/2013-EGD with a small HH and anatomy c /w her gastric bypass 04/2013 nd 12/2014-neg CT of abd/pelvis Chronic constipation Surgical History Surgery Date(Month/Year) cataracts gastric [id number] [facility]-lost 100 # [facility]Y Shoulder appendectomy varicose vein stripping
--- OUTSIDE RECORDS SUMMARY | 2025-02-10 13:31 | XMS_ITS | Clinical Summary ---
Author Organization [facility] Address [address] [address] Care Team Providers Care Resolute Professional Name Role Phone Natalee Rooney MD Primary Care Provider [phone] Allergies Active Allergy Reactions Criticality Noted Date [...] Quadrival ent, Adjuvanted 03/04/2021 Influenza, Injectable, Madin [place] Canine Kidney, Preservative Free 08/23/2015 Influenza, Quadrivalent, [...] Visit [facility] [address] [place] [address] Rober Acharya MD [address] [address] [place] [address] Health Maintenance Due Date Last Done Comments [...] patient's age to complete this topic Insurance [facility] ([id number]) [facility] ([id number]) Care Teams Resolute Professional Relationship Specialty Start Date End Date Natalee Rooney MD PCP - General Family Medicine 02/05/21
== END 2025-02-10 13:36 | disposition home or self-care (01) ==
LOC: HO.HOS 13:09
PROVIDERS: PCP Internal Medicine
DX: S52.502A Unspecified fracture of the lower end of left radius, initial encounter for closed fracture (principal); M77.12 Lateral epicondylitis, left elbow; M25.642 Stiffness of left hand, not elsewhere classified; S52.615S Nondisplaced fracture of left ulna styloid process, sequela; G56.02 Carpal tunnel syndrome, left upper limb
CPT/HCPCS: 99213

== ENCOUNTER → 2025-02-10 13:09 | Outpatient (BNVA) | payer OTHER, SELFPAY | PROVIDERS: PCP Internal Medicine | DX: S52.502D Unspecified fracture of the lower end of left radius, subsequent encounter for closed fracture with routine healing (principal); S52.615D Nondisplaced fracture of left ulna styloid process, subsequent encounter for closed fracture with routine healing; X58.XXXD Exposure to other specified factors, subsequent encounter; M25.642 Stiffness of left hand, not elsewhere classified; M77.12 Lateral epicondylitis, left elbow; G56.02 Carpal tunnel syndrome, left upper limb | CPT/HCPCS: 99212 ==

== ENCOUNTER 2025-02-16 10:43 | Outpatient (REF) | payer OTHER, SELFPAY ==
[2025-02-16 14:09] LABS: Free T4 (Free Thyroxine) 0.65 ng/dL (0.71-1.85)
== END 2025-02-16 10:44 | disposition home or self-care (01) ==
LOC: HO.LAB 10:43
PROVIDERS: PCP Internal Medicine; Visit Provider Nurse Practitioner
DX: K28.9 Gastrojejunal ulcer, unspecified as acute or chronic, without hemorrhage or perforation (principal); K21.9 Gastro-esophageal reflux disease without esophagitis; K59.04 Chronic idiopathic constipation; E11.9 Type 2 diabetes mellitus without complications; R74.01 Elevation of levels of liver transaminase levels; R60.0 Localized edema; R30.0 Dysuria; E03.9 Hypothyroidism, unspecified; R29.6 Repeated falls; R14.0 Abdominal distension (gaseous); R51.9 Headache, unspecified; R42 Dizziness and giddiness; R63.4 Abnormal weight loss; R79.89 Other specified abnormal findings of blood chemistry; R13.11 Dysphagia, oral phase; Z79.01 Long term (current) use of anticoagulants
CPT/HCPCS: 36415; 84439; 84443; 86376; 99212

== ENCOUNTER 2025-02-16 10:43 | Outpatient (AMB) | payer OTHER, SELFPAY ==
--- NOTE | 2025-02-16 10:56 | A.OFFVIS_ITS ---
Vital Signs 02/16/25 11:02 Height 5 ft Weight 143 lb 4.807 oz BMI 28.0 BP 104/64 Blood Pressure Location Rt brachial Position Sitting Temp 72 F L Intake Visit Reasons: 1 wk Intake Note: Hayley presents to in office follow up of labs. CC: Patient c/o heartburn, nausea, epigastric pain, constipation, and occasional vomiting. Canned Food Reconditioning Inspector Required: No Allergies No Known Allergies (No Known Allergies*) Allergy (Verified 02/16/25 11:06) HPI HPI 1 wk: Details: Assessment & Plan (1) Abdominal pain: Code(s): R10.9 - Unspecified abdominal pain Category: Medical Qualifiers: Abdominal location: right lower quadrant Qualified Code(s): R10.31 - Right lower quadrant pain (2) Diabetes: Code(s): E11.9 - Type 2 diabetes mellitus without complications Category: Medical (3) Transaminitis: Code(s): R74.01 - Elevation of levels of liver transaminase levels Category: Medical (4) Edema, lower extremity: Code(s): R60.0 - Localized edema Category: Medical (5) Dysuria: Comment: There is concern over recurrent persistent UTI She has no urinary obstruction seen She has appointment with Urology Code(s): R30.0 - Dysuria Category: Medical (6) Hypothyroidism: Code(s): E03.9 - Hypothyroidism, unspecified Category: Medical Qualifiers: Hypothyroidism type: acquired Qualified Code(s): E03.9 - Hypothyroidism, unspecified (7) Current use of anticoagulant therapy: Code(s): 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 She says she has been having upper abdominal pain and bloating and isn't moving her bowels very well. She also has an extremely poor appetite related to the pain as it tends to worsen when she eats. However she is also complaining of headaches, severe dizziness that has a affected her gait and cause multiple falls, spontaneous bruising without injury, extreme fatigue and malaise, and nonhealing wounds mostly from severe cracks on her feet due to diabetic calluses and skin disease. She endorses severe sh ortness of breath along with swelling of her lower extremities and difficulty urinating. She is also complaining of severe insomnia despite using zolpidem. Her GI regimen is supposed to consist of pantoprazole 40 mg twice a day, metoclopramide 10 mg 4 times a day, Creon 2 caps twice a day, lactulose as needed for constipation, bisacodyl 3 tabs as needed for constipation, Linzess 290 micro g, simethicone 4 times a day as needed for bloating. However, she says she receives all of her medications ?in a box? and she really does not know the names and whether or not she has taking or is adherent to all of her GI medications. She follows with our cardiology service here and with our pulmonology service for her cardiac and respiratory disease. It appears that these have been stable. Because of the wide range of her complaints I am going to get some general blood work along with a urinalysis a thyroid a hemoglobin A1c and a BNP. She had a recent head CT that did not seem to indicate any severe disease in terms of the dizziness. She also had a recent MRCP to investigate her upper abdominal pain and her sudden increase of her liver enzymes. Because she has been falling a lot I strongly recommended that she utilize a walker instead of a cane. She admits that the cane does not give her appropriate support, but the walker she has not home has loose handles and this is causing her problems. I do not know whether this is something that could be repaired. I am going to bring her back next week and I want her to bring her entire med box with her so that I can see whether any medications are not being appropriately administered. If she remembers to bring her walker we can also take a look at that. Return office visit next week Orders: Orders UA CC w/rflx Micro + Cult Today R30.0 - Dysuria, R63.4 - Abnormal weight loss TSH reflex Free T4 Today R30.0 - Dysuria, R63.4 - Abnormal weight loss Comprehensive Met. Panel Today E11.9 - Type 2 diabetes mellitus without complications, R10.31 - Right lower quadrant pain, R74.01 - Elevation of levels of liver transaminase levels Complete Blood Count Auto Diff Today E11.9 - Type 2 diabetes mellitus without complications, R10.31 - Right lower quadrant pain, R74.01 - Elevation of levels of liver transaminase levels Prothrombin Time INR Today E11.9 - Type 2 diabetes mellitus without complications, R10.31 - Right lower quadrant pain, R74.01 - Elevation of levels of liver transaminase levels Hemoglobin A1c Today E11.9 - Type 2 diabetes mellitus without complications, R10.31 - Right lower quadrant pain, R74.01 - Elevation of levels of liver transaminase levels B Type Natriuretic Peptide Today R60.0 - Localized edema Medications: Discontinued rokoassocg-icgjvfbaggcni-ugtr 50-325-40 mg Discontinued Reason: Duplicate 1 tab PO Q4H PRN 20 tabs 0RF headache LABS; Laboratory Tests 02/07/25 11:02 WBC 4.3 L Hgb 12.8 Hct 41.2 Plt Count 282 Estimated GFR 54 Hemoglobin A1c % 6.7 H Total Bilirubin 0.8 AST 259 H ALT 235 H Alkaline Phosphatase 119 H B-Natriuretic Peptide 77 TSH 12.52 H Free T4 0.66 L Laboratory Tests 02/07/25 11:02 PT 9.9 L INR 0.9 02/07/25-[address]: Mary Rod MD ORDERED: [facility] w Micros QUERIES: Source: Urine, Clean Catch Test Result Flag Reference Ur Color Dark Yellow Ur Appear Cloudy PH 5.5 5.0-9.0 Ur Glu >=1000 H Negative mg/dL Urine Blood Small (1+) H Negative Spec [place] Ur >= 1.030 H 1.005-1.025 Urine Protein 100 (2+) H Neg-Trace mg/dL Urine Ketones Negative Negative mg/dL Ur Nitrite Negative Negative Ur Yann Esterase Negative Negative Ur RBC 6-10 H 0-2 /HPF Ur WBC 0-5 0-5 /HPF Ur Squam Epi 0-2 0-2 /HPF Ur Other Dea Present Calcium carbonate crystals noted Ur Bact None Seen None Seen Ur Hyaline Meat 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 Seafood Clerk 3-5 0-2 /LPF TODAYS VISIT Haitian #[place] [facility] Medical History (Updated 02/16/25 @ 15:11 by ABE Breen) Transaminitis Dysuria Dilated cbd, acquired Mural thickening of small intestine Abdominal pain Myocardial infarction Left hip pain Sacroiliac joint pain Elevated liver enzymes Right knee pain Left lumbar radiculitis Lumbago with sciatica Sepsis Right anterior knee pain Nausea and vomiting Candidiasis of mouth and esophagus Medication monitoring encounter Abnormal findings on diagnostic imaging of musculoskeletal system Asthma ANGIE (obstructive sleep apnea) Diabetes Esophageal dysmotilities Esophageal candidiasis Pneumonia Cystitis Recurrent UTI (urinary tract infection) Vitamin D deficiency Hypothyroidism Osteoporosis B12 deficiency Iron deficiency anemia IBS (irritable bowel syndrome) Surgical History H/O hand surgery H/O heart surgery Hx of gastric bypass History of esophagogastroduodenoscopy (EGD) Hx of colonoscopy History of arthroscopy of left shoulder Family History Father No problems noted. 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 Patient Tobacco Use Status: Never used Tobacco Advance Directives Date on File: 11/12/24 service: No Current occupational status: disabled Review of Systems Const Denies fatigue, Denies fever(s), Reports frequent falls, Denies night sweats, Reports poor appetite and Denies weight loss ENT Reports Normal hearing present, Denies dental pain, Denies dysphagia, Reports dizziness, Denies hearing loss, Denies mouth pain, Denies odynophagia, Denies throat swelling, Denies tongue swelling and Reports other (Dentition adequate) Card Reports leg edema, Reports lightheadedness and Reports dyspnea on exertion Resp Reports dyspnea on exertion GI Details: Reports abdominal pain, Denies melena, Reports bloating, Denies hematochezia, Reports constipation, Denies GI cramping, Denies dysphagia, Denies excessive flatus, Denies early satiety, Reports heartburn, Denies diarrhea, Denies nausea, Denies odynophagia, Denies vomiting and Denies hematemesis Musc Reports abnormal gait Skin/Breast Denies pruritus, Denies lesions, Denies rash and Denies jaundice Neuro Reports Normal hearing present, Denies Abnormal speech present, Reports abnormal gait, Reports dizziness and Reports frequent falls Endo Denies fatigue Luis Miguel/Lymph Reports easy bruising Aller/Immun Denies throat swelling and Denies tongue swelling Physical Exam Vital Signs: Last Vital Signs Temp 72 F L 02/16/25 11:02 BP 104/64 02/16/25 11:02 BMI result Body Mass Index 28.0 Const General: cooperative, no acute distress, well developed and well groomed Nutritional Appearance: average body habitus and well nourished Orientation/consciousness: oriented to person, oriented to place and oriented to time Limitations: language barrier HEENT Head: Yes normocephalic and Yes atraumatic Eyes General: appearance normal, both eyes and all related structures Pupils: Equal, round and reactive pupils present Neck Neck: Yes normal visual inspection and Yes no lymphadenopathy Thyroid: Thyroid normal Resp Effort & Inspection: normal respiratory effort and able to speak in complete sentences Auscultation: clear to auscultation bilaterally Cardio Rate: regular rate Rhythm: regular rhythm Heart sounds: Normal, physiologic split S2 sound present Peripheral pulses: radial pulses present and posterior tibial pulses present GI Inspection: No distended and No Abdominal panniculus present Palpation (GI): Soft to palpation, nontender, no guarding, not rigid and No hepatosplenomegaly present Percussion: Yes normal to percussion Auscultation: normal bowel sounds Rectal Exam - Female: deferred Skin General skin exam: no rashes or lesions noted, turgor normal, skin not dry, no jaundice, No spider nevi and no striae Rashes: no rashes Nails: normal Neuro General: oriented to person, oriented to place and oriented to time Cranial nerves: Yes Equal, round and reactive pupils present and Yes Normal hearing present Speech: No Abnormal speech present Extrem General: Yes normal to inspection, No clubbing, No cyanosis and No edema Psych Appearance: grossly normal and well kempt Mental Status: mental status grossly normal Speech and movement: Normal speech and movement present Affect: normal affect Attitude: cooperative Thought process: Normal thought process present and not confabulating Thought content: Normal thought content present Insight: Limited insight present (Psych) Judgement: Limited judgement present (Psych) Results Reviewed Results Reviewed: Laboratory Tests 02/07/25 11:02 WBC 4.3 L Hgb 12.8 Hct 41.2 Plt Count 282 Estimated GFR 54 Hemoglobin A1c % 6.7 H Total Bilirubin 0.8 AST 259 H ALT 235 H Alkaline Phosphatase 119 H B-Natriuretic Peptide 77 TSH 12.52 H Free T4 0.66 L Laboratory Tests 02/07/25 11:02 PT 9.9 L INR 0.9 02/07/25-[address]: Mary Rod MD ORDERED: [facility] w Micros QUERIES: Source: Urine, Clean Catch Test Result Flag Reference Ur Color Dark Yellow Ur Appear Cloudy PH 5.5 5.0-9.0 Ur Glu >=1000 H Negative mg/dL Urine Blood Small (1+) H Negative Spec [place] Ur >= 1.030 H 1.005-1.025 Urine Protein 100 (2+) H Neg-Trace mg/dL Urine Ketones Negative Negative mg/dL Ur Nitrite Negative Negative Ur Yann Esterase Negative Negative Ur RBC 6-10 H 0-2 /HPF Ur WBC 0-5 0-5 /HPF Ur Squam Epi 0-2 0-2 /HPF Ur Other Dea Present Calcium carbonate crystals noted Ur Bact None Seen None Seen Ur Hyaline 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 Diet and thickened liquids Code(s): R13.11 - Dysphagia, oral phase Category: Medical (4) Chronic idiopathic constipation: Code(s): K59.04 - Chronic idiopathic constipation Category: Medical (5) Abdominal pain: Code(s): R10.9 - Unspecified abdominal pain Category: Medical Qualifiers: Abdominal location: right lower quadrant Qualified Code(s): R10.31 - Right lower quadrant pain (6) GERD (gastroesophageal reflux disease): Code(s): K21.9 - Gastro-esophageal reflux disease without esophagitis Category: Medical (7) Dysphagia: Comment: . HE EGD 09/2019 Esophagus: Tortuous esophagus with increased tertiary contractions without stricture or ring. GE junction at 34 cms. No esophagitis or Carrasquillo s. Stomach: Maurice en Y gastric bypass status. Gastric remnant from 34 to 36 cms. Normal anastomosis without ulcers. Mild gastric erythema. Biopsies were obtained. BARIUM SWALLOW 09/2020 IMPRESSION: 1. No aspiration or laryngeal penetration. 2. See speech pathologist report for further assessment and recommendation. Code(s): R13.10 - Dysphagia, unspecified Category: Medical Plan Upon investigating her multiple vague complaints I discovered that her TSH was extremely high at 12 with her free T4 extremely low. Globally, all of this could be contributing to her wide variety of symptoms. However, I let her know that we need to repeat the thyroid and add some additional tests before we decide for sure that this is what is happening. It is also possible that this is a lab error or that her body had an increased demand for thyroid secondary to a viral illness etc.. She is agreeable to going to the lab today to repeat these tests. Depending on their results, I will decide if I need to coordinate with her primary care provider. It appears that she had a thyroid study in terms of a CAT scan/ultrasound last year and I will reorder this just to see if there is any changes in the gland. He also complaining of dysphagia, but this has been a longstanding complaint since 2020. At that time it was determined that this was a neurologic/coordination problem via modified barium swallow and speech therapy and the patient was advised to do thickened liquids and be on a puree/soft diet. I explained to her that this is not a condition that we can fix and I do not feel that this is related to any potential thyroid problems although I suppose it is always possible. She says that she is continuing to have liquids when she eats and he is generally following a pureed diet. Her GI regimen consists of:opantoprazole 40 mg twice a day, metoclopramide 10 mg 4 times a day, Creon 2 caps twice a day, lactulose as needed for constipation, bisacodyl 3 tabs as needed for constipation, Linzess 290 micro g, simethicone 4 times a day as needed (She presents today saying she has been very unwell and has multiple complaints, some related directly to the GI system and others not. She says she has been having upper abdominal pain and bloating and isn't moving her bowels very well. She also has an extremely poor appetite related to the pain as it tends to worsen when she eats. However she is also complaining of headaches, severe dizziness that has a affected her gait and cause multiple falls, spontaneous bruising without injury, extreme fatigue and malaise, and nonhealing wounds mostly from severe cracks on her feet due to diabetic calluses and skin disease. She endorses severe shortness of breath along with swelling of her lower extremities and difficulty urinating. She is also complaining of severe insomnia despite using zolpidem.) Return office visit in 2 weeks Orders: Orders TSH reflex Free T4 Today E03.9 - Hypothyroidism, unspecified, R79.89 - Other specified abnormal findings of blood chemistry Thyroid Peroxidase Antibodies Today E03.9 - Hypothyroidism, unspecified, R79.89 - Other specified abnormal findings of blood chemistry US thyroid Today E03.9 - Hypothyroidism, unspecified, R79.89 - Other specified abnormal findings of blood chemistry Coding Level of Care Code Est Pt Level 4 (15388) Diagnoses Acquired hypothyroidism E03.9 Hypothyroidism type: acquired Elevated TSH R79.89 Oral phase dysphagia R13.11 Chronic idiopathic constipation K59.04 Abdominal pain R10.31 Abdominal location: right lower quadrant GERD (gastroesophageal reflux disease) K21.9 Dysphagia R13.10 Time Spent (min) 35
[2025-02-16 11:02] VITALS: BP 104/64; TEMP 22.2; BMI 28.0
--- OUTSIDE RECORDS SUMMARY | 2025-02-16 12:19 | XMS_ITS | Clinical Summary ---
Author Organization [facility] Facility Address [address] [address] Care Team Providers Care Air Defense Specialist Name Role Phone Natalee Rooney MD Primary Care Provider [phone] Allergies Active Allergy Reactions Criticality Noted Date [...] Visit [facility] [address] [place] [address] Rober Acharya MD [address] [facility] [address] [place] [address] Health Maintenance Due Date Last Done Comments [...] patient's age to complete this topic Insurance [facility] ([id number]) [facility] ([id number]) Care Teams Air Defense Specialist Relationship Specialty Start Date End Date Natalee Rooney MD PCP - General Family Medicine 02/05/21
--- OUTSIDE RECORDS SUMMARY | 2025-02-16 12:19 | XMS_ITS | Encounter Summary ---
Author Organization [employer] Address [address] [facility] [address] [place] [address] Care Team Providers Care Family Coach Name Role Phone Mary Rod MD Primary Care Provide r Reason for Visit * Reason Onset Date Comments Med Refill 10/12/2024 Encounter Details Date Type Department Care Team ([facility] st Contact Info) Description 10/12/2024 Telephone [facility] MEDICINE [address] [place], [place] [phone] Mary Rod MD [address] [place], [place] [phone] Med Refill Social History Tobacco Use Types [...] Nassar LPN - 10/12/2024 8:36 AM EDT INDUSTRIAL TECHNOLOGY TEACHER checked on 10/12/24 Ambien last filled on 08/04/24 by Mariaelena Yan. * Telephone Encounter - Michael Fabian - 10/12/2024 8:30 AM EDT TC from pt requesting medication refill. Medications needing refill : zolpidem (Ambien) 10 MG tablet To be sent to: [facility] - [place], [place] - [address] [place] [address] documented in this encounter Plan of Treatment Upcoming Encounters Date Type Department Care Team (Late st Contact Info) Description 03/10/2025 9:45 AM EDT Office Visit [facility] MEDICINE [address] [place] [address] Mary Rod MD [address] [place] [address] 05/15/2025 9:30 AM EST Office Visit [facility] OPTOMETRY [address] [place] [address] Tonya Brennan, OD [address] [place] [address] documented as of this encounter Goals Goal [...] documented as of this encounter Care Teams Family Coach Relationship Specialty Start Date End Date Mary Rod MD [address] [place] [id number] PCP - General Family Medicine 02/07/22 [facility] 11/16/24 01/15/25 documented as of this encounter
--- OUTSIDE RECORDS SUMMARY | 2025-02-16 12:19 | XMS_ITS | Patient Health Record ---
Author Organization [facility] Address [address] [place] [address] Care Team Providers Care Rehabilitation Therapy Technician Name Role Phone Rogelio TOWNSEND, Laurent Primary Care Provider Frank Hernandez Unavailable [phone] Charles Clemons Unavailable Unavailable Reason For Referral [...] Manage Prod Active Effexor XR Active Calcitonin ([place]) Active Fluticasone Propionate Active Colace 100 MG [...] Problem Status W/U Status Risk Notes Problem [id number] Slow transit constipation (K59.01) Active confirmed Plan Of Treatment Future Test Test Name Order Date UPPER GI ENDOSCOPY 12/01/2012 COLONOSCOPY 12/01/2012 Insurance Providers Payer Name Payer Address Payer Phone Subscriber Number Group Number Insured Name Patient Relationship to Insured Coverage Start Date Coverage End Date [facility] [address] [place] [phone] [id number] AMARILIS ENRIQUEZ Self - patient is the insured MEDICA[employer] OF [employer] [address] [place] [address] [id number] AMARILIS ENRIQUEZ Self - patient is the insured Medical (General) History Medical History History ICD Code NIDDM hypertension Denies ID,CVA,renal disease Colonoscopy in 08/2007 at [facility] with Dr. Howe-1 tubular adenoma removed, but poor prep; F/U colonoscopy in 05/2008 at [facility] was negative and with an excellent prep as per the report asthma/bronchitis Depression Hypothyroidism hyperlipidemia GERD 02/2013-neg colonoscopy except diverticul osis and internal hemorrhoids 02/2013-EGD with a small HH and anatomy c /w her gastric bypass 04/2013 nd 12/2014-neg CT of abd/pelvis Chronic constipation Surgical History Surgery Date(Month/Year) cataracts gastric [id number] [facility]-lost 100 # [facility] Shoulder appendectomy varicose vein stripping
--- OUTSIDE RECORDS SUMMARY | 2025-02-16 12:19 | XMS_ITS | Encounter Summary ---
Author Organization [employer] Address [address] [facility] [address] [place] [address] Care Team Providers Care Refrigeration Unit Repairer Name Role Phone Mary Rod MD Primary Care Provide r Encounter Details Date Type Department Care Team ([facility] st Contact Info) Description 03/25/2023 Orders Only [facility] MEDICINE [address] [place], [place] [phone] ProviderLinsey MD Social History Tobacco Use Types [...] Description 03/10/2025 9:45 AM EDT Office Visit [facility] MEDICINE [address] [place] [address] Mary Rod MD [address] [place] [address] 05/15/2025 9:30 AM EST Office Visit [facility] OPTOMETRY [address] [place] [address] TarkaTonya, OD [address] [place] [address] documented as of this encounter Goals Goal [...] documented as of this encounter Care Teams Refrigeration Unit Repairer Relationship Specialty Start Date End Date Mary Rod MD [address] [place] [address] PCP - General Family Medicine 02/07/22 Tequila MACIAS 11/16/24 01/15/25 documented as of this encounter
--- OUTSIDE RECORDS SUMMARY | 2025-02-16 12:19 | XMS_ITS | Clinical Summary ---
Author Organization [employer] Address [address] [facility] [address] [place] [address] Care Team Providers Care Lime Puller Name Role Phone Mary Rod MD Primary [...] by mouth Once per day. Active pancrelipase, Dco-Fzvx-Isfw, (Creon) 94016-62728 units capsuleIndications :Pancreatic insufficiency TAKE 1 CAPSULE [...] g 1 10/26/19 25 Active nystatin (Mycostatin) 126274 UNIT/GM powderIndications: Intertrigo APPLY TO THE AFFECTED AREA(S) TOPICALLY TWICE DAILY 60 g 1 11/01/19 25 Active montelukast (Singulair) 10 MG tablet TAKE 1 TABLET BY MOUTH AT BEDTIME 30 tablet 3 12/09/19 25 Active Farxiga 10 MGIndications:Type 2 diabetes mellitus with chronic kidney disease, without long-term current use of insulin, unspecified CKD stage ([facility]) TAKE 1 TABLET BY MOUTH EVERY [...] associated with type 2 diabetes mellitus ([facility]/HCC) Use to test blood sugar 1 times daily 100 each 12 12/28/19 25 026 Active Lancets miscIndications: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 ([facility]/HCC) Use to test blood sugar 1 times daily 100 each 2 12/28/19 25 Active Alcohol Swabs 70 % padsIndications: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 ([facility]) Use to test blood sugar 1 times daily 100 each 12/28/19 25 Active Blood Glucose Monitoring Suppl (FreeStyle Easley Lite) w/Device kitIndications:Paty betic nephropathy associated with type 2 diabetes mellitus ([facility]) Use to test blood sugar 1 times [...] with specialist Coronary artery disease invo lving [place] coronary artery of [place] heart 05/20/2024 Ecchymoses, spontaneous 02/02/2024 Assessment & [...] Duoneb NBZ but advise to see her manager digital if needed -has apt w neck band setter in 12/2023 Hyperkalemia 09/30/2023 Assessment & Plan [...] Acute kidney injury superimposed on CKD ([facility] ) 01/19/2023 Assessment & Plan (01/19/2023 [...] Encounters Date Type Department Care Team Description 02/07/2025 Orders Only GENERIC EXTERNAL DATA DEPARTMENT Provider, Generic External Data 12/27/2024 Orders Only [facility] [address] [place] [address] [phone] Mary Rod MD Primary hypertension 12/27/2024 Telephone [facility] [address], [place] [phone] Mary Rod MD Call Back Request 12/22/2024 Refill [facility] [address], [place] [phone] Mary Rod MD Spinal stenosis of lumbar region, unspecified whether neurogenic claudication present; Acquired hypothyroidism 12/09/2024 Orders Only GENERIC EXTERNAL DATA DEPARTMENT Provider, Generic External Data 12/08/2024 1:45 PM EDT Office Visit [address] [address] Mary Rod MD Unstable gait (Primary Dx); Type 2 diabetes mellitus with chronic kidney disease, without long-term current use of insulin, unspecified CKD stage (CMS/HCC); Frequent falls; Metabolic dysfunction-associated steatotic liver disease (MASLD); Stage 3a chronic kidney disease (CMS/HCC); Left foot pain; Encounter for immunization 12/08/2024 Travel 12/08/[address] [address] Mary Rod MD Spinal stenosis of lumbar region, unspecified whether neurogenic claudication present; Type 2 diabetes mellitus with chronic kidney disease, without long-term current use of insulin, unspecified CKD stage (CMS/HCC) 12/07/[address] [address] Mary Rod MD chart prep 12/02/2024 Orders Only GENERIC EXTERNAL DATA DEPARTMENT Provider, Generic External Data 12/02/[address] [address] Mary Rod MD Nurse Triage 11/30/2024 Patient Outreach [address] [address] Mary Rod MD Pre-visit Planning (Pre visit planning LVM ) from Last 3 Months Immunizations Immunization Administration [...] seasonal, injecta ble, preservative free 04/05/2012 Novel [id number] 05/14/2016 Pfizer Covid-19 Vaccine 12+ 06/18/2023 Pneumococcal [...] Description 03/10/2025 9:45 AM EDT Office Visit [facility] [address] [place] [address] Mary Rod MD [address] [place] [address] 05/15/2025 9:30 AM EST Office Visit [facility] [address] [place] [address] Tonya Brennan, OD [address] [place] [address] Health Maintenance Due Date Last Done Comments CT Colonography 1950 FIT DNA/Cologuard 1950 FIT 1950 FOBT 1950 Sigmoidoscopy 1950 Diabetes: Foot Exam 11/14/1961 Alcohol/Substance Use Screening 1963 Hepatitis A Vaccines (1 of 2 - Risk 2-dose series) 11/14/1970 Hepatitis B Vaccines (2 of 3 - Risk 3-dose series) 01/05/2025 12/08/2024 Depression Screening 01/06/2025 01/07/2024, 01/07/20 24 SDOH Screening 01/06/2025 01/07/2024 Mammogram 01/08/2025 01/08/2023, 09/13, 09/26/2021, Additional history exists COVID-19 Vaccine ( season) 2025 06/18/2023, 03/21/2022, 10/08/2021, Additional history exists Influenza Vaccine (#1) 2025 , 03/18/2023, 03/10/2022, Additional history exists Diabetes: Hemoglobin A1C 08/10/2025 025, 08/12/2024, 01/07/2024, Additional history exists Eye Exam 11/10/2025 11/10/2024, [...] Procedure Name Priority Date/Time Associated Diagnosis Comments T4, FREE Routine 02/07/2025 11:02 AM EDT TSH W/REFLEX TO FT4 Routine 02/07/2025 1 1:02 AM EDT COMPREHENSIVE METABOLIC PANEL Routine 02/07/2025 11:02 AM EDT B TYPE NATRIURETIC PEPTIDE (BNP) Routine 02/07/2025 11:02 AM EDT HEMOGLOBIN A1C Routine 02/07/2025 11:02 AM EDT PROTHROMBIN TIME-INR Routine 02/07/2025 11:02 AM EDT CBC WITH AUTO DIFFERENTIAL Routine 02/07/2025 11:02 AM EDT URINALYSIS, COMPLETE, WITH REFLEX TO CULTURE Routine 02/07/2025 10:53 AM EDT URINALYSIS WITH REFLEX MICROSCOPIC Routine 02/07/2025 10:53 AM EDT URINALYSIS, COMPLETE, WITH REFLEX TO CULTURE [...] WITH ELASTOGRAPHY Routine 11/23/2024 8:17 AM EDT HEPATITIS PANEL, GENERAL Routine 09/30/2024 8:24 AM EDT HM COLONOSCOPY Routine 02/16/2023 BI MAMMOGRAM SCREENING TOMOSYNTHESIS BILATERAL Routine 01/08/2023 12:20 PM EDT from Last 3 Months or Most Recently Relevant to Health Maintenance Results * (ABNORMAL) TSH with Reflex to Free T4 (02/07/2025 11:02 AM EDT) [facility] TSH reflex Free T4 12.52(H) 0.32 - 4.0 uIU/mL [facility] 02/07/2025 11:0 2 AM EDT 02/07/2025 11:02 AM EDT us Generic External Data Provider LAB BLOOD ORDERAB LES Final Result [facility] [address] [place] [phone] * (ABNORMAL) CBC auto differential (02/07/2025 11:02 AM EDT) Only the most recent of2 resultswithin the time period is included. [facility] White Blood Count 4.3(L) 4.8 - 10.8 X10*3/uL [facility] Red Blood Count 4.32 4.20 - 5.50 X10*6/uL [facility] Hemoglobin 12.8 12.0 - 16.0 g/dl [facility] Hematocrit 41.2 37.0 - 47.0 % [facility] Mean Corpuscular Volume 95.4 80.0 - 98.0 fL [facility] Mean Corpuscular Hemoglobin 29.6 27.0 - 33.0 pg [facility] Mean Corpuscular HGB Conc 31.1 31.0 - 35.0 g/dl [facility] Red Cell Distribution Width 15.3 11.0 - 16.0 % [facility] Platelet Count 282 160 - 400 X10*3/uL [facility] Mean Platelet Volume 10.8 9.4 - 12.3 fL [facility] Neutrophils Percent Auto 49.2 45 - 73 % [facility] Imm Gran Pct Auto 0.2 0.0 - 0.4 % [facility] Lymphocytes Percent Auto 35.9 20 - 40 % [facility] Monocytes Percent Auto 11.2(H) 2 - 11 % [facility] Eosinophils Percent Auto 2.6 0 - 4 % [facility] Basophils Percent Auto 0.9 0 - 2 % [facility] NRBC Pct Auto 0.0 0.0 - 0.2 /100WBC [facility] Neutrophils Absolute Auto 2.1 2.0 - 8.3 x10*3/uL [facility] Imm Gran Abs Auto 0.01 0.00 - 0.03 X10*3/uL [facility] Lymphocytes Absolute Auto 1.5 1.2 - 4.9 X10*3/uL [facility] Monocytes Absolute Auto 0.5 0.1 - 1.2 X10*3/uL [facility] Eosinophils Absolute Auto 0.1 0.0 - 0.4 X10*3/uL [facility] Basophils Absolute Auto 0.0 0.0 - 0.2 X10*3/uL [facility] NRBC Abs Auto 0.000 0.0 - 0.012 X10*3/uL [facility] 02/07/2025 11:0 2 AM EDT 02/07/2025 11:02 AM EDT us Generic External Data Provider LAB BLOOD ORDERAB LES Final Result [facility] [address] [place] [phone] * (ABNORMAL) Prothrombin Time-INR (02/07/2025 11:02 AM EDT) [facility] Prothrombin Time 9.9(L) 10.9 - 12.4 SEC [facility] INTERNATIONAL NORM RATIO 0.9 0.9 - 1.1 [facility] Comment:INTERNATIONAL NORMAL IZED RATIO (INR) REFERENCE RANGES Reference RangeFor patients not on anticoagulant therapy: 0.9 - 1.1INR ranges for oral anticoagulanttherapy:For prevention and treatment of venous thrombosis and pulmonary embolism: 2.0 - 3.0For acute myocardial infarction with aspirin therapy: 2.0 - 3.0For acute myocardial infarction without aspirin therapy: 3.0 - 4.0For patients with mechanical prosthetic heart valves: 2.5 - 3.5 02/07/2025 11:0 2 AM EDT 02/07/2025 11:02 AM EDT Generic External Data Provider LAB BLOOD ORDERAB LES Final Result Performing Organization Address [facility]/ZIP Co de Phone Number [facility] [address] [place] [phone] * (ABNORMAL) T4, Free (02/07/2025 11:02 AM EDT) [facility] Free T4 (Free Thyroxine) 0.66(L) 0.71 - 1.85 ng/dL [facility] 02/07/2025 11:0 2 AM EDT 02/07/2025 11:02 AM EDT Generic External Data Provider LAB BLOOD ORDERAB LES Final Result Performing Organization Address [facility]/ZIP Co de Phone Number [facility] [address] [place] [phone] * B Type Natriuretic Peptide (BNP) (02/07/2025 11:02 AM EDT) [facility] B Type Natriuretic Peptide 77 <100 pg/mL [facility] 02/07/2025 11:0 2 AM EDT 02/07/2025 11:02 AM EDT Generic External Data Provider LAB BLOOD ORDERAB LES Final Result Performing Organization Address [facility]/ZIP Co de Phone Number [facility] [address] [place] [phone] * (ABNORMAL) Hemoglobin A1c (02/07/2025 11:02 AM EDT) Hemoglobin A1c 6.7(H) <6.0 % [facility] Comment:Hemoglobin A1C Refer ence Range Adults: 4.8 - 6.0 % Non diabetic: < 6.0 % Goal: < 7.0 %Additional Action Suggested: > 8.0 %Note: Hemoglobin A1c results are invalid for patients with abnormal amounts of HbF. Blood transfusions may impact the HbA1c concentration in the patient sample. Estimated Average Glucose 146 mg/dL [facility] Comment:eAG = Estimated ave rage glucose which is %A1C expressed asaverage glucose, using the formula of the D2C-SvajmowJirgsmb Glucose study (ADAG), Diabetes Care, Vol.31,#8,Jan. 2007 02/07/2025 11:0 2 AM EDT 02/07/2025 11:02 AM EDT Generic External Data Provider LAB BLOOD ORDERAB LES Final Result Performing Organization Address [facility] Co de Phone Number [facility] [address] [place] [phone] * (ABNORMAL) Comprehensive Metabolic Panel (02/07/2025 11:02 AM EDT) Only the most recent of2 resultswithin the time period is included. Sodium 141 135 - 145 mmol/L [facility] Potassium 4.8 3.3 - 5.1 mmol/L [facility] Chloride 110(H) 96 - 108 mmol/L [facility] Carbon Dioxide 23 22 - 29 mmol/L [facility] Anion Gap 13 12 - 20 [facility] Urea Nitrogen (BUN) 12 9 - 16 mg/dL [facility] Creatinine, Serum 1.00 0.5 - 1.4 mg/dL [facility] Estimated Glomerular Filt Rate 54 [facility] Comment:Chronic Kidney Disea se: Estimated GFR < 60 mL/min/1.89w6Sopzso Kidney Disease: Estimated GFR < 15 mL/min/1.73m2 Glucose 75 60 - 115 mg/dL [facility] Calcium 9.2 8.4 - 10.2 mg/dL [facility] Bilirubin, Total 0.8 0.0 - 1.0 mg/dL [facility] Aspartate Amino Transferase 259(H) 5 - 31 U/L [facility] Alanine Aminotransferase 235(H) 0 - 31 U/L [facility] Total Protein 7.1 6.5 - 8.0 g/dL [facility] Albumin Level 4.2 3.5 - 5.0 g/dL [facility] Alkaline Phosphatase 119(H) 39 - 117 U/L [facility] 02/07/2025 11:0 2 AM EDT 02/07/2025 11:02 AM EDT us Generic External Data Provider LAB BLOOD ORDERAB LES Final Result [facility] [address] [place] [phone] * (ABNORMAL) Urinalysis, Complete, with Reflex to Culture (02/07/2025 10:53 AM EDT) Only the most recent of3 resultswithin the time period is included. Color Urine Dark Yellow [facility] Appearance Urine Cloudy [facility] PH 5.5 5.0 - 9.0 [facility] Glucose Urine UA >=1000(A) Negative mg/dL [facility] Urine Blood Small (1+)(A) Negative [facility] Specific Union - Urine >=1.030(H) 1.005 - 1.025 [facility] Urine Protein 100 (2+)(A) Neg-Trace mg/dL [facility] Urine Ketones Negative Negative mg/dL [facility] Nitrite Urine Negative Negative [facility] Leukocyte Esterase Urine Negative Negative [facility] RBC Urine 6-10(A) 0 - 2 /HPF [facility] Urine WBC 0-5 0 - 5 /HPF [facility] Urine Squamous Epithelial Cell 0-2 0 - 2 /HPF [facility] Other Crystals Urine Present [facility] Comment:Calcium carbonate cr ystals noted Urine Bacteria None Seen None Seen [facility] Hyaline Casts, Urine 3-5 0 - 2 /LPF [facility] 02/07/2025 10:5 3 AM EDT 02/07/2025 11:23 AM EDT Narrative [facility] - 02/07/2025 11:58 AM EDT Urine, Clean Catch us Generic External Data Provider LAB URINE ORDERAB LES Final Result Performing Organization Address City/State/[facility] Co de Phone Number [facility] [address] [place] [phone] * (ABNORMAL) Urinalysis w/reflex microscopic (02/07/2025 10:53 AM EDT) Color Urine Dark Yellow [facility] Appearance Urine Cloudy [facility] PH 5.5 5.0 - 9.0 [facility] Glucose Urine UA >=1000(A) Negative mg/dL [facility] Urine Blood Small (1+)(A) Negative [facility] Specific Union - Urine >=1.030(H) 1.005 - 1.025 [facility] Urine Protein 100 (2+)(A) Neg-Trace mg/dL [facility] Urine Ketones Negative Negative mg/dL [facility] Nitrite Urine Negative Negative [facility] Leukocyte Esterase Urine Negative Negative [facility] 02/07/2025 10:5 3 AM EDT 02/07/2025 11:23 AM EDT Narrative [facility] - 02/07/2025 11:40 AM EDT Urine, Clean Catch us Generic External Data Provider LAB URINE ORDERAB LES Final Result Performing Organization Address [facility] Co de Phone Number [facility] [address] [place] [phone] * (ABNORMAL) Albumin, Random Urine W/Creatinine (12/09/2024 8:53 AM EDT) Creatinine, Urine 123.50 mg/dL [facility] Microalbumin Urine 57.0 mg/L H [facility] Microalbum Creatinine Ratio Ur 46.1(H) <30 ug/mg cr [facility] Comment:Albumin/Creatinine R atio Reference Ranges: Normal: < 30 ug/mg creatinine Microalbuminuria: 30 - 300 ug/mg creatinineClinical Albuminuria: > 300 ug/mg creatinine Urine (Urine, Random) 12/09/2024 8:53 AM EDT 12/09/2024 10:54 AM EDT us Mary Rivera MD LAB URINE ORDERABLES Final Result Performing Organization Address [facility] Co de Phone Number [facility] [address] [place] [phone] * Lipid Panel, Standard (12/09/2024 8:53 AM EDT) Triglycerides 72 <150 mg/dL [facility] Comment:Desirable Triglyceri de: less than 150 mg/dLBorderline High Triglyceride 150-199 mg/dLHigh Triglyceride: 200-499 mg/dLVery High Triglyceride: greater than or equal to 5OO mg/dL Cholesterol 113 <200 mg/dL [facility] Comment:Desirable Cholestero l: less than 200 mg/dLBorderline High Cholesterol: 200-239 mg/dLHigh Cholesterol: greater than 239 mg/dL LDL Cholesterol Calculated 51 <100 mg/dL [facility] Comment:Desirable LDL: less than 100 mg/dLNear Optimal/Above Optimal LDL: 110- 129 mg/dLBorderline High LDL: 130-159 mg/dLHigh LDL: 160-189 mg/dLVery High LDL: greater than or equal to 190 mg/dL HDL Cholesterol 48 >40 mg/dL [facility] Comment:Desirable HDL: great er than 40 mg/dL Note: This HDL assay may give artificially low results in patients with liver disease. Blood Venous blood specimen / Unknown 12/09/2024 8:53 AM EDT 12/09/2024 11:08 AM EDT Mary Rivera MD LAB BLOOD ORDERABLES Final Result [facility] [address] [place] [address] [phone] * (ABNORMAL) POCT Glucose (12/08/2024 1:38 PM EDT) Glucose Blood, POC 351(A) 60 - 200 mg/dL QC Media Lot # [id number] Lot# Expiration Date Blood Capillary blood specimen / Unknown 12/08/2024 1:38 PM EDT us Mary Rivera MD POINT OF CARE TEST EN TER/EDIT ORDERABLES Final Result * CT Head w/o Contrast (12/02/2024 2:41 PM EDT) Anatomical Region Laterality Modality Head, Neck Computed Tomogra phy 12/02/2024 2:41 PM EDT Narrative 12/02/2024 4:14 PM EDT [address] [address] [address] Scan Report Signed Patient: Hayley Marc MR#: [id number] : 1950 Acct:[id number] Age/Sex: 74 / F ADM Date: 12/02/24 Loc: HO.ED Attending Dr: Ordering Physician: Rafael Paz MD Date of Service: 12/02/24 Procedure(s): CT head/brain wo IV con Accession Number(s): [id number] cc: Mary Rod MD; Rafael Paz MD Report Number: [id number]: Total DLP = 564.00 mGy-cm EXAMINATION: CT [...] 12/02/24 1611 DD/ 1441 TD/TT: 12/02/24 1555 Managed Care Manager: Procedure Note Donotuseinterpreter, Image - 12/02/[address] [address] [address] Scan Report Signed Patient: Josselin MarcR#: [id number] : 1950cct:[id number] Age/Sex: 74 / FADM Date: 12/02/24 Loc: HO.ED Attending Dr: Ordering Physician: Rafael Paz MD Date of Service: 12/02/24 Procedure(s): CT head/brain wo IV con Accession Number(s): [id number] cc: Mary Rod MD; Rafael Paz MD Report Number: [id number]: Total DLP = 564.00 mGy-cm EXAMINATION: CT [...] 12/02/24 1611 DD/ 1441 TD/TT: 12/02/24 1555 Managed Care Manager: [facility] External Provider IMG CT PROCEDURES Final Result * Glucose, Whole Blood (12/02/2024 12:21 PM EDT) Glucose, Whole Blood 78 60 - 115 mg/dL [facility] Comment:METER #: [id number] 12/02/2024 12:2 1 PM EDT 12/02/2024 12:24 PM EDT Generic External Data Provider LAB BLOOD ORDERAB LES Final Result Performing Organization Address [facility] Co de Phone Number [facility] [address] [place] [phone] * High Sensitivity Troponin I (12/02/2024 12:09 PM EDT) TROPONIN I HIGH SENSITIVITY <2.7 <3.5 - 17.0 ng/L [facility] Comment:The [place] high sens itivity Troponin-I results should beused in conjunction with other diagnostic information suchas ECG, clinical observations and information, and patientsymptoms to aid in the diagnosis of [place]. 12/02/2024 12:0 9 PM EDT 12/02/2024 12:12 PM EDT Generic External Data Provider LAB BLOOD ORDERAB LES Final Result Performing Organization Address City/[facility]/ZIP Co de Phone Number [facility] [address] [place] [phone] * C-reactive Protein (12/02/2024 12:09 PM EDT) C Reactive Protein <0.10 < or = 0.50 mg/dL [facility] 12/02/2024 12:0 9 PM EDT 12/02/2024 12:12 PM EDT us Generic External Data Provider LAB BLOOD ORDERAB LES Final Result Performing Organization Address [facility] Phone Number [facility] [address] [place] [phone] * Magnesium (12/02/2024 12:09 PM EDT) Magnesium 2.6 1.6 - 2.6 mg/dL [facility] 12/02/2024 12:0 9 PM EDT 12/02/2024 12:12 PM EDT us Generic External Data Provider LAB BLOOD ORDERAB LES Final Result Performing Organization Address [facility] Phone Number [facility] [address] [place] [phone] * US Abdomen Comp w elastography (11/23/2024 8:17 AM EDT) Anatomical Region Laterality Modality Abdomen Ultrasound 11/23/2024 8:17 AM EDT Narrative 11/23/2024 9:41 AM EDT [address] [address] Ultrasound Report Signed Patient: Hayley Marc MR#: [id number] : 1950 Acct:[id number] Age/Sex: 74 / F ADM Date: 11/23/24 Loc: HO.US Attending Dr: Charles Clemons MD Ordering Physician: Charles Clemons MD Date of Service: 11/23/24 Procedure(s): US abdomen comp w elastography Accession Number(s): [id number] cc: Mary Rod MD; Aniya Baraohna ANP-C; Charles Clemons MD EXAMINATION: US ABDOMEN COMPLETE [...] Andersen MD in OV> 11/23/24 0939 DD/ 0817 TD/TT: 11/23/24 0832 Managed Care Manager: Procedure Note Donotuseinterpreter, Image - 11/23/[address] [address] Ultrasound Report Signed Patient: Susan Marc#: [id number] : 1950cct:[id number] Age/Sex: 74 / FADM Date: 11/23/24 Loc: HO.US Attending Dr: Charles Clemons MD Ordering Physician: Charles Clemons MD Date of Service: 11/23/24 Procedure(s): US abdomen comp w elastography Accession Number(s): [id number] cc: Mary Rod MD; JunSeptember-C; Charles Clemons [...] Andersen MD in OV> 11/23/24 0939 DD/ 0817 TD/TT: 11/23/24 0832 Managed Care Manager: us [facility] External Provider IMG US PROCEDURES Final Result * Hepatitis Panel, General (09/30/2024 8:24 AM EDT) Hepatitis A IgM Nonreactive Nonreactive [facility] Comment:IgM antibodies to LAZCANO V not detected; does not exclude earlyacute or recovered HAV infection. ~Hepatitis B Surface Antibody NONREACTIVE Nonreactive [facility] Comment:Nonreactive: < 8.00 mIU/mL Hepatitis B Core Antibody Nonreactive Nonreactive [facility] Hepatitis C Antibody Nonreactive Nonreactive [facility] Comment:Antibodies to HCV no t detected; does not exclude early acuteHCV infection. Hepatitis B Surface Ag Negative Negative [facility] 09/30/2024 8:24 AM EDT 09/30/2024 8:24 AM EDT Generic External Data Provider LAB BLOOD ORDERAB LES Final Result [facility] [address] [place] [phone] * Hm Colonoscopy (02/16/2023) Historical Provider HEALTH MAINTENANCE Final Result * BI Mammogram Screening Tomosynthesis Bilateral (01/08/2023 12:20 PM EDT) Anatomical Region Laterality Modality Breast Bilateral Mammography 01/08/2023 12:2 0 PM EDT Narrative 01/30/2023 10:10 AM EDT [address] [place] [address] Mammography Report Signed Patient: Hayley Marc MR#: [id number] : 1950 Acct:[id number] Age/Sex: 72 / F ADM Date: 01/08/23 Loc: HO.MAMMO Attending Dr: Mary Rivera MD Ordering Physician: Mayr Rod MD Results: Date of Service: 01/08/23 Follow Up: Procedure(s): MM tomosynthesis screening BI Accession Number(s): [id number] cc: Mary Rod MD EXAMINATION: MM SCREENING [...] in OV> 01/30/23 1007 DD/ 1220 TD/TT: Managed Care Manager: Procedure Note Donotuseinterpreter, Image - 01/30/2023 [facility] [address] [place], [place] [address] Mammography Report Signed Patient: Susan Marc#: [id number] : 1950cct:[id number] Age/Sex: 72 / FADM Date: 01/08/23 Loc: HO.MAMMO Attending Dr: Mary Rivera MD Ordering Physician: Mary Rod MDResults: Date of Service: 01/08/23Follow Up: Procedure(s): MM tomosynthesis screening BI Accession Number(s): [id number] cc: Mary Rod MD EXAMINATION: MM SCREENING [...] in OV> 01/30/23 1007 DD/ 1220 TD/TT: Managed Care Manager: Mary Rivera MD IMG BI PROCEDURES Kar peter Result - Final from Last 3 Months or Most Recently Relevant to Health Maintenance Insurance [facility] ASSISTED OPTIONS (O D-SNP) Care Teams Lime Puller Relationship Specialty Start Date End Date Mary Rod MD [address] [place] [id number] PCP - General Family Medicine 02/07/22
--- OUTSIDE RECORDS SUMMARY | 2025-02-16 12:19 | XMS_ITS | Encounter Summary ---
Author Organization [employer] Address [address] [place] [address] Care Team Providers Care Shafting Worker Name Role Phone Mary Rod MD Primary Care Provide r Reason for Visit * Reason Comments Med Refill Encounter Details Date Type Department Care Team (Late st Contact Info) Description 04/13/2023 Refill [facility]INE [address] [place], [place] [phone] Yara Tompkins MD [address] [place], [place] [phone] Social History Tobacco Use Types Packs/Day Years [...] Description 03/10/2025 9:45 AM EDT Office Visit [facility] MED[facility]INE [address] [place] [address] Mary Rod MD [address] [place] [address] 05/15/2025 9:30 AM EST Office Visit [facility] OPTOMETRY [address] [place] [address] Tarka, Tonya, OD [address] [place] [address] documented as of this encounter Goals Goal [...] documented as of this encounter Care Teams Shafting Worker Relationship Specialty Start Date End Date Mary Rod MD [address] [place] [address] PCP - General Family Medicine 02/07/22 Tequila MCCURDYA 11/16/24 01/15/25 documented as of this encounter
--- OUTSIDE RECORDS SUMMARY | 2025-02-16 12:19 | XMS_ITS | Encounter Summary ---
Author Organization [employer] Address [address] [place] [address] 7t [place] [address] Care Team Providers Care Home Fire Alarm Installer Name Role Phone Mary Rod MD Primary Care Provide r Encounter Details Date Type Department Care Team (Late Contact Info) Description 11/12/2022 [facility] [employer] Management [address] [place], [place] [phone] Mary Rod MD [address] [place] [address] Social History Tobacco Use Types Packs/Day Years [...] Description 03/10/2025 9:45 AM EDT Office Visit [facility] MED[facility]INE [address] [place] [address] Mary Rod MD [address] [place] [address] 05/15/2025 9:30 AM EST Office Visit [facility] OPTOMETRY [address] [place], [place] [phone] Tonya Brennan, OD [address] [place] [address] documented as of this encounter Goals Goal [...] documented as of this encounter Care Teams Home Fire Alarm Installer Relationship Specialty Start Date End Date Mary Rod MD [address] [place] [address] PCP - General Family Medicine 02/07/22 [facility] 11/16/24 01/15/25 documented as of this encounter
--- OUTSIDE RECORDS SUMMARY | 2025-02-16 12:19 | XMS_ITS | Encounter Summary ---
Author Organization [employer] Address [address] [facility] 7t [place] [address] Care Team Providers Care Global Vp Creative + Content Marketing Name Role Phone Mary Rod MD Primary Care Provide r Encounter Details Date Type Department Care Team (Late st Contact Info) Description 03/24/2023 Abstract [facility] MED[facility] [address] [place], [place] [phone] Tonia Cardoza Social History Tobacco Use Types [...] 9:45 AM EDT Office Visit [facility] [address] [place] [address] Mary Rod MD [address] [place] [address] 05/15/2025 9:30 AM EST Office Visit [facility] OPTOMETRY [address] [place] [address] TarkaTonya, OD [address] [place] [address] documented as of this encounter Goals Goal [...] documented as of this encounter Care Teams Global Vp Creative + Content Marketing Relationship Specialty Start Date End Date Mary Rod MD [address] [place] [address] PCP - General Family Medicine 02/07/22 [facility] 11/16/24 01/15/25 documented as of this encounter
== END 2025-02-16 11:38 | disposition home or self-care (01) ==
LOC: HO.HGI 10:43
PROVIDERS: PCP Internal Medicine; Visit Provider Nurse Practitioner
DX: E03.9 Hypothyroidism, unspecified (principal); R79.89 Other specified abnormal findings of blood chemistry; R13.11 Dysphagia, oral phase; K59.04 Chronic idiopathic constipation; R10.31 Right lower quadrant pain; K21.9 Gastro-esophageal reflux disease without esophagitis; R13.10 Dysphagia, unspecified
CPT/HCPCS: 99214

== ENCOUNTER 2025-03-16 10:53 | Outpatient (AMB) | payer OTHER, SELFPAY ==
[2025-03-16 10:57] VITALS: BP 112/69; PULSE 87; BMI 27.7
--- NOTE | 2025-03-16 10:57 | A.OFFVIS_ITS ---
Vital Signs 03/16/25 10:57 Height 5 ft Weight 141 lb 15.643 oz BMI 27.7 BP 112/69 Blood Pressure Location Rt brachial Position Sitting Pulse 87 Intake Visit Reasons: 2 wk Intake Note: Hayley presents in follow up of labs. CC: Patient reports abd pain sometimes. Denies other GI symptoms. She states that she has been very dizzy and forgetful. Crew Supervisor Required: Yes Accompanied by: Self / Same As Patient Allergies No Known Allergies (No Known Allergies*) Allergy (Verified 03/16/25 11:10) HPI HPI 2 wk: Details: Assessment & Plan (1) Hypothyroidism: Code(s): E03.9 - Hypothyroidism, unspecified Category: Medical Qualifiers: Hypothyroidism type: acquired Qualified Code(s): E03.9 - Hypothyroidism, unspecified (2) Elevated TSH: Code(s): R79.89 - Other specified abnormal findings of blood chemistry Category: Medical (3) Oral phase dysphagia: Comment: Per 2020 modified barium swallow and speech therapy eval patient should be on. Diet and thickened liquids Code(s): R13.11 - Dysphagia, oral phase Category: Medical (4) Chronic idiopathic constipation: Code(s): K59.04 - Chronic idiopathic constipation Category: Medical (5) Abdominal pain: Code(s): R10.9 - Unspecified abdominal pain Category: Medical Qualifiers: Abdominal location: right lower quadrant Qualified Code(s): R10.31 - Right lower quadrant pain (6) GERD (gastroesophageal reflux disease): Code(s): K21.9 - Gastro-esophageal reflux disease without esophagitis Category: Medical (7) Dysphagia: Comment: . HE EGD 09/2019 Esophagus: Tortuous esophagus with increased tertiary contractions without stricture or ring. GE junction at 34 cms. No esophagitis or Carrasquillo s. Stomach: Maurice en Y gastric bypass status. Gastric remnant from 34 to 36 cms. Normal anastomosis without ulcers. Mild gastric erythema. Biopsies were obtained. BARIUM SWALLOW 09/2020 IMPRESSION: 1. No aspiration or laryngeal penetration. 2. See speech pathologist report for further assessment and recommendation. Code(s): R13.10 - Dysphagia, unspecified Category: Medical Plan Upon investigating her multiple vague complaints I discovered that her TSH was extremely high at 12 with her free T4 extremely low. Globally, all of this could be contributing to her wide variety of symptoms. However, I let her know that we need to repeat the thyroid and add some additional tests before we decide for sure that this is what is happening. It is also possible that this is a lab error or that her body had an increased demand for thyroid secondary to a viral illness etc.. She is agreeable to going to the lab today to repeat these tests. Depending on their results, I will decide if I need to coordinate with her primary care provider. It appears that she had a thyroid study in terms of a CAT scan/ultrasound last year and I will reorder this just to see if there is any changes in the gland. He also complaining of dysphagia, but this has been a longstanding complaint since 2020. At that time it was determined that this was a neurol ogic/coordination problem via modified barium swallow and speech therapy and the patient was advised to do thickened liquids and be on a puree/soft diet. I explained to her that this is not a condition that we can fix and I do not feel that this is related to any potential thyroid problems although I suppose it is always possible. She says that she is continuing to have liquids when she eats and he is generally following a pureed diet. Her GI regimen consists of:opantoprazole 40 mg twice a day, metoclopramide 10 mg 4 times a day, Creon 2 caps twice a day, lactulose as needed for constipation, bisacodyl 3 tabs as needed for constipation, Linzess 290 micro g, simethicone 4 times a day as needed (She presents today saying she has been very unwell and has multiple complaints, some related directly to the GI system and others not. She says she has been having upper abdominal pain and bloating and isn't moving her bowels very well. She also has an extremely poor appetite related to the pain as it tends to worsen when she eats. However she is also complaining of headaches, severe dizziness that has a affected her gait and cause multiple falls, spontaneous bruising without injury, extreme fatigue and malaise, and nonhealing wounds mostly from severe cracks on her feet due to diabetic calluses and skin disease. She endorses severe shortness of breath along with swelling of her lower extremities and difficulty urinating. She is also complaining of severe insomnia despite using zolpidem.) Return office visit in 2 weeks Orders: Orders TSH reflex Free T4 Today E03.9 - Hypothyroidism, unspecified, R79.89 - Other specified abnormal findings of blood chemistry Thyroid Peroxidase Antibodies Today E03.9 - Hypothyroidism, unspecified, R79.89 - Other specified abnormal findings of blood chemistry US thyroid Today E03.9 - Hypothyroidism, unspecified, R79.89 - Other specified abnormal findings of blood chemistry LABS: Laboratory Tests 02/07/25 02/16/25 11:02 12:12 TSH 12.52 H 11.88 H Free T4 0.66 L 0.65 L Thyroid Peroxidase Ab 1 ULTRASOUND THYROID 04/19/2025 TODAY'S VISIT [facility] Medical History Transaminitis Dysuria Dilated cbd, acquired Mural thickening of small intestine Abdominal pain Myocardial infarction Left hip pain Sacroiliac joint pain Elevated liver enzymes Right knee pain Left lumbar radiculitis Lumbago with sciatica Sepsis Right anterior knee pain Nausea and vomiting Candidiasis of mouth and esophagus Medication monitoring encounter Abnormal findings on diagnostic imaging of musculoskeletal system Asthma ANGIE (obstructive sleep apnea) Diabetes Esophageal dysmotilities Esophageal candidiasis Pneumonia Cystitis Recurrent UTI (urinary tract infection) Vitamin D deficiency Hypothyroidism Osteoporosis B12 deficiency Iron deficiency anemia IBS (irritable bowel syndrome) Surgical History H/O hand surgery H/O heart surgery Hx of gastric bypass History of esophagogastroduodenoscopy (EGD) Hx of colonoscopy History of arthroscopy of left shoulder Family History Father No problems noted. 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 Patient Tobacco Use Status: Never used Tobacco Advance Directives Date on File: 11/12/24 service: No Current occupational status: disabled Review of Systems Const Denies fatigue, Denies fever(s), Reports frequent falls, Reports headache(s), Denies night sweats, Denies poor appetite and Denies weight loss ENT Reports Normal hearing present, Denies dental pain, Denies dysphagia, Reports dizziness, Reports headache(s), Denies hearing loss, Denies mouth pain, Denies odynophagia, Reports disequilibrium, Denies throat swelling, Denies tongue swelling and Reports other (Dentition adequate) Card Reports leg edema Resp Reports no additional complaints GI Details: Denies abdominal pain, Denies melena, Reports bloating, Denies hematochezia, Reports constipation, Denies GI cramping, Denies dysphagia, Denies excessive flatus, Reports early satiety, Reports heartburn, Denies diarrhea, Denies nausea, Denies odynophagia, Denies vomiting and Denies hematemesis Musc Reports myalgias Skin/Breast Details: Cracked lesions on heels Reports dry skin, Denies pruritus, Denies lesions, Denies rash and Denies jaundice Neuro Reports Normal hearing present, Denies Abnormal speech present, Reports dizziness, Reports frequent falls, Reports headache(s) and Reports disequilibrium Psych Reports anxiety Endo Denies fatigue Aller/Immun Denies throat swelling and Denies tongue swelling Physical Exam Vital Signs: Last Vital Signs Pulse 87 03/16/25 10:57 BP 112/69 03/16/25 10:57 BMI result Body Mass Index 27.7 Const General: cooperative, no acute distress, well developed and well groomed Nutritional Appearance: well nourished and overweight Orientation/consciousness: oriented to person, oriented to place and oriented to time Limitations: language barrier HEENT Head: Yes normocephalic and Yes atraumatic Eyes General: appearance normal, both eyes and all related structures Pupils: Equal, round and reactive pupils present Neck Neck: Yes normal visual inspection and Yes no lymphadenopathy Thyroid: Thyroid normal Resp Effort & Inspection: normal respiratory effort and able to speak in complete sentences Auscultation: clear to auscultation bilaterally Cardio Rate: regular rate Rhythm: regular rhythm Heart sounds: Normal, physiologic split S2 sound present Peripheral pulses: radial pulses present and posterior tibial pulses present GI Inspection: No distended, No Abdominal panniculus present and Yes obesity Palpation (GI): Soft to palpation, nontender, no guarding, not rigid and No hepatosplenomegaly present Percussion: Yes normal to percussion Auscultation: normal bowel sounds Rectal Exam - Female: deferred Skin General skin exam: no rashes or lesions noted, turgor normal, skin not dry, no jaundice, No spider nevi and no striae Rashes: no rashes Nails: normal Neuro General: oriented to person, oriented to place and oriented to time Cranial nerves: Yes Equal, round and reactive pupils present and Yes Normal h earing present Speech: No Abnormal speech present Extrem General: Yes normal to inspection, No clubbing, No cyanosis and Yes edema Psych Appearance: grossly normal and well kempt Mental Status: mental status grossly normal Speech and movement: Normal speech and movement present Affect: normal affect Attitude: cooperative Thought process: Normal thought process present and not confabulating Thought content: Normal thought content present Insight: Fair insight present (Psych) and Limited insight present (Psych) Judgement: Fair judgement present (Psych) and Limited judgement present (Psych) Results Reviewed Results Reviewed: Laboratory Tests 02/07/25 02/16/25 11:02 12:12 TSH 12.52 H 11.88 H Free T4 0.66 L 0.65 L Thyroid Peroxidase Ab 1 Assessment & Plan Assessment & Plan (1) Hypothyroidism: Code(s): E03.9 - Hypothyroidism, unspecified Category: Medical Qualifiers: Hypothyroidism type: acquired Qualified Code(s): E03.9 - Hypothyroidism, unspecified (2) Chronic idiopathic constipation: Code(s): K59.04 - Chronic idiopathic constipation Category: Medical (3) VAZQUEZ (nonalcoholic steatohepatitis): Comment: BASELINE LABS 03/13/22 Plt Count 258 Estimated GFR > 60 Ferritin 43 Total Bilirubin 0.8 AST 179 H ALT 108 H Alkaline Phosphatase 106 D 04/16/22 Plt Count 267 Hemoglobin A1c % 6.2 Ferritin 21 Total Bilirubin 0.5 GGT 149 H AST 71 H ALT 58 H Anti-Mitochondrial Ab NEGATIVE Anti-Smooth Muscle Ab <20 Hepatitis A IgM Ab Nonreactive Hep Bs Antigen Negative Hep Bs Antibody NONREACTIVE Hep B Core Total Ab Nonreactive Hepatitis C Ab (EIA) Nonreactive HIV 1&2 Ab/P24 Ag 4thGn Nonreactive She does not drink ETOH ULTRASOUND THE ABDOMEN WITH ELASTOGRAPHY (F0-F1) Laboratory Tests 09/30/2503/18/25 10:5908:24 Estimated GFR > 60 Ferritin 304 H Total Bilirubin 0.5 Direct Bilirubin 0.2 AST 403 H ALT 368 H Alkaline Phosphatase 104 Lactate Dehydrogenase 527 H Amylase 61 Lipase 18 ZEINAB Screen POSITIVE A Hepatitis A IgM Ab Nonreactive Hep Bs Antigen Negative Hep Bs Antibody NONREACTIVE Hep B Core Total Ab Nonreactive Hepatitis C Ab (EIA) Nonreactive Monoscreen Negative HIV 1&2 Ab/P24 Ag 4thGn Nonreactive ULTRASOUND OF THE ABDOMEN 02/19/23 IMPRESSION: 1. There is generalized increase in hepatic echotexture, consistent with fatty infiltration or hepatocellular disease. Please correlate clinically. No focal hepatic mass or intrahepatic biliary dilatation is seen. 2. The gallbladder is surgically absent. 3. Technically limited ultrasound examination of the pancreas and abdominal great vessels. Code(s): K75.81 - Nonalcoholic steatohepatitis (VAZQUEZ) Category: Medical Plan [place] #[place] Her current GI regimen consists of pantoprazole 40 mg twice a day, metoclopramide 10 mg 4 times a day, Creon 2 caps twice a day, lactulose as needed for constipation, bisacodyl 3 tabs as needed for constipation, Linzess 290 micro g, simethicone 4 times a day as needed . I had increased her thyroid medication based on lab results and multiple vague complaints presented at the last visit. (She presents today saying she has been very unwell and has multiple complaints, some related directly to the GI system and others not. She says she has been having upper abdominal pain and bloating and isn't moving her bowels very well. She also has an extremely poor appetite related to the pain as it tends to worsen when she eats.However she is also complaining of headaches, severe dizziness that has a affected her gait and cause multiple falls, spontaneous bruising without injury, extreme fatigue and malaise, and nonhealing wounds mostly from severe cracks on her feet due to diabetic calluses and skin disease. She endorses severe shortness of breath along with swelling of her lower extremities and difficulty urinating. She is also complaining of severe insomnia despite using zolpidem.) She received the increase thyroid of 150 micro g and started taking it immediately approximately a month ago. Since then she is moving her bowels better, has more energy and is starting to feel an improvement in her general vague complaints. However, she continues to have headaches and dizziness which I do not think are related to her thyroid situation. She describes a feeling of pain and tenseness at the base of the skull that likely is musculoskeletal. I uncovered the thyroid problem because her constipation had been increasingly difficult to treat and this is a common underlying cause. Apparently she had been on the same dose of thyroid medicines for many years and it does not appear that her blood work was checked to confirm efficacy. I will continue to titrate her dose, and ask her to go to the lab today and repeat the thyroid test. So far she has not had an improvement in her edema of her legs. However she has run out of her Lasix and she is uncertain who prescribes it. Apparently she sees a firepot operator and tender in [place] but will be transitioning to our practice. I advise her she should probably call the cardiology practice in [place] and see if they will extend her prescription until she can see our service. Return office visit in 6 weeks Orders: Orders TSH reflex Free T4 Today E03.9 - Hypothyroidism, unspecified Medications: Refilled imipramine HCl 20 mg (2 x 10 mg) PO BEDTIME 60 tabs 3RF 30 days R20.0 - Anesthesia of skin, R20.2 - Paresthesia of skin linaclotide (Linzess) 290 mcg PO DAILY 90 caps 0RF 90 days nxhban-pxmrwfja-sraydab 24,000-76,000 -120,000 unit (Creon) 2 caps PO BID 60 caps 6RF metoclopramide HCl 10 mg PO QID 120 tabs 6RF K31.84 - Gastroparesis pantoprazole 40 mg PO BID@0630,1630 180 tabs 1RF simethicone (Gas Relief (simethicone)) 180 mg PO QID 120 ea 2RF Coding Level of Care Code Est Pt Level 3 (46845) Diagnoses Acquired hypothyroidism E03.9 Hypothyroidism type: acquired Chronic idiopathic constipation K59.04 VAZQUEZ (nonalcoholic steatohepatitis) K75.81
--- OUTSIDE RECORDS SUMMARY | 2025-03-16 12:48 | XMS_ITS | Encounter Summary ---
Author Organization [employer] Address [address] [place] [address] Care Team Providers Care Partition Assembly Machine Operator Name Role Phone Mary Rod MD Primary Care Provide r Encounter Details Date Type Department Care Team ([facility] st Contact Info) Description 03/25/2023 Orders Only [facility] [address] [place], [place] [phone] ProviderLinsey MD Social History Tobacco Use Types [...] Care Team (Late st Contact Info) Description 03/16/2025 1:15 PM EDT Office Visit [facility] OPTOMET[facility] [address] [place] [address] Tonya Brennan, OD [address] [place] [address] Arrived 05/15/2025 9:30 AM EST Office Visit [facility] [address] [place] [address] Tonya Brennan, OD [address] [place] [address] documented as of this encounter Goals Goal [...] documented as of this encounter Care Teams Partition Assembly Machine Operator Relationship Specialty Start Date End Date Mary Rod MD [address] [place] [address] PCP - General Family Medicine 02/07/22 Tequila MACIAS 11/16/24 01/15/25 documented as of this encounter
--- OUTSIDE RECORDS SUMMARY | 2025-03-16 12:48 | XMS_ITS | Clinical Summary ---
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 Active Blood Pressure Monitoring (Omron 3 Series [...] by mouth Once per day. Active pancrelipase, Wue-Awdy-Yhku, (Creon) [id number] units capsuleIndication s:Pancreatic insufficiency TAKE 1 CAPSULE BY MOUTH FOUR TIMES DAILY WITH FOOD AND 1 CAPSULE WITH SNACKS DO NOT BREAK, CRUSH, DISSOLVE OR CHEW 120 capsule 3 Active lidocaine (Xylocaine) 5 % ointmentIndicatio ns:Closed fracture of distal end of left radius, unspecified fracture morphology, initial encounter Apply topically if needed for mild pain. 50 g 1 024 2024 Active Brilinta 90 MG tabletIndications :Essential hypertension TAKE 1 TABLET BY MOUTH TWICE DAILY IN THE MORNING AND IN THE EVENING 60 tablet 3 025 Active Trulicity 0.75 MG/0.5ML solution auto-injector INJECT ONE PEN (=0.75MG) SUBCUTANEOUSLY ONCE A WEEK DIRECTED 6 mL 3 025 Active aspirin (Aspirin Low Dose) 81 MG EC tablet TAKE 1 TABLET BY MOUTH EVERY MORNING 90 tablet 3 025 Active Multiple Vitamins-Minerals (CertaVite/Antiox idants) tablet TAKE 1 TABLET BY MOUTH EVERY MORNING WITH FOOD 90 tablet 3 025 Active rosuvastatin (Crestor) 40 MG tablet TAKE 1 TABLET BY MOUTH AT BEDTIME 90 tablet 3 025 Active sucralfate (Carafate) 1 g tabletIndications :Epigastric pain TAKE 1 TABLET BY MOUTH FOUR TIMES DAILY BEFORE MEALS AND AT BEDTIME 120 tablet 025 Active Diclofenac Sodium 1 % gelIndications:Le ft hand pain APPLY 1 APPLICATION TOPICALLY TO AFFECTED AREA(S) EVERY TWELVE HOURS NEEDED 100 g 1 025 Active nystatin (Mycostatin) 630474 UNIT/GM powderIndications :Intertrigo APPLY TO THE AFFECTED AREA(S) TOPICALLY TWICE DAILY 60 g 1 025 Active montelukast (Singulair) 10 MG tablet TAKE 1 TABLET BY MOUTH AT BEDTIME 30 tablet 3 025 Active Farxiga 10 MGIndications:Typ e 2 diabetes mellitus with chronic kidney disease, without long-term current use of insulin, unspecified CKD stage (HCC) TAKE 1 TABLET BY MOUTH EVERY MORNING 30 tablet 2 Active gabapentin (Neurontin) 600 MG tabletIndications :Spinal stenosis of lumbar region, unspecified whether neurogenic claudication present TAKE 1 TABLET BY MOUTH THREE TIMES DAILY IN THE MORNING, AT NOON, AND AT BEDTIME 90 tablet 2 Active metFORMIN XR (Glucophage-XR) 500 MG 24 hr tablet TAKE 1 TABLET BY MOUTH TWICE DAILY IN THE MORNING AND IN THE EVENING WITH FOOD 180 tablet 2 Active levothyroxine (Synthroid, Levoxyl) 125 MCG tabletIndications :Acquired hypothyroidism TAKE 1 TABLET BY MOUTH EVERY MORNING BEFORE BREAKFAST 30 tablet 2 Active topiramate (Topamax) 25 MG tablet TAKE 1 TABLET BY MOUTH EVERY EVENING 30 tablet 2 Active FREESTYLE LITE test stripIndications: Diabetic nephropathy associated with type 2 diabetes mellitus (HCC) Use to test blood sugar 1 times daily 100 each 12 025 2025 Active Lancets miscIndications:D iabetic nephropathy associated with type 2 diabetes mellitus (HCC) Use to test blood sugar 1 times daily 100 each 2 Active Alcohol Swabs 70 % padsIndications:D iabetic nephropathy associated with type 2 diabetes mellitus (HCC) Use to test blood sugar 1 times daily 100 each Active Blood Glucose Monitoring Suppl (FreeStyle [place] Lite) w/Device kitIndications: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 (HCC) Use to test blood sugar 1 times daily 1 kit Active metoprolol succinate XL (Toprol-XL) 50 MG 24 hr tabletIndications :Primary hypertension Take 0.5 tablets (25 mg) by mouth in the morning. 30 tablet 11 Active meclizine (Antivert) 25 MG tabletIndications :Vertigo Take 1 tablet (25 mg) by mouth if needed in the morning, at noon, and at bedtime for dizziness for up to 10 days. 30 tablet 025 2024 Active zolpidem (Ambien) 10 MG tablet Take 1 tablet by mouth at bedtime. 023 2024 Discontinued Active Problems Problem Noted Date Diagnosed Date Abnormal CT scan 03/10/2025 Abnormal transaminases 03/10/2025 Transaminitis 03/10/2025 Anastomotic ulcer 03/10/2025 Atypical chest pain 03/10/2025 Candidiasis of mouth and esophagus 03/10/2025 Carpal tunnel syndrome of left wrist 03/10/2025 Chronic idiopathic constipation 03/10/2025 Chronic UTI (urinary tract infection) 03/10/2025 Overview (03/10/2025): She has not had any urinary symptoms and urine appears clear. She reports taking Methenamine and Estradiol She has no fever or chills Dilated cbd, acquired 03/10/2025 Dizziness 03/10/2025 DRUJ (distal radioulnar joint) instability, post -traumatic 03/10/2025 Current use of anticoagulant therapy 03/10/2025 Elevated liver enzymes 03/10/2025 Fall 03/10/2025 Fever 03/10/2025 Fracture of wrist 03/10/2025 Headache 03/10/2025 Intractable nausea and vomiting 03/10/2025 Left lumbar radiculitis 03/10/2025 Leukocytosis 03/10/2025 Malfunction of peripheral inserted central krala ter 03/10/2025 Mural thickening of small intestine 03/10/2025 Nondisplaced fracture of left ulna styloid proce ss, sequela 03/10/2025 Numbness and tingling in left hand 03/10/2025 Piriformis syndrome of left side 03/10/2025 Poor fluid intake 03/10/2025 Radiculopathy of cervical spine 03/10/2025 Right anterior knee pain 03/10/2025 Sacroiliac joint dysfunction 03/10/2025 Sacroiliac joint pain 03/10/2025 Sepsis (CMS/HCC) 03/10/2025 Toxic encephalopathy 03/10/2025 Overview (03/10/2025): Unfortunately,urine likely cause of encephalopathy E coli ESBL concern She has possible sensitivity to merepenem Weakness 03/10/2025 Abnormal findings on diagnos tic imaging of musculoskeletal system 03/10/2025 Hypothyroidism 03/10/2025 Medication monitoring encounter 03/10/2025 Overview (03/10/2025): Tramadol pain contract [id number]/2022 IBS (irritable bowel syndrome) 03/10/2025 Slow transit constipation 03/10/2025 Esophageal dysmotilities 03/10/2025 GERD (gastroesophageal reflux disease) Recurrent falls while walking 03/10/2025 Acute hyperkalemia 03/10/2025 Chronic left shoulder pain 03/10/2025 Dysuria 03/10/2025 Overview (03/10/2025): There is concern over recurrent persistent UTI She has no urinary obstruction seen She has appointment with Urology VAZQUEZ (nonalcoholic steatohepatitis) 03/10/2025 Overview (03/10/2025): HER liver enzymes are not terribly deranged this can be monitored by her primary care provider at 6 month intervals and she can be return to our service for surveillance if the transaminases become greater than twice the upper limit of normal BASELINE LABS 03/13/22 Plt Count 258 Estimated GFR > 60 Ferritin 43 Total Bilirubin 0.8 AST 179 H ALT 108 H Alkaline Phosphatase 106 D 04/16/22 Plt Count 267 Hemoglobin A1c % 6.2 Ferritin 21 Total Bilirubin 0.5 GGT 149 H AST 71 H ALT 58 H Anti-Mitochondrial Ab NEGATIVE Anti-Smooth Muscle Ab <20 Hepatitis A IgM Ab Nonreactive Hep Bs Antigen Negative Hep Bs Antibody NONREACTIVE Hep B Core Total Ab Nonreactive Hepatitis C Ab (EIA) Nonreactive HIV 1&2 Ab/P24 Ag 4thGn Nonreactive She does not drink ETOH ULTRASOUND THE ABDOMEN WITH ELASTOGRAPHY (F0-F1) Laboratory Tests 09/30/2503/18/25 10:5908:24 Estimated GFR > 60 Ferritin 304 H Total Bilirubin 0.5 Direct Bilirubin 0.2 AST 403 H ALT 368 H Alkaline Phosphatase 104 Lactate Dehydrogenase 527 H Amylase 61 Lipase 18 ZEINAB Screen POSITIVE A Hepatitis A IgM Ab Nonreactive Hep Bs Antigen Negative Hep Bs Antibody NONREACTIVE Hep B Core Total Ab Nonreactive Hepatitis C Ab (EIA) Nonreactive Monoscreen Negative HIV 1&2 Ab/P24 Ag 4thGn Nonreactive ULTRASOUND OF THE ABDOMEN 02/19/23 IMPRESSION: 1. There is generalized increase in hepatic echotexture, consistent with fatty infiltration or hepatocellular disease. Please correlate clinically. No focal hepatic mass or intrahepatic biliary dilatation is seen. 2. The gallbladder is surgically absent. 3. Technically limited ultrasound examination of the pancreas and abdominal great vessels. Myocardial infarction 03/10/2025 Overview (03/10/2025): S/P Stent, DOS: 08/2023 Non-ST elevated myocardial infarction (non-STEMI ) 03/10/2025 ANGIE (obstructive sleep apnea) 03/10/2025 Lumbar spondylosis 03/10/2025 Coccygodynia 03/10/2025 Left hip pain 03/10/2025 Lumbago with sciatica 03/10/2025 Lumbar back pain 03/10/2025 Vertigo 03/10/2025 Assessment & Plan (03/10/2025 1:08 PM EDT): Advised to maintain hydration change positions slowly I will prescribe meclizine to be taken as needed and I will refer her for PT for vestibular therapy Pre-syncope 03/10/2025 Assessment & Plan (03/10/2025 1:09 PM EDT): Cardiology referral in Palpitations 03/10/2025 Assessment & Plan (03/10/2025 1:07 PM EDT): Cardiology referral in Encounter for screening mamm ogram for malignant neoplasm of breast 03/10/2025 Frequent falls 12/08/2024 Assessment & Plan (12/08/2024 [...] with specialist Coronary artery disease invo lving [facility] coronary artery of [facility] heart 05/20/2024 Assessment & Plan (03/10/2025 1:07 PM EDT): I refer patient to cardiology, she was being seen at [facility] but would like to be referred at the [facility] due to transportation issues Ecchymoses, spontaneous 02/02/2024 Assessment & Plan (02/02/2024 [...] Duoneb NBZ but advise to see her customer service security officer if needed -has apt w net software architect in 12/2023 Hyperkalemia 09/30/2023 Assessment & Plan [...] of both feet 06/12/2023 Enlarged thyroid 06/12/2023 Chronic kidney disease, stage 2 (mild) 3 Edema 01/26/2023 Type 2 diabetes mellitus 01/26/2023 Acute kidney injury superimposed on CKD 01/20/20 Assessment & Plan (01/19/2023 4:49 PM EDT): maintain good control of blood pressure and glucose Do not take NSAIDs Drink plenty of water Acute nontraumatic kidney injury 01/19/2023 Overview (03/10/2025): Last Assessment & Plan: maintain good control [...] EDT): I will generate prescription for recliner Degeneration of intervertebral disc of lumbar re gion 10/28/2022 Overview (03/10/2025): Last Assessment & Plan: I will generate prescription for recliner Colon [...] tramadol and gabapentin I added today acetaminophen Disorder of intervertebral disc of lumbar spine 07/15/2022 Overview (03/10/2025): S/p MILD procedure 06/2022 Last Assessment & Plan: I will generate prescription for recliner C/w tramadol C/w acetaminophen C/w lidocaine patches Abnormal magnetic resonance imaging study 2021 Obstructive sleep apnea syndrome 08/13/2021 Diffuse spasm of esophagus 06/25/2021 Gastroparesis 06/25/2021 Stage 3a chronic kidney disease (CMS/HCC) 2020 Assessment & Plan (12/08/2024 3:27 PM EDT): [...] specialist Diabetes mellitus 12/11/2011 Assessment & Plan (03/10/2025 1:08 PM EDT): Diabetes is: controlled - Lab Results Component Value Date HGBA1C 6.7 (H) 02/07/2025 HGBA1C 6.2 (A) 08/12/2024 HGBA1C 6.2 (A) 01/07/2024 - Lab Results Component Value Date MICROALBUR 57.0 12/09/2024 CREATININE 1.00 02/07/2025 -Changes: None - Diabetic eye exam: Up-to-date - Diabetic foot exam: Referral in - Continue lifestyle modifications - Continue current medications - Follow up: 3 months Assessment & Plan (12/08/2024 3:26 PM EDT): [...] joint pain 12/11/2011 Vitamin B deficiency 12/11/2011 Adult failure to thrive 12/11/2011 Resolved Problems Problem Noted Date Diagnosed Date Resolved Date Glaucoma 05/22/2014 05/17/2024 Nonproliferative diabetic retinopathy 08/11/2013 05/17/2024 Encounters Date Type Department Care Team Description 03/16/2025 Travel 03/16/[address] [address] Mary Rod MD Type 2 diabetes mellitus with chronic kidney disease, without long-term current use of insulin, unspecified CKD stage ([facility]) 03/10/2025 9:45 AM EDT Office Visit [address] [address] Mary Rod MD Coronary artery disease involving [facility] coronary artery of [facility] heart, unspecified whether angina present (Primary Dx); Type 2 diabetes mellitus with chronic kidney disease, without long-term current use of insulin, unspecified CKD stage ([facility]/HCC); Vertigo; Pre-syncope; Palpitations; Encounter for screening mammogram for malignant neoplasm of breast; Encounter for immunization 03/10/2025 Travel 03/08/[address] [address] Mary Rod MD chart prep 03/01/2025 Patient Outreach [address] [address] Mary Rod MD Pre-visit Planning (SDOH screening negative and tobacco screening negative) 02/16/2025 Orders Only GENERIC EXTERNAL DATA DEPARTMENT Provider, Generic External Data 02/07/2025 Orders Only GENERIC EXTERNAL DATA DEPARTMENT Provider, Generic External Data 12/27/2024 Orders Only [facility] [address] [place] [address] Mary Rod MD Primary hypertension 12/27/2024 Telephone [facility] [address] [place] [address] Mary Rod MD Call Back Request 12/22/2024 Refill [facility] [address] [place], [place] [phone] Mary Rod MD Spinal stenosis of lumbar region, unspecified whether neurogenic claudication present; Acquired hypothyroidism from Last 3 Months Immunizations Immunization Administration Dates Next Due Diphtheria antitoxin 04/22/2004 HPV, Quadrivalent 05/16/2009,01/31/2008,07/28/19 07 Hep B, adult 12/08/2024 Influenza High-dose Quadriva lent Preservative Free 03/18/2023,03/10/2022,03/06/2020 Influenza Quadrivalent Adjuvanted 03/04/2021 Influenza injectable quadriv alent IIV4 with preservative 03/08/2015 Influenza injectable quadriv alent preservative free 03/19/2021,03/29/2019,03/30/2018,04/30 Influenza, High Dose Seasona l, Preservative Free 03/10/2025,08/18/2024,03/03/2017 Influenza, IIV3, injectable 03/20/2014, 7 Influenza, Injectable, MDCK, preservative free 08/23/2015 Influenza, Split (incl. sonia fied surface antigen) 03/09/2013 Influenza, Unspecified 03/10/2022,2019,03/20/2014,04/07 Influenza, seasonal, injecta ble, preservative free 04/05/2012 Novel [id number] 05/14/2016 Pfizer Covid-19 Vaccine 12+ 06/18/2023 Pneumococcal [...] Answer Date Recorded Patient Health Questionnaire-9 Score 8 03/10/2025 Patient Health Questionnaire-9 Score 8 03/10/2025 Last PHQ-9: Questionnaire Data Not on file 0 03/10/2025 Housing Stability Answer Date Recorded What is your housing situation today? I have luisamega caicedo 03/01/[address] you li ve. Do you have problems with any of the following? None of the above 03/01/2025 Food Insecurity Answer Date Recorded Within the past 12 months, y ou worried that your food would run out before you got money to buy more: Never True 03/01/2025 Within the past 12 months,th e food you bought just didn't last and you didn't have enough money to get more: Never True Transportation Answer Date Recorded In the past 12 months, has l ack of transportation kept you from medical appts, meetings, work or from getting things needed for daily living? Yes, it has kept me from medical appointments or getting medications. 03/10/2025 Utilities Answer Date Recorded In the past 12 months, has t he electric, gas, oil or water company threatened to shut off services in your home? No 03/01/2025 Depression Answer Date Recorded Patient Health Questionnaire-2 Score 2 03/10/2025 Internet Access Answer Date Recorded Internet Access Q1 No 03/10/2025 Internet Access Q2 I cannot afford it 03/10/2025 Comments Unknown Sex and Gender Information Value Date Recorded Sex Assigned at Female 04/14/2022 10:15 AM EDT Legal Sex Female 10:15 AM EDT Gender Identity Female 04/14/2022 10:15 AM EDT Sexual Orientation Choose not to disclose 2021 10:15 AM EDT Last Filed Vital Signs Vital Sign Reading Time Taken Comments Blood Pressure 122/78 03/10/2025 9:32 AM EDT Pulse 90 03/10/2025 9:32 AM EDT Temperature 36.3 C (97.4 F) 03/10/2025 9:32 AM EDT Respiratory Rate 18 03/10/2025 9:32 AM EDT Oxygen Saturation 95% 03/10/2025 9:32 AM EDT Inhaled Oxygen Concentration - - Weight 64.4 kg (142 lb) 03/10/2025 9:32 AM EDT Height 152.4 cm (5') 03/10/2025 9:32 AM EDT Body Mass Index 27.73 03/10/2025 9:32 AM EDT Plan of Treatment Upcoming Encounters Date Type Department Care Team (Late st Contact Info) Description 03/16/2025 1:15 PM EDT Office Visit [facility] [address] [place] [address] Tonya Brennan, OD [address] [place] [address] Arrived 05/15/2025 9:30 AM EST Office Visit [facility] [address] [place] [address] Tonya Brennan, OD [address] [place] [address] Health Maintenance Due Date Last Done Comments CT Colonography 1951 FIT DNA/Cologuard 1950 FIT 1950 FOBT 1950 Sigmoidoscopy 1951 Diabetes: Foot Exam 11/14/1961 Alcohol/Substance Use Screening 1963 Hepatitis A Vaccines (1 of 2 - Risk 2-dose series) 11/14/1970 Hepatitis B Vaccines (2 of 3 - Risk 3-dose series) 01/05/2025 12/08/2024 Mammogram 01/08/2025 01/08/2023, 09/13, 09/26/2021, Additional history exists COVID-19 Vaccine ( season) 2025 06/18/2023, 03/21/2022, 10/08/2021, Additional history exists Diabetes: Hemoglobin A1C 08/10/2025 025, 08/12/2024, 01/07/2024, Additional history exists Eye Exam 11/10/2025 11/10/2024, 10/14, 11/10/2024, Additional history exists Tobacco Screening 12/08/2025 12/08/2024 Lipid Panel 12/09/2025 12/09/2024, 11/13, 04/19/2021, Additional history exists Depression Screening 03/10/2026 03/10/2025, 03/10/20 SDOH Screening 03/10/2026 03/10/2025 DTaP/Tdap/Td Vaccines (2 - Td or Tdap) [...] Completed 07/20/2023 Hepatitis C Screening Completed 09/30/2024 Influenza Vaccine Completed 03/10/2025, , 03/18/2023, Additional history exists HIB Vaccines Aged Out [...] Name Priority Date/Time Associated Diagnosis Comments POCT GLUCOSE Routine 03/10/2025 9:56 AM EDT Type 2 diabetes mellitus with chronic kidney disease, without long-term current use of insulin, unspecified CKD stage ([facility]) THYROID PEROXIDASE ANTIBODIES Routine 02/16/2025 12:12 PM EDT T4, FREE Routine 02/16/2025 12:12 PM EDT TSH W/REFLEX TO FT4 Routine 02/16/2025 1 2:12 PM EDT T4, FREE Routine 02/07/2025 11:02 AM EDT [...] REFLEX MICROSCOPIC Routine 02/07/2025 10:53 AM EDT LIPID PANEL, STANDARD Routine 12/09/2024 8:53 AM EDT Type 2 diabetes mellitus with chronic kidney disease, without long-term current use of insulin, unspecified CKD stage (CMS/HCC) HEPATITIS PANEL, GENERAL Routine 09/30/2024 8:24 AM EDT HM COLONOSCOPY Routine 02/16/2023 BI MAMMOGRAM SCREENING TOMOSYNTHESIS BILATERAL Routine 01/08/2023 12:20 PM EDT from Last 3 Months or Most Recently Relevant to Health Maintenance Results * (ABNORMAL) POCT Glucose (03/10/2025 9:56 AM EDT) Pathologist [facility] Glucose Blood, POC 202(A) 60 - 200 mg/dL QC Media Lot # [id number] Lot# Expiration Date Blood Capillary blood specimen / Unknown 03/10/2025 9:56 AM EDT us Mary Rivera MD POINT OF CARE TEST EN TER/EDIT ORDERABLES Final Result * (ABNORMAL) TSH with Reflex to Free T4 (02/16/2025 12:12 PM EDT) Only the most recent of2 resultswithin the time period is included. Pathologist [facility] TSH reflex Free T4 11.88(H) 0.32 - 4.0 uIU/mL [facility] 02/16/2025 12:1 2 PM EDT 02/16/2025 12:12 PM EDT us Generic External Data Provider LAB BLOOD ORDERAB LES Final Result [facility] [address] [place] [address] [phone] * Thyroid Peroxidase Antibodies (02/16/2025 12:12 PM EDT) Pathologist [facility] Thyroid Peroxidase Antibodies 1 <9 IU/mL [facility] Comment:THIS TEST WAS PERFOR MED AT:[employer] [place] [phone] HO MD 02/16/2025 12:1 2 PM EDT 02/16/2025 12:12 PM EDT Generic External Data Provider LAB BLOOD ORDERAB LES Final Result Performing Organization Address [facility]/ZIP Co de Phone Number [facility] [address] [place] [phone] [phone] * (ABNORMAL) T4, Free (02/16/2025 12:12 PM EDT) Only the most recent of2 resultswithin the time period is included. Pathologist [facility] Free T4 (Free Thyroxine) 0.65(L) 0.71 - 1.85 ng/dL [facility] 02/16/2025 12:1 2 PM EDT 02/16/2025 12:12 PM EDT Generic External Data Provider LAB BLOOD ORDERAB LES Final Result Performing Organization Address [facility] de Phone Number [facility] [address] [place] [address] [phone] * (ABNORMAL) CBC auto differential (02/07/2025 11:02 AM EDT) [facility] White Blood Count 4.3(L) 4.8 - 10.8 X10*3/uL [facility] Red Blood Count 4.32 4.20 - 5.50 X10*6/uL [facility] Hemoglobin 12.8 12.0 - 16.0 g/dl [facility] Hematocrit 41.2 37.0 - 47.0 % [facility] Mean Corpuscular Volume 95.4 80.0 - 98.0 fL [facility] Mean Corpuscular Hemoglobin 29.6 27.0 - 33.0 pg [facility] Mean Corpuscular HGB Conc 31.1 31.0 - 35.0 g/dl [facility] Red Cell Distribution Width 15.3 11.0 - 16.0 % [facility] Platelet Count 282 160 - 400 X10*3/uL [facility] Mean Platelet Volume 10.8 9.4 - 12.3 fL [facility] Neutrophils Percent Auto 49.2 45 - 73 % [facility] Imm Gran Pct Auto 0.2 0.0 - 0.4 % [facility] Lymphocytes Percent Auto 35.9 20 - 40 % [facility] Monocytes Percent Auto 11.2(H) 2 - 11 % [facility] Eosinophils Percent Auto 2.6 0 - 4 % [facility] Basophils Percent Auto 0.9 0 - 2 % [facility] NRBC Pct Auto 0.0 0.0 - 0.2 /100WBC [facility] Neutrophils Absolute Auto 2.1 2.0 - 8.3 x10*3/uL [facility] Imm Gran Abs Auto 0.01 0.00 - 0.03 X10*3/uL [facility] Lymphocytes Absolute Auto 1.5 1.2 - 4.9 X10*3/uL [facility] Monocytes Absolute Auto 0.5 0.1 - 1.2 X10*3/uL [facility] Eosinophils Absolute Auto 0.1 0.0 - 0.4 X10*3/uL [facility] Basophils Absolute Auto 0.0 0.0 - 0.2 X10*3/uL [facility] NRBC Abs Auto 0.000 0.0 - 0.012 X10*3/uL [facility] 02/07/2025 11:0 2 AM EDT 02/07/2025 11:02 AM EDT us Generic External Data Provider LAB BLOOD ORDERAB LES Final Result [facility] [address] [place] [address] [phone] * (ABNORMAL) Prothrombin Time-INR (02/07/2025 11:02 AM EDT) Prothrombin Time 9.9(L) 10.9 - 12.4 SEC [facility] INTERNATIONAL NORM RATIO 0.9 0.9 - 1.1 [facility] Comment:INTERNATIONAL NORMAL IZED RATIO (INR) REFERENCE [...] Final Result Performing Organization Address [facility] Co de Phone Number [facility] [address] [place] [phone] * B Type Natriuretic Peptide (BNP) (02/07/2025 11:02 AM EDT) B Type Natriuretic Peptide 77 <100 pg/mL [facility] 02/07/2025 11:0 2 AM EDT 02/07/2025 11:02 AM EDT Anctu External Data Provider LAB BLOOD ORDERAB LES Final Result Performing Organization Address [facility] Co de Phone Number [facility] [address] [place] [phone] * (ABNORMAL) Hemoglobin A1c (02/07/2025 11:02 AM EDT) Hemoglobin A1c 6.7(H) <6.0 % [facility] Comment:Hemoglobin A1C Refer ence Range Adults: 4.8 - 6.0 % Non diabetic: < 6.0 % Goal: < 7.0 %Additional Action Suggested: > 8.0 %Note: Hemoglobin A1c results are invalid for patients with abnormal amounts of HbF. Blood transfusions may impact the HbA1c concentration in the patient sample. Estimated Average Glucose 146 mg/dL [facility] Comment:eAG = Estimated ave rage glucose which is %A1C expressed asaverage glucose, using the formula of the J7F-EntgtmhOmlyrak Glucose study (ADAG), Diabetes Care, Vol.31,#8,Jan. 2007 02/07/2025 11:0 2 AM EDT 02/07/2025 11:02 AM EDT us Generic External Data Provider LAB BLOOD ORDERAB LES Final Result [facility] [address] [place] [address] [phone] * (ABNORMAL) Comprehensive Metabolic Panel (02/07/2025 11:02 AM EDT) Sodium 141 135 - 145 mmol/L [facility] Potassium 4.8 3.3 - 5.1 mmol/L [facility] Chloride 110(H) 96 - 108 mmol/L [facility] Carbon Dioxide 23 22 - 29 mmol/L [facility] Anion Gap 13 12 - 20 [facility] Urea Nitrogen (BUN) 12 9 - 16 mg/dL [facility] Creatinine, Serum 1.00 0.5 - 1.4 mg/dL [facility] Estimated Glomerular Filt Rate 54 [facility] Comment:Chronic Kidney Disea se: Estimated GFR < 60 mL/min/1.01e5Cnbmwu Kidney Disease: Estimated GFR < 15 mL/min/1.73m2 Glucose 75 60 - 115 mg/dL [facility] Calcium 9.2 8.4 - 10.2 mg/dL [facility] Bilirubin, Total 0.8 0.0 - 1.0 mg/dL [facility] Aspartate Amino Transferase 259(H) 5 - 31 U/L [facility] Alanine Aminotransferase 235(H) 0 - 31 U/L [facility] Total Protein 7.1 6.5 - 8.0 g/dL [facility] Albumin Level 4.2 3.5 - 5.0 g/dL [facility] Alkaline Phosphatase 119(H) 39 - 117 U/L [facility] 02/07/2025 11:0 2 AM EDT 02/07/2025 11:02 AM EDT us Generic External Data Provider LAB BLOOD ORDERAB LES Final Result [facility] [address] [place] [phone] * (ABNORMAL) Urinalysis, Complete, with Reflex to Culture (02/07/2025 10:53 AM EDT) Color Urine Dark Yellow [facility] Appearance Urine Cloudy [facility] PH 5.5 5.0 - 9.0 [facility] Glucose Urine UA >=1000(A) Negative mg/dL [facility] Urine Blood Small (1+)(A) Negative [facility] Specific [place] - Urine >=1.030(H) 1.005 - 1.025 [facility] Urine Protein 100 (2+)(A) Neg-Trace mg/dL [facility] Urine Ketones Negative Negative mg/dL [facility] Nitrite Urine Negative Negative [facility] Leukocyte Esterase Urine Negative Negative [facility] RBC Urine 6-10(A) 0 - 2 /HPF [facility] Urine WBC 0-5 0 - 5 /HPF [facility] Urine Squamous Epithelial Cell 0-2 0 - 2 /HPF [facility] Other Crystals Urine Present [facility] Comment:Calcium carbonate cr ystals noted Urine Bacteria None Seen None Seen [facility] Hyaline Casts, Urine 3-5 0 - 2 /LPF [facility] 02/07/2025 10:5 3 AM EDT 02/07/2025 11:23 AM EDT Narrative [facility] - 02/07/2025 11:58 AM EDT Urine, Clean Catch us Generic External Data Provider LAB URINE ORDERAB LES Final Result [facility] [address] [place] [address] [phone] * (ABNORMAL) Urinalysis w/reflex microscopic (02/07/2025 10:53 AM EDT) Color Urine Dark Yellow [facility] Appearance Urine Cloudy [facility] PH 5.5 5.0 - 9.0 [facility] Glucose Urine UA >=1000(A) Negative mg/dL [facility] Urine Blood Small (1+)(A) Negative [facility] Specific [place] - Urine >=1.030(H) 1.005 - 1.025 [facility] Urine Protein 100 (2+)(A) Neg-Trace mg/dL [facility] Urine Ketones Negative Negative mg/dL [facility] Nitrite Urine Negative Negative [facility] Leukocyte Esterase Urine Negative Negative [facility] 02/07/2025 10:5 3 AM EDT 02/07/2025 11:23 AM EDT Narrative [facility] - 02/07/2025 11:40 AM EDT Urine, Clean Catch us Generic External Data Provider LAB URINE ORDERAB LES Final Result [facility] [address] [place] [address] [phone] * Lipid Panel, Standard (12/09/2024 8:53 AM EDT) Triglycerides 72 <150 mg/dL [facility] Comment:Desirable Triglyceri de: less than 150 mg/dLBorderline High Triglyceride 150-199 mg/dLHigh Triglyceride: 200-499 mg/dLVery High Triglyceride: greater than or equal to 5OO mg/dL Cholesterol 113 <200 mg/dL [facility] Comment:Desirable Cholestero l: less than 200 mg/dLBorderline High Cholesterol: 200-239 mg/dLHigh Cholesterol: greater than 239 mg/dL LDL Cholesterol Calculated 51 <100 mg/dL [facility] Comment:Desirable LDL: less than 100 mg/dLNear Optimal/Above Optimal LDL: 110- 129 mg/dLBorderline High LDL: 130-159 mg/dLHigh LDL: 160-189 mg/dLVery High LDL: greater than or equal to 190 mg/dL HDL Cholesterol 48 >40 mg/dL [facility] Comment:Desirable HDL: great er than 40 mg/dL Note: This HDL assay may give artificially low results in patients with liver disease. Blood Venous blood specimen / Unknown 12/09/2024 8:53 AM EDT 12/09/2024 11:08 AM EDT us Mary Rivera MD LAB BLOOD ORDERABLES Final Result Performing Organization Address [facility] Co de Phone Number [facility] [address] [place] [phone] * Hepatitis Panel, General (09/30/2024 8:24 AM EDT) Hepatitis A IgM Nonreactive Nonreactive [facility] Comment:IgM antibodies to LZACANO V not detected; does not exclude earlyacute or recovered HAV infection. ~Hepatitis B Surface Antibody NONREACTIVE Nonreactive [facility] Comment:Nonreactive: < 8.00 mIU/mL Hepatitis B Core Antibody Nonreactive Nonreactive [facility] Hepatitis C Antibody Nonreactive Nonreactive [facility] Comment:Antibodies to HCV no t detected; does not exclude early acuteHCV infection. Hepatitis B Surface Ag Negative Negative [facility] 09/30/2024 8:24 AM EDT 09/30/2024 8:24 AM EDT us Generic External Data Provider LAB BLOOD ORDERAB LES Final Result Performing Organization Address [facility]/ZIP Co de Phone Number [facility] [address] [place] [phone] * Hm Colonoscopy (02/16/2023) us Historical Provider HEALTH MAINTENANCE Final Result * BI Mammogram Screening Tomosynthesis Bilateral (01/08/2023 12:20 PM EDT) Anatomical Region Laterality Modality Breast Bilateral Mammography 01/08/2023 12:2 0 PM EDT Narrative 01/30/2023 10:10 AM EDT [facility] [address] [place], [place] [address] Mammography Report Signed Patient: Hayley Marc MR#: [id number] : 1950 Acct:[id number] Age/Sex: 72 / F ADM Date: 01/08/23 Loc: HO.MAMMO Attending Dr: Mary Rivera MD Ordering Physician: Mary Rod MD Results: Date of Service: 01/08/23 Follow Up: Procedure(s): MM tomosynthesis screening BI Accession Number(s): [id number] cc: Mary Rod MD EXAMINATION: MM SCREENING [...] in OV> 01/30/23 1007 DD/ 1220 TD/TT: Sports Complex Attendant: Procedure Note Donotuseinterpreter, Image - 01/30/2023 [facility] [address] [place] [address] Mammography Report Signed Patient: Josselin MarcR#: [id number] : 2Acct:[id number] Age/Sex: 72 / FADM Date: 01/08/23 Loc: HO.MAMMO Attending Dr: Mary Rivera MD Ordering Physician: Mary Rodesults: Date of Service: 01/08/23Follow Up: Procedure(s): MM tomosynthesis screening BI Accession Number(s): [id number] cc: Mary Rod MD EXAMINATION: MM SCREENING [...] in OV> 01/30/23 1007 DD/ 1220 TD/TT: Sports Complex Attendant: Mary Rivera MD IMG BI PROCEDURES Kar peter Result - Final from Last 3 Months or Most Recently Relevant to Health Maintenance Insurance [facility] OPT[employer] (O D-SNP) Care Teams Ground Operations Crew Member Relationship Specialty Start Date End Date Mary Rod MD [address] [place] [address] PCP - General Family Medicine 02/07/22
--- OUTSIDE RECORDS SUMMARY | 2025-03-16 12:48 | XMS_ITS | Patient Health Record ---
Author Organization [employer] [facility] Address [address] [place] [address] Care Team Providers Care Sales Promotion Director Name Role Phone Rogelio TOWNSEND, Laurent Primary Care Provider Frank Hernandez Unavailable [phone] Charles Clemons Unavailable Unavailable Reason For Referral [...] Manage Prod Active Effexor XR Active Calcitonin ([place]) Active Fluticasone Propionate Active Colace 100 MG [...] Problem Status W/U Status Risk Notes Problem 44582304 Slow transit constipation (K59.01) Active confirmed Plan Of Treatment Future Test Test Name Order Date UPPER GI ENDOSCOPY 12/01/2012 COLONOSCOPY 12/01/2012 Insurance Providers Payer Name Payer Address Payer Phone Subscriber Number Group Number Insured Name Patient Relationship to Insured Coverage Start Date Coverage End Date [facility] [address] [place] [id number] AMARILIS ENRIQUEZ Self - patient is the insured MEDICAID OF [employer] [address] [place] [address] [id number] AMARILIS ENRIQUEZ Self - patient is the insured Medical (General) History Medical History History ICD Code NIDDM hypertension Denies AL,CVA,renal disease Colonoscopy in 08/2007 at [facility] with Dr. Howe-1 tubular adenoma removed, but poor prep; F/U colonoscopy in 05/2008 at [facility] was negative and with an excellent prep as per the report asthma/bronchitis Depression Hypothyroidism hyperlipidemia GERD 02/2013-neg colonoscopy except diverticul osis and internal hemorrhoids 02/2013-EGD with a small HH and anatomy c /w her gastric bypass 04/2013 nd 12/2014-neg CT of abd/pelvis Chronic constipation Surgical History Surgery Date(Month/Year) cataracts gastric [id number] [facility]-lost 100 # [facility]Y Shoulder appendectomy varicose vein stripping
--- OUTSIDE RECORDS SUMMARY | 2025-03-16 12:48 | XMS_ITS | Encounter Summary ---
Author Organization [employer] Address [address] [facility] 7t [place] [address] Care Team Providers Care Traffic Expert Name Role Phone Mary Rod MD Primary Care Provide r Reason for Visit * Reason Comments Med Refill Encounter Details Date Type Department Care Team ([facility] st Contact Info) Description 03/16/2025 Refill [facility] MEDICINE [address] [place], [place] [phone] Mary Rod MD [address] [place], [place] [phone] Type 2 diabetes mellitus with chronic kidney disease, without long-term current use of insulin, unspecified CKD stage (HCC) Social History Tobacco Use Types Packs/Day [...] housing situation today? I have luisa caicedo 03/01/[address] you [...] Description 03/16/2025 1:15 PM EDT Office Visit [facility] OPTOMETRY [address] [place] [address] Tonya Brennan, OD [address] [place] [address] Arrived 05/15/2025 9:30 AM EST Office Visit [facility] OPTOMETRY [address] [place] [address] Tonya Brennan, OD [address] [place] [address] documented as of this encounter Goals Goal [...] use of insulin, unspecified CKD stage (HCC) documented in this encounter Additional Health Concerns Assessment Noted Time PHQ-9 Depression Total Score: 8 03/10/20 25 9:34 AM EDT documented as of this encounter Care Teams Traffic Expert Relationship Specialty Start Date End Date Mary Rod MD [address] [place] [address] PCP - General Family Medicine 02/07/22 documented as of this encounter
--- OUTSIDE RECORDS SUMMARY | 2025-03-16 12:48 | XMS_ITS | Encounter Summary ---
Author Organization [employer] Address [address] [place] [address] 7t [place] [address] Care Team Providers Care Gravity Prospecting Operator Helper Name Role Phone Mary Rod MD Primary Care Provide r Encounter Details Date Type Department Care Team (Late Contact Info) Description 11/12/2022 [facility] Health Information Management [address] [place] [address] Mary Rod MD [address] [place] [address] Social History Tobacco Use Types Packs/Day Years [...] Encounters Date Type Department Care Team (Late Contact Info) Description 03/16/2025 1:15 PM EDT Office Visit [facility] OPTOMETRY [address] [place] [address] Tonya Brennan, OD [address] [place] [address] Arrived 05/15/2025 9:30 AM EST Office Visit [facility] OPTOM[facility]RY [address] [place] [address] Tonya Brennan, OD [address] [place] [address] documented as of this encounter Goals Goal Patient Goal Type Associated Problems Recent Progress Patient-Stated? Author Record your blood pressure once per day Blood Pressure Giovany Dixon, PharmD Note: When you receive your new BP monitor Short-term: Promote adherence to treatment regimen General No Giovany Lin, PharmD documented as of this encounter Visit Diagnoses Not on filedocumented in this encounter Additional Health Concerns Assessment Noted Time PHQ-9 Depression Total Score: 0 10/29/19 23 9:50 AM EDT documented as of this encounter Care Teams Gravity Prospecting Operator Helper Relationship Specialty Start Date End Date Mary Rod MD [address] [place] [address] PCP - General Family Medicine 02/07/22 [place] [facility] 11/16/24 01/15/25 documented as of this encounter
--- OUTSIDE RECORDS SUMMARY | 2025-03-16 12:48 | XMS_ITS | Encounter Summary ---
Author Organization [employer] Address [address] [facility] 7t [place] [address] Care Team Providers Care Field Contact Person Name Role Phone Mary Rod MD Primary Care Provide r Encounter Details Date Type Department Care Team (Late st Contact Info) Description 03/24/2023 Abstract [facility] MEDICINE [address] [place], [place] [phone] Tonia Cardoza Social History Tobacco Use Types [...] Description 03/16/2025 1:15 PM EDT Office Visit [facility] OPTOMETRY [address] [place] [address] Tonya Brennan, OD [address] [place] [address] Arrived 05/15/2025 9:30 AM EST Office Visit [facility] OPTOMETRY [address] [place] [address] Tonya Brennan, OD [address] [place] [address] documented as of this encounter Goals Goal [...] documented as of this encounter Care Teams Field Contact Person Relationship Specialty Start Date End Date Mary Rod MD [address] [place] [address] PCP - General Family Medicine 02/07/22 [place] [facility] 11/16/24 01/15/25 documented as of this encounter
--- OUTSIDE RECORDS SUMMARY | 2025-03-16 12:48 | XMS_ITS | Encounter Summary ---
Author Organization [employer] Address [address] [facility] 7t [place] [address] Care Team Providers Care Outside Machinist Helper Name Role Phone Mary Rod MD Primary Care Provide r Reason for Visit * Reason Onset Date Comments Med Refill 10/12/2024 Encounter Details Date Type Department Care Team ([facility] st Contact Info) Description 10/12/2024 Telephone [facility] MEDICINE [address] [place], [place] [phone] Mary Rod MD [address] [place], [place] [phone] Med Refill Social History Tobacco Use Types [...] Nassar LPN - 10/12/2024 8:36 AM EDT EAP COUNSELOR checked on 10/12/24 Ambien last filled on 08/04/24 by Mariaelena Yan. * Telephone Encounter - Michael Fabian - 10/12/2024 8:30 AM EDT TC from pt requesting medication refill. Medications needing refill : zolpidem (Ambien) 10 MG tablet To be sent to: [facility] - [place], [place] - [address] [facility] documented in this encounter Plan of Treatment Upcoming Encounters Date Type Department Care Team (Late st Contact Info) Description 03/16/2025 1:15 PM EDT Office Visit [facility] OPTOMETRY [address] [place] [address] Tonya Brennan, OD [address] [place] [address] Arrived 05/15/2025 9:30 AM EST Office Visit [facility] OPTOMETRY [address] [place] [address] Tonya Brennan, OD [address] [place] [address] documented as of this encounter Goals Goal Patient Goal Type Associated Problems Recent Progress Patient-Stated? Author Record your blood pressure once per day Blood Pressure Giovany Dioxn PharmD Note: When you receive your new BP monitor Short-term: Promote adherence to treatment regimen General No Giovany Lin, JaredD documented as of this encounter Visit Diagnoses Not on filedocumented in this encounter Additional Health Concerns Assessment Noted Time PHQ-9 Depression Total Score: 0 01/07/20 24 9:26 AM EDT documented as of this encounter Care Teams Outside Machinist Helper Relationship Specialty Start Date End Date Mary Rod MD [address] [place] [address] PCP - General Family Medicine 02/07/22 [place] [facility] 11/16/24 01/15/25 documented as of this encounter
--- OUTSIDE RECORDS SUMMARY | 2025-03-16 12:49 | XMS_ITS | Clinical Summary ---
Author Organization [facility] Address [address] [address] Care Team Providers Care Private Watchman Name Role Phone Natalee Rooney MD Primary Care Provider [phone] Allergies Active Allergy Reactions Criticality Noted Date [...] Quadrival ent, Adjuvanted 03/04/2021 Influenza, Injectable, Madin [place] Canine Kidney, Preservative Free 08/23/2015 Influenza, Quadrivalent, [...] Visit [facility] [address] [place] [address] Rober Acharya MD [address] [facility] [address] [place] [address] Health Maintenance Due Date Last Done Comments Breast Cancer Screening 1950 Colorectal Cancer Screening: Annual FOBT 11/14/2000 Colorectal Cancer Screening: Colonoscopy 11/14/2000 Colorectal Cancer Screening: Sigmoidoscopy 11/14/2000 Hepatitis B Vaccine (1 of 3 - Risk 3-dose series) 2011 12/08/2024 Diabetes: Pedal Pulse Checked 07/16/2020 Diabetes: Sensory Foot Exam 07/16/2020 Diabetes: Visual Foot Exam 07/16/2020 Influenza Vaccine (#1) 2025 , 03/10/2022, 03/19/2021, Additional history exists Diabetes: Hemoglobin A1C 05/10/2025 025, 08/12/2024, 01/07/2024 Diabetes: Ophthalmology Exam 11/10/2025 11/10/2024 Pneumococcal Vaccine: 50+ Years Completed 04/23/2021, 04/26/2017, 04/05/2012, Additional history exists Pneumococcal Vaccine: Peds ( 0 to 5 Years) and At-Risk Patients (6 to 49 Years) Discontinued 04/23/2021, 04/26/2017, 04/05/2012, Additional history exists Insurance [facility] ([id number]) [facility] ([id number]) Care Teams Private Watchman Relationship Specialty Start Date End Date Natalee Rooney MD PCP - General Family Medicine 02/05/21
--- OUTSIDE RECORDS SUMMARY | 2025-03-16 12:49 | XMS_ITS | Encounter Summary ---
Author Organization [employer] Address [address] [facility] [address]t [place] [address] Care Team Providers Care Cable Maintainer Name Role Phone Mary Rod MD Primary Care Provide r Reason for Visit * Reason Comments Med Refill Encounter Details Date Type Department Care Team (Late st Contact Info) Description 04/13/2023 Refill [facility] MEDICINE [address] [place], [place] [phone] Yara Tompkins MD [address] [place], [place] [phone] Social History Tobacco Use Types Packs/Day Years [...] Description 03/16/2025 1:15 PM EDT Office Visit [facility] OPTOMETRY [address] [place] [address] Tonya Brennan, OD [address] [place] [address] Arrived 05/15/2025 9:30 AM EST Office Visit [facility] OPTOMETRY [address] [place] [address] Tonay Brennan, OD [address] [place] [address] documented as of this encounter Goals Goal [...] documented as of this encounter Care Teams Cable Maintainer Relationship Specialty Start Date End Date Mary Rod MD [address] [place] [address] PCP - General Family Medicine 02/07/22 [place] [facility] 11/16/24 01/15/25 documented as of this encounter
== END 2025-03-16 12:03 | disposition home or self-care (01) ==
LOC: HO.HGI 10:53
PROVIDERS: PCP Internal Medicine; Visit Provider Nurse Practitioner
DX: E03.9 Hypothyroidism, unspecified (principal); K59.04 Chronic idiopathic constipation; K75.81 Nonalcoholic steatohepatitis (NASH)
CPT/HCPCS: 99213

== ENCOUNTER → 2025-03-16 10:53 | Outpatient (BNVA) | payer OTHER, SELFPAY | PROVIDERS: PCP Internal Medicine; Visit Provider Nurse Practitioner | DX: K59.04 Chronic idiopathic constipation (principal); E03.9 Hypothyroidism, unspecified; R79.89 Other specified abnormal findings of blood chemistry; K75.81 Nonalcoholic steatohepatitis (NASH) | CPT/HCPCS: 99212 ==

== ENCOUNTER 2025-03-20 10:42 | Outpatient (REF) | payer OTHER, SELFPAY ==
--- OUTSIDE RECORDS SUMMARY | 2025-03-16 13:15 | XMS_ITS | Encounter Summary ---
Author Organization [id number] Address [address] [facility] 7t [place] [address] Care Team Providers Care Real Estate Agency Licensee Name Role Phone Mary Rod MD Primary Care Provide r Reason for Visit * Reason Comments Eye Pain Encounter Details Date Type Department Care Team ([facility] st Contact Info) Description 03/16/2025 1:15 PM EDT Office Visit [facility] OPTOMETRY [address] [place], [place] [phone] TarTonya donaldson, OD [address] [place] [address] Dry eyes, bilateral (Primary Dx) Social History Tobacco Use Types Packs/Day Years [...] AM EDT documented as of this encounter Progress Notes * Tonya Brennan, OD - 03/16/2025 1:15 PM EDT Eye Care Progress Note Patient ID: Hayley Wang is a 74 y.o. female. Chief Complaint Eye Pain HPI Patient reports redness, pain, burning and tearing both eyes (OU) x 1 month. Patient has been using Clear Eyes daily and says they have no helped. Last edited by Tonya Brennan, REBECCA on 03/16/2025 1:21 PM. Current Medications[1] Medical History[2] Surgical History[3] Family History[4] Tobacco Use: Low Risk (12/08/2024) Tobacco Smoking Tobacco Use: Never Smokeless Tobacco Use: Never Passive Exposure: Never Allergies[5] ROS Positive for: Eyes Negative for: Constitutional, Gastrointestinal, Neurological, Skin, Genitourinary, Musculoskeletal,HENT, Endocrine, Cardiovascular, Respiratory, Psychiatric, Allergic/Imm, Heme/Lymph Last edited by Tonya Brennan, REBECCA on 03/16/2025 1:21 PM. Base Eye Exam Visual Acuity (Snellen - Linear) Right Left Dist ph sc 20/40 20/80 Tonometry (iCare , 1:07 PM) Right Left Pressure 13 13 Pupils Pupils APD Right PERRL None Left PERRL None Visual Macias Right eye (OD): 360 degree restriction, Left eye (OS): 360 degree restriction - testing done with counting fingers and finger motion stable to previous Extraocular Movement Right Left Full Full Neuro/Psych Oriented x3: Yes Mood/Affect: Normal Slit Lamp and Fundus Exam External Exam Right Left External Normal Normal Slit Lamp Exam Right Left Lids/Lashes Makeup debris, collarettes, blepharitis, MGD Makeup debris, collarettes, blepharitis, MGD Conjunctiva/Sclera Tr injection Tr injection Cornea 2+ inferior SPK 2+ inferior SPK Anterior Chamber Deep and quiet, angles open gr 4 Deep and quiet, angles open gr 4 Iris Round and reactive, (-) NVI Round and reactive, (-) NVI Lens PC-IOL clear and centered, s/p YAG PC-IOL clear and centered, s/p YAG Assessment and Plan Diagnoses and all orders for this visit: Dry eyes, bilateral - Advised patient to discontinue use of ClearEyes eyedrops - Patient given sample of Refresh Relieva and advised to use 1gtt QID OU - Also recommended use of artificial tear ointment at bedtime OU - ointment sent to pharmacy - Discussed importance of eyelid hygiene and to use gentle soap and warm water to clean lids/lashesdaily - RTC in 2 weeks for follow up or sooner PRN Orders: - white petrolatum-mineral oil (Lacri-Lube) ointment ophthalmic ointment; Apply 1 Application. to both eyes if needed for dry eyes. Tonya Brennan, OD 03/16/2025, 1:22 PM Medical Records Custodian Source: __ None __ Bilingual Staff __ Qualified Staff Rolling Down Machine Operator __ Telephone Medical Records Custodian; ID# __ Medical Records Custodian brought by patient (family member, friend, CDL A DRIVER, etc) __ In person receiver __ Ipad Medical Records Custodian; ID#: Language Spoken During Exam: [1] Current Outpatient Medications Medication Sig Dispense Refill acetaminophen (Tylenol) 500 MG tablet Take 2 tablets (1,000 mg) by mouth every 6 (six) hours if needed for moderate pain or fever for up to 25 doses. 40 tablet 0 albuterol (Ventolin HFA) 108 (90 Base) MCG/ACT inhaler INHALE 2 PUFFS BY MOUTH EVERY 4 HOURS NEEDED 18 g 3 Alcohol Swabs 70 % pads Use to test blood sugar 1 times daily 100 each 0 aspirin (Aspirin Low Dose) 81 MG EC tablet TAKE 1 TABLET BY MOUTH EVERY MORNING 90 tablet 3 bacitracin 500 UNIT/GM ointment APPLY 1 GRAM TOPICALLY TWICE DAILY TO BOTH HEELS Bisacodyl EC 5 MG EC tablet Take 3 tablets by mouth at bedtime. Blood Glucose Monitoring Suppl (FreeStyle [place] Lite) w/Device kit Use to test blood sugar 1 times daily 1 kit 0 Blood Pressure Monitoring (Omron 3 Series BP Monitor) device USE DIRECTED ONCE DAILY 1 each 0 Brilinta 90 MG tablet TAKE 1 TABLET BY MOUTH TWICE DAILY IN THE MORNING AND IN THE EVENING 60 tablet 3 budesonide-formoterol (Symbicort) 160-4.5 MCG/ACT inhaler INHALE 2 PUFFS BY MOUTH TWICE DAILY. RINSE MOUTH AFTER USING. clonazePAM (KlonoPIN) 1 MG tablet Take 1 tablet by mouth if needed in the morning, at noon, and at bedtime. clotrimazole (Lotrimin) 1 % cream APPLY TO SKIN AND TOENAILS EVERY DAY FOR 12 WEEKS cyanocobalamin (Vitamin B-12) 1000 MCG tablet Take 1,000 mcg by mouth Once per day. Diclofenac Sodium 1 % gel APPLY 1 APPLICATION TOPICALLY TO AFFECTED AREA(S) EVERY TWELVE HOURS NEEDED 100 g 1 famotidine (Pepcid) 20 MG tablet Take 1 tablet by mouth 1 (one) time each day. Farxiga 10 MG TAKE 1 TABLET BY MOUTH EVERY MORNING 30 tablet 2 folic acid (Folvite) 1 MG tablet TAKE 1 TABLET BY MOUTH EVERY MORNING FREESTYLE LITE test strip TEST BLOOD SUGAR TWICE DAILY FREESTYLE LITE test strip Use to test blood sugar 1 times daily 100 each 12 gabapentin (Neurontin) 600 MG tablet TAKE 1 TABLET BY MOUTH THREE TIMES DAILY IN THE MORNING, AT NOON, AND AT BEDTIME 90 tablet 2 ipratropium-albuterol (Duo-Neb) 0.5-2.5 mg/3 mL nebulizer solution INHALE 1 AMPULE USING A NEBULIZER FOUR TIMES DAILY 180 mL 1 lactulose (Chronulac) 10 GM/15ML solution TAKE 30 ML BY MOUTH THREE TIMES DAILY Lancets misc Use to test blood sugar 1 times daily 100 each 2 levothyroxine (Synthroid, Levoxyl) 125 MCG tablet TAKE 1 TABLET BY MOUTH EVERY MORNING BEFORE BREAKFAST 30 tablet 2 lidocaine (Xylocaine) 5 % ointment Apply topically if needed for mild pain. 50 g 1 Linzess 290 MCG capsule TAKE 1 CAPSULE BY MOUTH EVERY MORNING meclizine (Antivert) 25 MG tablet Take 1 tablet (25 mg) by mouth if needed in the morning, at noon,and at bedtime for dizziness for up to 10 days. 30 tablet 0 metFORMIN XR (Glucophage-XR) 500 MG 24 hr tablet TAKE 1 TABLET BY MOUTH TWICE DAILY IN THE MORNING AND IN THE EVENING WITH FOOD 180 tablet 2 metoclopramide (Reglan) 10 MG tablet TAKE 1 TABLET BY MOUTH FOUR TIMES DAILY (BEFORE MEALS AND AT BEDTIME) metoprolol succinate XL (Toprol-XL) 50 MG 24 hr tablet Take 0.5 tablets (25 mg) by mouth in the morning. 30 tablet 11 montelukast (Singulair) 10 MG tablet TAKE 1 TABLET BY MOUTH AT BEDTIME 30 tablet 3 Multiple Vitamins-Iron (Tab-A-Star/Iron/Beta Carotene) tablet Take 1 tablet by mouth every morning with food Multiple Vitamins-Minerals (CertaVite/Antioxidants) tablet TAKE 1 TABLET BY MOUTH EVERY MORNING WITH FOOD 90 tablet 3 mupirocin (Bactroban) 2 % ointment APPLY A THIN LAYER AFFECTED AREA(S) THREE TIMES DAILY nitroglycerin (Nitrostat) 0.[address] 1 TABLET UNDER THE TONGUE NEEDED FOR CHEST PAIN- MAY REPEAT IN 5 MINUTES TWICE. IF NO RELIEF CALL 911 OR GO TO EMERGENCY ROOM. nystatin (Mycostatin) 760088 UNIT/GM powder APPLY TO THE AFFECTED AREA(S) TOPICALLY TWICE DAILY 60 g 1 pancrelipase, Ags-Kxul-Osmh, (Creon) 32685-72564 units capsule TAKE 1 CAPSULE BY MOUTH FOUR TIMES DAILY WITH FOOD AND 1 CAPSULE WITH SNACKS DO NOT BREAK, CRUSH, DISSOLVE OR CHEW 120 capsule 3 pantoprazole (ProtoNix) 40 MG EC tablet Take 1 tablet by mouth 2 times daily. rosuvastatin (Crestor) 40 MG tablet TAKE 1 TABLET BY MOUTH AT BEDTIME 90 tablet 3 sacubitril-valsartan (Entresto) 24-26 MG tablet Take 1 tablet by mouth 2 times daily. Simethicone Ultra Strength 180 MG capsule Take 1 capsule by mouth 4 times daily. sucralfate (Carafate) 1 g tablet TAKE 1 TABLET BY MOUTH FOUR TIMES DAILY BEFORE MEALS AND AT BEDTIME 120 tablet 0 terbinafine (LamISIL AT) 1 % cream Apply topically 2 times daily. (Patient not taking: Reported on 10/28/2023) 30 g 0 topiramate (Topamax) 25 MG tablet TAKE 1 TABLET BY MOUTH EVERY EVENING 30 tablet 2 traMADol (Ultram) 50 MG tablet Take 50 mg by mouth every 6 (six) hours if needed. TRUEplus Lancets [facility] TEST BLOOD SUGAR TWICE DAILY Trulicity 0.75 MG/0.5ML solution auto-injector INJECT ONE PEN (=0.75MG) SUBCUTANEOUSLY ONCE A WEEK DIRECTED 6 mL 3 venlafaxine XR (Effexor XR) 150 MG 24 hr capsule Take 1 capsule by mouth in the morning. venlafaxine XR (Effexor XR) 75 MG 24 hr capsule Take 1 capsule by mouth in the morning. white petrolatum-mineral oil (Lacri-Lube) ointment ophthalmic ointment Apply 1 Application. to botheyes if needed for dry eyes. 3.5 g 0 No current facility-administered medications for this visit. [2] Past Medical History: Diagnosis Date Diabetic retinopathy (CMS/HCC) [3] Past Surgical History: Procedure Laterality Date CATARACT EXTRACTION RETINAL LASER PROCEDURE [4] Family History Problem Relation Name Age of Onset Glaucoma Mother [5] No Known Allergies documented in this encounter Plan of Treatment Upcoming Encounters Date Type Department Care Team (Late st Contact Info) Description 03/31/2025 9:15 AM EDT Office Visit [facility] OPTOMETRY [address] [place] [address] Tonya Brennan OD [address] [place] [address] 05/15/2025 9:30 AM EST Office Visit [facility] OPTOMETRY [address] [place], [place] [phone] Tonya Brennan OD [address] [place] [address] documented as of this encounter Goals Goal Patient Goal Type Associated Problems Recent Progress Patient-Stated? Author Record your blood pressure once per day Blood Pressure Giovany Dixon PharmD Note: When you receive your new BP monitor Short-term: Promote adherence to treatment regimen General No Giovany Lin PharmD documented as of this encounter Visit Diagnoses Diagnosis Dry eyes, bilateral- Primary documented in this encounter Additional Health Concerns Assessment Noted Time PHQ-9 Depression Total Score: 8 03/10/20 25 9:34 AM EDT documented as of this encounter Care Teams Real Estate Agency Licensee Relationship Specialty Start Date End Date Mary Rod MD [address] [place] [address] PCP - General Family Medicine 02/07/22 documented as of this encounter
[2025-03-20 12:42] LABS: Free T4 (Free Thyroxine) 1.37 ng/dL (0.71-1.85)
--- OUTSIDE RECORDS SUMMARY | 2025-03-20 12:49 | XMS_ITS | Encounter Summary ---
Author Organization [employer] Address [address] [place] [address] 7t [place] [address] Care Team Providers Care Leadership Intern Name Role Phone Mary Rod MD Primary Care Provide r Encounter Details Date Type Department Care Team (Late Contact Info) Description 11/12/2022 [facility] Information Management [address] [place] [address] Mary Rod MD [address] [place] [address] Social History Tobacco Use Types Packs/Day Years [...] Department Care Team (Late Contact Info) Description 03/31/2025 9:15 AM EDT Office Visit [facility] OPTOMETRY [address] [place] [address] Tonya Brennan, OD [address] [place] [address] 05/15/2025 9:30 AM EST Office Visit [facility] OPTOMETRY [address] [place] [address] Tonya Brennan, OD [address] [place] [address] documented as of this encounter Goals Goal [...] documented as of this encounter Care Teams Leadership Intern Relationship Specialty Start Date End Date Mary Rod MD [address] [place] [address] PCP - General Family Medicine 02/07/22 [place] CALLIA 11/16/24 01/15/25 documented as of this encounter
--- OUTSIDE RECORDS SUMMARY | 2025-03-20 12:49 | XMS_ITS | Clinical Summary ---
Author Organization [facility] Facility Address [address] [address] Care Team Providers Care Senior Outside Sales Representative Name Role Phone Natalee Rooney MD Primary Care Provider [phone] Allergies Active Allergy Reactions Criticality Noted Date [...] Quadrival ent, Adjuvanted 03/04/2021 Influenza, Injectable, Madin Sterling Canine Kidney, Preservative Free 08/23/2015 Influenza, Quadrivalent, [...] Visit [facility] [address] [place] [address] [place] [address] Rober Acharya MD [address] [facility] [address] [place] [address] Health Maintenance Due Date Last Done Comments [...] 04/23/2021, 04/26/2017, 04/05/2012, Additional history exists Insurance [facility] ([id number]) [facility] ([id number]) Care Teams Senior Outside Sales Representative Relationship Specialty Start Date End Date Natalee Rooney MD PCP - General Family Medicine 02/05/21
--- OUTSIDE RECORDS SUMMARY | 2025-03-20 12:49 | XMS_ITS | Encounter Summary ---
Author Organization [employer] Address [address] [facility] 7t [place] [address] Care Team Providers Care Policyholder Information Clerk Name Role Phone Mary Rod MD Primary Care Provide r Encounter Details Date Type Department Care Team ([facility] st Contact Info) Description 03/25/2023 Orders Only [facility] MEDICINE [address] [place], [place] [phone] ProviderLinsey MD Social History Tobacco Use Types [...] 03/31/2025 9:15 AM EDT Office Visit [facility] OPTOMETRY [address] [place] [address] Tonya Brennan, OD [address] [place] [address] 05/15/2025 9:30 AM EST Office Visit [facility] OPTOMETRY [address] [place] [address] TarTonya donaldson, OD [address] [place] [address] documented as of this encounter Goals Goal Patient Goal Type Associated Problems Recent Progress Patient-Stated? Author Record your blood pressure once per day Blood Pressure No Giovany Lni PharmD Note: When you receive your new [...] documented as of this encounter Care Teams Policyholder Information Clerk Relationship Specialty Start Date End Date Mary Rod MD [address] [place] [address] PCP - General Family Medicine 02/07/22 Tequila MACIAS 11/16/24 01/15/25 documented as of this encounter
--- OUTSIDE RECORDS SUMMARY | 2025-03-20 12:49 | XMS_ITS | Encounter Summary ---
Author Organization [employer] Address [address] [facility] 7t [place] [address] Care Team Providers Care Platform Worker Name Role Phone Mary Rod MD Primary Care Provide r Encounter Details Date Type Department Care Team (Late st Contact Info) Description 03/20/2025 Orders Only GENERIC EXTERNAL DATA DEPARTMENT Provider, [...] Description 03/31/2025 9:15 AM EDT Office Visit [facility] OPTOMETRY [address] [facility] [place] [address] TarTonya donaldson, OD [address] [place] [address] 05/15/2025 9:30 AM EST Office Visit [facility] OPTOMETRY [address] [facility] [place] [address] TarTonya donaldson, OD [address] [place] [facility] [place] [address] documented as of this encounter Goals Goal Patient Goal Type Associated Problems Recent Progress Patient-Stated? Author Record your blood pressure once per day Blood Pressure No Giovany Lin PharmD Note: When you receive your new BP monitor Short-term: Promote adherence to treatment regimen General No Giovany Lin PharmD documented as of this encounter Procedures Procedure Name Priority Date/Time Associated Diagnosis Comments TSH W/REFLEX TO FT4 Routine 03/20/2025 1 0:51 AM EDT T4, FREE Routine 03/20/2025 10:51 AM EDT documented in this encounter Results * T4, Free (03/20/2025 10:51 AM EDT) Free T4 (Free Thyroxine) 1.37 0.71 - 1.85 ng/dL [facility] 03/20/2025 10:5 1 AM EDT 03/20/2025 10:51 AM EDT us Generic External Data Provider LAB BLOOD ORDERAB LES Final Result Performing Organization Address [facility] [[email or web address]] Co de Phone Number [facility] [address] [place] [address] [phone] * (ABNORMAL) TSH with Reflex to Free T4 (03/20/2025 10:51 AM EDT) TSH reflex Free T4 0.03(L) 0.32 - 4.0 uIU/mL [facility] 03/20/2025 10:5 1 AM EDT 03/20/2025 10:51 AM EDT us Generic External Data Provider LAB BLOOD ORDERAB LES Final Result Performing Organization Address [facility] [[email or web address]] Co de Phone Number [facility] [address] [place] [phone] documented in this encounter Visit Diagnoses Not on filedocumented in this encounter Additional Health Concerns Assessment Noted Time PHQ-9 Depression Total Score: 8 03/10/20 25 9:34 AM EDT documented as of this encounter Care Teams Platform Worker Relationship Specialty Start Date End Date Mary Rod MD [address] [place] [address] PCP - General Family Medicine 02/07/22 documented as of this encounter
--- OUTSIDE RECORDS SUMMARY | 2025-03-20 12:49 | XMS_ITS | Encounter Summary ---
Author Organization [employer] Address [address] [facility] 7t [place] [address] Care Team Providers Care Pmp Name Role Phone Mary Rod MD Primary Care Provide r Reason for Visit * Reason Comments Med Refill Encounter Details Date Type Department Care Team ([facility] st Contact Info) Description 03/16/2025 Refill [facility] MEDICINE [address] [place], [place] [phone] Mary Rod MD [address] [place], [place] [phone] Type 2 diabetes mellitus with chronic kidney [...] Description 03/31/2025 9:15 AM EDT Office Visit [facility] OPTOMETRY [address] [place] [address] Tonya Brennan, OD [address] [place] [address] 05/15/2025 9:30 AM EST Office Visit [facility] OPTOMETRY [address] [place] [address] Tonya Brennan, OD [address] [place] [address] documented as of this encounter Goals Goal [...] documented as of this encounter Care Teams Pmp Relationship Specialty Start Date End Date Mary oRd MD [address] [place] [address] PCP - General Family Medicine 02/07/22 documented as of this encounter
--- OUTSIDE RECORDS SUMMARY | 2025-03-20 12:49 | XMS_ITS | Encounter Summary ---
Author Organization [employer] Address [address] [facility] 7t [place] [address] Care Team Providers Care Correctional Therapy Director Name Role Phone Mary Rod MD Primary Care Provide r Reason for Visit * Reason Comments Med Refill Encounter Details Date Type Department Care Team (Late st Contact Info) Description 04/13/2023 Refill [facility] MEDICINE [address] [place], [place] [phone] Yara Tompkins MD [address] [place], [place] [phone] Social History Tobacco Use Types Packs/Day Years [...] Description 03/31/2025 9:15 AM EDT Office Visit [facility] OPTOMETRY [address] [place] [address] Tonya Brennan, OD [address] [place] [address] 05/15/2025 9:30 AM EST Office Visit [facility] OPTOMETRY [address] [place] [address] Mika Tonya, OD [address] [place] [address] documented as of this encounter Goals Goal [...] documented as of this encounter Care Teams Correctional Therapy Director Relationship Specialty Start Date End Date Mary Rod MD [address] [place] [address] PCP - General Family Medicine 02/07/22 [place] [facility] 11/16/24 01/15/25 documented as of this encounter
--- OUTSIDE RECORDS SUMMARY | 2025-03-20 12:49 | XMS_ITS | Encounter Summary ---
Author Organization [employer] Address [address] [facility] 7t [place] [address] Care Team Providers Care Trains Service Conductor Name Role Phone Mary Rod MD Primary Care Provide r Encounter Details Date Type Department Care Team (Late st Contact Info) Description 03/24/2023 Abstract [facility] MEDICINE [address] [place], [place] [phone] Tonia Cardoza Social History Tobacco Use Types [...] Description 03/31/2025 9:15 AM EDT Office Visit [facility] OPTOMETRY [address] [place] [address] Tonya Brennan, OD [address] [place] [address] 05/15/2025 9:30 AM EST Office Visit [facility] OPTOMETRY [address] [place] [address] TarTonya donaldson, OD [address] [place] [address] documented as of this encounter Goals Goal [...] documented as of this encounter Care Teams Trains Service Conductor Relationship Specialty Start Date End Date Mary Rod MD [address] [place] [address] PCP - General Family Medicine 02/07/22 [place] [facility] 11/16/24 01/15/25 documented as of this encounter
--- OUTSIDE RECORDS SUMMARY | 2025-03-20 12:49 | XMS_ITS | Encounter Summary ---
Author Organization [employer] Address [address] [facility] [address]t [place] [address] Care Team Providers Care Pneumatic Tool Repairer Name Role Phone Mary Rod MD Primary Care Provide r Reason for Visit * Reason Onset Date Comments Med Refill 10/12/2024 Encounter Details Date Type Department Care Team ([facility] st Contact Info) Description 10/12/2024 Telephone [facility] MEDICINE [address] [place], [place] [phone] Mary Rod MD [address] [place], [place] [phone] Med Refill Social History Tobacco Use Types [...] Nassar LPN - 10/12/2024 8:36 AM EDT NETWORK SECURITY ADMINISTRATOR checked on 10/12/24 Ambien last filled on 08/04/24 by Mariaelena Yan. * Telephone Encounter - Michael Fabian - 10/12/2024 8:30 AM EDT TC from pt requesting medication refill. Medications needing refill : zolpidem (Ambien) 10 MG tablet To be sent to: [facility] - [place], [place] - [address] [facility] documented in this encounter Plan of Treatment Upcoming Encounters Date Type Department Care Team (Late st Contact Info) Description 03/31/2025 9:15 AM EDT Office Visit [facility] OPTOMETRY [address] [place] [address] Tonya Brennan, OD [address] [place] [address] 05/15/2025 9:30 AM EST Office Visit [facility] OPTOMETRY [address] [place] [address] Tonya Brennan, OD [address] [place] [address] documented as of this encounter Goals Goal [...] documented as of this encounter Care Teams Pneumatic Tool Repairer Relationship Specialty Start Date End Date Mary Rod MD [address] [place] [address] PCP - General Family Medicine 02/07/22 [place] [facility] 11/16/24 01/15/25 documented as of this encounter
--- OUTSIDE RECORDS SUMMARY | 2025-03-20 12:49 | XMS_ITS | Encounter Summary ---
Author Organization [employer] Address [address] [facility] 7t [place] [address] Care Team Providers Care Build Master Name Role Phone Mary Rod MD Primary Care Provide r Encounter Details Date Type Department Care Team (Latest Contact Info) Description 03/16/2025 Travel Social History Tobacco Use Types Packs/Day Years [...] Description 03/31/2025 9:15 AM EDT Office Visit [facility] OPTOMETRY [address] [place] [address] Tonya Brennan, OD [address] [place] [address] 05/15/2025 9:30 AM EST Office Visit [facility] OPTOMETRY [address] [place] [address] Mika Tonya, OD [address] [place] [address] documented as of this encounter Goals Goal [...] documented as of this encounter Care Teams Build Master Relationship Specialty Start Date End Date Mary Rod MD [address] [place] [address] PCP - General Family Medicine 02/07/22 documented as of this encounter
--- OUTSIDE RECORDS SUMMARY | 2025-03-20 12:49 | XMS_ITS | Patient Health Record ---
Author Organization [facility] Address [address] [place] [address] Care Team Providers Care Facility Planner Name Role Phone Rogelio TOWNSEND, Laurent Primary Care Provider Frank Hernandez Unavailable [phone] Charles Clemons Unavailable Unavailable Reason For Referral [...] Manage Prod Active Effexor XR Active Calcitonin ([place]) Active Fluticasone Propionate Active Colace 100 MG [...] Problem Status W/U Status Risk Notes Problem [id number] Slow transit constipation (K59.01) Active confirmed Plan Of Treatment Future Test Test Name Order Date UPPER GI ENDOSCOPY 12/01/2012 COLONOSCOPY 12/01/2012 Insurance Providers Payer Name Payer Address Payer Phone Subscriber Number Group Number Insured Name Patient Relationship to Insured Coverage Start Date Coverage End Date [facility] [address] [place] [phone] [id number] AMARILIS ENRIQUEZ Self - patient is the insured MEDICAID OF [employer] [address] [place] [address] [id number] AMARILIS ENRIQUEZ Self - patient is the insured Medical (General) History Medical History History ICD Code NIDDM hypertension Denies AK,CVA,renal disease Colonoscopy in 08/2007 at [facility] C with Dr. Howe-1 tubular adenoma removed, but poor prep; F/U colonoscopy in 05/2008 at [facility] was negative and with an excellent prep as per the report asthma/bronchitis Depression Hypothyroidism hyperlipidemia GERD 02/2013-neg colonoscopy except diverticul osis and internal hemorrhoids 02/2013-EGD with a small HH and anatomy c /w her gastric bypass 04/2013 nd 12/2014-neg CT of abd/pelvis Chronic constipation Surgical History Surgery Date(Month/Year) cataracts gastric [id number] [facility]-lost 100 # [facility] Shoulder appendectomy varicose vein stripping
--- OUTSIDE RECORDS SUMMARY | 2025-03-20 12:49 | XMS_ITS | Clinical Summary ---
Author Organization [employer] Address [address] [place] [address] [address] [place] [address] Care Team Providers Care Conveyor Tender Name Role Phone Mary Rod MD [...] by mouth Once per day. Active pancrelipase, Vra-Yoxw-Bbvs, (Creon) 75249-71810 units capsuleIndication s:Pancreatic insufficiency TAKE 1 CAPSULE [...] 100 g 1 025 Active nystatin (Mycostatin) 822679 UNIT/GM powderIndications :Intertrigo APPLY TO THE AFFECTED AREA(S) TOPICALLY TWICE DAILY 60 g 1 025 Active montelukast (Singulair) 10 MG tablet TAKE 1 TABLET BY MOUTH AT BEDTIME 30 tablet 3 025 Active gabapentin (Neurontin) 600 MG tabletIndications [...] MORNING BEFORE BREAKFAST 30 tablet 2 Active FREESTYLE LITE test [...] nephropathy associated with type 2 diabetes mellitus ([facility]) Use to test blood sugar 1 times daily 100 each Active Blood Glucose Monitoring Suppl (FreeStyle [place] Lite) w/Device kitIndications: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 ([facility]) Use to test blood sugar 1 times [...] 10 days. 30 tablet 025 2024 Active Farxiga 10 MGIndications:Typ e 2 diabetes mellitus with chronic kidney disease, without long-term current use of insulin, unspecified CKD stage ([facility]) TAKE 1 TABLET BY MOUTH EVERY MORNING 30 tablet 2 Active topiramate (Topamax) 25 MG tablet TAKE 1 TABLET BY MOUTH EVERY EVENING 30 tablet 2 Active white petrolatum-minera l oil (Lacri-Lube) ointment ophthalmic ointmentIndicatio ns:Dry eyes, bilateral Apply 1 Application. to both eyes if needed for dry eyes. 3.5 g Active zolpidem (Ambien) 10 MG tablet Take 1 tablet by mouth at bedtime. 023 2024 Discontinued Farxiga 10 MGIndications:Typ e 2 diabetes mellitus with chronic kidney disease, without long-term current use of insulin, unspecified CKD stage (HCC) TAKE 1 TABLET BY MOUTH EVERY MORNING 30 tablet 2 025 2024 Discontinued topiramate (Topamax) 25 MG tablet TAKE 1 TABLET BY MOUTH EVERY EVENING 30 tablet 2 025 2024 Discontinued Active Problems [...] Leukocytosis 03/10/2025 Malfunction of peripheral inserted central karla ter 03/10/2025 Mural thickening of small intestine [...] encounter 03/10/2025 Overview (03/10/2025): Tramadol pain contract [id number]/10/2022 IBS (irritable bowel syndrome) 03/10/2025 Slow transit [...] with specialist Coronary artery disease invo lving capitan grande coronary artery of capitan grande heart 05/20/2024 Assessment & Plan (03/10/2025 1:07 PM EDT): I refer patient to cardiology, she was being seen at [facility] but would like to be referred at the [facility] due to transportation issues Ecchymoses, spontaneous 02/02/2024 [...] Duoneb NBZ but advise to see her home appraiser if needed -has apt w high climber in 12/2023 Hyperkalemia 09/30/2023 Assessment & Plan [...] Acute kidney injury superimposed on CKD 01/20/20 23 Assessment & Plan (01/19/2023 4:49 PM EDT): [...] Encounters Date Type Department Care Team Description 03/20/2025 Orders Only GENERIC EXTERNAL DATA DEPARTMENT Provider, Generic External Data 03/16/2025 1:15 PM EDT Office Visit [facility] [address] [place], [place] [phone] Tarka, Tonya, OD Dry eyes, bilateral (Primary Dx) 03/16/2025 Travel 03/16/2025 Refill [facility] [address] [place] [address] Mary Rod MD Type 2 diabetes mellitus with chronic kidney disease, without long-term current use of insulin, unspecified CKD stage (HCC) 03/10/2025 9:45 AM EDT Office Visit [facility] [address] [place] [address] Mary Rod MD Coronary artery disease involving capitan grande coronary artery of capitan grande heart, unspecified whether angina present (Primary Dx); Type 2 diabetes mellitus with chronic kidney disease, without long-term current use of insulin, unspecified CKD stage ([facility]/HCC); Vertigo; Pre-syncope; Palpitations; Encounter for screening mammogram for malignant neoplasm of breast; Encounter for immunization 03/10/2025 Travel 03/08/[address] [address] Mary Rod MD chart prep 03/01/2025 Patient Outreach [address] [address] Mary Rod MD Pre-visit Planning (SDOH screening negative and tobacco screening negative) 02/16/2025 Orders Only GENERIC EXTERNAL DATA DEPARTMENT Provider, Generic External Data 02/07/2025 Orders Only GENERIC EXTERNAL DATA DEPARTMENT Provider, Generic External Data 12/27/2024 Orders Only [address] [address] Mary Rod MD Primary hypertension 12/27/2024 Telephone [facility] [address] [place] [address] Mary Rod MD Call Back Request 12/22/[address] [address] Mary Rod MD Spinal stenosis of lumbar [...] seasonal, injecta ble, preservative free 04/05/2012 Novel [id number] 05/14/2016 Pfizer Covid-19 Vaccine 12+ 06/18/2023 Pneumococcal [...] Description 03/31/2025 9:15 AM EDT Office Visit [facility] [address] [place] [address] Tonya Brennan, REBECCA [address] [place] [address] 05/15/2025 9:30 AM EST Office Visit [facility] [address] [place] [address] Tonya Brennan, OD [address] [place] [address] Health Maintenance Due Date Last Done Comments [...] 08/10/2025 025, 08/12/2024, 01/07/2024, Additional history exists Tobacco Screening 12/08/2025 12/08/2024 Lipid Panel 12/09/2025 12/09/2024, 11/13, 04/19/2021, Additional history exists Depression Screening 03/10/2026 03/10/2025, 03/10/20 25 SDOH Screening 03/10/2026 03/10/2025 Eye Exam 03/16/2026 03/16/2025, 10/14, 11/10/2024, Additional history exists DTaP/Tdap/Td Vaccines (2 - [...] topic Meningococcal Vaccine Aged Out No andrea kneneth eligible based on patient's age to complete [...] Date/Time Associated Diagnosis Comments T4, FREE Routine 03/20/2025 10:51 AM EDT TSH W/REFLEX TO FT4 Routine 03/20/2025 1 0:51 AM EDT POCT GLUCOSE Routine 03/10/2025 9:56 AM EDT Type 2 diabetes mellitus with chronic kidney disease, without long-term current use of insulin, unspecified CKD stage ([facility]) THYROID PEROXIDASE ANTIBODIES Routine 02/16/2025 12:12 PM [...] to Free T4 (03/20/2025 10:51 AM EDT) Only the most recent of3 resultswithin the time period is included. TSH reflex Free T4 0.03(L) 0.32 - 4.0 uIU/mL [facility] 03/20/2025 10:5 1 AM EDT 03/20/2025 10:51 AM EDT us Generic External Data Provider LAB BLOOD ORDERAB LES Final Result Performing Organization Address City/[facility]/ZIP Co de Phone Number [facility] [address] [place] [phone] * T4, Free (03/20/2025 10:51 AM EDT) Only the most recent of3 resultswithin the time period is included. Free T4 (Free Thyroxine) 1.37 0.71 - 1.85 ng/dL [facility] 03/20/2025 10:5 1 AM EDT 03/20/2025 10:51 AM EDT Generic External Data Provider LAB BLOOD ORDERAB LES Final Result Performing Organization Address [facility]/ZIP Co de Phone Number [facility] [address] [place] [phone] * (ABNORMAL) POCT Glucose (03/10/2025 9:56 AM EDT) Pathologist [facility] Glucose Blood, POC 202(A) 60 - 200 mg/dL QC Media Lot # [id number] Lot# Expiration Date Blood Capillary blood specimen / Unknown 03/10/2025 9:56 AM EDT Mary Rivera MD POINT OF CARE TEST EN TER/EDIT ORDERABLES Final Result * Thyroid Peroxidase Antibodies (02/16/2025 12:12 PM EDT) Thyroid Peroxidase Antibodies 1 <9 IU/mL [facility] Comment:THIS TEST WAS PERFOR MED AT:[facility] [place] [phone] HO MD 02/16/2025 12:1 2 PM EDT 02/16/2025 12:12 PM EDT us Generic External Data Provider LAB BLOOD ORDERAB LES Final Result [facility] [address] [place], [place] [phone] * (ABNORMAL) CBC auto differential (02/07/2025 11:02 AM EDT) White Blood Count 4.3(L) 4.8 - 10.8 X10*3/uL [facility] Red Blood Count 4.32 4.20 - 5.50 X10*6/uL [facility] Hemoglobin 12.8 12.0 - 16.0 g/dl [facility] Hematocrit 41.2 37.0 - 47.0 % [facility] Mean Corpuscular Volume 95.4 80.0 - 98.0 fL [facility] Mean Corpuscular Hemoglobin 29.6 27.0 - 33.0 pg [facility] Mean Corpuscular HGB Conc 31.1 31.0 - 35.0 g/dl [facility] Red Cell Distribution Width 15.3 11.0 - 16.0 % [facility] Platelet Count 282 160 - 400 X10*3/uL [facility] Mean Platelet Volume 10.8 9.4 - 12.3 fL [facility] Neutrophils Percent Auto 49.2 45 - 73 % [facility] Imm Gran Pct Auto 0.2 0.0 - 0.4 % [facility] Lymphocytes Percent Auto 35.9 20 - 40 % [facility] Monocytes Percent Auto 11.2(H) 2 - 11 % [facility] Eosinophils Percent Auto 2.6 0 - 4 % [facility] Basophils Percent Auto 0.9 0 - 2 % [facility] NRBC Pct Auto 0.0 0.0 - 0.2 /100WBC [facility] Neutrophils Absolute Auto 2.1 2.0 - 8.3 x10*3/uL [facility] Imm Gran Abs Auto 0.01 0.00 - 0.03 X10*3/uL [facility] Lymphocytes Absolute Auto 1.5 1.2 - 4.9 X10*3/uL [facility] Monocytes Absolute Auto 0.5 0.1 - 1.2 X10*3/uL [facility] Eosinophils Absolute Auto 0.1 0.0 - 0.4 X10*3/uL [facility] Basophils Absolute Auto 0.0 0.0 - 0.2 X10*3/uL [facility] NRBC Abs Auto 0.000 0.0 - 0.012 X10*3/uL [facility] 02/07/2025 11:0 2 AM EDT 02/07/2025 11:02 AM EDT Generic External Data Provider LAB BLOOD ORDERAB LES Final Result Performing Organization Address [facility] Co de Phone Number [facility] [address] [place] [phone] * (ABNORMAL) Prothrombin Time-INR (02/07/2025 11:02 AM EDT) Prothrombin Time 9.9(L) 10.9 - 12.4 SEC [facility] INTERNATIONAL NORM RATIO 0.9 0.9 - 1.1 [facility] Comment:INTERNATIONAL NORMAL IZED RATIO (INR) [...] ORDERAB LES Final Result Performing Organization Address [facility] Co de Phone Number [facility] [address] [place] [phone] * B Type Natriuretic Peptide (BNP) (02/07/2025 11:02 AM EDT) B Type Natriuretic Peptide 77 <100 pg/mL [facility] 02/07/2025 11:0 2 AM EDT 02/07/2025 11:02 AM EDT Generic External Data Provider LAB BLOOD ORDERAB LES Final Result Performing Organization Address [facility] Co de Phone Number [facility] [address] [place] [phone] * (ABNORMAL) Hemoglobin A1c (02/07/2025 11:02 AM EDT) Pathologist [facility] Hemoglobin A1c 6.7(H) <6.0 % [facility] Comment:Hemoglobin A1C Refer ence Range Adults: 4.8 - 6.0 % Non diabetic: < 6.0 % Goal: < 7.0 %Additional Action Suggested: > 8.0 %Note: Hemoglobin A1c results are invalid for patients with abnormal amounts of HbF. Blood transfusions may impact the HbA1c concentration in the patient sample. Estimated Average Glucose 146 mg/dL [facility] Comment:eAG = Estimated ave rage glucose which is %A1C expressed asaverage glucose, using the formula of the X6S-RvxoyujBdiyhla Glucose study (ADAG), Diabetes Care, Vol.31,#8,Jan. 2007 02/07/2025 11:0 2 AM EDT 02/07/2025 11:02 AM EDT us Generic External Data Provider LAB BLOOD ORDERAB LES Final Result Performing Organization Address [facility]/ZIP Co de Phone Number [facility] [address] [place] [phone] * (ABNORMAL) Comprehensive Metabolic Panel (02/07/2025 11:02 AM EDT) Pathologist [facility] Sodium 141 135 - 145 mmol/L [facility] Potassium 4.8 3.3 - 5.1 mmol/L [facility] Chloride 110(H) 96 - 108 mmol/L [facility] Carbon Dioxide 23 22 - 29 mmol/L [facility] Anion Gap 13 12 - 20 [facility] Urea Nitrogen (BUN) 12 9 - 16 mg/dL [facility] Creatinine, Serum 1.00 0.5 - 1.4 mg/dL [facility] Estimated Glomerular Filt Rate 54 [facility] Comment:Chronic Kidney Disea se: Estimated GFR < 60 mL/min/1.60o4Fvtfcx Kidney Disease: Estimated GFR < 15 mL/min/1.73m2 Glucose 75 60 - 115 mg/dL [facility] Calcium 9.2 8.4 - 10.2 mg/dL [facility] Bilirubin, Total 0.8 0.0 - 1.0 mg/dL [facility] Aspartate Amino Transferase 259(H) 5 - 31 U/L [facility] Alanine Aminotransferase 235(H) 0 - 31 U/L [facility] Total Protein 7.1 6.5 - 8.0 g/dL [facility] Albumin Level 4.2 3.5 - 5.0 g/dL [facility] Alkaline Phosphatase 119(H) 39 - 117 U/L [facility] 02/07/2025 11:0 2 AM EDT 02/07/2025 11:02 AM EDT us Generic External Data Provider LAB BLOOD ORDERAB LES Final Result [facility] [address] [place] [phone] * (ABNORMAL) Urinalysis, Complete, with Reflex to Culture (02/07/2025 10:53 AM EDT) Color Urine Dark Yellow [facility] Appearance Urine Cloudy [facility] PH 5.5 5.0 - 9.0 [facility] Glucose Urine UA >=1000(A) Negative mg/dL [facility] Urine Blood Small (1+)(A) Negative [facility] Specific Urania - Urine >=1.030(H) 1.005 - 1.025 [facility] Urine Protein 100 (2+)(A) Neg-Trace mg/dL [facility] Urine Ketones Negative Negative mg/dL [facility] Nitrite Urine Negative Negative [facility] Leukocyte Esterase Urine Negative Negative [facility] RBC Urine 6-10(A) 0 - 2 /HPF [facility] Urine WBC 0-5 0 - 5 /HPF [facility] Urine Squamous Epithelial Cell 0-2 0 - 2 /HPF [facility] Other Crystals Urine Present [facility] Comment:Calcium carbonate cr ystals noted Urine Bacteria None Seen None Seen [facility] Hyaline Casts, Urine 3-5 0 - 2 /LPF [facility] 02/07/2025 10:5 3 AM EDT 02/07/2025 11:23 AM EDT Narrative [facility] - 02/07/2025 11:58 AM EDT Urine, Clean Catch us Generic External Data Provider LAB URINE ORDERAB LES Final Result [facility] [address] [place] [phone] * (ABNORMAL) Urinalysis w/reflex microscopic (02/07/2025 10:53 AM EDT) Color Urine Dark Yellow [facility] Appearance Urine Cloudy [facility] PH 5.5 5.0 - 9.0 [facility] Glucose Urine UA >=1000(A) Negative mg/dL [facility] Urine Blood Small (1+)(A) Negative [facility] Specific Urania - Urine >=1.030(H) 1.005 - 1.025 [facility] Urine Protein 100 (2+)(A) Neg-Trace mg/dL [facility] Urine Ketones Negative Negative mg/dL [facility] Nitrite Urine Negative Negative [facility] Leukocyte Esterase Urine Negative Negative [facility] 02/07/2025 10:5 3 AM EDT 02/07/2025 11:23 AM EDT Narrative [facility] - 02/07/2025 11:40 AM EDT Urine, Clean Catch us Generic External Data Provider LAB URINE ORDERAB LES Final Result Performing Organization Address [facility] Co de Phone Number [facility] [address] [place] [phone] * Lipid Panel, Standard (12/09/2024 8:53 AM EDT) Triglycerides 72 <150 mg/dL [facility] Comment:Desirable Triglyceri de: less than 150 mg/dLBorderline High Triglyceride 150-199 mg/dLHigh Triglyceride: 200-499 mg/dLVery High Triglyceride: greater than or equal to 5OO mg/dL Cholesterol 113 <200 mg/dL [facility] Comment:Desirable Cholestero l: less than 200 mg/dLBorderline High Cholesterol: 200-239 mg/dLHigh Cholesterol: greater than 239 mg/dL LDL Cholesterol Calculated 51 <100 mg/dL [facility] Comment:Desirable LDL: less than 100 mg/dLNear Optimal/Above Optimal LDL: 110- 129 mg/dLBorderline High LDL: 130-159 mg/dLHigh LDL: 160-189 mg/dLVery High LDL: greater than or equal to 190 mg/dL HDL Cholesterol 48 >40 mg/dL [facility] Comment:Desirable HDL: great er than 40 mg/dL Note: This HDL assay may give artificially low results in patients with liver disease. Blood Venous blood specimen / Unknown 12/09/2024 8:53 AM EDT 12/09/2024 11:08 AM EDT us Mary Rivera MD LAB BLOOD ORDERABLES Final Result Performing Organization Address [facility]/ZIP Co de Phone Number [facility] [address] [place] [phone] * Hepatitis Panel, General (09/30/2024 8:24 AM EDT) Hepatitis A IgM Nonreactive Nonreactive [facility] Comment:IgM antibodies to LAZCANO V not detected; does not exclude earlyacute or recovered HAV infection. ~Hepatitis B Surface Antibody NONREACTIVE Nonreactive [facility] Comment:Nonreactive: < 8.00 mIU/mL Hepatitis B Core Antibody Nonreactive Nonreactive [facility] Hepatitis C Antibody Nonreactive Nonreactive [facility] Comment:Antibodies to HCV no t detected; does not exclude early acuteHCV infection. Hepatitis B Surface Ag Negative Negative [facility] 09/30/2024 8:24 AM EDT 09/30/2024 8:24 AM EDT us Generic External Data Provider LAB BLOOD ORDERAB LES Final Result [facility] [address] [place] [phone] * Colonoscopy (02/16/2023) Historical Provider HEALTH MAINTENANCE Final Result * BI Mammogram Screening Tomosynthesis Bilateral (01/08/2023 12:20 PM EDT) Anatomical Region Laterality Modality Breast Bilateral Mammography 01/08/2023 12:2 0 PM EDT Narrative 01/30/2023 10:10 AM EDT [facility] [address] [place] [address] Mammography Report Signed Patient: Hayley Marc MR#: [id number] : 1950 Acct:[id number] Age/Sex: 72 / F ADM Date: 01/08/23 Loc: HO.MAMMO Attending Dr: Mary Rivera MD Ordering Physician: Mary Rod MD Results: Date of Service: 01/08/23 Follow Up: Procedure(s): MM tomosynthesis screening BI Accession Number(s): [id number] cc: Mary Rod MD EXAMINATION: MM SCREENING [...] MD Signed By: <Electronically signed by Chris dAames MD in OV> 01/30/23 1007 DD/ 1220 TD/TT: Casing Running Machine Tender: Procedure Note Donotuseinterpreter, Image - 01/30/2023 [facility] [address] [place], [place] [address] Mammography Report Signed Patient: Josselin MarcR#: [id number] : 1950cct:[id number] Age/Sex: 72 / FADM Date: 01/08/23 Loc: HO.MAMMO Attending Dr: Mary Rivera MD Ordering Physician: Mary Rodesults: Date of Service: 01/08/23Follow Up: Procedure(s): MM tomosynthesis screening BI Accession Number(s): [id number] cc: Mary Rod MD EXAMINATION: MM SCREENING [...] in OV> 01/30/23 1007 DD/ 1220 TD/TT: Casing Running Machine Tender: Mary Rivera MD IMG BI PROCEDURES Kar peter Result - Final from Last 3 Months or Most Recently Relevant to Health Maintenance Insurance [facility] INTERMEDIATE OPTIONS (O D-SNP) Care Teams Conveyor Tender Relationship Specialty Start Date End Date Mary Rod MD [address] [place] [phone] PCP - General Family Medicine 02/07/22
== END 2025-03-20 10:43 | disposition home or self-care (01) ==
LOC: HO.LAB 10:42
PROVIDERS: PCP Internal Medicine; Visit Provider Nurse Practitioner
DX: E03.9 Hypothyroidism, unspecified (principal)
CPT/HCPCS: 36415; 84439; 84443

== ENCOUNTER 2025-04-07 10:39 | Outpatient (REF) | payer OTHER, SELFPAY ==
--- NOTE | ~2025-04-07 | XR_ITS ---
EXAMINATION: XR WRIST, LEFT CLINICAL INFORMATION: M25.532 - Pain in left wrist COMPARISON: 11/10/2024, 06/07/2024. TECHNIQUE: PA, lateral, and oblique views of the left wrist. FINDINGS: There is disuse osteopenia. Redemonstration of volar plate and screw fixation of the distal radius, with fixation screws spanning distal radial fractures which appear essentially healed. Stable anatomical alignment. Hardware appears intact and well seated without complication. Ulnar styloid avulsion fracture, also appearing essentially healed. Soft tissue swelling has improved. Mild dorsal swelling persists. Vascular calcifications diffusely. XR/XR wrist LT min 3V IMPRESSION: 1. Disuse osteopenia. 2. Redemonstration of distal radial ORIF fixating distal radial fractures, with essentially healed fractures. Stable anatomical alignment. 3. Essentially healed ulnar styloid avulsion fracture. Electronically signed by: Chris Adames MD 04/07/2025 11:47 AM EDT
== END 2025-04-07 10:40 | disposition home or self-care (01) ==
LOC: HO.HOSX 10:39
PROVIDERS: PCP Internal Medicine
DX: S52.502D Unspecified fracture of the lower end of left radius, subsequent encounter for closed fracture with routine healing (principal); S52.615S Nondisplaced fracture of left ulna styloid process, sequela; M77.12 Lateral epicondylitis, left elbow; M25.642 Stiffness of left hand, not elsewhere classified; G56.02 Carpal tunnel syndrome, left upper limb
CPT/HCPCS: 73110; 99212

== ENCOUNTER 2025-04-07 10:39 | Outpatient (AMB) | payer OTHER, SELFPAY ==
[2025-04-07 10:45] VITALS: BMI 27.5
--- NOTE | 2025-04-07 10:45 | A.OFFVIS_ITS ---
Vital Signs 04/07/25 10:45 Height 5 ft Weight 141 lb BMI 27.5 Intake Visit Reasons: OV: left CTS ROM Intake Note: Hayley is a 74 year old right hand dominant female who presents today for a ROM check s/p Left Distal Radius & Ulnar Styloid CRPP & Left Carpal Tunnel Release DOS: 04/07/[address] Peterson. At her last visit, a new referral to Occupational Therapy was placed. Patient was notified that due to the fact that she is proximally 1 year out from the inciting event of her stiffness, it is going to be incredibly difficult for her to regain full function. Patient reports today she has noticed improvement of her hand stiffness. She continues going to OT and using a sleeve as recommended by then. Plug Machine Operator Required: Yes Plug Machine Operator Language: Surfacing Machine Operator Services: Plug Machine Operator Present Plug Machine Operator Name: CAROL De Los SantosTeddy/RADHA Allergies No Known Allergies (No Known Allergies*) Allergy (Verified 04/07/25 10:46) HPI HPI OV: left CTS ROM: Details: Hayley is a 74 year old right hand dominant female who presents today for a ROM check s/p Left Distal Radius & Ulnar Styloid CRPP & Left Carpal Tunnel Release DOS: 04/07/[address] Peterson. At her last visit, a new referral to Occupational Therapy was placed. Patient was notified that due to the fact that she is proximally 1 year out from the inciting event of her stiffness, it is going to be incredibly difficult for her to regain full function. Patient reports today she has noticed improvement of her hand stiffness. She continues going to OT and using a sleeve as recommended by then. However, the patient does continue to report ongoing pain in the left wrist. [facility] Medical History Transaminitis Dysuria Dilated cbd, acquired Mural thickening of small intestine Abdominal pain Myocardial infarction Left hip pain Sacroiliac joint pain Elevated liver enzymes Right knee pain Left lumbar radiculitis Lumbago with sciatica Sepsis Right anterior knee pain Nausea and vomiting Candidiasis of mouth and esophagus Medication monitoring encounter Abnormal findings on diagnostic imaging of musculoskeletal system Asthma ANGIE (obstructive sleep apnea) Diabetes Esophageal dysmotilities Esophageal candidiasis Pneumonia Cystitis Recurrent UTI (urinary tract infection) Vitamin D deficiency Hypothyroidism Osteoporosis B12 deficiency Iron deficiency anemia IBS (irritable bowel syndrome) Surgical History H/O hand surgery H/O heart surgery Hx of gastric bypass History of esophagogastroduodenoscopy (EGD) Hx of colonoscopy History of arthroscopy of left shoulder Family History Father No problems noted. 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 Patient Tobacco Use Status: Never used Tobacco Advance Directives Date on File: 11/12/24 service: No Current occupational status: disabled Physical Exam Vital Signs: BMI result Body Mass Index 27.5 Const General: no acute distress and alert Orientation/consciousness: patient oriented x3 Neuro General: patient oriented x3 Extrem Other: Evaluation of Left Upper Extremity: The patient is alert, oriented, and in no acute distress Neuro: Median, Ulnar, Radial nerves motor and sensory intact and sensation is normal to the tips of all digits Vascular: Cap refill brisk ROM: She was anxious about moving her hand and wrist today in clinic. With encouragement she is able to make a closed fist Patient does report significant pain when doing this Wrist ROM: ~80 degrees pronation ~60 degrees supination ~ 20 degrees extension ~ 50 degrees flexion DRUJ stable on exam Fracture site non-tender Psych Appearance: grossly normal Affect: normal affect Attitude: cooperative Results Reviewed Results Reviewed: X-rays obtained in the office today and independently reviewed by me, Gerardo Brizuela PA-C, demonstrate well approximated and well healed left distal radius fracture with all orthopedic hardware in place and in satisfactory clinical alignment. Assessment & Plan Assessment & Plan (1) Closed fracture of left distal radius: Code(s): S52.502A - Unspecified fracture of the lower end of left radius, initial encounter for closed fracture Category: Medical (2) Lateral epicondylitis of left elbow: Code(s): M77.12 - Lateral epicondylitis, left elbow Category: Medical (3) Stiffness of left hand joint: Code(s): M25.642 - Stiffness of left hand, not elsewhere classified Category: Medical (4) Nondisplaced fracture of left ulna styloid process, sequela: Code(s): S52.615S - Nondisplaced fracture of left ulna styloid process, sequela Category: Medical (5) Carpal tunnel syndrome of left wrist: Code(s): G56.02 - Carpal tunnel syndrome, left upper limb Category: Medical Plan 1. Severe stiffness of left hand and wrist status post left distal radius ORIF DOS 04/07/2024 Patient appears to be recovering fairly well postoperatively Patient is educated about the typical recovery course Occupational therapy ordered once again for this patient Patient is educated that due to the fact that she has an proximally 1 year out from the inciting event of her stiffness, in his going to be incredibly difficult for her to regain full function of the hand at this time, however continuing OT is advisable to regain whatever function she can Patient will follow-up as needed r with any acute concerns Orders: Orders XR wrist LT min 3V Today M25.532 - Pain in left wrist Coding Level of Care Code Est Pt Level 3 (09439) Diagnoses Closed fracture of left distal radius S52.502A Lateral epicondylitis of left elbow M77.12 Stiffness of left hand joint M25.642 Nondisplaced fracture of left ulna styloid process, sequela S52.615S Carpal tunnel syndrome of left wrist G56.02
--- OUTSIDE RECORDS SUMMARY | 2025-04-07 12:15 | XMS_ITS | Encounter Summary ---
Author Organization [employer] Address [address] [place] [address] Care Team Providers Care Corporate Associate Name Role Phone Mary Rod MD Primary Care Provide r Reason for Visit * Reason Comments Med Refill Encounter Details Date Type Department Care Team (Late st Contact Info) Description 04/13/2023 Refill [facility] MEDICINE [address] [place], [place] [phone] Yara Tompkins MD [address] [place], [place] [phone] Social History Tobacco Use Types Packs/Day Years [...] Team (Late st Contact Info) Description 05/15/2025 9:30 AM EST Office Visit [facility] OPTOMETRY [address] [place] [address] Tonya Brennan, OD [address] [place] [address] 06/02/2025 11:00 AM EST Office Visit [facility] MEDICINE [address] [place] [address] Mary Rod MD [address] [place] [address] documented as of this encounter Goals Goal [...] documented as of this encounter Care Teams Corporate Associate Relationship Specialty Start Date End Date Mary Rod MD [address] [place] [address] PCP - General Family Medicine 02/07/22 Aubrey [facility] 11/16/24 01/15/25 documented as of this encounter
--- OUTSIDE RECORDS SUMMARY | 2025-04-07 12:15 | XMS_ITS | Clinical Summary ---
Author Organization [facility] Facility Address [address] [address] Care Team Providers Care Installer Metal Flooring Name Role Phone Natalee Rooney MD Primary Care Provider [phone] Allergies Active Allergy Reactions Criticality Noted Date [...] Visit [facility] [address] [place] [address] Rober Acharya MD [address] [facility] [address] [place] [address] Health Maintenance Due Date Last Done Comments [...] 04/23/2021, 04/26/2017, 04/05/2012, Additional history exists Insurance [facility] ([id number]) [facility] ([id number]) Care Teams Installer Metal Flooring Relationship Specialty Start Date End Date Natalee Rooney MD PCP - General Family Medicine 02/05/21
--- OUTSIDE RECORDS SUMMARY | 2025-04-07 12:15 | XMS_ITS | Data Portability ---
Author Organization [facility], [facility] Address [address] [place] [address] Care Team Providers Care Diamond Merchant Name Role Phone HIM CCA OTHER Unavailable Referring Provider Assessment Encounter Date Assessment Date [...] Assessment and Plan as documented by the Harnessmaker Apprentice. We discussed the diagnostic uncertainty of home [...] )to call 911- verbalized understanding of instruction [email or web address] Not available 06/06/2024 22:29:59 Plan of Treatment Reminders Order Date Submit Date Provider Last Modified By Organization Details Last Modified Time Details Appointments None recorded. Lab rapid flu (A+B) 2023 [email or web address] 0 Main - [facility], [address] [place] [address], [id number] 4 12:27:12 rapid SARS CoV 2 Ag, QL IA, respiratory specimen 2023 024 [email or web address] 0 Main - [facility], [address] [place] [address], [id number] 4 12:27:12 rapid strep group A, throat 2023 024 [email or web address] 0 Main - [facility], [address] [place] [address], [id number] 4 12:27:12 BMP, serum or plasma 2023 [email or web address] 0 Main - [facility], [address] [place] [address], [id number] 4 12:27:12 Referral None recorded. Procedures None recorded. Surgeries None recorded. Imaging None recorded. Medication Orders albuterol sulfate 2.5 mg/3 mL (0.083 %) solution for nebulizatio n 2023 [email or web address] 0 Not available 4 12:27:12 azithromyci n 250 mg tablet 2023 [email or web address] 0 Not available 12:27:12 azithromyci n 250 mg tablet 2023 [facility], [address] [place] [address], [id number], 4 10:06:34 potassium chloride ER 20 mEq tablet,exte nded release 2023 [email or web address] 0 Not available 4 12:27:12 prednisone 20 mg tablet 2023 [email or web address] 0 Not available 4 12:27:12 prednisone 20 mg tablet 2023 [facility], [address] [place] [address], [id number], 4 10:06:35 Mucinex DM 30 mg-600 mg tablet,exte nded release 12 hr 2023 [facility], [address] [place] [address], [id number], 5 11:34:59 Patient TargetsNo targets recorded. Patient InstructionsNo instructions recorded. Reason for Referral None Reported. Results Created Date Observation Date Name Description Value Unit Range Abnormal Flag Note LastModifiedBy Organization Detail LastModifiedTime 06/06/20 24 06/06/2024 rapid strep group A, throa t Strep negati ve Not Available Main - [facility] ed [address] [place] [address], [id number] 06/06/2024 11:26:51 06/06/20 24 06/06/2024 rapid SARS CoV 2 Ag, QL IA, respi rator y speci men rapid SARS CoV 2 Ag, QL IA, respiratory specimen negati ve Not Available [facility] - [facility] [address] [place] [address], [id number] 06/06/2024 11:26:50 06/06/20 24 06/06/2024 rapid flu (A+B) Flu negati ve Not Available [facility] - [facility] [address] [place] [address], [id number] 06/06/2024 11:26:49 Result Notes None recorded. Medical [...] blood by Pulse oximetry Heart rate Systolic And Diastolic Provider Name and Address Organization Details Last Updated DateTime 4 48687.0 4 g 16 /min 98 [degF] 152.4 cm 100 % 100 % 68 /min 100/69 mm[Hg] Not Available [employer] 11:40:00 Date Recorded Body height Provider Name an d Address Organization Details Last Updated DateTime 06/06/2024 152.4 cm Suzy Caldera [address] [place] [address],[address], [place], [address], [place] - [facility] 06/06/2024 12:10:31 Date Recorded Heart rate Oxygen saturation Oxygen saturation in Arterial blood by Pulse oximetry Respiratory rate Body temperature Systolic And Diastolic Provider Name and Address Organization Details Last Updated DateTime 4 78 /min 100 % 100 % 18 /min 98 [degF] 106/53 mm[Hg] Not Available [employer] [facility] [employer] 11:21:28 Social History None recorded. Functional Status None recorded. Mental Status None recorded. Family History Nothing Reported. Medical History No medical history recorded. Gynecological HistoryNo gynecological history recorded. Obstetrics History GPAL:G 0 P 0 0 0 0 Past Encounters Encounter ID Performer Location Encounter Start Date Encounter Closed Date Diagnosis/Indication Diagnosis SNOMED-CT Code Diagnosis ICD10 Code Diagnosis IMO Codes Diagnosis Note [id number] [facility] [address] [place] [phone] 12/14/2023 11:35:06 12/14/2023 18:48:14 Headache 06621240 R51.9 [id number] [facility]ilani Pendleton [facility] [address] [place] [phone] 06/06/2024 11:21:26 06/06/2024 23:50:20 Upper respiratory infection [id number] J06.9 w/ exacerbati on of asthma- improved after neb lungs cta but increased cough Will cover with azithromyc in and steroids/v ia Eritrean language line interprete r made patient aware [...] [employer] Member ID Guarantor Name 06/06/2024 1 [facility] - DOS ON OR AFTER 2022 - DUAL ELIGIBLE - USP OPTIONS AND ONE CARE (MEDICARE REPLACEMENT/ADV ANTAGE - HMO) Hayley Shannon [id number] Hayley Shannon Notes Date Note Type Note [...] Pt [facility]. [facility]. Confirmed allergies and that no pets in home. Reviewed home care advise, ER precautions and reasons to call back. ................... ................... ................... ................... ................... ................... ................... ........ CRC Nurse Triage Notes (Rachael Lo): Comments: HPI reviewed. No further information needed to process visit. Harnessmaker Apprentice POC Test Results from [facility] L[facility] iSTAT Chem8+ (13:24:48) Na: 142 mEq/L K: 5.0 mEq/L Cl: 110 mEq/L iCa: 1.21 mmol/L TCO2: 22 mmol/L Glu: 86 mg/dL BUN: 11 mg/dL Crea: 0.9 mg/dL Hct: 39 % Hb: 13.3 g/dL A ................... ................... ................... ................... ................... ................... ................... ........ Harnessmaker Apprentice Note From Gerardo Lazar: Smart[employer] visit for female patient. Pt presents conscious and alert. Pt Eritrean speaking only so historical interpreter services were used. Pt reports 4 days [...] bit low. Pt afebrile. Consulted with [facility] Dr. Rodriguez who advised blood drawn BMP and IV fluids. IV placed and BMP drawn and uploaded to [employer] jen. Dr. Rodriguez ordered 500 cc of normal saline in addition to 1 gram of IV magnesium, both given on scene. Reviewed red flags for ED and PT education provided. ................... ................... ................... ................... ................... ................... ................... ........ Disposition: Leann Rodriguez MD [address] [facility],[address], [place], [address], [facility] - [employer] [facility] 12/14/2023 15:10:31 06/06/2024 text/html ROS as noted in the HPI HPI: Call returned to Hayley Wang to triage below. Reports having asthma sx x 4 days. Pt having cough, fever and wheezing. Pt having to use inhaler Q4H. Pt also endorses ST. Pt had negative home kit for COVID-19 yesterday. Pt having chest tightness with cough. Pt advised of disposition, [facility]. Confirmed demographics and allergies. ................... ................... ................... ................... ................... ................... ................... ........ CRC Nurse Triage Notes (Nayely Arango - RN): Chief Complaints: Asthma, Cough PMH: COPD/Asthma, Hypertension, Hypothyroidism, Asthma, Diabetes Mellitus Type 2, Coronary Artery Disease Comments: HPI reviewed Harnessmaker Apprentice Organization Information for [employer] Legal Name: [employer]. Address: [address] [place] [address], Water/Wastewater Engineer: Mj Krause MD CLIA No.: [id number] Harnessmaker Apprentice POC Test Results from [employer] Rapid [...] ................... ................... ................... ................... ................... ................... ........ Harnessmaker Apprentice Note From [employer]: [facility] makes pt contact a 73 yo FF CC of cough/cold like [facility] obtains vital signs, [facility] uses historical interpreter services due to language barrier. PT explains she has been sick for 9 days including a fever, cough, congestion, productive phlegm consisting of dark green, pt has a hx of asthma, pt has a metal plate in chest from a resuscitation 4 months ago. PT is complaining of chest pain from the cough and not being able to sleep. [facility] tests for flu and covid, negative, tests for strep negative. PT has no allergies, a medication list is provided to [facility] contacts [facility], [facility] requests an istat which is obtained via butterfly in the left AC and bandaged appropriately, and uploaded. [facility] advises pt has bronchitis. [facility] orders 500mg of azithromycin, 40mg of prednisone, 40meq of potassium which is given po. [facility] also orders a nebulized albuterol treatment, PT reports minor relief from albuterol although pts lungs on reassessment are free of any wheezes. PT is also prescribed antibiotics which she is instructed to began taking tomorrow. [facility] explains red flags such as severe chest pain, severe sob, uncontrolled fever she should call us back or go to the hospital. [facility] also explains pt should stay hydrated and use the prescribed cough syrup to try and loosen up the pehlgm and also reduce her coughing. PT understands. [facility] clears ................... ................... ................... ................... ................... ................... ................... ........ [facility] Consulted: Leilani Pendleton ................... ................... ................... ................... ................... ................... ................... ........ Disposition: Fulfilled Leilani Pendleton MD [address] [facility],[address], [place], [address], [facility] 06/06/2024 22:30:16 OBGyn Episode No OBEpisode recorded.
--- OUTSIDE RECORDS SUMMARY | 2025-04-07 12:15 | XMS_ITS | Clinical Summary ---
Author Organization [employer] Address [address] [place] [address] [address] [place] [address] Care Team Providers Care Language Arts Teacher Name Role Phone Mary Rod MD Primary [...] 30 ML BY MOUTH THREE TIMES DAILY 05/08/2 024 Active Multiple Vitamins-Iron (Tab-A-Star/Iron /Beta Carotene) tablet Take 1 tablet by mouth every morning with food Active cyanocobalamin (Vitamin B-12) 1000 MCG tablet Take 1,000 mcg by mouth Once per day. Active pancrelipase, Jeu-Onxu-Sshy, (Creon) 85853-29956 units capsuleIndicatio ns:Pancreatic insufficiency TAKE 1 CAPSULE BY MOUTH FOUR TIMES DAILY WITH FOOD AND 1 CAPSULE WITH SNACKS DO NOT BREAK, CRUSH, DISSOLVE OR CHEW 120 capsule 3 024 Active lidocaine (Xylocaine) 5 % ointmentIndicati ons:Closed [...] 3 025 Active sucralfate (Carafate) 1 g tabletIndication s:Epigastric pain TAKE 1 TABLET BY MOUTH FOUR TIMES DAILY BEFORE MEALS AND AT BEDTIME 120 tablet 025 Active Diclofenac Sodium 1 % gelIndications:L eft hand pain APPLY 1 APPLICATION TOPICALLY TO AFFECTED AREA(S) EVERY TWELVE HOURS NEEDED 100 g 1 025 Active nystatin (Mycostatin) 019894 UNIT/GM powderIndication s:Intertrigo APPLY TO THE AFFECTED AREA(S) TOPICALLY TWICE DAILY 60 g 1 025 Active montelukast (Singulair) 10 MG tablet TAKE 1 TABLET BY MOUTH AT BEDTIME 30 tablet 3 025 Active gabapentin (Neurontin) 600 MG tabletIndication [...] 2 Active levothyroxine (Synthroid, Levoxyl) 125 MCG tabletIndication s:Acquired hypothyroidism TAKE 1 TABLET BY MOUTH EVERY MORNING BEFORE BREAKFAST 30 tablet 2 Active FREESTYLE LITE test stripIndications :Diabetic nephropathy associated with type 2 diabetes mellitus (HCC) Use to test blood sugar 1 times daily 100 each 12 025 2025 Active Lancets miscIndications: Diabetic nephropathy associated with type 2 diabetes mellitus (HCC) Use to test blood sugar 1 times daily 100 each 2 Active metoprolol succinate XL (Toprol-XL) 50 MG 24 hr tabletIndication s:Primary hypertension Take 0.5 tablets (25 mg) by mouth in the morning. 30 tablet 11 Active Farxiga 10 MGIndications:Ty pe 2 diabetes mellitus with chronic kidney disease, without long-term current use of insulin, unspecified CKD stage ([facility]) TAKE 1 TABLET BY MOUTH EVERY MORNING 30 tablet 2 Active topiramate (Topamax) 25 MG tablet TAKE 1 TABLET BY MOUTH EVERY EVENING 30 tablet 2 Active white petrolatum-examiner rating clerk al oil (Lacri-Lube) ointment ophthalmic ointmentIndicati ons:Dry eyes, bilateral Apply 1 Application. to both eyes if needed for dry eyes. 3.5 g Active Blood Glucose Monitoring Suppl (FreeStyle [place] Lite) w/Device kitIndications:D iabetic nephropathy associated with type 2 diabetes mellitus (HCC) Use to test blood sugar 1 times daily 1 kit Active Alcohol Swabs (Alcohol Prep) 70 % padsIndications: Diabetic nephropathy associated with type 2 diabetes mellitus (HCC) USE DIRECTED ONCE DAILY 100 each 3 025 Active zolpidem (Ambien) 10 MG tablet Take 1 tablet by mouth at bedtime. 023 2024 Discontinued Farxiga 10 MGIndications:Ty pe 2 diabetes mellitus with chronic kidney disease, without long-term current use of insulin, unspecified CKD stage (HCC) TAKE 1 TABLET BY MOUTH EVERY MORNING 30 tablet 2 025 2024 Discontinued topiramate (Topamax) 25 MG tablet TAKE 1 TABLET BY MOUTH EVERY EVENING 30 tablet 2 025 2024 Discontinued Alcohol Swabs 70 % padsIndications: Diabetic nephropathy associated with type 2 diabetes mellitus (HCC) Use to test blood sugar 1 times daily 100 each 025 2024 Discontinued Blood Glucose Monitoring Suppl (Tu Otro Super Lite) w/Device kitIndications:D iabetic nephropathy associated with type 2 diabetes mellitus (HCC) Use to test blood sugar 1 times daily 1 kit 025 2024 Discontinued(R eorder (will not trigger notification to Pharmacy)) meclizine (Antivert) 25 MG tabletIndication s:Vertigo Take 1 tablet (25 mg) by mouth if needed in the morning, at noon, and at bedtime for dizziness for up to 10 days. 30 tablet 2024 Active Problems Problem Noted Date Diagnosed Date [...] encounter 03/10/2025 Overview (03/10/2025): Tramadol pain contract [id number]/10/2022 IBS (irritable bowel syndrome) 03/10/2025 Slow transit [...] specialist Coronary artery disease invo lving [place] coronary artery of [place] heart 05/20/2024 Assessment & Plan (03/10/2025 1:07 PM EDT): I refer patient to cardiology, she was being seen at [facility] but would like to be referred at the [facility] due to transportation issues Ecchymoses, spontaneous [...] Duoneb NBZ but advise to see her project financial analyst if needed -has apt w protozoologist in 12/2023 Hyperkalemia 09/30/2023 Assessment & Plan [...] Encounters Date Type Department Care Team Description 03/30/2025 Refill [facility] [address] [place] [address] Mary Rod MD Diabetic nephropathy associated with type 2 diabetes mellitus (HCC) 03/27/2025 Telephone [facility] [address] [place] [address] Mary Rod MD dec recall 03/23/2025 Telephone [facility] [address] [place] [address] Mary Rod MD Medication Question 03/23/2025 Refill [facility] [address] [place] [address] Mary Rod MD Diabetic nephropathy associated with type 2 diabetes mellitus (HCC) 03/20/2025 Orders Only GENERIC EXTERNAL DATA DEPARTMENT Provider, Generic External Data 03/16/2025 1:15 PM EDT Office Visit [facility] [address] [place] [address] Joycemendoza Tonya, OD Dry eyes, bilateral (Primary Dx) 03/16/2025 Travel 03/16/2025 Refill [facility] [address] [place] [address] Mary Rod MD Type 2 diabetes mellitus with chronic kidney disease, without long-term current use of insulin, unspecified CKD stage ([facility]) 03/10/2025 9:45 AM EDT Office Visit [facility] [address] [place] [phone] Mary Rod MD Coronary artery disease involving [place] coronary artery of [place] heart, unspecified whether angina present (Primary Dx); Type 2 diabetes mellitus with chronic kidney disease, without long-term current use of insulin, unspecified CKD stage ([facility]/HCC); Vertigo; Pre-syncope; Palpitations; Encounter for screening mammogram for malignant neoplasm of breast; Encounter for immunization 03/10/2025 Travel 03/08/2025 Telephone [facility] [address] [place] [phone] Mary Rod MD chart prep 03/01/2025 Patient Outreach [facility] [address] [place] [phone] Mary Rod MD Pre-visit Planning (SDOH screening negative and tobacco screening negative) 02/16/2025 Orders Only GENERIC EXTERNAL DATA DEPARTMENT Provider, Generic External Data 02/07/2025 Orders Only GENERIC EXTERNAL DATA DEPARTMENT Provider, Generic External Data from Last 3 Months Immunizations Immunization Administration [...] seasonal, injecta ble, preservative free 04/05/2012 Novel [id number] 05/14/2016 Pfizer Covid-19 Vaccine 12+ 06/18/2023 Pneumococcal [...] Description 05/15/2025 9:30 AM EST Office Visit [facility] [address] [place] [address] Tonya Brennan, OD [address] [place] [address] 06/02/2025 11:00 AM EST Office Visit [facility] [address] [place] [address] Mary Rod MD [address] [place] [address] Health Maintenance Due Date Last Done Comments [...] Priority Date/Time Associated Diagnosis Comments XR WRIST 3+ VIEWS LEFT Routine 11:08 AM EDT T4, FREE Routine 03/20/2025 10:51 AM EDT TSH W/REFLEX TO FT4 Routine 03/20/2025 1 0:51 AM EDT POCT GLUCOSE Routine 03/10/2025 9:56 AM EDT Type 2 diabetes mellitus with chronic kidney disease, without long-term current use of insulin, unspecified CKD stage (CMS/HCC) THYROID PEROXIDASE ANTIBODIES Routine 02/16/2025 12:12 PM [...] Recently Relevant to Health Maintenance Results * XR Wrist 3+ Views Left (04/07/2025 11:08 AM EDT) Anatomical Region Laterality Modality Upper Extremities, Wrist Left Radiogr aphic Imaging 04/07/2025 11:0 8 AM EDT Narrative 04/07/2025 11:50 AM EDT [facility] [address] [place] [address] Drive [address] [place] [address] XRay Report Signed Patient: Hayley Marc MR#: [id number] : 1950 Acct:[id number] Age/Sex: 74 / F ADM Date: 04/07/25 Loc: HO.HOSX Attending Dr: Gerardo NEWELL Ordering Physician: Gerardo Brizuela Date of Service: 04/07/25 Procedure(s): XR wrist LT min 3V Accession Number(s): [id number] cc: Gerardo Brizuela; Mary Rod MD Reason for Exam: M25.532 - Pain in left wrist EXAMINATION: XR WRIST, LEFT CLINICAL INFORMATION: M25.532 - Pain in left wrist COMPARISON: 11/10/2024, 06/07/2024. TECHNIQUE: PA, lateral, and oblique views of the left wrist. FINDINGS: There is disuse osteopenia. Redemonstration of volar plate and screw fixation of the distal radius, with fixation screws spanning distal radial fractures which appear essentially healed. Stable anatomical alignment. Hardware appears intact and well seated without complication. Ulnar styloid avulsion fracture, also appearing essentially healed. Soft tissue swelling has improved. Mild dorsal swelling persists. Vascular calcifications diffusely. XR/XR wrist LT min 3V IMPRESSION: 1. Disuse osteopenia. 2. Redemonstration of distal radial ORIF fixating distal radial fractures, with essentially healed fractures. Stable anatomical alignment. 3. Essentially healed ulnar styloid avulsion fracture. Electronically signed by: Chris Adames MD 04/07/2025 11:47 AM EDT RP Dictated By: Chris Adames MD Signed By: <Electronically signed by Chris Adames MD in OV> 04/07/25 1147 DD/ 1108 TD/TT: 04/07/25 1110 Special Delivery Mail Carrier: Procedure Note Donotuseinterpreter, Image - 04/07/2025 [facility] [address] [place] [address] XRay Report Signed Patient: Josselin MarcR#: [id number] : 1950cct:[id number] Age/Sex: 74 / FADM Date: 04/07/25 Loc: [facility] Attending Dr: Gerardo NEWELL Ordering Physician: Gerardo Brizuela Date of Service: 04/07/25 Procedure(s): XR wrist LT min 3V Accession Number(s): [id number] cc: Gerardo Brizuela; Mary Rod MD Reason for Exam: M25.532 - Pain in left wrist EXAMINATION: XR WRIST, LEFT CLINICAL INFORMATION: M25.532 - Pain in left wrist COMPARISON: 11/10/2024, 06/07/2024. TECHNIQUE: PA, lateral, and oblique views of the left wrist. FINDINGS: There is disuse osteopenia. Redemonstration of volar plate and screw fixation of the distal radius, with fixation screws spanning distal radial fractures which appear essentially healed. Stable anatomical alignment. Hardware appears intact and well seated without complication. Ulnar styloid avulsion fracture, also appearing essentially healed. Soft tissue swelling has improved. Mild dorsal swelling persists. Vascular calcifications diffusely. XR/XR wrist LT min 3V IMPRESSION: 1. Disuse osteopenia. 2. Redemonstration of distal radial ORIF fixating distal radial fractures, with essentially healed fractures. Stable anatomical alignment. 3. Essentially healed ulnar styloid avulsion fracture. Electronically signed by: Chris Adames MD 04/07/2025 11:47 AM EDT RP Dictated By: Chris Adames MD Signed By: <Electronically signed by Chris Adames MD in OV> 04/07/25 1147 DD/ 1108 TD/TT: 04/07/25 1110 Special Delivery Mail Carrier: [facility] External Provider IMG XR PROCEDURES Final Result * (ABNORMAL) TSH with Reflex to Free T4 (03/20/2025 10:51 AM EDT) Only the most recent of3 resultswithin the time period is included. TSH reflex Free T4 0.03(L) 0.32 - 4.0 uIU/mL [facility] 03/20/2025 10:5 1 AM EDT 03/20/2025 10:51 AM EDT Generic External Data Provider LAB BLOOD ORDERAB LES Final Result Performing Organization Address City/[facility]/ZIP Co de Phone Number [facility] [address] [place] [address] [phone] * T4, Free (03/20/2025 10:51 AM EDT) Only the most recent of3 resultswithin the time period is included. Free T4 (Free Thyroxine) 1.37 0.71 - 1.85 ng/dL [facility] 03/20/2025 10:5 1 AM EDT 03/20/2025 10:51 AM EDT Generic External Data Provider LAB BLOOD ORDERAB LES Final Result Performing Organization Address City/[facility]/ZIP Co de Phone Number [facility] [address] [place] [phone] * (ABNORMAL) POCT Glucose (03/10/2025 9:56 AM EDT) Glucose Blood, POC 202(A) 60 - 200 mg/dL QC Media Lot # [id number] Lot# Expiration Date Blood Capillary blood specimen / Unknown 03/10/2025 9:56 AM EDT us Mary Rivera MD POINT OF CARE TEST EN TER/EDIT ORDERABLES Final Result * Thyroid Peroxidase Antibodies (02/16/2025 12:12 PM EDT) Thyroid Peroxidase Antibodies 1 <9 IU/mL [facility] Comment:THIS TEST WAS PERFOR MED AT:[address] [place] [id number] HO MD 02/16/2025 12:1 2 PM EDT 02/16/2025 12:12 PM EDT Generic External Data Provider LAB BLOOD ORDERAB LES Final Result [facility] [address] [place] [address] [phone] * (ABNORMAL) CBC auto differential (02/07/2025 11:02 AM EDT) White Blood Count 4.3(L) 4.8 - 10.8 X10*3/uL [facility] Red Blood Count 4.32 4.20 - 5.50 X10*6/uL [facility] Hemoglobin 12.8 12.0 - 16.0 g/dl [facility] Hematocrit 41.2 37.0 - 47.0 % [facility] Mean Corpuscular Volume 95.4 80.0 - 98.0 fL [facility] Mean Corpuscular Hemoglobin 29.6 27.0 - 33.0 pg [facility] Mean Corpuscular HGB Conc 31.1 31.0 - 35.0 g/dl [facility] Red Cell Distribution Width 15.3 11.0 - 16.0 % [facility] Platelet Count 282 160 - 400 X10*3/uL [facility] Mean Platelet Volume 10.8 9.4 - 12.3 fL [facility] Neutrophils Percent Auto 49.2 45 - 73 % [facility] Imm Gran Pct Auto 0.2 0.0 - 0.4 % [facility] Lymphocytes Percent Auto 35.9 20 - 40 % [facility] Monocytes Percent Auto 11.2(H) 2 - 11 % [facility] Eosinophils Percent Auto 2.6 0 - 4 % [facility] Basophils Percent Auto 0.9 0 - 2 % [facility] NRBC Pct Auto 0.0 0.0 - 0.2 /100WBC [facility] Neutrophils Absolute Auto 2.1 2.0 - 8.3 x10*3/uL [facility] Imm Gran Abs Auto 0.01 0.00 - 0.03 X10*3/uL [facility] Lymphocytes Absolute Auto 1.5 1.2 - 4.9 X10*3/uL [facility] Monocytes Absolute Auto 0.5 0.1 - 1.2 X10*3/uL [facility] Eosinophils Absolute Auto 0.1 0.0 - 0.4 X10*3/uL [facility] Basophils Absolute Auto 0.0 0.0 - 0.2 X10*3/uL [facility] NRBC Abs Auto 0.000 0.0 - 0.012 X10*3/uL [facility] 02/07/2025 11:0 2 AM EDT 02/07/2025 11:02 AM EDT us Generic External Data Provider LAB BLOOD ORDERAB LES Final Result [facility] [address] [place] [address] [phone] * (ABNORMAL) Prothrombin Time-INR (02/07/2025 11:02 AM EDT) Prothrombin Time 9.9(L) 10.9 - 12.4 SEC [facility] INTERNATIONAL NORM RATIO 0.9 0.9 - 1.1 [facility] Comment:INTERNATIONAL NORMAL IZED RATIO (INR) [...] ORDERAB LES Final Result Performing Organization Address City/[facility]/ZIP Co de Phone Number [facility] [address] [place] [phone] * B Type Natriuretic Peptide (BNP) (02/07/2025 11:02 AM EDT) B Type Natriuretic Peptide 77 <100 pg/mL [facility] 02/07/2025 11:0 2 AM EDT 02/07/2025 11:02 AM EDT [employer] External Data Provider LAB BLOOD ORDERAB LES Final Result Performing Organization Address [facility] Co de Phone Number [facility] [address] [place] [phone] * (ABNORMAL) Hemoglobin A1c (02/07/2025 11:02 AM EDT) Hemoglobin A1c 6.7(H) <6.0 % [facility] Comment:Hemoglobin A1C Refer ence Range Adults: 4.8 - 6.0 % Non diabetic: < 6.0 % Goal: < 7.0 %Additional Action Suggested: > 8.0 %Note: Hemoglobin A1c results are invalid for patients with abnormal amounts of HbF. Blood transfusions may impact the HbA1c concentration in the patient sample. Estimated Average Glucose 146 mg/dL [facility] Comment:eAG = Estimated ave rage glucose which is %A1C expressed asaverage glucose, using the formula of the L4B-LzuojypRprbgxt Glucose study (ADAG), Diabetes Care, Vol.31,#8,2007 02/07/2025 11:0 2 AM EDT 02/07/2025 11:02 AM EDT us Generic External Data Provider LAB BLOOD ORDERAB LES Final Result [facility] [address] [place] [phone] * (ABNORMAL) Comprehensive Metabolic Panel (02/07/2025 11:02 AM EDT) Sodium 141 135 - 145 mmol/L [facility] Potassium 4.8 3.3 - 5.1 mmol/L [facility] Chloride 110(H) 96 - 108 mmol/L [facility] Carbon Dioxide 23 22 - 29 mmol/L [facility] Anion Gap 13 12 - 20 [facility] Urea Nitrogen (BUN) 12 9 - 16 mg/dL [facility] Creatinine, Serum 1.00 0.5 - 1.4 mg/dL [facility] Estimated Glomerular Filt Rate 54 [facility] Comment:Chronic Kidney Disea se: Estimated GFR < 60 mL/min/1.45q0Rszyoe Kidney Disease: Estimated GFR < 15 mL/min/1.73m2 Glucose 75 60 - 115 mg/dL [facility] Calcium 9.2 8.4 - 10.2 mg/dL [facility] Bilirubin, Total 0.8 0.0 - 1.0 mg/dL [facility] Aspartate Amino Transferase 259(H) 5 - 31 U/L [facility] Alanine Aminotransferase 235(H) 0 - 31 U/L [facility] Total Protein 7.1 6.5 - 8.0 g/dL [facility] Albumin Level 4.2 3.5 - 5.0 g/dL [facility] Alkaline Phosphatase 119(H) 39 - 117 U/L [facility] 02/07/2025 11:0 2 AM EDT 02/07/2025 11:02 AM EDT us Generic External Data Provider LAB BLOOD ORDERAB LES Final Result Performing Organization Address [facility]/ZIP Co de Phone Number [facility] [address] [place] [phone] [phone] * (ABNORMAL) Urinalysis, Complete, with Reflex to Culture (02/07/2025 10:53 AM EDT) Color Urine Dark Yellow [facility] Appearance Urine Cloudy [facility] PH 5.5 5.0 - 9.0 [facility] Glucose Urine UA >=1000(A) Negative mg/dL [facility] Urine Blood Small (1+)(A) Negative [facility] Specific Baring - Urine >=1.030(H) 1.005 - 1.025 [facility] Urine Protein 100 (2+)(A) Neg-Trace mg/dL [facility] Urine Ketones Negative Negative mg/dL [facility] Nitrite Urine Negative Negative [facility] Leukocyte Esterase Urine Negative Negative [facility] RBC Urine 6-10(A) 0 - 2 /HPF [facility] Urine WBC 0-5 0 - 5 /HPF [facility] Urine Squamous Epithelial Cell 0-2 0 - 2 /HPF [facility] Other Crystals Urine Present [facility] Comment:Calcium carbonate cr ystals noted Urine Bacteria None Seen None Seen [facility] Hyaline Casts, Urine 3-5 0 - 2 /LPF [facility] 02/07/2025 10:5 3 AM EDT 02/07/2025 11:23 AM EDT Narrative [facility] - 02/07/2025 11:58 AM EDT Urine, Clean Catch us Generic External Data Provider LAB URINE ORDERAB LES Final Result Performing Organization Address [facility]/ZIP Co de Phone Number [facility] [address] [place] [address] [phone] * (ABNORMAL) Urinalysis w/reflex microscopic (02/07/2025 10:53 AM EDT) Color Urine Dark Yellow [facility] Appearance Urine Cloudy [facility] PH 5.5 5.0 - 9.0 [facility] Glucose Urine UA >=1000(A) Negative mg/dL [facility] Urine Blood Small (1+)(A) Negative [facility] Specific Baring - Urine >=1.030(H) 1.005 - 1.025 [facility] Urine Protein 100 (2+)(A) Neg-Trace mg/dL [facility] Urine Ketones Negative Negative mg/dL [facility] Nitrite Urine Negative Negative [facility] Leukocyte Esterase Urine Negative Negative [facility] 02/07/2025 10:5 3 AM EDT 02/07/2025 11:23 AM EDT Narrative [facility] - 02/07/2025 11:40 AM EDT Urine, Clean Catch us Generic External Data Provider LAB URINE ORDERAB LES Final Result [facility] [address] [place] [phone] * Lipid Panel, Standard (12/09/2024 8:53 AM EDT) Triglycerides 72 <150 mg/dL [facility] Comment:Desirable Triglyceri de: less than 150 mg/dLBorderline High Triglyceride 150-199 mg/dLHigh Triglyceride: 200-499 mg/dLVery High Triglyceride: greater than or equal to 5OO mg/dL Cholesterol 113 <200 mg/dL [facility] Comment:Desirable Cholestero l: less than 200 mg/dLBorderline High Cholesterol: 200-239 mg/dLHigh Cholesterol: greater than 239 mg/dL LDL Cholesterol Calculated 51 <100 mg/dL [facility] Comment:Desirable LDL: less than 100 mg/dLNear Optimal/Above Optimal LDL: 110- 129 mg/dLBorderline High LDL: 130-159 mg/dLHigh LDL: 160-189 mg/dLVery High LDL: greater than or equal to 190 mg/dL HDL Cholesterol 48 >40 mg/dL [facility] Comment:Desirable HDL: great er than 40 mg/dL Note: This HDL assay may give artificially low results in patients with liver disease. Blood Venous blood specimen / Unknown 12/09/2024 8:53 AM EDT 12/09/2024 11:08 AM EDT us Mary Rivera MD LAB BLOOD ORDERABLES Final Result Performing Organization Address [facility]/ZIP Co de Phone Number [facility] [address] [place] [address] [phone] * Hepatitis Panel, General (09/30/2024 8:24 AM EDT) Hepatitis A IgM Nonreactive Nonreactive [facility] Comment:IgM antibodies to LAZCANO V not detected; does not exclude earlyacute or recovered HAV infection. ~Hepatitis B Surface Antibody NONREACTIVE Nonreactive [facility] Comment:Nonreactive: < 8.00 mIU/mL Hepatitis B Core Antibody Nonreactive Nonreactive [facility] Hepatitis C Antibody Nonreactive Nonreactive [facility] Comment:Antibodies to HCV no t detected; does not exclude early acuteHCV infection. Hepatitis B Surface Ag Negative Negative [facility] 09/30/2024 8:24 AM EDT 09/30/2024 8:24 AM EDT us Generic External Data Provider LAB BLOOD ORDERAB LES Final Result Performing Organization Address [facility]/ZIP Co de Phone Number [facility] [address] [place] [address] [phone] * Hm Colonoscopy (02/16/2023) us Historical Provider HEALTH MAINTENANCE Final Result * BI Mammogram Screening Tomosynthesis Bilateral (01/08/2023 12:20 PM EDT) Anatomical Region Laterality Modality Breast Bilateral Mammography 01/08/2023 12:2 0 PM EDT Narrative 01/30/2023 10:10 AM EDT [place] [facility] [address] [place] [address] Mammography Report Signed Patient: Hayley Marc MR#: [id number] : 1950 Acct:[id number] Age/Sex: 72 / F ADM Date: 01/08/23 Loc: HO.MAMMO Attending Dr: Mary Rivera MD Ordering Physician: Mary Rod MD Results: Date of Service: 01/08/23 Follow Up: Procedure(s): MM tomosynthesis screening BI Accession Number(s): [id number] cc: Mary Rod MD EXAMINATION: MM SCREENING [...] in OV> 01/30/23 1007 DD/ 1220 TD/TT: Special Delivery Mail Carrier: Procedure Note Donotuseinterpreter, Image - [facility]30/[facility] [address] [place] [address] Mammography Report Signed Patient: Susan Marc#: MM [id number] : 2Acct:[id number] Age/Sex: 72 / FADM Date: 01/08/23 Loc: HO.MAMMO Attending Dr: Mary Rivera MD Ordering Physician: Mary Rod MDResults: Date of Service: 01/08/23Follow Up: Procedure(s): MM tomosynthesis screening BI Accession Number(s): [id number] cc: Mary Rod MD EXAMINATION: MM SCREENING [...] in OV> 01/30/23 1007 DD/ 1220 TD/TT: Special Delivery Mail Carrier: Mary Rivera MD IMG BI PROCEDURES [employer] Result - Final from Last 3 Months or Most Recently Relevant to Health Maintenance Insurance [facility] LONG-TERM OPTIONS (HMO D-SNP) Care Teams Language Arts Teacher Relationship Specialty Start Date End Date Mary Rod MD [address] [place], [place] [id number] PCP - General Family Medicine 02/07/22
--- OUTSIDE RECORDS SUMMARY | 2025-04-07 12:15 | XMS_ITS | Encounter Summary ---
Author Organization [employer] Address [address] [facility] 7t [place] [address] Care Team Providers Care Motor Inspection Mechanic Name Role Phone Mary Rod MD Primary Care Provide r Encounter Details Date Type Department Care Team ([facility] st Contact Info) Description 03/25/2023 Orders Only [facility] MEDICINE [address] [place], [place] [phone] ProviderLinsey MD Social History Tobacco Use Types [...] Description 05/15/2025 9:30 AM EST Office Visit [facility] OPTOMETRY [address] [place], [place] [phone] Tonya Brennan, OD [address] [place] [address] 06/02/2025 11:00 AM EST Office Visit [facility] MEDICINE [address] [place] [address] Mary Rod MD [address] [place], [place] [phone] documented as of this encounter Goals Goal [...] documented as of this encounter Care Teams Motor Inspection Mechanic Relationship Specialty Start Date End Date Mary Rod MD [address] [place] [address] PCP - General Family Medicine 02/07/22 Tequila MCCURDYA 11/16/24 01/15/25 documented as of this encounter
--- OUTSIDE RECORDS SUMMARY | 2025-04-07 12:15 | XMS_ITS | Patient Health Record ---
Author Organization [facility] Address [address] [place] [address] Care Team Providers Care Regional Wildlife Agent Name Role Phone Rogelio TOWNSEND, Laurent Primary Care Provider Frank Hernandez Unavailable [phone] Charles Clemons Unavailable Unavailable Reason For Referral No Information Medications Medication SIG (Take, Route, Frequency, Duration) Notes Start Date End Date Status Glucose Active Ketoconazole Active MiraLax Miralax as directed Orally t id; Duration: 30 days Active clonazePAM Active Reguloid Active ProAir HFA Active Zolpidem Tartrate Ac tive MiraLax Miralax as directed Orally t id; Duration: 30 days Active Pantoprazole Sodium Active Linzess 145 MCG 2 capsules Orally On ce a day; Duration: 30 day(s) 02/09/2014 Active Crestor Active Colace 100 MG 1 capsule as needed Orally bid; Duration: 30 day(s) Active metFORMIN HCl Active Colace 100 MG 1 capsule as needed Orally bid; Duration: 30 day(s) Active Calcium Active MiraLax Miralax as directed Orally t id; Duration: 30 days Active Gabapentin Active Metoprolol & Diet Manage Prod Active Effexor XR Active Calcitonin ([place]) Active Fluticasone Propionate Active Colace 100 MG 1 capsule as needed Orally bid; Duration: 30 day(s) Active Lisinopril Active Q-PAP Active Vitamin D Active Doc-Q-Lace 100mg 1 capsule oraly twic e a day for constipation; Duration: 30 days 11/11/2012 Active FreeStyle Lite Test Active Cyanocobalamin Activ e HYDROcodone-Acetaminophen BID Active Levothyroxine Sodium Active Problems Problem Type SNOMED Code ICD Code Onset Dates Problem Status W/U Status Risk Notes Problem Slow transit constipation (63321176) Slow transit constipation (K59.01) Active confirmed Plan Of Treatment Future Test Test Name Order Date UPPER GI ENDOSCOPY 12/01/2012 COLONOSCOPY 12/01/2012 Insurance Providers Payer Name Payer Address Payer Phone Subscriber Number Group Number Insured Name Patient Relationship to Insured Coverage Start Date Coverage End Date [facility] [address] [place] [phone] [id number] AMARILIS ENRIQUEZ Self - patient is the insured MEDICAID OF [employer] [address] [place] [address] [id number] AMARILIS ENRIQUEZ Self - patient is the insured Medical (General) History Medical History History ICD Code NIDDM hypertension Denies [place],CVA,renal disease Colonoscopy in 08/2007 at [facility] C with Dr. Howe-1 tubular adenoma removed, but poor prep; F/U colonoscopy in 05/2008 at [facility] was negative and with an excellent prep as per the report asthma/bronchitis Depression Hypothyroidism hyperlipidemia GERD 02/2013-neg colonoscopy except diverticul osis and internal hemorrhoids 02/2013-EGD with a small HH and anatomy c /w her gastric bypass 04/2013 nd 12/2014-neg CT of abd/pelvis Chronic constipation Surgical History Surgery Date(Month/Year) cataracts gastric [id number] [facility]-lost 100 # [facility] Shoulder appendectomy varicose vein stripping
--- OUTSIDE RECORDS SUMMARY | 2025-04-07 12:15 | XMS_ITS | Encounter Summary ---
Author Organization [employer] Address [address] [facility] 7t [place] [address] Care Team Providers Care Demolition Specialist Name Role Phone Mary Rod MD Primary Care Provide r Reason for Visit * Reason Onset Date Comments Med Refill 10/12/2024 Encounter Details Date Type Department Care Team ([facility] st Contact Info) Description 10/12/2024 Telephone [facility] MEDICINE [address] [place], [place] [phone] Mary Rod MD [address] [place], [place] [phone] Med Refill Social History Tobacco Use Types [...] Nassar LPN - 10/12/2024 8:36 AM EDT [employer] checked on 10/12/24 Ambien last filled on 08/04/24 by Mariaelena Yan. * Telephone Encounter - Michael Fabian - 10/12/2024 8:30 AM EDT TC from pt requesting medication refill. Medications needing refill : zolpidem (Ambien) 10 MG tablet To be sent to: [facility] - [place], [place] - [address] [place] [address] documented in this encounter Plan of Treatment Upcoming Encounters Date Type Department Care Team (Late st Contact Info) Description 05/15/2025 9:30 AM EST Office Visit [facility] OPTOMETRY [address] [place] [address] Tonya Brennan, OD [address] [place] [address] 06/02/2025 11:00 AM EST Office Visit [facility] MEDICINE [address] [place] [address] Mary Rod MD [address] [place] [address] documented as of this encounter Goals Goal [...] documented as of this encounter Care Teams Demolition Specialist Relationship Specialty Start Date End Date Mary Rod MD [address] [place] [address] PCP - General Family Medicine 02/07/22 [facility] 11/16/24 01/15/25 documented as of this encounter
--- OUTSIDE RECORDS SUMMARY | 2025-04-07 12:15 | XMS_ITS | Encounter Summary ---
Author Organization [employer] Address [address] [place] [address] 7t [place] [address] Care Team Providers Care Vascular Nurse Name Role Phone Mary Rod MD Primary Care Provide r Encounter Details Date Type Department Care Team (Late st Contact Info) Description 11/12/2022 [facility] Health Information Management [address] [place] [address] Mary Rod MD [address] [place] [address] Social History Tobacco Use Types Packs/Day Years [...] Description 05/15/2025 9:30 AM EST Office Visit [facility] OPTOMETRY [address] [place] [address] Tonya Brennan, OD [address] [place] [address] 06/02/2025 11:00 AM EST Office Visit [facility] MEDICINE 230 [place], [place] [phone] Mary Rod MD [address] [place], [place] [phone] documented as of this encounter Goals Goal [...] documented as of this encounter Care Teams Vascular Nurse Relationship Specialty Start Date End Date Mary Rod MD [address] [place] [address] PCP - General Family Medicine 02/07/22 [facility] [facility] 11/16/24 01/15/25 documented as of this encounter
--- OUTSIDE RECORDS SUMMARY | 2025-04-07 12:15 | XMS_ITS | Encounter Summary ---
Author Organization [employer] Address [address] [facility] 7t [place] [address] Care Team Providers Care Production Team Manager Name Role Phone Mary Rod MD Primary Care Provide r Encounter Details Date Type Department Care Team (Late st Contact Info) Description 03/24/2023 Abstract [facility] MEDICINE [address] [place], [place] [phone] Tonia Cardoza Social History Tobacco Use Types [...] Description 05/15/2025 9:30 AM EST Office Visit [facility] OPTOMETRY [address] [place], [place] [phone] Mika Tonya, OD [address] [place] [address] 06/02/2025 11:00 AM EST Office Visit [facility] MEDICINE [address] [place] [address] Mary Rod MD [address] [place] [address] documented as of this encounter Goals Goal [...] documented as of this encounter Care Teams Production Team Manager Relationship Specialty Start Date End Date Mary Rod MD [address] [place], [place] [phone] PCP - General Family Medicine 02/07/22 [place] [facility] 11/16/24 01/15/25 documented as of this encounter
== END 2025-04-07 11:29 | disposition home or self-care (01) ==
LOC: HO.HOS 10:39
PROVIDERS: PCP Internal Medicine
DX: S52.502A Unspecified fracture of the lower end of left radius, initial encounter for closed fracture (principal); M77.12 Lateral epicondylitis, left elbow; M25.642 Stiffness of left hand, not elsewhere classified; S52.615S Nondisplaced fracture of left ulna styloid process, sequela; G56.02 Carpal tunnel syndrome, left upper limb
CPT/HCPCS: 99213

== ENCOUNTER → 2025-04-07 11:08 | Outpatient (BNV) | payer OTHER, SELFPAY | PROVIDERS: PCP Internal Medicine; Visit Provider Radiology Diagnostic Radiology | DX: M25.532 Pain in left wrist (principal) | CPT/HCPCS: 73110 ==

== ENCOUNTER 2025-04-12 09:42 | Outpatient (RCR) | payer OTHER, SELFPAY ==
--- NOTE | 2025-02-22 13:31 | MHC.OT.EP ---
[facility] Office [address] [facility] [phone] F: [phone] F: [phone] Occupational Therapy Plan of Care Patient Name: Hayley Wang Date of Evaluation: 02/22/25 Diagnosis: L DRF, wrist/hand stiffness, lateral epicondylitis Pain Location: elbow, FA, hand, wrist Pain Score: 8 Pain Scale Used: Numeric (0 - 10) Aggravating Factors: Alleviating Factors: nothing has trialed pain meds, tramadol etc Assessment: Pt is a 74 yr old R hand dominant female who injured her L hand in March of 2024 when she fell. She had ORIF, CRPP, and CTR surgery and then [place] [facility] she reports some improvement. Pt then had home OT and did NOT have good results and reports a setback in ROM originally achieved. She then returned to the MD due to a new pain along the ulnar side of her wrist/FA, and elbow. She reports being in constant pain, stiffness, and avoids using her L UE. She presents today w/ minimal Wrist/ FA ROM, an inability to make a fist, decreased strength, and pain w/ palpation of her lateral epicondyle. Pt would benefit from skilled OT Therapy to address these deficits and increase the functional use of her L hand. Frequency and Duration: The patient will be seen 2xs a week for 6 weeks Short Term Goals: Pt will report 4/10 pain w/ active use of her L UE Pt will be complaint in use of modalities (HEAT) Pt will have 40 of wrist flexion w/out pain Snf Goals: Pt will be able to make a composite fist Pt will report 2/10 pain w/ activity Pt will report using her L UE to hold a plate for 4 consecutive minutes w/ out difficulty Treatment Plan: Therapeutic Exercise Therapeutic Activity Home Exercise Program Splinting Neuro Re-ed Patient Education Desensitization/Sensory Re-ed Edema Control ADL Training Ultrasound NMES Paraffin Fluidotherapy MHP Cold Packs Joint Mobilization Soft Tissue Mobilization Kinesiotaping Electronically Signed By: Sophia Staples OTR/L Please Sign and return to therapist. Thank you once again for your referral.
--- NOTE | 2025-03-28 13:26 | MHC.OT.EP ---
[facility] Office [address] [facility] [phone] F: [phone] F: [phone] Occupational Therapy Plan of Care Patient Name: Hayley Wang Date of Evaluation: 03/28/25 Diagnosis: L DRF, wrist/hand stiffness, lateral epicondylitis Pain Location: elbow, FA, hand, wrist Pain Score: 8 Pain Scale Used: Numeric (0 - 10) Aggravating Factors: Alleviating Factors: nothing has trialed pain meds, tramadol etc Assessment: Pt is a 74 yr old R hand dominant female who injured her L hand in March of 2024 when she fell. She had ORIF, CRPP, and CTR surgery and then had OT therapy at [facility] [place] [place], were she reports some improvement. Pt then had home OT and did NOT have good results and reports a setback in ROM originally achieved. She then returned to the MD due to a new pain along the ulnar side of her wrist/FA, and elbow. She reports being in constant pain, stiffness, and avoids using her L UE. She presents today w/ minimal Wrist/ FA ROM, an inability to make a fist, decreased strength, and pain w/ palpation of her lateral epicondyle. Pt would benefit from skilled OT Therapy to address these deficits and increase the functional use of her L hand. Frequency and Duration: The patient will be seen 2xs a week for 2 weeks Short Term Goals: Pt will report 4/10 pain w/ active use of her L UE Pt will be complaint in use of modalities (HEAT) MET Pt will have 40 of wrist flexion w/out pain MET Halfway Goals: Pt will be able to make a composite fist Pt will report 2/10 pain w/ activity Pt will report using her L UE to hold a plate for 4 consecutive minutes w/ out difficulty Treatment Plan: Therapeutic Exercise Therapeutic Activity Home Exercise Program Splinting Neuro Re-ed Patient Education Desensitization/Sensory Re-ed Edema Control ADL Training Ultrasound Paraffin Fluidotherapy MHP Cold Packs Joint Mobilization Soft Tissue Mobilization Kinesiotaping Electronically Signed By: Sophia Staples OTR/L Please Sign and return to therapist. Thank you once again for your referral.
== END 2025-04-12 11:06 | disposition home or self-care (01) ==
LOC: HO.OT 09:42
PROVIDERS: PCP Internal Medicine
DX: S52.502D Unspecified fracture of the lower end of left radius, subsequent encounter for closed fracture with routine healing (principal); M25.642 Stiffness of left hand, not elsewhere classified; M77.12 Lateral epicondylitis, left elbow
CPT/HCPCS: 97035; 97110; 97140; 97166; 97530; 97535

== ENCOUNTER 2025-04-14 11:01 | Outpatient (AMB) | payer OTHER, SELFPAY ==
--- NOTE | 2025-04-14 11:27 | A.OFFVIS_ITS ---
Vital Signs 04/14/25 11:28 Height 5 ft Weight 147 lb BMI 28.7 BP 124/60 Blood Pressure Location Lt brachial Respiration 16 Pulse 84 Pulse Source Pulse Oximeter Pulse Oximetry (%) 96 Oxygen Delivery Method Room Air Intake Visit Reasons: Low back pain Banking Assistant Required: Yes Banking Assistant Services: Banking Assistant Present Banking Assistant Name: ID # [id number] Allergies No Known Allergies (No Known Allergies*) Allergy (Verified 04/14/25 11:31) Medication List - Last Reconciled 04/14/25 by Jesenia Terrell LPN acetaminophen 650 mg (2 x 325 mg) PO Q6H PRN 14 days albuterol sulfate 90 mcg/actuation (Ventolin HFA) 2 inhalations inhalation Q4H PRN aspirin 81 mg PO DAILY bisacodyl (Dulcolax (bisacodyl)) 15 mg (3 x 5 mg) PO BEDTIME PRN blood sugar diagnostic As directed imhkcwjbzd-mbnpaeiehirja-emjm 50-300-40 mg (Fioricet) 1 cap PO Q6H PRN cholecalciferol (vitamin D3) 50 mcg PO DAILY 30 days clonazepam 1 mg PO BID PRN clotrimazole 1% 1 appl topical DAILY CPAP (CPAP Machine/Device) As directed CPAP (CPAP Machine/Device) As directed dapagliflozin propanediol (Farxiga) 10 mg PO DAILY dulaglutide 0.75 mg subcut QWEEK ferrous sulfate (iron) 325 mg PO DAILY Held on 12/07/24. Instructions: Doctor's Order buycaxluvqp-ccaimrhex-imcsavnp 200-62.5-25 mcg (Trelegy Ellipta) 1 inh inhalation DAILY 30 days folic acid 1 mg PO DAILY gabapentin 800 mg PO TID 30 days imipramine HCl 20 mg (2 x 10 mg) PO BEDTIME 30 days isosorbide mononitrate ER 30 mg PO DAILY lactulose 30 mL PO TID PRN lancets As directed levothyroxine (Levoxyl) 150 mcg PO DAILY linaclotide (Linzess) 290 mcg PO DAILY 90 days zklzmy-upoehanq-iltoaal (pork) 24,000-76,000 -120,000 unit (Creon) 2 caps PO BID metformin ER 500 mg PO BID metoclopramide HCl 10 mg PO QID metoprolol succinate ER 25 mg PO DAILY mirtazapine 7.5 mg PO BEDTIME montelukast 10 mg PO BEDTIME lgzxaueqdvpj-cfkv-mwmlm acid 18-400 mg-mcg (Certavite-Antioxidant) 1 tab PO DAILY nitroglycerin 0.3 mg sublingual DIRECTED nystatin 1 appl topical BID ondansetron 4 mg PO Q6H PRN pantoprazole 40 mg PO BID@0630,1630 rosuvastatin 40 mg PO DAILY simethicone (Gas Relief (simethicone)) 180 mg PO QID topiramate 25 mg PO DAILY tramadol 50 mg PO QID venlafaxine ER 75 mg PO DAILY HPI HPI Low back pain: Details: History of Present Illness The patient is a 74-year-old female presenting with low back pain. The pain is severe and affects her mobility, sometimes preventing her from walking. She has tried patches and medication, but they have not provided significant relief. She previously had injections over a year ago, which were temporarily effective. The recurrence of pain has led to a fall, causing a wrist fracture. Pain Description - Onset: Persistent low back pain - Quality: Severe, impacting mobility - Location: Primarily in the back, with no radiation to the legs - Exacerbating factors: Walking and daily activities - Relieving factors: Previous injections provided temporary relief Physical Exam - Appears afebrile. - Alert and oriented. - Mood and affect appropriate. - Follows and participates in conversation appropriately. - Respiratory effort is unlabored. Pain Management - Affect: Pain significantly impacts mobility and daily activities - Analgesia: Using patches and medication with limited relief - Activities of Daily Living: Pain affects walking and daily tasks [facility] Medical History Transaminitis Dysuria Dilated cbd, acquired Mural thickening of small intestine Abdominal pain Myocardial infarction Left hip pain Sacroiliac joint pain Elevated liver enzymes Right knee pain Left lumbar radiculitis Lumbago with sciatica Sepsis Right anterior knee pain Nausea and vomiting Candidiasis of mouth and esophagus Medication monitoring encounter Abnormal findings on diagnostic imaging of musculoskeletal system Asthma ANGIE (obstructive sleep apnea) Diabetes Esophageal dysmotilities Esophageal candidiasis Pneumonia Cystitis Recurrent UTI (urinary tract infection) Vitamin D deficiency Hypothyroidism Osteoporosis B12 deficiency Iron deficiency anemia IBS (irritable bowel syndrome) Surgical History H/O hand surgery H/O heart surgery Hx of gastric bypass History of esophagogastroduodenoscopy (EGD) Hx of colonoscopy History of arthroscopy of left shoulder Family History Father No problems noted. Mother Stomach cancer Diabetes mellitus CVD (cardiovascular disease) Heart attack Arthritis of knee Sister COVID-19 Paternal Aunt Cancer Maternal Aunt Cancer Paternal Uncle Cancer Social History Household Members: Spouse Housing: House Are you a primary healthcare management consultant to a significant other at home: No Do you presently have visiting nurse or other home services: No Alcohol intake: never 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 Patient Tobacco Use Status: Never used Tobacco Advance Directives Date on File: 11/12/24 service: No Current occupational status: disabled Physical Exam Vital Signs: Last Vital Signs Pulse 84 04/14/25 11:28 Resp 16 04/14/25 11:28 BP 124/60 04/14/25 11:28 Pulse Ox 96 04/14/25 11:28 Oxygen Delivery Method Room Air 04/14/25 11:28 BMI result Body Mass Index 28.7 Assessment & Plan Assessment & Plan (1) Lumbar spondylosis: Code(s): M47.816 - Spondylosis without myelopathy or radiculopathy, lumbar region Category: Medical Plan Plan Patient was informed and verbally consented to the use of an ambient scribe for clinic note documentation during this visit. 1. Lumbar Spondylosis - Diagnostic injections will be scheduled to evaluate effectiveness before considering nerve ablation for prolonged relief. Proceed with bilateral L3, L4, L5 diagnostic MBBs. - Insurance considerations necessitate repeat injections prior to ablation. 2. Wrist Fracture - The patient is receiving therapy following a fall that resulted in a wrist fracture. Discussion Notes I discussed with the patient the plan to perform diagnostic injections to evaluate their effectiveness before proceeding with nerve ablation for longer- term relief of her low back pain. We also reviewed the necessity of insurance approval for repeat injections prior to ablation. Patient Instructions - Schedule and attend the upcoming diagnostic injections. - Follow up with therapy for wrist fracture as advised. Coding Level of Care Code Est Pt Level 3 (59197) Diagnoses Lumbar spondylosis M47.816
[2025-04-14 11:28] VITALS: BP 124/60; PULSE 84; RESP 16; O2SAT 96; BMI 28.7
--- OUTSIDE RECORDS SUMMARY | 2025-04-14 12:31 | XMS_ITS | Patient Health Record ---
Author Organization [facility] Address [address] [place] [address] Care Team Providers Care Receptionist Nurse Name Role Phone Rogelio TOWNSEND, Laurent Primary Care Provider Frank Hernandez Unavailable [phone] Charles Clemons Unavailable Unavailable Reason For Referral [...] Manage Prod Active Effexor XR Active Calcitonin ([place]) Active Fluticasone Propionate Active Colace 100 MG [...] Status Risk Notes Problem Slow transit constipation (57486106) Slow transit constipation (K59.01) Active confirmed Plan Of Treatment Future Test Test Name Order Date UPPER GI ENDOSCOPY 12/01/2012 COLONOSCOPY 12/01/2012 Insurance Providers Payer Name Payer Address Payer Phone Subscriber Number Group Number Insured Name Patient Relationship to Insured Coverage Start Date Coverage End Date [facility] [address] [place] [phone] [id number] AMARILIS ENRIQUEZ Self - patient is the insured MEDICAID OF [employer] [address] [place] [address] [id number] AMARILIS ENRIQUEZ Self - patient is the insured Medical (General) History Medical History History ICD Code NIDDM hypertension Denies [place],CVA,renal disease Colonoscopy in 08/2007 at [facility] C with Dr. Howe-1 tubular adenoma removed, but poor prep; F/U colonoscopy in 05/2008 at [facility] was negative and with an excellent prep as per the report asthma/bronchitis Depression Hypothyroidism hyperlipidemia GERD 02/2013-neg colonoscopy except diverticul osis and internal hemorrhoids 02/2013-EGD with a small HH and anatomy c /w her gastric bypass 04/2013 nd 12/2014-neg CT of abd/pelvis Chronic constipation Surgical History Surgery Date(Month/Year) cataracts gastric [id number] [facility]-lost 100 # [facility] Shoulder appendectomy varicose vein stripping
--- OUTSIDE RECORDS SUMMARY | 2025-04-14 12:31 | XMS_ITS | Encounter Summary ---
Author Organization [employer] Address [address] [facility] 7t [place] [address] Care Team Providers Care Ball Ender Name Role Phone Mary Rod MD Primary Care Provide r Encounter Details Date Type Department Care Team ([facility] st Contact Info) Description 03/25/2023 Orders Only [facility] MEDICINE [address] [place], [place] [phone] ProviderLinsey MD Social History Tobacco Use Types [...] Description 05/15/2025 9:30 AM EST Office Visit [facility] OPTOMETRY [address] [place], [place] [phone] Tonya Brennan, OD [address] [place] [address] 06/02/2025 11:00 AM EST Office Visit [facility] MEDICINE [address] [place] [address] Mary Rod MD 230 [place], [place] [phone] documented as of this encounter Goals Goal [...] documented as of this encounter Care Teams Ball Ender Relationship Specialty Start Date End Date Mary Rod MD 230 [place] [address] PCP - General Family Medicine 02/07/22 Tequila MCCURDYA 11/16/24 01/15/25 documented as of this encounter
--- OUTSIDE RECORDS SUMMARY | 2025-04-14 12:31 | XMS_ITS | Encounter Summary ---
Author Organization [employer] Address [address] [place] [address] 7t [place] [address] Care Team Providers Care Director Of Strategic Sales Name Role Phone Mary Rod MD Primary Care Provide r Encounter Details Date Type Department Care Team (Late st Contact Info) Description 11/12/2022 [facility] Health Information Management [address] [place] [address] Mary Rod MD [address] [place] [address] Social History Tobacco Use Types Packs/Day Years [...] 05/15/2025 9:30 AM EST Office Visit [facility] OPTOMETRY [address] [place] [address] Tonya Brennan, OD [address] [place] [address] 06/02/2025 11:00 AM EST Office Visit [facility] MEDICINE 230 [place], [place] [phone] Mary Rod MD [address] [place], [place] [phone] documented as of this encounter Goals Goal [...] of this encounter Care Teams Director Of Strategic Sales Relationship Specialty Start Date End Date Mary Rod MD [address] [place] [address] PCP - General Family Medicine 02/07/22 [place] [facility] 11/16/24 01/15/25 documented as of this encounter
--- OUTSIDE RECORDS SUMMARY | 2025-04-14 12:31 | XMS_ITS | Encounter Summary ---
Author Organization [employer] Address [address] [facility] 7t [place] [address] Care Team Providers Care Commissioning Agent Name Role Phone Mary Rod MD Primary Care Provide r Reason for Visit * Reason Onset Date Comments Med Refill 10/12/2024 Encounter Details Date Type Department Care Team ([facility] st Contact Info) Description 10/12/2024 Telephone [facility] [address] [place], [place] [phone] Mary Rod MD 230 [place], [place] [phone] Med Refill Social History Tobacco Use Types [...] Nassar LPN - 10/12/2024 8:36 AM EDT COMMUNICATIONS CLERK checked on 10/12/24 Ambien last filled on 08/04/24 by Mariaelena Yan. * Telephone Encounter - Michael Fabian - 10/12/2024 8:30 AM EDT TC from pt requesting medication refill. Medications needing refill : zolpidem (Ambien) 10 MG tablet To be sent to: [facility] - [place], [place] - [address] [place] [address] documented in this encounter Plan of Treatment Upcoming Encounters Date Type Department Care Team (Late st Contact Info) Description 05/15/2025 9:30 AM EST Office Visit [facility] OPT[facility] [address] [place] [address] Tonya Brennan, OD [address] [place] [address] 06/02/2025 11:00 AM EST Office Visit [facility] [address] [place] [address] Mary Rod MD [address] [place] [address] documented as of this encounter Goals Goal [...] documented as of this encounter Care Teams Commissioning Agent Relationship Specialty Start Date End Date Mary Rod MD [address] [place] [address] PCP - General Family Medicine 02/07/22 [facility] 11/16/24 01/15/25 documented as of this encounter
--- OUTSIDE RECORDS SUMMARY | 2025-04-14 12:31 | XMS_ITS | Clinical Summary ---
Author Organization [employer] Address [address] [place] [address] [address] [place] [address] Care Team Providers Care Transistor Tester Name Role Phone Mary Rod MD Primary [...] by mouth Once per day. Active pancrelipase, Xhs-[id number]-Jrnf, (Creon) 46273-21937 units capsuleIndicatio ns:Pancreatic insufficiency TAKE 1 CAPSULE [...] 100 g 1 025 Active nystatin (Mycostatin) 217322 UNIT/GM powderIndication s:Intertrigo APPLY TO THE AFFECTED [...] current use of insulin, unspecified CKD stage ([facility]) TAKE 1 TABLET BY MOUTH EVERY MORNING 30 tablet 2 025 Active topiramate (Topamax) 25 MG tablet TAKE 1 TABLET BY MOUTH EVERY EVENING 30 tablet 2 Active white petrolatum-open cut examiner al oil (Lacri-Lube) ointment ophthalmic ointmentIndicati ons:Dry eyes, bilateral Apply 1 Application. to both eyes if needed for dry eyes. 3.5 g Active Blood Glucose Monitoring Suppl (FreeStyle Thomas Lite) w/Device kitIndications:D iabetic nephropathy associated with type 2 diabetes mellitus (HCC) Use to test blood sugar 1 times daily 1 kit Active Alcohol Swabs (Alcohol Prep) 70 % padsIndications: Diabetic nephropathy associated with type 2 diabetes mellitus (HCC) USE DIRECTED ONCE DAILY 100 each 3 025 Active Farxiga 10 MGIndications:Ty pe 2 diabetes mellitus with chronic kidney disease, without long-term current use of insulin, unspecified CKD stage (HCC) TAKE 1 TABLET BY MOUTH EVERY MORNING 30 tablet 2 2024 Discontinued topiramate (Topamax) 25 MG tablet TAKE 1 TABLET BY MOUTH EVERY EVENING 30 tablet 2 2024 Discontinued Alcohol Swabs 70 % padsIndications: Diabetic nephropathy associated with type 2 diabetes mellitus (HCC) Use to test blood sugar 1 times daily 100 each 2024 Discontinued Blood Glucose Monitoring Suppl ([email or web address] Thomas Lite) w/Device kitIndications:D iabetic nephropathy associated with type 2 diabetes mellitus (HCC) Use to test blood sugar 1 times daily 1 kit 2024 Discontinued(R eorder (will not trigger notification [...] encounter 03/10/2025 Overview (03/10/2025): Tramadol pain contract [id number]/10/2022 IBS (irritable bowel syndrome) 03/10/2025 Slow transit [...] with specialist Coronary artery disease invo lving stebbins coronary artery of stebbins heart 05/20/2024 Assessment & Plan (03/10/2025 1:07 PM EDT): I refer patient to cardiology, she was being seen at [facility] but would like to be referred at the [facility] due to transportation issues Ecchymoses, spontaneous [...] Duoneb NBZ but advise to see her bet taker if needed -has apt w territory sales manager in 12/2023 Hyperkalemia 09/30/2023 Assessment & Plan [...] Encounters Date Type Department Care Team Description 04/12/2025 Refill [facility] [address] [place] [address] Mary Rod MD 03/30/2025 Refill [facility] [address] [place] [address] Mary Rod MD Diabetic nephropathy associated with type 2 diabetes mellitus (HCC) 03/27/2025 Telephone [facility] [address] [place] [address] Mary Rod MD dec recall 03/23/2025 Telephone [facility] [address] [place] [address] Mary Rod MD Medication Question 03/23/2025 Refill [facility] [address] [place] [address] Mary Rod MD Diabetic nephropathy associated with type 2 diabetes mellitus (HCC) 03/20/2025 Orders Only GENERIC EXTERNAL DATA DEPARTMENT Provider, Generic External Data 03/16/2025 1:15 PM EDT Office Visit [facility] [address] [place] [address] Mika Tonya, OD Dry eyes, bilateral (Primary Dx) 03/16/2025 Travel 03/16/2025 Refill [facility] [address] [place] [address] Mary Rod MD Type 2 diabetes mellitus with chronic kidney disease, without long-term current use of insulin, unspecified CKD stage ([facility]) 03/10/2025 9:45 AM EDT Office Visit [facility] [address] [place] [phone] aMry Rod MD Coronary artery disease involving stebbins coronary artery of stebbins heart, unspecified whether angina present (Primary Dx); Type 2 diabetes mellitus with chronic kidney disease, without long-term current use of insulin, unspecified CKD stage ([facility]/HCC); Vertigo; Pre-syncope; Palpitations; Encounter for screening mammogram for malignant neoplasm of breast; Encounter for immunization 03/10/2025 Travel 03/08/2025 Telephone [facility] [address] [place] [address] Mary Rod MD chart prep 03/01/2025 Patient Outreach [facility] [address] [place] [phone] Mary Rod MD Pre-visit Planning (SDOH screening [...] seasonal, injecta ble, preservative free 04/05/2012 Novel [id number] 05/14/2016 Pfizer Covid-19 Vaccine 12+ 06/18/2023 Pneumococcal [...] Description 05/15/2025 9:30 AM EST Office Visit [facility] [address] [place] [address] Tonya Brennan, OD [address] [place] [address] 06/02/2025 11:00 AM EST Office Visit [facility] [address] [place] [address] Mary Rod MD [address] [place] [address] Health Maintenance Due Date Last Done Comments [...] AM EDT Narrative 04/07/2025 11:50 AM EDT [facility] [address] [place] [address] [address] [place] [address] XRay Report Signed Patient: Hayley Marc MR#: [id number] : 1950 Acct:[id number] Age/Sex: 74 / F ADM Date: 04/07/25 Loc: HO.HOSX Attending Dr: Gerardo NEWELL Ordering Physician: Gerardo Brizuela Date of Service: 04/07/25 Procedure(s): XR wrist LT min 3V Accession Number(s): [id number] cc: Gerardo Brizuela; Mary Rod MD Reason [...] Chris Adames MD 04/07/2025 11:47 AM EDT Dictated By: Chris Adames MD Signed By: <Electronically signed by Chris Adames MD in OV> 04/07/25 1147 DD/ 1108 TD/TT: 04/07/25 1110 Parts Administrator: Procedure Note Donotuseinterpreter, Image - 04/07/2025 [facility] [address] [place] [address] Drive [address] [place] [address] XRay Report Signed Patient: Josselin MarcR#: [id number] : 2Acct:[id number] Age/Sex: 74 / FADM Date: 04/07/25 Loc: TYREL Attending Dr: Gerardo NEWELL Ordering Physician: Gerardo Brizuela Date of Service: 04/07/25 Procedure(s): XR wrist LT min 3V Accession Number(s): [id number] cc: Gerardo Brizuela; Mary Rod MD Reason [...] 04/07/25 1147 DD/ 1108 TD/TT: 04/07/25 1110 Parts Administrator: [facility] External Provider IMG XR PROCEDURES Final Result * (ABNORMAL) TSH with Reflex to Free T4 (03/20/2025 10:51 AM EDT) Only the most recent of3 resultswithin the time period is included. TSH reflex Free T4 0.03(L) 0.32 - 4.0 uIU/mL [facility] 03/20/2025 10:5 1 AM EDT 03/20/2025 10:51 AM EDT Generic External Data Provider LAB BLOOD ORDERAB LES Final Result Performing Organization Address City/[facility]/ZIP Co de Phone Number [facility] [address] [place] [phone] * T4, Free (03/20/2025 10:51 AM EDT) Only the most recent of3 resultswithin the time period is included. Free T4 (Free Thyroxine) 1.37 0.71 - 1.85 ng/dL [facility] 03/20/2025 10:5 1 AM EDT 03/20/2025 10:51 AM EDT Generic External Data Provider LAB BLOOD ORDERAB LES Final Result Performing Organization Address City/[facility]/ZIP Co de Phone Number [facility] [address] [place] [phone] * (ABNORMAL) POCT Glucose (03/10/2025 9:56 AM EDT) Glucose Blood, POC 202(A) 60 - 200 mg/dL QC Media Lot # [id number] Lot# Expiration Date Blood Capillary blood specimen / Unknown 03/10/2025 9:56 AM EDT us Mary Rivera MD POINT OF CARE TEST EN TER/EDIT ORDERABLES Final Result * Thyroid Peroxidase Antibodies (02/16/2025 12:12 PM EDT) Thyroid Peroxidase Antibodies 1 <9 IU/mL [facility] Comment:THIS TEST WAS PERFOR MED AT:[facility] [place] [phone] HO MD 02/16/2025 12:1 2 PM EDT 02/16/2025 12:12 PM EDT us Generic External Data Provider LAB BLOOD ORDERAB LES Final Result [facility] [address] [place] [phone] * (ABNORMAL) CBC auto differential (02/07/2025 11:02 AM EDT) White Blood Count 4.3(L) 4.8 - 10.8 X10*3/uL [facility] Red Blood Count 4.32 4.20 - 5.50 X10*6/uL [facility] Hemoglobin 12.8 12.0 - 16.0 g/dl [facility] Hematocrit 41.2 37.0 - 47.0 % [facility] Mean Corpuscular Volume 95.4 80.0 - 98.0 fL [facility] Mean Corpuscular Hemoglobin 29.6 27.0 - 33.0 pg [facility] Mean Corpuscular HGB Conc 31.1 31.0 - 35.0 g/dl [facility] Red Cell Distribution Width 15.3 11.0 - 16.0 % [facility] Platelet Count 282 160 - 400 X10*3/uL [facility] Mean Platelet Volume 10.8 9.4 - 12.3 fL [facility] Neutrophils Percent Auto 49.2 45 - 73 % [facility] Imm Gran Pct Auto 0.2 0.0 - 0.4 % [facility] Lymphocytes Percent Auto 35.9 20 - 40 % [facility] Monocytes Percent Auto 11.2(H) 2 - 11 % [facility] Eosinophils Percent Auto 2.6 0 - 4 % [facility] Basophils Percent Auto 0.9 0 - 2 % [facility] NRBC Pct Auto 0.0 0.0 - 0.2 /100WBC [facility] Neutrophils Absolute Auto 2.1 2.0 - 8.3 x10*3/uL [facility] Imm Gran Abs Auto 0.01 0.00 - 0.03 X10*3/uL [facility] Lymphocytes Absolute Auto 1.5 1.2 - 4.9 X10*3/uL [facility] Monocytes Absolute Auto 0.5 0.1 - 1.2 X10*3/uL [facility] Eosinophils Absolute Auto 0.1 0.0 - 0.4 X10*3/uL [facility] Basophils Absolute Auto 0.0 0.0 - 0.2 X10*3/uL [facility] NRBC Abs Auto 0.000 0.0 - 0.012 X10*3/uL [facility] 02/07/2025 11:0 2 AM EDT 02/07/2025 11:02 AM EDT us Generic External Data Provider LAB BLOOD ORDERAB LES Final Result [facility] [address] [place] [phone] * (ABNORMAL) Prothrombin Time-INR (02/07/2025 11:02 AM EDT) Prothrombin Time 9.9(L) 10.9 - 12.4 SEC [facility] INTERNATIONAL NORM RATIO 0.9 0.9 - 1.1 [facility] Comment:INTERNATIONAL NORMAL IZED RATIO (INR) [...] ORDERAB LES Final Result Performing Organization Address City/[facility]/ZIP Co de Phone Number [facility] [address] [place] [phone] * B Type Natriuretic Peptide (BNP) (02/07/2025 11:02 AM EDT) B Type Natriuretic Peptide 77 <100 pg/mL [facility] 02/07/2025 11:0 2 AM EDT 02/07/2025 11:02 AM EDT [employer] External Data Provider LAB BLOOD ORDERAB LES Final Result Performing Organization Address [facility] Co de Phone Number [facility] [address] [place] [phone] * (ABNORMAL) Hemoglobin A1c (02/07/2025 11:02 AM EDT) Hemoglobin A1c 6.7(H) <6.0 % [facility] Comment:Hemoglobin A1C Refer ence Range Adults: 4.8 - 6.0 % Non diabetic: < 6.0 % Goal: < 7.0 %Additional Action Suggested: > 8.0 %Note: Hemoglobin A1c results are invalid for patients with abnormal amounts of HbF. Blood transfusions may impact the HbA1c concentration in the patient sample. Estimated Average Glucose 146 mg/dL [facility] Comment:eAG = Estimated ave rage glucose which is %A1C expressed asaverage glucose, using the formula of the T8V-BtkhxcmOellsmv Glucose study (ADAG), Diabetes Care, Vol.31,#8,2007 02/07/2025 11:0 2 AM EDT 02/07/2025 11:02 AM EDT us Generic External Data Provider LAB BLOOD ORDERAB LES Final Result [facility] [address] [place] [phone] * (ABNORMAL) Comprehensive Metabolic Panel (02/07/2025 11:02 AM EDT) Sodium 141 135 - 145 mmol/L [facility] Potassium 4.8 3.3 - 5.1 mmol/L [facility] Chloride 110(H) 96 - 108 mmol/L [facility] Carbon Dioxide 23 22 - 29 mmol/L [facility] Anion Gap 13 12 - 20 [facility] Urea Nitrogen (BUN) 12 9 - 16 mg/dL [facility] Creatinine, Serum 1.00 0.5 - 1.4 mg/dL [facility] Estimated Glomerular Filt Rate 54 [facility] Comment:Chronic Kidney Disea se: Estimated GFR < 60 mL/min/[id number] Kidney Disease: Estimated GFR < 15 mL/min/1.73m2 Glucose 75 60 - 115 mg/dL [facility] Calcium 9.2 8.4 - 10.2 mg/dL [facility] Bilirubin, Total 0.8 0.0 - 1.0 mg/dL [facility] Aspartate Amino Transferase 259(H) 5 - 31 U/L [facility] Alanine Aminotransferase 235(H) 0 - 31 U/L [facility] Total Protein 7.1 6.5 - 8.0 g/dL [facility] Albumin Level 4.2 3.5 - 5.0 g/dL [facility] Alkaline Phosphatase 119(H) 39 - 117 U/L [facility] 02/07/2025 11:0 2 AM EDT 02/07/2025 11:02 AM EDT us Generic External Data Provider LAB BLOOD ORDERAB LES Final Result Performing Organization Address [facility]/ZIP Co de Phone Number [facility] [address] [place] [phone] * (ABNORMAL) Urinalysis, Complete, with Reflex to Culture (02/07/2025 10:53 AM EDT) Color Urine Dark Yellow [facility] Appearance Urine Cloudy [facility] PH 5.5 5.0 - 9.0 [facility] Glucose Urine UA >=1000(A) Negative mg/dL [facility] Urine Blood Small (1+)(A) Negative [facility] Specific [place] - Urine >=1.030(H) 1.005 - 1.025 [facility] Urine Protein 100 (2+)(A) Neg-Trace mg/dL [facility] Urine Ketones Negative Negative mg/dL [facility] Nitrite Urine Negative Negative [facility] Leukocyte Esterase Urine Negative Negative [facility] RBC Urine 6-10(A) 0 - 2 /HPF [facility] Urine WBC 0-5 0 - 5 /HPF [facility] Urine Squamous Epithelial Cell 0-2 0 - 2 /HPF [facility] Other Crystals Urine Present [facility] Comment:Calcium carbonate cr ystals noted Urine Bacteria None Seen None Seen [facility] Hyaline Casts, Urine 3-5 0 - 2 /LPF [facility] 02/07/2025 10:5 3 AM EDT 02/07/2025 11:23 AM EDT Narrative [facility] - 02/07/2025 11:58 AM EDT Urine, Clean Catch us Generic External Data Provider LAB URINE ORDERAB LES Final Result Performing Organization Address [facility]/ZIP Co de Phone Number [facility] [address] [place] [phone] * (ABNORMAL) Urinalysis w/reflex microscopic (02/07/2025 10:53 AM EDT) Color Urine Dark Yellow [facility] Appearance Urine Cloudy [facility] PH 5.5 5.0 - 9.0 [facility] Glucose Urine UA >=1000(A) Negative mg/dL [facility] Urine Blood Small (1+)(A) Negative [facility] Specific [place] - Urine >=1.030(H) 1.005 - 1.025 [facility] Urine Protein 100 (2+)(A) Neg-Trace mg/dL [facility] Urine Ketones Negative Negative mg/dL [facility] Nitrite Urine Negative Negative [facility] Leukocyte Esterase Urine Negative Negative [facility] 02/07/2025 10:5 3 AM EDT 02/07/2025 11:23 AM EDT Narrative [facility] - 02/07/2025 11:40 AM EDT Urine, Clean Catch us Generic External Data Provider LAB URINE ORDERAB LES Final Result Performing Organization Address City/State/[facility] Co de Phone Number [facility] [address] [place] [phone] * Lipid Panel, Standard (12/09/2024 8:53 AM EDT) Triglycerides 72 <150 mg/dL [facility] Comment:Desirable Triglyceri de: less than 150 mg/dLBorderline High Triglyceride 150-199 mg/dLHigh Triglyceride: 200-499 mg/dLVery High Triglyceride: greater than or equal to 5OO mg/dL Cholesterol 113 <200 mg/dL [facility] Comment:Desirable Cholestero l: less than 200 mg/dLBorderline High Cholesterol: 200-239 mg/dLHigh Cholesterol: greater than 239 mg/dL LDL Cholesterol Calculated 51 <100 mg/dL [facility] Comment:Desirable LDL: less than 100 mg/dLNear Optimal/Above Optimal LDL: 110- 129 mg/dLBorderline High LDL: 130-159 mg/dLHigh LDL: 160-189 mg/dLVery High LDL: greater than or equal to 190 mg/dL HDL Cholesterol 48 >40 mg/dL [facility] Comment:Desirable HDL: great er than 40 mg/dL Note: This HDL assay may give artificially low results in patients with liver disease. Blood Venous blood specimen / Unknown 12/09/2024 8:53 AM EDT 12/09/2024 11:08 AM EDT us Mary Rivera MD LAB BLOOD ORDERABLES Final Result Performing Organization Address [facility] Co de Phone Number [facility] [address] [place] [phone] * Hepatitis Panel, General (09/30/2024 8:24 AM EDT) Hepatitis A IgM Nonreactive Nonreactive [facility] Comment:IgM antibodies to LAZCANO V not detected; does not exclude earlyacute or recovered HAV infection. ~Hepatitis B Surface Antibody NONREACTIVE Nonreactive [facility] Comment:Nonreactive: < 8.00 mIU/mL Hepatitis B Core Antibody Nonreactive Nonreactive [facility] Hepatitis C Antibody Nonreactive Nonreactive [facility] Comment:Antibodies to HCV no t detected; does not exclude early acuteHCV infection. Hepatitis B Surface Ag Negative Negative [facility] 09/30/2024 8:24 AM EDT 09/30/2024 8:24 AM EDT us Generic External Data Provider LAB BLOOD ORDERAB LES Final Result Performing Organization Address [facility]/ZIP Co de Phone Number [facility] [address] [place] [phone] * Hm Colonoscopy (02/16/2023) us Historical Provider HEALTH MAINTENANCE Final Result * BI Mammogram Screening Tomosynthesis Bilateral (01/08/2023 12:20 PM EDT) Anatomical Region Laterality Modality Breast Bilateral Mammography 01/08/2023 12:2 0 PM EDT Narrative 01/30/2023 10:10 AM EDT [place] [facility] [address] [place] [address] Mammography Report Signed Patient: Hayley Marc MR#: [id number] : 1950 Acct:[id number] Age/Sex: 72 / F ADM Date: 01/08/23 Loc: HO.MAMMO Attending Dr: Mary Rivera MD Ordering Physician: Mary Rod MD Results: Date of Service: 01/08/23 Follow Up: Procedure(s): MM tomosynthesis screening BI Accession Number(s): [id number] cc: Mary Rod MD EXAMINATION: MM SCREENING [...] in OV> 01/30/23 1007 DD/ 1220 TD/TT: Parts Administrator: Procedure Note Donotuseinterpreter, Image - 01/30/2023 [place] [facility] [address] [place] [address] Mammography Report Signed Patient: Susan Marc#: [id number] : 2Acct:[id number] Age/Sex: 72 / FADM Date: 01/08/23 Loc: HO.MAMMO Attending Dr: Mary Rivera MD Ordering Physician: Mary Rod MDResults: Date of Service: 01/08/23Follow Up: Procedure(s): MM tomosynthesis screening BI Accession Number(s): [id number] cc: Mary Rod MD EXAMINATION: MM SCREENING [...] in OV> 01/30/23 1007 DD/ 1220 TD/TT: Parts Administrator: Mary Rivera MD IMG BI PROCEDURES Kar peter Result - Final from Last 3 Months or Most Recently Relevant to Health Maintenance Insurance [employer] (HMO D-SNP) Care Teams Transistor Tester Relationship Specialty Start Date End Date Mary Rod MD [address] [place] [phone] PCP - General Family Medicine 02/07/22
--- OUTSIDE RECORDS SUMMARY | 2025-04-14 12:31 | XMS_ITS | Encounter Summary ---
Author Organization [employer] Address [address] [facility] [address] [place] [address] Care Team Providers Care Truck Body Builder Apprentice Name Role Phone Mary Rod MD Primary Care Provide r Encounter Details Date Type Department Care Team (Late st Contact Info) Description 03/24/2023 Abstract [facility] [address] [place], [place] [phone] Tonia Cardoza Social History Tobacco Use Types [...] Description 05/15/2025 9:30 AM EST Office Visit [facility] [address] [place], [place] [phone] Mika Tonya, OD [address] [place] [address] 06/02/2025 11:00 AM EST Office Visit [facility] [address] [place] [address] Mary Rod MD [address] [place] [address] documented as of this encounter Goals Goal [...] documented as of this encounter Care Teams Truck Body Builder Apprentice Relationship Specialty Start Date End Date Mary Rod MD [address] [place], [place] [phone] PCP - General Family Medicine 02/07/22 [facility] 11/16/24 01/15/25 documented as of this encounter
--- OUTSIDE RECORDS SUMMARY | 2025-04-14 12:31 | XMS_ITS | Data Portability ---
Author Organization iconDial [facility], [facility] Address [address] [place] [address] Care Team Providers Care Front Attendant Name Role Phone HIM CCA OTHER Unavailable [...] Assessment and Plan as documented by the Tube Winder Hand. We discussed the diagnostic uncertainty of home [...] )to call 911- verbalized understanding of instruction Not available 06/06/2024 22:29:59 Plan of Treatment Reminders Order Date Submit Date Provider Last Modified By Organization Details Last Modified Time Details Appointments None recorded. Lab rapid flu (A+B) 2023 [email or web address] 0 Main - [facility], [address] [place] [address], [id number] 4 12:27:12 rapid SARS CoV 2 Ag, QL IA, respiratory specimen 2023 024 [email or web address] 0 Main - [facility], [address] [place] [address], [id number] 4 12:27:12 rapid strep group A, throat 2023 024 [email or web address] 0 Main - [facility], [address] [place] [address], [id number] 4 12:27:12 BMP, serum or plasma 2023 [email or web address] 0 Main - [facility], [address] [place] [address], [id number] 4 12:27:12 Referral None recorded. Procedures None recorded. Surgeries None recorded. Imaging None recorded. Medication Orders albuterol sulfate 2.5 mg/3 mL (0.083 %) solution for nebulizatio n 2023 [email or web address] 0 Not available 4 12:27:12 azithromyci n 250 mg tablet 2023 [email or web address] 0 Not available 12:27:12 azithromyci n 250 mg tablet 2023 [facility], [address] [place] [address], [id number], 4 10:06:34 potassium chloride ER 20 mEq tablet,exte nded release 2023 [email or web address] 0 Not available 4 12:27:12 prednisone 20 mg tablet 2023 [email or web address] 0 Not available 4 12:27:12 prednisone 20 mg tablet 2023 [facility], [address] [place] [address], [id number], 4 10:06:35 Mucinex DM 30 mg-600 mg tablet,exte nded release 12 hr 2023 [facility], [address] [place] [address], [id number], 5 11:34:59 Patient TargetsNo targets recorded. Patient InstructionsNo instructions recorded. Reason for Referral None Reported. Results Created Date Observation Date Name Description Value Unit Range Abnormal Flag Note LastModifiedBy Organization Detail LastModifiedTime 06/06/20 24 06/06/2024 rapid strep group A, throa t Strep negati ve Not Available Main - [facility] ed [address] [place] [address], [id number] 06/06/2024 11:26:51 06/06/20 24 06/06/2024 rapid SARS CoV 2 Ag, QL IA, respi rator y speci men rapid SARS CoV 2 Ag, QL IA, respiratory specimen negati ve Not Available [facility] - [facility] [address] [place] [address], [id number] 06/06/2024 11:26:50 06/06/20 24 06/06/2024 rapid flu (A+B) Flu negati ve Not Available [facility] - [facility] [address] [place] [address], [id number] 06/06/2024 11:26:49 Result Notes None recorded. Medical [...] Address Organization Details Last Updated DateTime 4 28933.0 4 g 16 /min 98 [degF] 152.4 cm 100 % 100 % 68 /min 100/69 mm[Hg] Not Available [facility] 11:40:00 Date Recorded Body height Provider Name an d Address Organization Details Last Updated DateTime 06/06/2024 152.4 cm Suzy Caldera [address] [place] [address],[address], [place], [address], [place] - [email or web address] 06/06/2024 12:10:31 Date Recorded Heart rate Oxygen saturation Oxygen saturation in Arterial blood by Pulse oximetry Respiratory rate Body temperature Systolic And Diastolic Provider Name and Address Organization Details Last Updated DateTime 4 78 /min 100 % 100 % 18 /min 98 [degF] 106/53 mm[Hg] Not Available [employer] 11:21:28 Social History None recorded. Functional Status None recorded. Mental Status None recorded. Family History Nothing Reported. Medical History No medical history recorded. Gynecological HistoryNo gynecological history recorded. Obstetrics History GPAL:G 0 P 0 0 0 0 Past Encounters Encounter ID Performer Location Encounter Start Date Encounter Closed Date Diagnosis/Indication Diagnosis SNOMED-CT Code Diagnosis ICD10 Code Diagnosis IMO Codes Diagnosis Note [id number] [facility] [address] [place] [id number] 12/14/2023 11:35:06 12/14/2023 18:48:14 Headache 08417282 R51.9 [id number] Leilani Pendleton [facility] [address] [place] [id number] 06/06/2024 11:21:26 06/06/2024 23:50:20 Upper respiratory infection 42277429 J06.9 w/ exacerbati on of asthma- improved after neb lungs cta but increased cough Will cover with azithromyc in and steroids/v ia [place] language line interprete r made patient aware [...] Vivar Member ID Guarantor Name 06/06/2024 1 [facility] - DOS ON OR AFTER 2022 - DUAL ELIGIBLE - [facility] OPTIONS AND ONE CARE (MEDICARE REPLACEMENT/ADV ANTAGE - HMO) Hayley Shannon [id number] Hayley Shannon Notes Date Note Type Note [...] injury. [facility]. [facility]. Confirmed allergies and that no pets in home. Reviewed home care advise, ER precautions and reasons to call back. ................... ................... ................... ................... ................... ................... ................... ........ CRC Nurse Triage Notes (Rachael Lo): Comments: HPI reviewed. No further information needed to process visit. Tube Winder Hand POC Test Results from Gerardo Lazar iSTAT Chem8+ (13:24:48) Na: 142 mEq/L K: 5.0 mEq/L Cl: 110 mEq/L iCa: 1.21 mmol/L TCO2: 22 mmol/L Glu: 86 mg/dL BUN: 11 mg/dL Crea: 0.9 mg/dL Hct: 39 % Hb: 13.3 g/dL A ................... ................... ................... ................... ................... ................... ................... ........ Tube Winder Hand Note From Gerardo Lazar: Smart[employer] visit for female patient. Pt presents conscious and alert. Pt [place]an speaking only so educational sign language interpreter services were used. Pt reports 4 [...] little bit low. Pt afebrile. Consulted with [facility] Dr. Rodriguez who advised blood drawn BMP and IV fluids. IV placed and BMP drawn and uploaded to eriQoo jen. Dr. Rodriguez ordered 500 cc of normal saline in addition to 1 gram of IV magnesium, both given on scene. Reviewed red flags for ED and PT education provided. ................... ................... ................... ................... ................... ................... ................... ........ Disposition: Leann Rodriguez MD [address] [facility],[address], [place], [address], [facility] - [employer] [facility] 12/14/2023 15:10:31 06/06/2024 text/html ROS as noted in the HPI HPI: Call returned to Hayley Wang to triage below. Reports having asthma sx x 4 days. Pt having cough, fever and wheezing. Pt having to use inhaler Q4H. Pt also endorses ST. Pt had negative home kit for COVID-19 yesterday. Pt having chest tightness with cough. Pt advised of disposition, [facility]. Confirmed demographics and allergies. ................... ................... ................... ................... ................... ................... ................... ........ [facility] Nurse Triage Notes (Nayely Arango - RN): Chief Complaints: Asthma, Cough PMH: COPD/Asthma, Hypertension, Hypothyroidism, Asthma, Diabetes Mellitus Type 2, Coronary Artery Disease Comments: HPI reviewed Tube Winder Hand Organization Information for [employer] Legal Name: [employer]. Address: [address] [place] [id number], College Recruiter: Mj Krause MD CLIA No.: [id number] Tube Winder Hand POC Test Results from [employer] Rapid [...] ................... ................... ................... ................... ................... ................... ........ Tube Winder Hand Note From [employer]: [facility] makes pt contact a 73 yo FF CC of cough/cold like [facility] obtains vital signs, [facility] uses educational sign language interpreter services due to language barrier. PT explains she has been sick for 9 days including a fever, cough, congestion, productive phlegm consisting of dark green, pt has a hx of asthma, pt has a metal plate in chest from a resuscitation 4 months ago. PT is complaining of chest pain from the cough and not being able to sleep. [facility] tests for flu and covid, negative, tests for strep negative. PT has no allergies, a medication list is provided to [facility] contacts [facility], [facility] requests an istat which is obtained via butterfly in the left AC and bandaged appropriately, and uploaded. [facility] advises pt has bronchitis. [facility] orders 500mg of azithromycin, 40mg of prednisone, 40meq of potassium which is given po. [facility] also orders a nebulized albuterol treatment, PT reports minor relief from albuterol although pts lungs on reassessment are free of any wheezes. PT is also prescribed antibiotics which she is instructed to began taking tomorrow. [facility] explains red flags such as severe chest pain, severe sob, uncontrolled fever she should call us back or go to the hospital. [facility] also explains pt should stay hydrated and use the prescribed cough syrup to try and loosen up the pehlgm and also reduce her coughing. PT understands. [facility] clears ................... ................... ................... ................... ................... ................... ................... ........ [facility] Consulted: Leilani Pendleton ................... ................... ................... ................... ................... ................... ................... ........ Disposition: Fulfilled Leilani Pendleton MD [address] [facility],[address], [place], [address], [employer] 06/06/2024 22:30:16 OBGyn Episode No OBEpisode recorded.
--- OUTSIDE RECORDS SUMMARY | 2025-04-14 12:32 | XMS_ITS | Encounter Summary ---
Author Organization [employer] Address [address] [facility] [address] [place] [address] Care Team Providers Care Equipment Washer Name Role Phone Mary Rod MD Primary Care Provide r Reason for Visit * Reason Comments Med Refill Encounter Details Date Type Department Care Team (Late st Contact Info) Description 04/13/2023 Refill [facility] MEDICINE [address], [place] [phone] Yara Tompkins MD [address] [place], [place] [phone] Social History Tobacco Use Types Packs/Day Years [...] Description 05/15/2025 9:30 AM EST Office Visit [facility] OPTOMETRY [address] [place] [address] Tonya Brennan, OD [address] [place] [address] 06/02/2025 11:00 AM EST Office Visit [facility] MED[facility]INE [address] [place] [address] Mary Rod MD [address] [place] [address] documented as of this encounter Goals Goal [...] documented as of this encounter Care Teams Equipment Washer Relationship Specialty Start Date End Date Mary Rod MD [address] [place] [address] PCP - General Family Medicine 02/07/22 [facility] 11/16/24 01/15/25 documented as of this encounter
== END 2025-04-14 12:14 | disposition home or self-care (01) ==
PROVIDERS: PCP Internal Medicine; Visit Provider Internal Medicine
DX: M47.816 Spondylosis without myelopathy or radiculopathy, lumbar region (principal)
CPT/HCPCS: 99213

== ENCOUNTER → 2025-04-14 11:01 | Outpatient (BNVA) | payer OTHER, SELFPAY | PROVIDERS: PCP Internal Medicine; Visit Provider Internal Medicine | DX: M47.816 Spondylosis without myelopathy or radiculopathy, lumbar region (principal) | CPT/HCPCS: 99212 ==

== ENCOUNTER 2025-04-19 08:22 | Outpatient (REF) | payer OTHER, SELFPAY ==
--- NOTE | ~2025-04-19 | US_ITS ---
EXAMINATION: US THYROID HISTORY: E03.9 - Hypothyroidism, unspecified TECHNIQUE: Real-time grayscale ultrasound imaging was performed and images were reviewed. COMPARISON: Comparison is made with the prior examination dated 07/07/2023. FINDINGS: SIZE: The right thyroid lobe measures 3.0 x 1.0 x 0.8 cm. The left thyroid lobe measures 2.9 x 0.9 x 0.9 cm. The isthmus measures 2 mm. FLOW: Flow to the gland is normal. ECHOGENICITY: The echotexture of the gland is homogeneous. NODULES: No nodules are identified. US/US thyroid IMPRESSION: Unremarkable thyroid ultrasound. ACR TI-RADS Guidelines TR1 (0 points): Benign. No follow-up or biopsy required TR2 (2 points): Not Suspicious. No biopsy or follow up indicated TR3 (3 points): Mildly Suspicious. FNA if >= 2.5 cm, Follow if >= 1.5 cm TR4 (4-6 points): Moderately Suspicious. FNA if >= 1.5 cm, Follow if >= 1.0 cm TR5 (>=7 points): Highly Suspicious. FNA if >= 1.0 cm, Follow if >= 0.5 cm Electronically signed by: Frank Andersen MD 04/19/2025 09:07 AM [facility]
--- OUTSIDE RECORDS SUMMARY | 2025-04-19 08:33 | XMS_ITS | Clinical Summary ---
Author Organization [employer] Address [address] [place] [address] 7[address] [place] [address] Care Team Providers Care Linux Kernel Developer Name Role Phone Mary Rod MD Primary [...] by mouth Once per day. Active pancrelipase, Lql-Mrge-Jhux, (Creon) 68909-42240 units capsuleIndicatio ns:Pancreatic insufficiency TAKE 1 CAPSULE [...] 100 g 1 025 Active nystatin (Mycostatin) 021080 UNIT/GM powderIndication s:Intertrigo APPLY TO THE AFFECTED [...] EVERY MORNING BEFORE BREAKFAST 30 tablet 2 025 Active FREESTYLE LITE test stripIndications :Diabetic nephropathy [...] mouth in the morning. 30 tablet 11 025 Active Farxiga 10 MGIndications:Ty pe 2 diabetes mellitus with chronic kidney disease, without long-term current use of insulin, unspecified CKD stage ([facility]) TAKE 1 TABLET BY MOUTH EVERY MORNING 30 tablet 2 025 Active topiramate (Topamax) 25 MG tablet TAKE 1 TABLET BY MOUTH EVERY EVENING 30 tablet 2 Active white petrolatum-hard rock miner blasting al oil (Lacri-Lube) ointment ophthalmic ointmentIndicati ons:Dry eyes, bilateral Apply 1 Application. to both eyes if needed for dry eyes. 3.5 g 025 Active Blood Glucose Monitoring Suppl (FreeStyle [place] Lite) w/Device kitIndications:D iabetic nephropathy associated with type 2 diabetes mellitus (HCC) Use to test blood sugar 1 times daily 1 kit 025 Active Alcohol Swabs (Alcohol Prep) 70 % padsIndications: Diabetic nephropathy associated with type 2 diabetes mellitus (HCC) USE DIRECTED ONCE DAILY 100 each 3 025 Active Alcohol Swabs 70 % padsIndications: Diabetic nephropathy associated with type 2 diabetes mellitus (HCC) Use to test blood sugar 1 times daily 100 each 025 2024 Discontinued Blood Glucose Monitoring Suppl (maufait Lite) w/Device kitIndications:D iabetic nephropathy associated with [...] encounter 03/10/2025 Overview (03/10/2025): Tramadol pain contract [id number]/10/2022 IBS (irritable bowel syndrome) 03/10/2025 Slow transit [...] with specialist Coronary artery disease invo lving [place] coronary artery of [place] heart 05/20/2024 Assessment & Plan (03/10/2025 1:07 PM EDT): I refer patient to cardiology, she was being seen at [facility] but would like to be referred at the [facility] due to transportation issues Ecchymoses, spontaneous [...] Duoneb NBZ but advise to see her suction drum drier operator if needed -has apt w event marketing intern in 12/2023 Hyperkalemia 09/30/2023 Assessment & Plan [...] Encounters Date Type Department Care Team Description 04/18/[address] [facility] [address] [place] [address] Mary Rod MD 04/12/[address] [facility] [address] [place] [address] Mary Rod MD 03/30/[address] [facility] [address] [place] [address] Mary Rod MD Diabetic nephropathy associated with type 2 diabetes mellitus (HCC) 03/27/[address] [facility] [address] [place] [address] Mary Rod MD dec recall 03/23/[address] [facility] [address] [place] [address] Mary Rod MD Medication Question 03/23/[address] [facility] [address] [place] [address] Mary Rod MD Diabetic nephropathy associated with type 2 diabetes mellitus (HCC) 03/20/2025 Orders Only GENERIC EXTERNAL DATA DEPARTMENT Provider, Generic External Data 03/16/2025 1:15 PM EDT Office Visit [facility] [address] [place] [address] Tonya Brennan, OD Dry eyes, bilateral (Primary Dx) 03/16/2025 Travel 03/16/[address] [facility] [address] [place] [address] Mary Rod MD Type 2 diabetes mellitus with chronic kidney disease, without long-term current use of insulin, unspecified CKD stage ([facility]) 03/10/2025 9:45 AM EDT Office Visit [facility] [address] [place] [address] Mary Rod MD Coronary artery disease involving [place] coronary artery of [place] heart, unspecified whether angina present (Primary Dx); Type 2 diabetes mellitus with chronic kidney disease, without long-term current use of insulin, unspecified CKD stage ([facility]/HCC); Vertigo; Pre-syncope; Palpitations; Encounter for screening mammogram for malignant neoplasm of breast; Encounter for immunization 03/10/2025 Travel 03/08/[address] [facility] [address] [place] [phone] Mary Rod MD chart prep 03/01/[address] [facility] [address] [place] [address] Mary Rod MD Pre-visit Planning (SDOH screening [...] seasonal, injecta ble, preservative free 04/05/2012 Novel [id number] 05/14/2016 Pfizer Covid-19 Vaccine 12+ 06/18/2023 Pneumococcal [...] Description 05/15/2025 9:30 AM EST Office Visit [facility] [address] [place], [place] [phone] Tonya Brennan, OD [address] [place] [address] 06/02/2025 11:00 AM EST Office Visit [facility] [address] [place] [address] Mary Rod MD [address] [place] [address] Health Maintenance Due Date Last Done Comments [...] Comments XR WRIST 3+ VIEWS LEFT Routine 5 11:08 AM EDT T4, FREE Routine 03/20/2025 [...] AM EDT Narrative 04/07/2025 11:50 AM EDT [facility] [address] [place] [address] Drive [address] [place] [address] XRay Report Signed Patient: Hayley Marc MR#: [id number] : 1950 Acct:[id number] Age/Sex: 74 / F ADM Date: 04/07/25 Loc: HO.HOSX Attending Dr: Gerardo NEWELL Ordering Physician: Gerardo Brizuela Date of Service: 04/07/25 Procedure(s): XR wrist LT min 3V Accession Number(s): [id number] cc: Gerardo Brizuela; Mary Rod MD Reason [...] 04/07/25 1147 DD/ 1108 TD/TT: 04/07/25 1110 Ore Grader: Procedure Note Bridgerter, Image - 04/07/2025 [facility] [address] [place] [address] [address] [place] [address] XRay Report Signed Patient: Josselin MarcR#: [id number] : 1950cct:[id number] Age/Sex: 74 / FADM Date: 04/07/25 Loc: SENTHILX Attending Dr: Gerardo NEWELL Ordering Physician: Gerardo Brizuela Date of Service: 04/07/25 Procedure(s): XR wrist LT min 3V Accession Number(s): [id number] cc: Gerardo Brizuela; Mary Rod MD Reason [...] 04/07/25 1147 DD/ 1108 TD/TT: 04/07/25 1110 Ore Grader: [employer] External Provider IMG XR PROCEDURES Final Result * (ABNORMAL) TSH with Reflex to Free T4 (03/20/2025 10:51 AM EDT) Only the most recent of3 resultswithin the time period is included. TSH reflex Free T4 0.03(L) 0.32 - 4.0 uIU/mL [facility] 03/20/2025 10:5 1 AM EDT 03/20/2025 10:51 AM EDT Generic External Data Provider LAB BLOOD ORDERAB LES Final Result Performing Organization Address [facility] Co de Phone Number [facility] [address] [place] [phone] * T4, Free (03/20/2025 10:51 AM EDT) Only the most recent of3 resultswithin the time period is included. Free T4 (Free Thyroxine) 1.37 0.71 - 1.85 ng/dL [facility] 03/20/2025 10:5 1 AM EDT 03/20/2025 10:51 AM EDT Generic External Data Provider LAB BLOOD ORDERAB LES Final Result Performing Organization Address City/[facility]/ZIP Co de Phone Number [facility] [address] [place] [phone] * (ABNORMAL) POCT Glucose (03/10/2025 9:56 AM EDT) Glucose Blood, POC 202(A) 60 - 200 mg/dL QC Media Lot # [id number] Lot# Expiration Date Blood Capillary blood specimen / Unknown 03/10/2025 9:56 AM EDT Mary Rivera MD POINT OF CARE TEST EN TER/EDIT ORDERABLES Final Result * Thyroid Peroxidase Antibodies (02/16/2025 12:12 PM EDT) Thyroid Peroxidase Antibodies 1 <9 IU/mL [facility] Comment:THIS TEST WAS PERFOR MED AT:[facility] [place] [phone] HO MD 02/16/2025 12:1 2 PM EDT 02/16/2025 12:12 PM EDT us Generic External Data Provider LAB BLOOD ORDERAB LES Final Result [facility] [address] [place] [phone] * (ABNORMAL) CBC auto differential (02/07/2025 11:02 AM EDT) Pathologist [facility] White Blood Count 4.3(L) 4.8 - 10.8 X10*3/uL [facility] Red Blood Count 4.32 4.20 - 5.50 X10*6/uL [facility] Hemoglobin 12.8 12.0 - 16.0 g/dl [facility] Hematocrit 41.2 37.0 - 47.0 % [facility] Mean Corpuscular Volume 95.4 80.0 - 98.0 fL [facility] Mean Corpuscular Hemoglobin 29.6 27.0 - 33.0 pg [facility] Mean Corpuscular HGB Conc 31.1 31.0 - 35.0 g/dl [facility] Red Cell Distribution Width 15.3 11.0 - 16.0 % [facility] Platelet Count 282 160 - 400 X10*3/uL [facility] Mean Platelet Volume 10.8 9.4 - 12.3 fL [facility] Neutrophils Percent Auto 49.2 45 - 73 % [facility] Imm Gran Pct Auto 0.2 0.0 - 0.4 % [facility] Lymphocytes Percent Auto 35.9 20 - 40 % [facility] Monocytes Percent Auto 11.2(H) 2 - 11 % [facility] Eosinophils Percent Auto 2.6 0 - 4 % [facility] Basophils Percent Auto 0.9 0 - 2 % [facility] NRBC Pct Auto 0.0 0.0 - 0.2 /100WBC [facility] Neutrophils Absolute Auto 2.1 2.0 - 8.3 x10*3/uL [facility] Imm Gran Abs Auto 0.01 0.00 - 0.03 X10*3/uL [facility] Lymphocytes Absolute Auto 1.5 1.2 - 4.9 X10*3/uL [facility] Monocytes Absolute Auto 0.5 0.1 - 1.2 X10*3/uL [facility] Eosinophils Absolute Auto 0.1 0.0 - 0.4 X10*3/uL [facility] Basophils Absolute Auto 0.0 0.0 - 0.2 X10*3/uL [facility] NRBC Abs Auto 0.000 0.0 - 0.012 X10*3/uL [facility] 02/07/2025 11:0 2 AM EDT 02/07/2025 11:02 AM EDT us Generic External Data Provider LAB BLOOD ORDERAB LES Final Result [facility] [address] [place] [phone] * (ABNORMAL) Prothrombin Time-INR (02/07/2025 11:02 AM EDT) Prothrombin Time 9.9(L) 10.9 - 12.4 SEC [facility] INTERNATIONAL NORM RATIO 0.9 0.9 - 1.1 [facility] Comment:INTERNATIONAL NORMAL IZED RATIO (INR) REFERENCE [...] ORDERAB LES Final Result Performing Organization Address City/[facility]/ZIP Co de Phone Number [facility] [address] [place] [phone] * B Type Natriuretic Peptide (BNP) (02/07/2025 11:02 AM EDT) B Type Natriuretic Peptide 77 <100 pg/mL [facility] 02/07/2025 11:0 2 AM EDT 02/07/2025 11:02 AM EDT [employer] External Data Provider LAB BLOOD ORDERAB LES Final Result Performing Organization Address City/[facility] Co de Phone Number [facility] [address] [place] [phone] * (ABNORMAL) Hemoglobin A1c (02/07/2025 11:02 AM EDT) Hemoglobin A1c 6.7(H) <6.0 % [facility] Comment:Hemoglobin A1C Refer ence Range Adults: 4.8 - 6.0 % Non diabetic: < 6.0 % Goal: < 7.0 %Additional Action Suggested: > 8.0 %Note: Hemoglobin A1c results are invalid for patients with abnormal amounts of HbF. Blood transfusions may impact the HbA1c concentration in the patient sample. Estimated Average Glucose 146 mg/dL [facility] Comment:eAG = Estimated ave rage glucose which is %A1C expressed asaverage glucose, using the formula of the B5F-YmglnysNvlxfra Glucose study (ADAG), Diabetes Care, Vol.31,#8,Jan. 2007 02/07/2025 11:0 2 AM EDT 02/07/2025 11:02 AM EDT us Generic External Data Provider LAB BLOOD ORDERAB LES Final Result Performing Organization Address City/[facility]/ZIP Co de Phone Number [facility] [address] [place] [phone] * (ABNORMAL) Comprehensive Metabolic Panel (02/07/2025 11:02 AM EDT) Sodium 141 135 - 145 mmol/L [facility] Potassium 4.8 3.3 - 5.1 mmol/L [facility] Chloride 110(H) 96 - 108 mmol/L [facility] Carbon Dioxide 23 22 - 29 mmol/L [facility] Anion Gap 13 12 - 20 [facility] Urea Nitrogen (BUN) 12 9 - 16 mg/dL [facility] Creatinine, Serum 1.00 0.5 - 1.4 mg/dL [facility] Estimated Glomerular Filt Rate 54 [facility] Comment:Chronic Kidney Disea se: Estimated GFR < 60 mL/min/1.17b7Qftfam Kidney Disease: Estimated GFR < 15 mL/min/1.73m2 Glucose 75 60 - 115 mg/dL [facility] Calcium 9.2 8.4 - 10.2 mg/dL [facility] Bilirubin, Total 0.8 0.0 - 1.0 mg/dL [facility] Aspartate Amino Transferase 259(H) 5 - 31 U/L [facility] Alanine Aminotransferase 235(H) 0 - 31 U/L [facility] Total Protein 7.1 6.5 - 8.0 g/dL [facility] Albumin Level 4.2 3.5 - 5.0 g/dL [facility] Alkaline Phosphatase 119(H) 39 - 117 U/L [facility] 02/07/2025 11:0 2 AM EDT 02/07/2025 11:02 AM EDT us Generic External Data Provider LAB BLOOD ORDERAB LES Final Result Performing Organization Address City/[facility]/ZIP Co de Phone Number [facility] [address] [place] [phone] * (ABNORMAL) Urinalysis, Complete, with Reflex to Culture (02/07/2025 10:53 AM EDT) Color Urine Dark Yellow [facility] Appearance Urine Cloudy [facility] PH 5.5 5.0 - 9.0 [facility] Glucose Urine UA >=1000(A) Negative mg/dL [facility] Urine Blood Small (1+)(A) Negative [facility] Specific [place] - Urine >=1.030(H) 1.005 - 1.025 [facility] Urine Protein 100 (2+)(A) Neg-Trace mg/dL [facility] Urine Ketones Negative Negative mg/dL [facility] Nitrite Urine Negative Negative [facility] Leukocyte Esterase Urine Negative Negative [facility] RBC Urine 6-10(A) 0 - 2 /HPF [facility] Urine WBC 0-5 0 - 5 /HPF [facility] Urine Squamous Epithelial Cell 0-2 0 - 2 /HPF [facility] Other Crystals Urine Present [facility] Comment:Calcium carbonate cr ystals noted Urine Bacteria None Seen None Seen [facility] Hyaline Casts, Urine 3-5 0 - 2 /LPF [facility] 02/07/2025 10:5 3 AM EDT 02/07/2025 11:23 AM EDT Narrative [facility] - 02/07/2025 11:58 AM EDT Urine, Clean Catch us Generic External Data Provider LAB URINE ORDERAB LES Final Result [facility] [address] [place] [phone] * (ABNORMAL) Urinalysis w/reflex microscopic (02/07/2025 10:53 AM EDT) Color Urine Dark Yellow [facility] Appearance Urine Cloudy [facility] PH 5.5 5.0 - 9.0 [facility] Glucose Urine UA >=1000(A) Negative mg/dL [facility] Urine Blood Small (1+)(A) Negative [facility] Specific [place] - Urine >=1.030(H) 1.005 - 1.025 [facility] Urine Protein 100 (2+)(A) Neg-Trace mg/dL [facility] Urine Ketones Negative Negative mg/dL [facility] Nitrite Urine Negative Negative [facility] Leukocyte Esterase Urine Negative Negative [facility] 02/07/2025 10:5 3 AM EDT 02/07/2025 11:23 AM EDT Narrative [facility] - 02/07/2025 11:40 AM EDT Urine, Clean Catch us Generic External Data Provider LAB URINE ORDERAB LES Final Result Performing Organization Address City/State/[facility] Co de Phone Number [facility] [address] [place] [phone] * Lipid Panel, Standard (12/09/2024 8:53 AM EDT) Triglycerides 72 <150 mg/dL [facility] Comment:Desirable Triglyceri de: less than 150 mg/dLBorderline High Triglyceride 150-199 mg/dLHigh Triglyceride: 200-499 mg/dLVery High Triglyceride: greater than or equal to 5OO mg/dL Cholesterol 113 <200 mg/dL [facility] Comment:Desirable Cholestero l: less than 200 mg/dLBorderline High Cholesterol: 200-239 mg/dLHigh Cholesterol: greater than 239 mg/dL LDL Cholesterol Calculated 51 <100 mg/dL [facility] Comment:Desirable LDL: less than 100 mg/dLNear Optimal/Above Optimal LDL: 110- 129 mg/dLBorderline High LDL: 130-159 mg/dLHigh LDL: 160-189 mg/dLVery High LDL: greater than or equal to 190 mg/dL HDL Cholesterol 48 >40 mg/dL [facility] Comment:Desirable HDL: great er than 40 mg/dL Note: This HDL assay may give artificially low results in patients with liver disease. Blood Venous blood specimen / Unknown 12/09/2024 8:53 AM EDT 12/09/2024 11:08 AM EDT us Mary Rivera MD LAB BLOOD ORDERABLES Final Result Performing Organization Address [facility]/ZIP Co de Phone Number [facility] [address] [place] [phone] * Hepatitis Panel, General (09/30/2024 8:24 AM EDT) Hepatitis A IgM Nonreactive Nonreactive [facility] Comment:IgM antibodies to LAZCANO V not detected; does not exclude earlyacute or recovered HAV infection. ~Hepatitis B Surface Antibody NONREACTIVE Nonreactive [facility] Comment:Nonreactive: < 8.00 mIU/mL Hepatitis B Core Antibody Nonreactive Nonreactive [facility] Hepatitis C Antibody Nonreactive Nonreactive [facility] Comment:Antibodies to HCV no t detected; does not exclude early acuteHCV infection. Hepatitis B Surface Ag Negative Negative [facility] 09/30/2024 8:24 AM EDT 09/30/2024 8:24 AM EDT us Generic External Data Provider LAB BLOOD ORDERAB LES Final Result Performing Organization Address [facility] Co de Phone Number [facility] [address] [place] [phone] * Colonoscopy (02/16/2023) us Historical Provider HEALTH MAINTENANCE Final Result * BI Mammogram Screening Tomosynthesis Bilateral (01/08/2023 12:20 PM EDT) Anatomical Region Laterality Modality Breast Bilateral Mammography 01/08/2023 12:2 0 PM EDT Narrative 01/30/2023 10:10 AM EDT [facility] [address] [place] [address] Mammography Report Signed Patient: Hayley Marc MR#: [id number] : 1950 Acct:[id number] Age/Sex: 72 / F ADM Date: 01/08/23 Loc: HO.MAMMO Attending Dr: Mary Rivera MD Ordering Physician: Mary Rod MD Results: Date of Service: 01/08/23 Follow Up: Procedure(s): MM tomosynthesis screening BI Accession Number(s): [id number] cc: Mary Rod MD EXAMINATION: MM SCREENING [...] in OV> 01/30/23 1007 DD/ 1220 TD/TT: Ore Grader: Procedure Note Donotuseinterpreter, Image - [facility]/30/20[facility] [address] [place] [address] Mammography Report Signed Patient: Slade MarcaMR#: [id number] : 2Acct:[id number] Age/Sex: 72 / FADM Date: 01/08/23 Loc: HO.MAMMO Attending Dr: Mary Rivera MD Ordering Physician: Mary Rod MDResults: Date of Service: 01/08/23Follow Up: Procedure(s): MM tomosynthesis screening BI Accession Number(s): [id number] cc: Mary Rod MD EXAMINATION: MM SCREENING [...] in OV> 01/30/23 1007 DD/ 1220 TD/TT: Ore Grader: Mary Rivera MD IMG BI PROCEDURES Kar peter Result - Final from Last 3 Months or Most Recently Relevant to Health Maintenance Insurance [facility] [employer] OPTIONS (HMO D-SNP) REECE DUMAS [id number] Care Teams Linux Kernel Developer Relationship Specialty Start Date End Date Mary Rod MD [address] [place] [phone] PCP - General Family Medicine 02/07/22
--- OUTSIDE RECORDS SUMMARY | 2025-04-19 08:33 | XMS_ITS | Encounter Summary ---
Author Organization [employer] Address [address] [facility] 7t [place] [address] Care Team Providers Care Logistics Research Engineer Name Role Phone Mary Rod MD Primary Care Provide r Encounter Details Date Type Department Care Team (Late st Contact Info) Description 03/24/2023 Abstract [facility] [address] [place], [place] [phone] Tonia Cardoza Social History Tobacco Use Types [...] Description 05/15/2025 9:30 AM EST Office Visit [facility] [address] [place], [place] [phone] Mika Tonya, OD [address] [place] [address] 06/02/2025 11:00 AM EST Office Visit [facility] [address] [place] [address] Mary Rod MD [address] [place] [address] documented as of this encounter Goals Goal [...] documented as of this encounter Care Teams Logistics Research Engineer Relationship Specialty Start Date End Date Mary Rod MD [address] [place], [place] [phone] PCP - General Family Medicine 02/07/22 [facility] 11/16/24 01/15/25 documented as of this encounter
--- OUTSIDE RECORDS SUMMARY | 2025-04-19 08:33 | XMS_ITS | Encounter Summary ---
Author Organization [employer] Address [address] [place] [address] 7t [place] [address] Care Team Providers Care Board Liner Operator Name Role Phone Mary Rod MD Primary Care Provide r Encounter Details Date Type Department Care Team (Late st Contact Info) Description 11/12/2022 [facility] Health Information Management [address] [place] [address] Mary Rod MD [address] [place] [address] Social History Tobacco Use Types Packs/Day Years [...] [facility] [address] [place] [address] Tonya Brennan, OD [address] [place] [address] 06/02/2025 11:00 AM EST Office Visit [facility] [address] [place], [place] [phone] Mary Rod MD [address] [place], [place] [phone] documented as of this encounter Goals Goal [...] documented as of this encounter Care Teams Board Liner Operator Relationship Specialty Start Date End Date Mary Rod MD [address] [place] [address] PCP - General Family Medicine 02/07/22 [facility] 11/16/24 01/15/25 documented as of this encounter
--- OUTSIDE RECORDS SUMMARY | 2025-04-19 08:33 | XMS_ITS | Encounter Summary ---
Author Organization [employer] Address [address] [facility] [address]t [place] [address] Care Team Providers Care Dry Cell Assembly Machine Tender Name Role Phone Mary Rod MD Primary Care Provide r Reason for Visit * Reason Onset Date Comments Med Refill 10/12/2024 Encounter Details Date Type Department Care Team ([facility] st Contact Info) Description 10/12/2024 Telephone [facility] [address] [place], [place] [phone] Mary Rod MD [address] [place], [place] [phone] Med Refill Social History Tobacco Use Types [...] Nassar LPN - 10/12/2024 8:36 AM EDT CLINICAL OFFICE TECHNICIAN checked on 10/12/24 Ambien last filled on 08/04/24 by Mariaelena Yan. * Telephone Encounter - Michael Fabian - 10/12/2024 8:30 AM EDT TC from pt requesting medication refill. Medications needing refill : zolpidem (Ambien) 10 MG tablet To be sent to: [facility] - [place], [place] - [address] [place] [address] documented in this encounter Plan of Treatment Upcoming Encounters Date Type Department Care Team (Late st Contact Info) Description 05/15/2025 9:30 AM EST Office Visit [facility] [address] [place] [address] Tonya Brennan, OD [address] [place] [address] 06/02/2025 11:00 AM EST Office Visit [facility] [address] [place] [address] Mary Rod MD [address] [place] [address] documented as of this encounter Goals Goal [...] documented as of this encounter Care Teams Dry Cell Assembly Machine Tender Relationship Specialty Start Date End Date Mary Rod MD [address] [place] [address] PCP - General Family Medicine 02/07/22 [facility] 11/16/24 01/15/25 documented as of this encounter
--- OUTSIDE RECORDS SUMMARY | 2025-04-19 08:33 | XMS_ITS | Encounter Summary ---
Author Organization [employer] Address 75 [facility] 7t [place] [address] Care Team Providers Care Bar Assistant Name Role Phone Mary Rod MD Primary Care Provide r Encounter Details Date Type Department Care Team ([facility] st Contact Info) Description 03/25/2023 Orders Only [facility]INE [address] [place], [place] [phone] ProviderLinsey MD Social History Tobacco Use Types [...] Description 05/15/2025 9:30 AM EST Office Visit [facility] OPTOMETRY [address] [place], [place] [phone] Tonya Brennan, OD [address] [place] [address] 06/02/2025 11:00 AM EST Office Visit [facility] MEDICINE [address] [place] [address] Mary Rod MD [address] [place], [place] [phone] documented as of this encounter Goals Goal [...] documented as of this encounter Care Teams Bar Assistant Relationship Specialty Start Date End Date Mary Rod MD [address] [place] [address] PCP - General Family Medicine 02/07/22 Tequila MCCURDYA 11/16/24 01/15/25 documented as of this encounter
--- OUTSIDE RECORDS SUMMARY | 2025-04-19 08:33 | XMS_ITS | Encounter Summary ---
Author Organization [employer] Address 75 [facility] 7t [place] [address] Care Team Providers Care Instrument Mechanic Weapons System Name Role Phone Mary Rod MD Primary Care Provide r Reason for Visit * Reason Comments Med Refill Encounter Details Date Type Department Care Team (Late st Contact Info) Description 04/18/2025 Refill [facility] MEDICINE 230 [place], [place] [phone] Mary Rod MD 230 [place] [address] Social History Tobacco Use Types Packs/Day Years [...] Description 05/15/2025 9:30 AM EST Office Visit [facility] OPTOMETRY [address] [place] [address] Tonya Brennan, OD 267 [place] [address] 06/02/2025 11:00 AM EST Office Visit [facility] MEDICINE [address] [place] [address] Mary Rod MD 230 [place] [address] documented as of this encounter Goals Goal [...] documented as of this encounter Care Teams Instrument Mechanic Weapons System Relationship Specialty Start Date End Date Mary Rod MD 230 [place] [address] PCP - General Family Medicine 02/07/22 documented as of this encounter
--- OUTSIDE RECORDS SUMMARY | 2025-04-19 08:34 | XMS_ITS | Encounter Summary ---
Author Organization [employer] Address 75 [facility] 7t [place] [address] Care Team Providers Care Cook Camp Name Role Phone Mary Rod MD Primary Care Provide r Reason for Visit * Reason Comments Med Refill Encounter Details Date Type Department Care Team ([facility] st Contact Info) Description 04/12/[address] [facility] MEDICINE 230 [place], [place] [phone] Mary Rod MD [address] [place] [address] Social History Tobacco Use Types Packs/Day Years [...] AM EST Office Visit [facility] OPTOMETRY [address] [place] [address] Tonya Brennan, OD [address] [place] [address] 06/02/2025 11:00 AM EST Office Visit [facility] MEDICINE 230 [place] [address] Mary Rod MD [address] [place] [address] documented as of this encounter Goals Goal [...] documented as of this encounter Care Teams Cook Camp Relationship Specialty Start Date End Date Mary Rod MD [address] [place] [address] PCP - General Family Medicine 02/07/22 documented as of this encounter
--- OUTSIDE RECORDS SUMMARY | 2025-04-19 08:34 | XMS_ITS | Encounter Summary ---
Author Organization [employer] Address 75 [facility] 7t [place] [address] Care Team Providers Care Behavioral Sciences Department Chair Name Role Phone Mary Rod MD Primary Care Provide r Reason for Visit * Reason Comments Med Refill Encounter Details Date Type Department Care Team (Late st Contact Info) Description 04/13/2023 Refill [facility] MEDICINE 230 [place], [place] [phone] Yara Tompkins MD 230 [place], [place] [phone] Social History Tobacco Use Types Packs/Day Years [...] Description 05/15/2025 9:30 AM EST Office Visit [facility] OPTOMETRY [address] [place] [address] Tonya Brennan, OD 267 [place] [address] 06/02/2025 11:00 AM EST Office Visit [facility] MEDICINE [address] [place] [address] Mary Rod MD 230 [place] [address] documented as of this encounter Goals Goal [...] documented as of this encounter Care Teams Behavioral Sciences Department Chair Relationship Specialty Start Date End Date Mary Rod MD 230 [place] [address] PCP - General Family Medicine 02/07/22 [place] [facility] 11/16/24 01/15/25 documented as of this encounter
--- OUTSIDE RECORDS SUMMARY | 2025-04-19 08:34 | XMS_ITS | Patient Health Record ---
Author Organization [facility] Address [address] [place] [address] Care Team Providers Care Supervisor Cleaning And Annealing Name Role Phone Rogelio TOWNSEND, Laurent Primary Care Provider Frank Hernandez Unavailable [phone] Charles Clemons Unavailable Unavailable Reason For Referral [...] Manage Prod Active Effexor XR Active Calcitonin ([place]) Active Fluticasone Propionate Active Colace 100 MG [...] Status Risk Notes Problem Slow transit constipation (64091354) Slow transit constipation (K59.01) Active confirmed Plan Of Treatment Future Test Test Name Order Date UPPER GI ENDOSCOPY 12/01/2012 COLONOSCOPY 12/01/2012 Insurance Providers Payer Name Payer Address Payer Phone Subscriber Number Group Number Insured Name Patient Relationship to Insured Coverage Start Date Coverage End Date [facility] [address] [place] [phone] [id number] AMARILIS ENRIQUEZ Self - patient is the insured MEDICAID OF [employer] [address] [place] [address] [id number] AMARILIS ENRIQUEZ Self - patient is the insured Medical (General) History Medical History History ICD Code NIDDM hypertension Denies NH,CVA,renal disease Colonoscopy in 08/2007 at [facility] C with Dr. Howe-1 tubular adenoma removed, but poor prep; F/U colonoscopy in 05/2008 at [facility] was negative and with an excellent prep as per the report asthma/bronchitis Depression Hypothyroidism hyperlipidemia GERD 02/2013-neg colonoscopy except diverticul osis and internal hemorrhoids 02/2013-EGD with a small HH and anatomy c /w her gastric bypass 04/2013 nd 12/2014-neg CT of abd/pelvis Chronic constipation Surgical History Surgery Date(Month/Year) cataracts gastric rhqpum-1125-pa [facility]-lost 100 # [facility] Shoulder appendectomy varicose vein stripping
--- OUTSIDE RECORDS SUMMARY | 2025-04-19 08:34 | XMS_ITS | Clinical Summary ---
Author Organization [facility] Address [address] [address] Care Team Providers Care Crane Follower Name Role Phone Natalee Rooney MD Primary Care Provider [phone] Allergies Active Allergy Reactions Criticality Noted Date [...] Visit [facility] [address] [place] [address] Rober Acharya MD [address] [facility] [address] [place] [address] Health Maintenance Due Date Last Done Comments [...] 04/23/2021, 04/26/2017, 04/05/2012, Additional history exists Insurance [facility] ([id number]) [facility] ([id number]) Care Teams Crane Follower Relationship Specialty Start Date End Date Natalee Rooney MD PCP - General Family Medicine 02/05/21
== END 2025-04-19 08:23 | disposition home or self-care (01) ==
LOC: HO.US 08:22
PROVIDERS: PCP Internal Medicine; Visit Provider Nurse Practitioner
DX: E03.9 Hypothyroidism, unspecified (principal); R79.89 Other specified abnormal findings of blood chemistry
CPT/HCPCS: 76536

== ENCOUNTER → 2025-04-19 08:24 | Outpatient (BNV) | payer OTHER, SELFPAY | PROVIDERS: PCP Internal Medicine; Visit Provider Radiology Diagnostic Radiology | DX: E03.9 Hypothyroidism, unspecified (principal) | CPT/HCPCS: 76536 ==

== ENCOUNTER 2025-04-24 10:03 | Outpatient (REF) | payer OTHER, SELFPAY ==
[2025-04-24 10:55] LABS: Appearance Urine Clear; Glucose Urine UA >=1000 mg/dL (Negative); PH 5.5 (5.0-9.0); Specific Gravity - Urine 1.025 (1.005-1.025); UMIC TRIGGER UACC YES
--- OUTSIDE RECORDS SUMMARY | 2025-04-24 11:44 | XMS_ITS | Encounter Summary ---
Author Organization [employer] Address 75 [facility] 7t [place] [address] Care Team Providers Care Rodding Anode Worker Name Role Phone Mary Rod MD Primary Care Provide r Reason for Visit * Reason Onset Date Comments Med Refill 10/12/2024 Encounter Details Date Type Department Care Team ([facility] st Contact Info) Description 10/12/2024 Telephone [facility] MEDICINE 230 [place], [place] [phone] Mary Rod MD 230 [place], [place] [phone] Med Refill Social History Tobacco Use Types [...] Nassar LPN - 10/12/2024 8:36 AM EDT DRAFTSPERSON checked on 10/12/24 Ambien last filled on 08/04/24 by Mariaelena Yan. * Telephone Encounter - Michael Fabian - 10/12/2024 8:30 AM EDT TC from pt requesting medication refill. Medications needing refill : zolpidem (Ambien) 10 MG tablet To be sent to: [facility] - [place], [place] - [address] [place] [address] documented in this encounter Plan of Treatment Upcoming Encounters Date Type Department Care Team (Late st Contact Info) Description 05/15/2025 9:30 AM EST Office Visit [facility] OPTOMETRY 267 [place] [address] Tonya Brennan, OD 267 [place] [address] 06/02/2025 11:00 AM EST Office Visit [facility] MEDICINE 230 [place] [address] Mary Rod MD 230 [place] [address] documented as of this encounter Goals Goal [...] documented as of this encounter Care Teams Rodding Anode Worker Relationship Specialty Start Date End Date Mary Rod MD 230 [place] [address] PCP - General Family Medicine 02/07/22 [facility] 11/16/24 01/15/25 documented as of this encounter
--- OUTSIDE RECORDS SUMMARY | 2025-04-24 11:44 | XMS_ITS | Clinical Summary ---
Author Organization [facility] Facility Address [address] [address] Care Team Providers Care Rn Cardiology Name Role Phone Natalee Rooney MD Primary Care Provider [phone] Allergies Active Allergy Reactions Criticality Noted Date [...] Visit [facility] [address] [place] [address] Rober Acharya MD [address] [facility] 204 [place] [address] Health Maintenance Due Date Last Done Comments [...] 04/23/2021, 04/26/2017, 04/05/2012, Additional history exists Insurance [facility] ([id number]) [facility] ([id number]) Care Teams Rn Cardiology Relationship Specialty Start Date End Date Natalee Rooney MD PCP - General Family Medicine 02/05/21
--- OUTSIDE RECORDS SUMMARY | 2025-04-24 11:44 | XMS_ITS | Encounter Summary ---
Author Organization [employer] Address 75 [facility] 7t [place] [address] Care Team Providers Care Saloonkeeper Name Role Phone Mary Rod MD Primary Care Provide r Encounter Details Date Type Department Care Team ([facility] st Contact Info) Description 03/25/2023 Orders Only [facility] MEDICINE [address] [place], [place] [phone] ProviderLinsey MD Social History Tobacco Use Types [...] AM EST Office Visit [facility] OPTOMETRY [address] [place], [place] [phone] Tonya Brennan, OD 267 [place] [address] 06/02/2025 11:00 AM EST Office Visit [facility] MEDICINE [address] [place] [address] Mary Rod MD 230 [place], [place] [phone] documented as of this encounter Goals Goal [...] documented as of this encounter Care Teams Saloonkeeper Relationship Specialty Start Date End Date Mary Rod MD 230 [place] [address] PCP - General Family Medicine 02/07/22 Tequila MCCURDYA 11/16/24 01/15/25 documented as of this encounter
--- OUTSIDE RECORDS SUMMARY | 2025-04-24 11:44 | XMS_ITS | Encounter Summary ---
Author Organization [employer] Address 75 [facility] 7t [place] [address] Care Team Providers Care Enameler Name Role Phone Mary Rod MD Primary Care Provide r Reason for Visit * Reason Comments Med Refill Encounter Details Date Type Department Care Team (Late st Contact Info) Description 04/13/2023 Refill [facility] MEDICINE 230 [place], [place] [phone] Yara Tompkins MD 230 [place], [place] [phone] Social History Tobacco Use Types Packs/Day Years [...] Description 05/15/2025 9:30 AM EST Office Visit [facility] OPTOMETRY [address] [place] [address] Tonya Brennan, OD [address] [place] [address] 06/02/2025 11:00 AM EST Office Visit [facility] MEDICINE [address] [place] [address] Mary Rod MD [address] [place] [address] documented as of this encounter Goals Goal [...] documented as of this encounter Care Teams Enameler Relationship Specialty Start Date End Date Mary Rod MD 230 [place] [address] PCP - General Family Medicine 02/07/22 [place] [facility] 11/16/24 01/15/25 documented as of this encounter
--- OUTSIDE RECORDS SUMMARY | 2025-04-24 11:44 | XMS_ITS | Encounter Summary ---
Author Organization [employer] Address 75 [facility] 7t [place] [address] Care Team Providers Care Medical Intern Name Role Phone Mary Rod MD Primary Care Provide r Encounter Details Date Type Department Care Team (Late st Contact Info) Description 03/24/2023 Abstract [facility] MEDICINE [address] [place], [place] [phone] Tonia Cardoza Social History Tobacco Use Types [...] Description 05/15/2025 9:30 AM EST Office Visit [facility] OPTOMETRY 267 [place], [place] [phone] Mika Tonya, OD 267 [place] [address] 06/02/2025 11:00 AM EST Office Visit [facility] MEDICINE [address] [place] [address] Mary Rod MD 230 [place] [address] documented as of this encounter Goals Goal [...] documented as of this encounter Care Teams Medical Intern Relationship Specialty Start Date End Date Mary Rod MD 230 [place], [place] [phone] PCP - General Family Medicine 02/07/22 [place] [facility] 11/16/24 01/15/25 documented as of this encounter
--- OUTSIDE RECORDS SUMMARY | 2025-04-24 11:44 | XMS_ITS | Encounter Summary ---
Author Organization [employer] Address 75 [facility] 7t [place] [address] Care Team Providers Care Forensic Structural Engineer Name Role Phone Mary Rod MD Primary Care Provide r Reason for Visit * Reason Comments Med Refill Encounter Details Date Type Department Care Team ([facility] st Contact Info) Description 04/12/2025 Refill [facility] MEDICINE 230 [place], [place] [phone] Mary Rod MD 230 [place] [address] Social History Tobacco Use Types Packs/Day Years [...] Description 05/15/2025 9:30 AM EST Office Visit [facility] OPTOMETRY [address] [place] [address] Tonya Brennan, OD [address] [place] [address] 06/02/2025 11:00 AM EST Office Visit [facility] MEDICINE 230 [place] [address] Mary Rod MD 230 [place] [address] documented as of this encounter Goals Goal [...] documented as of this encounter Care Teams Forensic Structural Engineer Relationship Specialty Start Date End Date Mary Rod MD 230 [place] [address] PCP - General Family Medicine 02/07/22 documented as of this encounter
--- OUTSIDE RECORDS SUMMARY | 2025-04-24 11:44 | XMS_ITS | Encounter Summary ---
Author Organization [employer] Address [address] [facility] 7t [place] [address] Care Team Providers Care Security Delivery Specialist Name Role Phone Mary Rod MD Primary Care Provide r Reason for Visit * Reason Comments Med Refill Encounter Details Date Type Department Care Team (Late st Contact Info) Description 04/18/2025 Refill [facility] MEDICINE 230 [place], [place] [phone] Mary Rod MD [address] [place] [address] Social History Tobacco Use Types Packs/Day Years [...] Description 05/15/2025 9:30 AM EST Office Visit [facility] OPTOMETRY 267 [place] [address] Tonya Brennan, OD 267 [place] [address] 06/02/2025 11:00 AM EST Office Visit [facility] MEDICINE 230 [place] [address] Mary Rod MD 230 [place] [address] documented as of this encounter Goals Goal [...] documented as of this encounter Care Teams Security Delivery Specialist Relationship Specialty Start Date End Date Mary Rod MD [address] [place] [address] PCP - General Family Medicine 02/07/22 documented as of this encounter
--- OUTSIDE RECORDS SUMMARY | 2025-04-24 11:44 | XMS_ITS | Encounter Summary ---
Author Organization [employer] Address [address] [place] [address] 7t [place] [address] Care Team Providers Care Director Of Coding Name Role Phone Mary Rod MD Primary Care Provide r Encounter Details Date Type Department Care Team (Late st Contact Info) Description 11/12/2022 [facility] Health Information Management [address] [place] [address] Mary Rod MD [address] [place] [address] Social History Tobacco Use Types Packs/Day Years [...] AM EST Office Visit [facility] OPTOMETRY [address] [place] [address] Tonya Brennan, OD [address] [place] [address] 06/02/2025 11:00 AM EST Office Visit [facility] MEDICINE 230 [place], [place] [phone] Mary Rod MD 230 [place], [place] [phone] documented as of this encounter Goals Goal [...] of this encounter Care Teams Director Of Coding Relationship Specialty Start Date End Date Mary Rod MD 230 [place] [address] PCP - General Family Medicine 02/07/22 [place] [facility] 11/16/24 01/15/25 documented as of this encounter
--- OUTSIDE RECORDS SUMMARY | 2025-04-24 11:44 | XMS_ITS | Encounter Summary ---
Author Organization [employer] Address 75 [facility] 7t [place] [address] Care Team Providers Care Landscaping Crew Leader Name Role Phone Mary Rod MD Primary Care Provide r Encounter Details Date Type Department Care Team (Late st Contact Info) Description 04/24/2025 Orders Only GENERIC EXTERNAL DATA DEPARTMENT Provider, [...] Description 05/15/2025 9:30 AM EST Office Visit [facility] OPTOMETRY [address] [place] [address] TarkaTonya, OD 267 [place] [address] 06/02/2025 11:00 AM EST Office Visit [facility] MEDICINE 230 [place] [address] Mary Rod MD 230 [place] [address] documented as of this encounter Goals Goal [...] URINALYSIS, COMPLETE, WITH REFLEX TO CULTURE Routine 04/24/2025 10:18 AM EST documented in this encounter Results * (ABNORMAL) Urinalysis, Complete, with Reflex to Culture (04/24/2025 10:18 AM EST) Color Urine Yellow [facility] Appearance Urine Clear [facility] PH 5.5 5.0 - 9.0 [facility] Glucose Urine UA >=1000(A) Negative mg/dL [facility] Urine Blood Trace(A) Negative [facility] Specific Hunter - Urine 1.025 1.005 - 1.025 [facility] Urine Protein Trace Neg-Trace mg/dL [facility] Urine Ketones Negative Negative mg/dL [facility] Nitrite Urine Negative Negative [facility] Leukocyte Esterase Urine Negative Negative [facility] RBC Urine 0-2 0 - 2 /HPF [facility] Urine WBC 0-5 0 - 5 /HPF [facility] Urine Squamous Epithelial Cell 0-2 0 - 2 /HPF [facility] Urine Bacteria None Seen None Seen [facility] Hyaline Casts, Urine 0-2 0 - 2 /LPF [facility] 04/24/2025 10:1 8 AM EST 04/24/2025 10:44 AM EST Narrative [facility] - 04/24/2025 11:02 AM EST Urine, Clean Catch us Generic External Data Provider LAB URINE ORDERAB LES Final Result Performing Organization Address City/State/[facility] Co de Phone Number [facility] [address] [place] [phone] documented in this encounter Visit Diagnoses Not on filedocumented in this encounter Additional Health Concerns Assessment Noted Time PHQ-9 Depression Total Score: 8 03/10/20 25 9:34 AM EDT documented as of this encounter Care Teams Landscaping Crew Leader Relationship Specialty Start Date End Date Mary Rod MD [address] [place] [address] PCP - General Family Medicine 02/07/22 documented as of this encounter
--- OUTSIDE RECORDS SUMMARY | 2025-04-24 11:44 | XMS_ITS | Clinical Summary ---
Author Organization [employer] Address [address] [place] [address] 7[address] [place] [address] Care Team Providers Care Shirring Machine Operator Automatic Name Role Phone Mary Rod MD Primary [...] TIMES DAILY 05/08/2 024 Active Multiple Vitamins-Iron (Tab-A-Star/Iron/ Beta Carotene) tablet Take 1 tablet by mouth every morning with food Active cyanocobalamin (Vitamin B-12) 1000 MCG tablet Take 1,000 mcg by mouth Once per day. Active pancrelipase, Ule-Uelm-Hhbd, (Creon) 33658-05702 units capsuleIndication s:Pancreatic insufficiency TAKE 1 CAPSULE [...] 100 g 1 025 Active nystatin (Mycostatin) [id number] UNIT/GM powderIndications :Intertrigo APPLY TO THE AFFECTED AREA(S) TOPICALLY TWICE DAILY 60 g 1 025 Active gabapentin (Neurontin) 600 MG tabletIndications [...] morning. 30 tablet 11 Active Farxiga 10 MGIndications:Typ e 2 diabetes mellitus with chronic kidney disease, without long-term current use of insulin, unspecified CKD stage ([facility]) TAKE 1 TABLET BY MOUTH EVERY MORNING 30 tablet 2 Active topiramate (Topamax) 25 MG tablet TAKE 1 TABLET BY MOUTH EVERY EVENING 30 tablet 2 Active white petrolatum-minera l oil (Lacri-Lube) ointment ophthalmic ointmentIndicatio ns:Dry eyes, bilateral Apply 1 Application. to both eyes if needed for dry eyes. 3.5 g Active Blood Glucose Monitoring Suppl (FreeStyle Gorham Lite) w/Device kitIndications: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 (HCC) Use to test blood sugar 1 times daily 1 kit Active Alcohol Swabs (Alcohol Prep) 70 % padsIndications:D iabetic nephropathy associated with type 2 diabetes mellitus (HCC) USE DIRECTED ONCE DAILY 100 each 3 025 Active montelukast (Singulair) 10 MG tablet TAKE 1 TABLET BY MOUTH AT BEDTIME 30 tablet 3 Active montelukast (Singulair) 10 MG tablet TAKE 1 TABLET BY MOUTH AT BEDTIME 30 tablet 3 025 2024 Discontinued Alcohol Swabs 70 % padsIndications:D iabetic nephropathy associated with type 2 diabetes mellitus (HCC) Use to test blood sugar 1 times daily 100 each 025 2024 Discontinued Active Problems Problem Noted [...] encounter 03/10/2025 Overview (03/10/2025): Tramadol pain contract avlpyiv1204/10/2022 IBS (irritable bowel syndrome) 03/10/2025 Slow transit [...] with specialist Coronary artery disease invo lving [place] coronary artery of [place] heart 05/20/2024 Assessment & Plan (03/10/2025 1:07 PM EDT): I refer patient to cardiology, she was being seen at [place] but would like to be referred at the [place] area due to transportation issues Ecchymoses, spontaneous 02/02/2024 [...] Duoneb NBZ but 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 Hyperkalemia 09/30/2023 Assessment & Plan [...] Encounters Date Type Department Care Team Description 04/24/2025 Orders Only GENERIC EXTERNAL DATA DEPARTMENT Provider, Generic External Data 04/18/2025 Refill [facility] [address] [place] [address] Mary Rod MD 04/12/2025 Refill [facility] [address] [place] [address] Mary Rod MD 03/30/2025 Refill [facility] MEDICINE [address] [place] [address] Mary Rod MD Diabetic nephropathy associated with type 2 diabetes mellitus (HCC) 03/27/2025 Telephone [facility] [address] [place] [address] Mary Rod MD dec recall 03/23/2025 Telephone [facility] [address] [place] [address] Mary Rod MD Medication Question 03/23/2025 Refill [facility] [address] [place] [address] Mary Rod MD Diabetic nephropathy associated with type 2 diabetes mellitus (HCC) 03/20/2025 Orders Only GENERIC EXTERNAL DATA DEPARTMENT Provider, Generic External Data 03/16/2025 1:15 PM EDT Office Visit [facility] [address] [place] [address] Tonya Brennan, OD Dry eyes, bilateral (Primary Dx) 03/16/2025 Travel 03/16/2025 Refill [facility] [address] [place] [address] Mary Rod MD Type 2 diabetes mellitus with chronic kidney disease, without long-term current use of insulin, unspecified CKD stage ([facility]) 03/10/2025 9:45 AM EDT Office Visit [facility] [address] [place] [address] Mary Rod MD Coronary artery disease involving [place] coronary artery of [place] heart, unspecified whether angina present (Primary Dx); Type 2 diabetes mellitus with chronic kidney disease, without long-term current use of insulin, unspecified CKD stage ([facility]/HCC); Vertigo; Pre-syncope; Palpitations; Encounter for screening mammogram for malignant neoplasm of breast; Encounter for immunization 03/10/2025 Travel 03/08/2025 Telephone [facility] [address] [place] [address] Mary Rod MD chart prep 03/01/2025 Patient Outreach [facility] [address] [place] [address] Mary Rod MD Pre-visit Planning (SDOH screening [...] seasonal, injecta ble, preservative free 04/05/2012 Novel [id number] 05/14/2016 Pfizer Covid-19 Vaccine 12+ 06/18/2023 Pneumococcal [...] Description 05/15/2025 9:30 AM EST Office Visit [facility] [address] [place] [address] Tonya Brennan, OD [address] [place] [address] 06/02/2025 11:00 AM EST Office Visit [facility] [address] [place] [address] Mary Rod MD [address] [place] [address] Health Maintenance Due Date Last Done Comments [...] TO CULTURE Routine 04/24/2025 10:18 AM EST US THYROID Routine 04/19/2025 8:42 AM EST XR WRIST 3+ VIEWS LEFT Routine 5 [...] Reflex to Culture (04/24/2025 10:18 AM EST) Only the most recent of2 resultswithin the time period is included. Color Urine Yellow [facility] Appearance Urine Clear [facility] PH 5.5 5.0 - 9.0 [facility] Glucose Urine UA >=1000(A) Negative mg/dL [facility] Urine Blood Trace(A) Negative [facility] Specific [place] - Urine 1.025 1.005 - 1.025 [facility] Urine Protein Trace Neg-Trace mg/dL [facility] Urine Ketones Negative Negative mg/dL [facility] Nitrite Urine Negative Negative [facility] Leukocyte Esterase Urine Negative Negative [facility] RBC Urine 0-2 0 - 2 /HPF [facility] Urine WBC 0-5 0 - 5 /HPF [facility] Urine Squamous Epithelial Cell 0-2 0 - 2 /HPF [facility] Urine Bacteria None Seen None Seen [facility] Hyaline Casts, Urine 0-2 0 - 2 /LPF [facility] 04/24/2025 10:1 8 AM EST 04/24/2025 10:44 AM EST Narrative [facility] - 04/24/2025 11:02 AM EST Urine, Clean Catch us Generic External Data Provider LAB URINE ORDERAB LES Final Result [facility] [address] [place] [address] [phone] * US Thyroid (04/19/2025 8:42 AM EST) Anatomical Region Laterality Modality Head, Neck Ultrasound 04/19/2025 8:42 AM EST Narrative 04/19/2025 9:09 AM EST [address] [address] Ultrasound Report Signed Patient: Hayley Marc MR#: [id number] : 1950 Acct:[id number] Age/Sex: 74 / F ADM Date: 04/19/25 Loc: HO.US Attending Dr: Aniya FISH Ordering Physician: Aniya Barahona Date of Service: 04/19/25 Procedure(s): US thyroid Accession Number(s): [id number] cc: Mary Rod MD; Aniya Barahona Reason for Exam: E03.9 - Hypothyroidism, unspecified EXAMINATION: US THYROID HISTORY: E03.9 - Hypothyroidism, unspecified TECHNIQUE: Real-time grayscale ultrasound imaging was performed and images were reviewed. COMPARISON: Comparison is made with the prior examination dated 07/07/2023. FINDINGS: SIZE: The right thyroid lobe measures 3.0 x 1.0 x 0.8 cm. The left thyroid lobe measures 2.9 x 0.9 x 0.9 cm. The isthmus measures 2 mm. FLOW: Flow to the gland is normal. ECHOGENICITY: The echotexture of the gland is homogeneous. NODULES: No nodules are identified. US/US thyroid IMPRESSION: Unremarkable thyroid ultrasound. ACR TI-RADS Guidelines TR1 (0 points): Benign. No follow-up or biopsy required TR2 (2 points): Not Suspicious. No biopsy or follow up indicated TR3 (3 points): Mildly Suspicious. FNA if >= 2.5 cm, Follow if >= 1.5 cm TR4 (4-6 points): Moderately Suspicious. FNA if >= 1.5 cm, Follow if >= 1.0 cm TR5 (>=7 points): Highly Suspicious. FNA if >= 1.0 cm, Follow if >= 0.5 cm Electronically signed by: Frank Andersen MD 04/19/2025 09:07 AM [facility] Dictated By: Frank Andersen MD Signed By: <Electronically signed by Frank Andersen MD in OV> 04/19/25 0907 DD/ 0842 TD/TT: 04/19/25 0848 Sustainability Director: Procedure Note Dondginterpreter, Image - 04/19/[address] [address] Ultrasound Report Signed Patient: Josselin MarcR#: [id number] : 1950cct:[id number] Age/Sex: 74 / FADM Date: 04/19/25 Loc: HO.US Attending Dr: Aniya FISH Ordering Physician: Aniya Barahona Date of Service: 04/19/25 Procedure(s): US thyroid Accession Number(s): [id number] cc: Mary Rod MD; Aniya Barahona Reason for Exam: E03.9 - Hypothyroidism, unspecified EXAMINATION: US THYROID HISTORY: E03.9 - Hypothyroidism, unspecified TECHNIQUE: Real-time grayscale ultrasound imaging was performed and images were reviewed. COMPARISON: Comparison is made with the prior examination dated 07/07/2023. FINDINGS: SIZE: The right thyroid lobe measures 3.0 x 1.0 x 0.8 cm. The left thyroid lobe measures 2.9 x 0.9 x 0.9 cm. The isthmus measures 2 mm. FLOW: Flow to the gland is normal. ECHOGENICITY: The echotexture of the gland is homogeneous. NODULES: No nodules are identified. US/US thyroid IMPRESSION: Unremarkable thyroid ultrasound. ACR TI-RADS Guidelines TR1 (0 points): Benign. No follow-up or biopsy required TR2 (2 points): Not Suspicious. No biopsy or follow up indicated TR3 (3 points): Mildly Suspicious. FNA if >= 2.5 cm, Follow if >= 1.5 cm TR4 (4-6 points): Moderately Suspicious. FNA if >= 1.5 cm, Follow if >= 1.0 cm TR5 (>=7 points): Highly Suspicious. FNA if >= 1.0 cm, Follow if >= 0.5 cm Electronically signed by: Frank Andersen MD 04/19/2025 09:07 AM EST RP Dictated By: Frank Andersen MD Signed By: <Electronically signed by Frank Andersen MD in OV> 04/19/25 0907 DD/ 0842 TD/TT: 04/19/25 0848 Sustainability Director: us [facility] External Provider IMG US PROCEDURES Final Result * XR Wrist 3+ Views Left (04/07/2025 11:08 AM EDT) Anatomical Region Laterality Modality Upper Extremities, Wrist Left Radiogr aphic Imaging 04/07/2025 11:0 8 AM EDT Narrative 04/07/2025 11:50 AM EDT [facility] [address] [place] [address] XRay Report Signed Patient: Hayley Marc MR#: [id number] : 1950 Acct:[id number] Age/Sex: 74 / F ADM Date: 04/07/25 Loc: TYREL Attending Dr: Gerardo NEWELL Ordering Physician: Gerardo Brizuela Date of Service: 04/07/25 Procedure(s): XR wrist LT min 3V Accession Number(s): [id number] cc: Gerardo Brizuela; Mary Rod MD Reason [...] Adames MD 04/07/2025 11:47 AM EDT RP Workstation: [id number] Dictated By: Chris Adames MD Signed By: <Electronically signed by Chris Adames MD in OV> 04/07/25 1147 DD/ 1108 TD/TT: 04/07/25 1110 Sustainability Director: Procedure Note Donotuseinterpreter, Image - 04/07/2025 [facility] [address] [place] [address] [address] [place] [address] XRay Report Signed Patient: Susan Marc#: [id number] : 1950cct:[id number] Age/Sex: 74 / FADM Date: 04/07/25 Loc: TYREL Attending Dr: Gerardo NEWELL Ordering Physician: Gerardo rBizuela Date of Service: 04/07/25 Procedure(s): XR wrist LT min 3V Accession Number(s): [id number] cc: Gerardo Brizuela; Mary Rod MD Reason [...] 04/07/25 1147 DD/ 1108 TD/TT: 04/07/25 1110 Sustainability Director: [facility] External Provider IMG XR PROCEDURES Final Result * (ABNORMAL) TSH with Reflex to Free T4 (03/20/2025 10:51 AM EDT) Only the most recent of3 resultswithin the time period is included. TSH reflex Free T4 0.03(L) 0.32 - 4.0 uIU/mL [facility] 03/20/2025 10:5 1 AM EDT 03/20/2025 10:51 AM EDT Generic External Data Provider LAB BLOOD ORDERAB LES Final Result Performing Organization Address City/[facility]/ZIP Co de Phone Number [facility] [address] [place] [phone] * T4, Free (03/20/2025 10:51 AM EDT) Only the most recent of3 resultswithin the time period is included. Free T4 (Free Thyroxine) 1.37 0.71 - 1.85 ng/dL [facility] 03/20/2025 10:5 1 AM EDT 03/20/2025 10:51 AM EDT Generic External Data Provider LAB BLOOD ORDERAB LES Final Result Performing Organization Address City/[facility]/ZIP Co de Phone Number [facility] [address] [place] [phone] * (ABNORMAL) POCT Glucose (03/10/2025 9:56 AM EDT) [facility] Glucose Blood, POC 202(A) 60 - 200 mg/dL QC Media Lot # [id number] Lot# Expiration Date Blood Capillary blood specimen / Unknown 03/10/2025 9:56 AM EDT Mary Rivera MD POINT OF CARE TEST EN TER/EDIT ORDERABLES Final Result * Thyroid Peroxidase Antibodies (02/16/2025 12:12 PM EDT) [facility] Thyroid Peroxidase Antibodies 1 <9 IU/mL [facility] Comment:THIS TEST WAS PERFOR MED AT:[employer] [place] [phone] HO MD 02/16/2025 12:1 2 PM EDT 02/16/2025 12:12 PM EDT Generic External Data Provider LAB BLOOD ORDERAB LES Final Result [facility] [address] [place] [phone] * (ABNORMAL) CBC auto differential (02/07/2025 11:02 AM EDT) [facility] White Blood Count 4.3(L) 4.8 - 10.8 X10*3/uL [facility] Red Blood Count 4.32 4.20 - 5.50 X10*6/uL [facility] Hemoglobin 12.8 12.0 - 16.0 g/dl [facility] Hematocrit 41.2 37.0 - 47.0 % [facility] Mean Corpuscular Volume 95.4 80.0 - 98.0 fL [facility] Mean Corpuscular Hemoglobin 29.6 27.0 - 33.0 pg [facility] Mean Corpuscular HGB Conc 31.1 31.0 - 35.0 g/dl [facility] Red Cell Distribution Width 15.3 11.0 - 16.0 % [facility] Platelet Count 282 160 - 400 X10*3/uL [facility] Mean Platelet Volume 10.8 9.4 - 12.3 fL [facility] Neutrophils Percent Auto 49.2 45 - 73 % [facility] Imm Gran Pct Auto 0.2 0.0 - 0.4 % [facility] Lymphocytes Percent Auto 35.9 20 - 40 % [facility] Monocytes Percent Auto 11.2(H) 2 - 11 % [facility] Eosinophils Percent Auto 2.6 0 - 4 % [facility] Basophils Percent Auto 0.9 0 - 2 % [facility] NRBC Pct Auto 0.0 0.0 - 0.2 /100WBC [facility] Neutrophils Absolute Auto 2.1 2.0 - 8.3 x10*3/uL [facility] Imm Gran Abs Auto 0.01 0.00 - 0.03 X10*3/uL [facility] Lymphocytes Absolute Auto 1.5 1.2 - 4.9 X10*3/uL [facility] Monocytes Absolute Auto 0.5 0.1 - 1.2 X10*3/uL [facility] Eosinophils Absolute Auto 0.1 0.0 - 0.4 X10*3/uL [facility] Basophils Absolute Auto 0.0 0.0 - 0.2 X10*3/uL [facility] NRBC Abs Auto 0.000 0.0 - 0.012 X10*3/uL [facility] 02/07/2025 11:0 2 AM EDT 02/07/2025 11:02 AM EDT us Generic External Data Provider LAB BLOOD ORDERAB LES Final Result [facility] [address] [place] [phone] * (ABNORMAL) Prothrombin Time-INR (02/07/2025 11:02 AM EDT) Prothrombin Time 9.9(L) 10.9 - 12.4 SEC [facility] INTERNATIONAL NORM RATIO 0.9 0.9 - 1.1 [facility] Comment:INTERNATIONAL NORMAL IZED RATIO (INR) [...] ORDERAB LES Final Result Performing Organization Address City/[facility]/ZIP Co de Phone Number [facility] [address] [place] [phone] * B Type Natriuretic Peptide (BNP) (02/07/2025 11:02 AM EDT) B Type Natriuretic Peptide 77 <100 pg/mL [facility] 02/07/2025 11:0 2 AM EDT 02/07/2025 11:02 AM EDT Generic External Data Provider LAB BLOOD ORDERAB LES Final Result Performing Organization Address [facility]/ZIP Co de Phone Number [facility] [address] [place] [phone] * (ABNORMAL) Hemoglobin A1c (02/07/2025 11:02 AM EDT) Hemoglobin A1c 6.7(H) <6.0 % [facility] Comment:Hemoglobin A1C Refer ence Range Adults: 4.8 - 6.0 % Non diabetic: < 6.0 % Goal: < 7.0 %Additional Action Suggested: > 8.0 %Note: Hemoglobin A1c results are invalid for patients with abnormal amounts of HbF. Blood transfusions may impact the HbA1c concentration in the patient sample. Estimated Average Glucose 146 mg/dL [facility] Comment:eAG = Estimated ave rage glucose which is %A1C expressed asaverage glucose, using the formula of the P3M-YbjedpnMsxyysn Glucose study (ADAG), Diabetes Care, Vol.31,#8,Jan. 2007 02/07/2025 11:0 2 AM EDT 02/07/2025 11:02 AM EDT us Generic External Data Provider LAB BLOOD ORDERAB LES Final Result [facility] [address] [place] [phone] * (ABNORMAL) Comprehensive Metabolic Panel (02/07/2025 11:02 AM EDT) Sodium 141 135 - 145 mmol/L [facility] Potassium 4.8 3.3 - 5.1 mmol/L [facility] Chloride 110(H) 96 - 108 mmol/L [facility] Carbon Dioxide 23 22 - 29 mmol/L [facility] Anion Gap 13 12 - 20 [facility] Urea Nitrogen (BUN) 12 9 - 16 mg/dL [facility] Creatinine, Serum 1.00 0.5 - 1.4 mg/dL [facility] Estimated Glomerular Filt Rate 54 [facility] Comment:Chronic Kidney Disea se: Estimated GFR < 60 mL/min/1.06a0Pgvgcn Kidney Disease: Estimated GFR < 15 mL/min/1.73m2 Glucose 75 60 - 115 mg/dL [facility] Calcium 9.2 8.4 - 10.2 mg/dL [facility] Bilirubin, Total 0.8 0.0 - 1.0 mg/dL [facility] Aspartate Amino Transferase 259(H) 5 - 31 U/L [facility] Alanine Aminotransferase 235(H) 0 - 31 U/L [facility] Total Protein 7.1 6.5 - 8.0 g/dL [facility] Albumin Level 4.2 3.5 - 5.0 g/dL [facility] Alkaline Phosphatase 119(H) 39 - 117 U/L [facility] 02/07/2025 11:0 2 AM EDT 02/07/2025 11:02 AM EDT Generic External Data Provider LAB BLOOD ORDERAB LES Final Result Performing Organization Address [facility] Co de Phone Number [facility] [address] [place] [phone] * (ABNORMAL) Urinalysis w/reflex microscopic (02/07/2025 10:53 AM EDT) Color Urine Dark Yellow [facility] Appearance Urine Cloudy [facility] PH 5.5 5.0 - 9.0 [facility] Glucose Urine UA >=1000(A) Negative mg/dL [facility] Urine Blood Small (1+)(A) Negative [facility] Specific [place] - Urine >=1.030(H) 1.005 - 1.025 [facility] Urine Protein 100 (2+)(A) Neg-Trace mg/dL [facility] Urine Ketones Negative Negative mg/dL [facility] Nitrite Urine Negative Negative [facility] Leukocyte Esterase Urine Negative Negative [facility] 02/07/2025 10:5 3 AM EDT 02/07/2025 11:23 AM EDT Narrative [facility] - 02/07/2025 11:40 AM EDT Urine, Clean Catch Generic External Data Provider LAB URINE ORDERAB LES Final Result Performing Organization Address [facility]/ZIP Co de Phone Number [facility] [address] [place] [phone] * Lipid Panel, Standard (12/09/2024 8:53 AM EDT) Triglycerides 72 <150 mg/dL [facility] Comment:Desirable Triglyceri de: less than 150 mg/dLBorderline High Triglyceride 150-199 mg/dLHigh Triglyceride: 200-499 mg/dLVery High Triglyceride: greater than or equal to 5OO mg/dL Cholesterol 113 <200 mg/dL [facility] Comment:Desirable Cholestero l: less than 200 mg/dLBorderline High Cholesterol: 200-239 mg/dLHigh Cholesterol: greater than 239 mg/dL LDL Cholesterol Calculated 51 <100 mg/dL [facility] Comment:Desirable LDL: less than 100 mg/dLNear Optimal/Above Optimal LDL: 110- 129 mg/dLBorderline High LDL: 130-159 mg/dLHigh LDL: 160-189 mg/dLVery High LDL: greater than or equal to 190 mg/dL HDL Cholesterol 48 >40 mg/dL [facility] Comment:Desirable HDL: great er than 40 mg/dL Note: This HDL assay may give artificially low results in patients with liver disease. Blood Venous blood specimen / Unknown 12/09/2024 8:53 AM EDT 12/09/2024 11:08 AM EDT us Mary Rivera MD LAB BLOOD ORDERABLES Final Result Performing Organization Address City/[facility] Co de Phone Number [facility] [address] [place] [address] [phone] * Hepatitis Panel, General (09/30/2024 8:24 AM EDT) Hepatitis A IgM Nonreactive Nonreactive [facility] Comment:IgM antibodies to [place]O V not detected; does not exclude earlyacute or recovered HAV infection. ~Hepatitis B Surface Antibody NONREACTIVE Nonreactive [facility] Comment:Nonreactive: < 8.00 mIU/mL Hepatitis B Core Antibody Nonreactive Nonreactive [facility] Hepatitis C Antibody Nonreactive Nonreactive [facility] Comment:Antibodies to HCV no t detected; does not exclude early acuteHCV infection. Hepatitis B Surface Ag Negative Negative [facility] 09/30/2024 8:24 AM EDT 09/30/2024 8:24 AM EDT us Generic External Data Provider LAB BLOOD ORDERAB LES Final Result Performing Organization Address City/[facility] Co de Phone Number [facility] [address] [place] [phone] * Hm Colonoscopy (02/16/2023) us Historical Provider HEALTH MAINTENANCE Final Result * BI Mammogram Screening Tomosynthesis Bilateral (01/08/2023 12:20 PM EDT) Anatomical Region Laterality Modality Breast Bilateral Mammography 01/08/2023 12:2 0 PM EDT Narrative 01/30/2023 10:10 AM EDT [address] [place] [address] Mammography Report Signed Patient: Hayley Marc MR#: [id number] : 1950 Acct:[id number] Age/Sex: 72 / F ADM Date: 01/08/23 Loc: HO.MAMMO Attending Dr: Mary Rivera MD Ordering Physician: Mary Rod MD Results: Date of Service: 01/08/23 Follow Up: Procedure(s): MM tomosynthesis screening BI Accession Number(s): [id number] cc: Mary Rod MD EXAMINATION: MM SCREENING [...] in OV> 01/30/23 1007 DD/ 1220 TD/TT: Sustainability Director: Procedure Note Donotuseinterpreter, Image - 01/30/2023 [facility]'[address] [place] [address] Mammography Report Signed Patient: Susan Marc#: MM [id number] : 2Acct:[id number] Age/Sex: 72 / FADM Date: 01/08/23 Loc: HO.MAMMO Attending Dr: Mary Rivera MD Ordering Physician: Mary Rodesults: Date of Service: 01/08/23Follow Up: Procedure(s): MM tomosynthesis screening BI Accession Number(s): [id number] cc: Mary Rod MD EXAMINATION: MM SCREENING [...] in OV> 01/30/23 1007 DD/ 1220 TD/TT: Sustainability Director: Mary Rivera MD IMG BI PROCEDURES Kar peter Result - Final from Last 3 Months or Most Recently Relevant to Health Maintenance Insurance [facility] [employer] (O D-SNP) Care Teams Shirring Machine Operator Automatic Relationship Specialty Start Date End Date Mary Rod MD [address] [place] [phone] PCP - General Family Medicine 02/07/22
== END 2025-04-24 10:04 | disposition home or self-care (01) ==
LOC: HO.LAB 10:03
PROVIDERS: PCP Internal Medicine; Visit Provider Nurse Practitioner
DX: R30.0 Dysuria (principal); R20.0 Anesthesia of skin; R20.2 Paresthesia of skin; R63.4 Abnormal weight loss
CPT/HCPCS: 81001

== ENCOUNTER 2025-06-12 08:53 | Outpatient (REF) | payer OTHER, SELFPAY ==
--- OUTSIDE RECORDS SUMMARY | 2025-06-12 09:03 | XMS_ITS | Encounter Summary ---
Author Organization [employer] Address [address] [facility] 7t [place] [address] Care Team Providers Care Gun Synchronizer Name Role Phone Mary Rod MD Primary Care Provide r Reason for Visit * Reason Comments Med Refill Encounter Details Date Type Department Care Team ([facility] st Contact Info) Description 06/11/2025 Refill [facility] MEDICINE [address] [place], [place] [phone] Mary Rod MD [address] [place] [address] Social History Tobacco Use Types Packs/Day Years [...] Care Team (Late st Contact Info) Description 07/28/2025 9:30 AM EST Office Visit [facility] MEDICINE [address] [place] [address] Mary Rod MD [address] [place] [address] 09/13/2025 2:30 PM EDT Office Visit [facility] OPTOMETRY [address] [place] [address] Tonya Brennan OD [address] [place] [address] documented as of this encounter Goals Goal Patient Goal Type Associated Problems Recent Progress Patient-Stated? Author Record your blood pressure once per day Blood Pressure No Giovany Lin, Sindi Note: When you receive your new BP monitor Short-term: Promote adherence to treatment regimen General No Giovany Lin, PharmD Help patients manage their type 2 diabetes Care Plan Help patients manage their type 2 diabetes No Tonya Brennan OD Weekly blood pressure task Care Plan Weekly blood pressure task No Tonya Brennan OD Help patients manage their type 2 diabetes Care Plan Help patients manage their type 2 diabetes No Tarka, Tonya, OD Patient has diabetic eye disease Care Plan Patient has diabetic eye disease No Tarka, Tonya, OD Help patients manage their type 2 diabetes Care Plan Help patients manage their type 2 diabetes No Tarka Tonya, OD Patient has chronic kidney disease Care Plan Patient has chronic kidney disease No TarkaStevenTonya, OD Weekly blood pressure task Care Plan Weekly blood pressure task No Tarka, Tonya, OD Weekly blood pressure task Care Plan Weekly blood pressure task No TarkaStevenTonya, OD Patient has diabetic eye disease Care Plan Patient has diabetic eye disease No Tarka, Tonya, OD Patient has diabetic eye disease Care Plan Patient has diabetic eye disease No Tarka, Tonya, OD Patient has chronic kidney disease Care Plan Patient has chronic kidney disease No Tarka Tonya, OD Patient has chronic kidney disease Care Plan Patient has chronic kidney disease No TarkaStevenTonya, OD Weekly blood pressure task Care Plan Weekly blood pressure task No Ladi Ruvalcaba Weekly blood pressure task Care Plan Weekly blood pressure task No Ladi Ruvalcaba Weekly blood pressure task Care Plan Weekly blood pressure task No Ladi Ruvalcaba Patient has diabetic eye disease Care Plan Patient has diabetic eye disease No Ladi Ruvalcaba Patient has diabetic eye disease Care Plan Patient has diabetic eye disease No Ladi Ruvalcaba Patient has diabetic eye disease Care Plan Patient has diabetic eye disease No Ladi Ruvalcaba Patient has chronic kidney disease Care Plan Patient has chronic kidney disease No Ladi Ruvalcaba Patient has chronic kidney disease Care Plan Patient has chronic kidney disease No Ladi Ruvalcaba Patient has chronic kidney disease Care Plan Patient has chronic kidney disease No Ladi Ruvalcaba documented as of this encounter Visit Diagnoses Not on filedocumented in this encounter Additional Health Concerns Active Problems Noted Date Diagnosed Date Help patients manage their type 2 diabetes 05/15 Weekly blood pressure task 05/15/2025 Help patients manage their type 2 diabetes 05/15 Patient has diabetic eye disease 05/15/2025 Help patients manage their type 2 diabetes 05/15 Patient has chronic kidney disease 05/15/2025 Weekly blood pressure task 05/15/2025 Weekly blood pressure task 05/15/2025 Patient has diabetic eye disease 05/15/2025 Patient has diabetic eye disease 05/15/2025 Patient has chronic kidney disease 05/15/2025 Patient has chronic kidney disease 05/15/2025 Weekly blood pressure task 05/24/2025 Weekly blood pressure task 05/24/2025 Weekly blood pressure task 05/24/2025 Patient has diabetic eye disease 05/24/2025 Patient has diabetic eye disease 05/24/2025 Patient has diabetic eye disease 05/24/2025 Patient has chronic kidney disease 05/24/2025 Patient has chronic kidney disease 05/24/2025 Patient has chronic kidney disease 05/24/2025 Assessment Noted Time PHQ-9 Depression Total Score: 8 03/10/20 25 9:34 AM EDT documented as of this encounter Care Teams Gun Synchronizer Relationship Specialty Start Date End Date Mary Rod MD [address] [place] [address] PCP - General Family Medicine 02/07/22 documented as of this encounter
--- OUTSIDE RECORDS SUMMARY | 2025-06-12 09:03 | XMS_ITS | Encounter Summary ---
Author Organization [employer] Address 75 [facility] 7t [place] [address] Care Team Providers Care Validation Specialist Name Role Phone Mary Rod MD Primary Care Provide r Encounter Details Date Type Department Care Team (Late st Contact Info) Description 03/24/2023 Abstract [facility] MEDICINE [address] [place], [place] [phone] Tonia Cardoza Social History Tobacco Use Types [...] Description 07/28/2025 9:30 AM EST Office Visit [facility] MEDICINE [address] [place] [address] Mary Rod MD [address] [place] [address] 09/13/2025 2:30 PM EDT Office Visit [facility] OPTOMETRY [address] [place] [address] TarkaTonya, OD [address] [place] [address] documented as of this encounter Goals Goal [...] documented as of this encounter Care Teams Validation Specialist Relationship Specialty Start Date End Date Mary Rod MD [address] [place] [address] PCP - General Family Medicine 02/07/22 [facility] 11/16/24 01/15/25 documented as of this encounter
--- OUTSIDE RECORDS SUMMARY | 2025-06-12 09:03 | XMS_ITS | Encounter Summary ---
Author Organization [employer] Address 75 [facility] 7t [place] [address] Care Team Providers Care Biosolids Management Technician Name Role Phone Mary Rod MD Primary Care Provide r Encounter Details Date Type Department Care Team ([facility] st Contact Info) Description 03/25/2023 Orders Only [facility] MEDICINE [address] [place], [place] [phone] ProviderLinsey MD Social History Tobacco Use Types [...] Description 07/28/2025 9:30 AM EST Office Visit [facility] MEDICINE [address] [place] [address] Mary Rod MD [address] [place] [address] 09/13/2025 2:30 PM EDT Office Visit [facility] OPTOMETRY [address] [place] [address] TarkaTonya, OD [address] [place] [address] documented as of this encounter Goals Goal [...] documented as of this encounter Care Teams Biosolids Management Technician Relationship Specialty Start Date End Date Mary Rod MD [address] [place] [address] PCP - General Family Medicine 02/07/22 Tequila MACIAS 11/16/24 01/15/25 documented as of this encounter
--- OUTSIDE RECORDS SUMMARY | 2025-06-12 09:03 | XMS_ITS | Encounter Summary ---
Author Organization [employer] Address [address] [place] [address] 7t [place] [address] Care Team Providers Care Fisher Trot Line Name Role Phone Mary Rod MD Primary Care Provide r Encounter Details Date Type Department Care Team (Late st Contact Info) Description 11/12/2022 [facility] [employer] Management [address] [place], [place] [phone] Mary Rod MD [address] [place] [address] Social History Tobacco Use Types Packs/Day Years [...] 9:30 AM EST Office Visit [facility] MEDICINE [address] [place] [address] Mary Rod MD [address] [place] [address] 09/13/2025 2:30 PM EDT Office Visit [facility] OPTOMETRY [address] [place], [place] [phone] Tonya Brennan, OD [address] [place] [address] documented as of this encounter Goals Goal [...] documented as of this encounter Care Teams Fisher Trot Line Relationship Specialty Start Date End Date Mary Rod MD 230 [place], [place] [phone] PCP - General Family Medicine 02/07/22 [facility] 11/16/24 01/15/25 documented as of this encounter
--- OUTSIDE RECORDS SUMMARY | 2025-06-12 09:03 | XMS_ITS | Encounter Summary ---
Author Organization [employer] Address [address] [facility] 7t [place] [address] Care Team Providers Care Excel Vba Developer Name Role Phone Mary Rod MD Primary Care Provide r Reason for Visit * Reason Onset Date Comments Med Refill 10/12/2024 Encounter Details Date Type Department Care Team ([facility] st Contact Info) Description 10/12/2024 Telephone [facility] MEDICINE [address] [place], [place] [phone] Mary Rod MD [address] [place], [place] [phone] Med Refill Social History Tobacco Use Types [...] Nassar LPN - 10/12/2024 8:36 AM EDT GLASS INSERTER checked on 10/12/24 Ambien last filled on 08/04/24 by Mariaelena Yan. * Telephone Encounter - Michael Fabian - 10/12/2024 8:30 AM EDT TC from pt requesting medication refill. Medications needing refill : zolpidem (Ambien) 10 MG tablet To be sent to: [facility] - [place], [place] - [address] [place] [address] documented in this encounter Plan of Treatment Upcoming Encounters Date Type Department Care Team (Late st Contact Info) Description 07/28/2025 9:30 AM EST Office Visit [facility] MEDICINE [address] [place] [address] Mary Rod MD [address] [place] [address] 09/13/2025 2:30 PM EDT Office Visit [facility] OPTOMETRY [address] [place] [address] Tonya Brennan, OD [address] [place] [address] documented as of this encounter Goals Goal [...] documented as of this encounter Care Teams Excel Vba Developer Relationship Specialty Start Date End Date Mary Rod MD [address] [place] [id number] PCP - General Family Medicine 02/07/22 [facility] 11/16/24 01/15/25 documented as of this encounter
--- OUTSIDE RECORDS SUMMARY | 2025-06-12 09:04 | XMS_ITS | Encounter Summary ---
Author Organization [employer] Address [address] [facility] 7t [place] [address] Care Team Providers Care Vehicle Leasing And Rental Manager Name Role Phone Mary Rod MD Primary Care Provide r Reason for Visit * Reason Comments Med Refill Encounter Details Date Type Department Care Team (Late st Contact Info) Description 04/13/2023 Refill [facility] MEDICINE [address] [place], [place] [phone] Yara Tompkins MD 230 [place], [place] [phone] Social History Tobacco Use Types Packs/Day Years [...] Description 07/28/2025 9:30 AM EST Office Visit [facility] MEDICINE 230 [place] [address] Mary Rod MD 230 [place] [address] 09/13/2025 2:30 PM EDT Office Visit [facility] OPTOMETRY [address] [place] [address] Tarka, Tonya, OD [address] [place] [address] documented as of this encounter Goals Goal [...] documented as of this encounter Care Teams Vehicle Leasing And Rental Manager Relationship Specialty Start Date End Date Mary Rod MD 230 [place] [address] PCP - General Family Medicine 02/07/22 [place] [facility] 11/16/24 01/15/25 documented as of this encounter
--- OUTSIDE RECORDS SUMMARY | 2025-06-12 09:04 | XMS_ITS | Encounter Summary ---
Author Organization [employer] Address 75 [facility] 7t [place] [address] Care Team Providers Care Addiction Medicine Physician Name Role Phone Mary Rod MD Primary Care Provide r Reason for Visit * Reason Comments Med Refill Encounter Details Date Type Department Care Team ([facility] st Contact Info) Description 04/12/2025 Refill [facility] MEDICINE [address] [place], [place] [phone] Mary Rod MD [address] [place] [address] Social History Tobacco Use Types Packs/Day Years [...] Description 07/28/2025 9:30 AM EST Office Visit [facility] MEDICINE [address] [place] [address] Mary Rod MD [address] [place] [address] 09/13/2025 2:30 PM EDT Office Visit [facility] OPTOMETRY [address] [place] [address] Tarmendoza Tonya, OD [address] [place] [address] documented as of this encounter Goals Goal [...] documented as of this encounter Care Teams Addiction Medicine Physician Relationship Specialty Start Date End Date Mary Rod MD [address] [place] [address] PCP - General Family Medicine 02/07/22 documented as of this encounter
--- OUTSIDE RECORDS SUMMARY | 2025-06-12 09:04 | XMS_ITS | Clinical Summary ---
Author Organization [facility]. Address [address] [address] Phone Care Team Providers Care U.S. Revenue Officer Name Role Phone Natalee Rooney MD Primary Care Provider [phone] Allergies Active Allergy Reactions Criticality Noted Date [...] Date Type 2 diabetes mellitus 01/26/2023 023 Chronic kidney disease, stage 2 (mild) 3 Acute nontraumatic kidney injury 01/19/2023 Overview (01/26/2023): Last Assessment & Plan: maintain good control of blood pressure and glucose Do not take NSAIDs Drink plenty of water Disorder of lumbar disc 07/15/2022 01/27/20 23 Overview (01/26/2023): S/p MILD procedure 06/2022 Last Assessment & Plan: I will generate prescription for recliner C/w tramadol C/w acetaminophen C/w lidocaine patches Stage 3a chronic kidney disease 01/07/2022 Diffuse spasm of esophagus 06/25/202101/26 Hypertensive renal disease 01/07/2021 Renal disorder due to type 2 diabetes mellitus 0 01/07/2021 Chronic kidney disease stage 2 12/29/2012 Essential hypertension 07/06/2012 3 Overview (01/26/2023): Last [...] prescriptions without first consulting health care provider Adult failure to thrive 12/11/2011 01/27/20 23 Diabetes mellitus 12/11/2011 01/26/2023 Overview (01/26/2023): Last Assessment & Plan: Controlled continue with same interventions Resolved Problems Problem Noted Date Diagnosed Date Resolved Date Left flank pain 01/07/2021 01/07/2021 Immunizations Immunization Administration Dates Next Due H1N1 Inj 05/14/2016 HPV, Quadrivalent 05/16/2009,01/31/2008,07/28/19 07 Hepatitis B 12/08/2024 Influenza (IM) Preservative Free 04/05/2012 Influenza Split 03/09/2013 Influenza Split High Dose Pr eservative Free IM 03/10/2025,08/18/2024,03/03/2017 Influenza Vaccine, Quadrival ent, Adjuvanted 03/04/2021 Influenza, Injectable, Madin Franca Canine Kidney, Preservative Free 08/23/2015 Influenza, Quadrivalent, Pre servative Free 03/19/2021,03/29/2019,03/30/2018,04/30 Influenza, Quadrivalent, Wit h Preservative 03/08/2015 Influenza, Unspecified 03/10/2022,2019,03/20/2014,04/07 Pneumococcal Conjugate 13-Valent 04/23/2021 Pneumococcal Polysaccharide 04/26/2017,1 ,04/17/2011,03/15 Shingrix 03/31/2022,01/28/2022 Td 04/07/2007 Tdap 08/27/2017 Zoster 03/31/2022,01/28/2022,03/21/2014 Family History Medical History Relation Comments Cancer [...] Care Team (Late st Contact Info) Description 07/10/2025 3:00 PM EST Office Visit [facility] [address] [place] [address] [place] [phone] Rober Acharya MD [address] [facility] [address] [place] [address] Health Maintenance Due Date Last Done Comments Breast Cancer Screening 1950 Colorectal Cancer Screening: Annual FOBT 11/14/2000 Colorectal Cancer Screening: Colonoscopy 11/14/2000 Colorectal Cancer Screening: Sigmoidoscopy 11/14/2000 Hepatitis B Vaccine (1 of 3 - Risk 3-dose series) 2011 12/08/2024 Diabetes: Pedal Pulse Checked 07/16/2020 Diabetes: Sensory Foot Exam 07/16/2020 Diabetes: Visual Foot Exam 07/16/2020 Diabetes: Hemoglobin A1C 05/10/2025 025, 08/12/2024, 01/07/2024 Diabetes: Ophthalmology Exam 03/16/2026 03/16/2025, 11/10/2024 Pneumococcal Vaccine: 50+ Years Completed 04/23/2021, 04/26/2017, 04/05/2012, Additional history exists Pneumococcal Vaccine: Peds ( 0 to 5 Years) and At-Risk Patients (6 to 49 Years) Discontinued 04/23/2021, 04/26/2017, 04/05/2012, Additional history exists Influenza Vaccine Completed 03/10/2025, , 03/10/2022, Additional history exists Insurance [facility] ([id number]) [facility] ([id number]) Care Teams U.S. Revenue Officer Relationship Specialty Start Date End Date Natalee Rooney MD [address] [place] [address] PCP - General Family Medicine 02/05/21
--- OUTSIDE RECORDS SUMMARY | 2025-06-12 09:04 | XMS_ITS | Patient Health Record ---
Author Organization [facility] Address [address] [place] [address] Care Team Providers Care Supervisor Scouring Pads Name Role Phone Rogelio TOWNSEND, Laurent Primary Care Provider Frank Hernandez Unavailable [phone] Charles Clemons Unavailable Unavailable Reason For Referral No Information Medications Medication SIG (Take, Route, Frequency, Duration) Notes Start Date End Date Status Glucose Active Ketoconazole Active MiraLax Miralax Powder as directed Orall y tid; Duration: 30 days Active clonazePAM Active Reguloid Active ProAir HFA Active Zolpidem Tartrate Ac tive MiraLax Miralax Powder as directed Orall y tid; Duration: 30 days Active Pantoprazole Sodium Active Linzess 145 MCG Capsule 2 capsules Orall y Once a day; Duration: 30 day(s) 02/09/2014 Active Crestor Active Colace 100 MG Capsule 1 capsule as neede d Orally bid; Duration: 30 day(s) Active metFORMIN HCl Active Colace 100 MG Capsule 1 capsule as neede d Orally bid; Duration: 30 day(s) Active Calcium Active MiraLax Miralax Powder as directed Orall y tid; Duration: 30 days Active Gabapentin Active Metoprolol & Diet Manage Prod Active Effexor XR Active Calcitonin ([place]) Active Fluticasone Propionate Active Colace 100 MG Capsule 1 capsule as neede d Orally bid; Duration: 30 day(s) Active Lisinopril Active Q-PAP Active Vitamin D Active Doc-Q-Lace 100mg capsule 1 capsule oraly twice a day for constipation; Duration: 30 days 11/11/2012 Active FreeStyle Lite Test Active Cyanocobalamin Activ e HYDROcodone-Acetaminophen BID Active Levothyroxine Sodium Active Social History Social History Additional Details Category Social Info Options Details Miscellaneous: Marital status: Occupation: unemployed Section Notes: Nonsmoker; no sig alcohol Nonsmoker; no sig alcohol Nonsmoker; no sig alcohol Nonsmoker; no sig alcohol Nonsmoker; no sig alcohol Problems Problem Type SNOMED Code ICD Code Onset Dates Problem Status W/U Status Risk Notes Problem Slow transit constipation (86991397) Slow transit constipation (K59.01) Active confirmed Plan Of Treatment Future Test Test Name Order Date UPPER GI ENDOSCOPY 12/01/2012 COLONOSCOPY 12/01/2012 Insurance Providers Payer Name Payer Address Payer Phone Subscriber Number Group Number Insured Name Patient Relationship to Insured Coverage Start Date Coverage End Date [facility] [address] [place] [address] [id number] AMARILIS ENRIQUEZ Self - patient is the insured [facility] [address] [place] [address] [id number] AMARILIS ENRIQUEZ Self - patient is the insured Medical (General) History Medical History History ICD Code NIDDM hypertension Denies OR,CVA,renal disease Colonoscopy in 08/2007 at [facility] C with Dr. Howe-Ranulfo tubular adenoma removed, but poor prep; F/U colonoscopy in 05/2008 at [facility] was negative and with an excellent prep as per the report asthma/bronchitis Depression Hypothyroidism hyperlipidemia GERD 02/2013-neg colonoscopy except diverticul osis and internal hemorrhoids 02/2013-EGD with a small HH and anatomy c /w her gastric bypass 04/2013 nd 12/2014-neg CT of abd/pelvis Chronic constipation Surgical History Surgery Date(Month/Year) cataracts gastric [id number] [facility]-lost 100 # CCY Shoulder appendectomy varicose vein stripping
--- OUTSIDE RECORDS SUMMARY | 2025-06-12 09:04 | XMS_ITS | Clinical Summary ---
Author Organization [employer] Address [address] [place] [address] [address] [place] [address] Care Team Providers Care Night Assistant Name Role Phone Mary Rod MD [...] tablet by mouth every morning with food 024 Active cyanocobalamin (Vitamin B-12) 1000 MCG tablet Take 1,000 mcg by mouth Once per day. Active pancrelipase, Fxu-Dubl-Grla, (Creon) 14342-44688 units capsuleIndication s:Pancreatic insufficiency TAKE 1 CAPSULE BY MOUTH FOUR TIMES DAILY WITH FOOD AND 1 CAPSULE WITH SNACKS DO NOT BREAK, CRUSH, DISSOLVE OR CHEW 120 capsule 3 024 Active Brilinta 90 MG tabletIndications :Essential hypertension TAKE 1 TABLET BY MOUTH TWICE DAILY IN THE MORNING AND IN THE EVENING 60 tablet 3 025 Active Trulicity 0.75 MG/0.5ML solution auto-injector INJECT ONE PEN (=0.75MG) SUBCUTANEOUSLY ONCE A WEEK DIRECTED 6 mL 3 05/31/20 25 11:32 AM EST 025 Active aspirin (Aspirin Low Dose) 81 [...] 100 g 1 025 Active nystatin (Mycostatin) 368530 UNIT/GM powderIndications :Intertrigo APPLY TO THE AFFECTED AREA(S) TOPICALLY TWICE DAILY 60 g 1 025 Active gabapentin (Neurontin) 600 MG tabletIndications :Spinal stenosis of lumbar region, unspecified whether neurogenic claudication present TAKE 1 TABLET BY MOUTH THREE TIMES DAILY IN THE MORNING, AT NOON, AND AT BEDTIME 90 tablet 2 025 Active metFORMIN XR (Glucophage-XR) 500 MG [...] sugar 1 times daily 100 each 12 05/31/20 25 11:32 AM EST 2025 Active Lancets miscIndications:D iabetic nephropathy associated with type 2 diabetes mellitus (HCC) Use to test blood sugar 1 times daily 100 each 2 Active metoprolol succinate XL (Toprol-XL) 50 MG 24 hr tabletIndications :Primary hypertension Take 0.5 tablets (25 mg) by mouth in the morning. 30 tablet 11 Active topiramate (Topamax) 25 MG tablet TAKE 1 TABLET BY MOUTH EVERY EVENING 30 tablet 2 Active white petrolatum-minera l oil (Lacri-Lube) ointment ophthalmic ointmentIndicatio ns:Dry eyes, bilateral Apply 1 Application. to both eyes if needed for dry eyes. 3.5 g Active Blood Glucose Monitoring Suppl (FreeStyle [place] Lite) w/Device kitIndications: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 (HCC) Use to test blood sugar 1 times daily 1 kit Active Alcohol Swabs (Alcohol Prep) 70 % padsIndications:D iabetic nephropathy associated with type 2 diabetes mellitus (HCC) USE DIRECTED ONCE DAILY 100 each 3 05/31/20 25 11:32 AM EST 025 Active montelukast (Singulair) 10 MG tablet TAKE 1 TABLET BY MOUTH AT BEDTIME 30 tablet 3 05/31/20 25 11:32 AM EST 025 Active Farxiga 10 MGIndications:Typ e 2 diabetes mellitus with chronic kidney disease, without long-term current use of insulin, unspecified CKD stage ([facility]) TAKE 1 TABLET BY MOUTH EVERY MORNING 30 tablet 2 Active lidocaine (Xylocaine) 5 % ointmentIndicatio ns:Closed fracture of distal end of left radius, unspecified fracture morphology, initial encounter Apply topically if needed for mild pain. 50 g 1 024 2024 Farxiga 10 MGIndications:Typ e 2 diabetes mellitus with chronic kidney disease, without long-term current use of insulin, unspecified CKD stage (HCC) TAKE 1 TABLET BY MOUTH EVERY MORNING 30 tablet 2 05/31/20 25 11:32 AM EST 025 2024 Discontinued Active Problems Problem Noted [...] encounter 03/10/2025 Overview (03/10/2025): Tramadol pain contract [id number]/2022 IBS (irritable bowel syndrome) 03/10/2025 Slow transit [...] with specialist Coronary artery disease invo lving [place] coronary artery of [place] heart 05/20/2024 Assessment & Plan (03/10/2025 1:07 PM EDT): I refer patient to cardiology, she was being seen at [facility] but would like to be referred at the [place] area due to transportation issues Ecchymoses, spontaneous [...] Duoneb NBZ but advise to see her animal researcher if needed -has apt w social economist in 12/2023 Hyperkalemia 09/30/2023 Assessment & Plan [...] Encounters Date Type Department Care Team Description 06/11/2025 Refill [facility] [address] [place] [address] Mary Rod MD 06/02/2025 Refill [facility] [address] [place] [address] Mary Rod MD Type 2 diabetes mellitus with chronic kidney disease, without long-term current use of insulin, unspecified CKD stage (HCC) 05/24/2025 Travel 05/24/2025 Patient Outreach [facility] [address] [place] [address] Mary Rod MD Pre-visit Planning (SDOH screening completed on 03/10/2025) 05/15/2025 Travel 04/24/2025 Orders Only GENERIC EXTERNAL DATA DEPARTMENT Provider, Generic External Data 04/18/2025 Refill [facility] [address] [place] [address] Mary Rod MD 04/12/2025 Refill [facility] [address] [place] [address] Mary Rod MD 03/30/2025 Refill [facility] [address] [place] [address] Mary Rod MD Diabetic nephropathy associated with type 2 diabetes mellitus (HCC) 03/27/2025 Telephone [facility] [address] [place] [address] Mary Rod MD dec recall 03/23/2025 Telephone [facility] [address] [place] [address] Mary Rod MD Medication Question 03/23/2025 Refill [facility] [address] [place] [address] Mary Rod MD Diabetic nephropathy associated with type 2 diabetes mellitus (HCC) 03/20/2025 Orders Only GENERIC EXTERNAL DATA DEPARTMENT Provider, Generic External Data 03/16/2025 1:15 PM EDT Office Visit [facility] [address] [place] [address] Joycemendoza Tonya, OD Dry eyes, bilateral (Primary Dx) 03/16/2025 Travel 03/16/2025 Refill [facility] [address] [place] [address] Mary Rod MD Type 2 diabetes mellitus with chronic kidney disease, without long-term current use of insulin, unspecified CKD stage (HCC) from Last 3 Months Immunizations Immunization [...] seasonal, injecta ble, preservative free 04/05/2012 Novel [id number] 05/14/2016 Pfizer Covid-19 Vaccine 12+ 06/18/2023 Pneumococcal [...] Description 07/28/2025 9:30 AM EST Office Visit [facility] [address] [place], [place] [phone] Mary Rod MD [address] [place] [address] 09/13/2025 2:30 PM EDT Office Visit [facility] [address] [place], [place] [phone] Tonya Brennan, OD [address] [place] [address] Health Maintenance Due Date Last Done Comments [...] patients manage their type 2 diabetes No TarXiao donaldsonica, OD Weekly blood pressure task Care Plan Weekly blood pressure task No TarSteven donaldsonTonya, OD Help patients manage their type 2 diabetes Care Plan Help patients manage their type 2 diabetes No TarSteven donaldsonTonya, OD Patient has diabetic eye disease Care Plan Patient has diabetic eye disease No Tarmendoza Tonya, OD Help patients manage their type 2 diabetes Care Plan Help patients manage their type 2 diabetes No Tarka Tonya, OD Patient has chronic kidney disease Care Plan Patient has chronic kidney disease No Tarmendoza, Tonya, OD Weekly blood pressure task Care Plan Weekly blood pressure task No Tarmendoza, Tonya, OD Weekly blood pressure task Care Plan Weekly blood pressure task No Tarmendoza Tonya, OD Patient has diabetic eye disease Care Plan Patient has diabetic eye disease No Tarka, Tonya, OD Patient has diabetic eye disease Care Plan Patient has diabetic eye disease No Tarka, Tonya, OD Patient has chronic kidney disease Care Plan Patient has chronic kidney disease No Tarka, Tonya, OD Patient has chronic kidney disease Care Plan Patient has chronic kidney disease No Tonya Brennan, REBECCA Weekly blood pressure task Care Plan Weekly [...] Plan Patient has diabetic eye disease No PegLadi Patient has chronic kidney disease Care Plan Patient has chronic kidney disease No Ladi Ruvalcaba Patient has chronic kidney disease Care Plan Patient has chronic kidney disease No Ladi Ruvalcaba Patient has chronic kidney disease Care Plan Patient has chronic kidney disease No Ladi Ruvalcaba Procedures Procedure Name Priority Date/Time Associated Diagnosis Comments URINALYSIS, COMPLETE, WITH REFLEX TO CULTURE Routine 04/24/2025 10:18 AM EST US THYROID Routine 04/19/2025 8:42 AM EST XR WRIST 3+ VIEWS LEFT Routine 11:08 AM EDT T4, FREE Routine 03/20/2025 10:51 AM EDT TSH W/REFLEX TO FT4 Routine 03/20/2025 1 0:51 AM EDT HEMOGLOBIN A1C Routine 02/07/2025 11:02 AM EDT LIPID PANEL, STANDARD Routine 12/09/2024 [...] (04/24/2025 10:18 AM EST) Color Urine Yellow [facility] Appearance Urine Clear [facility] PH 5.5 5.0 - 9.0 [facility] Glucose Urine UA >=1000(A) Negative mg/dL [facility] Urine Blood Trace(A) Negative [facility] Specific [place] - Urine 1.025 1.005 - 1.025 [facility] Urine Protein Trace Neg-Trace mg/dL [facility] Urine Ketones Negative Negative mg/dL [facility] Nitrite Urine Negative Negative [facility] Leukocyte Esterase Urine Negative Negative [facility] RBC Urine 0-2 0 - 2 /HPF [facility] Urine WBC 0-5 0 - 5 /HPF [facility] Urine Squamous Epithelial Cell 0-2 0 - 2 /HPF [facility] Urine Bacteria None Seen None Seen [facility] Hyaline Casts, Urine 0-2 0 - 2 /LPF [facility] 04/24/2025 10:1 8 AM EST 04/24/2025 10:44 AM EST Narrative [facility] - 04/24/2025 11:02 AM EST Urine, Clean Catch us Generic External Data Provider LAB URINE ORDERAB LES Final Result Performing Organization Address City/State/[facility] Co de Phone Number [facility] [address] [place] [phone] * US Thyroid (04/19/2025 8:42 AM EST) Anatomical Region Laterality Modality Head, Neck Ultrasound 04/19/2025 8:42 AM EST Narrative 04/19/2025 9:09 AM EST [address] [address] Ultrasound Report Signed Patient: Hayley Marc MR#: [id number] : 1950 Acct:[id number] Age/Sex: 74 / F ADM Date: 04/19/25 Loc: HO.US Attending Dr: Aniya FISH Ordering Physician: Aniya Barahona Date of Service: 04/19/25 Procedure(s): US thyroid Accession Number(s): [id number] cc: Mary Rod MD; Aniya Barahona Reason [...] Frank Andersen MD 04/19/2025 09:07 AM EST Dictated By: Frank Andersen MD Signed By: <Electronically signed by Frank Andersen MD in OV> 04/19/25 0907 DD/ 0842 TD/TT: 04/19/25 0848 Rabbler: Procedure Note Donotuseinterpreter, Image - 04/19/[address] [address] Ultrasound Report Signed Patient: Susan Marc#: [id number] : 2Acct:[id number] Age/Sex: 74 / FADM Date: 04/19/25 Loc: HO.US Attending Dr: Aniya FISH Ordering Physician: Aniya Barahona Date of Service: 04/19/25 Procedure(s): US thyroid Accession Number(s): [id number] cc: Mary Rod MD; Aniya Barahona Reason [...] signed by Frank Andersen MD in OV> 04/19/2507 DD/ 1 TD/TT: 04/19/25 0848 Rabbler: us [facility] External Provider IMG US PROCEDURES Final Result * XR Wrist 3+ Views Left (04/07/2025 11:08 AM EDT) Anatomical Region Laterality Modality Upper Extremities, Wrist Left Radiogr aphic Imaging 04/07/2025 11:0 8 AM EDT Narrative 04/07/2025 11:50 AM EDT [facility] [address] [place] [address] Drive [address] [place] [address] XRay Report Signed Patient: Hayley Marc MR#: [id number] : 1950 Acct:[id number] Age/Sex: 74 / F ADM Date: 04/07/25 Loc: HO.CAROLANNX Attending Dr: Gerardo NEWELL Ordering Physician: Gerardo Brizuela Date of Service: 04/07/25 Procedure(s): XR wrist LT min 3V Accession Number(s): [id number] cc: Gerardo Brizuela; Mary Rod MD Reason [...] 04/07/25 1147 DD/ 1108 TD/TT: 04/07/25 1110 Rabbler: Procedure Note Donotuseinterpreter, Image - 04/07/2025 [facility] [address] [place] [address] Drive [address] [place] [address] XRay Report Signed Patient: Josselin MarcR#: [id number] : 1950cct:[id number] Age/Sex: 74 / FADM Date: 04/07/25 [facility]: Gerardo NEWELL Ordering Physician: Gerardo Brizuela Date of Service: 04/07/25 Procedure(s): XR wrist LT min 3V Accession Number(s): [id number] cc: Gerardo Brizuela; Mary Rod MD Reason [...] 04/07/25 1147 DD/ 1108 TD/TT: 04/07/25 1110 Rabbler: [facility] External Provider IMG XR PROCEDURES Final Result * (ABNORMAL) TSH with Reflex to Free T4 (03/20/2025 10:51 AM EDT) TSH reflex Free T4 0.03(L) 0.32 - 4.0 uIU/mL [facility] 03/20/2025 10:5 1 AM EDT 03/20/2025 10:51 AM EDT Generic External Data Provider LAB BLOOD ORDERAB LES Final Result Performing Organization Address [facility] Co de Phone Number [facility] [address] [place] [phone] * T4, Free (03/20/2025 10:51 AM EDT) Free T4 (Free Thyroxine) 1.37 0.71 - 1.85 ng/dL [facility] 03/20/2025 10:5 1 AM EDT 03/20/2025 10:51 AM EDT Generic External Data Provider LAB BLOOD ORDERAB LES Final Result Performing Organization Address [facility] Co de Phone Number [facility] [address] [place] [phone] * (ABNORMAL) Hemoglobin A1c (02/07/2025 11:02 AM EDT) Hemoglobin A1c 6.7(H) <6.0 % [facility] Comment:Hemoglobin A1C Refer ence Range Adults: 4.8 - 6.0 % Non diabetic: < 6.0 % Goal: < 7.0 %Additional Action Suggested: > 8.0 %Note: Hemoglobin A1c results are invalid for patients with abnormal amounts of HbF. Blood transfusions may impact the HbA1c concentration in the patient sample. Estimated Average Glucose 146 mg/dL [facility] Comment:eAG = Estimated ave rage glucose which is %A1C expressed asaverage glucose, using the formula of the G0V-InjscdnFzudxoc Glucose study (ADAG), Diabetes Care, Vol.31,#8,Jan. 2007 02/07/2025 11:0 2 AM EDT 02/07/2025 11:02 AM EDT us Generic External Data Provider LAB BLOOD ORDERAB LES Final Result [facility] [address] [place] [phone] * Lipid Panel, Standard (12/09/2024 8:53 AM EDT) Triglycerides 72 <150 mg/dL [facility] Comment:Desirable Triglyceri de: less than 150 mg/dLBorderline High Triglyceride 150-199 mg/dLHigh Triglyceride: 200-499 mg/dLVery High Triglyceride: greater than or equal to 5OO mg/dL Cholesterol 113 <200 mg/dL [facility] Comment:Desirable Cholestero l: less than 200 mg/dLBorderline High Cholesterol: 200-239 mg/dLHigh Cholesterol: greater than 239 mg/dL LDL Cholesterol Calculated 51 <100 mg/dL [facility] Comment:Desirable LDL: less than 100 mg/dLNear Optimal/Above Optimal LDL: 110- 129 mg/dLBorderline High LDL: 130-159 mg/dLHigh LDL: 160-189 mg/dLVery High LDL: greater than or equal to 190 mg/dL HDL Cholesterol 48 >40 mg/dL [facility] Comment:Desirable HDL: great er than 40 mg/dL Note: This HDL assay may give artificially low results in patients with liver disease. Blood Venous blood specimen / Unknown 12/09/2024 8:53 AM EDT 12/09/2024 11:08 AM EDT us Mary Rivera MD LAB BLOOD ORDERABLES Final Result Performing Organization Address [facility] Co de Phone Number [facility] [address] [place] [phone] * Hepatitis Panel, General (09/30/2024 8:24 AM EDT) Hepatitis A IgM Nonreactive Nonreactive [facility] Comment:IgM antibodies to LAZCANO V not detected; does not exclude earlyacute or recovered HAV infection. ~Hepatitis B Surface Antibody NONREACTIVE Nonreactive [facility] Comment:Nonreactive: < 8.00 mIU/mL Hepatitis B Core Antibody Nonreactive Nonreactive [facility] Hepatitis C Antibody Nonreactive Nonreactive [facility] Comment:Antibodies to HCV no t detected; does not exclude early acuteHCV infection. Hepatitis B Surface Ag Negative Negative [facility] 09/30/2024 8:24 AM EDT 09/30/2024 8:24 AM EDT us Generic External Data Provider LAB BLOOD ORDERAB LES Final Result Performing Organization Address [facility] Co de Phone Number [facility] [address] [place] [phone] [phone] * Colonoscopy (02/16/2023) Historical Provider HEALTH MAINTENANCE Final Result * BI Mammogram Screening Tomosynthesis Bilateral (01/08/2023 12:20 PM EDT) Anatomical Region Laterality Modality Breast Bilateral Mammography 01/08/2023 12:2 0 PM EDT Narrative 01/30/2023 10:10 AM EDT [facility] [address] [place] [address] Mammography Report Signed Patient: Hayley Marc MR#: [id number] : 1950 Acct:[id number] Age/Sex: 72 / F ADM Date: 01/08/23 Loc: HO.MAMMO Attending Dr: Mary Rivera MD Ordering Physician: Mary Rod MD Results: Date of Service: 01/08/23 Follow Up: Procedure(s): MM tomosynthesis screening BI Accession Number(s): [id number] cc: Mary Rod MD EXAMINATION: MM SCREENING [...] in OV> 01/30/23 1007 DD/ 1220 TD/TT: Rabbler: Procedure Note Donotuseinterpreter, Image - 01/30/20[facility] [address] [place] [address] Mammography Report Signed Patient: Susan Marc#: MM [id number] : 2Acct:[id number] Age/Sex: 72 / FADM Date: 01/08/23 Loc: HO.MAMMO Attending Dr: Mary Rivera MD Ordering Physician: Mary Rod MDResults: Date of Service: 01/08/23Follow Up: Procedure(s): MM tomosynthesis screening BI Accession Number(s): [id number] cc: Mary Rod MD EXAMINATION: MM SCREENING [...] in OV> 01/30/23 1007 DD/ 1220 TD/TT: Rabbler: us Mary Rivera MD IMG BI PROCEDURES [place]eter Result - Final from Last 3 Months or Most Recently Relevant to Health Maintenance Additional Health Concerns Active Problems Noted Date [...] 05/24/2025 Patient has chronic kidney disease 05/24/2025 [facility] Care Teams Night Assistant Relationship Specialty Start Date End Date Mary Rod MD [address] [place] [phone] PCP - General Family Medicine 02/07/22
== END 2025-06-12 08:54 ==
LOC: HO.MAMMO 08:53
PROVIDERS: PCP Internal Medicine; Visit Provider Internal Medicine
DX: Z12.31 Encounter for screening mammogram for malignant neoplasm of breast (principal)
CPT/HCPCS: 77063; 77067

== ENCOUNTER → 2025-06-12 09:15 | Outpatient (BNV) | payer OTHER, SELFPAY | PROVIDERS: PCP Internal Medicine; Visit Provider Internal Medicine | DX: Z12.31 Encounter for screening mammogram for malignant neoplasm of breast (principal) | CPT/HCPCS: 77063; 77067 ==